=== PATIENT | male | born 1955 | race Caucasian/White ===

== ENCOUNTER 2017-07-11 14:33 | Emergency (ER) | payer MEDICAID, SELFPAY ==
[2017-07-11 14:34] VITALS: BP 145/79; PULSE 76; RESP 16; TEMP 36.5; O2SAT 97; BMI 24.5
--- NOTE | 2017-07-11 15:02 | CT_ITS ---
STUDY: CT BRAIN WITHOUT CONTRAST REASON FOR EXAM: Male, 62 years old. Right facial weakness with right facial droop. Slurred speech. RADIATION DOSAGE (If Supplied By Facility): CTDIvol = ( 44.99 ) mGy, DLP = ( 812.98 ) mGycm TECHNIQUE: Transaxial CT imaging of the brain was performed without administration of intravenous contrast material. Individualized dose optimization techniques were used for this CT. COMPARISON: Comparison is made with prior examination dated November 24, 2015. FINDINGS: Normal soft tissue structures. Normal calvarium. There is mild cerebral atrophy with widening of the extra-axial spaces and ventricular dilatation. Normal white matter tracts of the cerebral hemispheres. Normal basal ganglia and thalami. Normal brainstem. There is mild cerebellar atrophy. There is no intracranial hemorrhage. There are no findings of an acute ischemic infarction. Small mucosal polyp or cyst in the posterior aspect of the left maxillary sinus. CT/Brain/Head without Contrast IMPRESSION: Chronic involutional changes of the brain. Electronically Signed: Roscoe Coats MD at 15:42 EST Tel [phone], Service support ,
--- NOTE | 2017-07-11 15:09 | ED.DCSUM_ITS ---
- ER Visit Summary Date of Service: 07/11/17 Chief Complaint: Right facial drooping History of Present Illness: The patient is a 62 M presents with right facial droop pain occurring 2 days ago. Patient did not notice symptoms until today when he drink fluids and he was drooling. There is no paresthesias. No hemiparesis. On the phone they noted slurring. 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 Symptoms have all resolved. He is on Eliquis for history of atrial fibrillation. States he did miss 1 dose earlier this week, has been taken his medicines twice a day. No headache or visual changes. States his pain in his right eye. Denies any recent upper respiratory illness. No falls or head injuries. Physical Examination: General: Alert and oriented ?3, no acute distress HEENT: Normocephalic, atraumatic. Moist mucosa membranes. There is right-sided facial drooping. There is no forehead sparing. Patient unable to close his eyelid fully. Sensation is intact and symmetric bilaterally. Neck: supple, nontender. Cardiovascular: Irregular rate and rhythm, no murmurs Respiratory: Normal breath sounds, symmetric, no distress Abdomen: Soft, nontender, nondistended Extremities: Nontender, no edema, pulses intact ?4 Neuro: NIH equals 2 for right facial drooping Test Results: CT head: Chronic changes Emergency Department Course and Treatment: Patient exam concerns for Dow's palsy. However due to his multiple stroke history, I did obtain a CT scan which was negative for any acute changes. Symptoms were 2 days ago. He will be started on prednisone and valacyclovir. Patient was provided bacitracin eye ointment to the right eye to help with moisturization. Covering PCP will be contacted for update on treatment plan. Treatment Plan: [] Disposition: Discharge Impression: Right facial Dow's palsy This note was generated with [employer] dictation software. It may contain incorrect words, spelling, and punctuation that were not noted in review of the chart prior to signing ED Disposition - Plan for ED Patient: Disposition: Home or Assisted Living Chief Complaint: Neuro S/Sx Diagnosis: Dow's palsy Instructions: Dow's Palsy Prescriptions: Prednisone 60 mg PO DAILY #21 tablet Valacyclovir HCl [Valacyclovir] 1,000 mg PO TID #21 tablet Referrals: Aric Enriquez MD [Primary Care Provider] - 3-5 Days
--- NOTE | 2017-07-11 15:57 | NURSING ---
PAGED DR ZAPIEN, HE'S OUT. PAGED DR BRITO. SHE'S WITH A PATIENT. RN WILL HAVE HER CALL US BACK
[2017-07-11 17:04] VITALS: BP 114/86; PULSE 96; RESP 23; O2SAT 95
== END 2017-07-11 17:05 | disposition home or self-care (01) ==
PROVIDERS: Emergency Provider Emergency Medicine; Family Provider Family Medicine; PCP Family Medicine
DX: G51.0 Bell's palsy (principal); I25.10 Atherosclerotic heart disease of native coronary artery without angina pectoris; I25.2 Old myocardial infarction; Z86.73 Personal history of transient ischemic attack (TIA), and cerebral infarction without residual deficits; Z87.891 Personal history of nicotine dependence
CPT/HCPCS: 70450; 99283

== ENCOUNTER 2020-10-30 15:32 | Emergency (ER) | payer OTHER, MEDICARE, SELFPAY ==
[2020-10-30 15:33] VITALS: BP 135/88; PULSE 72; RESP 16; TEMP 36.4; O2SAT 98; BMI 29.5
[2020-10-30 15:44] VITALS: O2SAT 97
--- NOTE | 2020-10-30 16:21 | EKG12_ITS ---
Test Reason : SOB Blood Pressure : / mmHG Vent. Rate : 111 BPM Atrial Rate : 500 BPM P-R Int : 000 ms QRS Dur : 086 ms QT Int : 344 ms P-R-T Axes : 000 048 057 degrees QTc Int : 467 ms Atrial fibrillation Nonspecific ST and T wave abnormality Abnormal ECG Confirmed by GHADA NORIEGA, JOSSELYN ([id number]), editor continuity and script MARLENE CAMP ([id number]) on 11/03/2020 9:50:38 AM Referred By: REESE Confirmed By:JOSSELYN URRUTIA MD
--- NOTE | 2020-10-30 16:22 | EDS_ITS ---
HPI History of Present Illness Chief Complaint: Shortness of Breath Informant: patient Onset/Context/Timing Onset: Yesterday (evening) Context: gradual, onset and light activity (making dinner) Timing: Continuous Quality: Positive for Dyspnea on exertion and Orthopnea Current Severity: Mild Maximum Severity: Mild Worsened by: Exertion and Lying flat Relieved by: Rest (and sitting up) Associated Symptoms Negative for cough, fever, chills or sweats Chest Pain: Positive for None Narrative Narrative: Patient with a history of atrial fibrillation on Eliquis states he noticed feeling a little short of breath even at rest yesterday evening with light exertion. Even at rest he is feeling a little dyspnea, gets worse if he walks and if he lies back in his recliner, symptoms are not terrible but this is not normal for him. He states he has a history of congestive heart failure but he does not know how bad it is, he had an NV but did not have any PCI. He has a history of atrial fibrillation, he does not usually feel it, and denies feeling any palpitations since this started last night. No recent upper respiratory inf ection symptoms. History of COPD but denies feeling any wheezing, denies having any coughing at all recently. No leg pain or swelling. No history of DVTs or PEs even before he was on Eliquis for prophylaxis. He has not had COVID-19, has not had the vaccine, nor has he been around anyone with COVID-19 that he knows of recently. He denies any other symptoms. He states he has been compliant wit h all of his medications which include metoprolol, Cardizem both of which were taken this morning, and Eliquis. He has not run out of them recently. He has not seen his desktop manager for a while, Dr. James. [facility] Medical History Asthma Atrial fibrillation Chest pain COPD (chronic obstructive pulmonary disease) Former smoker Hypertension Myocardial infarct Seizures Stroke/cerebrovascular accident Home Medications cholecalciferol (vitamin D3) [Vitamin D3] 2,000 unit PO DAILY 04/26/15 [History Last Taken 11/24/15] acetaminophen 1,000 mg PO Q4H PRN PRN 12/12/15 [History Last Taken 12/12/15 11:30] diltiazem HCl 240 mg capsule,extended release 24 hr 240 mg PO DAILY #90 cap 02/28/20 [Rx Last Taken Unknown] metoprolol succinate 50 mg tablet,extended release 24 hr 50 mg PO DAILY #90 tab 02/28/20 [Rx Last Taken Unknown] furosemide 40 mg tablet 40 mg PO BID #180 tab 06/06/20 [Rx Last Taken Unknown] apixaban 5 mg tablet 5 mg PO BID #60 tab 06/30/20 [Rx Last Taken Unknown] divalproex [Depakote] 500 mg PO DAILY 10/30/20 [History Last Taken Unknown] Allergy/AdvReac Type Severity Reaction Status Date / Time Iodinated Contrast Media Allergy Severe NEEDS Verified 10/30/20 15:35 [CONTRASTS] FOLLOW-UP Social History (Updated 10/30/20 @ 16:[address] Tyrese Kaur MD) household members: none Smoking Status: Former smoker ROS ROS ED Constitutional Constitutional ED: Denies chills or fever(s) Eyes Eyes: Denies change in vision or diplopia ENT ENT ED: Denies rhinorrhea or sore throat Cardiovascular Cardiovascular: Reports orthopnea; Denies chest pain or palpitations Respiratory/Chest Respiratory/Chest: Reports as per HPI, dyspnea and orthopnea; Denies cough Gastrointestinal Gastrointestinal: Denies abdominal pain, diarrhea, nausea or vomiting Genitourinary Genitourinary ED: Denies dysuria or hematuria Musculoskeletal Musculoskeletal: Denies back pain or neck pain Integumentary Denies abscess or rash Neurologic Neurologic: Denies headache(s), paresthesias or weakness Psychiatric Psychiatric: Denies anxiety or suicidal thoughts EXAM Physical Exam Const Vital Signs: 10/30/20 15:33 10/30/20 15:44 10/30/20 17:33 Temperature 97.6 F L Temperature Source Temporal Pulse Rate 72 102 H Respiratory Rate 16 25 H Respiratory Effort Normal Respiratory Depth Normal Respiratory Pattern Normal Blood Pressure 135/88 H 118/89 H Blood Pressure Mean 103 98 Pulse Ox 98 97 Oxygen Delivery Method Room Air Room Air Room Air Positive well nourished and well developed Constitutional Narrative: well-appearing, conversive in full sentences General Appearance ED: well developed and NAD HEENT Reports moist mucous membranes normocephalic and atraumatic Eyes PERRL and EOMs intact bilaterally Neck full ROM and supple Resp normal respiratory effort and clear to auscultation bilaterally Cardio no murmurs Rate: tachycardic Rhythm: abnormal rhythm irregularly irregular GI non-tender and non-distended Auscultation: normoactive bowel sounds Palpation: soft Back/Spine no CVA tenderness General Back: other FROM Extremity normal to inspection and no calf tenderness General Extremety ED: Negative for edema, pulses abnormal or tenderness General Extremity: Negative for edema or pulses abnormal Neuro oriented x3, CN's II-XII intact bilaterally and no sensory deficits noted Sensorium / Orientation: awake and alert Motor Exam: strength 5/5 throughout Skin no rashes or lesions noted and no wounds MDM MDM MDM Narrative Medical decision making narrative: I reviewed the patient's old echocardiogram, the most recent one is from August 2014, it showed normal LV size and function with an EF of 60%, pulmonary hypertension at 36 mmHg, mild mitral valve insufficiency and mild to moderate tricuspid insufficiency without evidence of congestive heart failure at that time. Lab Data Labs: Laboratory Results - last 24 hr 10/30/20 10/30/20 10/30/20 16:30 16:30 16:30 WBC 8.1 RBC 4.68 Hgb 14.7 Hct 44.3 MCV 94.7 H MCH 31.4 MCHC 33.2 RDW Std Deviation 45.1 H RDW Coeff of Apolinar 12.9 Plt Count 295 MPV 10.5 Immature Gran % (Auto) 0.400 Neut % (Auto) 64.9 Lymph % (Auto) 21.4 Bath % (Auto) 11.9 H Eos % (Auto) 0.9 Baso % (Auto) 0.5 Absolute Neuts (auto) 5.3 Absolute Lymphs (auto) 1.74 Nucleated RBC % 0 Sodium 143 Potassium 3.7 Chloride 108 H Carbon Dioxide 26.0 Anion Gap 9 BUN 18 Creatinine 1.43 H Estim Creat Clear Calc 61.47 Est GFR (MDRD) Af Amer 64 Est GFR (MDRD) Non-Af 53 L BUN/Creatinine Ratio 12.6 Glucose 127 H Calcium 8.8 Troponin I < 0.015 B-Natriuretic Peptide 149.0 H Radiography Diagnostic Testing: Radiology Impression Chest X-Ray 10/30/20 16:45 IMPRESSION: No radiographic evidence of acute cardiopulmonary disease. at 1724 Reported and signed by: Indra Hall MD Electronically Signed: Indra Hall MD at 17:23 EDT Tel , Service support , EKG Initial EKG: Attestation: I personally reviewed and interpreted this EKG as follows: Interpretation: No Acute Injury Pattern and Atrial Fibrillation Prior EKG tracings: available for review Prior: Unchanged Discharge Plan Triage Chief Complaint: Shortness of Breath ED Provider: Tyrese Kaur Dx/Rx/DC Orders Clinical Impression: Atrial fibrillation with rapid ventricular response Instructions: ED AFIB Prescriptions: No Action cholecalciferol (vitamin D3) [Vitamin D3] 1,000 UNIT tablet 2,000 unit PO DAILY RF: 0 acetaminophen 500 MG tablet 1,000 mg PO Q4H PRN PRN (Reason: Pain) RF: 0 divalproex [Depakote] 500 mg tablet,delayed release (DR/EC) 500 mg PO DAILY RF: 0 metoprolol succinate 50 mg tablet extended release 24 hr 50 mg PO DAILY Qty: 90 RF: 3 diltiazem HCl 240 mg capsule,extended release 24hr 240 mg PO DAILY Qty: 90 RF: 3 furosemide 40 mg tablet 40 mg PO BID Qty: 180 RF: 3 apixaban 5 mg tablet 5 mg PO BID Qty: 60 RF: 11 Primary Care Provider: Aric Enriquez Referrals: Valentin James MD [STAFF PHYSICIAN] - 3-5 Days (Call for appointment to be seen within the next week) Aric Enriquez MD [Primary Care Provider] - Activity Restrictions/Additional Instructions: Since your testing was reassuring, you likely you are feeling short of breath because your A. fib was faster than usual. It was in the low 100s while resting in the emergency department prior to treatment with Cardizem. Your metoprolol and Cardizem are extended release medications, so do not take any extra ones for now, just take them as prescribed and follow-up to discuss how your symptoms go over the next couple days and whether a dosage change needs to occur, or other testing. Disposition Disposition: Home, self care
[2020-10-30] MEDS: dilTIAZem 25 MG/5 ML Vial 10 MG IV BOLUS (16:38)
[2020-10-30 16:44] LABS: Absolute Lymphocyte Count 1.74 X10^3/uL (0.83-4.51); Absolute Neutrophil Count 5.3 X10^3/uL (2.0-7.7); Basophil# 0.04 X10^3/uL; Basophil% 0.5 % (0-1); Eosinophil# 0.07 X10^3/uL; Eosinophils% 0.9 % (0-5); Hematocrit 44.3 % (40-54); Hemoglobin 14.7 g/dL (13.0-16.5); Lymphocyte # 1.74 X10^3/ul (0.83-4.51); Lymphocyte % 21.4 % (19-41); Mean Corp Hgb Conc 33.2 g/dL (32-36); Mean Corpuscular Hgb 31.4 pg (27.0-32.0); Mean Corpuscular Volume 94.7 fL (80-94); Mean Platelet Vol. 10.5 fl (6.2-12.0); Monocyte# 0.97 X10^3/uL; Monocyte% 11.9 % (0-10); NRBC Flagged by Analyzer 0 % (0-5); Neutrophil # 5.29 X10^3/uL (2.7-7.7); Neutrophil % 64.9 % (47-70); Platelet Count 295 K/mm3 (150-450); RBC Distribution Width CV 12.9 % (11.6-14.6); RBC Distribution Width SD 45.1 fl (35.1-43.9); Red Blood Count 4.68 M/mm3 (4.6-6.2); White Blood Count 8.1 K/mm3 (4.4-11.0)
--- NOTE | 2020-10-30 16:45 | RAD_ITS ---
HISTORY: sob EXAMINATION/TECHNIQUE: XR Chest 1 View: Portable AP upright chest x-ray COMPARISON: 01/27/16 FINDINGS: LINES/DEVICES: None. LUNGS: No consolidation, edema or effusion. No pneumothorax. MEDIASTINUM AND CARDIOVASCULAR STRUCTURES: Cardiac silhouette not enlarged. Central airways and mediastinal contour are unremarkable. BONES AND SOFT TISSUES: No acute bony abnormalities. RAD/Chest 1 View (Portable) IMPRESSION: No radiographic evidence of acute cardiopulmonary disease. at 1724 Reported and signed by: Indra Hall MD Electronically Signed: Indra Hall MD at 17:23 EDT Tel , Service support ,
[2020-10-30 16:58] LABS: Anion Gap 9 (5-15); BUN 18 mg/dL (7-18); BUN/Creat Ratio 12.6 RATIO (10-20); Calcium,Total 8.8 mg/dL (8.5-10.1); Chloride 108 mmol/L (98-107); Creatinine, Serum 1.43 mg/dL (0.70-1.30); EST Glomerular Filtration Rate 53 mL/min (>60); Est Glom Filt Rate - Afr Amer 64 mL/min (>60); Estimated Creatinine Clearance 61.47 ml/min; Glucose 127 mg/dL (74-106); Potassium 3.7 mmol/L (3.5-5.1); Sodium Level 143 mmol/L (136-145)
[2020-10-30 17:33] VITALS: BP 118/89; PULSE 102; RESP 25; O2SAT 97
[2020-10-30 19:18] VITALS: O2SAT 97
[2020-10-30 19:39] VITALS: BP 133/76; PULSE 106; RESP 19; O2SAT 95
== END 2020-10-30 19:42 | disposition home or self-care (01) ==
PROVIDERS: Emergency Provider Emergency Medicine; PCP Family Medicine
DX: I48.91 Unspecified atrial fibrillation (principal); J44.9 Chronic obstructive pulmonary disease, unspecified; I10 Essential (primary) hypertension; I25.2 Old myocardial infarction; Z86.73 Personal history of transient ischemic attack (TIA), and cerebral infarction without residual deficits; Z87.891 Personal history of nicotine dependence; Z79.01 Long term (current) use of anticoagulants
CPT/HCPCS: 71045; 80048; 83880; 84484; 85025; 93005; 96374; 99284; A4216

== ENCOUNTER 2022-03-06 10:01 | Emergency (ER) | payer MEDICARE, SELFPAY ==
[2022-03-06 10:03] VITALS: BP 113/71; PULSE 80; RESP 18; TEMP 36.2; O2SAT 99; BMI 28.9
--- NOTE | 2022-03-06 10:23 | CT_ITS ---
STUDY: CT BRAIN WITHOUT CONTRAST REASON FOR EXAM: Male, 67 years old. Headache RADIATION DOSAGE (If Supplied By Facility): CTDIvol = ( 44.99 ) mGy, DLP = ( 931.09 ) mGycm TECHNIQUE: Transaxial CT imaging of the brain was performed without administration of intravenous contrast material. Individualized dose optimization techniques were used for this CT. COMPARISON: 07/19/2017. FINDINGS: Normal soft tissue structures. Normal calvarium. Normal size ventricles and extra-axial spaces for the patient''s age. Old right posterior parietal and left centrum semiovale infarcts. The tran-white matter junction otherwise appears preserved. Normal basal ganglia and thalami. Normal brainstem. Normal cerebellum. There is no intracranial hemorrhage. There are no findings of an acute ischemic infarction. Atherosclerotic calcifications of the cavernous internal carotid arteries. Retention cyst in the left maxillary sinus. CT/Brain/Head without Contrast IMPRESSION: 1. Chronic involutional changes of the brain. 2. Old bilateral infarcts. 3. No acute intracranial process. Electronically Signed: Darrel Talley MD at 11:56 EDT ,
--- NOTE | 2022-03-06 10:29 | EX.ED.VIS.HA ---
HPI History of Present Illness Chief Complaint: Headache Narrative Narrative: Patient with past medical history of traumatic brain injury, atrial fibrillation, on Eliquis presents with migraine headache. He states he has history of migraine headache, and usually takes Tylenol. He is having one of his typical migraine headaches that is all over and throbbing. He states it started 2 to 3 days ago, he took his extra strength Tylenol, and it improved, but came back. He denies any paresthesias, no exacerbating or alleviating factors. No nausea or vomiting. He occasionally has blurred vision along with lightheadedness and dizziness. No other symptoms. However, this is typical for his headaches. [facility] Medical History Asthma Atrial fibrillation Chest pain COPD (chronic obstructive pulmonary disease) Former smoker Hypertension Myocardial infarct Seizures Stroke/cerebrovascular accident Home Medications cholecalciferol (vitamin D3) 25 mcg (1,000 unit) tablet (Vitamin D3) 2,000 unit PO DAILY 04/26/15 [History Last Taken 11/24/15] acetaminophen 500 mg tablet 1,000 mg PO Q4H PRN PRN Pain 12/12/15 [History Last Taken 12/12/15 11:30] divalproex 500 mg tablet,delayed release (Depakote) 500 mg PO DAILY 10/30/20 [History Last Taken Unknown] metoprolol succinate 50 mg tablet,extended release 24 hr 50 mg PO DAILY #90 tabs 02/23/21 [Rx Last Taken Unknown] diltiazem HCl 240 mg capsule,extended release 24 hr 240 mg PO DAILY #90 caps 05/26/21 [Rx Last Taken Unknown] apixaban 5 mg tablet 5 mg PO BID #60 tabs 06/23/21 [Rx Last Taken Unknown] furosemide 40 mg tablet 40 mg PO BID #180 tabs 08/24/21 [Rx Last Taken Unknown] Allergy/AdvReac Type Severity Reaction Status Date / Time Iodinated Contrast Media Allergy Severe Anaphylaxis Verified 03/06/22 10:03 [CONTRASTS] Social History household members: none Smoking Status: Former smoker ROS ROS ED ROS Narrative Constitutional: No fever, no chills. HEENT: No sore throat. No neck pain. No loss of vision. Occasional blurred vision. No rhinorrhea. Cardiovascular: No chest pain. No palpitations. No pedal edema. Respiratory: No cough, no shortness of breath. Abdominal: No abdominal pain. No nausea. No vomiting. Genitourinary: No dysuria. No hematuria. Musculoskeletal: No myalgias. No arthralgias. Neurologic: Positive headaches. No dizziness. Positive lightheadedness. Skin: No rash. No change in color. Psychiatric: No depression. No anxiety. EXAM Physical Exam Narrative Exam Narrative: Afebrile. Vital signs noted. HEENT: Normocephalic. Atraumatic. PERRL, EOMI. Neck soft and supple. No point tenderness or step off. Cardiovascular: Regular rate and rhythm. No murmurs, rubs, or gallops appreciated. Respiratory: No tachypnea. Lungs clear to auscultation bilaterally. Gastrointestinal: Abdomen soft, nontender, with normoactive bowel sounds. No rebound or guarding. Neurological: Awake. Alert. Oriented. At baseline for TBI. Nonfocal, nonlateralizing. Skin: No rash. Normal color. No pallor. Musculoskeletal: No pedal edema. Full range of motion extremities. Const Vital Signs: 03/06/22 10:03 03/06/22 11:41 Temperature 97.1 F L Temperature Source Temporal Pulse Rate 80 64 Respiratory Rate 18 16 Blood Pressure 113/71 130/85 H Blood Pressure Mean 85 100 Pulse Ox 99 97 Oxygen Delivery Method Room Air Room Air [facility] MDM Narrative Medical decision making narrative: Patient states he has never been to the emergency department for analgesia from his migraines. He rated his headache at 9 out of 10. He will be administered normal saline 1 L intravenously along with Compazine and Benadryl. As he is on Eliquis for atrial fibrillation, I will obtain CT imaging of his brain to ensure that there is no evidence of acute hemorrhage. He denies any trauma. Basic laboratory work is grossly unremarkable with a normal white count of 7.7, hemoglobin normal at 14.7 with normal platelet count of 230. Electrolyte panel shows potassium slightly low at 3.4, BUN of 23 with a creatinine of 1.21. He was bolused normal saline intravenously. Glucose of 112 with a normal anion gap of 10. CT of the brain shows chronic involutional changes with old bilateral infarcts but no acute intracranial hemorrhage. Upon repeat examination after Compazine and Benadryl, he states his headache has been relieved. At this point in time, I feel he can be discharged safely home with follow-up. Return instructions to the emergency department were reviewed. Disposition is discharged home in improved and stable condition. Lab Data Attestation: I reviewed the patient's lab results. Labs: Laboratory Results - last 24 hr 03/06/22 03/06/22 11:05 11:05 WBC 7.7 RBC 4.57 L Hgb 14.7 Hct 42.8 MCV 93.7 MCH 32.2 H MCHC 34.3 RDW Std Deviation 43.5 RDW Coeff of Apolinar 12.7 Plt Count 230 MPV 10.3 Immature Gran % (Auto) 0.500 Neut % (Auto) 52.2 Lymph % (Auto) 33.2 Tripp % (Auto) 11.8 H Eos % (Auto) 1.8 Baso % (Auto) 0.5 Absolute Neuts (auto) 4.0 Absolute Lymphs (auto) 2.57 Nucleated RBC % 0 Sodium 142 Potassium 3.4 L Chloride 104 Carbon Dioxide 28.0 Anion Gap 10 BUN 23 H Creatinine 1.21 Estim Creat Clear Calc 70.76 Est GFR (MDRD) Af Amer 77 Est GFR (MDRD) Non-Af 64 BUN/Creatinine Ratio 19.0 Glucose 112 H Calcium 9.7 Radiography Diagnostic Testing: Clinical Impression(s) from Imaging Studies Brain CT 03/06/22 10:23 IMPRESSION: 1. Chronic involutional changes of the brain. 2. Old bilateral infarcts. 3. No acute intracranial process. Electronically Signed: Darrel Talley MD at 11:56 EDT , Discharge Plan Triage Chief Complaint: Headache ED Provider: Pablito Penaloza Dx/Rx/DC Orders Clinical Impression: Migraine headache, Current use of [facility] anticoagulation Instructions: ED, Migraine (Classical) Prescriptions: No Action cholecalciferol (vitamin D3) [Vitamin D3] 1,000 UNIT tablet 2,000 unit PO DAILY Label Comments: supplement acetaminophen 500 MG tablet 1,000 mg PO Q4H PRN PRN (Reason: Pain) divalproex [Depakote] 500 mg tablet,delayed release (DR/EC) 500 mg PO DAILY metoprolol succinate 50 mg tablet extended release 24 hr 50 mg PO DAILY Qty: 90 3RF diltiazem HCl 240 mg capsule,extended release 24hr 240 mg PO DAILY Qty: 90 3RF Label Comments: heart apixaban 5 mg tablet 5 mg PO BID Qty: 60 11RF Label Comments: blood thinner furosemide 40 mg tablet 40 mg PO BID Qty: 180 3RF Primary Care Provider: Aric Enriquez Referrals: Aric Enriquez MD [Primary Care Provider] - 3-5 Days if not improving Disposition Disposition: Home, Self Care
[2022-03-06] MEDS: proCHLORPERazine 10 MG/2 ML Vial IV (11:01)
[2022-03-06] MEDS: DiphenhydrAMINE 50 MG/ML Syringe 25 MG IV (11:02)
[2022-03-06] MEDS: 0.9% Normal Saline 1,000 ML 999 ML IV (11:03)
[2022-03-06 11:18] LABS: Absolute Lymphocyte Count 2.57 X10^3/uL (0.83-4.51); Basophil# 0.04 X10^3/uL; Basophil% 0.5 % (0-1); Eosinophil# 0.14 X10^3/uL; Eosinophils% 1.8 % (0-5); Hematocrit 42.8 % (40-54); Hemoglobin 14.7 g/dL (13.0-16.5); Lymphocyte # 2.57 X10^3/ul (0.83-4.51); Lymphocyte % 33.2 % (19-41); Mean Corp Hgb Conc 34.3 g/dL (32-36); Mean Corpuscular Hgb 32.2 pg (27.0-32.0); Mean Corpuscular Volume 93.7 fL (80-94); Mean Platelet Vol. 10.3 fl (6.2-12.0); Monocyte# 0.91 X10^3/uL; Monocyte% 11.8 % (0-10); NRBC Flagged by Analyzer 0 % (0-5); Neutrophil # 4.04 X10^3/uL (2.7-7.7); Neutrophil % 52.2 % (47-70); Platelet Count 230 K/mm3 (150-450); RBC Distribution Width CV 12.7 % (11.6-14.6); RBC Distribution Width SD 43.5 fl (35.1-43.9); Red Blood Count 4.57 M/mm3 (4.6-6.2); White Blood Count 7.7 K/mm3 (4.4-11.0)
[2022-03-06 11:36] LABS: Anion Gap 10 (5-15); BUN 23 mg/dL (7-18); Calcium,Total 9.7 mg/dL (8.5-10.1); Chloride 104 mmol/L (98-107); Creatinine, Serum 1.21 mg/dL (0.70-1.30); EST Glomerular Filtration Rate 64 mL/min (>60); Est Glom Filt Rate - Afr Amer 77 mL/min (>60); Estimated Creatinine Clearance 70.76 ml/min; Glucose 112 mg/dL (74-106); Potassium 3.4 mmol/L (3.5-5.1); Sodium Level 142 mmol/L (136-145)
[2022-03-06 11:41] VITALS: BP 130/85; PULSE 64; RESP 16; O2SAT 97
[2022-03-06 12:58] VITALS: BP 116/90; PULSE 80; RESP 16; O2SAT 98
== END 2022-03-06 12:59 | disposition home or self-care (01) ==
PROVIDERS: Emergency Provider Emergency Medicine; PCP Family Medicine; Visit Provider Emergency Medicine
DX: G43.909 Migraine, unspecified, not intractable, without status migrainosus (principal); J44.9 Chronic obstructive pulmonary disease, unspecified; I48.91 Unspecified atrial fibrillation; G40.909 Epilepsy, unspecified, not intractable, without status epilepticus; I10 Essential (primary) hypertension; I25.2 Old myocardial infarction; Z79.01 Long term (current) use of anticoagulants; Z87.820 Personal history of traumatic brain injury; Z86.73 Personal history of transient ischemic attack (TIA), and cerebral infarction without residual deficits; Z79.899 Other long term (current) drug therapy; Z87.891 Personal history of nicotine dependence
CPT/HCPCS: 70450; 80048; 85025; 99283; J7030; A4216

== ENCOUNTER → 2023-06-23 | Outpatient (CLI) | payer MEDICARE, SELFPAY ==
[2023-06-23 16:20] LABS: Absolute Lymphocyte Count 2.02 X10^3/uL (0.83-4.51); Basophil# 0.05 X10^3/uL; Basophil% 0.7 % (0-1); Eosinophil# 0.07 X10^3/uL; Hematocrit 48.6 % (40-54); Hemoglobin 15.8 g/dL (13.0-16.5); Lymphocyte # 2.02 X10^3/ul (0.83-4.51); Lymphocyte % 28.9 % (19-41); Mean Corp Hgb Conc 32.5 g/dL (32-36); Mean Corpuscular Hgb 30.4 pg (27.0-32.0); Mean Corpuscular Volume 93.6 fL (80-94); Mean Platelet Vol. 11.4 fl (6.2-12.0); Monocyte# 0.82 X10^3/uL; Monocyte% 11.7 % (0-10); NRBC Flagged by Analyzer 0 % (0-5); Neutrophil # 3.98 X10^3/uL (2.7-7.7); Neutrophil % 57.1 % (47-70); Platelet Count 219 K/mm3 (150-450); RBC Distribution Width SD 44.3 fl (35.1-43.9); Red Blood Count 5.19 M/mm3 (4.6-6.2)
[2023-06-23 17:03] LABS: Anion Gap 4 (5-15); BUN 21 mg/dL (7-18); BUN/Creat Ratio 13.2 RATIO (10-20); Calcium,Total 9.1 mg/dL (8.5-10.1); Chloride 104 mmol/L (98-107); Creatinine, Serum 1.59 mg/dL (0.70-1.30); EST Glomerular Filtration Rate 47 mL/min (>60); Est Glom Filt Rate - Afr Amer 56 mL/min (>60); Glucose 99 mg/dL (74-106); Potassium 4.2 mmol/L (3.5-5.1); Sodium Level 139 mmol/L (136-145)
== END | disposition home or self-care (01) ==
PROVIDERS: PCP Family Medicine; Referring Provider Nurse Practitioner Gerontology; Visit Provider Nurse Practitioner Gerontology
DX: I10 Essential (primary) hypertension (principal)
CPT/HCPCS: 36415; 80048; 85025

== ENCOUNTER 2024-07-09 08:20 | Inpatient (IN) | payer MEDICARE, MEDICAID, SELFPAY ==
[2024-07-09] VITALS (18 sets, daily range): BP systolic 109–153; BP diastolic 69–105; PULSE 60–155; RESP 13–19; TEMP 36.4–36.9; O2SAT 88–99; BMI 29.5; BMI 29.2
--- NOTE | 2024-07-09 08:42 | EKG12_ITS ---
Test Reason : TACHY Blood Pressure : */* mmHG Vent. Rate : 163 BPM Atrial Rate : * BPM P-R Int : * ms QRS Dur : 82 ms QT Int : 264 ms P-R-T Axes : * 61 -32 degrees QTcB Int : 434 ms Critical Test Result: High HR Atrial fibrillation with rapid ventricular response ST depression, consider subendocardial injury Abnormal QRS-T angle, consider primary T wave abnormality Abnormal ECG Confirmed by Олег Andrade ([id number]), editor managing newspaper MARLENE CAMP ([id number]) on 07/10/2024 10:05:21 AM Referred By: MELY Confirmed By: Олег Andrade
--- NOTE | 2024-07-09 08:42 | RAD_ITS ---
PROCEDURE: CHEST 1 VIEW (PORTABLE) REASON FOR EXAM: Shortness of breath. TECHNIQUE: Frontal view of the chest. COMPARISON: Chest x-ray 10/30/2020 RAD/Chest 1 View (Portable) IMPRESSION: The cardiomediastinal silhouette is stable, without evidence of cardiomegaly. At the medial right lung base, an area of airspace disease is concerning for th e presence of pneumonitis, less likely atelectasis. No pleural effusion or pneumothorax is noted. Prior right rib fractures noted. No acute osseous process is seen. Reading Location: [id number]
--- NOTE | 2024-07-09 08:42 | RAD_ITS ---
EXAM: ANKLE MIN 3 VIEWS CLINICAL HISTORY: Pain following injury. COMPARISON: None. TECHNIQUE: Three views were obtained. FINDINGS: Diffuse soft tissue swelling. No fracture is seen. Small plantar spur. RAD/Ankle min 3 Views IMPRESSION: Diffuse soft tissue swelling. Reading Location: [place] [id number]
--- NOTE | 2024-07-09 08:42 | RAD_ITS ---
EXAM: FOOT MIN 3 VIEWS CLINICAL HISTORY: Pain following injury. COMPARISON: None TECHNIQUE: Three views were obtained. FINDINGS: Diffuse dorsal soft tissue swelling. RAD/Foot min 3 Views IMPRESSION: Diffuse dorsal soft tissue swelling. Reading Location: [place] [address]
--- NOTE | 2024-07-09 08:46 | EDS_ITS ---
HPI History of Present Illness Chief Complaint: Other, Pain/Inj Informant: patient Onset/Context/Timing Onset: Days (3) Narrative Narrative: 69-year-old male presenting with bilateral foot and ankle pain. States this started 3 days ago. Denies trauma. States he is unable to walk secondary to pain. Denies fever or recent illness. He is on Eliquis for history of atrial fibrillation and states he has been taking his medications except for today. Denies chest pain or shortness of breath. Denies palpitations. Denies lightheadedness or syncope. Prior similar symptoms: Yes PFSH [facility] Medical History Essential hypertension Hx of thyroiditis Type 2 diabetes mellitus TIA (transient ischemic attack) [place] (myocardial infarction) Hyperlipidemia Atrial fibrillation with rapid ventricular response Former smoker COPD (chronic obstructive pulmonary disease) Asthma Seizures Stroke/cerebrovascular accident Myocardial infarct Chest pain Atrial fibrillation Non compliance with medical treatment History of embolic stroke LAE (left atrial enlargement) Chronic atrial fibrillation Elevated serum creatinine Mitral regurgitation Pulmonary HTN Tricuspid regurgitation Cerebrovascular disease Valvular heart disease Skull fracture Partial epilepsy with impairment of consciousness Migraine headache Syncope and collapse Home Medications ?Medication ?Instructions ?Recorded ?Last Taken ?Type divalproex 500 mg tablet,delayed 500 mg PO BID 3 Unknown History release (Depakote) metformin 500 mg tablet,extended 500 mg PO DAILY 11/15 Unknown History release 24 hr acetaminophen 500 mg tablet 1,000 mg PO Q6H PRN Pain 0 11/17/22 Unknown History furosemide 40 mg tablet 40 mg PO DAILY 11/17/22 Unkn own History blood pressure test kit-[facility] #1 ea 06/23/23 Unknown Rx diltiazem HCl 240 mg 240 mg PO DAILY #90 caps 01/20 Unknown Rx capsule,extended release 24 hr metoprolol succinate 50 mg 50 mg PO DAILY #90 tabs 12/20 Unknown Rx tablet,extended release 24 hr (Toprol XL) apixaban 5 mg tablet 5 mg PO BID #180 tabs Unknown Rx lisinopril 2.5 mg tablet 2.5 mg PO DAILY 07/09/24 Unk nown History methocarbamol 500 mg tablet 500 mg PO Q8H 07/09/24 Unk nown History Allergy/AdvReac Type Severity Reaction Status Date / Time Iodinated Contrast Media Allergy Severe Anaphylaxis Verified 07/09/24 08:27 (CONTRASTS) Family History Mother Alzheimer disease Breast cancer Atrial fibrillation Father Hypertension Hyperlipidemia Atrial fibrillation Polio Brother Heart disease Sister Breast cancer Son Seizures Autism Surgical History History of left heart catheterization (LHC) (~09/08/15) Social History household members: none Smoking Status: Former smoker how long ago did patient quit smokin alcohol intake: never substance use type: does not use caffeine: No ROS ROS ED Constitutional Constitutional ED: Denies chills or fever(s) Eyes Eyes: Denies change in vision ENT ENT ED: Denies rhinorrhea or sore throat Cardiovascular Cardiovascular: Denies chest pain or palpitations Respiratory/Chest Respiratory/Chest: Denies cough or dyspnea Gastrointestinal Gastrointestinal: Denies abdominal pain, diarrhea, nausea or vomiting Genitourinary Genitourinary ED: Denies dysuria Musculoskeletal Musculoskeletal: Reports other Details: bilateral foot and ankle pain Integumentary Denies rash Neurologic Neurologic: Denies headache(s) Psychiatric Psychiatric: Denies suicidal thoughts EXAM Physical Exam Const Vital Signs: 07/09/24 08:21 07/09/24 08:49 07/09/24 10:23 Temperature 97.5 F L Temperature Source Oral Pulse Rate 155 H 122 H Respiratory Rate 19 H 18 Respiratory Effort Normal Respiratory Pattern Normal Blood Pressure 123/83 H 118/78 Blood Pressure Mean 96 91 Pulse Ox 97 96 Oxygen Delivery Method Room Air Room Air Positive unkempt General Appearance ED: unkempt HEENT Reports dry mucous membranes Mouth ED: Yes dry mucous membranes Mouth: dry mucous membranes Eyes PERRL and EOMs intact bilaterally Resp normal respiratory effort Auscultation: diminished lung sounds Cardio Rate: tachycardic Rhythm: abnormal rhythm irregularly irregular GI normal to inspection, nondistended, normoactive bowel sounds Back/Spine no CVA tenderness Extremity Extremity Narrative: diffuse bilateral foot pain and swelling. Mild erythema bilaterally, no wounds. Dopplerable DP pulses bilaterally. General Extremety ED: Yes edema General Extremity: edema bilateral Neuro oriented x3 and CN's II-XII intact bilaterally Sensorium / Orientation: alert Psych mental status grossly normal Appearance: unkempt Skin no rashes or lesions noted MDM MDM MDM Narrative Medical decision making narrative: Patient is IV fluids, morphine, Zofran. EKG shows A-fib with RVR rate of 163. He was given Cardizem IV. CBC shows white count 12.0. Chemistries showed potassium 3.1, BUN 20, creatinine 1.38. Glucose 117. Lactic acid normal. Troponin is negative. Bilateral foot and ankle x-rays read by myself and radiology show diffuse soft tissue swelling. Chest x-ray read by myself and radiology shows shows pneumonitis, less likely atelectasis. D-dimer was elevated. Patient has anaphylactic reaction to contrast. He has no chest pain or shortness of breath. No hypoxia. Low suspicion for PE. He is on Eliquis but states that he missed 1 dose of Eliquis. Venous Doppler negative susy aterally for DVT. Chest x-ray concerning for pneumonia will give Rocephin, Zithromax which will cover lower extremity cellulitis as well. With patient's inability to ambulate, A-fib with RVR, concern for pneumonia, discussed with hospitalist for admission. Dr. Ascencio accepted admission. History & Record Review Discussion w/independent historian: Patient Additional record(s) reviewed:: Prior labs Lab Data Attestation: I reviewed the patient's lab results. Labs: Laboratory Results - last 24 hr 07/09/24 07/09/24 08:29 08:50 WBC 12.0 H RBC 4.16 L Hgb 12.7 L Hct 39.0 L MCV 93.8 MCH 30.5 MCHC 32.6 RDW Std Deviation 45.6 H RDW Coeff of Apolinar 13.2 Plt Count 325 MPV 11.5 Immature Gran % (Auto) 0.700 Neut % (Auto) 76.5 H Lymph % (Auto) 8.4 L [place] % (Auto) 14.0 H Eos % (Auto) 0.1 Baso % (Auto) 0.3 Absolute Neuts (auto) 9.2 H Absolute Lymphs (auto) 1.01 Nucleated RBC % 0 Diff Path Review May foll D-Dimer Quant (PE/DVT) 1.11 H* Sodium 141 Potassium 3.1 L Chloride 104 Carbon Dioxide 27.0 Anion Gap 10 BUN 20 H Creatinine 1.38 H Estim Creat Clear Calc 66.83 Est GFR (MDRD) Af Amer 66 Est GFR (MDRD) Non-Af 55 L BUN/Creatinine Ratio 14.5 Glucose 117 H Lactic Acid 1.4 Calcium 9.3 Total Bilirubin 0.80 AST 11 L ALT 16 Alkaline Phosphatase 68 Troponin I High Sens 15 Total Protein 7.3 Albumin 2.9 L Globulin 4.4 H Albumin/Globulin Ratio 0.7 L Radiography Chest X-Ray - ED: 1 View, Read by ED Physician, Read by Radiologist and Right Infiltrate Diagnostic Testing: Clinical Impression(s) from Imaging Studies Ankle X-Ray 07/09/24 08:42 IMPRESSION: Diffuse soft tissue swelling. Reading Location: [facility]- Chest X-Ray 07/09/24 08:42 IMPRESSION: The cardiomediastinal silhouette is stable, without evidence of cardiomegaly. At the medial right lung base, an area of airspace disease is concerning for the presence of pneumonitis, less likely atelectasis. No pleural effusion or pneumothorax is noted. Prior right rib fractures noted. No acute osseous process is seen. Reading Location: [address] Foot X-Ray 07/09/24 08:42 IMPRESSION: Diffuse dorsal soft tissue swelling. Reading Location: [place] [address] EKG Initial EKG: Attestation: I personally reviewed and interpreted this EKG as follows: Interpretation: Atrial Fibrillation Comments: Atrial fibrillation with RVR, rate 163 Management Discussion w/another healthcare provider: Hospitalist Discharge Plan Triage Chief Complaint: Other, Pain/Inj ED Provider: Priscilla Reynaga Dx/Rx/DC Orders Clinical Impression: Atrial fibrillation with rapid ventricular response, Bilateral leg and foot pain Prescriptions: No Action metformin 500 mg tablet extended release 24 hr 500 mg PO DAILY Patient Comments: take 1 tablet by mouth once daily with breakfast furosemide 40 mg tablet 40 mg PO DAILY (DME) blood pressure test kit-medium Kit See Rx Instructions .Route Qty: 1 0RF Rx Instructions: As directed acetaminophen 500 mg tablet 1,000 mg PO Q6H PRN (Reason: Pain) divalproex [Depakote] 500 mg tablet,delayed release (DR/EC) 500 mg PO BID methocarbamol 500 mg tablet 500 mg PO Q8H lisinopril 2.5 mg tablet 2.5 mg PO DAILY diltiazem HCl 240 mg capsule,extended release 24hr 240 mg PO DAILY Qty: 90 3RF Patient Comments: heart metoprolol succinate [Toprol XL] 50 mg tablet extended release 24 hr 50 mg PO DAILY Qty: 90 3RF apixaban 5 mg tablet 5 mg PO BID Qty: 180 3RF Patient Comments: blood thinner Primary Care Provider: Aric Enriquez Referrals: Aric Enriquez MD [Primary Care Provider] - Print Language: Pakistani Disposition Disposition: Acute Care Hospital [facility]
[2024-07-09] MEDS: 0.9% Normal Saline (500mL Bag) 500 ML 1000 ML IV (08:54)
[2024-07-09] MEDS: Morphine 4 MG/ML Syringe IV (08:54)
[2024-07-09] MEDS: Ondansetron 4 MG/2 ML Vial IV (08:54)
[2024-07-09] MEDS: dilTIAZem 25 MG/5 ML Vial 20 MG IV BOLUS ×2 (08:55→16:31)
[2024-07-09 09:03] LABS: Absolute Lymphocyte Count 1.01 X10^3/uL (0.83-4.51); Absolute Neutrophil Count 9.2 X10^3/uL (2.0-7.7); Basophil# 0.03 X10^3/uL; Basophil% 0.3 % (0-1); Eosinophil# 0.01 X10^3/uL; Eosinophils% 0.1 % (0-5); Hemoglobin 12.7 g/dL (13.0-16.5); Lymphocyte # 1.01 X10^3/ul (0.83-4.51); Lymphocyte % 8.4 % (19-41); Mean Corp Hgb Conc 32.6 g/dL (32-36); Mean Corpuscular Hgb 30.5 pg (27.0-32.0); Mean Corpuscular Volume 93.8 fL (80-94); Mean Platelet Vol. 11.5 fl (6.2-12.0); Monocyte# 1.68 X10^3/uL; NRBC Flagged by Analyzer 0 % (0-5); Neutrophil # 9.15 X10^3/uL (2.7-7.7); Neutrophil % 76.5 % (47-70); POSITIVE DIFFERENTIAL YES; Platelet Count 325 K/mm3 (150-450); RBC Distribution Width CV 13.2 % (11.6-14.6); RBC Distribution Width SD 45.6 fl (35.1-43.9); Red Blood Count 4.16 M/mm3 (4.6-6.2)
[2024-07-09 09:07] LABS: Differential Indicated SCAN CRITERIA MET
[2024-07-09 09:26] LABS: D-Dimer Quantitative (DVT/PE) 1.11 FEU/ug/m (0.27-0.49)
[2024-07-09 09:27] LABS: Lactic Acid 1.4 mmol/L (0.4-1.9)
[2024-07-09 09:27] LABS: ALB/GLOB Ratio 0.7 RATIO (0.9-2.4); AST(SGOT) 11 U/L (15-37); Alanine Aminotransfer ALT/SGPT 16 U/L (16-61); Albumin, Serum 2.9 g/dL (3.2-5.0); Alkaline Phosphatase 68 U/L (45-117); Anion Gap 10 (5-15); BUN 20 mg/dL (7-18); BUN/Creat Ratio 14.5 RATIO (10-20); Calcium,Total 9.3 mg/dL (8.5-10.1); Chloride 104 mmol/L (98-107); Creatinine, Serum 1.38 mg/dL (0.70-1.30); EST Glomerular Filtration Rate 55 mL/min (>60); Est Glom Filt Rate - Afr Amer 66 mL/min (>60); Estimated Creatinine Clearance 66.83 ml/min; Globulin 4.4 g/dL (2.2-4.2); Glucose 117 mg/dL (74-106); Potassium 3.1 mmol/L (3.5-5.1); Protein, Total 7.3 g/dL (6.4-8.2); Sodium Level 141 mmol/L (136-145); Troponin-I HS (w/2H Reflex) 15 pg/mL (3.0-78.0)
--- NOTE | 2024-07-09 09:30 | VDLE_ITS ---
Reason For Study Reason For Study: Elevated d-dimer RIGHT LEFT GSV is normal. GSV is normal. CFV is compressible, spontaneous, phasic, competent CFV is compressible, spontaneous, phasic, competent, and demonstrates normal augmentation. and demonstrates normal augmentation. FV is compressible, spontaneous, phasic, competent FV is compressible, spontaneous, phasic, competent and demonstrates normal augmentation. and demonstrates normal augmentation. POP V is compressible, spontaneous, phasic, competent POP V is compressible, spontaneous, phasic, competent and demonstrates normal augmentation. and demonstrates normal augmentation. T/P Trunk is compressible. T/P Trunk is compressible. PTV is compressible. PTV is compressible. RT PerV is compressible. LT PerV is compressible. Procedure This is a venous duplex using B-mode, color flow and spectral Doppler. Exam performed portable in ED. A preliminary report was called and/or faxed to Dr. Reynaga. VL/Venous Duplex US - Noam Extrem Interpretation Summary Deep veins of the bilateral lower extremities are patent and compressible segme ntally. There is no evidence of bilateral lower extremity deep vein thrombosis. The bilateral great saphenous veins appea r patent and compressible segmentally. Ordering Physician: Priscilla Reynaga Referring Physician: Aric Enriquez Performed By: Damaris Dudley RVT
[2024-07-09] MEDS: dilTIAZem 25 MG/5 ML Vial 10 MG IV BOLUS (10:14)
[2024-07-09] MEDS: Ceftriaxone 1 GM/50 ML BAG IV (10:16)
--- NOTE | 2024-07-09 10:39 | PCM.HP.STD ---
HPI - General General Date of Service: 07/09/24 HPI Narrative REINA AKHTAR, is a 69 M who presents with ankle pain. Noted there is in both ankles. Denies any trauma or falls. States he was unable to put any weight on either of his ankles. Stated that he had a similar event when he was a child but never had a diagnosis. No fever or chills. Presented emergency room is found to be in atrial fibrillation with RVR with heart rate of 155. He received a total of 30 mg of IV diltiazem and his heart rate has improved. Patient states that he has been compliant with his medications. He did have a D-dimer of 1.11 but states that he is compliant with his medications with the exception did not take his medications this morning due to the severe ankle pain. [facility] Medical History Essential hypertension Hx of thyroiditis Type 2 diabetes mellitus TIA (transient ischemic attack) [place] (myocardial infarction) Hyperlipidemia Atrial fibrillation with rapid ventricular response Former smoker COPD (chronic obstructive pulmonary disease) Asthma Seizures Stroke/cerebrovascular accident Myocardial infarct Chest pain Atrial fibrillation Non compliance with medical treatment History of embolic stroke LAE (left atrial enlargement) Chronic atrial fibrillation Elevated serum creatinine Mitral regurgitation Pulmonary HTN Tricuspid regurgitation Cerebrovascular disease Valvular heart disease Skull fracture Partial epilepsy with impairment of consciousness Migraine headache Syncope and collapse Home Medications ?Medication ?Instructions ?Recorded ?Last Taken ?Type divalproex 500 mg tablet,delayed 500 mg PO BID 11/15/22 Unknown History release (Depakote) metformin 500 mg tablet,extended 500 mg PO DAILY 11/15/22 Unknown History release 24 hr acetaminophen 500 mg tablet 1,000 mg PO Q6H PRN Pain 11/17/22 Unknown History furosemide 40 mg tablet 40 mg PO DAILY 11/17/22 Unknown History blood pressure test kit-medium #1 ea 06/23/23 Unknown Rx diltiazem HCl 240 mg 240 mg PO DAILY #90 caps 12/05/23 Unknown Rx capsule,extended release 24 hr metoprolol succinate 50 mg 50 mg PO DAILY #90 tabs 01/04/24 Unknown Rx tablet,extended release 24 hr (Toprol XL) apixaban 5 mg tablet 5 mg PO BID #180 tabs 05/18/24 Unknown Rx lisinopril 2.5 mg tablet 2.5 mg PO DAILY 07/09/24 Unknown History methocarbamol 500 mg tablet 500 mg PO Q8H 07/09/24 Unknown History Allergy/AdvReac Type Severity Reaction Status Date / Time Iodinated Contrast Media Allergy Severe Anaphylaxis Verified 07/09/24 08:27 (CONTRASTS) Family History Mother Alzheimer disease Breast cancer Atrial fibrillation Father Hypertension Hyperlipidemia Atrial fibrillation Polio Brother Heart disease Sister Breast cancer Son Seizures Autism Surgical History History of left heart catheterization (LHC) (~09/08/15) Social History household members: none Smoking Status: Former smoker how long ago did patient quit smokin alcohol intake: never substance use type: does not use caffeine: No ROS ROS Narrative No palpitations. No chest pain. No shortness of breath. All review of systems were negative except as mentioned above in the history of present illness and the other review of systems. Vital Signs Vital Signs Vital Signs: 07/09/24 08:21 07/09/24 08:49 07/09/24 10:23 Temperature 36.4 C L Temperature Source Oral Pulse Rate 155 H 122 H Respiratory Rate 19 H 18 Respiratory Effort Normal Respiratory Pattern Normal Blood Pressure 123/83 H 118/78 Blood Pressure Mean 96 91 Pulse Ox 97 96 Oxygen Delivery Method Room Air Room Air Weight Weight: 104.1 kg Body Mass Index (BMI) 29.5 Physical Exam Narrative - Physical Exam General: Alert, Oriented x3, Cooperative HEENT: Atraumatic, PERRLA, EOMI, Normocephalic Oral: Moist Mucosa, No Gingival or Mucosal Lesions/ Ulcerations Neck: Supple, No JVD, Negative Carotid Bruits Lungs: Clear to auscultation, Normal air movement Cardiovascular: Regular rate, Normal S1, Normal S2, No murmurs Abdomen: Bowel Sounds Present, Soft, Non Tender, Non-Distended, No Hepato-splenomegaly Extremities: No clubbing, No cyanosis, No edema, Capillary Refill Less than 3 Seconds Skin: No rashes, No breakdown Musculoskeletal: Bilateral ankle tenderness medially bilaterally as well as laterally on his left. Slight lower extremity edema but nonpitting. Neurological: Neuro grossly intact Psych/Mental Status: Normal Affect, Appropriate Results Lab / Micro Data Attestation: I reviewed the patient's lab results. 07/09/24 08:29 07/09/24 08:29 Labs: Laboratory Results - last 24 hr 07/09/24 08:29: WBC 12.0 H, RBC 4.16 L, Hgb 12.7 L, Hct 39.0 L, MCV 93.8, MCH 30.5, MCHC 32.6, RDW Std Deviation 45.6 H, RDW Coeff of Apolinar 13.2, Plt Count 325, MPV 11.5, Immature Gran % (Auto) 0.700, Neut % (Auto) 76.5 H, Lymph % (Auto) 8.4 L, [place] % (Auto) 14.0 H, Eos % (Auto) 0.1, Baso % (Auto) 0.3, Absolute Neuts (auto) 9.2 H, Absolute Lymphs (auto) 1.01, Nucleated RBC % 0, Diff Path Review September, D-Dimer Quant (PE/DVT) 1.11 H*, Sodium 141, Potassium 3.1 L, Chloride 104, Carbon Dioxide 27.0, Anion Gap 10, BUN 20 H, Creatinine 1.38 H, Estim Creat Clear Calc 66.83, Est GFR (MDRD) Af Amer 66, Est GFR (MDRD) Non-Af 55 L, BUN/Creatinine Ratio 14.5, Glucose 117 H, Calcium 9.3, Total Bilirubin 0.80, AST 11 L, ALT 16, Alkaline Phosphatase 68, Troponin I High Sens 15, Total Protein 7.3, Albumin 2.9 L, Globulin 4.4 H, Albumin/Globulin Ratio 0.7 L 07/09/24 08:50: Lactic Acid 1.4 EKG Initial EKG: Attestation: I personally reviewed and interpreted this EKG as follows: Prior EKG tracings: available for review EKG Rhythm Intrepretation: Atrial Fibrillation Imaging Radiology Impression Ankle X-Ray 07/09/24 08:42 IMPRESSION: Diffuse soft tissue swelling. Reading Location: [facility] Chest X-Ray 07/09/24 08:42 IMPRESSION: The cardiomediastinal silhouette is stable, without evidence of cardiomegaly. At the medial right lung base, an area of airspace disease is concerning for the presence of pneumonitis, less likely atelectasis. No pleural effusion or pneumothorax is noted. Prior right rib fractures noted. No acute osseous process is seen. Reading Location: [id number] Foot X-Ray 07/09/24 08:42 IMPRESSION: Diffuse dorsal soft tissue swelling. Reading Location: [facility] Assessment & Plan Assessment/Plan (1) Atrial fibrillation with rapid ventricular response: PLAN: Improved with the 3 mg of IV diltiazem. Will resume the patient's oral diltiazem as well as his metoprolol succinate. Continue with anticoagulation with apixaban. May be exacerbated due to the severe pain that he is currently experiencing from his ankles. If heart rate does not improve with the resumption of his oral medications may need to initiate another bolus of IV diltiazem and start him on a diltiazem drip. (2) Bilateral ankle pain: PLAN: I suspect that this is likely due to gout. Pain is very exquisite in his ankles bilaterally. Though this is unusual presentation with gout. X-rays are unremarkable. Will check uric acid though did acknowledge the patient that the level could actually normal during acute flare. Will start him on prednisone as well as colchicine to see how he responds to that. PLAN: Plan Debility: Due to his ankle pain he is unable to bear weight. PT OT evaluate and treat. Diabetes mellitus type 2: Continue with metformin. Sliding scale insulin. Check an A1c. VTE prophylaxis: Not indicated as patient is already anticoagulated apixaban. No additional workup for his elevated D-dimer likely could be related with inflammation from his ankles. CODE STATUS: Addressed with the patient. Patient wishes to be full code. Charges/Coding Visit Charges Inpatient E&M: 04398 Init Hosp L3
[2024-07-09 10:57] LABS: Reflex Troponin-HS? (from REC) Y
[2024-07-09] MEDS: Azithromycin 500 MG in 0.9% Normal Saline (250mL Bag) 250 ML 255 MG IV (11:00)
[2024-07-09 11:07] LABS: Uric Acid 7.5 mg/dL (3.5-7.2)
[2024-07-09 11:25] LABS: Bacteria 0 SEEN /hpf (None Seen); Squamous Epithelial Cells - UA 0 SEEN /hpf (0-5)
[2024-07-09 11:27] LABS: Glucose, Dipstick Normal (Normal); Ketone-Dipstick 50 mg/dl (Negative); Leukocyte Esterase-Dipstick 25 /ul (Negative); Nitrite-Dipstick Negative (Negative); Occult Blood-Urine 10 /ul (Negative); Protein-Dipstick 100 mg/dl (Negative); Urine Urobilinogen 1 mg/dl (Normal)
[2024-07-09 11:28] LABS: Troponin-I HS 18 pg/mL (3.0-78.0)
[2024-07-09 11:36] LABS: Urine Bilirubin Dipstick 1 mg/dL (Negative)
[2024-07-09 11:37] LABS: Color, Urine Yellow (Yellow); Urine Clarity Clear (Clear)
[2024-07-09 11:40] LABS: Mucous, Urine 1+ /hpf (<or=2+); Red Blood Cells-Urine 0-5 SEEN /hpf (0-5); Renal Epithelial Cells 0-5 SEEN /hpf (0-5); White Blood Cells 0-5 SEEN /hpf (0-5)
[2024-07-09 11:41] LABS: Fine Granular Cast- Urine 0-5 SEEN /lpf (0-5); Hyaline Cast 5-10 SEEN /lpf (0-5)
[2024-07-09 11:42] LABS: White Cell Cast 0-5 SEEN /lpf (None Seen)
[2024-07-09 13:07] LABS: Bedside Glucose 109 mg/dL (74-106)
[2024-07-09] MEDS: Metoprolol(XL)Succ 50 MG Tablet PO (13:43)
[2024-07-09] MEDS: predniSONE 20 MG Tablet 40 MG PO (13:43)
[2024-07-09] MEDS: Colchicine 0.6 MG TABLET PO ×2 (13:43→21:14)
[2024-07-09] MEDS: dilTIAZem CD 240 MG Capsule PO (13:43)
[2024-07-09] MEDS: Methocarbamol 500 MG Tablet PO ×2 (13:43→21:14)
--- NOTE | 2024-07-09 14:38 | CASEMGMT ---
Care Management Face to Face with patient for initial transition planning/care coordination assessment in the ED.? This data analyst report writer introduced self and role at [facility]. Patient alert and oriented. Patient willing to participate in assessment and is able to answer all questions appropriately.? Care providers, pharmacy, and demographics verified. Admitting Diagnosis: A fib Other diagnosis history: hypertension, diabetes type 2, COPD PCP: ?Zoe Specialists: ? Preferred Pharmacy: [facility] Insurance: ?Medicaid Prescription Benefit: yes Living Will/HPOA: ?Would like to complete while in hospital LNOK: son Living Arrangements: ?lives alone in basement apartment.? 6 stairs to get in.? Patient able to complete ADLs and IALDs with difficulty due to feet pain.?? Transportation: Ex- takes patient to store and to pay rent DME: cane, shower bench, grab bars in bathroom HHC: none SNF/Rehab: none Community Resources: none Behavioral Health History: none Patient goals: Patient wishes to discharge home.? ? Disposition Plan: admission to acute; RN CM/SW to follow for discharge planning needs that may arise. Meenakshi Quiroga, TEAMCENTER CONSULTANT, ROUTE DELIVERY SERVICE DRIVER
--- NOTE | 2024-07-09 16:36 | ECHOD_ITS ---
Reason For Study Reason For Study: Afib, Aflutter Procedure This was a 2D Doppler, Color Flow transthoracic echocardiogram. Exam performed portable in patient room. Left Ventricle Normal LV size. The estimated ejection fraction is 55 %. No evidence for diastolic dysfunction. No regional wall motion abnormalities noted. Right Ventricle Normal RV size. Normal systolic function. Atria The left atrium is severely enlarged. Normal right atrium. No doppler evidence for ASD. Mitral Valve There is no mitral valve stenosis. Mild (1+) mitral valve insufficiency. Tricuspid Valve There is no tricuspid stenosis. Mild (1+) tricuspid valve insufficiency. Pulmonary artery systolic pressure is 30 mmHg. Aortic Valve Trisinus/trileaflet aortic valve. There is no aortic stenosis. No aortic valve insufficiency. Pulmonic Valve There is no pulmonic valvular stenosis. No pulmonic valve insufficiency. Great Vessels Normal aortic root. Pericardium/Pleural No pericardial effusion. MMode/2D Measurements & Calculations LVIDd: 5.3 cm IVSd: 1.3 cm Ao root diam: 3.7 cm LVIDs: 3.3 cm LVPWd: 1.3 cm RVDd: 3.5 cm FS: 38.0 % LAV(MOD-bp): 208.4 ml LVAd ap4: 22.1 cm2 SV(MOD-sp4): 39.4 ml LAV(MOD-bp) Indexed: 94.9 ml/m2 LVLd ap4: 6.0 cm SI(MOD-sp4): 17.9 ml/m2 LAV(MOD-sp2): 243.4 ml EDV(MOD-sp4): 67.8 ml LAV(MOD-sp4): 160.9 ml EDV(sp4-el): 68.9 ml LVAs ap4: 13.7 cm2 LVLs ap4: 5.6 cm ESV(MOD-sp4): 28.4 ml ESV(sp4-el): 28.5 ml EF(MOD-sp4): 58.1 % EF(sp4-el): 58.7 % SV(sp4-el): 40.4 ml LA A4 area: 44.8 cm2 LA dimension(2D): 4.7 cm RA A4 area: 20.8 cm2 TAPSE: 1.6 cm Doppler Measurements & Calculations MV E max zaheer: 151.0 cm/sec Lat Peak E' Zaheer: 11.6 cm/sec Med Peak E' Zaheer: 10.3 cm/sec E/E' lat: 13.0 E/E' med: 14.7 Ao V2 max: 127.9 cm/sec LV V1 max: 98.4 cm/sec PA V2 max: 72.0 cm/sec Ao max P.6 mmHg LV V1 max P.9 mmHg Ao V2 mean: 94.7 cm/sec Ao mean P.9 mmHg Ao V2 VTI: 20.7 cm TR max zaheer: 259.4 cm/sec TR max P.9 mmHg ECHO/Echo Complete Interpretation Summary The estimated ejection fraction is 55 %. No evidence for diastolic dysfunction. The left atrium is severely enlarged. Mild (1+) mitral valve insufficiency. Ordering Physician: Yann Ascencio Referring Physician: Aric Enriquez Performed By: Ann-Marie Cao, RDCS, RVT
[2024-07-09] MEDS: Diltiazem 125 MG in Dextrose 5%-Water (100mL Bag) 100 ML IV (16:53)
[2024-07-09] MEDS: 0.9% Saline Lock 10 ML Syringe IV (17:07)
[2024-07-09] MEDS: Insulin Lispro 100 UNIT/ML INSULN.PEN SC (17:08)
[2024-07-09 17:34] LABS: Troponin-I HS 18 pg/mL (3.0-78.0)
[2024-07-09 17:40] LABS: Bedside Glucose 152 mg/dL (74-106)
--- NOTE | 2024-07-09 20:26 | CASEMGMT ---
Social Work SDOH completed. Patient denies concerns with housing, transportation, and safe living space. Patient did state that he would be open to additional assistance in the home. Referral placed with [facility]. Meenakshi Quiroga, CRAP GAME BOX PERSON, MECHANICAL OXIDIZER
[2024-07-09] MEDS: APIXABAN 5 MG TABLET PO (21:14)
[2024-07-09] MEDS: Divalproex Sodium 250 MG Tablet 500 MG PO (21:14)
[2024-07-09 21:47] LABS: Bedside Glucose 132 mg/dL (74-106)
[2024-07-10] VITALS (16 sets, daily range): BP systolic 94–148; BP diastolic 73–106; PULSE 79–105; RESP 12–19; TEMP 36.4–36.6; O2SAT 94–99
[2024-07-10] MEDS: Acetaminophen 500 MG Tablet 1000 MG PO ×2 (03:34→21:04)
[2024-07-10 04:10] LABS: Absolute Neutrophil Count 7.5 X10^3/uL (2.0-7.7); Basophil# 0.01 X10^3/uL; Basophil% 0.1 % (0-1); Hematocrit 38.3 % (40-54); Hemoglobin 12.2 g/dL (13.0-16.5); Lymphocyte % 6.9 % (19-41); Mean Corp Hgb Conc 31.9 g/dL (32-36); Mean Corpuscular Volume 94.3 fL (80-94); Mean Platelet Vol. 10.9 fl (6.2-12.0); Monocyte# 0.57 X10^3/uL; Monocyte% 6.6 % (0-10); NRBC Flagged by Analyzer 0 % (0-5); Neutrophil # 7.47 X10^3/uL (2.7-7.7); Neutrophil % 85.9 % (47-70); POSITIVE DIFFERENTIAL YES; Platelet Count 300 K/mm3 (150-450); RBC Distribution Width CV 12.9 % (11.6-14.6); RBC Distribution Width SD 44.8 fl (35.1-43.9); Red Blood Count 4.06 M/mm3 (4.6-6.2); White Blood Count 8.7 K/mm3 (4.4-11.0)
[2024-07-10 05:06] LABS: Anion Gap 8 (5-15); BUN 18 mg/dL (7-18); BUN/Creat Ratio 17.5 RATIO (10-20); Calcium,Total 9.9 mg/dL (8.5-10.1); Chloride 105 mmol/L (98-107); Creatinine, Serum 1.03 mg/dL (0.70-1.30); EST Glomerular Filtration Rate 76 mL/min (>60); Est Glom Filt Rate - Afr Amer 93 mL/min (>60); Estimated Creatinine Clearance 84.26 ml/min; Glucose 142 mg/dL (74-106); Potassium 3.5 mmol/L (3.5-5.1); Sodium Level 138 mmol/L (136-145)
[2024-07-10] MEDS: Methocarbamol 500 MG Tablet PO ×3 (06:07→21:00)
[2024-07-10 06:28] LABS: Bedside Glucose 136 mg/dL (74-106)
[2024-07-10] MEDS: Metoprolol(XL)Succ 50 MG Tablet PO (08:04)
[2024-07-10] MEDS: predniSONE 20 MG Tablet 40 MG PO (08:04)
[2024-07-10] MEDS: Furosemide 40 MG Tablet PO (08:04)
[2024-07-10] MEDS: Colchicine 0.6 MG TABLET PO ×2 (08:05→21:01)
[2024-07-10] MEDS: Lisinopril 2.5 MG Tablet PO (08:05)
[2024-07-10] MEDS: APIXABAN 5 MG TABLET PO ×2 (08:05→21:00)
[2024-07-10] MEDS: Divalproex Sodium 250 MG Tablet 500 MG PO ×2 (08:06→21:00)
[2024-07-10] MEDS: oxyCODONE 5 MG Tablet PO (08:10)
--- NOTE | 2024-07-10 10:03 | PCM.PN.HOSP ---
Reason for Visit Reason for Visit: Diagnoses Unspecified atrial fibrillation (07/09/24) Pain in right ankle and joints of right foot (07/09/24) Pain in left ankle and joints of left foot (07/09/24) Subjective Subjective HR converted to NSR. Objective Data Objective Data Vital Signs: Vital Signs Temp Pulse Resp BP Pulse Ox O2 Del Method O2 Flow Rate 36.5 C L 86 13 135/94 H 97 Room Air 2 07/10/24 03:00 07/10/24 08:04 07/10/24 06:00 07/10/24 06:00 07/10/24 06:00 07/10/24 08:12 07/10/24 06:00 Oxygen Flow Rate (L/min) 2 Oxygen Delivery Method Room Air Weight: 97.6 kg Body Mass Index (BMI) 29.2 Intake & Output: Intake and Output for Last 24 Hours 07/08/24 07/09/24 07/10/24 23:59 23:59 23:59 Intake Total 835.59 / 960.59 635 / 635 Output Total 375 / 375 Balance 835.59 / 835.59 260 / 260 Lab / Micro Data 07/10/24 03:42 07/10/24 03:42 Labs: Laboratory Results - last 24 hr 07/09/24 08:29: Uric Acid 7.5 H 07/09/24 11:07: Troponin I High Sens 18 07/09/24 11:15: Urine Color Yellow, Urine Clarity Clear, Urine pH 6.0, Ur Specific [place] 1.020, Urine Protein 100 H, Urine Glucose (UA) Normal, Urine Ketones 50 H, Urine Occult Blood 10 H, Urine Nitrite Negative, Urine Bilirubin 1 H, Urine Urobilinogen 1 H, Ur Leukocyte Esterase 25 H, Urine RBC 0-5 SEEN, Urine WBC 0-5 SEEN, Ur Squamous Epith Cells 0 SEEN, Ur Renal Epithelial Cell 0-5 SEEN, Urine Bacteria 0 SEEN, Hyaline Casts 5-10 SEEN, Fine Granular Casts 0-5 SEEN, WBC Casts 0-5 SEEN, Urine Mucus 1+ 07/09/24 12:06: POC Glucose 109 H 07/09/24 17:00: Troponin I High Sens 18, POC Glucose 152 H 07/09/24 21:14: POC Glucose 132 H 07/10/24 03:42: WBC 8.7, RBC 4.06 L, Hgb 12.2 L, Hct 38.3 L, MCV 94.3 H, MCH 30.0, MCHC 31.9 L, RDW Std Deviation 44.8 H, RDW Coeff of Apolinar 12.9, Plt Count 300, MPV 10.9, Immature Gran % (Auto) 0.500, Neut % (Auto) 85.9 H, Lymph % (Auto) 6.9 L, [place] % (Auto) 6.6, Eos % (Auto) 0.0, Baso % (Auto) 0.1, Absolute Neuts (auto) 7.5, Absolute Lymphs (auto) 0.60 L, Nucleated RBC % 0, Sodium 138, Potassium 3.5, Chloride 105, Carbon Dioxide 25.0, Anion Gap 8, BUN 18, Creatinine 1.03, Estim Creat Clear Calc 84.26, Est GFR (MDRD) Af Amer 93, Est GFR (MDRD) Non-Af 76, BUN/Creatinine Ratio 17.5, Glucose 142 H, Hemoglobin A1c 6.0 H, Calcium 9.9 07/10/24 06:04: POC Glucose 136 H Physical Exam Const alert and average body habitus HEENT head/scalp atraumatic and moist oral mucous membranes Resp normal respiratory effort, no retractions, no use of accessory muscles and clear to auscultation bilaterally Cardio regular rate, regular rhythm, S1 normal heart sound and S2 normal heart sound GI normal to inspection, nondistended, normoactive bowel sounds, soft to palpation, non-tender and non-distended Extremity normal to inspection, full ROM and no clubbing, cyanosis or edema Neuro oriented x3, CN's II-XII intact bilaterally, moves all extremities and no focal motor deficits Sensorium / Orientation: awake and alert Assessment & Plan Assessment/Plan (1) Atrial fibrillation with rapid ventricular response: PLAN: Improved with the 3 mg of IV diltiazem. Will resume the patient's oral diltiazem as well as his metoprolol succinate. Continue with anticoagulation with apixaban. May be exacerbated due to the severe pain that he is currently experiencing from his ankles. Refractory yesterday with resumption of his home meds and diltiazem bolus and gtt started. HR now improved. Check echo. (2) Bilateral ankle pain: PLAN: I suspect that this is likely due to gout. Pain is very exquisite in his ankles bilaterally. Though this is unusual presentation with gout. X-rays are unremarkable. W Uric acid 7.5 Will start him on prednisone as well as colchicine to see how he responds to that. PLAN: Plan Debility: Due to his ankle pain he is unable to bear weight. PT OT evaluate and treat. Diabetes mellitus type 2: Continue with metformin. Sliding scale insulin. Check an A1c. VTE prophylaxis: Not indicated as patient is already anticoagulated apixaban. No additional workup for his elevated D-dimer likely could be related with inflammation from his ankles. CODE STATUS: Addressed with the patient. Patient wishes to be full code. Charges/Coding Visit Charges Inpatient E&M: 28913 Subs Hosp L2
[2024-07-10] MEDS: dilTIAZem CD 240 MG Capsule PO (10:59)
[2024-07-10] MEDS: FLU VACCINE **HIGH DOSE** TV 24-25 180 MCG/0.5 ML SYRINGE IM (11:06)
[2024-07-10 11:40] LABS: Bedside Glucose 147 mg/dL (74-106)
--- NOTE | 2024-07-10 13:03 | CHAPLAIN ---
Type of Pastoral Visit _x__ Initial Visit ___ Follow-up Visit ___ On-call Visit ___ General Patient Visit ___ Spiritual Assessment ___ Family Conference ___ Bereavement ___ Rapid Response ___ Code Blue ___ Other (describe below) Pastoral Care Referral From _x__ Patient ___ Family ___ Nurse ___ Physician ___ Hair Spinner ___ Battery Container Inspector ___ Other (describe below) Sacrament/Intervention _x__ Active listening ___ Anointing ___ Oriental Orthodox ___ Bereavement ___ Communion ___ Tran exploration ___ _x__ Life review _x__ Prayer ___ Reconciliation ___ Sacrament of Sick _x__ Supportive presence ___ Wedding ___ Other (describe below) Pastoral Comments patient states immediately that he was already served communion and that he hasn't slept; offered to return later and allow patient to sleep; however patient was very talkative and expressed what had happened to him at home and the difficulty of getting help as he lives alone; pt speaks of terrible pain he had; pt has some family that can help him and 'they will be looking for a new place for me to live'; pt is focused on his health, pain, and swelling in legs; pt is frustrated that no one came to help me in my apartment when I called out in great pain; pt welcomes a prayer and presence for support
[2024-07-10 14:44] LABS: Pathologist Review Reviewed
[2024-07-10 17:20] LABS: Bedside Glucose 111 mg/dL (74-106)
[2024-07-10] MEDS: 0.9% Saline Lock 10 ML Syringe IV (21:04)
[2024-07-10 21:32] LABS: Bedside Glucose 148 mg/dL (74-106)
[2024-07-11 03:45] VITALS: BP 140/85; PULSE 104; RESP 20; TEMP 36.4; O2SAT 98
[2024-07-11] MEDS: oxyCODONE 5 MG Tablet PO (03:58)
[2024-07-11] MEDS: predniSONE 20 MG Tablet 40 MG PO (06:53)
[2024-07-11] MEDS: Methocarbamol 500 MG Tablet PO ×2 (06:53→13:54)
[2024-07-11 07:15] LABS: Bedside Glucose 105 mg/dL (74-106)
[2024-07-11 07:30] VITALS: O2SAT 94
--- NOTE | 2024-07-11 07:47 | PCM.PN.HOSP ---
Reason for Visit Reason for Visit: Diagnoses Unspecified atrial fibrillation (07/09/24) Pain in right ankle and joints of right foot (07/09/24) Pain in left ankle and joints of left foot (07/09/24) Subjective Subjective Ankles feeling better. Objective Data Objective Data Vital Signs: Vital Signs Temp Pulse Resp BP Pulse Ox O2 Del Method O2 Flow Rate 36.4 C L 104 H 20 H 140/85 H 98 Room Air 2 07/11/24 03:45 07/11/24 03:45 07/11/24 03:45 07/11/24 03:45 07/11/24 03:45 07/11/24 05:47 07/10/24 10:00 Oxygen Flow Rate (L/min) 2 Oxygen Delivery Method Room Air Weight: 97.6 kg Body Mass Index (BMI) 29.2 Intake & Output: Intake and Output for Last 24 Hours 07/09/24 07/10/24 07/11/24 23:59 23:59 23:59 Intake Total 835.59 / 960.59 1380 / 1860 480 / 480 Output Total 875 / 875 200 / 200 Balance 835.59 / 835.59 505 / 985 280 / 280 Lab / Micro Data 07/10/24 03:42 07/10/24 03:42 Labs: Laboratory Results - last 24 hr 07/09/24 08:29: Diff Path Review Reviewed 07/10/24 03:42: Hemoglobin A1c 6.0 H 07/10/24 11:19: POC Glucose 147 H 07/10/24 16:50: POC Glucose 111 H 07/10/24 21:12: POC Glucose 148 H 07/11/24 06:51: POC Glucose 105 Radiography Diagnostic Testing: Radiology Impression Venous Doppler Study 07/09/24 09:30 Interpretation Summary Deep veins of the bilateral lower extremities are patent and compressible segmentally. There is no evidence of bilateral lower extremity deep vein thrombosis. The bilateral great saphenous veins appear patent and compressible segmentally. Ordering Physician: Priscilla Reynaga Referring Physician: Aric Enriquez Performed By: Damaris Dudley, RVT Echocardiogram 07/09/24 16:36 Interpretation Summary The estimated ejection fraction is 55 %. No evidence for diastolic dysfunction. The left atrium is severely enlarged. Mild (1+) mitral valve insufficiency. Ordering Physician: Yann Ascencio Referring Physician: Aric Enriquez Performed By: Ann-Marie Cao RDCS, RVT Physical Exam Const alert and no apparent distress HEENT head/scalp atraumatic and moist oral mucous membranes Cardio regular rate and regular rhythm Extremity Extremity Narrative: no reproducible ankle pain. Assessment & Plan Assessment/Plan (1) Atrial fibrillation with rapid ventricular response: PLAN: Converted to NSR Continue home dilt and Toprol (2) Bilateral ankle pain: PLAN: Improved I suspect that this is likely due to gout. Pain had very exquisite in his ankles bilaterally. Though this is unusual presentation with gout. X-rays are unremarkable. Uric acid 7.5 Will start him on prednisone as well as colchicine to see how he responds to that. PLAN: Plan Debility: Due to his ankle pain he is unable to bear weight. PT OT evaluate and treat. Diabetes mellitus type 2: Continue with metformin. Sliding scale insulin. Check an A1c. VTE prophylaxis: Not indicated as patient is already anticoagulated apixaban. No additional workup for his elevated D-dimer likely could be related with inflammation from his ankles. CODE STATUS: Addressed with the patient. Patient wishes to be full code.
[2024-07-11 08:40] VITALS: BP 133/77; PULSE 115; RESP 20; TEMP 36.3; O2SAT 97
[2024-07-11] MEDS: Divalproex Sodium 250 MG Tablet 500 MG PO (08:44)
[2024-07-11] MEDS: Colchicine 0.6 MG TABLET PO (08:45)
[2024-07-11] MEDS: dilTIAZem CD 240 MG Capsule PO (08:45)
[2024-07-11 08:46] VITALS: PULSE 115
[2024-07-11] MEDS: APIXABAN 5 MG TABLET PO (08:46)
[2024-07-11] MEDS: Metoprolol(XL)Succ 50 MG Tablet PO (08:46)
[2024-07-11] MEDS: Furosemide 40 MG Tablet PO (08:47)
[2024-07-11] MEDS: Lisinopril 2.5 MG Tablet PO (08:47)
--- NOTE | 2024-07-11 09:14 | PCM.DC.SUM ---
Providers Date of Admission: 07/09/24 Primary Care Physician: Dr. Aric Enriquez MD Reason For Visit: AFIB RVR Diagnosis Discharge Diagnosis (1) Atrial fibrillation with rapid ventricular response: Status: Acute Code(s): I48.91 - Unspecified atrial fibrillation Plan: Converted to NSR Continue home dilt and Toprol (2) Bilateral ankle pain: Status: Acute Code(s): M25.571 - Pain in right ankle and joints of right foot; M25.572 - Pain in left ankle and joints of left foot Plan: Improved I suspect that this is likely due to gout. Pain had very exquisite in his ankles bilaterally. Though this is unusual presentation with gout. X-rays are unremarkable. Uric acid 7.5 Will start him on prednisone as well as colchicine to see how he responds to that. Plan Debility: Due to his ankle pain he is unable to bear weight. PT OT evaluate and treat. Diabetes mellitus type 2: Continue with metformin. Sliding scale insulin. Check an A1c. VTE prophylaxis: Not indicated as patient is already anticoagulated apixaban. No additional workup for his elevated D-dimer likely could be related with inflammation from his ankles. CODE STATUS: Addressed with the patient. Patient wishes to be full code. Medications at Discharge Home Medications divalproex 500 mg tablet,delayed release (Depakote) 500 mg PO BID 11/15/22 metformin 500 mg tablet,extended release 24 hr 500 mg PO DAILY 11/15/22 acetaminophen 500 mg tablet 1,000 mg PO Q6H PRN Pain 11/17/22 furosemide 40 mg tablet 40 mg PO DAILY 11/17/22 blood pressure test kit-[facility] #1 ea 06/23/23 diltiazem HCl 240 mg capsule,extended release 24 hr 240 mg PO DAILY #90 caps 12/05/23 metoprolol succinate 50 mg tablet,extended release 24 hr (Toprol XL) 50 mg PO DAILY #90 tabs 01/04/24 apixaban 5 mg tablet 5 mg PO BID #180 tabs 05/18/24 lisinopril 2.5 mg tablet 2.5 mg PO DAILY 07/09/24 methocarbamol 500 mg tablet 500 mg PO Q8H 07/09/24 colchicine 0.6 mg capsule 0.6 mg PO BID PRN joint pain #20 caps 07/11/24 prednisone 20 mg tablet 40 mg (2 x 20 mg) PO BREAKFAST #6 tabs 07/11/24 Hospital Course Operations None Procedures 2-D Echocardiogram Weight / BMI Weight Weight: 97.6 kg Body Mass Index (BMI) 29.2 ABG / Lab / Microbiology Data 07/10/24 03:42 07/10/24 03:42 Laboratory: Laboratory Results - last 24 hr 07/09/24 08:29: Diff Path Review Reviewed 07/10/24 03:42: Hemoglobin A1c 6.0 H 07/10/24 11:19: POC Glucose 147 H 07/10/24 16:50: POC Glucose 111 H 07/10/24 21:12: POC Glucose 148 H 07/11/24 06:51: POC Glucose 105 Radiography Diagnostic Testing: Radiology Impression Venous Doppler Study 07/09/24 09:30 Interpretation Summary Deep veins of the bilateral lower extremities are patent and compressible segmentally. There is no evidence of bilateral lower extremity deep vein thrombosis. The bilateral great saphenous veins appear patent and compressible segmentally. Ordering Physician: Priscilla Reynaga Referring Physician: Aric Enriquez Performed By: Damaris Dudley, RVT Echocardiogram 07/09/24 16:36 Interpretation Summary The estimated ejection fraction is 55 %. No evidence for diastolic dysfunction. The left atrium is severely enlarged. Mild (1+) mitral valve insufficiency. Ordering Physician: Yann Ascencio Referring Physician: Aric Enriquez Performed By: Ann-Marie Cao RDCS, RVT D/C Instructions Discharge Diet: Low fat / Low cholesterol DC O2, CPAP, BIPAP Needs Home O2 Discharge instructions: No Meaningful Use Info Meaningful Use Meaningful Use Diagnoses (Choose all that apply): None applicable Ischemic Stroke Statin Dosing Therapy Reference: STATIN DOSE THERAPY REFERENCE: * Patients > 75 years receive moderate or high dose statin therapy. * Patients 75 years or YOUNGER should receive HIGH intensity statin dose unless contraindicated. You will be required to document reason for non-treatment if statin daily dose does not meet guidelines. HIGH DOSE STATIN THERAPY DAILY Atorvastatin > than or = to 40 mg Rosuvastatin > than or = to 20 mg Amlodipine + Atorvastatin > than or = to 2.5/40 mg Ezetimibe + Simvastatin 10/80 mg Simvastatin 80mg Discharge Plan Admission Admit Date/Time: 07/09/24 10:34 Primary Reason for Your Visit: atrial fibrillation. Attending Provider: Yann Ascencio Primary Care Provider: Aric Enriquez Instructions Additional Instructions / Restrictions: You had bilateral ankle pain and swelling. I think this was due to gout and you improved with prednisone and colchicine. Complete the prednisone and take colchicine as needed for joint pain. Discharge Orders/Prescriptions Prescriptions: New prednisone 20 mg Tablet 40 mg PO BREAKFAST Qty: 6 0RF colchicine 0.6 mg Capsule 0.6 mg PO BID PRN (Reason: joint pain) Qty: 20 0RF Continued metformin 500 mg tablet extended release 24 hr 500 mg PO DAILY Patient Comments: take 1 tablet by mouth once daily with breakfast furosemide 40 mg tablet 40 mg PO DAILY (DME) blood pressure test kit-medium Kit See Rx Instructions .Route Qty: 1 0RF Rx Instructions: As directed acetaminophen 500 mg tablet 1,000 mg PO Q6H PRN (Reason: Pain) divalproex [Depakote] 500 mg tablet,delayed release (DR/EC) 500 mg PO BID methocarbamol 500 mg tablet 500 mg PO Q8H lisinopril 2.5 mg tablet 2.5 mg PO DAILY diltiazem HCl 240 mg capsule,extended release 24hr 240 mg PO DAILY Qty: 90 3RF Patient Comments: heart metoprolol succinate [Toprol XL] 50 mg tablet extended release 24 hr 50 mg PO DAILY Qty: 90 3RF apixaban 5 mg tablet 5 mg PO BID Qty: 180 3RF Patient Comments: blood thinner Referrals / Follow Up: Aric Enriquez MD [Primary Care Provider] - Within 2 Weeks Disposition Disposition (needs filled in before D/C Order can be placed): Home, Self Care Charges/Coding Visit Charges Inpatient E&M: 03256 Disch Hosp
--- NOTE | 2024-07-11 11:07 | CASEMGMT ---
Discharge Planning A list of SNF providers including quality and resource use data and consistent with the patient's preferred geographic region, medical needs, and insurance network was created in [facility] Guide.? This list was provided to the SW. Amparo Jacob Discharge Planning Asst.
--- NOTE | 2024-07-11 11:12 | CASEMGMT ---
Therapy informed SW that patient needs to go to a SNF short term for rehab. SONYA met with patient and his brother Anastacio in the room. Introduced self and role at [facility]. SW provided patient and his brother with a list of facilities. SW asked them to pick 3-4 preferences and SW will take care of contacting facilities to see if they have availability. SONYA explained that patient would stay in the hospital until we have an accepting facility and his insurance approves him. Anastacio asked about assisted living and SONYA explained SW can make a referral to the waiver program. An aluminum can collector would come out and talk with patient then they would work on getting patient into an assisted living. SONYA told them SW will check back in a little bit. Liza Hua STORE FACILITY TECHNICIAN MORRIS
--- NOTE | 2024-07-11 12:00 | CASEMGMT ---
Addendum entered by Liza Hua 07/11/24 12:12: SONYA did let Anastacio know that SW did make a referral to [facility] and asked that they call him so he can be part of the meeting with patient. Anastacio thanked SONYA. Liza CACERES Original Note: SONYA made a referral to [facility] for patient. SW checked back with patient and his brother Anastacio. Patient said his first choice would be [facility]. Patient did not have any other choices. SW told patient that we usually ask for 3-4 choices. Anastacio spoke up and said the choices would be [facility], [facility], and then [facility]. SW let them know SW will work on referrals and let them know. Patient said, He doesn't understand what is going on. SONYA re-explained that once a facility accepts patient they will submit all information to patient's insurance. Then once insurance gives approval [facility] will work on getting patient to the facility. SONYA told patient he will stay at [facility] until we have all of this lined up. SONYA explained this could take a day or two. Patient verbalized understanding. SW sent a referral to [facility] and let them know patient is ready for discharge. Plan: SNF pending accepting facility and insurance approval. Liza CACERES
--- NOTE | 2024-07-11 12:12 | CASEMGMT ---
[place] [facility] is full as is [facility]. SW sent a referral to [facility], patient's 3rd choice. Liza Hua PL SQL PROGRAMMER MORRIS
[2024-07-11 12:18] LABS: Bedside Glucose 185 mg/dL (74-106)
[2024-07-11] MEDS: Insulin Lispro 100 UNIT/ML INSULN.PEN SC (12:20)
--- NOTE | 2024-07-11 12:51 | CASEMGMT ---
[facility] accepted patient and they will submit information to insurance for pre-cert. Plan: [facility] pending pre-cert. Liza CACERES
--- NOTE | 2024-07-11 13:34 | CASEMGMT ---
SONYA notified patient that [place] and [facility] are full. SONYA told patient [facility] is able to take him. SONYA attempted to call patient's brother Anastacio, but his voice mailbox was full. Liza CACERES
--- NOTE | 2024-07-11 14:33 | CASEMGMT ---
[facility] has obtained auth to admit. Amparo Jacob DC Planning Asst.
--- NOTE | 2024-07-11 14:40 | CASEMGMT ---
SONYA notified physician, patient, patient's brother Anastacio, and RN. SW will complete 7000 in [facility] system. Physicians will transport patient via wheelchair van. SONYA did explain to Anastacio that [facility] will set up transport. SONYA also let Anastacio know that patient will be able to wear regular clothes while at [facility]. Anastacio said he will get patient more clothes tomorrow. Plan: d/c to [facility] under skilled level of care on a convalescent stay. Physicians will transport via wheelchair van. Liza CACERES
--- NOTE | 2024-07-11 14:52 | PCM.TXEXTCAR ---
Diet Diet Order/Speech Therapy: 07/09/24 11:38 Diet: Cardiac - Heart Healthy Food consistency:: Regular Liquid Consistency:: Regular/Thin Routine Orders/Code Status Code Status: Full Code DC O2, CPAP, BIPAP needs Home O2 Discharge instructions: No Therapies Weight Bearing: Full weight bearing Physical Therapy: Eval and Treat Occupational Therapy: Eval and Treat Problem/Diagnosis (1) Atrial fibrillation with rapid ventricular response: Status: Acute Code(s): I48.91 - Unspecified atrial fibrillation Plan: Converted to NSR Continue home dilt and Toprol (2) Bilateral ankle pain: Status: Acute Code(s): M25.571 - Pain in right ankle and joints of right foot; M25.572 - Pain in left ankle and joints of left foot Plan: Improved I suspect that this is likely due to gout. Pain had very exquisite in his ankles bilaterally. Though this is unusual presentation with gout. X-rays are unremarkable. Uric acid 7.5 Will start him on prednisone as well as colchicine to see how he responds to that. Plan Debility: Due to his ankle pain he is unable to bear weight. PT OT evaluate and treat. Diabetes mellitus type 2: Continue with metformin. Sliding scale insulin. Check an A1c. VTE prophylaxis: Not indicated as patient is already anticoagulated apixaban. No additional workup for his elevated D-dimer likely could be related with inflammation from his ankles. CODE STATUS: Addressed with the patient. Patient wishes to be full code. Allergies/Procedures Done in Hospital Allergies Iodinated Contrast Media (CONTRASTS) Allergy (Severe, Verified 07/09/24 08:27) Anaphylaxis used for heart cath Procedures: 2-D Echocardiogram Type of Care/Length of Stay Estimated LOS: Convalescent Care Less Than 30 days Type of Care Needed: Skilled Rehab Potential: Good Prognosis: Good Additional Orders/Day of Discharge Day of Discharge: 07/11/24 Dietary and Speech Recommendations Dietitian Recommendations/Changes: Continue Cardiac diet to manage medical conditions. Discharge Plan Admission Admit Date/Time: 07/09/24 10:34 Primary Reason for Your Visit: atrial fibrillation. Attending Provider: Yann Ascencio Primary Care Provider: Aric Enriquez Instructions Additional Instructions / Restrictions: You had bilateral ankle pain and swelling. I think this was due to gout and you improved with prednisone and colchicine. Complete the prednisone and take colchicine as needed for joint pain. Discharge Orders/Prescriptions Prescriptions: New prednisone 20 mg Tablet 40 mg PO BREAKFAST Qty: 6 0RF colchicine 0.6 mg Capsule 0.6 mg PO BID PRN (Reason: joint pain) Qty: 20 0RF Continued metformin 500 mg tablet extended release 24 hr 500 mg PO DAILY Patient Comments: take 1 tablet by mouth once daily with breakfast furosemide 40 mg tablet 40 mg PO DAILY (DME) blood pressure test kit-medium Kit See Rx Instructions .Route Qty: 1 0RF Rx Instructions: As directed acetaminophen 500 mg tablet 1,000 mg PO Q6H PRN (Reason: Pain) divalproex [Depakote] 500 mg tablet,delayed release (DR/EC) 500 mg PO BID methocarbamol 500 mg tablet 500 mg PO Q8H lisinopril 2.5 mg tablet 2.5 mg PO DAILY diltiazem HCl 240 mg capsule,extended release 24hr 240 mg PO DAILY Qty: 90 3RF Patient Comments: heart metoprolol succinate [Toprol XL] 50 mg tablet extended release 24 hr 50 mg PO DAILY Qty: 90 3RF apixaban 5 mg tablet 5 mg PO BID Qty: 180 3RF Patient Comments: blood thinner Referrals / Follow Up: Aric Enriquez MD [Primary Care Provider] - Within 2 Weeks Disposition Disposition (needs filled in before D/C Order can be placed): Nursing Home Facility
--- NOTE | 2024-07-11 15:58 | NURSING ---
called report to Demetria at [facility]
--- NOTE | 2024-07-11 15:58 | CASEMGMT ---
Discharge orders, signed med list, and transport time sent to [facility]. Physicians will transport pt by wheelchair at 5:30. Nursing, SW, and pt updated. Unable to leave for pts brother (Anastacio) d/t mailbox being full. Amparo Jacob DC Planning Asst.
[2024-07-11 17:02] LABS: Bedside Glucose 138 mg/dL (74-106)
[2024-07-11 17:10] VITALS: BP 127/88; PULSE 100; RESP 16; TEMP 36.5; O2SAT 97
== END 2024-07-11 18:43 | disposition skilled nursing facility (03) | DRG 310 ==
LOC: ED 10:31 → PCU 11:08
PROVIDERS: Emergency Provider Emergency Medicine; PCP Family Medicine
DX: I48.91 Unspecified atrial fibrillation (principal); E11.9 Type 2 diabetes mellitus without complications; I10 Essential (primary) hypertension; E78.5 Hyperlipidemia, unspecified; I25.2 Old myocardial infarction; M25.571 Pain in right ankle and joints of right foot; M25.572 Pain in left ankle and joints of left foot; Z79.01 Long term (current) use of anticoagulants; R53.81 Other malaise; Z79.84 Long term (current) use of oral hypoglycemic drugs; Z87.891 Personal history of nicotine dependence; Z81.8 Family history of other mental and behavioral disorders; Z86.73 Personal history of transient ischemic attack (TIA), and cerebral infarction without residual deficits
CPT/HCPCS: 36415; 71045; 73610; 73630; 80048; 80053; 81001; 82962; 83036; 83605; 84484; 84550; 85025; 85379; 90662; 93005; 93306; 93970; 97116; 97162; 97166; 97530; 99285; Q9957; A4216; J2405

== ENCOUNTER → 2024-08-27 | Outpatient (REF) | payer MEDICARE, MEDICAID, SELFPAY ==
[2024-08-27 08:47] LABS: Uric Acid 7.6 mg/dL (3.5-7.2)
== END ==
LOC: OLS.SW 04:00
PROVIDERS: PCP Family Medicine; Referring Provider Internal Medicine; Visit Provider Internal Medicine
DX: M10.9 Gout, unspecified (principal)
CPT/HCPCS: 36415; 84550; 86140

== ENCOUNTER → 2024-09-26 | Outpatient (REF) | payer MEDICARE, MEDICAID, SELFPAY ==
[2024-09-26 08:14] LABS: Anion Gap 12 (5-15); BUN 35 mg/dL (4-19); BUN/Creat Ratio 24.2 RATIO (10-20); Calcium,Total 9.8 mg/dL (7.6-11.0); Carbon Dioxide 26.1 mmol/L (21.0-32.0); Chloride 103 mmol/L (98-108); Creatinine, Serum 1.46 mg/dL (0.70-1.20); EST Glomerular Filtration Rate 52 (>60); Glucose 98 mg/dL (70-99); Magnesium 2.4 mg/dL (1.5-2.2); Potassium 4.5 mmol/L (3.3-5.1); Sodium Level 141 mmol/L (133-145)
== END ==
LOC: OLS.SW 05:16
PROVIDERS: PCP Family Medicine; Visit Provider Internal Medicine
DX: I48.91 Unspecified atrial fibrillation (principal)
CPT/HCPCS: 36415; 80048; 83735

== ENCOUNTER → 2024-10-23 05:00 | Outpatient (REF) | payer MEDICARE, MEDICAID, SELFPAY ==
[2024-10-23 08:16] LABS: Absolute Neutrophil Count 3.2 X10^3/uL (2.0-7.7); Basophil# 0.04 X10^3/uL; Basophil% 0.6 % (0-1); Eosinophil# 0.33 X10^3/uL; Eosinophils% 5.3 % (0-5); Hematocrit 42.2 % (40-54); Hemoglobin 13.7 g/dL (13.0-16.5); Lymphocyte % 33.4 % (19-41); Mean Corp Hgb Conc 32.5 g/dL (32-36); Mean Corpuscular Hgb 30.7 pg (27.0-32.0); Mean Corpuscular Volume 94.6 fL (80-94); Mean Platelet Vol. 10.9 fl (6.2-12.0); Monocyte# 0.59 X10^3/uL; Monocyte% 9.4 % (0-10); NRBC Flagged by Analyzer 0 % (0-5); Neutrophil # 3.19 X10^3/uL (2.7-7.7); Neutrophil % 50.8 % (47-70); Platelet Count 236 K/mm3 (150-450); RBC Distribution Width SD 52.3 fl (35.1-43.9); Red Blood Count 4.46 M/mm3 (4.6-6.2); White Blood Count 6.3 K/mm3 (4.4-11.0)
[2024-10-23 08:38] LABS: ALB/GLOB Ratio 1.7 RATIO (0.9-2.4); AST(SGOT) 16 U/L (<=37); Alanine Aminotransfer ALT/SGPT 13 U/L (<=46); Albumin, Serum 4.2 g/dL (3.4-4.8); Alkaline Phosphatase 63 U/L (40-129); Anion Gap 12 (5-15); BUN 24 mg/dL (4-19); BUN/Creat Ratio 18.7 RATIO (10-20); Calcium,Total 9.4 mg/dL (7.6-11.0); Carbon Dioxide 24.9 mmol/L (21.0-32.0); Chloride 106 mmol/L (98-108); Creatinine, Serum 1.27 mg/dL (0.70-1.20); EST Glomerular Filtration Rate 62 (>60); Globulin 2.4 g/dL (2.2-4.2); Glucose 97 mg/dL (70-99); Magnesium 2.4 mg/dL (1.5-2.2); Potassium 4.4 mmol/L (3.3-5.1); Protein, Total 6.7 g/dL (5.9-8.4); Sodium Level 143 mmol/L (133-145)
[2024-10-23 10:15] LABS: Valproic Acid (Depakene) Level 75 ug/mL (50-100)
[2024-10-23 11:02] LABS: Hemoglobin A1c 6.2 % (<=5.6)
== END ==
LOC: OLS.SWAL 05:00
PROVIDERS: PCP Family Medicine; Visit Provider Internal Medicine
DX: I48.91 Unspecified atrial fibrillation (principal); E11.9 Type 2 diabetes mellitus without complications; I10 Essential (primary) hypertension; Z79.899 Other long term (current) drug therapy
CPT/HCPCS: 36415; 80053; 80164; 83036; 83735; 85025

== ENCOUNTER → 2024-10-31 05:00 | Outpatient (REF) | payer MEDICARE, MEDICAID, SELFPAY | LOC: OLS.SWAL 05:00 | PROVIDERS: PCP Family Medicine; Visit Provider Internal Medicine | DX: I48.91 Unspecified atrial fibrillation (principal); I10 Essential (primary) hypertension; E11.9 Type 2 diabetes mellitus without complications; Z79.899 Other long term (current) drug therapy ==

== ENCOUNTER → 2024-11-27 | Outpatient (REF) | payer MEDICARE, MEDICAID, SELFPAY ==
--- OUTSIDE RECORDS SUMMARY | 2024-11-27 05:16 | XMS RPT_ITS | CCD ---
Author Organization [facility] ion [facility] Care Team Providers Care Coroner Technician Name Role Phone Aric Zapien MD Primary Care Provider [phone] Aric Zapien Primary Care Provider Dr. Aric Zapien Referring Provider Gokul MEDICAL AIDES TEACHER, AYLIN [place] Attending Provider Aric Zapien MD Primary Care Provider Haagen WINDER HAND.OUTSIDE PROPERTY AGENT, Meenakshi Unavailable Suppan WINDER HAND.OUTSIDE PROPERTY AGENT, Florinda A Unavailable [phone] Suppan WINDER HAND.OUTSIDE PROPERTY AGENT, Florinda A Unavailable Dr. Aric Zapien MD Primary Care Provider Dr. Yann Miller MD Attending Provider Dr. Priscilla Reynaga MD Referring Provider [phone] Dr. Priscilla Reynaga MD Emergency Provider Dr. Yann Ascencio DO Admit Provider Dr. Yann Ascencio DO Attending Provider Dr. Estuardo Irby MD Attending Provider Dr. Yann Ascencio DO Other Provider Karon ONRIEGA, Dr. Benito Attending Provider UnavailDr. Jigna Osman MD Referring Provider UnavailARIC Curtis Primary Care Unavailable FLORINDA STEVENSON Referring Unavailable ARIC ZAPIEN Primary Care Unavailable FLORINDA STEVENSON Referring Unavailable ARIC ZAPIEN Primary Care Unavailable FLORINDA STEVENSON Attending Unavailable RENUKA MAX Attending Unavailable [facility] Primary Care Unavailable Jigna Mccoy Attending Unavailable [facility] Primary Care Unavailable Gudla TANESHA, Jigna Attending Unavailable [facility] Primary Care Unavailable Gudla TANESHA, Jigna Attending Unavailable [facility] Primary Care Unavailable Gudla TANESHA, Jigna Attending Unavailable [facility] Primary Care Unavailable Gudla TANESHA, Jigna Referring Unavailable [facility] Primary Care Unavailable Yann Ascencio Admitting Unavailable Yann Ascencio Attending Unavailable Tovaa TANESHA, Jigna Attending Unavailable [facility] Primary Care Unavailable Gudla TANESHA, Jigna Referring Unavailable [facility] Primary Care Unavailable Gudla TANESHA, Jigna Attending Unavailable [facility] Primary Care Unavailable Yann Ascencio Consulting Unavailable Yann Ascencio Attending Unavailable Yann Ascencio Admitting Unavailable [facility] Primary Care Unavailable Estuardo Irby [facility] Yann Miller Attending Unavailable Priscilla Reynaga Referring Unavailable [facility] Care Unavailable Yann Ascencio Attending Unavailable [facility] Primary Care Unavailable Jigna Mccoy Attending Unavailable Allergies Allergy Classification Reported Allergen(s) Allergy Type Date of Onset Reaction(s) Facility (20 sources) Contrast media; Translations: [DYE] Drug Intolerance 03-02-20 16 Other: See Comments [facility] Work Phone: (4 sources) Triiodobenzoic Acids Allergy to substance 03-06-20 22 Anaphylaxis [facility] Comment on above: used for heart cath (1 source) Iodinated Contrast Media Drug allergy (disorder) 07-09-19 25 [facility] Repository Medications Current Medications Medication Drug Class(es) Dates Sig (Normalized) Sig (Original) acetaminophen 500 mg oral tablet (10 sources) Start: 11-17-2022 take 2 tablets by mouth every six hours as needed for pain Acetaminophen 500 mg tablet Active 1000 mg PO EVERY 6 HOURS as needed for Pain November 17, 2022 3:01pm Start: 11-17-2022 take 1000 mg by mout h every six hours Acetaminophen Active 1000 MG PO EVERY 6 HOURS November 17, 2022 2:01pm Start: 12-12-2015 End: 11-17-2022 take 2 tablets by mouth every four hours as needed for pain Acetaminophen 500 mg tablet Discontinued 1000 mg PO EVERY 4 HOURS NEEDED as needed for Pain November 15, 2022 2:04pm November 17, 2022 3:04pm Start: 12-12-2015 End: 11-17-2022 take 1000 mg by mouth every four hours as needed Acetaminophen Discontinued 1000 MG PO EVERY 4 HOURS NEEDED November 15, 2022 1:04pm November 17, 2022 2:04pm apixaban 5 mg oral tablet (20 sources) Factor Xa Inhibitor Start: 04-29-2015 End: 05-18-2024 take 1 tablet by mouth twice daily apixaban (ELIQUIS) 5 mg tab tab(s) Take 1 tablet by mouth twice daily. 0 07/23/2015 Active Comment on above: Take 1 tablet by onelia th twice daily. Blood Pressure Test Kit-Medium (1 source) Start: 06-23-2023 Blood Pressure Test Kit-Medium Active 0 .Route June 23, 2023 12:00am As directed Blood Pressure Test Kit-Medium kit (2 sources) Start: 06-23-2023 Blood Pressure Test Kit-Medium kit Active 0 .Route June 23, 2023 1:00am As directed Blood-Glucose Meter monitoring kit (2 sources) Start: 04-01-2022 End: 04-02-2022 Blood-Glucose Meter monitoring kit Indications: Type 2 diabetes mellitus without complication, without long-term current use of insulin ([facility]) Glucose Meter of Choice - Kit - Dx: Type 2 DM - Uncontrolled E11.65 1 Each 0 04/01/2022 04/02/2022 Active Comment on above: Glucose Meter of Cho ice - Kit - Dx: Type 2 DM - Uncontrolled E11.65 colchicine 0.6 mg oral capsule (2 sources) Start: 07-11-2024 take 1 capsule by mouth twice daily as needed for pain Colchicine 0.6 mg Capsule Active 0.6 mg PO TWICE A DAY as needed for joint pain July 11, 2024 1:00am furosemide 40 mg oral tablet (20 sources) Loop Diuretic Start: 04-03-2022 End: 10-30-2024 take 1 tablet by mouth once daily furosemide (LASIX) 40 mg tablet Indications: Pulmonary hypertension (HCC) , Edema, unspecified type Take 1 tablet by mouth once daily. 90 tablet 3 10/31/2023 10/30/2024 Active Start: 07-23-2015 End: 06-20-2017 take 1 tablet by mouth once daily Furosemide 40 MG tablet Discontinued 40 mg PO DAILY September 05, 2015 12:00am June 20, 2017 1:48pm Start: 07-23-2015 End: 11-17-2022 take 1 tablet by mouth twice daily Furosemide 40 mg tablet Discontinued 40 mg PO TWICE A DAY 180 August 24, 2021 12:59pm November 17, 2022 3:04pm Comment on above: Take 1 tablet by onelia th once daily. Take 40 mg by mouth twice daily. lisinopril 2.5 mg oral tablet (6 sources) Angiotensin Converting Enzyme Inhibitor Start: 06-25-19 End: 06-25-19 take 1 tablet by mouth once daily lisinopril 2.5 mg tablet Indications: Type 2 diabetes mellitus without complication, without long-term current use of insulin (HCC) Take 1 tablet by mouth once daily. For kidneys 90 tablet 3 06/25/2024 06/25/2025 Active 24 hr metFORMIN hydrochloride 500 mg extended release oral tablet (20 sources) Biguanide Start: 11-16-19 End: 11-22-19 take 1 tablet by mouth once daily at breakfast metFORMIN ER (GLUCOPHAGE XR) 500 mg 24 hr tablet Indications: Type 2 diabetes mellitus without complication, without long-term current use of insulin (HCC) Take 1 tablet by mouth daily with breakfast. 90 tablet 3 11/22/2023 Active Start: 03-26-2021 End: 09-15-2022 take 1 tablet by mouth once daily at breakfast metFORMIN ER (GLUCOPHAGE XR) 500 mg 24 hr tablet Indications: Type 2 diabetes mellitus without complication, without long-term current use of insulin (HCC) Take 1 tablet by mouth daily with breakfast. 30 tablet 11 09/15/2022 Active Comment on above: Take 1 tablet by onelia th daily with breakfast. methocarbamol 500 mg oral tablet (7 sources) Muscle Relaxant Start: take 1 tablet by mouth every eight hours Methocarbamol 500 mg tablet Active 500 mg PO Q8H July 09, 2024 1:00am Start: 06-22-2024 End: 09-20-2024 take 1 tablet by mouth three times daily methocarbamol (ROBAXIN) 500 mg tablet Indications: Acute low back pain without sciatica, unspecified back pain laterality Take 1 tablet by mouth three times a day. 90 tablet 2 06/22/2024 09/20/2024 Active 24 hr metoprolol succinate 50 mg extended release oral tablet (20 sources) beta-Adrenergic Brett Start: 09-05-2015 End: 11-21-2024 take 1 tablet by mouth once daily metoprolol succinate ER (TOPROL XL) 50 mg 24 hr tablet Indications: Mitral valve insufficiency, unspecified etiology , Non-rheumatic tricuspid valve insufficiency , Pulmonary hypertension (HCC) Take 1 tablet by mouth once daily. 90 tablet 3 11/22/2023 11/21/2024 Active Start: 07-23-2015 End: 03-09-2022 take 1 tablet by mouth twice daily metoprolol tartrate, short acting, (LOPRESSOR) 50 mg tablet Take 1 tablet by mouth twice daily. 60 tablet 0 07/23/2015 03/09/2022 Discontinued Start: 02-10-2015 End: 04-29-2015 take 1 tablet by mouth twice daily Metoprolol Tartrate 50 MG tablet Discontinued 50 mg PO TWICE A DAY 60 February 10, 2015 12:02pm April 29, 2015 5:28pm Start: 02-09-2015 End: 02-10-2015 take 1 tablet by mouth twice daily Metoprolol Tartrate 25 MG tablet Discontinued 25 mg PO TWICE A DAY February 09, 2015 12:00am February 10, 2015 12:01pm Start: 09-16-2014 End: 09-17-2014 take 1 tablet by mouth twice daily Metoprolol Tartrate 25 MG tablet Discontinued 25 mg PO TWICE A DAY September 16, 2014 12:00am September 17, 2014 9:30am Comment on above: Take 1 tablet by onelia th twice daily. Take 50 mg by mouth once daily. Take 1 tablet by onelia th once daily. perflutren lipid microspheres 1.3 mL in NaCl (PF) 0.9% 10 mL injection (DEFINITY) (13 sources) Start: 2 End: 4 perflutren lipid microspheres 1.3 mL in NaCl (PF) 0.9% 10 mL injection (DEFINITY) predniSONE 20 mg oral tablet (2 sources) Start: 5 take 2 tablets by mouth at breakfast Prednisone 20 mg Tablet Active 40 mg PO WITH BREAKFAST July 11, 2024 1:00am 125 ml sodium chloride 9 mg/ml prefilled syringe (13 sources) Start: 2 End: 4 sodium chloride 0.9 % (flush) 10 mL (BD POSIFLUSH) divalproex sodium 500 mg delayed release oral tablet (20 sources) Mood Stabilizer, Anti-epileptic Agent Start: 3 End: 5 take 1 tablet by mouth twice daily divalproex DR (DEPAKOTE) 500 mg EC tablet Indications: Seizures (HCC) Take 1 tablet by mouth two times a day. 180 tablet 1 06/14/2024 12/11/2024 Active Start: 03-04-2021 End: 07-02-2022 take 1 tablet by mouth twice daily divalproex DR (DEPAKOTE) 500 mg EC tablet Indications: Seizures (HCC) Take 1 tablet by mouth twice daily for 14 days. Needs seen and labs to continue to prescribe. 28 tablet 0 03/08/2022 06/18/2022 Discontinued Start: 10-30-2020 End: 11-15-2022 take 1 tablet by mouth once daily Divalproex (Depakote) 500 mg tablet,delayed release (DR/EC) Discontinued 500 mg PO DAILY October 30, 2020 12:00am November 15, 2022 2:04pm Comment on above: Take 1 tablet by onelia th twice daily. Needs seen and labs to continue to prescribe. Take 1 tablet by onelia th twice daily for 14 days. Needs seen and labs to continue to prescribe. Take 1 tablet by onelia th twice daily. Completed/Discontinued Medications Medication Drug Class(es) Dates Sig (Normalized) Sig (Original) acetaminophen 325 mg / oxyCODONE hydrochloride 5 mg oral tablet (4 sources) Opioid Agonist Start: 04-15-2013 End: 06-30-2013 Oxycodone-Acetamino phen 1 TABLET tablet Discontinued 1 - 2 {tbl} PO EVERY 4 HOURS NEEDED as needed for Pain April 15, 2013 1:00am June 30, 2013 1:08pm Start: 04-15-2013 End: 06-30-2013 take 1 tablet by mouth every four hours as needed Oxycodone-Acetaminophen Discontinued 1 - 2 TABLET PO EVERY 4 HOURS NEEDED April 15, 2013 12:00am June 30, 2013 12:08pm ascorbic acid 500 mg oral tablet (18 sources) Vitamin C End: 09-30-2022 take 1 tablet by mouth once daily ascorbic acid, vitamin C, (VITAMIN C) 500 mg tablet Take 500 mg by mouth once daily. 09/30/2022 Discontinued (Other) Comment on above: Take 500 mg by mouth once daily. aspirin 325 mg delayed release oral tablet (8 sources) Platelet Aggregation Inhibitor, Nonsteroidal Anti-inflammatory Drug Start: 04-26-2015 End: 04-29-2015 take 1 tablet by mouth once daily Aspirin 325 MG tablet Discontinued 325 mg PO DAILY@0800 April 26, 2015 1:00am April 29, 2015 5:29pm Start: 09-16-2014 End: 09-17-2014 take 1 tablet by mouth once daily Aspirin 325 MG tablet Discontinued 325 mg PO DAILY@0800 September 16, 2014 12:00am September 17, 2014 9:30am atorvastatin 80 mg oral tablet (20 sources) HMG-CoA Reductase Inhibitor Start: 03-30-2019 End: 09-24-2021 atorvastatin (LIPITOR) 80 mg tablet Indications: Mixed hyperlipidemia 0 03/30/2019 09/24/2021 Discontinued Start: 04-26-2015 End: 07-03-2018 take 1 tablet by mouth at bedtime Atorvastatin 80 mg tablet Discontinued 80 mg PO AT BEDTIME June 26, 2018 3:42pm July 03, 2018 9:46am carBAMazepine 200 mg oral tablet (4 sources) Mood Stabilizer Start: 04-26-2015 End: 04-29-2015 take 1 tablet by mouth twice daily at mealtime Carbamazepine 200 MG tablet Discontinued 400 mg PO TWICE DAILY WITH MEALS April 26, 2015 1:00am April 29, 2015 5:29pm Start: 04-26-2015 End: 04-29-2015 take 400 mg by mouth twice daily at mealtime Carbamazepine Discontinued 400 MG PO TWICE DAILY WITH MEALS April 26, 2015 12:00am April 29, 2015 4:29pm cholecalciferol 0.025 mg oral tablet (4 sources) Vitamin D Start: 04-26-2015 End: 11-17-2022 take 2 tablets by mouth once daily Cholecalciferol (Vitamin D3) (Vitamin D3) 1,000 UNIT tablet Discontinued 2000 U PO DAILY April 26, 2015 1:00am November 17, 2022 3:04pm 24 hr dilTIAZem hydrochloride 240 mg extended release oral capsule (20 sources) Calcium Channel Brett Start: 04-29-2015 End: 12-05-2023 take 1 capsule by mouth once daily Diltiazem Hcl 240 mg capsule,extended release 24hr Discontinued 240 mg PO DAILY 90 September 06, 2023 8:48pm December 05, 2023 9:41am Start: 02-10-2015 End: 02-10-2015 take 1 capsule by mouth twice daily Diltiazem Hcl 120 MG capsule Discontinued 120 mg PO TWICE A DAY 60 February 10, 2015 12:00am February 10, 2015 12:35pm Comment on above: Take 1 capsule by [facility] once daily. folic acid/multivit-min/ lutein (CENTRUM SILVER ORAL) (20 sources) End: 11-23-2023 take 1 tablet by mouth once daily folic acid/multivit-min/lute in (CENTRUM SILVER ORAL) Take 1 tablet by mouth once daily. 0 11/23/2023 Discontinued take 1 tablet by mouth once dale y folic acid/multivit-min/lutein (CENTRUM SILVER ORAL) Take 1 tablet by mouth once daily. 0 Active Comment on above: Take 1 tablet by [facility] once daily. guaifenesin/dextrometh orphan (DEXTROMETHORPHAN-GUAI FENESIN ORAL) (3 sources) End: 09-24-2021 guaifenesin/dextromethorph an (DEXTROMETHORPHAN-GUAIFENE SIN ORAL) Indications: Cough Take by mouth as needed. 09/24/2021 Discontinued End: 09-24-2021 guaifenesin/dextromethorphan (DEXTROMETHORPHAN-GUAIFENESIN ORAL) Indications: Cough Take by mouth as needed. 0 09/24/2021 Discontinued guaifenesin/dext romethorphan (DEXTROMETHORPHAN-GUAIFENESIN ORAL) Indications: Cough Take by mouth as needed. 0 Active Comment on above: Take by mouth as nee ded. hydroCHLOROthiazide 25 mg oral tablet (4 sources) Thiazide Diuretic Start: 3 End: 4 Hydrochlorothiazide 25 MG tablet Discontinued April 15, 2013 1:00am June 30, 2013 1:09pm Start: 04-15-2013 End: 06-30-2013 Hydrochlorothiazide Dischangi nued April 15, 2013 12:00am June 30, 2013 12:09pm hydroCHLOROthiazide 12.5 mg / lisinopril 10 mg oral tablet (4 sources) Thiazide Diuretic, Angiotensin Converting Enzyme Inhibitor Start: 04-15-2013 End: 09-17-2014 take 1 tablet by mouth once daily Lisinopril-Hydrochlorothiazide (Zestoretic 10/12.5 Tablet) 1 TABLET tablet Discontinued 2 {tbl} PO DAILY April 15, 2013 1:00am September 17, 2014 9:30am Uw-Lmg-Xxqde-K1-Lycop en-Lutein (Centrum Silver Men) 300-600-300 mcg tablet (3 sources) Start: 11-15-2022 End: 11-17-2022 Hd-Bsu-Tycxa-B2-Mdpszfa-Vhgp in (Centrum Silver Men) 300-600-300 mcg tablet Discontinued 1 {tbl} PO DAILY November 15, 2022 12:00am November 17, 2022 3:04pm Start: 11-15-2022 End: 11-17-2022 take 300-600 tablets by mouth once daily Ef-Uyi-Rdmki-L1-Vjmswzy-Joyxth (Centrum Silver Men) 300-600-300 mcg tablet Discontinued 1 TABLET PO DAILY November 14, 2022 11:00pm November 17, 2022 2:04pm ondansetron 4 mg disintegrating oral tablet (4 sources) Serotonin-3 Receptor Antagonist Start: 04-15-2013 End: 06-30-2013 take 1 tablet by mouth every eight hours as needed for nausea Ondansetron 4 MG tablet Discontinued 4 mg PO EVERY 8 HOURS NEEDED as needed for Nausea April 15, 2013 1:00am June 30, 2013 1:08pm phenylephrine hydrochloride 25 mg/ml ophthalmic solution (2 sources) alpha-1 Adrenergic Agonist Start: 04-12-2022 End: 04-13-2022 PHENYLephrine 2.5 % 1 Drop (AK-DILATE, KHOI-SYNEPHRINE) pravastatin sodium 80 mg oral tablet (3 sources) HMG-CoA Reductase Inhibitor Start: 07-23-2015 End: 09-24-2021 take 1 tablet by mouth once daily pravastatin (PRAVACHOL) 80 mg tablet Take 1 tablet by mouth once daily. 0 07/23/2015 09/24/2021 Discontinued Comment on above: Take 1 tablet by onelia th once daily. proparacaine hydrochloride 5 mg/ml ophthalmic solution (2 sources) Local Anesthetic Start: 04-12-2022 End: 04-13-2022 proparacaine 0.5 % 1 Drop (ALCAINE) tropicamide 10 mg/ml ophthalmic solution (2 sources) Anticholinergic Start: 04-12-2022 End: 04-13-2022 tropicamide 1 % 1 Drop (MYDRIACYL) warfarin sodium 5 mg oral tablet (4 sources) Vitamin K Antagonist Start: 04-26-2015 End: 04-29-2015 take 1 tablet by mouth once daily Warfarin (Coumadin (Pbkc)) 5 MG tablet Discontinued 5 mg PO DAILY April 26, 2015 1:00am April 29, 2015 5:29pm Problems Active Problems Problem Classification Problem Date Documented Date Episodic/Chronic Adjustment disorders (20 sources) Adjustment disorder with mixed emotional features; Translations: [Adjustment disorder with other symptoms] Onset: 09-30-2022 09-30-2022 Chronic Anxiety disorders (20 sources) Anxiety state; Translations: [Generalized anxiety disorder] Onset: 09-30-2022 Chronic Blindness and vision defects (20 sources) Loss of part of visual field ; Translations: [Unspecified visual loss] Onset: 03-09-2022 Chronic Blindness and vision defects (5 sources) Presbyopia; Translations: [Presbyopia] Episodic Cardiac dysrhythmias (20 sources) Atrial fibrillation; Translations: [Unspecified atrial fibrillation] Onset: 10-12-2024 07-26-2017 Chronic Cataract (1 source) Bilateral senile combined form cataracts of eyes; Translations: [Combined forms of age-related cataract, bilateral] Chronic Chronic kidney disease (2 sources) Chronic kidney disease stage 3; Translations: [Stage 3 chronic kidney disease, unspecified whether stage 3a or 3b CKD (HCC)] Chronic Diabetes mellitus without complication (20 sources) Type 2 diabetes mellitus without complication; Translations: [Type 2 diabetes mellitus without complications] Onset: 03-26-2021 Chronic Disorders of lipid metabolism (20 sources) Hyperlipidemia; Translations: [Hyperlipidemia, unspecified] Onset: 07-23-2015 07-23-2015 Chronic Essential hypertension (20 sources) Hypertensive disorder; Translations: [Essential (primary) hypertension] Onset: 07-23-2015 07-23-2015 Chronic Gout and other crystal arthropathies (1 source) Gout, unspecified; Translations: [Gout, unspecified] Onset: 09-11-2024 Chronic Headache; including migraine (20 sources) Migraine; Translations: [Migraine, unspecified, not intractable, without status migrainosus] Onset: 09-30-2022 Chronic Heart valve disorders (20 sources) Mitral valve regurgitation; Translations: [Nonrheumatic mitral (valve) insufficiency] Onset: 07-26-2017 07-26-2017 Chronic Inflammation; infection of eye (except that caused by tuberculosis or sexually transmitteddisease) (1 source) Bilateral punctate keratitis of eyes; Translations: [Punctate keratitis, bilateral] Chronic Late effects of cerebrovascular disease (2 sources) Residual cognitive deficit as late effect of cerebrovascular accident; Translations: [Unspecified symptoms and signs involving cognitive functions following cerebral infarction] Onset: 11-22-2023 11-22-2023 Chronic Mycoses (1 source) Onychomycosis; Translations: [Tinea unguium] Episodic Other and ill-defined cerebrovascular disease (4 sources) Cerebrovascular disease; Translations: [Cerebrovascular disease, unspecified] 11-15-2022 Chronic Comment on above: Mild carotid artery diseaseLeft MCA thrombus embolic ischemic stroke related to atrial fibrillation; aphasia Other and ill-defined heart disease (20 sources) Left atrial enlargement; Translations: [Cardiomegaly] Onset: 09-30-2022 09-30-2022 Chronic Other and ill-defined heart disease (1 source) Cardiomegaly; Translations: [Left atrial enlargement] Onset: 09-30-2022 Chronic Other and unspecified benign neoplasm (1 source) Multiple atypical melanocytic nevi; Translations: [Melanocytic nevi, unspecified] Episodic Other circulatory disease (20 sources) Disorder of thoracic aorta; Translations: [Other specified disorders of arteries and arterioles] Onset: 07-26-2017 07-26-2017 Chronic Other circulatory disease (1 source) Other specified disorders of arteries and arterioles; Translations: [Enlarged thoracic aorta (HCC)] Onset: 07-26-2017 Chronic Other circulatory disease (4 sources) History of embolic cerebrovascular accident; Translations: [Personal history of transient ischemic attack (TIA), and cerebral infarction without residual deficits] 11-15-2022 Episodic Comment on above: LMCA territory in Ap ril 2015 Other connective tissue disease (2 sources) Neurological symptom; Translations: [Other symptoms and signs involving the nervous system] Episodic Other connective tissue disease (1 source) Pain in right foot; Translations: [Pain in right foot] 03-12-2021 Episodic Other connective tissue disease (4 sources) Pain in lower limb; Translations: [Pain in right leg] 07-19-2024 Episodic Other fractures (1 source) Compression fracture of lumbar spine; Translations: [Wedge compression fracture of first lumbar vertebra, initial encounter for closed fracture] 06-22-2024 Episodic Other non-traumatic joint disorders (1 source) Acute ankle pain; Translations: [Pain in right ankle and joints of right foot] 03-12-2021 Episodic Other non-traumatic joint disorders (4 sources) Ankle pain; Translations: [Pain in right ankle and joints of right foot] 07-19-2024 Episodic Other nutritional; endocrine; and metabolic disorders (1 source) H/O: thyroid disorder; Translations: [Personal history of other endocrine, nutritional and metabolic disease] Episodic Other skin disorders (1 source) Disorder of nail; Translations: [Other nail disorders] 11-22-2023 Episodic Other upper respiratory infections (2 sources) Sore throat symptom; Translations: [Acute pharyngitis, unspecified] 12-07-2022 Episodic Belkys-; endo-; and myocarditis; cardiomyopathy (except that caused by tuberculosis or sexually transmitted disease) (5 sources) Heart valve disorder; Translations: [Endocarditis, valve unspecified] 11-15-2022 Chronic Comment on above: mitral valve thicken ing with mild MR and mild - moderate TR Peripheral and visceral atherosclerosis (1 source) Peripheral vascular disease; Translations: [Peripheral vascular disease, unspecified] Chronic Pulmonary heart disease (20 sources) Idiopathic pulmonary arterial hypertension ; Translations: [Primary pulmonary hypertension] Onset: 07-26-2017 07-26-2017 Chronic Residual codes; unclassified (2 sources) Edema; Translations: [Edema, unspecified] Episodic Spondylosis; intervertebral disc disorders; other back problems (1 source) Acute low back pain; Translations: [Acute low back pain without sciatica, unspecified back pain laterality] 06-22-2024 Episodic Unclassified (1 source) Acute low back pain without sciatica, unspecified back pain laterality; Translations: [Acute low back pain without sciatica, unspecified back pain laterality] Onset: 06-22-2024 Unclassified (1 source) 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; Translations: [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 (HCC)] Onset: 01-21-2022 Past or Other Problems Problem Classification Problem Date Documented Date Episodic/Chronic Administrative/social admission (17 sources) Repeated prescription; Translations: [Encounter for issue of repeat prescription] Onset: 09-30-2022 Resolved: 09-30-2022 09-30-2022 Episodic Allergic reactions (19 sources) Allergic condition; Translations: [Allergy, unspecified, initial encounter] Onset: 09-30-2022 09-30-2022 Episodic Diabetes mellitus without complication (19 sources) Hyperglycemia; Translations: [Hyperglycemia, unspecified] Onset: 03-23-2017 Resolved: 03-26-2021 Episodic E Codes: Fall (2 sources) Fall; Translations: [Unspecified fall, initial encounter] Onset: 06-22-2024 06-22-2024 Episodic Epilepsy; convulsions (20 sources) Partial epilepsy with impairment of consciousness; Translations: [Localization-relate d (focal) (partial) symptomatic epilepsy and epileptic syndromes with complex partial seizures, not intractable, without status epilepticus] Onset: 06-27-2020 Resolved: 03-25-2021 Chronic Epilepsy; convulsions (20 sources) Seizure; Translations: [Unspecified convulsions] Onset: 07-23-2015 07-23-2015 Episodic Headache; including migraine (17 sources) Headache; Translations: [Headache] Onset: 09-30-2022 Resolved: 09-30-2022 09-30-2022 Episodic Heart valve disorders (17 sources) Heart murmur; Translations: [Cardiac murmur, unspecified] Onset: 09-30-2022 Resolved: 09-30-2022 09-30-2022 Episodic Immunizations and screening for infectious disease (20 sources) Viral screening status; Translations: [Encounter for screening for other viral diseases] Onset: 03-09-2022 Resolved: 09-30-2022 Episodic Intracranial injury (19 sources) Intracranial injury; Translations: [Intracranial injury of other and unspecified nature] Onset: 09-30-2022 09-30-2022 Episodic Neoplasms of unspecified nature or uncertain behavior (19 sources) Neoplasm of uncertain behavior of skin; Translations: [Neoplasm of uncertain behavior of skin] Onset: 09-30-2022 09-30-2022 Episodic Other aftercare (20 sources) Long-term current use of anticoagulant; Translations: [longterm (current) use of anticoagulants] Onset: 09-30-2022 09-30-2022 Episodic Other aftercare (1 source) longterm (current) use of anticoagulants; 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] Onset: 09-30-2022 Episodic Other injuries and conditions due to external causes (20 sources) H/O: head injury; Translations: [Personal history of (healed) traumatic fracture] Onset: 09-30-2022 Episodic Other nervous system disorders (20 sources) Dow's palsy; 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] Onset: 09-30-2022 09-30-2022 Episodic Other non-traumatic joint disorders (1 source) Pain in right ankle and joints of right foot; Translations: [Pain in right ankle and joints of right foot] Onset: 07-16-2024 Episodic Other non-traumatic joint disorders (1 source) Pain in left ankle and joints of left foot; Translations: [Pain in left ankle and joints of left foot] Onset: 07-16-2024 Episodic Other screening for suspected conditions (not mental disorders or infectious disease) (20 sources) Patient encounter status; Translations: [Encounter for screening for malignant neoplasm of colon] Onset: 09-30-2022 Resolved: 09-30-2022 Episodic Other upper respiratory disease (19 sources) Polyp of nasal sinus; Translations: [Other polyp of sinus] Onset: 09-30-2022 09-30-2022 Episodic Residual codes; unclassified (20 sources) Noncompliance with treatment; Translations: [Noncompliance with treatment] Onset: 09-30-2022 09-30-2022 Episodic Skull and face fractures (20 sources) Fracture of skull; Translations: [Unspecified fracture of skull, initial encounter for closed fracture] Onset: 09-30-2022 Resolved: 09-30-2022 11-15-2022 Episodic Syncope (20 sources) Syncope and collapse; Translations: [Syncope and collapse] Onset: 09-30-2022 Resolved: 09-30-2022 11-15-2022 Episodic Results Test Name Value Interpretation Reference Range Facility [id number] 11-08-2024 [facility]. COMMENT Normal . [facility] Comment on above: Order Comment: [id number] Result Comment: Test Ordered: [id number] Diltiazem(Cardizem,Dilacor) S Diltiazem <20 [L ] ng/ml MX Reference Range: 50 - 200 Note: Analysis performed on a micro-specimen. This test was developed and its performance characteristics determined by [facility]. It has not been cleared or approved by the Food and Drug Administration. Performed at: [facility] [address] [place] [id number] Central Sterilization Technician: Calry Azar [employer], Phone: [phone] Performed at: [address] [id number] Central Sterilization Technician: Enrico Berg PhD, Phone: [phone] Performed By: #### L 500.4050, L503.6005, L300.8000, L100.0100, L501.5425 #### [facility] [address] [place], [place], [id number] [id number] 10-30-2024 [facility]. COMMENT Normal . [facility] Comment on above: Order Comment: Y Result Comment: Test Ordered: [id number] Diltiazem(Cardizem,Dilacor) S Diltiazem ng/ml MX Reference Range: . Test not performed Initial assay failure. Insufficient specimen volume to repeat analysis. Performed at: [facility] [address] [place] [id number] Central Sterilization Technician: Carly Azar [employer], Phone: [phone] Performed at: [address] [id number] Central Sterilization Technician: Enrico Berg PhD, Phone: [phone] Performed By: #### L 500.4050, L503.6005, L300.8000, L100.0100, L501.5425 #### [facility] [address] [place], [address] [facility] C[facility] Telephone (JOIEWS) REINA SULLIVAN ([id number]) 1955 M Date Time Provider Department 10/25/24 ARIC ZAPIEN During your visit today, we recorded the following information about you: Nida Root LPN 10/25/2024 12:30 PM Signed No show letter #2 sent to patient. Allergies As of Date: 10/25/2024 Noted Allergy Reaction DYE 03/02/2016 14 - Other: See Comments Comments: used for heart cath Date Reviewed: 06/22/2024 Reviewed by: Felicita Bolden MA - Fully Assessed Reason for Visit: Letter [264] Cmt: No show #2 Prescriptions as of 10/25/2024 - lisinopril 2.5 mg tablet Take 1 tablet by mouth once daily. For kidneys - divalproex DR (DEPAKOTE) 500 mg EC tablet Take 1 tablet by mouth two times a day. - metFORMIN ER (GLUCOPHAGE XR) 500 mg 24 hr tablet Take 1 tablet by mouth daily with breakfast. - metoprolol succinate ER (TOPROL XL) 50 mg 24 hr tablet Take 1 tablet by mouth once daily. - furosemide (LASIX) 40 mg tablet Take 1 tablet by mouth once daily. - Lancets lancets Test blood sugar(s) 1 times daily. Dx: Type 2 DM - Uncontrolled E11.65 Insulin: No - blood sugar diagnostic (BLOOD GLUCOSE TEST) test strip Test blood sugar(s) 1 times daily. Dx: Type 2 DM - Uncontrolled E11.65 Insulin: No - apixaban (ELIQUIS) 5 mg tab tab(s) Take 1 tablet by mouth twice daily. Problem List As Of Date 10/25/2024 Noted Resolved 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 (HCC) [I48.21] HTN (hypertension) [I10] Hyperlipidemia [E78.5] Seizures (HCC) [R56.9] Hyperglycemia [R73.9] 03/23/2017 03/26/2021 Primary pulmonary HTN (HCC) [I27.0] 07/26/2017 Mitral regurgitation [I34.0] 07/26/2017 Non-rheumatic tricuspid valve insufficiency [I3*07/26/2017 Enlarged thoracic aorta (HCC) [I77.89] 07/26/2017 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 status epilepticus*06/27/2020 03/25/2021 Type 2 diabetes mellitus without complication, *03/26/2021 Encounter for hepatitis C screening test for lo*03/09/2022 09/30/2022 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/09/2022 Adjustment disorder with mixed emotional featur*09/30/2022 Allergy [T78.40XA] 09/30/2022 Anxiety state [F41.1] 09/30/2022 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 Encounter for issue of repeat prescription [Z76*09/30/2022 09/30/2022 Fracture of skull (HCC) [S02.91XA] 09/30/2022 09/30/2022 Headache [R51.9] 09/30/2022 09/30/2022 High serum creatinine [R79.89] 09/30/2022 09/30/2022 Intracranial injury of other and unspecified na*09/30/2022 Left atrial enlargement [I51.7] 09/30/2022 longterm current use of 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 *09/30/2022 Migraine headache [G43.909] 09/30/2022 Need for Streptococcus pneumoniae vaccination [*09/30/2022 Neoplasm of uncertain behavior of skin [D48.5] 09/30/2022 Noncompliance with treatment [Z91.199] 09/30/2022 Other polyp of sinus [J33.8] 09/30/2022 Pulmonary hypertension (HCC) [I27.20] 09/30/2022 Syncope and collapse [R55] 09/30/2022 09/30/2022 Undiagnosed cardiac murmurs [R01.1] 09/30/2022 09/30/2022 History of skull fracture [Z87.81] 09/30/2022 Letter Text Encounter Status:Closed by NIDA ROOT on 5/29/25 Normal [facility] CBC W/Diff, Automatedon 05-2 Absolute Lymph 2.10 X10 3/uL Normal 0.83-4.51 [facility] Comment on above: Order Comment: 133 Performed By: #### L 500.4050, L503.6005, L300.8000, L100.0100, L501.5425 #### [facility] [address] [place], [address] Absolute Neut 3.2 X10 3/uL Normal 2.0-7.7 [facility] Comment on above: Order Comment: 133 Performed By: #### L 500.4050, L503.6005, L300.8000, L100.0100, L501.5425 #### [facility] [address] [place], [address] Basophils/100 WBC (Bld) 0.6 % Normal 0-1 [facility] Comment on above: Order Comment: 133 Performed By: #### L 500.4050, L503.6005, L300.8000, L100.0100, L501.5425 #### [facility] [address] [place], [address] Eosinophils/100 WBC (Bld) 5.3 % High 0-5 [facility] Comment on above: Order Comment: 133 Performed By: #### L 500.4050, L503.6005, L300.8000, L100.0100, L501.5425 #### [facility] [address] [place], [address] Erythrocyte distribution width (RBC) [Ratio] 15.0 % High 11.6-14.6 [facility] Comment on above: Order Comment: 133 Performed By: #### L 500.4050, L503.6005, L300.8000, L100.0100, L501.5425 #### [facility] [address] [place], [address] Hematocrit (Bld) [Volume fraction] 42.2 % Normal 40-54 [facility] Comment on above: Order Comment: 133 Performed By: #### L 500.4050, L503.6005, L300.8000, L100.0100, L501.5425 #### [facility] [address] [place], [address] Hemoglobin (Bld) [Mass/Vol] 13.7 g/dL Normal 13.0-16.5 [facility] Comment on above: Order Comment: 133 Performed By: #### L 500.4050, L503.6005, L300.8000, L100.0100, L501.5425 #### [facility] [address] [place], [address] IG% 0.500 Normal 0.0-0.9 [facility] Comment on above: Order Comment: 133 Result Comment: IG% - Immature Granulocytes (promyelocytes, myelocytes and metamyelocytes) > 1% indicates that a LEFT SHIFT is Present. Performed By: #### L 500.4050, L503.6005, L300.8000, L100.0100, L501.5425 #### [facility] [address] [place], [address] Lymphocytes/100 WBC (Bld) 33.4 % Normal 19-41 [facility] Comment on above: Order Comment: 133 Performed By: #### L 500.4050, L503.6005, L300.8000, L100.0100, L501.5425 #### [facility] [address] [place], [address] MCH (RBC) [Entitic mass] 30.7 pg Normal 27.0-32.0 [facility] Comment on above: Order Comment: 133 Performed By: #### L 500.4050, L503.6005, L300.8000, L100.0100, L501.5425 #### [facility] [address] [place], [address] MCHC (RBC) [Mass/Vol] 32.5 g/dL Normal 32-36 [facility] Comment on above: Order Comment: 133 Performed By: #### L 500.4050, L503.6005, L300.8000, L100.0100, L501.5425 #### [facility] [address] [place], [address] MCV (RBC) [Entitic vol] 94.6 fL High 80-94 [facility] Comment on above: Order Comment: 133 Performed By: #### L 500.4050, L503.6005, L300.8000, L100.0100, L501.5425 #### [facility] [address] [place], [address] Monocytes/100 WBC (Bld) 9.4 % Normal 0-10 [facility] Comment on above: Order Comment: 133 Performed By: #### L 500.4050, L503.6005, L300.8000, L100.0100, L501.5425 #### [facility] [address] [place], [address] Neutrophils/100 WBC (Bld) 50.8 % Normal 47-70 [facility] Comment on above: Order Comment: 133 Performed By: #### L 500.4050, L503.6005, L300.8000, L100.0100, L501.5425 #### [facility] [address] [place], [address] Nucleated RBC (Bld) [#/Vol] 0 10*3/uL Normal 0-5 [facility] Comment on above: Order Comment: 133 Performed By: #### L 500.4050, L503.6005, L300.8000, L100.0100, L501.5425 #### [facility] [address] [place], [address] Platelet mean volume (Bld) [Entitic vol] 10.9 fL Normal 6.2-12.0 [facility] Comment on above: Order Comment: 133 Performed By: #### L 500.4050, L503.6005, L300.8000, L100.0100, L501.5425 #### [facility] [address] [place], [address] Platelets (Bld) [#/Vol] 236 10*3/uL Normal 150-450 [facility] Comment on above: Order Comment: 133 Performed By: #### L 500.4050, L503.6005, L300.8000, L100.0100, L501.5425 #### [facility] [address] [place], [address] RBC (Bld) [#/Vol] 4.46 10*6/uL Low 4.6-6.2 [facility] Comment on above: Order Comment: 133 Performed By: #### L 500.4050, L503.6005, L300.8000, L100.0100, L501.5425 #### [facility] [address] [place], [address] RDW SD 52.3 fl High 35.1-43.9 [facility] Comment on above: Order Comment: 133 Performed By: #### L 500.4050, L503.6005, L300.8000, L100.0100, L501.5425 #### [facility] [address] [place], [address] WBC (Bld) [#/Vol] 6.3 10*3/uL Normal 4.4-11.0 [facility] Comment on above: Order Comment: 133 Performed By: #### L 500.4050, L503.6005, L300.8000, L100.0100, L501.5425 #### [facility] [address] [place], [address] Comprehensive Metabolic Prof [facility] 10-23-2024 Albumin [Mass/Vol] 4.2 g/dL Normal 3.4-4.8 [facility] Comment on above: Order Comment: 133 Performed By: #### L 500.4050, L503.6005, L300.8000, L100.0100, L501.5425 #### [facility] [address] [place], [address] Albumin/Globulin [Mass ratio] 1.7 {ratio} Normal 0.9-2.4 [facility] Comment on above: Order Comment: 133 Performed By: #### L 500.4050, L503.6005, L300.8000, L100.0100, L501.5425 #### [facility] [address] [place], [address] ALK PHOS 63 U/L Normal 40-129 [facility] Comment on above: Order Comment: 133 Performed By: #### L 500.4050, L503.6005, L300.8000, L100.0100, L501.5425 #### [facility] [address] [place], [address] ALT [Catalytic activity/Vol] 13 U/L Normal <=46 [facility] Comment on above: Order Comment: 133 Performed By: #### L 500.4050, L503.6005, L300.8000, L100.0100, L501.5425 #### [facility] [address] [place], [address] AST [Catalytic activity/Vol] 16 U/L Normal <=37 [facility] Comment on above: Order Comment: 133 Performed By: #### L 500.4050, L503.6005, L300.8000, L100.0100, L501.5425 #### [facility] [address] [place], [address] Bilirubin [Mass/Vol] 0.30 mg/dL Normal 0.00-1.30 [facility] Comment on above: Order Comment: 133 Performed By: #### L 500.4050, L503.6005, L300.8000, L100.0100, L501.5425 #### [facility] [address] [place], [address] BUN/CRE 18.7 RATIO Normal 10-20 [facility] Comment on above: Order Comment: 133 Performed By: #### L 500.4050, L503.6005, L300.8000, L100.0100, L501.5425 #### [facility] [address] [place], [address] Calcium [Mass/Vol] 9.4 mg/dL Normal 7.6-11.0 [facility] Comment on above: Order Comment: 133 Performed By: #### L 500.4050, L503.6005, L300.8000, L100.0100, L501.5425 #### [facility] [address] [place], [address] Chloride [Moles/Vol] 106 mmol/L Normal 98-108 [facility] Comment on above: Order Comment: 133 Performed By: #### L 500.4050, L503.6005, L300.8000, L100.0100, L501.5425 #### [facility] [address] [place], [address] CO2 [Moles/Vol] 24.9 mmol/L Normal 21.0-32.0 [facility] Comment on above: Order Comment: 133 Performed By: #### L 500.4050, L503.6005, L300.8000, L100.0100, L501.5425 #### [facility] [address] [place], [address] Creatinine [Mass/Vol] 1.27 mg/dL High 0.70-1.20 [facility] Comment on above: Order Comment: 133 Performed By: #### L 500.4050, L503.6005, L300.8000, L100.0100, L501.5425 #### [facility] [address] [place], [address] GAP 12 Normal 5-15 [facility] Comment on above: Order Comment: 133 Performed By: #### L 500.4050, L503.6005, L300.8000, L100.0100, L501.5425 #### [facility] [address] [place], [address] GFR/1.73 sq M.predicted among non-blacks MDRD (S/P/Bld) [Vol rate/Area] 62 mL/min/{1.73_m2} Normal >60 [facility] Comment on above: Order Comment: 133 Result Comment: mL/m in/1.73m2 CKD-EPI Creatinine Equation (2020) Performed By: #### L 500.4050, L503.6005, L300.8000, L100.0100, L501.5425 #### [facility] [address] [place], [address] Globulin (S) [Mass/Vol] 2.4 g/dL Normal 2.2-4.2 [facility] Comment on above: Order Comment: 133 Performed By: #### L 500.4050, L503.6005, L300.8000, L100.0100, L501.5425 #### [facility] [address] [place], [address] Glucose [Mass/Vol] 97 mg/dL Normal 70-99 [facility] Comment on above: Order Comment: 133 Performed By: #### L 500.4050, L503.6005, L300.8000, L100.0100, L501.5425 #### [facility] [address] [place], [address] Potassium [Moles/Vol] 4.4 mmol/L Normal 3.3-5.1 [facility] Comment on above: Order Comment: 133 Performed By: #### L 500.4050, L503.6005, L300.8000, L100.0100, L501.5425 #### [facility] [address] [place], [address] Sodium [Moles/Vol] 143 mmol/L Normal 133-145 [facility] Comment on above: Order Comment: 133 Performed By: #### L 500.4050, L503.6005, L300.8000, L100.0100, L501.5425 #### [facility] [address] [place], [address] T PROT 6.7 g/dL Normal 5.9-8.4 [facility] Comment on above: Order Comment: 133 Performed By: #### L 500.4050, L503.6005, L300.8000, L100.0100, L501.5425 #### [facility] [address] [place], [address] Urea nitrogen [Mass/Vol] 24 mg/dL High 4-19 [facility] Comment on above: Order Comment: 133 Performed By: #### L 500.4050, L503.6005, L300.8000, L100.0100, L501.5425 #### [facility] [address] [place], [address] Hemoglobin A1con 10-23-2024 HbA1c (Bld) [Mass fraction] 6.2 % High <=5.6 [facility] Comment on above: Order Comment: Y Result Comment: Norm al < 5.7 % Prediabetic 5.7 - 6.4 % Diabetic >or= 6.5 % Please note range changes. Performed By: #### L 500.4050, L503.6005, L300.8000, L100.0100, L501.5425 #### [facility] [address] [place], [address] Magnesiumon 10-23-2024 Magnesium [Mass/Vol] 2.4 mg/dL High 1.5-2.2 [facility] Comment on above: Order Comment: 133 Performed By: #### L 500.4050, L503.6005, L300.8000, L100.0100, L501.5425 #### [facility] [address] [place], [address] Valproic Acid (Depakene) Lev cecil 10-23-2024 VALPROIC ACID 75 ug/mL Normal 50-100 [facility] Comment on above: Order Comment: Y Result Comment: Valp roic Acid concentrations >100 ug/mL are potentially toxic. Performed By: #### L 500.4050, L503.6005, L300.8000, L100.0100, L501.5425 #### [facility] [address] [place], [address] Anion gap in Serum or Plasma Ordered By: Jigna Brantley on 09-26-2024 Anion gap [Moles/Vol] 12 mmol/L 5-15 [facility] BUN/creatinine ratioOrdered By: Jigna Brantley on 09-26-2024 Urea nitrogen/Creatinine [Mass ratio] 24.2 mg/mg High 10-20 [facility] Basic Metabolic Profile (BMP )on 09-26-2024 BUN/CRE 24.2 RATIO High - [facility] Comment on above: Order Comment: 209 Performed By: #### L 501.5200, L500.2500 #### [facility] [address] [place], [address] Calcium [Mass/Vol] 9.8 mg/dL Normal 7.6-11.0 [facility] Comment on above: Order Comment: 209 Performed By: #### L 501.5200, L500.2500 #### [facility] [address] [place], [address] Chloride [Moles/Vol] 103 mmol/L Normal 98-108 [facility] Comment on above: Order Comment: 209 Performed By: #### L 501.5200, L500.2500 #### [facility] [address] [place], [address] CO2 [Moles/Vol] 26.1 mmol/L Normal 21.0-32.0 [facility] Comment on above: Order Comment: 209 Performed By: #### L 501.5200, L500.2500 #### [facility] [address] [place], [address] Creatinine [Mass/Vol] 1.46 mg/dL High 0.70-1.20 [facility] Comment on above: Order Comment: 209 Performed By: #### L 501.5200, L500.2500 #### [facility] [address] [place], [address] GAP 12 Normal 5-15 [facility] Comment on above: Order Comment: 209 Performed By: #### L 501.5200, L500.2500 #### [facility] [address] [place], [address] GFR/1.73 sq M.predicted among non-blacks MDRD (S/P/Bld) [Vol rate/Area] 52 mL/min/{1.73_m2} Low >60 [facility] Comment on above: Order Comment: 209 Result Comment: mL/m in/1.73m2 CKD-EPI Creatinine Equation (2020) Performed By: #### L 501.5200, L500.2500 #### [facility] [address] [place], [address] Glucose [Mass/Vol] 98 mg/dL Normal 70-99 [facility] Comment on above: Order Comment: 209 Performed By: #### L 501.5200, L500.2500 #### [facility] [address] [place], [address] Potassium [Moles/Vol] 4.5 mmol/L Normal 3.3-5.1 [facility] Comment on above: Order Comment: 209 Performed By: #### L 501.5200, L500.2500 #### [facility] [address] [place], [address] Sodium [Moles/Vol] 141 mmol/L Normal 133-145 [facility] Comment on above: Order Comment: 209 Performed By: #### L 501.5200, L500.2500 #### [facility] [address] [place], [address] Urea nitrogen [Mass/Vol] 35 mg/dL High 4-19 [facility] Comment on above: Order Comment: 209 Performed By: #### L 501.5200, L500.2500 #### [facility] [address] [place], [address] Carbon dioxide, total [Moles /volume] in Central venous bloodOrdered By: Jigna Brantley on 09-26-2024 CO2 [Moles/Vol] 26.1 mmol/L 21.0-32.0 [facility] Chloride assayOrdered By: Fabricio Brantley on 09-26-2024 Chloride [Moles/Vol] 103 mmol/L 98-108 [facility] Glomerular filtration rate ( GFR) estimation/1.73 sq m using serum, plasma, or whole bOrdered By: Jigna Brantley on 09-26-2024 GFR/1.73 sq M.predicted among non-blacks MDRD (S/P/Bld) [Vol rate/Area] 52 mL/min/{1.73_m2} Low >60 [facility] Comment on above: mL/min/1.73m2 CKD-EP I Creatinine Equation (2020) Magnesiumon 09-26-2024 Magnesium [Mass/Vol] 2.4 mg/dL High 1.5-2.2 [facility] Comment on above: Order Comment: 209 Performed By: #### L 501.5200, L500.2500 #### [facility] [address] [place], [place], [id number] Magnesium measurement (mass/ volume)Ordered By: Jigna Brantley on 09-26-2024 Magnesium (Unsp spec) [Mass/Vol] 2.4 mg/dL High 1.5-2.2 [facility] Potassium measurement (mass/ volume)Ordered By: Jigna Brantley on 09-26-2024 Potassium (Unsp spec) [Mass/Vol] 4.5 mmol/L 3.3-5.1 [facility] Serum creatinine measurement (mass/volume)Ordered By: Jigna Brantley on 09-26-2024 Creatinine [Mass/Vol] 1.46 mg/dL High 0.70-1.20 [facility] Serum glucose measurement (m ass/volume)Ordered By: Jigna Brantley on 09-26-2024 Glucose [Mass/Vol] 98 mg/dL 70-99 [facility] Serum or plasma calcium rosalina urement (mass/volume)Ordered By: Jigna Brantley on 09-26-2024 Calcium [Mass/Vol] 9.8 mg/dL 7.6-11.0 [facility] Serum or plasma urea nitroge n measurement (mass/volume)Ordered By: Jigna Brantley on 09-26-2024 Urea nitrogen [Mass/Vol] 35 mg/dL High 4-19 [facility] Sodium levelOrdered By: Enoch Brantley on 09-26-2024 Sodium [Moles/Vol] 141 mmol/L 133-145 [facility] CRPon 08-27-2024 C-REACTIVE PROT 37.80 mg/L High 0.0-3.0 [facility] Comment on above: Order Comment: 1 Y Performed By: #### L 500.4050, L503.6005, L300.8000, L100.0100, L501.5425 #### [facility] [address] [place], [place], [id number] CRP [Mass/Vol]Ordered By: Fabricio Brantley on 08-27-2024 C-Reactive Protein Extended Range 37.80 mg/L High 0.0-3.0 [facility] Serum or plasma C reactive p rotein measurement (mass/volume)Ordered By: Jigna Brantley on 08-27-2024 CRP [Mass/Vol] 37.80 mg/L High 0.0-3.0 [facility] Serum or plasma uric acid me asurement (mass/volume)Ordered By: Jignabailey Brantley on 08-27-2024 Urate [Mass/Vol] 7.6 mg/dL High 3.5-7.2 [facility] Comment on above: The drugs N-Acetylcy steine and Metamizole may falsely depress this assay. Uric Acidon 08-27-2024 URIC 7.6 mg/dL High 3.5-7.2 [facility] Comment on above: Order Comment: 1 Y Result Comment: The drugs N-Acetylcysteine and Metamizole may falsely depress this assay. Performed By: #### L 500.4050, L503.6005, L300.8000, L100.0100, L501.5425 #### [facility] [address] [place], [place], [id number] Absolute lymphocyte countOrd ered By: Jignabailey Brantley on 07-23-2024 Lymphocytes Auto (Unsp spec) [#/Vol] 3.24 10*3/uL 0.83-4.51 [facility] Absolute neutrophil countOrd ered By: Jignabailey Brantley on 07-23-2024 Neutrophils (Bld) [#/Vol] 5.5 10*3/uL 2.0-7.7 [facility] Automated lymphocyte count a s percentage of total leukocytesOrdered By: Jigna Brantley on 07-23-2024 Lymphocytes/100 WBC Auto (Unsp spec) 33.6 % 19-41 [facility] Basic Metabolic Profile (BMP )on 07-23-2024 BUN/CRE 16.1 RATIO Normal 10-20 [facility] Comment on above: Order Comment: Y Performed By: #### L 500.4050, L503.6005, L300.8000, L100.0100, L501.5425 #### [facility] [address] [place], [address] CA,Total 8.6 mg/dL Normal 8.5-10.1 [facility] Comment on above: Order Comment: Y Performed By: #### L 500.4050, L503.6005, L300.8000, L100.0100, L501.5425 #### [facility] [address] [place], [address] Chloride [Moles/Vol] 102 mmol/L Normal 98-107 [facility] Comment on above: Order Comment: Y Performed By: #### L 500.4050, L503.6005, L300.8000, L100.0100, L501.5425 #### [facility] [address] [place], [address] CO2 [Moles/Vol] 31.0 mmol/L Normal 21.0-32.0 [facility] Comment on above: Order Comment: Y Performed By: #### L 500.4050, L503.6005, L300.8000, L100.0100, L501.5425 #### [facility] [address] [place], [address] Creatinine [Mass/Vol] 1.37 mg/dL High 0.70-1.30 [facility] Comment on above: Order Comment: Y Result Comment: The validity of the calculated GFR GFRAA in patients over 70 years has not been determined. Clinical correlation is essential. Performed By: #### L 500.4050, L503.6005, L300.8000, L100.0100, L501.5425 #### [facility] [address] [place], [address] EST GFR - AA 67 mL/min Normal >60 [facility] Comment on above: Order Comment: Y Result Comment: Afri can [place] GFR Calc Performed By: #### L 500.4050, L503.6005, L300.8000, L100.0100, L501.5425 #### [facility] [address] [place], [address] GAP 5 Normal 5-15 [facility] Comment on above: Order Comment: Y Performed By: #### L 500.4050, L503.6005, L300.8000, L100.0100, L501.5425 #### [facility] [address] [place], [address] GFR/1.73 sq M.predicted among non-blacks MDRD (S/P/Bld) [Vol rate/Area] 55 mL/min/{1.73_m2} Low >60 [facility] Comment on above: Order Comment: Y Result Comment: Non- GFR Calc Performed By: #### L 500.4050, L503.6005, L300.8000, L100.0100, L501.5425 #### [facility] [address] [place], [address] Glucose [Mass/Vol] 92 mg/dL Normal 74-106 [facility] Comment on above: Order Comment: Y Performed By: #### L 500.4050, L503.6005, L300.8000, L100.0100, L501.5425 #### [facility] [address] [place], [address] Potassium [Moles/Vol] 4.1 mmol/L Normal 3.5-5.1 [facility] Comment on above: Order Comment: Y Performed By: #### L 500.4050, L503.6005, L300.8000, L100.0100, L501.5425 #### [facility] [address] [place], [address] Sodium [Moles/Vol] 138 mmol/L Normal 136-145 [facility] Comment on above: Order Comment: Y Performed By: #### L 500.4050, L503.6005, L300.8000, L100.0100, L501.5425 #### [facility] [address] [place], [address] Urea nitrogen [Mass/Vol] 22 mg/dL High 7-18 [facility] Comment on above: Order Comment: Y Performed By: #### L 500.4050, L503.6005, L300.8000, L100.0100, L501.5425 #### [facility] [address] [place], [address] Basophil percentageOrdered B y: Jigna Brantley on 07-23-2024 Basophils/100 WBC (Bld) 0.5 % 0-1 [facility] Blood urea nitrogen (BUN)/cr eatinine ratioOrdered By: Jigna Brantley on 07-23-2024 Urea nitrogen/Creatinine [Mass ratio] 16.1 mg/mg 10-20 [facility] CBC W/Diff, Automatedon 07-01 Absolute Lymph 3.24 X10 3/uL Normal 0.83-4.51 [facility] Comment on above: Order Comment: Y Performed By: #### L 500.4050, L503.6005, L300.8000, L100.0100, L501.5425 #### [facility] [address] [place], [address] Absolute Neut 5.5 X10 3/uL Normal 2.0-7.7 [facility] Comment on above: Order Comment: Y Performed By: #### L 500.4050, L503.6005, L300.8000, L100.0100, L501.5425 #### [facility] [address] [place], [address] Basophils/100 WBC (Bld) 0.5 % Normal 0-1 [facility] Comment on above: Order Comment: Y Performed By: #### L 500.4050, L503.6005, L300.8000, L100.0100, L501.5425 #### [facility] [address] [place], [address] Eosinophils/100 WBC (Bld) 0.6 % Normal 0-5 [facility] Comment on above: Order Comment: Y Performed By: #### L 500.4050, L503.6005, L300.8000, L100.0100, L501.5425 #### [facility] [address] [place], [address] Erythrocyte distribution width (RBC) [Ratio] 14.1 % Normal 11.6-14.6 [facility] Comment on above: Order Comment: Y Performed By: #### L 500.4050, L503.6005, L300.8000, L100.0100, L501.5425 #### [facility] [address] [place], [address] Hematocrit (Bld) [Volume fraction] 43.3 % Normal 40-54 [facility] Comment on above: Order Comment: Y Performed By: #### L 500.4050, L503.6005, L300.8000, L100.0100, L501.5425 #### [facility] [address] [place], [address] Hemoglobin (Bld) [Mass/Vol] 13.9 g/dL Normal 13.0-16.5 [facility] Comment on above: Order Comment: Y Performed By: #### L 500.4050, L503.6005, L300.8000, L100.0100, L501.5425 #### [facility] [address] [place], [address] IG% 0.600 Normal 0.0-0.9 [facility] Comment on above: Order Comment: Y Result Comment: IG% - Immature Granulocytes (promyelocytes, myelocytes and metamyelocytes) > 1% indicates that a LEFT SHIFT is Present. Performed By: #### L 500.4050, L503.6005, L300.8000, L100.0100, L501.5425 #### [facility] [address] [place], [address] Lymphocytes/100 WBC (Bld) 33.6 % Normal 19-41 [facility] Comment on above: Order Comment: Y Performed By: #### L 500.4050, L503.6005, L300.8000, L100.0100, L501.5425 #### [facility] [address] [place], [address] MCH (RBC) [Entitic mass] 30.3 pg Normal 27.0-32.0 [facility] Comment on above: Order Comment: Y Performed By: #### L 500.4050, L503.6005, L300.8000, L100.0100, L501.5425 #### [facility] [address] [place], [address] MCHC (RBC) [Mass/Vol] 32.1 g/dL Normal 32-36 [facility] Comment on above: Order Comment: Y Performed By: #### L 500.4050, L503.6005, L300.8000, L100.0100, L501.5425 #### [facility] [address] [place], [address] MCV (RBC) [Entitic vol] 94.3 fL High 80-94 [facility] Comment on above: Order Comment: Y Performed By: #### L 500.4050, L503.6005, L300.8000, L100.0100, L501.5425 #### [facility] [address] [place], [address] Monocytes/100 WBC (Bld) 7.2 % Normal 0-10 [facility] Comment on above: Order Comment: Y Performed By: #### L 500.4050, L503.6005, L300.8000, L100.0100, L501.5425 #### [facility] [address] [place], [address] Neutrophils/100 WBC (Bld) 57.5 % Normal 47-70 [facility] Comment on above: Order Comment: Y Performed By: #### L 500.4050, L503.6005, L300.8000, L100.0100, L501.5425 #### [facility] [address] [place], [address] Nucleated RBC (Bld) [#/Vol] 0 10*3/uL Normal 0-5 [facility] Comment on above: Order Comment: Y Performed By: #### L 500.4050, L503.6005, L300.8000, L100.0100, L501.5425 #### [facility] [address] [place], [address] Platelet mean volume (Bld) [Entitic vol] 11.2 fL Normal 6.2-12.0 [facility] Comment on above: Order Comment: Y Performed By: #### L 500.4050, L503.6005, L300.8000, L100.0100, L501.5425 #### [facility] [address] [place], [address] Platelets (Bld) [#/Vol] 320 10*3/uL Normal 150-450 [facility] Comment on above: Order Comment: Y Performed By: #### L 500.4050, L503.6005, L300.8000, L100.0100, L501.5425 #### [facility] [address] [place], [address] RBC (Bld) [#/Vol] 4.59 10*6/uL Low 4.6-6.2 [facility] Comment on above: Order Comment: Y Performed By: #### L 500.4050, L503.6005, L300.8000, L100.0100, L501.5425 #### [facility] [address] [place], [address] RDW SD 48.2 fl High 35.1-43.9 [facility] Comment on above: Order Comment: Y Performed By: #### L 500.4050, L503.6005, L300.8000, L100.0100, L501.5425 #### [facility] [address] [place], [place], [address] (487) WBC (Bld) [#/Vol] 9.6 10*3/uL Normal 4.4-11.0 [facility] Comment on above: Order Comment: Y Performed By: #### L 500.4050, L503.6005, L300.8000, L100.0100, L501.5425 #### [facility] [address] [place], [place], [id number] Carbon dioxide measurementOr dered By: Jigna Brantley on 07-23-2024 CO2 [Moles/Vol] 31.0 mmol/L 21.0-32.0 [facility] Chloride measurementOrdered By: Jigna Brantley on 07-23-2024 Chloride [Moles/Vol] 102 mmol/L 98-107 [facility] Eosinophil percentageOrdered By: Jigna Brantley on 07-23-2024 Eosinophils/100 WBC (Bld) 0.6 % 0-5 [facility] Erythrocyte distribution wid th (RBC) [Ratio]Ordered By: Jigna Brantley on 07-23-2024 Erythrocyte distribution width (RBC) [Entitic vol] 48.2 fL High 35.1-43.9 [facility] Erythrocyte distribution wid th ratioOrdered By: Jigna Brantley on 07-23-2024 Erythrocyte distribution width (RBC) [Ratio] 14.1 % 11.6-14.6 [facility] Erythrocyte distribution wid th standard deviationOrdered By: Jigna Brantley on 07-23-2024 Erythrocyte distribution width (RBC) [Ratio] 48.2 fl High 35.1-43.9 [facility] Estimated glomerular filtrat ion rate (GFR) AmericanOrdered By: Jigna Brantley on 07-23-2024 Estimated GFR (MDRD) Amer 67 mL/min >60 [facility] Comment on above: GFR Calc Glomerular filtration rate ( GFR) estimationOrdered By: Jigna Brantley on 07-23-2024 Estimated GFR (MDRD) Non-Af Amer 55 mL/min Low >60 [facility] Comment on above: Non- GFR Calc GFR/1.73 sq M.predicted among non-blacks MDRD (S/P/Bld) [Vol rate/Area] 55 mL/min/{1.73_m2} Low >60 [facility] Comment on above: Non- GFR Calc Glucose measurementOrdered B y: Jigna Brantley on 07-23-2024 Glucose [Mass/Vol] 92 mg/dL 74-106 [facility] Hematocrit Auto (Bld) [Volum e fraction]Ordered By: Jigna Brantley on 07-23-2024 Hematocrit (Bld) [Volume fraction] 43.3 % 40-54 [facility] Hemoglobin measurementOrdere d By: Jigna Brantley on 07-23-2024 Hemoglobin (Bld) [Mass/Vol] 13.9 g/dL 13.0-16.5 [facility] Immature granulocytes/100 WB C Auto (Bld)Ordered By: Jigna Brantley on 07-23-2024 Immature granulocytes/100 WBC (Bld) 0.600 % 0.0-0.9 [facility] Comment on above: IG% - Immature Granu locytes (promyelocytes, myelocytes and metamyelocytes) > 1% indicates that a LEFT SHIFT is Present. Lymphocytes Auto (Unsp spec) [#/Vol]Ordered By: Jigna Brantley on 07-23-2024 Lymphocytes (Bld) [#/Vol] 3.24 10*3/uL 0.83-4.51 [facility] Lymphocytes/100 WBC Auto (Un sp spec)Ordered By: Jigna Brantley on 07-23-2024 Lymphocytes/100 WBC (Bld) 33.6 % 19-41 [facility] MCV (mean corpuscular volume ) determinationOrdered By: Jigna Brantley on 07-23-2024 MCV (RBC) [Entitic vol] 94.3 fL High 80-94 [facility] Magnesiumon 07-23-2024 Magnesium [Mass/Vol] 2.5 mg/dL Normal 1.6-2.6 [facility] Comment on above: Order Comment: Y Performed By: #### L 500.4050, L503.6005, L300.8000, L100.0100, L501.5424 #### [facility] [address] [place], [address] Magnesium measurementOrdered By: Jigna Brantley on 07-23-2024 Magnesium [Mass/Vol] 2.5 mg/dL 1.6-2.6 [facility] Mean corpuscular hemoglobin (MCH) determinationOrdered By: Jigna Brantley on 07-23-2024 MCH (RBC) [Entitic mass] 30.3 pg 27.0-32.0 [facility] Mean corpuscular hemoglobin concentration (MCHC) determinationOrdered By: Jigna Brantley on 07-23-2024 MCHC (RBC) [Mass/Vol] 32.1 g/dL 32-36 [facility] Mean platelet volume determi nationOrdered By: Jigna Brantley on 07-23-2024 Platelet mean volume (Bld) [Entitic vol] 11.2 fL 6.2-12.0 [facility] Monocyte percentageOrdered B y: Jigna Brantley on 07-23-2024 Monocytes/100 WBC (Bld) 7.2 % 0-10 [facility] Neutrophil percentageOrdered By: Jigna Brantley on 07-23-2024 Neutrophils/100 WBC (Bld) 57.5 % 47-70 [facility] Nucleated red blood cell per centageOrdered By: Jigna Brantley on 07-23-2024 Nucleated RBC/100 WBC (Bld) [Ratio] 0 % 0-5 [facility] Platelet countOrdered By: Fabricio Brantley on 07-23-2024 Platelets (Bld) [#/Vol] 320 10*3/uL 150-450 [facility] Potassium measurementOrdered By: Jigna Brantley on 07-23-2024 Potassium [Moles/Vol] 4.1 mmol/L 3.5-5.1 [facility] RBC Auto (Bld) [#/Vol]Ordere d By: Jigna Brantley on 07-23-2024 RBC (Bld) [#/Vol] 4.59 10*6/uL Low 4.6-6.2 [facility] Serum anion gap measurementO rdered By: Jigna Brantley on 07-23-2024 Anion gap [Moles/Vol] 5 mmol/L 5-15 [facility] Serum or plasma calcium rosalina urement (mass/volume)Ordered By: Jigna Brantley on 07-23-2024 Calcium [Mass/Vol] 8.6 mg/dL 8.5-10.1 [facility] Serum or plasma creatinine m easurement (mass/volume)Ordered By: Jigna Brantley on 07-23-2024 Creatinine [Mass/Vol] 1.37 mg/dL High 0.70-1.30 [facility] Comment on above: The validity of the calculated GFR & GFRAA in patients over 70 years has not been determined. Clinical correlation is essential. Serum or plasma urea nitroge n measurement (mass/volume)Ordered By: Jigna Brantley on 07-23-2024 Urea nitrogen [Mass/Vol] 22 mg/dL High 7-18 [facility] Sodium levelOrdered By: Enoch Brantley on 07-23-2024 Sodium [Moles/Vol] 138 mmol/L 136-145 [facility] White blood cell (WBC) count Ordered By: Jigna Brantley on 07-23-2024 WBC (Bld) [#/Vol] 9.6 10*3/uL 4.4-11.0 [facility] Absolute lymphocyte countOrd ered By: Jigna Brantley on 07-16-2024 Lymphocytes Auto (Unsp spec) [#/Vol] 1.83 10*3/uL 0.83-4.51 [facility] Absolute neutrophil countOrd ered By: Jigna Brantley on 07-16-2024 Neutrophils (Bld) [#/Vol] 7.9 10*3/uL High 2.0-7.7 [facility] Automated lymphocyte count a s percentage of total leukocytesOrdered By: Jigna Brantley on 07-16-2024 Lymphocytes/100 WBC Auto (Unsp spec) 17.2 % Low 19-41 [facility] Basic Metabolic Profile (BMP )on 07-16-2024 BUN/CRE 18.8 RATIO Normal 10-20 [facility] Comment on above: Order Comment: 206 Performed By: #### L 500.4050, L503.6005, L300.8000, L100.0100, L501.5425 #### [facility] [address] [place], [address] CA,Total 9.3 mg/dL Normal 8.5-10.1 [facility] Comment on above: Order Comment: 206 Performed By: #### L 500.4050, L503.6005, L300.8000, L100.0100, L501.5425 #### [facility] [address] [place], [address] Chloride [Moles/Vol] 103 mmol/L Normal 98-107 [facility] Comment on above: Order Comment: 206 Performed By: #### L 500.4050, L503.6005, L300.8000, L100.0100, L501.5425 #### [facility] [address] [place], [address] CO2 [Moles/Vol] 27.0 mmol/L Normal 21.0-32.0 [facility] Comment on above: Order Comment: 206 Performed By: #### L 500.4050, L503.6005, L300.8000, L100.0100, L501.5425 #### [facility] [address] [place], [address] Creatinine [Mass/Vol] 1.17 mg/dL Normal 0.70-1.30 [facility] Comment on above: Order Comment: 206 Result Comment: The validity of the calculated GFR GFRAA in patients over 70 years has not been determined. Clinical correlation is essential. Performed By: #### L 500.4050, L503.6005, L300.8000, L100.0100, L501.5425 #### [facility] [address] [place], [address] EST GFR - AA 80 mL/min Normal >60 [facility] Comment on above: Order Comment: 206 Result Comment: Afri can [place] GFR Calc Performed By: #### L 500.4050, L503.6005, L300.8000, L100.0100, L501.5425 #### [facility] [address] [place], [address] GAP 9 Normal 5-15 [facility] Comment on above: Order Comment: 206 Performed By: #### L 500.4050, L503.6005, L300.8000, L100.0100, L501.5425 #### [facility] [address] [place], [address] GFR/1.73 sq M.predicted among non-blacks MDRD (S/P/Bld) [Vol rate/Area] 66 mL/min/{1.73_m2} Normal >60 [facility] Comment on above: Order Comment: 206 Result Comment: Non- GFR Calc Performed By: #### L 500.4050, L503.6005, L300.8000, L100.0100, L501.5425 #### [facility] [address] [place], [address] Glucose [Mass/Vol] 94 mg/dL Normal 74-106 [facility] Comment on above: Order Comment: 206 Performed By: #### L 500.4050, L503.6005, L300.8000, L100.0100, L501.5425 #### [facility] [address] [place], [address] Potassium [Moles/Vol] 3.6 mmol/L Normal 3.5-5.1 [facility] Comment on above: Order Comment: 206 Performed By: #### L 500.4050, L503.6005, L300.8000, L100.0100, L501.5425 #### [facility] [address] [place], [address] Sodium [Moles/Vol] 139 mmol/L Normal 136-145 [facility] Comment on above: Order Comment: 206 Performed By: #### L 500.4050, L503.6005, L300.8000, L100.0100, L501.5425 #### [facility] [address] [place], [address] Urea nitrogen [Mass/Vol] 22 mg/dL High -18 [facility] Comment on above: Order Comment: 206 Performed By: #### L 500.4050, L503.6005, L300.8000, L100.0100, L501.5425 #### [facility] [address] [place], [address] Basophil percentageOrdered B y: Jigna Brantley on 07-16-2024 Basophils/100 WBC (Bld) 0.1 % 0-1 [facility] Blood urea nitrogen (BUN)/cr eatinine ratioOrdered By: Jigna Brantley on 07-16-2024 Urea nitrogen/Creatinine [Mass ratio] 18.8 mg/mg 10-20 [facility] CBC W/Diff, Automatedon 06-30 Absolute Lymph 1.83 X10 3/uL Normal 0.83-4.51 [facility] Comment on above: Order Comment: 206 Performed By: #### L 500.4050, L503.6005, L300.8000, L100.0100, L501.5425 #### [facility] [address] [place], [address] Absolute Neut 7.9 X10 3/uL High 2.0-7.7 [facility] Comment on above: Order Comment: 206 Performed By: #### L 500.4050, L503.6005, L300.8000, L100.0100, L501.5425 #### [facility] [address] [place], [address] Basophils/100 WBC (Bld) 0.1 % Normal 0-1 [facility] Comment on above: Order Comment: 206 Performed By: #### L 500.4050, L503.6005, L300.8000, L100.0100, L501.5425 #### [facility] [address] [place], [address] Eosinophils/100 WBC (Bld) 0.1 % Normal 0-5 [facility] Comment on above: Order Comment: 206 Performed By: #### L 500.4050, L503.6005, L300.8000, L100.0100, L501.5425 #### [facility] [address] [place], [address] Erythrocyte distribution width (RBC) [Ratio] 13.2 % Normal 11.6-14.6 [facility] Comment on above: Order Comment: 206 Performed By: #### L 500.4050, L503.6005, L300.8000, L100.0100, L501.5425 #### [facility] [address] [place], [address] Hematocrit (Bld) [Volume fraction] 41.3 % Normal 40-54 [facility] Comment on above: Order Comment: 206 Performed By: #### L 500.4050, L503.6005, L300.8000, L100.0100, L501.5425 #### [facility] [address] [place], [address] Hemoglobin (Bld) [Mass/Vol] 13.3 g/dL Normal 13.0-16.5 [facility] Comment on above: Order Comment: 206 Performed By: #### L 500.4050, L503.6005, L300.8000, L100.0100, L501.5425 #### [facility] [address] [place], [address] IG% 0.700 Normal 0.0-0.9 [facility] Comment on above: Order Comment: 206 Result Comment: IG% - Immature Granulocytes (promyelocytes, myelocytes and metamyelocytes) > 1% indicates that a LEFT SHIFT is Present. Performed By: #### L 500.4050, L503.6005, L300.8000, L100.0100, L501.5425 #### [facility] [address] [place], [address] Lymphocytes/100 WBC (Bld) 17.2 % Low 19-41 [facility] Comment on above: Order Comment: 206 Performed By: #### L 500.4050, L503.6005, L300.8000, L100.0100, L501.5425 #### [facility] [address] [place], [address] MCH (RBC) [Entitic mass] 29.7 pg Normal 27.0-32.0 [facility] Comment on above: Order Comment: 206 Performed By: #### L 500.4050, L503.6005, L300.8000, L100.0100, L501.5425 #### [facility] [address] [place], [address] MCHC (RBC) [Mass/Vol] 32.2 g/dL Normal 32-36 [facility] Comment on above: Order Comment: 206 Performed By: #### L 500.4050, L503.6005, L300.8000, L100.0100, L501.5425 #### [facility] [address] [place], [address] MCV (RBC) [Entitic vol] 92.2 fL Normal 80-94 [facility] Comment on above: Order Comment: 206 Performed By: #### L 500.4050, L503.6005, L300.8000, L100.0100, L501.5425 #### [facility] [address] [place], [address] Monocytes/100 WBC (Bld) 7.6 % Normal 0-10 [facility] Comment on above: Order Comment: 206 Performed By: #### L 500.4050, L503.6005, L300.8000, L100.0100, L501.5425 #### [facility] [address] [place], [address] Neutrophils/100 WBC (Bld) 74.3 % High 47-70 [facility] Comment on above: Order Comment: 206 Performed By: #### L 500.4050, L503.6005, L300.8000, L100.0100, L501.5425 #### [facility] [address] [place], [address] Nucleated RBC (Bld) [#/Vol] 0 10*3/uL Normal 0-5 [facility] Comment on above: Order Comment: 206 Performed By: #### L 500.4050, L503.6005, L300.8000, L100.0100, L501.5425 #### [facility] [address] [place], [address] Platelet mean volume (Bld) [Entitic vol] 10.4 fL Normal 6.2-12.0 [facility] Comment on above: Order Comment: 206 Performed By: #### L 500.4050, L503.6005, L300.8000, L100.0100, L501.5425 #### [facility] [address] [place], [address] Platelets (Bld) [#/Vol] 462 10*3/uL High 150-450 [facility] Comment on above: Order Comment: 206 Performed By: #### L 500.4050, L503.6005, L300.8000, L100.0100, L501.5425 #### [facility] [address] [place], [address] RBC (Bld) [#/Vol] 4.48 10*6/uL Low 4.6-6.2 [facility] Comment on above: Order Comment: 206 Performed By: #### L 500.4050, L503.6005, L300.8000, L100.0100, L501.5425 #### [facility] [address] [place], [address] RDW SD 44.1 fl High 35.1-43.9 [facility] Comment on above: Order Comment: 206 Performed By: #### L 500.4050, L503.6005, L300.8000, L100.0100, L501.5425 #### [facility] [address] [place], [address] WBC (Bld) [#/Vol] 10.6 10*3/uL Normal 4.4-11.0 [facility] Comment on above: Order Comment: 206 Performed By: #### L 500.4050, L503.6005, L300.8000, L100.0100, L501.5425 #### [facility] [address] [place], [address] [facility] Telephone ([facility]) REINA SULLIVAN ([id number]) 1955 M Date Time Provider Department 07/16/24 ARIC ZAPIEN [facility] During your visit today, we recorded the following information about you: Felicita Bolden MA 07/16/2024 3:30 PM Signed Patient canceled his appointment on 07/12/24 with Isa Stevenson. He was discharged from [facility] on 07/11/24 DX: AFIB RVR, debility. Called and spoke with ex- Flor, his emergency contact, and she said he is in [facility] for rehab with the hopes for permanent placement afterwards. Felicita Bolden MA July 16, 2024 3:30 PM Allergies As of Date: 07/16/2024 Noted Allergy Reaction DYE 03/02/2016 14 - Other: See Comments Comments: used for heart cath Date Reviewed: 06/22/2024 Reviewed by: Felicita Bolden MA - Fully Assessed Reason for Visit: Patient Update [1234] Prescriptions as of 08/07/2024 - lisinopril 2.5 mg tablet Take 1 tablet by mouth once daily. For kidneys - methocarbamol (ROBAXIN) 500 mg tablet Take 1 tablet by mouth three times a day. - divalproex DR (DEPAKOTE) 500 mg EC tablet Take 1 tablet by mouth two times a day. - metFORMIN ER (GLUCOPHAGE XR) 500 mg 24 hr tablet Take 1 tablet by mouth daily with breakfast. - metoprolol succinate ER (TOPROL XL) 50 mg 24 hr tablet Take 1 tablet by mouth once daily. - furosemide (LASIX) 40 mg tablet Take 1 tablet by mouth once daily. - Lancets lancets Test blood sugar(s) 1 times daily. Dx: Type 2 DM - Uncontrolled E11.65 Insulin: No - blood sugar diagnostic (BLOOD GLUCOSE TEST) test strip Test blood sugar(s) 1 times daily. Dx: Type 2 DM - Uncontrolled E11.65 Insulin: No - apixaban (ELIQUIS) 5 mg tab tab(s) Take 1 tablet by mouth twice daily. Problem List As Of Date 07/16/2024 Noted Resolved 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 (HCC) [I48.21] HTN (hypertension) [I10] Hyperlipidemia [E78.5] Seizures (HCC) [R56.9] Hyperglycemia [R73.9] 03/23/2017 03/26/2021 Primary pulmonary HTN (HCC) [I27.0] 07/26/2017 Mitral regurgitation [I34.0] 07/26/2017 Non-rheumatic tricuspid valve insufficiency [I3*07/26/2017 Enlarged thoracic aorta (HCC) [I77.89] 07/26/2017 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 status epilepticus*06/27/2020 03/25/2021 Type 2 diabetes mellitus without complication, *03/26/2021 Encounter for hepatitis C screening test for lo*03/09/2022 09/30/2022 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/09/2022 Adjustment disorder with mixed emotional featur*09/30/2022 Allergy [T78.40XA] 09/30/2022 Anxiety state [F41.1] 09/30/2022 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 Encounter for issue of repeat prescription [Z76*09/30/2022 09/30/2022 Fracture of skull (HCC) [S02.91XA] 09/30/2022 09/30/2022 Headache [R51.9] 09/30/2022 09/30/2022 High serum creatinine [R79.89] 09/30/2022 09/30/2022 Intracranial injury of other and unspecified na*09/30/2022 Left atrial enlargement [I51.7] 09/30/2022 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 *09/30/2022 Migraine headache [G43.909] 09/30/2022 Need for Streptococcus pneumoniae vaccination [*09/30/2022 Neoplasm of uncertain behavior of skin [D48.5] 09/30/2022 Noncompliance with treatment [Z91.199] 09/30/2022 Other polyp of sinus [J33.8] 09/30/2022 Pulmonary hypertension (HCC) [I27.20] 09/30/2022 Syncope and collapse [R55] 09/30/2022 09/30/2022 Undiagnosed cardiac murmurs [R01.1] 09/30/2022 09/30/2022 History of skull fracture [Z87.81] 09/30/2022 Encounter Status:Closed by FELICITA BOLDEN on 08/07/24 Normal [facility] Carbon dioxide measurementOr dered By: Jigna Brantley on 07-16-2024 CO2 [Moles/Vol] 27.0 mmol/L 21.0-32.0 [facility] Chloride measurementOrdered By: Jigna Brantley on 07-16-2024 Chloride [Moles/Vol] 103 mmol/L 98-107 [facility] Eosinophil percentageOrdered By: Jigna Brantley on 07-16-2024 Eosinophils/100 WBC (Bld) 0.1 % 0-5 [facility] Erythrocyte distribution wid th (RBC) [Ratio]Ordered By: Jigna Brantley on 07-16-2024 Erythrocyte distribution width (RBC) [Entitic vol] 44.1 fL High 35.1-43.9 [facility] Erythrocyte distribution wid th ratioOrdered By: Jigna Brantley on 07-16-2024 Erythrocyte distribution width (RBC) [Ratio] 13.2 % 11.6-14.6 [facility] Erythrocyte distribution wid th standard deviationOrdered By: Jigna Brantley on 07-16-2024 Erythrocyte distribution width (RBC) [Ratio] 44.1 fl High 35.1-43.9 [facility] Estimated glomerular filtrat ion rate (GFR) AmericanOrdered By: Jigna Brantley on 07-16-2024 Estimated GFR (MDRD) Amer 80 mL/min >60 [facility] Comment on above: GFR Calc Glomerular filtration rate ( GFR) estimationOrdered By: Jigna Brantley on 07-16-2024 Estimated GFR (MDRD) Non-Af Amer 66 mL/min >60 [facility] Comment on above: Non- GFR Calc GFR/1.73 sq M.predicted among non-blacks MDRD (S/P/Bld) [Vol rate/Area] 66 mL/min/{1.73_m2} >60 [facility] Comment on above: Non- GFR Calc Glucose measurementOrdered B y: Jigna Brantley on 07-16-2024 Glucose [Mass/Vol] 94 mg/dL 74-106 [facility] Hematocrit Auto (Bld) [Volum e fraction]Ordered By: Jigna Brantley on 07-16-2024 Hematocrit (Bld) [Volume fraction] 41.3 % 40-54 [facility] Hemoglobin measurementOrdere d By: Jigna Brantley on 07-16-2024 Hemoglobin (Bld) [Mass/Vol] 13.3 g/dL 13.0-16.5 [facility] Immature granulocytes/100 WB C Auto (Bld)Ordered By: Jigna Brantley on 07-16-2024 Immature granulocytes/100 WBC (Bld) 0.700 % 0.0-0.9 [facility] Comment on above: IG% - Immature Granu locytes (promyelocytes, myelocytes and metamyelocytes) > 1% indicates that a LEFT SHIFT is Present. Lymphocytes Auto (Unsp spec) [#/Vol]Ordered By: Jigna Brantley on 07-16-2024 Lymphocytes (Bld) [#/Vol] 1.83 10*3/uL 0.83-4.51 [facility] Lymphocytes/100 WBC Auto (Un sp spec)Ordered By: Jigna Brantley on 07-16-2024 Lymphocytes/100 WBC (Bld) 17.2 % Low 19-41 [facility] MCV (mean corpuscular volume ) determinationOrdered By: Jigna Brantley on 07-16-2024 MCV (RBC) [Entitic vol] 92.2 fL 80-94 [facility] Magnesiumon 07-16-2024 Magnesium [Mass/Vol] 2.7 mg/dL High 1.6-2.6 [facility] Comment on above: Order Comment: 206 Performed By: #### L 500.4050, L503.6005, L300.8000, L100.0100, L501.5425 #### [facility] [address] [place] [address], [address] Magnesium measurementOrdered By: Jigna Brantley on 07-16-2024 Magnesium [Mass/Vol] 2.7 mg/dL High 1.6-2.6 [facility] Mean corpuscular hemoglobin (MCH) determinationOrdered By: Jigna Brantley on 07-16-2024 MCH (RBC) [Entitic mass] 29.7 pg 27.0-32.0 [facility] Mean corpuscular hemoglobin concentration (MCHC) determinationOrdered By: Jigna Brantley on 07-16-2024 MCHC (RBC) [Mass/Vol] 32.2 g/dL 32-36 [facility] Mean platelet volume determi nationOrdered By: Jigna Brantley on 07-16-2024 Platelet mean volume (Bld) [Entitic vol] 10.4 fL 6.2-12.0 [facility] Monocyte percentageOrdered B y: Jigna Brantley on 07-16-2024 Monocytes/100 WBC (Bld) 7.6 % 0-10 [facility] Neutrophil percentageOrdered By: Jigna Brantley on 07-16-2024 Neutrophils/100 WBC (Bld) 74.3 % High 47-70 [facility] Nucleated red blood cell per centageOrdered By: Jigna Brantley on 07-16-2024 Nucleated RBC/100 WBC (Bld) [Ratio] 0 % 0-5 [facility] Platelet countOrdered By: Fabricio Brantely on 07-16-2024 Platelets (Bld) [#/Vol] 462 10*3/uL High 150-450 [facility] Potassium measurementOrdered By: Jigna Brantley on 07-16-2024 Potassium [Moles/Vol] 3.6 mmol/L 3.5-5.1 [facility] RBC Auto (Bld) [#/Vol]Ordere d By: Jigna Brantley on 07-16-2024 RBC (Bld) [#/Vol] 4.48 10*6/uL Low 4.6-6.2 [facility] Serum anion gap measurementO rdered By: Jigna Brantley on 07-16-2024 Anion gap [Moles/Vol] 9 mmol/L 5-15 [facility] Serum or plasma calcium rosalina urement (mass/volume)Ordered By: Jigna Brantley on 07-16-2024 Calcium [Mass/Vol] 9.3 mg/dL 8.5-10.1 [facility] Serum or plasma creatinine m easurement (mass/volume)Ordered By: Jigna Brantley on 07-16-2024 Creatinine [Mass/Vol] 1.17 mg/dL 0.70-1.30 [facility] Comment on above: The validity of the calculated GFR & GFRAA in patients over 70 years has not been determined. Clinical correlation is essential. Serum or plasma urea nitroge n measurement (mass/volume)Ordered By: Jigna Brantley on 07-16-2024 Urea nitrogen [Mass/Vol] 22 mg/dL High 7-18 [facility] Sodium levelOrdered By: Enoch Brantley on 07-16-2024 Sodium [Moles/Vol] 139 mmol/L 136-145 [facility] Valproate levelOrdered By: Keo Brantley on 07-16-2024 Valproic Acid (Depakene) Level 71 ug/mL 50-100 [facility] Valproic Acid (Depakene) Lev cecil 07-16-2024 VALPROIC ACID 71 ug/mL Normal 50-100 [facility] Comment on above: Order Comment: 206 Performed By: #### L 500.4050, L503.6005, L300.8000, L100.0100, L501.5425 #### [facility] [address] [place], [place], [id number] White blood cell (WBC) count Ordered By: Jigna Brantley on 07-16-2024 WBC (Bld) [#/Vol] 10.6 10*3/uL 4.4-11.0 [facility] 07-ID-Pjbwoii DOrdered By: Keo Brantley on 07-12-2024 Vitamin D 25-Hydroxy 6.3 ng/mL [facility] Comment on above: Vitamin D 25(OH) Sta tus Range Deficiency <20 ng/mL (50nmol/L) Insufficiency 20 - 30 ng/mL (50 - 75 nmol/L) Sufficiency 30 - 100 ng/mL (75 - 250 nmol/L) Toxicity >100 ng/mL (>250 nmol/L) Absolute lymphocyte countOrd ered By: Jigna Brantley on 07-12-2024 Lymphocytes Auto (Unsp spec) [#/Vol] 1.79 10*3/uL 0.83-4.51 [facility] Absolute neutrophil countOrd ered By: Jigna Brantley on 07-12-2024 Neutrophils (Bld) [#/Vol] 7.6 10*3/uL 2.0-7.7 [facility] Automated lymphocyte count a s percentage of total leukocytesOrdered By: Jigna Brantley on 07-12-2024 Lymphocytes/100 WBC Auto (Unsp spec) 17.4 % Low 19-41 [facility] Basic Metabolic Profile (BMP )on 07-12-2024 BUN/CRE 21.0 RATIO High 10-20 [facility] Comment on above: Order Comment: 209 Performed By: #### L 501.5200, L500.2500 #### [facility] [address] [place], [address] CA,Total 9.6 mg/dL Normal 8.5-10.1 [facility] Comment on above: Order Comment: 209 Performed By: #### L 501.5200, L500.2500 #### [facility] [address] [place], [address] Chloride [Moles/Vol] 104 mmol/L Normal 98-107 [facility] Comment on above: Order Comment: 209 Performed By: #### L 501.5200, L500.2500 #### [facility] [address] [place], [address] CO2 [Moles/Vol] 32.0 mmol/L Normal 21.0-32.0 [facility] Comment on above: Order Comment: 209 Performed By: #### L 501.5200, L500.2500 #### [facility] [address] [place], [address] Creatinine [Mass/Vol] 1.19 mg/dL Normal 0.70-1.30 [facility] Comment on above: Order Comment: 209 Result Comment: The validity of the calculated GFR GFRAA in patients over 70 years has not been determined. Clinical correlation is essential. Performed By: #### L 501.5200, L500.2500 #### [facility] [address] [place], [address] EST GFR - AA 78 mL/min Normal >60 [facility] Comment on above: Order Comment: 209 Result Comment: Afri can [place] GFR Calc Performed By: #### L 501.5200, L500.2500 #### [facility] [address] [place], [address] GAP 5 Normal 5-15 [facility] Comment on above: Order Comment: 209 Performed By: #### L 501.5200, L500.2500 #### [facility] [address] [place], [address] GFR/1.73 sq M.predicted among non-blacks MDRD (S/P/Bld) [Vol rate/Area] 65 mL/min/{1.73_m2} Normal >60 [facility] Comment on above: Order Comment: 209 Result Comment: Non- GFR Calc Performed By: #### L 501.5200, L500.2500 #### [facility] [address] [place], [address] Glucose [Mass/Vol] 104 mg/dL Normal 74-106 [facility] Comment on above: Order Comment: 209 Result Comment: Fast ing Glucose result from 100 to 125 mg/dL suggests IMPAIRED HOMEOSTASIS per A.D.A. criteria. Performed By: #### L 501.5200, L500.2500 #### [facility] [address] [place], [address] Potassium [Moles/Vol] 3.8 mmol/L Normal 3.5-5.1 [facility] Comment on above: Order Comment: 209 Performed By: #### L 501.5200, L500.2500 #### [facility] [address] [place], [address] Sodium [Moles/Vol] 141 mmol/L Normal 136-145 [facility] Comment on above: Order Comment: 209 Performed By: #### L 501.5200, L500.2500 #### [facility] [address] [place], [address] Urea nitrogen [Mass/Vol] 25 mg/dL High 7-18 [facility] Comment on above: Order Comment: 209 Performed By: #### L 501.5200, L500.2500 #### [facility] [address] [place], [address] Basophil percentageOrdered B y: Jigna Magedjadon on 07-12-2024 Basophils/100 WBC (Bld) 0.2 % 0-1 [facility] Blood urea nitrogen (BUN)/cr eatinine ratioOrdered By: Jigna Brantley on 07-12-2024 Urea nitrogen/Creatinine [Mass ratio] 21.0 mg/mg High 10-20 [facility] CBC W/Diff, Automatedon 06-30 Absolute Lymph 1.79 X10 3/uL Normal 0.83-4.51 [facility] Comment on above: Order Comment: 1 Y Performed By: #### L 500.4050, L503.6005, L300.8000, L100.0100, L501.5425 #### [facility] [address] [place], [address] Absolute Neut 7.6 X10 3/uL Normal 2.0-7.7 [facility] Comment on above: Order Comment: 1 Y Performed By: #### L 500.4050, L503.6005, L300.8000, L100.0100, L501.5425 #### [facility] [address] [place], [address] Basophils/100 WBC (Bld) 0.2 % Normal 0-1 [facility] Comment on above: Order Comment: 1 Y Performed By: #### L 500.4050, L503.6005, L300.8000, L100.0100, L501.5425 #### [facility] [address] [place], [address] Eosinophils/100 WBC (Bld) 0.0 % Normal 0-5 [facility] Comment on above: Order Comment: 1 Y Performed By: #### L 500.4050, L503.6005, L300.8000, L100.0100, L501.5425 #### [facility] [address] [place], [address] Erythrocyte distribution width (RBC) [Ratio] 12.8 % Normal 11.6-14.6 [facility] Comment on above: Order Comment: 1 Y Performed By: #### L 500.4050, L503.6005, L300.8000, L100.0100, L501.5425 #### [facility] [address] [place], [address] Hematocrit (Bld) [Volume fraction] 41.3 % Normal 40-54 [facility] Comment on above: Order Comment: 1 Y Performed By: #### L 500.4050, L503.6005, L300.8000, L100.0100, L501.5425 #### [facility] [address] [place], [address] Hemoglobin (Bld) [Mass/Vol] 13.2 g/dL Normal 13.0-16.5 [facility] Comment on above: Order Comment: 1 Y Performed By: #### L 500.4050, L503.6005, L300.8000, L100.0100, L501.5425 #### [facility] [address] [place], [address] IG% 0.600 Normal 0.0-0.9 [facility] Comment on above: Order Comment: 1 Y Result Comment: IG% - Immature Granulocytes (promyelocytes, myelocytes and metamyelocytes) > 1% indicates that a LEFT SHIFT is Present. Performed By: #### L 500.4050, L503.6005, L300.8000, L100.0100, L501.5425 #### [facility] [address] [place], [address] Lymphocytes/100 WBC (Bld) 17.4 % Low 19-41 [facility] Comment on above: Order Comment: 1 Y Performed By: #### L 500.4050, L503.6005, L300.8000, L100.0100, L501.5425 #### [facility] [address] [place], [address] MCH (RBC) [Entitic mass] 29.9 pg Normal 27.0-32.0 [facility] Comment on above: Order Comment: 1 Y Performed By: #### L 500.4050, L503.6005, L300.8000, L100.0100, L501.5425 #### [facility] [address] [place], [address] MCHC (RBC) [Mass/Vol] 32.0 g/dL Normal 32-36 [facility] Comment on above: Order Comment: 1 Y Performed By: #### L 500.4050, L503.6005, L300.8000, L100.0100, L501.5425 #### [facility] [address] [place], [address] MCV (RBC) [Entitic vol] 93.4 fL Normal 80-94 [facility] Comment on above: Order Comment: 1 Y Performed By: #### L 500.4050, L503.6005, L300.8000, L100.0100, L501.5425 #### [facility] [address] [place], [address] Monocytes/100 WBC (Bld) 8.1 % Normal 0-10 [facility] Comment on above: Order Comment: 1 Y Performed By: #### L 500.4050, L503.6005, L300.8000, L100.0100, L501.5425 #### [facility] [address] [place], [address] Neutrophils/100 WBC (Bld) 73.7 % High 47-70 [facility] Comment on above: Order Comment: 1 Y Performed By: #### L 500.4050, L503.6005, L300.8000, L100.0100, L501.5425 #### [facility] [address] [place], [address] Nucleated RBC (Bld) [#/Vol] 0 10*3/uL Normal 0-5 [facility] Comment on above: Order Comment: 1 Y Performed By: #### L 500.4050, L503.6005, L300.8000, L100.0100, L501.5425 #### [facility] [address] [place], [address] Platelet mean volume (Bld) [Entitic vol] 10.7 fL Normal 6.2-12.0 [facility] Comment on above: Order Comment: 1 Y Performed By: #### L 500.4050, L503.6005, L300.8000, L100.0100, L501.5425 #### [facility] [address] [place], [address] Platelets (Bld) [#/Vol] 502 10*3/uL High 150-450 [facility] Comment on above: Order Comment: 1 Y Performed By: #### L 500.4050, L503.6005, L300.8000, L100.0100, L501.5425 #### [facility] [address] [place], [address] RBC (Bld) [#/Vol] 4.42 10*6/uL Low 4.6-6.2 [facility] Comment on above: Order Comment: 1 Y Performed By: #### L 500.4050, L503.6005, L300.8000, L100.0100, L501.5425 #### [facility] [address] [place], [address] RDW SD 44.1 fl High 35.1-43.9 [facility] Comment on above: Order Comment: 1 Y Performed By: #### L 500.4050, L503.6005, L300.8000, L100.0100, L501.5425 #### [facility] [address] [place], [address] WBC (Bld) [#/Vol] 10.3 10*3/uL Normal 4.4-11.0 [facility] Comment on above: Order Comment: 1 Y Performed By: #### L 500.4050, L503.6005, L300.8000, L100.0100, L501.5425 #### [facility] [address] [place], [address] Carbon dioxide measurementOr dered By: Jigna Brantley on 07-12-2024 CO2 [Moles/Vol] 32.0 mmol/L 21.0-32.0 [facility] Chloride measurementOrdered By: Jigna Brantley on 07-12-2024 Chloride [Moles/Vol] 104 mmol/L 98-107 [facility] Eosinophil percentageOrdered By: Jigna Brantley on 07-12-2024 Eosinophils/100 WBC (Bld) 0.0 % 0-5 [facility] Erythrocyte distribution wid th (RBC) [Ratio]Ordered By: Jigna Brantley on 07-12-2024 Erythrocyte distribution width (RBC) [Entitic vol] 44.1 fL High 35.1-43.9 [facility] Erythrocyte distribution wid th ratioOrdered By: Jigna Brantley on 07-12-2024 Erythrocyte distribution width (RBC) [Ratio] 12.8 % 11.6-14.6 [facility] Erythrocyte distribution wid th standard deviationOrdered By: Jigna Brantley on 07-12-2024 Erythrocyte distribution width (RBC) [Ratio] 44.1 fl High 35.1-43.9 [facility] Estimated glomerular filtrat ion rate (GFR) AmericanOrdered By: Jigna Brantley on 07-12-2024 Estimated GFR (MDRD) Amer 78 mL/min >60 [facility] Comment on above: GFR Calc Glomerular filtration rate ( GFR) estimationOrdered By: Jigna Brantley on 07-12-2024 Estimated GFR (MDRD) Non-Af Amer 65 mL/min >60 [facility] Comment on above: Non- GFR Calc GFR/1.73 sq M.predicted among non-blacks MDRD (S/P/Bld) [Vol rate/Area] 65 mL/min/{1.73_m2} >60 [facility] Comment on above: Non- GFR Calc Glucose measurementOrdered B y: Jigna Brantley on 07-12-2024 Glucose [Mass/Vol] 104 mg/dL 74-106 [facility] Comment on above: Fasting Glucose resu lt from 100 to 125 mg/dL suggests IMPAIRED HOMEOSTASIS per A.D.A. criteria. Hematocrit Auto (Bld) [Volum e fraction]Ordered By: Jigna Brantley on 07-12-2024 Hematocrit (Bld) [Volume fraction] 41.3 % 40-54 [facility] Hemoglobin A1con 07-12-2024 HbA1c (Bld) [Mass fraction] 6.2 % High 3.8-5.6 [facility] Comment on above: Order Comment: 209 Result Comment: Norm al < 5.7 % Prediabetic 5.7 - 6.4 % Diabetic >or= 6.5 % Please note range changes. Performed By: #### L 501.5200, L500.2500 #### [facility] [place], [address] Hemoglobin A1c percentageOrd ered By: Jigna Brantley on 07-12-2024 HbA1c (Bld) [Mass fraction] 6.2 % High 3.8-5.6 [facility] Comment on above: Normal < 5.7 % Predi abetic 5.7 - 6.4 % Diabetic >or= 6.5 % Please note range changes. Hemoglobin measurementOrdere d By: Jigna Brantley on 07-12-2024 Hemoglobin (Bld) [Mass/Vol] 13.2 g/dL 13.0-16.5 [facility] Immature granulocytes/100 WB C Auto (Bld)Ordered By: Jigna Brantley on 07-12-2024 Immature granulocytes/100 WBC (Bld) 0.600 % 0.0-0.9 [facility] Comment on above: IG% - Immature Granu locytes (promyelocytes, myelocytes and metamyelocytes) > 1% indicates that a LEFT SHIFT is Present. Lymphocytes Auto (Unsp spec) [#/Vol]Ordered By: Jigna Brantley on 07-12-2024 Lymphocytes (Bld) [#/Vol] 1.79 10*3/uL 0.83-4.51 [facility] Lymphocytes/100 WBC Auto (Un sp spec)Ordered By: Jigna Brantley on 07-12-2024 Lymphocytes/100 WBC (Bld) 17.4 % Low 19-41 [facility] MCV (mean corpuscular volume ) determinationOrdered By: Jigna Brantley on 07-12-2024 MCV (RBC) [Entitic vol] 93.4 fL 80-94 [facility] Magnesiumon 07-12-2024 Magnesium [Mass/Vol] 2.7 mg/dL High 1.6-2.6 [facility] Comment on above: Order Comment: 209 Performed By: #### L 501.5200, L500.2500 #### [facility] [address] [place] [address], [address] Magnesium measurementOrdered By: Jigna Brantley on 07-12-2024 Magnesium [Mass/Vol] 2.7 mg/dL High 1.6-2.6 [facility] Mean corpuscular hemoglobin (MCH) determinationOrdered By: Jigna Brantley on 07-12-2024 MCH (RBC) [Entitic mass] 29.9 pg 27.0-32.0 [facility] Mean corpuscular hemoglobin concentration (MCHC) determinationOrdered By: Jigna Brantley on 07-12-2024 MCHC (RBC) [Mass/Vol] 32.0 g/dL 32-36 [facility] Mean platelet volume determi nationOrdered By: Jigna Brantley on 07-12-2024 Platelet mean volume (Bld) [Entitic vol] 10.7 fL 6.2-12.0 [facility] Monocyte percentageOrdered B y: Jigna Brantley on 07-12-2024 Monocytes/100 WBC (Bld) 8.1 % 0-10 [facility] Neutrophil percentageOrdered By: Jigna Brantley on 07-12-2024 Neutrophils/100 WBC (Bld) 73.7 % High 47-70 [facility] Nucleated red blood cell per centageOrdered By: Jigna Brantley on 07-12-2024 Nucleated RBC/100 WBC (Bld) [Ratio] 0 % 0-5 [facility] Platelet countOrdered By: Fabricio Brantley on 07-12-2024 Platelets (Bld) [#/Vol] 502 10*3/uL High 150-450 [facility] Potassium measurementOrdered By: Jigna Brantley on 07-12-2024 Potassium [Moles/Vol] 3.8 mmol/L 3.5-5.1 [facility] RBC Auto (Bld) [#/Vol]Ordere d By: Jigna Brantley on 07-12-2024 RBC (Bld) [#/Vol] 4.42 10*6/uL Low 4.6-6.2 [facility] Serum anion gap measurementO rdered By: Jigna Brantley on 07-12-2024 Anion gap [Moles/Vol] 5 mmol/L 5-15 [facility] Serum or plasma calcium rosalina urement (mass/volume)Ordered By: Jigna Brantley on 07-12-2024 Calcium [Mass/Vol] 9.6 mg/dL 8.5-10.1 [facility] Serum or plasma creatinine m easurement (mass/volume)Ordered By: Jigna Brantley on 07-12-2024 Creatinine [Mass/Vol] 1.19 mg/dL 0.70-1.30 [facility] Comment on above: The validity of the calculated GFR & GFRAA in patients over 70 years has not been determined. Clinical correlation is essential. Serum or plasma thyroid stim ulating hormone (TSH) measurement (units/volume)Ordered By: Jigna Brantley on 07-12-2024 TSH Qn 2.960 uIU/mL 0.358-3.740 [facility] Serum or plasma urea nitroge n measurement (mass/volume)Ordered By: Jigna Brantley on 07-12-2024 Urea nitrogen [Mass/Vol] 25 mg/dL High 7-18 [facility] Sodium levelOrdered By: Enoch Brantley on 07-12-2024 Sodium [Moles/Vol] 141 mmol/L 136-145 [facility] TSH QnOrdered By: Jigna jefferson on 07-12-2024 Thyroid Stimulating Hormone (TSH) 2.960 uIU/mL 0.358-3.740 [facility] Thyroid Stim Hormone (TSH)on 07-12-2024 TSH 2.960 uIU/mL Normal 0.358-3.740 [facility] Comment on above: Order Comment: 209 Performed By: #### L 501.5200, L500.2500 #### [facility] [address] [place], [address] Vitamin B12on 07-12-2024 Cobalamin (Vitamin B12) [Mass/Vol] 273 pg/mL Normal -911 [facility] Comment on above: Order Comment: 1 Y Performed By: #### L 500.4050, L503.6005, L300.8000, L100.0100, L501.5425 #### [facility] [address] [place], [address] Vitamin B12 measurementOrder ed By: Jigna Brantley on 07-12-2024 Cobalamin (Vitamin B12) [Mass/Vol] 273 pg/mL -91 [facility] Vitamin D,25 Hydroxyon 07-12 Vitamin D 25-OH 6.3 ng/mL Normal [facility] Comment on above: Order Comment: 209 Result Comment: Divine min D 25(OH) Status Range Deficiency <20 ng/mL (50nmol/L) Insufficiency 20 - 30 ng/mL (50 - 75 nmol/L) Sufficiency 30 - 100 ng/mL (75 - 250 nmol/L) Toxicity >100 ng/mL (>250 nmol/L) Performed By: #### L 501.5200, L500.2500 #### [facility] [address] [place], [address] White blood cell (WBC) count Ordered By: Jigna Brantley on 07-12-2024 WBC (Bld) [#/Vol] 10.3 10*3/uL 4.4-11.0 [facility] Bedside Glucoseon 07-11-2024 FINGERSTICK GLU 138 mg/dL High [facility]106 [facility] Comment on above: Result Comment: KARUNA GEMENT OF PATIENT CARE PER NURSING PROTOCOL Performed By: #### L 500.4050, L503.6005, L300.8000, L100.0100, L501.5425 #### [facility] [address] [place], [address] FINGERSTICK GLU 185 mg/dL High -106 [facility] Comment on above: Result Comment: KARUNA GEMENT OF PATIENT CARE PER NURSING PROTOCOL Performed By: #### L 500.4050, L503.6005, L300.8000, L100.0100, L501.5425 #### [facility] [address] [place], [address] FINGERSTICK GLU 105 mg/dL Normal -[address] [place] [address] Comment on above: Result Comment: KARUNA GEMENT OF PATIENT CARE PER NURSING PROTOCOL Performed By: #### L 500.4050, L503.6005, L300.8000, L100.0100, L501.5425 #### [facility] [address] [place], [address] [facility] deOrdered By: Yann Ascencio on 07-11-2024 Bedside Glucose (Misc Panel) 138 mg/dL High [address] [place] [address] Comment on above: MANAGEMENT OF PATIEN T CARE PER NURSING PROTOCOL Glucose [Mass/Vol] 138 mg/dL High -106 [facility] Comment on above: MANAGEMENT OF PATIEN T CARE PER NURSING PROTOCOL Absolute lymphocyte countOrd ered By: Yann Ascencio on 07-10-2024 Lymphocytes Auto (Unsp spec) [#/Vol] 0.60 10*3/uL Low 0.83-4.51 [facility] Absolute neutrophil countOrd ered By: Yannstephanie Ascencio on 07-10-2024 Neutrophils (Bld) [#/Vol] 7.5 10*3/uL 2.0-7.7 [facility] Automated lymphocyte count a s percentage of total leukocytesOrdered By: Yann Ascencio on 07-10-2024 Lymphocytes/100 WBC Auto (Unsp spec) 6.9 % Low 19-41 [facility] Basic Metabolic Profile (BMP )on 07-10-2024 BUN/CRE 17.5 RATIO Normal 10-20 [facility] Comment on above: Performed By: #### L 500.4050, L503.6005, L300.8000, L100.0100, L501.5425 #### [facility] [address] [place], [address] CA,Total 9.9 mg/dL Normal 8.5-10.1 [facility] Comment on above: Performed By: #### L 500.4050, L503.6005, L300.8000, L100.0100, L501.5425 #### [facility] [address] [place], [address] Chloride [Moles/Vol] 105 mmol/L Normal 98-107 [facility] Comment on above: Performed By: #### L 500.4050, L503.6005, L300.8000, L100.0100, L501.5425 #### [facility] [address] [place], [address] CO2 [Moles/Vol] 25.0 mmol/L Normal 21.0-32.0 [facility] Comment on above: Performed By: #### L 500.4050, L503.6005, L300.8000, L100.0100, L501.5425 #### [facility] [address] [place], [address] Creatinine [Mass/Vol] 1.03 mg/dL Normal 0.70-1.30 [facility] Comment on above: Result Comment: The validity of the calculated GFR GFRAA in patients over 70 years has not been determined. Clinical correlation is essential. Performed By: #### L 500.4050, L503.6005, L300.8000, L100.0100, L501.5425 #### [facility] [address] [place], [address] ECRCL 84.26 ml/min Normal [facility] Comment on above: Performed By: #### L 500.4050, L503.6005, L300.8000, L100.0100, L501.5425 #### [facility] [address] [place], [address] EST GFR - AA 93 mL/min Normal >60 [facility] Comment on above: Result Comment: Afri can [place] GFR Calc Performed By: #### L 500.4050, L503.6005, L300.8000, L100.0100, L501.5425 #### [facility] [address] [place], [address] GAP 8 Normal 5-15 [facility] Comment on above: Performed By: #### L 500.4050, L503.6005, L300.8000, L100.0100, L501.5425 #### [facility] [address] [place], [address] GFR/1.73 sq M.predicted among non-blacks MDRD (S/P/Bld) [Vol rate/Area] 76 mL/min/{1.73_m2} Normal >60 [facility] Comment on above: Result Comment: Non- GFR Calc Performed By: #### L 500.4050, L503.6005, L300.8000, L100.0100, L501.5425 #### [facility] [address] [place], [address] Glucose [Mass/Vol] 142 mg/dL High 74-106 [facility] Comment on above: Result Comment: Fast ing Glucose result greater than or equal to 126 mg/dL suggests DIABETES MELLITUS per A.D.A. criteria. Performed By: #### L 500.4050, L503.6005, L300.8000, L100.0100, L501.5425 #### [facility] [address] [place], [address] Potassium [Moles/Vol] 3.5 mmol/L Normal 3.5-5.1 [facility] Comment on above: Performed By: #### L 500.4050, L503.6005, L300.8000, L100.0100, L501.5425 #### [facility] [address] [place], [address] Sodium [Moles/Vol] 138 mmol/L Normal 136-145 [facility] Comment on above: Performed By: #### L 500.4050, L503.6005, L300.8000, L100.0100, L501.5425 #### [facility] [address] [place], [address] Urea nitrogen [Mass/Vol] 18 mg/dL Normal 7-18 [facility] Comment on above: Performed By: #### L 500.4050, L503.6005, L300.8000, L100.0100, L501.5425 #### [facility] [address] [place], [address] Basophil percentageOrdered B y: Yann Ascencio on 07-10-2024 Basophils/100 WBC (Bld) 0.1 % 0-1 [facility] Bedside Glucoseon 07-10-2024 FINGERSTICK GLU 148 mg/dL High 74-106 [facility] Comment on above: Result Comment: KARUNA FELIX OF PATIENT CARE PER NURSING PROTOCOL Performed By: #### L 500.4050, L503.6005, L300.8000, L100.0100, L501.5425 #### [facility] [address] [place], [address] FINGERSTICK GLU 111 mg/dL High 74-106 [facility] Comment on above: Result Comment: KARUNA GEMENT OF PATIENT CARE PER NURSING PROTOCOL Performed By: #### L 501.5200, L500.2500 #### [facility] [address] [place], [address] FINGERSTICK GLU 147 mg/dL High 74-106 [facility] Comment on above: Result Comment: KARUNA GEMENT OF PATIENT CARE PER NURSING PROTOCOL Performed By: #### L 500.4050, L503.6005, L300.8000, L100.0100, L501.5425 #### [facility] [address] [place], [address] FINGERSTICK GLU 136 mg/dL High 74-106 [facility] Comment on above: Result Comment: KARUNA GEMENT OF PATIENT CARE PER NURSING PROTOCOL Performed By: #### L 501.080 #### [facility] [address] [place], [address] Blood urea nitrogen (BUN)/cr eatinine ratioOrdered By: Yann Ascencio on 07-10-2024 Urea nitrogen/Creatinine [Mass ratio] 17.5 mg/mg 10-20 [facility] CBC W/Diff, Automatedon 06-30 PATH REV Reviewed Normal [facility] Comment on above: Result Comment: Neut rophilic leukocytosis. Clinical correlation necessary. Sreekanth Zhou M.D. 07/10/24 AMENDED REPORT 07/10/24 1444 PATH REV previously reported as: September cherelle Performed By: #### L 500.4050, L503.6005, L300.8000, L100.0100, L501.5425 #### [facility] [address] [place], [address] Absolute Lymph 0.60 X10 3/uL Low 0.83-4.51 [facility] Comment on above: Performed By: #### L 500.4050, L503.6005, L300.8000, L100.0100, L501.5425 #### [facility] [address] [place], [address] Absolute Neut 7.5 X10 3/uL Normal 2.0-7.7 [facility] Comment on above: Performed By: #### L 500.4050, L503.6005, L300.8000, L100.0100, L501.5425 #### [facility] [address] [place], [address] Basophils/100 WBC (Bld) 0.1 % Normal 0-1 [facility] Comment on above: Performed By: #### L 500.4050, L503.6005, L300.8000, L100.0100, L501.5425 #### [facility] [address] [place], [address] Eosinophils/100 WBC (Bld) 0.0 % Normal 0-5 [facility] Comment on above: Performed By: #### L 500.4050, L503.6005, L300.8000, L100.0100, L501.5425 #### [facility] [address] [place], [address] Erythrocyte distribution width (RBC) [Ratio] 12.9 % Normal 11.6-14.6 [facility] Comment on above: Performed By: #### L 500.4050, L503.6005, L300.8000, L100.0100, L501.5425 #### [facility] [address] [place], [address] Hematocrit (Bld) [Volume fraction] 38.3 % Low 40-54 [facility] Comment on above: Performed By: #### L 500.4050, L503.6005, L300.8000, L100.0100, L501.5425 #### [facility] [address] [place], [address] Hemoglobin (Bld) [Mass/Vol] 12.2 g/dL Low 13.0-16.5 [facility] Comment on above: Performed By: #### L 500.4050, L503.6005, L300.8000, L100.0100, L501.5425 #### [facility] [address] [place], [address] IG% 0.500 Normal 0.0-0.9 [facility] Comment on above: Result Comment: IG% - Immature Granulocytes (promyelocytes, myelocytes and metamyelocytes) > 1% indicates that a LEFT SHIFT is Present. Performed By: #### L 500.4050, L503.6005, L300.8000, L100.0100, L501.5425 #### [facility] [address] [place], [address] Lymphocytes/100 WBC (Bld) 6.9 % Low 19-41 [facility] Comment on above: Performed By: #### L 500.4050, L503.6005, L300.8000, L100.0100, L501.5425 #### [facility] [address] [place], [address] MCH (RBC) [Entitic mass] 30.0 pg Normal 27.0-32.0 [facility] Comment on above: Performed By: #### L 500.4050, L503.6005, L300.8000, L100.0100, L501.5425 #### [facility] [address] [place], [address] MCHC (RBC) [Mass/Vol] 31.9 g/dL Low 32-36 [facility] Comment on above: Performed By: #### L 500.4050, L503.6005, L300.8000, L100.0100, L501.5425 #### [facility] [address] [place], [address] MCV (RBC) [Entitic vol] 94.3 fL High 80-94 [facility] Comment on above: Performed By: #### L 500.4050, L503.6005, L300.8000, L100.0100, L501.5425 #### [facility] [address] [place], [address] Monocytes/100 WBC (Bld) 6.6 % Normal 0-10 [facility] Comment on above: Performed By: #### L 500.4050, L503.6005, L300.8000, L100.0100, L501.5425 #### [facility] [address] [place], [address] Neutrophils/100 WBC (Bld) 85.9 % High 47-70 [facility] Comment on above: Performed By: #### L 500.4050, L503.6005, L300.8000, L100.0100, L501.5425 #### [facility] [address] [place], [address] Nucleated RBC (Bld) [#/Vol] 0 10*3/uL Normal 0-5 [facility] Comment on above: Performed By: #### L 500.4050, L503.6005, L300.8000, L100.0100, L501.5425 #### [facility] [address] [place], [address] Platelet mean volume (Bld) [Entitic vol] 10.9 fL Normal 6.2-12.0 [facility] Comment on above: Performed By: #### L 500.4050, L503.6005, L300.8000, L100.0100, L501.5425 #### [facility] [address] [place], [address] Platelets (Bld) [#/Vol] 300 10*3/uL Normal 150-450 [facility] Comment on above: Performed By: #### L 500.4050, L503.6005, L300.8000, L100.0100, L501.5425 #### [facility] [address] [place], [address] RBC (Bld) [#/Vol] 4.06 10*6/uL Low 4.6-6.2 [facility] Comment on above: Performed By: #### L 500.4050, L503.6005, L300.8000, L100.0100, L501.5425 #### [facility] [address] [place], [address] RDW SD 44.8 fl High 35.1-43.9 [facility] Comment on above: Performed By: #### L 500.4050, L503.6005, L300.8000, L100.0100, L501.5425 #### [facility] [address] [place], [address] WBC (Bld) [#/Vol] 8.7 10*3/uL Normal 4.4-11.0 [facility] Comment on above: Performed By: #### L 500.4050, L503.6005, L300.8000, L100.0100, L501.5425 #### [facility] [address] [place], [address] Carbon dioxide measurementOr dered By: Yann Ascencio on 07-10-2024 CO2 [Moles/Vol] 25.0 mmol/L 21.0-32.0 [facility] Chloride measurementOrdered By: Yann Ascencio on 07-10-2024 Chloride [Moles/Vol] 105 mmol/L 98-107 [facility] Eosinophil percentageOrdered By: Yann Ascencio on 07-10-2024 Eosinophils/100 WBC (Bld) 0.0 % 0-5 [facility] Erythrocyte distribution wid th (RBC) [Ratio]Ordered By: Yann Ascnecio on 07-10-2024 Erythrocyte distribution width (RBC) [Entitic vol] 44.8 fL High 35.1-43.9 [facility] Erythrocyte distribution wid th ratioOrdered By: Yann Ascencio on 07-10-2024 Erythrocyte distribution width (RBC) [Ratio] 12.9 % 11.6-14.6 [facility] Erythrocyte distribution wid th standard deviationOrdered By: Yann Ascencio on 07-10-2024 Erythrocyte distribution width (RBC) [Ratio] 44.8 fl High 35.1-43.9 [facility] Estimated glomerular filtrat ion rate (GFR) AmericanOrdered By: Yann Ascencio on 07-10-2024 Estimated GFR (MDRD) Amer 93 mL/min >60 [facility] Comment on above: GFR Calc Estimation of creatinine karlee aranceOrdered By: Yann Ascencio on 07-10-2024 Estimated Creatinine Clearance Calc 84.26 ml/min [facility] Glomerular filtration rate ( GFR) estimationOrdered By: Yann Ascencio on 07-10-2024 Estimated GFR (MDRD) Non-Af Amer 76 mL/min >60 [facility] Comment on above: Non- GFR Calc GFR/1.73 sq M.predicted among non-blacks MDRD (S/P/Bld) [Vol rate/Area] 76 mL/min/{1.73_m2} >60 [facility] Comment on above: Non- GFR Calc Glucose measurementOrdered B y: Yann Ascencio on 07-10-2024 Glucose [Mass/Vol] 142 mg/dL High 74-106 [facility] Comment on above: Fasting Glucose resu lt greater than or equal to 126 mg/dL suggests DIABETES MELLITUS per A.D.A. criteria. Hematocrit Auto (Bld) [Volum e fraction]Ordered By: Yann Ascencio on 07-10-2024 Hematocrit (Bld) [Volume fraction] 38.3 % Low 40-54 [facility] Hemoglobin A1con 07-10-2024 HbA1c (Bld) [Mass fraction] 6.0 % High 3.8-5.6 [facility] Comment on above: Result Comment: Norm al < 5.7 % Prediabetic 5.7 - 6.4 % Diabetic >or= 6.5 % Please note range changes. Performed By: #### L 500.4050, L503.6005, L300.8000, L100.0100, L501.5425 #### [facility] [address] [place], [address] Hemoglobin A1c percentageOrd ered By: Yann Ascencio on 07-10-2024 HbA1c (Bld) [Mass fraction] 6.0 % High 3.8-5.6 [facility] Comment on above: Normal < 5.7 % Predi abetic 5.7 - 6.4 % Diabetic >or= 6.5 % Please note range changes. Hemoglobin measurementOrdere d By: Yann Ascencio on 07-10-2024 Hemoglobin (Bld) [Mass/Vol] 12.2 g/dL Low 13.0-16.5 [facility] Immature granulocytes/100 WB C Auto (Bld)Ordered By: Yann Ascencio on 07-10-2024 Immature granulocytes/100 WBC (Bld) 0.500 % 0.0-0.9 [facility] Comment on above: IG% - Immature Granu locytes (promyelocytes, myelocytes and metamyelocytes) > 1% indicates that a LEFT SHIFT is Present. Lymphocytes Auto (Unsp spec) [#/Vol]Ordered By: Yann Ascencio on 07-10-2024 Lymphocytes (Bld) [#/Vol] 0.60 10*3/uL Low 0.83-4.51 [facility] Lymphocytes/100 WBC Auto (Un sp spec)Ordered By: Yann Ascencio on 07-10-2024 Lymphocytes/100 WBC (Bld) 6.9 % Low 19-41 [facility] MCV (mean corpuscular volume ) determinationOrdered By: Yann Ascencio on 07-10-2024 MCV (RBC) [Entitic vol] 94.3 fL High 80-94 [facility] Mean corpuscular hemoglobin (MCH) determinationOrdered By: Yann Ascencio on 07-10-2024 MCH (RBC) [Entitic mass] 30.0 pg 27.0-32.0 [facility] Mean corpuscular hemoglobin concentration (MCHC) determinationOrdered By: Yann Ascencio on 07-10-2024 MCHC (RBC) [Mass/Vol] 31.9 g/dL Low 32-36 [facility] Mean platelet volume determi nationOrdered By: Yann Ascencio on 07-10-2024 Platelet mean volume (Bld) [Entitic vol] 10.9 fL 6.2-12.0 [facility] Monocyte percentageOrdered B y: Yann Ascencio on 07-10-2024 Monocytes/100 WBC (Bld) 6.6 % 0-10 [facility] Neutrophil percentageOrdered By: Yann Ascencio on 07-10-2024 Neutrophils/100 WBC (Bld) 85.9 % High 47-70 [facility] Nucleated red blood cell per centageOrdered By: Yann Ascencio on 07-10-2024 Nucleated RBC/100 WBC (Bld) [Ratio] 0 % 0-5 [facility] Platelet countOrdered By: Damien Ascencio on 07-10-2024 Platelets (Bld) [#/Vol] 300 10*3/uL 150-450 [facility] Potassium measurementOrdered By: Yann Ascencio on 07-10-2024 Potassium [Moles/Vol] 3.5 mmol/L 3.5-5.1 [facility] RBC Auto (Bld) [#/Vol]Ordere d By: Yann Ascencio on 07-10-2024 RBC (Bld) [#/Vol] 4.06 10*6/uL Low 4.6-6.2 [facility] Serum anion gap measurementO rdered By: Yann Ascencio on 07-10-2024 Anion gap [Moles/Vol] 8 mmol/L 5-15 [facility] Serum or plasma calcium rosalina urement (mass/volume)Ordered By: Yann Ascencio on 07-10-2024 Calcium [Mass/Vol] 9.9 mg/dL 8.5-10.1 [facility] Serum or plasma creatinine m easurement (mass/volume)Ordered By: Yann Ascencio on 07-10-2024 Creatinine [Mass/Vol] 1.03 mg/dL 0.70-1.30 [facility] Comment on above: The validity of the calculated GFR & GFRAA in patients over 70 years has not been determined. Clinical correlation is essential. Serum or plasma urea nitroge n measurement (mass/volume)Ordered By: Yann Ascencio on 07-10-2024 Urea nitrogen [Mass/Vol] 18 mg/dL 7-18 [facility] Sodium levelOrdered By: Yann Ascencio on 07-10-2024 Sodium [Moles/Vol] 138 mmol/L 136-145 [facility] White blood cell (WBC) count Ordered By: Yann Ascencio on 07-10-2024 WBC (Bld) [#/Vol] 8.7 10*3/uL 4.4-11.0 [facility] 12 Lead EKGon 07-09-2024 12 Lead EKG [place] [facility] Cardiovascular Services [address] [place] [address] 12 Lead EKG 07/09/24 0825 MR#: [id number] Acct: [id number] Name: REINA SULLIVAN Rep #: [id number] : 1955 69 From: Олег Andrade MD Attending Dr: Dr. Yann Ascencio, DO Status: ADM IN Ordering Dr: Priscilla Reynaga MD Date: 07/09/24 Location: [facility] Sex: M C Admitted: 07/09/24 Test Reason : TACHY Blood Pressure : */* mmHG Vent. Rate : 163 BPM Atrial Rate : * BPM P-R Int : * ms QRS Dur : 82 ms QT Int : 264 ms P-R-T Axes : * 61 -32 degrees QTcB Int : 434 ms Critical Test Result: High HR Atrial fibrillation with rapid ventricular response ST depression, consider subendocardial injury Abnormal QRS-T angle, consider primary T wave abnormality Abnormal ECG Confirmed by Олег Andrade ([id number]), medical editor MARLENE CAMP ([id number]) on 07/10/2024 10:05:21 AM Referred By: MELY Confirmed By: Олег Andrade 07/10/24 1005 Date Олег Andrade MD CC: Dr. Priscilla Reynaga MD; Dr. Yann Ascencio DO; Dr. Aric Zapien MD Signed Normal [facility] Albumin to globulin ratioOrd ered By: Priscilla Reynaga on 07-09-2024 Albumin/Globulin [Mass ratio] 0.7 {ratio} Low 0.9-2.4 [facility] Ankle min 3 Viewson 07-09-19 25 Ankle min 3 Views [facility] Imaging Services [address] [place] [address] Ankle min 3 Views MR#: [id number] Acct: [id number] Name: REINA SULLIVAN Rep #: [id number] : 1955 M 69 From: Roscoe emmanuel MD PCP: Dr. Aric Zapien MD Status: REG ER Study: Ankle min 3 Views Date of Exam: 07/09/24 Exam# [id number] Ordering Dr: Priscilla Reynaga MD EXAM: ANKLE MIN 3 VIEWS CLINICAL HISTORY: Pain following injury. COMPARISON: None. TECHNIQUE: Three views were obtained. FINDINGS: Diffuse soft tissue swelling. No fracture is seen. Small plantar spur. RAD/Ankle min 3 Views IMPRESSION: Diffuse soft tissue swelling. Reading Location: [place] [address] CC: Dr. Priscilla Reynaga MD; Dr. Aric Zapien MD Contour Grinder: Signed Normal [facility] Bedside Glucoseon 07-09-2024 FINGERSTICK GLU 132 mg/dL High 74-106 [facility] Comment on above: Result Comment: KARUNA GEMENT OF PATIENT CARE PER NURSING PROTOCOL Performed By: #### L 501.080 #### [facility] Laboratory [address] [place], [address] FINGERSTICK GLU 152 mg/dL High 74-106 [facility] Comment on above: Result Comment: KARUNA GEMENT OF PATIENT CARE PER NURSING PROTOCOL Performed By: #### L 500.4050, L503.6005, L300.8000, L100.0100, L501.5425 #### [facility] Laboratory [address] [place], [address] FINGERSTICK GLU 109 mg/dL High 74-106 [facility] Comment on above: Result Comment: KARUNA FELIX OF PATIENT CARE PER NURSING PROTOCOL Performed By: #### L 500.4050, L503.6005, L300.8000, L100.0100, L501.5425 #### [facility] Laboratory [address] [place], [address] Bilirubin Test strip Ql (U)O rdered By: Priscilla Reynaga on 07-09-2024 Bilirubin Ql (U) 1 mg/dL High Negative [facility] Comment on above: COLOR OF URINE MAY A FFECT DIPSTICK RESULTS. Bilirubin, totalOrdered By: Priscilla Reynaga on 07-09-2024 Bilirubin [Mass/Vol] 0.80 mg/dL 0.20-1.00 [facility] Comment on above: For patients on eltr ombopag therapy, use of Dimension [place] TBIL is not recommended. Chest 1 View (Portable)on Chest 1 View (Portable) [facility] Imaging Services [address] [place], [place] [address] Chest 1 View (Portable) MR#: [id number] Acct: [id number] Name: REINA SULLIVAN Rep #: [id number] : 1955 M 69 From: Jeffy Belle PCP: Dr. Aric Zapien MD Status: [facility] ER Study: Chest 1 View (Portable) Date of Exam: 07/09/24 Exam# [id number] Ordering Dr: Priscilla Reynaga MD PROCEDURE: CHEST 1 VIEW (PORTABLE) REASON FOR EXAM: Shortness of breath. TECHNIQUE: Frontal view of the chest. COMPARISON: Chest x-ray 10/30/2020 RAD/Chest 1 View (Portable) IMPRESSION: The cardiomediastinal silhouette is stable, without evidence of cardiomegaly. At the medial right lung base, an area of airspace disease is concerning for the presence of pneumonitis, less likely atelectasis. No pleural effusion or pneumothorax is noted. Prior right rib fractures noted. No acute osseous process is seen. Reading Location: [id number] CC: Dr. Priscilla Reynaga MD; Dr. Aric Zapien MD Contour Grinder: Signed Normal [facility] Comprehensive Metabolic Prof ilon 07-09-2024 Albumin [Mass/Vol] 2.9 g/dL Low 3.2-5.0 [facility] Comment on above: Performed By: #### L 500.4050, L503.6005, L300.8000, L100.0100, L501.5425 #### [facility] Laboratory [address] [place], [address] Albumin/Globulin [Mass ratio] 0.7 {ratio} Low 0.9-2.4 [facility] Comment on above: Performed By: #### L 500.4050, L503.6005, L300.8000, L100.0100, L501.5425 #### [facility] Laboratory [address] [place], [address] ALK P 68 U/L Normal 45-117 [facility] Comment on above: Performed By: #### L 500.4050, L503.6005, L300.8000, L100.0100, L501.5425 #### [facility] Laboratory [address] [place], [address] ALT [Catalytic activity/Vol] 16 U/L Normal 16-61 [facility] Comment on above: Performed By: #### L 500.4050, L503.6005, L300.8000, L100.0100, L501.5425 #### [facility] Laboratory [address] [place], [address] AST [Catalytic activity/Vol] 11 U/L Low 15-37 [facility] Comment on above: Performed By: #### L 500.4050, L503.6005, L300.8000, L100.0100, L501.5425 #### [facility] Laboratory [address] [place], [address] Bilirubin [Mass/Vol] 0.80 mg/dL Normal 0.20-1.00 [facility] Comment on above: Result Comment: For patients on eltrombopag therapy, use of Dimension [place] TBIL is not recommended. Performed By: #### L 500.4050, L503.6005, L300.8000, L100.0100, L501.5425 #### [facility] Laboratory [address] [place], [address] BUN/CRE 14.5 RATIO Normal 10-20 [facility] Comment on above: Performed By: #### L 500.4050, L503.6005, L300.8000, L100.0100, L501.5425 #### [facility] Laboratory [address] [place], [address] CA,Total 9.3 mg/dL Normal 8.5-10.1 [facility] Comment on above: Performed By: #### L 500.4050, L503.6005, L300.8000, L100.0100, L501.5425 #### [facility] Laboratory [address] [place], [address] Chloride [Moles/Vol] 104 mmol/L Normal 98-107 [facility] Comment on above: Performed By: #### L 500.4050, L503.6005, L300.8000, L100.0100, L501.5425 #### [facility] Laboratory [address] [place], [address] CO2 [Moles/Vol] 27.0 mmol/L Normal 21.0-32.0 [facility] Comment on above: Performed By: #### L 500.4050, L503.6005, L300.8000, L100.0100, L501.5425 #### [facility] Laboratory [address] [place], [address] Creatinine [Mass/Vol] 1.38 mg/dL High 0.70-1.30 [facility] Comment on above: Result Comment: The validity of the calculated GFR GFRAA in patients over 70 years has not been determined. Clinical correlation is essential. Performed By: #### L 500.4050, L503.6005, L300.8000, L100.0100, L501.5425 #### [facility] Laboratory [address] [place], [address] ECRCL 66.83 ml/min Normal [facility] Comment on above: Performed By: #### L 500.4050, L503.6005, L300.8000, L100.0100, L501.5425 #### [facility] Laboratory [address] [place], [address] EST GFR - AA 66 mL/min Normal >60 [facility] Comment on above: Result Comment: Afri can [place] GFR Calc Performed By: #### L 500.4050, L503.6005, L300.8000, L100.0100, L501.5425 #### [facility] Laboratory [address] [place], [address] GAP 10 Normal 5-15 [facility] Comment on above: Performed By: #### L 500.4050, L503.6005, L300.8000, L100.0100, L501.5425 #### [facility] Laboratory [address] [place], [address] GFR/1.73 sq M.predicted among non-blacks MDRD (S/P/Bld) [Vol rate/Area] 55 mL/min/{1.73_m2} Low >60 [facility] Comment on above: Result Comment: Non- GFR Calc Performed By: #### L 500.4050, L503.6005, L300.8000, L100.0100, L501.5425 #### [facility] Laboratory [address] [place], [address] Globulin (S) [Mass/Vol] 4.4 g/dL High 2.2-4.2 [facility] Comment on above: Performed By: #### L 500.4050, L503.6005, L300.8000, L100.0100, L501.5425 #### [facility] Laboratory [address] [place], [address] Glucose [Mass/Vol] 117 mg/dL High 74-106 [facility] Comment on above: Result Comment: Fast ing Glucose result from 100 to 125 mg/dL suggests IMPAIRED HOMEOSTASIS per A.D.A. criteria. Performed By: #### L 500.4050, L503.6005, L300.8000, L100.0100, L501.5425 #### [facility] Laboratory [address] [place], [address] Potassium [Moles/Vol] 3.1 mmol/L Low 3.5-5.1 [facility] Comment on above: Performed By: #### L 500.4050, L503.6005, L300.8000, L100.0100, L501.5425 #### [facility] Laboratory [address] [place], [address] Sodium [Moles/Vol] 141 mmol/L Normal 136-145 [facility] Comment on above: Performed By: #### L 500.4050, L503.6005, L300.8000, L100.0100, L501.5425 #### [facility] Laboratory [address] [place], [address] T PROT 7.3 g/dL Normal 6.4-8.2 [facility] Comment on above: Performed By: #### L 500.4050, L503.6005, L300.8000, L100.0100, L501.5425 #### [facility] Laboratory [address] [place], [address] Urea nitrogen [Mass/Vol] 20 mg/dL High 7-18 [facility] Comment on above: Performed By: #### L 500.4050, L503.6005, L300.8000, L100.0100, L501.5425 #### [facility] Laboratory [address] [place], [address] D-Dimer Quantitative (DVT/PE )on 07-09-2024 D-DIMER QUANT 1.11 FEU/ug/m Invalid Interpretation Code 0.27-0.49 [facility] Comment on above: Result Comment: D-Di phillip ELEVATED (>0.49): Additional studies and clinical assessments are indicated to conclude diagnosis of: Deep Vein Thrombosis (DVT) or Pulmonary Embolism (PE) CRITICAL VALUE CALLED TO Reddy HCRISTIE 07/09/24 0925 Vesta Gutierrez. RESULTS READ BACK BY . Performed By: #### L 500.4050, L503.6005, L300.8000, L100.0100, L501.5425 #### [facility] Laboratory [address] [place], [address] D-dimer measurement for deep venous thrombosisOrdered By: Priscilla Reynaga on 07-09-2024 D-Dimer Quantitative (PE/DVT) 1.11 FEU/ug/m High 0.27-0.49 [facility] Comment on above: D-Dimer ELEVATED (>0 .49): Additional studies and clinicalassessments are indicated to conclude diagnosis of:Deep Vein Thrombosis (DVT) or Pulmonary Embolism (PE)CRITICAL VALUE CALLED TO Reddy CHRISTIE07/09/24 0925 Vesta Gutierrez.RESULTS READ BACK BY . Echo Completeon 07-09-2024 Echo [facility] Cardiovascular Services [address] [place] [address] Echo Complete 07/10/24826 MR#: [id number] Acct: [id number] Name: REINA SULLIVAN Rep #: [id number] : 1955 69 From: Estuardo Irby MD Attending Dr: Dr. Yann Ascencio DO Status: ADM IN Ordering Dr: Yann Ascencio DO Date: 07/09/24 Location: [facility] Sex: M C Admitted: 07/09/24 Reason For Study Reason For Study: Afib, Aflutter Procedure This was a 2D Doppler, Color Flow transthoracic echocardiogram. Exam performed portable in patient room. Left Ventricle Normal LV size. The estimated ejection fraction is 55 %. No evidence for diastolic dysfunction. No regional wall motion abnormalities noted. Right Ventricle Normal RV size. Normal systolic function. Atria The left atrium is severely enlarged. Normal right atrium. No doppler evidence for ASD. Mitral Valve There is no mitral valve stenosis. Mild (1+) mitral valve insufficiency. Tricuspid Valve There is no tricuspid stenosis. Mild (1+) tricuspid valve insufficiency. Pulmonary artery systolic pressure is 30 mmHg. Aortic Valve Trisinus/trileaflet aortic valve. There is no aortic stenosis. No aortic valve insufficiency. Pulmonic Valve There is no pulmonic valvular stenosis. No pulmonic valve insufficiency. Great Vessels Normal aortic root. Pericardium/Pleural No pericardial effusion. MMode/2D Measurements Calculations LVIDd: 5.3 cm IVSd: 1.3 cm Ao root diam: 3.7 cm LVIDs: 3.3 cm LVPWd: 1.3 cm RVDd: 3.5 cm FS: 38.0 % LAV(MOD-bp): 208.4 ml LVAd ap4: 22.1 cm2 SV(MOD-sp4): 39.4 ml LAV(MOD-bp) Indexed: 94.9 ml/m2 LVLd ap4: 6.0 cm SI(MOD-sp4): 17.9 ml/m2 LAV(MOD-sp2): 243.4 ml EDV(MOD-sp4): 67.8 ml LAV(MOD-sp4): 160.9 ml EDV(sp4-el): 68.9 ml LVAs ap4: 13.7 cm2 LVLs ap4: 5.6 cm ESV(MOD-sp4): 28.4 ml ESV(sp4-el): 28.5 ml EF(MOD-sp4): 58.1 % EF(sp4-el): 58.7 % SV(sp4-el): 40.4 ml LA A4 area: 44.8 cm2 LA dimension(2D): 4.7 cm RA A4 area: 20.8 cm2 TAPSE: 1.6 cm Doppler Measurements Calculations MV E max miguel: 151.0 cm/sec Lat Peak E' Miguel: 11.6 cm/sec Med Peak E' Miguel: 10.3 cm/sec E/E' lat: 13.0 E/E' med: 14.7 Ao V2 max: 127.9 cm/sec LV V1 max: 98.4 cm/sec PA V2 max: 72.0 cm/sec Ao max P.6 mmHg LV V1 max P.9 mmHg Ao V2 mean: 94.7 cm/sec Ao mean P.9 mmHg Ao V2 VTI: 20.7 cm TR max miguel: 259.4 cm/sec TR max P.9 mmHg ECHO/Echo Complete Interpretation Summary The estimated ejection fraction is 55 %. No evidence for diastolic dysfunction. The left atrium is severely enlarged. Mild (1+) mitral valve insufficiency. Ordering Physician: Yann Ascencio Referring Physician: Aric Zapien Performed By: Ann-Marie Cao RDCS, RVT 07/10/24 145 Date Estuardo Irby MD CC: Dr. Yann Ascencio DO; Dr. Aric Zapien MD Date Dictated: 07/10/24 0827 Date Transcribed: 07/10/241452 Contour Grinder: Signed Normal [facility] Emergency Department Summary on 07-09-2024 Emergency Department Summary [facility] Medical Records Department [address] [place] [address] Emergency Department Summary 07/09/24 MR#: [id number] Acct: [id number] Name: REINA SULLIVAN Rep #: [id number] : 1955 69 From: Priscilla Reynaga MD PCP: Dr. Aric Zapien MD Status:REG ER Location: ED [facility] History of Present Illness Chief Complaint: Other, Pain/Inj Informant: patient Onset/Context/Timing Onset: Days (3) Narrative Narrative: 69-year-old male presenting with bilateral foot and ankle pain. States this started 3 days ago. Denies trauma. States he is unable to walk secondary to pain. Denies fever or recent illness. He is on Eliquis for history of atrial fibrillation and states he has been taking his medications except for today. Denies chest pain or shortness of breath. Denies palpitations. Denies lightheadedness or syncope. Prior similar symptoms: [facility] Medical History Essential hypertension Hx of thyroiditis Type 2 diabetes mellitus TIA (transient ischemic attack) [place] (myocardial infarction) Hyperlipidemia Atrial fibrillation with rapid ventricular response Former smoker COPD (chronic obstructive pulmonary disease) Asthma Seizures Stroke/cerebrovascular accident Myocardial infarct Chest pain Atrial fibrillation Non compliance with medical treatment History of embolic stroke LAE (left atrial enlargement) Chronic atrial fibrillation Elevated serum creatinine Mitral regurgitation Pulmonary HTN Tricuspid regurgitation Cerebrovascular disease Valvular heart disease Skull fracture Partial epilepsy with impairment of consciousness Migraine headache Syncope and collapse Home Medications ???Medication ???Instructions ???Recorded ???Last Taken ???Type divalproex 500 mg tablet,delayed 500 mg PO BID 11/15/22 Unknown His tory release (Depakote) metformin 500 mg tablet,extended 500 mg PO DAILY 11/15/22 Unknown H istory release 24 hr acetaminophen 500 mg tablet 1,000 mg PO Q6H PRN Pain 11/17/22 Unknown History furosemide 40 mg tablet 40 mg PO DAILY 11/17/22 Unknown Hi story blood pressure test kit-medium #1 ea 06/23/23 Unknown Rx diltiazem HCl 240 mg 240 mg PO DAILY #90 caps 12/05/23 Unknown Rx capsule,extended release 24 hr metoprolol succinate 50 mg 50 mg PO DAILY #90 tabs 01/04/24 U nknown Rx tablet,extended release 24 hr (Toprol XL) apixaban 5 mg tablet 5 mg PO BID #180 tabs 12/20/24 Unk nown Rx lisinopril 2.5 mg tablet 2.5 mg PO DAILY 07/09/24 Unknown H istory methocarbamol 500 mg tablet 500 mg PO Q8H 07/09/24 Unknown His tory Allergy/AdvReac Type Severity Reaction Status Date / Time Iodinated Contrast Media Allergy Severe Anaphylaxis Verified 07/09/24 08:27 (CONTRASTS) Family History Mother Alzheimer disease Breast cancer Atrial fibrillation Father Hypertension Hyperlipidemia Atrial fibrillation Polio Brother Heart disease Sister Breast cancer Son Seizures Autism Surgical History History of left heart catheterization (LHC) ( 09/08/15) Social History household members: none Smoking Status: Former smoker how long ago did patient quit smokin alcohol intake: never substance use type: does not use caffeine: No ROS ROS ED Constitutional Constitutional ED: Denies chills or fever(s) Eyes Eyes: Denies change in vision ENT ENT ED: Denies rhinorrhea or sore throat Cardiovascular Cardiovascular: Denies chest pain or palpitations Respiratory/Chest Respiratory/Chest: Denies cough or dyspnea Gastrointestinal Gastrointestinal: Denies abdominal pain, diarrhea, nausea or vomiting Genitourinary Genitourinary ED: Denies dysuria Musculoskeletal Musculoskeletal: Reports other Details: bilateral foot and ankle pain Integumentary Denies rash Neurologic Neurologic: Denies headache(s) Psychiatric Psychiatric: Denies suicidal thoughts EXAM Physical Exam Const Vital Signs: 07/09/24 08:21 07/09/24 08:49 07/09/24 10:23 Temperature 97.5 F L Temperature Source Oral Pulse Rate 155 H 122 H Respiratory Rate 19 H 18 Respiratory Effort Normal Respiratory Pattern Normal Blood Pressure 123/83 H 118/78 Blood Pressure Mean 96 91 Pulse Ox 97 96 Oxygen Delivery Method Room Air Room Air Positive unkempt General Appearance ED: unkempt HEENT Reports dry mucous membranes Mouth ED: Yes dry mucous membranes Mouth: dry mucous membranes Eyes PERRL and EOMs intact bilaterally Resp normal respiratory effort Auscultation: diminished lung sounds Cardio Rate: tachycard (more content not included)... Normal [facility] Epithelial cells.renal LM.HP F (Urine sed) [#/Area]Ordered By: Priscilla Reynaga on 07-09-2024 Urine Renal Epithelial Cells 0-5 SEEN /hpf 0-5 [facility] Epithelial cells.squamous LM Ql (Urine sed)Ordered By: Priscilla Reynaga on 07-09-2024 Epithelial cells.squamous LM.HPF (Urine sed) [#/Area] 0 /[HPF] 0-5 [facility] Fine Granular Casts LM.LPF ( Urine sed) [#/Area]Ordered By: Priscilla Reynaga on 07-09-2024 Urine Fine Granular Casts 0-5 SEEN /lpf 0-5 [facility] Foot min 3 Viewson 5 Foot min 3 Views [facility] Imaging Services [address] [place] [address] (544) Foot min 3 Views MR#: [id number] Acct: [id number] Name: REINA SULLIVAN Rep #: [id number] : 1955 M 69 From: Roscoe emmanuel MD PCP: Dr. Aric Zapien MD Status: REG ER Study: Foot min 3 Views Date of Exam: 07/09/24 Exam# [id number] Ordering Dr: Priscilla Reynaga MD EXAM: FOOT MIN 3 VIEWS CLINICAL HISTORY: Pain following injury. COMPARISON: None TECHNIQUE: Three views were obtained. FINDINGS: Diffuse dorsal soft tissue swelling. RAD/Foot min 3 Views IMPRESSION: Diffuse dorsal soft tissue swelling. Reading Location: [facility] CC: Dr. Priscilla Reynaga MD; Dr. Aric Zapien MD Contour Grinder: Signed Normal [facility] Glucose Ql (U)Ordered By: Dmitry Reynaga on 07-09-2024 Urine Glucose (UA) Normal mg/dl Normal [facility] H AND P Exam - Hospitaliston 07-09-2024 H&P Exam - Hospitalist [facility] Medical Records Department [address] [place] [address] H P Exam - Hospitalist 07/09/24 1039 MR#: [id number] Acct: [id number] Name: REINA SULLIVAN Rep #: [id number] : 1955 69 From: Yann Ascencio DO PCP: Dr. Aric Zapien MD Status:ADM IN Location: [facility] [id number] HPI - General General Date of Service: 07/09/24 HPI Narrative REINA SULLIVAN, is a 69 M who presents with ankle pain. Noted there is in both ankles. Denies any trauma or falls. States he was unable to put any weight on either of his ankles. Stated that he had a similar event when he was a child but never had a diagnosis. No fever or chills. Presented emergency room is found to be in atrial fibrillation with RVR with heart rate of 155. He received a total of 30 mg of IV diltiazem and his heart rate has improved. Patient states that he has been compliant with his medications. He did have a D-dimer of 1.11 but states that he is compliant with his medications with the exception did not take his medications this morning due to the severe ankle pain. [facility] Medical History Essential hypertension Hx of thyroiditis Type 2 diabetes mellitus TIA (transient ischemic attack) [place] (myocardial infarction) Hyperlipidemia Atrial fibrillation with rapid ventricular response Former smoker COPD (chronic obstructive pulmonary disease) Asthma Seizures Stroke/cerebrovascular accident Myocardial infarct Chest pain Atrial fibrillation Non compliance with medical treatment History of embolic stroke LAE (left atrial enlargement) Chronic atrial fibrillation Elevated serum creatinine Mitral regurgitation Pulmonary HTN Tricuspid regurgitation Cerebrovascular disease Valvular heart disease Skull fracture Partial epilepsy with impairment of consciousness Migraine headache Syncope and collapse Home Medications ???Medication ???Instructions ???Recorded ???Last Taken ???Type divalproex 500 mg tablet,delayed 500 mg PO BID 11/15/22 Unknown His tory release (Depakote) metformin 500 mg tablet,extended 500 mg PO DAILY 11/15/22 Unknown H istory release 24 hr acetaminophen 500 mg tablet 1,000 mg PO Q6H PRN Pain 11/17/22 Unknown History furosemide 40 mg tablet 40 mg PO DAILY 11/17/22 Unknown Hi story blood pressure test kit-medium #1 ea 06/23/23 Unknown Rx diltiazem HCl 240 mg 240 mg PO DAILY #90 caps 12/05/23 Unknown Rx capsule,extended release 24 hr metoprolol succinate 50 mg 50 mg PO DAILY #90 tabs 01/04/24 U nknown Rx tablet,extended release 24 hr (Toprol XL) apixaban 5 mg tablet 5 mg PO BID #180 tabs 05/18/24 Unk nown Rx lisinopril 2.5 mg tablet 2.5 mg PO DAILY 07/09/24 Unknown H istory methocarbamol 500 mg tablet 500 mg PO Q8H 07/09/24 Unknown His tory Allergy/AdvReac Type Severity Reaction Status Date / Time Iodinated Contrast Media Allergy Severe Anaphylaxis Verified 07/09/24 08:27 (CONTRASTS) Family History Mother Alzheimer disease Breast cancer Atrial fibrillation Father Hypertension Hyperlipidemia Atrial fibrillation Polio Brother Heart disease Sister Breast cancer Son Seizures Autism Surgical History History of left heart catheterization (LHC) ( 09/08/15) Social History household members: none Smoking Status: Former smoker how long ago did patient quit smokin alcohol intake: never substance use type: does not use caffeine: No ROS ROS Narrative No palpitations. No chest pain. No shortness of breath. All review of systems were negative except as mentioned above in the history of present illness and the other review of systems. Vital Signs Vital Signs Vital Signs: 07/09/24 08:21 07/09/24 08:49 07/09/24 10:23 Temperature 36.4 C L Temperature Source Oral Pulse Rate 155 H 122 H Respiratory Rate 19 H 18 Respiratory Effort Normal Respiratory Pattern Normal Blood Pressure 123/83 H 118/78 Blood Pressure Mean 96 91 Pulse Ox 97 96 Oxygen Delivery Method Room Air Room Air Weight Weight: 104.1 kg Body Mass Index (BMI) 29.5 Physical Exam Narrative - Physical Exam General: Alert, Oriented x3, Cooperative HEENT: Atraumatic, PERRLA, EOMI, Normocephalic Oral: Moist Mucosa, No Gingival or Mucosal Lesions/ Ulcerations Neck: Supple, No JVD, Negative Carotid Bruits Lungs: Clear to auscultation, Normal air movement Cardiovascular: Regular rate, Normal S1, Normal S2, No murmurs Abdomen: Bowel Sounds Present, Soft, Non Tender, Non-Distended, No Hepato-splenomegaly Extremities: No clubbing, No cyanosis, No edema, Capillary Re (more content not included)... Normal [facility] Hyaline casts LM.LPF (Urine sed) [#/Area]Ordered By: Priscilla Reynaga on 07-09-2024 Hyaline casts (Urine sed) [#/Area] 5 /[LPF] 0-5 [facility] Hyaline casts LM Ql (Urine sed) 5-10 SEEN /lpf 0-5 [facility] Ketones Test strip Ql (U)Ord ered By: Prisclilarobert Reynaga on 07-09-2024 Ketones Ql (U) 50 mg/dl High Negative [facility] L501.4020on 07-09-2024 TROPONIN-I HS 18 pg/mL Normal 3.0-78.0 [facility] Comment on above: Order Comment: 1 Y Result Comment: Plea se Note: New Test Units and Gender Specific Reference Ranges. For more information see Policy Stat Procedure [facility] High Sensitivity Troponin (TNIH) and attachments. Performed By: #### L 500.4050, L503.6005, L300.8000, L100.0100, L501.5425 #### [facility] [address] [place], [address] TROPONIN-I HS 18 pg/mL Normal 3.0-78.0 [facility] Comment on above: Result Comment: Plea se Note: New Test Units and Gender Specific Reference Ranges. For more information see Policy Stat Procedure [facility] High Sensitivity Troponin (TNIH) and attachments. Performed By: #### L 501.4020 #### [facility] [address] [place], [address] L501.5425on 07-09-2024 TROPONIN-I HS 15 pg/mL Normal 3.0-78.0 [facility] Comment on above: Order Comment: 1 Y Result Comment: Plea se Note: New Test Units and Gender Specific Reference Ranges. For more information see Policy Stat Procedure [facility] High Sensitivity Troponin (TNIH) and attachments. Performed By: #### L 500.4050, L503.6005, L300.8000, L100.0100, L501.5425 #### [facility] [address] [place], [address] Laboratory - Chemistry and C hemistry - challengeOrdered By: Priscilla Reynaga on 07-09-2024 AST [Catalytic activity/Vol] 11 U/L Low 15-37 [facility] Lactic Acidon 07-09-2024 Lactate [Moles/Vol] 1.4 mmol/L Normal 0.4-1.9 [facility] Comment on above: Order Comment: Y Performed By: #### L 500.4050, L503.6005, L300.8000, L100.0100, L501.5425 #### [facility] [address] [place], [place], [id number] Lactic acid measurementOrder ed By: Priscilla Reynaga on 07-09-2024 Lactate [Moles/Vol] 1.4 mmol/L 0.4-2.0 [facility] Microscopic analysis of urin e for red blood cells (RBC)Ordered By: Priscilla Reynaga on 07-09-2024 Microscopic analysis of urine for red blood cells (RBC) 0-5 SEEN /hpf 0-5 [facility] Urine RBC 0-5 SEEN /hpf 0-5 [facility] Mucus LM Ql (Urine sed)Order ed By: Priscilla Reynaga on 07-09-2024 Mucus Ql (Urine sed) 1+ /hpf [facility] Nitrite Test strip Ql (U)Ord ered By: Priscilla Reynaga on 07-09-2024 Nitrite Ql (U) Negative Negative [facility] Pathologist review Ramses (Unsp spec) [Interp]Ordered By: Priscilla Reynaga on 07-09-2024 Differential Pathologist's Review Reviewed [facility] Comment on above: Previous reported re sult: Arlene villarreal Edited by: SONDRA on 07/10/24:1444Neutrophilic leukocytosis.Clinical correlation necessary.Sreekanth Zhou M.D. 07/10/24 AMENDED REPORT 07/10/24 1444 PATH REV previously reported as: Arlene villarreal Protein Test strip Ql (U)Ord ered By: Priscilla Reynaga on 07-09-2024 Protein Ql (U) 100 mg/dl High Negative [facility] Review by pathologistOrdered By: Priscilla Reynaga on 07-09-2024 Pathologist review Ramses (Unsp spec) [Interp] Reviewed [facility] Comment on above: Previous reported re sult: Arlene villarreal Edited by: SONDRA on 07/10/24:1444Neutrophilic leukocytosis.Clinical correlation necessary.Sreekanth Zhou M.D. 07/10/24 AMENDED REPORT 07/10/24 1444 PATH REV previously reported as: Arlene villarreal Serum globulin measurementOr dered By: Priscilla Reynaga on 07-09-2024 Globulin (S) [Mass/Vol] 4.4 g/dL High 2.2-4.2 [facility] Serum or plasma alanine chatterjee otransferase (ALT) measurementOrdered By: Priscilla Reynaga on 07-09-2024 ALT [Catalytic activity/Vol] 16 U/L 16-61 [facility] Serum or plasma albumin rosalina urement (mass/volume)Ordered By: Priscilla Reynaga on 07-09-2024 Albumin [Mass/Vol] 2.9 g/dL Low 3.2-5.0 [facility] Serum or plasma alkaline elvis sphatase measurementOrdered By: Priscilla Reynaga on 07-09-2024 ALP [Catalytic activity/Vol] 68 U/L 45-117 [facility] Serum or plasma uric acid me asurement (mass/volume)Ordered By: Yann Ascencio on 07-09-2024 Urate [Mass/Vol] 7.5 mg/dL High 3.5-7.2 [facility] Comment on above: The drugs N-Acetylcy steine and Metamizole may falsely depress this assay. Squamous epithelial cells de tection in urine sediment by light microscopyOrdered By: Priscilla Reynaga on 07-09-2024 Epithelial cells.squamous LM Ql (Urine sed) 0 SEEN /hpf 0-5 [facility] Total proteinOrdered By: Taj Reynaga on 07-09-2024 Protein [Mass/Vol] 7.3 g/dL 6.4-8.2 [facility] Troponin IOrdered By: Yann gandara on 07-09-2024 Troponin I 18 pg/mL 3.0-78.0 [facility] Comment on above: Please Note: New Yudith t Units and Gender Specific Reference Ranges. For more information see Policy Stat Procedure [facility] High Sensitivity Troponin (TNIH) and attachments. Troponin I High Sensitivity 18 pg/mL 3.0-78.0 [facility] Comment on above: Please Note: New Yudith t Units and Gender Specific Reference Ranges. For more information see Policy Stat Procedure [facility] High Sensitivity Troponin (TNIH) and attachments. Uric Acidon 07-09-2024 URIC 7.5 mg/dL High 3.5-7.2 [facility] Comment on above: Result Comment: The drugs N-Acetylcysteine and Metamizole may falsely depress this assay. Performed By: #### L 500.4050, L503.6005, L300.8000, L100.0100, L501.5425 #### [facility] [address] [place], [address] Urinalysis, Completeon 07-09 CAST,WBC 0-5 SEEN Normal None Seen [facility] Comment on above: Order Comment: COLLE CTOR TO SPECIFY Performed By: #### L 500.4050, L503.6005, L300.8000, L100.0100, L501.5425 #### [facility] [address] [place], [address] CAST,FINE GRAN 0-5 SEEN Normal 0-5 [facility] Comment on above: Order Comment: COLLE CTOR TO SPECIFY Performed By: #### L 500.4050, L503.6005, L300.8000, L100.0100, L501.5425 #### [facility] [address] [place], [address] CAST,HYALINE 5-10 SEEN Normal 0-5 [facility] Comment on above: Order Comment: COLLE CTOR TO SPECIFY Performed By: #### L 500.4050, L503.6005, L300.8000, L100.0100, L501.5425 #### [facility] [address] [place], [address] EPI,RENAL 0-5 SEEN Normal 0-5 [facility] Comment on above: Order Comment: COLLE CTOR TO SPECIFY Performed By: #### L 500.4050, L503.6005, L300.8000, L100.0100, L501.5425 #### [facility] [address] [place], [address] Mucus Ql (Urine sed) 1+ /hpf Normal [facility] Comment on above: Order Comment: TORI CTOR TO SPECIFY Performed By: #### L 500.4050, L503.6005, L300.8000, L100.0100, L501.5425 #### [facility] [address] [place], [address] RBC 0-5 SEEN Normal 0-5 [facility] Comment on above: Order Comment: TORI CTOR TO SPECIFY Performed By: #### L 500.4050, L503.6005, L300.8000, L100.0100, L501.5425 #### [facility] [address] [place], [address] WBC 0-5 SEEN Normal 0-5 [facility] Comment on above: Order Comment: TORI CTOR TO SPECIFY Performed By: #### L 500.4050, L503.6005, L300.8000, L100.0100, L501.5425 #### [facility] [address] [place], [address] BACTERIA 0 SEEN Normal None Seen [facility] Comment on above: Order Comment: TORI CTOR TO SPECIFY Performed By: #### L 500.4050, L503.6005, L300.8000, L100.0100, L501.5425 #### [facility] [address] [place], [address] EPI,SQUAMOUS 0 SEEN Normal 0-5 [facility] Comment on above: Order Comment: COLLE CTOR TO SPECIFY Performed By: #### L 500.4050, L503.6005, L300.8000, L100.0100, L501.5425 #### [facility] [address] [place], [address] Urine blood detectionOrdered By: Priscilla Reynaga on 07-09-2024 Urine Occult Blood 10 /ul High Negative [facility] Urine clarityOrdered By: Taj Reynaga on 07-09-2024 Clarity (U) Clear Clear [facility] Urine color determinationOrd ered By: Priscilla Reynaga on 07-09-2024 Color (U) Yellow Yellow [facility] Urine glucose detectionOrder ed By: Priscilla Reynaga on 07-09-2024 Glucose Ql (U) Normal mg/dl Normal [facility] Urine leukocyte esterase det ection by dipstickOrdered By: Priscilla Reynaga on 07-09-2024 Leukocyte esterase Test strip Ql (U) 25 /ul High Negative [facility] Urine pHOrdered By: Priscilla Wynn outmaynor on 07-09-2024 pH (U) 6.0 [pH] 5.0 - 8.0 [facility] Urine sediment bacteria coun t by microscopy (number/high power field)Ordered By: Priscilla Reynaga on 07-09-2024 Bacteria LM.HPF (Urine sed) [#/Area] 0 /[HPF] None Seen [facility] Urine sediment fine granular cast count by microscopy (number/low power field)Ordered By: Priscilla Reynaga on 07-09-2024 Fine Granular Casts LM.LPF (Urine sed) [#/Area] 0-5 SEEN /lpf 0-5 [facility] Urine sediment leukocyte yanira t count by microscopy (number/low power field)Ordered By: Priscilla Reynaga on 07-09-2024 WBC casts LM.LPF (Urine sed) [#/Area] 0-5 SEEN /lpf None Seen [facility] Urine sediment renal epithel ial cell count by microscopy (number/high power field)Ordered By: Priscilla Reynaga on 07-09-2024 Epithelial cells.renal LM.HPF (Urine sed) [#/Area] 0 /[HPF] 0-5 [facility] Urine specific gravity measu rementOrdered By: Priscilla Reynaga on 07-09-2024 Specific gravity (U) [Rel density] 1.020 1.002-1.030 [facility] Urine urobilinogen measureme ntOrdered By: Priscilla Reynaga on 07-09-2024 Urobilinogen Ql (U) 1 mg/dl High Normal [facility] Urobilinogen Ql (U)Ordered B y: Priscilla Reynaga on 07-09-2024 Urobilinogen (U) [Mass/Vol] 1 mg/dL High Normal [facility] Venous Duplex US - Noam Extre mon 07-09-2024 Venous Duplex US - Noam Extrem [facility] [address] [place] [address] Venous Duplex US - Noam Extrem 07/09/24 1014 MR#: [id number] Acct: [id number] Name: REINA SULLIVAN Rep #: [id number] : 1955 69 From: Yann Miller MD Attending Dr: Dr. Yann Ascencio, Status: ADM IN Ordering Dr: Priscilla Reynaga MD Date: 07/09/24 Location: PCU Sex: M C Admitted: 07/09/24 Reason For Study Reason For Study: Elevated d-dimer RIGHT LEFT GSV is normal. GSV is normal. CFV is compressible, spontaneous, phasic, competent CFV is compressible, spontaneous, phasic, competent, and demonstrates normal augmentation. and demonstrates normal augmentation. FV is compressible, spontaneous, phasic, competent FV is compressible, spontaneous, phasic, competent and demonstrates normal augmentation. and demonstrates normal augmentation. POP V is compressible, spontaneous, phasic, competent POP V is compressible, spontaneous, phasic, competent and demonstrates normal augmentation. and demonstrates normal augmentation. T/P Trunk is compressible. T/P Trunk is compressible. PTV is compressible. PTV is compressible. RT PerV is compressible. LT PerV is compressible. Procedure This is a venous duplex using B-mode, color flow and spectral Doppler. Exam performed portable in ED. A preliminary report was called and/or faxed to Dr. Reynaga. VL/Venous Duplex US - Noam Extrem Interpretation Summary Deep veins of the bilateral lower extremities are patent and compressible segmentally. There is no evidence of bilateral lower extremity deep vein thrombosis. The bilateral great saphenous veins appear patent and compressible segmentally. Ordering Physician: Priscilla Reynaga Referring Physician: Aric Zapien Performed By: Damaris Dudley RVT 07/10/24 1556 Date Yann Miller MD CC: Dr. Priscilla Reynaga MD; Dr. Yann Ascencio DO; Dr. Aric Zapien MD Date Dictated: 07/09/24 1014 Date Transcribed: 07/10/241555 Contour Grinder: Signed Normal [facility] WBC casts LM.LPF (Urine sed) [#/Area]Ordered By: Priscilla Reynaga on 07-09-2024 Urine White Blood Cell Casts 0-5 SEEN /lpf None Seen [facility] White blood cell countOrdere d By: Priscilla Reynaga on 07-09-2024 Urine WBC 0-5 SEEN /hpf 0-5 [facility] White blood cell count 0-5 SEEN /hpf 0-5 [facility]ULL[facility]AN ([id number]) 1955 M Date Time Provider Department 06/26/24 DAMARIS SOTELO I NEAGCLM During your visit today, we recorded the following information about you: Rodolfo Werner 06/26/2024 8:26 AM Signed I left a for patient to call when available to schedule an appt fro his fracture referral in his chart Allergies As of Date: 06/26/2024 Noted Allergy Reaction DYE 03/02/2016 14 - Other: See Comments Comments: used for heart cath Date Reviewed: 06/22/2024 Reviewed by: Felicita Bolden MA - Fully Assessed Prescriptions as of 06/26/2024 - lisinopril 2.5 mg tablet Take 1 tablet by mouth once daily. For kidneys - methocarbamol (ROBAXIN) 500 mg tablet Take 1 tablet by mouth three times a day. - divalproex DR (DEPAKOTE) 500 mg EC tablet Take 1 tablet by mouth two times a day. - metFORMIN ER (GLUCOPHAGE XR) 500 mg 24 hr tablet Take 1 tablet by mouth daily with breakfast. - metoprolol succinate ER (TOPROL XL) 50 mg 24 hr tablet Take 1 tablet by mouth once daily. - furosemide (LASIX) 40 mg tablet Take 1 tablet by mouth once daily. - Lancets lancets Test blood sugar(s) 1 times daily. Dx: Type 2 DM - Uncontrolled E11.65 Insulin: No - blood sugar diagnostic (BLOOD GLUCOSE TEST) test strip Test blood sugar(s) 1 times daily. Dx: Type 2 DM - Uncontrolled E11.65 Insulin: No - apixaban (ELIQUIS) 5 mg tab tab(s) Take 1 tablet by mouth twice daily. Problem List As Of Date 06/26/2024 Noted Resolved 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 (HCC) [I48.21] HTN (hypertension) [I10] Hyperlipidemia [E78.5] Seizures (HCC) [R56.9] Hyperglycemia [R73.9] 03/23/2017 03/26/2021 Primary pulmonary HTN (HCC) [I27.0] 07/26/2017 Mitral regurgitation [I34.0] 07/26/2017 Non-rheumatic tricuspid valve insufficiency [I3*07/26/2017 Enlarged thoracic aorta (HCC) [I77.89] 07/26/2017 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 status epilepticus*06/27/2020 03/25/2021 Type 2 diabetes mellitus without complication, *03/26/2021 Encounter for hepatitis C screening test for lo*03/09/2022 09/30/2022 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/09/2022 Adjustment disorder with mixed emotional featur*09/30/2022 Allergy [T78.40XA] 09/30/2022 Anxiety state [F41.1] 09/30/2022 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 Encounter for issue of repeat prescription [Z76*09/30/2022 09/30/2022 Fracture of skull (HCC) [S02.91XA] 09/30/2022 09/30/2022 Headache [R51.9] 09/30/2022 09/30/2022 High serum creatinine [R79.89] 09/30/2022 09/30/2022 Intracranial injury of other and unspecified na*09/30/2022 Left atrial enlargement [I51.7] 09/30/2022 longterm current use of 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 *09/30/2022 Migraine headache [G43.909] 09/30/2022 Need for Streptococcus pneumoniae vaccination [*09/30/2022 Neoplasm of uncertain behavior of skin [D48.5] 09/30/2022 Noncompliance with treatment [Z91.199] 09/30/2022 Other polyp of sinus [J33.8] 09/30/2022 Pulmonary hypertension (HCC) [I27.20] 09/30/2022 Syncope and collapse [R55] 09/30/2022 09/30/2022 Undiagnosed cardiac murmurs [R01.1] 09/30/2022 09/30/2022 History of skull fracture [Z87.81] 09/30/2022 Encounter Status:Closed by RODOLFO WERNER on 06/26/24 [facility] Drew 06-25-2024 CNPN Telephone (FAMPWS) REINA SULLIVAN ([id number]) 1955 M Date Time Provider Department 06/25/24 FLORINDA STEVENSON During your visit today, we recorded the following information about you: Florinda Stevenson APRN.KVNG 06/25/2024 7:58 AM Signed Please let patient know that he has some mild effects of diabetes on his kidneys.we do need to start him on lisinopril 2.5 mg daily to protect his kidneys from diabetes. If you say that this medicine is for blood pressure but that is not why I want him to take it. Also, please facilitate consult to spine surgery. He does have a compression fracture. Karla Ferguson MA 06/25/2024 10:47 AM Signed Message left for pt to call back for results. Mecca Tompkins MA 06/25/2024 11:02 AM Signed Patient returned missed call and received the provider's message. He voiced understanding. Patient requests all medical updates be discussed with his ex-spouse, Halima Sullivan. 06/16/24 telephone encounter routed to [facility] for back, neck, and spine pool again for scheduling consultation with orthopaedic hse specialist. Felicita Bolden MA 06/25/2024 11:52 AM Signed Spoke with ex , Halima, and she was made aware of results and provider message. She was also given the number to call and schedule his appointment for spine. She verbalizes understanding. Felicita Bolden MA June 25, 2024 11:52 AM Allergies As of Date: 06/25/2024 Noted Allergy Reaction DYE 03/02/2016 14 - Other: See Comments Comments: used for heart cath Date Reviewed: 06/22/2024 Reviewed by: Felicita Bolden MA - Fully Assessed Reason for Visit: Results [95] Primary Visit Diagnosis:Type 2 diabetes mellitus without complication, without long-term current use of insulin (HCC) [E11.9] Order(s):lisinopril 2.5 mg tabletTake 1 tablet by mouth once daily. For kidneysDisp: 90 tabletRfl: 3 Prescriptions as of 06/25/2024 - lisinopril 2.5 mg tablet Take 1 tablet by mouth once daily. For kidneys - methocarbamol (ROBAXIN) 500 mg tablet Take 1 tablet by mouth three times a day. - divalproex DR (DEPAKOTE) 500 mg EC tablet Take 1 tablet by mouth two times a day. - metFORMIN ER (GLUCOPHAGE XR) 500 mg 24 hr tablet Take 1 tablet by mouth daily with breakfast. - metoprolol succinate ER (TOPROL XL) 50 mg 24 hr tablet Take 1 tablet by mouth once daily. - furosemide (LASIX) 40 mg tablet Take 1 tablet by mouth once daily. - Lancets lancets Test blood sugar(s) 1 times daily. Dx: Type 2 DM - Uncontrolled E11.65 Insulin: No - blood sugar diagnostic (BLOOD GLUCOSE TEST) test strip Test blood sugar(s) 1 times daily. Dx: Type 2 DM - Uncontrolled E11.65 Insulin: No - apixaban (ELIQUIS) 5 mg tab tab(s) Take 1 tablet by mouth twice daily. Problem List As Of Date 06/25/2024 Noted Resolved 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 (HCC) [I48.21] HTN (hypertension) [I10] Hyperlipidemia [E78.5] Seizures (HCC) [R56.9] Hyperglycemia [R73.9] 03/23/2017 03/26/2021 Primary pulmonary HTN (HCC) [I27.0] 07/26/2017 Mitral regurgitation [I34.0] 07/26/2017 Non-rheumatic tricuspid valve insufficiency [I3*07/26/2017 Enlarged thoracic aorta (HCC) [I77.89] 07/26/2017 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 status epilepticus*06/27/2020 03/25/2021 Type 2 diabetes mellitus without complication, *03/26/2021 Encounter for hepatitis C screening test for lo*03/09/2022 09/30/2022 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/09/2022 Adjustment disorder with mixed emotional featur*09/30/2022 Allergy [T78.40XA] 09/30/2022 Anxiety state [F41.1] 09/30/2022 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 Encounter for issue of repeat prescription [Z76*09/30/2022 09/30/2022 Fracture of skull (HCC) [S02.91XA] 09/30/2022 09/30/2022 Headache [R51.9] 09/30/2022 09/30/2022 High serum creatinine [R79.89] 09/30/2022 09/30/2022 Intracranial injury of other and unspecified na*09/30/2022 Left atrial enlargement [I51.7] 09/30/2022 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 *09/30/2022 Migraine headache [G43.909] 09/30/2022 Need for Streptococcus pneumoniae vaccination [*09/30/2022 Neoplasm of uncertain behavior of skin [D48.5] 09/30/2022 Noncompliance with treatment [Z91.199] 09/30/2022 Other polyp of sinus [J33.8] 09/30/2022 Pulmonary hypertension (HCC) [I27.20] 09/30/2022 Syncope and collapse [R55] 09/30/2022 09/30/2022 Undiagnosed cardiac murmurs [R01.1] 09/30/2022 09/30/2022 History of skull fracture [Z87.81] 09/30/2022 Prescriptions ordered this encounter Disp Refills Start End LISINOPRIL 2.5 MG TABLET 90 t* 3 06/25/2024 06/25/2025 Route: ORAL Sig: Take 1 tablet by mouth once daily. For kidneys Encounter Status:Closed by FELICITA BOLDEN on 06/25/24 Normal [facility] ALBUMIN/CREATININE RATIO, UR INEon 06-22-2024 Albumin DL <= 20 mg/L (U) [Mass/Vol] 223.9 mg/L Normal [facility] Comment on above: Order Comment: Speci gege Type: URINE SPECIMENOrdering Facility: [facility] Address: [address] [place] [address] Performed By: #### U ACR ####[facility] LABCLIA [id number] [facility] [id number] [address] [place] Albumin/Creatinine (U) [Mass ratio] 262 mg/g High <30 [facility] Comment on above: Order Comment: Speci men Type: URINE SPECIMENOrdering Facility: [facility] Address: [address] [place] [address] Result Comment: Adul t Male and Female Nephrotic Criteria: <30 mg/g is considered normal to mildly increased 30-300 mg/g is considered moderately increased >300 mg/g is considered severely increased KDIGO. (2013). KDIGO 2012 Clinical Practice Guideline for the Evaluation and Management of Chronic Kidney Disease. Official Journal of the International Society of Nephrology, 3(1), 1-150. Performed By: #### U ACR ####[facility] LABCLIA [id number] [place] [address] [place] Creatinine (U) [Mass/Vol] 85.6 mg/dL Normal 20.0-300.0 [facility] Comment on above: Order Comment: Speci men Type: URINE SPECIMENOrdering Facility: [facility] Address: [address] [place] [address] Performed By: #### U ACR ####[facility] LABCLIA [id number] [place] [address] [place] CBC W Auto Differential pane l (Bld)on 06-22-2024 Basophils (Bld) [#/Vol] 0.09 10*3/uL Normal <0.11 [facility] Comment on above: Order Comment: Speci men Type: BLOOD SPECIMENOrdering Facility: [facility] Address: [address] [place] [address] Performed By: #### 5 7021-8 ####[facility] LABCLIA [id number] [place] [address] [place] Basophils/100 WBC (Bld) 0.8 % Normal [facility] Comment on above: Order Comment: Speci men Type: BLOOD SPECIMENOrdering Facility: [facility] Address: [address] [place] [address] Performed By: #### 5 7021-8 ####[facility] LABCLIA [id number] [address] [place] Differential cell count method Nom (Bld) Auto Normal [facility] Comment on above: Order Comment: Speci men Type: BLOOD SPECIMENOrdering Facility: [facility] Address: [address] [place] [id number] Performed By: #### 5 7021-8 ####[facility] LABCLIA [id number] [place] [address] [place] Eosinophils (Bld) [#/Vol] 0.07 10*3/uL Normal <0.46 [facility] Comment on above: Order Comment: Speci men Type: BLOOD SPECIMENOrdering Facility: [facility] Address: [address] [place] [address] Performed By: #### 5 7021-8 ####[facility] LABCLIA [id number] [place] [address] [place] Eosinophils/100 WBC (Bld) 0.7 % Normal [facility] Comment on above: Order Comment: Speci men Type: BLOOD SPECIMENOrdering Facility: [facility] Address: [address] [place] [address] Performed By: #### 5 7021-8 ####[facility] LABCLIA [id number] [place] [address] [place] Erythrocyte distribution width (RBC) [Ratio] 13.5 % Normal 11.5-15.0 [facility] Comment on above: Order Comment: Speci men Type: BLOOD SPECIMENOrdering Facility: [facility] Address: [address] [place] [address] Performed By: #### 5 7021-8 ####[facility] LABCLIA [id number] [place] [address] [place] Hematocrit (Bld) [Volume fraction] 45.6 % Normal 39.0-51.0 [facility] Comment on above: Order Comment: Speci men Type: BLOOD SPECIMENOrdering Facility: [facility] Address: [address] [place] [address] Performed By: #### 5 7021-8 ####[facility] LABCLIA [id number] [address] [place] [address] [place] Hemoglobin (Bld) [Mass/Vol] 14.9 g/dL Normal 13.0-17.0 [facility] Comment on above: Order Comment: Speci men Type: BLOOD SPECIMENOrdering Facility: [facility] Address: [address] [place] [address] Performed By: #### 5 7021-8 ####[facility] LABCLIA [id number] [place] [address] [place] Immature granulocytes (Bld) [#/Vol] 0.13 10*3/uL High <0.10 [facility] Comment on above: Order Comment: Speci men Type: BLOOD SPECIMENOrdering Facility: [facility] Address: [address] [place] [address] Performed By: #### 5 7021-8 ####[facility] LABCLIA [id number] [place] [address] [place] Immature granulocytes/100 WBC (Bld) 1.2 % Normal [facility] Comment on above: Order Comment: Speci men Type: BLOOD SPECIMENOrdering Facility: [facility] Address: [address] [place] [address] Performed By: #### 5 7021-8 ####[facility] LABCLIA [id number] [place] [address] [place] Lymphocytes (Bld) [#/Vol] 1.87 10*3/uL Normal 1.00-4.00 [facility] Comment on above: Order Comment: Speci men Type: BLOOD SPECIMENOrdering Facility: [facility] Address: [address] [place] [address] Performed By: #### 5 7021-8 ####[facility] LABCLIA [id number] [place] [address] [place] Lymphocytes/100 WBC (Bld) 17.4 % Normal [facility] Comment on above: Order Comment: Speci men Type: BLOOD SPECIMENOrdering Facility: [facility] Address: [address] [place] [address] Performed By: #### 5 7021-8 ####[facility] LABIA [id number] [place] [address] [place] MCH (RBC) [Entitic mass] 30.8 pg Normal 26.0-34.0 [facility] Comment on above: Order Comment: Speci men Type: BLOOD SPECIMENOrdering Facility: [facility] Address: [address] [place] [address] Performed By: #### 5 7021-8 ####[facility] LABIA [id number] [place] [address] [place] MCHC (RBC) [Mass/Vol] 32.7 g/dL Normal 30.5-36.0 [facility] Comment on above: Order Comment: Speci men Type: BLOOD SPECIMENOrdering Facility: [facility] Address: [address] [place] [address] Performed By: #### 5 7021-8 ####[facility] LABIA [id number] [place] [address] [place] MCV (RBC) [Entitic vol] 94.2 fL Normal 80.0-100.0 [facility] Comment on above: Order Comment: Speci men Type: BLOOD SPECIMENOrdering Facility: [facility] Address: [address] [place] [address] Performed By: #### 5 7021-8 ####[facility] LABIA [id number] [place] [address] [place] Monocytes (Bld) [#/Vol] 0.96 10*3/uL High <0.87 [facility] Comment on above: Order Comment: Speci men Type: BLOOD SPECIMENOrdering Facility: [facility] Address: [address] [place] [address] Performed By: #### 5 7021-8 ####[facility] LABIA [id number] [place] [address] [place] Monocytes/100 WBC (Bld) 8.9 % Normal [facility] Comment on above: Order Comment: Speci men Type: BLOOD SPECIMENOrdering Facility: [facility] Address: [address] [place] [address] Performed By: #### 5 7021-8 ####[facility] LABCLIA [id number] [place] [address] [place] Neutrophils (Bld) [#/Vol] 7.61 10*3/uL High 1.45-7.50 [facility] Comment on above: Order Comment: Speci men Type: BLOOD SPECIMENOrdering Facility: [facility] Address: [address] [place] [address] Performed By: #### 5 7021-8 ####[facility] LABCLIA [id number] [place] [address] [place] Neutrophils/100 WBC (Bld) 71.0 % Normal [facility] Comment on above: Order Comment: Speci men Type: BLOOD SPECIMENOrdering Facility: [facility] Address: [address] [place] [address] Performed By: #### 5 7021-8 ####[facility] LABCLIA [id number] [place] [address] [place] Nucleated RBC (Bld) [#/Vol] 10*3/uL Normal <0.01 [facility] Comment on above: Order Comment: Speci men Type: BLOOD SPECIMENOrdering Facility: [facility] Address: [address] [place] [address] Performed By: #### 5 7021-8 ####[facility] LABCLIA [id number] [place] [address] [place] Nucleated RBC/100 WBC (Bld) [Ratio] 0.0 /100 WBC Normal [facility] Comment on above: Order Comment: Speci men Type: BLOOD SPECIMENOrdering Facility: [facility] Address: [address] [place] [address] Performed By: #### 5 7021-8 ####[facility] LABIA [id number] [place] [address] [place] Platelet mean volume (Bld) [Entitic vol] 10.8 fL Normal 9.0-12.7 [facility] Comment on above: Order Comment: Speci men Type: BLOOD SPECIMENOrdering Facility: [facility] Address: [address] [place] [address] Performed By: #### 5 7021-8 ####[facility] LABIA [id number] [place] [address] [place] Platelets (Bld) [#/Vol] 422 10*3/uL High 150-400 [facility] Comment on above: Order Comment: Speci men Type: BLOOD SPECIMENOrdering Facility: [facility] Address: [address] [place] [address] Performed By: #### 5 7021-8 ####[facility] LABIA [id number] [place] [address] [place] RBC (Bld) [#/Vol] 4.84 10*6/uL Normal 4.20-6.00 [facility] Comment on above: Order Comment: Speci men Type: BLOOD SPECIMENOrdering Facility: [facility] Address: [address] [place] [address] Performed By: #### 5 7021-8 ####[facility] LABIA [id number] [place] [address] [place] WBC (Bld) [#/Vol] 10.73 10*3/uL Normal 3.70-11.00 [facility] Comment on above: Order Comment: Speci men Type: BLOOD SPECIMENOrdering Facility: [facility] Address: [address] [place] [address] Performed By: #### 5 7021-8 ####[facility] TEO [id number] [address] [place] CNOVon 06-22-2024 CNOV Office Visit (FAMPWS ) REINA SULLIVAN ([id number]) 1955 M Date Time Provider Department 06/22/24 1:20 PM FLORINDA STEVENSON FAMPWS During your visit today, we recorded the following information about you: Temperature Pulse Blood pressure 97.8 degrees 88/minute 118/76 Florinda Stevenson, [employer]ENT 06/22/2024 2:00 PM Signed This is a 69 year old male who presents today with: Patient presents with: Fall: Slipped on ice Back Pain HISTORY OF PRESENT ILLNESS: Reina Sullivan is a 69 year old male. Patient presents with: Fall: Slipped on ice Back Pain Slipped on the ice. Fell striking his back. Unable to lie down in bed. Sleeping in recliner chair. Pain is middle of lumbar region down into sacrum. No sciatica. Doesn't remember what day. No records available No loss of bowel or bladder function. Didn't go to ER because hurt too bad to move. Hurts to sit a little bit. Reclined it doesn't hurt. Hurts to walk a little. 9.5/10- sharp pain PAST MEDICAL HISTORY: PAST MEDICAL HISTORY Diagnosis Date Atrial fibrillation ([facility]) Dr. 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 Huston TBI (traumatic brain injury) ([facility]) 2 times PAST SURGICAL HISTORY Procedure Laterality Date LEFT HEART CATH,PERCUTANEOUS 09/08/2015 Mel Dewitt: cardiac cath: no disease EF 60%, 2+ MR PAST SURGICAL HISTORY OF collarbone ALLERGIES Dye MEDICATIONS Current Outpatient Medications Medication Sig divalproex DR (DEPAKOTE) 500 mg EC tablet Take 1 tablet by mouth two times a day. metFORMIN ER (GLUCOPHAGE XR) 500 mg 24 hr tablet Take 1 tablet by mouth daily with breakfast. metoprolol succinate ER (TOPROL XL) 50 mg 24 hr tablet Take 1 tablet by mouth once daily. furosemide (LASIX) 40 mg tablet Take 1 tablet by mouth once daily. apixaban (ELIQUIS) 5 mg tab tab(s) Take 1 tablet by mouth twice daily. Lancets lancets Test blood sugar(s) 1 times daily. Dx: Type 2 DM - Uncontrolled E11.65 Insulin: No blood sugar diagnostic (BLOOD GLUCOSE TEST) test strip Test blood sugar(s) 1 times daily. Dx: Type 2 DM - Uncontrolled E11.65 Insulin: No No current facility-administered medications for this visit. FAMILY HISTORY Problem Relation Age of Onset Alzheimer's Disease Mother Breast Cancer Mother other (a fib) Mother Hypertension Father Hyperlipidemia Father other (A fib) Father other (polio) Father Heart Brother Breast Cancer Sister Seizures Son other (austism) Son other (Brain) Son Social History Tobacco Use Smoking status: Former Smokeless tobacco: Never Tobacco comments: Quit in 2005 REVIEW OF SYSTEMS GENERAL: Uncertain weight loss, + malaise, no fevers/chills HEENT: Negative for frequent or significant headaches, No changes in hearing or vision. RESPIRATORY: Negative for cough, hemoptysis, wheezing, dyspnea or shortness of breath CARDIOVASCULAR: Negative for chest pain, leg swelling, orthopnea, or palpitations GI: No nausea, vomiting, or diarrhea/constipation. No hematochezia/melena. : No history of dysuria, frequency or incontinence MUSCULOSKELETAL: Lower lumbar pain SKIN: No bruising that he knows of EXAM: BP 118/76 Pulse 88 Temp 36.6 ?C (97.8 ?F) SpO2 99% PHYSICAL EXAM: Physical Exam Vitals reviewed. Constitutional: Appearance: Normal appearance. Cardiovascular: Rate and Rhythm: Normal rate and regular rhythm. Pulses: Normal pulses. Heart sounds: Normal heart sounds. Pulmonary: Effort: Pulmonary effort is normal. Breath sounds: Normal breath sounds. Musculoskeletal: Right lower leg: No edema. Left lower leg: No edema. Comments: Unable to palpate lumbar pain at or along either side of lumbar spine No ecchymosis or swelling Distal sensation intact Strength in lower leg 4/4 Unable to stand straight. + Leg lift noam. Modified d/t fear of movement Not able to extend or move side to side- walking with a cane Skin: General: Skin is warm and dry. Neurological: Mental Status: He is alert and oriented to person, place, and time. LABS: consolidate labs for follow up since we need to check for blood loss- pt. On DOAC ASSESSMENT/PLAN: 1. Type 2 diabetes mellitus without complication, without long-term current use of insulin (HCC) - ICD9: 250.00, ICD10: E11.9 (primary diagnosis) - Control undetermined, due for labs - Continue current medications - HEMOGLOBIN A1C - ALBUMIN/CREATININE RATIO, URINE - COMPREHENSIVE METABOLIC PANEL - MAGNESIUM 2. Fall, initial encounter - ICD9: E888.9, ICD10: W19.XXXA Concern for compression FX - COMPLETE BLOOD COUNT AND DIFFERENTIAL - IRON AND TIBC - FERRITIN - XR LUMBAR GENERAL 3V AP/LAT/L5-S1 - URINALYSIS, REFLEX MICROSCOPIC - Methocarbamol 500 mg 3 x da (more content not included)... Normal [facility] 06-22[facility]2024 [facility] RE[facility] SULLIVAN ([id number]) 1955 M Date Time Provider Department 06/22/24 ARIC ZAPIEN [facility] During your visit today, we recorded the following information about you: Rebecca Dumas RN 06/22/2024 4:39 PM Signed Asking for provider to clarify pt's order for [facility]. Does patient need to see a surgeon? Please advise so that [facility] staff can schedule patient appropriately. BROOKLYN Malone Jacqueline A, APRN.[facility] 06/22/2024 5:04 PM Signed Yes. An orthopedic hse specialist. Does not need surgery but they can evaluate for kyphoplasty- setting the compression if needed Allergies As of Date: 06/22/2024 Noted Allergy Reaction DYE 03/02/2016 14 - Other: See Comments Comments: used for heart cath Date Reviewed: 06/22/2024 Reviewed by: Felicita Bolden MA - Fully Assessed Reason for Visit: Patient Question [0467] Prescriptions as of 06/22/2024 - methocarbamol (ROBAXIN) 500 mg tablet Take 1 tablet by mouth three times a day. - divalproex DR (DEPAKOTE) 500 mg EC tablet Take 1 tablet by mouth two times a day. - metFORMIN ER (GLUCOPHAGE XR) 500 mg 24 hr tablet Take 1 tablet by mouth daily with breakfast. - metoprolol succinate ER (TOPROL XL) 50 mg 24 hr tablet Take 1 tablet by mouth once daily. - furosemide (LASIX) 40 mg tablet Take 1 tablet by mouth once daily. - Lancets lancets Test blood sugar(s) 1 times daily. Dx: Type 2 DM - Uncontrolled E11.65 Insulin: No - blood sugar diagnostic (BLOOD GLUCOSE TEST) test strip Test blood sugar(s) 1 times daily. Dx: Type 2 DM - Uncontrolled E11.65 Insulin: No - apixaban (ELIQUIS) 5 mg tab tab(s) Take 1 tablet by mouth twice daily. Problem List As Of Date 06/22/2024 Noted Resolved 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 (HCC) [I48.21] HTN (hypertension) [I10] Hyperlipidemia [E78.5] Seizures (HCC) [R56.9] Hyperglycemia [R73.9] 03/23/2017 03/26/2021 Primary pulmonary HTN (HCC) [I27.0] 07/26/2017 Mitral regurgitation [I34.0] 07/26/2017 Non-rheumatic tricuspid valve insufficiency [I3*07/26/2017 Enlarged thoracic aorta (HCC) [I77.89] 07/26/2017 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 status epilepticus*06/27/2020 03/25/2021 Type 2 diabetes mellitus without complication, *03/26/2021 Encounter for hepatitis C screening test for lo*03/09/2022 09/30/2022 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/09/2022 Adjustment disorder with mixed emotional featur*09/30/2022 Allergy [T78.40XA] 09/30/2022 Anxiety state [F41.1] 09/30/2022 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 Encounter for issue of repeat prescription [Z76*09/30/2022 09/30/2022 Fracture of skull (HCC) [S02.91XA] 09/30/2022 09/30/2022 Headache [R51.9] 09/30/2022 09/30/2022 High serum creatinine [R79.89] 09/30/2022 09/30/2022 Intracranial injury of other and unspecified na*09/30/2022 Left atrial enlargement [I51.7] 09/30/2022 longterm current use of 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 *09/30/2022 Migraine headache [G43.909] 09/30/2022 Need for Streptococcus pneumoniae vaccination [*09/30/2022 Neoplasm of uncertain behavior of skin [D48.5] 09/30/2022 Noncompliance with treatment [Z91.199] 09/30/2022 Other polyp of sinus [J33.8] 09/30/2022 Pulmonary hypertension (HCC) [I27.20] 09/30/2022 Syncope and collapse [R55] 09/30/2022 09/30/2022 Undiagnosed cardiac murmurs [R01.1] 09/30/2022 09/30/2022 History of skull fracture [Z87.81] 09/30/2022 Encounter Status:Closed by FELICITA BOLDEN on 06/22/24 Normal [facility] Comprehensive metabolic 2000 panelon 06-22-2024 Albumin [Mass/Vol] 4.2 g/dL Normal 3.9-4.9 [facility] Comment on above: Order Comment: Speci men Type: BLOOD SPECIMENOrdering Facility: [facility] Address: [address] [place] [address] Performed By: #### 2 4323-8, 82539-6, ANA, 2276-4 ####[facility] LABCLIA [id number] [place] [address] [address] [place] ALP [Catalytic activity/Vol] 124 U/L High 38-113 [facility] Comment on above: Order Comment: Speci men Type: BLOOD SPECIMENOrdering Facility: [facility] Address: [address] [place] [address] Performed By: #### 2 4323-8, 92677-3, LIPNF, 6-4 ####[facility] LABCLIA [id number] [place] [address] [place] ALT [Catalytic activity/Vol] 19 U/L Normal 10-54 [facility] Comment on above: Order Comment: Speci men Type: BLOOD SPECIMENOrdering Facility: [facility] Address: [address] [place] [address] Performed By: #### 2 4323-8, 03202-3, LIPNF, 6-4 ####[facility] LABCLIA [id number] [place] [address] [place] Anion gap [Moles/Vol] 15 mmol/L Normal 8-15 [facility] Comment on above: Order Comment: Speci men Type: BLOOD SPECIMENOrdering Facility: [facility] Address: [address] [place] [address] Performed By: #### 2 4323-8, 63271-0, LIPNF, 6-4 ####[facility] LABCLIA [id number] [place] [address] [place] AST [Catalytic activity/Vol] 19 U/L Normal 14-40 [facility] Comment on above: Order Comment: Speci men Type: BLOOD SPECIMENOrdering Facility: [facility] Address: [address] [place] [address] Performed By: #### 2 4323-8, 60822-1, LIPNF, 6-4 ####[facility] LABCLIA [id number] [place] [address] [place] Bilirubin [Mass/Vol] 0.7 mg/dL Normal 0.2-1.3 [facility] Comment on above: Order Comment: Speci men Type: BLOOD SPECIMENOrdering Facility: [facility] Address: [address] [place] [address] Performed By: #### 2 4323-8, 52030-0, LIPNF, 6-4 ####[facility] LABCLIA [id number] [place] [id number] [place] Calcium [Mass/Vol] 9.2 mg/dL Normal 8.5-10.2 [facility] Comment on above: Order Comment: Speci men Type: BLOOD SPECIMENOrdering Facility: [facility] Address: [address] [place] [address] Performed By: #### 2 4323-8, 43259-2, LIPNF, 6-4 ####[facility] LABCLIA [id number] [place] [address] [place] Chloride [Moles/Vol] 102 mmol/L Normal 98-107 [facility] Comment on above: Order Comment: Speci men Type: BLOOD SPECIMENOrdering Facility: [facility] Address: [address] [place] [address] Performed By: #### 2 4323-8, 38684-9, LIPNF, 2275-4 ####[facility] LABCLIA [id number] [place] [address] [place] CO2 [Moles/Vol] 23 mmol/L Normal 22-30 [facility] Comment on above: Order Comment: Speci men Type: BLOOD SPECIMENOrdering Facility: [facility] Address: [address] [place] [address] Performed By: #### 2 4323-8, 89857-9, LIPNF, 6-4 ####[facility] LABCLIA [id number] [place] [address] [place] Creatinine [Mass/Vol] 1.42 mg/dL High 0.73-1.22 [facility] Comment on above: Order Comment: Speci men Type: BLOOD SPECIMENOrdering Facility: [facility] Address: [address] [place] [address] Performed By: #### 2 4323-8, 70375-3, LIPNF, 2276-4 ####[facility] LABIA [id number] [place] [address] [place] Creatinine and Glomerular filtration rate.predicted panel (S/P/Bld) 54 mL/min/1.73m??? Low >=60 [facility] Comment on above: Order Comment: Lynn de guzman Type: BLOOD SPECIMENOrdering Facility: [facility] Address: [address] [place] [address] Result Comment: Tatiana mated Glomerular Filtration Rate (eGFR) is calculated using the 2020 CKD-EPI creatinine equation. This equation utilizes serum creatinine, sex, and age as parameters. The creatinine assay has traceable calibration to isotope dilution-mass spectrometry. Refer to KDIGO guidelines for clinical interpretation. In patients with unstable renal function, e.g. those with acute kidney injury, the eGFR may not accurately reflect actual GFR. Performed By: #### 2 4323-8, 31258-8, LIPNF, 2276-4 ####[facility] LABCLIA [id number] [place] [id number] [place] Glucose [Mass/Vol] 86 mg/dL Normal 74-99 [facility] Comment on above: Order Comment: Lynn de guzman Type: BLOOD SPECIMENOrdering Facility: [facility] Address: [address] [place] [address] Result Comment: The [place] [employer] (ADA) provides guidance for cutoff values for fasting glucose and random glucose. The ADA defines fasting as no caloric intake for at least 8 hours. Fasting plasma glucose results between 100 to 125 mg/dL indicate increased risk for diabetes (prediabetes). Fasting plasma glucose results greater than or equal to 126 mg/dL meet the criteria for diagnosis of diabetes. In the absence of unequivocal hyperglycemia, results should be confirmed by repeat testing. In a patient with classic symptoms of hyperglycemia or hyperglycemic crisis, random plasma glucose results greater than or equal to 200 mg/dL meet the criteria for diagnosis of diabetes. Reference: Standards of Medical Care in Diabetes 2016, [place] [employer]. Diabetes Care. 2016.39(Suppl 1). Performed By: #### 2 4323-8, 28458-2, LIPNF, 6-4 ####[facility] LABCLIA [id number] [place] [address] [place] Potassium [Moles/Vol] 4.2 mmol/L Normal 3.7-5.1 [facility] Comment on above: Order Comment: Speci men Type: BLOOD SPECIMENOrdering Facility: [facility] Address: [address] [place] [address] Performed By: #### 2 4323-8, 97951-8, LIPNF, 2275-4 ####[facility] LABCLIA [id number] [place] [address] [place] Protein [Mass/Vol] 7.1 g/dL Normal 6.3-8.0 [facility] Comment on above: Order Comment: Speci men Type: BLOOD SPECIMENOrdering Facility: [facility] Address: [address] [place] [address] Performed By: #### 2 4323-8, 05234-2, LIPNF, 2275-4 ####[facility] [facility]CL[facility] [id number] [place] [address] [place] Sodium [Moles/Vol] 140 mmol/L Normal 136-144 [facility] Comment on above: Order Comment: Speci men Type: BLOOD SPECIMENOrdering Facility: [facility] Address: [address] [place] [address] Performed By: #### 2 4323-8, 75510-4, LIPNF, 2275-4 ####[facility] LABCLIA [id number] [place] [address] [place] Urea nitrogen [Mass/Vol] 22 mg/dL Normal 9-24 [facility] Comment on above: Order Comment: Speci men Type: BLOOD SPECIMENOrdering Facility: [facility] Address: [address] [place] [address] Performed By: #### 2 4323-8, 52585-9, LIPNF, 2276-4 ####[facility] LABCLIA [id number] [place] [address] [place] Ferritin SerPl-mCncon 2024 Ferritin [Mass/Vol] 142.0 ng/mL Normal 30.3-565.7 [facility] Comment on above: Order Comment: Speci men Type: BLOOD SPECIMENOrdering Facility: [facility] Address: [address] [place] [address] Performed By: #### 2 4323-8, 35298-5, LIPNF, 2276-4 ####[facility] LABCLIA [id number] [place] [address] [place] HbA1c (Bld)on 06-22-2024 Average glucose Estimated from glycated hemoglobin (Bld) [Mass/Vol] 126 mg/dL Normal [facility] Comment on above: Order Comment: Speci men Type: BLOOD SPECIMENOrdering Facility: [facility] Address: [address] [place] [address] Result Comment: eAG: (Estimated average glucose) is a calculated value from HgbA1c and is electronics parts sales representative of the average blood glucose level in the last 2-3 month period. Performed By: #### 5 5454-3 ####[facility] LABIA [id number] [place] [address] [place] HbA1c (Bld) [Mass fraction] 6.0 % High 4.3-5.6 [facility] Comment on above: Order Comment: Speci men Type: BLOOD SPECIMENOrdering Facility: [facility] Address: [address] [place] [address] Result Comment: Amer ican Diabetes Association guidelines indicate that patients with HgbA1c in the range 5.7-6.4% are at increased risk for development of diabetes, and intervention by lifestyle modification may be beneficial. HgbA1c greater or equal to 6.5% is considered diagnostic of diabetes. Performed By: #### 5 5454-3 ####[facility] LABIA [id number] [place] [id number] [place] Iron and Iron binding capaci ty panelon 06-22-2024 Iron [Mass/Vol] 76 ug/dL Normal 41-186 [facility] Comment on above: Order Comment: Speci men Type: BLOOD SPECIMENOrdering Facility: [facility] Address: [address] [place] [address] Performed By: #### 2 4323-8, 83187-6, LIPNF, 2276-4 ####[facility] LABIA [id number] [address] [place] Iron binding capacity [Mass/Vol] 345 ug/dL Normal 232-386 [facility] Comment on above: Order Comment: Speci men Type: BLOOD SPECIMENOrdering Facility: [facility] Address: [address] [place] [address] Performed By: #### 2 4323-8, 89804-1, LIPNF, 2276-4 ####[facility] LABIA [id number] [place] [address] [place] Iron/TIBC [Molar ratio] 22.0 % Normal 15.0-57.0 [facility] Comment on above: Order Comment: Speci men Type: BLOOD SPECIMENOrdering Facility: [facility] Address: [address] [place] [address] Performed By: #### 2 4323-8, 32978-5, LIPNF, 2276-4 ####[facility] LABIA [id number] [place] [address] [place] LIPID PANEL, NONFASTINGon Cholesterol [Mass/Vol] 149 mg/dL Normal <200 [facility] Comment on above: Order Comment: Speci men Type: BLOOD SPECIMENOrdering Facility: [facility] Address: [address], [place] [address] Result Comment: <200 mg/dL, Desirable 200-239 mg/dL, Borderline high >239 mg/dL, High Performed By: #### 2 4323-8, 69049-2, LIPNF, 2276-4 ####[facility] LABCLIA [id number] [place] [address] [place] HDL CHOLESTEROL, NF 41 mg/dL Normal >39 [facility] Comment on above: Order Comment: Speci men Type: BLOOD SPECIMENOrdering Facility: [facility] Address: [address] [place] [address] Result Comment: 40-5 9 mg/dL, Acceptable >59 mg/dL, High: Negative risk factor for coronary heart disease <40 mg/dL, Low: Positive risk factor for coronary heart disease Performed By: #### 2 4323-8, 89797-2, LIPNF, 6-4 ####[facility] LABCLIA [id number] [place] [address] [place] LDL CHOLESTEROL, NF 88 mg/dL Normal <100 [facility] Comment on above: Order Comment: Speci men Type: BLOOD SPECIMENOrdering Facility: [facility] Address: [address] [place] [address] Result Comment: <100 mg/dL, Optimal 100-129 mg/dL, Near optimal/above optimal 130-159 mg/dL, Borderline high 160-189 mg/dL, High >189 mg/dL, Very high Secondary prevention optimal LDL Cholesterol levels are recommended to be < 70 mg/dL Performed By: #### 2 4323-8, 27811-1, LIPNF, 2276-4 ####[facility] LABCLIA [id number] [place] [address] [place] LDL/HDL RATIO, NF 2.15 mg/dL Normal <2.54 [facility] Comment on above: Order Comment: Speci men Type: BLOOD SPECIMENOrdering Facility: [facility] Address: [address] [place] [address] Result Comment: Refkirill mancini: 1. National Cholesterol Education Program ATP III Guideline At-A-Glance Quick Desk Reference: National Heart, Lung, and Blood [place]. National Institutes of Health. 2001: NIH Publication No. 01-3305. 2. An International Atherosclerosis Society position paper: global recommendations for the management of dyslipidemia: executive summary, Atherosclerosis. 2014: 232(2):410-413. Performed By: #### 2 4323-8, 81681-5, LIPNF, 2276-4 ####[facility] LABCLIA [id number] [place] [address] [place] NON HDL CHOL, NF 108 mg/dL Normal <130 [facility] Comment on above: Order Comment: Speci men Type: BLOOD SPECIMENOrdering Facility: [facility] Address: [address] [place] [address] Result Comment: <130 mg/dL, Optimal 130-159 mg/dL, Near optimal/above optimal 160-189 mg/dL, Borderline high 190-219 mg/dL, High >219 mg/dL, Very high Secondary prevention optimal non HDL Cholesterol levels are recommended to be <100 mg/dL Performed By: #### 2 4323-8, 50279-6, LIPNF, 6-4 ####[facility] LABCLIA [id number] [place] [address] [place] T CHOL/HDL RATIO NF 3.63 mg/dL Normal <5.10 [facility] Comment on above: Order Comment: Speci men Type: BLOOD SPECIMENOrdering Facility: [facility] Address: [address] [place] [address] Performed By: #### 2 4323-8, 83698-4, LIPNF, 2276-4 ####[facility] LABCLIA [id number] [place] [address] [place] TRIGLYCERIDES, NF 99 mg/dL Normal <150 [facility] Comment on above: Order Comment: Speci men Type: BLOOD SPECIMENOrdering Facility: [facility] Address: [address] [place] [address] Result Comment: <150 mg/dL, Normal 150-199 mg/dL, Borderline high 200-499 mg/dL, High >499 mg/dL, Very high Performed By: #### 2 4323-8, 26787-6, LIPNF, 2276-4 ####[facility] LABCLIA [id number] [place] [address] [place] VLDL CHOLESTEROL, NF 20 mg/dL Normal <30 [facility] Comment on above: Order Comment: Speci men Type: BLOOD SPECIMENOrdering Facility: [facility] Address: [address] [place] [address] Performed By: #### 2 4323-8, 93350-8, LIPNF, 2276-4 ####[facility] LABCLIA [id number] [place] [address] [place] Magnesium SerPl-mCncon 06-22 Magnesium [Mass/Vol] 2.2 mg/dL Normal 1.7-2.3 [facility] Comment on above: Order Comment: Speci men Type: BLOOD SPECIMENOrdering Facility: [facility] Address: [address] [place] [address] Performed By: #### 1 9123-9 ####[facility] LABIA [id number] [place] [address] [place] URINALYSIS, REFLEX MICROSCOP ICon 06-22-2024 Bacteria LM.HPF (Urine sed) [#/Area] Negative Negative /HPF [facility] Bilirubin Ql (U) Negative Negative [facility] Clarity (Unsp spec) Clear Clear [facility] Color (U) Yellow Yellow [facility] Epithelial cells LM.HPF (Urine sed) [#/Area] None Seen /HPF [facility] Glucose Test strip (U) [Mass/Vol] Negative Negative [facility] Hemoglobin Ql (U) Negative Negative [facility] Hyaline casts (Urine sed) [#/Area] 4-10 /LPF Abnormal 0 /LPF [facility] Interpretation and review of laboratory results Abnormal [facility] Ketones Ql (U) Negative Negative [facility] Leukocyte esterase Test strip Ql (U) Negative Negative [facility] Nitrite Ql (U) Negative Negative [facility] pH (U) 6.0 [pH] NINF - 8.5 [facility] Protein (U) [Mass/Vol] 2+ Abnormal Negative [facility] RBC LM.HPF (Urine sed) [#/Area] 0-2 /HPF 0-2 /HPF [facility] Specific gravity (U) [Rel density] 1.012 1.005 - 1.030 [facility] Urobilinogen Ql (U) 0.2 EU/dL 0.2-1.0 EU/dL [facility] WBC LM.HPF (Urine sed) [#/Area] 0-5 /HPF 0-5 /HPF [facility] This test was developed and its performance characteristics determined by [facility] Pathology and Laboratory Medicine [place] ([facility]). It has not been cleared or approved by the FDA. [facility] is regulated under CLIA as qualified to perform high-complexity testing. This test is used for clinical purposes. It should not be regarded as investigational or for research. [facility] Bacteria LM.HPF (Urine sed) [#/Area] Negative Normal Negative [facility] Comment on above: Order Comment: Speci men Type: URINE SPECIMENOrdering Facility: [facility] Address: [address] [place] [address] Performed By: #### L [id number] ####[facility] [id number] [place] [address] [place] Bilirubin Ql (U) Negative Normal Negative [facility] Comment on above: Order Comment: Speci men Type: URINE SPECIMENOrdering Facility: [facility] Address: [address] [place] [address] Performed By: #### L [id number] ####[facility] LABIA [id number] [place] [address] [place] Clarity (Unsp spec) Clear Normal Clear [facility] Comment on above: Order Comment: Speci men Type: URINE SPECIMENOrdering Facility: [facility] Address: [address] [place], [place] [address] Performed By: #### L [id number] ####[facility] LABCLIA [id number] [place] [address] [place] Color (U) Yellow Normal Yellow [facility] Comment on above: Order Comment: Speci men Type: URINE SPECIMENOrdering Facility: [facility] Address: [address] [place] [address] Performed By: #### L [id number] ####[facility] LABCLIA [id number] [place] [address] [place] Epithelial cells LM.HPF (Urine sed) [#/Area] None Seen Normal [facility] Comment on above: Order Comment: Speci men Type: URINE SPECIMENOrdering Facility: [facility] Address: [address] [place] [address] Performed By: #### L [id number] ####[facility] LABCLIA [id number] [place] [address] [place] Glucose Test strip (U) [Mass/Vol] Negative Normal Negative [facility] Comment on above: Order Comment: Speci men Type: URINE SPECIMENOrdering Facility: [facility] Address: [address] [place] [address] Performed By: #### L [id number] ####[facility] LABCLIA [id number] [place] [address] [place] Hemoglobin Ql (U) Negative Normal Negative [facility] Comment on above: Order Comment: Speci men Type: URINE SPECIMENOrdering Facility: [facility] Address: [address] [place] [address] Performed By: #### L [id number] ####[facility] LABCLIA [id number] [place] [address] [place] Hyaline casts (Urine sed) [#/Area] 4-10 /LPF Abnormal 0 /LPF [facility] Comment on above: Order Comment: Speci men Type: URINE SPECIMENOrdering Facility: [facility] Address: [address] [place] [address] Performed By: #### L [id number] ####[facility] LABCLIA [id number] [place] [address] [place] Ketones Ql (U) Negative Normal Negative [facility] Comment on above: Order Comment: Speci men Type: URINE SPECIMENOrdering Facility: [facility] Address: [address] [place] [address] Performed By: #### L [id number] ####[facility] LABCLIA [id number] [place] [address] [place] Leukocyte esterase Test strip Ql (U) Negative Normal Negative [facility] Comment on above: Order Comment: Speci men Type: URINE SPECIMENOrdering Facility: [facility] Address: [address] [place] [address] Performed By: #### L [id number] ####[facility] LABCLIA [id number] [place] [address] [place] Nitrite Ql (U) Negative Normal Negative [facility] Comment on above: Order Comment: Speci men Type: URINE SPECIMENOrdering Facility: [facility] Address: [address] [place] [address] Performed By: #### L [id number] ####[facility] LABCLIA [id number] [place] [address] [place] pH (U) 6.0 [pH] Normal <8.5 [facility] Comment on above: Order Comment: Speci men Type: URINE SPECIMENOrdering Facility: [facility] Address: [address] [place] [address] Performed By: #### L [id number] ####[facility] LABIA [id number] [place] [address] [place] Protein (U) [Mass/Vol] 2+ Abnormal Negative [facility] Comment on above: Order Comment: Speci men Type: URINE SPECIMENOrdering Facility: [facility] Address: [address] [place] [address] Performed By: #### L [id number] ####[facility] LABIA [id number] [place] [address] [place] RBC LM.HPF (Urine sed) [#/Area] 0-2 /HPF Normal 0-2 /HPF [facility] Comment on above: Order Comment: Speci men Type: URINE SPECIMENOrdering Facility: [facility] Address: [address] [place] [address] Performed By: #### L [id number] ####[facility] [id number] [place] [address] [place] Specific gravity (U) [Rel density] 1.012 Normal 1.005-1.030 [facility] Comment on above: Order Comment: Speci men Type: URINE SPECIMENOrdering Facility: [facility] Address: [address] [place] [address] Performed By: #### L [id number] ####[facility] [id number] [place] [address] [place] Urobilinogen Ql (U) 0.2 EU/dL Normal 0.2-1.0 EU/dL [facility] Comment on above: Order Comment: Speci men Type: URINE SPECIMENOrdering Facility: [facility] Address: [address] [place] [address] Performed By: #### L [id number] ####[facility] LABIA [id number] [place] [address] [place] WBC LM.HPF (Urine sed) [#/Area] 0-5 /HPF Normal 0-5 /HPF [facility] Comment on above: Order Comment: Speci men Type: URINE SPECIMENOrdering Facility: [facility] Address: [address] [place] [address] Performed By: #### L [id number] ####[facility] LABCLIA [id number] [facility] [place] [address] [place] XR LUMBAR 3V AP/LAT/L5-S1on 06-22-2024 XR LUMBAR 3V AP/LAT/L5-S1 * * *Final Report* * * DATE OF EXAM: Jun 22 2024 2:52PM WOX 5228 - XR LUMBAR 3V AP/LAT/L5-S1 / PROCEDURE REASON: Fall, initial encounter * * * * Physician Interpretation * * * * EXAM TITLE: XR LUMBAR 3V AP/LAT/L5-S1 EXAM DATE/TIME: 06/22/2024 2:52 PM COMPARISON: None. CLINICAL INDICATION/HISTORY: Fall. TECHNIQUE: AP, lateral and cone down lateral views of the lumbar spine are presented. FINDINGS: There are five phq-pkw-mrgnztz lumbar vertebrae. L1 vertebral body compression deformity/age indeterminate fracture is demonstrated, involving the superior endplate.. Questionable L2-3 mild disc space narrowing. There is moderate osteophyte formation, with facet arthrosis in the lower lumbar spine. Kissing spine seen on lateral view. Others: There are vascular calcifications. IMPRESSION L1 vertebral body compression deformity/age indeterminate fracture. Lumbar spine degenerative changes as described above. Contour Grinder: [facility] Transcribe Date/Time: Jun 22 2024 2:54P Dictated by : BRIAN WILKINSON MD This examination was interpreted and the report reviewed and electronically signed by: BRIAN WILKINSON MD on Jun 22 2024 2:55PM EST [id number] Normal [facility] XR Lumbar spine 3 Viewson * * *Final Report* * * DATE OF EXAM: Jun 22 2024 2:52PM WOX [id number] - XR LUMBAR 3V AP/LAT/L5-S1 / PROCEDURE REASON: Fall, initial encounter * * * * Physician Interpretation * * * * EXAM TITLE: XR LUMBAR 3V AP/LAT/L5-S1 EXAM DATE/TIME: 06/22/2024 2:52 PM COMPARISON: None. CLINICAL INDICATION/HISTORY: Fall. TECHNIQUE: AP, lateral and cone down lateral views of the lumbar spine are presented. FINDINGS: There are five jzk-tnn-lolhekr lumbar vertebrae. L1 vertebral body compression deformity/age indeterminate fracture is demonstrated, involving the superior endplate.. Questionable L2-3 mild disc space narrowing. There is moderate osteophyte formation, with facet arthrosis in the lower lumbar spine. Kissing spine seen on lateral view. Others: There are vascular calcifications. IMPRESSION L1 vertebral body compression deformity/age indeterminate fracture. Lumbar spine degenerative changes as described above. Contour Grinder: [facility] Transcribe Date/Time: Jun 22 2024 2:54P Dictated by : BRIAN WILKINSON MD This examination was interpreted and the report reviewed and electronically signed by: BRIAN WILKINSON MD on Jun 22 2024 2:55PM EST DIVISION OF RADIOLOGY Provider, [facility] - 06/22/2024 * * *Final Report* * * DATE OF EXAM: Jun 22 2024 2:52PM WOX 5228 - XR LUMBAR 3V AP/LAT/L5-S1 / PROCEDURE REASON: Fall, initial encounter * * * * Physician Interpretation * * * * EXAM TITLE: XR LUMBAR 3V AP/LAT/L5-S1 EXAM DATE/TIME: 06/22/2024 2:52 PM COMPARISON: None. CLINICAL INDICATION/HISTORY: Fall. TECHNIQUE: AP, lateral and cone down lateral views of the lumbar spine are presented. FINDINGS: There are five fzk-hix-ldnhmhp lumbar vertebrae. L1 vertebral body compression deformity/age indeterminate fracture is demonstrated, involving the superior endplate.. Questionable L2-3 mild disc space narrowing. There is moderate osteophyte formation, with facet arthrosis in the lower lumbar spine. Kissing spine seen on lateral view. Others: There are vascular calcifications. IMPRESSION L1 vertebral body compression deformity/age indeterminate fracture. Lumbar spine degenerative changes as described above. Contour Grinder: [facility] Transcribe Date/Time: Jun 22 2024 2:54P Dictated by : BRIAN WILKINSON MD This examination was interpreted and the report reviewed and electronically signed by: BRIAN WILKINSON MD on Jun 22 2024 2:55PM EST [facility] Radiology Study observation (narrative) Kaitlin belle [facility] XR Lumbar spine 3 ViewsOrder ed By: [facility] Provider on 06-22-2024 [facility] 06-16-2024 CNPN Telephone (FAMPWS) GIOVANAREINA ([id number]) 1955 M Date Time Provider Department 06/16/24 ARIC ZAPIEN During your visit today, we recorded the following information about you: Aric Zapien MD 06/16/2024 8:48 AM Signed Schedule to see me at [facility] in person on 06/21/24. Please make sure they are aware appt they scheduled is at that office and not Aric Reddy MD 06/19/2024 10:50 AM Signed Please call before (I suspect was put in wrong place) Felicita Bolden MA 06/19/2024 11:21 AM Signed Please call pt and ask if pt knows he is scheduled at [facility] Florinda Stevenson, W[employer].OUTSIDE PROPERTY AGENT 06/22/2024 3:37 PM Signed Please let patient know that he has a lumbar 1 compression fracture of the endplate. I am going to send him to a spine surgeon to review. Please facilitate primaryscheduling Felicita Bolden MA 06/22/2024 4:29 PM Signed Patient notified of results and transferred to care team coordinator scheduler Mecca Summers 06/22/2024 4:43 PM Signed Mel BRYANT unauthorized to schedule for this department. Patient notified that JARRETT routed referral to the appropriate department and their facility will contact patient for scheduling. Patient requests all future medical information and appointment scheduling be disclosed to ex-spouse, Flor Sullivan, only. Mecca Summers 06/25/2024 10:57 AM Signed Please contact patient to assist with scheduling consultation with [facility] orthopaedic hse specialist per 06/22/24 telephone encounter. Allergies As of Date: 06/16/2024 Noted Allergy Reaction DYE 03/02/2016 14 - Other: See Comments Comments: used for heart cath Date Reviewed: 11/22/2023 Reviewed by: Florinda Flores LPN - Fully Assessed Reason for Visit: Patient Update [1234] Primary Visit Diagnosis:Compression fracture of L1 vertebra, initial encounter ([facility]) [S32.010A] Order(s):[facility] [[id number]] Order #: [id number]: 1 Prescriptions as of 06/25/2024 - lisinopril 2.5 mg tablet Take 1 tablet by mouth once daily. For kidneys - methocarbamol (ROBAXIN) 500 mg tablet Take 1 tablet by mouth three times a day. - divalproex DR (DEPAKOTE) 500 mg EC tablet Take 1 tablet by mouth two times a day. - metFORMIN ER (GLUCOPHAGE XR) 500 mg 24 hr tablet Take 1 tablet by mouth daily with breakfast. - metoprolol succinate ER (TOPROL XL) 50 mg 24 hr tablet Take 1 tablet by mouth once daily. - furosemide (LASIX) 40 mg tablet Take 1 tablet by mouth once daily. - Lancets lancets Test blood sugar(s) 1 times daily. Dx: Type 2 DM - Uncontrolled E11.65 Insulin: No - blood sugar diagnostic (BLOOD GLUCOSE TEST) test strip Test blood sugar(s) 1 times daily. Dx: Type 2 DM - Uncontrolled E11.65 Insulin: No - apixaban (ELIQUIS) 5 mg tab tab(s) Take 1 tablet by mouth twice daily. Problem List As Of Date 06/16/2024 Noted Resolved 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 (HCC) [I48.21] HTN (hypertension) [I10] Hyperlipidemia [E78.5] Seizures (HCC) [R56.9] Hyperglycemia [R73.9] 03/23/2017 03/26/2021 Primary pulmonary HTN (HCC) [I27.0] 07/26/2017 Mitral regurgitation [I34.0] 07/26/2017 Non-rheumatic tricuspid valve insufficiency [I3*07/26/2017 Enlarged thoracic aorta (HCC) [I77.89] 07/26/2017 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 status epilepticus*06/27/2020 03/25/2021 Type 2 diabetes mellitus without complication, *03/26/2021 Encounter for hepatitis C screening test for lo*03/09/2022 09/30/2022 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/09/2022 Adjustment disorder with mixed emotional featur*09/30/2022 Allergy [T78.40XA] 09/30/2022 Anxiety state [F41.1] 09/30/2022 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 Encounter for issue of repeat prescription [Z76*09/30/2022 09/30/2022 Fracture of skull (HCC) [S02.91XA] 09/30/2022 09/30/2022 Headache [R51.9] 09/30/2022 09/30/2022 High serum creatinine [R79.89] 09/30/2022 09/30/2022 Intracranial injury of other and unspecified na*09/30/2022 Left atrial enlargement [I51.7] 09/30/2022 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 *09/30/2022 Migraine headache [G43.909] 09/30/2022 Need for Streptococcus pneumoniae vaccination [*09/30/2022 Neoplasm of uncertain behavior of skin [D48.5] 09/30/2022 Noncompliance with treatment [Z91.199] 09/30/2022 Other polyp of sinus [J33.8] 09/30/2022 Pulmonary hypertension (HCC) [I27.20] 09/30/2022 Syncope and collapse [R55] 09/30/2022 09/30/2022 Undiagnosed cardiac murmurs [R01.1] 09/30/2022 09/30/2022 History of skull fracture [Z87.81] 09/30/2022 Encounter Status:Closed by FELICITA BOLDEN on 06/22/24 [facility] 03-21-2024 KVNGN Telephone (ENDOSO) REINA SULLIVAN ([id number]) 1955 M Date Time Provider Department 03/21/24 LU FISH During your visit today, we recorded the following information about you: Vanna Flores 03/21/2024 3:31 PM Signed [place] states that their records show patient has diabetes but does not take statins. AMA recommend that patient take a statin to reduce cardiovascular risk. Merline Jimenez RN 03/22/2024 2:44 PM Signed Patient does not see endocrinology. Will route to PCP office to make them aware. Merline Jimenez RN March 22, 2024 2:44 PM Allergies As of Date: 03/21/2024 Noted Allergy Reaction DYE 03/02/2016 14 - Other: See Comments Comments: used for heart cath Date Reviewed: 11/22/2023 Reviewed by: Florinda Flores LPN - Fully Assessed Prescriptions as of 03/23/2024 - divalproex DR (DEPAKOTE) 500 mg EC tablet Take 1 tablet by mouth two times a day. - metFORMIN ER (GLUCOPHAGE XR) 500 mg 24 hr tablet Take 1 tablet by mouth daily with breakfast. - metoprolol succinate ER (TOPROL XL) 50 mg 24 hr tablet Take 1 tablet by mouth once daily. - furosemide (LASIX) 40 mg tablet Take 1 tablet by mouth once daily. - Lancets lancets Test blood sugar(s) 1 times daily. Dx: Type 2 DM - Uncontrolled E11.65 Insulin: No - blood sugar diagnostic (BLOOD GLUCOSE TEST) test strip Test blood sugar(s) 1 times daily. Dx: Type 2 DM - Uncontrolled E11.65 Insulin: No - apixaban (ELIQUIS) 5 mg tab tab(s) Take 1 tablet by mouth twice daily. Problem List As Of Date 03/21/2024 Noted Resolved 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 (HCC) [I48.21] HTN (hypertension) [I10] Hyperlipidemia [E78.5] Seizures (HCC) [R56.9] Hyperglycemia [R73.9] 03/23/2017 03/26/2021 Primary pulmonary HTN (HCC) [I27.0] 07/26/2017 Mitral regurgitation [I34.0] 07/26/2017 Non-rheumatic tricuspid valve insufficiency [I3*07/26/2017 Enlarged thoracic aorta (HCC) [I77.89] 07/26/2017 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 status epilepticus*06/27/2020 03/25/2021 Type 2 diabetes mellitus without complication, *03/26/2021 Encounter for hepatitis C screening test for lo*03/09/2022 09/30/2022 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/09/2022 Adjustment disorder with mixed emotional featur*09/30/2022 Allergy [T78.40XA] 09/30/2022 Anxiety state [F41.1] 09/30/2022 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 Encounter for issue of repeat prescription [Z76*09/30/2022 09/30/2022 Fracture of skull (HCC) [S02.91XA] 09/30/2022 09/30/2022 Headache [R51.9] 09/30/2022 09/30/2022 High serum creatinine [R79.89] 09/30/2022 09/30/2022 Intracranial injury of other and unspecified na*09/30/2022 Left atrial enlargement [I51.7] 09/30/2022 longterm current use of 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 *09/30/2022 Migraine headache [G43.909] 09/30/2022 Need for Streptococcus pneumoniae vaccination [*09/30/2022 Neoplasm of uncertain behavior of skin [D48.5] 09/30/2022 Noncompliance with treatment [Z91.199] 09/30/2022 Other polyp of sinus [J33.8] 09/30/2022 Pulmonary hypertension (HCC) [I27.20] 09/30/2022 Syncope and collapse [R55] 09/30/2022 09/30/2022 Undiagnosed cardiac murmurs [R01.1] 09/30/2022 09/30/2022 History of skull fracture [Z87.81] 09/30/2022 Encounter Status:Closed by VANNA FLORES on 03/23/24 Normal [facility] CNCOon 11-24-2023 CNCO Letter Text Normal [facility] CNPNon 11-24-2023 CNPN Telephone (SOPHIERosa) REINA SULLIVAN ([id number]) 1955 M Date Time Provider Department 11/24/23 HARVEY HAZEL During your visit today, we recorded the following information about you: Harvey Hazel, GRANULATING MACHINE OPERATOR 11/24/2023 1:04 PM Signed Nikkie called and spoke with Halima, patient ex in regards to service assistance options in the community. Halima notes that she helps patient " to a certain extent." Halima and Nikkie spoke about [facility] Older Adult Resource Directory. Halima asks that Sw mail patient this guide for him to review and see what services are available in the community. Sw will also attach Community [employer] Older Adult support program and [facility] information. Allergies As of Date: 11/24/2023 Noted Allergy Reaction DYE 03/02/2016 14 - Other: See Comments Comments: used for heart cath Date Reviewed: 11/22/2023 Reviewed by: Florinda Flores LPN - Fully Assessed Prescriptions as of 11/24/2023 - divalproex DR (DEPAKOTE) 500 mg EC tablet Take 1 tablet by mouth two times a day. - metFORMIN ER (GLUCOPHAGE XR) 500 mg 24 hr tablet Take 1 tablet by mouth daily with breakfast. - metoprolol succinate ER (TOPROL XL) 50 mg 24 hr tablet Take 1 tablet by mouth once daily. - furosemide (LASIX) 40 mg tablet Take 1 tablet by mouth once daily. - Lancets lancets Test blood sugar(s) 1 times daily. Dx: Type 2 DM - Uncontrolled E11.65 Insulin: No - blood sugar diagnostic (BLOOD GLUCOSE TEST) test strip Test blood sugar(s) 1 times daily. Dx: Type 2 DM - Uncontrolled E11.65 Insulin: No - apixaban (ELIQUIS) 5 mg tab tab(s) Take 1 tablet by mouth twice daily. Problem List As Of Date 11/24/2023 Noted Resolved 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 (HCC) [I48.21] HTN (hypertension) [I10] Hyperlipidemia [E78.5] Seizures (HCC) [R56.9] Hyperglycemia [R73.9] 03/23/2017 03/26/2021 Primary pulmonary HTN (HCC) [I27.0] 07/26/2017 Mitral regurgitation [I34.0] 07/26/2017 Non-rheumatic tricuspid valve insufficiency [I3*07/26/2017 Enlarged thoracic aorta (HCC) [I77.89] 07/26/2017 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 status epilepticus*06/27/2020 03/25/2021 Type 2 diabetes mellitus without complication, *03/26/2021 Encounter for hepatitis C screening test for lo*03/09/2022 09/30/2022 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/09/2022 Adjustment disorder with mixed emotional featur*09/30/2022 Allergy [T78.40XA] 09/30/2022 Anxiety state [F41.1] 09/30/2022 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 Encounter for issue of repeat prescription [Z76*09/30/2022 09/30/2022 Fracture of skull (HCC) [S02.91XA] 09/30/2022 09/30/2022 Headache [R51.9] 09/30/2022 09/30/2022 High serum creatinine [R79.89] 09/30/2022 09/30/2022 Intracranial injury of other and unspecified na*09/30/2022 Left atrial enlargement [I51.7] 09/30/2022 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 *09/30/2022 Migraine headache [G43.909] 09/30/2022 Need for Streptococcus pneumoniae vaccination [*09/30/2022 Neoplasm of uncertain behavior of skin [D48.5] 09/30/2022 Noncompliance with treatment [Z91.199] 09/30/2022 Other polyp of sinus [J33.8] 09/30/2022 Pulmonary hypertension (HCC) [I27.20] 09/30/2022 Syncope and collapse [R55] 09/30/2022 09/30/2022 Undiagnosed cardiac murmurs [R01.1] 09/30/2022 09/30/2022 History of skull fracture [Z87.81] 09/30/2022 Encounter Status:Closed by HARVEY HAZEL on 11/24/23 Normal [facility] CNOVon 11-22-2023 CNOV Office Visit (FAMPWS ) GIOVANAREINA ([id number]) 1955 M Date Time Provider Department 11/22/23 3:40 PM [facility] During your visit today, we recorded the following information about you: Pulse Respiration Blood pressure Weight 85/minute 15/minute 128/80 102.5 kg Jaison Max PA-C 11/28/2023 9:49 AM Signed 68 year old male with c/o 6-month follow-up Last visit Dr. 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 Aric Huston Current medications: Apixaban 5 mg twice daily Divalproex DR 500 mg 1 tablet twice daily No seizures. 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 Non-rheumatic tricuspid valve insufficiency Mitral valve insufficiency, unspecified etiology Left atrial enlargement Enlarged thoracic aorta (hcc) Primary pulmonary htn (hcc) Primary hypertension Mixed hyperlipidemia Cardiovascular interval hx: Last cardiology visit 08/04/2023 with BONI HarryC: Stable from a cardiac standpoint 10/14/2022 ECG: Atrial fibrillation with rapid ventricular response, nonspecific ST abnormality 11/19/2020 ED visit SOB with negative work up with normal EKG, CXR, troponins, routine lab 10/20/2022 EKG atrial fibrillation with rapid ventricular response, nonspecific ST abnormality 07/14/[address] James: stable AF, no concerns 09/08/2015 Mel Dewitt: cardiac cath: no disease 09/08/2015 cardiac catheterization [facility] Dr. James: - primary rhythm atrial fibrillation ventricular rate 42 bpm -Left main angiographically normal, bifurcation into left anterior descending and left circumflex artery, no high-grade stenosis. -LAD: Medium to large sized vessel giving off proximal diagonal branch angiographically free of disease. Second branch noted which not had any significant stenosis. Third branch also noted without stenosis. -Left circumflex artery: First obtuse marginal, second obtuse marginal with trifurcation, no significant stenosis in these vessels. -RCA dominant vessel: 2 marginal branches, posterior descending artery and posterolateral vessel: No significant stenosis noted. Ejection fraction 50% with 2+ mitral regurg noted. Dilated left atrium present. Current meds: Metoprolol succinate ER 50mg daily Lasix 40mg daily Eliquis 5 mg twice a day Use of NTG: No Chest pain, arm, jaw pain, neck, or upper back pain suggestive of angina: No. SOB: No Dyspnea with exertion: No orthopnea: No Cough : No racing or irregular heartbeats: No palpitations: No syncopal sx: No Headache: No Unexplainable fatigue No Leg swelling: No Nausea: No diaphoresis: No Heartburn: No Claudication: No Smoking: No Following Low cholesterol, high fiber diet? So-so If on statin: muscle aches? No If on statin: GI sx or diarrhea? No Additional history none. Lab review: 06/23/2023 external lab work [facility], Chemistry abnormals: BUN 21 Serum creatinine 1.59H, EGFR 47L AG 4L 06/23/2023 CBC abnormals: RDW 44.3, monocyte percent 11.7 otherwise within normal limits Latest Ref Rng 09/30/2022 05/24/2023 WBC 3.70 - 11.00 k/uL 6.73 8.69 RBC 4.20 - 6.00 m/uL 4.56 4.81 Hemoglobin 13.0 - 17.0 g/dL 14.2 14.7 Hematocrit 39.0 - 51.0 % 43.7 44.5 MCV 80.0 - 100.0 fL 95.8 92.5 MCH 26.0 - 34.0 pg 31.1 30.6 MCHC 30.5 - 36.0 g/dL 32.5 33.0 RDW-CV 11.5 - 15.0 % 13.6 12.7 Platelet Count 150 - 400 k/uL 246 244 MPV 9.0 - 12.7 fL 11.4 11.1 Neut% % 65.0 58.1 Abs Neut (ANC) 1.45 - 7.50 k/uL 4.37 5.05 Lymph% % 23.3 27.0 Abs Lymph 1.00 - 4.00 k/uL 1.57 2.35 [place]% % 9.8 11.3 Abs [place] <0.87 k/uL 0.66 0.98 (H) Eosin% % 1.0 2.4 Abs Eosin <0.46 k/uL 0.07 0.21 Baso% % 0.6 0.6 Abs Baso <0.11 k/uL 0.04 0.05 Immature Gran % % 0.3 0.6 IMMATURE GRANS (ABS) <0.10 k/uL <0.03 0.05 NRBC /100 WBC 0.0 0.0 Absolute nRBC <0.01 k/uL <0.01 <0.01 DTYPE Auto Auto Protein, Total 6.3 - 8.0 g/dL 6.7 7.0 Albumin 3.9 - 4.9 g/dL 4.3 4.3 Calcium 8.5 - 10.2 mg/dL 10.0 9.3 Bilirubin, Total 0.2 - 1.3 mg/dL 0.2 0.2 Alkaline Phosphatase 38 - 113 U/L 83 66 AST 14 - 40 U/L 16 21 ALT 10 - 54 U/L 14 16 Glucose 74 - 99 mg/dL 99 106 (H) BUN 9 - 24 mg/dL 20 26 (H) Creatinine 0.73 - 1.22 mg/dL 1.22 1.35 (H) Sodium 136 - 144 mmol/L 141 141 Potassium 3.7 - 5.1 mmol/L 4.2 4.1 Chloride 97 - 105 mmol/L 105 103 CO2 22 - 30 mmol/L 25 24 Anion Gap 9 - 18 mmol/L 11 14 eGFR >=60 mL/min/1.73m? 66 58 (L) Cholesterol, Total <200 mg/dL 156 Triglyceride <150 mg/dL 104 HDL Cholesterol >39 mg/dL 46 Non HDL Cholesterol <130 mg/dL 110 Fasting Time hrs 12 VLDL Cholesterol <30 mg/dL 21 TC:HDL Ratio <5.10 3.39 LDL Cholesterol <100 mg/dL 89 LDL:HDL Ratio <2.54 1.93 Type 2 diabetes mellitus without complication, without long-term cur (more content not included)... Normal [facility] Absolute lymphocyte countOrd ered By: Rakel Hodgson on 06-23-2023 Lymphocytes Auto (Unsp spec) [#/Vol] 2.02 10*3/uL 0.83-4.51 [facility] Automated lymphocyte count a s percentage of total leukocytesOrdered By: Rakel Hodgson on 06-23-2023 Lymphocytes/100 WBC Auto (Unsp spec) 28.9 % 19-41 [facility] Basophil percentageOrdered B y: Rakel Hodgson on 06-23-2023 Basophils/100 WBC (Bld) 0.7 % 0-1 [facility] Chloride [Moles/Vol] 104 mmol/L 98-107 [facility] Eosinophils/100 WBC (Bld) 1.0 % 0-5 [facility] Glucose [Mass/Vol] 99 mg/dL 74-106 [facility] Hemoglobin (Bld) [Mass/Vol] 15.8 g/dL 13.0-16.5 [facility] Monocytes/100 WBC (Bld) 11.7 % 0-10 [facility] Neutrophils (Bld) [#/Vol] 4.0 10*3/uL 2.0-7.7 [facility] Neutrophils/100 WBC (Bld) 57.1 % 47-70 [facility] Potassium [Moles/Vol] 4.2 mmol/L 3.5-5.1 [facility] Sodium [Moles/Vol] 139 mmol/L 136-145 [facility] WBC (Bld) [#/Vol] 7.0 10*3/uL 4.4-11.0 [facility] Determination of erythrocyte mean corpuscular volume (MCV)Ordered By: Rakel Hodgson on 06-23-2023 MCV (RBC) [Entitic vol] 93.6 fL 80-94 [facility] Erythrocyte distribution wid th ratioOrdered By: Rakel Hodgson on 06-23-2023 Erythrocyte distribution width (RBC) [Ratio] 13.0 % 11.6-14.6 [facility] Erythrocyte distribution wid th standard deviationOrdered By: Rakel Hodgson on 06-23-2023 Erythrocyte distribution width (RBC) [Entitic vol] 44.3 fL 35.1-43.9 [facility] Hematocrit Auto (Bld) [Volum e fraction]Ordered By: Rakel Hodgson on 06-23-2023 Hematocrit (Bld) [Volume fraction] 48.6 % 40-54 [facility] Immature granulocytes/100 WB C Auto (Bld)Ordered By: Rakel Hodgson on 06-23-2023 Immature granulocytes/100 WBC (Bld) 0.600 % 0.0-0.9 [facility] Comment on above: IG% - Immature Granu locytes (promyelocytes, myelocytes and metamyelocytes) > 1% indicates that a LEFT SHIFT is Present. Laboratory - Chemistry and C hemistry - challengeOrdered By: Rakel Hodgson on 06-23-2023 CO2 [Moles/Vol] 31.0 mmol/L 21.0-32.0 [facility] Urea nitrogen/Creatinine [Mass ratio] 13.2 mg/mg 10-20 [facility] Laboratory - Hematology and Cell countsOrdered By: Rakel Hodgson on 06-23-2023 MCH (RBC) [Entitic mass] 30.4 pg 27.0-32.0 [facility] MCHC (RBC) [Mass/Vol] 32.5 g/dL 32-36 [facility] Nucleated RBC/100 WBC (Bld) [Ratio] 0 % 0-5 [facility] Platelets (Bld) [#/Vol] 219 10*3/uL 150-450 [facility] No Panel InformationOrdered By: Rakel Hodgson on 06-23-2023 Estimated GFR (MDRD) Amer 56 mL/min >60 [facility] Comment on above: GFR Calc Estimated GFR (MDRD) Non-Af Amer 47 mL/min >60 [facility] Comment on above: Non- GFR Calc Platelet mean volume Hank-Ec ker (Bld) [Entitic vol]Ordered By: Rakel Hodgson on 06-23-2023 Platelet mean volume (Bld) [Entitic vol] 11.4 fL 6.2-12.0 [facility] RBC Auto (Bld) [#/Vol]Ordere d By: Rakel Hodgson on 06-23-2023 RBC (Bld) [#/Vol] 5.19 10*6/uL 4.6-6.2 [facility] Serum or plasma calcium rosalina urement (mass/volume)Ordered By: Rakel Hodgson on 06-23-2023 Calcium [Mass/Vol] 9.1 mg/dL 8.5-10.1 [facility] Serum or plasma creatinine m easurement (mass/volume)Ordered By: Rakel Hodgson on 06-23-2023 Creatinine [Mass/Vol] 1.59 mg/dL 0.70-1.30 [facility] Comment on above: The validity of the calculated GFR & GFRAA in patients over 70 years has not been determined. Clinical correlation is essential. Serum or plasma urea nitroge n measurement (mass/volume)Ordered By: Rakel Hodgson on 06-23-2023 Urea nitrogen [Mass/Vol] 21 mg/dL 7-18 [facility] Thin prep Papanicolaou smear with manual screeningOrdered By: Rakel Hodgson on 06-23-2023 Thin prep Papanicolaou smear with manual screening 4 5-15 [facility] STREP A MOLECULAR (POC)on Procedural Control Valid [facility] Strep A (POCT) Negative Negative [facility] CBC W Auto Differential pane l (Bld)on 09-30-2022 Basophils (Bld) [#/Vol] 0.04 10*3/uL <0.11 k/uL [facility] Basophils/100 WBC (Bld) 0.6 % [facility] Differential cell count method Nom (Bld) Auto [facility] Eosinophils (Bld) [#/Vol] 0.07 10*3/uL <0.46 k/uL [facility] Eosinophils/100 WBC (Bld) 1.0 % [facility] Erythrocyte distribution width (RBC) [Ratio] 13.6 % 11.5 - 15.0 % [facility] Hematocrit (Bld) [Volume fraction] 43.7 % 39.0 - 51.0 % [facility] Hemoglobin (Bld) [Mass/Vol] 14.2 g/dL 13.0 - 17.0 g/dL [facility] Immature granulocytes (Bld) [#/Vol] <0.10 k/uL [facility] Immature granulocytes/100 WBC (Bld) 0.3 % [facility] Lymphocytes (Bld) [#/Vol] 1.57 10*3/uL 1.00 - 4.00 k/uL [facility] Lymphocytes/100 WBC (Bld) 23.3 % [facility] MCH (RBC) [Entitic mass] 31.1 pg 26.0 - 34.0 pg [facility] MCHC (RBC) [Mass/Vol] 32.5 g/dL 30.5 - 36.0 g/dL [facility] MCV (RBC) [Entitic vol] 95.8 fL 80.0 - 100.0 fL [facility] Monocytes (Bld) [#/Vol] 0.66 10*3/uL <0.87 k/uL [facility] Monocytes/100 WBC (Bld) 9.8 % [facility] Neutrophils (Bld) [#/Vol] 4.37 10*3/uL 1.45 - 7.50 k/uL [facility] Neutrophils/100 WBC (Bld) 65.0 % [facility] Nucleated RBC (Bld) [#/Vol] <0.01 k/uL [facility] Nucleated RBC/100 WBC (Bld) [Ratio] 0.0 /100 WBC [facility] Platelet mean volume (Bld) [Entitic vol] 11.4 fL 9.0 - 12.7 fL [facility] Platelets (Bld) [#/Vol] 246 10*3/uL 150 - 400 k/uL [facility] RBC (Bld) [#/Vol] 4.56 10*6/uL 4.20 - 6.0 0 m/uL [facility] WBC (Bld) [#/Vol] 6.73 10*3/uL 3.70 - 11. 00 k/uL [facility] HbA1c (Bld)on 09-30-2022 Average glucose Estimated from glycated hemoglobin (Bld) [Mass/Vol] 131 mg/dL [facility] HbA1c (Bld) [Mass fraction] 6.2 % High 4.3 - 5.6 % [facility] VALPROIC A/DEPAKENEon 2022 Valproate [Mass/Vol] 70.5 ug/mL 50.0 - 100.0 ug/mL [facility] No Panel Informationon 04-26 [facility] Absolute lymphocyte counton 03-06-2022 Lymphocytes Auto (Unsp spec) [#/Vol] 2.57 10*3/uL 0.83-4.51 [facility] Work Phone: Basophil percentageon 2021 Basophils/100 WBC (Bld) 0.5 % 0-1 [facility] Work Phone: Chloride [Moles/Vol] 104 mmol/L 98-107 [facility] Work Phone: Eosinophils/100 WBC (Bld) 1.8 % 0-5 [facility] Work Phone: [phone] Glucose [Mass/Vol] 112 mg/dL 74-106 [facility] Work Phone: Comment on above: Fasting Glucose resu lt from 100 to 125 mg/dL suggests IMPAIRED HOMEOSTASIS per A.D.A. criteria. Neutrophils (Bld) [#/Vol] 4.0 10*3/uL 2.0-7.7 [facility] Work Phone: [phone] Neutrophils/100 WBC (Bld) 52.2 % 47-70 [facility] Work Phone: [phone] Potassium [Moles/Vol] 3.4 mmol/L 3.5-5.1 [facility] Work Phone: [phone] Sodium [Moles/Vol] 142 mmol/L 136-145 [facility] Work Phone: [phone] WBC (Bld) [#/Vol] 7.7 10*3/uL 4.4-11.0 [facility] Work Phone: Blood erythrocytes count (nu mber/volume)on 03-06-2022 RBC (Bld) [#/Vol] 4.57 10*6/uL 4.6-6.2 [facility] Work Phone: [phone] Blood hemoglobin measurement (mass/volume)on 03-06-2022 Hemoglobin (Bld) [Mass/Vol] 14.7 g/dL 13.0-16.5 [facility] Work Phone: Blood lymphocytes/100 leukoc yteson 03-06-2022 Lymphocytes/100 WBC (Bld) 33.2 % 19-41 [facility] Work Phone: Blood monocytes/100 leukocyt eson 03-06-2022 Monocytes/100 WBC (Bld) 11.8 % 0-10 [facility] Work Phone: Blood platelet mean volumeon 03-06-2022 Platelet mean volume (Bld) [Entitic vol] 10.3 fL 6.2-12.0 [facility] Work Phone: Determination of erythrocyte mean corpuscular volume (MCV)on 03-06-2022 MCV (RBC) [Entitic vol] 93.7 fL 80-94 [facility] Work Phone: Hematocrit Auto (Bld) [Volum e fraction]on 03-06-2022 Hematocrit (Bld) [Volume fraction] 42.8 % 40-54 [facility] Work Phone: Laboratory - Chemistry and C hemistry - challengeon 03-06-2022 CO2 [Moles/Vol] 28.0 mmol/L 21.0-32.0 [facility] Work Phone: Urea nitrogen/Creatinine [Mass ratio] 19.0 mg/mg 10-20 [facility] Work Phone: Laboratory - Hematology and Cell countson 03-06-2022 Erythrocyte distribution width (RBC) [Entitic vol] 43.5 fL 35.1-43.9 [facility] Work Phone: Erythrocyte distribution width (RBC) [Ratio] 12.7 % 11.6-14.6 [facility] Work Phone: Immature granulocytes/100 WBC (Bld) 0.500 % 0.0-0.9 [facility] Work Phone: Comment on above: IG% - Immature Granu locytes (promyelocytes, myelocytes and metamyelocytes) > 1% indicates that a LEFT SHIFT is Present. MCH (RBC) [Entitic mass] 32.2 pg 27.0-32.0 [facility] Work Phone: Nucleated RBC/100 WBC (Bld) [Ratio] 0 % 0-5 [facility] Work Phone: MCHC Auto (RBC) [Mass/Vol]on 03-06-2022 MCHC (RBC) [Mass/Vol] 34.3 g/dL 32-36 [facility]: No Panel Informationon 03-06 Estimated Creatinine Clearance Calc 70.76 ml/min [facility] Work Phone: Estimated GFR (MDRD) Amer 77 mL/min >60 [facility] Work Phone: Comment on above: GFR Calc Estimated GFR (MDRD) Non-Af Amer 64 mL/min >60 [facility] Work Phone: Comment on above: Non- GFR Calc Platelets bldon 03-06-2022 Platelets (Bld) [#/Vol] 230 10*3/uL 150-450 [facility] Work Phone: Serum or plasma calcium rosalina urement (mass/volume)on 03-06-2022 Calcium [Mass/Vol] 9.7 mg/dL 8.5-10.1 [facility] Work Phone: Serum or plasma creatinine m easurement (mass/volume)on 03-06-2022 Creatinine [Mass/Vol] 1.21 mg/dL 0.70-1.30 [facility] Work Phone: Comment on above: The validity of the calculated GFR & GFRAA in patients over 70 years has not been determined. Clinical correlation is essential. Serum or plasma urea nitroge n measurement (mass/volume)on 03-06-2022 Urea nitrogen [Mass/Vol] 23 mg/dL 7-18 [facility] Work Phone: Thin prep Papanicolaou smear with manual screeningon 03-06-2022 Thin prep Papanicolaou smear with manual screening 10 5-15 [facility] Work Phone: No Panel InformationOrdered By: [facility] Provider on 03-12-2021 [facility] No Panel Informationon 03-12 Radiology Study observation (narrative) Kaitlin belle [facility] XR Ankle - right AP and Late ral and obliqueon 03-12-2021 * * *Final Report* * * DATE OF EXAM: Mar 12 2021 2:53PM WOX [id number] - XR ANKLE 3V AP/LAT/OBL RT / PROCEDURE REASON: Acute right ankle pain * * * * Physician Interpretation * * * * Indication: Right ankle and right foot redness and swelling Comparison: None AP, lateral and oblique views of the right ankle and right foot are obtained. There is no acute fracture or dislocation. No destructive osseous lesion. There is mild narrowing of the right first metatarsophalangeal joint with marginal osteophytes. There is soft tissue swelling of the right ankle and right foot. No soft tissue gas is visualized. Impression: 1. No acute fracture or dislocation. Contour Grinder: [email or web address] Transcribe Date/Time: Mar 12 2021 3:19P Dictated by : COURTNEY MART MD This examination was interpreted and the report reviewed and electronically signed by: COURTNEY MART MD on Mar 12 2021 3:22PM [facility] DIVISION OF RADIOLOGY Provider, [facility]/12/[facility]21 * * *Final Report* * * DATE OF EXAM: Mar 12 2021 2:53PM WOX 5297 - XR ANKLE 3V AP/LAT/OBL RT / PROCEDURE REASON: Acute right ankle pain * * * * Physician Interpretation * * * * Indication: Right ankle and right foot redness and swelling Comparison: None AP, lateral and oblique views of the right ankle and right foot are obtained. There is no acute fracture or dislocation. No destructive osseous lesion. There is mild narrowing of the right first metatarsophalangeal joint with marginal osteophytes. There is soft tissue swelling of the right ankle and right foot. No soft tissue gas is visualized. Impression: 1. No acute fracture or dislocation. Contour Grinder: [email or web address] Transcribe Date/Time: Mar 12 2021 3:19P Dictated by : COURTNEY MART MD This examination was interpreted and the report reviewed and electronically signed by: COURTNEY MART MD on Mar 12 2021 3:22PM EST [facility] XR Foot - right AP and Later al and obliqueon 03-12-2021 * * *Final Report* * * DATE OF EXAM: Mar 12 2021 2:53PM WOX [id number] - XR FOOT 3V AP/LAT/OBL RT / PROCEDURE REASON: Foot pain, right * * * * Physician Interpretation * * * * Indication: Right ankle and right foot redness and swelling Comparison: None AP, lateral and oblique views of the right ankle and right foot are obtained. There is no acute fracture or dislocation. No destructive osseous lesion. There is mild narrowing of the right first metatarsophalangeal joint with marginal osteophytes. There is soft tissue swelling of the right ankle and right foot. No soft tissue gas is visualized. Impression: 1. No acute fracture or dislocation. Contour Grinder: [email or web address] Transcribe Date/Time: Mar 12 2021 3:19P Dictated by : COURTNEY MART MD This examination was interpreted and the report reviewed and electronically signed by: COURTNEY MART MD on Mar 12 2021 3:22PM [facility] DIVISION OF RADIOLOGY Provider, [facility] - 03/12/2021 * * *Final Report* * * DATE OF EXAM: Mar 12 2021 2:53PM WOX 5337 - XR FOOT 3V AP/LAT/OBL RT / PROCEDURE REASON: Foot pain, right * * * * Physician Interpretation * * * * Indication: Right ankle and right foot redness and swelling Comparison: None AP, lateral and oblique views of the right ankle and right foot are obtained. There is no acute fracture or dislocation. No destructive osseous lesion. There is mild narrowing of the right first metatarsophalangeal joint with marginal osteophytes. There is soft tissue swelling of the right ankle and right foot. No soft tissue gas is visualized. Impression: 1. No acute fracture or dislocation. Contour Grinder: [email or web address] Transcribe Date/Time: Mar 12 2021 3:19P Dictated by : COURTNEY MART MD This examination was interpreted and the report reviewed and electronically signed by: COURTNEY MART MD on Mar 12 2021 3:22PM EST [facility] VISUAL FIELD 30-2 OU (BOTH E YES) [facility] Vital Signs Date Time Vital Sign Value Performing Clinician Facility 07-11-2024 17:10-0500 Body temperature 97.7 [degF] Dr. Aric Zapien MD Work Phone: [facility] 07-11-2024 17:10-0500 Diastolic blood pressure 88 mm[Hg] Dr. Aric Zapien MD Work Phone: [facility] 07-11-2024 17:10-0500 Heart rate 100 /min Dr. Aric Zapien MD Work Phone: 8(513)[phone] [place] [address] 07-11-2024 17:10-0500 Respiratory rate 16 /min Dr. Aric Zapien MD Work Phone: 0([phone])[phone] [place] [address] 07-11-2024 17:10-0500 SaO2% (BldA) [Mass fraction] 97 % Dr. Aric Zapien MD Work Phone: 5(298)[phone] [place] [address] 07-11-2024 17:10-0500 Systolic blood pressure 127 mm[Hg] Dr. Aric Zapien MD Work Phone: 5(044)026-796413 [place] [address] 07-10-2024 10:00-0500 Inhaled oxygen flow rate 2 L/min Dr. Aric Zapien MD Work Phone: 7(969)[phone] [place] [address] 07-09-2024 15:34-0500 Body height 182.[address] Aric Zapien MD Work Phone: 9(390)[phone] [place] [address] 07-09-2024 15:34-0500 Body weight 97.[address] Aric Zapien MD Work Phone: 3(655)043-525713 [place] [address] 07-09-2024 11:44-0500 Body mass index (BMI) [Ratio] 29.2 kg/m2 Dr. Aric Zapien MD Work Phone: 4(225)398-931013 [place] [address] 06-22-2024 13:29-0500 Body temperature 97.81 [degF] Florinda Stevenson WINDER HAND.OUTSIDE PROPERTY AGENT Work Phone: [facility] 06-22-2024 13:29-0500 Diastolic blood pressure 76 mm[Hg] Florinda Suppan WINDER HAND.OUTSIDE PROPERTY AGENT Work Phone: [facility] 06-22-2024 13:29-0500 Heart rate 88 /min Florinda Stevenson WINDER HAND.OUTSIDE PROPERTY AGENT Work Phone: [facility] 06-22-2024 13:29-0500 SaO2% (BldA) [Mass fraction] 99 % Florinda Suppprimitivo WINDER HAND.OUTSIDE PROPERTY AGENT Work Phone: [facility] 06-22-2024 13:29-0500 Systolic blood pressure 118 mm[Hg] Florinda Stevenson APRN.OUTSIDE PROPERTY AGENT Work Phone: [facility] 11-22-2023 15:27-0400 Body mass index (BMI) [Ratio] 30.65 kg/m2 NA Max PA-C Work Phone: [facility] 11-22-2023 15:27-0400 Body weight 102.51 kg NA Max PA-C Work Phone: [facility] 11-22-2023 15:27-0400 Diastolic blood pressure 80 mm[Hg] NA Max PA-C Work Phone: [facility] 11-22-2023 15:27-0400 Heart rate 85 /min NA Max PA-C Work Phone: [facility] 11-22-2023 15:27-0400 Respiratory rate 15 /min NA Max PA-C Work Phone: [facility] 11-22-2023 15:27-0400 SaO2% (BldA) [Mass fraction] 96 % NA Max PA-C Work Phone: [facility] 11-22-2023 15:27-0400 Systolic blood pressure 128 mm[Hg] NA Max PA-C Work Phone: [facility] 06-23-2023 15:04-0500 Body height 187.[address] Aric Zapien Work Phone: [facility] 06-23-2023 15:04-0500 Body mass index (BMI) [Ratio] 28.5 kg/m2 Dr. Aric Zapien Work Phone: [facility] 06-23-2023 15:04-0500 Body weight 100.[address] Aric Zapien Work Phone: [facility] 06-23-2023 15:04-0500 Diastolic blood pressure 60 mm[Hg] Dr. Aric Zapien Work Phone: [facility] 06-23-2023 15:04-0500 Heart rate 67 /min Dr. Aric Zapien Work Phone: [facility] 06-23-2023 15:04-0500 Respiratory rate 18 /min Dr. Aric Zapien Work Phone: [facility] 06-23-2023 15:04-0500 SaO2% (BldA) [Mass fraction] 97 % Dr. Aric Zapien Work Phone: [facility] 06-23-2023 15:04-0500 Systolic blood pressure 80 mm[Hg] Dr. Aric Zapien Work Phone: [facility] 12-07-2022 13:46-0400 Body temperature 98.4 [degF] Krislyn Aberegg PA Work Phone: [facility] 12-07-2022 13:46-0400 Body weight 101.7 kg Krislyn Aberegg PA Work Phone: [facility] 12-07-2022 13:46-0400 Diastolic blood pressure 76 mm[Hg] Krislyn Aberegg PA Work Phone: [facility] 12-07-2022 13:46-0400 Heart rate 60 /min Krislyn Aberegg PA Work Phone: [facility] 12-07-2022 13:46-0400 Respiratory rate 18 /min Krislyn Aberegg PA Work Phone: [facility] 12-07-2022 13:46-0400 SaO2% (BldA) [Mass fraction] 96 % Krislyn Aberegg PA Work Phone: [facility] 12-07-2022 13:46-0400 Systolic blood pressure 112 mm[Hg] Krislyn Aberegg PA Work Phone: [facility] 09-30-2022 13:13-0400 Body height 182.9 cm rAic Zapien MD Work Phone: [facility] 09-30-2022 13:13-0400 Body weight 103.87 kg Aric Zapien MD Work Phone: [facility] 09-30-2022 13:13-0400 Diastolic blood pressure 100 mm[Hg] Aric Zapien MD Work Phone: [facility] 09-30-2022 13:13-0400 Heart rate 88 /min Aric Zapien MD Work Phone: [facility] 09-30-2022 13:13-0400 SaO2% (BldA) [Mass fraction] 97 % Aric Zapien MD Work Phone: [facility] 09-30-2022 13:13-0400 Systolic blood pressure 152 mm[Hg] Aric Zapien MD Work Phone: [facility] 04-01-2022 10:36-0400 Body weight 99.79 kg Aric Zapien MD Work Phone: [facility] 04-01-2022 10:36-0400 Diastolic blood pressure 62 mm[Hg] Aric Zapien MD Work Phone: [facility] 04-01-2022 10:36-0400 Heart rate 97 /min Aric Zapien MD Work Phone: [facility] 04-01-2022 10:36-0400 SaO2% (BldA) [Mass fraction] 100 % Aric Zapien MD Work Phone: [facility] 04-01-2022 10:36-0400 Systolic blood pressure 102 mm[Hg] Aric Zapien MD Work Phone: [facility] 03-09-2022 15:09-0400 Body height 184 cm NA Max PA-C Work Phone: [facility] 03-09-2022 15:09-0400 Body weight 101.15 kg NA Max PA-C Work Phone: [facility] 03-09-2022 15:09-0400 Diastolic blood pressure 74 mm[Hg] NA Max PA-C Work Phone: [facility] 03-09-2022 15:09-0400 Heart rate 82 /min NA Max PA-C Work Phone: [facility] 03-09-2022 15:09-0400 Respiratory rate 12 /min NA Max PA-C Work Phone: [facility] 03-09-2022 15:09-0400 SaO2% (BldA) [Mass fraction] 98 % NA Max PA-C Work Phone: [facility] 03-09-2022 15:09-0400 Systolic blood pressure 104 mm[Hg] NA Max PA-C Work Phone: [facility] 03-08-2022 15:33-0400 Body weight 99.79 kg Aric Huston Jr., MD Work Phone: [facility] 03-08-2022 15:33-0400 Diastolic blood pressure 72 mm[Hg] Aric Huston Jr., MD Work Phone: [facility] 03-08-2022 15:33-0400 Heart rate 93 /min Aric Huston Jr., MD Work Phone: [facility] 03-08-2022 15:33-0400 Respiratory rate 12 /min Aric Huston Jr., MD Work Phone: [facility] 03-08-2022 15:33-0400 SaO2% (BldA) [Mass fraction] 98 % Aric Huston Jr., MD Work Phone: [facility] 03-08-2022 15:33-0400 Systolic blood pressure 100 mm[Hg] Aric Huston Jr., MD Work Phone: [facility] 03-06-2022 12:58-0400 Diastolic blood pressure 90 mm[Hg] [facility] Work Phone: 03-06-2022 12:58-0400 Heart rate 80 /min [facility] Work Phone: 03-06-2022 12:58-0400 Respiratory rate 16 /min [facility] Work Phone: 03-06-2022 12:58-0400 SaO2% (BldA) [Mass fraction] 98 % [facility] Work Phone: 03-06-2022 12:58-0400 Systolic blood pressure 116 mm[Hg] [facility] Work Phone: 03-06-2022 10:03-0400 Body height 187.96 cm [facility] Work Phone: 03-06-2022 10:03-0400 Body mass index (BMI) [Ratio] 28.9 kg/m2 [facility] Work Phone: 03-06-2022 10:03-0400 Body temperature 97.1 [degF] [facility] Work Phone: 03-06-2022 10:03-0400 Body weight 102.1 kg [facility] Work Phone: 09-24-2021 15:24-0400 Body weight 102.51 kg Aric Zapien MD Work Phone: [facility] 09-24-2021 15:24-0400 Diastolic blood pressure 82 mm[Hg] Aric Zapien MD Work Phone: [facility] 09-24-2021 15:24-0400 Heart rate 88 /min Aric Zapien MD Work Phone: [facility] 09-24-2021 15:24-0400 Systolic blood pressure 122 mm[Hg] Aric Zapien MD Work Phone: [facility] Encounters Encounter Date Encounter Type Care Provider Facility Start: 10-31-2024 ambulatory Jigna Garcia ty:[facility] Start: 10-25-2024 End: 10-25-2024 Telephone encounter Aric Zapien MD Work Phone: [facility] [place] Comment on above: Letter (No show #2) Start: 10-23-2024 ambulatory Aric Zapien Facility:[facility] Start: 09-26-2024 End: 09-26-[address] Aric Zapien MD Work Phone: [facility] Work Phone: Start: 09-26-2024 End: 09-26-[address] Jigna Brantley MD -[facility] Start: 09-26-2024 End: 09-26-2024 ambulatory [facility] Facility:[facility] Start: 08-27-2024 End: 08-27-[address] Aric Zapien MD Work Phone: [facility] Work Phone: Start: 08-27-2024 End: 08-27-[address] Jigna Brantley MD -[facility] Start: 08-27-2024 End: 08-27-2024 ambulatory Jigna ALMENDAREZ Facility:[facility] Start: 07-23-2024 ambulatory Jigna ALMENDAREZ Facili ty:[facility] Start: 07-23-[address] Jigna Brantley MD -[facility] Start: 07-16-2024 End: 08-07-2024 Telephone encounter Aric Zapien MD Work Phone: [facility] Comment on above: Patient Update Start: 07-16-2024 ambulatory Jigna ALMENDAREZ Facili ty:[facility] Start: 07-16-[address] Jigna Brantley MD -[facility] Start: 07-12-2024 ambulatory Jigna ALMENDAREZ Facili ty:[facility] Start: 07-12-[address] Jigna Brantley MD -[facility] Start: 07-11-2024 Non-patient / Non-visit Dr. Yann stevens [facility] Work Phone: Start: 07-10-2024 Non-patient / Non-visit Dr. Yann stevens [facility] Work Phone: Start: 07-10-2024 ambulatory [facility] Facility:[facility] Start: 07-10-2024 Non-patient / Non-visit Dr. Cynthia Irby MD -[facility] Start: 07-09-2024 End: 07-11-2024 Evaluation and management of inpatient Dr. Yann Ascencio DO -Progressive Care Unit Work Phone: Start: 07-09-2024 ambulatory [facility] Facility:[facility] Start: 07-09-2024 Non-patient / Non-visit Dr. Yann stevens DO -[facility] Work Phone: Start: 06-26-2024 End: 06-26-2024 Telephone encounter Damaris Sotelo MD Work Phone: [facility] Start: 06-25-2024 End: 06-25-2024 Telephone encounter Florinda Stevenson APRN.OUTSIDE PROPERTY AGENT Work Phone: [facility] Comment on above: Results Start: 06-22-2024 End: 06-22-2024 Telephone encounter Aric Zapien MD Work Phone: [facility] Comment on above: Patient Question Start: 06-22-2024 End: 06-22-2024 Office outpatient visit 15 minutes Florinda Stevenson WINDER HAND.OUTSIDE PROPERTY AGENT Work Phone: [facility] Comment on above: Type 2 diabetes jorge itus without complication, without long- term current use of insulin (HCC) (Primary Dx); Fall, initial encounter; Screening for lipid disorders; Acute low back pain without sciatica, unspecified back pain laterality Start: 06-22-2024 End: 06-22-2024 ambulatory ARIC Crowley [facility] Facility:[facility] Start: 06-16-2024 End: 06-22-2024 Telephone encounter Aric Zapien MD Work Phone: [facility] Comment on above: Patient Update Start: 06-13-2024 End: 06-14-2024 Refill Aric Zapien MD Work Phone: [address] [place] [address] Comment on above: Refill Request Start: 05-28-2024 End: 05-28-2024 ambulatory Mayuri Perez [facility] Start: 05-28-2024 End: 05-28-2024 Patient encounter [facility] Comment on above: Population Health Na vigation Outreach ([facility] OUTREACH ) Start: 04-18-2024 End: 04-18-2024 ambulatory Edward Pleitez [facility] Work Phone: [facility] Start: 04-18-2024 End: 04-18-2024 Patient encounter procedure Edward Pleitez [facility] Work Phone: [facility] Start: 03-21-2024 End: 03-23-2024 Telephone encounter Lu Fish APRN.OUTSIDE PROPERTY AGENT Work Phone: Endocrinology Start: 03-07-2024 End: 03-07-2024 ambulatory Jordy Hernandez MA [facility] Start: 03-07-2024 End: 03-07-2024 Patient encounter procedure Jordy Hernandez MA [facility] Comment on above: Population Health Na vigation Outreach ([facility] Start: 12-15-2023 ambulatory Moshe Friedman [facility] Start: 12-15-2023 Patient encounter procedure Moshe Friedman MA [facility] Comment on above: Population Health Na vigation Outreach ([facility]) Start: 11-24-2023 Telephone encounter Harvey HASSAN [facility] Start: 11-22-2023 End: 11-22-2023 ambulatory RENUKA MAX Facility:[facility] Start: 11-22-2023 End: 11-22-2023 Patient encounter procedure Jaison Max PA-C Work Phone: [facility] Comment on above: 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 (Primary Dx); Seizures (HCC); Mitral valve insufficiency, unspecified etiology; Non-rheumatic tricuspid valve insufficiency; Left atrial enlargement; 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 (HCC); longterm current use of 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; Pulmonary hypertension (HCC); Enlarged thoracic aorta (HCC); Primary hypertension; Mixed hyperlipidemia; Chronic renal failure (CRF), stage 3a (HCC); Type 2 diabetes mellitus without complication, without long-term current use of insulin (HCC); Adjustment disorder with mixed emotional features; Anxiety state; Encounter for immunization; Screening for colon cancer; Screening for abdominal aortic aneurysm; Incurvated nail Start: 11-08-2023 Refill Aric Zapien MD Work Phone: [facility] Comment on above: Refill Request Start: 10-31-2023 Refill Aric Zapien MD Work Phone: [facility] Comment on above: Refill Request Start: 06-23-2023 End: 06-23-[address] Aric Zapien Work Phone: [facility] Work Phone: Start: 06-23-2023 End: 06-23-[address] Aric Zapien Work Phone: [facility] Work Phone: Start: 12-07-2022 End: 12-07-2022 Patient encounter procedure Sarah MARIE Work Phone: [facility] Comment on above: Sore throat (Primary Dx); URI, acute Start: 09-30-2022 End: 09-30-2022 Patient encounter procedure Aric Zapien MD Work Phone: [facility] Comment on above: Seizures (HCC) (Prim michelle Dx); Other migraine without status migrainosus, not intractable; Primary pulmonary HTN (HCC); Primary hypertension; 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 (HCC); Pulmonary hypertension (HCC); Type 2 diabetes mellitus without complication, without long-term current use of insulin (HCC); Elevated TSH; History of skull fracture; Anxiety state; Edema, unspecified type; Screening for AAA (abdominal aortic aneurysm); Screening for colon cancer; Stage 3 chronic kidney disease, unspecified whether stage 3a or 3b CKD (HCC); Peripheral vascular disease (HCC); Pain due to onychomycosis of nail Start: 06-18-2022 Refill Aric Zapien MD Work Phone: [facility] Comment on above: Refill Request Start: 06-11-2022 ambulatory Leanna Benavidez RN [facility] Comment on above: DESI CEE RN ( Medication Adherence review per request of payer) Start: 04-27-2022 Telephone encounter Aric Huston MD Work Phone: Neurology Comment on above: Results Start: 04-26-2022 End: 04-26-2022 Subsequent hospital visit by physician [facility] (I-Stat/1.5t) Work Phone: Radiology Comment on above: 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 status epilepticus, unspecified epilepsy type (HCC) [G40.919] Start: 04-12-2022 Telephone encounter Aric Huston MD Work Phone: Neurology Comment on above: Orders Start: 04-12-2022 End: 04-12-2022 Patient encounter procedure Marniyeimi Hare OD Work Phone: Ophthalmology Comment on above: Left homonymous infe rior quadrantanopia (Primary Dx); Myopia, bilateral; Presbyopia; Regular astigmatism of left eye; Combined forms of age-related cataract of both eyes; Punctate keratitis, bilateral Start: 04-03-2022 Telephone encounter Jaison Max PA-C Work Phone: [facility] Comment on above: Results Start: 04-02-2022 Telephone encounter Aric Huston MD Work Phone: Neurology Comment on above: Orders Start: 04-01-2022 End: 04-01-2022 Patient encounter procedure Aric Zapien MD Work Phone: [facility] Comment on above: Permanent atrial fib rillation (HCC) (Primary Dx); Seizures (HCC); Primary pulmonary HTN (HCC); Primary hypertension; Mixed hyperlipidemia; Type 2 diabetes mellitus without complication, without long-term current use of insulin (HCC); History of thyroiditis; Enlarged thoracic aorta (HCC); Screening for AAA (abdominal aortic aneurysm) Start: 03-15-2022 Telephone encounter Jaison Max PA-C Work Phone: [facility] Comment on above: Orders Start: 03-09-2022 End: 03-09-2022 Patient encounter procedure Jaison Max PA-C Work Phone: [facility] Comment on above: Medicare annual well ness visit, initial (Primary Dx); 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 (HCC); Non-rheumatic tricuspid valve insufficiency; Mitral valve insufficiency, unspecified etiology; Enlarged thoracic aorta (HCC); Primary pulmonary HTN (HCC); Primary hypertension; Mixed hyperlipidemia; Hyperglycemia; Encounter for hepatitis C screening test for low risk patient; Need for COVID-19 vaccine; Need for vaccination; Presbyopia of both eyes; Multiple atypical skin moles; Loss of lateral visual alexandra Start: 03-08-2022 End: 03-08-2022 Patient encounter procedure Aric Huston MD Work Phone: Neurology Comment on above: 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 status epilepticus, unspecified epilepsy type (HCC) (Primary Dx); Seizures (HCC) Start: 03-06-2022 End: 03-06-2022 [facility] Start: 03-04-2022 Refill Aric Zapien MD Work Phone: [facility] Comment on above: Refill Request Start: 02-23-2022 ambulatory [facility] Comment on above: ACJaison CEE RN ( SPC/SUPD rev. per request [facility]) Start: 09-24-2021 End: 09-24-2021 Patient encounter procedure Aric Zapien MD Work Phone: [facility] Comment on above: Permanent atrial fib rillation (HCC) (Primary Dx); Type 2 diabetes mellitus without complication, without long-term current use of insulin (HCC); Primary pulmonary HTN (HCC); Enlarged thoracic aorta (HCC); Mitral valve insufficiency, unspecified etiology; Non-rheumatic tricuspid valve insufficiency; Primary hypertension; Seizures (HCC); Mixed hyperlipidemia; Screening for colon cancer; Need for hepatitis C screening test; Screening for HIV (human immunodeficiency virus) Start: 09-08-2021 ambulatory Aric Zapien MD Work Phone: [facility] [place] Start: 03-12-2021 End: 03-12-2021 Subsequent hospital visit by physician [facility] Work Phone: Radiology Comment on above: Acute right ankle pa in [M25.571] Procedures Date Procedure Procedure Detail Performing Clinician Start: 07-23-2024 Measurement of renal function Dr. Aric Zapien MD Work Phone: Comment on above: GFR Calc Start: 07-16-2024 Measurement of renal function Dr. Aric Zapien MD Work Phone: Comment on above: GFR Calc Start: 07-16-[address] Aric Zapien MD Work Phone: Start: 07-12-2024 Measurement of renal function Dr. Aric Zapien MD Work Phone: Comment on above: GFR Calc Start: 07-12-2024 Vitamin D, 25-hydrox y measurement Dr. Aric Zapien MD Work Phone: Comment on above: Vitamin D 25(OH) Sta tus Range Deficiency <20 ng/mL (50nmol/L) Insufficiency 20 - 30 ng/mL (50 - 75 nmol/L) Sufficiency 30 - 100 ng/mL (75 - 250 nmol/L) Toxicity >100 ng/mL (>250 nmol/L) Start: 07-10-[address] Aric Zapien MD Work Phone: Start: 07-10-2024 Measurement of renal function Dr. Aric Zapien MD Work Phone: Comment on above: GFR Calc Start: 07-09-2024 Urnls dip stick/tabl et reagent auto microscopy Dr. Aric Zapien MD Work Phone: Start: 07-09-2024 Plain chest X-ray Dr. Christiano Zapien MD Work Phone: Start: 07-09-2024 X-ray of ankle, thre e or more views Dr. Aric Zapien MD Work Phone: Start: 07-09-2024 X-ray of foot, three or more views Dr. Aric Zapien MD Work Phone: Start: 07-09-2024 D-dimer assay, quantitative Dr. Aric Zapien MD Work Phone: Comment on above: D-Dimer ELEVATED (>0 .49): Additional studies and clinicalassessments are indicated to conclude diagnosis of:Deep Vein Thrombosis (DVT) or Pulmonary Embolism (PE)CRITICAL VALUE CALLED TO Reddy CHRISTIE07/09/24 0925 Vesta Gutierrez.RESULTS READ BACK BY . Start: 11-22-2023 Postini COVI D-19 VACCINE ( SEASON) AGE 12+ YR M Leonidas Max PA-C Work Phone: Start: 11-22-2023 Adult depression scr eening assessment [facility] [place] Work Phone: Start: 12-07-2022 STREP A MOLECULAR (POC) Mikki Rodriguez APRN.OUTSIDE PROPERTY AGENT Work Phone: Start: 04-26-2022 Mra head w/o contrst material Aric Huston MD Work Phone: Start: 04-12-2022 Visual field xm uni/ bi w/interp extended exam Marni Hare OD Work Phone: Start: 03-06-2022 CT of head without contrast Start: 03-12-2021 Radex ankle complete minimum 3 views Quang Bowman MD Work Phone: Start: 03-02-2016 Adult depression scr eening assessment Aric Zapien MD Work Phone: Plan of Treatment Date Care Activity Detail Author Start: 01-04-2032 RSV Vaccine (1 - 1-dose 75+ series) RSV Vaccine (1 - 1-dose 75+ series) [facility] Start: 09-24-2026 PROSTATE CANCER SCREENING DISCUSSION PROSTATE CANCER SCREENING DISCUSSION [facility] Start: 09-24-2026 Prostate specific antigen measurement Prostate Cancer Screening Discussion [facility] Start: 06-22-2025 Annual PCP Team Chronic Disease Visit Annual PCP Team Chronic Disease Visit [facility] Start: 06-22-2025 BP Controlled (<130/80) BP Controlled (<130/80) [facility] Start: 06-22-2025 Complete blood count Hemoglobin/Hematocrit [facility] Start: 06-22-2025 Creatinine measurement Serum Creatinine [facility] Start: 06-22-2025 Hepatitis B screening Urine Albumin:Creatinine Ratio [facility] Start: 06-22-2025 Hepatitis B surface antibody level LDL Cholesterol [facility] Start: 01-28-2025 Influenza vaccination Influenza Vaccine (Season Ended) [facility] Start: 12-20-2024 Hemoglobin A1c measurement HbA1C [facility] Start: 11-21-2024 Annual PCP Team Chronic Disease Visit Annual PCP Team Chronic Disease Visit [facility] Start: 11-21-2024 Depression Screening Depression Screening [facility] Start: 11-21-2024 Diabetic foot examination Diabetic Foot Exam [facility] Start: 07-12-2024 End: 07-12-2024 Patient encounter procedure 07/12/2024 1:20 PM EST Office Visit [facility] [place] [address] [place] [address] Florinda Stevenson APRN.OUTSIDE PROPERTY AGENT [address] [place] [address] 2 week follow up Family [facility] Comment on above: 2 week follow up Start: 07-11-2024 Patient discharge [facility] Start: 07-10-2024 Care planning and problem solving actions [facility] Start: 07-10-2024 [facility] Start: 07-10-2024 End: 07-10-2024 Patient encounter procedure [facility] Comment on above: Lumbar x-ray needs order L1 Fx Start: 07-10-2024 Oxygen therapy [facility] Start: 07-09-2024 Care planning and problem solving actions [facility] Start: 07-09-2024 End: 07-09-2024 Following clinical pathway protocol [facility] Start: 07-09-2024 Assessment of risk of venous thromboembolism [facility] Start: 07-09-2024 Care regimes management [facility] Start: 07-09-2024 Insertion of catheter into peripheral vein [facility] Start: 07-09-2024 Measuring intake and output [facility] Start: 07-09-2024 Notification of physician [facility] Start: 07-09-2024 Providing care according to standard [facility] Start: 07-09-2024 Provision of activity privileges [facility] Start: 07-09-2024 Referral to occupational therapist [facility] Start: 07-09-2024 Referral to service [facility] Start: 07-09-2024 End: 07-09-2024 [facility] Start: 07-09-2024 Admission procedure [facility] Start: 07-09-2024 Patient referral to dietitian [facility] Start: 06-22-2024 End: 09-21-2024 CBC W Auto Differential panel - Blood [facility] Comment on above: Expected: 06/22/2024, Expires: Start: 06-22-2024 End: 09-21-2024 Comprehensive metabolic 2000 panel - Serum or Plasma [facility] Comment on above: Expected: 06/22/2024, Expires: Start: 06-22-2024 End: 09-21-2024 Ferritin [Mass/volume] in Serum or Plasma [facility] Comment on above: Expected: 06/22/2024, Expires: Start: 06-22-2024 End: 09-21-2024 Hemoglobin A1c in Blood [facility] Work Phone: Comment on above: Expected: 06/22/2024, Expires: Start: 06-22-2024 End: 09-21-2024 Iron and Iron binding capacity panel - Serum or Plasma [facility] Comment on above: Expected: 06/22/2024, Expires: Start: 06-22-2024 End: 09-21-2024 LIPID PANEL, NONFASTING [facility] Comment on above: Expected: 06/22/2024, Expires: Start: 06-22-2024 End: 09-21-2024 Magnesium [Mass/volume] in Serum or Plasma [facility] Comment on above: Expected: 06/22/2024, Expires: Start: 06-22-2024 End: 09-21-2024 Microalbumin/Creatinine [Mass Ratio] in Urine [facility] Comment on above: Expected: 06/22/2024, Expires: Start: 06-21-2024 End: 06-21-2024 Patient encounter procedure 06/21/2024 11:00 AM EST Office Visit [facility] [address] [place] [address] Aric Zapien MD [address] [place] [address] FALL ON ICE Family [facility] Comment on above: FALL ON ICE Start: 05-30-2024 Advance Directive Discussion Advance Directive Discussion [facility] Start: 05-25-2024 End: 05-25-2024 Patient encounter procedure [facility] Comment on above: 6 month follow up 6 month follow up - HTN focus [place] Start: 05-24-2024 Annual PCP Team Chronic Disease Visit Annual PCP Team Chronic Disease Visit [facility] Start: 05-24-2024 BP Controlled (<130/80) BP Controlled (<130/80) [facility] Start: 05-24-2024 Complete blood count Hemoglobin/Hematocrit [facility] Start: 05-24-2024 Creatinine measurement Serum Creatinine [facility] Start: 05-24-2024 Hepatitis B screening Urine Albumin:Creatinine Ratio [facility] Start: 05-24-2024 Hepatitis B surface antibody level LDL Cholesterol [facility] Start: 02-22-2024 End: 05-23-2024 Hemoglobin A1c in Blood HEMOGLOBIN A1C Lab Routine Type 2 diabetes mellitus without complication, without long-term current use of insulin (HCC) Expected: 02/22/2024, Expires: 05/23/2024 [facility] Comment on above: Expected: 02/22/2024, Expires: Start: 01-29-2024 Covid-19 Vaccine ( season) Covid-19 Vaccine ( season) [facility] Start: 01-29-2024 Influenza vaccination Influenza Vaccine (#1) [facility] Start: 12-08-2023 BP CONTROLLED (<130/80) BP CONTROLLED (<130/80) [facility] Start: 11-23-2023 Hemoglobin A1c measurement HbA1C [facility] Start: 11-22-2023 End: 11-22-2023 Patient encounter procedure 11/22/2023 3:40 PM EDT Office Visit Family [facility] [place] [address] [place] [id number] Jaison Max PA-C [address] [place] [address] 6 mth f/u [facility] Comment on above: 6 mth f/u Start: 11-22-2023 End: 02-21-2024 CBC W Auto Differential panel - Blood COMPLETE BLOOD COUNT AND DIFFERENTIAL Lab Routine Seizures (HCC) Mitral valve insufficiency, unspecified etiology Non-rheumatic tricuspid valve insufficiency Left atrial enlargement 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 (HCC) longterm current use of 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 Pulmonary hypertension (HCC) Enlarged thoracic aorta (HCC) Primary hypertension Chronic renal failure (CRF), stage 3a (HCC) Type 2 diabetes mellitus without complication, without long-term current use of insulin (HCC) Adjustment disorder with mixed emotional features Anxiety state Expected: 11/22/2023, Expires: 02/21/2024 [facility] Work Phone: Comment on above: Expected: 11/22/2023, Expires: Start: 11-22-2023 End: 02-21-2024 Comprehensive metabolic 2000 panel - Serum or Plasma COMPREHENSIVE METABOLIC PANEL Lab Routine Seizures (HCC) Mitral valve insufficiency, unspecified etiology Non-rheumatic tricuspid valve insufficiency Left atrial enlargement 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 (HCC) 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 Pulmonary hypertension (HCC) Enlarged thoracic aorta (HCC) Primary hypertension Mixed hyperlipidemia Chronic renal failure (CRF), stage 3a (HCC) Type 2 diabetes mellitus without complication, without long-term current use of insulin (HCC) Adjustment disorder with mixed emotional features Anxiety state Expected: 11/22/2023, Expires: 02/21/2024 [facility] Comment on above: Expected: 11/22/2023, Expires: Start: 11-22-2023 End: 02-21-2024 Lipid 1996 panel - Serum or Plasma LIPID PANEL BASIC Lab Routine Mitral valve insufficiency, unspecified etiology Non-rheumatic tricuspid valve insufficiency Left atrial enlargement 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 (HCC) longterm current use of 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 Pulmonary hypertension (HCC) Enlarged thoracic aorta (HCC) Primary hypertension Mixed hyperlipidemia Type 2 diabetes mellitus without complication, without long-term current use of insulin (HCC) Expected: 11/22/2023, Expires: 02/21/2024 [facility] Comment on above: Expected: 11/22/2023, Expires: Start: 10-15-2023 ANNUAL PCP TEAM CHRONIC DISEASE VISIT ANNUAL PCP TEAM CHRONIC DISEASE VISIT [facility] Start: 10-01-2023 3 comp foot exam completed DIABETIC FOOT EXAM [facility] Start: 10-01-2023 ANNUAL PCP TEAM CHRONIC DISEASE VISIT ANNUAL PCP TEAM CHRONIC DISEASE VISIT [facility] Start: 10-01-2023 Diabetic foot examination Diabetic Foot Exam [facility] Start: 10-01-2023 Urine microalbumin profile [facility] Comment on above: Postponed from 01/04/1976 (Declined at t his time) Start: 09-23-2023 Covid-19 Vaccine () Covid-19 Vaccine () [facility] Start: 05-30-2023 Advance Directive Discussion Advance Directive Discussion [facility] Start: 05-30-2023 Behavioral Health Screening Behavioral Health Screening [facility] Start: 04-12-2023 Glaucoma screening Dilated Retinal Exam [facility] Start: 04-12-2023 Hepatitis C antibody, confirmatory test DILATED RETINAL EXAM [facility] Start: 04-02-2023 Hemoglobin A1c/Hemoglobin.total in Blood HBA1C [facility] Start: 04-01-2023 ANNUAL PCP TEAM CHRONIC DISEASE VISIT ANNUAL PCP TEAM CHRONIC DISEASE VISIT [facility] Start: 04-01-2023 BP CONTROLLED (<130/80) BP CONTROLLED (<130/80) [facility] Start: 04-01-2023 Hepatitis B screening URINE ALBUMIN:CREATININE RATIO [facility] Start: 04-01-2023 Hepatitis B surface antibody level LDL CHOLESTEROL [facility] Start: 03-09-2023 ANNUAL PCP TEAM CHRONIC DISEASE VISIT ANNUAL PCP TEAM CHRONIC DISEASE VISIT [facility] Start: 03-09-2023 BP CONTROLLED (<130/80) BP CONTROLLED (<130/80) [facility] Start: 03-08-2023 BP CONTROLLED (<130/80) BP CONTROLLED (<130/80) [facility] Start: 01-28-2023 Covid-19 Vaccine () Covid-19 Vaccine () [facility] Start: 01-28-2023 Influenza vaccination [facility] Start: 12-07-2022 End: 12-21-2022 Influenza virus A and B RNA and SARS-CoV-2 (COVID-19) N gene panel - Respiratory specimen by CRYSTAL with probe detection [facility] Work Phone: Comment on above: Expected: 12/07/2022, Expires: Start: 09-30-2022 End: 11-30-2022 Comprehensive metabolic 2000 panel - Serum or Plasma [facility] Work Phone: Comment on above: Expected: 09/30/2022, Expires: Start: 09-30-2022 End: 11-30-2022 T4/FTI/T4U [facility] Work Phone: Comment on above: Expected: 09/30/2022, Expires: Start: 09-30-2022 End: 11-30-2022 Thyrotropin [Units/volume] in Serum or Plasma [facility] Work Phone: Comment on above: Expected: 09/30/2022, Expires: Start: 09-30-2022 End: 11-30-2022 Triiodothyronine (T3) [Mass/volume] in Serum or Plasma [facility] Work Phone: Comment on above: Expected: 09/30/2022, Expires: Start: 09-29-2022 Hemoglobin A1c/Hemoglobin.total in Blood HBA1C [facility] Start: 09-24-2022 ANNUAL PCP TEAM CHRONIC DISEASE VISIT ANNUAL PCP TEAM CHRONIC DISEASE VISIT [facility] Start: 06-09-2022 End: 08-09-2022 Hemoglobin A1c in Blood HGB A1C Lab Routine Hyperglycemia Expected: 06/09/2022, Expires: 08/09/2022 [facility] Work Phone: Comment on above: Expected: 06/09/2022, Expires: Start: 05-30-2022 ADVANCE DIRECTIVE DISCUSSION ADVANCE DIRECTIVE DISCUSSION [facility] Start: 05-30-2022 DEPRESSION ASSESSMENT DEPRESSION ASSESSMENT [facility] Start: 04-14-2022 3 comp foot exam completed DIABETIC FOOT EXAM [facility] Start: 04-09-2022 End: 06-09-2022 Valproate [Mass/volume] in Serum or Plasma VALPROIC A/DEPAKENE Lab Routine Nonintractable epilepsy without status epilepticus, unspecified epilepsy type (HCC) Expected: 04/09/2022, Expires: 06/09/2022 [facility] Work Phone: Comment on above: Expected: 04/09/2022, Expires: 3 Start: 04-03-2022 End: 06-03-2022 Basic metabolic 2000 panel - Serum or Plasma BASIC METABOLIC PNL Lab Routine Elevated serum creatinine Expected: 04/03/2022, Expires: 06/03/2022 [facility] Work Phone: Comment on above: Expected: 04/03/2022, Expires: 3 Start: 04-01-2022 End: 06-01-2022 LIPID PANEL, NONFASTING [facility] Work Phone: Comment on above: Expected: 04/01/2022, Expires: 3 Start: 04-01-2022 End: 06-01-2022 Thyrotropin [Units/volume] in Serum or Plasma [facility] Work Phone: Comment on above: Expected: 04/01/2022, Expires: 3 Start: 03-25-2022 ANNUAL PCP TEAM CHRONIC DISEASE VISIT ANNUAL PCP TEAM CHRONIC DISEASE VISIT [facility] Start: 03-25-2022 BP CONTROLLED (<130/80) BP CONTROLLED (<130/80) [facility] Start: 03-25-2022 Hepatitis B surface antibody level LDL CHOLESTEROL [facility] Start: 03-09-2022 End: 05-09-2022 ALBUMIN/CREAT RATIO RND UR ALBUMIN/CREAT RATIO RND UR Lab Routine Hyperglycemia Expected: 03/09/2022, Expires: 05/09/2022 [facility] Work Phone: Comment on above: Expected: 03/09/2022, Expires: 2 Start: 03-09-2022 End: 05-09-2022 Hepatitis C virus Ab [Presence] in Serum HEP C AB IA W/CONF SCRN Lab Routine Encounter for hepatitis C screening test for low risk patient Expected: 03/09/2022, Expires: 05/09/2022 [facility] Work Phone: Comment on above: Expected: 03/09/2022, Expires: 2 Start: 03-08-2022 End: 05-08-2022 CBC W Auto Differential panel - Blood CBC + DIFF Lab Routine 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 status epilepticus, unspecified epilepsy type (HCC) Expected: 03/08/2022, Expires: 05/08/2022 [facility] Work Phone: Comment on above: Expected: 03/08/2022, Expires: 2 Start: 03-08-2022 End: 05-08-2022 Comprehensive metabolic 2000 panel - Serum or Plasma COMP METABOLIC PANEL Lab Routine 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 status epilepticus, unspecified epilepsy type (HCC) Expected: 03/08/2022, Expires: 05/08/2022 [facility] Work Phone: Comment on above: Expected: 03/08/2022, Expires: 2 Start: 03-08-2022 End: 05-08-2022 Valproate [Mass/volume] in Serum or Plasma VALPROIC A/DEPAKENE Lab Routine 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 status epilepticus, unspecified epilepsy type (HCC) Expected: 03/08/2022, Expires: 05/08/2022 [facility] Work Phone: Comment on above: Expected: 03/08/2022, Expires: 2 Start: 01-28-2022 Influenza vaccination INFLUENZA (#1) [facility] Start: 2022 ADVANCE DIRECTIVE DISCUSSION ADVANCE DIRECTIVE DISCUSSION [facility] Start: 09-24-2021 End: 11-24-2021 ALBUMIN/CREAT RATIO RND UR ALBUMIN/CREAT RATIO RND UR Lab Routine Type 2 diabetes mellitus without complication, without long-term current use of insulin (HCC) Expected: 09/24/2021, Expires: 11/24/2021 [facility] Work Phone: Comment on above: Expected: 09/24/2021, Expires: 2 Start: 09-24-2021 End: 11-24-2021 CBC W Auto Differential panel - Blood CBC + DIFF Lab Routine Type 2 diabetes mellitus without complication, without long-term current use of insulin (HCC) Expected: 09/24/2021, Expires: 11/24/2021 [facility] Work Phone: Comment on above: Expected: 09/24/2021, Expires: 2 Start: 09-24-2021 End: 11-24-2021 Comprehensive metabolic 2000 panel - Serum or Plasma COMP METABOLIC PANEL Lab Routine Type 2 diabetes mellitus without complication, without long-term current use of insulin (HCC) Expected: 09/24/2021, Expires: 11/24/2021 [facility] Work Phone: Comment on above: Expected: 09/24/2021, Expires: 2 Start: 09-24-2021 End: 11-24-2021 Hemoglobin A1c/Hemoglobin.total in Blood HGB A1C Lab Routine Type 2 diabetes mellitus without complication, without long-term current use of insulin (HCC) Expected: 09/24/2021, Expires: 11/24/2021 [facility] Work Phone: Comment on above: Expected: 09/24/2021, Expires: 2 Start: 09-24-2021 End: 11-24-2021 Hepatitis C virus Ab [Presence] in Serum HEP C AB IA W/CONF SCRN Lab Routine Need for hepatitis C screening test Expected: 09/24/2021, Expires: 11/24/2021 [facility] Work Phone: Comment on above: Expected: 09/24/2021, Expires: 2 Start: 09-24-2021 End: 11-24-2021 HIV 1+2 Ab [Presence] in Serum or Plasma by Immunoassay HIV 1 2 COMBO(AG/AB),WITH REFLEX TO DIFFERENTIATION Lab Routine Screening for HIV (human immunodeficiency virus) Expected: 09/24/2021, Expires: 11/24/2021 [facility] Work Phone: Comment on above: Expected: 09/24/2021, Expires: 2 Start: 09-24-2021 End: 11-24-2021 LIPID PANEL BASIC LIPID PANEL BASIC Lab Routine Type 2 diabetes mellitus without complication, without long-term current use of insulin (HCC) Expected: 09/24/2021, Expires: 11/24/2021 [facility] Work Phone: Comment on above: Expected: 09/24/2021, Expires: 2 Start: 09-24-2021 End: 11-24-2021 VALPROIC A/DEPAKENE VALPROIC A/DEPAKENE Lab Routine Seizures (HCC) Expected: 09/24/2021, Expires: 11/24/2021 [facility] Work Phone: Comment on above: Expected: 09/24/2021, Expires: 2 Start: 09-23-2021 Hemoglobin A1c/Hemoglobin.total in Blood HBA1C [facility] Start: 09-08-2021 End: 11-08-2021 ALBUMIN/CREAT RATIO RND UR ALBUMIN/CREAT RATIO RND UR Lab Routine Type 2 diabetes mellitus without complication, without long-term current use of insulin (HCC) Expected: 09/08/2021, Expires: 11/08/2021 [facility] Work Phone: Comment on above: Expected: 09/08/2021, Expires: 2 Start: 09-08-2021 End: 11-08-2021 Hemoglobin A1c/Hemoglobin.total in Blood HGB A1C Lab Routine Type 2 diabetes mellitus without complication, without long-term current use of insulin (HCC) Expected: 09/08/2021, Expires: 11/08/2021 [facility] Work Phone: Comment on above: Expected: 09/08/2021, Expires: 2 Start: 09-08-2021 End: 11-08-2021 SCHEDULE LAB TESTING SCHEDULE LAB TESTING Lab Routine Expected: 09/08/2021, Expires: 11/08/2021 [facility] Work Phone: Comment on above: Expected: 09/08/2021, Expires: 2 Start: 07-14-2021 COVID-19 VACCINE (3 - Booster for Moderna series) COVID-19 VACCINE (3 - Booster for Moderna series) [facility] Start: 05-30-2021 DEPRESSION ASSESSMENT DEPRESSION ASSESSMENT [facility] Start: 04-08-2021 COVID-19 VACCINE (3 - Booster for Moderna series) COVID-19 VACCINE (3 - Booster for Moderna series) [facility] Start: 04-08-2021 COVID-19 VACCINE (3 - Moderna series) COVID-19 VACCINE (3 - Moderna series) [facility] Start: 07-23-2020 PROSTATE CANCER SCREENING DISCUSSION PROSTATE CANCER SCREENING DISCUSSION [facility] Start: 03-01-2019 PNEUMOCOCCAL: 65+ (2 - PCV) PNEUMOCOCCAL: 65+ (2 - PCV) [facility] Start: 03-02-2017 Adult depression screening assessment DEPRESSION SCREENING [facility] Start: 2017 Hepatitis B Vaccine (1 of 3 - Risk 3-dose series) Hepatitis B Vaccine (1 of 3 - Risk 3-dose series) [facility] Start: 2017 RSV Vaccine (1 - 1-dose 60+ series) RSV Vaccine (1 - 1-dose 60+ series) [facility] Start: 2002 COLOGUARD (FIT-DNA) COLOGUARD (FIT-DNA) [facility] Start: 2002 Colonoscopy COLONOSCOPY [facility] Start: 2002 COLORECTAL CANCER SCREENING COLORECTAL CANCER SCREENING [facility] Start: [address] COLONOGRAPHY [facility] Start: 2002 FECAL OCCULT BLOOD FECAL OCCULT BLOOD [facility] Start: 2002 Screening for malignant neoplasm of colon [facility] Start: 2002 SIGMOIDOSCOPY SIGMOIDOSCOPY [facility] Start: 01-04-1976 Urine microalbumin profile [facility] Start: 1975 BP CONTROLLED (<130/80) BP CONTROLLED (<130/80) [facility] Start: 1975 HEPATITIS C SCREENING HEPATITIS C SCREENING [facility] Start: 1975 HIV SCREENING HIV SCREENING [facility] Start: 1967 3 comp foot exam completed DIABETIC FOOT EXAM [facility] Start: 1967 Hepatitis B screening URINE ALBUMIN:CREATININE RATIO [facility] Start: 1967 Hepatitis C antibody, confirmatory test DILATED RETINAL EXAM [facility] Start: 1962 COVID-19 VACCINE (1) COVID-19 VACCINE (1) [facility] Start: 1957 ABDOMINAL AORTIC ANEURYSM SCREENING ABDOMINAL AORTIC ANEURYSM SCREENING [facility] Start: 1957 Abdominal aortic aneurysm screening Abdominal Aortic Aneurysm Screening [facility] COLOGUARD COLOGUARD Lab Ro utine Screening for colon cancer Ordered: 09/24/2021 [facility] Work Phone: Comment on above: Ordered: 09/24/2021 COLOGUARD COLOGUARD Lab Ro utine Screening for colon cancer Ordered: 09/30/2022 [facility] Work Phone: Comment on above: Ordered: 09/30/2022 COLOGUARD COLOGUARD Lab Ro utine Screening for colon cancer Ordered: 11/22/2023 [facility] Comment on above: Ordered: 11/22/2023 End: 03-10-2023 Echocardiography ECHO Cardiology Routine 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 (HCC) Non-rheumatic tricuspid valve insufficiency Mitral valve insufficiency, unspecified etiology Primary pulmonary HTN (HCC) Enlarged thoracic aorta (HCC) 1 Occurrences starting 03/10/2022 until 03/10/2023 [facility] Work Phone: Comment on above: 1 Occurrences starting 03/10/2022 until 03/10/2023 End: 03-08-2023 EPIL EEG ROUTINE EPIL EEG ROUTINE NEUROLOGY Routine 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 status epilepticus, unspecified epilepsy type (HCC) 1 Occurrences starting 03/08/2022 until 03/08/2023 [facility] Work Phone: Comment on above: 1 Occurrences starting 03/08/2022 until 03/08/2023 End: 05-12-2023 Mra head w/o contrst material MRA BRAIN WO IVCON Radiology Routine Other symptoms and signs involving the nervous system 1 Occurrences starting 04/12/2022 until 05/12/2023 [facility] Work Phone: Comment on above: 1 Occurrences starting 04/12/2022 until 05/12/2023 End: 05-12-2023 Mra neck w/o contrst material MRA CAROTID WO IVCON Radiology Routine Other symptoms and signs involving the nervous system 1 Occurrences starting 04/12/2022 until 05/12/2023 [facility] Work Phone: Comment on above: 1 Occurrences starting 04/12/2022 until 05/12/2023 End: 04-07-2023 Mri brain brain stem w/o contrast material MRI BRAIN WO IVCON Radiology Routine 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 status epilepticus, unspecified epilepsy type (HCC) 1 Occurrences starting 03/08/2022 until 04/07/2023 [facility] Work Phone: Comment on above: 1 Occurrences starting 03/08/2022 until 04/07/2023 Patient Education ED, Migraine (Classical ) [facility] Work Phone: [facility] referral [facility] [facility] Work Phone: PFIZER-BIONTECH COVI D-19 BIVALENT BOOSTER VACCINE, AGE 12+ YR PFIZER-BIONTECH COVID-19 BIVALENT BOOSTER VACCINE, AGE 12+ YR Immunization/Injection Routine Need for COVID-19 vaccine Ordered: 03/09/2022 [facility] Work Phone: Comment on above: Ordered: 03/09/2022 End: 10-01-2023 [facility] Vascular Lab Routine Peripheral vascular disease (HCC) 1 Occurrences starting 09/30/2022 until 10/01/2023 [facility] Work Phone: Comment on above: 1 Occurrences starting 09/30/2022 until 10/01/2023 End: 12-21-2024 US Abdominal Aorta for screening US SCREENING FOR AAA Radiology Routine Screening for abdominal aortic aneurysm 1 Occurrences starting 11/22/2023 until 12/21/2024 [facility] Comment on above: 1 Occurrences starting 11/22/2023 until 12/21/2024 End: 05-01-2023 Us abdominal aorta real time screen study aaa US SCREENING FOR AAA Radiology Routine Screening for AAA (abdominal aortic aneurysm) 1 Occurrences starting 04/01/2022 until 05/01/2023 [facility] Work Phone: Comment on above: 1 Occurrences starting 04/01/2022 until 05/01/2023 End: 10-30-2023 Us abdominal aorta real time screen study aaa US SCREENING FOR AAA Radiology Routine Screening for AAA (abdominal aortic aneurysm) 1 Occurrences starting 09/30/2022 until 10/30/2023 [facility] Work Phone: Comment on above: 1 Occurrences starting 09/30/2022 until 10/30/2023 [facility] Immunizations Immunization Date Immunization Notes Care Provider Cecil alvarez 07-10-2024 influenza, high dose seasonal, preservative-free Dr. Aric Zapien MD Work Phone: [facility] 11-28-2023 COVID-19 vaccine, ag e 12+ yr, season (PFIZER-BIONTECH) CYNTHIA Max PA-C Work Phone: [facility] 05-24-2023 COVID-19 vaccine, ag e 12+ yr, season (PFIZER-BIONTECH) Aric Zapien MD Work Phone: [facility] 05-24-2023 influenza (HD-IIV4) vaccine, age 65+ yr, high dose, quadrivalent, PF (FLUZONE HIGH-DOSE) Aric Zapien MD Work Phone: [facility] 05-24-2023 influenza virus vaccine, unspecified formulation CYNTHIA Max PA-C Work Phone: [facility] 03-12-2022 influenza, high dose seasonal, preservative-free Aric Zapien MD Work Phone: [facility] 03-12-2022 influenza virus vaccine, unspecified formulation Mri (I-Stat/1.5t) Work Phone: [facility] 03-09-2022 pneumococcal Conjuga te, unspecified formulation CYNTHIA Max PA-C Work Phone: [facility] Work Phone: 03-09-2022 pneumococcal (PCV20) vaccine, 20 valent (PREVNAR 20) CYNTHIA Max PA-C Work Phone: [facility] Work Phone: 03-25-2021 influenza, injectabl e, quadrivalent, contains preservative Aric Zapien MD Work Phone: [facility] 02-11-2021 COVID-19 original vaccine, full dose, monovalent (MODERNA) Aric Zapien MD Work Phone: [facility] 01-14-2021 COVID-19 original vaccine, full dose, monovalent (MODERNA) Aric Zapien MD Work Phone: [facility] 02-29-2020 influenza, high dose seasonal, preservative-free Aric Zapien MD Work Phone: [facility] 02-29-2020 influenza, injectabl e, quadrivalent, preservative free Aric Zapien MD Work Phone: [facility] 02-29-2020 zoster vaccine recombinant Aric Zapien MD Work Phone: [facility] 10-31-2019 zoster vaccine recombinant Aric Zapien MD Work Phone: [facility] 03-31-2019 Influenza, injectabl e, Madin Brigitte Canine Kidney, preservative free, quadrivalent Aric Zapien MD Work Phone: [facility] 03-31-2019 influenza, seasonal, injectable Aric Zapien MD Work Phone: [facility] 03-01-2018 influenza, injectabl e, quadrivalent, preservative free Aric Zapien MD Work Phone: [facility] 03-01-2018 pneumococcal polysaccharide vaccine, 23 valent Aric Zapien MD Work Phone: [facility] 03-22-2017 influenza, seasonal, injectable Aric Zapien MD Work Phone: [facility] 03-22-2017 influenza, seasonal, injectable, preservative free Aric Zapien MD Work Phone: [facility] 04-29-2015 influenza, injectabl e, quadrivalent, preservative free Dr. Aric Zapien Work Phone: [facility] 04-29-2015 influenza, seasonal, injectable [facility] Work Phone: 04-29-2015 influenza, seasonal, injectable, preservative free Aric Zapien MD Work Phone: [facility] NEGATED: Highlighted row has not occurred!03-09-2022 COVID-19 booster vaccine, age 12+ yr, bivalent (PFIZER-BIONTECH) NA Mansoor PERRY Work Phone: [facility] Work Phone: Comment on above: Deferred: Postponed Payers Date Payer Category Payer Self-pay [id number] 2023 Medicare (Managed Care) [facility] [id number] 2023 Unknown [facility] AND [employer]UE [employer] ANTHEM MEDICARE ADVANTAGE O [id number] 2023-Present [phone] [address] [place] [address] [facility] [id number] 2023 Medicare [id number] 2023 Unknown [id number] 2019 Medicaid MEDICAID [facility] MEDICAID [id number] 2019-Present [phone] [address] [place] [address] Medicaid [id number] 2018 Medicare [facility] MEDICARE UH DUAL COMPLETE HMO SNP [id number] 2018-Present [phone] [address] [place] [address] Medicare [id number] 2018 Medicare [id number] 2017 Medicaid [id number] 2017 Medicaid [id number] Medicare MEDICARE PART A B [id number] Unknown [employer] [id number] Unknown [facility] MCRDUAL COMP HMO [id number] Unknown VA AUTH REQUIR ED SEE NOTE [id number] Unknown [facility] MCRDUAL COMPLETE [id number] Unknown [id number] Unknown [id number] 462 Unknown [id number] 462 Unknown [id number]. 462 Unknown [id number] 462 Unknown [id number] 462 Unknown [id number]. 462 Unknown [id number]. 462 Unknown [id number] 462 Unknown [id number]. 462 Unknown [id number] 462 Unknown [id number] 462 Unknown [id number] 462 Social History Date Type Detail Facility Start: 07-23-2015 End: 03-08-2022 Tobacco smoking status NHIS Ex-smoker [facility] Start: 07-23-2015 End: 03-08-2022 Tobacco use and exposure Smokeless tobacco non-user [facility] Start: 04-14-2021 End: 06-22-2024 Alcohol intake Not Asked [facility] Start: 07-23-2015 End: 03-08-2022 Tobacco Comment Quit in 2005 [facility] Start: 1955 Sex Assigned At Not on file [facility] Start: 02-10-2021 End: 04-01-2022 Exposure to SARS-CoV-2 (event) Not sure [facility] History of tobacco use Current smoker [facility] Start: 02-15-2022 End: 02-25-2022 Exposure to SARS-CoV-2 (event) Unable to assess [facility] Work Phone: Start: 03-06-2022 End: 06-23-2023 Tobacco smoking status ORIS Unknown if ever smoked [facility] Start: 09-15-2014 None [facility] Start: 09-15-2014 Alone;- [facility] Start: 04-27-2015 Non-smoker [facility] Start: 1955 Sex Assigned At Male [facility] Start: 09-30-2022 End: 12-07-2022 History of Social function [facility] Work Phone: Start: 09-30-2022 End: 12-07-2022 Tobacco use panel [facility] Work Phone: Adult Depression Screening Assessment 0 [facility] Work Phone: Start: 09-11-2024 Sex Male (finding) [facility] Medical Equipment Procedure Code Equipment Code Equipment Origin al Text Equipment Identifier Dates Test blood sugar (s) 1 times daily. Dx: Type 2 DM - Uncontrolled E11.65 Insulin: No [id number], [id number] Start: 04-01-2022 Comment on above: Test blood sugar(s) 1 times daily. Dx: Type 2 DM - Uncontrolled E11.65 Insulin: No Goals Date Patient Goal Desired Activity /State Functional Status Date Assessment Result Facility 07-11-2024 Functional status Chair [facility] Work Phone: 07-10-2024 Functional status Tolerates Activity Well [facility] Work Phone: 03-09-2022 Are you deaf, or do you have serious difficulty hearing No [facility] 03-09-2022 Are you blind, or do you have serious difficulty seeing, even when wearing glasses No [facility] 03-09-2022 Do you have serious difficulty walking or climbing stairs No [facility] 03-09-2022 Do you have difficul ty dressing or bathing No [facility] 03-09-2022 Because of a physica l, mental, or emotional condition, do you have difficulty doing errands alone such as visiting a physician's office or shopping No [facility] Mental Status Date Assessment Result Facility 07-11-2024 Cognitive function Voice/Name [facility] Work Phone: 03-09-2022 Because of a physica l, mental, or emotional condition, do you have serious difficulty concentrating, remembering, or making decisions Yes [facility] 03-06-2022 Cognitive function Level Of Cons ciousness Awake;Alert;Appropriate;Fol lows Commands;Responds to vocal stimuli [facility] Work Phone: Clinical Notes 06-27-2020 to 10-25-2024 Telephone Encounter - Nida Root LPN - 10/25/2024 12:23 PM EDTTelephone Encounter - Nida Root LPN - 10/25/2024 12:23 PM EDTTelephone Encounter - Felicita Bolden MA - 07/16/2024 3:25 PM EST Note Date & Type Note Facility 10-25-2024 Telephone encount er Note No show letter #2 sent to patient. [facility] 10-25-2024 Miscellaneous Notes Formattin g of this note might be different from the original. No show letter #2 sent to patient. documented in this encounter [facility] 07-16-2024 Telephone encount er Note Patient canceled his appointment on 07/12/24 with Isa Stevenson. He was discharged from [facility] on 07/11/24 DX: AFIB RVR, debility. Called and spoke with ex- Flor, his emergency contact, and she said he is in [facility] for rehab with the hopes for permanent placement afterwards. Felicita Bolden MA July 16, 2024 3:30 PM [facility] 07-16-2024 Miscellaneous Notes Formattin g of this note might be different from the original. Patient canceled his appointment on 07/12/24 with Isa Stevenson. He was discharged from [facility] on 07/11/24 DX: AFIB RVR, debility. Called and spoke with ex- Flor, his emergency contact, and she said he is in [facility] for rehab with the hopes for permanent placement afterwards. Felicita Bolden MA July 16, 2024 3:30 PM documented in this encounter [facility] 07-11-2024 Note [facility] Medical Records Department [address] [place] [address] Discharge Summary 07/11/2414 MR#: [id number] Acct: [id number] Name: REINA SULLIVAN Rep #: [id number] : 1955 69 From: Yann Ascencio DO PCP: Dr. Aric Zapien MD Status:ADM IN Location: [place] [address] Providers Date of Admission: 07/09/24 Primary Care Physician: Dr. Aric Zapien MD Reason For Visit: AFIB RVR Diagnosis Discharge Diagnosis (1) Atrial fibrillation with rapid ventricular response: Status: Acute Code(s): I48.91 - Unspecified atrial fibrillation Plan: Converted to NSR Continue home dilt and Toprol (2) Bilateral ankle pain: Status: Acute Code(s): M25.571 - Pain in right ankle and joints of right foot; M25.572 - Pain in left ankle and joints of left foot Plan: Improved I suspect that this is likely due to gout. Pain had very exquisite in his ankles bilaterally. Though this is unusual presentation with gout. X-rays are unremarkable. Uric acid 7.5 Will start him on prednisone as well as colchicine to see how he responds to that. Plan Debility: Due to his ankle pain he is unable to bear weight. PT OT evaluate and treat. Diabetes mellitus type 2: Continue with metformin. Sliding scale insulin. Check an A1c. VTE prophylaxis: Not indicated as patient is already anticoagulated apixaban. No additional workup for his elevated D-dimer likely could be related with inflammation from his ankles. CODE STATUS: Addressed with the patient. Patient wishes to be full code. Medications at Discharge Home Medications divalproex 500 mg tablet,delayed release (Depakote) 500 mg PO BID 11/15/22 metformin 500 mg tablet,extended release 24 hr 500 mg PO DAILY 11/15/22 acetaminophen 500 mg tablet 1,000 mg PO Q6H PRN Pain 11/17/22 furosemide 40 mg tablet 40 mg PO DAILY 11/17/22 blood pressure test kit-medium #1 ea 06/23/23 diltiazem HCl 240 mg capsule,extended release 24 hr 240 mg PO DAILY #90 caps 12/05/23 metoprolol succinate 50 mg tablet,extended release 24 hr (Toprol XL) 50 mg PO DAILY #90 tabs 01/04/24 apixaban 5 mg tablet 5 mg PO BID #180 tabs 05/18/24 lisinopril 2.5 mg tablet 2.5 mg PO DAILY 07/09/24 methocarbamol 500 mg tablet 500 mg PO Q8H 07/09/24 colchicine 0.6 mg capsule 0.6 mg PO BID PRN joint pain #20 caps 07/11/24 prednisone 20 mg tablet 40 mg (2 x 20 mg) PO BREAKFAST #6 tabs 07/11/24 Hospital Course Operations None Procedures 2-D Echocardiogram Weight / BMI Weight Weight: 97.6 kg Body Mass Index (BMI) 29.2 ABG / Lab / Microbiology Data 07/10/24 03:42 07/10/24 03:42 Laboratory: Laboratory Results - last 24 hr 07/09/24 08:29: Diff Path Review Reviewed 07/10/24 03:42: Hemoglobin A1c 6.0 H 07/10/24 11:19: POC Glucose 147 H 07/10/24 16:50: POC Glucose 111 H 07/10/24 21:12: POC Glucose 148 H 07/11/24 06:51: POC Glucose 105 Radiography Diagnostic Testing: Radiology Impression Venous Doppler Study 07/09/24 09:30 Interpretation Summary Deep veins of the bilateral lower extremities are patent and compressible segmentally. There is no evidence of bilateral lower extremity deep vein thrombosis. The bilateral great saphenous veins appear patent and compressible segmentally. Ordering Physician: Priscilla Reynaga Referring Physician: Aric Zapien Performed By: Damaris Dudley RVT Echocardiogram 07/09/24 16:36 Interpretation Summary The estimated ejection fraction is 55 %. No evidence for diastolic dysfunction. The left atrium is severely enlarged. Mild (1+) mitral valve insufficiency. Ordering Physician: Yann Ascencio Referring Physician: Aric Zapien Performed By: Ann-Marie Cao, CASANDRACS, RVT D/C Instructions Discharge Diet: Low fat / Low cholesterol DC O2, CPAP, BIPAP Needs Home O2 Discharge instructions: No Meaningful Use Info Meaningful Use Meaningful Use Diagnoses (Choose all that apply): None applicable Ischemic Stroke Statin Dosing Therapy Reference: STATIN DOSE THERAPY REFERENCE: * Patients > 75 years receive moderate or high dose statin therapy. * Patients 75 years or YOUNGER should receive HIGH intensity statin dose unless contraindicated. You will be required to document reason for non-treatment if statin daily dose does not meet guidelines. HIGH DOSE STATIN THERAPY DAILY Atorvastatin > than or = to 40 mg Rosuvastatin > than or = to 20 mg Amlodipine + Atorvastatin > than or = to 2.5/40 mg Ezetimibe + Simvastatin 10/80 mg Simvastatin 80mg (more content not included)... [facility] 07-09-2024 Evaluation note Diagnosis Onset Date Resolution Atrial fibrillation with rapid ventricular response resolved July 09 10:34am Bilateral ankle pain resolved 2024 10:34am Bilateral leg and foot pain resolved July 09 10:34am [facility] Work Phone: [phone] 978-915201-28-2025 Telephone encounter Note* Telephone Encounter - Rodolfo Werner - 06/26/2024 8:25 AM EST I left a vm for patient to call when available to schedule an appt fro his fracture referral in hischart [facility]01-28-2025 Miscellaneous Notes* Telephone Encounter - Rodolfo Werner - 06/26/2024 8:25 AM EST I left a vm for patient to call when available to schedule an appt fro his fracture referral in hischart [facility] Telephone encounter Note * Telephone Encounter - Felicita Bolden MA - 06/25/2024 11:51 AM EST Spoke with ex , Halima, and she was made aware of results and provider message. She was also given the number to call and schedule his appointment for spine. She verbalizes understanding. Felicita Bolden MA June 25, 2024 11:52 AM [facility]01-27-2025 Miscellaneous Notes* Telephone Encounter - Felicita Bolden MA - 06/25/2024 11:51 AM EST Spoke with ex , Halima, and she was made aware of results and provider message. She was also given the number to call and schedule his appointment for spine. She verbalizes understanding. Felicita Bolden MA June 25, 2024 11:52 AM * Telephone Encounter - eMcca Summers - 06/25/2024 10:58 AM EST Patient returned missed call and received the provider's message. He voiced understanding. Patient requests all medical updates be discussed with his ex-spouse, Halima Sullivan. 06/16/24 telephone encounter routed to center for back, neck, and spine pool again for schedulingconsultation with orthopaedic hse specialist. * Telephone Encounter - Karla Ferguson MA - 06/25/2024 10:47 AM EST Message left for pt to call back for results. Karla Ferguson MA * Telephone Encounter - Florinda Stevenson APRN.CNP - 06/25/2024 7:55 AM EST Please let patient know that he has some mild effects of diabetes on his kidneys.we do need to start him on lisinopril 2.5 mg daily to protect his kidneys from diabetes. If you say that this medicineis for blood pressure but that is not why I want him to take it. Also, please facilitate consult to spine surgery. He does have a compression fracture. [facility] Telephone encounter Note * Telephone Encounter - Mecca Summers - 06/25/2024 10:58 AM EST Patient returned missed call and received the provider's message. He voiced understanding. Patient requests all medical updates be discussed with his ex-spouse, Halima Sullivan. 06/16/24 telephone encounter routed to center for back, neck, and spine pool again for schedulingconsultation with orthopaedic hse specialist. [facility]01-27-2025 Telephone encounter Note* Telephone Encounter - Karla Ferguson MA - 06/25/2024 10:47 AM EST Message left for pt to call back for results. Karla Ferguson MA [facility]01-27-2025 Telephone encounter Note* Telephone Encounter - Florinda Stevenson APRN.CNP - 06/25/2024 7:55 AM EST Please let patient know that he has some mild effects of diabetes on his kidneys.we do need to start him on lisinopril 2.5 mg daily to protect his kidneys from diabetes. If you say that this medicineis for blood pressure but that is not why I want him to take it. Also, please facilitate consult to spine surgery. He does have a compression fracture. [facility]01-24-2025 Telephone encounter Note* Telephone Encounter - Florinda Stevenson APRN.CNP - 06/22/2024 5:03 PM EST Yes. An orthopedic hse specialist. Does not need surgery but they can evaluate for kyphoplasty- setting the compression if needed [facility]01-24-2025 Miscellaneous Notes* Telephone Encounter - Florinda Stevenson APRN.CNP - 06/22/2024 5:03 PM EST Yes. An orthopedic hse specialist. Does not need surgery but they can evaluate for kyphoplasty- setting the compression if needed * Telephone Encounter - Rebecca Dumas RN - 06/22/2024 4:36 PM EST Asking for provider to clarify pt's order for Consult [facility]. Does patient need to see a surgeon? Please advise so that [facility] staff can schedule patient appropriately. Rebecca Dumas RN [facility] Miscellaneous Notes* Telephone Encounter - Mecca Summers - 06/22/2024 4:41 PM EST [facility] unauthorized to schedule for this department. Patient notified that JARRETT routed referralto the appropriate department and their facility will contact patient for scheduling. Patient requests all future medical information and appointment scheduling be disclosed to ex-spouse, Flor Sullivan, awa. * Telephone Encounter - Felicita Bolden MA - 06/22/2024 4:29 PM EST Patient notified of results and transferred to care team coordinator scheduler * Telephone Encounter - Florinda Stevenson APRN.KVNG - 06/22/2024 3:34 PM EST Please let patient know that he has a lumbar 1 compression fracture of the endplate. I am going to send him to a spine surgeon to review. Please facilitate primaryscheduling * Telephone Encounter - Felicita Bolden MA - 06/19/2024 11:20 AM EST Please call pt and ask if pt knows he is scheduled at [facility] * Telephone Encounter - Aric Zapien MD - 06/19/2024 10:50 AM EST Please call before (I suspect was put in wrong place) * Telephone Encounter - Aric Zapien MD - 06/16/2024 8:47 AM EST Schedule to see me at [facility] in person on 06/21/24. Please make sure they are aware apptthey scheduled is at that office and not [place] documented [facility] Telephone encounter Note * Telephone Encounter - Mecca Summers - 06/22/2024 4:41 PM EST [facility] unauthorized to schedule for this department. Patient notified that JARRETT routed referralto the appropriate department and their facility will contact patient for scheduling. Patient requests all future medical information and appointment scheduling be disclosed to ex-spouse, Flor Sullivan, only. [facility]01-24-2025 Telephone encounter Note* Telephone Encounter - Rebecca Dumas RN - 06/22/2024 4:36 PM EST Asking for provider to clarify pt's order for Consult [facility]. Does patient need to see a surgeon? Please advise so that [facility] staff can schedule patient appropriately. Rebecca Dumas RN [facility]01-24-2025 Telephone encounter Note* Telephone Encounter - Felicita Bolden MA - 06/22/2024 4:29 PM EST Patient notified of results and transferred to care team coordinator scheduler [facility]01-24-2025 Telephone encounter Note* Telephone Encounter - Florinda Stevenson APRN.CNP - 06/22/2024 3:34 PM EST Please let patient know that he has a lumbar 1 compression fracture of the endplate. I am going to send him to a spine surgeon to review. Please facilitate primaryscheduling [facility]01-24-2025 NoteHNO ID: [id number] Author: EKATERINA BELTRE Tech Service: ? Author Type: Technologist Type: Progress Notes Filed: 06/22/2024 14:53 Note Text: Radiology Service Progress Note PATIENT NAME: Reina Sullivan DATE OF SERVICE: June 22, 2024 TIME: 2:52 PM PATIENT IDENTITY VERIFICATION COMPLETED USING TWO (2) IDENTIFIERS: Name and Date of confirmed by patient verbally. FALL SCREENING: Has the patient had 2 falls in the last year or 1 fall with injury or currently using an Ambulatory Assistive Device (Walker, Cane, Wheelchair, Crutches, etc.)? Yes, Patient High Risk for Falls What interventions were put in place to prevent falls during this visit? Offered Assistance with Transfers/Clothing, Instructed Patient to Remain Seated (Not on Exam Table) Until Exam, and Increased Observations by Caregivers PATIENT GENDER DATA: Assigned male at PATIENT RELEVANT IMPLANT DATA REVIEWED: Not Applicable PATIENT PRESENTS WITH AN IMPLANTABLE OR ATTACHED ADMINISTRATION INTERNSHIP: No RADIOLOGY DEPARTMENT: General X-ray: Exam(s) Completed: Spine X-Ray(s): Lumbar AP / LAT / L5-S1 PERIPHERAL IV DATA: Not applicable SIGNED BY: Rosa Wakefield June 22, 2024 2:52 [facility]01-24-2025 Instructions* Patient Instructions* Florinda Stevenson APRN.CNP - 06/22/2024 1:59 PM EST 1) Check blood and urine in lab 2) Xray lumbar spine 3) Methocarbamol 500 mg 3 x day as needed for low back pain 4) Follow up in 2 weeks documented in [facility]Do[facility]01-[facility]-2025 NoteHNO ID: [id number] Author: FLORINDA STEVENSON APRN.KVNG Service: ? Author Type: Physician Type: Progress Notes Filed: 06/22/2024 14:00 Note Text: This is a 69 year old male who presents today with: Patient presents with: Fall: Slipped on ice Back Pain HISTORY OF PRESENT ILLNESS: Reina Sullivan is a 69 year old male. Patient presents with: Fall: Slipped on ice Back Pain Slipped on the ice. Fell striking his back. Unable to lie down in bed. Sleeping in recliner chair. Pain is middle of lumbar region down into sacrum. No sciatica. Doesn't remember what day. No records available No loss of bowel or bladder function. Didn't go to ER because hurt too bad to move. Hurts to sit a little bit. Reclined it doesn't hurt. Hurts to walk a little. 9.5/10- sharp pain PAST MEDICAL HISTORY: PAST MEDICAL HISTORY Diagnosis Date Atrial fibrillation (HCC) Dr. 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 Huston TBI (traumatic brain injury) ([facility]) 2 times PAST SURGICAL HISTORY Procedure Laterality Date LEFT HEART CATH,PERCUTANEOUS 09/08/2015 Dr. James, [place]: cardiac cath: no disease EF 60%, 2+ MR PAST SURGICAL HISTORY OF collarbone ALLERGIES Dye MEDICATIONS Current Outpatient Medications Medication Sig divalproex DR (DEPAKOTE) 500 mg EC tablet Take 1 tablet by mouth two times a day. metFORMIN ER (GLUCOPHAGE XR) 500 mg 24 hr tablet Take 1 tablet by mouth daily with breakfast. metoprolol succinate ER (TOPROL XL) 50 mg 24 hr tablet Take 1 tablet by mouth once daily. furosemide (LASIX) 40 mg tablet Take 1 tablet by mouth once daily. apixaban (ELIQUIS) 5 mg tab tab(s) Take 1 tablet by mouth twice daily. Lancets lancets Test blood sugar(s) 1 times daily. Dx: Type 2 DM - Uncontrolled E11.65 Insulin: No blood sugar diagnostic (BLOOD GLUCOSE TEST) test strip Test blood sugar(s) 1 times daily. Dx: Type 2 DM - Uncontrolled E11.65 Insulin: No No current facility-administered medications for this visit. FAMILY HISTORY Problem Relation Age of Onset Alzheimer's Disease Mother Breast Cancer Mother other (a fib) Mother Hypertension Father Hyperlipidemia Father other (A fib) Father other (polio) Father Heart Brother Breast Cancer Sister Seizures Son other (austism) Son other (Brain) Son Social History Tobacco Use Smoking status: Former Smokeless tobacco: Never Tobacco comments: Quit in 2005 REVIEW OF SYSTEMS GENERAL: Uncertain weight loss, + malaise, no fevers/chills HEENT: Negative for frequent or significant headaches, No changes in hearing or vision. RESPIRATORY: Negative for cough, hemoptysis, wheezing, dyspnea or shortness of breath CARDIOVASCULAR: Negative for chest pain, leg swelling, orthopnea, or palpitations GI: No nausea, vomiting, or diarrhea/constipation. No hematochezia/melena. : No history of dysuria, frequency or incontinence MUSCULOSKELETAL: Lower lumbar pain SKIN: No bruising that he knows of EXAM: BP 118/76 Pulse 88 Temp 36.6 ?C (97.8 ?F) SpO2 99% PHYSICAL EXAM: Physical Exam Vitals reviewed. Constitutional: Appearance: Normal appearance. Cardiovascular: Rate and Rhythm: Normal rate and regular rhythm. Pulses: Normal pulses. Heart sounds: Normal heart sounds. Pulmonary: Effort: Pulmonary effort is normal. Breath sounds: Normal breath sounds. Musculoskeletal: Right lower leg: No edema. Left lower leg: No edema. Comments: Unable to palpate lumbar pain at or along either side of lumbar spine No ecchymosis or swelling Distal sensation intact Strength in lower leg 4/4 Unable to stand straight. + Leg lift noam. Modified d/t fear of movement Not able to extend or move side to side- walking with a cane Skin: General: Skin is warm and dry. Neurological: Mental Status: He is alert and oriented to person, place, and time. LABS: consolidate labs for follow up since we need to check for blood loss- pt. On DOAC ASSESSMENT/PLAN: 1. Type 2 diabetes mellitus without complication, without long-term current use of insulin (HCC) - ICD9: 250.00, ICD10: E11.9 (primary diagnosis) - Control undetermined, due for labs - Continue current medications - HEMOGLOBIN A1C - ALBUMIN/CREATININE RATIO, URINE - COMPREHENSIVE METABOLIC PANEL - MAGNESIUM 2. Fall, initial encounter - ICD9: E888.9, ICD10: W19.XXXA Concern for compression FX - COMPLETE BLOOD COUNT AND DIFFERENTIAL - IRON AND TIBC - FERRITIN - XR LUMBAR GENERAL 3V AP/LAT/L5-S1 - URINALYSIS, REFLEX MICROSCOPIC - Methocarbamol 500 mg 3 x day as needed 3. Screening for lipid disorders - ICD9: V77.91, ICD10: Z13.220 Check labs for routine appt. - LIPID PANEL, NONFASTING 4. Acute low back pain without sciatica, unspecified back pain laterality - ICD9: 724.2, ICD10: M54.50 Concern for compressi (more content not included)...[facility] 06-22-2024 History of Present illness Narrative* Florinda Stevenson APRN.OUTSIDE PROPERTY AGENT - 06/22/2024 1:35 PM EST This is a 69 year old male who presents today with: Patient presents with: Fall: Slipped on ice Back Pain HISTORY OF PRESENT ILLNESS: Reina Sullivan is a 69 year old male. Patient presents with: Fall: Slipped on ice Back Pain Slipped on the ice. Fell striking his back. Unable to lie down in bed. Sleeping in recliner chair. Pain is middle of lumbar region down into sacrum. No sciatica. Doesn't remember what day. No records available No loss of bowel or bladder function. Didn't go to ER because hurt too bad to move. Hurts to sit a little bit. Reclined it doesn't hurt. Hurts to walk a little. 9.5/10- sharp pain PAST MEDICAL HISTORY: PAST MEDICAL HISTORY Diagnosis Date Atrial fibrillation ([facility]) Dr. 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 Huston TBI (traumatic brain injury) ([facility]) 2 times PAST SURGICAL HISTORY Procedure Laterality Date LEFT HEART CATH,PERCUTANEOUS 09/08/2015 Mel Dewitt: cardiac cath: no disease EF 60%, 2+ MR PAST SURGICAL HISTORY OF collarbone ALLERGIES Dye MEDICATIONS Current Outpatient Medications Medication Sig divalproex DR (DEPAKOTE) 500 mg EC tablet Take 1 tablet by mouth two times a day. metFORMIN ER (GLUCOPHAGE XR) 500 mg 24 hr tablet Take 1 tablet by mouth daily with breakfast. metoprolol succinate ER (TOPROL XL) 50 mg 24 hr tablet Take 1 tablet by mouth once daily. furosemide (LASIX) 40 mg tablet Take 1 tablet by mouth once daily. apixaban (ELIQUIS) 5 mg tab tab(s) Take 1 tablet by mouth twice daily. Lancets lancets Test blood sugar(s) 1 times daily. Dx: Type 2 DM - Uncontrolled E11.65 Insulin: No blood sugar diagnostic (BLOOD GLUCOSE TEST) test strip Test blood sugar(s) 1 times daily. Dx: Type 2 DM - Uncontrolled E11.65 Insulin: No No current facility-administered medications for this visit. FAMILY HISTORY Problem Relation Age of Onset Alzheimer's Disease Mother Breast Cancer Mother other (a fib) Mother Hypertension Father Hyperlipidemia Father other (A fib) Father other (polio) Father Heart Brother Breast Cancer Sister Seizures Son other (austism) Son other (Brain) Son Social History Tobacco Use Smoking status: Former Smokeless tobacco: Never Tobacco comments: Quit in 2005 REVIEW OF SYSTEMS GENERAL: Uncertain weight loss, + malaise, no fevers/chills HEENT: Negative for frequent or significant headaches, No changes in hearing or vision. RESPIRATORY: Negative for cough, hemoptysis, wheezing, dyspnea or shortness of breath CARDIOVASCULAR: Negative for chest pain, leg swelling, orthopnea, or palpitations GI: No nausea, vomiting, or diarrhea/constipation. No hematochezia/melena. : No history of dysuria, frequency or incontinence MUSCULOSKELETAL: Lower lumbar pain SKIN: No bruising that he knows of EXAM: BP 118/76 Pulse 88 Temp 36.6 C (97.8 F) SpO2 99% PHYSICAL EXAM: Physical Exam Vitals reviewed. Constitutional: Appearance: Normal appearance. Cardiovascular: Rate and Rhythm: Normal rate and regular rhythm. Pulses: Normal pulses. Heart sounds: Normal heart sounds. Pulmonary: Effort: Pulmonary effort is normal. Breath sounds: Normal breath sounds. Musculoskeletal: Right lower leg: No edema. Left lower leg: No edema. Comments: Unable to palpate lumbar pain at or along either side of lumbar spine No ecchymosis or swelling Distal sensation intact Strength in lower leg 4/4 Unable to stand straight. + Leg lift noam. Modified d/t fear of movement Not able to extend or move side to side- walking with a cane Skin: General: Skin is warm and dry. Neurological: Mental Status: He is alert and oriented to person, place, and time. LABS: consolidate labs for follow up since we need to check for blood loss- pt. On DOAC ASSESSMENT/PLAN: 1. Type 2 diabetes mellitus without complication, without long-term current use of insulin ([facility]) - ICD9: 250.00, ICD10: E11.9 (primary diagnosis) - Control undetermined, due for labs - Continue current medications - HEMOGLOBIN A1C - ALBUMIN/CREATININE RATIO, URINE - COMPREHENSIVE METABOLIC PANEL - MAGNESIUM 2. Fall, initial encounter - ICD9: E888.9, ICD10: W19.XXXA Concern for compression FX - COMPLETE BLOOD COUNT AND DIFFERENTIAL - IRON AND TIBC - FERRITIN - XR LUMBAR GENERAL 3V AP/LAT/L5-S1 - URINALYSIS, REFLEX MICROSCOPIC - Methocarbamol 500 mg 3 x day as needed 3. Screening for lipid disorders - ICD9: V77.91, ICD10: Z13.220 Check labs for routine appt. - LIPID PANEL, NONFASTING 4. Acute low back pain without sciatica, unspecified back pain laterality - ICD9: 724.2, ICD10: M54.50 Concern for compression FX or retroperitoneal bleed with DOAC - Treat with methocarbamol as above - Check Xray Discussed treatment plan and patient voices understanding. Patient's questions answered appropriately. Medications and potential side effects were discussed and patient voices understanding. Return to the office as scheduled or as needed for worsening/no improvement. Florinda Stevenson APRN.OUTSIDE PROPERTY AGENT [facility] Telephone encounter Note * Telephone Encounter - Felicita Bolden MA - 06/19/2024 11:20 AM EST Please call pt and ask if pt knows he is scheduled at [facility] Telephone encounter Note* Telephone Encounter - Aric Zapien MD - 06/19/2024 10:50 AM EST Please call before (I suspect was put in wrong place) [facility]01-18-[facility]25 Telephone encounter Note* Telephone Encounter - Aric Zapien MD - 06/16/2024 8:47 AM EST Schedule to see me at [facility] in person on 06/21/24. Please make sure they are aware apptthey scheduled is at that office and not [facility]01[facility] Telephone encounter Note* Telephone Encounter - Tatum Lulu Bryant - 06/14/2024 10:31 AM EST Patient called to request medication. He stated that he will need the medication by tomorrow, 06/15/24. Scheduled patient due to he fell on ice, but he declined any other days/times/providers. He will only see Dr. Zapien. He stated he can wait. He can only come on a . Scheduled at his request on 06/21/24. [facility] Miscellaneous Notes* Telephone Encounter - Tatum Lulu Bryant - 06/14/2024 10:31 AM EST Patient called to request medication. He stated that he will need the medication by tomorrow, 06/15/24. Scheduled patient due to he fell on ice, but he declined any other days/times/providers. He will only see Dr. Zapien. He stated he can wait. He can only come on a . Scheduled at his request on 06/21/24. * Telephone Encounter - Courtney Crane - 06/13/2024 9:08 AM EST Prescription Refill Information The patient has been identified by name and date of : Yes Caregiver verified no other encounters exist for this prescription request: Yes Caregiver confirmed with patient/requestor that no other refills are due, in the near future, with this provider at this time: Yes The last office visit in the department: 11/22/23 Does the patient have a future office visit with this provider/department: NO Requested Prescriptions Pending Prescriptions Disp Refills divalproex DR (DEPAKOTE) 500 mg EC tablet 180 tablet 1 Sig: Take 1 tablet by mouth two times a day. Courtney Crane June 13, 2024 9:08 AM documented in this encounterDo[facility]01-15-2025 Telephone encounter Note * Telephone Encounter - Courtney Crane - 06/13/2024 9:08 AM EST Prescription Refill Information The patient has been identified by name and date of : Yes Caregiver verified no other encounters exist for this prescription request: Yes Caregiver confirmed with patient/requestor that no other refills are due, in the near future, with this provider at this time: Yes The last office visit in the department: 11/22/23 Does the patient have a future office visit with this provider/department: NO Requested Prescriptions Pending Prescriptions Disp Refills divalproex DR (DEPAKOTE) 500 mg EC tablet 180 tablet 1 Sig: Take 1 tablet by mouth two times a day. Courtney Crane June 13, 2024 9:08 AM [facility]12[facility]24 NoteHNO ID: [id number] Author: MAYURI PEREZ MA Service: ? Author Type: Technology Engineer Type: Progress Notes Filed: 05/28/2024 19:08 Note Text: POPULATION HEALTH NAVIGATION OUTREACH Action/FYI [facility] OUTREACH Reason for Outreach Suspected Conditions Patient Contacted: Unable or unnecessary to reach patient: Left message Navigation Signature: Mayuri Perez MA May 28, 2024 7:07 [facility]12-30-2024 History of Present illness Narrative* Mayuri Perez MA - 05/28/2024 7:07 PM EST POPULATION HEALTH NAVIGATION OUTREACH Action/FYI MCAIP OUTREACH Reason for Outreach Suspected Conditions Patient Contacted: Unable or unnecessary to reach patient: Left message Navigation Signature: Mayuri Perez MA May 28, 2024 7:07 PM documented in this encounterDoctors Hospital12-30-2024 NotePatient Outreach (NETNAV) REINA SULLIVAN ([id number]) 1955 M Date Time Provider Department 05/28/24 MAYURI PEREZ During your visit today, we recorded the following information about you: Mayuri Perez MA 05/28/2024 7:08 PM Signed POPULATION HEALTH NAVIGATION OUTREACH Action/FYI [facility] OUTREACH Reason for Outreach Suspected Conditions Patient Contacted: Unable or unnecessary to reach patient: Left message Navigation Signature: Mayuri PerezROSS May 28, 2024 7:07 PM Allergies As of Date: 05/28/2024 Noted Allergy Reaction DYE 03/02/2016 14 - Other: See Comments Comments: used for heart cath Date Reviewed: 11/22/2023 Reviewed by: Florinda Flores LPN - Fully Assessed Reason for Visit: Population Health Navigation Outreach [3910] Cmt: [facility] OUTREACH Prescriptions as of 05/28/2024 - divalproex DR (DEPAKOTE) 500 mg EC tablet Take 1 tablet by mouth two times a day. - metFORMIN ER (GLUCOPHAGE XR) 500 mg 24 hr tablet Take 1 tablet by mouth daily with breakfast. - metoprolol succinate ER (TOPROL XL) 50 mg 24 hr tablet Take 1 tablet by mouth once daily. - furosemide (LASIX) 40 mg tablet Take 1 tablet by mouth once daily. - Lancets lancets Test blood sugar(s) 1 times daily. Dx: Type 2 DM - Uncontrolled E11.65 Insulin: No - blood sugar diagnostic (BLOOD GLUCOSE TEST) test strip Test blood sugar(s) 1 times daily. Dx: Type 2 DM - Uncontrolled E11.65 Insulin: No - apixaban (ELIQUIS) 5 mg tab tab(s) Take 1 tablet by mouth twice daily. Problem List As Of Date 05/28/2024 Noted Resolved 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 (HCC) [I48.21] HTN (hypertension) [I10] Hyperlipidemia [E78.5] Seizures (HCC) [R56.9] Hyperglycemia [R73.9] 03/23/2017 03/26/2021 Primary pulmonary HTN (HCC) [I27.0] 07/26/2017 Mitral regurgitation [I34.0] 07/26/2017 Non-rheumatic tricuspid valve insufficiency [I3*07/26/2017 Enlarged thoracic aorta (HCC) [I77.89] 07/26/2017 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 status epilepticus*06/27/2020 03/25/2021 Type 2 diabetes mellitus without complication, *03/26/2021 Encounter for hepatitis C screening test for lo*03/09/2022 09/30/2022 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/09/2022 Adjustment disorder with mixed emotional featur*09/30/2022 Allergy [T78.40XA] 09/30/2022 Anxiety state [F41.1] 09/30/2022 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 Encounter for issue of repeat prescription [Z76*09/30/2022 09/30/2022 Fracture of skull (HCC) [S02.91XA] 09/30/2022 09/30/2022 Headache [R51.9] 09/30/2022 09/30/2022 High serum creatinine [R79.89] 09/30/2022 09/30/2022 Intracranial injury of other and unspecified na*09/30/2022 Left atrial enlargement [I51.7] 09/30/2022 longterm current use of 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 *09/30/2022 Migraine headache [G43.909] 09/30/2022 Need for Streptococcus pneumoniae vaccination [*09/30/2022 Neoplasm of uncertain behavior of skin [D48.5] 09/30/2022 Noncompliance with treatment [Z91.199] 09/30/2022 Other polyp of sinus [J33.8] 09/30/2022 Pulmonary hypertension (HCC) [I27.20] 09/30/2022 Syncope and collapse [R55] 09/30/2022 09/30/2022 Undiagnosed cardiac murmurs [R01.1] 09/30/2022 09/30/2022 History of skull fracture [Z87.81] 09/30/2022 Encounter Status:Closed by MAYURI PEREZ on 05/28/24[facility] History of Present illness Narrative* Edward Pleitez, [facility] - 04/18/2024 11:07 AM EST Pt chart reviewed as part of population health initiative focused on statin use in patients with diabetes (DM) or cardiovascular disease (CVD). Reina Sullivan is identified through data from [employer] (insurer) as a potential candidate for statin therapy with no prescriptions claims processed for a statin medication in this calendar year. Chart Review The following case components were reviewed for current or historic statin use: Confirmed diabetes and or CVD: Yes Current/Active med list includes a statin: No IF YES, Last order date and quantity: NA Last pharmacy fill date: Per Epic: NA, Per pharmacy phone call: NA IF NO, reason identified (contraindication, intolerance, exclusion, etc.): patient previously prescribed atorvastatin but it was removed from med list in 2021, no clear documentation as to why. PMH indicates patient has hx of CVA and OH, should be on high-intensity statin for secondary prevention. Patient scheduled to see PCP on 05/25. ALLERGIES Allergen Reactions Dye Other: See Comments used for heart cath PAST MEDICAL HISTORY Diagnosis Date Atrial fibrillation ([facility]) Dr. 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 Huston TBI (traumatic brain injury) ([facility]) 2 times Cholesterol, Total (mg/dL) Date Value 05/24/2023 156 04/16/2019 108 Total Cholesterol, Nonfasting (mg/dL) Date Value 03/25/2021 181 HDL Cholesterol (mg/dL) Date Value 05/24/2023 46 04/16/2019 37 HDL Cholesterol, Nonfasting (mg/dL) Date Value 03/25/2021 37 LDL Cholesterol (mg/dL) Date Value 05/24/2023 89 04/16/2019 48 LDL Cholesterol, Nonfasting (mg/dL) Date Value 04/01/2022 87 03/25/2021 99 Triglyceride (mg/dL) Date Value 05/24/2023 104 04/16/2019 115 Triglycerides, Nonfasting (mg/dL) Date Value 03/25/2021 223 No reason identified. Will reach out to PCP to discuss initiating a statin at upcoming visit. Outcome of review: Pending outreach to provider Edward Pleitez RPh documented in this encounterDoctors Hospital11-20-2024 NoteHNO ID: [id number] Author: EDWARD PLEITEZ RPh Service: ? Author Type: Pharmacist Type: Progress Notes Filed: 04/18/2024 11:12 Note Text: Pt chart reviewed as part of population health initiative focused on statin use in patients with diabetes (DM) or cardiovascular disease (CVD). Reina Sullivan is identified through data from [employer] (insurer) as a potential candidate for statin therapy with no prescriptions claims processed for a statin medication in this calendar year. Chart Review The following case components were reviewed for current or historic statin use: Confirmed diabetes and or CVD: Yes Current/Active med list includes a statin: No IF YES, Last order date and quantity: NA Last pharmacy fill date: Per Epic: NA, Per pharmacy phone call: NA IF NO, reason identified (contraindication, intolerance, exclusion, etc.): patient previously prescribed atorvastatin but it was removed from med list in 2021, no clear documentation as to why. PMH indicates patient has hx of CVA and OH, should be on high-intensity statin for secondary prevention. Patient scheduled to see PCP on 05/25. ALLERGIES Allergen Reactions Dye Other: See Comments used for heart cath PAST MEDICAL HISTORY Diagnosis Date Atrial fibrillation (HCC) Dr. 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 Huston TBI (traumatic brain injury) ([facility]) 2 times Cholesterol, Total (mg/dL) Date Value 05/24/2023 156 04/16/2019 108 Total Cholesterol, Nonfasting (mg/dL) Date Value 03/25/2021 181 HDL Cholesterol (mg/dL) Date Value 05/24/2023 46 04/16/2019 37 HDL Cholesterol, Nonfasting (mg/dL) Date Value 03/25/2021 37 LDL Cholesterol (mg/dL) Date Value 05/24/2023 89 04/16/2019 48 LDL Cholesterol, Nonfasting (mg/dL) Date Value 04/01/2022 87 03/25/2021 99 Triglyceride (mg/dL) Date Value 05/24/2023 104 04/16/2019 115 Triglycerides, Nonfasting (mg/dL) Date Value 03/25/2021 223 No reason identified. Will reach out to PCP to discuss initiating a statin at upcoming visit. Outcome of review: Pending outreach to provider Edward Pleitez RPMcC[facility]24 NoteHNO ID: [id number] Author: EDWARD PLEITEZ RP Service: ? Author Type: Pharmacist Type: Progress Notes Filed: 05/28/2024 15:55 Note Text: Appears patient was a no-show to PCP visit on 05/25. Edward Pleitez PharmD, BCPS Primary Care Clinical PharmacistTrinity Health System11-20-2024 NotePatient Outreach (PHMEWO) REINA [id number]) 1955 M Date Time Provider Department 04/18/24 EDWARD PLEITEZ PHMEWAdán During your visit today, we recorded the following information about you: Lyman, Edward [facility] 04/18/2024 11:12 AM Signed Pt chart reviewed as part of population health initiative focused on statin use in patients with diabetes (DM) or cardiovascular disease (CVD). Renia Sullivan is identified through data from [employer] (insurer) as a potential candidate for statin therapy with no prescriptions claims processed for a statin medication in this calendar year. Chart Review The following case components were reviewed for current or historic statin use: Confirmed diabetes and or CVD: Yes Current/Active med list includes a statin: No IF YES, Last order date and quantity: NA Last pharmacy fill date: Per Epic: NA, Per pharmacy phone call: NA IF NO, reason identified (contraindication, intolerance, exclusion, etc.): patient previously prescribed atorvastatin but it was removed from med list in 2021, no clear documentation as to why. PMH indicates patient has hx of CVA and OH, should be on high-intensity statin for secondary prevention. Patient scheduled to see PCP on 05/25. ALLERGIES Allergen Reactions Dye Other: See Comments used for heart cath PAST MEDICAL HISTORY Diagnosis Date Atrial fibrillation ([facility]) Dr. 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 Huston TBI (traumatic brain injury) ([facility]) 2 times Cholesterol, Total (mg/dL) Date Value 05/24/2023 156 04/16/2019 108 Total Cholesterol, Nonfasting (mg/dL) Date Value 03/25/2021 181 HDL Cholesterol (mg/dL) Date Value 05/24/2023 46 04/16/2019 37 HDL Cholesterol, Nonfasting (mg/dL) Date Value 03/25/2021 37 LDL Cholesterol (mg/dL) Date Value 05/24/2023 89 04/16/2019 48 LDL Cholesterol, Nonfasting (mg/dL) Date Value 04/01/2022 87 03/25/2021 99 Triglyceride (mg/dL) Date Value 05/24/2023 104 04/16/2019 115 Triglycerides, Nonfasting (mg/dL) Date Value 03/25/2021 223 No reason identified. Will reach out to PCP to discuss initiating a statin at upcoming visit. Outcome of review: Pending outreach to provider Edward Pleitez [facility] Edward Pleitez RPh 05/28/2024 3:55 PM Signed Appears patient was a no-show to PCP visit on 05/25. Albert StephensD, BCPS Primary Care Clinical Pharmacist Allergies As of Date: 04/18/2024 Noted Allergy Reaction DYE 03/02/2016 14 - Other: See Comments Comments: used for heart cath Date Reviewed: 11/22/2023 Reviewed by: Florinda Flores LPN - Fully Assessed Prescriptions as of 05/28/2024 - divalproex DR (DEPAKOTE) 500 mg EC tablet Take 1 tablet by mouth two times a day. - metFORMIN ER (GLUCOPHAGE XR) 500 mg 24 hr tablet Take 1 tablet by mouth daily with breakfast. - metoprolol succinate ER (TOPROL XL) 50 mg 24 hr tablet Take 1 tablet by mouth once daily. - furosemide (LASIX) 40 mg tablet Take 1 tablet by mouth once daily. - Lancets lancets Test blood sugar(s) 1 times daily. Dx: Type 2 DM - Uncontrolled E11.65 Insulin: No - blood sugar diagnostic (BLOOD GLUCOSE TEST) test strip Test blood sugar(s) 1 times daily. Dx: Type 2 DM - Uncontrolled E11.65 Insulin: No - apixaban (ELIQUIS) 5 mg tab tab(s) Take 1 tablet by mouth twice daily. Problem List As Of Date 04/18/2024 Noted Resolved 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 (HCC) [I48.21] HTN (hypertension) [I10] Hyperlipidemia [E78.5] Seizures (HCC) [R56.9] Hyperglycemia [R73.9] 03/23/2017 03/26/2021 Primary pulmonary HTN (HCC) [I27.0] 07/26/2017 Mitral regurgitation [I34.0] 07/26/2017 Non-rheumatic tricuspid valve insufficiency [I3*07/26/2017 Enlarged thoracic aorta (HCC) [I77.89] 07/26/2017 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 status epilepticus*06/27/2020 03/25/2021 Type 2 diabetes mellitus without complication, *03/26/2021 Encounter for hepatitis C screening test for lo*03/09/2022 09/30/2022 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/09/2022 Adjustment disorder with mixed emotional featur*09/30/2022 Allergy [T78.40XA] 09/30/2022 Anxiety state [F41.1] 09/30/2022 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 Will route to PCP office to make them aware. Merline Jimenez RN March 22, 2024 2:44 PM [facility]10-24-2024 Miscellaneous Notes* Telephone Encounter - Merline Jimenez RN - 03/22/2024 2:44 PM EDT Patient does not see endocrinology. Will route to PCP office to make them aware. Merline Jimenez RN March 22, 2024 2:44 PM * Telephone Encounter - Vanna Flores - 03/21/2024 3:31 PM EDT [facility] states that their records show patient has diabetes but does not take statins. AMA recommendthat patient take a statin to reduce cardiovascular risk. [facility] Telephone encounter Note * Telephone Encounter - Vanna Flores - 03/21/2024 3:31 PM EDT [facility] states that their records show patient has diabetes but does not take statins. AMA recommendthat patient take a statin to reduce cardiovascular risk. [facility]10-17-2024 NoteHNO ID: [id number] Author: YOLANDA STRATTON MA Service: ? Author Type: Technology Engineer Type: Progress Notes Filed: 03/15/2024 08:28 Note Text: POPULATION HEALTH NAVIGATION OUTREACH Action/FYI Letter received and sent to be mailed. Navigation Signature: Yolanda Stratton MA March 15, 2024 8:27 [facility]10-09-2024 NoteHNO ID: [id number] Author: JORDY HERNANDEZ MA Service: ? Author Type: Technology Engineer Type: Progress Notes Filed: 03/07/2024 10:40 Note Text: POPULATION HEALTH NAVIGATION OUTREACH Action/FYI [facility] for below and needs appointment to address: Abdominal Aortic Aneurysm Screening BP Controlled (<130/80) DTaP,Tdap,Td Vaccine(1 - Tdap) Colorectal Cancer Screening Dilated Retinal Exam Advance Directive Discussion HbA1C Influenza Vaccine(1) Covid-19 Vaccine( season) Hemoglobin A1C (%) Date Value 05/24/2023 6.1 03/25/2021 6.5 Patient due for: Controlling Blood Pressure Colorectal Cancer Screening - cologuard previously ordered Diabetic Eye Exam HBA1C Flu Vaccine MyChart Active: No, offered activation N/A Attempted to reach patient, phone rings then goes to busy signal - no voicemail, unable to leave message. No mychart. Sent letter BP to be addressed at upcoming AWV. A1C already ordered - question about annual labs due Reason for Outreach Care Gap/HCC or Scheduling Wellness Visits Care Gaps due: Controlling Blood Pressure Colorectal Cancer Screening HBA1C Flu Vaccine Patient Contacted: Unable or unnecessary to reach patient: Unable to leave message Letter mailed HCC related Updated appointment notes Navigation Signature: Jordy Hernandez MA March 07, 2024 7:34 [facility]10-09-2024 History of Present illness Narrative* Jordy Hernandez MA - 03/07/2024 7:34 AM EDT POPULATION HEALTH NAVIGATION OUTREACH Action/FYI Patient is on [facility] CURRENT ROSTER Workbench list for below and needs appointment to address: Abdominal Aortic Aneurysm Screening BP Controlled (<130/80) DTaP,Tdap,Td Vaccine(1 - Tdap) Colorectal Cancer Screening Dilated Retinal Exam Advance Directive Discussion HbA1C Influenza Vaccine(1) Covid-19 Vaccine( season) Hemoglobin A1C (%) Date Value 05/24/2023 6.1 03/25/2021 6.5 Patient due for: Controlling Blood Pressure Colorectal Cancer Screening - cologuard previously ordered Diabetic Eye Exam HBA1C Flu Vaccine MyChart Active: No, offered activation N/A Attempted to reach patient, phone rings then goes to busy signal - no voicemail, unable to leave message. No mychart. Sent letter BP to be addressed at upcoming AWV. A1C already ordered - question about annual labs due Reason for Outreach Care Gap/HCC or Scheduling Wellness Visits Care Gaps due: Controlling Blood Pressure Colorectal Cancer Screening HBA1C Flu Vaccine Patient Contacted: Unable or unnecessary to reach patient: Unable to leave message Letter mailed HCC related Updated appointment notes Navigation Signature: Jordy Hernandez MA March 07, 2024 7:34 AM documented in this encounterDoctors Hospital10-09-2024 NotePatient Outreach (NETNAV) REINA SULLIVAN ([id number]) 1955 M Date Time Provider Department 03/07/24 JORDY HERNANDEZ NETNAObie During your visit today, we recorded the following information about you: Jordy Hernandez MA 03/07/2024 10:40 AM Signed POPULATION HEALTH NAVIGATION OUTREACH Action/FYI Patient is on [facility] CURRENT ROSTER Workbench list for below and needs appointment to address: Abdominal Aortic Aneurysm Screening BP Controlled (<130/80) DTaP,Tdap,Td Vaccine(1 - Tdap) Colorectal Cancer Screening Dilated Retinal Exam Advance Directive Discussion HbA1C Influenza Vaccine(1) Covid-19 Vaccine( season) Hemoglobin A1C (%) Date Value 05/24/2023 6.1 03/25/2021 6.5 Patient due for: Controlling Blood Pressure Colorectal Cancer Screening - cologuard previously ordered Diabetic Eye Exam HBA1C Flu Vaccine MyChart Active: No, offered activation N/A Attempted to reach patient, phone rings then goes to busy signal - no voicemail, unable to leave message. No mychart. Sent letter BP to be addressed at upcoming AWV. A1C already ordered - question about annual labs due Reason for Outreach Care Gap/HCC or Scheduling Wellness Visits Care Gaps due: Controlling Blood Pressure Colorectal Cancer Screening HBA1C Flu Vaccine Patient Contacted: Unable or unnecessary to reach patient: Unable to leave message Letter mailed HCC related Updated appointment notes Navigation Signature: Jordy Hernandez MA March 07, 2024 7:34 AM Yolanda Stratton MA 03/15/2024 8:28 AM Signed POPULATION HEALTH NAVIGATION OUTREACH Action/FYI Letter received and sent to be mailed. Navigation Signature: Yolanda ROSS Stratton March 15, 2024 8:27 AM Allergies As of Date: 03/07/2024 Noted Allergy Reaction DYE 03/02/2016 14 - Other: See Comments Comments: used for heart cath Date Reviewed: 11/22/2023 Reviewed by: Florinda Flores LPN - Fully Assessed Reason for Visit: Population Health Navigation Outreach [3910] Cmt: Jodie Leal PCSA Prescriptions as of 03/15/2024 - divalproex DR (DEPAKOTE) 500 mg EC tablet Take 1 tablet by mouth two times a day. - metFORMIN ER (GLUCOPHAGE XR) 500 mg 24 hr tablet Take 1 tablet by mouth daily with breakfast. - metoprolol succinate ER (TOPROL XL) 50 mg 24 hr tablet Take 1 tablet by mouth once daily. - furosemide (LASIX) 40 mg tablet Take 1 tablet by mouth once daily. - Lancets lancets Test blood sugar(s) 1 times daily. Dx: Type 2 DM - Uncontrolled E11.65 Insulin: No - blood sugar diagnostic (BLOOD GLUCOSE TEST) test strip Test blood sugar(s) 1 times daily. Dx: Type 2 DM - Uncontrolled E11.65 Insulin: No - apixaban (ELIQUIS) 5 mg tab tab(s) Take 1 tablet by mouth twice daily. Problem List As Of Date 03/07/2024 Noted Resolved 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 (HCC) [I48.21] HTN (hypertension) [I10] Hyperlipidemia [E78.5] Seizures (HCC) [R56.9] Hyperglycemia [R73.9] 03/23/2017 03/26/2021 Primary pulmonary HTN (HCC) [I27.0] 07/26/2017 Mitral regurgitation [I34.0] 07/26/2017 Non-rheumatic tricuspid valve insufficiency [I3*07/26/2017 Enlarged thoracic aorta (HCC) [I77.89] 07/26/2017 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 status epilepticus*06/27/2020 03/25/2021 Type 2 diabetes mellitus without complication, *03/26/2021 Encounter for hepatitis C screening test for lo*03/09/2022 09/30/2022 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/09/2022 Adjustment disorder with mixed emotional featur*09/30/2022 Allergy [T78.40XA] 09/30/2022 Anxiety state [F41.1] 09/30/2022 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 Encounter for issue of repeat prescription [Z76*09/30/2022 09/30/2022 Fracture of skull (HCC) [S02.91XA] 09/30/2022 09/30/2022 Headache [R51.9] 09/30/2022 09/30/2022 High serum creatinine [R79.89] 09/30/2022 09/30/2022 Intracranial injury of other and unspecified na*09/30/2022 Left atrial enlargement [I51.7] 09/30/2022 longterm current use of 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 *09/30/2022 Migraine headache [G43.909] 09/30/2022 Need for Streptococcus pneumoniae vaccination [*09/30/2022 Neoplasm of uncertain behavior of skin [D48.5] 09/30/2022 Noncompliance with treatment [Z91.199] 09/30/2022 Other polyp of sinus [J33.8] 09/30/2022 Pulmonary hypertension (HCC) [I27.20] 09/30/2022 Syncope and collapse [R55] 09/30/2022 09/30/2022 Undiagnosed cardiac murmurs [R01.1] 09/30/2022 09/30/2022 History of skull fracture [Z87.81] 09/30/2022 Letter Text Encounter Status:Closed by JORDY HERNANDEZ on 03/07/24[facility]07-18-2024 NoteHNO ID: [id number] Author: MOSHE FRIEDMAN MA Service: ? Author Type: Technology Engineer Type: Progress Notes Filed: 12/15/2023 13:03 Note Text: POPULATION HEALTH NAVIGATION OUTREACH Action/I December 15, 2023 05/25/2024 appt flipped to AWV per protocol Moshe Friedman MA Reason for Outreach Care Gap/HCC or Scheduling Wellness Visits Care Gaps due: Medicare Annual Wellness Visit Patient Contacted: Patient not contacted per protocol Patient identified by name and : Yes Care Gap/HCC/Scheduling Wellness actions taken: Patient scheduled/pended labs: Medicare Annual Wellness Visit Navigation Signature: Moshe Friedman MA December 15, 2023 1:01 [facility]07-18-2024 History of Present illness Narrative* Moshe Friedman MA - 12/15/2023 1:01 PM EDT POPULATION HEALTH NAVIGATION OUTREACH Action/December 15, 2023 05/25/2024 appt flipped to AWV per protocol Moshe Friedman MA Reason for Outreach Care Gap/HCC or Scheduling Wellness Visits Care Gaps due: Medicare Annual Wellness Visit Patient Contacted: Patient not contacted per protocol Patient identified by name and : Yes Care Gap/HCC/Scheduling Wellness actions taken: Patient scheduled/pended labs: Medicare Annual Wellness Visit Navigation Signature: Moshe Friedman MA December 15, 2023 1:01 PM documented in this encounterDoctors Hospital07-18-2024 NotePatient Outreach (NETNAV) REINA SULLIVAN ([id number]) 1955 M Date Time Provider Department 12/15/23 MOSHE FRIEDMAN NETSOPHIE During your visit today, we recorded the following information about you: Moshe Friedman MA 12/15/2023 1:03 PM Signed POPULATION HEALTH NAVIGATION OUTREACH Action/December 15, 2023 05/25/2024 appt flipped to AWV per protocol Moshe Friedman MA Reason for Outreach Care Gap/HCC or Scheduling Wellness Visits Care Gaps due: Medicare Annual Wellness Visit Patient Contacted: Patient not contacted per protocol Patient identified by name and : Yes Care Gap/HCC/Scheduling Wellness actions taken: Patient scheduled/pended labs: Medicare Annual Wellness Visit Navigation Signature: Moshe Friedman MA December 15, 2023 1:01 PM Allergies As of Date: 12/15/2023 Noted Allergy Reaction DYE 03/02/2016 14 - Other: See Comments Comments: used for heart cath Date Reviewed: 11/22/2023 Reviewed by: Florinda Flores LPN - Fully Assessed Reason for Visit: Population Health Navigation Outreach [3910] Cmt: JODIE-AWV Prescriptions as of 12/15/2023 - divalproex DR (DEPAKOTE) 500 mg EC tablet Take 1 tablet by mouth two times a day. - metFORMIN ER (GLUCOPHAGE XR) 500 mg 24 hr tablet Take 1 tablet by mouth daily with breakfast. - metoprolol succinate ER (TOPROL XL) 50 mg 24 hr tablet Take 1 tablet by mouth once daily. - furosemide (LASIX) 40 mg tablet Take 1 tablet by mouth once daily. - Lancets lancets Test blood sugar(s) 1 times daily. Dx: Type 2 DM - Uncontrolled E11.65 Insulin: No - blood sugar diagnostic (BLOOD GLUCOSE TEST) test strip Test blood sugar(s) 1 times daily. Dx: Type 2 DM - Uncontrolled E11.65 Insulin: No - apixaban (ELIQUIS) 5 mg tab tab(s) Take 1 tablet by mouth twice daily. Problem List As Of Date 12/15/2023 Noted Resolved 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 (HCC) [I48.21] HTN (hypertension) [I10] Hyperlipidemia [E78.5] Seizures (HCC) [R56.9] Hyperglycemia [R73.9] 03/23/2017 03/26/2021 Primary pulmonary HTN (HCC) [I27.0] 07/26/2017 Mitral regurgitation [I34.0] 07/26/2017 Non-rheumatic tricuspid valve insufficiency [I3*07/26/2017 Enlarged thoracic aorta (HCC) [I77.89] 07/26/2017 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 status epilepticus*06/27/2020 03/25/2021 Type 2 diabetes mellitus without complication, *03/26/2021 Encounter for hepatitis C screening test for lo*03/09/2022 09/30/2022 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/09/2022 Adjustment disorder with mixed emotional featur*09/30/2022 Allergy [T78.40XA] 09/30/2022 Anxiety state [F41.1] 09/30/2022 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 Encounter for issue of repeat prescription [Z76*09/30/2022 09/30/2022 Fracture of skull (HCC) [S02.91XA] 09/30/2022 09/30/2022 Headache [R51.9] 09/30/2022 09/30/2022 High serum creatinine [R79.89] 09/30/2022 09/30/2022 Intracranial injury of other and unspecified na*09/30/2022 Left atrial enlargement [I51.7] 09/30/2022 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 *09/30/2022 Migraine headache [G43.909] 09/30/2022 Need for Streptococcus pneumoniae vaccination [*09/30/2022 Neoplasm of uncertain behavior of skin [D48.5] 09/30/2022 Noncompliance with treatment [Z91.199] 09/30/2022 Other polyp of sinus [J33.8] 09/30/2022 Pulmonary hypertension (HCC) [I27.20] 09/30/2022 Syncope and collapse [R55] 09/30/2022 09/30/2022 Undiagnosed cardiac murmurs [R01.1] 09/30/2022 09/30/2022 History of skull fracture [Z87.81] 09/30/2022 Encounter Status:Closed by MOSHE FRIEDMAN on 12/15/23[facility] 11-24-2023 Telephone encounter Note* Telephone Encounter - Harvey Hazel MSW - 11/24/2023 12:54 PM EDT Nikkie called and spoke with Halima, patient ex in regards to service assistance options in the community. Halima notes that she helps patient " to a certain extent." Halima and Nikkie spoke about [facility] Older Adult Resource Directory. Hlaima asks that Sw mail patient this guide for him to review and see what services are available in the community. Nikkie will also attach Community [facility] Older Adult support program and [facility] information. [facility]06-[facility] Miscellaneous Notes* Telephone Encounter - Harvey Hazel MSW - 11/24/2023 12:54 PM EDT Nikkie called and spoke with Halima, patient ex in regards to service assistance options in the community. Halima notes that she helps patient " to a certain extent." Halima and Nikkie spoke about [facility] Older Adult Resource Directory. Halima asks that Sw mail patient this guide for him to review and see what services are available in the community. Sw will also attach Community [facility] Older Adult support program and [facility] information. documented in this encounterDoctors Hospital06-25-2024 Instructions* Patient Instructions* Jaison Max PA-C - 11/22/2023 3:54 PM EDT Nail dremmel for nail trimming might help, would need assistance documented in this encounterDoctors Hospital06-25-2024 History of Present illness Narrative* Jaison Max PA-C - 11/22/2023 3:40 PM EDT 68 year old male with c/o 6-month follow-up Last visit Dr. 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 Aric Huston Current medications: Apixaban 5 mg twice daily Divalproex DR 500 mg 1 tablet twice daily No seizures. 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) longterm current use of 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 Non-rheumatic tricuspid valve insufficiency Mitral valve insufficiency, unspecified etiology Left atrial enlargement Enlarged thoracic aorta (hcc) Primary pulmonary htn (hcc) Primary hypertension Mixed hyperlipidemia Cardiovascular interval hx: Last cardiology visit 08/04/2023 with BONI HarryC: Stable from a cardiac standpoint 10/14/2022 ECG: Atrial fibrillation with rapid ventricular response, nonspecific ST abnormality 11/19/2020 ED visit SOB with negative work up with normal EKG, CXR, troponins, routine lab 10/20/2022 EKG atrial fibrillation with rapid ventricular response, nonspecific ST abnormality 07/14/[address] James: stable AF, no concerns 09/08/2015 Dr. James [place]: cardiac cath: no disease 09/08/2015 cardiac catheterization [facility] Dr. James: - primary rhythm atrial fibrillation ventricular rate 42 bpm -Left main angiographically normal, bifurcation into left anterior descending and left circumflex artery, no high-grade stenosis. -LAD: Medium to large sized vessel giving off proximal diagonal branch angiographically free of disease. Second branch noted which not had any significant stenosis. Third branch also noted without stenosis. -Left circumflex artery: First obtuse marginal, second obtuse marginal with trifurcation, no significant stenosis in these vessels. -RCA dominant vessel: 2 marginal branches, posterior descending artery and posterolateral vessel: No significant stenosis noted. Ejection fraction 50% with 2+ mitral regurg noted. Dilated left atrium present. Current meds: Metoprolol succinate ER 50mg daily Lasix 40mg daily Eliquis 5 mg twice a day Use of NTG: No Chest pain, arm, jaw pain, neck, or upper back pain suggestive of angina: No. SOB: No Dyspnea with exertion: No orthopnea: No Cough : No racing or irregular heartbeats: No palpitations: No syncopal sx: No Headache: No Unexplainable fatigue No Leg swelling: No Nausea: No diaphoresis: No Heartburn: No Claudication: No Smoking: No Following Low cholesterol, high fiber diet? So-so If on statin: muscle aches? No If on statin: GI sx or diarrhea? No Additional history none. Lab review: 06/23/2023 external lab work [facility], Chemistry abnormals: BUN 21 Serum creatinine 1.59H, EGFR 47L AG 4L 06/23/2023 CBC abnormals: RDW 44.3, monocyte percent 11.7 otherwise within normal limits Latest Ref Rng 09/30/2022 05/24/2023 WBC 3.70 - 11.00 k/uL 6.73 8.69 RBC 4.20 - 6.00 m/uL 4.56 4.81 Hemoglobin 13.0 - 17.0 g/dL 14.2 14.7 Hematocrit 39.0 - 51.0 % 43.7 44.5 MCV 80.0 - 100.0 fL 95.8 92.5 MCH 26.0 - 34.0 pg 31.1 30.6 MCHC 30.5 - 36.0 g/dL 32.5 33.0 RDW-CV 11.5 - 15.0 % 13.6 12.7 Platelet Count 150 - 400 k/uL 246 244 MPV 9.0 - 12.7 fL 11.4 11.1 Neut% % 65.0 58.1 Abs Neut (ANC) 1.45 - 7.50 k/uL 4.37 5.05 Lymph% % 23.3 27.0 Abs Lymph 1.00 - 4.00 k/uL 1.57 2.35 [place]% % 9.8 11.3 Abs [place] <0.87 k/uL 0.66 0.98 (H) Eosin% % 1.0 2.4 Abs Eosin <0.46 k/uL 0.07 0.21 Baso% % 0.6 0.6 Abs Baso <0.11 k/uL 0.04 0.05 Immature Gran % % 0.3 0.6 IMMATURE GRANS (ABS) <0.10 k/uL <0.03 0.05 NRBC /100 WBC 0.0 0.0 Absolute nRBC <0.01 k/uL <0.01 <0.01 DTYPE Auto Auto Protein, Total 6.3 - 8.0 g/dL 6.7 7.0 Albumin 3.9 - 4.9 g/dL 4.3 4.3 Calcium 8.5 - 10.2 mg/dL 10.0 9.3 Bilirubin, Total 0.2 - 1.3 mg/dL 0.2 0.2 Alkaline Phosphatase 38 - 113 U/L 83 66 AST 14 - 40 U/L 16 21 ALT 10 - 54 U/L 14 16 Glucose 74 - 99 mg/dL 99 106 (H) BUN 9 - 24 mg/dL 20 26 (H) Creatinine 0.73 - 1.22 mg/dL 1.22 1.35 (H) Sodium 136 - 144 mmol/L 141 141 Potassium 3.7 - 5.1 mmol/L 4.2 4.1 Chloride 97 - 105 mmol/L 105 103 CO2 22 - 30 mmol/L 25 24 Anion Gap 9 - 18 mmol/L 11 14 eGFR >=60 mL/min/1.73m 66 58 (L) Cholesterol, Total <200 mg/dL 156 Triglyceride <150 mg/dL 104 HDL Cholesterol >39 mg/dL 46 Non HDL Cholesterol <130 mg/dL 110 Fasting Time hrs 12 VLDL Cholesterol <30 mg/dL 21 TC:HDL Ratio <5.10 3.39 LDL Cholesterol <100 mg/dL 89 LDL:HDL Ratio <2.54 1.93 Type 2 diabetes mellitus without complication, without long-term current use of insulin (hcc) Diabetes Mellitus Type 2: Current medications: Metformin ER 500 mg 1 tablet daily with breakfast Taking medication as directed consistently? Yes Medication side effects: none Medical Issues / Complications: hypertension, hyperlipidemia, nephropathy, cardiovascular disease, and cerebrovascular disease Checking blood sugars at home? No. Watching diet? Some: answered questions with diet, fruits, starches, carbs Physical Activity: Regular, when weather is noice Hypoglycemic spells? No Any visual disturbance? No Chest pain? No New numbness, tingling or loss of sensation? No Any recent foot problems, sores or rashes? No Any recent or sudden weight loss? No Change in urination? No. If yes: Any recent illness? No Last eye exam: due. Last foot exam: up to date. HBA1C: Hemoglobin A1C (%) Date Value 05/24/2023 6.1 09/30/2022 6.2 03/25/2021 6.5 11/12/2019 6.2 ) CMP: Glucose 106 05/24/2023 BUN 26 05/24/2023 Creatinine 1.35 05/24/2023 Sodium 141 05/24/2023 Potassium 4.1 05/24/2023 Chloride 103 05/24/2023 CO2 24 05/24/2023 Protein, Total 7.0 05/24/2023 Albumin 4.3 05/24/2023 Calcium 9.3 05/24/2023 Alkaline Phosphatase 66 05/24/2023 Bilirubin, Total 0.2 05/24/2023 AST 21 05/24/2023 ALT 16 05/24/2023 Last 2 Encounter Wt Readings: Date: Wt: 11/22/2023 102.5 kg (226 lb) 05/24/2023 104.3 kg (230 lb) . Last 3 Encounter BP Readings: Date: BP: 11/22/2023 128/80 05/24/2023 114/70 12/07/2022 112/76 HISTORIES FAMILY HISTORY Problem Relation Age of Onset Alzheimer's Disease Mother Breast Cancer Mother other (a fib) Mother Hypertension Father Hyperlipidemia Father other (A fib) Father other (polio) Father Heart Brother Breast Cancer Sister Seizures Son other (austism) Son other (Brain) Son PAST MEDICAL HISTORY Diagnosis Date Atrial fibrillation (HCC) Dr. 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 Huston TBI (traumatic brain injury) ([facility]) 2 times PAST SURGICAL HISTORY Procedure Laterality Date LEFT HEART CATH,PERCUTANEOUS 09/08/2015 Mel Dewitt: cardiac cath: no disease EF 60%, 2+ MR PAST SURGICAL HISTORY OF collarbone Social History Tobacco Use Smoking status: Former Smokeless tobacco: Never Tobacco comments: Quit in 2005 ACTIVE PROBLEM LIST Permanent Atrial Fibrillation (Hcc) Htn (Hypertension) Hyperlipidemia Seizures (Hcc) Primary Pulmonary Htn (Hcc) Mitral Regurgitation Non-Rheumatic Tricuspid Valve Insufficiency Enlarged Thoracic Aorta (Hcc) Type 2 Diabetes Mellitus Without Complication, Without Long-Term Current Use of Insulin (Hcc) Loss of Lateral Visual Alexandra Adjustment Disorder With Mixed Emotional Features Allergy Anxiety State Dow's Palsy Intracranial Injury of Other and Unspecified Nature Left Atrial Enlargement 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 90 tablet 3 metFORMIN ER (GLUCOPHAGE XR) 500 mg 24 hr tablet Take 1 tablet by mouth daily with breakfast. [address] (DEPAKOTE) 500 mg EC tablet Take 1 tablet by mouth two times a day. 180 tablet 1 metoprolol succinate ER (TOPROL XL) 50 mg 24 hr tablet Take 1 tablet by mouth once daily. 90 tablet3 Lancets lancets Test blood sugar(s) 1 times daily. Dx: Type 2 DM - Uncontrolled E11.65 Insulin: No 100 Each 11 blood sugar diagnostic (BLOOD GLUCOSE TEST) test strip Test blood sugar(s) 1 times daily. Dx: Type 2 DM - Uncontrolled E11.65 Insulin: No 50 Strip 11 folic acid/multivit-min/lutein (CENTRUM SILVER ORAL) Take 1 tablet by mouth once daily. (Patient not taking: Reported on 10/14/2022) apixaban (ELIQUIS) 5 mg tab tab(s) Take 1 tablet by mouth twice daily. 0 No current facility-administered medications for this visit. Abdominal Aortic Aneurysm Screening Never done DTaP,Tdap,Td Vaccine(1 - Tdap) Never done Colorectal Cancer Screening Never done RSV Vaccine(1 - 1-dose 60+ series) Never done Dilated Retinal Exam due on 04/12/2023 Advance Directive Discussion due on 05/30/2023 Behavioral Health Screening Never done Covid-19 Vaccine(2022- season) due on 09/23/2023 Diabetic Foot Exam due on 10/01/2023 EXAM: BP 128/80 Pulse 85 Resp 15 Wt 102.5 kg (226 lb) SpO2 96% BMI 30.65 kg/m Pleasant overweight adult man in no acute distress. Alert and oriented all spheres. Simple cognition, Speech normal. No deficits to learning or comprehension. Skin warm, dry, pink to lips and nailbeds. Normal turgor. No ert=ythema in abdominal or axillary folds. Respirations regular and unlabored. HEENT: NCAT. No scleral icterus or conjunctival injection. TM's clear. Nose and oropharynx free from injection or lesion. Oral membranes moist and pink. No cervical lymph nodes. Thyroid non-tender, no masses, or enlargement. Carotids pulses 2+/4+ without bruits. No JVD with HOB at 30 degrees. Chest is normal shape. Lungs are clear to all alexandra with good air exchange through out. Heart irregular intermittently with gr 2/4 systolic murmur without gallop. No lifts, heaves, or rubs. Feet:Shoes and socks removed, Are you having foot pain no, normal distal pulses, sensitive to 10 gmmonofilament with patchy areas dorsal and plantar toes bilaterally, positive vibratory perception, calluses noted bilaterally, and nails notable for Crumbly, Deformed, Hypertrophic, Yellowish, and severely encurvated. Used Gauze and warm water to removed wet soiled debri between toes. Extrem: no clubbing or cyanosis. Edema: 0-1/4+. Extremities are warm and pink with prompt capillaryrefill. Neuro: no focal deficits. ASSESSMENT/PLAN: 1. 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 Seizures (HCC) - ICD9: 780.39, ICD10: R56.9 None in memory. Last document in chart was 2020 - COMPLETE BLOOD COUNT AND DIFFERENTIAL - COMPREHENSIVE METABOLIC PANEL - DIVALPROEX 500 MG TABLET,DELAYED RELEASE 3. Mitral valve insufficiency, unspecified etiology - ICD9: 424.0, ICD10: I34.0 4. Non-rheumatic tricuspid valve insufficiency - ICD9: 424.2, ICD10: I36.1 - COMPLETE BLOOD COUNT AND DIFFERENTIAL - COMPREHENSIVE METABOLIC PANEL - LIPID PANEL BASIC - METOPROLOL SUCCINATE ER 50 MG TABLET,EXTENDED RELEASE 24 HR 5. Left atrial enlargement - ICD9: 429.3, ICD10: I51.7 - COMPLETE BLOOD COUNT AND DIFFERENTIAL - COMPREHENSIVE METABOLIC PANEL - LIPID PANEL BASIC 6. 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 (HCC) - ICD9: 427.31, ICD10: I48.21 - COMPLETE BLOOD COUNT AND DIFFERENTIAL - COMPREHENSIVE METABOLIC PANEL - LIPID PANEL BASIC 7. 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 Pulmonary hypertension (HCC) - ICD9: 416.8, ICD10: I27.20 - COMPLETE BLOOD COUNT AND DIFFERENTIAL - COMPREHENSIVE METABOLIC PANEL - LIPID PANEL BASIC - METOPROLOL SUCCINATE ER 50 MG TABLET,EXTENDED RELEASE 24 HR 9. Enlarged thoracic aorta (HCC) - ICD9: 447.8, ICD10: I77.89 - COMPLETE BLOOD COUNT AND DIFFERENTIAL - COMPREHENSIVE METABOLIC PANEL - LIPID PANEL BASIC 10. Primary hypertension - ICD9: 401.9, ICD10: I10 - Controlled - Recommend home blood pressure monitoring, to bring results to next visit - Encouraged sodium restriction, DASH or Mediterranean diet - Recommend regular aerobic exercise - COMPLETE BLOOD COUNT AND DIFFERENTIAL - COMPREHENSIVE METABOLIC PANEL - LIPID PANEL BASIC 11. Mixed hyperlipidemia - ICD9: 272.2, ICD10: E78.2 - Controlled - Continue current medications - Counseled on healthy diet and regular exercise - COMPREHENSIVE METABOLIC PANEL - LIPID PANEL BASIC 12. Chronic renal failure (CRF), stage 3a (HCC) - ICD9: 585.3, ICD10: N18.31 - eGFR: 58 Stable - Counseled on avoiding NSAIDs, adequate hydration - ACEi/ARB prescribed: This patient does not have an active medication from one of the medication groupers. - COMPLETE BLOOD COUNT AND DIFFERENTIAL - COMPREHENSIVE METABOLIC PANEL 13. Type 2 diabetes mellitus without complication, without long-term current use of insulin (HCC) -ICD9: 250.00, ICD10: E11.9 - Controlled - Continue current medications - COMPLETE BLOOD COUNT AND DIFFERENTIAL - COMPREHENSIVE METABOLIC PANEL - LIPID PANEL BASIC - HEMOGLOBIN A1C - METFORMIN ER 500 MG TABLET,EXTENDED RELEASE 24 HR 14. Adjustment disorder with mixed emotional features - ICD9: 309.9, ICD10: F43.29 stable - COMPLETE BLOOD COUNT AND DIFFERENTIAL - COMPREHENSIVE METABOLIC PANEL 15. Anxiety state - ICD9: 300.00, ICD10: F41.1 Controlled with meds, continue - COMPLETE BLOOD COUNT AND DIFFERENTIAL - COMPREHENSIVE METABOLIC PANEL 16. Encounter for immunization - ICD9: V03.89, ICD10: Z23 - PFIZER[employer] COVID-19 VACCINE (2022- SEASON) AGE 12+ YR 17. Screening for colon cancer - ICD9: V76.51, ICD10: Z12.11 - COLOGUARD 18. Screening for abdominal aortic aneurysm - ICD9: V81.2, ICD10: Z13.6 - US SCREENING FOR AAA 19. Incurvated nail - ICD9: 703.8, ICD10: L60.8 Unable to manage feet Not able to sufficiently manage hygiene. Will ask social service to contact patient and review possible options - CONSULT TO PODIATRY Behavioral Health Screening PHQ-2 Score: 1 (Lower risk for depression) NELSON-2 Score: 0 (Lower risk for anxiety) Recommendation: continuing current treatment plan Jaison Max PA-C documented [facility]Do[facility]24 NoteHNO ID: [id number] Author: Jaison MAX PA-C Service: ? Author Type: Physician Medical Care Administrator Type: Progress Notes Filed: 11/28/2023 09:49 Note Text: 68 year old male with c/o 6-month follow-up Last visit Dr. 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 Aric Huston Current medications: Apixaban 5 mg twice daily Divalproex DR 500 mg 1 tablet twice daily No seizures. 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 Non-rheumatic tricuspid valve insufficiency Mitral valve insufficiency, unspecified etiology Left atrial enlargement Enlarged thoracic aorta (hcc) Primary pulmonary htn (hcc) Primary hypertension Mixed hyperlipidemia Cardiovascular interval hx: Last cardiology visit 08/04/2023 with BONI HarryC: Stable from a cardiac standpoint 10/14/2022 ECG: Atrial fibrillation with rapid ventricular response, nonspecific ST abnormality 11/19/2020 ED visit SOB with negative work up with normal EKG, CXR, troponins, routine lab 10/20/2022 EKG atrial fibrillation with rapid ventricular response, nonspecific ST abnormality 07/14/[address] James: stable AF, no concerns 09/08/2015 Dr. James [place]: cardiac cath: no disease 09/08/2015 cardiac catheterization [facility] Dr. James: - primary rhythm atrial fibrillation ventricular rate 42 bpm -Left main angiographically normal, bifurcation into left anterior descending and left circumflex artery, no high-grade stenosis. -LAD: Medium to large sized vessel giving off proximal diagonal branch angiographically free of disease. Second branch noted which not had any significant stenosis. Third branch also noted without stenosis. -Left circumflex artery: First obtuse marginal, second obtuse marginal with trifurcation, no significant stenosis in these vessels. -RCA dominant vessel: 2 marginal branches, posterior descending artery and posterolateral vessel: No significant stenosis noted. Ejection fraction 50% with 2+ mitral regurg noted. Dilated left atrium present. Current meds: Metoprolol succinate ER 50mg daily Lasix 40mg daily Eliquis 5 mg twice a day Use of NTG: No Chest pain, arm, jaw pain, neck, or upper back pain suggestive of angina: No. SOB: No Dyspnea with exertion: No orthopnea: No Cough : No racing or irregular heartbeats: No palpitations: No syncopal sx: No Headache: No Unexplainable fatigue No Leg swelling: No Nausea: No diaphoresis: No Heartburn: No Claudication: No Smoking: No Following Low cholesterol, high fiber diet? So-so If on statin: muscle aches? No If on statin: GI sx or diarrhea? No Additional history none. Lab review: 06/23/2023 external lab work [facility], Chemistry abnormals: BUN 21 Serum creatinine 1.59H, EGFR 47L AG 4L 06/23/2023 CBC abnormals: RDW 44.3, monocyte percent 11.7 otherwise within normal limits Latest Ref Rng 09/30/2022 05/24/2023 WBC 3.70 - 11.00 k/uL 6.73 8.69 RBC 4.20 - 6.00 m/uL 4.56 4.81 Hemoglobin 13.0 - 17.0 g/dL 14.2 14.7 Hematocrit 39.0 - 51.0 % 43.7 44.5 MCV 80.0 - 100.0 fL 95.8 92.5 MCH 26.0 - 34.0 pg 31.1 30.6 MCHC 30.5 - 36.0 g/dL 32.5 33.0 RDW-CV 11.5 - 15.0 % 13.6 12.7 Platelet Count 150 - 400 k/uL 246 244 MPV 9.0 - 12.7 fL 11.4 11.1 Neut% % 65.0 58.1 Abs Neut (ANC) 1.45 - 7.50 k/uL 4.37 5.05 Lymph% % 23.3 27.0 Abs Lymph 1.00 - 4.00 k/uL 1.57 2.35 [place]% % 9.8 11.3 Abs [place] <0.87 k/uL 0.66 0.98 (H) Eosin% % 1.0 2.4 Abs Eosin <0.46 k/uL 0.07 0.21 Baso% % 0.6 0.6 Abs Baso <0.11 k/uL 0.04 0.05 Immature Gran % % 0.3 0.6 IMMATURE GRANS (ABS) <0.10 k/uL <0.03 0.05 NRBC /100 WBC 0.0 0.0 Absolute nRBC <0.01 k/uL <0.01 <0.01 DTYPE Auto Auto Protein, Total 6.3 - 8.0 g/dL 6.7 7.0 Albumin 3.9 - 4.9 g/dL 4.3 4.3 Calcium 8.5 - 10.2 mg/dL 10.0 9.3 Bilirubin, Total 0.2 - 1.3 mg/dL 0.2 0.2 Alkaline Phosphatase 38 - 113 U/L 83 66 AST 14 - 40 U/L 16 21 ALT 10 - 54 U/L 14 16 Glucose 74 - 99 mg/dL 99 106 (H) BUN 9 - 24 mg/dL 20 26 (H) Creatinine 0.73 - 1.22 mg/dL 1.22 1.35 (H) Sodium 136 - 144 mmol/L 141 141 Potassium 3.7 - 5.1 mmol/L 4.2 4.1 Chloride 97 - 105 mmol/L 105 103 CO2 22 - 30 mmol/L 25 24 Anion Gap 9 - 18 mmol/L 11 14 eGFR >=60 mL/min/1.73m? 66 58 (L) Cholesterol, Total <200 mg/dL 156 Triglyceride <150 mg/dL 104 HDL Cholesterol >39 mg/dL 46 Non HDL Cholesterol <130 mg/dL 110 Fasting Time hrs 12 VLDL Cholesterol <30 mg/dL 21 TC:HDL Ratio <5.10 3.39 LDL Cholesterol <100 mg/dL 89 LDL:HDL Ratio <2.54 1.93 Type 2 diabetes mellitus without complication, without long-term current use of insulin (hcc) Diabetes Mellitus Type 2: Current medications: Metformin ER 500 mg 1 tablet daily with breakfast Taking medication as directed consistently? Yes Medication side effects: none Medical Issues / Complications: hypertension, hyperlipide (more content not included)...[facility]06-11-[facility]24 Telephone encounter Note* Telephone Encounter - Yolanda Newman - 11/08/2023 10:10 AM EDT Prescription Refill Information The patient has been identified by name and date of : Yes Caregiver verified no other encounters exist for this prescription request: Yes Caregiver confirmed with patient/requestor that no other refills are due, in the near future, with this provider at this time: Yes The last office visit in the department: 05-24-23 Does the patient have a future office visit with this provider/department: Yes Requested Prescriptions Pending Prescriptions Disp Refills metFORMIN ER (GLUCOPHAGE XR) 500 mg 24 hr tablet 90 tablet 3 Sig: Take 1 tablet by mouth daily with breakfast. Yolanda Bryant November 08, 2023 10:11 AM [facility] Miscellaneous Notes* Telephone Encounter - Yolanda Newman - 11/08/2023 10:10 AM EDT Prescription Refill Information The patient has been identified by name and date of : Yes Caregiver verified no other encounters exist for this prescription request: Yes Caregiver confirmed with patient/requestor that no other refills are due, in the near future, with this provider at this time: Yes The last office visit in the department: 05-24-23 Does the patient have a future office visit with this provider/department: Yes Requested Prescriptions Pending Prescriptions Disp Refills metFORMIN ER (GLUCOPHAGE XR) 500 mg 24 hr tablet 90 tablet 3 Sig: Take 1 tablet by mouth daily with breakfast. Yolanda Bryant November 08, 2023 10:11 AM documented in this encounterDo[facility]06-03-2024 Telephone encounter Note * Telephone Encounter - Bree Sosa - 10/31/2023 1:09 PM EDT Patient has been identified by name and date of : Yes, Provider Aric Zapien MD Date 10/31/2023 Time 06/09/2023 Patient phones for refill(s): Requested Prescriptions Pending Prescriptions Disp Refills furosemide (LASIX) 40 mg tablet 90 tablet 3 Sig: Take 1 tablet by mouth once daily. Date of last office visit in primary care: 05/24/2024 Date of next office visit in primary care: 11/22/2023 Please advise. Thank you. Bree Johnson. [facility] Miscellaneous Notes* Telephone Encounter - Bree Sosa - 10/31/2023 1:09 PM EDT Patient has been identified by name and date of : Yes, Provider Aric Zapien MD Date 10/31/2023 Time 06/09/2023 Patient phones for refill(s): Requested Prescriptions Pending Prescriptions Disp Refills furosemide (LASIX) 40 mg tablet 90 tablet 3 Sig: Take 1 tablet by mouth once daily. Date of last office visit in primary care: 05/24/2024 Date of next office visit in primary care: 11/22/2023 Please advise. Thank you. Bree [facility] [place]. documented in this encounterDoctors Hospital07-11-2023 History of Present illness Narrative* Sarah Leone, CYNTHIA - 12/07/2022 2:05 PM EDT This note was created using [employer]. Subjective Reina Sullivan is a 67 year old male. HPI 67-year-old male presents for cough and sore throat. Patient states that he started getting a dry cough a few days ago. He has had a sore throat for about 2 days. No nasal congestion. States his cough is very dry. No fevers. No sick contacts. No vomiting or diarrhea. Still able to eat and drink. Has not tried anything OTC for his symptoms. PAST MEDICAL HISTORY Diagnosis Date Atrial fibrillation (HCC) Dr. 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 Huston TBI (traumatic brain injury) ([facility]) 2 times PAST SURGICAL HISTORY Procedure Laterality Date LEFT HEART CATH,PERCUTANEOUS 09/08/2015 Mel Dewitt: cardiac cath: no disease EF 60%, 2+ MR PAST SURGICAL HISTORY OF collarbone ALLERGIES Dye MEDICATIONS divalproex DR (DEPAKOTE) 500 mg EC tablet^Take 1 tablet by mouth twice daily.^Disp: 180 tablet^Rfl:1 furosemide (LASIX) 40 mg tablet^Take 1 tablet by mouth once daily.^Disp: 90 tablet^Rfl: 3 metoprolol succinate ER (TOPROL XL) 50 mg 24 hr tablet^Take 1 tablet by mouth once daily.^Disp: 90 tablet^Rfl: 3 metFORMIN ER (GLUCOPHAGE XR) 500 mg 24 hr tablet^Take 1 tablet by mouth daily with breakfast.^Disp:30 tablet^Rfl: 11 Lancets lancets^Test blood sugar(s) 1 times daily. Dx: Type 2 DM - Uncontrolled E11 Insulin: No^Disp: 100 Each^Rfl: 11 blood sugar diagnostic (BLOOD GLUCOSE TEST) test strip^Test blood sugar(s) 1 times daily. Dx: Type 2 DM - Uncontrolled E11.65 Insulin: No^Disp: 50 Strip^Rfl: 11 apixaban (ELIQUIS) 5 mg tab tab(s)^Take 1 tablet by mouth twice daily.^Disp: ^Rfl: 0 folic acid/multivit-min/lutein (CENTRUM SILVER ORAL)^Take 1 tablet by mouth once daily.^Disp: ^Rfl:(Patient not taking: Reported on 10/14/2022) FAMILY HISTORY Problem Relation Age of Onset Alzheimer's Disease Mother Breast Cancer Mother other (a fib) Mother Hypertension Father Hyperlipidemia Father other (A fib) Father other (polio) Father Heart Brother Breast Cancer Sister Seizures Son other (austism) Son other (Brain) Son Social History Tobacco Use Smoking status: Former Smokeless tobacco: Never Tobacco comments: Quit in 2005 Review of Systems Constitutional: Negative for chills and fever. HENT: Positive for sore throat. Negative for congestion. Respiratory: Positive for cough. Negative for shortness of breath. Gastrointestinal: Negative for diarrhea and vomiting. Objective BP 112/76 Pulse 60 Temp 36.9 C (98.4 F) (Tympanic) Resp 18 Wt 101.7 kg (224 lb 3.2 oz) SpO2 96% BMI 30.41 kg/m Physical Exam Vitals and nursing note reviewed. Constitutional: General: He is not in acute distress. Appearance: Normal appearance. He is not toxic-appearing. HENT: Right Ear: Tympanic membrane and ear canal normal. Left Ear: Tympanic membrane and ear canal normal. Nose: Nose normal. Mouth/Throat: Mouth: Mucous membranes are moist. Pharynx: Oropharynx is clear. Uvula midline. Posterior oropharyngeal erythema present. No pharyngeal swelling or oropharyngeal exudate. Tonsils: No tonsillar exudate. Eyes: Conjunctiva/sclera: Conjunctivae normal. Cardiovascular: Rate and Rhythm: Normal rate and regular rhythm. Pulmonary: Effort: Pulmonary effort is normal. Breath sounds: Normal breath sounds. Skin: General: Skin is warm and dry. Neurological: Mental Status: He is alert. Assessment and Plan ASSESSMENT/PLAN: 1. Sore throat - ICD9: 462, ICD10: J02.9 (primary diagnosis) - suspect viral - Alere Strep Test negative, no culture pending - Discussed supportive care treatment with fluids, rest and analgesia. - STREP A MOLECULAR (POC) 2. URI, acute - ICD9: 465.9, ICD10: J06.9 - Discussed viral etiology and rationale for treatment. - Symptomatic treatment with prn analgesia - Supportive care with fluids and rest -Declines Rx for cough suppressant, will take something OTC as needed. - COVID WITH FLUA+B, ROUTINE Diagnosis and treatment plan were discussed and questions were answered to the patient's satisfaction. Pt acknowledged understanding of concepts and follow up plan. Specific signs and symptoms that would indicate the need for higher level of care were discussed in detail warranting prompt ER evaluation. CYNTHIA White documented in this encounterDoctors Hospital05-04-2023 History of Past illness Narrative* Problem Noted Date Resolved Date Encounter for issue of repeat prescription 09/3009/30/2022 Fracture of skull 09/30/2022 09/30/2022 Headache 09/30/2022 09/30/2022 High serum creatinine 09/30/2022 09/30/2022 Syncope and collapse 09/30/2022 09/30/2022 Undiagnosed cardiac murmurs 09/30/2022 05/0 08/2022 Encounter for hepatitis C sc reening test for low risk patient 03/09/2022 09/30/2022 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 status epilepticus 06/27/2020 03/25/2021 Hyperglycemia 03/23/2017 03/26/2021 documented as of this encounter (statuses as of 09/30/2022) [facility] History of Past illness Narrative* Problem Noted Date Diagnosed Date Resolved Date Encounter for issue of repeat prescription 09/30/2022 09/30/2022 Fracture of skull 09/30/2022 09/30/2022 Headache 09/30/2022 09/30/2022 High serum creatinine 09/30/20222022 Syncope and collapse 09/30/2022 023 Undiagnosed cardiac murmurs 09/30/2022 09/30/2022 Encounter for hepatitis C sc reening test for low risk patient 03/09/2022 09/30/2022 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 status epilepticus 06/27/2020 03/25/2021 Hyperglycemia 03/23/2017 03/26/2021 documented as of this encounter (statuses as of 12/08/2022) [facility] History of Present illness Narrative* Aric Zpaien MD - 09/30/2022 1:13 PM EDT Patient presents with: 6 Month Exam HPI: Patient presents today for office visit for follow up. DM: Does not check sugars at home Takes Metformin 500 mg daily No vision changes No foot lesions, numbness of pain No polyuria or polydipsia Due for A1c Last one was 04/01/[address] James. Has edema to B/L feet/ankles. Worse on left side. Refers to them feeling like balloons. Elevation helps. Started after apparently stopping his lasix. Legs are not hot or red Denies chest pain Denies shortness of breath, no orthopnea. Is also on diltiazem. No new headaches (Hx of migraines) or dizziness Has been out of Metoprolol and Furosemide for about a month. Per Dr. James's office will not send in refill until he's seen. Scheduled in October. Follows with Neuro. No seizures. Was to have repeated thyroid studies and a bmp after his last labs and never did them. No bleeding or bruising. Has been compliant with those. MEDICATIONS: Current Outpatient Medications Medication Sig metFORMIN ER (GLUCOPHAGE XR) 500 mg 24 hr tablet Take 1 tablet by mouth daily with breakfast. divalproex DR (DEPAKOTE) 500 mg EC tablet Take 1 tablet by mouth twice daily for 14 days. Needs seen and labs to continue to prescribe. furosemide (LASIX) 40 mg tablet Take 1 tablet by mouth once daily. Lancets lancets Test blood sugar(s) 1 times daily. Dx: Type 2 DM - Uncontrolled E11.65 Insulin: No blood sugar diagnostic (BLOOD GLUCOSE TEST) test strip Test blood sugar(s) 1 times daily. Dx: Type 2 DM - Uncontrolled E11.65 Insulin: No folic acid/multivit-min/lutein (CENTRUM SILVER ORAL) Take 1 tablet by mouth once daily. metoprolol succinate ER (TOPROL XL) 50 mg 24 hr tablet Take 50 mg by mouth once daily. apixaban (ELIQUIS) 5 mg tab tab(s) Take 1 tablet by mouth twice daily. Current Facility-Administered Medications Medication Dose Route Frequency perflutren lipid microspheres 1.3 mL in NaCl (PF) 0.9% 10 mL injection (DEFINITY) INTRAVENOUS DIRECTED PRN sodium chloride 0.9 % (flush) 10 mL (BD POSIFLUSH) 10 mL INTRAVENOUS DIRECTED PRN ALLERGIES: ALLERGIES Allergen Reactions Dye Other: See Comments used for heart cath PAST MEDICAL HISTORY Diagnosis Date Atrial fibrillation (HCC) Dr. 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 Huston TBI (traumatic brain injury) ([facility]) 2 times PAST SURGICAL HISTORY Procedure Laterality Date LEFT HEART CATH,PERCUTANEOUS 09/08/2015 Mel Dewitt: cardiac cath: no disease EF 60%, 2+ MR PAST SURGICAL HISTORY OF collarbone FAMILY HISTORY Problem Relation Age of Onset Alzheimer's Disease Mother Breast Cancer Mother other (a fib) Mother Hypertension Father Hyperlipidemia Father other (A fib) Father other (polio) Father Heart Brother Breast Cancer Sister Seizures Son other (austism) Son other (Brain) Son Social History Tobacco Use Smoking status: Former Smokeless tobacco: Never Tobacco comments: Quit in 2005 Reviewed current medications, allergies, past medical history, surgical history, family history andsocial history today. REVIEW OF SYSTEMS No gi or gu complaints. All other reviewed and negative other than HPI. HEALTH MAINTENANCE: Reviewed health maintenance issues today and recommended the following in detail. ABDOMINAL AORTIC ANEURYSM SCREENING Never done DTAP,TDAP,TD(1 - Tdap) Never done COLORECTAL CANCER SCREENING Never done COVID-19 VACCINE(3 - Booster for Moderna series) due on 04/08/2021 DIABETIC FOOT EXAM due on 04/14/2022 ADVANCE DIRECTIVE DISCUSSION due on 05/30/2022 DEPRESSION ASSESSMENT due on 05/30/2022 HBA1C due on 09/29/2022 VITALS: BP 152/100 Pulse 88 Ht 182.9 cm (6') Wt 103.9 kg (229 lb) SpO2 97% BMI 31.06 kg/m Last 4 Encounter Wt Readings: Date: Wt: 04/01/2022 99.8 kg (220 lb) 03/09/2022 101.2 kg (223 lb) 03/08/2022 99.8 kg (220 lb) 09/24/2021 102.5 kg (226 lb) PHYSICAL EXAMINATION: General appearance: Well appearing, alert, in no acute distress, well-hydrated, well nourished. Skin: venous stasis changes. Head: Normocephalic, no masses, lesions, tenderness or abnormalities Neck: Supple, no adenopathy Lungs: Lungs clear to auscultation. No wheezing, rhonchi, rales Heart: irregularly irregular. Rate is still ok. Normal s1 and s2 Abdomen: Normal abdominal exam, Abdomen soft, non-tender. Bowel sounds normal. No masses, organomegaly Extremities: Edema: one plus pitting no redness or warmth. , No cords. No calf tenderness. Lara's sign negative. Musculoskeletal: No joint swelling, deformity, or tenderness Feet:Shoes and socks removed, sensitive to 10 gm monofilament, nails notable for Crumbly, Deformed,Hypertrophic, or Yellowish, decreased pp's. Declines claudication. ASSESSMENT/PLAN: 1. Seizures (HCC) - ICD9: 780.39, ICD10: R56.9 (primary diagnosis) - check labs. - VALPROIC A/DEPAKENE 2. Other migraine without status migrainosus, not intractable - ICD9: 346.80, ICD10: G43.809 - stable 3. Primary pulmonary HTN (HCC) - ICD9: 416.0, ICD10: I27.0 - per [facility] 4. Primary hypertension - ICD9: 401.9, ICD10: I10 - poor control - resume betablocker - Goal of BP <130/80 - CBC + DIFF - COMP METABOLIC PANEL 5. 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 (HCC) - ICD9: 427.31, ICD10: I48.21 - continue eliquis. Get back on betablocker. Recheck bp and pulse next visit. 6. Pulmonary hypertension (HCC) - ICD9: 416.8, ICD10: I27.20 - resume meds. - FUROSEMIDE 40 MG TABLET - METOPROLOL SUCCINATE ER 50 MG TABLET,EXTENDED RELEASE 24 HR 7. Type 2 diabetes mellitus without complication, without long-term current use of insulin (HCC) - ICD9: 250.00, ICD10: E11.9 - Controlled - Continue current medications - HGB A1C - CONSULT TO PODIATRY 8. Elevated TSH - ICD9: 794.5, ICD10: R79.89 - TSH BLD - T4/FTI/T4U - T3 BLD 9. History of skull fracture - ICD9: V15.51, ICD10: Z87.81 - stable. 10. Anxiety state - ICD9: 300.00, ICD10: F41.1 - stable. 11. Edema, unspecified type - ICD9: 782.3, ICD10: R60.9 - probably related to noncompliance. Red flags for re-assessment reviewed with patient in detail. Recheck in two weeks. - FUROSEMIDE 40 MG TABLET 12. Screening for AAA (abdominal aortic aneurysm) - ICD9: V81.2, ICD10: Z13.6 - US SCREENING FOR AAA 13. Screening for colon cancer - ICD9: V76.51, ICD10: Z12.11 - COLOGUARD 14. Stage 3 chronic kidney disease, unspecified whether stage 3a or 3b CKD (HCC) - ICD9: 585.3, ICD10: N18.30 - follow labs. 15. Peripheral vascular disease (HCC) - ICD9: 443.9, ICD10: I73.9 - check PVR 16. Pain due to onychomycosis of nail - ICD9: 110.1, 729.5, ICD10: B35.1, M79.609 - CONSULT TO PODIATRY Aric YATES in two weeks. documented in this encounterDoctors Hospital01-20-2023 Miscellaneous Notes* Telephone Encounter - Karla Ferguson Ma - 06/18/2022 9:21 AM EST Last office visit: 04/01/22 F/u scheduled: 09/30/22 Karla Ferguson Ma * Telephone Encounter - Jesi Bryant - 06/18/2022 9:06 AM EST Patient has been identified by name and date of : Yes Requested Prescriptions Pending Prescriptions Disp Refills divalproex DR (DEPAKOTE) 500 mg EC tablet 180 tablet 1 Sig: Take 1 tablet by mouth twice daily for 14 days. Needs seen and labs to continue to prescribe. RX INSTRUCTIONS: Patient aware RX will be sent to pharmacy. No need to notify patient. Jesi Bryant documented in this encounterDoctors Hospital01-13-2023 History of Present illness Narrative* Leanna Benavidez RN - 06/11/2022 11:32 AM EST ACM COLEMAN RN Afsaneh Mercedes, My name is Leanna Benavidez RN. I am calling from [facility]. Your Healthcare team and Medicare provider would like to assist in your success in taking prescribed medications for cardiovascular health and/or diabetes. Is this a good time to talk with you? NO Called patient, home line no answer just rings, home phone [phone] not working Thank you - Leanna Benavidez RN Patient identified by name and date of . Patient Attributed To: QAE Payer: [employer] Reason for review or outreach: Medication Adherence Medication Adherence Review Details: Diabetes Summary / Findings: As per above Action Taken: Data submitted to Payer Other Contact made with patient: No, Unable to leave message Leanna Benavidez RN Signature: Leanna Benavidez RN documented in this encounterDoctors Hospital11-29-2022 Miscellaneous Notes* Telephone Encounter - Vickie Badillo Pss - 04/27/2022 1:45 PM EST The patient declined an appointment with general JARRETT. Soonest appointment at [facility] is 08/16/22. Please advise. * Telephone Encounter - Berenice Weston Pss - 04/27/2022 11:49 AM EST Patient returned call and stated there is no way he can drive, or his friend is able to drive all the way to [place] for an appt. Requesting call back from nurse to discuss soonest appt herein Mel. Please advise. * Telephone Encounter - Vickie Geronimo Justino Pss - 04/27/2022 11:27 AM EST Both of the patient's phone numbers are non-working. Called the patient's and scheduled an appointment with General JARRETT to review test results. * Telephone Encounter - AUTUMN Santiago - 04/27/2022 10:21 AM EST TC to patient with number coming back as unavailable. Please try again later. AUTUMN Santiago * Telephone Encounter - AUTUMN Santiago - 04/27/2022 10:20 AM EST ----- Message from Aric Huston Jr., MD sent at 04/27/2022 9:24 AM EST ----- Pt MRI showing multiple chronic infarcts. Unknown if any of these associated with new findings at time of last evaluation in office. Please have patient follow up ELLE with JARRETT to go over results andconfirm stroke risk factors controlled. Note that no reports of large vessel disease on imaging studies. Aric Huston MD documented in this encounterDoctors Hospital11-28-2022 History of Present illness Narrative* Felicita Ruiz, RT(R) - 04/26/2022 1:40 PM EST Radiology Service Progress Note PATIENT NAME: Reina Sullivan DATE OF SERVICE: April 26, 2022 TIME: 1:58 PM PATIENT IDENTITY VERIFICATION COMPLETED USING TWO (2) IDENTIFIERS: Name and Date of confirmedby patient verbally. FALL SCREENING: Has the patient had 2 falls in the last year or 1 fall with injury or currently using an Ambulatory Assistive Device (Walker, Cane, Wheelchair, Crutches, etc.)? No PATIENT GENDER DATA: Male PATIENT RELEVANT IMPLANT DATA REVIEWED: Yes RADIOLOGY DEPARTMENT: MR; Exam(s) Completed: Head: Routine Brain [place] [facility] [place] MRA Neck: Carotids MRA, bilateral PERIPHERAL IV DATA: Not applicable SIGNED BY: RT Rajendra(R) April 26, 2022 1:58 PM documented in this encounterDoctors Hospital11-16-2022 Miscellaneous Notes* Telephone Encounter - Jovana Cleveland - 04/14/2022 10:33 AM EST 234 # just rings and rings and then eventually disconnects. 330 # is a busy signal. Letter mailed. Closing phone call. Jovana Cleveland * Telephone Encounter - Arturo Garza LPN - 04/07/2022 11:43 AM EST TC to pt, phone rings, no answer, unable to leave message. Arturo Garza LPN * Telephone Encounter - Nida Root LPN - 04/05/2022 9:47 AM EST Busy signal try again later. Also has message from neuro trying to reach him. * Telephone Encounter - Jaison Max PA-C - 04/03/2022 6:12 AM EDT Please advise blood sugars are in prediabetic range which is great, nice improvement. He is not showing any microscopic protein to indicate kidney damage. His renal function is slightly worse with a creatinine of 1.42 placing him at stage III A renal insufficiency. His BUN indicates that he is on the dry side so it might help to push fluids. This is likely in part from from his Lasix. I would recommend cutting lasix back to 40mg once a day and rechecking labs. Should try to push fluids. Please have him do daily weights and record them over the next 2 weeks. We would need to know if weight increases more than 3lbs in a week in addition to any leg swelling or SOB. I also see that MRI scheduled but no EEG scheduled. Has outstanding orders from 03/08/2022: please assist in scheduling. Recheck BMP in 2 weeks. Telephone on 04/03/22 BASIC METABOLIC PNL The following approved medication requests have been transmitted electronically. Requested Prescriptions Signed Prescriptions Disp Refills furosemide (LASIX) 40 mg tablet Sig: Take 1 tablet by mouth once daily. Authorizing Provider: Jaison MAX PA-C documented in this encounterDoctors Hospital11-14-2022 Miscellaneous Notes* Telephone Encounter - Aric Huston Jr., MD - 04/12/2022 4:22 PM EST Ordering MRA head and neck in addition to MRI given new visual deficit per others notes. ECHO ordered by Jaison Max PA-C. On Eliquis and statin. Glucose goal <140/90. BP goal <140. Again, if suspect this is acute event would recommend evaluation in ER. Aric Huston MD documented in this encounterDoctors Hospital11-14-2022 History of Present illness Narrative* Aric Huston Jr., MD - 04/12/2022 4:19 PM EST Visual field cut new. Was not on office exams. Unclear time of onset. If patient thinks quite recent, should be evaluated in ER for possible new stroke. Poor historian and has been non-compliant withmy prior recs for MRI and EEG. If pt not going to ER, then needs to get MRI scheduled ELLE. Again, this deficit was not picked up in office during prior 2 visits. Aric Huston MD * Marni Hare OD - 04/12/2022 3:18 PM EST 1. Left homonymous inferior quadrantanopia Patient has a history of CVA x 3 but did not notice change in peripheral vision until PCP did confrontation testing Educated pt on condition that is permanent Suspect one of previous CVA in parietal lobe right side Patient is scheduled for MRI but considering cancelling due to side effects of contrast dye Educated pt on importance of continued care with neurology as scheduled 2. Myopia, bilateral 3. Presbyopia 4. Regular astigmatism of left eye Finalized spec rx-minimal changes 5. Combined forms of age-related cataract of both eyes Mild-monitor 6. Punctate keratitis, bilateral Recommended gel nightly Follow-up in 6 months for repeat 30-2 dry eye follow-up Marni Hare, OD April 12, 2022 3:18 PM documented in this encounterDoctors Hospital11-14-2022 Instructions* Patient Instructions* Marni Hare, OD - 04/12/2022 3:12 PM EST Use Refresh or Systane gel nightly in both eyes documented in this encounterDoctors Hospital11-04-2022 Miscellaneous Notes* Telephone Encounter - Pam Venegas LPN - 04/02/2022 12:47 PM EDT Attempted to reach patient, no answer or machine to leave message. Pam Venegas LPN * Telephone Encounter - Pam Venegas LPN - 04/02/2022 12:44 PM EDT Images from the original note were not included. Aric Huston Jr., MD P Wstr Neur Betzaida Nurse Depakote level is elevated. Please contact pt and confirm how much he is taken as this has not beenthe case in the past and no impairment of hepatic function. Will also repeat VPA level in 1 week todetermine if changes necessary. Aric Huston MD Copied and pasted from Results documented in this encounterDoctors Hospital11-03-2022 History of Present illness Narrative* Aric Zapien MD - 04/01/2022 10:35 AM EDT Patient presents with: Diabetes HPI: Patient presents today for office visit for HTN: Patient is compliant with meds Yes Monitors bp at home: No. Denies side effects: Yes. Chest pain: No. Dyspnea: No. Edema: No. Palpitations: No. Syncope: No. Headache: No. Dizziness: No. DM: Reports overall feeling well. Medication side effects: No. Home sugar check frequency/results:no Hypoglycemic spells: No. Watching diet: Yes. Unexpected weight loss: No. Polyuria, polydipsia: No. Vision Changes: Seeing eye doctor soon. Needs new eye glasses. Not driving anymore due to vision. Foot lesions or numbness or pain: No. Had a previous episode of thyroid disease years ago. Was on meds for a while and then took him off.Recently has Is mildly off balance. Sometime can be confused. Did just see Dr. Huston. For his seizures. They wondered if it was related to his thyroid. He did not do his mri or eeg het. He also has labs ordered by neurology and Janusz(he just saw him as well) but has not done them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 review. At this time, can only go by available information and thus, will continue to treat as epilepsy with "subjective control" by means of VPA DR 500mg BID. That said, the patient is an inconsistent historian and unclear if or whether patient is still having spells of AMS. That said will again order MRI brain and EEG to evaluate for etiology of possible seizures and evidence of epileptiform abnormalities. For now will continue VPA DR 500mg BID with pt being made aware of SE and ADRs (family in room). Will check CMP, CBC, VPA levels. Reviewed with them sz risks and precautions. Given inconsistent history feel pt should continue to NOT drive. Pt will follow up in 6 months or sooner prn. Again, have requested outside neurology records. Aric Huston MD I spent a total of 32 minutes on the date of the service which included preparing to see the patient, [id number] patient care, completing clinical documentation, obtaining and/or reviewing separately obtained history, performing a medically appropriate examination, counseling and educating the pat ient/family/caregiver, ordering medications, tests, or procedures, and communicating results to thepatient/family/caregiver. documented in this encounterDoctors Hospital10-07-2022 Miscellaneous Notes* Telephone Encounter - Kayleen Quintero LPN - 03/05/2022 8:10 AM EDT Patient has been identified by name and date of : Yes Patient phones for refill(s): Requested Prescriptions Pending Prescriptions Disp Refills divalproex DR (DEPAKOTE) 500 mg EC tablet 60 tablet 5 Sig: Take 1 tablet by mouth twice daily. Needs seen and labs to continue to prescribe. Date of last office visit in primary care: 09/24/21 next apt 03/09/22 Last 2 Encounter Wt Readings: Date: Wt: 09/24/2021 102.5 kg (226 lb) 03/25/2021 106.6 kg (235 lb) Previous labs/tests for medication: Not applicable Thank you. Kayleen Quintero LPN * Telephone Encounter - Mecca Orozco - 03/04/2022 6:12 PM EDTSummary: Refill Patient has been identified by name and date of : Yes Last office visit in this department: 09/24/2021 RX INSTRUCTIONS: Patient aware RX will be sent to pharmacy. No need to notify patient. Patient phones requesting refills as follows: Requested Prescriptions Pending Prescriptions Disp Refills divalproex DR (DEPAKOTE) 500 mg EC tablet 60 tablet 5 Sig: Take 1 tablet by mouth twice daily. Needs seen and labs to continue to prescribe. Please review and advise. Mecca Orozco documented in this encounterDoctors Hospital09-27-2022 History of Present illness Narrative* Joceline Waldron RN - 02/23/2022 2:29 PM EDT ACM COLEMAN RN Action/FYI: Chart review completed for Medication Adherence - Statin Use in Patients with Cardiovascular Disease at the request of [employer] ([facility]). No statin order noted. No statin exclusionary criteria clearly identified/coded for 2020. Request: We are bringing this patient to your attention to request you assess/code exclusions or consider moderate-intensity statin at lowest dose and frequency Q48h, MWFS or other - to avoid intolerance and side effects. For patients allergic to, declining statins or who experience myalgia, the following may be helpful: ICD10: T46.6X5A - Allergy to statins ICD10: Z53.20 - Patient declines statin therapy ICD 10: M79.1 - Myalgia due to statin therapy Patient identified by name and date of . The HEDIS Measure, Statin Therapy for Patients with Cardiovascular Disease is based on 2013 [place] [employer]/[place] [employer] (ACC/AHA) guidelines which recommends moderate tohigh-intensity statin therapy for prevention of ASCVD events. Patient Attributed To: QAE Payer: [facility] Reason for review or outreach: Medication Adherence Medication Adherence Review Details: Cholesterol, Hypertension, and Diabetes Summary / Findings: See Above Action Taken: Encounter routed to provider Contact made with patient: No, Chart review only. Signature: Joceline Waldron RN documented in this encounterDoctors Hospital04-28-2022 History of Present illness Narrative* Aric Zapien MD - 09/24/2021 3:17 PM EDT No chief complaint on file. HPI: Patient presents today for office visit for follow up. CARDIO:is overdue to see cardiology. Has not been in to see Dr. James in some time. No chest pain No lightheadedness. No edema. No palpitations. NEURO:no seizures. He did not follow with Dr. Huston like he was to. He had ordered an MRI and he did not do it. He had ordered an EEG and he did not do that either. No new headache or neuro copmlaints. DM: no polydipsia. No new polyuria. No hypoglycemic spells. HYPERTENSION:bp is well controlled. ANTICOAG: no bleeding issues. MEDICATIONS: Current Outpatient Medications Medication Sig folic acid/multivit-min/lutein (CENTRUM SILVER ORAL) Take 1 tablet by mouth once daily. metoprolol succinate ER (TOPROL XL) 50 mg 24 hr tablet Take 50 mg by mouth once daily. divalproex DR (DEPAKOTE) 500 mg EC tablet Take 1 tablet by mouth twice daily. Needs seen and labs to continue to prescribe. metFORMIN ER (GLUCOPHAGE XR) 500 mg 24 hr tablet Take 1 tablet by mouth daily with breakfast. diltiazem CD (CARDIZEM CD) 240 mg 24 hr capsule Take 1 capsule by mouth once daily. apixaban (ELIQUIS) 5 mg tab tab(s) Take 1 tablet by mouth twice daily. furosemide (LASIX) 40 mg tablet Take 40 mg by mouth twice daily. ascorbic acid, vitamin C, (VITAMIN C) 500 mg tablet Take 500 mg by mouth once daily. atorvastatin (LIPITOR) 80 mg tablet metoprolol tartrate, short acting, (LOPRESSOR) 50 mg tablet Take 1 tablet by mouth twice daily. No current facility-administered medications for this visit. ALLERGIES: ALLERGIES Allergen Reactions Dye Other: See Comments used for heart cath PAST MEDICAL HISTORY Diagnosis Date Atrial fibrillation (HCC) Dr. 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 Huston TBI (traumatic brain injury) ([facility]) 2 times PAST SURGICAL HISTORY Procedure Laterality Date PAST SURGICAL HISTORY OF collarbone FAMILY HISTORY Problem Relation Age of Onset Alzheimer's Disease Mother Breast Cancer Mother other (a fib) Mother Hypertension Father Hyperlipidemia Father other (A fib) Father other (polio) Father Heart Brother Breast Cancer Sister Seizures Son other (austism) Son other (Brain) Son Social History Tobacco Use Smoking status: Former Smoker Smokeless tobacco: Never Used Tobacco comment: Quit in 2005 Substance Use Topics Alcohol use: Not on file Drug use: Not on file Reviewed current medications, allergies, past medical history, surgical history, family history andsocial history today. REVIEW OF SYSTEMS All other reviewed and negative other than HPI. HEALTH MAINTENANCE: Reviewed health maintenance issues today and recommended the following in detail. URINE ALBUMIN:CREATININE RATIO Never done DILATED RETINAL EXAM Never done HEPATITIS C SCREENING Never done HIV SCREENING Never done DTAP,TDAP,TD(1 - Tdap) Never done COLORECTAL CANCER SCREENING -discussed. PROSTATE CANCER SCREENING DISCUSSION -Had discussion with patient regarding risks and benefits of prostate screening. Allowed them to decide if they wished to proceed with screening including YANDY andPSA. COVID-19 VACCINE-has had three HBA1C due on 09/23/2021 VITALS: BP 122/82 Pulse 88 Wt 102.5 kg (226 lb) BMI 29.02 kg/m Last 4 Encounter Wt Readings: Date: Wt: 03/25/2021 106.6 kg (235 lb) 03/12/2021 106.6 kg (235 lb) 06/27/2020 106.6 kg (235 lb) 05/07/2020 104.3 kg (230 lb) PHYSICAL EXAMINATION: General appearance: Well appearing, alert, in no acute distress, well-hydrated, well nourished. Skin: Skin color, texture, turgor normal, no suspicious rashes or lesions Head: Normocephalic, no masses, lesions, tenderness or abnormalities Lungs: Lungs clear to auscultation. No wheezing, rhonchi, rales Heart: irregular. Normal s1 and s2 Abdomen: Normal abdominal exam, Abdomen soft, non-tender. Bowel sounds normal. No masses, organomegaly Extremities: No deformities, edema, skin discoloration, clubbing or cyanosis. Good capillary refill. Musculoskeletal: No joint swelling, deformity, or tenderness Peripheral pulses: Normal Neuro: Gait normal. Reflexes normal and symmetric. Sensation grossly intact. ASSESSMENT/PLAN: 1. 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 (HCC) - ICD9: 427.31, ICD10: I48.21 (primary diagnosis) - Red flags for re-assessment reviewed with patient in detail. - CONSULT TO CARDIOLOGY 2. Type 2 diabetes mellitus without complication, without long-term current use of insulin (HCC) - ICD9: 250.00, ICD10: E11.9 Controlled. - Continue current medications - METFORMIN ER 500 MG TABLET,EXTENDED RELEASE 24 HR - CBC + DIFF - COMP METABOLIC PANEL - HGB A1C - LIPID PANEL BASIC - CONSULT TO OPHTHALMOLOGY 3. Primary pulmonary HTN (HCC) - ICD9: 416.0, ICD10: I27.0 - CONSULT TO CARDIOLOGY 4. Enlarged thoracic aorta (HCC) - ICD9: 447.8, ICD10: I77.89 - CONSULT TO CARDIOLOGY 5. Mitral valve insufficiency, unspecified etiology - ICD9: 424.0, ICD10: I34.0 - CONSULT TO CARDIOLOGY 6. Non-rheumatic tricuspid valve insufficiency - ICD9: 424.2, ICD10: I36.1 - CONSULT TO CARDIOLOGY 7. Primary hypertension - ICD9: 401.9, ICD10: I10 - good control - Continue current medication(s) - Goal of BP <130/80 8. Seizures (HCC) - ICD9: 780.39, ICD10: R56.9 - overdue for follow up. - VALPROIC A/DEPAKENE - CONSULT TO NEUROLOGY 9. Mixed hyperlipidemia - ICD9: 272.2, ICD10: E78.2 - to be determined upon return of lab results - is not taking his statins. Will check. 10. Screening for colon cancer - ICD9: V76.51, ICD10: Z12.11 - will order - COLOGUARD 11. Need for hepatitis C screening test - ICD9: V73.89, ICD10: Z11.59 - HEP C AB IA W/CONF SCRN 12. Screening for HIV (human immunodeficiency virus) - ICD9: V73.89, ICD10: Z11.4 - HIV 1 2 COMBO(AG/AB),WITH REFLEX TO DIFFERENTIATION Aric CHENGO in six months and prn. Medical Decision Making documented in this encounterDoctors Hospital10-14-2021 History of Present illness Narrative* Machelle Funez, RT(R) - 03/12/2021 2:40 PM EDT Radiology Service Progress Note PATIENT NAME: Reina Sullivan DATE OF SERVICE: March 12, 2021 TIME: 2:38 PM PATIENT IDENTITY VERIFICATION COMPLETED USING TWO (2) IDENTIFIERS: Name and Date of confirmedby patient verbally. FALL SCREENING: Has the patient had 2 falls in the last year or 1 fall with injury or currently using an Ambulatory Assistive Device (Walker, Cane, Wheelchair, Crutches, etc.)? No PATIENT GENDER DATA: Male PATIENT RELEVANT IMPLANT DATA REVIEWED: Yes RADIOLOGY DEPARTMENT: General X-ray: Exam(s) Completed: Lower Extremity X- Ray(s): Ankle, Right and Foot, Right PERIPHERAL IV DATA: Not applicable SIGNED BY: RT Ale(R) March 12, 2021 2:38 PM documented in this encounterDoctors Hospital01-29-2021 History of Past illness Narrative* Problem Noted Date Resolved Date 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 status epilepticus 06/27/2020 03/25/2021 Hyperglycemia 03/23/2017 03/26/2021 documented as of this encounter (statuses as of 09/11/2021) [facility] of Past illness Narrative* Problem Noted Date Resolved Date 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 status epilepticus 06/27/2020 03/25/2021 Hyperglycemia 03/23/2017 03/26/2021 documented as of this encounter (statuses as of 09/24/2021) [facility] of Past illness Narrative* Problem Noted Date Resolved Date 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 status epilepticus 06/27/2020 03/25/2021 Hyperglycemia 03/23/2017 03/26/2021 documented as of this encounter (statuses as of 03/05/2022) [facility] of Past illness Narrative* Problem Noted Date Resolved Date 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 status epilepticus 06/27/2020 03/25/2021 Hyperglycemia 03/23/2017 03/26/2021 documented as of this encounter (statuses as of 03/08/2022) [facility] of Past illness Narrative* Problem Noted Date Resolved Date 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 status epilepticus 06/27/2020 03/25/2021 Hyperglycemia 03/23/2017 03/26/2021 documented as of this encounter (statuses as of 03/10/2022) [facility] History of Past illness Narrative* Problem Noted Date Resolved Date 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 status epilepticus 06/27/2020 03/25/2021 Hyperglycemia 03/23/2017 03/26/2021 documented as of this encounter (statuses as of 03/16/2022) [facility] History of Past illness Narrative* Problem Noted Date Resolved Date 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 status epilepticus 06/27/2020 03/25/2021 Hyperglycemia 03/23/2017 03/26/2021 documented as of this encounter (statuses as of 03/26/2022) [address]29-2021 History of Past illness Narrative* Problem Noted Date Resolved Date 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 status epilepticus 06/27/2020 03/25/2021 Hyperglycemia 03/23/2017 03/26/2021 documented as of this encounter (statuses as of 04/01/2022) [address]2021 History of Past illness Narrative* Problem Noted Date Resolved Date 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 status epilepticus 06/27/2020 03/25/2021 Hyperglycemia 03/23/2017 03/26/2021 documented as of this encounter (statuses as of 04/02/2022) [address]-2021 History of Past illness Narrative* Problem Noted Date Resolved Date 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 status epilepticus 06/27/2020 03/25/2021 Hyperglycemia 03/23/2017 03/26/2021 documented as of this encounter (statuses as of 04/13/2022) [address]2021 History of Past illness Narrative* Problem Noted Date Resolved Date 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 status epilepticus 06/27/2020 03/25/2021 Hyperglycemia 03/23/2017 03/26/2021 documented as of this encounter (statuses as of 04/13/2022) [address]-2021 History of Past illness Narrative* Problem Noted Date Resolved Date 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 status epilepticus 06/27/2020 03/25/2021 Hyperglycemia 03/23/2017 03/26/2021 documented as of this encounter (statuses as of 04/14/2022) [address]-2021 History of Past illness Narrative* Problem Noted Date Resolved Date 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 status epilepticus 06/27/2020 03/25/2021 Hyperglycemia 03/23/2017 03/26/2021 documented as of this encounter (statuses as of 04/27/2022) [address]21 History of Past illness Narrative* Problem Noted Date Resolved Date 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 status epilepticus 06/27/2020 03/25/2021 Hyperglycemia 03/23/2017 03/26/2021 documented as of this encounter (statuses as of 06/11/2022) [facility] History of Past illness Narrative* Problem Noted Date Resolved Date 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 status epilepticus 06/27/2020 03/25/2021 Hyperglycemia 03/23/2017 03/26/2021 documented as of this encounter (statuses as of 06/18/2022) [facility] [place] [facility] Diagnosis Type 2 diabetes mellitus without complication, without long-term current use of insulin (HCC) [facility] [place] [facility]* Diagnosis 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 (HCC)- Primary Atrial fibrillation Type 2 diabetes mellitus without complication, without long-term current use of insulin (HCC) Primary pulmonary HTN (HCC) Primary pulmonary hypertension Enlarged thoracic aorta (HCC) Thoracic aortic ectasia Mitral valve insufficiency, unspecified etiology Non-rheumatic tricuspid valve insufficiency Tricuspid valve disorders, specified as nonrheumatic Primary hypertension Unspecified essential hypertension Seizures (HCC) Other convulsions Mixed hyperlipidemia Screening for colon cancer Special screening for malignant neoplasms, colon Need for hepatitis C screening test Special screening examination for other specified viral diseases Screening for HIV (human immunodeficiency virus) Special screening examination for other specified viral diseases [facility] [place] [facility]* Diagnosis Seizures (HCC) Other convulsions [facility] encounter [facility] noteNo assessment information availableWTriHealth Work Phone: Evaluation note* Diagnosis 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 status epilepticus, unspecified epilepsy type (HCC)- Primary Seizures (HCC) Other convulsions [facility] [place] [facility]* Diagnosis Medicare annual wellness visit, initial- Primary Routine general medical examination at a health care facility 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 (HCC) Atrial fibrillation Non-rheumatic tricuspid valve insufficiency Tricuspid valve disorders, specified as nonrheumatic Mitral valve insufficiency, unspecified etiology Enlarged thoracic aorta (HCC) Thoracic aortic ectasia Primary pulmonary HTN (HCC) Primary pulmonary hypertension Primary hypertension Unspecified essential hypertension Mixed hyperlipidemia Hyperglycemia Other abnormal glucose Encounter for hepatitis C screening test for low risk patient Need for COVID-19 vaccine Need for vaccination Need for prophylactic vaccination and inoculation against unspecified single disease Presbyopia of both eyes Multiple atypical skin moles Loss of lateral visual alexandra [facility] [place] [facility]* Diagnosis 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 (HCC)- Primary Atrial fibrillation Seizures (HCC) Other convulsions Primary pulmonary HTN (HCC) Primary pulmonary hypertension Primary hypertension Unspecified essential hypertension Mixed hyperlipidemia Type 2 diabetes mellitus without complication, without long-term current use of insulin (HCC) History of thyroiditis Personal history of other endocrine, metabolic, and immunity disorders Enlarged thoracic aorta (HCC) Thoracic aortic ectasia Screening for AAA (abdominal aortic aneurysm) Screening for other and unspecified cardiovascular conditions [facility] [place] [facility]* Diagnosis Nonintractable epilepsy without status epilepticus, unspecified epilepsy type (HCC)- Primary [facility] Diagnosis Left homonymous inferior quadrantanopia- Primary Myopia, bilateral Myopia Presbyopia Regular astigmatism of left eye Regular astigmatism Combined forms of age-related cataract of both eyes Other and combined forms of senile cataract Punctate keratitis, bilateral [facility] [place] [facility]* Diagnosis Other symptoms and signs involving the nervous system- Primary [facility] [place] [facility]* Diagnosis Elevated serum creatinine- Primary Other nonspecific findings on examination of blood [facility] [place] [facility]* Diagnosis Seizures (HCC) Other convulsions [facility] Se[facility]ures ([facility])- Primary Other convulsions Other migraine without status migrainosus, not intractable Primary pulmonary HTN (HCC) Primary pulmonary hypertension Primary hypertension Unspecified essential hypertension 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 (HCC) Atrial fibrillation Pulmonary hypertension (HCC) Other chronic pulmonary heart diseases Type 2 diabetes mellitus without complication, without long-term current use of insulin (HCC) Elevated TSH Nonspecific abnormal results of thyroid function study History of skull fracture Personal history of traumatic fracture Anxiety state Anxiety state, unspecified Edema, unspecified type Screening for AAA (abdominal aortic aneurysm) Screening for other and unspecified cardiovascular conditions Screening for colon cancer Special screening for malignant neoplasms, colon Stage 3 chronic kidney disease, unspecified whether stage 3a or 3b CKD (HCC) Peripheral vascular disease (HCC) Peripheral vascular disease, unspecified Pain due to onychomycosis of nail Dermatophytosis of nail documented [facility] [place] [facility]* Diagnosis Sore throat- Primary Acute pharyngitis URI, acute Acute upper respiratory infections of unspecified site [facility] [place] [facility]* Diagnosis 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 status epilepticus, unspecified epilepsy type (HCC) Other symptoms and signs involving the nervous system [facility] Onset Date Resolution Status Atrial fibrillation with rapid ventricular response acute Essential hypertension chron ic Valvular heart disease chron ic [facility] Work Phone: Evaluation note* Diagnosis Pulmonary hypertension (HCC) Other chronic pulmonary heart diseases Edema, unspecified type [facility] [place] [facility]* Diagnosis Type 2 diabetes mellitus without complication, without long-term current use of insulin (HCC) [facility] [place] [facility]* Diagnosis 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, late effect of cerebrovascular disease Seizures (HCC) Other convulsions Mitral valve insufficiency, unspecified etiology Non-rheumatic tricuspid valve insufficiency Tricuspid valve disorders, specified as nonrheumatic Left atrial enlargement Cardiomegaly 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 (HCC) Atrial fibrillation longterm current use of 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 Long-term (current) use of anticoagulants Pulmonary hypertension (HCC) Other chronic pulmonary heart diseases Enlarged thoracic aorta (HCC) Thoracic aortic ectasia Primary hypertension Unspecified essential hypertension Mixed hyperlipidemia Chronic renal failure (CRF), stage 3a (HCC) Type 2 diabetes mellitus without complication, without long-term current use of insulin (HCC) Adjustment disorder with mixed emotional features Adjustment disorder with mixed anxiety and depressed mood Anxiety state Anxiety state, unspecified Encounter for immunization Need for other specified prophylactic vaccination against single bacterial disease Screening for colon cancer Special screening for malignant neoplasms, colon Screening for abdominal aortic aneurysm Screening for other and unspecified cardiovascular conditions Incurvated nail Other specified disease of nail [facility] [place] [facility]* Diagnosis Acute right ankle pain Foot pain, right Pain in limb [facility]* Diagnosis Seizures (HCC) Other convulsions [facility]* Diagnosis Type 2 diabetes mellitus without complication, without long-term current use of insulin (HCC)- Primary Fall, initial encounter Screening for lipid disorders Acute low back pain without sciatica, unspecified back pain laterality Fall, initial encounter [facility] [place] [facility]* Diagnosis Compression fracture of L1 vertebra, initial encounter (HCC)- Primary [facility] [place] [facility]* Diagnosis Type 2 diabetes mellitus without complication, without long-term current use of insulin (HCC)- Primary documented in this encounter [facility] for referral (narrative)* Outpatient Procedure (Routine) - Pending Review Specialty Diagnoses / Procedures Referred By Jacqueline cummings Referred To Contact [facility] Diagnoses 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 status epilepticus, unspecified epilepsy type (HCC) Procedures EPIL EEG ROUTINE ELECTROENCEPHALOGRAM REC COMA/SLEEP ONLY Aric Huston Jr., MD [address] [facility] [address] [place] [address] [facility] [place] [address] [place] [address] Referral ID Status Reason Start Date Expiration Date Visits Requested Visits Authorized [id number] Pending Review Auto-Generat ed Referral 2 03/08/2023 1 1 * MRI/CT (Routine) - Authorized Specialty Diagnoses / Procedures Referred By Jacqueline cummings Referred To Contact MR IMAGING Diagnoses 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 status epilepticus, unspecified epilepsy type (HCC) Procedures MRI BRAIN WO IVCON MRI BRAIN BRAIN STEM W/O CONTRAST MATERIAL Aric Huston Jr., MD [address] [facility] [address] [place] [address] Mr Imaging Referral ID Status Reason Start Date Expiration Date Visits Requested Visits Authorized [id number] Authorized Auto-Generat ed Referral 2 04/07/2023 1 1 [facility] for referral (narrative)* Outpatient Procedure (Routine) - Pending Review Specialty Diagnoses / Procedures [facility]erred To Contact [facility] Diagnoses 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 (HCC) Non-rheumatic tricuspid valve insufficiency Mitral valve insufficiency, unspecified etiology Primary pulmonary HTN (HCC) Enlarged thoracic aorta (HCC) Procedures ECHO ECHO TTHRC R-T 2D W/WOM-MODE COMPL SPEC&COLR D Jaison Max PA-C [address] [place] [address] [facility] [place] [address] [place] [address] Referral ID Status Reason Start Date Expiration Date Visits Requested Visits Authorized [id number] Pending Review Auto-Generat ed Referral 2 03/10/2023 1 1 * Consult, Test, Treat (Routine) - Pending Review Specialty Diagnoses / Procedures Referred By Jacqueline t Referred To Contact Dermatology Diagnoses Multiple atypical skin moles Procedures CONSULT TO DERMATOLOGY OFFICE/OUTPATIENT [facility] 60-74 MINUTES Jaison Max PA-C [address] [place] [address] Referral ID Status Reason Start Date Expiration Date Visits Requested Visits Authorized [id number] Pending Review PCP Requested Referral 2 03/09/2023 1 1 * Consult, Test, Treat (Routine) - Authorized Specialty Diagnoses / Procedures Referred By Jacqueline cummings Referred To Contact Ophthalmology Diagnoses Presbyopia of both eyes Loss of lateral visual alexandra Procedures CONSULT TO OPHTHALMOLOGY OFFICE/OUTPATIENT [facility] 60-74 MINUTES Jaison Max PA-C [address] [place] [address] Referral ID Status Reason Start Date Expiration Date Visits Requested Visits Authorized [id number] Authorized PCP Requested Referral 2 03/09/2023 1 1 [facility] for referral (narrative)* Diagnostic Procedure Only (Routine) - Authorized Specialty Diagnoses / Procedures Referred By Jacqueline t Referred To Contact US IMAGING Diagnoses Screening for AAA (abdominal aortic aneurysm) Procedures US SCREENING FOR AAA (2017) US ABDOMINAL AORTA REAL TIME SCREEN STUDY AAA Aric Zapien MD [address] [place] [address] Us Imaging Referral ID Status Reason Start Date Expiration Date Visits Requested Visits Authorized [id number] Authorized Auto-Generat ed Referral 04/01/2022 05/01/2023 1 1 * Consult, Test, Treat (Routine) - Pending Review Specialty Diagnoses / Procedures Referred By Contac t Referred To Contact Cardiology Diagnoses 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 (HCC) Enlarged thoracic aorta (HCC) Procedures CONSULT TO CARDIOLOGY OFFICE/OUTPATIENT [facility] 60-74 MINUTES Aric Zapien MD [address] [place] [address] Referral ID Status Reason Start Date Expiration Date Visits Requested Visits Authorized [id number] Pending Review PCP Requested Referral 04/01/2022 04/01/2023 1 1 [facility] for referral (narrative)* Outpatient Procedure (Routine) - Authorized Specialty Diagnoses / Procedures Referred By Contac t Referred To Contact [facility] Diagnoses Peripheral vascular disease (HCC) Procedures P[facility] NON-INVASIVE PHYSIOLOGIC STUDY EXTREMITY [address] [place] [address] [place] [address] [facility] [place] [address] [place] [address] Referral ID Status Reason Start Date Expiration Date Visits Requested Visits Authorized [id number] Authorized Auto-Generat ed Referral 09/30/2022 09/30/2023 1 1 * Consult, Test, Treat (Routine) - Authorized Specialty Diagnoses / Procedures Referred By Contac t Referred To Contact Podiatry Diagnoses Type 2 diabetes mellitus without complication, without long-term current use of insulin (HCC) Pain due to onychomycosis of nail Procedures CONSULT TO PODIATRY OFFICE/OUTPATIENT [facility] 60-74 MINUTES Aric Zapien MD [address] [place] [address] Referral ID Status Reason Start Date Expiration Date Visits Requested Visits Authorized [id number] Authorized PCP Requested Referral 09/30/2022 09/30/2023 1 1 * Diagnostic Procedure Only (Routine) - Authorized Specialty Diagnoses / Procedures Referred By Contac t Referred To Contact US IMAGING Diagnoses Screening for AAA (abdominal aortic aneurysm) Procedures US SCREENING FOR AAA (2016) US ABDOMINAL AORTA REAL TIME SCREEN STUDY AAA Aric Zapien MD [address] [place] [address] Us Imaging Referral ID Status Reason Start Date Expiration Date Visits Requested Visits Authorized [id number] Authorized Auto-Generat ed Referral 09/30/2022 10/30/2023 1 1 [facility] for referral (narrative)* Diagnostic Procedure Only (Urgent) - Closed Specialty Diagnoses / Procedures Referred By Contac t Referred To Contact XR IMAGING Diagnoses Foot pain, right Procedures XR FOOT GENERAL 3V AP/LAT/OBL RT X-RAY FOOT MINIMUM 3 VIEWS Quang Bowman MD [address] [place] [address] [place] [address] Referral ID Status Reason Start Date Expiration Date V isits Requested Visits Authorized [id number] Closed Auto-Generate d Referral 03/12/2021 04/11/2022 1 1 * Diagnostic Procedure Only (Urgent) - Closed Specialty Diagnoses / Procedures Referred By Contac t Referred To Contact XR IMAGING Diagnoses Acute right ankle pain Procedures XR ANKLE GENERAL 3V AP/LAT/OBL RT X-RAY ANKLE MINIMUM 3 VIEWS Quang Bowman MD [address] [place] [address] [place] [address] Referral ID Status Reason Start Date Expiration Date V isits Requested Visits Authorized [id number] Closed Auto-Generate d Referral 03/12/2021 05/29/2021 1 1 [facility] for referral (narrative)* Diagnostic Procedure Only (Urgent) - Closed Specialty Diagnoses / Procedures Referred By Contac t Referred To Contact XR IMAGING Diagnoses Chronic low back pain without sciatica, unspecified back pain laterality Fall, initial encounter Procedures XR LUMBAR GENERAL 3V AP/LAT/L5-S1 RADEX SPINE LUMBOSACRAL 2/3 VIEWS Florinda Stevenson APRN.CNP [address] [place] [address] [place] [address] Referral ID Status Reason Start Date Expiration Date V isits Requested Visits Authorized [id number] Closed Auto-Generate d Referral 06/22/2024 07/22/2025 1 1 [facility]No reason for referral information availableWTriHealth Work Phone: Rewrky for visit Narrative* Diagnostic Procedure Only (Urgent) - Closed Specialty Diagnoses / Procedures Referred By Contac t Referred To Contact XR IMAGING Diagnoses Acute right ankle pain Procedures XR ANKLE GENERAL 3V AP/LAT/OBL RT X-RAY ANKLE MINIMUM 3 VIEWS Quang Bowman MD [address] [place] [id number] [place] [address] Referral ID Status Reason Start Date Expiration Date V isits Requested Visits Authorized [id number] Closed Auto-Generate d Referral 03/12/2021 05/29/2021 1 1 [facility] Reason for Referral Specialty Diagnoses / Procedures Referred By Contac t Referred To Contact Ophthalmology Diagnoses Type 2 diabetes mellitus without complication, without long-term current use of insulin (HCC) Procedures CONSULT TO OPHTHALMOLOGY OFFICE/OUTPATIENT [facility] 60-74 MINUTES Aric Zapien MD [address] [place] [address] Referral ID Status Reason Start Date Expiration Date Visits Requested Visits Authorized [id number] Authorized PCP Requested Referral 09/24/2021 09/24/2022 1 1 Specialty Diagnoses / Procedures Referred By Contac t Referred To Contact Neurology Diagnoses Seizures (HCC) Procedures CONSULT TO NEUROLOGY OFFICE/OUTPATIENT [facility] 60-74 MINUTES Aric Zapien MD [address] [place] [address] Referral ID Status Reason Start Date Expiration Date Visits Requested Visits Authorized [id number] Pending Review PCP Requested Referral 09/24/2021 09/24/2022 1 1 Specialty Diagnoses / Procedures Referred By Contac t Referred To Contact Cardiology Diagnoses 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 (HCC) Primary pulmonary HTN (HCC) Enlarged thoracic aorta (HCC) Mitral valve insufficiency, unspecified etiology Non-rheumatic tricuspid valve insufficiency Procedures CONSULT TO CARDIOLOGY Aric Zapien MD [address] [place] [address] Referral ID Status Reason Start Date Expiration Date Visits Requested Visits Authorized [id number] Ref Not Required PCP Requested Referral 09/24/2021 09/24/2022 1 1 Specialty Diagnoses / Procedures Referred By Contac t Referred To Contact MR IMAGING Diagnoses Other symptoms and signs involving the nervous system Procedures MRA CAROTID WO IVCON MRA, NECK; W/O CONTRAST Aric Huston Jr., MD [address] [facility] [address] [place] [address] Mr Imaging Referral ID Status Reason Start Date Expiration Date Visits Requested Visits Authorized [id number] Pending Review Auto-Generat ed Referral 05/12/2023 1 1 Specialty Diagnoses / Procedures Referred By Contac t Referred To Contact MR IMAGING Diagnoses Other symptoms and signs involving the nervous system Procedures MRA BRAIN WO IVCON MRA, HEAD W/O CONTRAST Aric Huston Jr., MD [address] [facility] [place] [place] [address] Mr Imaging Referral ID Status Reason Start Date Expiration Date Visits Requested Visits Authorized [id number] Pending Review Auto-Generat ed Referral 05/12/2023 1 1 Specialty Diagnoses / Procedures Referred By Contac t Referred To Contact MR IMAGING Diagnoses Other symptoms and signs involving the nervous system Procedures MRA CAROTID WO IVCON MRA, NECK; W/O CONTRAST Aric Huston Jr., MD [address] [facility] [address] [place] [address] [place] [address] Referral ID Status Reason Start Date Expiration Date V isits Requested Visits Authorized [id number] Closed Auto-Generate d Referral 04/12/2022 05/12/2023 1 1 Specialty Diagnoses / Procedures Referred By Contac t Referred To Contact MR IMAGING Diagnoses Other symptoms and signs involving the nervous system Procedures MRA BRAIN WO IVCON MRA, HEAD W/O CONTRAST Aric Huston Jr., MD [address] [facility] [address] [place] [address] [place] [address] Referral ID Status Reason Start Date Expiration Date V isits Requested Visits Authorized [id number] Closed Auto-Generate d Referral 04/12/2022 05/12/2023 1 1 Specialty Diagnoses / Procedures Referred By Contac t Referred To Contact MR IMAGING Diagnoses 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 status epilepticus, unspecified epilepsy type ([facility]) Procedures MRI BRAIN WO IVCON MRI BRAIN BRAIN STEM W/O CONTRAST MATERIAL Aric Huston Jr., MD [address] [facility] [address] [place] [address] [place] [address] Referral ID Status Reason Start Date Expiration Date V isits Requested Visits Authorized [id number] Closed Auto-Generate d Referral 03/08/2022 04/07/2023 1 1 Specialty Diagnoses / Procedures Referred By Contac t Referred To Contact Podiatry Diagnoses Incurvated nail Procedures CONSULT TO PODIATRY OFFICE/OUTPATIENT [facility] 60 MINUTES Jaison Max PA-C [address] [place] [address] Referral ID Status Reason Start Date Expiration Date Visits Requested Visits Authorized [id number] Authorized PCP Requested Referral 11/22/2023 11/21/2024 1 1 Specialty Diagnoses / Procedures Referred By Contac t Referred To Contact US IMAGING Diagnoses Screening for abdominal aortic aneurysm Procedures US SCREENING FOR AAA (2017) US ABDOMINAL AORTA REAL TIME SCREEN STUDY [facility] Ja[facility] Max PA-C [address] [place] [address] [place] [address] Referral ID Status Reason Start Date Expiration Date Visits Requested Visits Authorized [id number] Pending Review Auto-Generat ed Referral 11/22/2023 12/21/2024 1 1 Specialty Diagnoses / Procedures Referred By Contac t Referred To Contact Diagnoses Compression fracture of L1 vertebra, initial encounter ([facility]) Procedures [facility] Florinda Stevenson, WINDER HAND.OUTSIDE PROPERTY AGENT [address] [place] [address] Referral ID Status Reason Start Date Expiration Date Visits Requested Visits Authorized [id number] New Request PCP Requested Referral 06/22/2024 09/20/2024 1 1 Chief Complaint and Reason for Visit Chief Complaint migraine Chief Complaint 6 M FU Reason for Visit Atrial fibrillation with rapid ventricular response Essential hypertension Valvular heart disease Chief Complaint Admit Date AFIB RVR July 09, 2024 10:34am pain July 09, 2024 10:39am AFIB RVR July 10, 2024 10:03am AFIB RVR July 11, 2024 7:47am LAB WORK July 12, 2024 5:00am LAB WORK July 16, 2024 4:00am LAB WORK July 23, 2024 5:00am [facility] LAB WORK August 27, 2024 4 :00am Reason for Visit Admit Date Atrial fibrillation with rapid ventricul ar response July 09, 2024 10:34am Bilateral ankle pain July 09, 2024 10:34am Bilateral leg and foot pain June 10:34am Chief Complaint Admit Date AFIB RVR July 09, 2024 10:34am pain July 09, 2024 10:39am AFIB RVR July 10, 2024 10:03am AFIB RVR July 11, 2024 7:47am LAB WORK July 12, 2024 5:00am LAB WORK July 16, 2024 4:00am LAB WORK July 23, 2024 5:00am [facility] LAB WORK August 27, 2024 4 :00am [id number] September 26, 2024 5:1 6am Family History No Family History Records Found Relationship Condition Age at Onset Recorded Date/T belén Unknown Family History?Heart Disease Unknown September 15, 2014 7:26pm Family History?Heart Disease Unknown April 27, 2015 8:44pm Relationship Condition Age at Onset Recorded Date/T belén mother Alzheimer's disease Unknown Malignant neoplasm of breast Unknown Atrial fibrillation Unknown father Hypertension Unknown Hyperlipidemia Unknown Acute poliomyelitis Unknown brother Cardiac disease Unknown sister Malignant neoplasm of breast Unknown son Seizure Unknown Autistic disorder Unknown Advance Directives No Advanced Directives Records Found Advance Directive Response Recorded Date/ Time Advance Directives No June 3:48pm Living Will No March 06 2 11:14am Power of Services Manager No March 06, 2 022 11:14am Advance Directive Response Recorded Date/ Time Advance Directives No June 2:48pm Living Will No March 06 2 10:14am Power of Services Manager No March 06, 2 022 10:14am Advance Directive Response Recorded Date/ Time Living Will No July 09 2 025 12:44pm Do you have a Healthcare Power of Services Manager? No July 09, 2024 12:44pm Advance Directives No June 3:48pm Medications Administered Section Inactive Administered Medications - up to 3 most recent administrations Medication Order MAR Action Action Date Dose Rate Site PHENYLephrine 2.5 % 1 Drop (AK-DILATE, KHOI-SYNEPHRINE) 1 Drop, BOTH EYES, DIRECTED, Starting on Tue04/12/22 at 1400, Until Tue04/13/22 at 0159, Administer for dilation PROTECT FROM LIGHT Given 04/12/2022 2:00 PM EST 1 Drop proparacaine 0.5 % 1 Drop (ALCAINE) 1 Drop, BOTH EYES, DIRECTED, Starting on Tue04/12/22 at 1400, Until Tue04/13/22 at 0159, Administer for pneumo tonometry, tonopen tonometry, or pachymetry. In the event of a proparacaine shortage, administer tetracaine 0.5% ophthalmic drops 1 drop in the left eye as directed for pneumo tonometry, tonopen tonometry, or pachymetry Given 04/12/2022 2:00 PM EST 1 Drop tropicamide 1 % 1 Drop (MYDRIACYL) 1 Drop, BOTH EYES, DIRECTED, Starting on Tue04/12/22 at 1400, Until Tue04/13/22 at 0159, Administer for dilation Given 04/12/2022 2:00 PM EST 1 Drop Health Concerns Infection Onset Date Last Indicated Resolved Time COVID-19 Rule-Out 12/07/2022 12/07/2022 Summary Purpose Additional Source Comments Source Comments (unrecognize d section and content) In the event this informatio n is protected by the [facility] Confidentiality of Alcohol and Drug Abuse Patient Records regulations: The Federal rules restrict any use of the information to criminally investigate or prosecute any alcohol or drug abuse patient.[facility] HospitalIn the event this information is protected by the Federal Confidentiality of Alcohol and Drug Abuse Patient Records regulations: The Federal rules restrict any use of the information to criminally investigate or prosecute any alcohol or drug abuse patient.[facility] HospitalIn the event this information is protected by the Federal Confidentiality of Alcohol and Drug Abuse Patient Records regulations: The Federal rules restrict any use of the information to criminally investigate or prosecute any alcohol or drug abuse patient.[facility] HospitalIn the event this information is protected by the Federal Confidentiality of Alcohol and Drug Abuse Patient Records regulations: The Federal rules restrict any use of the information to criminally investigate or prosecute any alcohol or drug abuse patient.[facility] HospitalIn the event this information is protected by the Federal Confidentiality of Alcohol and Drug Abuse Patient Records regulations: The Federal rules restrict any use of the information to criminally investigate or prosecute any alcohol or drug abuse patient.[facility] HospitalIn the event this information is protected by the Federal Confidentiality of Alcohol and Drug Abuse Patient Records regulations: The Federal rules restrict any use of the information to criminally investigate or prosecute any alcohol or drug abuse patient.[facility] HospitalIn the event this information is protected by the Federal Confidentiality of Alcohol and Drug Abuse Patient Records regulations: The Federal rules restrict any use of the information to criminally investigate or prosecute any alcohol or drug abuse patient.[facility] HospitalIn the event this information is protected by the Federal Confidentiality of Alcohol and Drug Abuse Patient Records regulations: The Federal rules restrict any use of the information to criminally investigate or prosecute any alcohol or drug abuse patient.[facility] HospitalIn the event this information is protected by the Federal Confidentiality of Alcohol and Drug Abuse Patient Records regulations: The Federal rules restrict any use of the information to criminally investigate or prosecute any alcohol or drug abuse patient.[facility] HospitalIn the event this information is protected by the Federal Confidentiality of Alcohol and Drug Abuse Patient Records regulations: The Federal rules restrict any use of the information to criminally investigate or prosecute any alcohol or drug abuse patient.[facility] HospitalIn the event this information is protected by the Federal Confidentiality of Alcohol and Drug Abuse Patient Records regulations: The Federal rules restrict any use of the information to criminally investigate or prosecute any alcohol or drug abuse patient.[facility] HospitalIn the event this information is protected by the Federal Confidentiality of Alcohol and Drug Abuse Patient Records regulations: The Federal rules restrict any use of the information to criminally investigate or prosecute any alcohol or drug abuse patient.[facility] HospitalIn the event this information is protected by the Federal Confidentiality of Alcohol and Drug Abuse Patient Records regulations: The Federal rules restrict any use of the information to criminally investigate or prosecute any alcohol or drug abuse patient.[facility] HospitalIn the event this information is protected by the Federal Confidentiality of Alcohol and Drug Abuse Patient Records regulations: The Federal rules restrict any use of the information to criminally investigate or prosecute any alcohol or drug abuse patient.[facility] HospitalIn the event this information is protected by the Federal Confidentiality of Alcohol and Drug Abuse Patient Records regulations: The Federal rules restrict any use of the information to criminally investigate or prosecute any alcohol or drug abuse patient.[facility] HospitalIn the event this information is protected by the Federal Confidentiality of Alcohol and Drug Abuse Patient Records regulations: The Federal rules restrict any use of the information to criminally investigate or prosecute any alcohol or drug abuse patient.[facility] HospitalIn the event this information is protected by the Federal Confidentiality of Alcohol and Drug Abuse Patient Records regulations: The Federal rules restrict any use of the information to criminally investigate or prosecute any alcohol or drug abuse patient.[facility] HospitalIn the event this information is protected by the Federal Confidentiality of Alcohol and Drug Abuse Patient Records regulations: The Federal rules restrict any use of the information to criminally investigate or prosecute any alcohol or drug abuse patient.[facility] HospitalIn the event this information is protected by the Federal Confidentiality of Alcohol and Drug Abuse Patient Records regulations: The Federal rules restrict any use of the information to criminally investigate or prosecute any alcohol or drug abuse patient.[facility] HospitalIn the event this information is protected by the Federal Confidentiality of Alcohol and Drug Abuse Patient Records regulations: The Federal rules restrict any use of the information to criminally investigate or prosecute any alcohol or drug abuse patient.[facility] HospitalIn the event this information is protected by the Federal Confidentiality of Alcohol and Drug Abuse Patient Records regulations: The Federal rules restrict any use of the information to criminally investigate or prosecute any alcohol or drug abuse patient.[facility] HospitalIn the event this information is protected by the Federal Confidentiality of Alcohol and Drug Abuse Patient Records regulations: The Federal rules restrict any use of the information to criminally investigate or prosecute any alcohol or drug abuse patient.[facility] HospitalIn the event this information is protected by the Federal Confidentiality of Alcohol and Drug Abuse Patient Records regulations: The Federal rules restrict any use of the information to criminally investigate or prosecute any alcohol or drug abuse patient.[facility] HospitalIn the event this information is protected by the Federal Confidentiality of Alcohol and Drug Abuse Patient Records regulations: The Federal rules restrict any use of the information to criminally investigate or prosecute any alcohol or drug abuse patient.[facility] HospitalIn the event this information is protected by the Federal Confidentiality of Alcohol and Drug Abuse Patient Records regulations: The Federal rules restrict any use of the information to criminally investigate or prosecute any alcohol or drug abuse patient.[facility] HospitalIn the event this information is protected by the Federal Confidentiality of Alcohol and Drug Abuse Patient Records regulations: The Federal rules restrict any use of the information to criminally investigate or prosecute any alcohol or drug abuse patient.[facility] HospitalIn the event this information is protected by the Federal Confidentiality of Alcohol and Drug Abuse Patient Records regulations: The Federal rules restrict any use of the information to criminally investigate or prosecute any alcohol or drug abuse patient.[facility] HospitalIn the event this information is protected by the Federal Confidentiality of Alcohol and Drug Abuse Patient Records regulations: The Federal rules restrict any use of the information to criminally investigate or prosecute any alcohol or drug abuse patient.[facility] HospitalIn the event this information is protected by the Federal Confidentiality of Alcohol and Drug Abuse Patient Records regulations: The Federal rules restrict any use of the information to criminally investigate or prosecute any alcohol or drug abuse patient.[facility] HospitalIn the event this information is protected by the Federal Confidentiality of Alcohol and Drug Abuse Patient Records regulations: The Federal rules restrict any use of the information to criminally investigate or prosecute any alcohol or drug abuse patient.[facility] HospitalIn the event this information is protected by the Federal Confidentiality of Alcohol and Drug Abuse Patient Records regulations: The Federal rules restrict any use of the information to criminally investigate or prosecute any alcohol or drug abuse patient.[facility] ClinicIn the event this information is protected by the Federal Confidentiality of Alcohol and Drug Abuse Patient Records regulations: The Federal rules restrict any use of the information to criminally investigate or prosecute any alcohol or drug abuse patient.[facility] HospitalIn the event this information is protected by the Federal Confidentiality of Alcohol and Drug Abuse Patient Records regulations: The Federal rules restrict any use of the information to criminally investigate or prosecute any alcohol or drug abuse patient.[facility] HospitalIn the event this information is protected by the Federal Confidentiality of Alcohol and Drug Abuse Patient Records regulations: The Federal rules restrict any use of the information to criminally investigate or prosecute any alcohol or drug abuse patient.[facility] HospitalIn the event this information is protected by the Federal Confidentiality of Alcohol and Drug Abuse Patient Records regulations: The Federal rules restrict any use of the information to criminally investigate or prosecute any alcohol or drug abuse patient.[facility] HospitalIn the event this information is protected by the Federal Confidentiality of Alcohol and Drug Abuse Patient Records regulations: The Federal rules restrict any use of the information to criminally investigate or prosecute any alcohol or drug abuse patient.[facility] Care Teams (unrecognized sec tion and content) Coroner Technician Relationship Specialty Start Date End Date Aric Zapien MD [address] [place] [address] PCP - General Family Practice 07/23/15 Coroner Technician Relationship Specialty Start Date End Date Aric Zapien MD [address] [place] [address] PCP - General Family Practice 07/23/15 Coroner Technician Relationship Specialty Start Date End Date Aric Zapien MD [address] [place] [address] PCP - General Family Medicine 07/23/15 Coroner Technician Relationship Specialty Start Date End Date Aric Zapien MD [facility] [place] [address] PCP - General Family Medicine 07/23/15 Coroner Technician Relationship Specialty Start Date End Date Aric Zapien MD [address] [place] [address] PCP - General Family Medicine 07/23/15 Coroner Technician Relationship Specialty Start Date End Date Aric Zapien MD [facility] [place] [address] PCP - General Family Medicine 07/23/15 Coroner Technician Relationship Specialty Start Date End Date Aric Zapien MD [address] [facility] [address] PCP - General Family Medicine 07/23/15 Coroner Technician Relationship Specialty Start Date End Date Aric Zapien MD [address] [facility] [address] PCP - General Family Medicine 07/23/15 Coroner Technician Relationship Specialty Start Date End Date Aric Zapien MD [address] [facility] [address] PCP - General Family Medicine 07/23/15 Coroner Technician Relationship Specialty Start Date End Date Aric Zapien MD [address] [facility] [address] PCP - General Family Medicine 07/23/15 Coroner Technician Relationship Specialty Start Date End Date Aric Zapien MD [address] [facility] [address] PCP - General Family Medicine 07/23/15 Coroner Technician Relationship Specialty Start Date End Date Aric Zapien MD [address] [facility] [address] PCP - General Family Medicine 07/23/15 Coroner Technician Relationship Specialty Start Date End Date Aric Zapien MD [address] [facility] [address] PCP - General Family Medicine 07/23/15 Coroner Technician Relationship Specialty Start Date End Date Aric Zapien MD [address] [facility] [address] PCP - General Family Medicine 07/23/15 Coroner Technician Relationship Specialty Start Date End Date Aric Zapien MD [address] [facility] [address] PCP - General Family Medicine 07/23/15 Coroner Technician Relationship Specialty Start Date End Date Aric Zapien MD [address] [place], [place] [address] PCP - General Family Medicine 07/23/15 Coroner Technician Relationship Specialty Start Date End Date Aric Zapien MD [address] [place], [place] [address] PCP - General Family Medicine 07/23/15 Coroner Technician Relationship Specialty Start Date End Date Aric Zapien MD [address] [place], [place] [address] PCP - General Family Medicine 07/23/15 Team Status: Active Member Role Status Dates Dr. Aric Zapien MD Family Provider Active Dr. Aric Zapien MD Primary Care Provider Active Team Status: Inactive Member Role Status Dates Dr. Aric Zapien MD Primary Care Provider, Referring Provider Active Rakel Hodgson MEDICAL AIDES TEACHER, MEDICAL AIDES TEACHER-C Attending Provider Active Team Status: Inactive Member Role Status Dates Dr. Aric Zapien MD Primary Care Provider Active Rakel Hodgson MEDICAL AIDES TEACHER, MEDICAL AIDES TEACHER-C Attending Provider, Referring P roberto Active Coroner Technician Relationship Specialty Start Date End Date Aric Zapien MD [address] [place] [address] PCP - General Family Medicine 07/23/15 Coroner Technician Relationship Specialty Start Date End Date rAic Zapien MD [address] [place] [address] PCP - General Family Medicine 07/23/15 Coroner Technician Relationship Specialty Start Date End Date Aric Zapien MD [address] [place] [address] PCP - General Family Medicine 07/23/15 Coroner Technician Relationship Specialty Start Date End Date Aric Zapien MD [address] [facility] [address] PCP - General Family Medicine 07/23/15 Coroner Technician Relationship Specialty Start Date End Date Aric Zapien MD [address] [facility] [address] PCP - General Family Medicine 07/23/15 Coroner Technician Relationship Specialty Start Date End Date Aric Zapien MD [address] [facility] [address] PCP - General Family Medicine 07/23/15 Coroner Technician Relationship Specialty Start Date End Date Aric Zapien MD [address] [facility] [address] PCP - General Family Medicine 07/23/15 Coroner Technician Relationship Specialty Start Date End Date Aric Zapien MD [address] [facility] [address] PCP - General Family Medicine 07/23/15 Meenakshi Galaviz APRN.OUTSIDE PROPERTY AGENT [address] [place] [address] Flight/Transport Nurse Family Medicine 05/07/24 Coroner Technician Relationship Specialty Start Date End Date Aric Zapien MD [address] [facility] [address] PCP - General Family Medicine 07/23/15 Meenakshi Galaviz APRN.OUTSIDE PROPERTY AGENT [address] [place] [address] Flight/Transport Nurse Family Medicine 05/07/24 Florinda Stevenson APRN.OUTSIDE PROPERTY AGENT [address] [place] [address] Flight/Transport Nurse Family Medicine 05/07/24 Coroner Technician Relationship Specialty Start Date End Date Aric Zapien MD [address] [facility] [place] [address] PCP - General Family Medicine 07/23/15 Meenakshi Galaviz WINDER HAND.OUTSIDE PROPERTY AGENT [address] [place] [address] Flight/Transport Nurse Family Medicine 05/07/24 Florinda Stevenson WINDER HAND.OUTSIDE PROPERTY AGENT [address] [place] [address] [facility] Coroner Technician Relationship Specialty Start Date End Date Aric Zapien MD [address] [place] [address] PCP - General Family Medicine 07/23/15 Meenakshi Galaviz, WINDER HAND.OUTSIDE PROPERTY AGENT [address] [place] [address] Flight/Transport Nurse Family Medicine 05/07/24 Florinda Stevenson WINDER HAND.OUTSIDE PROPERTY AGENT [address] [place] [address] Flight/Transport Nurse Family Medicine 05/07/24 Coroner Technician Relationship Specialty Start Date End Date Aric Zapien MD [address] [place] [address] PCP - General Family Medicine 07/23/15 Meenakshi Galaviz, WINDER HAND.OUTSIDE PROPERTY AGENT [address] [place] [address] Flight/Transport Nurse [facility] 05/07/24 Florinda Stevenson APRN.OUTSIDE PROPERTY AGENT [address] [place], [place] [address] [phone] 05/07/24 Coroner Technician Relationship Specialty Start Date End Date Aric Zapien MD [address] [place], [place] [address] PCP - General Family Medicine 07/23/15 Meenakshi Galaivz WINDER HAND.OUTSIDE PROPERTY AGENT [address] [place] [address] [facility] 05/07/24 Florinda Stevenson WINDER HAND.OUTSIDE PROPERTY AGENT [address] [place] [address] [facility] 05/07/24 Coroner Technician Relationship Specialty Start Date End Date Aric Zapien MD [address] [place], [place] [address] PCP - General Family Medicine 07/23/15 Meenakshi Galaviz, WINDER HAND.OUTSIDE PROPERTY AGENT [address] [place] [address] [facility] 05/07/24 Florinda Stevenson WINDER HAND.OUTSIDE PROPERTY AGENT [address] [place] [address] [facility] 05/07/24 Team Status: Active Member Role Status Dates Dr. Aric Zapien MD Primary Care Provider Active Team Status: Active Member Role Status Dates Dr. Aric Zapien MD Primary Care Provider Active Start: July 09, 2024 Dr. Yann Miller MD Attending Provider Active S tart: July 09, 2024 Dr. Priscilla Reynaga MD Referring Provider Active Start: July 09, 2024 Team Status: Inactive Member Role Status Dates Dr. Aric Zapien MD Primary Care Provider Active Start: July 09, 2024 End: July 11, 2024 Dr. Priscilla Reynaga MD Emergency Provider Active Start: July 09, 2024 End: July 11, 2024 Dr. Yann Ascencio DO Admit Provider Active Star t: July 09, 2024 End: July 11, 2024 Dr. Yann Ascencio DO Attending Provider Active Start: July 09, 2024 End: July 11, 2024 Team Status: Active Member Role Status Dates Dr. Aric Zapien MD Primary Care Provider Active Start: July 09, 2024 Dr. Priscilla Reynaga MD Emergency Provider Active Start: July 09, 2024 Dr. Yann Ascencio DO Attending Provider Active Start: July 09, 2024 Team Status: Active Member Role Status Dates Dr. Aric Zapien MD Primary Care Provider Active Start: July 10, 2024 Dr. Estuardo Irby MD Attending Provider Activ e Start: July 10, 2024 Team Status: Active Member Role Status Dates Dr. Aric Zapien MD Primary Care Provider Active Start: July 10, 2024 Dr. Priscilla Reynaga MD Emergency Provider Active Start: July 10, 2024 Dr. Yann Ascencio DO Admit Provider Active Star t: July 10, 2024 Dr. Yann Ascencio DO Attending Provider Active Start: July 10, 2024 Dr. Yann Ascencio DO Other Provider Active Star t: July 10, 2024 Team Status: Active Member Role Status Dates Dr. Aric Zapien MD Primary Care Provider Active Start: July 11, 2024 Dr. Priscilla Reynaga MD Emergency Provider Active Start: July 11, 2024 Dr. Yann Ascencio DO Admit Provider Active Star t: July 11, 2024 Dr. Yann Ascencio DO Attending Provider Active Start: July 11, 2024 Dr. Yann Ascencio DO Other Provider Active Star t: July 11, 2024 Team Status: Active Member Role Status Dates Dr. Aric Zapien MD Primary Care Provider Active Start: July 12, 2024 Dr. Jigna ALMENDAREZ MD Attending Provider Active Start: July 12, 2024 Team Status: Active Member Role Status Dates Dr. Aric Zapien MD Primary Care Provider Active Start: July 16, 2024 Dr. Jigna ALMENDAREZ MD Attending Provider Active Start: July 16, 2024 Dr. Jigna ALMENDAREZ MD Referring Provider Active Start: July 16, 2024 Team Status: Active Member Role Status Dates Dr. Aric Zapien MD Primary Care Provider Active Start: July 23, 2024 Dr. Jigna ALMENDAREZ MD Attending Provider Active Start: July 23, 2024 Team Status: Inactive Member Role Status Dates Dr. Aric Zapien MD Primary Care Provider Active Start: August 27, 2024 End: August 27, 2024 Dr. Jigna ALMENDAREZ MD Attending Provider Active Start: August 27, 2024 End: August 27, 2024 Dr. Jigna ALMENDAREZ MD Referring Provider Active Start: August 27, 2024 End: August 27, 2024 Team Status: Inactive Member Role Status Dates Dr. Aric Zapien MD Primary Care Provider Active Start: September 26, 2024 End: September 26, 2024 Dr. Jigna ALMENDAREZ MD Attending Provider Active Start: September 26, 2024 End: September 26, 2024 Coroner Technician Relationship Specialty Start Date End Date Aric Zapien MD [address] [place], [place] [id number] PCP - General Family Medicine 07/23/15 Meenakshi Galaviz APRN.OUTSIDE PROPERTY AGENT [address] [place], [place] [id number] Flight/Transport Nurse Family Medicine 05/07/24 Florinda Stevenson APRN.OUTSIDE PROPERTY AGENT [address] [place], [place] [id number] Flight/Transport Nurse Family Medicine 05/07/24 Reason for Visit (unrecogniz ed section and content) Reason Comments Diabetes Specialty Diagnoses / Procedures Referred By Contalphonse t Referred To Contact Family Practice / FAMILY MEDICINE Diagnoses 6 month follow up Procedures 4C EST Aric Zapien MD [address] [place] [address] Aric Zapien MD [address] [place] [address] Referral ID Status Reason Start Date Expiration Date V isits Requested Visits Authorized [id number] Closed Financial Clearance Required - OON Payor Patient Cleared INN/SMCP Payor Auth Obtained 09/24/2021 05/29/2022 1 1 Reason Onset Date Comments Refill Request 03/04/2022 Reason Comments Follow Up Specialty Diagnoses / Procedures Referred By Contalphonse t Referred To Contact Neurology / FAMILY MEDICINE Diagnoses Seizures (HCC) Procedures CONSULT TO NEUROLOGY OFFICE/OUTPATIENT [facility] 60-74 MINUTES Aric Zapien MD [address] [place] [address] [facility] [address] [place] [address] Referral ID Status Reason Start Date Expiration Date V isits Requested Visits Authorized [id number] Closed PCP Requested Referral 12/25/2021 05/29/2022 1 1 Reason Comments Medicare Wellness Exam Reason Comments Orders Reason Onset Date Comments ACM COLEMAN RN 02/23/2022 SPC/SUPD rev. 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 Procedures CONSULT TO OPHTHALMOLOGY OFFICE/OUTPATIENT [facility] 60-74 MINUTES Jaison Max PA-C [address] [place] [address] Referral ID Status Reason Start Date Expiration Date V isits Requested Visits Authorized [id number] Closed PCP Requested Referral 03/09/2022 03/09/2023 1 1 Reason Comments Orders Reason Comments Results Reason Onset Date Comments ACM COLEMAN RN 06/11/2022 Medication Ad herence review per request of payer Reason Comments Refill Request Reason Comments 6 Month Exam Reason Comments Sore Throat ST and cough x 2 day s Specialty Diagnoses / Procedures Referred By Contac t Referred To Contact MR IMAGING Diagnoses 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 status epilepticus, unspecified epilepsy type (HCC) Procedures MRI BRAIN WO IVCON MRI BRAIN BRAIN STEM W/O CONTRAST MATERIAL Aric Huston Jr., MD [address] [place] [id number] [place] [address] Referral ID Status Reason Start Date Expiration Date V isits Requested Visits Authorized [id number] Closed Auto-Generate d Referral 03/08/2022 04/07/2023 1 1 Reason Onset Date Comments Refill Request 11/08/2023 Reason Comments Follow Up 6 month Reason Onset Date Comments Population Health Navigation Outreach 12/15/2023 ANTHEM-AWV Reason Onset Date Comments Population Health Navigation Outreach 03/07/2024 [place] [employer] [facility] PCSA Reason Onset Date Comments [facility] Navigation Outreach 05/28/2024 MCAIP OUTREACH Reason Onset Date Comments Refill Request 06/13/2024 Reason Comments Fall Slipped on ice Back Pain Reason Comments Patient Update Reason Comments Patient Question Reason Comments Patient Update Reason Comments Letter No show #2 Goals (unrecognized section and content) Goals may be documented in a n alternate sectionGoals may be documented in an alternate section (unrecognized sect ion and content) No Status Records FoundNo Status Records FoundNo Status Records Found INFORMATION SOURCE (unrecogn ized section and content) DATE CREATED AUTHOR 06/27/2024 [facility] DATE CREATED AUTHOR AUTHOR'S ORGANIZ ATION 10/27/2024 [facility] DATE CREATED AUTHOR AUTHOR'S ORGANIZ ATION 11/15/2024 [facility] FOR RECORDS PERTAINING TO PATIENTS WHO ARE OR HAVE BEEN ENROLLED IN A CHEMICAL DEPENDENCY/SUBSTANCEABUSE PROGRAM, SOME INFORMATION MAY BE OMITTED. This clinical summary was aggregated from multiple sources. Caution should be exercised in using it in the provision of clinical care. This summary normalizes information from multiple sources, and as a consequence, information in this document may materially change the coding, format and clinical context of patient data. In addition, data may be omitted in some cases. CLINICAL DECISIONS SHOULD BE BASED ON THE PRIMARY CLINICAL RECORDS. [employer] provides no warranty or guarantee of the accuracy or completeness of information in this document.
== END ==
LOC: OLS.SWAL 05:00
PROVIDERS: PCP Family Medicine; Visit Provider Internal Medicine
DX: Z79.899 Other long term (current) drug therapy (principal)
CPT/HCPCS: 36415; 80185

== ENCOUNTER → 2025-01-02 05:00 | Outpatient (REF) | payer MEDICARE, MEDICAID, SELFPAY ==
--- OUTSIDE RECORDS SUMMARY | 2025-01-02 04:11 | XMS RPT_ITS | CCD ---
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 Aric Zapien Primary Care Provider Dr. Aric Zapien Referring Provider Gokul SENIOR DEVELOPER, AYLIN Ellington Attending Provider Aric Zapien MD Primary Care Provider Haagen GERMAN INSTRUCTOR.NURSE REVIEWER, Meenakshi Unavailable Suppan GERMAN INSTRUCTOR.NURSE REVIEWER, Florinda A Unavailable Suppan GERMAN INSTRUCTOR.NURSE REVIEWER, Florinda A Unavailable Dr. Aric Zapien MD Primary Care Provider Dr. Yann Miller MD Attending Provider Dr. Priscilla Reynaga MD Referring Provider Dr. Priscilla Reynaga MD Emergency Provider Dr. Yann Ascencio DO Admit Provider Dr. Yann Ascencio DO Attending Provider Dr. Estuardo Irby MD Attending Provider Dr. Yann Ascencio DO Other Provider Karon NORIEGA, Dr. Benito Attending Provider UnavailDr. Jigna Osman MD Referring Provider UnavailARIC Curtis Primary Care Unavailable FLORINDA STEVENSON Referring Unavailable ARIC ZAPIEN Primary Care Unavailable FLORINDA STEVENSON Referring Unavailable ARIC ZAPIEN Primary Care Unavailable FLORINDA STEVENSON Attending Unavailable RENUKA MAX Attending Unavailable [facility] Primary [facility] Unavailable [facility] Primary Care Unavailable Yann Miller Attending Unavailable Priscilla Reynaga Referring Unavailable Gudla TANESHA, Jigna Attending Unavailable [facility] Care Unavailable Gudla OLS, Jigna Attending Unavailable [facility] Primary Care Unavailable Gudla OLS, Jigna Referring Unavailable [facility] Primary Care Unavailable Yann Ascencio Admitting Unavailable Yann Ascencio Attending Unavailable Gudla OLS, Jigna Attending Unavailable [facility] Primary Care Unavailable [facility] Primary Care Unavailable Gudla OLS, Jigna Referring Unavailable Gudla OLS, Jigna Attending Unavailable [facility] Primary Care Unavailable Gudla OLS, Jigna Attending Unavailable [facility] Care Unavailable Yann Ascencio Consulting Unavailable Yann Ascencio Attending Unavailable Yann Ascencio Admitting Unavailable [facility] Primary Care Unavailable Estuardo Irby [facility] Yann Ascencio Attending Unavailable [facility] Primary Care Unavailable Gudla TANESHA, Jigna Attending Unavailable Gudla OLS, Jigna Attending Unavailable [facility] Primary Care Unavailable Gudla OLS, Jigna Attending Unavailable [facility] Care Unavailable Allergies Allergy Classification Reported Allergen(s) Allergy Type Date of Onset Reaction(s) Facility (20 sources) Contrast media; Translations: [DYE] Drug Intolerance 03-02-20 16 Other: See Comments [facility] Work Phone: (4 sources) Triiodobenzoic Acids Allergy to substance 03-06-20 22 Anaphylaxis [facility] Comment on above: used for heart cath (1 source) Iodinated Contrast Media Drug allergy (disorder) 07-09-19 25 [facility] Repository Medications Current Medications Medication Drug Class(es) [...] Comment on above: Take 1 tablet by onleia th twice daily. Blood Pressure Test Kit-Medium [...] complication, without long-term current use of insulin ([facility]) Glucose Meter of Choice - Kit - [...] complication, without long-term current use of insulin ([facility]) Take 1 tablet by mouth once daily. [...] complication, without long-term current use of insulin ([facility]) Take 1 tablet by mouth daily with [...] on above: Take 1 tablet by onelia twice daily. Needs seen and labs to continue to prescribe. Take [address] [facility] twice daily for 14 days. Needs seen and labs to continue to prescribe. Take 1 tablet by onelia twice daily. Completed/Discontinued Medications Medication Drug Class(es) [...] on above: Take 1 capsule by mo [facility] once daily. folic acid/multivit-min/ lutein (CENTRUM SILVER [...] Comment on above: [facility]. guaifenesin/dextrometh orphan (DEXTROMETHORPHAN-GUAI FENESIN ORAL) [...] 15, 2013 1:00am September 17, 2014 9:30am Nl-Ais-Qvbnw-K1-Lycop en-Lutein (Centrum Silver Men) 300-600-300 mcg tablet (3 sources) Start: 11-15-2022 End: 11-17-2022 Hc-Mbi-Atkua-C9-Kcvekxj-Cgsw in (Centrum Silver Men) 300-600-300 mcg tablet Discontinued 1 {tbl} PO DAILY November 15, 2022 12:00am November 17, 2022 3:04pm Start: 11-15-2022 End: 11-17-2022 take 300-600 tablets by mouth once daily Ep-Unn-Japzw-T3-Rpzenpe-Epojvr (Centrum Silver Men) 300-600-300 mcg tablet Discontinued [...] on above: LMCA territory in Ap ril 2014 Other connective tissue disease (2 sources) Neurological [...] sources) Long-term current use of anticoagulant; Translations: [shelter (current) use of anticoagulants] Onset: 09-30-2022 09-30-2022 Episodic Other aftercare (1 source) shelter (current) use of anticoagulants; 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 Ataxia is observed most often when serum levels reach 25 to 30 ug/mL and somnolence and dysarthria above 40 ug/mL. At high doses, phenytoin can even cause an increase in the frequency of seizures. Performed By: #### L 501.7700 #### [facility] [address] [place], [place], [address] [id number] 11-08-2024 [facility] Mis. COMMENT Normal . [facility] Comment on above: Order Comment: [id number] Result Comment: Test Ordered: [id number] Diltiazem(Cardizem,Dilacor) S Diltiazem <20 [L ] ng/ml Reference Range: 50 - 200 Note: Analysis performed on a micro-specimen. This test was developed and its performance characteristics determined by [facility]. It has not been cleared or approved by the Food and Drug Administration. Performed at: [facility] [address] [id number] Agricultural Equipment Operator: Carly Azar [facility], Phone: [phone] Performed at: [facility] [address] [id number] Agricultural Equipment Operator: Enrico Berg PhD, Phone: [phone] Performed By: #### L 500.4050, L503.6005, L300.8000, L100.0100, L501.8725 #### [facility] [address] [place], [place], [id number] [id number] 10-30-2024 [facility] Mis. COMMENT Normal . [facility] Comment on above: Order Comment: [id number], Serum or Plasma Result Comment: Test Ordered: [id number] Diltiazem(Cardizem,Dilacor) S Diltiazem ng/ml MX Reference Range: . Test not performed Initial assay failure. Insufficient specimen volume to repeat analysis. Performed at: [facility] [address] [place] [id number] Agricultural Equipment Operator: Carly Azar [facility], Phone: [phone] Performed at: - [address] [id number] Agricultural Equipment Operator: Enrico Berg PhD, Phone: [phone] Performed By: #### L 297.7249, H342.5587, L326.0116, L100.3356, Z359.7875 #### [facility] [address] [place] [address]. [place], [address] 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, [address] Absolute Neut 3.2 X10 3/uL Normal 2.0-7.7 [facility] Comment on above: Order Comment: 133 Performed By: #### L 500.4050, L503.6005, L300.8000, L100.0100, L501.5425 #### [facility] [address] [place], [address] Basophils/100 WBC (Bld) 0.6 % Normal 0-1 [facility] Comment on above: Order Comment: 133 Performed By: #### L 500.4050, L503.6005, L300.8000, L100.0100, L501.5425 #### [facility] [address] [place], [address] Eosinophils/100 WBC (Bld) 5.3 % High 0-5 [facility] Comment on above: Order Comment: 133 Performed By: #### L 500.4050, L503.6005, L300.8000, L100.0100, L501.5425 #### [facility] [address] [place], [address] Erythrocyte distribution width (RBC) [Ratio] 15.0 % High 11.6-14.6 [facility] Comment on above: Order Comment: 133 Performed By: #### L 500.4050, L503.6005, L300.8000, L100.0100, L501.5425 #### [facility] [address] [place], [address] Hematocrit (Bld) [Volume fraction] 42.2 % Normal 40-54 [facility] Comment on above: Order Comment: 133 Performed By: #### L 500.4050, L503.6005, L300.8000, L100.0100, L501.5425 #### [facility] [address] [place], [address] Hemoglobin (Bld) [Mass/Vol] 13.7 g/dL Normal 13.0-16.5 [facility] Comment on above: Order Comment: 133 Performed By: #### L 500.4050, L503.6005, L300.8000, L100.0100, L501.5425 #### [facility] [address] [place], [address] IG% 0.500 Normal 0.0-0.9 [facility] Comment on above: Order Comment: 133 Result Comment: IG% - Immature Granulocytes (promyelocytes, myelocytes and metamyelocytes) > 1% indicates that a LEFT SHIFT is Present. Performed By: #### L 500.4050, L503.6005, L300.8000, L100.0100, L501.5425 #### [facility] [address] [place], [address] Lymphocytes/100 WBC (Bld) 33.4 % Normal 19-41 [facility] Comment on above: Order Comment: 133 Performed By: #### L 500.4050, L503.6005, L300.8000, L100.0100, L501.5425 #### [facility] [address] [place], [address] MCH (RBC) [Entitic mass] 30.7 pg Normal 27.0-32.0 [facility] Comment on above: Order Comment: 133 Performed By: #### L 500.4050, L503.6005, L300.8000, L100.0100, L501.5425 #### [facility] [address] [place], [address] MCHC (RBC) [Mass/Vol] 32.5 g/dL Normal 32-[address] [facility] Comment on above: Order Comment: 133 Performed By: #### L 500.4050, L503.6005, L300.8000, L100.0100, L501.5425 #### [facility] [address] [place], [address] MCV (RBC) [Entitic vol] 94.6 fL High 80-94 [facility] Comment on above: Order Comment: 133 Performed By: #### L 500.4050, L503.6005, L300.8000, L100.0100, L501.5425 #### [facility] [address] [place], [address] Monocytes/100 WBC (Bld) 9.4 % Normal 0-10 [facility] Comment on above: Order Comment: 133 Performed By: #### L 500.4050, L503.6005, L300.8000, L100.0100, L501.5425 #### [facility] [address] [place], [address] Neutrophils/100 WBC (Bld) 50.8 % Normal 47-70 [facility] Comment on above: Order Comment: 133 Performed By: #### L 500.4050, L503.6005, L300.8000, L100.0100, L501.5425 #### [facility] [address] [place], [address] Nucleated RBC (Bld) [#/Vol] 0 10*3/uL Normal 0-5 [facility] Comment on above: Order Comment: 133 Performed By: #### L 500.4050, L503.6005, L300.8000, L100.0100, L501.5425 #### [facility] [address] [place], [address] Platelet mean volume (Bld) [Entitic vol] 10.9 fL Normal 6.2-12.0 [facility] Comment on above: Order Comment: 133 Performed By: #### L 500.4050, L503.6005, L300.8000, L100.0100, L501.5425 #### [facility] [address] [place], [address] Platelets (Bld) [#/Vol] 236 10*3/uL Normal 150-450 [facility] Comment on above: Order Comment: 133 Performed By: #### L 500.4050, L503.6005, L300.8000, L100.0100, L501.5425 #### [facility] [address] [place], [address] RBC (Bld) [#/Vol] 4.46 10*6/uL Low 4.6-6.2 [facility] Comment on above: Order Comment: 133 Performed By: #### L 500.4050, L503.6005, L300.8000, L100.0100, L501.5425 #### [facility] [address] [place], [address] RDW SD 52.3 fl High 35.1-43.9 [facility] Comment on above: Order Comment: 133 Performed By: #### L 500.4050, L503.6005, L300.8000, L100.0100, L501.5425 #### [facility] [address] [place], [address] WBC (Bld) [#/Vol] 6.3 10*3/uL Normal 4.4-11.0 [facility] Comment on above: Order Comment: 133 Performed By: #### L 500.4050, L503.6005, L300.8000, L100.0100, L501.5425 #### [facility] [address] [place], [address] Comprehensive Metabolic Prof ilon 10-23-2024 Albumin [Mass/Vol] 4.2 g/dL Normal 3.4-4.8 [facility] Comment on above: Order Comment: 133 Performed By: #### L 500.4050, L503.6005, L300.8000, L100.0100, L501.5425 #### [facility] [address] [place], [address] Albumin/Globulin [Mass ratio] 1.7 {ratio} Normal 0.9-2.4 [facility] Comment on above: Order Comment: 133 Performed By: #### L 500.4050, L503.6005, L300.8000, L100.0100, L501.5425 #### [facility] [address] [place], [address] ALK PHOS 63 U/L Normal 40-129 [facility] Comment on above: Order Comment: 133 Performed By: #### L 500.4050, L503.6005, L300.8000, L100.0100, L501.5425 #### [facility] [address] [place], [address] ALT [Catalytic activity/Vol] 13 U/L Normal <=46 [facility] Comment on above: Order Comment: 133 Performed By: #### L 500.4050, L503.6005, L300.8000, L100.0100, L501.5425 #### [facility] [address] [place], [address] AST [Catalytic activity/Vol] 16 U/L Normal <=37 [facility] Comment on above: Order Comment: 133 Performed By: #### L 500.4050, L503.6005, L300.8000, L100.0100, L501.5425 #### [facility] [address] [place], [address] Bilirubin [Mass/Vol] 0.30 mg/dL Normal 0.00-1.30 [facility] Comment on above: Order Comment: 133 Performed By: #### L 500.4050, L503.6005, L300.8000, L100.0100, L501.5425 #### [facility] [address] [place], [address] BUN/CRE 18.7 RATIO Normal 10-20 [facility] Comment on above: Order Comment: 133 Performed By: #### L 500.4050, L503.6005, L300.8000, L100.0100, L501.5425 #### [facility] [address] [place], [address] Calcium [Mass/Vol] 9.4 mg/dL Normal 7.6-11.0 [facility] Comment on above: Order Comment: 133 Performed By: #### L 500.4050, L503.6005, L300.8000, L100.0100, L501.5425 #### [facility] [address] [place], [address] Chloride [Moles/Vol] 106 mmol/L Normal 98-108 [facility] Comment on above: Order Comment: 133 Performed By: #### L 500.4050, L503.6005, L300.8000, L100.0100, L501.5425 #### [facility] [address] [place], [address] CO2 [Moles/Vol] 24.9 mmol/L Normal 21.0-32.0 [facility] Comment on above: Order Comment: 133 Performed By: #### L 500.4050, L503.6005, L300.8000, L100.0100, L501.5425 #### [facility] [address] [place], [address] Creatinine [Mass/Vol] 1.27 mg/dL High 0.70-1.[address] [facility] Comment on above: Order Comment: 133 Performed By: #### L 500.4050, L503.6005, L300.8000, L100.0100, L501.5425 #### [facility] [address] [place], [address] GAP 12 Normal 5-15 [facility] Comment on above: Order Comment: 133 Performed By: #### L 500.4050, L503.6005, L300.8000, L100.0100, L501.5425 #### [facility] [address] [place], [address] GFR/1.73 sq M.predicted among non-blacks MDRD (S/P/Bld) [Vol rate/Area] 62 mL/min/{1.73_m2} Normal >60 [facility] Comment on above: Order Comment: 133 Result Comment: mL/m in/1.73m2 CKD-EPI Creatinine Equation (2020) Performed By: #### L 500.4050, L503.6005, L300.8000, L100.0100, L501.5425 #### [facility] [address] [place], [address] Globulin (S) [Mass/Vol] 2.4 g/dL Normal 2.2-4.2 [facility] Comment on above: Order Comment: 133 Performed By: #### L 500.4050, L503.6005, L300.8000, L100.0100, L501.5425 #### [facility] [address] [place], [address] Glucose [Mass/Vol] 97 mg/dL Normal 70-99 [facility] Comment on above: Order Comment: 133 Performed By: #### L 500.4050, L503.6005, L300.8000, L100.0100, L501.5425 #### [facility] [address] [place], [address] Potassium [Moles/Vol] 4.4 mmol/L Normal 3.3-5.[address] [facility] Comment on above: Order Comment: 133 Performed By: #### L 500.4050, L503.6005, L300.8000, L100.0100, L501.5425 #### [facility] [address] [place], [address] Sodium [Moles/Vol] 143 mmol/L Normal 133-145 [facility] Comment on above: Order Comment: 133 Performed By: #### L 500.4050, L503.6005, L300.8000, L100.0100, L501.5425 #### [facility] [address] [place], [address] T PROT 6.7 g/dL Normal 5.9-8.4 [facility] Comment on above: Order Comment: 133 Performed By: #### L 500.4050, L503.6005, L300.8000, L100.0100, L501.5425 #### [facility] [address] [place], [address] Urea nitrogen [Mass/Vol] 24 mg/dL High 4-19 [facility] Comment on above: Order Comment: 133 Performed By: #### L 500.4050, L503.6005, L300.8000, L100.0100, L501.5425 #### [facility] [address] [place], [address] Hemoglobin A1con 10-23-2024 HbA1c (Bld) [Mass fraction] 6.2 % High <=5.6 [facility] Comment on above: Order Comment: 133 Result Comment: Norm al < 5.7 % Prediabetic 5.7 - 6.4 % Diabetic >or= 6.5 % Please note range changes. Performed By: #### L 500.4050, L503.6005, L300.8000, L100.0100, L501.5425 #### [facility] [address] [place], [address] Magnesiumon 10-23-2024 Magnesium [Mass/Vol] 2.4 mg/dL High 1.5-2.2 [facility] Comment on above: Order Comment: 133 Performed By: #### L 500.4050, L503.6005, L300.8000, L100.0100, L501.5425 #### [facility] [address] [place], [address] Valproic Acid (Depakene) Lev cecil 10-23-2024 VALPROIC ACID 75 ug/mL Normal 50-100 [facility] Comment on above: Order Comment: 133 Result Comment: Valp roic Acid concentrations >100 ug/mL are potentially toxic. Performed By: #### L 500.4050, L503.6005, L300.8000, L100.0100, L501.5425 #### [facility] [address] [place], [address] Anion gap in Serum or Plasma Ordered By: Jigna Brantley on 09-26-2024 Anion gap [Moles/Vol] 12 mmol/L 5-[address] [facility] BUN/creatinine ratioOrdered By: Jigna Brantley on 09-26-2024 Urea nitrogen/Creatinine [Mass ratio] 24.2 mg/mg High 10-20 [facility] Basic Metabolic Profile (BMP )on 09-26-2024 BUN/CRE 24.2 RATIO High 10-20 [facility] Comment on above: Order Comment: 209 Performed By: #### L 501.5200, L500.2500 #### [facility] [address] [place], [address] Calcium [Mass/Vol] 9.8 mg/dL Normal 7.6-11.0 [facility] Comment on above: Order Comment: 209 Performed By: #### L 501.5200, L500.2500 #### [facility] [address] [place], [address] Chloride [Moles/Vol] 103 mmol/L Normal 98-108 [facility] Comment on above: Order Comment: 209 Performed By: #### L 501.5200, L500.2500 #### [facility] [address] [place], [address] CO2 [Moles/Vol] 26.1 mmol/L Normal 21.0-32.0 [facility] Comment on above: Order Comment: 209 Performed By: #### L 501.5200, L500.2500 #### [facility] [address] [place], [address] Creatinine [Mass/Vol] 1.46 mg/dL High 0.70-1.[address] [facility] Comment on above: Order Comment: 209 Performed By: #### L 501.5200, L500.2500 #### [facility] [address] [place], [address] GAP 12 Normal 5-15 [facility] Comment on above: Order Comment: 209 Performed By: #### L 501.5200, L500.2500 #### [facility] [address] [place], [address] GFR/1.73 sq M.predicted among non-blacks MDRD (S/P/Bld) [Vol rate/Area] 52 mL/min/{1.73_m2} Low >60 [facility] Comment on above: Order Comment: 209 Result Comment: mL/m in/1.73m2 CKD-EPI Creatinine Equation (2020) Performed By: #### L 501.5200, L500.2500 #### [facility] [address] [place], [address] Glucose [Mass/Vol] 98 mg/dL Normal 70-99 [facility] Comment on above: Order Comment: 209 Performed By: #### L 501.5200, L500.2500 #### [facility] [address] [place], [address] Potassium [Moles/Vol] 4.5 mmol/L Normal 3.3-5.[address] [facility] Comment on above: Order Comment: 209 Performed By: #### L 501.5200, L500.2500 #### [facility] [address] [place], [address] Sodium [Moles/Vol] 141 mmol/L Normal 133-145 [facility] Comment on above: Order Comment: 209 Performed By: #### L 501.5200, L500.2500 #### [facility] [address] [place], [address] Urea nitrogen [Mass/Vol] 35 mg/dL High 4-19 [facility] Comment on above: Order Comment: 209 Performed By: #### L 501.5200, L500.2500 #### [facility] [address] [place], [address] Carbon dioxide, total [Moles /volume] in Central venous bloodOrdered By: Jigna Brantley on 09-26-2024 CO2 [Moles/Vol] 26.1 mmol/L 21.0-32.0 [facility] Chloride assayOrdered By: Fabricio Brantley on 09-26-2024 Chloride [Moles/Vol] 103 mmol/L 98-108 [facility] Glomerular filtration rate ( GFR) estimation/1.73 sq m using serum, plasma, or whole bOrdered By: Jigna Brantley on 09-26-2024 GFR/1.73 sq M.predicted among non-blacks MDRD (S/P/Bld) [Vol rate/Area] 52 mL/min/{1.73_m2} Low >60 [facility] Comment on above: mL/min/1.73m2 CKD-EP I Creatinine Equation (2020) Magnesiumon 09-26-2024 Magnesium [Mass/Vol] 2.4 mg/dL High 1.5-2.2 [facility] Comment on above: Order Comment: 209 Performed By: #### L 501.5200, L500.2500 #### [facility] [address] [place], [address] Magnesium measurement (mass/ volume)Ordered By: Jigna Brantley on 09-26-2024 Magnesium (Unsp spec) [Mass/Vol] 2.4 mg/dL High 1.5-2.2 [facility] Potassium measurement (mass/ volume)Ordered By: Jigna Brantley on 09-26-2024 Potassium (Unsp spec) [Mass/Vol] 4.5 mmol/L 3.3-5.1 [facility] Serum creatinine measurement (mass/volume)Ordered By: Jigna Brantley on 09-26-2024 Creatinine [Mass/Vol] 1.46 mg/dL High 0.70-1.[address] [facility] Serum glucose measurement (m ass/volume)Ordered By: Jigna Brantley on 09-26-2024 Glucose [Mass/Vol] 98 mg/dL 70-99 [facility] Serum or plasma calcium rosalina urement (mass/volume)Ordered By: Jigna Brantley on 09-26-2024 Calcium [Mass/Vol] 9.8 mg/dL 7.6-11.0 [facility] Serum or plasma urea nitroge n measurement (mass/volume)Ordered By: Jigna Brantley on 09-26-2024 Urea nitrogen [Mass/Vol] 35 mg/dL High 4-19 [facility] [facility] Sodium levelOrdered By: Enoch Brantley on 09-26-2024 Sodium [Moles/Vol] 141 mmol/L 133-145 [facility] CRPon 08-27-2024 C-REACTIVE PROT 37.80 mg/L High 0.0-3.0 [facility] Comment on above: Order Comment: 209 Performed By: #### L 500.4050, L503.6005, L300.8000, L100.0100, L501.5425 #### [facility] [address] [place], [place], [id number] CRP [Mass/Vol]Ordered By: Fabricio Brantley on 08-27-2024 C-Reactive Protein Extended Range 37.80 mg/L High 0.0-3.0 [facility] Serum or plasma C reactive p rotein measurement (mass/volume)Ordered By: Jigna Brantley on 08-27-2024 CRP [Mass/Vol] 37.80 mg/L High 0.0-3.0 [facility] Serum or plasma uric acid me asurement (mass/volume)Ordered By: Jigna Brantley on 08-27-2024 Urate [Mass/Vol] 7.6 mg/dL High 3.5-7.2 [facility] Comment on above: The drugs N-Acetylcy steine and Metamizole may falsely depress this assay. Uric Acidon 08-27-2024 URIC 7.6 mg/dL High 3.5-7.2 [facility] Comment on above: Order Comment: 209 Result Comment: The drugs N-Acetylcysteine and Metamizole may falsely depress this assay. Performed By: #### L 500.4050, L503.6005, L300.8000, L100.0100, L501.5425 #### [facility] [address] [place], [place], [id number] Absolute lymphocyte countOrd ered By: Jigna Brantley on 07-23-2024 Lymphocytes Auto (Unsp spec) [#/Vol] 3.24 10*3/uL 0.83-4.51 [facility] Absolute neutrophil countOrd ered By: Jigna Brantley on 07-23-2024 Neutrophils (Bld) [#/Vol] 5.5 10*3/uL 2.0-7.7 [facility] Automated lymphocyte count a s percentage of total leukocytesOrdered By: Jigna Brantley on 07-23-2024 Lymphocytes/100 WBC Auto (Unsp spec) 33.6 % 19-41 [facility] Basic Metabolic Profile (BMP )on 07-23-2024 BUN/CRE 16.1 RATIO Normal 10-20 [facility] Comment on above: Order Comment: Y Performed By: #### L 500.4050, L503.6005, L300.8000, L100.0100, L501.5425 #### [facility] [address] [place], [address] CA,Total 8.6 mg/dL Normal 8.5-10.1 [facility] Comment on above: Order Comment: Y Performed By: #### L 500.4050, L503.6005, L300.8000, L100.0100, L501.5425 #### [facility] [address] [place], [address] Chloride [Moles/Vol] 102 mmol/L Normal 98-107 [facility] Comment on above: Order Comment: Y Performed By: #### L 500.4050, L503.6005, L300.8000, L100.0100, L501.5425 #### [facility] [address] [place], [address] CO2 [Moles/Vol] 31.0 mmol/L Normal 21.0-32.0 [facility] Comment on above: Order Comment: Y Performed By: #### L 500.4050, L503.6005, L300.8000, L100.0100, L501.5425 #### [facility] [address] [place], [address] Creatinine [Mass/Vol] 1.37 mg/dL High 0.70-1.[address] [facility] Comment on above: Order Comment: Y Result Comment: The validity of the calculated GFR GFRAA in patients over 70 years has not been determined. Clinical correlation is essential. Performed By: #### L 500.4050, L503.6005, L300.8000, L100.0100, L501.5425 #### [facility] [address] [place], [address] EST GFR - AA 67 mL/min Normal >60 [facility] Comment on above: Order Comment: Y Result Comment: Afri can [place] GFR Calc Performed By: #### L 500.4050, L503.6005, L300.8000, L100.0100, L501.5425 #### [facility] [address] [place], [address] GAP 5 Normal 5-15 [facility] Comment on above: Order Comment: Y Performed By: #### L 500.4050, L503.6005, L300.8000, L100.0100, L501.5425 #### [facility] [address] [place], [address] GFR/1.73 sq M.predicted among non-blacks MDRD (S/P/Bld) [Vol rate/Area] 55 mL/min/{1.73_m2} Low >60 [facility] Comment on above: Order Comment: Y Result Comment: Non- GFR Calc Performed By: #### L 500.4050, L503.6005, L300.8000, L100.0100, L501.5425 #### [facility] [address] [place], [address] Glucose [Mass/Vol] 92 mg/dL Normal 74-106 [facility] Comment on above: Order Comment: Y Performed By: #### L 500.4050, L503.6005, L300.8000, L100.0100, L501.5425 #### [facility] [address] [place], [address] Potassium [Moles/Vol] 4.1 mmol/L Normal 3.5-5.[address] [facility] Comment on above: Order Comment: Y Performed By: #### L 500.4050, L503.6005, L300.8000, L100.0100, L501.5425 #### [facility] [address] [place], [address] Sodium [Moles/Vol] 138 mmol/L Normal 136-145 [facility] Comment on above: Order Comment: Y Performed By: #### L 500.4050, L503.6005, L300.8000, L100.0100, L501.5425 #### [facility] [address] [place], [address] Urea nitrogen [Mass/Vol] 22 mg/dL High 7-18 [facility] Comment on above: Order Comment: Y Performed By: #### L 500.4050, L503.6005, L300.8000, L100.0100, L501.5425 #### [facility] [address] [place], [address] Basophil percentageOrdered B y: Jigna rBantley on 07-23-2024 Basophils/100 WBC (Bld) 0.5 % 0-1 [facility] Blood urea nitrogen (BUN)/cr eatinine ratioOrdered By: Jigna Brantley on 07-23-2024 Urea nitrogen/Creatinine [Mass ratio] 16.1 mg/mg 10-20 [facility] CBC W/Diff, Automatedon 07-01 Absolute Lymph 3.24 X10 3/uL Normal 0.83-4.51 [facility] Comment on above: Order Comment: Y Performed By: #### L 500.4050, L503.6005, L300.8000, L100.0100, L501.5425 #### [facility] [address] [place], [address] Absolute Neut 5.5 X10 3/uL Normal 2.0-7.7 [facility] Comment on above: Order Comment: Y Performed By: #### L 500.4050, L503.6005, L300.8000, L100.0100, L501.5425 #### [facility] [address] [place], [address] Basophils/100 WBC (Bld) 0.5 % Normal 0-1 [facility] Comment on above: Order Comment: Y Performed By: #### L 500.4050, L503.6005, L300.8000, L100.0100, L501.5425 #### [facility] [address] [place], [address] Eosinophils/100 WBC (Bld) 0.6 % Normal 0-5 [facility] Comment on above: Order Comment: Y Performed By: #### L 500.4050, L503.6005, L300.8000, L100.0100, L501.5425 #### [facility] [address] [place], [address] Erythrocyte distribution width (RBC) [Ratio] 14.1 % Normal 11.6-14.6 [facility] Comment on above: Order Comment: Y Performed By: #### L 500.4050, L503.6005, L300.8000, L100.0100, L501.5425 #### [facility] [address] [place], [address] Hematocrit (Bld) [Volume fraction] 43.3 % Normal 40-54 [facility] Comment on above: Order Comment: Y Performed By: #### L 500.4050, L503.6005, L300.8000, L100.0100, L501.5425 #### [facility] [address] [place], [address] Hemoglobin (Bld) [Mass/Vol] 13.9 g/dL Normal 13.0-16.5 [facility] Comment on above: Order Comment: Y Performed By: #### L 500.4050, L503.6005, L300.8000, L100.0100, L501.5425 #### [facility] [address] [place], [address] IG% 0.600 Normal 0.0-0.9 [facility] Comment on above: Order Comment: Y Result Comment: IG% - Immature Granulocytes (promyelocytes, myelocytes and metamyelocytes) > 1% indicates that a LEFT SHIFT is Present. Performed By: #### L 500.4050, L503.6005, L300.8000, L100.0100, L501.5425 #### [facility] [address] [place], [address] Lymphocytes/100 WBC (Bld) 33.6 % Normal 19-41 [facility] Comment on above: Order Comment: Y Performed By: #### L 500.4050, L503.6005, L300.8000, L100.0100, L501.5425 #### [facility] [address] [place], [address] MCH (RBC) [Entitic mass] 30.3 pg Normal 27.0-32.0 [facility] Comment on above: Order Comment: Y Performed By: #### L 500.4050, L503.6005, L300.8000, L100.0100, L501.5425 #### [facility] [address] [place], [address] MCHC (RBC) [Mass/Vol] 32.1 g/dL Normal 32-[address] [facility] Comment on above: Order Comment: Y Performed By: #### L 500.4050, L503.6005, L300.8000, L100.0100, L501.5425 #### [facility] [address] [place], [address] MCV (RBC) [Entitic vol] 94.3 fL High 80-94 [facility] Comment on above: Order Comment: Y Performed By: #### L 500.4050, L503.6005, L300.8000, L100.0100, L501.5425 #### [facility] [address] [place], [address] Monocytes/100 WBC (Bld) 7.2 % Normal 0-10 [facility] Comment on above: Order Comment: Y Performed By: #### L 500.4050, L503.6005, L300.8000, L100.0100, L501.5425 #### [facility] [address] [place], [address] Neutrophils/100 WBC (Bld) 57.5 % Normal 47-70 [facility] Comment on above: Order Comment: Y Performed By: #### L 500.4050, L503.6005, L300.8000, L100.0100, L501.5425 #### [facility] [address] [place], [address] Nucleated RBC (Bld) [#/Vol] 0 10*3/uL Normal 0-5 [facility] Comment on above: Order Comment: Y Performed By: #### L 500.4050, L503.6005, L300.8000, L100.0100, L501.5425 #### [facility] [address] [place], [address] Platelet mean volume (Bld) [Entitic vol] 11.2 fL Normal 6.2-12.0 [facility] Comment on above: Order Comment: Y Performed By: #### L 500.4050, L503.6005, L300.8000, L100.0100, L501.5425 #### [facility] [address] [place], [address] Platelets (Bld) [#/Vol] 320 10*3/uL Normal 150-450 [facility] Comment on above: Order Comment: Y Performed By: #### L 500.4050, L503.6005, L300.8000, L100.0100, L501.5425 #### [facility] [address] [place], [address] RBC (Bld) [#/Vol] 4.59 10*6/uL Low 4.6-6.2 [facility] Comment on above: Order Comment: Y Performed By: #### L 500.4050, L503.6005, L300.8000, L100.0100, L501.5425 #### [facility] [address] [place], [address] RDW SD 48.2 fl High 35.1-43.9 [facility] Comment on above: Order Comment: Y Performed By: #### L 500.4050, L503.6005, L300.8000, L100.0100, L501.5425 #### [facility] [address] [place], [address] WBC (Bld) [#/Vol] 9.6 10*3/uL Normal 4.4-11.0 [facility] Comment on above: Order Comment: Y Performed By: #### L 500.4050, L503.6005, L300.8000, L100.0100, L501.5425 #### [facility] [address] [place], [address] Carbon dioxide measurementOr dered By: Jigna Brantley on 07-23-2024 CO2 [Moles/Vol] 31.0 mmol/L 21.0-32.0 [facility] Chloride measurementOrdered By: Jigna Brantley on 07-23-2024 Chloride [Moles/Vol] 102 mmol/L 98-107 [facility] Eosinophil percentageOrdered By: Jigan Brantley on 07-23-2024 Eosinophils/100 WBC (Bld) 0.6 % 0-5 [facility] Erythrocyte distribution wid th (RBC) [Ratio]Ordered By: Jigna Brantley on 07-23-2024 Erythrocyte distribution width (RBC) [Entitic vol] 48.2 fL High 35.1-43.9 [facility] Erythrocyte distribution wid th ratioOrdered By: Jigna Brantley on 07-23-2024 Erythrocyte distribution width (RBC) [Ratio] 14.1 % 11.6-14.6 [facility] Erythrocyte distribution wid th standard deviationOrdered By: Jigna Brantley on 07-23-2024 Erythrocyte distribution width (RBC) [Ratio] 48.2 fl High 35.1-43.9 [facility] Estimated glomerular filtrat ion rate (GFR) AmericanOrdered By: Jigna Brantley on 07-23-2024 Estimated GFR (MDRD) Amer 67 mL/min >60 [facility] Comment on above: GFR Calc Glomerular filtration rate ( GFR) estimationOrdered By: Jigna Brantley on 07-23-2024 Estimated GFR (MDRD) Non-Af Amer 55 mL/min Low >60 [facility] Comment on above: Non- GFR Calc GFR/1.73 sq M.predicted among non-blacks MDRD (S/P/Bld) [Vol rate/Area] 55 mL/min/{1.73_m2} Low >60 [facility] Comment on above: Non- GFR Calc Glucose measurementOrdered B y: Jigna Brantley on 07-23-2024 Glucose [Mass/Vol] 92 mg/dL 74-106 [facility] Hematocrit Auto (Bld) [Volum e fraction]Ordered By: Jigna Brantley on 07-23-2024 Hematocrit (Bld) [Volume fraction] 43.3 % 40-54 [facility] Hemoglobin measurementOrdere d By: Jigna Brantley on 07-23-2024 Hemoglobin (Bld) [Mass/Vol] 13.9 g/dL 13.0-16.5 [facility] Immature granulocytes/100 WB C Auto (Bld)Ordered By: Jigna Brantley on 07-23-2024 Immature granulocytes/100 WBC (Bld) 0.600 % 0.0-0.9 [facility] Comment on above: IG% - Immature Granu locytes (promyelocytes, myelocytes and metamyelocytes) > 1% indicates that a LEFT SHIFT is Present. Lymphocytes Auto (Unsp spec) [#/Vol]Ordered By: Jigna Brantley on 07-23-2024 Lymphocytes (Bld) [#/Vol] 3.24 10*3/uL 0.83-4.51 [facility] Lymphocytes/100 WBC Auto (Un sp spec)Ordered By: Jigna Brantley on 07-23-2024 Lymphocytes/100 WBC (Bld) 33.6 % 19-41 [facility] MCV (mean corpuscular volume ) determinationOrdered By: Jigna Brantley on 07-23-2024 MCV (RBC) [Entitic vol] 94.3 fL High 80-94 [facility] Magnesiumon 07-23-2024 Magnesium [Mass/Vol] 2.5 mg/dL Normal 1.6-2.6 [facility] Comment on above: Order Comment: Y Performed By: #### L 500.4050, L503.6005, L300.8000, L100.0100, L501.5425 #### [facility] [address] [place] [address]. [place], [place], [id number] Magnesium measurementOrdered By: Jigna Brantley on 07-23-2024 Magnesium [Mass/Vol] 2.5 mg/dL 1.6-2.6 [facility] Mean corpuscular hemoglobin (MCH) determinationOrdered By: Jigna Brantley on 07-23-2024 MCH (RBC) [Entitic mass] 30.3 pg 27.0-32.0 [facility] Mean corpuscular hemoglobin concentration (MCHC) determinationOrdered By: Jigna Brantley on 07-23-2024 MCHC (RBC) [Mass/Vol] 32.1 g/dL 32-[address] [facility] Mean platelet volume determi nationOrdered By: Jigna Brantley on 07-23-2024 Platelet mean volume (Bld) [Entitic vol] 11.2 fL 6.2-12.0 [facility] Monocyte percentageOrdered B y: Jigna Brantley on 07-23-2024 Monocytes/100 WBC (Bld) 7.2 % 0-10 [facility] Neutrophil percentageOrdered By: Jigna Brantley on 07-23-2024 Neutrophils/100 WBC (Bld) 57.5 % 47-70 [facility] Nucleated red blood cell per centageOrdered By: Jigna Brantley on 07-23-2024 Nucleated RBC/100 WBC (Bld) [Ratio] 0 % 0-5 [facility] Platelet countOrdered By: Fabricio Brantley on 07-23-2024 Platelets (Bld) [#/Vol] 320 10*3/uL 150-450 [facility] Potassium measurementOrdered By: Jigna Brantley on 07-23-2024 Potassium [Moles/Vol] 4.1 mmol/L 3.5-5.[address] [facility] RBC Auto (Bld) [#/Vol]Ordere d By: Jigna Brantley on 07-23-2024 RBC (Bld) [#/Vol] 4.59 10*6/uL Low 4.6-6.2 [facility] Serum anion gap measurementO rdered By: Jigna Brantley on 07-23-2024 Anion gap [Moles/Vol] 5 mmol/L 5-[address] [facility] Serum or plasma calcium rosalina urement (mass/volume)Ordered By: Jigna Brantley on 07-23-2024 Calcium [Mass/Vol] 8.6 mg/dL 8.5-10.1 [facility] Serum or plasma creatinine m easurement (mass/volume)Ordered By: Jigna Brantley on 07-23-2024 Creatinine [Mass/Vol] 1.37 mg/dL High 0.70-1.[address] [facility] Comment on above: The validity of the calculated GFR & GFRAA in patients over 70 years has not been determined. Clinical correlation is essential. Serum or plasma urea nitroge n measurement (mass/volume)Ordered By: Jigna Brantley on 07-23-2024 Urea nitrogen [Mass/Vol] 22 mg/dL High 7-18 [facility] Sodium levelOrdered By: Enoch Brantley on 07-23-2024 Sodium [Moles/Vol] 138 mmol/L 136-145 [facility] White blood cell (WBC) count Ordered By: Jigna Brantley on 07-23-2024 WBC (Bld) [#/Vol] 9.6 10*3/uL 4.4-11.0 [facility] Absolute lymphocyte countOrd ered By: Jigna Brantley on 07-16-2024 Lymphocytes Auto (Unsp spec) [#/Vol] 1.83 10*3/uL 0.83-4.51 [facility] Absolute neutrophil countOrd ered By: Jigna Brantley on 07-16-2024 Neutrophils (Bld) [#/Vol] 7.9 10*3/uL High 2.0-7.7 [facility] Automated lymphocyte count a s percentage of total leukocytesOrdered By: Jigna Brantley on 07-16-2024 Lymphocytes/100 WBC Auto (Unsp spec) 17.2 % Low 19-41 [facility] Basic Metabolic Profile (BMP )on 07-16-2024 BUN/CRE 18.8 RATIO Normal 10-20 [facility] Comment on above: Order Comment: 206 Performed By: #### L 500.4050, L503.6005, L300.8000, L100.0100, L501.5425 #### [facility] [address] [place], [address] CA,Total 9.3 mg/dL Normal 8.5-10.1 [facility] Comment on above: Order Comment: 206 Performed By: #### L 500.4050, L503.6005, L300.8000, L100.0100, L501.5425 #### [facility] [address] [place], [address] Chloride [Moles/Vol] 103 mmol/L Normal 98-107 [facility] Comment on above: Order Comment: 206 Performed By: #### L 500.4050, L503.6005, L300.8000, L100.0100, L501.5425 #### [facility] [address] [place], [address] CO2 [Moles/Vol] 27.0 mmol/L Normal 21.0-32.0 [facility] Comment on above: Order Comment: 206 Performed By: #### L 500.4050, L503.6005, L300.8000, L100.0100, L501.5425 #### [facility] [address] [place], [address] Creatinine [Mass/Vol] 1.17 mg/dL Normal 0.70-1.[address] [facility] Comment on above: Order Comment: 206 Result Comment: The validity of the calculated GFR GFRAA in patients over 70 years has not been determined. Clinical correlation is essential. Performed By: #### L 500.4050, L503.6005, L300.8000, L100.0100, L501.5425 #### [facility] [address] [place], [address] EST GFR - AA 80 mL/min Normal >60 [facility] Comment on above: Order Comment: 206 Result Comment: Afri can [place] GFR Calc Performed By: #### L 500.4050, L503.6005, L300.8000, L100.0100, L501.5425 #### [facility] [address] [place], [address] GAP 9 Normal 5-15 [facility] Comment on above: Order Comment: 206 Performed By: #### L 500.4050, L503.6005, L300.8000, L100.0100, L501.5425 #### [facility] [address] [place], [address] GFR/1.73 sq M.predicted among non-blacks MDRD (S/P/Bld) [Vol rate/Area] 66 mL/min/{1.73_m2} Normal >60 [facility] Comment on above: Order Comment: 206 Result Comment: Non- GFR Calc Performed By: #### L 500.4050, L503.6005, L300.8000, L100.0100, L501.5425 #### [facility] [address] [place], [address] Glucose [Mass/Vol] 94 mg/dL Normal 74-106 [facility] Comment on above: Order Comment: 206 Performed By: #### L 500.4050, L503.6005, L300.8000, L100.0100, L501.5425 #### [facility] [address] [place], [address] Potassium [Moles/Vol] 3.6 mmol/L Normal 3.5-5.[address] [facility] Comment on above: Order Comment: 206 Performed By: #### L 500.4050, L503.6005, L300.8000, L100.0100, L501.5425 #### [facility] [address] [place], [address] Sodium [Moles/Vol] 139 mmol/L Normal 136-145 [facility] Comment on above: Order Comment: 206 Performed By: #### L 500.4050, L503.6005, L300.8000, L100.0100, L501.5425 #### [facility] [address] [place], [address] Urea nitrogen [Mass/Vol] 22 mg/dL High 7-18 [facility] Comment on above: Order Comment: 206 Performed By: #### L 500.4050, L503.6005, L300.8000, L100.0100, L501.5425 #### [facility] [address] [place], [address] Basophil percentageOrdered B y: Jigna Brantley on 07-16-2024 Basophils/100 WBC (Bld) 0.1 % 0-1 [facility] Blood urea nitrogen (BUN)/cr eatinine ratioOrdered By: Jigna Brantley on 07-16-2024 Urea nitrogen/Creatinine [Mass ratio] 18.8 mg/mg 10-20 [facility] CBC W/Diff, Automatedon 06-30 Absolute Lymph 1.83 X10 3/uL Normal 0.83-4.51 [facility] Comment on above: Order Comment: 206 Performed By: #### L 500.4050, L503.6005, L300.8000, L100.0100, L501.5425 #### [facility] [address] [place], [address] Absolute Neut 7.9 X10 3/uL High 2.0-7.7 [facility] Comment on above: Order Comment: 206 Performed By: #### L 500.4050, L503.6005, L300.8000, L100.0100, L501.5425 #### [facility] [address] [place], [address] Basophils/100 WBC (Bld) 0.1 % Normal 0-1 [facility] Comment on above: Order Comment: 206 Performed By: #### L 500.4050, L503.6005, L300.8000, L100.0100, L501.5425 #### [facility] [address] [place], [address] Eosinophils/100 WBC (Bld) 0.1 % Normal 0-5 [facility] Comment on above: Order Comment: 206 Performed By: #### L 500.4050, L503.6005, L300.8000, L100.0100, L501.5425 #### [facility] [address] [place], [address] Erythrocyte distribution width (RBC) [Ratio] 13.2 % Normal 11.6-14.6 [facility] Comment on above: Order Comment: 206 Performed By: #### L 500.4050, L503.6005, L300.8000, L100.0100, L501.5425 #### [facility] [address] [place], [address] Hematocrit (Bld) [Volume fraction] 41.3 % Normal 40-54 [facility] Comment on above: Order Comment: 206 Performed By: #### L 500.4050, L503.6005, L300.8000, L100.0100, L501.5425 #### [facility] [address] [place], [address] Hemoglobin (Bld) [Mass/Vol] 13.3 g/dL Normal 13.0-16.5 [facility] Comment on above: Order Comment: 206 Performed By: #### L 500.4050, L503.6005, L300.8000, L100.0100, L501.5425 #### [facility] [address] [place], [address] IG% 0.700 Normal 0.0-0.9 [facility] Comment on above: Order Comment: 206 Result Comment: IG% - Immature Granulocytes (promyelocytes, myelocytes and metamyelocytes) > 1% indicates that a LEFT SHIFT is Present. Performed By: #### L 500.4050, L503.6005, L300.8000, L100.0100, L501.5425 #### [facility] [address] [place], [address] Lymphocytes/100 WBC (Bld) 17.2 % Low 19-41 [facility] Comment on above: Order Comment: 206 Performed By: #### L 500.4050, L503.6005, L300.8000, L100.0100, L501.5425 #### [facility] [address] [place], [address] MCH (RBC) [Entitic mass] 29.7 pg Normal 27.0-32.0 [facility] Comment on above: Order Comment: 206 Performed By: #### L 500.4050, L503.6005, L300.8000, L100.0100, L501.5425 #### [facility] [address] [place], [address] MCHC (RBC) [Mass/Vol] 32.2 g/dL Normal 32-[address] [facility] Comment on above: Order Comment: 206 Performed By: #### L 500.4050, L503.6005, L300.8000, L100.0100, L501.5425 #### [facility] [address] [place], [address] MCV (RBC) [Entitic vol] 92.2 fL Normal 80-94 [facility] Comment on above: Order Comment: 206 Performed By: #### L 500.4050, L503.6005, L300.8000, L100.0100, L501.5425 #### [facility] [address] [place], [address] Monocytes/100 WBC (Bld) 7.6 % Normal 0-10 [facility] Comment on above: Order Comment: 206 Performed By: #### L 500.4050, L503.6005, L300.8000, L100.0100, L501.5425 #### [facility] [address] [place], [address] Neutrophils/100 WBC (Bld) 74.3 % High 47-70 [facility] Comment on above: Order Comment: 206 Performed By: #### L 500.4050, L503.6005, L300.8000, L100.0100, L501.5425 #### [facility] [address] [place], [address] Nucleated RBC (Bld) [#/Vol] 0 10*3/uL Normal 0-5 [facility] Comment on above: Order Comment: 206 Performed By: #### L 500.4050, L503.6005, L300.8000, L100.0100, L501.5425 #### [facility] [address] [place], [address] Platelet mean volume (Bld) [Entitic vol] 10.4 fL Normal 6.2-12.0 [facility] Comment on above: Order Comment: 206 Performed By: #### L 500.4050, L503.6005, L300.8000, L100.0100, L501.5425 #### [facility] [address] [place], [address] Platelets (Bld) [#/Vol] 462 10*3/uL High 150-450 [facility] Comment on above: Order Comment: 206 Performed By: #### L 500.4050, L503.6005, L300.8000, L100.0100, L501.5425 #### [facility] [address] [place], [address] RBC (Bld) [#/Vol] 4.48 10*6/uL Low 4.6-6.2 [facility] Comment on above: Order Comment: 206 Performed By: #### L 500.4050, L503.6005, L300.8000, L100.0100, L501.5425 #### [facility] [address] [place], [address] RDW SD 44.1 fl High 35.1-43.9 [facility] Comment on above: Order Comment: 206 Performed By: #### L 500.4050, L503.6005, L300.8000, L100.0100, L501.5425 #### [facility] [address] [place], [address] WBC (Bld) [#/Vol] 10.6 10*3/uL Normal 4.4-11.0 [facility] Comment on above: Order Comment: 206 Performed By: #### L 500.4050, L503.6005, L300.8000, L100.0100, L501.5425 #### [facility] [address] [place], [address] KVNGShadia 07-16-2024 MAKAYLA Telephone ([facility]) REINA SULLIVAN ([id number]) 1955 M Date Time Provider Department 07/16/24 ARIC ZAPIEN [facility] During your visit today, we recorded the following information about you: Felicita Bolden MA 07/16/2024 3:30 PM Signed Patient canceled his appointment on 07/12/24 with Isa Stevenson. He was discharged from [facility] on 07/11/24 DX: AFIB RVR, debility. Called and spoke with ex- Flor, his emergency contact, and she said he is in [facility] for rehab with the hopes for [...] daily. Dx: Type 2 DM - Uncontrolled Insulin: No - apixaban (ELIQUIS) 5 mg [...] unspecified na*09/30/2022 Left atrial enlargement [I51.7] 09/30/2022 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 of 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 *09/30/2022 Migraine [...] Status:Closed by FELICITA BOLDEN on 08/07/24 [facility] Carbon dioxide measurementOr dered By: Jigna Brantley on 07-16-2024 CO2 [Moles/Vol] 27.0 mmol/L 21.0-32.0 [facility] Chloride measurementOrdered By: Jigna Brantley on 07-16-2024 Chloride [Moles/Vol] 103 mmol/L 98-107 [facility] Eosinophil percentageOrdered By: Jigna Brantley on 07-16-2024 Eosinophils/100 WBC (Bld) 0.1 % 0-5 [facility] Erythrocyte distribution wid th (RBC) [Ratio]Ordered By: Jigna Brantley on 07-16-2024 Erythrocyte distribution width (RBC) [Entitic vol] 44.1 fL High 35.1-43.9 [facility] Erythrocyte distribution wid th ratioOrdered By: Jigna Brantley on 07-16-2024 Erythrocyte distribution width (RBC) [Ratio] 13.2 % 11.6-14.6 [facility] Erythrocyte distribution wid th standard deviationOrdered By: Jigna Brantley on 07-16-2024 Erythrocyte distribution width (RBC) [Ratio] 44.1 fl High 35.1-43.9 [facility] Estimated glomerular filtrat ion rate (GFR) AmericanOrdered By: Jigna Brantley on 07-16-2024 Estimated GFR (MDRD) Amer 80 mL/min >60 [facility] Comment on above: GFR Calc Glomerular filtration rate ( GFR) estimationOrdered By: Jigna Brantley on 07-16-2024 Estimated GFR (MDRD) Non-Af Amer 66 mL/min >60 [facility] Comment on above: Non- GFR Calc GFR/1.73 sq M.predicted among non-blacks MDRD (S/P/Bld) [Vol rate/Area] 66 mL/min/{1.73_m2} >60 [facility] Comment on above: Non- GFR Calc Glucose measurementOrdered B y: Jigna Brantley on 07-16-2024 Glucose [Mass/Vol] 94 mg/dL 74-106 [facility] Hematocrit Auto (Bld) [Volum e fraction]Ordered By: Jigna Brantley on 07-16-2024 Hematocrit (Bld) [Volume fraction] 41.3 % 40-54 [facility] Hemoglobin measurementOrdere d By: Jigna Brantley on 07-16-2024 Hemoglobin (Bld) [Mass/Vol] 13.3 g/dL 13.0-16.5 [facility] Immature granulocytes/100 WB C Auto (Bld)Ordered By: Jignabailey Brantley on 07-16-2024 Immature granulocytes/100 WBC (Bld) 0.700 % 0.0-0.9 [facility] Comment on above: IG% - Immature Granu locytes (promyelocytes, myelocytes and metamyelocytes) > 1% indicates that a LEFT SHIFT is Present. Lymphocytes Auto (Unsp spec) [#/Vol]Ordered By: Jigna Brantley on 07-16-2024 Lymphocytes (Bld) [#/Vol] 1.83 10*3/uL 0.83-4.51 [facility] Lymphocytes/100 WBC Auto (Un sp spec)Ordered By: Jigna Brantley on 07-16-2024 Lymphocytes/100 WBC (Bld) 17.2 % Low 19-41 [facility] MCV (mean corpuscular volume ) determinationOrdered By: Jigna Brantley on 07-16-2024 MCV (RBC) [Entitic vol] 92.2 fL 80-94 [facility] Magnesiumon 07-16-2024 Magnesium [Mass/Vol] 2.7 mg/dL High 1.6-2.6 [facility] Comment on above: Order Comment: 206 Performed By: #### L 500.4050, L503.6005, L300.8000, L100.0100, L501.5425 #### [facility] [place], [address] Magnesium measurementOrdered By: Jigna Brantley on 07-16-2024 Magnesium [Mass/Vol] 2.7 mg/dL High 1.6-2.6 [facility] Mean corpuscular hemoglobin (MCH) determinationOrdered By: Jigna Brantley on 07-16-2024 MCH (RBC) [Entitic mass] 29.7 pg 27.0-32.0 [facility] Mean corpuscular hemoglobin concentration (MCHC) determinationOrdered By: Jigna Brantley on 07-16-2024 MCHC (RBC) [Mass/Vol] 32.2 g/dL 32-[address] [facility] Mean platelet volume determi nationOrdered By: Jigna Brantley on 07-16-2024 Platelet mean volume (Bld) [Entitic vol] 10.4 fL 6.2-12.0 [facility] Monocyte percentageOrdered B y: Jigna Brantley on 07-16-2024 Monocytes/100 WBC (Bld) 7.6 % 0-10 [facility] Neutrophil percentageOrdered By: Jigna Brantley on 07-16-2024 Neutrophils/100 WBC (Bld) 74.3 % High 47-70 [facility] Nucleated red blood cell per centageOrdered By: Jigna Brantley on 07-16-2024 Nucleated RBC/100 WBC (Bld) [Ratio] 0 % 0-5 [facility] Platelet countOrdered By: Fabricio Brantley on 07-16-2024 Platelets (Bld) [#/Vol] 462 10*3/uL High 150-450 [facility] Potassium measurementOrdered By: Jigna Brantley on 07-16-2024 Potassium [Moles/Vol] 3.6 mmol/L 3.5-5.[address] [facility] RBC Auto (Bld) [#/Vol]Ordere d By: Jigna Brantley on 07-16-2024 RBC (Bld) [#/Vol] 4.48 10*6/uL Low 4.6-6.2 [facility] Serum anion gap measurementO rdered By: Jigna Brantley on 07-16-2024 Anion gap [Moles/Vol] 9 mmol/L 5-[address] [facility] Serum or plasma calcium rosalina urement (mass/volume)Ordered By: Jigna Brantley on 07-16-2024 Calcium [Mass/Vol] 9.3 mg/dL 8.5-10.1 [facility] Serum or plasma creatinine m easurement (mass/volume)Ordered By: Jigna Brantley on 07-16-2024 Creatinine [Mass/Vol] 1.17 mg/dL 0.70-1.[address] [facility] Comment on above: The validity of the calculated GFR & GFRAA in patients over 70 years has not been determined. Clinical correlation is essential. Serum or plasma urea nitroge n measurement (mass/volume)Ordered By: Jigna Brantley on 07-16-2024 Urea nitrogen [Mass/Vol] 22 mg/dL High 7-18 [facility] Sodium levelOrdered By: Enoch Brantley on 07-16-2024 Sodium [Moles/Vol] 139 mmol/L 136-145 [facility] Valproate levelOrdered By: Keo Brantley on 07-16-2024 Valproic Acid (Depakene) Level 71 ug/mL 50-100 [facility] Valproic Acid (Depakene) Lev cecil 07-16-2024 VALPROIC ACID 71 ug/mL Normal 50-100 [facility] Comment on above: Order Comment: 206 Performed By: #### L 500.4050, L503.6005, L300.8000, L100.0100, L501.5425 #### [facility] [address] [place], [address] White blood cell (WBC) count Ordered By: Jigna Brantley on 07-16-2024 WBC (Bld) [#/Vol] 10.6 10*3/uL 4.4-11.0 [facility] 41-HX-Ancrnnz DOrdered By: Keo Brantley on 07-12-2024 Vitamin D 25-Hydroxy 6.3 ng/mL [facility] Comment on above: Vitamin D 25(OH) Sta tus Range Deficiency <20 ng/mL (50nmol/L) Insufficiency 20 - 30 ng/mL (50 - 75 nmol/L) Sufficiency 30 - 100 ng/mL (75 - 250 nmol/L) Toxicity >100 ng/mL (>250 nmol/L) Absolute lymphocyte countOrd ered By: Jigna Brantley on 07-12-2024 Lymphocytes Auto (Unsp spec) [#/Vol] 1.79 10*3/uL 0.83-4.51 [facility] Absolute neutrophil countOrd ered By: Jigna Brantley on 07-12-2024 Neutrophils (Bld) [#/Vol] 7.6 10*3/uL 2.0-7.7 [facility] Automated lymphocyte count a s percentage of total leukocytesOrdered By: Jigna Brantley on 07-12-2024 Lymphocytes/100 WBC Auto (Unsp spec) 17.4 % Low 19-41 [facility] Basic Metabolic Profile (BMP )on 07-12-2024 BUN/CRE 21.0 RATIO High 10-20 [facility] Comment on above: Order Comment: 1 Y Performed By: #### L 500.4050, L503.6005, L300.8000, L100.0100, L501.5425 #### [facility] [address] [place], [address] CA,Total 9.6 mg/dL Normal 8.5-10.1 [facility] Comment on above: Order Comment: 1 Y Performed By: #### L 500.4050, L503.6005, L300.8000, L100.0100, L501.5425 #### [facility] [address] [place], [address] Chloride [Moles/Vol] 104 mmol/L Normal 98-107 [facility] Comment on above: Order Comment: 1 Y Performed By: #### L 500.4050, L503.6005, L300.8000, L100.0100, L501.5425 #### [facility] [address] [place], [address] CO2 [Moles/Vol] 32.0 mmol/L Normal 21.0-32.0 [facility] Comment on above: Order Comment: 1 Y Performed By: #### L 500.4050, L503.6005, L300.8000, L100.0100, L501.5425 #### [facility] [address] [place], [address] Creatinine [Mass/Vol] 1.19 mg/dL Normal 0.70-1.[address] [facility] Comment on above: Order Comment: 1 Y Result Comment: The validity of the calculated GFR GFRAA in patients over 70 years has not been determined. Clinical correlation is essential. Performed By: #### L 500.4050, L503.6005, L300.8000, L100.0100, L501.5425 #### [facility] [address] [place], [address] EST GFR - AA 78 mL/min Normal >60 [facility] Comment on above: Order Comment: 1 Y Result Comment: Afri can [place] GFR Calc Performed By: #### L 500.4050, L503.6005, L300.8000, L100.0100, L501.5425 #### [facility] [address] [place], [address] GAP 5 Normal 5-15 [facility] Comment on above: Order Comment: 1 Y Performed By: #### L 500.4050, L503.6005, L300.8000, L100.0100, L501.5425 #### [facility] [address] [place], [address] GFR/1.73 sq M.predicted among non-blacks MDRD (S/P/Bld) [Vol rate/Area] 65 mL/min/{1.73_m2} Normal >60 [facility] Comment on above: Order Comment: 1 Y Result Comment: Non- GFR Calc Performed By: #### L 500.4050, L503.6005, L300.8000, L100.0100, L501.5425 #### [facility] [address] [place], [address] Glucose [Mass/Vol] 104 mg/dL Normal 74-106 [facility] Comment on above: Order Comment: 1 Y Result Comment: Fast ing Glucose result from 100 to 125 mg/dL suggests IMPAIRED HOMEOSTASIS per A.D.A. criteria. Performed By: #### L 500.4050, L503.6005, L300.8000, L100.0100, L501.5425 #### [facility] [address] [place], [address] Potassium [Moles/Vol] 3.8 mmol/L Normal 3.5-5.[address] [facility] Comment on above: Order Comment: 1 Y Performed By: #### L 500.4050, L503.6005, L300.8000, L100.0100, L501.5425 #### [facility] [address] [place], [address] Sodium [Moles/Vol] 141 mmol/L Normal 136-145 [facility] Comment on above: Order Comment: 1 Y Performed By: #### L 500.4050, L503.6005, L300.8000, L100.0100, L501.5425 #### [facility] [address] [place], [address] Urea nitrogen [Mass/Vol] 25 mg/dL High 7-18 [facility] Comment on above: Order Comment: 1 Y Performed By: #### L 500.4050, L503.6005, L300.8000, L100.0100, L501.5425 #### [facility] [address] [place], [address] Basophil percentageOrdered B y: Jigna Brantley on 07-12-2024 Basophils/100 WBC (Bld) 0.2 % 0-1 [facility] Blood urea nitrogen (BUN)/cr eatinine ratioOrdered By: Jigna Brantley on 07-12-2024 Urea nitrogen/Creatinine [Mass ratio] 21.0 mg/mg High 10-20 [facility] CBC W/Diff, Automatedon 06-30 Absolute Lymph 1.79 X10 3/uL Normal 0.83-4.51 [facility] Comment on above: Order Comment: 206.1 Performed By: #### L 500.4050, L503.6005, L300.8000, L100.0100, L501.5425 #### [facility] [address] [place], [address] Absolute Neut 7.6 X10 3/uL Normal 2.0-7.7 [facility] Comment on above: Order Comment: . Performed By: #### L 500.4050, L503.6005, L300.8000, L100.0100, L501.5425 #### [facility] [address] [place], [address] Basophils/100 WBC (Bld) 0.2 % Normal 0-1 [facility] Comment on above: Order Comment: . Performed By: #### L 500.4050, L503.6005, L300.8000, L100.0100, L501.5425 #### [facility] [address] [place], [address] Eosinophils/100 WBC (Bld) 0.0 % Normal 0-5 [facility] Comment on above: Order Comment: 206.1 Performed By: #### L 500.4050, L503.6005, L300.8000, L100.0100, L501.5425 #### [facility] [address] [place], [address] Erythrocyte distribution width (RBC) [Ratio] 12.8 % Normal 11.6-14.6 [facility] Comment on above: Order Comment: 206.1 Performed By: #### L 500.4050, L503.6005, L300.8000, L100.0100, L501.5425 #### [facility] [address] [place], [address] Hematocrit (Bld) [Volume fraction] 41.3 % Normal 40-54 [facility] Comment on above: Order Comment: 206.1 Performed By: #### L 500.4050, L503.6005, L300.8000, L100.0100, L501.5425 #### [facility] [address] [place], [address] Hemoglobin (Bld) [Mass/Vol] 13.2 g/dL Normal 13.0-16.5 [facility] Comment on above: Order Comment: .1 Performed By: #### L 500.4050, L503.6005, L300.8000, L100.0100, L501.5425 #### [facility] [address] [place], [address] IG% 0.600 Normal 0.0-0.9 [facility] Comment on above: Order Comment: 206.1 Result Comment: IG% - Immature Granulocytes (promyelocytes, myelocytes and metamyelocytes) > 1% indicates that a LEFT SHIFT is Present. Performed By: #### L 500.4050, L503.6005, L300.8000, L100.0100, L501.5425 #### [facility] [address] [place], [address] Lymphocytes/100 WBC (Bld) 17.4 % Low 19-41 [facility] Comment on above: Order Comment: 206.1 Performed By: #### L 500.4050, L503.6005, L300.8000, L100.0100, L501.5425 #### [facility] [address] [place], [address] MCH (RBC) [Entitic mass] 29.9 pg Normal 27.0-32.0 [facility] Comment on above: Order Comment: 206.1 Performed By: #### L 500.4050, L503.6005, L300.8000, L100.0100, L501.5425 #### [facility] [address] [place], [address] MCHC (RBC) [Mass/Vol] 32.0 g/dL Normal 32-[address] [facility] Comment on above: Order Comment: 206.1 Performed By: #### L 500.4050, L503.6005, L300.8000, L100.0100, L501.5425 #### [facility] [address] [place], [address] MCV (RBC) [Entitic vol] 93.4 fL Normal 80-94 [facility] Comment on above: Order Comment: .1 Performed By: #### L 500.4050, L503.6005, L300.8000, L100.0100, L501.5425 #### [facility] [address] [place], [address] Monocytes/100 WBC (Bld) 8.1 % Normal 0-10 [facility] Comment on above: Order Comment: 206.1 Performed By: #### L 500.4050, L503.6005, L300.8000, L100.0100, L501.5425 #### [facility] [address] [place], [address] Neutrophils/100 WBC (Bld) 73.7 % High 47-70 [facility] Comment on above: Order Comment: 206.1 Performed By: #### L 500.4050, L503.6005, L300.8000, L100.0100, L501.5425 #### [facility] [address] [place], [address] Nucleated RBC (Bld) [#/Vol] 0 10*3/uL Normal 0-5 [facility] Comment on above: Order Comment: 206.1 Performed By: #### L 500.4050, L503.6005, L300.8000, L100.0100, L501.5425 #### [facility] [address] [place], [address] Platelet mean volume (Bld) [Entitic vol] 10.7 fL Normal 6.2-12.0 [facility] Comment on above: Order Comment: .1 Performed By: #### L 500.4050, L503.6005, L300.8000, L100.0100, L501.5425 #### [facility] [address] [place], [address] Platelets (Bld) [#/Vol] 502 10*3/uL High 150-450 [facility] Comment on above: Order Comment: . Performed By: #### L 500.4050, L503.6005, L300.8000, L100.0100, L501.5425 #### [facility] [address] [place], [address] RBC (Bld) [#/Vol] 4.42 10*6/uL Low 4.6-6.2 [facility] Comment on above: Order Comment: . Performed By: #### L 500.4050, L503.6005, L300.8000, L100.0100, L501.5425 #### [facility] [address] [place], [address] RDW SD 44.1 fl High 35.1-43.9 [facility] Comment on above: Order Comment: .1 Performed By: #### L 500.4050, L503.6005, L300.8000, L100.0100, L501.5425 #### [facility] [address] [place], [address] WBC (Bld) [#/Vol] 10.3 10*3/uL Normal 4.4-11.0 [facility] Comment on above: Order Comment: 206.1 Performed By: #### L 500.4050, L503.6005, L300.8000, L100.0100, L501.5425 #### [facility] [address] [place], [address] Carbon dioxide measurementOr dered By: Jigna Brantley on 07-12-2024 CO2 [Moles/Vol] 32.0 mmol/L 21.0-32.0 [facility] Chloride measurementOrdered By: Jigna Brantley on 07-12-2024 Chloride [Moles/Vol] 104 mmol/L 98-107 [facility] Eosinophil percentageOrdered By: Jigna Brantley on 07-12-2024 Eosinophils/100 WBC (Bld) 0.0 % 0-5 [facility] Erythrocyte distribution wid th (RBC) [Ratio]Ordered By: Jigna Brantley on 07-12-2024 Erythrocyte distribution width (RBC) [Entitic vol] 44.1 fL High 35.1-43.9 [facility] Erythrocyte distribution wid th ratioOrdered By: Jignabailey Brantley on 07-12-2024 Erythrocyte distribution width (RBC) [Ratio] 12.8 % 11.6-14.6 [facility] Erythrocyte distribution wid th standard deviationOrdered By: Jignabailey Brantley on 07-12-2024 Erythrocyte distribution width (RBC) [Ratio] 44.1 fl High 35.1-43.9 [facility] Estimated glomerular filtrat ion rate (GFR) AmericanOrdered By: Jigna Brantley on 07-12-2024 Estimated GFR (MDRD) Amer 78 mL/min >60 [facility] Comment on above: GFR Calc Glomerular filtration rate ( GFR) estimationOrdered By: Jigna Brantley on 07-12-2024 Estimated GFR (MDRD) Non-Af Amer 65 mL/min >60 [facility] Comment on above: Non- GFR Calc GFR/1.73 sq M.predicted among non-blacks MDRD (S/P/Bld) [Vol rate/Area] 65 mL/min/{1.73_m2} >60 [facility] Comment on above: Non- GFR Calc Glucose measurementOrdered B y: Jigna Brantley on 07-12-2024 Glucose [Mass/Vol] 104 mg/dL 74-106 [facility] Comment on above: Fasting Glucose resu lt from 100 to 125 mg/dL suggests IMPAIRED HOMEOSTASIS per A.D.A. criteria. Hematocrit Auto (Bld) [Volum e fraction]Ordered By: Jigna Brantley on 07-12-2024 Hematocrit (Bld) [Volume fraction] 41.3 % 40-54 [facility] Hemoglobin A1con 07-12-2024 HbA1c (Bld) [Mass fraction] 6.2 % High 3.8-5.6 [facility] Comment on above: Order Comment: 1 Y Result Comment: Norm al < 5.7 % Prediabetic 5.7 - 6.4 % Diabetic >or= 6.5 % Please note range changes. Performed By: #### L 500.4050, L503.6005, L300.8000, L100.0100, L501.5425 #### [facility] [address] [place], [place], [id number] Hemoglobin A1c percentageOrd ered By: Jigna Brantley on 07-12-2024 HbA1c (Bld) [Mass fraction] 6.2 % High 3.8-5.6 [facility] Comment on above: Normal < 5.7 % Predi abetic 5.7 - 6.4 % Diabetic >or= 6.5 % Please note range changes. Hemoglobin measurementOrdere d By: Jigna Brantley on 07-12-2024 Hemoglobin (Bld) [Mass/Vol] 13.2 g/dL 13.0-16.5 [facility] Immature granulocytes/100 WB C Auto (Bld)Ordered By: Jigna Brantley on 07-12-2024 Immature granulocytes/100 WBC (Bld) 0.600 % 0.0-0.9 [facility] Comment on above: IG% - Immature Granu locytes (promyelocytes, myelocytes and metamyelocytes) > 1% indicates that a LEFT SHIFT is Present. Lymphocytes Auto (Unsp spec) [#/Vol]Ordered By: Jigna Brantley on 07-12-2024 Lymphocytes (Bld) [#/Vol] 1.79 10*3/uL 0.83-4.51 [facility] Lymphocytes/100 WBC Auto (Un sp spec)Ordered By: Jigna Brantley on 07-12-2024 Lymphocytes/100 WBC (Bld) 17.4 % Low 19-41 [facility] MCV (mean corpuscular volume ) determinationOrdered By: Jigna Brantley on 07-12-2024 MCV (RBC) [Entitic vol] 93.4 fL 80-94 [facility] Magnesiumon 07-12-2024 Magnesium [Mass/Vol] 2.7 mg/dL High 1.6-2.6 [facility] Comment on above: Order Comment: 1 Y Performed By: #### L 500.4050, L503.6005, L300.8000, L100.0100, L501.5425 #### [facility] [place], [address] Magnesium measurementOrdered By: Jigna Brantley on 07-12-2024 Magnesium [Mass/Vol] 2.7 mg/dL High 1.6-2.6 [facility] Mean corpuscular hemoglobin (MCH) determinationOrdered By: Jigna Brantley on 07-12-2024 MCH (RBC) [Entitic mass] 29.9 pg 27.0-32.0 [facility] Mean corpuscular hemoglobin concentration (MCHC) determinationOrdered By: Jigna Brantley on 07-12-2024 MCHC (RBC) [Mass/Vol] 32.0 g/dL 32-[address] [facility] Mean platelet volume determi nationOrdered By: Jigna Brantley on 07-12-2024 Platelet mean volume (Bld) [Entitic vol] 10.7 fL 6.2-12.0 [facility] Monocyte percentageOrdered B y: Jigna Brantley on 07-12-2024 Monocytes/100 WBC (Bld) 8.1 % 0-10 [facility] Neutrophil percentageOrdered By: Jigna Brantley on 07-12-2024 Neutrophils/100 WBC (Bld) 73.7 % High 47-70 [facility] Nucleated red blood cell per centageOrdered By: Jigna Brantley on 07-12-2024 Nucleated RBC/100 WBC (Bld) [Ratio] 0 % 0-5 [facility] Platelet countOrdered By: Fabricio Brantley on 07-12-2024 Platelets (Bld) [#/Vol] 502 10*3/uL High 150-450 [facility] Potassium measurementOrdered By: Jigna Brantley on 07-12-2024 Potassium [Moles/Vol] 3.8 mmol/L 3.5-5.[address] [facility] RBC Auto (Bld) [#/Vol]Ordere d By: Jigna Brantley on 07-12-2024 RBC (Bld) [#/Vol] 4.42 10*6/uL Low 4.6-6.2 [facility] Serum anion gap measurementO rdered By: Jigna Brantley on 07-12-2024 Anion gap [Moles/Vol] 5 mmol/L 5-[address] [facility] Serum or plasma calcium rosalina urement (mass/volume)Ordered By: Jigna Brantley on 07-12-2024 Calcium [Mass/Vol] 9.6 mg/dL 8.5-10.1 [facility] Serum or plasma creatinine m easurement (mass/volume)Ordered By: Jigna Brantley on 07-12-2024 Creatinine [Mass/Vol] 1.19 mg/dL 0.70-1.[address] [facility] Comment on above: The validity of the calculated GFR & GFRAA in patients over 70 years has not been determined. Clinical correlation is essential. Serum or plasma thyroid stim ulating hormone (TSH) measurement (units/volume)Ordered By: Jigna Brantley on 07-12-2024 TSH Qn 2.960 uIU/mL 0.358-3.740 [facility] Serum or plasma urea nitroge n measurement (mass/volume)Ordered By: Jigna Brantley on 07-12-2024 Urea nitrogen [Mass/Vol] 25 mg/dL High 7-18 [facility] Sodium levelOrdered By: Enoch Brantley on 07-12-2024 Sodium [Moles/Vol] 141 mmol/L 136-145 [facility] TSH QnOrdered By: Jigna jefferson on 07-12-2024 Thyroid Stimulating Hormone (TSH) 2.960 uIU/mL 0.358-3.740 [facility] Thyroid Stim Hormone (TSH)on 07-12-2024 TSH 2.960 uIU/mL Normal 0.358-3.740 [facility] Comment on above: Order Comment: 1 Y Performed By: #### L 500.4050, L503.6005, L300.8000, L100.0100, L501.5425 #### [facility] [address] [facility] [place], [place], [id number] Vitamin B12on 07-12-2024 Cobalamin (Vitamin B12) [Mass/Vol] 273 pg/mL Normal 211-911 [facility] Comment on above: Order Comment: 1 Y Performed By: #### L 500.4050, L503.6005, L300.8000, L100.0100, L501.5425 #### [facility] [address] [place], [place], [address] Vitamin B12 measurementOrder ed By: Jigna Brantley on 07-12-2024 Cobalamin (Vitamin B12) [Mass/Vol] 273 pg/mL -91 [facility] Vitamin D,25 Hydroxyon 07-12 Vitamin D 25-OH 6.3 ng/mL Normal [facility] Comment on above: Order Comment: 1 Y Result Comment: Divine min D 25(OH) Status Range Deficiency <20 ng/mL (50nmol/L) Insufficiency 20 - 30 ng/mL (50 - 75 nmol/L) Sufficiency 30 - 100 ng/mL (75 - 250 nmol/L) Toxicity >100 ng/mL (>250 nmol/L) Performed By: #### L 500.4050, L503.6005, L300.8000, L100.0100, L501.5425 #### [facility] [address] [place], [address] White blood cell (WBC) count Ordered By: Jigna Brantley on 07-12-2024 WBC (Bld) [#/Vol] 10.3 10*3/uL 4.4-11.0 [facility] Bedside Glucoseon 07-11-2024 FINGERSTICK GLU 138 mg/dL High [address] [place] [address] Comment on above: Result Comment: KARUNA GEMENT OF PATIENT CARE PER NURSING PROTOCOL Performed By: #### L 500.4050, L503.6005, L300.8000, L100.0100, L501.5425 #### [facility] [address] [place], [address] FINGERSTICK GLU 185 mg/dL High [address] [place] [address] Comment on above: Result Comment: KARUNA GEMENT OF PATIENT CARE PER NURSING PROTOCOL Performed By: #### L 500.4050, L503.6005, L300.8000, L100.0100, L501.5425 #### [facility] [address] [place], [address] FINGERSTICK GLU 105 mg/dL Normal [address] [place] [address] Comment on above: Result Comment: KARUNA GEMENT OF PATIENT CARE PER NURSING PROTOCOL Performed By: #### L 500.4050, L503.6005, L300.8000, L100.0100, L501.5425 #### [facility] [address] [place], [address] [facility]dered By: Yann Ascencio on 07-11-2024 Bedside Glucose ([facility] Panel) 138 mg/dL High [address] [place] [address] Comment on above: MANAGEMENT OF PATIEN T CARE PER NURSING PROTOCOL Glucose [Mass/Vol] 138 mg/dL High [facility]106 [facility] Comment on above: MANAGEMENT OF PATIEN T CARE PER NURSING PROTOCOL Absolute lymphocyte countOrd ered By: Yann Ascencio on 07-10-2024 Lymphocytes Auto (Unsp spec) [#/Vol] 0.60 10*3/uL Low 0.83-4.51 [facility] Absolute neutrophil countOrd ered By: Yann Nickkatrinawily on 07-10-2024 Neutrophils (Bld) [#/Vol] 7.5 10*3/uL 2.0-7.7 [facility] Automated lymphocyte count a s percentage of total leukocytesOrdered By: Yann Ascencio on 07-10-2024 Lymphocytes/100 WBC Auto (Unsp spec) 6.9 % Low 19-41 [facility] Basic Metabolic Profile (BMP )on 07-10-2024 BUN/CRE 17.5 RATIO Normal 10-20 [facility] Comment on above: Performed By: #### L 500.4050, L503.6005, L300.8000, L100.0100, L501.5425 #### [facility] [address] [place], [address] CA,Total 9.9 mg/dL Normal 8.5-10.1 [facility] Comment on above: Performed By: #### L 500.4050, L503.6005, L300.8000, L100.0100, L501.5425 #### [facility] [address] [place], [address] Chloride [Moles/Vol] 105 mmol/L Normal 98-107 [facility] Comment on above: Performed By: #### L 500.4050, L503.6005, L300.8000, L100.0100, L501.5425 #### [facility] [address] [place], [address] CO2 [Moles/Vol] 25.0 mmol/L Normal 21.0-32.0 [facility] Comment on above: Performed By: #### L 500.4050, L503.6005, L300.8000, L100.0100, L501.5425 #### [facility] [address] [place], [address] Creatinine [Mass/Vol] 1.03 mg/dL Normal 0.70-1.[address] [facility] Comment on above: Result Comment: The validity of the calculated GFR GFRAA in patients over 70 years has not been determined. Clinical correlation is essential. Performed By: #### L 500.4050, L503.6005, L300.8000, L100.0100, L501.5425 #### [facility] [address] [place], [address] ECRCL 84.26 ml/min Normal [facility] Comment on above: Performed By: #### L 500.4050, L503.6005, L300.8000, L100.0100, L501.5425 #### [facility] [address] [place], [address] EST GFR - AA 93 mL/min Normal >60 [facility] Comment on above: Result Comment: Afri can [place] GFR Calc Performed By: #### L 500.4050, L503.6005, L300.8000, L100.0100, L501.5425 #### [facility] [address] [place], [address] GAP 8 Normal 5-15 [facility] Comment on above: Performed By: #### L 500.4050, L503.6005, L300.8000, L100.0100, L501.5425 #### [facility] [address] [place], [address] GFR/1.73 sq M.predicted among non-blacks MDRD (S/P/Bld) [Vol rate/Area] 76 mL/min/{1.73_m2} Normal >60 [facility] Comment on above: Result Comment: Non- GFR Calc Performed By: #### L 500.4050, L503.6005, L300.8000, L100.0100, L501.5425 #### [facility] [address] [place], [address] Glucose [Mass/Vol] 142 mg/dL High 74-106 [facility] Comment on above: Result Comment: Fast ing Glucose result greater than or equal to 126 mg/dL suggests DIABETES MELLITUS per A.D.A. criteria. Performed By: #### L 500.4050, L503.6005, L300.8000, L100.0100, L501.5425 #### [facility] [address] [place], [address] Potassium [Moles/Vol] 3.5 mmol/L Normal 3.5-5.[address] [facility] Comment on above: Performed By: #### L 500.4050, L503.6005, L300.8000, L100.0100, L501.5425 #### [facility] [address] [place], [address] Sodium [Moles/Vol] 138 mmol/L Normal 136-145 [facility] Comment on above: Performed By: #### L 500.4050, L503.6005, L300.8000, L100.0100, L501.5425 #### [facility] [address] [place], [address] Urea nitrogen [Mass/Vol] 18 mg/dL Normal 7-18 [facility] Comment on above: Performed By: #### L 500.4050, L503.6005, L300.8000, L100.0100, L501.5425 #### [facility] [address] [place], [address] Basophil percentageOrdered B y: Yann Ascencio on 07-10-2024 Basophils/100 WBC (Bld) 0.1 % 0-1 [facility] Bedside Glucoseon 07-10-2024 FINGERSTICK GLU 148 mg/dL High 74-106 [facility] Comment on above: Result Comment: KARUNA FELIX OF PATIENT CARE PER NURSING PROTOCOL Performed By: #### L 500.4050, L503.6005, L300.8000, L100.0100, L501.5425 #### [facility] [address] [place], [address] FINGERSTICK GLU 111 mg/dL High 74-106 [facility] Comment on above: Result Comment: KARUNA GEMENT OF PATIENT CARE PER NURSING PROTOCOL Performed By: #### L 500.4050, L503.6005, L300.8000, L100.0100, L501.5425 #### [facility] [address] [place], [address] FINGERSTICK GLU 147 mg/dL High 74-106 [facility] Comment on above: Result Comment: KARUNA GEMENT OF PATIENT CARE PER NURSING PROTOCOL Performed By: #### L 500.4050, L503.6005, L300.8000, L100.0100, L501.5425 #### [facility] [address] [place], [address] FINGERSTICK GLU 136 mg/dL High 74-106 [facility] Comment on above: Result Comment: KARUNA GEMENT OF PATIENT CARE PER NURSING PROTOCOL Performed By: #### L 501.080 #### [facility] [address] [place], [address] Blood urea nitrogen (BUN)/cr eatinine ratioOrdered By: Yann Ascencio on 07-10-2024 Urea nitrogen/Creatinine [Mass ratio] 17.5 mg/mg 10- [facility] CBC W/Diff, Automatedon 06-30 PATH REV Reviewed Normal [facility] Comment on above: Result Comment: Neut rophilic leukocytosis. Clinical correlation necessary. Sreekanth Zhou M.D. 07/10/24 AMENDED REPORT 07/10/24 1444 PATH REV previously reported as: September cherelle Performed By: #### L 500.4050, L503.6005, L300.8000, L100.0100, L501.5425 #### [facility] [address] [place], [address] Absolute Lymph 0.60 X10 3/uL Low 0.83-4.51 [facility] Comment on above: Performed By: #### L 500.4050, L503.6005, L300.8000, L100.0100, L501.5425 #### [facility] [address] [place], [address] Absolute Neut 7.5 X10 3/uL Normal 2.0-7.7 [facility] Comment on above: Performed By: #### L 500.4050, L503.6005, L300.8000, L100.0100, L501.5425 #### [facility] [address] [place], [address] Basophils/100 WBC (Bld) 0.1 % Normal 0-1 [facility] Comment on above: Performed By: #### L 500.4050, L503.6005, L300.8000, L100.0100, L501.5425 #### [facility] [address] [place], [address] Eosinophils/100 WBC (Bld) 0.0 % Normal 0-5 [facility] Comment on above: Performed By: #### L 500.4050, L503.6005, L300.8000, L100.0100, L501.5425 #### [facility] [address] [place], [address] Erythrocyte distribution width (RBC) [Ratio] 12.9 % Normal 11.6-14.6 [facility] Comment on above: Performed By: #### L 500.4050, L503.6005, L300.8000, L100.0100, L501.5425 #### [facility] [address] [place], [address] Hematocrit (Bld) [Volume fraction] 38.3 % Low 40-54 [facility] Comment on above: Performed By: #### L 500.4050, L503.6005, L300.8000, L100.0100, L501.5425 #### [facility] [address] [place], [address] Hemoglobin (Bld) [Mass/Vol] 12.2 g/dL Low 13.0-16.5 [facility] Comment on above: Performed By: #### L 500.4050, L503.6005, L300.8000, L100.0100, L501.5425 #### [facility] [address] [place], [address] IG% 0.500 Normal 0.0-0.9 [facility] Comment on above: Result Comment: IG% - Immature Granulocytes (promyelocytes, myelocytes and metamyelocytes) > 1% indicates that a LEFT SHIFT is Present. Performed By: #### L 500.4050, L503.6005, L300.8000, L100.0100, L501.5425 #### [facility] [address] [place], [address] Lymphocytes/100 WBC (Bld) 6.9 % Low 19-41 [facility] Comment on above: Performed By: #### L 500.4050, L503.6005, L300.8000, L100.0100, L501.5425 #### [facility] [address] [place], [address] MCH (RBC) [Entitic mass] 30.0 pg Normal 27.0-32.0 [facility] Comment on above: Performed By: #### L 500.4050, L503.6005, L300.8000, L100.0100, L501.5425 #### [facility] [address] [place], [address] MCHC (RBC) [Mass/Vol] 31.9 g/dL Low 32-[address] [facility] Comment on above: Performed By: #### L 500.4050, L503.6005, L300.8000, L100.0100, L501.5425 #### [facility] [address] [place], [address] MCV (RBC) [Entitic vol] 94.3 fL High 80-94 [facility] Comment on above: Performed By: #### L 500.4050, L503.6005, L300.8000, L100.0100, L501.5425 #### [facility] [address] [place], [address] Monocytes/100 WBC (Bld) 6.6 % Normal 0-10 [facility] Comment on above: Performed By: #### L 500.4050, L503.6005, L300.8000, L100.0100, L501.5425 #### [facility] [address] [place], [address] Neutrophils/100 WBC (Bld) 85.9 % High 47-70 [facility] Comment on above: Performed By: #### L 500.4050, L503.6005, L300.8000, L100.0100, L501.5425 #### [facility] [address] [place], [address] Nucleated RBC (Bld) [#/Vol] 0 10*3/uL Normal 0-5 [facility] Comment on above: Performed By: #### L 500.4050, L503.6005, L300.8000, L100.0100, L501.5425 #### [facility] [address] [place], [address] Platelet mean volume (Bld) [Entitic vol] 10.9 fL Normal 6.2-12.0 [facility] Comment on above: Performed By: #### L 500.4050, L503.6005, L300.8000, L100.0100, L501.5425 #### [facility] [address] [place], [address] Platelets (Bld) [#/Vol] 300 10*3/uL Normal 150-450 [facility] Comment on above: Performed By: #### L 500.4050, L503.6005, L300.8000, L100.0100, L501.5425 #### [facility] [address] [place], [address] RBC (Bld) [#/Vol] 4.06 10*6/uL Low 4.6-6.2 [facility] Comment on above: Performed By: #### L 500.4050, L503.6005, L300.8000, L100.0100, L501.5425 #### [facility] [address] [place], [address] RDW SD 44.8 fl High 35.1-43.9 [facility] Comment on above: Performed By: #### L 500.4050, L503.6005, L300.8000, L100.0100, L501.5425 #### [facility] [address] [place], [address] WBC (Bld) [#/Vol] 8.7 10*3/uL Normal 4.4-11.0 [facility] Comment on above: Performed By: #### L 500.4050, L503.6005, L300.8000, L100.0100, L501.5425 #### [facility] [address] [place], [address] Carbon dioxide measurementOr dered By: Yann Ascencio on 07-10-2024 CO2 [Moles/Vol] 25.0 mmol/L 21.0-32.0 [facility] Chloride measurementOrdered By: Yann Ascencio on 07-10-2024 Chloride [Moles/Vol] 105 mmol/L 98-107 [facility] Eosinophil percentageOrdered By: Yann Ascencio on 07-10-2024 Eosinophils/100 WBC (Bld) 0.0 % 0-5 [facility] Erythrocyte distribution wid th (RBC) [Ratio]Ordered By: Yann Ascencio on 07-10-2024 Erythrocyte distribution width (RBC) [Entitic vol] 44.8 fL High 35.1-43.9 [facility] Erythrocyte distribution wid th ratioOrdered By: Yann Ascencio on 07-10-2024 Erythrocyte distribution width (RBC) [Ratio] 12.9 % 11.6-14.6 [facility] Erythrocyte distribution wid th standard deviationOrdered By: Yann Ascencio on 07-10-2024 Erythrocyte distribution width (RBC) [Ratio] 44.8 fl High 35.1-43.9 [facility] Estimated glomerular filtrat ion rate (GFR) AmericanOrdered By: Yann Ascencio on 07-10-2024 Estimated GFR (MDRD) Amer 93 mL/min >60 [facility] Comment on above: GFR Calc Estimation of creatinine karlee aranceOrdered By: Yann Ascencio on 07-10-2024 Estimated Creatinine Clearance Calc 84.26 ml/min [facility] Glomerular filtration rate ( GFR) estimationOrdered By: Yann Ascencio on 07-10-2024 Estimated GFR (MDRD) Non-Af Amer 76 mL/min >60 [facility] Comment on above: Non- GFR Calc GFR/1.73 sq M.predicted among non-blacks MDRD (S/P/Bld) [Vol rate/Area] 76 mL/min/{1.73_m2} >60 [facility] Comment on above: Non- GFR Calc Glucose measurementOrdered B y: Yann Ascencio on 07-10-2024 Glucose [Mass/Vol] 142 mg/dL High 74-106 [facility] Comment on above: Fasting Glucose resu lt greater than or equal to 126 mg/dL suggests DIABETES MELLITUS per A.D.A. criteria. Hematocrit Auto (Bld) [Volum e fraction]Ordered By: Yann Ascencio on 07-10-2024 Hematocrit (Bld) [Volume fraction] 38.3 % Low 40-54 [facility] Hemoglobin A1con 07-10-2024 HbA1c (Bld) [Mass fraction] 6.0 % High 3.8-5.6 [facility] Comment on above: Result Comment: Norm al < 5.7 % Prediabetic 5.7 - 6.4 % Diabetic >or= 6.5 % Please note range changes. Performed By: #### L 500.4050, L503.6005, L300.8000, L100.0100, L501.5425 #### [facility] [place], [address] Hemoglobin A1c percentageOrd ered By: Yann Ascencio on 07-10-2024 HbA1c (Bld) [Mass fraction] 6.0 % High 3.8-5.6 [facility] Comment on above: Normal < 5.7 % Predi abetic 5.7 - 6.4 % Diabetic >or= 6.5 % Please note range changes. Hemoglobin measurementOrdere d By: Yann Ascencio on 07-10-2024 Hemoglobin (Bld) [Mass/Vol] 12.2 g/dL Low 13.0-16.5 [facility] Immature granulocytes/100 WB C Auto (Bld)Ordered By: Yann Ascencio on 07-10-2024 Immature granulocytes/100 WBC (Bld) 0.500 % 0.0-0.9 [facility] Comment on above: IG% - Immature Granu locytes (promyelocytes, myelocytes and metamyelocytes) > 1% indicates that a LEFT SHIFT is Present. Lymphocytes Auto (Unsp spec) [#/Vol]Ordered By: Yann Ascencio on 07-10-2024 Lymphocytes (Bld) [#/Vol] 0.60 10*3/uL Low 0.83-4.51 [facility] Lymphocytes/100 WBC Auto (Un sp spec)Ordered By: Yann Ascencio on 07-10-2024 Lymphocytes/100 WBC (Bld) 6.9 % Low 19-41 [facility] MCV (mean corpuscular volume ) determinationOrdered By: Yann Ascencio on 07-10-2024 MCV (RBC) [Entitic vol] 94.3 fL High 80-94 [facility] Mean corpuscular hemoglobin (MCH) determinationOrdered By: Yann Ascencio on 07-10-2024 MCH (RBC) [Entitic mass] 30.0 pg 27.0-32.0 [facility] Mean corpuscular hemoglobin concentration (MCHC) determinationOrdered By: Yann Ascencio on 07-10-2024 MCHC (RBC) [Mass/Vol] 31.9 g/dL Low 32-[address] [facility] Mean platelet volume determi nationOrdered By: Yann Ascencio on 07-10-2024 Platelet mean volume (Bld) [Entitic vol] 10.9 fL 6.2-12.0 [facility] Monocyte percentageOrdered B y: Yann Ascencio on 07-10-2024 Monocytes/100 WBC (Bld) 6.6 % 0-10 [facility] Neutrophil percentageOrdered By: Yann Ascencio on 07-10-2024 Neutrophils/100 WBC (Bld) 85.9 % High 47-70 [facility] Nucleated red blood cell per centageOrdered By: Yann Ascencio on 07-10-2024 Nucleated RBC/100 WBC (Bld) [Ratio] 0 % 0-5 [facility] Platelet countOrdered By: Damien Ascencio on 07-10-2024 Platelets (Bld) [#/Vol] 300 10*3/uL 150-450 [facility] Potassium measurementOrdered By: Yann Ascencio on 07-10-2024 Potassium [Moles/Vol] 3.5 mmol/L 3.5-5.[address] [facility] RBC Auto (Bld) [#/Vol]Ordere d By: Yann Ascencio on 07-10-2024 RBC (Bld) [#/Vol] 4.06 10*6/uL Low 4.6-6.2 [facility] Serum anion gap measurementO rdered By: Yann Ascencio on 07-10-2024 Anion gap [Moles/Vol] 8 mmol/L 5-[address] [facility] Serum or plasma calcium rosalina urement (mass/volume)Ordered By: Yann Ascencio on 07-10-2024 Calcium [Mass/Vol] 9.9 mg/dL 8.5-10.1 [facility] Serum or plasma creatinine m easurement (mass/volume)Ordered By: Yann Ascencio on 07-10-2024 Creatinine [Mass/Vol] 1.03 mg/dL 0.70-1.[address] [facility] Comment on above: The validity of the calculated GFR & GFRAA in patients over 70 years has not been determined. Clinical correlation is essential. Serum or plasma urea nitroge n measurement (mass/volume)Ordered By: Yann Ascencio on 07-10-2024 Urea nitrogen [Mass/Vol] 18 mg/dL 7-18 [facility] Sodium levelOrdered By: Yann Ascencio on 07-10-2024 Sodium [Moles/Vol] 138 mmol/L 136-145 [facility] White blood cell (WBC) count Ordered By: Yann Ascencio on 07-10-2024 WBC (Bld) [#/Vol] 8.7 10*3/uL 4.4-11.0 [facility] 12 Lead EKGon 07-09-2024 12 Lead EKG [facility] Cardiovascular Services [address] [place] [address] 12 Lead EKG 07/09/24 0825 MR#: [id number] Acct: [id number] Name: REINA SULLIVAN Rep #: [id number] : 1955 69 From: Олег Andrade MD Attending Dr: Dr. Yann Ascencio, DO Status: ADM IN Ordering Dr: Priscilla Reynaag MD Date: 07/09/24 Location: U Sex: M C Admitted: 07/09/24 Test Reason [...] abnormality Abnormal ECG Confirmed by Олег Andrade ([id number]), sports editor MARLENE CAMP ([id number]) on 07/10/2024 10:05:21 AM Referred By: MELY Confirmed By: Олег Andrade 07/10/24 1005 Date Олег Andrade MD CC: Dr. Priscilla Reynaga MD; Dr. Yann Ascencio DO; Dr. Aric Zapien MD Signed Normal [facility] Albumin to globulin ratioOrd ered By: Priscilla Reynaga on 07-09-2024 Albumin/Globulin [Mass ratio] 0.7 {ratio} Low 0.9-2.4 [facility] Ankle min 3 Viewson 07-09-19 25 Ankle min 3 Views [facility] Imaging Services [address] [place], [place] [id number] Ankle min 3 Views MR#: [id number] Acct: [id number] Name: REINA SULLIVAN Rep #: [id number] : 1955 M 69 From: Roscoe emmanuel MD PCP: Dr. Aric Zapien MD Status: REG ER Study: Ankle min 3 Views Date of Exam: 07/09/24 Exam# [id number] Ordering Dr: Priscilla Reynaga MD EXAM: ANKLE MIN 3 VIEWS CLINICAL HISTORY: Pain following injury. COMPARISON: None. TECHNIQUE: Three views were obtained. FINDINGS: Diffuse soft tissue swelling. No fracture is seen. Small plantar spur. RAD/Ankle min 3 Views IMPRESSION: Diffuse soft tissue swelling. Reading Location: [place] [address] CC: Dr. Priscilla Reynaga MD; Dr. Aric Zapien MD Bellperson: Signed Normal [facility] Bedside Glucoseon 07-09-2024 FINGERSTICK GLU 132 mg/dL High 74-106 [facility] Comment on above: Result Comment: KARUNA GEMENT OF PATIENT CARE PER NURSING PROTOCOL Performed By: #### L 501.080 #### [facility] [address] [place], [place], [address] FINGERSTICK GLU 152 mg/dL High 74-106 [facility] Comment on above: Result Comment: KARUNA GEMENT OF PATIENT CARE PER NURSING PROTOCOL Performed By: #### L 500.4050, L503.6005, L300.8000, L100.0100, L501.5425 #### [facility] [address] [place], [address] FINGERSTICK GLU 109 mg/dL High 74-106 [facility] Comment on above: Result Comment: KARUNA FELIX OF PATIENT CARE PER NURSING PROTOCOL Performed By: #### L 500.4050, L503.6005, L300.8000, L100.0100, L501.5425 #### [facility] [address] [place], [address] Bilirubin Test strip Ql (U)O rdered By: Priscilla Reynaga on 07-09-2024 Bilirubin Ql (U) 1 mg/dL High Negative [facility] Comment on above: COLOR OF URINE MAY A FFECT DIPSTICK RESULTS. Bilirubin, totalOrdered By: Priscilla Reynaga on 07-09-2024 Bilirubin [Mass/Vol] 0.80 mg/dL 0.20-1.00 [facility] Comment on above: For patients on eltr ombopag therapy, use of Dimension [place] TBIL is not recommended. Chest 1 View (Portable)on Chest 1 View (Portable) [facility] Imaging Services [address] [place] [address] Chest 1 View (Portable) MR#: [id number] Acct: [id number] Name: REINA SULLIVAN Rep #: [id number] : 1955 M 69 From: Jeffy Belle PCP: Dr. Aric Zapien MD Status: REG ER Study: Chest 1 View (Portable) Date of Exam: 07/09/24 Exam# [id number] Ordering Dr: Priscilla Reynaga MD PROCEDURE: CHEST [...] acute osseous process is seen. Reading Location: [address] CC: Dr. Priscilla Reynaga MD; Dr. Aric Zapien MD Bellperson: Signed Normal [facility] Comprehensive Metabolic Prof ilon 07-09-2024 Albumin [Mass/Vol] 2.9 g/dL Low 3.2-5.0 [facility] Comment on above: Performed By: #### L 500.4050, L503.6005, L300.8000, L100.0100, L501.5425 #### [facility] [address] [place], [address] Albumin/Globulin [Mass ratio] 0.7 {ratio} Low 0.9-2.4 [facility] Comment on above: Performed By: #### L 500.4050, L503.6005, L300.8000, L100.0100, L501.5425 #### [facility] [address] [place], [address] ALK P 68 U/L Normal 45-117 [facility] Comment on above: Performed By: #### L 500.4050, L503.6005, L300.8000, L100.0100, L501.5425 #### [facility] [address] [place], [address] ALT [Catalytic activity/Vol] 16 U/L Normal 16-61 [facility] Comment on above: Performed By: #### L 500.4050, L503.6005, L300.8000, L100.0100, L501.5425 #### [facility] [address] [place], [address] AST [Catalytic activity/Vol] 11 U/L Low 15-37 [facility] Comment on above: Performed By: #### L 500.4050, L503.6005, L300.8000, L100.0100, L501.5425 #### [facility] [address] [place], [address] Bilirubin [Mass/Vol] 0.80 mg/dL Normal 0.20-1.00 [facility] Comment on above: Result Comment: For patients on eltrombopag therapy, use of Dimension [place] TBIL is not recommended. Performed By: #### L 500.4050, L503.6005, L300.8000, L100.0100, L501.5425 #### [facility] [address] [place], [address] BUN/CRE 14.5 RATIO Normal 10-20 [facility] Comment on above: Performed By: #### L 500.4050, L503.6005, L300.8000, L100.0100, L501.5425 #### [facility] [address] [place], [address] CA,Total 9.3 mg/dL Normal 8.5-10.1 [facility] Comment on above: Performed By: #### L 500.4050, L503.6005, L300.8000, L100.0100, L501.5425 #### [facility] [address] [place], [address] Chloride [Moles/Vol] 104 mmol/L Normal 98-107 [facility] Comment on above: Performed By: #### L 500.4050, L503.6005, L300.8000, L100.0100, L501.5425 #### [facility] [address] [place], [address] CO2 [Moles/Vol] 27.0 mmol/L Normal 21.0-32.0 [facility] Comment on above: Performed By: #### L 500.4050, L503.6005, L300.8000, L100.0100, L501.5425 #### [facility] [address] [place], [address] Creatinine [Mass/Vol] 1.38 mg/dL High 0.70-1.[address] [facility] Comment on above: Result Comment: The validity of the calculated GFR GFRAA in patients over 70 years has not been determined. Clinical correlation is essential. Performed By: #### L 500.4050, L503.6005, L300.8000, L100.0100, L501.5425 #### [facility] [address] [place], [address] ECRCL 66.83 ml/min Normal [facility] Comment on above: Performed By: #### L 500.4050, L503.6005, L300.8000, L100.0100, L501.5425 #### [facility] [address] [place], [address] EST GFR - AA 66 mL/min Normal >60 [facility] Comment on above: Result Comment: Afri can [place] GFR Calc Performed By: #### L 500.4050, L503.6005, L300.8000, L100.0100, L501.5425 #### [facility] [address] [place], [address] GAP 10 Normal 5-15 [facility] Comment on above: Performed By: #### L 500.4050, L503.6005, L300.8000, L100.0100, L501.5425 #### [facility] [address] [place], [address] GFR/1.73 sq M.predicted among non-blacks MDRD (S/P/Bld) [Vol rate/Area] 55 mL/min/{1.73_m2} Low >60 [facility] Comment on above: Result Comment: Non- GFR Calc Performed By: #### L 500.4050, L503.6005, L300.8000, L100.0100, L501.5425 #### [facility] [address] [place], [address] Globulin (S) [Mass/Vol] 4.4 g/dL High 2.2-4.2 [facility] Comment on above: Performed By: #### L 500.4050, L503.6005, L300.8000, L100.0100, L501.5425 #### [facility] [address] [place], [address] Glucose [Mass/Vol] 117 mg/dL High 74-106 [facility] Comment on above: Result Comment: Fast ing Glucose result from 100 to 125 mg/dL suggests IMPAIRED HOMEOSTASIS per A.D.A. criteria. Performed By: #### L 500.4050, L503.6005, L300.8000, L100.0100, L501.5425 #### [facility] [address] [place], [address] Potassium [Moles/Vol] 3.1 mmol/L Low 3.5-5.[address] [facility] Comment on above: Performed By: #### L 500.4050, L503.6005, L300.8000, L100.0100, L501.5425 #### [facility] [address] [place], [address] Sodium [Moles/Vol] 141 mmol/L Normal 136-145 [facility] Comment on above: Performed By: #### L 500.4050, L503.6005, L300.8000, L100.0100, L501.5425 #### [facility] [address] [place], [address] T PROT 7.3 g/dL Normal 6.4-8.2 [facility] Comment on above: Performed By: #### L 500.4050, L503.6005, L300.8000, L100.0100, L501.5425 #### [facility] [address] [place], [address] Urea nitrogen [Mass/Vol] 20 mg/dL High 7-18 [facility] Comment on above: Performed By: #### L 500.4050, L503.6005, L300.8000, L100.0100, L501.5425 #### [facility] [address] [place], [address] D-Dimer Quantitative (DVT/PE )on 07-09-2024 D-DIMER QUANT 1.11 FEU/ug/m Invalid Interpretation Code 0.27-0.49 [facility] Comment on above: Result Comment: D-Di phillip ELEVATED (>0.49): Additional studies and clinical assessments are indicated to conclude diagnosis of: Deep Vein Thrombosis (DVT) or Pulmonary Embolism (PE) CRITICAL VALUE CALLED TO Reddy CHRISTIE 07/09/24 09Aide Gutierrez. RESULTS READ BACK BY . Performed By: #### L 500.4050, L503.6005, L300.8000, L100.0100, L501.5425 #### [facility] [address] [place], [address] D-dimer measurement for deep venous thrombosisOrdered By: Priscilla Reynaga on 07-09-2024 D-Dimer Quantitative (PE/DVT) 1.11 FEU/ug/m High 0.27-0.49 [facility] Comment on above: D-Dimer ELEVATED (>0 .49): Additional studies and clinicalassessments are indicated to conclude diagnosis of:Deep Vein Thrombosis (DVT) or Pulmonary Embolism (PE)CRITICAL VALUE CALLED TO Reddy CHRISTIE07/09/24 09Aide Gutierrez.RESULTS READ BACK BY . Echo Completeon 07-09-2024 [facility] Cardi[facility] Services [address] [place] [address] Echo Complete 07/10/24 0827 MR#: [id number] Acct: [id number] Name: REINA SULLIVAN #: [id number] : 1955 69 From: Estuardo Irby MD Attending Dr: Dr. Yann Ascencio DO Status: ADM IN Ordering Dr: Yann Ascencio DO Date: 07/09/24 Location: [facility] Sex: M C Admitted: 07/09/24 Reason For [...] Physician: Aric Zapien Performed By: Ann-Marie Cao, MARY, RVT 07/10/24 145 Date Estuardo Irby MD CC: Dr. Yann Ascencio DO; Dr. Aric Zapien MD Date Dictated: 07/10/24 0827 Date Transcribed: 07/10/241452 Bellperson: Signed Normal [facility] Emergency Department Summary on 07-09-2024 Emergency Department Summary [facility] Medical Records Department [address] [place] [address] Emergency Department Summary 07/09/24 MR#: [id number] Acct: [id number] Name: REINA SULLIVAN Rep #: [id number] : 1955 69 From: Priscilla Reynaga MD PCP: Dr. Aric Zapien MD Status:REG ER Location: ED HPI History of Present Illness Chief Complaint: Other, [...] lightheadedness or syncope. Prior similar symptoms: Yes PFSH PFSH Medical History Essential hypertension Hx of thyroiditis Type 2 diabetes mellitus TIA (transient ischemic attack) [place] (myocardial infarction) Hyperlipidemia Atrial fibrillation with rapid [...] Rate: tachycard (more content not included)... Normal [facility] Epithelial cells.renal LM.HP F (Urine sed) [#/Area]Ordered By: Priscilla Reynaga on 07-09-2024 Urine Renal Epithelial Cells 0-5 SEEN /hpf 0-5 [facility] Epithelial cells.squamous LM Ql (Urine sed)Ordered By: Priscilla Reynaga on 07-09-2024 Epithelial cells.squamous LM.HPF (Urine sed) [#/Area] 0 /[HPF] 0-5 [facility] Fine Granular Casts LM.LPF ( Urine sed) [#/Area]Ordered By: Priscilla Reynaga on 07-09-2024 Urine Fine Granular Casts 0-5 SEEN /lpf 0-5 [facility] Foot min 3 Viewson 5 Foot min 3 Views [facility] Imaging Services [address] [place], [place] [id number] (570) Foot min 3 Views MR#: [id number] Acct: [id number] Name: REINA SULLIVAN Rep #: [id number] : 1955 M 69 From: Roscoe emmanuel MD PCP: Dr. Aric Zapien MD Status: REG ER Study: Foot min 3 Views Date of Exam: 07/09/24 Exam# [id number] Ordering Dr: Priscilla Reynaga MD EXAM: FOOT MIN 3 VIEWS CLINICAL HISTORY: Pain following injury. COMPARISON: None TECHNIQUE: Three views were obtained. FINDINGS: Diffuse dorsal soft tissue swelling. RAD/Foot min 3 Views IMPRESSION: Diffuse dorsal soft tissue swelling. Reading Location: [facility] CC: Dr. Priscilla Reynaga MD; Dr. Aric Zapien MD Bellperson: Signed Normal [facility] Glucose Ql (U)Ordered By: Dmitry Reynaga on 07-09-2024 Urine Glucose (UA) Normal mg/dl Normal [facility] H AND P Exam - Hospitaliston 07-09-2024 H&P Exam - Hospitalist [facility] Medical Records Department [address] [place] [address] H P Exam - Hospitalist 07/09/24 1039 MR#: [id number] Acct: [id number] Name: REINA SULLIVAN Rep #: [id number] : 1955 69 From: Yann Ascencio DO PCP: Dr. Aric Zapien MD Status:ADM IN Location: [facility] DDM936-5 HPI - General General Date of Service: [...] morning due to the severe ankle pain. [facility] Medical History Essential hypertension Hx of thyroiditis Type 2 diabetes mellitus TIA (transient ischemic attack) [place] (myocardial infarction) Hyperlipidemia Atrial fibrillation with rapid [...] Capillary Re (more content not included)... Normal [facility] Hyaline casts LM.LPF (Urine sed) [#/Area]Ordered By: Priscilla Reynaga on 07-09-2024 Hyaline casts (Urine sed) [#/Area] 5 /[LPF] 0-5 [facility] Hyaline casts LM Ql (Urine sed) 5-10 SEEN /lpf 0-5 [facility] Ketones Test strip Ql (U)Ord ered By: Priscilla Reynaga on 07-09-2024 Ketones Ql (U) 50 mg/dl High Negative [facility] L501.4020on 07-09-2024 TROPONIN-I HS 18 pg/mL Normal 3.0-78.0 [facility] Comment on above: Order Comment: 'TROP ' Serial specimen #1, #2 or #3: 3 Result Comment: Plea se Note: New Test Units and Gender Specific Reference Ranges. For more information see Policy Stat Procedure [place] High Sensitivity Troponin (TNIH) and attachments. Performed By: #### L 500.4050, L503.6005, L300.8000, L100.0100, L501.5425 #### [facility] [address] [place], [address] TROPONIN-I HS 18 pg/mL Normal 3.0-78.0 [facility] Comment on above: Result Comment: Plea se Note: New Test Units and Gender Specific Reference Ranges. For more information see Policy Stat Procedure [place] High Sensitivity Troponin (TNIH) and attachments. Performed By: #### L 500.4050, L503.6005, L300.8000, L100.0100, L501.5425 #### [facility] [address] [place], [address] L501.5425on 07-09-2024 TROPONIN-I HS 15 pg/mL Normal 3.0-78.0 [facility] Comment on above: Order Comment: 1 Y Result Comment: Cristina harris Note: New Test Units and Gender Specific Reference Ranges. For more information see Policy Stat Procedure [place] High Sensitivity Troponin (TNIH) and attachments. Performed By: #### L 500.4050, L503.6005, L300.8000, L100.0100, L501.5425 #### [facility] [address] [place], [address] Laboratory - Chemistry and C hemistry - challengeOrdered By: Priscilla Reynaga on 07-09-2024 AST [Catalytic activity/Vol] 11 U/L Low 15-37 [facility] Lactic Acidon 07-09-2024 Lactate [Moles/Vol] 1.4 mmol/L Normal 0.4-1.9 [facility] Comment on above: Order Comment: Y Performed By: #### L 500.4050, L503.6005, L300.8000, L100.0100, L501.5425 #### [facility] [address] [place], [place], [address] Lactic acid measurementOrder ed By: Priscilla Reynaga on 07-09-2024 Lactate [Moles/Vol] 1.4 mmol/L 0.4-2.0 [facility] Microscopic analysis of urin e for red blood cells (RBC)Ordered By: Priscilla Reynaga on 07-09-2024 Microscopic analysis of urine for red blood cells (RBC) 0-5 SEEN /hpf 0-5 [facility] Urine RBC 0-5 SEEN /hpf 0-5 [facility] Mucus LM Ql (Urine sed)Order ed By: Priscilla Reynaga on 07-09-2024 Mucus Ql (Urine sed) 1+ /hpf [facility] Nitrite Test strip Ql (U)Ord ered By: Priscilla Reynaga on 07-09-2024 Nitrite Ql (U) Negative Negative [facility] Pathologist review Ramses (Unsp spec) [Interp]Ordered By: Priscilla Reynaga on 07-09-2024 Differential Pathologist's Review Reviewed [facility] Comment on above: Previous reported re sult: May foll Edited by: MARCELLE on 07/10/24:1444Neutrophilic leukocytosis.Clinical correlation necessary.Sreekanth Zhou M.D. 07/10/24 AMENDED REPORT 07/10/24 144 PATH REV previously reported as: September cherelle Protein Test strip Ql (U)Ord ered By: Priscilla Reynaga on 07-09-2024 Protein Ql (U) 100 mg/dl High Negative [facility] Review by pathologistOrdered By: Priscilla Reynaga on 07-09-2024 Pathologist review Ramses (Unsp spec) [Interp] Reviewed [facility] Comment on above: Previous reported re sult: September cherelle Edited by: SONDRA on 07/10/24:1444Neutrophilic leukocytosis.Clinical correlation necessary.Sreekanth Zhou M.D. 07/10/24 AMENDED REPORT 07/10/24 144 PATH REV previously reported as: September cherelle Serum globulin measurementOr dered By: Priscilla Reynaga on 07-09-2024 Globulin (S) [Mass/Vol] 4.4 g/dL High 2.2-4.2 [facility] Serum or plasma alanine chatterjee otransferase (ALT) measurementOrdered By: Priscilla Reynaga on 07-09-2024 ALT [Catalytic activity/Vol] 16 U/L 16-61 [facility] Serum or plasma albumin rosalina urement (mass/volume)Ordered By: Priscilla Reynaga on 07-09-2024 Albumin [Mass/Vol] 2.9 g/dL Low 3.2-5.0 [facility] Serum or plasma alkaline elvis sphatase measurementOrdered By: Priscilla Reynaga on 07-09-2024 ALP [Catalytic activity/Vol] 68 U/L 45-117 [facility] Serum or plasma uric acid me asurement (mass/volume)Ordered By: Yann Ascencio on 07-09-2024 Urate [Mass/Vol] 7.5 mg/dL High 3.5-7.2 [facility] Comment on above: The drugs N-Acetylcy steine and Metamizole may falsely depress this assay. Squamous epithelial cells de tection in urine sediment by light microscopyOrdered By: Priscilla Reynaga on 07-09-2024 Epithelial cells.squamous LM Ql (Urine sed) 0 SEEN /hpf 0-5 [facility] Total proteinOrdered By: Taj Reynaga on 07-09-2024 Protein [Mass/Vol] 7.3 g/dL 6.4-8.2 [facility] Troponin IOrdered By: Yann gandara on 07-09-2024 Troponin I 18 pg/mL 3.0-78.0 [facility] Comment on above: Please Note: New Yudith t Units and Gender Specific Reference Ranges. For more information see Policy Stat Procedure [place] High Sensitivity Troponin (TNIH) and attachments. Troponin I High Sensitivity 18 pg/mL 3.0-78.0 [facility] Comment on above: Please Note: New Yudith t Units and Gender Specific Reference Ranges. For more information see Policy Stat Procedure [place] High Sensitivity Troponin (TNIH) and attachments. Uric Acidon 07-09-2024 URIC 7.5 mg/dL High 3.5-7.2 [facility] Comment on above: Result Comment: The drugs N-Acetylcysteine and Metamizole may falsely depress this assay. Performed By: #### L 500.4050, L503.6005, L300.8000, L100.0100, L501.5425 #### [facility] [address] [place], [address] Urinalysis, Completeon 07-09 CAST,WBC 0-5 SEEN Normal None Seen [facility] Comment on above: Order Comment: COLLE CTOR TO SPECIFY Performed By: #### L 500.4050, L503.6005, L300.8000, L100.0100, L501.5425 #### [facility] [address] [place], [address] CAST,FINE GRAN 0-5 SEEN Normal 0-5 [facility] Comment on above: Order Comment: COLLE CTOR TO SPECIFY Performed By: #### L 500.4050, L503.6005, L300.8000, L100.0100, L501.5425 #### [facility] [address] [place], [address] CAST,HYALINE 5-10 SEEN Normal 0-5 [facility] Comment on above: Order Comment: COLLE CTOR TO SPECIFY Performed By: #### L 500.4050, L503.6005, L300.8000, L100.0100, L501.5425 #### [facility] [address] [place], [address] EPI,RENAL 0-5 SEEN Normal 0-5 [facility] Comment on above: Order Comment: COLLE CTOR TO SPECIFY Performed By: #### L 500.4050, L503.6005, L300.8000, L100.0100, L501.5425 #### [facility] [address] [place], [address] Mucus Ql (Urine sed) 1+ /hpf Normal [facility] Comment on above: Order Comment: COLLE CTOR TO SPECIFY Performed By: #### L 500.4050, L503.6005, L300.8000, L100.0100, L501.5425 #### [facility] [address] [place], [address] RBC 0-5 SEEN Normal 0-5 [facility] Comment on above: Order Comment: COLLE CTOR TO SPECIFY Performed By: #### L 500.4050, L503.6005, L300.8000, L100.0100, L501.5425 #### [facility] [address] [place], [address] WBC 0-5 SEEN Normal 0-5 [facility] Comment on above: Order Comment: COLLE CTOR TO SPECIFY Performed By: #### L 500.4050, L503.6005, L300.8000, L100.0100, L501.5425 #### [facility] [address] [place], [address] BACTERIA 0 SEEN Normal None Seen [facility] Comment on above: Order Comment: COLLE CTOR TO SPECIFY Performed By: #### L 500.4050, L503.6005, L300.8000, L100.0100, L501.5425 #### [facility] [address] [place], [address] EPI,SQUAMOUS 0 SEEN Normal 0-5 [facility] Comment on above: Order Comment: COLLE CTOR TO SPECIFY Performed By: #### L 500.4050, L503.6005, L300.8000, L100.0100, L501.5425 #### [facility] [address] [place], [address] Urine blood detectionOrdered By: Priscilla Reynaga on 07-09-2024 Urine Occult Blood 10 /ul High Negative [facility] Urine clarityOrdered By: Taj Reynaga on 07-09-2024 Clarity (U) Clear Clear [facility] Urine color determinationOrd ered By: Priscilla Reynaga on 07-09-2024 Color (U) Yellow Yellow [facility] Urine glucose detectionOrder ed By: Priscilla Reynaga on 07-09-2024 Glucose Ql (U) Normal mg/dl Normal [facility] Urine leukocyte esterase det ection by dipstickOrdered By: Priscilla Reynaga on 07-09-2024 Leukocyte esterase Test strip Ql (U) 25 /ul High Negative [facility] Urine pHOrdered By: Priscilla snider on 07-09-2024 pH (U) 6.0 [pH] 5.0 - 8.0 [facility] Urine sediment bacteria coun t by microscopy (number/high power field)Ordered By: Priscilla Reynaga on 07-09-2024 Bacteria LM.HPF (Urine sed) [#/Area] 0 /[HPF] None Seen [facility] Urine sediment fine granular cast count by microscopy (number/low power field)Ordered By: Priscilla Reynaga on 07-09-2024 Fine Granular Casts LM.LPF (Urine sed) [#/Area] 0-5 SEEN /lpf 0-5 [facility] Urine sediment leukocyte yanira t count by microscopy (number/low power field)Ordered By: Priscilla Reynaga on 07-09-2024 WBC casts LM.LPF (Urine sed) [#/Area] 0-5 SEEN /lpf None Seen [facility] Urine sediment renal epithel ial cell count by microscopy (number/high power field)Ordered By: Priscilla Reynaga on 07-09-2024 Epithelial cells.renal LM.HPF (Urine sed) [#/Area] 0 /[HPF] 0-5 [facility] Urine specific gravity measu rementOrdered By: Priscilla Reynaga on 07-09-2024 Specific gravity (U) [Rel density] 1.020 1.002-1.030 [facility] Urine urobilinogen measureme ntOrdered By: Priscilla Reynaga on 07-09-2024 Urobilinogen Ql (U) 1 mg/dl High Normal [facility] Urobilinogen Ql (U)Ordered B y: Priscilla Reynaga on 07-09-2024 Urobilinogen (U) [Mass/Vol] 1 mg/dL High Normal [facility] Venous Duplex US - Noam Extre mon 07-09-2024 Venous Duplex US - Noam Extrem [facility] Cardiovascular Services [address] [place] [address] Venous Duplex US - Noam Extrem 07/09/24 1014 MR#: [id number] Acct: [id number] Name: REINA SULLIVAN Rep #: [id number] : 1955 69 From: Yann Miller MD Attending Dr: Dr. Yann Ascencio DO Status: ADM IN Ordering Dr: Priscilla Reynaga MD Date: 07/09/24 Location: U Sex: M C Admitted: 07/09/24 Reason For [...] Referring Physician: Aric Zapien Performed By: Damaris Dudley, ELISABET 07/10/24 1556 Date Yann Miller MD CC: Dr. Priscilla Reynaga MD; Dr. Yann Ascencio DO; Dr. Aric Zapien MD Date Dictated: 07/09/24 1014 Date Transcribed: 07/10/24 1556 Bellperson: Signed Normal [facility] WBC casts LM.LPF (Urine sed) [#/Area]Ordered By: Priscilla Reynaga on 07-09-2024 Urine White Blood Cell Casts 0-5 SEEN /lpf None Seen [facility] White blood cell countOrdere d By: Priscilla Reynaga on 07-09-2024 Urine WBC 0-5 SEEN /hpf 0-5 [facility] White blood cell count 0-5 SEEN /hpf 0-5 [facility] CNPNon 06-26-2024 CNPN Telephone (NEAGCLM) REINA SULLIVAN ([id number]) 1955 M Date Time Provider Department 06/26/24 VELVET DAMARIS I NEAGCLM During your visit today, we recorded the following information about you: Rodolfo Werner 06/26/2024 8:26 AM Signed I left a vm for patient to [...] unspecified na*09/30/2022 Left atrial enlargement [I51.7] 09/30/2022 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 of 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 *09/30/2022 Migraine [...] Encounter Status:Closed by RODOLFO WERNER on 06/26/24 [facility] Drew 06-25-2024 KVNGN Telephone (FAMPWS) REINA SULLIVAN ([id number]) 1955 M Date Time Provider Department 06/25/24 FLORINDA STEVENSON During your visit today, we recorded the following information about you: Florinda Stevenson APRN.NURSE REVIEWER 06/25/2024 7:58 AM Signed Please let patient [...] pool again for scheduling consultation with orthopaedic technical sales support specialist. 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 LABCLIA [id number] [place] [address] [place] Albumin/Creatinine (U) [Mass ratio] 262 mg/g High <30 [facility] Comment on above: Order Comment: Speci men Type: URINE SPECIMENOrdering Facility: [facility] Address: [address] [place] [address] Result Comment: Adul t Male and Female Nephrotic Criteria: <30 mg/g is considered normal to mildly increased 30-300 mg/g is considered moderately increased >300 mg/g is considered severely increased KDIGO. (2013). KDIGO 2012 Clinical Practice Guideline for the Evaluation and Management of Chronic Kidney Disease. Official Journal of the International Society of Nephrology, 3(1), 1-150. Performed By: #### U ACR ####[facility] LABCL[facility] [id number] [place] [address] [place] Creatinine (U) [Mass/Vol] 85.6 mg/dL Normal 20.0-300.0 [facility] Comment on above: Order Comment: Speci men Type: URINE SPECIMENOrdering Facility: [facility] Address: [address] [place] [address] Performed By: #### U ACR ####[facility] LABCL[facility] [id number] [place] [address] [place] CBC W Auto Differential pane l (Bld)on 06-22-2024 Basophils (Bld) [#/Vol] 0.09 10*3/uL Normal <0.11 [facility] Comment on above: Order Comment: Speci men Type: BLOOD SPECIMENOrdering Facility: [facility] Address: [address] [place] [address] Performed By: #### 5 7021-8 ####[facility] LABCLIA [id number] [place] [id number] [place] Basophils/100 WBC (Bld) 0.8 % Normal [facility] Comment on above: Order Comment: Speci men Type: BLOOD SPECIMENOrdering Facility: [facility] Address: [address] [place] [address] Performed By: #### 5 7021-8 ####[facility] LABCLIA [id number] [place] [address] [place] Differential cell count method Nom (Bld) Auto Normal [facility] Comment on above: Order Comment: Speci men Type: BLOOD SPECIMENOrdering Facility: [facility] Address: [address] [place] [address] Performed By: #### 5 7021-8 ####[facility] LABCLIA [id number] [place] [address] [place] Eosinophils (Bld) [#/Vol] 0.07 10*3/uL Normal <0.46 [facility] Comment on above: Order Comment: Speci men Type: BLOOD SPECIMENOrdering Facility: [facility] Address: [address] [place] [address] Performed By: #### 5 7021-8 ####[facility] LABCLIA [id number] [place] [address] [place] Eosinophils/100 WBC (Bld) 0.7 % Normal [facility] Comment on above: Order Comment: Speci men Type: BLOOD SPECIMENOrdering Facility: [facility] Address: [address] [place] [address] Performed By: #### 5 7021-8 ####[facility] LABCLIA [id number] [place] [address] [place] Erythrocyte distribution width (RBC) [Ratio] 13.5 % Normal 11.5-15.0 [facility] Comment on above: Order Comment: Speci men Type: BLOOD SPECIMENOrdering Facility: [facility] Address: [address] [place] [address] Performed By: #### 5 7021-8 ####[facility] LABCLIA [id number] [place] [address] [place] Hematocrit (Bld) [Volume fraction] 45.6 % Normal 39.0-51.0 [facility] Comment on above: Order Comment: Speci men Type: BLOOD SPECIMENOrdering Facility: [facility] Address: [address] [place] [address] Performed By: #### 5 7021-8 ####[facility] LABIA [id number] [place] [address] [place] Hemoglobin (Bld) [Mass/Vol] 14.9 g/dL Normal 13.0-17.0 [facility] Comment on above: Order Comment: Speci men Type: BLOOD SPECIMENOrdering Facility: [facility] Address: [address] [place] [address] Performed By: #### 5 7021-8 ####[facility]IA [id number] [place] [address] [place] Immature granulocytes (Bld) [#/Vol] 0.13 10*3/uL High <0.10 [facility] Comment on above: Order Comment: Speci men Type: BLOOD SPECIMENOrdering Facility: [facility] Address: [address] [place] [address] Performed By: #### 5 7021-8 ####[facility] [id number] [place] [address] [place] Immature granulocytes/100 WBC (Bld) 1.2 % Normal [facility] Comment on above: Order Comment: Speci men Type: BLOOD SPECIMENOrdering Facility: [facility] Address: [address] [place] [address] Performed By: #### 5 7021-8 ####[facility] [id number] [place] [address] [place] Lymphocytes (Bld) [#/Vol] 1.87 10*3/uL Normal 1.00-4.00 [facility] Comment on above: Order Comment: Speci men Type: BLOOD SPECIMENOrdering Facility: [facility] Address: [address] [place] [address] Performed By: #### 5 7021-8 ####[facility] LABCLIA [id number] [place] [address] [place] Lymphocytes/100 WBC (Bld) 17.4 % Normal [facility] Comment on above: Order Comment: Speci men Type: BLOOD SPECIMENOrdering Facility: [facility] Address: [address] [place] [address] Performed By: #### 5 7021-8 ####[facility] [id number] [place] [address] [place] MCH (RBC) [Entitic mass] 30.8 pg Normal 26.0-34.0 [facility] Comment on above: Order Comment: Speci men Type: BLOOD SPECIMENOrdering Facility: [facility] Address: [address] [place] [address] Performed By: #### 5 7021-8 ####[facility] [id number] [place] [address] [place] MCHC (RBC) [Mass/Vol] 32.7 g/dL Normal 30.5-36.0 [facility] Comment on above: Order Comment: Speci men Type: BLOOD SPECIMENOrdering Facility: [facility] Address: [address] [place] [address] Performed By: #### 5 7021-8 ####[facility] [id number] [place] [address] [place] MCV (RBC) [Entitic vol] 94.2 fL Normal 80.0-100.0 C [facility] Comment on above: Order Comment: Speci men Type: BLOOD SPECIMENOrdering Facility: [facility] Address: [address] [place] [address] Performed By: #### 5 7021-8 ####[facility] LABCL[facility] [id number] [place] [address] [place] Monocytes (Bld) [#/Vol] 0.96 10*3/uL High <0.87 [facility] Comment on above: Order Comment: Speci men Type: BLOOD SPECIMENOrdering Facility: [facility] Address: [address] [place] [address] Performed By: #### 5 7021-8 ####[facility] LABCLIA [id number] [place] [id number] [place] Monocytes/100 WBC (Bld) 8.9 % Normal [facility] Comment on above: Order Comment: Speci men Type: BLOOD SPECIMENOrdering Facility: [facility] Address: [address] [place] [address] Performed By: #### 5 7021-8 ####[facility] LABCLIA [id number] [place] [address] [place] Neutrophils (Bld) [#/Vol] 7.61 10*3/uL High 1.45-7.50 [facility] Comment on above: Order Comment: Speci men Type: BLOOD SPECIMENOrdering Facility: [facility] Address: [address] [place] [address] Performed By: #### 5 7021-8 ####[facility] LABCLIA [id number] [place] [address] [place] Neutrophils/100 WBC (Bld) 71.0 % Normal [facility] Comment on above: Order Comment: Speci men Type: BLOOD SPECIMENOrdering Facility: [facility] Address: [address] [place] [address] Performed By: #### 5 7021-8 ####[facility] LABCL[facility] [id number] [place] [address] [place] Nucleated RBC (Bld) [#/Vol] 10*3/uL Normal <0.01 [facility] Comment on above: Order Comment: Speci men Type: BLOOD SPECIMENOrdering Facility: [facility] Address: [address] [place] [address] Performed By: #### 5 7021-8 ####[facility] LABCL[facility] [id number] [place] [address] [place] Nucleated RBC/100 WBC (Bld) [Ratio] 0.0 /100 WBC Normal [facility] Comment on above: Order Comment: Speci men Type: BLOOD SPECIMENOrdering Facility: [facility] Address: [address] [place] [address] Performed By: #### 5 7021-8 ####[facility] [id number] [place] [address] [place] Platelet mean volume (Bld) [Entitic vol] 10.8 fL Normal 9.0-12.7 [facility] Comment on above: Order Comment: Speci men Type: BLOOD SPECIMENOrdering Facility: [facility] Address: [address] [place] [address] Performed By: #### 5 7021-8 ####[facility] [id number] [place] [address] [place] Platelets (Bld) [#/Vol] 422 10*3/uL High 150-400 [facility] Comment on above: Order Comment: Speci men Type: BLOOD SPECIMENOrdering Facility: [facility] Address: [address] [place] [address] Performed By: #### 5 7021-8 ####[facility] [id number] [place] [address] [place] RBC (Bld) [#/Vol] 4.84 10*6/uL Normal 4.20-6.00 [facility] Comment on above: Order Comment: Speci men Type: BLOOD SPECIMENOrdering Facility: [facility] Address: [address] [place] [address] Performed By: #### 5 7021-8 ####[facility] [id number] [place] [address] [place] WBC (Bld) [#/Vol] 10.73 10*3/uL Normal 3.70-11.00 [facility] Comment on above: Order Comment: Speci men Type: BLOOD SPECIMENOrdering Facility: [facility] Address: [address] [place] [address] Performed By: #### 5 7021-8 ####[facility] LABCLIA [id number] MIKEBarbra [id number] [address] [place] CNOVon 06-22-2024 CNOV Office Visit (FAMPWS ) REINA SULLIVAN ([id number]) 1955 M Date Time Provider Department 06/22/24 1:20 PM [facility] During your visit today, we recorded the following information about you: Temperature Pulse Blood pressure 97.8 degrees 88/minute 118/76 Florinda Stevenson, GERMAN INSTRUCTOR.NURSE REVIEWER 06/22/2024 2:00 PM Signed This is a [...] (HCC) Dr. 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 Huston TBI (traumatic brain injury) (HCC) 2 times PAST SURGICAL HISTORY Procedure Laterality [...] x da (more content not included)... Normal [facility] REINA SULLIVAN ([id number]) 1955 M Date Time Provider Department 06/22/24 [facility] During your visit today, we recorded the following information about you: Rebecca Dumas, [place] 06/22/2024 4:39 PM Signed Asking for provider to clarify pt's order for [facility]. Does patient need to see a surgeon? Please advise so that [facility] staff can schedule patient appropriately. 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 Does not need surgery but they can evaluate for kyphoplasty- setting the compression if needed Allergies As of Date: 06/22/2024 Noted Allergy Reaction DYE 03/02/2016 14 - Other: See Comments Comments: used for heart cath Date Reviewed: 06/22/2024 Reviewed by: Felicita Bolden MA - Fully Assessed Reason for Visit: Patient Question [1568] Prescriptions as of 06/22/2024 - methocarbamol (ROBAXIN) [...] unspecified na*09/30/2022 Left atrial enlargement [I51.7] 09/30/2022 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 of 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 *09/30/2022 Migraine [...] Status:Closed by FELICITA BOLDEN on 06/22/24 Normal [facility] Comprehensive metabolic 2000 panelon 06-22-2024 Albumin [Mass/Vol] 4.2 g/dL Normal 3.9-4.9 [facility] Comment on above: Order Comment: Speci men Type: BLOOD SPECIMENOrdering Facility: [facility] Address: [address] [place] [address] [place] [address] Performed By: #### 2 8233-8, 85721-0, LIPNF, 2276-4 ####[facility] LABCLIA [id number] [place] [address] [place] ALP [Catalytic activity/Vol] 124 U/L High 38-113 [facility] Comment on above: Order Comment: Speci men Type: BLOOD SPECIMENOrdering Facility: [facility] Address: [address] [place] [address] Performed By: #### 2 4323-8, 94417-0, LIPNF, 2276-4 ####[facility] [id number] [place] [address] [place] ALT [Catalytic activity/Vol] 19 U/L Normal 10-54 [facility] Comment on above: Order Comment: Speci men Type: BLOOD SPECIMENOrdering Facility: [facility] Address: [address] [place] [address] Performed By: #### 2 4323-8, 44846-6, LIPNF, 2276-4 ####[facility] [id number] [place] [address] [place] Anion gap [Moles/Vol] 15 mmol/L Normal 8-15 [facility] Comment on above: Order Comment: Speci men Type: BLOOD SPECIMENOrdering Facility: [facility] Address: [address] [place] [address] Performed By: #### 2 4323-8, 96171-7, LIPNF, 2276-4 ####[facility] [id number] [place] [id number] [place] AST [Catalytic activity/Vol] 19 U/L Normal 14-40 [facility] Comment on above: Order Comment: Speci men Type: BLOOD SPECIMENOrdering Facility: [facility] Address: [address] [place] [address] Performed By: #### 2 4323-8, 24005-9, LIPNF, 2276-4 ####[facility] LABCLIA [id number] [address] [address] [place] Bilirubin [Mass/Vol] 0.7 mg/dL Normal 0.2-1.3 [facility] Comment on above: Order Comment: Speci men Type: BLOOD SPECIMENOrdering Facility: [facility] Address: [address] [place] [address] Performed By: #### 2 4323-8, 15524-7, LIPNF, 2275-4 ####[facility] LABCLIA [id number] [place] [address] [place] Calcium [Mass/Vol] 9.2 mg/dL Normal 8.5-10.2 [facility] Comment on above: Order Comment: Speci men Type: BLOOD SPECIMENOrdering Facility: [facility] Address: [address] [place] [address] Performed By: #### 2 4323-8, 98471-3, LIPNF, 2275-4 ####[facility] LABCLIA [id number] [place] [address] [place] Chloride [Moles/Vol] 102 mmol/L Normal 98-107 [facility] Comment on above: Order Comment: Speci men Type: BLOOD SPECIMENOrdering Facility: [facility] Address: [address] [place] [address] Performed By: #### 2 4323-8, 45455-4, LIPNF, 2275-4 ####[facility] LABCLIA [id number] [place] [id number] [place] CO2 [Moles/Vol] 23 mmol/L Normal 22-30 [facility] Comment on above: Order Comment: Speci men Type: BLOOD SPECIMENOrdering Facility: [facility] Address: [address] [place] [address] Performed By: #### 2 4323-8, 18412-1, LIPNF, 2275-4 ####[facility] LABCLIA [id number] [place] [id number] [place] Creatinine [Mass/Vol] 1.42 mg/dL High 0.73-1.22 [facility] Comment on above: Order Comment: Lynn de guzman Type: BLOOD SPECIMENOrdering Facility: [facility] Address: [address] [place] [address] Performed By: #### 2 4323-8, 12230-6, ANA, 6-4 ####[facility] [id number] [place] [address] [place] Creatinine and Glomerular filtration rate.predicted panel (S/P/Bld) 54 mL/min/1.73m??? Low >=60 [facility] Comment on above: Order Comment: Lynn de guzman Type: BLOOD SPECIMENOrdering Facility: [facility] Address: [address] [place] [address] Result Comment: Tatiana mated Glomerular Filtration Rate [...] actual GFR. Performed By: #### 2 4323-8, 99540-2, ANA, 6-4 ####[facility] [id number] [place] [id number] [place] Glucose [Mass/Vol] 86 mg/dL Normal 74-99 [facility] Comment on above: Order Comment: Lynn de guzman Type: BLOOD SPECIMENOrdering Facility: [facility] Address: [address] [place] [address] Result Comment: The [place] Diabetes Association (ADA) provides guidance for cutoff [...] Standards of Medical Care in Diabetes 2016, [place] [employer]. Diabetes Care. 2016.39(Suppl 1). Performed By: #### 2 4323-8, 86125-7, LIPYAMILET, 6-4 ####[facility] LABCL[facility] [id number] [place] [address] [place] Potassium [Moles/Vol] 4.2 mmol/L Normal 3.7-5.1 [facility] Comment on above: Order Comment: Speci men Type: BLOOD SPECIMENOrdering Facility: [facility] Address: [address] [place] [address] Performed By: #### 2 4323-8, 79636-0, LIPYAMILET, 2275-4 ####[facility] [id number] [place] [address] [place] Protein [Mass/Vol] 7.1 g/dL Normal 6.3-8.0 [facility] Comment on above: Order Comment: Speci men Type: BLOOD SPECIMENOrdering Facility: [facility] Address: [address] [place] [address] Performed By: #### 2 4323-8, 93175-7, LIPYAMILET, 6-4 ####[facility] LABCLIA [id number] [place] [id number] [place] Sodium [Moles/Vol] 140 mmol/L Normal 136-144 [facility] Comment on above: Order Comment: Speci men Type: BLOOD SPECIMENOrdering Facility: [facility] Address: [address] [place] [address] Performed By: #### 2 4323-8, 12513-0, LIPNF, 6-4 ####[facility] LABCL[facility] [id number] [place] [address] [place] Urea nitrogen [Mass/Vol] 22 mg/dL Normal 9-24 [facility] Comment on above: Order Comment: Speci men Type: BLOOD SPECIMENOrdering Facility: [facility] Address: [address] [place] [address] Performed By: #### 2 4323-8, 41901-2, LIPNF, 6-4 ####[facility] [id number] [place] [address] [place] Ferritin SerPl-mCncon 2024 Ferritin [Mass/Vol] 142.0 ng/mL Normal 30.3-565.7 [facility] Comment on above: Order Comment: Speci men Type: BLOOD SPECIMENOrdering Facility: [facility] Address: [address] [place] [address] Performed By: #### 2 4323-8, 69809-2, LIPNF, 6-4 ####[facility] [id number] [place] [address] [place] HbA1c (Bld)on 06-22-2024 Average glucose Estimated from glycated hemoglobin (Bld) [Mass/Vol] 126 mg/dL Normal [facility] Comment on above: Order Comment: Speci men Type: BLOOD SPECIMENOrdering Facility: [facility] Address: [address] [place] [address] Result Comment: eAG: (Estimated average glucose) is a calculated value from HgbA1c and is publications sales representative of the average blood glucose level in the last 2-3 month period. Performed By: #### 5 5454-3 ####[facility] [id number] [place] [address] [place] HbA1c (Bld) [Mass fraction] 6.0 % High 4.3-5.6 [facility] Comment on above: Order Comment: Speci men Type: BLOOD SPECIMENOrdering Facility: [facility] Address: [address] [place] [address] Result Comment: [place] Diabetes Association guidelines indicate that patients with HgbA1c in the range 5.7-6.4% are at increased risk for development of diabetes, and intervention by lifestyle modification may be beneficial. HgbA1c greater or equal to 6.5% is considered diagnostic of diabetes. Performed By: #### 5 5454-3 ####[facility]CL[facility] [id number] [place] [address] [place] Iron and Iron binding capaci ty panelon 06-22-2024 Iron [Mass/Vol] 76 ug/dL Normal 41-186 [facility] Comment on above: Order Comment: Speci men Type: BLOOD SPECIMENOrdering Facility: [facility] Address: [address] [place] [address] Performed By: #### 2 4323-8, 18403-5, LIPNF, 6-4 ####[facility]CL[facility] [id number] [address] [place] Iron binding capacity [Mass/Vol] 345 ug/dL Normal 232-386 [facility] Comment on above: Order Comment: Speci men Type: BLOOD SPECIMENOrdering Facility: [facility] Address: [address] [place] [address] Performed By: #### 2 4323-8, 15956-3, LIPNF, 6-4 ####[facility] [id number] [place] [address] [place] Iron/TIBC [Molar ratio] 22.0 % Normal 15.0-57.0 C [facility] Comment on above: Order Comment: Speci men Type: BLOOD SPECIMENOrdering Facility: [facility] Address: [address] [place] [address] Performed By: #### 2 4323-8, 41782-3, LIPNF, 2276-4 ####[facility]CL[facility] [id number] [place] [address] [place] LIPID PANEL, NONFASTINGon Cholesterol [Mass/Vol] 149 mg/dL Normal <200 [facility] Comment on above: Order Comment: Speci men Type: BLOOD SPECIMENOrdering Facility: [facility] Address: [address] [place] [address] Result Comment: <200 mg/dL, Desirable 200-239 mg/dL, Borderline high >239 mg/dL, High Performed By: #### 2 4323-8, 88983-1, LIPNF, 2276-4 ####[facility]CL[facility] [id number] [place] [address] [place] HDL CHOLESTEROL, NF 41 mg/dL Normal >39 [facility] Comment on above: Order Comment: Speci men Type: BLOOD SPECIMENOrdering Facility: [facility] Address: [address] [place] [address] Result Comment: 40-5 9 mg/dL, Acceptable >59 mg/dL, High: Negative risk factor for coronary heart disease <40 mg/dL, Low: Positive risk factor for coronary heart disease Performed By: #### 2 4323-8, 10213-3, LIPNF, 2276-4 ####[facility] [id number] [place] [address] [place] LDL CHOLESTEROL, NF 88 mg/dL Normal <100 [facility] Comment on above: Order Comment: Speci men Type: BLOOD SPECIMENOrdering Facility: [facility] Address: [address] [place] [address] Result Comment: <100 mg/dL, Optimal 100-129 mg/dL, Near optimal/above optimal 130-159 mg/dL, Borderline high 160-189 mg/dL, High >189 mg/dL, Very high Secondary prevention optimal LDL Cholesterol levels are recommended to be < 70 mg/dL Performed By: #### 2 4323-8, 58020-3, LIPNF, 2276-4 ####[facility] [id number] [place] [address] [place] LDL/HDL RATIO, NF 2.15 mg/dL Normal <2.54 [facility] Comment on above: Order Comment: Speci men Type: BLOOD SPECIMENOrdering Facility: [facility] Address: [address] [place] [address] Result Comment: Komale live: 1. National Cholesterol Education Program ATP III Guideline At-A-Glance Quick Desk Reference: National Heart, Lung, and Blood [place]. National Institutes of Health. 2001: NIH Publication No. 01-3305. 2. An International Atherosclerosis Society position paper: global recommendations for the management of dyslipidemia: executive summary, Atherosclerosis. 2014: 232(2):410-413. Performed By: #### 2 4323-8, 82479-3, LIPNF, 6-4 ####[facility] [id number] [place] [address] [place] NON HDL CHOL, NF 108 mg/dL Normal <130 [facility] Comment on above: Order Comment: Lynn gege Type: BLOOD SPECIMENOrdering Facility: [facility] Address: [address] [place] [address] Result Comment: <130 mg/dL, Optimal 130-159 mg/dL, Near optimal/above optimal 160-189 mg/dL, Borderline high 190-219 mg/dL, High >219 mg/dL, Very high Secondary prevention optimal non HDL Cholesterol levels are recommended to be <100 mg/dL Performed By: #### 2 4323-8, 37226-5, LIPNF, 6-4 ####[facility] [id number] [address] [place] T CHOL/HDL RATIO NF 3.63 mg/dL Normal <5.10 [facility] Comment on above: Order Comment: Lynn de guzman Type: BLOOD SPECIMENOrdering Facility: [facility] Address: [address] [place] [address] Performed By: #### 2 4323-8, 25071-2, LIPNF, 6-4 ####[facility] [id number] [place] [address] [place] TRIGLYCERIDES, NF 99 mg/dL Normal <150 [facility] Comment on above: Order Comment: Speci men Type: BLOOD SPECIMENOrdering Facility: [facility] Address: [address] [place] [address] Result Comment: <150 mg/dL, Normal 150-199 mg/dL, Borderline high 200-499 mg/dL, High >499 mg/dL, Very high Performed By: #### 2 4323-8, 29144-2, LIPNF, 2276-4 ####[facility] [id number] [place] [address] [place] VLDL CHOLESTEROL, NF 20 mg/dL Normal <30 [facility] Comment on above: Order Comment: Speci men Type: BLOOD SPECIMENOrdering Facility: [facility] Address: [address] [place] [address] Performed By: #### 2 4323-8, 87827-1, LIPNF, 2276-4 ####[facility] [id number] [place] [address] [place] Magnesium SerPl-mCncon 06-22 Magnesium [Mass/Vol] 2.2 mg/dL Normal 1.7-2.3 [facility] Comment on above: Order Comment: Speci men Type: BLOOD SPECIMENOrdering Facility: [facility] Address: [address] [place] [address] Performed By: #### 1 9123-9 ####[facility] [id number] [place] [address] [place] URINALYSIS, REFLEX MICROSCOP ICon 06-22-2024 Bacteria LM.HPF (Urine sed) [#/Area] Negative Negative /HPF [facility] Bilirubin Ql (U) Negative Negative [facility] Clarity (Unsp spec) Clear Clear [facility] Color (U) Yellow Yellow [facility] Epithelial cells LM.HPF (Urine sed) [#/Area] None Seen /HPF [facility] Glucose Test strip (U) [Mass/Vol] Negative Negative [facility] Hemoglobin Ql (U) Negative Negative [facility] Hyaline casts (Urine sed) [#/Area] 4-10 /LPF Abnormal 0 /LPF [facility] Interpretation and review of laboratory results Abnormal [facility] Ketones Ql (U) Negative Negative [facility] Leukocyte esterase Test strip Ql (U) Negative Negative [facility] Nitrite Ql (U) Negative Negative [facility] pH (U) 6.0 [pH] NINF - 8.5 [facility] Protein (U) [Mass/Vol] 2+ Abnormal Negative [facility] RBC LM.HPF (Urine sed) [#/Area] 0-2 /HPF 0-2 /HPF [facility] Specific gravity (U) [Rel density] 1.012 1.005 - 1.030 [facility] Urobilinogen Ql (U) 0.2 EU/dL 0.2-1.0 EU/dL [facility] [facility] WBC LM.HPF (Urine sed) [#/Area] 0-5 /HPF 0-5 /HPF [facility] This test was developed and its performance characteristics determined by [facility]'s [facility] [place] ([facility]). It has not been cleared or approved by the FDA. -[facility] is regulated under CLIA as qualified to perform high-complexity testing. This test is used for clinical purposes. It should not be regarded as investigational or for research. [facility] Bacteria LM.HPF (Urine sed) [#/Area] Negative Normal Negative [facility] Comment on above: Order Comment: Speci men Type: URINE SPECIMENOrdering Facility: [facility] Address: [address] [place] [address] Performed By: #### L [id number] ####[facility] LABCLIA [id number] [place] [address] [place] Bilirubin Ql (U) Negative Normal Negative [facility] Comment on above: Order Comment: Speci men Type: URINE SPECIMENOrdering Facility: [facility] Address: [address] [place] [address] Performed By: #### L [id number] ####[facility] LABCLIA [id number] [place] [address] [place] Clarity (Unsp spec) Clear Normal Clear [facility] Comment on above: Order Comment: Speci men Type: URINE SPECIMENOrdering Facility: [facility] Address: [address] [place] [address] Performed By: #### L [id number] ####[facility] LABCLIA [id number] [place] [address] [place] Color (U) Yellow Normal Yellow [facility] Comment on above: Order Comment: Speci men Type: URINE SPECIMENOrdering Facility: [facility] Address: [address] [place] [address] Performed By: #### L [id number] ####[facility] LABIA [id number] [place] [address] [place] Epithelial cells LM.HPF (Urine sed) [#/Area] None Seen Normal [facility] Comment on above: Order Comment: Speci men Type: URINE SPECIMENOrdering Facility: [facility] Address: [address] [place] [address] Performed By: #### L [id number] ####[facility] LABIA [id number] [place] [address] [place] Glucose Test strip (U) [Mass/Vol] Negative Normal Negative [facility] Comment on above: Order Comment: Speci men Type: URINE SPECIMENOrdering Facility: [facility] Address: [address] [place] [address] Performed By: #### L [id number] ####[facility] LABIA [id number] [place] [address] [place] Hemoglobin Ql (U) Negative Normal Negative [facility] Comment on above: Order Comment: Speci men Type: URINE SPECIMENOrdering Facility: [facility] Address: [address] [place] [address] Performed By: #### L [id number] ####[facility] LABCLIA [id number] [place] [address] [place] Hyaline casts (Urine sed) [#/Area] 4-10 /LPF Abnormal 0 /LPF [facility] Comment on above: Order Comment: Speci men Type: URINE SPECIMENOrdering Facility: [facility] Address: [address] [place] [address] Performed By: #### L [id number] ####[facility] LABCLIA [id number] [place] [address] [place] Ketones Ql (U) Negative Normal Negative [facility] Comment on above: Order Comment: Speci men Type: URINE SPECIMENOrdering Facility: [facility] Address: [address] [place] [address] Performed By: #### L [id number] ####[facility] LABCLIA [id number] [place] [address] [place] Leukocyte esterase Test strip Ql (U) Negative Normal Negative [facility] Comment on above: Order Comment: Speci men Type: URINE SPECIMENOrdering Facility: [facility] Address: [address] [place] [address] Performed By: #### L [id number] ####[facility] LABCLIA [id number] [place] [address] [place] Nitrite Ql (U) Negative Normal Negative [facility] Comment on above: Order Comment: Speci men Type: URINE SPECIMENOrdering Facility: [facility] Address: [address] [place] [address] Performed By: #### L [id number] ####[facility] LABCLIA [id number] [place] [address] [place] pH (U) 6.0 [pH] Normal <8.5 [facility] Comment on above: Order Comment: Speci men Type: URINE SPECIMENOrdering Facility: [facility] Address: [address] [place] [address] Performed By: #### L [id number] ####[facility] [id number] [place] [address] [place] Protein (U) [Mass/Vol] 2+ Abnormal Negative [facility] Comment on above: Order Comment: Speci men Type: URINE SPECIMENOrdering Facility: [facility] Address: [address] [place] [address] Performed By: #### L [id number] ####[facility] [id number] [place] [address] [place] RBC LM.HPF (Urine sed) [#/Area] 0-2 /HPF Normal 0-2 /HPF [facility] Comment on above: Order Comment: Speci men Type: URINE SPECIMENOrdering Facility: [facility] Address: [address] [place] [address] Performed By: #### L [id number] ####[facility] [id number] [place] [address] [place] Specific gravity (U) [Rel density] 1.012 Normal 1.005-1.030 [facility] Comment on above: Order Comment: Speci men Type: URINE SPECIMENOrdering Facility: [facility] Address: [address] [place] [address] Performed By: #### L [id number] ####[facility] [id number] [place] [address] [place] Urobilinogen Ql (U) 0.2 EU/dL Normal 0.2-1.0 EU/dL [facility] Comment on above: Order Comment: Speci men Type: URINE SPECIMENOrdering Facility: [facility] Address: [address] [place] [address] Performed By: #### L [id number] ####[facility] [id number] [place] WBC LM.HPF (Urine sed) [#/Area] 0-5 /HPF Normal 0-5 /HPF [facility] Comment on above: Order Comment: Speci men Type: URINE SPECIMENOrdering Facility: [facility] Address: [address] [place] [address] Performed By: #### L [id number] ####[facility] LABCLIA [id number] [address] [place] XR LUMBAR 3V [...] spine are presented. FINDINGS: There are five djw-bgg-thypujw lumbar vertebrae. L1 vertebral body compression deformity/age indeterminate fracture is demonstrated, involving the superior endplate.. Questionable L2-3 mild disc space narrowing. There is moderate osteophyte formation, with facet arthrosis in the lower lumbar spine. Kissing spine seen on lateral view. Others: There are vascular calcifications. IMPRESSION L1 vertebral body compression deformity/age indeterminate fracture. Lumbar spine degenerative changes as described above. Bellperson: [facility] Transcribe Date/Time: Jun 22 2024 2:54P Dictated by : BRIAN WILKINSON MD This examination was interpreted and the report reviewed and electronically signed by: BRIAN WILKINSON MD on Jun 22 2024 2:55PM EST [id number] [facility] XR Lumbar spine 3 Viewson * * [...] spine are presented. FINDINGS: There are five nrv-dzq-sailcce lumbar vertebrae. L1 vertebral body compression deformity/age indeterminate fracture is demonstrated, involving the superior endplate.. Questionable L2-3 mild disc space narrowing. There is moderate osteophyte formation, with facet arthrosis in the lower lumbar spine. Kissing spine seen on lateral view. Others: There are vascular calcifications. IMPRESSION L1 vertebral body compression deformity/age indeterminate fracture. Lumbar spine degenerative changes as described above. Bellperson: [facility] Transcribe Date/Time: Jun 22 2024 2:54P Dictated by : BRIAN WILKINSON MD This examination was interpreted and the report reviewed and electronically signed by: BRIAN WILKINSON MD on Jun 22 2024 2:55PM [facility] DIVISION OF RADIOLOGY Provider, [facility] - 06/22/2024 * * *Final Report* * [...] spine are presented. FINDINGS: There are five ppo-rot-jnbajws lumbar vertebrae. L1 vertebral body compression deformity/age indeterminate fracture is demonstrated, involving the superior endplate.. Questionable L2-3 mild disc space narrowing. There is moderate osteophyte formation, with facet arthrosis in the lower lumbar spine. Kissing spine seen on lateral view. Others: There are vascular calcifications. IMPRESSION L1 vertebral body compression deformity/age indeterminate fracture. Lumbar spine degenerative changes as described above. Bellperson: [facility] Transcribe Date/Time: Jun 22 2024 2:54P Dictated by : BRIAN WILKINSON MD This examination was interpreted and the report reviewed and electronically signed by: BRIAN WILKINSON MD on Jun 22 2024 2:55PM EST [facility] Radiology Study observation (narrative) Kaitlin belle [facility] XR Lumbar spine 3 ViewsOrder ed By: Ccf Provider on 06-22-2024 [facility] CNPNon 06-16-2024 CNPN Telephone (FAMPWS) REINA SULLIVAN ([id number]) 1955 M Date Time Provider Department 06/16/24 [facility] During your visit today, we recorded the following information about you: Aric Zapien MD 06/16/2024 8:48 AM Signed Schedule to see me at [facility] in person on 06/21/24. Please make sure they are aware appt they scheduled is at that office and not Aric Reddy MD 06/19/2024 10:50 AM Signed Please call before (I suspect was put in wrong place) Felicita Bolden MA 06/19/2024 11:21 AM Signed Please call pt and ask if pt knows he is scheduled at [facility] Florinda Stevenson APRN.NURSE REVIEWER 06/22/2024 3:37 PM Signed Please let patient know that he has a lumbar 1 compression fracture of the endplate. I am going to send him to a spine surgeon to review. Please facilitate primaryscheduling Felicita Bolden MA 06/22/2024 4:29 PM Signed Patient notified of results and transferred to operations scheduler Mecca Summers 06/22/2024 4:43 PM Signed Mel BRYANT unauthorized to schedule for this department. Patient notified that JARRETT routed referral to the appropriate department and their facility will contact patient for scheduling. Patient requests all future medical information and appointment scheduling be disclosed to ex-spouse, awa Thayer. Mecca Summers 06/25/2024 10:57 AM Signed Please contact patient to assist with scheduling consultation with [facility] orthopaedic technical sales support specialist per 06/22/24 telephone encounter. Allergies As of Date: 06/16/2024 Noted Allergy Reaction DYE 03/02/2016 14 - Other: See Comments Comments: used for heart cath Date Reviewed: 11/22/2023 Reviewed by: Florinda Flores LPN - Fully Assessed Reason for Visit: Patient Update [1234] Primary Visit Diagnosis:Compression fracture of L1 vertebra, initial encounter ([facility]) [S32.010A] Order(s):[facility] [[id number]] Order #: [id number]: 1 Prescriptions as of 06/25/2024 - lisinopril [...] unspecified na*09/30/2022 Left atrial enlargement [I51.7] 09/30/2022 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 of 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 *09/30/2022 Migraine [...] Encounter Status:Closed by FELICITA BOLDEN on 06/22/24 [facility] 03-21-2024 MAKAYLA Telephone (ENDOSO) REINA SULLIVAN ([id number]) 1955 M Date Time Provider Department 03/21/24 LU LANGE During your visit today, we recorded the following information about you: Vanna Flores 03/21/2024 3:31 PM Signed Makanda states that their records show patient has diabetes but does not take statins. AMA recommend that patient take a statin to reduce cardiovascular risk. 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 Halima notes that she helps patient " to a certain extent." Halima and Nikkie spoke about [facility] Older Adult Resource Directory. Halima asks that Nikkie mail patient this guide for him to review and see what services are available in the community. Nikkie will also attach [employer] Older Adult support program and [facility] information. Allergies As of Date: 11/24/2023 Noted [...] unspecified na*09/30/2022 Left atrial enlargement [I51.7] 09/30/2022 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 of 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 *09/30/2022 Migraine [...] Encounter Status:Closed by HARVEY HAZEL on 11/24/23 [facility] CNOVon 11-22-2023 CNOV Office Visit (FAMPWS ) REINA SULLIVAN ([id number]) 1955 M Date Time Provider Department 11/22/23 3:40 PM [facility] During your visit today, we recorded [...] daily No seizures. 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) 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 of 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 Non-rheumatic tricuspid valve insufficiency Mitral valve insufficiency, unspecified etiology Left atrial enlargement Enlarged thoracic aorta (hcc) Primary pulmonary htn (hcc) Primary hypertension Mixed hyperlipidemia Cardiovascular interval hx: Last cardiology visit 08/04/2023 with AYLIN Harry: Stable from a cardiac standpoint 10/14/2022 ECG: Atrial fibrillation with rapid ventricular response, nonspecific ST abnormality 11/19/2020 ED visit SOB with negative work up with normal EKG, CXR, troponins, routine lab 10/20/2022 EKG atrial fibrillation with rapid ventricular response, nonspecific ST abnormality 07/14/[address] James: stable AF, no concerns 09/08/2015 Mel Dewitt: cardiac cath: no disease 09/08/2015 cardiac catheter[address] [facility] Dr. James: - primary rhythm atrial fibrillation [...] none. Lab review: 06/23/2023 external lab work [facility], Chemistry abnormals: BUN 21 Serum creatinine [...] Lymph 1.00 - 4.00 k/uL 1.57 2.35 [place]% % 9.8 11.3 Abs [place] <0.87 k/uL 0.66 0.98 (H) Eosin% % [...] long-term cur (more content not included)... [facility] Absolute lymphocyte countOrd ered By: Rakel Hodgson on 06-23-2023 Lymphocytes Auto (Unsp spec) [#/Vol] 2.02 10*3/uL 0.83-4.51 [facility] Automated lymphocyte count a s percentage of total leukocytesOrdered By: Rakel Hodgson on 06-23-2023 Lymphocytes/100 WBC Auto (Unsp spec) 28.9 % 19-41 [facility] Basophil percentageOrdered B y: Rakel Hodgson on 06-23-2023 Basophils/100 WBC (Bld) 0.7 % 0-1 [facility] Chloride [Moles/Vol] 104 mmol/L 98-107 [facility] Eosinophils/100 WBC (Bld) 1.0 % 0-5 [facility] Glucose [Mass/Vol] 99 mg/dL 74-106 [facility] Hemoglobin (Bld) [Mass/Vol] 15.8 g/dL 13.0-16.5 [facility] Monocytes/100 WBC (Bld) 11.7 % 0-10 [facility] Neutrophils (Bld) [#/Vol] 4.0 10*3/uL 2.0-7.7 [facility] Neutrophils/100 WBC (Bld) 57.1 % 47-70 [facility] Potassium [Moles/Vol] 4.2 mmol/L 3.5-5.[address] [facility] Sodium [Moles/Vol] 139 mmol/L 136-145 [facility] WBC (Bld) [#/Vol] 7.0 10*3/uL 4.4-11.0 [facility] Determination of erythrocyte mean corpuscular volume (MCV)Ordered By: Rakel Hodgson on 06-23-2023 MCV (RBC) [Entitic vol] 93.6 fL 80-94 [facility] Erythrocyte distribution wid th ratioOrdered By: Rakel Hodgson on 06-23-2023 Erythrocyte distribution width (RBC) [Ratio] 13.0 % 11.6-14.6 [facility] Erythrocyte distribution wid th standard deviationOrdered By: Rakel Hodgson on 06-23-2023 Erythrocyte distribution width (RBC) [Entitic vol] 44.3 fL 35.1-43.9 [facility] Hematocrit Auto (Bld) [Volum e fraction]Ordered By: Rakel Hodgson on 06-23-2023 Hematocrit (Bld) [Volume fraction] 48.6 % 40-54 [facility] Immature granulocytes/100 WB C Auto (Bld)Ordered By: Rakel Hodgson on 06-23-2023 Immature granulocytes/100 WBC (Bld) 0.600 % 0.0-0.9 [facility] Comment on above: IG% - Immature Granu locytes (promyelocytes, myelocytes and metamyelocytes) > 1% indicates that a LEFT SHIFT is Present. Laboratory - Chemistry and C hemistry - challengeOrdered By: Rakel Hodgson on 06-23-2023 CO2 [Moles/Vol] 31.0 mmol/L 21.0-32.0 [facility] Urea nitrogen/Creatinine [Mass ratio] 13.2 mg/mg 10-20 [facility] Laboratory - Hematology and Cell countsOrdered By: Rakel Hodgson on 06-23-2023 MCH (RBC) [Entitic mass] 30.4 pg 27.0-32.0 [facility] MCHC (RBC) [Mass/Vol] 32.5 g/dL 32-[address] [facility] Nucleated RBC/100 WBC (Bld) [Ratio] 0 % 0-5 [facility] Platelets (Bld) [#/Vol] 219 10*3/uL 150-450 [facility] No Panel InformationOrdered By: Rakel Hodgson on 06-23-2023 Estimated GFR (MDRD) Amer 56 mL/min >60 [facility] Comment on above: GFR Calc Estimated GFR (MDRD) Non-Af Amer 47 mL/min >60 [facility] Comment on above: Non- GFR Calc Platelet mean volume Hank-Ec ker (Bld) [Entitic vol]Ordered By: Rakel Hodgson on 06-23-2023 Platelet mean volume (Bld) [Entitic vol] 11.4 fL 6.2-12.0 [facility] RBC Auto (Bld) [#/Vol]Ordere d By: Rakel Hodgson on 06-23-2023 RBC (Bld) [#/Vol] 5.19 10*6/uL 4.6-6.2 [facility] Serum or plasma calcium rosalina urement (mass/volume)Ordered By: Rakel Hodgson on 06-23-2023 Calcium [Mass/Vol] 9.1 mg/dL 8.5-10.1 [facility] Serum or plasma creatinine m easurement (mass/volume)Ordered By: Rakel Hodgson on 06-23-2023 Creatinine [Mass/Vol] 1.59 mg/dL 0.70-1.[address] [facility] Comment on above: The validity of the calculated GFR & GFRAA in patients over 70 years has not been determined. Clinical correlation is essential. Serum or plasma urea nitroge n measurement (mass/volume)Ordered By: Rakel Hodgson on 06-23-2023 Urea nitrogen [Mass/Vol] 21 mg/dL 7-18 [facility] Thin prep Papanicolaou smear with manual screeningOrdered By: Rakel Hodgson on 06-23-2023 Thin prep Papanicolaou smear with manual screening 4 - [facility] STREP A MOLECULAR (POC)on Procedural Control Valid [facility] Strep A (POCT) Negative Negative [facility] CBC W Auto Differential pane l (Bld)on 09-30-2022 Basophils (Bld) [#/Vol] 0.04 10*3/uL <0.11 k/uL [facility] Basophils/100 WBC (Bld) 0.6 % [facility] Differential cell count method Nom (Bld) Auto [facility] Eosinophils (Bld) [#/Vol] 0.07 10*3/uL <0.46 k/uL [facility] Eosinophils/100 WBC (Bld) 1.0 % [facility] Erythrocyte distribution width (RBC) [Ratio] 13.6 % 11.5 - 15.0 % [facility] Hematocrit (Bld) [Volume fraction] 43.7 % 39.0 - 51.0 % [facility] Hemoglobin (Bld) [Mass/Vol] 14.2 g/dL 13.0 - 17.0 g/dL [facility] Immature granulocytes (Bld) [#/Vol] <0.10 k/uL [facility] Immature granulocytes/100 WBC (Bld) 0.3 % [facility] Lymphocytes (Bld) [#/Vol] 1.57 10*3/uL 1.00 - 4.00 k/uL [facility] Lymphocytes/100 WBC (Bld) 23.3 % [facility] MCH (RBC) [Entitic mass] 31.1 pg 26.0 - 34.0 pg [facility] MCHC (RBC) [Mass/Vol] 32.5 g/dL 30.5 - 36.0 g/dL [facility] MCV (RBC) [Entitic vol] 95.8 fL 80.0 - 100.0 fL [facility] Monocytes (Bld) [#/Vol] 0.66 10*3/uL <0.87 k/uL [facility] Monocytes/100 WBC (Bld) 9.8 % [facility] Neutrophils (Bld) [#/Vol] 4.37 10*3/uL 1.45 - 7.50 k/uL [facility] Neutrophils/100 WBC (Bld) 65.0 % [facility] Nucleated RBC (Bld) [#/Vol] <0.01 k/uL [facility] Nucleated RBC/100 WBC (Bld) [Ratio] 0.0 /100 WBC [facility] Platelet mean volume (Bld) [Entitic vol] 11.4 fL 9.0 - 12.7 fL [facility] Platelets (Bld) [#/Vol] 246 10*3/uL 150 - 400 k/uL [facility] RBC (Bld) [#/Vol] 4.56 10*6/uL 4.20 - 6.0 0 m/uL [facility] WBC (Bld) [#/Vol] 6.73 10*3/uL 3.70 - 11. 00 k/uL [facility] HbA1c (Bld)on 09-30-2022 Average glucose Estimated from glycated hemoglobin (Bld) [Mass/Vol] 131 mg/dL [facility] HbA1c (Bld) [Mass fraction] 6.2 % High 4.3 - 5.6 % [facility] VALPROIC A/DEPAKENEon 2022 Valproate [Mass/Vol] 70.5 ug/mL 50.0 - 100.0 ug/mL [facility] No Panel Informationon 04-26 [facility] Absolute lymphocyte counton 03-06-2022 Lymphocytes Auto (Unsp spec) [#/Vol] 2.57 10*3/uL 0.83-4.51 [facility] Work Phone: Basophil percentageon 2021 Basophils/100 WBC (Bld) 0.5 % 0-1 [facility] Work Phone: Chloride [Moles/Vol] 104 mmol/L 98-107 [facility] Work Phone: Eosinophils/100 WBC (Bld) 1.8 % 0-5 [facility] Work Phone: Glucose [Mass/Vol] 112 mg/dL 74-106 [facility] Work Phone: [phone] Comment on above: Fasting Glucose resu lt from 100 to 125 mg/dL suggests IMPAIRED HOMEOSTASIS per A.D.A. criteria. Neutrophils (Bld) [#/Vol] 4.0 10*3/uL 2.0-7.7 [facility] Work Phone: Neutrophils/100 WBC (Bld) 52.2 % 47-70 [facility] Work Phone: Potassium [Moles/Vol] 3.4 mmol/L 3.5-5.1 [facility]: Sodium [Moles/Vol] 142 mmol/L 136-145 [facility] Work Phone: WBC (Bld) [#/Vol] 7.7 10*3/uL 4.4-11.0 [facility] Work Phone: [phone] Blood erythrocytes count (nu mber/volume)on 03-06-2022 RBC (Bld) [#/Vol] 4.57 10*6/uL 4.6-6.2 [facility] Work Phone: Blood hemoglobin measurement (mass/volume)on 03-06-2022 Hemoglobin (Bld) [Mass/Vol] 14.7 g/dL 13.0-16.5 [facility] Work Phone: Blood lymphocytes/100 leukoc yteson 03-06-2022 Lymphocytes/100 WBC (Bld) 33.2 % 19-41 [facility] Work Phone: Blood monocytes/100 leukocyt eson 03-06-2022 Monocytes/100 WBC (Bld) 11.8 % 0-10 [facility] Work Phone: Blood platelet mean volumeon 03-06-2022 Platelet mean volume (Bld) [Entitic vol] 10.3 fL 6.2-12.0 [facility] Work Phone: Determination of erythrocyte mean corpuscular volume (MCV)on 03-06-2022 MCV (RBC) [Entitic vol] 93.7 fL 80-94 [facility] Work Phone: Hematocrit Auto (Bld) [Volum e fraction]on 03-06-2022 Hematocrit (Bld) [Volume fraction] 42.8 % 40-54 [facility] Work Phone: Laboratory - Chemistry and C hemistry - challengeon 03-06-2022 CO2 [Moles/Vol] 28.0 mmol/L 21.0-32.0 [facility] Work Phone: Urea nitrogen/Creatinine [Mass ratio] 19.0 mg/mg 10-20 [facility] Work Phone: Laboratory - Hematology and Cell countson 03-06-2022 Erythrocyte distribution width (RBC) [Entitic vol] 43.5 fL 35.1-43.9 [facility] Work Phone: Erythrocyte distribution width (RBC) [Ratio] 12.7 % 11.6-14.6 [facility] Work Phone: Immature granulocytes/100 WBC (Bld) 0.500 % 0.0-0.9 [facility] Work Phone: Comment on above: IG% - Immature Granu locytes (promyelocytes, myelocytes and metamyelocytes) > 1% indicates that a LEFT SHIFT is Present. MCH (RBC) [Entitic mass] 32.2 pg 27.0-32.0 [facility] Work Phone: Nucleated RBC/100 WBC (Bld) [Ratio] 0 % 0-5 [facility] Work Phone: MCHC Auto (RBC) [Mass/Vol]on 03-06-2022 MCHC (RBC) [Mass/Vol] 34.3 g/dL 32-[address] [facility] Work Phone: No Panel Informationon 03-06 Estimated Creatinine Clearance Calc 70.76 ml/min [facility] Work Phone: Estimated GFR (MDRD) Amer 77 mL/min >60 [facility] Work Phone: Comment on above: GFR Calc Estimated GFR (MDRD) Non-Af Amer 64 mL/min >60 [facility] Work Phone: Comment on above: Non- GFR Calc Platelets bldon 03-06-2022 Platelets (Bld) [#/Vol] 230 10*3/uL 150-450 [facility] Work Phone: Serum or plasma calcium rosalina urement (mass/volume)on 03-06-2022 Calcium [Mass/Vol] 9.7 mg/dL 8.5-10.1 [facility] Work Phone: Serum or plasma creatinine m easurement (mass/volume)on 03-06-2022 Creatinine [Mass/Vol] 1.21 mg/dL 0.70-1.[address] [facility] Work Phone: Comment on above: The validity of the calculated GFR & GFRAA in patients over 70 years has not been determined. Clinical correlation is essential. Serum or plasma urea nitroge n measurement (mass/volume)on 03-06-2022 Urea nitrogen [Mass/Vol] 23 mg/dL 7-18 [facility] Work Phone: Thin prep Papanicolaou smear with manual screeningon 03-06-2022 Thin prep Papanicolaou smear with manual screening 10 5-15 [facility] Work Phone: No Panel InformationOrdered By: [facility] Provider on 03-12-2021 [facility] No Panel Informationon 03-12 Radiology Study observation (narrative) [facility] XR Ankle - right AP and Late [...] Impression: 1. No acute fracture or dislocation. Bellperson: [facility] Transcribe Date/Time: Mar 12 2021 3:19P Dictated by : COURTNEY MART MD This examination was interpreted and the report reviewed and electronically signed by: COURTNEY MART MD on Mar 12 2021 3:22PM [facility] DIVISION OF RADIOLOGY Provider, [facility] - 03/12/2021 * * *Final Report* * [...] Impression: 1. No acute fracture or dislocation. Bellperson: [facility] Transcribe Date/Time: Mar 12 2021 3:19P Dictated by : COURTNEY MART MD This examination was interpreted and the report reviewed and electronically signed by: COURTNEY MART MD on Mar 12 2021 3:22PM EST [facility] XR Foot - right AP and Later [...] Impression: 1. No acute fracture or dislocation. Bellperson: [facility] Transcribe Date/Time: Mar 12 2021 3:19P Dictated by : COURTNEY MART MD This examination was interpreted and the report reviewed and electronically signed by: COURTNEY MART MD on Mar 12 2021 3:22PM [facility] DIVISION OF RADIOLOGY Provider, [facility] - 03/12/2021 * * *Final Report* * [...] Impression: 1. No acute fracture or dislocation. Bellperson: [facility] Transcribe Date/Time: Mar 12 2021 3:19P Dictated by : COURTNEY MART MD This examination was interpreted and the report reviewed and electronically signed by: COURTNEY MART MD on Mar 12 2021 3:22PM EST [facility] VISUAL FIELD 30-2 OU (BOTH E YES) [facility] Vital Signs Date Time Vital Sign Value Performing Clinician Facility 07-11-2024 17:10-0500 Body temperature 97.7 [degF] Dr. Aric Zapien MD Work Phone: 9(695)[phone] [place] [address] 07-11-2024 17:10-0500 Diastolic blood pressure 88 mm[Hg] Dr. Aric Zapien MD Work Phone: 7(265)789-879288 [place] [address] 07-11-2024 17:10-0500 Heart rate 100 /min Dr. Aric Zapien MD Work Phone: 4(842)837-482788 [place] [address] 07-11-2024 17:10-0500 Respiratory rate 16 /min Dr. Aric Zapien MD Work Phone: 3(503)307-251388 [place] [address] 07-11-2024 17:10-0500 SaO2% (BldA) [Mass fraction] 97 % Dr. Aric Zapien MD Work Phone: 8(812)619-434588 [place] [address] 07-11-2024 17:10-0500 Systolic blood pressure 127 mm[Hg] Dr. Aric Zapien MD Work Phone: 9(318)542-027188 [place] [address] 07-10-2024 10:00-0500 Inhaled oxygen flow rate 2 L/min Dr. Aric Zapien MD Work Phone: 6(590)340-554388 [place] [address] 07-09-2024 15:34-0500 Body height 182.[address] Aric Zapien MD Work Phone: 0(013)[phone] [place] [address] 07-09-2024 15:34-0500 Body weight 97.[address] Aric Zapien MD Work Phone: 2(905)685-947188 [place] [address] 07-09-2024 11:44-0500 Body mass index (BMI) [Ratio] 29.2 kg/m2 Dr. Aric Zapien MD Work Phone: 8(432)692-845288 [place] [address] 06-22-2024 13:29-0500 Body temperature 97.81 [degF] Florinda Stevenson GERMAN INSTRUCTOR.NURSE REVIEWER Work Phone: [facility] 06-22-2024 13:29-0500 Diastolic blood pressure 76 mm[Hg] Florinda Stevenson GERMAN INSTRUCTOR.NURSE REVIEWER Work Phone: [facility] 06-22-2024 13:29-0500 Heart rate 88 /min Florinda Stevenson GERMAN INSTRUCTOR.NURSE REVIEWER Work Phone: [facility] 06-22-2024 13:29-0500 SaO2% (BldA) [Mass fraction] 99 % Florinda Stevenson GERMAN INSTRUCTOR.NURSE REVIEWER Work Phone: [facility] 06-22-2024 13:29-0500 Systolic blood pressure 118 mm[Hg] Florinda Stevenson GERMAN INSTRUCTOR.NURSE REVIEWER Work Phone: [facility] 11-22-2023 15:27-0400 Body mass index (BMI) [Ratio] 30.65 kg/m2 NA Max PA-C Work Phone: [facility] 11-22-2023 15:27-0400 Body weight 102.51 kg NA Max PA-C Work Phone: [facility] 11-22-2023 15:27-0400 Diastolic blood pressure 80 mm[Hg] NA Max PA-C Work Phone: [facility] 11-22-2023 15:27-0400 Heart rate 85 /min NA Max PA-C Work Phone: [facility] 11-22-2023 15:27-0400 Respiratory rate 15 /min NA Max PA-C Work Phone: [facility] 11-22-2023 15:27-0400 SaO2% (BldA) [Mass fraction] 96 % NA Max PA-C Work Phone: [facility] 11-22-2023 15:27-0400 Systolic blood pressure 128 mm[Hg] NA Max PA-C Work Phone: [facility] 06-23-2023 15:04-0500 Body height 187.[address] Aric Zapien Work Phone: [facility] 06-23-2023 15:04-0500 Body mass index (BMI) [Ratio] 28.5 kg/m2 Dr. Aric Zapien Work Phone: [facility] 06-23-2023 15:04-0500 Body weight 100.[address] Aric Zapien Work Phone: [facility] 06-23-2023 15:04-0500 Diastolic blood pressure 60 mm[Hg] Dr. Aric Zapien Work Phone: [facility] 06-23-2023 15:04-0500 Heart rate 67 /min Dr. Aric Zapien Work Phone: [facility] 06-23-2023 15:04-0500 Respiratory rate 18 /min Dr. Aric Zapien Work Phone: [facility] 06-23-2023 15:04-0500 SaO2% (BldA) [Mass fraction] 97 % Dr. Aric Zapien Work Phone: [facility] 06-23-2023 15:04-0500 Systolic blood pressure 80 mm[Hg] Dr. Aric Zapien Work Phone: [facility] 12-07-2022 13:46-0400 Body temperature 98.4 [degF] Krislyn Aberegg PA Work Phone: [facility] 12-07-2022 13:46-0400 Body weight 101.7 kg Krislyn Aberegg PA Work Phone: [facility] 12-07-2022 13:46-0400 Diastolic blood pressure 76 mm[Hg] Krislyn Aberegg PA Work Phone: [facility] 12-07-2022 13:46-0400 Heart rate 60 /min Krislyn Aberegg PA Work Phone: [facility] 12-07-2022 13:46-0400 Respiratory rate 18 /min Krislyn Aberegg PA Work Phone: [facility] 12-07-2022 13:46-0400 SaO2% (BldA) [Mass fraction] 96 % Krislyn Aberegg PA Work Phone: [facility] 12-07-2022 13:46-0400 Systolic blood pressure 112 mm[Hg] Krislyn Aberegg PA Work Phone: [facility] 09-30-2022 13:13-0400 Body height 182.9 cm Aric Zapien MD Work Phone: [facility] 09-30-2022 13:13-0400 Body weight 103.87 kg Aric Zapien MD Work Phone: [facility] 09-30-2022 13:13-0400 Diastolic blood pressure 100 mm[Hg] Aric Zapien MD Work Phone: [facility] 09-30-2022 13:13-0400 Heart rate 88 /min Aric Zapien MD Work Phone: [facility] 09-30-2022 13:13-0400 SaO2% (BldA) [Mass fraction] 97 % Aric Zapien MD Work Phone: [facility] 09-30-2022 13:13-0400 Systolic blood pressure 152 mm[Hg] Aric Zapien MD Work Phone: [facility] 04-01-2022 10:36-0400 Body weight 99.79 kg Aric Zapien MD Work Phone: [facility] 04-01-2022 10:36-0400 Diastolic blood pressure 62 mm[Hg] Aric Zapien MD Work Phone: [facility] 04-01-2022 10:36-0400 Heart rate 97 /min Aric Zapien MD Work Phone: [facility] 04-01-2022 10:36-0400 SaO2% (BldA) [Mass fraction] 100 % Aric Zapien MD Work Phone: [facility] 04-01-2022 10:36-0400 Systolic blood pressure 102 mm[Hg] Aric Zpaien MD Work Phone: [facility] 03-09-2022 15:09-0400 Body height 184 cm NA Max PA-C Work Phone: [facility] 03-09-2022 15:09-0400 Body weight 101.15 kg NA Max PA-C Work Phone: [facility] 03-09-2022 15:09-0400 Diastolic blood pressure 74 mm[Hg] NA Max PA-C Work Phone: [facility] 03-09-2022 15:09-0400 Heart rate 82 /min NA Max PA-C Work Phone: [facility] 03-09-2022 15:09-0400 Respiratory rate 12 /min NA Max PA-C Work Phone: [facility] 03-09-2022 15:09-0400 SaO2% (BldA) [Mass fraction] 98 % NA Max PA-C Work Phone: [facility] 03-09-2022 15:09-0400 Systolic blood pressure 104 mm[Hg] NA Max PA-C Work Phone: [facility] 03-08-2022 15:33-0400 Body weight 99.79 kg Aric Huston Jr., MD Work Phone: [facility] 03-08-2022 15:33-0400 Diastolic blood pressure 72 mm[Hg] Aric Huston Jr., MD Work Phone: [facility] 03-08-2022 15:33-0400 Heart rate 93 /min Aric Huston Jr., MD Work Phone: [facility] 03-08-2022 15:33-0400 Respiratory rate 12 /min Aric Huston Jr., MD Work Phone: [facility] 03-08-2022 15:33-0400 SaO2% (BldA) [Mass fraction] 98 % Aric Huston Jr., MD Work Phone: [facility] 03-08-2022 15:33-0400 Systolic blood pressure 100 mm[Hg] Aric Huston Jr., MD Work Phone: [facility] 03-06-2022 12:58-0400 Diastolic blood pressure 90 mm[Hg] [facility] Work Phone: 03-06-2022 12:58-0400 Heart rate 80 /min [facility] Work Phone: 03-06-2022 12:58-0400 Respiratory rate 16 /min [facility] Work Phone: 03-06-2022 12:58-0400 SaO2% (BldA) [Mass fraction] 98 % [facility] Work Phone: 03-06-2022 12:58-0400 Systolic blood pressure 116 mm[Hg] [facility] Work Phone: 03-06-2022 10:03-0400 Body height 187.96 cm [facility] Work Phone: 03-06-2022 10:03-0400 Body mass index (BMI) [Ratio] 28.9 kg/m2 [facility] Work Phone: 03-06-2022 10:03-0400 Body temperature 97.1 [degF] [facility] Work Phone: 03-06-2022 10:03-0400 Body weight 102.1 kg [facility] Work Phone: 09-24-2021 15:24-0400 Body weight 102.51 kg Aric Zapien MD Work Phone: [facility] 09-24-2021 15:24-0400 Diastolic blood pressure 82 mm[Hg] Aric Zapien MD Work Phone: [facility] 09-24-2021 15:24-0400 Heart rate 88 /min Aric Zapien MD Work Phone: [facility] 09-24-2021 15:24-0400 Systolic blood pressure 122 mm[Hg] Aric Zapien MD Work Phone: [facility] Encounters Encounter Date Encounter Type Care Provider Facility Start: 11-27-2024 ambulatory Jigna Bernardoa OLS Facili ty:[facility] Start: 10-31-2024 ambulatory Jigna Bernardoa OLS Facili ty:[facility] Start: 10-25-2024 End: 10-25-2024 Telephone encounter Aric Zapien MD Work Phone: [facility] Comment on above: Letter (No show #2) Start: 10-23-2024 ambulatory [facility] Facility:[facility] Start: 09-26-2024 End: 09-26-[address] Aric Zapien MD Work Phone: [facility] Work Phone: Start: 09-26-2024 End: 09-26-[address] Jigna Brantley MD -[facility] Start: 09-26-2024 End: 09-26-2024 ambulatory [facility] Facility:[facility] Start: 08-27-2024 End: 08-27-[address] Aric Zapien MD Work Phone: [facility] Work Phone: Start: 08-27-2024 End: 08-27-[address] Jigna Brantley MD -[facility] Start: 08-27-2024 End: 08-27-2024 ambulatory [facility] Facility:[facility] Start: 07-23-2024 ambulatory Jigna Ruizi ty:[facility] Start: 07-23-[address] Jigna Brantley MD -[facility] Start: 07-16-2024 End: 08-07-2024 Telephone encounter Aric Zapien MD Work Phone: [facility] Comment on above: Patient Update Start: 07-16-2024 ambulatory Jigna Ruizi ty:[facility] Start: 07-16-[address] Jigna Brantley MD -[facility] Start: 07-12-2024 ambulatory Jigna ALMENDAREZ Facili ty:[facility] Start: 07-12-[address] Jigna Brantley MD -[facility] Start: 07-11-2024 Non-patient / Non-visit Dr. Yann stevens DO -[facility] Work Phone: Start: 07-10-2024 Non-patient / Non-visit Dr. Yann stevens DO [facility] Work Phone: Start: 07-10-2024 ambulatory [facility] Start: 07-10-2024 Non-patient / Non-visit Dr. Cynthia Irby MD -[facility] Start: 07-09-2024 End: 07-11-2024 Evaluation and management of inpatient Dr. Yann Ascencio DO -[facility] Work Phone: Start: 07-09-2024 ambulatory [facility] Start: 07-09-2024 Non-patient / Non-visit Dr. Yann Katz [facility] Work Phone: Start: 06-26-2024 End: 06-26-2024 Telephone encounter Damaris Sotelo MD Work Phone: [facility] Start: 06-25-2024 End: 06-25-2024 Telephone encounter Florinda Stevenson APRN.NURSE REVIEWER Work Phone: [facility] [place] Comment on above: Results Start: 06-22-2024 End: 06-22-2024 Telephone encounter Aric Zapien MD Work Phone: [facility] [place] Comment on above: Patient Question Start: 06-22-2024 End: 06-22-2024 Office outpatient visit 15 minutes Florinda Stevenson GERMAN INSTRUCTOR.NURSE REVIEWER Work Phone: [facility] [place] Comment on above: Type 2 diabetes jorge itus without complication, without long- term current use of insulin (HCC) (Primary Dx); Fall, initial encounter; Screening for lipid disorders; Acute low back pain without sciatica, unspecified back pain laterality Start: 06-22-2024 End: 06-22-2024 ambulatory [facility] Facility:[facility] Start: 06-16-2024 End: 06-22-2024 Telephone encounter Aric Zapien MD Work Phone: [facility] Comment on above: Patient Update Start: 06-13-2024 End: 06-14-2024 Refill Aric Zapien MD Work Phone: [address] [place] [address] Comment on above: Refill Request Start: 05-28-2024 End: 05-28-2024 ambulatory Mayuri Perez [facility] Start: 05-28-2024 End: 05-28-2024 Patient encounter procedure Mayuri Perez MA [facility] Comment on above: Population Health Na vigation Outreach (MCAIP OUTREACH ) Start: 04-18-2024 End: 04-18-2024 [facility] Start: 04-18-2024 End: 04-18-2024 Patient encounter procedure Edward Pleitez [facility] Work Phone: [facility] Start: 03-21-2024 End: 03-23-2024 Telephone encounter Lu Azuljoe ROGER Work Phone: Endocrinology Start: 03-07-2024 End: 03-07-2024 ambulatory Jordy Hernandez MA [facility] Start: 03-07-2024 End: 03-07-2024 Patient encounter procedure Jordy Hernandez MA [facility] Comment on above: Population Health Na vigation Outreach (Jodie Vyas [place] ZAPATA) Start: 12-15-2023 ambulatory [facility]he Friedman [facility] Start: 12-15-2023 Patient encounter procedure Moshe Friedman MA [facility] Comment on above: Population Health Na vigation Outreach (ANTHEM-AWV) Start: 11-24-2023 Telephone encounter Harvey HASSAN [facility] Start: 11-22-2023 End: 11-22-2023 ambulatory RENUKA MAX Facility:[facility] Start: 11-22-2023 End: 11-22-2023 Patient encounter procedure Jaison Max PA-C Work Phone: [facility] Comment on above: 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 Aric Zapien Work Phone: [facility] Work Phone: Start: 06-23-2023 End: 06-23-[address] Aric Zapien Work Phone: [facility] Work Phone: Start: 12-07-2022 End: 12-07-2022 Patient encounter procedure Sarah MARIE Work Phone: [facility] Comment on above: Sore throat (Primary Dx); URI, acute Start: 09-30-2022 End: 09-30-2022 Patient encounter procedure Aric Zapien MD Work Phone: [facility] Comment on above: Seizures (HCC) (Prim michelle [...] 06-18-2022 Refill Aric Zapien MD Work Phone: [facility] [place] Comment on above: Refill Request Start: 06-11-2022 ambulatory Leanna Benavidez RN [facility] Comment on above: DESI CEE RN ( Medication Adherence review per request of payer) Start: 04-27-2022 Telephone encounter Aric Huston MD Work Phone: Neurology Comment on above: Results Start: 04-26-2022 End: 04-26-2022 Subsequent hospital visit by physician [facility] (I-Stat/1.5t) Work Phone: Radiology Comment on above: 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 status epilepticus, unspecified epilepsy type (HCC) [G40.919] Start: 04-12-2022 Telephone encounter Aric Huston MD Work Phone: Neurology Comment on above: Orders Start: 04-12-2022 End: 04-12-2022 Patient encounter procedure Marni Hare OD Work Phone: Ophthalmology Comment on above: Left homonymous infe rior quadrantanopia (Primary Dx); Myopia, bilateral; Presbyopia; Regular astigmatism of left eye; Combined forms of age-related cataract of both eyes; Punctate keratitis, bilateral Start: 04-03-2022 Telephone encounter Jaison Max PA-C Work Phone: [facility] [place] Comment on above: Results Start: 04-02-2022 Telephone encounter Aric Huston MD Work Phone: Neurology Comment on above: Orders Start: 04-01-2022 End: 04-01-2022 Patient encounter procedure Aric Zapien MD Work Phone: [facility] [place] Comment on above: Permanent atrial fib rillation (HCC) (Primary Dx); Seizures (HCC); Primary pulmonary HTN (HCC); Primary hypertension; Mixed hyperlipidemia; Type 2 diabetes mellitus without complication, without long-term current use of insulin (HCC); History of thyroiditis; Enlarged thoracic aorta (HCC); Screening for AAA (abdominal aortic aneurysm) Start: 03-15-2022 Telephone encounter Jaison Max PA-C Work Phone: [facility] Comment on above: Orders Start: 03-09-2022 End: 03-09-2022 Patient encounter procedure Jaison Max PA-C Work Phone: [facility] Comment on above: Medicare annual well ness [...] 03-06-2022 End: 03-06-2022 [facility] Start: 03-04-2022 Refill Aric Zapien MD Work Phone: [facility] Comment on above: Refill Request Start: 02-23-2022 ambulatory [facility] Comment on above: ACJaison CEE RN ( SPC/SUPD rev. per request [facility]) Start: 09-24-2021 End: 09-24-2021 Patient encounter procedure Aric Zapien MD Work Phone: [facility] Comment on above: Permanent atrial fib rillation [...] Zapien MD Work Phone: Internal Medicine [facility] [place] Start: 03-12-2021 End: 03-12-2021 Subsequent hospital visit by physician Jose A [facility] [place] Work Phone: Radiology Comment on above: Acute [...] Gutierrez.RESULTS READ BACK BY . Start: 11-22-2023 Lailaihui-utoopia COVI D-19 VACCINE ( SEASON) AGE 12+ YR M Leonidas Max PA-C Work Phone: Start: 11-22-2023 Adult depression scr eening assessment Xr [place] Work Phone: Start: 12-07-2022 STREP A MOLECULAR (POC) Mikki Rodriguez APRN.NURSE REVIEWER Work Phone: Start: 04-26-2022 Mra head w/o [...] RSV Vaccine (1 - 1-dose 75+ series) [facility] Start: 09-24-2026 PROSTATE CANCER SCREENING DISCUSSION PROSTATE CANCER SCREENING DISCUSSION [facility] Start: 09-24-2026 Prostate specific antigen measurement Prostate Cancer Screening Discussion [facility] Start: 06-22-2025 Annual PCP Team Chronic Disease Visit Annual PCP Team Chronic Disease Visit [facility] Start: 06-22-2025 BP Controlled (<130/80) BP Controlled (<130/80) [facility] in Start: 06-22-2025 Complete blood count Hemoglobin/Hematocrit [facility] Start: 06-22-2025 Creatinine measurement Serum Creatinine [facility] Start: 06-22-2025 Hepatitis B screening Urine Albumin:Creatinine Ratio [facility] Start: 06-22-2025 Hepatitis B surface antibody level LDL Cholesterol [facility] Start: 01-28-2025 Influenza vaccination Influenza Vaccine (Season Ended) [facility] Start: 12-20-2024 Hemoglobin A1c measurement HbA1C [facility] Start: 11-21-2024 Annual PCP Team Chronic Disease Visit Annual PCP Team Chronic Disease Visit [facility] Start: 11-21-2024 Depression Screening Depression Screening [facility] Start: 11-21-2024 Diabetic foot examination Diabetic Foot Exam [facility] Start: 07-12-2024 End: 07-12-2024 Patient encounter procedure 07/12/2024 1:20 PM EST Office Visit [facility] [place] [address] [facility] [address] Florinda Stevenson APRN.NURSE REVIEWER [address] [facility] [place] [address] 2 week follow up [facility] Comment on above: 2 week follow up Start: 07-11-2024 Patient discharge [facility] Start: 07-10-2024 Care planning and problem solving actions [facility] Start: 07-10-2024 [facility] Start: 07-10-2024 End: 07-10-2024 Patient encounter procedure [facility] Comment on above: Lumbar x-ray needs order L1 Fx Start: 07-10-2024 Oxygen therapy [facility] Start: 07-09-2024 Care planning and problem solving actions [facility] Start: 07-09-2024 End: 07-09-2024 Following clinical pathway protocol [facility] Start: 07-09-2024 Assessment of risk of venous thromboembolism [facility] Start: 07-09-2024 Care regimes management [facility] Start: 07-09-2024 Insertion of catheter into peripheral vein [facility] Start: 07-09-2024 Measuring intake and output [facility] Start: 07-09-2024 Notification of physician [facility] Start: 07-09-2024 Providing care according to standard [facility] Start: 07-09-2024 Provision of activity privileges [facility] Start: 07-09-2024 Referral to occupational therapist [facility] Start: 07-09-2024 Referral to service [facility] Start: 07-09-2024 End: 07-09-2024 [facility] Start: 07-09-2024 Admission procedure [facility] Start: 07-09-2024 Patient referral to dietitian [facility] Start: 06-22-2024 End: 09-21-2024 CBC W Auto Differential panel - Blood [facility] Comment on above: Expected: 06/22/2024, Expires: Start: 06-22-2024 End: 09-21-2024 Comprehensive metabolic 2000 panel - Serum or Plasma [facility] Comment on above: Expected: 06/22/2024, Expires: Start: 06-22-2024 End: 09-21-2024 Ferritin [Mass/volume] in Serum or Plasma [facility] Comment on above: Expected: 06/22/2024, Expires: Start: 06-22-2024 End: 09-21-2024 Hemoglobin A1c in Blood [facility] [employer] Work Phone: Comment on above: Expected: 06/22/2024, Expires: Start: 06-22-2024 End: 09-21-2024 Iron and Iron binding capacity panel - Serum or Plasma [facility] Comment on above: Expected: 06/22/2024, Expires: Start: 06-22-2024 End: 09-21-2024 LIPID PANEL, NONFASTING [facility] Comment on above: Expected: 06/22/2024, Expires: Start: 06-22-2024 End: 09-21-2024 Magnesium [Mass/volume] in Serum or Plasma [facility] Comment on above: Expected: 06/22/2024, Expires: Start: 06-22-2024 End: 09-21-2024 Microalbumin/Creatinine [Mass Ratio] in Urine [facility] Comment on above: Expected: 06/22/2024, Expires: Start: 06-21-2024 End: 06-21-2024 Patient encounter procedure 06/21/2024 11:00 AM EST Office Visit [facility] [id number] [place] [address] Aric Zapien MD [address] [place] [address] FALL ON ICE [facility] Comment on above: FALL ON ICE Start: 05-30-2024 Advance Directive Discussion Advance Directive Discussion [facility] Start: 05-25-2024 End: 05-25-2024 Patient encounter procedure [facility] Comment on above: 6 month follow up 6 month follow up - HTN focus [place] Start: 05-24-2024 Annual PCP Team Chronic Disease Visit Annual PCP Team Chronic Disease Visit [facility] Start: 05-24-2024 BP Controlled (<130/80) BP Controlled (<130/80) [facility] Start: 05-24-2024 Complete blood count Hemoglobin/Hematocrit [facility] Start: 05-24-2024 Creatinine measurement Serum Creatinine [facility] Start: 05-24-2024 Hepatitis B screening Urine Albumin:Creatinine Ratio [facility] Start: 05-24-2024 Hepatitis B surface antibody level LDL Cholesterol [facility] Start: 02-22-2024 End: 05-23-2024 Hemoglobin A1c in Blood HEMOGLOBIN A1C Lab Routine Type 2 diabetes mellitus without complication, without long-term current use of insulin (HCC) Expected: 02/22/2024, Expires: 05/23/2024 [facility] Comment on above: Expected: 02/22/2024, Expires: Start: 01-29-2024 Covid-19 Vaccine ( season) Covid-19 Vaccine () [facility] Start: 01-29-2024 Influenza vaccination Influenza Vaccine (#1) [facility] Start: 12-08-2023 BP CONTROLLED (<130/80) BP CONTROLLED (<130/80) [facility] Start: 11-23-2023 Hemoglobin A1c measurement HbA1C [facility] Start: 11-22-2023 End: 11-22-2023 Patient encounter procedure 11/22/2023 3:40 PM EDT Office Visit [facility] [address] [place] [address] Jaison Max PA-C [address] [place] [address] 6 mth f/u [facility] Comment on above: 6 mth f/u Start: 11-22-2023 End: 02-21-2024 CBC W Auto Differential panel - Blood COMPLETE BLOOD COUNT AND DIFFERENTIAL Lab Routine Seizures (HCC) Mitral valve insufficiency, unspecified etiology Non-rheumatic tricuspid valve insufficiency Left atrial enlargement 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 Pulmonary hypertension (HCC) Enlarged thoracic aorta (HCC) Primary hypertension Chronic renal failure (CRF), stage 3a (HCC) Type 2 diabetes mellitus without complication, without long-term current use of insulin (HCC) Adjustment disorder with mixed emotional features Anxiety state Expected: 11/22/2023, Expires: 02/21/2024 [facility] Work Phone: Comment on above: Expected: 11/22/2023, Expires: 4 Start: 11-22-2023 End: 02-21-2024 Comprehensive metabolic 2000 panel - Serum or Plasma COMPREHENSIVE METABOLIC PANEL Lab Routine Seizures (HCC) Mitral valve insufficiency, unspecified etiology Non-rheumatic tricuspid valve insufficiency Left atrial enlargement 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 (HCC) 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 of 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 Pulmonary hypertension (HCC) Enlarged thoracic aorta (HCC) Primary hypertension Mixed hyperlipidemia Chronic renal failure (CRF), stage 3a (HCC) Type 2 diabetes mellitus without complication, without long-term current use of insulin (HCC) Adjustment disorder with mixed emotional features Anxiety state Expected: 11/22/2023, Expires: 02/21/2024 [facility] Comment on above: Expected: 11/22/2023, Expires: 4 Start: 11-22-2023 End: 02-21-2024 Lipid 1996 panel - Serum or Plasma LIPID PANEL BASIC Lab Routine Mitral valve insufficiency, unspecified etiology Non-rheumatic tricuspid valve insufficiency Left atrial enlargement 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 (HCC) 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 of 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 Pulmonary hypertension (HCC) Enlarged thoracic aorta (HCC) Primary hypertension Mixed hyperlipidemia Type 2 diabetes mellitus without complication, without long-term current use of insulin (HCC) Expected: 11/22/2023, Expires: 02/21/2024 [facility] Comment on above: Expected: 11/22/2023, Expires: Start: 10-15-2023 ANNUAL PCP TEAM CHRONIC DISEASE VISIT ANNUAL PCP TEAM CHRONIC DISEASE VISIT [facility] Start: 10-01-2023 3 comp foot exam completed DIABETIC FOOT EXAM [facility] Start: 10-01-2023 ANNUAL PCP TEAM CHRONIC DISEASE VISIT ANNUAL PCP TEAM CHRONIC DISEASE VISIT [facility] Start: 10-01-2023 Diabetic foot examination Diabetic Foot Exam [facility] Start: 10-01-2023 Urine microalbumin profile [facility] Comment on above: Postponed from 01/04/1976 (Declined at t his time) Start: 09-23-2023 Covid-19 Vaccine () Covid-19 Vaccine () [facility] Start: 05-30-2023 Advance Directive Discussion Advance Directive Discussion [facility] Start: 05-30-2023 Behavioral Health Screening Behavioral Health Screening [facility] Start: 04-12-2023 Glaucoma screening Dilated Retinal Exam [facility] Start: 04-12-2023 Hepatitis C antibody, confirmatory test DILATED RETINAL EXAM [facility] Start: 04-02-2023 Hemoglobin A1c/Hemoglobin.total in Blood HBA1C [facility] Start: 04-01-2023 ANNUAL PCP TEAM CHRONIC DISEASE VISIT ANNUAL PCP TEAM CHRONIC DISEASE VISIT [facility] Start: 04-01-2023 BP CONTROLLED (<130/80) BP CONTROLLED (<130/80) [facility] Start: 04-01-2023 Hepatitis B screening URINE ALBUMIN:CREATININE RATIO [facility] Start: 04-01-2023 Hepatitis B surface antibody level LDL CHOLESTEROL [facility] Start: 03-09-2023 ANNUAL PCP TEAM CHRONIC DISEASE VISIT ANNUAL PCP TEAM CHRONIC DISEASE VISIT [facility] Start: 03-09-2023 BP CONTROLLED (<130/80) BP CONTROLLED (<130/80) [facility] Start: 03-08-2023 BP CONTROLLED (<130/80) BP CONTROLLED (<130/80) [facility] Start: 01-28-2023 Covid-19 Vaccine () Covid-19 Vaccine () [facility] Start: 01-28-2023 Influenza vaccination [facility] Start: 12-07-2022 End: 12-21-2022 Influenza virus A and B RNA and SARS-CoV-2 (COVID-19) N gene panel - Respiratory specimen by CRYSTAL with probe detection [facility] Work Phone: Comment on above: Expected: 12/07/2022, Expires: Start: 09-30-2022 End: 11-30-2022 Comprehensive metabolic 2000 panel - Serum or Plasma [facility] Work Phone: Comment on above: Expected: 09/30/2022, Expires: Start: 09-30-2022 End: 11-30-2022 T4/FTI/T4U [facility] Work Phone: Comment on above: Expected: 09/30/2022, Expires: Start: 09-30-2022 End: 11-30-2022 Thyrotropin [Units/volume] in Serum or Plasma [facility] Work Phone: Comment on above: Expected: 09/30/2022, Expires: Start: 09-30-2022 End: 11-30-2022 Triiodothyronine (T3) [Mass/volume] in Serum or Plasma [facility] Work Phone: Comment on above: Expected: 09/30/2022, Expires: Start: 09-29-2022 Hemoglobin A1c/Hemoglobin.total in Blood HBA1C [facility] Start: 09-24-2022 ANNUAL PCP TEAM CHRONIC DISEASE VISIT ANNUAL PCP TEAM CHRONIC DISEASE VISIT [facility] Start: 06-09-2022 End: 08-09-2022 Hemoglobin A1c in Blood HGB A1C Lab Routine Hyperglycemia Expected: 06/09/2022, Expires: 08/09/2022 [facility] Work Phone: Comment on above: Expected: 06/09/2022, Expires: Start: 05-30-2022 ADVANCE DIRECTIVE DISCUSSION ADVANCE DIRECTIVE DISCUSSION [facility] Start: 05-30-2022 DEPRESSION ASSESSMENT DEPRESSION ASSESSMENT [facility] Start: 04-14-2022 3 comp foot exam completed DIABETIC FOOT EXAM [facility] Start: 04-09-2022 End: 06-09-2022 Valproate [Mass/volume] in Serum or Plasma VALPROIC A/DEPAKENE Lab Routine Nonintractable epilepsy without status epilepticus, unspecified epilepsy type (HCC) Expected: 04/09/2022, Expires: 06/09/2022 [facility] Work Phone: Comment on above: Expected: 04/09/2022, Expires: 3 Start: 04-03-2022 End: 06-03-2022 Basic metabolic 2000 panel - Serum or Plasma BASIC METABOLIC PNL Lab Routine Elevated serum creatinine Expected: 04/03/2022, Expires: 06/03/2022 [facility] Work Phone: Comment on above: Expected: 04/03/2022, Expires: 3 Start: 04-01-2022 End: 06-01-2022 LIPID PANEL, NONFASTING [facility] Work Phone: Comment on above: Expected: 04/01/2022, Expires: 3 Start: 04-01-2022 End: 06-01-2022 Thyrotropin [Units/volume] in Serum or Plasma [facility] Work Phone: Comment on above: Expected: 04/01/2022, Expires: 3 Start: 03-25-2022 ANNUAL PCP TEAM CHRONIC DISEASE VISIT ANNUAL PCP TEAM CHRONIC DISEASE VISIT [facility] Start: 03-25-2022 BP CONTROLLED (<130/80) BP CONTROLLED (<130/80) [facility] Start: 03-25-2022 Hepatitis B surface antibody level LDL CHOLESTEROL [facility] Start: 03-09-2022 End: 05-09-2022 ALBUMIN/CREAT RATIO RND UR ALBUMIN/CREAT RATIO RND UR Lab Routine Hyperglycemia Expected: 03/09/2022, Expires: 05/09/2022 [facility] Work Phone: Comment on above: Expected: 03/09/2022, Expires: 2 Start: 03-09-2022 End: 05-09-2022 Hepatitis C virus Ab [Presence] in Serum HEP C AB IA W/CONF SCRN Lab Routine Encounter for hepatitis C screening test for low risk patient Expected: 03/09/2022, Expires: 05/09/2022 [facility] Work Phone: Comment on above: Expected: 03/09/2022, Expires: 2 Start: 03-08-2022 End: 05-08-2022 CBC W Auto Differential panel - Blood CBC + DIFF Lab Routine 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 status epilepticus, unspecified epilepsy type (HCC) Expected: 03/08/2022, Expires: 05/08/2022 [facility] Work Phone: Comment on above: Expected: 03/08/2022, Expires: 2 Start: 03-08-2022 End: 05-08-2022 Comprehensive metabolic 2000 panel - Serum or Plasma COMP METABOLIC PANEL Lab Routine 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 status epilepticus, unspecified epilepsy type (HCC) Expected: 03/08/2022, Expires: 05/08/2022 [facility] Work Phone: Comment on above: Expected: 03/08/2022, Expires: 2 Start: 03-08-2022 End: 05-08-2022 Valproate [Mass/volume] in Serum or Plasma VALPROIC A/DEPAKENE Lab Routine 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 status epilepticus, unspecified epilepsy type (HCC) Expected: 03/08/2022, Expires: 05/08/2022 [facility] Work Phone: Comment on above: Expected: 03/08/2022, Expires: 2 Start: 01-28-2022 Influenza vaccination INFLUENZA (#1) [facility] Start: 2022 ADVANCE DIRECTIVE DISCUSSION ADVANCE DIRECTIVE DISCUSSION [facility] Start: 09-24-2021 End: 11-24-2021 ALBUMIN/CREAT RATIO RND UR ALBUMIN/CREAT RATIO RND UR Lab Routine Type 2 diabetes mellitus without complication, without long-term current use of insulin (HCC) Expected: 09/24/2021, Expires: 11/24/2021 [facility] Work Phone: Comment on above: Expected: 09/24/2021, Expires: 2 Start: 09-24-2021 End: 11-24-2021 CBC W Auto Differential panel - Blood CBC + DIFF Lab Routine Type 2 diabetes mellitus without complication, without long-term current use of insulin (HCC) Expected: 09/24/2021, Expires: 11/24/2021 [facility] Work Phone: Comment on above: Expected: 09/24/2021, Expires: 2 Start: 09-24-2021 End: 11-24-2021 Comprehensive metabolic 2000 panel - Serum or Plasma COMP METABOLIC PANEL Lab Routine Type 2 diabetes mellitus without complication, without long-term current use of insulin (HCC) Expected: 09/24/2021, Expires: 11/24/2021 [facility] Work Phone: Comment on above: Expected: 09/24/2021, Expires: 2 Start: 09-24-2021 End: 11-24-2021 Hemoglobin A1c/Hemoglobin.total in Blood HGB A1C Lab Routine Type 2 diabetes mellitus without complication, without long-term current use of insulin (HCC) Expected: 09/24/2021, Expires: 11/24/2021 [facility] Work Phone: Comment on above: Expected: 09/24/2021, Expires: 2 Start: 09-24-2021 End: 11-24-2021 Hepatitis C virus Ab [Presence] in Serum HEP C AB IA W/CONF SCRN Lab Routine Need for hepatitis C screening test Expected: 09/24/2021, Expires: 11/24/2021 [facility] Work Phone: Comment on above: Expected: 09/24/2021, Expires: 2 Start: 09-24-2021 End: 11-24-2021 HIV 1+2 Ab [Presence] in Serum or Plasma by Immunoassay HIV 1 2 COMBO(AG/AB),WITH REFLEX TO DIFFERENTIATION Lab Routine Screening for HIV (human immunodeficiency virus) Expected: 09/24/2021, Expires: 11/24/2021 [facility] Work Phone: Comment on above: Expected: 09/24/2021, Expires: 2 Start: 09-24-2021 End: 11-24-2021 LIPID PANEL BASIC LIPID PANEL BASIC Lab Routine Type 2 diabetes mellitus without complication, without long-term current use of insulin (HCC) Expected: 09/24/2021, Expires: 11/24/2021 [facility] Work Phone: Comment on above: Expected: 09/24/2021, Expires: 2 Start: 09-24-2021 End: 11-24-2021 VALPROIC A/DEPAKENE VALPROIC A/DEPAKENE Lab Routine Seizures (HCC) Expected: 09/24/2021, Expires: 11/24/2021 [facility] Work Phone: Comment on above: Expected: 09/24/2021, Expires: 2 Start: 09-23-2021 Hemoglobin A1c/Hemoglobin.total in Blood HBA1C [facility] Start: 09-08-2021 End: 11-08-2021 ALBUMIN/CREAT RATIO RND UR ALBUMIN/CREAT RATIO RND UR Lab Routine Type 2 diabetes mellitus without complication, without long-term current use of insulin (HCC) Expected: 09/08/2021, Expires: 11/08/2021 [facility] Work Phone: Comment on above: Expected: 09/08/2021, Expires: 2 Start: 09-08-2021 End: 11-08-2021 Hemoglobin A1c/Hemoglobin.total in Blood HGB A1C Lab Routine Type 2 diabetes mellitus without complication, without long-term current use of insulin (HCC) Expected: 09/08/2021, Expires: 11/08/2021 [facility] Work Phone: Comment on above: Expected: 09/08/2021, Expires: 2 Start: 09-08-2021 End: 11-08-2021 SCHEDULE LAB TESTING SCHEDULE LAB TESTING Lab Routine Expected: 09/08/2021, Expires: 11/08/2021 [facility] Work Phone: Comment on above: Expected: 09/08/2021, Expires: 2 Start: 07-14-2021 COVID-19 VACCINE (3 - Booster for Moderna series) COVID-19 VACCINE (3 - Booster for Moderna series) [facility] Start: 05-30-2021 DEPRESSION ASSESSMENT DEPRESSION ASSESSMENT [facility] Start: 04-08-2021 COVID-19 VACCINE (3 - Booster for Moderna series) COVID-19 VACCINE (3 - Booster for Moderna series) [facility] Start: 04-08-2021 COVID-19 VACCINE (3 - Moderna series) COVID-19 VACCINE (3 - Moderna series) [facility] Start: 07-23-2020 PROSTATE CANCER SCREENING DISCUSSION PROSTATE CANCER SCREENING DISCUSSION [facility] Start: 03-01-2019 PNEUMOCOCCAL: 65+ (2 - PCV) PNEUMOCOCCAL: 65+ (2 - PCV) [facility] Start: 03-02-2017 Adult depression screening assessment DEPRESSION SCREENING [facility] Start: 2017 Hepatitis B Vaccine (1 of 3 - Risk 3-dose series) Hepatitis B Vaccine (1 of 3 - Risk 3-dose series) [facility] Start: 2017 RSV Vaccine (1 - 1-dose 60+ series) RSV Vaccine (1 - 1-dose 60+ series) [facility] Start: 2002 COLOGUARD (FIT-DNA) COLOGUARD (FIT-DNA) [facility] Start: 2002 Colonoscopy COLONOSCOPY [facility] Start: 2002 COLORECTAL CANCER SCREENING COLORECTAL CANCER SCREENING [facility] Start: [address] COLONOGRAPHY [facility] Start: 2002 FECAL OCCULT BLOOD FECAL OCCULT BLOOD [facility] Start: 2002 Screening for malignant neoplasm of colon [facility] Start: 2002 SIGMOIDOSCOPY SIGMOIDOSCOPY [facility] Start: 01-04-1976 Urine microalbumin profile [facility] Start: 1975 BP CONTROLLED (<130/80) BP CONTROLLED (<130/80) [facility] Start: 1975 HEPATITIS C SCREENING HEPATITIS C SCREENING [facility] Start: 1975 HIV SCREENING HIV SCREENING [facility] Start: 1967 3 comp foot exam completed DIABETIC FOOT EXAM [facility] Start: 1967 Hepatitis B screening URINE ALBUMIN:CREATININE RATIO [facility] Start: 1967 Hepatitis C antibody, confirmatory test DILATED RETINAL EXAM [facility] Start: 1962 COVID-19 VACCINE (1) COVID-19 VACCINE (1) [facility] Start: 1957 ABDOMINAL AORTIC ANEURYSM SCREENING ABDOMINAL AORTIC ANEURYSM SCREENING [facility] Start: 1957 Abdominal aortic aneurysm screening Abdominal Aortic Aneurysm Screening [facility] COLOGUARD COLOGUARD Lab Ro utine Screening for colon cancer Ordered: 09/24/2021 [facility] Work Phone: Comment on above: Ordered: 09/24/2021 COLOGUARD COLOGUARD Lab Ro utine Screening for colon cancer Ordered: 09/30/2022 [facility] Work Phone: Comment on above: Ordered: 09/30/2022 COLOGUARD COLOGUARD Lab Ro utine Screening for colon cancer Ordered: 11/22/2023 [facility] Comment on above: Ordered: 11/22/2023 End: 03-10-2023 Echocardiography ECHO Cardiology Routine 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 (HCC) Non-rheumatic tricuspid valve insufficiency Mitral valve insufficiency, unspecified etiology Primary pulmonary HTN (HCC) Enlarged thoracic aorta (HCC) 1 Occurrences starting 03/10/2022 until 03/10/2023 [facility] Work Phone: Comment on above: 1 Occurrences starting 03/10/2022 until 03/10/2023 End: 03-08-2023 EPIL EEG ROUTINE EPIL EEG ROUTINE NEUROLOGY Routine 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 status epilepticus, unspecified epilepsy type (HCC) 1 Occurrences starting 03/08/2022 until 03/08/2023 [facility] Work Phone: Comment on above: 1 Occurrences starting 03/08/2022 until 03/08/2023 End: 05-12-2023 Mra head w/o contrst material MRA BRAIN WO IVCON Radiology Routine Other symptoms and signs involving the nervous system 1 Occurrences starting 04/12/2022 until 05/12/2023 [facility] Work Phone: Comment on above: 1 Occurrences starting 04/12/2022 until 05/12/2023 End: 05-12-2023 Mra neck w/o contrst material MRA CAROTID WO IVCON Radiology Routine Other symptoms and signs involving the nervous system 1 Occurrences starting 04/12/2022 until 05/12/2023 [facility] Work Phone: Comment on above: 1 Occurrences starting 04/12/2022 until 05/12/2023 End: 04-07-2023 Mri brain brain stem w/o contrast material MRI BRAIN WO IVCON Radiology Routine 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 status epilepticus, unspecified epilepsy type (HCC) 1 Occurrences starting 03/08/2022 until 04/07/2023 [facility] Work Phone: Comment on above: 1 Occurrences starting 03/08/2022 until 04/07/2023 Patient Education ED, Migraine (Classical ) [facility] Work Phone: Patient referral [facility] Work Phone: [employer] COVI D-19 BIVALENT BOOSTER VACCINE, AGE 12+ YR [employer] COVID-19 BIVALENT BOOSTER VACCINE, AGE 12+ YR Immunization/Injection Routine Need for COVID-19 vaccine Ordered: 03/09/2022 [facility] Work Phone: Comment on above: Ordered: 03/09/2022 End: 10-01-2023 PVR LEG [facility]AM VAS LAB [facility] Vascular Lab Routine Peripheral vascular disease (HCC) 1 Occurrences starting 09/30/2022 until 10/01/2023 [facility] Work Phone: Comment on above: 1 Occurrences starting 09/30/2022 until 10/01/2023 End: 12-21-2024 US Abdominal Aorta for screening US SCREENING FOR AAA Radiology Routine Screening for abdominal aortic aneurysm 1 Occurrences starting 11/22/2023 until 12/21/2024 [facility] Comment on above: 1 Occurrences starting 11/22/2023 until 12/21/2024 End: 05-01-2023 Us abdominal aorta real time screen study aaa US SCREENING FOR AAA Radiology Routine Screening for AAA (abdominal aortic aneurysm) 1 Occurrences starting 04/01/2022 until 05/01/2023 [facility] Work Phone: Comment on above: 1 Occurrences starting 04/01/2022 until 05/01/2023 End: 10-30-2023 Us abdominal aorta real time screen study aaa US SCREENING FOR AAA Radiology Routine Screening for AAA (abdominal aortic aneurysm) 1 Occurrences starting 09/30/2022 until 10/30/2023 [facility] Work Phone: Comment on above: 1 Occurrences starting 09/30/2022 until 10/30/2023 [facility] Immunizations Immunization Date Immunization Notes Care Provider Cecil alvarez 07-10-2024 influenza, high dose seasonal, preservative-free Dr. Aric Zapien MD Work Phone: [facility] 11-28-2023 COVID-19 vaccine, ag e 12+ yr, season ([employer]) CYNTHIA Max PA-C Work Phone: [facility] 05-24-2023 COVID-19 vaccine, ag e 12+ yr, season ([employer]) Aric Zapien MD Work Phone: [facility] 05-24-2023 influenza (HD-IIV4) vaccine, age 65+ yr, high dose, quadrivalent, PF (FLUZONE HIGH-DOSE) Aric Zapien MD Work Phone: [facility] 05-24-2023 influenza virus vaccine, unspecified formulation CYNTHIA Max PA-C Work Phone: [facility] 03-12-2022 influenza, high dose seasonal, preservative-free Aric Zapien MD Work Phone: [facility] 03-12-2022 influenza virus vaccine, unspecified formulation Mri (I-Stat/1.5t) Work Phone: [facility] 03-09-2022 pneumococcal Conjuga te, unspecified formulation NA Max VICKY Work Phone: [facility] Work Phone: 03-09-2022 pneumococcal (PCV20) vaccine, 20 valent (PREVNAR 20) NA Max ALESSANDRO Work Phone: [facility] Work Phone: 03-25-2021 influenza, injectabl e, quadrivalent, contains preservative Aric Zapien MD Work Phone: [facility] 02-11-2021 COVID-19 original vaccine, full dose, monovalent (MODERNA) Aric Zapien MD Work Phone: [facility] 01-14-2021 COVID-19 original vaccine, full dose, monovalent (MODERNA) Aric Zapien MD Work Phone: [facility] 02-29-2020 influenza, high dose seasonal, preservative-free Aric Zapien MD Work Phone: [facility] 02-29-2020 influenza, injectabl e, quadrivalent, preservative free Aric Zapien MD Work Phone: [facility] 02-29-2020 zoster vaccine recombinant Aric Zapien MD Work Phone: [facility] 10-31-2019 zoster vaccine recombinant Aric Zapien MD Work Phone: [facility] 03-31-2019 Influenza, injectabl e, Madin Brigitte Canine Kidney, preservative free, quadrivalent Aric Zapien MD Work Phone: [facility] 03-31-2019 influenza, seasonal, injectable Aric Zapien MD Work Phone: [facility] 03-01-2018 influenza, injectabl e, quadrivalent, preservative free Aric Zapien MD Work Phone: [facility] 03-01-2018 pneumococcal polysaccharide vaccine, 23 valent Aric Zapien MD Work Phone: [facility] 03-22-2017 influenza, seasonal, injectable Aric Zapien MD Work Phone: [facility] 03-22-2017 influenza, seasonal, injectable, preservative free Aric Zapien MD Work Phone: [facility] 04-29-2015 influenza, injectabl e, quadrivalent, preservative free Dr. Aric Zapien Work Phone: [facility] 04-29-2015 influenza, seasonal, injectable [facility] Work Phone: 04-29-2015 influenza, seasonal, injectable, preservative free Aric Zapien MD Work Phone: [facility] NEGATED: Highlighted row has not occurred!03-09-2022 COVID-19 booster vaccine, age 12+ yr, bivalent ([email or web address]) NA Mansoor PERRY Work Phone: [facility] Work Phone: Comment on above: Deferred: Postponed Payers Date Payer Category Payer Self-pay [id number] 2023 Medicare (Managed Care) [facility] O [id number] 2023 Unknown [employer] [facility] [employer]AGE O [id number] 2023-Present [phone] [address] [place], [place] [address] [facility] [id number] 2023 Medicare [id number] 2023 Unknown [id number] 2019 Medicaid MEDICAID [facility] MEDICAID [id number] 2019-Present [phone] [address] [place] [address] Medicaid [id number] 2018 Medicare [facility] MEDICARE [facility] DUAL COMPLETE HMO SNP [id number] 2018-Present [phone] [address] [place] [address] Medicare [id number] 2018 Medicare [id number] 2017 Medicaid [id number]. [id number] 2017 Medicaid [id number] Medicare MEDICARE PART A B [id number] Unknown [employer] [id number] Unknown [facility] MCRDUAL COMP HMO [id number] Unknown [place] AUTH REQUIR ED SEE NOTE [id number] Unknown C MCRDUAL COMPLETE [id number] Unknown [id number]. 462 Unknown [id number] 2.16.840.1.443863.3.579.2. 462 Unknown [id number] 2.16.840.1.143258.3.579.2. 462 Unknown [id number] 2.16.840.1.407585.3.579.2. 462 Unknown [id number] 2.16.840.1.588533.3.579.2. 462 Unknown [id number] 2.16.840.1.418233.3.579.2. 462 Unknown [id number] 2.16.840.1.723734.3.579.2. 462 Unknown [id number] 2.16.840.1.932394.3.579.2. 462 Unknown [id number] 2.16.840.1.249722.3.579.2. 462 Unknown [id number] 2.16.840.1.854334.3.579.2. 462 Unknown [id number] 2.16.840.1.980471.3.579.2. 462 Unknown [id number] 2.16.840.1.446716.3.579.2. 462 Unknown [id number] 2.16.840.1.225195.3.579.2. 462 Unknown [id number] 2.16.840.1.584900.3.579.2. 462 Social History Date Type Detail Facility Start: 07-23-2015 End: 03-08-2022 Tobacco smoking status NHIS Ex-smoker [facility] Start: 07-23-2015 End: 03-08-2022 Tobacco use and exposure Smokeless tobacco non-user [facility] Start: 04-14-2021 End: 06-22-2024 Alcohol intake Not Asked [facility] Start: 07-23-2015 End: 03-08-2022 Tobacco Comment Quit in 2005 [facility] Start: 1955 Sex Assigned At Not on file [facility] Start: 02-10-2021 End: 04-01-2022 Exposure to SARS-CoV-2 (event) Not sure [facility] History of tobacco use Current smoker [facility] Start: 02-15-2022 End: 02-25-2022 Exposure to SARS-CoV-2 (event) Unable to assess [facility] Work Phone: Start: 03-06-2022 End: 06-23-2023 Tobacco smoking status NHIS Unknown if ever smoked [facility] Start: 09-15-2014 None [facility] Start: 09-15-2014 Alone;- [facility] Start: 04-27-2015 Non-smoker [facility] Start: 1955 Sex Assigned At Male [facility] Start: 09-30-2022 End: 12-07-2022 History of Social function [facility] Work Phone: Start: 09-30-2022 End: 12-07-2022 Tobacco use panel [facility] Work Phone: Adult Depression Screening Assessment 0 [facility] Work Phone: Start: 09-11-2024 Sex Male (finding) [facility] Medical Equipment Procedure Code Equipment Code Equipment Origin al Text Equipment Identifier Dates Test blood sugar (s) 1 times daily. Dx: Type 2 DM - Uncontrolled E11.65 Insulin: No [id number] Start: 04-01-2022 Comment on above: Test blood sugar(s) 1 times daily. Dx: Type 2 DM - Uncontrolled E11.65 Insulin: No Goals Date Patient Goal Desired Activity /State Functional Status Date Assessment Result Facility 07-11-2024 Functional status Chair [facility] Work Phone: 07-10-2024 Functional status Tolerates Activity Well [facility] Work Phone: 03-09-2022 Are you deaf, or do you have serious difficulty hearing No [facility] 03-09-2022 Are you blind, or do you have serious difficulty seeing, even when wearing glasses No [facility] 03-09-2022 Do you have serious difficulty walking or climbing stairs No [facility] 03-09-2022 Do you have difficul ty dressing or bathing No [facility] 03-09-2022 Because of a physica l, mental, or emotional condition, do you have difficulty doing errands alone such as visiting a physician's office or shopping No [facility] Mental Status Date Assessment Result Facility 07-11-2024 Cognitive function Voice/Name [facility] Work Phone: 03-09-2022 Because of a physica l, mental, or emotional condition, do you have serious difficulty concentrating, remembering, or making decisions Yes [facility] 03-06-2022 Cognitive function Level Of Cons ciousness Awake;Alert;Appropriate;Fol lows Commands;Responds to vocal stimuli [facility] Work Phone: Clinical Notes 06-27-2020 to 10-25-2024 Telephone Encounter - Nida Root LPN - 10/25/2024 12:23 PM EDTTelephone Encounter - Nida Root LPN - 10/25/2024 12:23 PM EDTTelephone Encounter - Felicita Bolden MA - 07/16/2024 3:25 PM EST Note Date & Type Note Facility 10-25-2024 Telephone encount er Note No show letter #2 sent to patient. [facility] 10-25-2024 Miscellaneous Notes Formattin g of this note might be different from the original. No show letter #2 sent to patient. documented in this encounter [facility] 07-16-2024 Telephone encount er Note Patient canceled his appointment on 07/12/24 with Isa Stevenson. He was discharged from [facility] on 07/11/24 DX: AFIB RVR, debility. Called and spoke with ex- Flor, his emergency contact, and she said he is in [facility] for rehab with the hopes for permanent placement afterwards. Felicita Bolden MA July 16, 2024 3:30 PM [facility] 07-16-2024 Miscellaneous Notes Formattin g of this note might be different from the original. Patient canceled his appointment on 07/12/24 with Isa Stevenson. He was discharged from [facility] on 07/11/24 DX: AFIB RVR, debility. Called and spoke with ex- Flor, his emergency contact, and she said he is in [facility] for rehab with the hopes for permanent placement afterwards. Felicita Bolden MA July 16, 2024 3:30 PM documented in this encounter [facility] 07-11-2024 Note [facility] Medical Records Department [address] [place] [address] Discharge Summary 07/11/24 0914 MR#: [id number] Acct: [id number] Name: REINA SULLIVAN Rep #: [id number] : 1955 69 From: Yann Ascencio DO PCP: Dr. Aric Zapien MD Status:ADM IN Location: [place] [address] Providers Date of Admission: 07/09/24 Primary Care [...] Referring Physician: Aric Zapien Performed By: Damaris Dudley, RVT Echocardiogram 07/09/24 16:36 Interpretation Summary The estimated ejection fraction is 55 %. No evidence for diastolic dysfunction. The left atrium is severely enlarged. Mild (1+) mitral valve insufficiency. Ordering Physician: Yann Ascencio Referring Physician: Aric Zapien Performed By: Ann-Marie Cao RDCS, RVT D/C Instructions Discharge Diet: Low fat [...] mg Simvastatin 80mg (more content not included)... [facility] 07-09-2024 Evaluation note Diagnosis Onset Date Resolution Atrial fibrillation with rapid ventricular response resolved July 09 10:34am Bilateral ankle pain resolved 2024 10:34am Bilateral leg and foot pain resolved July 09 10:34am [facility] Work Phone: [phone]) 139-225101-28-2025 Telephone encounter Note* Telephone Encounter - Rodolfo Werner - 06/26/2024 8:25 AM EST I left a vm for patient to call when available to schedule an appt fro his fracture referral in hischart [facility]01-28-2025 Miscellaneous Notes* Telephone Encounter - Rodolfo Werner - 06/26/2024 8:25 AM EST I left a vm for patient to call when available to schedule an appt fro his fracture referral in hischart [facility] Telephone encounter Note * Telephone Encounter - Felicita Bolden MA - 06/25/2024 11:51 AM EST Spoke with ex , Halima, and she was made aware of results and provider message. She was also given the number to call and schedule his appointment for spine. She verbalizes understanding. Felicita Bolden MA June 25, 2024 11:52 AM [facility]01-27-2025 Miscellaneous Notes* Telephone Encounter - Felicita Bolden MA - 06/25/2024 11:51 AM EST Spoke with ex , Halima, and she was made aware of results and provider message. She was also given the number to call and schedule his appointment for spine. She verbalizes understanding. Felicita Bolden MA June 25, 2024 11:52 AM * Telephone Encounter - Mecca Summers - 06/25/2024 10:58 AM EST Patient returned missed call and received the provider's message. He voiced understanding. Patient requests all medical updates be discussed with his ex-spouse, Halima Sullivan. 06/16/24 telephone encounter routed to [facility] for back, neck, and spine pool again for schedulingconsultation with orthopaedic technical sales support specialist. * Telephone Encounter - Karla Ferguson MA - 06/25/2024 10:47 AM EST Message left for pt to call back for results. Karla Ferguson MA * Telephone Encounter - Florinda Stevenson APRN.KVNG - 06/25/2024 7:55 AM EST Please let [...] have a compression fracture. [facility]25 Telephone encounter Note * Telephone Encounter - Mecca Summers - 06/25/2024 10:58 AM EST Patient returned missed call and received the provider's message. He voiced understanding. Patient requests all medical updates be discussed with his ex-spouse, Halima Sullivan. 06/16/24 telephone encounter routed to [facility] for back, neck, and spine pool again for schedulingconsultation with orthopaedic technical sales support specialist. [facility]01-27-2025 Telephone encounter Note* Telephone Encounter - Karla Ferguson MA - 06/25/2024 10:47 AM EST Message left for pt to call back for results. Karla Ferguson MA [facility]01-27-2025 Telephone encounter Note* Telephone Encounter - [...] surgery. He does have a compression fracture. [facility]01-24-2025 Telephone encounter Note* Telephone Encounter - Florinda Stevenson APRN.CNP - 06/22/2024 5:03 PM EST Yes. 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 Does not need surgery but they can evaluate for kyphoplasty- setting the compression if needed [facility]01-24-2025 Miscellaneous Notes* Telephone Encounter - Florinda Stevenson APRN.CNP - 06/22/2024 5:03 PM EST Yes. 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 Does not need surgery but they [...] appropriately. Rebecca Dumas RN documented in this encounterSy[facility]01-[facility]-2025 Miscellaneous Notes* Telephone Encounter - Mecca Summers - 06/22/2024 4:41 PM EST [facility] unauthorized to schedule for this department. Patient notified that JARRETT routed referralto the appropriate department and their facility will contact patient for scheduling. Patient requests all future medical information and appointment scheduling be disclosed to ex-spouse, Flor Sullivan, only. * Telephone Encounter - Felicita Bolden MA - 06/22/2024 4:29 PM EST Patient notified of results and transferred to operations scheduler * Telephone Encounter - Florinda Stevenson [...] if pt knows he is scheduled at [facility] * Telephone Encounter - Aric Zapien MD - 06/19/2024 10:50 AM EST Please call before (I suspect was put in wrong place) * Telephone Encounter - Aric Zapien MD - 06/16/2024 8:47 AM EST Schedule to see me at [facility]24. Please make sure they are aware apptthey scheduled is at that office and not [facility] documented in [facility]01[facility]25 Telephone encounter Note * Telephone Encounter - Mecca Summers - 06/22/2024 4:41 PM EST [facility] unauthorized to schedule for this department. Patient notified that JARRETT routed referralto the appropriate department and their facility will contact patient for scheduling. Patient requests all future medical information and appointment scheduling be disclosed to ex-spouse, Flor Sullivan, only. [facility]01-24-2025 Telephone encounter Note* Telephone Encounter - Rebecca Dumas RN - 06/22/2024 4:36 PM EST Asking for provider to clarify pt's order for [facility]. Does patient need to see a surgeon? Please advise so that [facility] staff can schedule patient appropriately. Rebecca Dumas RN [facility]01-24-2025 Telephone encounter Note* Telephone Encounter - Felicita Bolden MA - 06/22/2024 4:29 PM EST Patient notified of results and transferred to operations scheduler [facility]01-24-2025 Telephone encounter Note* Telephone Encounter - Florinda Stevenson APRN.CNP - 06/22/2024 3:34 PM EST Please let patient know that he has a lumbar 1 compression fracture of the endplate. I am going to send him to a spine surgeon to review. Please facilitate primaryscheduling [facility]01-24-2025 NoteHNO ID: [id number] Author: EKATERINA BELTRE Tech Service: ? Author [...] PATIENT PRESENTS WITH AN IMPLANTABLE OR ATTACHED POLY AREA SUPERVISOR: No RADIOLOGY DEPARTMENT: General X-ray: Exam(s) Completed: Spine X-Ray(s): Lumbar AP / LAT / L5-S1 PERIPHERAL IV DATA: Not applicable SIGNED BY: Rosa Wakefield June 22, 2024 2:52 [facility]01-24-2025 Instructions* Patient Instructions* Florinda Stevenson APRN.CNP - 06/22/2024 1:59 PM EST 1) Check blood and urine in lab 2) Xray lumbar spine 3) Methocarbamol 500 mg 3 x day as needed for low back pain 4) Follow up in 2 weeks documented in this encounterSy[facility] Center01-24-2025 NoteHNO ID: [id number] Author: FLORINDA STEVENSON APRN.KVNG Service: ? Author [...] PAST MEDICAL HISTORY Diagnosis Date Atrial fibrillation ([facility]) Dr. 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 Huston TBI (traumatic brain injury) ([facility]) 2 times PAST SURGICAL HISTORY Procedure Laterality [...] complication, without long-term current use of insulin ([facility]) - ICD9: 250.00, ICD10: E11.9 (primary diagnosis) [...] M54.50 Concern for compressi (more content not included)...[facility] 06-22-2024 History of Present illness Narrative* Florinda Stevenson APRN.KVNG - 06/22/2024 1:35 PM EST This is [...] PAST MEDICAL HISTORY Diagnosis Date Atrial fibrillation ([facility]) Dr. 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 Huston TBI (traumatic brain injury) ([facility]) 2 times PAST SURGICAL HISTORY Procedure Laterality [...] as needed for worsening/no improvement. Florinda Stevenson APRN.NURSE REVIEWER documented in this encounterSycamore [facility] Center01-21-2025 Telephone encounter Note * Telephone Encounter - Felicita Bolden MA - 06/19/2024 11:20 AM EST Please call pt and ask if pt knows he is scheduled at [facility]01-21-2025 Telephone encounter Note* Telephone Encounter - Aric Zapien MD - 06/19/2024 10:50 AM EST Please call before (I suspect was put in wrong place) [facility]01-18-2025 Telephone encounter Note* Telephone Encounter - Aric Zapien MD - 06/16/2024 8:47 AM EST Schedule to see me at [facility] in person on 06/21/24. Please make sure they are aware apptthey scheduled is at that office and not [place] [facility]01-16-2025 Telephone encounter Note* Telephone Encounter - Campti Lulu Bryant - 06/14/2024 10:31 AM EST Patient called to request medication. He stated that he will need the medication by tomorrow, 06/15/24. Scheduled patient due to he fell on ice, but he declined any other days/times/providers. He will only see Dr. Zapien. He stated he can wait. He can only come on a . Scheduled at his request on 06/21/24. [facility]01-16-2025 Miscellaneous Notes* Telephone Encounter - Campti Lulu Bryant - 06/14/2024 10:31 AM EST [...] by mouth two times a day. Courtney Royce June 13, 2024 9:08 AM documented in this encounterSycamore Medical Center01-15-2025 Telephone encounter Note * Telephone Encounter - [...] by mouth two times a day. Courtney Royce June 13, 2024 9:08 AM [facility]12-30-2024 NoteHNO ID: [id number] Author: MAYURI PEREZ MA Service: ? Author Type: Brick Washer Type: Progress Notes Filed: 05/28/2024 19:08 Note Text: POPULATION HEALTH NAVIGATION OUTREACH Action/FYI [facility] OUTREACH Reason for Outreach Suspected Conditions Patient Contacted: Unable or unnecessary to reach patient: Left message Navigation Signature: Mayuri Perez MA May 28, 2024 7:07 [facility]12-30-2024 History of Present illness Narrative* Mayuri Perez MA - 05/28/2024 7:07 PM EST POPULATION HEALTH NAVIGATION OUTREACH Action/FYI MCAIP OUTREACH Reason for Outreach Suspected Conditions Patient Contacted: Unable or unnecessary to reach patient: Left message Navigation Signature: Mayuri Perez MA May 28, 2024 7:07 PM documented in this encounterSycamore Medical Center12-30-2024 NotePatient Outreach (NETNAV) REINA SULLIVAN ([id number]) 1955 M Date Time Provider Department 05/28/24 MAYURI PEREZ During your visit today, we recorded the following information about you: Mayuri Perez MA 05/28/2024 7:08 PM Signed POPULATION HEALTH NAVIGATION OUTREACH Action/FYI [facility] Reason for Outreach Suspected Conditions Patient Contacted: Unable or unnecessary to reach patient: Left message Navigation Signature: Mayuri Perez MA May 28, 2024 7:07 PM Allergies As of Date: 05/28/2024 Noted Allergy Reaction DYE 03/02/2016 14 - Other: See Comments Comments: used for heart cath Date Reviewed: 11/22/2023 Reviewed by: Florinda Flores LPN - Fully Assessed Reason for Visit: Population Health Navigation Outreach [3910] Cmt: [facility] Prescriptions as of 05/28/2024 - divalproex [...] unspecified na*09/30/2022 Left atrial enlargement [I51.7] 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 Reina Sullivan is identified through data from [employer] (insurer) as a potential candidate for statin [...] indicates patient has hx of CVA and TX, should be on high-intensity statin for secondary prevention. Patient scheduled to see PCP on 05/25. ALLERGIES Allergen Reactions Dye Other: See Comments used for heart cath PAST MEDICAL HISTORY Diagnosis Date Atrial fibrillation ([facility]) Dr. 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 Huston TBI (traumatic brain injury) ([facility]) 2 times Cholesterol, Total (mg/dL) Date Value [...] provider Edward Pleitez RPh documented in this encounterSycamore Medical Center11-20-2024 NoteHNO ID: [id number] Author: EDWARD PLIETEZ RPh Service: ? Author Type: Pharmacist Type: Progress Notes Filed: 04/18/2024 11:12 Note Text: Pt chart reviewed as part of population health initiative focused on statin use in patients with diabetes (DM) or cardiovascular disease (CVD). Reina Sullivan is identified through data from [employer] (insurer) as a potential candidate for statin [...] indicates patient has hx of CVA and TX, should be on high-intensity statin for secondary prevention. Patient scheduled to see PCP on 05/25. ALLERGIES Allergen Reactions Dye Other: See Comments used for heart cath PAST MEDICAL HISTORY Diagnosis Date Atrial fibrillation ([facility]) Dr. 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 Huston TBI (traumatic brain injury) ([facility]) 2 times Cholesterol, Total (mg/dL) Date Value [...] review: Pending outreach to provider Edward Pleitez [facility]11-20-2024 NoteHNO ID: [id number] Author: EDWARD PLEITEZ RPh Service: ? Author Type: Pharmacist Type: Progress Notes Filed: 05/28/2024 15:55 Note Text: Appears patient was a no-show to PCP visit on 05/25. Edward Pleitez, PharmD, [facility] Primary Care Clinical PharmacistRegional Medical Center11-20-2024 NotePatient Outreach (PHMEWO) REINA SULLIVAN ([id number]) 1955 M Date Time Provider Department 04/18/24 EDWARD PLEITEZ During your visit today, we recorded the following information about you: Edward Pleitez [facility] 04/18/2024 11:12 AM Signed Pt chart reviewed as part of population health initiative focused on statin use in patients with diabetes (DM) or cardiovascular disease (CVD). Reina Esperanza Nate is identified through data from [employer] (insurer) as a potential candidate for statin [...] indicates patient has hx of CVA and TX, should be on high-intensity statin for secondary prevention. Patient scheduled to see PCP on 05/25. ALLERGIES Allergen Reactions Dye Other: See Comments used for heart cath PAST MEDICAL HISTORY Diagnosis Date Atrial fibrillation ([facility]) Dr. 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 Huston TBI (traumatic brain injury) ([facility]) 2 times Cholesterol, Total (mg/dL) Date Value [...] review: Pending outreach to provider Edward Pleitez [facility] Edward Pleitez RPh 05/28/2024 3:55 PM Signed Appears patient was a no-show to PCP visit on 05/25. 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 Will route to PCP office to make them aware. Merline Jimenez RN March 22, 2024 2:44 PM [facility]10-24-2024 Miscellaneous Notes* Telephone Encounter - Merline Jimenez RN - 03/22/2024 2:44 PM EDT Patient does not see endocrinology. Will route to PCP office to make them aware. Merline Jimenez RN March 22, 2024 2:44 PM * Telephone Encounter - Vanna Flores - 03/21/2024 3:31 PM EDT [facility] states that their records show patient has diabetes but does not take statins. AMA recommendthat patient take a statin to reduce cardiovascular risk. documented in this encounterSycamore Medical Center10-23-2024 Telephone encounter Note * Telephone Encounter - Vanna Flores - 03/21/2024 3:31 PM EDT [facility] states that their records show patient has diabetes but does not take statins. AMA recommendthat patient take a statin to reduce cardiovascular risk. [facility]10-17-2024 NoteHNO ID: [id number] Author: YOLANDA STRATTON MA Service: ? Author Type: Brick Washer Type: Progress Notes Filed: 03/15/2024 08:28 Note Text: POPULATION HEALTH NAVIGATION OUTREACH Action/FYI Letter received and sent to be mailed. Navigation Signature: Yolanda Stratton MA March 15, 2024 8:27 [facility]10-09-2024 NoteHNO ID: [id number] Author: JORDY HERNANDEZ MA Service: ? Author Type: Brick Washer Type: Progress Notes Filed: 03/07/2024 10:40 Note Text: POPULATION HEALTH NAVIGATION OUTREACH Action/FYI Patient is on [facility] CURRENT ROSTER Workbench list for below and [...] Jordy Hernandez MA March 07, 2024 7:34 [facility]10-09-2024 History of Present illness Narrative* Jordy Hernandez MA - 03/07/2024 7:34 AM EDT POPULATION HEALTH NAVIGATION OUTREACH Action/FYI Patient is on [facility] ROSS CURRENT ROSTER Workbench list for below and needs appointment to address: Abdominal Aortic Aneurysm Screening BP Controlled (<130/80) DTaP,Tdap,Td Vaccine(1 - Tdap) Colorectal Cancer Screening Dilated Retinal Exam Advance Directive Discussion HbA1C Influenza Vaccine(1) Covid-19 Vaccine() Hemoglobin A1C (%) Date Value 05/24/2023 6.1 [...] 07, 2024 7:34 AM documented in this encounterSycamore Medical Center10-09-2024 NotePatient Outreach (NETNAV) REINA SULLIVAN ([id number]) 1955 M Date Time Provider Department 03/07/24 JORDY HERNANDEZ NETSOPHIE During your visit today, we recorded the following information about you: Jordy Hernandez MA 03/07/2024 10:40 AM Signed POPULATION HEALTH NAVIGATION OUTREACH Action/FY Patient is on [facility] ROSS CURRENT ROSTER Workbench list for below and [...] Yolanda Stratton MA March 15, 2024 8:27 AM Allergies As [...] unspecified na*09/30/2022 Left atrial enlargement [I51.7] 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 Author Type: Brick Washer Type: Progress Notes Filed: 12/15/2023 13:03 Note Text: POPULATION HEALTH NAVIGATION OUTREACH Action/December 15, 2023 [...] Moshe Friedman MA December 15, 2023 1:01 [facility]07-18-2024 History of Present illness Narrative* Moshe [...] 15, 2023 1:01 PM documented in this encounterSycamore Medical Center07-18-2024 NotePatient Outreach (NETNAV) REINA SULLIVAN ([id number]) 1955 Jaison Date Time Provider Department 12/15/23 MOSHE FRIEDMAN NETCYNTHIAV During your visit today, we recorded the following information about you: Moshe Friedman MA 12/15/2023 1:03 PM Signed POPULATION HEALTH NAVIGATION OUTREACH Action/FYI December 15, 2023 05/25/2024 appt flipped to [...] Visit: Population Health Navigation Outreach [3910] Cmt: ANTHEM-AWV Prescriptions as of 12/15/2023 - divalproex DR [...] unspecified na*09/30/2022 Left atrial enlargement [I51.7] 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 Halima notes that she helps patient " to a certain extent." Halima and Nikkie spoke about [facility] Older Adult Resource Directory. Halima asks that Sw mail patient this guide for him to review and see what services are available in the community. Nikkie will also attach [facility] Older Adult support program and [facility] information. [facility]06[facility] Miscellaneous Notes* Telephone Encounter - Harvey Hazel MSW - 11/24/2023 12:54 PM EDT Nikkie called and spoke with Halima, patient ex in regards to service assistance options in the community. Halima notes that she helps patient " to a certain extent." Halima and Nikkie spoke about [facility] Adult Resource Directory. Halima asks that Sw mail patient this guide for him to review and see what services are available in the community. Nikkie will also attach [facility] Older Adult support program and [facility] information. documented in this encounterSycamore Medical Center06-25-2024 Instructions* Patient Instructions* Jaison Max PA-C - 11/22/2023 3:54 PM EDT Nail dremmel for nail trimming might help, would need assistance documented in this encounterSycamore Medical Center06-25-2024 History of Present illness Narrative* Jaison Max PA-C - 11/22/2023 3:40 PM EDT 68 year old male with c/o 6-month follow-up Last visit Dr. 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 Aric Huston Current medications: Apixaban 5 mg twice daily Divalproex DR 500 mg 1 tablet twice daily No seizures. 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) 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 of 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 Non-rheumatic tricuspid [...] stable AF, no concerns 09/08/2015 Dr. James [place]: cardiac cath: no disease 09/08/2015 cardiac catheter[address] [facility] [address]. James: - primary rhythm atrial fibrillation [...] Lymph 1.00 - 4.00 k/uL 1.57 2.35 [place]% % 9.8 11.3 Abs [place] <0.87 k/uL 0.66 0.98 (H) Eosin% % [...] (HCC) Dr. 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 90 tablet 3 divalproex (DEPAKOTE) 500 mg EC tablet Take 1 [...] 05/30/2023 Behavioral Health Screening Never done Covid-19 Vaccine( season) due on 09/23/2023 Diabetic Foot Exam [...] METABOLIC PANEL - LIPID PANEL BASIC 7. 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 of 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 - ICD9: [...] immunization - ICD9: V03.89, ICD10: Z23 - PFIZER-BIONTECH COVID-19 VACCINE (2022- [place]) AGE 12+ YR [...] plan Jaison Max PA-C documented in this encounterSycamore Medical Center06-25-2024 NoteHNO ID: [id number] Author: Jaison MAX PA-C Service: ? Author Type: Physician Library Media Technician Type: Progress Notes Filed: 11/28/2023 09:49 Note Text: 68 year old male with c/o 6-month follow-up Last visit Dr. 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 Aric Huston Current medications: Apixaban 5 mg twice daily Divalproex DR 500 mg 1 tablet twice daily No seizures. 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) 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 of 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 Non-rheumatic tricuspid [...] stable AF, no concerns 09/08/2015 Dr. James [place]: cardiac cath: no disease 09/08/[address] [facility] [address] James: - primary rhythm atrial fibrillation [...] Lymph 1.00 - 4.00 k/uL 1.57 2.35 [place]% % 9.8 11.3 Abs [place] <0.87 k/uL 0.66 0.98 (H) Eosin% % [...] / Complications: hypertension, hyperlipide (more content not included)...[facility]06-11-20[facility] Telephone encounter Note* Telephone Encounter - Yolanda [...] Yolanda Bryant November 08, 2023 10:11 AM [facility]06-11-20[facility] Miscellaneous Notes* Telephone Encounter - Yolanda Newman [...] 08, 2023 10:11 AM documented in this encounterSycamore Medical Center06-03-2024 Telephone encounter Note * Telephone Encounter - [...] 11/22/2023 Please advise. Thank you. Bree Johnson. [facility]06-03-[facility] Miscellaneous Notes* Telephone Encounter - Bree Sosa [...] 11/22/2023 Please advise. Thank you. Bree Johnson. documented in this encounterSycamore Medical Center07-11-2023 History of Present illness Narrative* Sarah Leone PA - 12/07/2022 2:05 PM EDT This note was created using [employer]riter. Subjective Reina Sullivan is a 67 year [...] (HCC) Dr. 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 Huston TBI (traumatic brain injury) ([facility]) 2 times PAST SURGICAL HISTORY Procedure Laterality [...] daily. Dx: Type 2 DM - Uncontrolled Insulin: No^Disp: 100 Each^Rfl: 11 blood sugar diagnostic (BLOOD GLUCOSE TEST) test strip^Test blood sugar(s) 1 times daily. Dx: Type 2 DM - Uncontrolled Insulin: No^Disp: 50 Strip^Rfl: 11 apixaban (ELIQUIS) [...] ER evaluation. CYNTHIA White documented in this encounterSycamore Medical Center05-04-2023 History of Past illness Narrative* Problem Noted [...] of this encounter (statuses as of 09/30/2022) [facility] History of Past illness Narrative* Problem Noted [...] of this encounter (statuses as of 12/08/2022) [facility] History of Present illness Narrative* Aric Zapien MD - 09/30/2022 1:13 PM EDT Patient [...] (HCC) Dr. 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 Huston TBI (traumatic brain injury) ([facility]) 2 times PAST SURGICAL HISTORY Procedure Laterality [...] - ICD9: 416.0, ICD10: I27.0 - per [facility] 4. Primary hypertension - ICD9: 401.9, [...] B35.1, M79.609 - CONSULT TO PODIATRY Aric Zapien RTAdán in two weeks. documented in this encounterCleveland [id number] Miscellaneous Notes* Telephone Encounter - Karla Ferguson [...] notify patient. Jesi Bryant documented in this encounterSycamore Medical Center01-13-2023 History of Present illness Narrative* Leanna Benavidez RN - 06/11/2022 11:32 AM EST ACM COLEMAN RN Afsaneh Mercedes, My name is Leanna Benavidez RN. I am calling from [facility]. Your Healthcare team and Medicare provider would like to assist in your success in taking prescribed medications for cardiovascular health and/or diabetes. Is this a good time to talk with you? NO Called patient, home line no answer just rings, home phone [phone] not working Thank you - Leanna Benavidez RN Patient identified by name and date of . Patient Attributed To: QAE Payer: [facility] Reason for review or outreach: Medication Adherence Medication Adherence Review Details: Diabetes Summary / Findings: As per above Action Taken: Data submitted to Payer Other Contact made with patient: No, Unable to leave message Leanna Benavidez RN Signature: Leanna Benavidez RN documented in this encounterSycamore Medical Center11-29-2022 Miscellaneous Notes* Telephone Encounter - Vickie Badillo Pss - 04/27/2022 1:45 PM EST The patient declined an appointment with general JARRETT. Soonest appointment at [place] is 08/16/22. Please advise. * Telephone Encounter - Berenice Weston Pss - 04/27/2022 11:49 AM EST Patient returned call and stated there is no way he can drive, or his friend is able to drive all the way to [place] for an appt. Requesting call back from nurse to discuss soonest appt herein [place]. Please advise. * Telephone Encounter - Vickie Badillo Pss - 04/27/2022 11:27 AM EST Both [...] studies. Aric Huston MD documented in this encounterSycamore Medical Center11-28-2022 History of Present illness Narrative* Felicita Ruiz RT(R) - 04/26/2022 1:40 PM EST Radiology [...] DEPARTMENT: MR; Exam(s) Completed: Head: Routine Brain [place] MRA Neck: Carotids MRA, bilateral PERIPHERAL IV DATA: Not applicable SIGNED BY: RT Rajendra(R) April 26, 2022 1:58 PM documented in this encounterSycamore Medical Center11-16-2022 Miscellaneous Notes* Telephone Encounter - Jovana [place] [...] Provider: Jaison MAX PA-C documented in this encounterSycamore Medical Center11-14-2022 Miscellaneous Notes* Telephone Encounter - Aric Huston [...] ER. Aric Huston MD documented in this encounterSycamore Medical Center11-14-2022 History of Present illness Narrative* Aric Huston [...] 2 visits. Aric Huston MD * Marni Hare, OD - 04/12/2022 3:18 PM EST 1. [...] 12, 2022 3:18 PM documented in this encounterSycamore Medical Center11-14-2022 Instructions* Patient Instructions* Marni Hare, OD - 04/12/2022 3:12 PM EST Use Refresh or Systane gel nightly in both eyes documented in this encounterSycamore Medical Center11-04-2022 Miscellaneous Notes* Telephone Encounter - Pam Venegas LPN - 04/02/2022 12:47 PM EDT Attempted to reach patient, no answer or machine to leave message. Pam Venegas LPN * Telephone Encounter - Pam Mata Rubi SANTIAGO - 04/02/2022 12:44 PM EDT Images from [...] and pasted from Results documented in this encounterSycamore Medical Center11-03-2022 History of Present illness Narrative* Aric Zapien [...] ordered. 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 VICKY Argueta tr Yuriy Matam[place]os Please schedule echo added after visit and explain this is follow up for valvular disease and enlarged aortic listed. Last testing 2015. Thanks, Janusz Max PA-C documented in this encounterSycamore Medical Center10-11-2022 History of Present illness Narrative* Lolis Jimenez LPN - 03/09/2022 5:01 PM EDT VISUAL ACUITY Date of Last Exam: Many years ago Today's exam: Vision Correction? vision correction: OD: 20/30 OS: 20/ 40 OU: 20/40 and Glasses COLOR VISION: normal * M Leonidas Max PA-C - 03/09/2022 3:00 PM EDT Reina Sullivan is a 67 year old male here for a Medicare Initial Annual Wellness Visit Health Risk Assessment In general, health is: Excellent Concerns with tiredness, difficulties with sexual function, balance, teeth/dentures: Nearly every day Uses cane for balance. Dentures but don't fit properly- does fine without them. [place] anxious, stressed, angry, irritable, lonely, isolated, or [...] in the medical record. Dr. Huston neurology [facility] Medical/Family history review Reviewed and updated [...] Lymph 1.00 - 4.00 k/uL 1.87 1.93 [place]% % 9.0 7.2 Abs [place] <0.87 k/uL 0.78 0.54 Eosin% % 0.9 [...] OPHTHALMOLOGY Jaison Max PA-C documented in this encounterSycamore Medical Center10-11-2022 History of Past illness Narrative* Problem Noted Date Diagnosed Date Resolved Date Encounter for hepatitis C sc reening test for low risk patient 03/09/2022 09/30/2022 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 status epilepticus 06/27/2020 03/25/2021 Hyperglycemia 03/23/2017 03/26/2021 documented as of this encounter (statuses as of 04/03/2023) [facility] History of Present illness Narrative* Aric Huston [...] prior head trauma. Prior records requested from [facility]. Unclear if currentsymptoms described above of AMS might represent breakthrough seizures. To further evaluate will getI brain to determine if new intracranial source [...] have yet to receive requested records from [facility] and I have asked the patient to contact that practice to aid in retrieval of records. Pt states since last visit he had some strokes, 3 of them, for which he was treated in [place] and up in [place] or something like that. 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 documented in this encounterSycamore Medical Center10-07-2022 Miscellaneous Notes* Telephone Encounter - Kayleen Quintero [...] and advise. Mecca Orozco documented in this encounterSycamore Medical Center09-27-2022 History of Present illness Narrative* Joceline Waldron RN - 02/23/2022 2:29 PM EDT ACM COLEMAN RN Action/FYI: Chart review completed for Medication Adherence - Statin Use in Patients with Cardiovascular Disease at the request of [employer] ([facility]). No statin order noted. No statin exclusionary [...] with Cardiovascular Disease is based on 2013 [place] [employer]/[place] [employer] (ACC/AHA) guidelines which recommends moderate tohigh-intensity statin therapy for prevention of ASCVD events. Patient Attributed To: QAE Payer: [facility] Reason for review or outreach: Medication Adherence Medication Adherence Review Details: Cholesterol, Hypertension, and Diabetes Summary / Findings: See Above Action Taken: Encounter routed to provider Contact made with patient: No, Chart review only. Signature: Joceline Waldron RN documented in this encounterSycamore Medical Center04-28-2022 History of Present illness Narrative* Aric Zapien [...] (HCC) Dr. 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 Huston TBI (traumatic brain injury) ([facility]) 2 times PAST SURGICAL HISTORY Procedure Laterality [...] tobacco: Never Used Tobacco comment: Quit in 2006 Substance Use Topics Alcohol use: Not on [...] prn. Medical Decision Making documented in this encounterSycamore Medical Center10-14-2021 History of Present illness Narrative* Machelle Funez, [...] 12, 2021 2:38 PM documented in this encounterSycamore Medical Center01-29-2021 History of Past illness Narrative* Problem Noted Date Resolved Date 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 status epilepticus 06/27/2020 03/25/2021 Hyperglycemia 03/23/2017 03/26/2021 documented as of this encounter (statuses as of 09/11/2021) [facility] of Past illness Narrative* Problem Noted Date Resolved Date 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 status epilepticus 06/27/2020 03/25/2021 Hyperglycemia 03/23/2017 03/26/2021 documented as of this encounter (statuses as of 09/24/2021) [facility] of [facility] illness Narrative* Problem Noted Date Resolved Date 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 status epilepticus 06/27/2020 03/25/2021 Hyperglycemia 03/23/2017 03/26/2021 documented as of this encounter (statuses as of 03/05/2022) [facility] of [facility] illness Narrative* Problem Noted Date Resolved Date 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 status epilepticus 06/27/2020 03/25/2021 Hyperglycemia 03/23/2017 03/26/2021 documented as of this encounter (statuses as of 03/08/2022) [facility] illness Narrative* Problem Noted Date Resolved Date 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 status epilepticus 06/27/2020 03/25/2021 Hyperglycemia 03/23/2017 03/26/2021 documented as of this encounter (statuses as of 03/10/2022) [address] History of Past illness Narrative* Problem Noted Date Resolved Date 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 status epilepticus 06/27/2020 03/25/2021 Hyperglycemia 03/23/2017 03/26/2021 documented as of this encounter (statuses as of 03/16/2022) [address] History of Past illness Narrative* Problem Noted Date Resolved Date 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 status epilepticus 06/27/2020 03/25/2021 Hyperglycemia 03/23/2017 03/26/2021 documented as of this encounter (statuses as of 03/26/2022) [address]29-2021 History of Past illness Narrative* Problem Noted Date Resolved Date 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 status epilepticus 06/27/2020 03/25/2021 Hyperglycemia 03/23/2017 03/26/2021 documented as of this encounter (statuses as of 04/01/2022) [address]29-2021 History of Past illness Narrative* Problem Noted Date Resolved Date 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 status epilepticus 06/27/2020 03/25/2021 Hyperglycemia 03/23/2017 03/26/2021 documented as of this encounter (statuses as of 04/02/2022) [address]29[address]2021 History of Past illness Narrative* Problem Noted Date Resolved Date 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 status epilepticus 06/27/2020 03/25/2021 Hyperglycemia 03/23/2017 03/26/2021 documented as of this encounter (statuses as of 04/13/2022) [address] History of Past illness Narrative* Problem Noted Date Resolved Date 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 status epilepticus 06/27/2020 03/25/2021 Hyperglycemia 03/23/2017 03/26/2021 documented as of this encounter (statuses as of 04/13/2022) [address]2021 History of Past illness Narrative* Problem Noted Date Resolved Date 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 status epilepticus 06/27/2020 03/25/2021 Hyperglycemia 03/23/2017 03/26/2021 documented as of this encounter (statuses as of 04/14/2022) [facility] Narrative* Problem Noted Date Resolved Date 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 status epilepticus 06/27/2020 03/25/2021 Hyperglycemia 03/23/2017 03/26/2021 documented as of this encounter (statuses as of 04/27/2022) [facility] Narrative* Problem Noted Date Resolved Date 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 status epilepticus 06/27/2020 03/25/2021 Hyperglycemia 03/23/2017 03/26/2021 documented as of this encounter (statuses as of 06/11/2022) [facility] illness Narrative* Problem Noted Date Resolved Date 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 status epilepticus 06/27/2020 03/25/2021 Hyperglycemia 03/23/2017 03/26/2021 documented as of this encounter (statuses as of 06/18/2022) [facility] Diagnosis Type 2 diabetes mellitus without complication, without long-term current use of insulin (HCC) [facility]* Diagnosis 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 (HCC)- Primary [...] specified viral diseases documented in this encounter [facility]* Diagnosis Seizures (HCC) Other convulsions documented [facility] noteNo assessment information availableWDiley [facility] Medical [facility] Work Phone: Evaluation note* Diagnosis 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 status epilepticus, unspecified epilepsy type (HCC)- Primary Seizures (HCC) Other convulsions [facility]* Diagnosis Medicare annual wellness visit, initial- [...] lateral visual alexandra documented in this encounter [facility]* Diagnosis 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 (HCC)- Primary [...] unspecified cardiovascular conditions documented in this encounter [facility]* Diagnosis Nonintractable epilepsy without status epilepticus, unspecified epilepsy type (HCC)- Primary documented in this encounter [facility]* Diagnosis Left homonymous inferior quadrantanopia- Primary Myopia, bilateral Myopia Presbyopia Regular astigmatism of left eye Regular astigmatism Combined forms of age-related cataract of both eyes Other and combined forms of senile cataract Punctate keratitis, bilateral [facility] Other symptoms and signs involving the nervous system- Primary [facility] Elevated serum creatinine- Primary Other nonspecific findings on examination of blood [facility] Diagnosis Seizures (HCC) Other convulsions [facility] Diagnosis Seizures (HCC)- Primary Other convulsions [...] Dermatophytosis of nail [facility] Diagnosis Sore throat- Primary Acute pharyngitis URI, acute Acute upper respiratory infections of unspecified site [facility] Diagnosis 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 status epilepticus, unspecified epilepsy type (HCC) Other symptoms and signs involving the nervous system [facility] Diagnosis Onset Date Resolution Status Atrial fibrillation with rapid ventricular response acute Essential hypertension chron ic Valvular heart disease chron ic [facility] Work Phone: Evaluation note* Diagnosis Pulmonary hypertension (HCC) Other chronic pulmonary heart diseases Edema, unspecified type [facility]* Diagnosis Type 2 diabetes mellitus without complication, without long-term current use of insulin (HCC) [facility] Diagnosis 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, late effect of cerebrovascular disease Seizures (HCC) Other convulsions Mitral valve insufficiency, unspecified etiology Non-rheumatic tricuspid valve insufficiency Tricuspid valve disorders, specified as nonrheumatic Left atrial enlargement Cardiomegaly 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 (HCC) Atrial fibrillation 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 of 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 Long-term (current) [...] disease of nail [facility]* Diagnosis Acute right ankle pain Foot pain, right Pain in limb [facility]* Diagnosis Seizures (HCC) Other convulsions [facility]* Diagnosis Type 2 diabetes mellitus without complication, without long-term current use of insulin (HCC)- Primary Fall, initial encounter Screening for lipid disorders Acute low back pain without sciatica, unspecified back pain laterality Fall, initial encounter [facility]* Diagnosis Compression fracture of L1 vertebra, initial encounter (HCC)- Primary documented in this encounter [facility]* Diagnosis Type 2 diabetes mellitus without complication, without long-term current use of insulin (HCC)- Primary documented in this encounter [facility] for referral (narrative)* Outpatient Procedure (Routine) - Pending Review Specialty Diagnoses / Procedures Referred By Contac t Referred To [facility] [place] Diagnoses 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 status epilepticus, unspecified epilepsy type (HCC) Procedures EPIL EEG ROUTINE ELECTROENCEPHALOGRAM REC COMA/SLEEP ONLY Aric Huston Jr., MD [address] [facility] [address] [place] [address] [address] Referral ID Status Reason Start Date Expiration Date Visits Requested Visits Authorized [id number] Pending Review Auto-Generat ed Referral 2 03/08/2023 1 1 * MRI/CT (Routine) - Authorized Specialty Diagnoses / Procedures Referred By [facility] Referred To Contact MR IMAGING Diagnoses 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 status epilepticus, unspecified epilepsy type (HCC) Procedures MRI BRAIN WO IVCON MRI BRAIN BRAIN STEM W/O CONTRAST MATERIAL Aric Huston Jr., MD [address] [facility] [address] [place] [address] Mr Imaging Referral ID Status Reason Start Date Expiration Date Visits Requested Visits Authorized [id number] Authorized Auto-Generat ed Referral 2 04/07/2023 1 1 [facility] for referral (narrative)* Outpatient Procedure (Routine) - Pending Review Specialty Diagnoses / Procedures Referred By Contac t Referred To [facility] Diagnoses 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 (HCC) Non-rheumatic tricuspid valve insufficiency Mitral valve insufficiency, unspecified etiology Primary pulmonary HTN (HCC) Enlarged thoracic aorta (HCC) Procedures ECHO ECHO TTHRC R-T 2D W/WOM-MODE COMPL SPEC&COLR D Jaison Max PA-C [address] [place] [address] [facility] [place] [address] [place] [address] Referral ID Status Reason Start Date Expiration Date Visits Requested Visits Authorized [id number] Pending Review Auto-Generat ed Referral 2 03/10/2023 1 1 * Consult, Test, Treat (Routine) - Pending Review Specialty Diagnoses / Procedures Referred By Jacqueline t Referred To Contact Dermatology Diagnoses Multiple atypical skin moles Procedures CONSULT TO DERMATOLOGY OFFICE/OUTPATIENT [facility] 60-74 MINUTES Jaison Max PA-C [address] [place] [address] Referral ID Status Reason Start Date Expiration Date Visits Requested Visits Authorized [id number] Pending Review PCP Requested Referral 2 03/09/2023 1 1 * Consult, Test, Treat (Routine) - Authorized Specialty Diagnoses / Procedures Referred By Jacqueline t Referred To Contact Ophthalmology Diagnoses Presbyopia of both eyes Loss of lateral visual alexandra Procedures CONSULT TO OPHTHALMOLOGY OFFICE/OUTPATIENT [facility] 60-74 MINUTES Jaison Max PA-C [address] [place] [address] Referral ID Status Reason Start Date Expiration Date Visits Requested Visits Authorized [id number] Authorized PCP Requested Referral 2 03/09/2023 1 1 [facility] for referral (narrative)* Diagnostic Procedure Only (Routine) - Authorized Specialty Diagnoses / Procedures Referred By Contac t Referred To Contact US IMAGING Diagnoses Screening for AAA (abdominal aortic aneurysm) Procedures US SCREENING FOR AAA (2017) US ABDOMINAL AORTA REAL TIME SCREEN STUDY AAA Aric Zapien MD [address] [place] [address] Us Imaging Referral ID Status Reason Start Date Expiration Date Visits Requested Visits Authorized [id number] Authorized Auto-Generat ed Referral 04/01/2022 05/01/2023 1 1 * Consult, Test, Treat (Routine) - Pending Review Specialty Diagnoses / Procedures Referred By Contac t Referred To Contact Cardiology Diagnoses 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 (HCC) Enlarged thoracic aorta (HCC) Procedures CONSULT TO CARDIOLOGY OFFICE/OUTPATIENT [facility] 60-74 MINUTES Aric Zapien MD [address] [place] [address] Referral ID Status Reason Start Date Expiration Date Visits Requested Visits Authorized [id number] Pending Review PCP Requested Referral 04/01/2022 04/01/2023 1 1 [facility] for referral (narrative)* Outpatient Procedure (Routine) - Authorized Specialty Diagnoses / Procedures Referred By Peymanac t Referred To Contact [facility] Diagnoses Peripheral vascular disease (HCC) Procedures P[facility] NON-INVASIVE PHYSIOLOGIC STUDY EXTREMITY 3 LEVLS Aric Zapien MD [address] [place] [address] [facility] [place] [address] [place] [address] Referral ID Status Reason Start Date Expiration Date Visits Requested Visits Authorized [id number] Authorized Auto-Generat ed Referral 09/30/2022 09/30/2023 1 1 * Consult, Test, Treat (Routine) - Authorized Specialty Diagnoses / Procedures Referred By Contac t Referred To Contact Podiatry Diagnoses Type 2 diabetes mellitus without complication, without long-term current use of insulin (HCC) Pain due to onychomycosis of nail Procedures CONSULT TO PODIATRY OFFICE/OUTPATIENT [facility] 60-74 MINUTES Aric Zapien MD [address] [place] [address] Referral ID Status Reason Start Date Expiration Date Visits Requested Visits Authorized [id number] Authorized PCP Requested Referral 09/30/2022 09/30/2023 1 1 * Diagnostic Procedure Only (Routine) - Authorized Specialty Diagnoses / Procedures Referred By Contac t Referred To Contact US IMAGING Diagnoses Screening for AAA (abdominal aortic aneurysm) Procedures US SCREENING FOR AAA (2017) US ABDOMINAL AORTA REAL TIME SCREEN STUDY AAA Aric Zapien MD [address] [place] [address] Us Imaging Referral ID Status Reason Start Date Expiration Date Visits Requested Visits Authorized [id number] Authorized Auto-Generat ed Referral 09/30/2022 10/30/2023 1 1 [facility] for referral (narrative)* Diagnostic Procedure Only (Urgent) - Closed Specialty Diagnoses / Procedures Referred By Contac t Referred To Contact XR IMAGING Diagnoses Foot pain, right Procedures XR FOOT GENERAL 3V AP/LAT/OBL RT X-RAY FOOT MINIMUM 3 VIEWS Quang Bowman MD [address] [place] [address] [place] [address] Referral ID Status Reason Start Date Expiration Date V isits Requested Visits Authorized Closed Auto-Generate d Referral 03/12/2021 04/11/2022 1 1 * Diagnostic Procedure Only (Urgent) - Closed Specialty Diagnoses / Procedures Referred By Contac t Referred To Contact XR IMAGING Diagnoses Acute right ankle pain Procedures XR ANKLE GENERAL 3V AP/LAT/OBL RT X-RAY ANKLE MINIMUM 3 VIEWS Quang Bowman MD [address] [place] [address] [place] [address] Referral ID Status Reason Start Date Expiration Date V isits Requested Visits Authorized [id number] Closed Auto-Generate d Referral 03/12/2021 05/29/2021 1 1 [facility] for referral (narrative)* Diagnostic Procedure Only (Urgent) - Closed Specialty Diagnoses / Procedures Referred By Contac t Referred To Contact XR IMAGING Diagnoses Chronic low back pain without sciatica, unspecified back pain laterality Fall, initial encounter Procedures XR LUMBAR GENERAL 3V AP/LAT/L5-S1 RADEX SPINE LUMBOSACRAL 2/3 VIEWS Florinda Stevenson APRN.NURSE REVIEWER [address] [place] [address] [place] [address] Referral ID Status Reason Start Date Expiration Date V isits Requested Visits Authorized [id number] Closed Auto-Generate d Referral 06/22/2024 07/22/2025 1 1 [facility] for referral (narrative)No reason for referral [facility] Work [facility]: Reason for visit Narrative* Diagnostic Procedure Only (Urgent) - Closed Specialty Diagnoses / Procedures Referred By Contac t Referred To Contact XR IMAGING Diagnoses Acute right ankle pain Procedures XR ANKLE GENERAL 3V AP/LAT/OBL RT X-RAY ANKLE MINIMUM 3 VIEWS Quang Bowman MD [address] [place] [address] [place] [address] Referral ID Status Reason Start Date Expiration Date V isits Requested Visits Authorized [id number] Closed Auto-Generate d Referral 03/12/2021 05/29/2021 1 1 [facility] Reason for Referral Specialty Diagnoses / Procedures Referred By Contac t Referred To Contact Ophthalmology Diagnoses Type 2 diabetes mellitus without complication, without long-term current use of insulin (HCC) Procedures CONSULT TO OPHTHALMOLOGY OFFICE/OUTPATIENT NEW HIGH MDM 60-74 MINUTES Aric Zapien MD [address] [place] [address] Referral ID Status Reason Start Date Expiration Date Visits Requested Visits Authorized [id number] Authorized PCP Requested Referral 09/24/2021 09/24/2022 1 1 Specialty Diagnoses / Procedures Referred By Contac t Referred To Contact Neurology Diagnoses Seizures (HCC) Procedures CONSULT TO NEUROLOGY OFFICE/OUTPATIENT [facility] HIGH MDM 60-74 MINUTES Aric Zapien MD [address] [place] [address] Referral ID Status Reason Start Date Expiration Date Visits Requested Visits Authorized [id number] Pending Review PCP Requested Referral 09/24/2021 09/24/2022 1 1 Specialty Diagnoses / Procedures Referred By Contac t Referred To Contact Cardiology Diagnoses 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 (HCC) Primary pulmonary HTN (HCC) Enlarged thoracic aorta (HCC) Mitral valve insufficiency, unspecified etiology Non-rheumatic tricuspid valve insufficiency Procedures CONSULT TO CARDIOLOGY Aric Zapien MD [address] [place] [address] Referral ID Status Reason Start Date Expiration Date Visits Requested Visits Authorized [id number] Ref Not Required PCP Requested Referral 09/24/2021 09/24/2022 1 1 Specialty Diagnoses / Procedures Referred By Contac t Referred To Contact MR IMAGING Diagnoses Other symptoms and signs involving the nervous system Procedures MRA CAROTID WO IVCON MRA, NECK; W/O CONTRAST Aric Huston Jr., MD [address] [address] Mr Imaging Referral ID Status Reason Start Date Expiration Date Visits Requested Visits Authorized [id number] Pending Review Auto-Generat ed Referral 2 05/12/2023 1 1 Specialty Diagnoses / Procedures Referred By Contac t Referred To Contact MR IMAGING Diagnoses Other symptoms and signs involving the nervous system Procedures MRA BRAIN WO IVCON MRA, HEAD W/O CONTRAST Aric Huston Jr., MD [address] [facility] [address] [place] [address] Mr Imaging Referral ID Status Reason Start Date Expiration Date Visits Requested Visits Authorized [id number] Pending Review Auto-Generat ed Referral 2 05/12/2023 1 1 Specialty Diagnoses / Procedures Referred By Contac t Referred To Contact MR IMAGING Diagnoses Other symptoms and signs involving the nervous system Procedures MRA CAROTID WO IVCON MRA, NECK; W/O CONTRAST Aric Huston Jr., MD [facility] [address] [place] [address] [place] [address] Referral ID Status Reason Start Date Expiration Date V isits Requested Visits Authorized [id number] Closed Auto-Generate d Referral 04/12/2022 05/12/2023 1 1 Specialty Diagnoses / Procedures Referred By Contac t Referred To Contact MR IMAGING Diagnoses Other symptoms and signs involving the nervous system Procedures MRA BRAIN WO IVCON MRA, HEAD W/O CONTRAST Aric Huston Jr., MD [address] [place] [phone] [place] [address] Referral ID Status Reason Start Date Expiration Date V isits Requested Visits Authorized [id number] Closed Auto-Generate d Referral 04/12/2022 05/12/2023 1 1 Specialty Diagnoses / Procedures Referred By Contac t Referred To Contact MR IMAGING Diagnoses 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 status epilepticus, unspecified epilepsy type (HCC) Procedures MRI BRAIN WO IVCON MRI BRAIN BRAIN STEM W/O CONTRAST MATERIAL Aric Huston Jr., MD [address] [place] [address] [address] [place] [address] [place] [address] Referral ID Status Reason Start Date Expiration Date V isits Requested Visits Authorized [id number] Closed Auto-Generate d Referral 03/08/2022 04/07/2023 1 1 Specialty Diagnoses / Procedures Referred By Contac t Referred To Contact Podiatry Diagnoses Incurvated nail Procedures CONSULT TO PODIATRY OFFICE/OUTPATIENT [facility] 60 MINUTES Jaison Max PA-C [address] [place] [address] Referral ID Status Reason Start Date Expiration Date Visits Requested Visits Authorized [id number] Authorized PCP Requested Referral 11/22/2023 11/21/2024 1 1 Specialty Diagnoses / Procedures Referred By Contac t Referred To Contact US IMAGING Diagnoses Screening for abdominal aortic aneurysm Procedures US SCREENING FOR AAA (2017) US ABDOMINAL AORTA REAL TIME SCREEN STUDY AAA Jaison Max PA-C [address] [place] [address] [place] [address] Referral ID Status Reason Start Date Expiration Date Visits Requested Visits Authorized [id number] Pending Review Auto-Generat ed Referral 11/22/2023 12/21/2024 1 1 Specialty Diagnoses / Procedures Referred By Jacqueline cummings Referred To Contact Diagnoses Compression fracture of L1 vertebra, initial encounter ([facility]) Procedures [facility] Florinda Stevenson APRN.NURSE REVIEWER [address] [place] [address] Referral ID Status Reason Start Date Expiration Date Visits Requested Visits Authorized [id number] New Request PCP Requested Referral 06/22/2024 09/20/2024 [...] 4:00am LAB WORK July 23, 2024 5:00am [facility] LAB WORK August 27, 2024 4 :00am [...] 4:00am LAB WORK July 23, 2024 5:00am [facility] LAB WORK August 27, 2024 4 :00am [id number] September 26, 2024 5:1 6am Family History [...] No March 06 2 11:14am Power of Operations General Agent No March 06, 022 11:14am Advance Directive Response Recorded Date/ Time Advance Directives No June 2:48pm Living Will No March 06 2 10:14am Power of Operations General Agent No March 06 022 10:14am Advance Directive Response Recorded Date/ Time Living Will No July 09 025 12:44pm Do you have a Healthcare Power of Operations General Agent? No July 09, 2024 12:44pm Advance Directives [...] 1 Drop, BOTH EYES, DIRECTED, Starting on 04/12/22 at 1400, Until Tue04/13/22 at 0159, Administer for dilation Given 04/12/2022 2:00 PM EST 1 Drop Health Concerns Infection Onset Date Last Indicated Resolved Time COVID-19 Rule-Out 12/07/2022 12/07/2022 Summary Purpose Additional Source Comments Source Comments (unrecognize d section and content) In the event this informatio n is protected by the Federal Confidentiality of Alcohol and Drug Abuse Patient Records regulations: The Federal rules restrict any use of the information to criminally investigate or prosecute any alcohol or drug abuse patient.[facility] the event this information is protected by the Federal Confidentiality of Alcohol and Drug Abuse Patient Records regulations: The Federal rules restrict any use of the information to criminally investigate or prosecute any alcohol or drug abuse patient.[facility] the event this information is protected by the Federal Confidentiality of Alcohol and Drug Abuse Patient Records regulations: The Federal rules restrict any use of the information to criminally investigate or prosecute any alcohol or drug abuse patient.[facility] the event this information is protected by the Federal Confidentiality of Alcohol and Drug Abuse Patient Records regulations: The Federal rules restrict any use of the information to criminally investigate or prosecute any alcohol or drug abuse patient.[facility] the event this information is protected by the Federal Confidentiality of Alcohol and Drug Abuse Patient Records regulations: The Federal rules restrict any use of the information to criminally investigate or prosecute any alcohol or drug abuse patient.[facility] Center[facility] the event this information is protected by the Federal Confidentiality of Alcohol and Drug Abuse Patient Records regulations: The Federal rules restrict any use of the information to criminally investigate or prosecute any alcohol or drug abuse patient.[facility] Center[facility] the event this information is protected by the Federal Confidentiality of Alcohol and Drug Abuse Patient Records regulations: The Federal rules restrict any use of the information to criminally investigate or prosecute any alcohol or drug abuse patient.[facility] the event this information is protected by the Federal Confidentiality of Alcohol and Drug Abuse Patient Records regulations: The Federal rules restrict any use of the information to criminally investigate or prosecute any alcohol or drug abuse patient.[facility] Center[facility] the event this information is protected by the Federal Confidentiality of Alcohol and Drug Abuse Patient Records regulations: The Federal rules restrict any use of the information to criminally investigate or prosecute any alcohol or drug abuse patient.[facility] Center[facility] the event this information is protected by the Federal Confidentiality of Alcohol and Drug Abuse Patient Records regulations: The Federal rules restrict any use of the information to criminally investigate or prosecute any alcohol or drug abuse patient.[facility] Center[facility] the event this information is protected by the Federal Confidentiality of Alcohol and Drug Abuse Patient Records regulations: The Federal rules restrict any use of the information to criminally investigate or prosecute any alcohol or drug abuse patient.[facility] Center[facility] the event this information is protected by the Federal Confidentiality of Alcohol and Drug Abuse Patient Records regulations: The Federal rules restrict any use of the information to criminally investigate or prosecute any alcohol or drug abuse patient.[facility] Center[facility] the event this information is protected by the Federal Confidentiality of Alcohol and Drug Abuse Patient Records regulations: The Federal rules restrict any use of the information to criminally investigate or prosecute any alcohol or drug abuse patient.[facility] CenterIn the event this information is protected by the Federal Confidentiality of Alcohol and Drug Abuse Patient Records regulations: The Federal rules restrict any use of the information to criminally investigate or prosecute any alcohol or drug abuse patient.[facility] CenterIn the event this information is protected by the Federal Confidentiality of Alcohol and Drug Abuse Patient Records regulations: The Federal rules restrict any use of the information to criminally investigate or prosecute any alcohol or drug abuse patient.[facility] CenterIn the event this information is protected by the Federal Confidentiality of Alcohol and Drug Abuse Patient Records regulations: The Federal rules restrict any use of the information to criminally investigate or prosecute any alcohol or drug abuse patient.[facility] CenterIn the event this information is protected by the Federal Confidentiality of Alcohol and Drug Abuse Patient Records regulations: The Federal rules restrict any use of the information to criminally investigate or prosecute any alcohol or drug abuse patient.[facility] CenterIn the event this information is protected by the Federal Confidentiality of Alcohol and Drug Abuse Patient Records regulations: The Federal rules restrict any use of the information to criminally investigate or prosecute any alcohol or drug abuse patient.[facility] CenterIn the event this information is protected by the Federal Confidentiality of Alcohol and Drug Abuse Patient Records regulations: The Federal rules restrict any use of the information to criminally investigate or prosecute any alcohol or drug abuse patient.[facility] CenterIn the event this information is protected by the Federal Confidentiality of Alcohol and Drug Abuse Patient Records regulations: The Federal rules restrict any use of the information to criminally investigate or prosecute any alcohol or drug abuse patient.[facility] CenterIn the event this information is protected by the Federal Confidentiality of Alcohol and Drug Abuse Patient Records regulations: The Federal rules restrict any use of the information to criminally investigate or prosecute any alcohol or drug abuse patient.[facility] CenterIn the event this information is protected by the Federal Confidentiality of Alcohol and Drug Abuse Patient Records regulations: The Federal rules restrict any use of the information to criminally investigate or prosecute any alcohol or drug abuse patient.[facility] CenterIn the event this information is protected by the Federal Confidentiality of Alcohol and Drug Abuse Patient Records regulations: The Federal rules restrict any use of the information to criminally investigate or prosecute any alcohol or drug abuse patient.[facility] CenterIn the event this information is protected by the Federal Confidentiality of Alcohol and Drug Abuse Patient Records regulations: The Federal rules restrict any use of the information to criminally investigate or prosecute any alcohol or drug abuse patient.[facility] CenterIn the event this information is protected by the Federal Confidentiality of Alcohol and Drug Abuse Patient Records regulations: The Federal rules restrict any use of the information to criminally investigate or prosecute any alcohol or drug abuse patient.[facility] CenterIn the event this information is protected by the Federal Confidentiality of Alcohol and Drug Abuse Patient Records regulations: The Federal rules restrict any use of the information to criminally investigate or prosecute any alcohol or drug abuse patient.[facility] CenterIn the event this information is protected by the Federal Confidentiality of Alcohol and Drug Abuse Patient Records regulations: The Federal rules restrict any use of the information to criminally investigate or prosecute any alcohol or drug abuse patient.[facility] CenterIn the event this information is protected by the Federal Confidentiality of Alcohol and Drug Abuse Patient Records regulations: The Federal rules restrict any use of the information to criminally investigate or prosecute any alcohol or drug abuse patient.[facility] CenterIn the event this information is protected by the Federal Confidentiality of Alcohol and Drug Abuse Patient Records regulations: The Federal rules restrict any use of the information to criminally investigate or prosecute any alcohol or drug abuse patient.[facility] CenterIn the event this information is protected by the Federal Confidentiality of Alcohol and Drug Abuse Patient Records regulations: The Federal rules restrict any use of the information to criminally investigate or prosecute any alcohol or drug abuse patient.[facility] CenterIn the event this information is protected by the Federal Confidentiality of Alcohol and Drug Abuse Patient Records regulations: The Federal rules restrict any use of the information to criminally investigate or prosecute any alcohol or drug abuse patient.[facility] CenterIn the event this information is protected by the Federal Confidentiality of Alcohol and Drug Abuse Patient Records regulations: The Federal rules restrict any use of the information to criminally investigate or prosecute any alcohol or drug abuse patient.[facility] CenterIn the event this information is protected by the Federal Confidentiality of Alcohol and Drug Abuse Patient Records regulations: The Federal rules restrict any use of the information to criminally investigate or prosecute any alcohol or drug abuse patient.[facility] CenterIn the event this information is protected by the Federal Confidentiality of Alcohol and Drug Abuse Patient Records regulations: The Federal rules restrict any use of the information to criminally investigate or prosecute any alcohol or drug abuse patient.[facility] CenterIn the event this information is protected by the Federal Confidentiality of Alcohol and Drug Abuse Patient Records regulations: The Federal rules restrict any use of the information to criminally investigate or prosecute any alcohol or drug abuse patient.[facility] CenterIn the event this information is protected by the Federal Confidentiality of Alcohol and Drug Abuse Patient Records regulations: The Federal rules restrict any use of the information to criminally investigate or prosecute any alcohol or drug abuse patient.[facility] Care Teams (unrecognized sec tion and content) Professional Golf Tournament Player Relationship Specialty Start Date End Date Aric Zapien MD [address] [place] [address] PCP - General Family Practice 07/23/15 Professional Golf Tournament Player Relationship Specialty Start Date End Date Aric Zapien MD [address] [place] [address] PCP - General Family Practice 07/23/15 Professional Golf Tournament Player Relationship Specialty Start Date End Date Aric Zapien MD [address] [place] [address] PCP - General Family Medicine 07/23/15 Professional Golf Tournament Player Relationship Specialty Start Date End Date Aric Zapien MD [address] [place] [address] PCP - General Family Medicine 07/23/15 Professional Golf Tournament Player Relationship Specialty Start Date End Date Aric Zapien MD [address] [facility] [place] [address] PCP - General Family Medicine 07/23/15 Professional Golf Tournament Player Relationship Specialty Start Date End Date Aric Zapien MD [address] [facility] [place] [address] PCP - General Family Medicine 07/23/15 Professional Golf Tournament Player Relationship Specialty Start Date End Date Aric Zapien MD [address] [facility] [place] [address] PCP - General Family Medicine 07/23/15 Professional Golf Tournament Player Relationship Specialty Start Date End Date Aric Zapien MD [address] [facility] [place] [address] PCP - General Family Medicine 07/23/15 Professional Golf Tournament Player Relationship Specialty Start Date End Date Aric Zapien MD [address] [facility] [place] [address] PCP - General Family Medicine 07/23/15 Professional Golf Tournament Player Relationship Specialty Start Date End Date Aric Zapien MD [address] [facility] [place] [address] PCP - General Family Medicine 07/23/15 Professional Golf Tournament Player Relationship Specialty Start Date End Date Aric Zapien MD [address] [facility] [place] [address] PCP - General Family Medicine 07/23/15 Professional Golf Tournament Player Relationship Specialty Start Date End Date Aric Zapien MD [address] [facility] [place] [address] PCP - General Family Medicine 07/23/15 Professional Golf Tournament Player Relationship Specialty Start Date End Date Aric Zapien MD [address] [facility] [place] [address] PCP - General Family Medicine 07/23/15 Professional Golf Tournament Player Relationship Specialty Start Date End Date Aric Zapien MD [address] [place] [address] PCP - General Family Medicine 07/23/15 Professional Golf Tournament Player Relationship Specialty Start Date End Date Aric Zapien MD [address] [place], [place] [id number] PCP - General Family Medicine 07/23/15 Professional Golf Tournament Player Relationship Specialty Start Date End Date Aric Zapien MD [address] [place], [place] [address] PCP - General Family Medicine 07/23/15 Professional Golf Tournament Player Relationship Specialty Start Date End Date Aric Zapien MD [address] [place], [place] [id number] PCP - General Family Medicine 07/23/15 Professional Golf Tournament Player Relationship Specialty Start Date End Date Aric Zapien MD [address] [place], [place] [id number] PCP - General Family Medicine 07/23/15 Team Status: Active Member Role Status Dates Dr. Aric Zapien MD Family Provider Active Dr. Aric Zapien MD Primary Care Provider Active Team Status: Inactive Member Role Status Dates Dr. Aric Zapien MD Primary Care Provider, Referring Provider Active Rakel Hodgson SENIOR DEVELOPER, SENIOR DEVELOPER-C Attending Provider Active Team Status: Inactive Member Role Status Dates Dr. Aric Zapien MD Primary Care Provider Active Rakel Hodgson SENIOR DEVELOPER, SENIOR DEVELOPER-C Attending Provider, Referring P roberto Active Professional Golf Tournament Player Relationship Specialty Start Date End Date Aric Zapien MD [address] [facility] [place] [address] PCP - General Family Medicine 07/23/15 Professional Golf Tournament Player Relationship Specialty Start Date End Date Aric Zapien MD [address] [place] [address] PCP - General Family Medicine 07/23/15 Professional Golf Tournament Player Relationship Specialty Start Date End Date Aric Zapien MD [address] [place] [address] PCP - General Family Medicine 07/23/15 Professional Golf Tournament Player Relationship Specialty Start Date End Date Aric Zapien MD [address] [place] [address] PCP - General Family Medicine 07/23/15 Professional Golf Tournament Player Relationship Specialty Start Date End Date Aric Zapien MD [address] [place] [address] PCP - General Family Medicine 07/23/15 Professional Golf Tournament Player Relationship Specialty Start Date End Date Aric Zapien MD [address] [place] [address] PCP - General Family Medicine 07/23/15 Professional Golf Tournament Player Relationship Specialty Start Date End Date Aric Zapien MD [address] [place] [address] PCP - General Family Medicine 07/23/15 Professional Golf Tournament Player Relationship Specialty Start Date End Date Aric Zapien MD [address] [place] [address] PCP - General Family Medicine 07/23/15 Meenakshi Galaviz APRN.NURSE REVIEWER [address] [place] [address] Abrasive Sawyer Family [facility] 05/07/24 Professional Golf Tournament Player Relationship Specialty Start Date End Date Aric Zapien MD [address] [place] [address] PCP - General Family Medicine 07/23/15 Meenakshi Galaviz APRN.NURSE REVIEWER [address] [place] [address] Abrasive [facility] 05/07/24 Florinda Stevenson APRN.NURSE REVIEWER [address] [place] [address] Abrasive Sawyer [facility] 05/07/24 Professional Golf Tournament Player Relationship Specialty Start Date End Date Aric Zapien MD [address] [place] [address] PCP - General Family Medicine 07/23/15 Meenakshi Galaviz APRN.NURSE REVIEWER [address] [place] [address] Abrasive Sawyer [facility] 05/07/24 Florinda Stevenson APRN.NURSE REVIEWER [address] [place] [address] Abrasive Sawyer [facility] 05/07/24 Professional Golf Tournament Player Relationship Specialty Start Date End Date Aric Zapien MD [address] [place] [address] PCP - General Family Medicine 07/23/15 Meenakshi Galaviz APRN.NURSE REVIEWER [address] [place] [address] Abrasive Sawyer [facility] 05/07/24 Florinda Stevenson APRN.NURSE REVIEWER [address] [place] [address] [facility] Professional Golf Tournament Player Relationship Specialty Start Date End Date Aric Zapien MD [address] [facility] [place] [address] [phone] PCP - General Family Medicine 07/23/15 Meenakshi Galaviz GERMAN INSTRUCTOR.NURSE REVIEWER [address] [facility] [place] [address] Abrasive Sawyer Family [facility] 05/07/24 Florinda Stevenson GERMAN INSTRUCTOR.NURSE REVIEWER [address] [facility] [place] [place] [address] [facility] 05/07/24 Professional Golf Tournament Player Relationship Specialty Start Date End Date Aric Zapien MD [address] [facility] [place] [address] PCP - General Family Medicine 07/23/15 Meenakshi Galaviz GERMAN INSTRUCTOR.NURSE REVIEWER [address] [facility] [place] [address] [facility] 05/07/24 Florinda Stevenson GERMAN INSTRUCTOR.NURSE REVIEWER [address] [place] [address] [facility] Medicine 05/07/24 Professional Golf Tournament Player Relationship Specialty Start Date End Date Aric Zapien MD [address] [place] [address] PCP - General Family Medicine 07/23/15 Meenakshi Galaviz GERMAN INSTRUCTOR.NURSE REVIEWER [address] [place] [address] [facility] 05/07/24 Florinda Stevenson APRN.[facility] [address] [facility] [place] [address] [facility] 05/07/24 Team Status: Active Member Role Status Dates Dr. Aric Zapien MD Primary Care Provider Active Team Status: Active Member Role Status Dates Dr. Arci Zapien MD Primary Care Provider Active Start: [...] September 26, 2024 End: September 26, 2024 Professional Golf Tournament Player Relationship Specialty Start Date End Date Aric Zapien MD [address] [place] [address] PCP - General Family Medicine 07/23/15 Meenaskhi Galaviz APRN.NURSE REVIEWER [address] [place] [address] Abrasive Sawyer [facility] 05/07/24 Florinda Stevenson APRN.NURSE REVIEWER [address] [place] [address] Abrasive Sawyer [facility] 05/07/24 Reason for Visit (unrecogniz ed section and content) Reason Comments Diabetes Specialty Diagnoses / Procedures Referred By Contac t Referred To Contact Family Practice / FAMILY MEDICINE Diagnoses 6 month follow up Procedures 4C EST Aric Zapien MD [address] [place] [address] Aric Zapien MD [address] [place] [address] Referral ID Status Reason Start Date Expiration Date V isits Requested Visits Authorized [id number] Closed Financial Clearance Required - OON Payor [facility] Obtained 09/24/2021 05/29/2022 1 1 Reason Onset Date Comments Refill Request 03/04/2022 Reason Comments Follow Up Specialty Diagnoses / Procedures Referred By Contac t Referred To Contact Neurology / FAMILY MEDICINE Diagnoses Seizures (HCC) Procedures CONSULT TO NEUROLOGY OFFICE/OUTPATIENT [facility] 60-74 MINUTES Aric Zapien MD [address] [place] [address] [facility] [address] [place] [address] Referral ID Status Reason Start Date Expiration Date V isits Requested Visits Authorized [id number] Closed PCP Requested Referral 12/25/2021 05/29/2022 1 1 Reason Comments Medicare Wellness Exam Reason Comments Orders Reason Onset Date Comments ACM COLEMAN RN 02/23/2022 SPC/SUPD rev. 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 Procedures CONSULT TO OPHTHALMOLOGY OFFICE/OUTPATIENT [facility] 60-74 MINUTES Jaison Max PA-C [address] [place] [address] Referral ID Status Reason Start Date Expiration Date V isits Requested Visits Authorized [id number] Closed PCP Requested Referral 03/09/2022 03/09/2023 1 [...] W/O CONTRAST MATERIAL Aric Huston Jr., MD [address] [facility] [address] [place] [address] [place] [address] Referral ID Status Reason Start Date Expiration Date V isits Requested Visits Authorized [id number] Closed Auto-Generate d Referral 03/08/2022 04/07/2023 1 1 Reason Onset Date Comments Refill Request 11/08/2023 Reason Comments Follow Up 6 month Reason Onset Date Comments Population Health Navigation Outreach 12/15/2023 ANTHEM-AWV Reason Onset Date Comments Population Health Navigation Outreach 03/07/2024 Jodie Leal PCSA Reason Onset Date Comments Population Health Navigation Outreach 05/28/2024 MCAIP OUTREACH Reason [...] section and content) DATE CREATED AUTHOR 06/27/2024 [facility] DATE CREATED AUTHOR AUTHOR'S ORGANIZ ATION 10/27/2024 [facility] DATE CREATED AUTHOR AUTHOR'S ORGANIZ ATION 11/28/2024 [facility] FOR RECORDS PERTAINING TO PATIENTS WHO [...] BE BASED ON THE PRIMARY CLINICAL RECORDS. [facility]. provides no warranty or guarantee of the accuracy or completeness of information in this document.
[2025-01-02 09:30] LABS: Hematocrit 42.3 % (40-54); Hemoglobin 13.9 g/dL (13.0-16.5); Mean Corp Hgb Conc 32.9 g/dL (32-36); Mean Corpuscular Volume 94.6 fL (80-94); Mean Platelet Vol. 11.5 fl (6.2-12.0); Platelet Count 215 K/mm3 (150-450); RBC Distribution Width CV 13.2 % (11.6-14.6); RBC Distribution Width SD 45.1 fl (35.1-43.9); Red Blood Count 4.47 M/mm3 (4.6-6.2); White Blood Count 7.4 K/mm3 (4.4-11.0)
[2025-01-02 09:38] LABS: Valproic Acid (Depakene) Level 73 ug/mL (50-100)
[2025-01-02 09:46] LABS: AST(SGOT) 17 U/L (<=37); Alanine Aminotransfer ALT/SGPT 8 U/L (<=46); Albumin, Serum 4.0 g/dL (3.4-4.8); Alkaline Phosphatase 59 U/L (40-129); Anion Gap 11 (5-15); BUN 29 mg/dL (4-19); BUN/Creat Ratio 21.2 RATIO (10-20); Calcium,Total 9.1 mg/dL (7.6-11.0); Carbon Dioxide 25.3 mmol/L (21.0-32.0); Chloride 106 mmol/L (98-108); Globulin 2.2 g/dL (2.2-4.2); Glucose 95 mg/dL (70-99); Potassium 4.7 mmol/L (3.3-5.1)
== END ==
LOC: OLS.SWAL 05:00
PROVIDERS: PCP Family Medicine; Visit Provider Internal Medicine
DX: R25.1 Tremor, unspecified (principal); Z79.899 Other long term (current) drug therapy
CPT/HCPCS: 36415; 80053; 80164; 85027

== ENCOUNTER → 2025-01-10 21:50 | Outpatient (REF) | payer MEDICARE, MEDICAID, SELFPAY ==
[2025-01-11 07:13] LABS: Mucous, Urine 0 SEEN /hpf (<or=2+); Red Blood Cells-Urine 0 SEEN /hpf (0-5); Squamous Epithelial Cells - UA 0 SEEN /hpf (0-5)
--- OUTSIDE RECORDS SUMMARY | 2025-01-11 07:27 | XMS RPT_ITS | CCD ---
Author Organization [facility] ion [facility] Care Team Providers Care Cardroom Drawing Runner Name Role Phone Aric Zapien MD Primary Care Provider [phone] Aric Zapien Primary Care Provider Dr. Aric Zapien Referring Provider Gokul AIRLINE DISPATCHER, AYLIN Ellington Attending Provider Aric Zapien MD Primary Care Provider Haagen MOTORIZED SQUAD CAPTAIN.ONCOLOGY RN, Meenakshi Unavailable Suppan MOTORIZED SQUAD CAPTAIN.ONCOLOGY RN, Florinda A Unavailable Suppan MOTORIZED SQUAD CAPTAIN.ONCOLOGY RN, Florinda A Unavailable Dr. Aric Zapien MD [...] STEVENSON Attending Unavailable RENUKA MAX Attending Unavailable [facility] Primary Care Unavailable Gudla TANESHA, Jigna Attending Unavailable [facility] Primary Care Unavailable Gudla OLS, Jigna Attending Unavailable [facility] Primary Care Unavailable Gudla OLS, Jigna Attending Unavailable [place], Aric Primary Care Unavailable Gudla OLS, Jigna Referring Unavailable [place], Aric Primary Care Unavailable Gudla OLS, Jigna Attending Unavailable [place], Aric Primary Care Unavailable Gudla OLS, Jigna Attending Unavailable [place], Aric Primary Care Unavailable Yann Miller Attending Unavailable Priscilla Reynaga Referring Unavailable [place], Aric Primary Care Unavailable Yann Ascencio Attending Unavailable [place], Aric Primary Care Unavailable Yann Ascencio Consulting Unavailable Yann Ascencio Attending Unavailable Yann Ascencio Admitting Unavailable [place], Aric Primary Care Unavailable Estuardo Irby Attending Unavailabl e [place], Aric Primary Care Unavailable Gudla OLS, Jigna Attending Unavailable Gudla OLS, Jigna Attending Unavailable [facility] Primary Care Unavailable Gudla OLS, Jigna Referring Unavailable [facility] Primary Care Unavailable Gudla OLS, Jigna Attending Unavailable [facility] Primary Care Unavailable Gudla TANESHA, Jigna Attending Unavailable [facility] Primary Care Unavailable Yann Ascencio Admitting Unavailable Yann Ascencio Attending Unavailable Allergies Allergy Classification Reported Allergen(s) Allergy Type Date of Onset Reaction(s) Facility (20 sources) Contrast media; Translations: [DYE] Drug Intolerance 03-02-20 16 Other: See Comments [facility] Work Phone: (4 sources) Triiodobenzoic Acids Allergy to substance 03-06-20 Anaphylaxis [facility] Comment on above: used for heart cath (1 source) Iodinated Contrast Media Drug allergy (disorder) 07-09-19 [facility] Repository Medications Current Medications Medication Drug Class(es) [...] Blood Pressure Test Kit-Medium Active 0 .Route 1 June 23, 2023 12:00am As directed Blood Pressure Test Kit-Medium kit (2 sources) Start: 06-23-2023 Blood Pressure Test Kit-Medium kit Active 0 .Route June 23, 2023 1:00am As directed Blood-Glucose Meter monitoring kit (2 sources) Start: 04-01-2022 End: 04-02-2022 Blood-Glucose Meter monitoring kit Indications: Type 2 diabetes mellitus without complication, without long-term current use of insulin ([facility]) Glucose Meter of Choice - Kit - [...] complication, without long-term current use of insulin ([facility]) Take 1 tablet by mouth once daily. For kidneys 90 tablet 3 06/25/2024 06/25/2025 Active 24 hr metFORMIN hydrochloride 500 mg extended release oral tablet (20 sources) Biguanide Start: 11-16-19 End: 11-22-19 take 1 tablet by mouth once daily at breakfast metFORMIN ER (GLUCOPHAGE XR) 500 mg 24 hr tablet Indications: Type 2 diabetes mellitus without complication, without long-term current use of insulin ([facility]) Take 1 tablet by mouth daily with breakfast. 90 tablet 3 11/22/2023 Active Start: 03-26-2021 End: 09-15-2022 take 1 tablet by mouth once daily at breakfast metFORMIN ER (GLUCOPHAGE XR) 500 mg 24 hr tablet Indications: Type 2 diabetes mellitus without complication, without long-term current use of insulin ([facility]) Take 1 tablet by mouth daily with [...] Comment on above: Take 1 tablet by [facility] twice daily. Needs seen and labs to continue to prescribe. Take 1 tablet by onelia twice daily for 14 days. Needs seen [...] release 24hr Discontinued 240 mg PO DAILY September 06, 2023 8:48pm December 05, 2023 9:41am Start: 02-10-2015 End: 02-10-2015 take 1 capsule by mouth twice daily Diltiazem Hcl 120 MG capsule Discontinued 120 mg PO TWICE A DAY 60 February 10, 2015 12:00am February 10, 2015 12:35pm Comment on above: Take 1 capsule by mo [facility] once daily. folic acid/multivit-min/ lutein (CENTRUM SILVER [...] Comment on above: Take 1 tablet by [facility] once daily. guaifenesin/dextrometh orphan (DEXTROMETHORPHAN-GUAI FENESIN ORAL) [...] 2013 1:09pm Start: 04-15-2013 End: 06-30-2013 Hydrochlorothiazide Disconti nued April 15, 2013 12:00am June 30, 2013 12:09pm hydroCHLOROthiazide 12.5 mg / lisinopril 10 mg oral tablet (4 sources) Thiazide Diuretic, Angiotensin Converting Enzyme Inhibitor Start: 04-15-2013 End: 09-17-2014 take 1 tablet by mouth once daily Lisinopril-Hydrochlorothiazide (Zestoretic 10/12.5 Tablet) 1 TABLET tablet Discontinued 2 {tbl} PO DAILY April 15, 2013 1:00am September 17, 2014 9:30am Ka-Wim-Pplzo-K1-Lycop en-Lutein (Centrum Silver Men) 300-600-300 mcg tablet (3 sources) Start: 11-15-2022 End: 11-17-2022 Cf-Cqz-Skojx-O9-Xuagkxh-Bxlr in (Centrum Silver Men) 300-600-300 mcg tablet Discontinued 1 {tbl} PO DAILY November 15, 2022 12:00am November 17, 2022 3:04pm Start: 11-15-2022 End: 11-17-2022 take 300-600 tablets by mouth once daily Wh-Fav-Jxelz-Z8-Yvlqyyt-Rbbtlu (Centrum Silver Men) 300-600-300 mcg tablet Discontinued [...] source) Onychomycosis; Translations: [Tinea unguium] Episodic Other aftercare (1 source) Other jail (current) drug therapy; Translations: [Other jail (current) drug therapy] Onset: 01-02-2025 Episodic Other and ill-defined cerebrovascular disease (4 [...] encounter for closed fracture] 06-22-2024 Episodic Other nervous system disorders (1 source) Tremor, unspecified; Translations: [Tremor, unspecified] Onset: 01-02-2025 Episodic Other non-traumatic joint disorders (1 source) [...] sources) Long-term current use of anticoagulant; 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] Onset: 09-30-2022 09-30-2022 Episodic Other aftercare (1 source) 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; Translations: [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] Onset: 09-30-2022 [...] Test Name Value Interpretation Reference Range Facility CBC-Complete Blood Cnt No Di ffon 01-02-2025 Erythrocyte distribution width (RBC) [Ratio] 13.2 % Normal 11.6-14.6 [facility] Comment on above: Order Comment: 133 Performed By: #### L 500.4050, L503.6005, L300.8000, L100.0100, L501.5425 #### [facility] [address] [place], [address] Hematocrit (Bld) [Volume fraction] 42.3 % Normal 40-54 [facility] Comment on above: Order Comment: 133 Performed By: #### L 500.4050, L503.6005, L300.8000, L100.0100, L501.5425 #### [facility] [address] [place], [address] Hemoglobin (Bld) [Mass/Vol] 13.9 g/dL Normal 13.0-16.5 [facility] Comment on above: Order Comment: 133 Performed By: #### L 500.4050, L503.6005, L300.8000, L100.0100, L501.5425 #### [facility] [address] [place], [address] MCH (RBC) [Entitic mass] 31.1 pg Normal 27.0-32.0 [facility] Comment on above: Order Comment: 133 Performed By: #### L 500.4050, L503.6005, L300.8000, L100.0100, L501.5425 #### [facility] [address] [place], [address] MCHC (RBC) [Mass/Vol] 32.9 g/dL Normal 32-36 [facility] Comment on above: Order Comment: 133 Performed By: #### L 500.4050, L503.6005, L300.8000, L100.0100, L501.5425 #### [facility] [address] [place], [address] MCV (RBC) [Entitic vol] 94.6 fL High 80-94 [facility] Comment on above: Order Comment: 133 Performed By: #### L 500.4050, L503.6005, L300.8000, L100.0100, L501.5425 #### [facility] [address] [place], [address] Platelet mean volume (Bld) [Entitic vol] 11.5 fL Normal 6.2-12.0 [facility] Comment on above: Order Comment: 133 Performed By: #### L 500.4050, L503.6005, L300.8000, L100.0100, L501.5425 #### [facility] [address] [place], [address] Platelets (Bld) [#/Vol] 215 10*3/uL Normal 150-450 [facility] Comment on above: Order Comment: 133 Performed By: #### L 500.4050, L503.6005, L300.8000, L100.0100, L501.5425 #### [facility] [address] [place], [address] RBC (Bld) [#/Vol] 4.47 10*6/uL Low 4.6-6.2 [facility] Comment on above: Order Comment: 133 Performed By: #### L 500.4050, L503.6005, L300.8000, L100.0100, L501.5425 #### [facility] [address] [place], [address] RDW SD 45.1 fl High 35.1-43.9 [facility] Comment on above: Order Comment: 133 Performed By: #### L 500.4050, L503.6005, L300.8000, L100.0100, L501.5425 #### [facility] [address] [place], [address] WBC (Bld) [#/Vol] 7.4 10*3/uL Normal 4.4-11.0 [facility] Comment on above: Order Comment: 133 Performed By: #### L 500.4050, L503.6005, L300.8000, L100.0100, L501.5425 #### [facility] [address] [place], [address] Comprehensive Metabolic Prof ilon 01-02-2025 Albumin [Mass/Vol] 4.0 g/dL Normal 3.4-4.8 [facility] Comment on above: Order Comment: 133 Performed By: #### L 500.4050, L503.6005, L300.8000, L100.0100, L501.5425 #### [facility] [address] [place], [address] Albumin/Globulin [Mass ratio] 1.8 {ratio} Normal 0.9-2.4 [facility] Comment on above: Order Comment: 133 Performed By: #### L 500.4050, L503.6005, L300.8000, L100.0100, L501.5425 #### [facility] [address] [place], [address] ALK PHOS 59 U/L Normal 40-129 [facility] Comment on above: Order Comment: 133 Performed By: #### L 500.4050, L503.6005, L300.8000, L100.0100, L501.5425 #### [facility] [address] [place] [place], [address] ALT [Catalytic activity/Vol] 8 U/L Normal <=46 [facility] Comment on above: Order Comment: 133 Performed By: #### L 500.4050, L503.6005, L300.8000, L100.0100, L501.5425 #### [facility] [address] [place], [address] AST [Catalytic activity/Vol] 17 U/L Normal <=37 [facility] Comment on above: Order Comment: 133 Performed By: #### L 500.4050, L503.6005, L300.8000, L100.0100, L501.5425 #### [facility] [address] [place], [address] Bilirubin [Mass/Vol] 0.23 mg/dL Normal 0.00-1.30 [facility] Comment on above: Order Comment: 133 Performed By: #### L 500.4050, L503.6005, L300.8000, L100.0100, L501.5425 #### [facility] [address] [place], [address] BUN/CRE 21.2 RATIO High 10-20 [facility] Comment on above: Order Comment: 133 Performed By: #### L 500.4050, L503.6005, L300.8000, L100.0100, L501.5425 #### [facility] [address] [place], [address] Calcium [Mass/Vol] 9.1 mg/dL Normal 7.6-11.0 [facility] Comment on above: Order Comment: 133 Performed By: #### L 500.4050, L503.6005, L300.8000, L100.0100, L501.5425 #### [facility] [address] [place], [address] Chloride [Moles/Vol] 106 mmol/L Normal 98-108 [facility] Comment on above: Order Comment: 133 Performed By: #### L 500.4050, L503.6005, L300.8000, L100.0100, L501.5425 #### [facility] [address] [place], [address] CO2 [Moles/Vol] 25.3 mmol/L Normal 21.0-32.0 [facility] Comment on above: Order Comment: 133 Performed By: #### L 500.4050, L503.6005, L300.8000, L100.0100, L501.5425 #### [facility] [address] [place], [address] Creatinine [Mass/Vol] 1.35 mg/dL High 0.70-1.20 [facility] Comment on above: Order Comment: 133 Performed By: #### L 500.4050, L503.6005, L300.8000, L100.0100, L501.5425 #### [facility] [address] [place], [address] GAP 11 Normal 5-15 [facility] Comment on above: Order Comment: 133 Performed By: #### L 500.4050, L503.6005, L300.8000, L100.0100, L501.5425 #### [facility] [address] [place], [address] GFR/1.73 sq M.predicted among non-blacks MDRD (S/P/Bld) [Vol rate/Area] 58 mL/min/{1.73_m2} Low >60 [facility] Comment on above: Order Comment: 133 Result Comment: mL/m in/1.73m2 CKD-EPI Creatinine Equation (2020) Performed By: #### L 500.4050, L503.6005, L300.8000, L100.0100, L501.5425 #### [facility] [address] [place], [address] Globulin (S) [Mass/Vol] 2.2 g/dL Normal 2.2-4.2 [facility] Comment on above: Order Comment: 133 Performed By: #### L 500.4050, L503.6005, L300.8000, L100.0100, L501.5425 #### [facility] [address] [place], [address] Glucose [Mass/Vol] 95 mg/dL Normal 70-99 [facility] Comment on above: Order Comment: 133 Performed By: #### L 500.4050, L503.6005, L300.8000, L100.0100, L501.5425 #### [facility] [address] [place], [address] Potassium [Moles/Vol] 4.7 mmol/L Normal 3.3-5.1 [facility] Comment on above: Order Comment: 133 Performed By: #### L 500.4050, L503.6005, L300.8000, L100.0100, L501.5425 #### [facility] [address] [place], [address] Sodium [Moles/Vol] 143 mmol/L Normal 133-145 [facility] Comment on above: Order Comment: 133 Performed By: #### L 500.4050, L503.6005, L300.8000, L100.0100, L501.5425 #### [facility] [address] [place], [address] T PROT 6.2 g/dL Normal 5.9-8.4 [facility] Comment on above: Order Comment: 133 Performed By: #### L 500.4050, L503.6005, L300.8000, L100.0100, L501.5425 #### [facility] [address] [place], [address] Urea nitrogen [Mass/Vol] 29 mg/dL High 4-19 [facility] Comment on above: Order Comment: 133 Performed By: #### L 500.4050, L503.6005, L300.8000, L100.0100, L501.5425 #### [facility] [address] [place], [address] Valproic Acid (Depakene) Lev cecil 01-02-2025 VALPROIC ACID 73 ug/mL Normal 50-100 [facility] Comment on above: Order Comment: 133 Result Comment: Valp roic Acid concentrations >100 ug/mL are potentially toxic. Performed By: #### L 500.4050, L503.6005, L300.8000, L100.0100, L501.5425 #### [facility] [address] [place], [place], [address] Phenytoin (Dilantin) Levelon 11-27-2024 Phenytoin [Mass/Vol] 1.0 ug/mL Low 10.0-20.0 [facility] Comment on above: Order Comment: [...] seizures. Performed By: #### L 501.7700 #### [facility] [address] [place], [place], [address] [id number] 11-08-2024 [facility] Misc. COMMENT Normal . [facility] Comment on above: Order Comment: Y Result Comment: Test Ordered: [id number] Diltiazem(Cardizem,Dilacor) S Diltiazem <20 [L ] ng/ml MX Reference Range: 50 - 200 Note: Analysis performed on a micro-specimen. This test was developed and its performance characteristics determined by [facility]. It has not been cleared or approved by the Food and Drug Administration. Performed at: [facility] [address] [id number] Polisher Hand: Carly [facility], Phone: [phone] Performed at: [address] [id number] Polisher Hand: Enrico Berg PhD, Phone: [phone] Performed By: #### L 500.4050, L503.6005, L300.8000, L100.0100, L501.5425 #### [facility] [address] [place], [place], [address] [id number] 10-30-2024 [facility]. COMMENT Normal . [facility] Comment on above: Order Comment: Y Result Comment: Test Ordered: [id number] Diltiazem(Cardizem,Dilacor) S Diltiazem ng/ml MX Reference Range: . Test not performed Initial assay failure. Insufficient specimen volume to repeat analysis. Performed at: [facility] [address] [id number] Polisher Hand: Carly Azar [facility], Phone: [phone] Performed at: [address] [id number] Polisher Hand: Enrico Berg PhD, Phone: [phone] Performed By: #### L 500.4050, L503.6005, L300.8000, L100.0100, L501.5425 #### [facility] [place], [address] [facility] 10-25-2024 [facility] Telephone (ANN MARIE) REINA SULLIVAN ([id number]) 1955 M Date Time Provider Department 10/25/24 ARIC ZAPIEN [facility] During your visit today, we recorded the [...] unspecified na*09/30/2022 Left atrial enlargement [I51.7] 09/30/2022 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 *09/30/2022 Migraine [...] Status:Closed by NIDA ROOT on 10/25/24 Normal [facility] CBC W/Diff, Automatedon 05- Absolute Lymph 2.10 X10 3/uL Normal 0.83-4.51 [facility] Comment on above: Order Comment: Y Performed By: #### L 500.4050, L503.6005, L300.8000, L100.0100, L501.5425 #### [facility] [address] [place], [address] Absolute Neut 3.2 X10 3/uL Normal 2.0-7.7 [facility] Comment on above: Order Comment: Y Performed By: #### L 500.4050, L503.6005, L300.8000, L100.0100, L501.5425 #### [facility] [address] [place], [address] Basophils/100 WBC (Bld) 0.6 % Normal 0-1 [facility] Comment on above: Order Comment: Y Performed By: #### L 500.4050, L503.6005, L300.8000, L100.0100, L501.5425 #### [facility] [address] [place], [address] Eosinophils/100 WBC (Bld) 5.3 % High 0-5 [facility] Comment on above: Order Comment: Y Performed By: #### L 500.4050, L503.6005, L300.8000, L100.0100, L501.5425 #### [facility] [address] [place], [address] Erythrocyte distribution width (RBC) [Ratio] 15.0 % High 11.6-14.6 [facility] Comment on above: Order Comment: Y Performed By: #### L 500.4050, L503.6005, L300.8000, L100.0100, L501.5425 #### [facility] [address] [place], [address] Hematocrit (Bld) [Volume fraction] 42.2 % Normal 40-54 [facility] Comment on above: Order Comment: Y Performed By: #### L 500.4050, L503.6005, L300.8000, L100.0100, L501.5425 #### [facility] [address] [place], [address] Hemoglobin (Bld) [Mass/Vol] 13.7 g/dL Normal 13.0-16.5 [facility] Comment on above: Order Comment: Y Performed By: #### L 500.4050, L503.6005, L300.8000, L100.0100, L501.5425 #### [facility] [address] [place], [address] IG% 0.500 Normal 0.0-0.9 [facility] Comment on above: Order Comment: Y Result Comment: IG% - Immature Granulocytes (promyelocytes, myelocytes and metamyelocytes) > 1% indicates that a LEFT SHIFT is Present. Performed By: #### L 500.4050, L503.6005, L300.8000, L100.0100, L501.5425 #### [facility] [address] [place], [address] Lymphocytes/100 WBC (Bld) 33.4 % Normal 19-41 [facility] Comment on above: Order Comment: Y Performed By: #### L 500.4050, L503.6005, L300.8000, L100.0100, L501.5425 #### [facility] [address] [place], [address] MCH (RBC) [Entitic mass] 30.7 pg Normal 27.0-32.0 [facility] Comment on above: Order Comment: Y Performed By: #### L 500.4050, L503.6005, L300.8000, L100.0100, L501.5425 #### [facility] [address] [place], [address] MCHC (RBC) [Mass/Vol] 32.5 g/dL Normal 32-36 [facility] Comment on above: Order Comment: Y Performed By: #### L 500.4050, L503.6005, L300.8000, L100.0100, L501.5425 #### [facility] [address] [place], [address] MCV (RBC) [Entitic vol] 94.6 fL High 80-94 [facility] Comment on above: Order Comment: Y Performed By: #### L 500.4050, L503.6005, L300.8000, L100.0100, L501.5425 #### [facility] [address] [place], [address] Monocytes/100 WBC (Bld) 9.4 % Normal 0-10 [facility] Comment on above: Order Comment: Y Performed By: #### L 500.4050, L503.6005, L300.8000, L100.0100, L501.5425 #### [facility] [address] [place], [address] Neutrophils/100 WBC (Bld) 50.8 % Normal 47-70 [facility] Comment on above: Order Comment: Y Performed By: #### L 500.4050, L503.6005, L300.8000, L100.0100, L501.5425 #### [facility] [address] [place], [address] Nucleated RBC (Bld) [#/Vol] 0 10*3/uL Normal 0-5 [facility] Comment on above: Order Comment: Y Performed By: #### L 500.4050, L503.6005, L300.8000, L100.0100, L501.5425 #### [facility] [address] [place], [address] Platelet mean volume (Bld) [Entitic vol] 10.9 fL Normal 6.2-12.0 [facility] Comment on above: Order Comment: Y Performed By: #### L 500.4050, L503.6005, L300.8000, L100.0100, L501.5425 #### [facility] [address] [place], [address] Platelets (Bld) [#/Vol] 236 10*3/uL Normal 150-450 [facility] Comment on above: Order Comment: Y Performed By: #### L 500.4050, L503.6005, L300.8000, L100.0100, L501.5425 #### [facility] [address] [place], [address] RBC (Bld) [#/Vol] 4.46 10*6/uL Low 4.6-6.2 [facility] Comment on above: Order Comment: Y Performed By: #### L 500.4050, L503.6005, L300.8000, L100.0100, L501.5425 #### [facility] [address] [place], [address] RDW SD 52.3 fl High 35.1-43.9 [facility] Comment on above: Order Comment: Y Performed By: #### L 500.4050, L503.6005, L300.8000, L100.0100, L501.5425 #### [facility] [address] [place], [address] WBC (Bld) [#/Vol] 6.3 10*3/uL Normal 4.4-11.0 [facility] Comment on above: Order Comment: Y Performed By: #### L 500.4050, L503.6005, L300.8000, L100.0100, L501.5425 #### [facility] [address] [place], [address] Comprehensive Metabolic Prof [facility] 10-23-2024 Albumin [Mass/Vol] 4.2 g/dL Normal 3.4-4.8 [facility] Comment on above: Order Comment: Y Performed By: #### L 500.4050, L503.6005, L300.8000, L100.0100, L501.5425 #### [facility] [address] [place], [address] Albumin/Globulin [Mass ratio] 1.7 {ratio} Normal 0.9-2.4 [facility] Comment on above: Order Comment: Y Performed By: #### L 500.4050, L503.6005, L300.8000, L100.0100, L501.5425 #### [facility] [address] [place], [address] ALK PHOS 63 U/L Normal 40-129 [facility] Comment on above: Order Comment: Y Performed By: #### L 500.4050, L503.6005, L300.8000, L100.0100, L501.5425 #### [facility] [address] [place], [address] ALT [Catalytic activity/Vol] 13 U/L Normal <=46 [facility] Comment on above: Order Comment: Y Performed By: #### L 500.4050, L503.6005, L300.8000, L100.0100, L501.5425 #### [facility] [address] [place], [address] AST [Catalytic activity/Vol] 16 U/L Normal <=37 [facility] Comment on above: Order Comment: Y Performed By: #### L 500.4050, L503.6005, L300.8000, L100.0100, L501.5425 #### [facility] [address] [place], [address] Bilirubin [Mass/Vol] 0.30 mg/dL Normal 0.00-1.30 [facility] Comment on above: Order Comment: Y Performed By: #### L 500.4050, L503.6005, L300.8000, L100.0100, L501.5425 #### [facility] [address] [place], [address] BUN/CRE 18.7 RATIO Normal 10-20 [facility] Comment on above: Order Comment: Y Performed By: #### L 500.4050, L503.6005, L300.8000, L100.0100, L501.5425 #### [facility] [address] [place], [address] Calcium [Mass/Vol] 9.4 mg/dL Normal 7.6-11.0 [facility] Comment on above: Order Comment: Y Performed By: #### L 500.4050, L503.6005, L300.8000, L100.0100, L501.5425 #### [facility] [address] [place], [address] Chloride [Moles/Vol] 106 mmol/L Normal 98-108 [facility] Comment on above: Order Comment: Y Performed By: #### L 500.4050, L503.6005, L300.8000, L100.0100, L501.5425 #### [facility] [address] [place], [address] CO2 [Moles/Vol] 24.9 mmol/L Normal 21.0-32.0 [facility] Comment on above: Order Comment: Y Performed By: #### L 500.4050, L503.6005, L300.8000, L100.0100, L501.5425 #### [facility] [address] [place], [address] Creatinine [Mass/Vol] 1.27 mg/dL High 0.70-1.20 [facility] Comment on above: Order Comment: Y Performed By: #### L 500.4050, L503.6005, L300.8000, L100.0100, L501.5425 #### [facility] [address] [place], [address] GAP 12 Normal 5-15 [facility] Comment on above: Order Comment: Y Performed By: #### L 500.4050, L503.6005, L300.8000, L100.0100, L501.5425 #### [facility] [address] [place], [address] GFR/1.73 sq M.predicted among non-blacks MDRD (S/P/Bld) [Vol rate/Area] 62 mL/min/{1.73_m2} Normal >60 [facility] Comment on above: Order Comment: Y Result Comment: mL/m in/1.73m2 CKD-EPI Creatinine Equation (2020) Performed By: #### L 500.4050, L503.6005, L300.8000, L100.0100, L501.5425 #### [facility] [address] [place], [address] Globulin (S) [Mass/Vol] 2.4 g/dL Normal 2.2-4.2 [facility] Comment on above: Order Comment: Y Performed By: #### L 500.4050, L503.6005, L300.8000, L100.0100, L501.5425 #### [facility] [address] [place], [address] Glucose [Mass/Vol] 97 mg/dL Normal 70-99 [facility] Comment on above: Order Comment: Y Performed By: #### L 500.4050, L503.6005, L300.8000, L100.0100, L501.5425 #### [facility] [address] [place], [address] Potassium [Moles/Vol] 4.4 mmol/L Normal 3.3-5.1 [facility] Comment on above: Order Comment: Y Performed By: #### L 500.4050, L503.6005, L300.8000, L100.0100, L501.5425 #### [facility] [address] [place], [address] Sodium [Moles/Vol] 143 mmol/L Normal 133-145 [facility] Comment on above: Order Comment: Y Performed By: #### L 500.4050, L503.6005, L300.8000, L100.0100, L501.5425 #### [facility] [address] [place] [place], [address] T PROT 6.7 g/dL Normal 5.9-8.4 [facility] Comment on above: Order Comment: Y Performed By: #### L 500.4050, L503.6005, L300.8000, L100.0100, L501.5425 #### [facility] [address] [place], [address] Urea nitrogen [Mass/Vol] 24 mg/dL High 4-19 [facility] Comment on above: Order Comment: Y Performed By: #### L 500.4050, L503.6005, L300.8000, L100.0100, L501.5425 #### [facility] [address] [place], [address] Hemoglobin A1con 10-23-2024 HbA1c (Bld) [Mass fraction] 6.2 % High <=5.6 [facility] Comment on above: Order Comment: Y Result Comment: Norm al < 5.7 % Prediabetic 5.7 - 6.4 % Diabetic >or= 6.5 % Please note range changes. Performed By: #### L 500.4050, L503.6005, L300.8000, L100.0100, L501.5425 #### [facility] [address] [place], [address] Magnesiumon 10-23-2024 Magnesium [Mass/Vol] 2.4 mg/dL High 1.5-2.2 [facility] Comment on above: Order Comment: Y Performed By: #### L 500.4050, L503.6005, L300.8000, L100.0100, L501.5425 #### [facility] [address] [place], [address] Valproic Acid (Depakene) Lev cecil 10-23-2024 VALPROIC ACID 75 ug/mL Normal 50-100 [facility] Comment on above: Order Comment: Y Result Comment: Valp roic Acid concentrations >100 ug/mL are potentially toxic. Performed By: #### L 500.4050, L503.6005, L300.8000, L100.0100, L501.5425 #### [facility] [address] [place], [address] Anion gap in Serum or Plasma Ordered By: Jigna Brantley on 09-26-2024 Anion gap [Moles/Vol] 12 mmol/L 5-15 [facility] BUN/creatinine ratioOrdered By: Jigna Brantley on 09-26-2024 Urea nitrogen/Creatinine [Mass ratio] 24.2 mg/mg High 10-20 [facility] Basic Metabolic Profile (BMP )on 09-26-2024 BUN/CRE 24.2 RATIO High - [facility] Comment on above: Order Comment: 209 Performed By: #### L 501.5200, L500.2500 #### [facility] [address] [place], [address] Calcium [Mass/Vol] 9.8 mg/dL Normal 7.6-11.0 [facility] Comment on above: Order Comment: 209 Performed By: #### L 501.5200, L500.2500 #### [facility] [address] [place], [address] Chloride [Moles/Vol] 103 mmol/L Normal 98-108 [facility] Comment on above: Order Comment: 209 Performed By: #### L 501.5200, L500.2500 #### [facility] [address] [place], [address] CO2 [Moles/Vol] 26.1 mmol/L Normal 21.0-32.0 [facility] Comment on above: Order Comment: 209 Performed By: #### L 501.5200, L500.2500 #### [facility] [address] [place], [address] Creatinine [Mass/Vol] 1.46 mg/dL High 0.70-1.20 [facility] Comment on above: Order Comment: 209 Performed By: #### L 501.5200, L500.2500 #### [facility] [address] [place], [address] GAP 12 Normal 5-15 [facility] Comment on above: Order Comment: 209 Performed By: #### L 501.5200, L500.2500 #### [facility] [address] [place], [address] GFR/1.73 sq M.predicted among non-blacks MDRD (S/P/Bld) [Vol rate/Area] 52 mL/min/{1.73_m2} Low >60 [facility] Comment on above: Order Comment: 209 Result Comment: mL/m in/1.73m2 CKD-EPI Creatinine Equation (2020) Performed By: #### L 501.5200, L500.2500 #### [facility] [address] [place], [address] Glucose [Mass/Vol] 98 mg/dL Normal 70-99 [facility] Comment on above: Order Comment: 209 Performed By: #### L 501.5200, L500.2500 #### [facility] [address] [place], [address] Potassium [Moles/Vol] 4.5 mmol/L Normal 3.3-5.1 [facility] Comment on above: Order Comment: 209 Performed By: #### L 501.5200, L500.2500 #### [facility] [address] [place], [address] Sodium [Moles/Vol] 141 mmol/L Normal 133-145 [facility] Comment on above: Order Comment: 209 Performed By: #### L 501.5200, L500.2500 #### [facility] [address] [place], [address] Urea nitrogen [Mass/Vol] 35 mg/dL High 4-19 [facility] Comment on above: Order Comment: 209 Performed By: #### L 501.5200, L500.2500 #### [facility] [address] [place], [address] Carbon dioxide, total [Moles /volume] in Central venous bloodOrdered By: Jigna Brantley on 09-26-2024 CO2 [Moles/Vol] 26.1 mmol/L 21.0-32.0 [facility] Chloride assayOrdered By: Fabricio Brantley on 09-26-2024 Chloride [Moles/Vol] 103 mmol/L 98-108 [facility] Glomerular filtration rate ( GFR) estimation/1.73 sq m using serum, plasma, or whole bOrdered By: Jigna Brantley on 09-26-2024 GFR/1.73 sq M.predicted among non-blacks MDRD (S/P/Bld) [Vol rate/Area] 52 mL/min/{1.73_m2} Low >60 [facility] Comment on above: mL/min/1.73m2 CKD-EP I Creatinine Equation (2020) Magnesiumon 09-26-2024 Magnesium [Mass/Vol] 2.4 mg/dL High 1.5-2.2 [facility] Comment on above: Order Comment: 209 Performed By: #### L 501.5200, L500.2500 #### [facility] [address] [place], [address] Magnesium measurement (mass/ volume)Ordered By: Jigna Brantley on 09-26-2024 Magnesium (Unsp spec) [Mass/Vol] 2.4 mg/dL High 1.5-2.2 [facility] Potassium measurement (mass/ volume)Ordered By: Jigna Brantley on 09-26-2024 Potassium (Unsp spec) [Mass/Vol] 4.5 mmol/L 3.3-5.1 [facility] Serum creatinine measurement (mass/volume)Ordered By: Jigna Brantley on 09-26-2024 Creatinine [Mass/Vol] 1.46 mg/dL High 0.70-1.20 [facility] Serum glucose measurement (m ass/volume)Ordered By: Jigna Brantley on 09-26-2024 Glucose [Mass/Vol] 98 mg/dL 70-99 [facility] Serum or plasma calcium rosalina urement (mass/volume)Ordered By: Jigna Brantley on 09-26-2024 Calcium [Mass/Vol] 9.8 mg/dL 7.6-11.0 [facility] Serum or plasma urea nitroge n measurement (mass/volume)Ordered By: Jigna Brantley on 09-26-2024 Urea nitrogen [Mass/Vol] 35 mg/dL High 4-19 [facility] Sodium levelOrdered By: Enoch Brantley on 09-26-2024 Sodium [Moles/Vol] 141 mmol/L 133-145 [facility] CRPon 08-27-2024 C-REACTIVE PROT 37.80 mg/L High 0.0-3.0 [facility] Comment on above: Order Comment: 1 Y Performed By: #### L 500.4050, L503.6005, L300.8000, L100.0100, L501.5425 #### [facility] [address] [place], [place], [address] CRP [Mass/Vol]Ordered By: Fabricio Brantley on 08-27-2024 C-Reactive Protein Extended Range 37.80 mg/L High 0.0-3.0 [facility] Serum or plasma C reactive p rotein measurement (mass/volume)Ordered By: Jigna Brantley on 08-27-2024 CRP [Mass/Vol] 37.80 mg/L High 0.0-3.0 [facility] Serum or plasma uric acid me asurement (mass/volume)Ordered By: Jigna Brantley on 08-27-2024 Urate [Mass/Vol] 7.6 mg/dL High 3.5-7.2 [facility] Comment on above: The drugs N-Acetylcy steine and Metamizole may falsely depress this assay. Uric Acidon 08-27-2024 URIC 7.6 mg/dL High 3.5-7.2 [facility] Comment on above: Order Comment: 1 Y Result Comment: The drugs N-Acetylcysteine and Metamizole may falsely depress this assay. Performed By: #### L 500.4050, L503.6005, L300.8000, L100.0100, L501.5425 #### [facility] [address] [place], [address] Absolute lymphocyte countOrd ered By: Jigna Brantley on 07-23-2024 Lymphocytes Auto (Unsp spec) [#/Vol] 3.24 10*3/uL 0.83-4.51 [facility] Absolute neutrophil countOrd ered By: Jignabailey Brantley on 07-23-2024 Neutrophils (Bld) [#/Vol] 5.5 10*3/uL 2.0-7.7 [facility] Automated lymphocyte count a s percentage of total leukocytesOrdered By: Jigna Brantley on 07-23-2024 Lymphocytes/100 WBC Auto (Unsp spec) 33.6 % 19-41 [facility] Basic Metabolic Profile (BMP )on 07-23-2024 BUN/CRE 16.1 RATIO Normal 10-20 [facility] Comment on above: Order Comment: Y Performed By: #### L 500.4050, L503.6005, L300.8000, L100.0100, L501.5425 #### [facility] [address] [place], [address] CA,Total 8.6 mg/dL Normal 8.5-10.1 [facility] Comment on above: Order Comment: Y Performed By: #### L 500.4050, L503.6005, L300.8000, L100.0100, L501.5425 #### [facility] [address] [place], [address] Chloride [Moles/Vol] 102 mmol/L Normal 98-107 [facility] Comment on above: Order Comment: Y Performed By: #### L 500.4050, L503.6005, L300.8000, L100.0100, L501.5425 #### [facility] [address] [place], [address] CO2 [Moles/Vol] 31.0 mmol/L Normal 21.0-32.0 [facility] Comment on above: Order Comment: Y Performed By: #### L 500.4050, L503.6005, L300.8000, L100.0100, L501.5425 #### [facility] [address] [place], [address] Creatinine [Mass/Vol] 1.37 mg/dL High 0.70-1.30 [facility] Comment on above: Order Comment: Y Result Comment: The validity of the calculated GFR GFRAA in patients over 70 years has not been determined. Clinical correlation is essential. Performed By: #### L 500.4050, L503.6005, L300.8000, L100.0100, L501.5425 #### [facility] [address] [place], [address] EST GFR - AA 67 mL/min Normal >60 [facility] Comment on above: Order Comment: Y Result Comment: Afri can Prydeinig GFR Calc Performed By: #### L 500.4050, L503.6005, L300.8000, L100.0100, L501.5425 #### [facility] [address] [place], [address] GAP 5 Normal 5-15 [facility] Comment on above: Order Comment: Y Performed By: #### L 500.4050, L503.6005, L300.8000, L100.0100, L501.5425 #### [facility] [address] [place], [address] GFR/1.73 sq M.predicted among non-blacks MDRD (S/P/Bld) [Vol rate/Area] 55 mL/min/{1.73_m2} Low >60 [facility] Comment on above: Order Comment: Y Result Comment: Non- GFR Calc Performed By: #### L 500.4050, L503.6005, L300.8000, L100.0100, L501.5425 #### [facility] [address] [place], [address] Glucose [Mass/Vol] 92 mg/dL Normal 74-106 [facility] Comment on above: Order Comment: Y Performed By: #### L 500.4050, L503.6005, L300.8000, L100.0100, L501.5425 #### [facility] [address] [place], [address] Potassium [Moles/Vol] 4.1 mmol/L Normal 3.5-5.1 [facility] Comment on above: Order Comment: Y Performed By: #### L 500.4050, L503.6005, L300.8000, L100.0100, L501.5425 #### [facility] [address] [place], [address] Sodium [Moles/Vol] 138 mmol/L Normal 136-145 [facility] Comment on above: Order Comment: Y Performed By: #### L 500.4050, L503.6005, L300.8000, L100.0100, L501.5425 #### [facility] [address] [place], [address] Urea nitrogen [Mass/Vol] 22 mg/dL High 7-18 [facility] Comment on above: Order Comment: Y Performed By: #### L 500.4050, L503.6005, L300.8000, L100.0100, L501.5425 #### [facility] [address] [place], [address] Basophil percentageOrdered B y: Jigna Brantley on 07-23-2024 Basophils/100 WBC (Bld) 0.5 % 0-1 [facility] Blood urea nitrogen (BUN)/cr eatinine ratioOrdered By: Jigna Brantley on 07-23-2024 Urea nitrogen/Creatinine [Mass ratio] 16.1 mg/mg 10- [facility] CBC W/Diff, Automatedon 07-01 Absolute Lymph 3.24 X10 3/uL Normal 0.83-4.51 [facility] Comment on above: Order Comment: Y Performed By: #### L 500.4050, L503.6005, L300.8000, L100.0100, L501.5425 #### [facility] [address] [place], [address] Absolute Neut 5.5 X10 3/uL Normal 2.0-7.7 [facility] Comment on above: Order Comment: Y Performed By: #### L 500.4050, L503.6005, L300.8000, L100.0100, L501.5425 #### [facility] [address] [place], [address] Basophils/100 WBC (Bld) 0.5 % Normal 0-1 [facility] Comment on above: Order Comment: Y Performed By: #### L 500.4050, L503.6005, L300.8000, L100.0100, L501.5425 #### [facility] [address] [place], [address] Eosinophils/100 WBC (Bld) 0.6 % Normal 0-5 [facility] Comment on above: Order Comment: Y Performed By: #### L 500.4050, L503.6005, L300.8000, L100.0100, L501.5425 #### [facility] [address] [place], [address] Erythrocyte distribution width (RBC) [Ratio] 14.1 % Normal 11.6-14.6 [facility] Comment on above: Order Comment: Y Performed By: #### L 500.4050, L503.6005, L300.8000, L100.0100, L501.5425 #### [facility] [address] [place], [address] Hematocrit (Bld) [Volume fraction] 43.3 % Normal 40-54 [facility] Comment on above: Order Comment: Y Performed By: #### L 500.4050, L503.6005, L300.8000, L100.0100, L501.5425 #### [facility] [address] [place], [address] Hemoglobin (Bld) [Mass/Vol] 13.9 g/dL Normal 13.0-16.5 [facility] Comment on above: Order Comment: Y Performed By: #### L 500.4050, L503.6005, L300.8000, L100.0100, L501.5425 #### [facility] [address] [place], [address] IG% 0.600 Normal 0.0-0.9 [facility] Comment on above: Order Comment: Y Result Comment: IG% - Immature Granulocytes (promyelocytes, myelocytes and metamyelocytes) > 1% indicates that a LEFT SHIFT is Present. Performed By: #### L 500.4050, L503.6005, L300.8000, L100.0100, L501.5425 #### [facility] [address] [place], [address] Lymphocytes/100 WBC (Bld) 33.6 % Normal 19-41 [facility] Comment on above: Order Comment: Y Performed By: #### L 500.4050, L503.6005, L300.8000, L100.0100, L501.5425 #### [facility] [address] [place], [address] MCH (RBC) [Entitic mass] 30.3 pg Normal 27.0-32.0 [facility] Comment on above: Order Comment: Y Performed By: #### L 500.4050, L503.6005, L300.8000, L100.0100, L501.5425 #### [facility] [address] [place], [address] MCHC (RBC) [Mass/Vol] 32.1 g/dL Normal 32-36 [facility] Comment on above: Order Comment: Y Performed By: #### L 500.4050, L503.6005, L300.8000, L100.0100, L501.5425 #### [facility] [address] [place], [address] MCV (RBC) [Entitic vol] 94.3 fL High 80-94 [facility] Comment on above: Order Comment: Y Performed By: #### L 500.4050, L503.6005, L300.8000, L100.0100, L501.5425 #### [facility] [address] [place], [address] Monocytes/100 WBC (Bld) 7.2 % Normal 0-10 [facility] Comment on above: Order Comment: Y Performed By: #### L 500.4050, L503.6005, L300.8000, L100.0100, L501.5425 #### [facility] [address] [place], [address] Neutrophils/100 WBC (Bld) 57.5 % Normal 47-70 [facility] Comment on above: Order Comment: Y Performed By: #### L 500.4050, L503.6005, L300.8000, L100.0100, L501.5425 #### [facility] [address] [place], [address] Nucleated RBC (Bld) [#/Vol] 0 10*3/uL Normal 0-5 [facility] Comment on above: Order Comment: Y Performed By: #### L 500.4050, L503.6005, L300.8000, L100.0100, L501.5425 #### [facility] [address] [place], [address] Platelet mean volume (Bld) [Entitic vol] 11.2 fL Normal 6.2-12.0 [facility] Comment on above: Order Comment: Y Performed By: #### L 500.4050, L503.6005, L300.8000, L100.0100, L501.5425 #### [facility] [address] [place], [address] Platelets (Bld) [#/Vol] 320 10*3/uL Normal 150-450 [facility] Comment on above: Order Comment: Y Performed By: #### L 500.4050, L503.6005, L300.8000, L100.0100, L501.5425 #### [facility] [address] [place], [address] RBC (Bld) [#/Vol] 4.59 10*6/uL Low 4.6-6.2 [facility] Comment on above: Order Comment: Y Performed By: #### L 500.4050, L503.6005, L300.8000, L100.0100, L501.5425 #### [facility] [address] [place], [address] RDW SD 48.2 fl High 35.1-43.9 [facility] Comment on above: Order Comment: Y Performed By: #### L 500.4050, L503.6005, L300.8000, L100.0100, L501.5425 #### [facility] [address] [place], [address] WBC (Bld) [#/Vol] 9.6 10*3/uL Normal 4.4-11.0 [facility] Comment on above: Order Comment: Y Performed By: #### L 500.4050, L503.6005, L300.8000, L100.0100, L501.5425 #### [facility] [place], [address] Carbon dioxide measurementOr dered By: Jigna Brantley on 07-23-2024 CO2 [Moles/Vol] 31.0 mmol/L 21.0-32.0 [facility] Chloride measurementOrdered By: Jigna Brantley on 07-23-2024 Chloride [Moles/Vol] 102 mmol/L 98-107 [facility] Eosinophil percentageOrdered By: Jigna Brantley on 07-23-2024 Eosinophils/100 WBC (Bld) 0.6 % 0-5 [facility] Erythrocyte distribution wid th (RBC) [Ratio]Ordered By: Jigna Brantley on 07-23-2024 Erythrocyte distribution width (RBC) [Entitic vol] 48.2 fL High 35.1-43.9 [facility] Erythrocyte distribution wid th ratioOrdered By: Jigna Brantley on 07-23-2024 Erythrocyte distribution width (RBC) [Ratio] 14.1 % 11.6-14.6 [facility] Erythrocyte distribution wid th standard deviationOrdered By: Jigna Brantley on 07-23-2024 Erythrocyte distribution width (RBC) [Ratio] 48.2 fl High 35.1-43.9 [facility] Estimated glomerular filtrat ion rate (GFR) AmericanOrdered By: Jigna Brantley on 07-23-2024 Estimated GFR (MDRD) Amer 67 mL/min >60 [facility] Comment on above: GFR Calc Glomerular filtration rate ( GFR) estimationOrdered By: Jigna Brantley on 07-23-2024 Estimated GFR (MDRD) Non-Af Amer 55 mL/min Low >60 [facility] Comment on above: Non- GFR Calc GFR/1.73 sq M.predicted among non-blacks MDRD (S/P/Bld) [Vol rate/Area] 55 mL/min/{1.73_m2} Low >60 [facility] Comment on above: Non- GFR Calc Glucose measurementOrdered B y: Jigna Brantley on 07-23-2024 Glucose [Mass/Vol] 92 mg/dL 74-106 [facility] Hematocrit Auto (Bld) [Volum e fraction]Ordered By: Jigna Brantley on 07-23-2024 Hematocrit (Bld) [Volume fraction] 43.3 % 40-54 [facility] Hemoglobin measurementOrdere d By: Jigna Brantley on 07-23-2024 Hemoglobin (Bld) [Mass/Vol] 13.9 g/dL 13.0-16.5 [facility] [facility] Immature granulocytes/100 WB C Auto (Bld)Ordered By: Jignabailey Brantley on 07-23-2024 Immature granulocytes/100 WBC (Bld) 0.600 % 0.0-0.9 [facility] Comment on above: IG% - Immature Granu locytes (promyelocytes, myelocytes and metamyelocytes) > 1% indicates that a LEFT SHIFT is Present. Lymphocytes Auto (Unsp spec) [#/Vol]Ordered By: Jigna Brantley on 07-23-2024 Lymphocytes (Bld) [#/Vol] 3.24 10*3/uL 0.83-4.51 [facility] Lymphocytes/100 WBC Auto (Un sp spec)Ordered By: Jigna Brantley on 07-23-2024 Lymphocytes/100 WBC (Bld) 33.6 % 19-41 [facility] MCV (mean corpuscular volume ) determinationOrdered By: Jigna Brantley on 07-23-2024 MCV (RBC) [Entitic vol] 94.3 fL High 80-94 [facility] Magnesiumon 07-23-2024 Magnesium [Mass/Vol] 2.5 mg/dL Normal 1.6-2.6 [facility] Comment on above: Order Comment: 206.1 Performed By: #### L 500.4050, L503.6005, L300.8000, L100.0100, L501.5425 #### [facility] [address] [place], [address] Magnesium measurementOrdered By: Jigna Brantley on 07-23-2024 Magnesium [Mass/Vol] 2.5 mg/dL 1.6-2.6 [facility] Mean corpuscular hemoglobin (MCH) determinationOrdered By: Jigna Brantley on 07-23-2024 MCH (RBC) [Entitic mass] 30.3 pg 27.0-32.0 [facility] Mean corpuscular hemoglobin concentration (MCHC) determinationOrdered By: Jigna Brantley on 07-23-2024 MCHC (RBC) [Mass/Vol] 32.1 g/dL 32-36 [facility] Mean platelet volume determi nationOrdered By: Jigna Brantley on 07-23-2024 Platelet mean volume (Bld) [Entitic vol] 11.2 fL 6.2-12.0 [facility] Monocyte percentageOrdered B y: Jigna Brantley on 07-23-2024 Monocytes/100 WBC (Bld) 7.2 % 0-10 [facility] Neutrophil percentageOrdered By: Jigna Brantley on 07-23-2024 Neutrophils/100 WBC (Bld) 57.5 % 47-70 [facility] Nucleated red blood cell per centageOrdered By: Jigna Brantley on 07-23-2024 Nucleated RBC/100 WBC (Bld) [Ratio] 0 % 0-5 [facility] Platelet countOrdered By: Fabricio Brantley on 07-23-2024 Platelets (Bld) [#/Vol] 320 10*3/uL 150-450 [facility] Potassium measurementOrdered By: Jigna Brantley on 07-23-2024 Potassium [Moles/Vol] 4.1 mmol/L 3.5-5.1 [facility] RBC Auto (Bld) [#/Vol]Ordere d By: Jigna Brantley on 07-23-2024 RBC (Bld) [#/Vol] 4.59 10*6/uL Low 4.6-6.2 [facility] Serum anion gap measurementO rdered By: Jigna Brantley on 07-23-2024 Anion gap [Moles/Vol] 5 mmol/L 5-15 [facility] Serum or plasma calcium rosalina urement (mass/volume)Ordered By: Jigna Brantley on 07-23-2024 Calcium [Mass/Vol] 8.6 mg/dL 8.5-10.1 [facility] Serum or plasma creatinine m easurement (mass/volume)Ordered By: Jigna Brantley on 07-23-2024 Creatinine [Mass/Vol] 1.37 mg/dL High 0.70-1.30 [facility] Comment on above: The validity of the calculated GFR & GFRAA in patients over 70 years has not been determined. Clinical correlation is essential. Serum or plasma urea nitroge n measurement (mass/volume)Ordered By: Jigna Brantley on 07-23-2024 Urea nitrogen [Mass/Vol] 22 mg/dL High 7-18 [facility] Sodium levelOrdered By: Enoch Brantley on 07-23-2024 Sodium [Moles/Vol] 138 mmol/L 136-145 [facility] White blood cell (WBC) count Ordered By: Jignabaliey Brantley on 07-23-2024 WBC (Bld) [#/Vol] 9.6 10*3/uL 4.4-11.0 [facility] Absolute lymphocyte countOrd ered By: Jigna Brantley on 07-16-2024 Lymphocytes Auto (Unsp spec) [#/Vol] 1.83 10*3/uL 0.83-4.51 [facility] Absolute neutrophil countOrd ered By: Jignabailey Brantley on 07-16-2024 Neutrophils (Bld) [#/Vol] 7.9 10*3/uL High 2.0-7.7 [facility] Automated lymphocyte count a s percentage of total leukocytesOrdered By: Jigna Brantley on 07-16-2024 Lymphocytes/100 WBC Auto (Unsp spec) 17.2 % Low 19-41 [facility] Basic Metabolic Profile (BMP )on 07-16-2024 BUN/CRE 18.8 RATIO Normal 10-20 [facility] Comment on above: Order Comment: 206 Performed By: #### L 500.4050, L503.6005, L300.8000, L100.0100, L501.5425 #### [facility] [place], [address] CA,Total 9.3 mg/dL Normal 8.5-10.1 [facility] Comment on above: Order Comment: 206 Performed By: #### L 500.4050, L503.6005, L300.8000, L100.0100, L501.5425 #### [facility] [address] [place], [address] Chloride [Moles/Vol] 103 mmol/L Normal 98-107 [facility] Comment on above: Order Comment: 206 Performed By: #### L 500.4050, L503.6005, L300.8000, L100.0100, L501.5425 #### [facility] [address] [place], [address] CO2 [Moles/Vol] 27.0 mmol/L Normal 21.0-32.0 [facility] Comment on above: Order Comment: 206 Performed By: #### L 500.4050, L503.6005, L300.8000, L100.0100, L501.5425 #### [facility] [address] [place], [address] Creatinine [Mass/Vol] 1.17 mg/dL Normal 0.70-1.30 [facility] Comment on above: Order Comment: 206 Result Comment: The validity of the calculated GFR GFRAA in patients over 70 years has not been determined. Clinical correlation is essential. Performed By: #### L 500.4050, L503.6005, L300.8000, L100.0100, L501.5425 #### [facility] [address] [place], [address] EST GFR - AA 80 mL/min Normal >60 [facility] Comment on above: Order Comment: 206 Result Comment: Afri can Prydeinig GFR Calc Performed By: #### L 500.4050, L503.6005, L300.8000, L100.0100, L501.5425 #### [facility] [address] [place], [address] GAP 9 Normal 5-15 [facility] Comment on above: Order Comment: 206 Performed By: #### L 500.4050, L503.6005, L300.8000, L100.0100, L501.5425 #### [facility] [address] [place], [address] GFR/1.73 sq M.predicted among non-blacks MDRD (S/P/Bld) [Vol rate/Area] 66 mL/min/{1.73_m2} Normal >60 [facility] Comment on above: Order Comment: 206 Result Comment: Non- GFR Calc Performed By: #### L 500.4050, L503.6005, L300.8000, L100.0100, L501.5425 #### [facility] [address] [place], [address] Glucose [Mass/Vol] 94 mg/dL Normal 74-106 [facility] Comment on above: Order Comment: 206 Performed By: #### L 500.4050, L503.6005, L300.8000, L100.0100, L501.5425 #### [facility] [address] [place], [address] Potassium [Moles/Vol] 3.6 mmol/L Normal 3.5-5.1 [facility] Comment on above: Order Comment: 206 Performed By: #### L 500.4050, L503.6005, L300.8000, L100.0100, L501.5425 #### [facility] [address] [place], [address] Sodium [Moles/Vol] 139 mmol/L Normal 136-145 [facility] Comment on above: Order Comment: 206 Performed By: #### L 500.4050, L503.6005, L300.8000, L100.0100, L501.5425 #### [facility] [address] [place], [address] Urea nitrogen [Mass/Vol] 22 mg/dL High - [facility] Comment on above: Order Comment: 206 Performed By: #### L 500.4050, L503.6005, L300.8000, L100.0100, L501.5425 #### [facility] [address] [place], [address] Basophil percentageOrdered B y: Jigna Brantley on 07-16-2024 Basophils/100 WBC (Bld) 0.1 % 0-1 [facility] Blood urea nitrogen (BUN)/cr eatinine ratioOrdered By: Jigna Brantley on 07-16-2024 Urea nitrogen/Creatinine [Mass ratio] 18.8 mg/mg 10- [facility] CBC W/Diff, Automatedon 06-30 Absolute Lymph 1.83 X10 3/uL Normal 0.83-4.51 [facility] Comment on above: Order Comment: 206 Performed By: #### L 500.4050, L503.6005, L300.8000, L100.0100, L501.5425 #### [facility] [address] [place], [address] Absolute Neut 7.9 X10 3/uL High 2.0-7.7 [facility] Comment on above: Order Comment: 206 Performed By: #### L 500.4050, L503.6005, L300.8000, L100.0100, L501.5425 #### [facility] [address] [place], [address] Basophils/100 WBC (Bld) 0.1 % Normal 0-1 [facility] Comment on above: Order Comment: 206 Performed By: #### L 500.4050, L503.6005, L300.8000, L100.0100, L501.5425 #### [facility] [address] [place], [address] Eosinophils/100 WBC (Bld) 0.1 % Normal 0-5 [facility] Comment on above: Order Comment: 206 Performed By: #### L 500.4050, L503.6005, L300.8000, L100.0100, L501.5425 #### [facility] [address] [place], [address] Erythrocyte distribution width (RBC) [Ratio] 13.2 % Normal 11.6-14.6 [facility] Comment on above: Order Comment: 206 Performed By: #### L 500.4050, L503.6005, L300.8000, L100.0100, L501.5425 #### [facility] [address] [place], [address] Hematocrit (Bld) [Volume fraction] 41.3 % Normal 40-54 [facility] Comment on above: Order Comment: 206 Performed By: #### L 500.4050, L503.6005, L300.8000, L100.0100, L501.5425 #### [facility] [address] [place], [address] Hemoglobin (Bld) [Mass/Vol] 13.3 g/dL Normal 13.0-16.5 [facility] Comment on above: Order Comment: 206 Performed By: #### L 500.4050, L503.6005, L300.8000, L100.0100, L501.5425 #### [facility] [address] [place], [address] IG% 0.700 Normal 0.0-0.9 [facility] Comment on above: Order Comment: 206 Result Comment: IG% - Immature Granulocytes (promyelocytes, myelocytes and metamyelocytes) > 1% indicates that a LEFT SHIFT is Present. Performed By: #### L 500.4050, L503.6005, L300.8000, L100.0100, L501.5425 #### [facility] [address] [place], [address] Lymphocytes/100 WBC (Bld) 17.2 % Low 19-41 [facility] Comment on above: Order Comment: 206 Performed By: #### L 500.4050, L503.6005, L300.8000, L100.0100, L501.5425 #### [facility] [address] [place], [address] MCH (RBC) [Entitic mass] 29.7 pg Normal 27.0-32.0 [facility] Comment on above: Order Comment: 206 Performed By: #### L 500.4050, L503.6005, L300.8000, L100.0100, L501.5425 #### [facility] [address] [place], [address] MCHC (RBC) [Mass/Vol] 32.2 g/dL Normal 32-36 [facility] Comment on above: Order Comment: 206 Performed By: #### L 500.4050, L503.6005, L300.8000, L100.0100, L501.5425 #### [facility] [address] [place], [address] MCV (RBC) [Entitic vol] 92.2 fL Normal 80-94 [facility] Comment on above: Order Comment: 206 Performed By: #### L 500.4050, L503.6005, L300.8000, L100.0100, L501.5425 #### [facility] [address] [place], [address] Monocytes/100 WBC (Bld) 7.6 % Normal 0-10 [facility] Comment on above: Order Comment: 206 Performed By: #### L 500.4050, L503.6005, L300.8000, L100.0100, L501.5425 #### [facility] [address] [place], [address] Neutrophils/100 WBC (Bld) 74.3 % High 47-70 [facility] Comment on above: Order Comment: 206 Performed By: #### L 500.4050, L503.6005, L300.8000, L100.0100, L501.5425 #### [facility] [address] [place], [address] Nucleated RBC (Bld) [#/Vol] 0 10*3/uL Normal 0-5 [facility] Comment on above: Order Comment: 206 Performed By: #### L 500.4050, L503.6005, L300.8000, L100.0100, L501.5425 #### [facility] [address] [place], [address] Platelet mean volume (Bld) [Entitic vol] 10.4 fL Normal 6.2-12.0 [facility] Comment on above: Order Comment: 206 Performed By: #### L 500.4050, L503.6005, L300.8000, L100.0100, L501.5425 #### [facility] [address] [place], [address] Platelets (Bld) [#/Vol] 462 10*3/uL High 150-450 [facility] Comment on above: Order Comment: 206 Performed By: #### L 500.4050, L503.6005, L300.8000, L100.0100, L501.5425 #### [facility] [address] [place], [address] RBC (Bld) [#/Vol] 4.48 10*6/uL Low 4.6-6.2 [facility] Comment on above: Order Comment: 206 Performed By: #### L 500.4050, L503.6005, L300.8000, L100.0100, L501.5425 #### [facility] [address] [place], [address] RDW SD 44.1 fl High 35.1-43.9 [facility] Comment on above: Order Comment: 206 Performed By: #### L 500.4050, L503.6005, L300.8000, L100.0100, L501.5425 #### [facility] [address] [place], [place], [address] WBC (Bld) [#/Vol] 10.6 10*3/uL Normal 4.4-11.0 [facility] Comment on above: Order Comment: 206 Performed By: #### L 500.4050, L503.6005, L300.8000, L100.0100, L501.5425 #### [facility] [address] [place], [address] [facility] RE[facility] SULLIVAN ([id number]) 1955 M Date Time Provider Department 07/16/24 ARIC ZAPIEN [facility] During your visit today, we recorded the following information about you: Felicita Bolden MA 07/16/2024 3:30 PM Signed Patient canceled his appointment on 07/12/24 with Isa Stevenson. He was discharged from [facility] on 07/11/24 DX: AFIB RVR, debility. Called and spoke with ex- Flor, his emergency contact, and she said he is in [facility] for rehab with the hopes for permanent placement afterwards. Felicita Bolden MA July 16, 2024 3:30 PM Allergies As of Date: 07/16/2024 Noted Allergy Reaction DYE 03/02/2016 14 - Other: See Comments Comments: used for heart cath Date Reviewed: 06/22/2024 Reviewed by: Harn, Felicita, MA - Fully Assessed Reason for Visit: [...] unspecified na*09/30/2022 Left atrial enlargement [I51.7] 09/30/2022 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 *09/30/2022 Migraine [...] Status:Closed by FELICITA BOLDEN on 08/07/24 Normal [facility] Carbon dioxide measurementOr dered By: Jigna Brantley on 07-16-2024 CO2 [Moles/Vol] 27.0 mmol/L 21.0-32.0 [facility] Chloride measurementOrdered By: Jigna Brantley on 07-16-2024 Chloride [Moles/Vol] 103 mmol/L 98-107 [facility] Eosinophil percentageOrdered By: Jigna Brantley on 07-16-2024 Eosinophils/100 WBC (Bld) 0.1 % 0-5 [facility] Erythrocyte distribution wid th (RBC) [Ratio]Ordered By: Jigna Brantley on 07-16-2024 Erythrocyte distribution width (RBC) [Entitic vol] 44.1 fL High 35.1-43.9 [facility] Erythrocyte distribution wid th ratioOrdered By: Jigna Brantley on 07-16-2024 Erythrocyte distribution width (RBC) [Ratio] 13.2 % 11.6-14.6 [facility] Erythrocyte distribution wid th standard deviationOrdered By: Jigna Brantley on 07-16-2024 Erythrocyte distribution width (RBC) [Ratio] 44.1 fl High 35.1-43.9 [facility] Estimated glomerular filtrat ion rate (GFR) AmericanOrdered By: Jigna Brantley on 07-16-2024 Estimated GFR (MDRD) Amer 80 mL/min >60 [facility] Comment on above: GFR Calc Glomerular filtration rate ( GFR) estimationOrdered By: Jigna Brantley on 07-16-2024 Estimated GFR (MDRD) Non-Af Amer 66 mL/min >60 [facility] Comment on above: Non- GFR Calc GFR/1.73 sq M.predicted among non-blacks MDRD (S/P/Bld) [Vol rate/Area] 66 mL/min/{1.73_m2} >60 [facility] Comment on above: Non- GFR Calc Glucose measurementOrdered B y: Jigna Brantley on 07-16-2024 Glucose [Mass/Vol] 94 mg/dL 74-106 [facility] Hematocrit Auto (Bld) [Volum e fraction]Ordered By: Jigna Brantley on 07-16-2024 Hematocrit (Bld) [Volume fraction] 41.3 % 40-54 [facility] Hemoglobin measurementOrdere d By: Jigna Brantley on 07-16-2024 Hemoglobin (Bld) [Mass/Vol] 13.3 g/dL 13.0-16.5 [facility] Immature granulocytes/100 WB C Auto (Bld)Ordered By: Jigna Brantley on 07-16-2024 Immature granulocytes/100 WBC (Bld) 0.700 % 0.0-0.9 [facility] Comment on above: IG% - Immature Granu locytes (promyelocytes, myelocytes and metamyelocytes) > 1% indicates that a LEFT SHIFT is Present. Lymphocytes Auto (Unsp spec) [#/Vol]Ordered By: Jigna Brantley on 07-16-2024 Lymphocytes (Bld) [#/Vol] 1.83 10*3/uL 0.83-4.51 [facility] Lymphocytes/100 WBC Auto (Un sp spec)Ordered By: Jigna Brantley on 07-16-2024 Lymphocytes/100 WBC (Bld) 17.2 % Low 19-41 [facility] MCV (mean corpuscular volume ) determinationOrdered By: Jigna Brantley on 07-16-2024 MCV (RBC) [Entitic vol] 92.2 fL 80-94 [facility] Magnesiumon 07-16-2024 Magnesium [Mass/Vol] 2.7 mg/dL High 1.6-2.6 [facility] Comment on above: Order Comment: 206 Performed By: #### L 500.4050, L503.6005, L300.8000, L100.0100, L501.5425 #### [facility] [address] [facility] [place], [address] Magnesium measurementOrdered By: Jigna Brantley on 07-16-2024 Magnesium [Mass/Vol] 2.7 mg/dL High 1.6-2.6 [facility] Mean corpuscular hemoglobin (MCH) determinationOrdered By: Jigna Brantley on 07-16-2024 MCH (RBC) [Entitic mass] 29.7 pg 27.0-32.0 [facility] Mean corpuscular hemoglobin concentration (MCHC) determinationOrdered By: Jigna Brantley on 07-16-2024 MCHC (RBC) [Mass/Vol] 32.2 g/dL 32-36 [facility] Mean platelet volume determi nationOrdered By: Jigna Brantley on 07-16-2024 Platelet mean volume (Bld) [Entitic vol] 10.4 fL 6.2-12.0 [facility] Monocyte percentageOrdered B y: Jigna Brantley on 07-16-2024 Monocytes/100 WBC (Bld) 7.6 % 0-10 [facility] Neutrophil percentageOrdered By: Jigna Brantley on 07-16-2024 Neutrophils/100 WBC (Bld) 74.3 % High 47-70 [facility] Nucleated red blood cell per centageOrdered By: Jigna Brantley on 07-16-2024 Nucleated RBC/100 WBC (Bld) [Ratio] 0 % 0-5 [facility] Platelet countOrdered By: Fabricio Brantley on 07-16-2024 Platelets (Bld) [#/Vol] 462 10*3/uL High 150-450 [facility] Potassium measurementOrdered By: Jigna Brantley on 07-16-2024 Potassium [Moles/Vol] 3.6 mmol/L 3.5-5.1 [facility] RBC Auto (Bld) [#/Vol]Ordere d By: Jigna Brantley on 07-16-2024 RBC (Bld) [#/Vol] 4.48 10*6/uL Low 4.6-6.2 [facility] Serum anion gap measurementO rdered By: Jigna Brantley on 07-16-2024 Anion gap [Moles/Vol] 9 mmol/L 5-15 [facility] Serum or plasma calcium rosalina urement (mass/volume)Ordered By: Jigna Brantley on 07-16-2024 Calcium [Mass/Vol] 9.3 mg/dL 8.5-10.1 [facility] Serum or plasma creatinine m easurement (mass/volume)Ordered By: Jigna Brantley on 07-16-2024 Creatinine [Mass/Vol] 1.17 mg/dL 0.70-1.30 [facility] Comment on above: The validity of the calculated GFR & GFRAA in patients over 70 years has not been determined. Clinical correlation is essential. Serum or plasma urea nitroge n measurement (mass/volume)Ordered By: Jigna Brantley on 07-16-2024 Urea nitrogen [Mass/Vol] 22 mg/dL High 7-18 [facility] Sodium levelOrdered By: Enoch Brantley on 07-16-2024 Sodium [Moles/Vol] 139 mmol/L 136-145 [facility] Valproate levelOrdered By: Keo Brantley on 07-16-2024 Valproic Acid (Depakene) Level 71 ug/mL 50-100 [facility] Valproic Acid (Depakene) Lev cecil 07-16-2024 VALPROIC ACID 71 ug/mL Normal 50-100 [facility] Comment on above: Order Comment: 206 Performed By: #### L 500.4050, L503.6005, L300.8000, L100.0100, L501.5425 #### [facility] [address] [place], [address] White blood cell (WBC) count Ordered By: Jigna Brantley on 07-16-2024 WBC (Bld) [#/Vol] 10.6 10*3/uL 4.4-11.0 [facility] 97-ML-Gqhdzqh DOrdered By: Keo Brantley on 07-12-2024 Vitamin D 25-Hydroxy 6.3 ng/mL [facility] Comment on above: Vitamin D 25(OH) Sta tus Range Deficiency <20 ng/mL (50nmol/L) Insufficiency 20 - 30 ng/mL (50 - 75 nmol/L) Sufficiency 30 - 100 ng/mL (75 - 250 nmol/L) Toxicity >100 ng/mL (>250 nmol/L) Absolute lymphocyte countOrd ered By: Jigna Brantley on 07-12-2024 Lymphocytes Auto (Unsp spec) [#/Vol] 1.79 10*3/uL 0.83-4.51 [facility] Absolute neutrophil countOrd ered By: Jigna Brantley on 07-12-2024 Neutrophils (Bld) [#/Vol] 7.6 10*3/uL 2.0-7.7 [facility] Automated lymphocyte count a s percentage of total leukocytesOrdered By: Jigna Brantley on 07-12-2024 Lymphocytes/100 WBC Auto (Unsp spec) 17.4 % Low 19-41 [facility] Basic Metabolic Profile (BMP )on 07-12-2024 BUN/CRE 21.0 RATIO High 10-20 [facility] Comment on above: Order Comment: 1 Y Performed By: #### L 500.4050, L503.6005, L300.8000, L100.0100, L501.5425 #### [facility] [address] [place], [address] CA,Total 9.6 mg/dL Normal 8.5-10.1 [facility] Comment on above: Order Comment: 1 Y Performed By: #### L 500.4050, L503.6005, L300.8000, L100.0100, L501.5425 #### [facility] [address] [place], [address] Chloride [Moles/Vol] 104 mmol/L Normal 98-107 [facility] Comment on above: Order Comment: 1 Y Performed By: #### L 500.4050, L503.6005, L300.8000, L100.0100, L501.5425 #### [facility] [address] [place], [address] CO2 [Moles/Vol] 32.0 mmol/L Normal 21.0-32.0 [facility] Comment on above: Order Comment: 1 Y Performed By: #### L 500.4050, L503.6005, L300.8000, L100.0100, L501.5425 #### [facility] [address] [place], [address] Creatinine [Mass/Vol] 1.19 mg/dL Normal 0.70-1.30 [facility] Comment on above: Order Comment: 1 Y Result Comment: The validity of the calculated GFR GFRAA in patients over 70 years has not been determined. Clinical correlation is essential. Performed By: #### L 500.4050, L503.6005, L300.8000, L100.0100, L501.5425 #### [facility] [address] [place], [address] EST GFR - AA 78 mL/min Normal >60 [facility] Comment on above: Order Comment: 1 Y Result Comment: Afri can Prydeinig GFR Calc Performed By: #### L 500.4050, L503.6005, L300.8000, L100.0100, L501.5425 #### [facility] [address] [place], [address] GAP 5 Normal 5-15 [facility] Comment on above: Order Comment: 1 Y Performed By: #### L 500.4050, L503.6005, L300.8000, L100.0100, L501.5425 #### [facility] [address] [place], [address] GFR/1.73 sq M.predicted among non-blacks MDRD (S/P/Bld) [Vol rate/Area] 65 mL/min/{1.73_m2} Normal >60 [facility] Comment on above: Order Comment: 1 Y Result Comment: Non- GFR Calc Performed By: #### L 500.4050, L503.6005, L300.8000, L100.0100, L501.5425 #### [facility] [address] [place], [address] Glucose [Mass/Vol] 104 mg/dL Normal 74-106 [facility] Comment on above: Order Comment: 1 Y Result Comment: Fast ing Glucose result from 100 to 125 mg/dL suggests IMPAIRED HOMEOSTASIS per A.D.A. criteria. Performed By: #### L 500.4050, L503.6005, L300.8000, L100.0100, L501.5425 #### [facility] [address] [place], [address] Potassium [Moles/Vol] 3.8 mmol/L Normal 3.5-5.1 [facility] Comment on above: Order Comment: 1 Y Performed By: #### L 500.4050, L503.6005, L300.8000, L100.0100, L501.5425 #### [facility] [address] [place], [address] Sodium [Moles/Vol] 141 mmol/L Normal 136-145 [facility] Comment on above: Order Comment: 1 Y Performed By: #### L 500.4050, L503.6005, L300.8000, L100.0100, L501.5425 #### [facility] [address] [place], [address] Urea nitrogen [Mass/Vol] 25 mg/dL High 7-18 [facility] Comment on above: Order Comment: 1 Y Performed By: #### L 500.4050, L503.6005, L300.8000, L100.0100, L501.5425 #### [facility] [address] [place], [address] Basophil percentageOrdered B y: Jigna Brantley on 07-12-2024 Basophils/100 WBC (Bld) 0.2 % 0-1 [facility] Blood urea nitrogen (BUN)/cr eatinine ratioOrdered By: Jigna Brantley on 07-12-2024 Urea nitrogen/Creatinine [Mass ratio] 21.0 mg/mg High 10-20 [facility] CBC W/Diff, Automatedon 06-30 Absolute Lymph 1.79 X10 3/uL Normal 0.83-4.51 [facility] Comment on above: Order Comment: 1 Y Performed By: #### L 500.4050, L503.6005, L300.8000, L100.0100, L501.5425 #### [facility] [address] [place], [address] Absolute Neut 7.6 X10 3/uL Normal 2.0-7.7 [facility] Comment on above: Order Comment: 1 Y Performed By: #### L 500.4050, L503.6005, L300.8000, L100.0100, L501.5425 #### [facility] [address] [place], [address] Basophils/100 WBC (Bld) 0.2 % Normal 0-1 [facility] Comment on above: Order Comment: 1 Y Performed By: #### L 500.4050, L503.6005, L300.8000, L100.0100, L501.5425 #### [facility] [address] [place], [address] Eosinophils/100 WBC (Bld) 0.0 % Normal 0-5 [facility] Comment on above: Order Comment: 1 Y Performed By: #### L 500.4050, L503.6005, L300.8000, L100.0100, L501.5425 #### [facility] [address] [place], [address] Erythrocyte distribution width (RBC) [Ratio] 12.8 % Normal 11.6-14.6 [facility] Comment on above: Order Comment: 1 Y Performed By: #### L 500.4050, L503.6005, L300.8000, L100.0100, L501.5425 #### [facility] [address] [place], [address] Hematocrit (Bld) [Volume fraction] 41.3 % Normal 40-54 [facility] Comment on above: Order Comment: 1 Y Performed By: #### L 500.4050, L503.6005, L300.8000, L100.0100, L501.5425 #### [facility] [address] [place], [address] Hemoglobin (Bld) [Mass/Vol] 13.2 g/dL Normal 13.0-16.5 [facility] Comment on above: Order Comment: 1 Y Performed By: #### L 500.4050, L503.6005, L300.8000, L100.0100, L501.5425 #### [facility] [address] [place], [address] IG% 0.600 Normal 0.0-0.9 [facility] Comment on above: Order Comment: 1 Y Result Comment: IG% - Immature Granulocytes (promyelocytes, myelocytes and metamyelocytes) > 1% indicates that a LEFT SHIFT is Present. Performed By: #### L 500.4050, L503.6005, L300.8000, L100.0100, L501.5425 #### [facility] [address] [place], [address] Lymphocytes/100 WBC (Bld) 17.4 % Low 19-41 [facility] Comment on above: Order Comment: 1 Y Performed By: #### L 500.4050, L503.6005, L300.8000, L100.0100, L501.5425 #### [facility] [address] [place], [address] MCH (RBC) [Entitic mass] 29.9 pg Normal 27.0-32.0 [facility] Comment on above: Order Comment: 1 Y Performed By: #### L 500.4050, L503.6005, L300.8000, L100.0100, L501.5425 #### [facility] [address] [place], [address] MCHC (RBC) [Mass/Vol] 32.0 g/dL Normal 32-36 [facility] Comment on above: Order Comment: 1 Y Performed By: #### L 500.4050, L503.6005, L300.8000, L100.0100, L501.5425 #### [facility] [address] [place], [address] MCV (RBC) [Entitic vol] 93.4 fL Normal 80-94 [facility] Comment on above: Order Comment: 1 Y Performed By: #### L 500.4050, L503.6005, L300.8000, L100.0100, L501.5425 #### [facility] [address] [place], [address] Monocytes/100 WBC (Bld) 8.1 % Normal 0-10 [facility] Comment on above: Order Comment: 1 Y Performed By: #### L 500.4050, L503.6005, L300.8000, L100.0100, L501.5425 #### [facility] [address] [place], [address] Neutrophils/100 WBC (Bld) 73.7 % High 47-70 [facility] Comment on above: Order Comment: 1 Y Performed By: #### L 500.4050, L503.6005, L300.8000, L100.0100, L501.5425 #### [facility] [address] [place], [address] Nucleated RBC (Bld) [#/Vol] 0 10*3/uL Normal 0-5 [facility] Comment on above: Order Comment: 1 Y Performed By: #### L 500.4050, L503.6005, L300.8000, L100.0100, L501.5425 #### [facility] [address] [place], [address] Platelet mean volume (Bld) [Entitic vol] 10.7 fL Normal 6.2-12.0 [facility] Comment on above: Order Comment: 1 Y Performed By: #### L 500.4050, L503.6005, L300.8000, L100.0100, L501.5425 #### [facility] [address] [place], [address] Platelets (Bld) [#/Vol] 502 10*3/uL High 150-450 [facility] Comment on above: Order Comment: 1 Y Performed By: #### L 500.4050, L503.6005, L300.8000, L100.0100, L501.5425 #### [facility] [address] [place], [address] RBC (Bld) [#/Vol] 4.42 10*6/uL Low 4.6-6.2 [facility] Comment on above: Order Comment: 1 Y Performed By: #### L 500.4050, L503.6005, L300.8000, L100.0100, L501.5425 #### [facility] [address] [place], [place], [id number] (544) RDW SD 44.1 fl High 35.1-43.9 [facility] Comment on above: Order Comment: 1 Y Performed By: #### L 500.4050, L503.6005, L300.8000, L100.0100, L501.5425 #### [facility] [address] [place], [address] WBC (Bld) [#/Vol] 10.3 10*3/uL Normal 4.4-11.0 [facility] Comment on above: Order Comment: 1 Y Performed By: #### L 500.4050, L503.6005, L300.8000, L100.0100, L501.5425 #### [facility] [address] [place], [place], [id number] Carbon dioxide measurementOr dered By: Jigna Brantley on 07-12-2024 CO2 [Moles/Vol] 32.0 mmol/L 21.0-32.0 [facility] Chloride measurementOrdered By: Jigna Brantley on 07-12-2024 Chloride [Moles/Vol] 104 mmol/L 98-107 [facility] Eosinophil percentageOrdered By: Jigna Brantley on 07-12-2024 Eosinophils/100 WBC (Bld) 0.0 % 0-5 [facility] Erythrocyte distribution wid th (RBC) [Ratio]Ordered By: Jigna Brantley on 07-12-2024 Erythrocyte distribution width (RBC) [Entitic vol] 44.1 fL High 35.1-43.9 [facility] Erythrocyte distribution wid th ratioOrdered By: Jigna Brantley on 07-12-2024 Erythrocyte distribution width (RBC) [Ratio] 12.8 % 11.6-14.6 [facility] Erythrocyte distribution wid th standard deviationOrdered By: Jigna Brantley on 07-12-2024 Erythrocyte distribution width (RBC) [Ratio] 44.1 fl High 35.1-43.9 [facility] Estimated glomerular filtrat ion rate (GFR) AmericanOrdered By: Jigna Brantley on 07-12-2024 Estimated GFR (MDRD) Amer 78 mL/min >60 [facility] Comment on above: GFR Calc Glomerular filtration rate ( GFR) estimationOrdered By: Jigna Brantley on 07-12-2024 Estimated GFR (MDRD) Non-Af Amer 65 mL/min >60 [facility] Comment on above: Non- GFR Calc GFR/1.73 sq M.predicted among non-blacks MDRD (S/P/Bld) [Vol rate/Area] 65 mL/min/{1.73_m2} >60 [facility] Comment on above: Non- GFR Calc Glucose measurementOrdered B y: Jigna Brantley on 07-12-2024 Glucose [Mass/Vol] 104 mg/dL 74-106 [facility] Comment on above: Fasting Glucose resu lt from 100 to 125 mg/dL suggests IMPAIRED HOMEOSTASIS per A.D.A. criteria. Hematocrit Auto (Bld) [Volum e fraction]Ordered By: Jigna Brantley on 07-12-2024 Hematocrit (Bld) [Volume fraction] 41.3 % 40-54 [facility] Hemoglobin A1con 07-12-2024 HbA1c (Bld) [Mass fraction] 6.2 % High 3.8-5.6 [facility] Comment on above: Order Comment: 1 Y Result Comment: Norm al < 5.7 % Prediabetic 5.7 - 6.4 % Diabetic >or= 6.5 % Please note range changes. Performed By: #### L 500.4050, L503.6005, L300.8000, L100.0100, L501.2433 #### [facility] [address] [place], [place], [id number] Hemoglobin A1c percentageOrd ered By: Jigna Brantley on 07-12-2024 HbA1c (Bld) [Mass fraction] 6.2 % High 3.8-5.6 [facility] Comment on above: Normal < 5.7 % Predi abetic 5.7 - 6.4 % Diabetic >or= 6.5 % Please note range changes. Hemoglobin measurementOrdere d By: Jigna Brantley on 07-12-2024 Hemoglobin (Bld) [Mass/Vol] 13.2 g/dL 13.0-16.5 [facility] Immature granulocytes/100 WB C Auto (Bld)Ordered By: Jigna Brantley on 07-12-2024 Immature granulocytes/100 WBC (Bld) 0.600 % 0.0-0.9 [facility] Comment on above: IG% - Immature Granu locytes (promyelocytes, myelocytes and metamyelocytes) > 1% indicates that a LEFT SHIFT is Present. Lymphocytes Auto (Unsp spec) [#/Vol]Ordered By: Jigna Brantley on 07-12-2024 Lymphocytes (Bld) [#/Vol] 1.79 10*3/uL 0.83-4.51 [facility] Lymphocytes/100 WBC Auto (Un sp spec)Ordered By: Jigna Brantley on 07-12-2024 Lymphocytes/100 WBC (Bld) 17.4 % Low 19-41 [facility] MCV (mean corpuscular volume ) determinationOrdered By: Jigna Brantley on 07-12-2024 MCV (RBC) [Entitic vol] 93.4 fL 80-94 [facility] Magnesiumon 07-12-2024 Magnesium [Mass/Vol] 2.7 mg/dL High 1.6-2.6 [facility] Comment on above: Order Comment: 1 Y Performed By: #### L 500.4050, L503.6005, L300.8000, L100.0100, L501.5425 #### [facility] [address] [place] [address]. [place], [address] Magnesium measurementOrdered By: Jigna Brantley on 07-12-2024 Magnesium [Mass/Vol] 2.7 mg/dL High 1.6-2.6 [facility] Mean corpuscular hemoglobin (MCH) determinationOrdered By: Jigna Brantley on 07-12-2024 MCH (RBC) [Entitic mass] 29.9 pg 27.0-32.0 [facility] Mean corpuscular hemoglobin concentration (MCHC) determinationOrdered By: Jgina Brantley on 07-12-2024 MCHC (RBC) [Mass/Vol] 32.0 g/dL 32-36 [facility] Mean platelet volume determi nationOrdered By: Jigna Brantley on 07-12-2024 Platelet mean volume (Bld) [Entitic vol] 10.7 fL 6.2-12.0 [facility] Monocyte percentageOrdered B y: Jigna Brantley on 07-12-2024 Monocytes/100 WBC (Bld) 8.1 % 0-10 [facility] Neutrophil percentageOrdered By: Jigna Brantley on 07-12-2024 Neutrophils/100 WBC (Bld) 73.7 % High 47-70 [facility] Nucleated red blood cell per centageOrdered By: Jigna Brantley on 07-12-2024 Nucleated RBC/100 WBC (Bld) [Ratio] 0 % 0-5 [facility] Platelet countOrdered By: Fabricio Brantley on 07-12-2024 Platelets (Bld) [#/Vol] 502 10*3/uL High 150-450 [facility] Potassium measurementOrdered By: Jigna Brantley on 07-12-2024 Potassium [Moles/Vol] 3.8 mmol/L 3.5-5.1 [facility] RBC Auto (Bld) [#/Vol]Ordere d By: Jigna Brantley on 07-12-2024 RBC (Bld) [#/Vol] 4.42 10*6/uL Low 4.6-6.2 [facility] Serum anion gap measurementO rdered By: Jigna Brantley on 07-12-2024 Anion gap [Moles/Vol] 5 mmol/L 5-15 [facility] Serum or plasma calcium rosalina urement (mass/volume)Ordered By: Jigna Brantley on 07-12-2024 Calcium [Mass/Vol] 9.6 mg/dL 8.5-10.1 [facility] Serum or plasma creatinine m easurement (mass/volume)Ordered By: Jigna Brantley on 07-12-2024 Creatinine [Mass/Vol] 1.19 mg/dL 0.70-1.30 [facility] Comment on above: The validity of the calculated GFR & GFRAA in patients over 70 years has not been determined. Clinical correlation is essential. Serum or plasma thyroid stim ulating hormone (TSH) measurement (units/volume)Ordered By: Jigna Brantley on 07-12-2024 TSH Qn 2.960 uIU/mL 0.358-3.740 [facility] Serum or plasma urea nitroge n measurement (mass/volume)Ordered By: Jigna Brantley on 07-12-2024 Urea nitrogen [Mass/Vol] 25 mg/dL High 7-18 [facility] Sodium levelOrdered By: Enoch Brantley on 07-12-2024 Sodium [Moles/Vol] 141 mmol/L 136-145 [facility] TSH QnOrdered By: Jigna jefferson on 07-12-2024 Thyroid Stimulating Hormone (TSH) 2.960 uIU/mL 0.358-3.740 [facility] Thyroid Stim Hormone (TSH)on 07-12-2024 TSH 2.960 uIU/mL Normal 0.358-3.740 [facility] Comment on above: Order Comment: 1 Y Performed By: #### L 500.4050, L503.6005, L300.8000, L100.0100, L501.5425 #### [facility] [address] [place], [address] Vitamin B12on 07-12-2024 Cobalamin (Vitamin B12) [Mass/Vol] 273 pg/mL Normal 211-911 [facility] Comment on above: Order Comment: 1 Y Performed By: #### L 500.4050, L503.6005, L300.8000, L100.0100, L501.5425 #### [facility] [address] [place], [address] Vitamin B12 measurementOrder ed By: Jigna Brantley on 07-12-2024 Cobalamin (Vitamin B12) [Mass/Vol] 273 pg/mL 211-911 [facility] Vitamin D,25 Hydroxyon 07-12 Vitamin D 25-OH 6.3 ng/mL Normal [facility] Comment on above: Order Comment: 1 Y Result Comment: Divine min D 25(OH) Status Range Deficiency <20 ng/mL (50nmol/L) Insufficiency 20 - 30 ng/mL (50 - 75 nmol/L) Sufficiency 30 - 100 ng/mL (75 - 250 nmol/L) Toxicity >100 ng/mL (>250 nmol/L) Performed By: #### L 500.4050, L503.6005, L300.8000, L100.0100, L501.5425 #### [facility] [address] [place], [address] White blood cell (WBC) count Ordered By: Jigna Brantley on 07-12-2024 WBC (Bld) [#/Vol] 10.3 10*3/uL 4.4-11.0 [facility] Bedside Glucoseon 07-11-2024 FINGERSTICK GLU 138 mg/dL High 74-106 [facility] Comment on above: Result Comment: KARUNA GEMENT OF PATIENT CARE PER NURSING PROTOCOL Performed By: #### L 500.4050, L503.6005, L300.8000, L100.0100, L501.5425 #### [facility] [address] [place], [address] FINGERSTICK GLU 185 mg/dL High 74-106 [facility] Comment on above: Result Comment: KARUNA GEMENT OF PATIENT CARE PER NURSING PROTOCOL Performed By: #### L 500.4050, L503.6005, L300.8000, L100.0100, L501.5425 #### [facility] [address] [place], [address] FINGERSTICK GLU 105 mg/dL Normal 74-106 [facility] Comment on above: Result Comment: KARUNA GEMENT OF PATIENT CARE PER NURSING PROTOCOL Performed By: #### L 500.4050, L503.6005, L300.8000, L100.0100, L501.5425 #### [facility] [address] [place], [address] Glucose measurement at [facility] deOrdered By: Yann Ascencio on 07-11-2024 Bedside Glucose (Misc Panel) 138 mg/dL High 74-106 [facility] Comment on above: MANAGEMENT OF PATIEN T CARE PER NURSING PROTOCOL Glucose [Mass/Vol] 138 mg/dL High 74-106 [facility] Comment on above: MANAGEMENT OF PATIEN T CARE PER NURSING PROTOCOL Absolute lymphocyte countOrd ered By: Yann Ascencio on 07-10-2024 Lymphocytes Auto (Unsp spec) [#/Vol] 0.60 10*3/uL Low 0.83-4.51 [facility] Absolute neutrophil countOrd ered By: Yann Ascencio on 07-10-2024 Neutrophils (Bld) [#/Vol] 7.5 10*3/uL 2.0-7.7 [facility] Automated lymphocyte count a s percentage of total leukocytesOrdered By: Yann Ascencio on 07-10-2024 Lymphocytes/100 WBC Auto (Unsp spec) 6.9 % Low 19-41 [facility] Basic Metabolic Profile (BMP )on 07-10-2024 BUN/CRE 17.5 RATIO Normal 10-20 [facility] Comment on above: Performed By: #### L 500.4050, L503.6005, L300.8000, L100.0100, L501.5425 #### [facility] [address] [place], [address] CA,Total 9.9 mg/dL Normal 8.5-10.1 [facility] Comment on above: Performed By: #### L 500.4050, L503.6005, L300.8000, L100.0100, L501.5425 #### [facility] [address] [place], [address] Chloride [Moles/Vol] 105 mmol/L Normal 98-107 [facility] Comment on above: Performed By: #### L 500.4050, L503.6005, L300.8000, L100.0100, L501.5425 #### [facility] [address] [place], [address] CO2 [Moles/Vol] 25.0 mmol/L Normal 21.0-32.0 [facility] Comment on above: Performed By: #### L 500.4050, L503.6005, L300.8000, L100.0100, L501.5425 #### [facility] [address] [place], [address] Creatinine [Mass/Vol] 1.03 mg/dL Normal 0.70-1.30 [facility] Comment on above: Result Comment: The validity of the calculated GFR GFRAA in patients over 70 years has not been determined. Clinical correlation is essential. Performed By: #### L 500.4050, L503.6005, L300.8000, L100.0100, L501.5425 #### [facility] [address] [place], [address] ECRCL 84.26 ml/min Normal [facility] Comment on above: Performed By: #### L 500.4050, L503.6005, L300.8000, L100.0100, L501.5425 #### [facility] [address] [place], [address] EST GFR - AA 93 mL/min Normal >60 [facility] Comment on above: Result Comment: Afri can Prydeinig GFR Calc Performed By: #### L 500.4050, L503.6005, L300.8000, L100.0100, L501.5425 #### [facility] [address] [place], [address] GAP 8 Normal 5-15 [facility] Comment on above: Performed By: #### L 500.4050, L503.6005, L300.8000, L100.0100, L501.5425 #### [facility] [address] [place], [address] GFR/1.73 sq M.predicted among non-blacks MDRD (S/P/Bld) [Vol rate/Area] 76 mL/min/{1.73_m2} Normal >60 [facility] Comment on above: Result Comment: Non- GFR Calc Performed By: #### L 500.4050, L503.6005, L300.8000, L100.0100, L501.5425 #### [facility] [address] [place], [address] Glucose [Mass/Vol] 142 mg/dL High 74-106 [facility] Comment on above: Result Comment: Fast ing Glucose result greater than or equal to 126 mg/dL suggests DIABETES MELLITUS per A.D.A. criteria. Performed By: #### L 500.4050, L503.6005, L300.8000, L100.0100, L501.5425 #### [facility] [address] [place], [address] Potassium [Moles/Vol] 3.5 mmol/L Normal 3.5-5.1 [facility] Comment on above: Performed By: #### L 500.4050, L503.6005, L300.8000, L100.0100, L501.5425 #### [facility] [address] [place], [address] Sodium [Moles/Vol] 138 mmol/L Normal 136-145 [facility] Comment on above: Performed By: #### L 500.4050, L503.6005, L300.8000, L100.0100, L501.5425 #### [facility] [address] [place], [address] Urea nitrogen [Mass/Vol] 18 mg/dL Normal 7-18 [facility] Comment on above: Performed By: #### L 500.4050, L503.6005, L300.8000, L100.0100, L501.5425 #### [facility] [address] [place], [address] Basophil percentageOrdered B y: Yann Ascencio on 07-10-2024 Basophils/100 WBC (Bld) 0.1 % 0-1 [facility] Bedside Glucoseon 07-10-2024 FINGERSTICK GLU 148 mg/dL High 74-106 [facility] Comment on above: Result Comment: KARUNA GEMENT OF PATIENT CARE PER NURSING PROTOCOL Performed By: #### L 500.4050, L503.6005, L300.8000, L100.0100, L501.5425 #### [facility] [address] [place], [address] FINGERSTICK GLU 111 mg/dL High 74-106 [facility] Comment on above: Result Comment: KARUNA GEMENT OF PATIENT CARE PER NURSING PROTOCOL Performed By: #### L 500.4050, L503.6005, L300.8000, L100.0100, L501.5425 #### [facility] [address] [place], [address] FINGERSTICK GLU 147 mg/dL High -106 [facility] Comment on above: Result Comment: KARUNA GEMENT OF PATIENT CARE PER NURSING PROTOCOL Performed By: #### L 500.4050, L503.6005, L300.8000, L100.0100, L501.5425 #### [facility] [address] [place], [address] FINGERSTICK GLU 136 mg/dL High 74-106 [facility] Comment on above: Result Comment: KARUNA GEMENT OF PATIENT CARE PER NURSING PROTOCOL Performed By: #### L 501.080 #### [facility] [address] [place], [address] Blood urea nitrogen (BUN)/cr eatinine ratioOrdered By: Yann Ascencio on 07-10-2024 Urea nitrogen/Creatinine [Mass ratio] 17.5 mg/mg 10-20 [facility] CBC W/Diff, Automatedon 06-30 PATH REV Reviewed Normal [facility] Comment on above: Result Comment: Neut rophilic leukocytosis. Clinical correlation necessary. Sreekanth Zhou M.D. 07/10/24 AMENDED REPORT 07/10/24 1444 PATH REV previously reported as: September Performed By: #### L 500.4050, L503.6005, L300.8000, L100.0100, L501.5425 #### [facility] [address] [place], [address] Absolute Lymph 0.60 X10 3/uL Low 0.83-4.51 [facility] Comment on above: Performed By: #### L 500.4050, L503.6005, L300.8000, L100.0100, L501.5425 #### [facility] [address] [place], [address] Absolute Neut 7.5 X10 3/uL Normal 2.0-7.7 [facility] Comment on above: Performed By: #### L 500.4050, L503.6005, L300.8000, L100.0100, L501.5425 #### [facility] [address] [place], [address] Basophils/100 WBC (Bld) 0.1 % Normal 0-1 [facility] Comment on above: Performed By: #### L 500.4050, L503.6005, L300.8000, L100.0100, L501.5425 #### [facility] [address] [place], [address] Eosinophils/100 WBC (Bld) 0.0 % Normal 0-5 [facility] Comment on above: Performed By: #### L 500.4050, L503.6005, L300.8000, L100.0100, L501.5425 #### [facility] [address] [place], [address] Erythrocyte distribution width (RBC) [Ratio] 12.9 % Normal 11.6-14.6 [facility] Comment on above: Performed By: #### L 500.4050, L503.6005, L300.8000, L100.0100, L501.5425 #### [facility] [address] [place], [address] Hematocrit (Bld) [Volume fraction] 38.3 % Low 40-54 [facility] Comment on above: Performed By: #### L 500.4050, L503.6005, L300.8000, L100.0100, L501.5425 #### [facility] [address] [place], [address] Hemoglobin (Bld) [Mass/Vol] 12.2 g/dL Low 13.0-16.5 [facility] Comment on above: Performed By: #### L 500.4050, L503.6005, L300.8000, L100.0100, L501.5425 #### [facility] [address] [place], [address] IG% 0.500 Normal 0.0-0.9 [facility] Comment on above: Result Comment: IG% - Immature Granulocytes (promyelocytes, myelocytes and metamyelocytes) > 1% indicates that a LEFT SHIFT is Present. Performed By: #### L 500.4050, L503.6005, L300.8000, L100.0100, L501.5425 #### [facility] [address] [place], [address] Lymphocytes/100 WBC (Bld) 6.9 % Low 19-41 [facility] Comment on above: Performed By: #### L 500.4050, L503.6005, L300.8000, L100.0100, L501.5425 #### [facility] [address] [place], [address] MCH (RBC) [Entitic mass] 30.0 pg Normal 27.0-32.0 [facility] Comment on above: Performed By: #### L 500.4050, L503.6005, L300.8000, L100.0100, L501.5425 #### [facility] [address] [place], [address] MCHC (RBC) [Mass/Vol] 31.9 g/dL Low 32-36 [facility] Comment on above: Performed By: #### L 500.4050, L503.6005, L300.8000, L100.0100, L501.5425 #### [facility] [address] [place], [address] MCV (RBC) [Entitic vol] 94.3 fL High 80-94 [facility] Comment on above: Performed By: #### L 500.4050, L503.6005, L300.8000, L100.0100, L501.5425 #### [facility] [address] [place], [address] Monocytes/100 WBC (Bld) 6.6 % Normal 0-10 [facility] Comment on above: Performed By: #### L 500.4050, L503.6005, L300.8000, L100.0100, L501.5425 #### [facility] [address] [place], [address] Neutrophils/100 WBC (Bld) 85.9 % High 47-70 [facility] Comment on above: Performed By: #### L 500.4050, L503.6005, L300.8000, L100.0100, L501.5425 #### [facility] [address] [place], [address] Nucleated RBC (Bld) [#/Vol] 0 10*3/uL Normal 0-5 [facility] Comment on above: Performed By: #### L 500.4050, L503.6005, L300.8000, L100.0100, L501.5425 #### [facility] [address] [place], [address] Platelet mean volume (Bld) [Entitic vol] 10.9 fL Normal 6.2-12.0 [facility] Comment on above: Performed By: #### L 500.4050, L503.6005, L300.8000, L100.0100, L501.5425 #### [facility] [address] [place], [address] Platelets (Bld) [#/Vol] 300 10*3/uL Normal 150-450 [facility] Comment on above: Performed By: #### L 500.4050, L503.6005, L300.8000, L100.0100, L501.5425 #### [facility] [address] [place], [address] RBC (Bld) [#/Vol] 4.06 10*6/uL Low 4.6-6.2 [facility] Comment on above: Performed By: #### L 500.4050, L503.6005, L300.8000, L100.0100, L501.5425 #### [facility] [address] [place], [address] RDW SD 44.8 fl High 35.1-43.9 [facility] Comment on above: Performed By: #### L 500.4050, L503.6005, L300.8000, L100.0100, L501.5425 #### [facility] [address] [place], [address] WBC (Bld) [#/Vol] 8.7 10*3/uL Normal 4.4-11.0 [facility] Comment on above: Performed By: #### L 500.4050, L503.6005, L300.8000, L100.0100, L501.5425 #### [facility] [address] [place], [address] Carbon dioxide measurementOr dered By: Yann Ascencio on 07-10-2024 CO2 [Moles/Vol] 25.0 mmol/L 21.0-32.0 [facility] Chloride measurementOrdered By: Yann Ascencio on 07-10-2024 Chloride [Moles/Vol] 105 mmol/L 98-107 [facility] Eosinophil percentageOrdered By: Yann Ascencio on 07-10-2024 Eosinophils/100 WBC (Bld) 0.0 % 0-5 [facility] Erythrocyte distribution wid th (RBC) [Ratio]Ordered By: Yann Ascencio on 07-10-2024 Erythrocyte distribution width (RBC) [Entitic vol] 44.8 fL High 35.1-43.9 [facility] Erythrocyte distribution wid th ratioOrdered By: Yann Ascencio on 07-10-2024 Erythrocyte distribution width (RBC) [Ratio] 12.9 % 11.6-14.6 [facility] Erythrocyte distribution wid th standard deviationOrdered By: Yann Ascencio on 07-10-2024 Erythrocyte distribution width (RBC) [Ratio] 44.8 fl High 35.1-43.9 [facility] Estimated glomerular filtrat ion rate (GFR) AmericanOrdered By: Yann Ascencio on 07-10-2024 Estimated GFR (MDRD) Amer 93 mL/min >60 [facility] Comment on above: GFR Calc Estimation of creatinine karlee aranceOrdered By: Yann Ascencio on 07-10-2024 Estimated Creatinine Clearance Calc 84.26 ml/min [facility] Glomerular filtration rate ( GFR) estimationOrdered By: Yann Ascencio on 07-10-2024 Estimated GFR (MDRD) Non-Af Amer 76 mL/min >60 [facility] Comment on above: Non- GFR Calc GFR/1.73 sq M.predicted among non-blacks MDRD (S/P/Bld) [Vol rate/Area] 76 mL/min/{1.73_m2} >60 [facility] Comment on above: Non- GFR Calc Glucose measurementOrdered B y: Yann Ascencio on 07-10-2024 Glucose [Mass/Vol] 142 mg/dL High 74-106 [facility] Comment on above: Fasting Glucose resu lt greater than or equal to 126 mg/dL suggests DIABETES MELLITUS per A.D.A. criteria. Hematocrit Auto (Bld) [Volum e fraction]Ordered By: Yann Ascencio on 07-10-2024 Hematocrit (Bld) [Volume fraction] 38.3 % Low 40-54 [facility] Hemoglobin A1con 07-10-2024 HbA1c (Bld) [Mass fraction] 6.0 % High 3.8-5.6 [facility] Comment on above: Result Comment: Norm al < 5.7 % Prediabetic 5.7 - 6.4 % Diabetic >or= 6.5 % Please note range changes. Performed By: #### L 500.4050, L503.6005, L300.8000, L100.0100, L501.5425 #### [facility] [place], [address] Hemoglobin A1c percentageOrd ered By: Yann Ascencio on 07-10-2024 HbA1c (Bld) [Mass fraction] 6.0 % High 3.8-5.6 [facility] Comment on above: Normal < 5.7 % Predi abetic 5.7 - 6.4 % Diabetic >or= 6.5 % Please note range changes. Hemoglobin measurementOrdere d By: Yann Ascencio on 07-10-2024 Hemoglobin (Bld) [Mass/Vol] 12.2 g/dL Low 13.0-16.5 [facility] Immature granulocytes/100 WB C Auto (Bld)Ordered By: Yann Ascencio on 07-10-2024 Immature granulocytes/100 WBC (Bld) 0.500 % 0.0-0.9 [facility] Comment on above: IG% - Immature Granu locytes (promyelocytes, myelocytes and metamyelocytes) > 1% indicates that a LEFT SHIFT is Present. Lymphocytes Auto (Unsp spec) [#/Vol]Ordered By: Yann Ascencio on 07-10-2024 Lymphocytes (Bld) [#/Vol] 0.60 10*3/uL Low 0.83-4.51 [facility] Lymphocytes/100 WBC Auto (Un sp spec)Ordered By: Yann Ascencio on 07-10-2024 Lymphocytes/100 WBC (Bld) 6.9 % Low 19-41 [facility] MCV (mean corpuscular volume ) determinationOrdered By: Yann Ascencio on 07-10-2024 MCV (RBC) [Entitic vol] 94.3 fL High 80-94 [facility] Mean corpuscular hemoglobin (MCH) determinationOrdered By: Yann Ascencio on 07-10-2024 MCH (RBC) [Entitic mass] 30.0 pg 27.0-32.0 [facility] Mean corpuscular hemoglobin concentration (MCHC) determinationOrdered By: Yann Ascecnio on 07-10-2024 MCHC (RBC) [Mass/Vol] 31.9 g/dL Low 32-36 [facility] Mean platelet volume determi nationOrdered By: Yann Ascencio on 07-10-2024 Platelet mean volume (Bld) [Entitic vol] 10.9 fL 6.2-12.0 [facility] Monocyte percentageOrdered B y: Yann Ascencio on 07-10-2024 Monocytes/100 WBC (Bld) 6.6 % 0-10 [facility] Neutrophil percentageOrdered By: Yann Ascencio on 07-10-2024 Neutrophils/100 WBC (Bld) 85.9 % High 47-70 [facility] Nucleated red blood cell per centageOrdered By: Yann Ascencio on 07-10-2024 Nucleated RBC/100 WBC (Bld) [Ratio] 0 % 0-5 [facility] Platelet countOrdered By: Damien Ascencio on 07-10-2024 Platelets (Bld) [#/Vol] 300 10*3/uL 150-450 [facility] Potassium measurementOrdered By: Yann Ascencio on 07-10-2024 Potassium [Moles/Vol] 3.5 mmol/L 3.5-5.1 [facility] RBC Auto (Bld) [#/Vol]Ordere d By: Yann Ascencio on 07-10-2024 RBC (Bld) [#/Vol] 4.06 10*6/uL Low 4.6-6.2 [facility] Serum anion gap measurementO rdered By: Yann Ascencio on 07-10-2024 Anion gap [Moles/Vol] 8 mmol/L 5-15 [facility] Serum or plasma calcium rosalina urement (mass/volume)Ordered By: Yann Ascencio on 07-10-2024 Calcium [Mass/Vol] 9.9 mg/dL 8.5-10.1 [facility] Serum or plasma creatinine m easurement (mass/volume)Ordered By: Yann Ascencio on 07-10-2024 Creatinine [Mass/Vol] 1.03 mg/dL 0.70-1.30 [facility] Comment on above: The validity of the calculated GFR & GFRAA in patients over 70 years has not been determined. Clinical correlation is essential. Serum or plasma urea nitroge n measurement (mass/volume)Ordered By: Yann Ascencio on 07-10-2024 Urea nitrogen [Mass/Vol] 18 mg/dL 7-18 [facility] Sodium levelOrdered By: Yann Ascencio on 07-10-2024 Sodium [Moles/Vol] 138 mmol/L 136-145 [facility] White blood cell (WBC) count Ordered By: Yann Ascencio on 07-10-2024 WBC (Bld) [#/Vol] 8.7 10*3/uL 4.4-11.0 [facility] 12 Lead EKGon 07-09-2024 12 Lead EKG [facility] Cardiovascular Services [address] [place] [address] 12 Lead EKG 07/09/24 0825 MR#: [id number] Acct: [id number] Name: REINA SULLIVAN Rep #: [id number] : 1955 69 From: Олег Andrade MD [...] abnormality Abnormal ECG Confirmed by Олег Andrade ([id number]), content editor MARLENE CAMP ([id number]) on 07/10/2024 10:05:21 AM Referred By: RONNELL Confirmed By: Олег Andrade 07/10/24 1005 Date Олег Andrade MD CC: Dr. Priscilla Reynaga MD; Dr. Yann Ascencio DO; Dr. Aric Zapien MD Signed Normal [facility] Albumin to globulin ratioOrd ered By: Priscilla Reynaga on 07-09-2024 Albumin/Globulin [Mass ratio] 0.7 {ratio} Low 0.9-2.4 [facility] Ankle min 3 Viewson 07-09-19 Ankle min 3 Views [facility] Imaging Services [address] [place] [address] Ankle min 3 Views MR#: [id number] Acct: [id number] Name: REINA SULLIVAN Rep #: [id number] : 1955 M 69 From: Roscoe emmanuel MD PCP: Dr. Aric Zapien MD Status: REG ER Study: Ankle min 3 Views Date of Exam: 07/09/24 Exam# [id number] Ordering Dr: Priscilla Reynaga MD EXAM: ANKLE MIN 3 VIEWS CLINICAL HISTORY: Pain following injury. COMPARISON: None. TECHNIQUE: Three views were obtained. FINDINGS: Diffuse soft tissue swelling. No fracture is seen. Small plantar spur. RAD/Ankle min 3 Views IMPRESSION: Diffuse soft tissue swelling. Reading Location: [facility] CC: Dr. Priscilla Reynaga MD; Dr. Aric Zapien MD [place] Upholsterer: Signed Normal [facility] Bedside Glucoseon 07-09-2024 FINGERSTICK GLU 132 mg/dL High 74-106 [facility] Comment on above: Result Comment: KARUNA GEMENT OF PATIENT CARE PER NURSING PROTOCOL Performed By: #### L 501.080 #### [facility] [address] [place], [address] FINGERSTICK GLU 152 mg/dL High 74-106 [facility] Comment on above: Result Comment: KARUNA GEMENT OF PATIENT CARE PER NURSING PROTOCOL Performed By: #### L 500.4050, L503.6005, L300.8000, L100.0100, L501.5425 #### [facility] [address] [place], [address] FINGERSTICK GLU 109 mg/dL High 74-106 [facility] Comment on above: Result Comment: KARUNA GEMENT OF PATIENT CARE PER NURSING PROTOCOL Performed By: #### L 500.4050, L503.6005, L300.8000, L100.0100, L501.5425 #### [facility] [address] [place], [address] Bilirubin Test strip Ql (U)O rdered By: Priscilla Reynaga on 07-09-2024 Bilirubin Ql (U) 1 mg/dL High Negative [facility] Comment on above: COLOR OF URINE MAY A FFECT DIPSTICK RESULTS. Bilirubin, totalOrdered By: Priscilla Reynaga on 07-09-2024 Bilirubin [Mass/Vol] 0.80 mg/dL 0.20-1.00 [facility] Comment on above: For patients on eltr ombopag therapy, use of Dimension [place] TBIL is not recommended. Chest 1 View (Portable)on Chest 1 View (Portable) [facility] Imaging Services [address] [place] [address] Chest 1 View (Portable) MR#: [id number] Acct: [id number] Name: REINA SULLIVAN Rep #: [id number] : 1955 M 69 From: Jeffy Belle PCP: Dr. Aric Zapien MD Status: REG ER Study: Chest 1 View (Portable) Date of Exam: 07/09/24 Exam# [id number] Ordering Dr: Priscilla Reynaga MD PROCEDURE: CHEST [...] acute osseous process is seen. Reading Location: [address] CC: Dr. Priscilla Reynaga MD; Dr. Aric Zapien MD [place] Upholsterer: Signed Normal [facility] Comprehensive Metabolic Prof ilon 07-09-2024 Albumin [Mass/Vol] 2.9 g/dL Low 3.2-5.0 [facility] Comment on above: Performed By: #### L 500.4050, L503.6005, L300.8000, L100.0100, L501.5425 #### [facility] [address] [place], [address] Albumin/Globulin [Mass ratio] 0.7 {ratio} Low 0.9-2.4 [facility] Comment on above: Performed By: #### L 500.4050, L503.6005, L300.8000, L100.0100, L501.5425 #### [facility] [address] [place], [address] ALK P 68 U/L Normal 45-117 [facility] Comment on above: Performed By: #### L 500.4050, L503.6005, L300.8000, L100.0100, L501.5425 #### [facility] [address] [place], [address] ALT [Catalytic activity/Vol] 16 U/L Normal 16-61 [facility] Comment on above: Performed By: #### L 500.4050, L503.6005, L300.8000, L100.0100, L501.5425 #### [facility] [address] [place], [address] AST [Catalytic activity/Vol] 11 U/L Low 15-37 [facility] Comment on above: Performed By: #### L 500.4050, L503.6005, L300.8000, L100.0100, L501.5425 #### [facility] [address] [place], [address] Bilirubin [Mass/Vol] 0.80 mg/dL Normal 0.20-1.00 [facility] Comment on above: Result Comment: For patients on eltrombopag therapy, use of Dimension [place] TBIL is not recommended. Performed By: #### L 500.4050, L503.6005, L300.8000, L100.0100, L501.5425 #### [facility] [address] [place], [address] BUN/CRE 14.5 RATIO Normal 10-20 [facility] Comment on above: Performed By: #### L 500.4050, L503.6005, L300.8000, L100.0100, L501.5425 #### [facility] [address] [place], [address] CA,Total 9.3 mg/dL Normal 8.5-10.1 [facility] Comment on above: Performed By: #### L 500.4050, L503.6005, L300.8000, L100.0100, L501.5425 #### [facility] [address] [place], [address] Chloride [Moles/Vol] 104 mmol/L Normal 98-107 [facility] Comment on above: Performed By: #### L 500.4050, L503.6005, L300.8000, L100.0100, L501.5425 #### [facility] [address] [place], [address] CO2 [Moles/Vol] 27.0 mmol/L Normal 21.0-32.0 [facility] Comment on above: Performed By: #### L 500.4050, L503.6005, L300.8000, L100.0100, L501.5425 #### [facility] [address] [place], [address] Creatinine [Mass/Vol] 1.38 mg/dL High 0.70-1.30 [facility] Comment on above: Result Comment: The validity of the calculated GFR GFRAA in patients over 70 years has not been determined. Clinical correlation is essential. Performed By: #### L 500.4050, L503.6005, L300.8000, L100.0100, L501.5425 #### [facility] [address] [place], [address] ECRCL 66.83 ml/min Normal [facility] Comment on above: Performed By: #### L 500.4050, L503.6005, L300.8000, L100.0100, L501.5425 #### [facility] [address] [place], [address] EST GFR - AA 66 mL/min Normal >60 [facility] Comment on above: Result Comment: Afri can Prydeinig GFR Calc Performed By: #### L 500.4050, L503.6005, L300.8000, L100.0100, L501.5425 #### [facility] [address] [place], [address] GAP 10 Normal 5-15 [facility] Comment on above: Performed By: #### L 500.4050, L503.6005, L300.8000, L100.0100, L501.5425 #### [facility] [address] [place], [address] GFR/1.73 sq M.predicted among non-blacks MDRD (S/P/Bld) [Vol rate/Area] 55 mL/min/{1.73_m2} Low >60 [facility] Comment on above: Result Comment: Non- GFR Calc Performed By: #### L 500.4050, L503.6005, L300.8000, L100.0100, L501.5425 #### [facility] [address] [place], [address] Globulin (S) [Mass/Vol] 4.4 g/dL High 2.2-4.2 [facility] Comment on above: Performed By: #### L 500.4050, L503.6005, L300.8000, L100.0100, L501.5425 #### [facility] [address] [place], [address] Glucose [Mass/Vol] 117 mg/dL High 74-106 [facility] Comment on above: Result Comment: Fast ing Glucose result from 100 to 125 mg/dL suggests IMPAIRED HOMEOSTASIS per A.D.A. criteria. Performed By: #### L 500.4050, L503.6005, L300.8000, L100.0100, L501.5425 #### [facility] [address] [place], [address] Potassium [Moles/Vol] 3.1 mmol/L Low 3.5-5.1 [facility] Comment on above: Performed By: #### L 500.4050, L503.6005, L300.8000, L100.0100, L501.5425 #### [facility] [address] [place], [address] Sodium [Moles/Vol] 141 mmol/L Normal 136-145 [facility] Comment on above: Performed By: #### L 500.4050, L503.6005, L300.8000, L100.0100, L501.5425 #### [facility] [address] [place], [address] T PROT 7.3 g/dL Normal 6.4-8.2 [facility] Comment on above: Performed By: #### L 500.4050, L503.6005, L300.8000, L100.0100, L501.5425 #### [facility] [address] [place], [address] Urea nitrogen [Mass/Vol] 20 mg/dL High 7-18 [facility] Comment on above: Performed By: #### L 500.4050, L503.6005, L300.8000, L100.0100, L501.5425 #### [facility] [address] [place], [address] D-Dimer Quantitative (DVT/PE )on 07-09-2024 D-DIMER QUANT 1.11 FEU/ug/m Invalid Interpretation Code 0.27-0.49 [facility] Comment on above: Result Comment: D-Di phillip ELEVATED (>0.49): Additional studies and clinical assessments are indicated to conclude diagnosis of: Deep Vein Thrombosis (DVT) or Pulmonary Embolism (PE) CRITICAL VALUE CALLED TO Reddy CHRISTIE 07/09/24 0925 Vesta Gutierrez. RESULTS READ BACK BY . Performed By: #### L 500.4050, L503.6005, L300.8000, L100.0100, L501.5425 #### [facility] [address] [place], [address] D-dimer measurement for deep venous thrombosisOrdered By: Priscilla Reynaga on 07-09-2024 D-Dimer Quantitative (PE/DVT) 1.11 FEU/ug/m High 0.27-0.49 [facility] Comment on above: D-Dimer ELEVATED (>0 .49): Additional studies and clinicalassessments are indicated to conclude diagnosis of:Deep Vein Thrombosis (DVT) or Pulmonary Embolism (PE)CRITICAL VALUE CALLED TO Reddy CHRISTIE07/09/24 0925 Vesta Gutierrez.RESULTS READ BACK BY . Echo Completeon 07-09-2024 Echo Complete [facility] Cardiovascular Services [address] [place] [address] Echo Complete 07/10/24 0827 MR#: [id number] Acct: [id number] Name: REINA SULLIVAN Rep #: [id number] : 1955 69 From: Estuardo Irby MD Attending Dr: Dr. Yann Ascencio, Status: ADM IN Ordering Dr: Yann Ascencio DO Date: 07/09/24 Location: U Sex: M C [...] DO; Dr. Aric Zapien MD Date Dictated: 07/10/24826 Date Transcribed: 07/10/241452 [place] Upholsterer: Signed Normal [facility] Emergency Department Summary on 07-09-2024 Emergency Department Summary [facility] Medical Records Department [address] [place] [address] Emergency Department Summary 07/09/24 MR#: [id number] Acct: [id number] Name: REINA SULLIVAN Rep #: [id number] : 1955 69 From: Priscilla Reynaga MD [...] lightheadedness or syncope. [facility] similar [facility] Medical History Essential hypertension Hx of thyroiditis Type 2 diabetes mellitus TIA (transient ischemic attack) [place] (myocardial infarction) Hyperlipidemia Atrial fibrillation with rapid [...] Rate: tachycard (more content not included)... Normal [facility] Epithelial cells.renal LM.HP F (Urine sed) [#/Area]Ordered By: Priscilla Reynaga on 07-09-2024 Urine Renal Epithelial Cells 0-5 SEEN /hpf 0-5 [facility] Epithelial cells.squamous LM Ql (Urine sed)Ordered By: Priscilla Reynaga on 07-09-2024 Epithelial cells.squamous LM.HPF (Urine sed) [#/Area] 0 /[HPF] 0-5 [facility] Fine Granular Casts LM.LPF ( Urine sed) [#/Area]Ordered By: Priscilla Reynaga on 07-09-2024 Urine Fine Granular Casts 0-5 SEEN /lpf 0-5 [facility] Foot min 3 Viewson 5 Foot min 3 Views [facility] Imaging Services [address] [place], [place] [address] Foot min 3 Views MR#: [id number] Acct: [id number] Name: REINA SULLIVAN Rep #: [id number] : 1955 M 69 From: Roscoe emmanuel MD PCP: Dr. Aric Zapien MD Status: REG ER Study: Foot min 3 Views Date of Exam: 07/09/24 Exam# [id number] Ordering Dr: Priscilla Reynaga MD EXAM: FOOT MIN 3 VIEWS CLINICAL HISTORY: Pain following injury. COMPARISON: None TECHNIQUE: Three views were obtained. FINDINGS: Diffuse dorsal soft tissue swelling. RAD/Foot min 3 Views IMPRESSION: Diffuse dorsal soft tissue swelling. Reading Location: [facility] CC: Dr. Priscilla Reynaga MD; Dr. Aric Zapien MD [place] Upholsterer: Signed Normal [facility] Glucose Ql (U)Ordered By: Dmitry Reynaga on 07-09-2024 Urine Glucose (UA) Normal mg/dl Normal [facility] H AND P Exam - Hospitaliston 07-09-2024 H&P Exam - Hospitalist [facility] Medical Records Department [address] [place] [address] H P Exam - Hospitalist 07/09/24 1039 MR#: [id number] Acct: [id number] Name: REINA SULLIVAN Rep #: [id number] : 1955 69 From: Yann Ascencio DO PCP: Dr. Aric Zapien MD Status:ADM IN Location: [facility] [id number] HPI - General General Date of Service: [...] morning due to the severe ankle pain. [facility] Medical History Essential hypertension Hx of thyroiditis Type 2 diabetes mellitus TIA (transient ischemic attack) [place] (myocardial infarction) Hyperlipidemia Atrial fibrillation with rapid [...] tablet 40 mg PO DAILY 11/17/22 Unknown [place] story blood pressure test kit-medium #1 ea [...] Capillary Re (more content not included)... Normal [facility] Hyaline casts LM.LPF (Urine sed) [#/Area]Ordered By: Priscilla Reynaga on 07-09-2024 Hyaline casts (Urine sed) [#/Area] 5 /[LPF] 0-5 [facility] Hyaline casts LM Ql (Urine sed) 5-10 SEEN /lpf 0-5 [facility] Ketones Test strip Ql (U)Ord ered By: Priscilla Reynaga on 07-09-2024 Ketones Ql (U) 50 mg/dl High Negative [facility] L501.4020on 07-09-2024 TROPONIN-I HS 18 pg/mL Normal 3.0-78.0 [facility] Comment on above: Order Comment: 'TROP ' Serial specimen #1, #2 or #3: 3 Result Comment: Plea Note: New Test Units and Gender Specific Reference Ranges. For more information see Policy Stat Procedure [place] High Sensitivity Troponin (TNIH) and attachments. Performed By: #### L 500.4050, L503.6005, L300.8000, L100.0100, L501.5425 #### [facility] [address] [place], [address] TROPONIN-I HS 18 pg/mL Normal 3.0-78.0 [facility] Comment on above: Result Comment: Cristina harris Note: New Test Units and Gender Specific Reference Ranges. For more information see Policy Stat Procedure [place] High Sensitivity Troponin (TNIH) and attachments. Performed By: #### L 500.4050, L503.6005, L300.8000, L100.0100, L501.5425 #### [facility] [address] [place], [address] L501.5425on 07-09-2024 TROPONIN-I HS 15 pg/mL Normal 3.0-78.0 [facility] Comment on above: Order Comment: 1 Y Result Comment: Cristina harris Note: New Test Units and Gender Specific Reference Ranges. For more information see Policy Stat Procedure [place] High Sensitivity Troponin (TNIH) and attachments. Performed By: #### L 500.4050, L503.6005, L300.8000, L100.0100, L501.5425 #### [facility] [address] [place], [place], [address] Laboratory - Chemistry and C hemistry - challengeOrdered By: Priscilla Reynaga on 07-09-2024 AST [Catalytic activity/Vol] 11 U/L Low 15-37 [facility] Lactic Acidon 07-09-2024 Lactate [Moles/Vol] 1.4 mmol/L Normal 0.4-1.9 [facility] Comment on above: Order Comment: Y Performed By: #### L 500.4050, L503.6005, L300.8000, L100.0100, L501.5425 #### [facility] [address] [place], [place], [address] Lactic acid measurementOrder ed By: Priscilla Reynaga on 07-09-2024 Lactate [Moles/Vol] 1.4 mmol/L 0.4-2.0 [facility] Microscopic analysis of urin e for red blood cells (RBC)Ordered By: Priscilla Reynaga on 07-09-2024 Microscopic analysis of urine for red blood cells (RBC) 0-5 SEEN /hpf 0-5 [facility] Urine RBC 0-5 SEEN /hpf 0-5 [facility] Mucus LM Ql (Urine sed)Order ed By: Priscilla Reynaga on 07-09-2024 Mucus Ql (Urine sed) 1+ /hpf [facility] Nitrite Test strip Ql (U)Ord ered By: Priscilla Reynaga on 07-09-2024 Nitrite Ql (U) Negative Negative [facility] Pathologist review Ramses (Unsp spec) [Interp]Ordered By: Priscilla Reynaga on 07-09-2024 Differential Pathologist's Review Reviewed [facility] Comment on above: Previous reported re sult: Arlene villarreal Edited by: SONDRA on 07/10/24:1444Neutrophilic leukocytosis.Clinical correlation necessary.Sreekanth Zhou M.D. 07/10/24 AMENDED REPORT 07/10/24 1444 PATH REV previously reported as: Arlene villarreal Protein Test strip Ql (U)Ord ered By: Priscilla Reynaga on 07-09-2024 Protein Ql (U) 100 mg/dl High Negative [facility] Review by pathologistOrdered By: Priscilla Reynaga on 07-09-2024 Pathologist review Ramses (Unsp spec) [Interp] Reviewed [facility] Comment on above: Previous reported re sult: Arlene villarreal Edited by: SONDRA on 07/10/24:1444Neutrophilic leukocytosis.Clinical correlation necessary.Sreekanth Zhou M.D. 07/10/24 AMENDED REPORT 07/10/24 1444 PATH REV previously reported as: Arlene villarreal Serum globulin measurementOr dered By: Priscilla Reynaga on 07-09-2024 Globulin (S) [Mass/Vol] 4.4 g/dL High 2.2-4.2 [facility] Serum or plasma alanine chatterjee otransferase (ALT) measurementOrdered By: Priscilla Reynaga on 07-09-2024 ALT [Catalytic activity/Vol] 16 U/L 16-61 [facility] Serum or plasma albumin rosalina urement (mass/volume)Ordered By: Priscilla Reynaga on 07-09-2024 Albumin [Mass/Vol] 2.9 g/dL Low 3.2-5.0 [facility] Serum or plasma alkaline elvis sphatase measurementOrdered By: Priscilla Reynaga on 07-09-2024 ALP [Catalytic activity/Vol] 68 U/L 45-117 [facility] Serum or plasma uric acid me asurement (mass/volume)Ordered By: Yann Ascencio on 07-09-2024 Urate [Mass/Vol] 7.5 mg/dL High 3.5-7.2 [facility] Comment on above: The drugs N-Acetylcy steine and Metamizole may falsely depress this assay. Squamous epithelial cells de tection in urine sediment by light microscopyOrdered By: Priscilla Reynaga on 07-09-2024 Epithelial cells.squamous LM Ql (Urine sed) 0 SEEN /hpf 0-5 [facility] Total proteinOrdered By: Taj Reynaga on 07-09-2024 Protein [Mass/Vol] 7.3 g/dL 6.4-8.2 [facility] Troponin IOrdered By: Yann gandara on 07-09-2024 Troponin I 18 pg/mL 3.0-78.0 [facility] Comment on above: Please Note: New Yudith t Units and Gender Specific Reference Ranges. For more information see Policy Stat Procedure [place] High Sensitivity Troponin (TNIH) and attachments. Troponin I High Sensitivity 18 pg/mL 3.0-78.0 [facility] Comment on above: Please Note: New Yudith t Units and Gender Specific Reference Ranges. For more information see Policy Stat Procedure [place] High Sensitivity Troponin (TNIH) and attachments. Uric Acidon 07-09-2024 URIC 7.5 mg/dL High 3.5-7.2 [facility] Comment on above: Result Comment: The drugs N-Acetylcysteine and Metamizole may falsely depress this assay. Performed By: #### L 500.4050, L503.6005, L300.8000, L100.0100, L501.5425 #### [facility] [address] [place], [place], [address] Urinalysis, Completeon 07-09 CAST,WBC 0-5 SEEN Normal None Seen [facility] Comment on above: Order Comment: COLLE CTOR TO SPECIFY Performed By: #### L 500.4050, L503.6005, L300.8000, L100.0100, L501.5425 #### [facility] [address] [place], [address] CAST,FINE GRAN 0-5 SEEN Normal 0-5 [facility] Comment on above: Order Comment: COLLE CTOR TO SPECIFY Performed By: #### L 500.4050, L503.6005, L300.8000, L100.0100, L501.5425 #### [facility] [address] [place], [address] CAST,HYALINE 5-10 SEEN Normal 0-5 [facility] Comment on above: Order Comment: COLLE CTOR TO SPECIFY Performed By: #### L 500.4050, L503.6005, L300.8000, L100.0100, L501.5425 #### [facility] [address] [place], [place], [facility] EPI,RENAL 0-5 SEEN Normal 0-5 [facility] Comment on above: Order Comment: COLLE CTOR TO SPECIFY Performed By: #### L 500.4050, L503.6005, L300.8000, L100.0100, L501.5425 #### [facility] [address] [place], [address] Mucus Ql (Urine sed) 1+ /hpf Normal [facility] Comment on above: Order Comment: COLLE CTOR TO SPECIFY Performed By: #### L 500.4050, L503.6005, L300.8000, L100.0100, L501.5425 #### [facility] [address] [place], [address] RBC 0-5 SEEN Normal 0-5 [facility] Comment on above: Order Comment: COLLE CTOR TO SPECIFY Performed By: #### L 500.4050, L503.6005, L300.8000, L100.0100, L501.5425 #### [facility] [address] [place], [address] WBC 0-5 SEEN Normal 0-5 [facility] Comment on above: Order Comment: TORI CTOR TO SPECIFY Performed By: #### L 500.4050, L503.6005, L300.8000, L100.0100, L501.5425 #### [facility] [address] [place], [address] BACTERIA 0 SEEN Normal None Seen [facility] Comment on above: Order Comment: TORI CTOR TO SPECIFY Performed By: #### L 500.4050, L503.6005, L300.8000, L100.0100, L501.5425 #### [facility] [address] [place], [address] EPI,SQUAMOUS 0 SEEN Normal 0-5 [facility] Comment on above: Order Comment: TORI CTOR TO SPECIFY Performed By: #### L 500.4050, L503.6005, L300.8000, L100.0100, L501.5425 #### [facility] [address] [place], [address] Urine blood detectionOrdered By: Priscilla Reynaga on 07-09-2024 Urine Occult Blood 10 /ul High Negative [facility] Urine clarityOrdered By: Taj Reynaga on 07-09-2024 Clarity (U) Clear Clear [facility] Urine color determinationOrd ered By: Priscilla Reynaga on 07-09-2024 Color (U) Yellow Yellow [facility] Urine glucose detectionOrder ed By: Priscilla Reynaga on 07-09-2024 Glucose Ql (U) Normal mg/dl Normal [facility] Urine leukocyte esterase det ection by dipstickOrdered By: Priscilla Reynaga on 07-09-2024 Leukocyte esterase Test strip Ql (U) 25 /ul High Negative [facility] Urine pHOrdered By: Priscilla Wynn outmaynor on 07-09-2024 pH (U) 6.0 [pH] 5.0 - 8.0 [facility] Urine sediment bacteria coun t by microscopy (number/high power field)Ordered By: Priscilla Reynaga on 07-09-2024 Bacteria LM.HPF (Urine sed) [#/Area] 0 /[HPF] None Seen [facility] Urine sediment fine granular cast count by microscopy (number/low power field)Ordered By: Priscilla Reynaga on 07-09-2024 Fine Granular Casts LM.LPF (Urine sed) [#/Area] 0-5 SEEN /lpf 0-5 [facility] Urine sediment leukocyte yanira t count by microscopy (number/low power field)Ordered By: Priscilla Reynaga on 07-09-2024 WBC casts LM.LPF (Urine sed) [#/Area] 0-5 SEEN /lpf None Seen [facility] Urine sediment renal epithel ial cell count by microscopy (number/high power field)Ordered By: Priscilla Reynaga on 07-09-2024 Epithelial cells.renal LM.HPF (Urine sed) [#/Area] 0 /[HPF] 0-5 [facility] Urine specific gravity measu rementOrdered By: Priscilla Reynaga on 07-09-2024 Specific gravity (U) [Rel density] 1.020 1.002-1.030 [facility] Urine urobilinogen measureme ntOrdered By: Priscilla Reynaga on 07-09-2024 Urobilinogen Ql (U) 1 mg/dl High Normal [facility] Urobilinogen Ql (U)Ordered B y: Priscilla Reynaga on 07-09-2024 Urobilinogen (U) [Mass/Vol] 1 mg/dL High Normal [facility] Venous Duplex US - Noam Extre mon 07-09-2024 Venous Duplex US - Noam Extrem [facility] [address] [place] [address] Venous Duplex US - Noam Extrem 07/09/24 1014 MR#: [id number] Acct: [id number] Name: REINA SULLIVAN Rep #: [id number] : 1955 69 From: Yann Miller MD [...] Date Dictated: 07/09/24 1014 Date Transcribed: 07/10/24 9496 [address] Upholsterer: Signed Normal [facility] WBC casts LM.LPF (Urine sed) [#/Area]Ordered By: Priscillarobert Reynaga on 07-09-2024 Urine White Blood Cell Casts 0-5 SEEN /lpf None Seen [facility] White blood cell countOrdere d By: Priscilla Ronnell on 07-09-2024 Urine WBC 0-5 SEEN /hpf 0-5 [facility] White blood cell count 0-5 SEEN /hpf 0-5 [facility] CNPNon 06-26-2024 CNPN Telephone ([facility]) REINA SULLIVAN ([id number]) 1955 M Date Time Provider Department 06/26/24 [...] unspecified na*09/30/2022 Left atrial enlargement [I51.7] 09/30/2022 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 *09/30/2022 Migraine [...] Encounter Status:Closed by RODOLFO WERNER on 06/26/24 [facility]ULL[facility] ([id number]) 1955 M Date Time Provider Department 06/25/24 [facility] today, we recorded the following information about you: Florinda Stevenson, JUDSON.ONCOLOGY RN 06/25/2024 7:58 AM Signed Please let patient [...] Halima Sullivan. 06/16/24 telephone encounter routed to [facility] for back, neck, and spine pool again for scheduling consultation with orthopaedic electronic publishing specialist. Felicita Bolden MA 06/25/2024 11:52 AM [...] unspecified na*09/30/2022 Left atrial enlargement [I51.7] 09/30/2022 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 *09/30/2022 Migraine [...] Status:Closed by FELICITA BOLDEN on 06/25/24 Normal [facility] ALBUMIN/CREATININE RATIO, UR INEon 06-22-2024 Albumin DL <= 20 mg/L (U) [Mass/Vol] 223.9 mg/L Normal [facility] Comment on above: Order Comment: Speci men Type: URINE SPECIMENOrdering Facility: [facility] Address: [address] [place] [address] Performed By: #### U ACR ####[facility] LABCLIA [id number] [place] [address] [place] Albumin/Creatinine (U) [Mass ratio] 262 mg/g High <30 [facility] Comment on above: Order Comment: Speci men Type: URINE SPECIMENOrdering Facility: [facility] Address: [address] [place] [address] Result Comment: Adul t Male and Female Nephrotic Criteria: <30 mg/g is considered normal to mildly increased 30-300 mg/g is considered moderately increased >300 mg/g is considered severely increased KDIGO. (2013). KDIGO 2012 Clinical Practice Guideline for the Evaluation and Management of Chronic Kidney Disease. Official Journal of the International Society of Nephrology, 3(1), 1-150. Performed By: #### U ACR ####[facility] LABCLIA [id number] [place] [address] [place] Creatinine (U) [Mass/Vol] 85.6 mg/dL Normal 20.0-300.0 [facility] Comment on above: Order Comment: Speci men Type: URINE SPECIMENOrdering Facility: [facility] Address: [address] [place] [address] Performed By: #### U ACR ####[facility] LABCLIA [id number] [place] [id number] [place] CBC W Auto Differential pane l (Bld)on 06-22-2024 Basophils (Bld) [#/Vol] 0.09 10*3/uL Normal <0.11 [facility] Comment on above: Order Comment: Speci men Type: BLOOD SPECIMENOrdering Facility: [facility] Address: [address] [place] [address] Performed By: #### 5 7021-8 ####[facility] LABCLIA [id number] [place] [address] [place] Basophils/100 WBC (Bld) 0.8 % Normal [facility] Comment on above: Order Comment: Speci men Type: BLOOD SPECIMENOrdering Facility: [facility] Address: [address] [place] [address] Performed By: #### 5 7021-8 ####[facility] LABCLIA [id number] [place] [address] [place] Differential cell count method Nom (Bld) Auto Normal [facility] Comment on above: Order Comment: Speci men Type: BLOOD SPECIMENOrdering Facility: [facility] Address: [address] [place] [address] Performed By: #### 5 7021-8 ####[facility] LABCLIA [id number] [place] [address] [place] Eosinophils (Bld) [#/Vol] 0.07 10*3/uL Normal <0.46 [facility] Comment on above: Order Comment: Speci men Type: BLOOD SPECIMENOrdering Facility: [facility] Address: [address] [place] [address] Performed By: #### 5 7021-8 ####[facility] LABCLIA [id number] [address] [place] Eosinophils/100 WBC (Bld) 0.7 % Normal [facility] Comment on above: Order Comment: Speci men Type: BLOOD SPECIMENOrdering Facility: [facility] Address: [address] [place] [address] Performed By: #### 5 7021-8 ####[facility] LABCLIA [id number] [place] [address] [place] Erythrocyte distribution width (RBC) [Ratio] 13.5 % Normal 11.5-15.0 [facility] Comment on above: Order Comment: Speci men Type: BLOOD SPECIMENOrdering Facility: [facility] Address: [address] [place] [address] Performed By: #### 5 7021-8 ####[facility] LABCLIA [id number] [place] [address] [place] Hematocrit (Bld) [Volume fraction] 45.6 % Normal 39.0-51.0 [facility] Comment on above: Order Comment: Speci men Type: BLOOD SPECIMENOrdering Facility: [facility] Address: [address] [place] [address] Performed By: #### 5 7021-8 ####[facility] LABIA [id number] [place] [address] [place] Hemoglobin (Bld) [Mass/Vol] 14.9 g/dL Normal 13.0-17.0 [facility] Comment on above: Order Comment: Speci men Type: BLOOD SPECIMENOrdering Facility: [facility] Address: [address] [place] [address] Performed By: #### 5 7021-8 ####[facility] LABIA [id number] [place] [address] [place] Immature granulocytes (Bld) [#/Vol] 0.13 10*3/uL High <0.10 [facility] Comment on above: Order Comment: Speci men Type: BLOOD SPECIMENOrdering Facility: [facility] Address: [address] [place] [address] Performed By: #### 5 7021-8 ####[facility] LABCLIA [id number] [place] [address] [place] Immature granulocytes/100 WBC (Bld) 1.2 % Normal [facility] Comment on above: Order Comment: Speci men Type: BLOOD SPECIMENOrdering Facility: [facility] Address: [address] [place] [address] Performed By: #### 5 7021-8 ####[facility] LABCLIA [id number] [place] [address] [place] Lymphocytes (Bld) [#/Vol] 1.87 10*3/uL Normal 1.00-4.00 [facility] Comment on above: Order Comment: Speci men Type: BLOOD SPECIMENOrdering Facility: [facility] Address: [address] [place] [address] Performed By: #### 5 7021-8 ####[facility] LABIA [id number] [place] [address] [place] Lymphocytes/100 WBC (Bld) 17.4 % Normal [facility] Comment on above: Order Comment: Speci men Type: BLOOD SPECIMENOrdering Facility: [facility] Address: [address] [place] [address] Performed By: #### 5 7021-8 ####[facility] LABIA [id number] [place] [address] [place] MCH (RBC) [Entitic mass] 30.8 pg Normal 26.0-34.0 [facility] Comment on above: Order Comment: Speci men Type: BLOOD SPECIMENOrdering Facility: [facility] Address: [address] [place] [address] Performed By: #### 5 7021-8 ####[facility] LABCLIA [id number] [place] [address] [place] MCHC (RBC) [Mass/Vol] 32.7 g/dL Normal 30.5-36.0 [facility] Comment on above: Order Comment: Speci men Type: BLOOD SPECIMENOrdering Facility: [facility] Address: [address] [place] [address] Performed By: #### 5 7021-8 ####[facility] LABCLIA [id number] [place] [address] [place] MCV (RBC) [Entitic vol] 94.2 fL Normal 80.0-100.0 C [facility] Comment on above: Order Comment: Speci men Type: BLOOD SPECIMENOrdering Facility: [facility] Address: [address] [place] [address] Performed By: #### 5 7021-8 ####[facility] LABCLIA [id number] [place] [address] [place] Monocytes (Bld) [#/Vol] 0.96 10*3/uL High <0.87 [facility] Comment on above: Order Comment: Speci men Type: BLOOD SPECIMENOrdering Facility: [facility] Address: [address] [place] [address] Performed By: #### 5 7021-8 ####[facility] LABCLIA [id number] [place] [address] [place] Monocytes/100 WBC (Bld) 8.9 % Normal [facility] Comment on above: Order Comment: Speci men Type: BLOOD SPECIMENOrdering Facility: [facility] Address: [address] [place] [address] Performed By: #### 5 7021-8 ####[facility] LABCLIA [id number] [place] [address] [place] Neutrophils (Bld) [#/Vol] 7.61 10*3/uL High 1.45-7.50 [facility] Comment on above: Order Comment: Speci men Type: BLOOD SPECIMENOrdering Facility: [facility] Address: [address] [place] [address] Performed By: #### 5 7021-8 ####[facility] LABCLIA [id number] [place] [address] [place] Neutrophils/100 WBC (Bld) 71.0 % Normal [facility] Comment on above: Order Comment: Speci men Type: BLOOD SPECIMENOrdering Facility: [facility] Address: [address] [place] [address] Performed By: #### 5 7021-8 ####[facility] LABCLIA [id number] [place] [address] [place] Nucleated RBC (Bld) [#/Vol] 10*3/uL Normal <0.01 [facility] Comment on above: Order Comment: Speci men Type: BLOOD SPECIMENOrdering Facility: [facility] Address: [address] [place] [address] Performed By: #### 5 7021-8 ####[facility] LABCLIA [id number] [place] [address] [place] Nucleated RBC/100 WBC (Bld) [Ratio] 0.0 /100 WBC Normal [facility] Comment on above: Order Comment: Speci men Type: BLOOD SPECIMENOrdering Facility: [facility] Address: [address] [place] [address] Performed By: #### 5 7021-8 ####[facility] LABCLIA [id number] [place] [address] [place] Platelet mean volume (Bld) [Entitic vol] 10.8 fL Normal 9.0-12.7 [facility] Comment on above: Order Comment: Speci men Type: BLOOD SPECIMENOrdering Facility: [facility] Address: [address] [place] [address] Performed By: #### 5 7021-8 ####[facility] LABCLIA [id number] [place] [address] [place] Platelets (Bld) [#/Vol] 422 10*3/uL High 150-400 [facility] Comment on above: Order Comment: Speci men Type: BLOOD SPECIMENOrdering Facility: [facility] Address: [address] [place] [address] Performed By: #### 5 7021-8 ####[facility] LABCLIA [id number] [place] [address] [place] RBC (Bld) [#/Vol] 4.84 10*6/uL Normal 4.20-6.00 [facility] Comment on above: Order Comment: Speci men Type: BLOOD SPECIMENOrdering Facility: [facility] Address: [address] [place] [address] Performed By: #### 5 7021-8 ####[facility] LABCLIA [id number] [place] [address] [place] WBC (Bld) [#/Vol] 10.73 10*3/uL Normal 3.70-11.00 [facility] Comment on above: Order Comment: Speci men Type: BLOOD SPECIMENOrdering Facility: [facility] Address: [address] [place] [address] Performed By: #### 5 7021-8 ####[facility] LABIA [id number] [place] [address] [place] CNOVon 06-22-2024 CNOV Office Visit (FAMPWS ) REINA SULLIVAN ([id number]) 1955 M Date Time Provider Department 06/22/24 1:20 PM FLORINDA STEVENSON [facility] During your visit today, we recorded the following information about you: Temperature Pulse Blood pressure 97.8 degrees 88/minute 118/76 Florinda Stevenson, MOTORIZED SQUAD CAPTAIN.ONCOLOGY RN 06/22/2024 2:00 PM Signed This is a [...] PAST MEDICAL HISTORY Diagnosis Date Atrial fibrillation ([facility]) Dr. 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 Huston TBI (traumatic brain injury) ([facility]) 2 times PAST SURGICAL HISTORY Procedure Laterality [...] complication, without long-term current use of insulin ([facility]) - ICD9: 250.00, ICD10: E11.9 (primary diagnosis) [...] x da (more content not included)... Normal [facility] 06-22-2024 [facility] REINA SULLIVAN ([id number]) 1955 M Date Time Provider Department 06/22/24 ARIC ZAPIEN During your visit today, we recorded the following information about you: Rebecca Dumas RN 06/22/2024 4:39 PM Signed Asking for provider to clarify pt's order for [facility]. Does patient need to see a surgeon? Please advise so that [facility] staff can schedule patient appropriately. BROOKLYN Malone Jacqueline A, MOTORIZED SQUAD CAPTAIN.ONCOLOGY RN 06/22/2024 5:04 PM Signed Yes. An orthopedic electronic publishing specialist. 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 *09/30/2022 Migraine [...] Status:Closed by FELICITA BOLDEN on 06/22/24 Normal [facility] Comprehensive metabolic 2000 panelon 06-22-2024 Albumin [Mass/Vol] 4.2 g/dL Normal 3.9-4.9 [facility] Comment on above: Order Comment: Speci men Type: BLOOD SPECIMENOrdering Facility: [facility] Address: [address] [place] [address] Performed By: #### 2 4323-8, 70750-8, LIPNF, 2276-4 ####[facility] LABCLIA [id number] [place] [address] [place] ALP [Catalytic activity/Vol] 124 U/L High 38-113 [facility] Comment on above: Order Comment: Speci men Type: BLOOD SPECIMENOrdering Facility: [facility] Address: [address] [place] [address] Performed By: #### 2 4323-8, 36926-4, LIPNF, 6-4 ####[facility] LABCLIA [id number] [place] [address] [place] ALT [Catalytic activity/Vol] 19 U/L Normal 10-54 [facility] Comment on above: Order Comment: Speci men Type: BLOOD SPECIMENOrdering Facility: [facility] Address: [address] [place] [address] Performed By: #### 2 4323-8, 53076-1, LIPNF, 2276-4 ####[facility] LABCLIA [id number] [place] [address] [place] Anion gap [Moles/Vol] 15 mmol/L Normal 8-15 [facility] Comment on above: Order Comment: Speci men Type: BLOOD SPECIMENOrdering Facility: [facility] Address: [address] [place] [address] Performed By: #### 2 4323-8, 05017-7, LIPNF, 2276-4 ####[facility] LABIA [id number] [address] [address] [place] AST [Catalytic activity/Vol] 19 U/L Normal 14-40 [facility] Comment on above: Order Comment: Speci men Type: BLOOD SPECIMENOrdering Facility: [facility] Address: [address] [place] [address] Performed By: #### 2 4323-8, 24094-5, LIPNF, 2276-4 ####[facility] LABIA [id number] [place] [address] [place] Bilirubin [Mass/Vol] 0.7 mg/dL Normal 0.2-1.3 [facility] Comment on above: Order Comment: Speci men Type: BLOOD SPECIMENOrdering Facility: [facility] Address: [address] [place] [address] Performed By: #### 2 4323-8, 87077-6, LIPNF, 6-4 ####[facility] LABIA [id number] [place] [address] [place] Calcium [Mass/Vol] 9.2 mg/dL Normal 8.5-10.2 [facility] Comment on above: Order Comment: Speci men Type: BLOOD SPECIMENOrdering Facility: [facility] Address: [address] [place] [address] Performed By: #### 2 4323-8, 96039-2, LIPNF, 2276-4 ####[facility] LABIA [id number] [place] [address] [place] Chloride [Moles/Vol] 102 mmol/L Normal 98-107 [facility] Comment on above: Order Comment: Speci men Type: BLOOD SPECIMENOrdering Facility: [facility] Address: [address] [place] [address] Performed By: #### 2 4323-8, 89326-6, LIPNF, 2276-4 ####[facility] LABCLIA [id number] [place] [address] [place] CO2 [Moles/Vol] 23 mmol/L Normal 22-30 [facility] Comment on above: Order Comment: Speci men Type: BLOOD SPECIMENOrdering Facility: [facility] Address: [address] [place] [address] Performed By: #### 2 4323-8, 57248-1, LIPNF, 6-4 ####[facility] LABCLIA [id number] [place] [address] [place] Creatinine [Mass/Vol] 1.42 mg/dL High 0.73-1.22 [facility] Comment on above: Order Comment: Speci men Type: BLOOD SPECIMENOrdering Facility: [facility] Address: [address] [place] [address] Performed By: #### 2 4323-8, 79886-6, LIPNF, 6-4 ####[facility] LABCLIA [id number] [place] [address] [place] Creatinine and Glomerular filtration rate.predicted panel (S/P/Bld) 54 mL/min/1.73m??? Low >=60 [facility] Comment on above: Order Comment: Speci men Type: BLOOD SPECIMENOrdering Facility: [facility] Address: [address] [place] [address] Result Comment: Tatiana mated Glomerular Filtration Rate [...] actual GFR. Performed By: #### 2 4323-8, 97010-4, LIPNF, 2276-4 ####[facility] LABCLIA [id number] [place] [id number] [place] Glucose [Mass/Vol] 86 mg/dL Normal 74-99 [facility] Comment on above: Order Comment: Speci men Type: BLOOD SPECIMENOrdering Facility: [facility] Address: [address] [place] [address] Result Comment: The [place] Diabetes Association (ADA) provides guidance for cutoff [...] Standards of Medical Care in Diabetes 2016, [place] Diabetes Association. Diabetes Care. 2016.39(Suppl 1). Performed By: #### 2 4323-8, 71102-7, LIPNF, 2276-4 ####[facility] LABIA [id number] [place] [address] [place] Potassium [Moles/Vol] 4.2 mmol/L Normal 3.7-5.1 [facility] Comment on above: Order Comment: Speci men Type: BLOOD SPECIMENOrdering Facility: [facility] Address: [address] [place] [address] Performed By: #### 2 4323-8, 27309-7, LIPNF, 2276-4 ####[facility] LABCLIA [id number] [place] [address] [place] Protein [Mass/Vol] 7.1 g/dL Normal 6.3-8.0 [facility] Comment on above: Order Comment: Speci men Type: BLOOD SPECIMENOrdering Facility: [facility] Address: [address] [place] [address] Performed By: #### 2 4323-8, 05167-1, LIPNF, 2276-4 ####[facility] LABCLIA [id number] [place] [address] [place] Sodium [Moles/Vol] 140 mmol/L Normal 136-144 [facility] Comment on above: Order Comment: Speci men Type: BLOOD SPECIMENOrdering Facility: [facility] Address: [address] [place] [address] Performed By: #### 2 4323-8, 81788-6, LIPNF, 2276-4 ####[facility] LABIA [id number] [place] [address] [place] Urea nitrogen [Mass/Vol] 22 mg/dL Normal - [facility] Comment on above: Order Comment: Speci men Type: BLOOD SPECIMENOrdering Facility: [facility] Address: [address] [place] [address] Performed By: #### 2 4323-8, 70484-7, LIPNF, 2276-4 ####[facility] LABIA [id number] [place] [address] [place] Ferritin SerPl-mCncon 2024 Ferritin [Mass/Vol] 142.0 ng/mL Normal 30.3-565.7 [facility] Comment on above: Order Comment: Speci men Type: BLOOD SPECIMENOrdering Facility: [facility] Address: [address] [place] [address] Performed By: #### 2 4323-8, 95414-7, LIPNF, 2276-4 ####[facility] LABIA [id number] [place] [address] [place] HbA1c (Bld)on 06-22-2024 Average glucose Estimated from glycated hemoglobin (Bld) [Mass/Vol] 126 mg/dL Normal [facility] Comment on above: Order Comment: Speci men Type: BLOOD SPECIMENOrdering Facility: [facility] Address: [address] [place] [address] Result Comment: eAG: (Estimated average glucose) is a calculated value from HgbA1c and is customer contact representative of the average blood glucose level in the last 2-3 month period. Performed By: #### 5 5454-3 ####[facility] LABCLIA [id number] [place] [address] [place] HbA1c (Bld) [Mass fraction] 6.0 % High 4.3-5.6 [facility] Comment on above: Order Comment: Speci men Type: BLOOD SPECIMENOrdering Facility: [facility] Address: [address] [place] [address] Result Comment: Amer [place] Diabetes Association guidelines indicate that patients with HgbA1c in the range 5.7-6.4% are at increased risk for development of diabetes, and intervention by lifestyle modification may be beneficial. HgbA1c greater or equal to 6.5% is considered diagnostic of diabetes. Performed By: #### 5 5454-3 ####[facility] LABCLIA [id number] [place] [address] [place] Iron and Iron binding capaci ty panelon 06-22-2024 Iron [Mass/Vol] 76 ug/dL Normal 41-186 [facility] Comment on above: Order Comment: Speci men Type: BLOOD SPECIMENOrdering Facility: [facility] Address: [address] [place] [address] Performed By: #### 2 4323-8, 17731-3, LIPNF, 2275-4 ####[facility] LABCLIA [id number] [place] [address] [place] Iron binding capacity [Mass/Vol] 345 ug/dL Normal 232-386 [facility] Comment on above: Order Comment: Speci men Type: BLOOD SPECIMENOrdering Facility: [facility] Address: [address] [place] [address] Performed By: #### 2 4323-8, 61428-6, LIPNF, 6-4 ####[facility] LABCLIA [id number] [place] [address] [place] Iron/TIBC [Molar ratio] 22.0 % Normal 15.0-57.0 C [facility] Comment on above: Order Comment: Speci men Type: BLOOD SPECIMENOrdering Facility: [facility] Address: [address] [place] [address] Performed By: #### 2 4323-8, 78177-9, LIPNF, 2276-4 ####[facility] LABCLIA [id number] [place] [address] [place] LIPID PANEL, NONFASTINGon Cholesterol [Mass/Vol] 149 mg/dL Normal <200 [facility] Comment on above: Order Comment: Speci men Type: BLOOD SPECIMENOrdering Facility: [facility] Address: [address] [place] [address] Result Comment: <200 mg/dL, Desirable 200-239 mg/dL, Borderline high >239 mg/dL, High Performed By: #### 2 4323-8, 89372-4, LIPNF, 2276-4 ####[facility] LABCLIA [id number] [place] [address] [place] HDL CHOLESTEROL, NF 41 mg/dL Normal >39 [facility] Comment on above: Order Comment: Speci men Type: BLOOD SPECIMENOrdering Facility: [facility] Address: [address] [place] [address] Result Comment: 40-5 9 mg/dL, Acceptable >59 mg/dL, High: Negative risk factor for coronary heart disease <40 mg/dL, Low: Positive risk factor for coronary heart disease Performed By: #### 2 4323-8, 48766-4, LIPNF, 2276-4 ####[facility] LABCLIA [id number] [place] [address] [place] LDL CHOLESTEROL, NF 88 mg/dL Normal <100 [facility] Comment on above: Order Comment: Speci men Type: BLOOD SPECIMENOrdering Facility: [facility] Address: [address] [place] [address] Result Comment: <100 mg/dL, Optimal 100-129 mg/dL, Near optimal/above optimal 130-159 mg/dL, Borderline high 160-189 mg/dL, High >189 mg/dL, Very high Secondary prevention optimal LDL Cholesterol levels are recommended to be < 70 mg/dL Performed By: #### 2 4323-8, 80874-5, LIPNF, 6-4 ####[facility] LABCLIA [id number] [address] [place] LDL/HDL RATIO, NF 2.15 mg/dL Normal <2.54 [facility] Comment on above: Order Comment: Speci men Type: BLOOD SPECIMENOrdering Facility: [facility] Address: [address] [place] [address] Result Comment: Refe rence: 1. National Cholesterol Education Program ATP III Guideline At-A-Glance Quick Desk Reference: National Heart, Lung, and Blood [place]. National Institutes of Health. 2001: NIH Publication No. 01-3305. 2. An International Atherosclerosis Society position paper: global recommendations for the management of dyslipidemia: executive summary, Atherosclerosis. 2014: 232(2):410-413. Performed By: #### 2 4323-8, 88378-2, LIPNF, 6-4 ####[facility] LABIA [id number] [address] [place] NON HDL CHOL, NF 108 mg/dL Normal <130 [facility] Comment on above: Order Comment: Speci men Type: BLOOD SPECIMENOrdering Facility: [facility] Address: [address] [place] [address] Result Comment: <130 mg/dL, Optimal 130-159 mg/dL, Near optimal/above optimal 160-189 mg/dL, Borderline high 190-219 mg/dL, High >219 mg/dL, Very high Secondary prevention optimal non HDL Cholesterol levels are recommended to be <100 mg/dL Performed By: #### 2 4323-8, 74193-0, LIPNF, 6-4 ####[facility] LABCLIA [id number] [place] [address] [place] T CHOL/HDL RATIO NF 3.63 mg/dL Normal <5.10 [facility] Comment on above: Order Comment: Speci men Type: BLOOD SPECIMENOrdering Facility: [facility] Address: [address] [place] [address] Performed By: #### 2 4323-8, 60847-9, LIPNF, 6-4 ####[facility] LABCLIA [id number] [place] [address] [place] TRIGLYCERIDES, NF 99 mg/dL Normal <150 [facility] Comment on above: Order Comment: Speci men Type: BLOOD SPECIMENOrdering Facility: [facility] Address: [address] [place] [address] Result Comment: <150 mg/dL, Normal 150-199 mg/dL, Borderline high 200-499 mg/dL, High >499 mg/dL, Very high Performed By: #### 2 4323-8, 39965-6, LIPNF, 6-4 ####[facility] LABCLIA [id number] [place] [address] [place] VLDL CHOLESTEROL, NF 20 mg/dL Normal <30 [facility] Comment on above: Order Comment: Speci men Type: BLOOD SPECIMENOrdering Facility: [facility] Address: [address] [place] [address] Performed By: #### 2 4323-8, 92973-6, LIPNF, 2276-4 ####[facility] LABCLIA [id number] [place] [address] [place] Magnesium SerPl-mCncon 06-22 Magnesium [Mass/Vol] 2.2 mg/dL Normal 1.7-2.3 [facility] Comment on above: Order Comment: Speci men Type: BLOOD SPECIMENOrdering Facility: [facility] Address: [address] [place], [place] [address], [place] [address] Performed By: #### 1 9123-9 ####[facility] LABCLIA [id number] [facility] [place] [address] [place] URINALYSIS, REFLEX MICROSCOP ICon 06-22-2024 Bacteria LM.HPF (Urine sed) [#/Area] Negative Negative /HPF [facility] Bilirubin Ql (U) Negative Negative [facility] Clarity (Unsp spec) Clear Clear [facility] Color (U) Yellow Yellow [facility] Epithelial cells LM.HPF (Urine sed) [#/Area] None Seen /HPF [facility] Glucose Test strip (U) [Mass/Vol] Negative Negative [facility] Hemoglobin Ql (U) Negative Negative [facility] Hyaline casts (Urine sed) [#/Area] 4-10 /LPF Abnormal 0 /LPF [facility] Interpretation and review of laboratory results Abnormal [facility] Ketones Ql (U) Negative Negative [facility] Leukocyte esterase Test strip Ql (U) Negative Negative [facility] Nitrite Ql (U) Negative Negative [facility] pH (U) 6.0 [pH] NINF - 8.5 [facility] Protein (U) [Mass/Vol] 2+ Abnormal Negative [facility] RBC LM.HPF (Urine sed) [#/Area] 0-2 /HPF 0-2 /HPF [facility] Specific gravity (U) [Rel density] 1.012 1.005 - 1.030 [facility] Urobilinogen Ql (U) 0.2 EU/dL 0.2-1.0 EU/dL [facility] WBC LM.HPF (Urine sed) [#/Area] 0-5 /HPF 0-5 /HPF [facility] This test was developed and its performance characteristics determined by [facility]'s [facility] Pathology and Laboratory Medicine [place] ([facility]). It has not been cleared or approved by the FDA. -[facility] is regulated under CLIA as qualified to perform high-complexity testing. This test is used for clinical purposes. It should not be regarded as investigational or for research. [facility] Bacteria LM.HPF (Urine sed) [#/Area] Negative Normal Negative [facility] Comment on above: Order Comment: Speci men Type: URINE SPECIMENOrdering Facility: [facility] Address: [address] [place] [address] Performed By: #### L [id number] ####[facility] LABCLIA [id number] [place] [address] [place] Bilirubin Ql (U) Negative Normal Negative [facility] Comment on above: Order Comment: Speci men Type: URINE SPECIMENOrdering Facility: [facility] Address: [address] [place] [address] Performed By: #### L [id number] ####[facility] LABCLIA [id number] [place] [address] [place] Clarity (Unsp spec) Clear Normal Clear [facility] Comment on above: Order Comment: Speci men Type: URINE SPECIMENOrdering Facility: [facility] Address: [address] [place] [address] Performed By: #### L [id number] ####[facility] LABCLIA [id number] [place] [address] [place] Color (U) Yellow Normal Yellow [facility] Comment on above: Order Comment: Speci men Type: URINE SPECIMENOrdering Facility: [facility] Address: [address] [place] [address] Performed By: #### L [id number] ####[facility] LABCLIA [id number] [place] [address] [place] Epithelial cells LM.HPF (Urine sed) [#/Area] None Seen Normal [facility] Comment on above: Order Comment: Speci men Type: URINE SPECIMENOrdering Facility: [facility] Address: [address] [place] [address] Performed By: #### L [id number] ####[facility] LABCLIA [id number] [place] [address] [place] Glucose Test strip (U) [Mass/Vol] Negative Normal Negative [facility] Comment on above: Order Comment: Speci men Type: URINE SPECIMENOrdering Facility: [facility] Address: [address] [place] [address] Performed By: #### L [id number] ####[facility] LABCLIA [id number] [place] [address] [place] Hemoglobin Ql (U) Negative Normal Negative [facility] Comment on above: Order Comment: Speci men Type: URINE SPECIMENOrdering Facility: [facility] Address: [address] [place] [address] Performed By: #### L [id number] ####[facility] LABCLIA [id number] [place] [address] [place] Hyaline casts (Urine sed) [#/Area] 4-10 /LPF Abnormal 0 /LPF [facility] Comment on above: Order Comment: Speci men Type: URINE SPECIMENOrdering Facility: [facility] Address: [address] [place] [address] Performed By: #### L [id number] ####[facility] LABCLIA [id number] [place] [address] [place] Ketones Ql (U) Negative Normal Negative [facility] Comment on above: Order Comment: Speci men Type: URINE SPECIMENOrdering Facility: [facility] Address: [address] [place] [address] Performed By: #### L [id number] ####[facility] LABCLIA [id number] [place] [address] [place] Leukocyte esterase Test strip Ql (U) Negative Normal Negative [facility] Comment on above: Order Comment: Speci men Type: URINE SPECIMENOrdering Facility: [facility] Address: [address] [place] [address] Performed By: #### L [id number] ####[facility] LABCLIA [id number] [place] [address] [place] Nitrite Ql (U) Negative Normal Negative [facility] Comment on above: Order Comment: Speci men Type: URINE SPECIMENOrdering Facility: [facility] Address: [address] [place] [address] Performed By: #### L [id number] ####[facility] LABIA [id number] [place] [address] [place] pH (U) 6.0 [pH] Normal <8.5 [facility] Comment on above: Order Comment: Speci men Type: URINE SPECIMENOrdering Facility: [facility] Address: [address] [place] [address] Performed By: #### L [id number] ####[facility] LABIA [id number] [place] [address] [place] Protein (U) [Mass/Vol] 2+ Abnormal Negative Cl [facility] Comment on above: Order Comment: Speci men Type: URINE SPECIMENOrdering Facility: [facility] Address: [address] [place] [address] Performed By: #### L [id number] ####[facility] LABIA [id number] [place] [address] [place] RBC LM.HPF (Urine sed) [#/Area] 0-2 /HPF Normal 0-2 /HPF [facility] Comment on above: Order Comment: Speci men Type: URINE SPECIMENOrdering Facility: [facility] Address: [address] [place] [address] Performed By: #### L [id number] ####[facility] LABIA [id number] [place] [address] [place] Specific gravity (U) [Rel density] 1.012 Normal 1.005-1.030 [facility] Comment on above: Order Comment: Speci men Type: URINE SPECIMENOrdering Facility: [facility] Address: [address] [place] [address] Performed By: #### L [id number] ####[facility] LABIA [id number] [place] [address] [place] Urobilinogen Ql (U) 0.2 EU/dL Normal 0.2-1.0 EU/dL [facility] Comment on above: Order Comment: Speci men Type: URINE SPECIMENOrdering Facility: [facility] Address: [address] [place] [address] Performed By: #### L [id number] ####[facility] LABIA [id number] [place] [address] [place] WBC LM.HPF (Urine sed) [#/Area] 0-5 /HPF Normal 0-5 /HPF [facility] Comment on above: Order Comment: Speci men Type: URINE SPECIMENOrdering Facility: [facility] Address: [address] [place] [address] Performed By: #### L [id number] ####[facility] LABIA [id number] [place] [address] [place] XR LUMBAR 3V [...] spine are presented. FINDINGS: There are five puo-bjb-eieleky lumbar vertebrae. L1 vertebral body compression deformity/age indeterminate fracture is demonstrated, involving the superior endplate.. Questionable L2-3 mild disc space narrowing. There is moderate osteophyte formation, with facet arthrosis in the lower lumbar spine. Kissing spine seen on lateral view. Others: There are vascular calcifications. IMPRESSION L1 vertebral body compression deformity/age indeterminate fracture. Lumbar spine degenerative changes as described above. Spring Upholsterer: JOSIAH Transcribe Date/Time: Jun 22 2024 2:54P Dictated by : BRIAN WILKINSON MD This examination was interpreted and the report reviewed and electronically signed by: BRIAN WILKINSON MD on Jun 22 2024 2:55PM EST [id number] Normal [facility] XR Lumbar spine 3 Viewson * * [...] spine are presented. FINDINGS: There are five qqm-uca-beankzr lumbar vertebrae. L1 vertebral body compression deformity/age indeterminate fracture is demonstrated, involving the superior endplate.. Questionable L2-3 mild disc space narrowing. There is moderate osteophyte formation, with facet arthrosis in the lower lumbar spine. Kissing spine seen on lateral view. Others: There are vascular calcifications. IMPRESSION L1 vertebral body compression deformity/age indeterminate fracture. Lumbar spine degenerative changes as described above. Spring Upholsterer: JOSIAH Transcribe Date/Time: Jun 22 2024 2:54P Dictated by : BRIAN WILKINSON MD This examination was interpreted and the report reviewed and electronically signed by: BRIAN WILKINSON MD on Jun 22 2024 2:55PM EST DIVISION OF RADIOLOGY Provider, [facility] - 06/22/2024 * * *Final Report* [...] spine are presented. FINDINGS: There are five rnt-vrc-fycmphz lumbar vertebrae. L1 vertebral body compression deformity/age indeterminate fracture is demonstrated, involving the superior endplate.. Questionable L2-3 mild disc space narrowing. There is moderate osteophyte formation, with facet arthrosis in the lower lumbar spine. Kissing spine seen on lateral view. Others: There are vascular calcifications. IMPRESSION L1 vertebral body compression deformity/age indeterminate fracture. Lumbar spine degenerative changes as described above. Spring Upholsterer: PSCB Transcribe Date/Time: Jun 22 2024 2:54P Dictated by : BRIAN WILKINSON MD This examination was interpreted and the report reviewed and electronically signed by: BRIAN WILKINSON MD on Jun 22 2024 2:55PM EST [facility] Radiology Study observation (narrative) Kaitlin belle [facility] XR Lumbar spine 3 ViewsOrder ed By: Ccf Provider on 06-22-2024 [facility] CNPNon 06-16-2024 KVNGN Telephone (FAMJuanWS) REINA SULLIVAN ([id number]) 1955 M Date Time Provider Department 06/16/24 [facility] During your visit today, we recorded the following information about you: Aric Zapien MD 06/16/2024 8:48 AM Signed Schedule to see me at [facility] in person on 06/21/24. Please make sure they are aware appt they scheduled is at that office and not [place] Aric Zapien MD 06/19/2024 10:50 AM Signed Please call before (I suspect was put in wrong place) Felicita Bolden MA 06/19/2024 11:21 AM Signed Please call pt and ask if pt knows he is scheduled at [facility] Florinda Stevenson, MOTORIZED SQUAD CAPTAIN.ONCOLOGY RN 06/22/2024 3:37 PM Signed Please let patient know that he has a lumbar 1 compression fracture of the endplate. I am going to send him to a spine surgeon to review. Please facilitate primaryscheduling Felicita Bolden MA 06/22/2024 4:29 PM Signed Patient notified of results and transferred to senior statistical programmer Mecca Summers 06/22/2024 4:43 PM Signed Mel BRYANT unauthorized to schedule for this department. Patient notified that JARRETT routed referral to the appropriate department and their facility will contact patient for scheduling. Patient requests all future medical information and appointment scheduling be disclosed to ex-spouse, Flor Sullivan, only. Mecca Summers 06/25/2024 10:57 AM Signed Please contact patient to assist with scheduling consultation with orthopaedic electronic publishing specialist per 06/22/24 telephone encounter. 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 *09/30/2022 Migraine headache [G43.909] 09/30/2022 Need for Streptococcus pneumoniae vaccination [*09/30/2022 Neoplasm of uncertain behavior of skin [D48.5] 09/30/2022 Noncompliance with treatment [Z91.199] 09/30/2022 Other polyp of sinus [J33.8] 09/30/2022 Pulmonary hypertension (HCC) [I27.20] 09/30/2022 Syncope and collapse [R55] 09/30/2022 09/30/2022 Undiagnosed cardiac murmurs [R01.1] 09/30/2022 09/30/2022 History of skull fracture [Z87.81] 09/30/2022 Encounter Status:Closed by RENETTAMalik FELICITA on 06/22/24 [facility] 03-21-2024 CNPN Telephone (ENDOSO) REINA SULLIVAN ([id number]) 1955 M Date Time Provider Department 03/21/24 [facility] ENDOSO During your visit today, we recorded the following information about you: Vanna Flores 03/21/2024 3:31 PM Signed [facility] states that their records show patient has [...] unspecified na*09/30/2022 Left atrial enlargement [I51.7] 09/30/2022 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 *09/30/2022 Migraine [...] Encounter Status:Closed by VANNA FLORES on 03/23/24 [facility] CNCOon 11-24-2023 CNCO Letter Text [facility] CNPNon 11-24-2023 CNPN Telephone (SOPHIEWST) REINA SULLIVAN ([id number]) 1955 M Date Time Provider Department 11/24/23 HARVEY HAZEL During your visit today, we recorded the following information about you: Harvey Hazel MSW 11/24/2023 1:04 PM Signed Nikkie called and spoke with Halima, patient ex in regards to service assistance options in the community. Halima notes that she helps patient " to a certain extent." Halima and Nikkie spoke about [facility] Older Adult Resource Directory. Halima asks that Nikkie mail patient this guide for him to review and see what services are available in the community. Nikkie will also attach [employer] Older Adult support program and [facility] information. Allergies As of Date: 11/24/2023 [...] unspecified na*09/30/2022 Left atrial enlargement [I51.7] 09/30/2022 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 *09/30/2022 Migraine [...] Encounter Status:Closed by HARVEY HAZEL on 11/24/23 [facility] CNOVon 11-22-2023 CNOV Office Visit (FAMPWS ) REINA SULLIVAN ([id number]) 1955 Date Time Provider Department 11/22/23 3:40 PM [facility] During your visit today, we recorded the [...] daily No seizures. 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) 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 Non-rheumatic tricuspid [...] stable AF, no concerns 09/08/2015 Dr. James [place]: cardiac cath: no disease 09/08/2015 cardiac catheterization [facility] Dr. James: - primary rhythm atrial fibrillation [...] Lymph 1.00 - 4.00 k/uL 1.57 2.35 Mason% % 9.8 11.3 Abs Mason <0.87 k/uL 0.66 0.98 (H) Eosin% % [...] long-term cur (more content not included)... [facility] Absolute lymphocyte countOrd ered By: Rakel Hodgson on 06-23-2023 Lymphocytes Auto (Unsp spec) [#/Vol] 2.02 10*3/uL 0.83-4.51 [facility] Automated lymphocyte count a s percentage of total leukocytesOrdered By: Rakel Hodgson on 06-23-2023 Lymphocytes/100 WBC Auto (Unsp spec) 28.9 % 19-41 [facility] Basophil percentageOrdered B y: Rakel Hodgson on 06-23-2023 Basophils/100 WBC (Bld) 0.7 % 0-1 [facility] Chloride [Moles/Vol] 104 mmol/L 98-107 [facility] Eosinophils/100 WBC (Bld) 1.0 % 0-5 [facility] Glucose [Mass/Vol] 99 mg/dL 74-[facility] Hem[facility] (Bld) [Mass/Vol] 15.8 g/dL 13.0-16.5 [facility] Monocytes/100 WBC (Bld) 11.7 % 0-10 [facility] Neutrophils (Bld) [#/Vol] 4.0 10*3/uL 2.0-7.7 [facility] Neutrophils/100 WBC (Bld) 57.1 % 47-70 [facility] Potassium [Moles/Vol] 4.2 mmol/L 3.5-5.1 [facility] Sodium [Moles/Vol] 139 mmol/L 136-145 [facility] WBC (Bld) [#/Vol] 7.0 10*3/uL 4.4-11.0 [facility] Determination of erythrocyte mean corpuscular volume (MCV)Ordered By: Rakel Hodgson on 06-23-2023 MCV (RBC) [Entitic vol] 93.6 fL 80-94 [facility] Erythrocyte distribution wid th ratioOrdered By: Rakel Hodgson on 06-23-2023 Erythrocyte distribution width (RBC) [Ratio] 13.0 % 11.6-14.6 [facility] Erythrocyte distribution wid th standard deviationOrdered By: Rakel Hodgson on 06-23-2023 Erythrocyte distribution width (RBC) [Entitic vol] 44.3 fL 35.1-43.9 [facility] Hematocrit Auto (Bld) [Volum e fraction]Ordered By: Rakel Hodgson on 06-23-2023 Hematocrit (Bld) [Volume fraction] 48.6 % 40-54 [facility] Immature granulocytes/100 WB C Auto (Bld)Ordered By: Rakel Hodgson on 06-23-2023 Immature granulocytes/100 WBC (Bld) 0.600 % 0.0-0.9 [facility] Comment on above: IG% - Immature Granu locytes (promyelocytes, myelocytes and metamyelocytes) > 1% indicates that a LEFT SHIFT is Present. Laboratory - Chemistry and C hemistry - challengeOrdered By: Rakel Hodgson on 06-23-2023 CO2 [Moles/Vol] 31.0 mmol/L 21.0-32.0 [facility] Urea nitrogen/Creatinine [Mass ratio] 13.2 mg/mg 10-20 [facility] Laboratory - Hematology and Cell countsOrdered By: Rakel Hodgson on 06-23-2023 MCH (RBC) [Entitic mass] 30.4 pg 27.0-32.0 [facility] MCHC (RBC) [Mass/Vol] 32.5 g/dL 32-36 [facility] Nucleated RBC/100 WBC (Bld) [Ratio] 0 % 0-5 [facility] Platelets (Bld) [#/Vol] 219 10*3/uL 150-450 [facility] No Panel InformationOrdered By: Rakel Hodgson on 06-23-2023 Estimated GFR (MDRD) Amer 56 mL/min >60 [facility] Comment on above: GFR Calc Estimated GFR (MDRD) Non-Af Amer 47 mL/min >60 [facility] Comment on above: Non- GFR Calc Platelet mean volume Hank-Ec ker (Bld) [Entitic vol]Ordered By: Rakel Hodgson on 06-23-2023 Platelet mean volume (Bld) [Entitic vol] 11.4 fL 6.2-12.0 [facility] RBC Auto (Bld) [#/Vol]Ordere d By: Rakel Hdogson on 06-23-2023 RBC (Bld) [#/Vol] 5.19 10*6/uL 4.6-6.2 [facility] Serum or plasma calcium rosalina urement (mass/volume)Ordered By: Rakel Hodgson on 06-23-2023 Calcium [Mass/Vol] 9.1 mg/dL 8.5-10.1 [facility] Serum or plasma creatinine m easurement (mass/volume)Ordered By: Rakel Hodgson on 06-23-2023 Creatinine [Mass/Vol] 1.59 mg/dL 0.70-1.30 [facility] Comment on above: The validity of the calculated GFR & GFRAA in patients over 70 years has not been determined. Clinical correlation is essential. Serum or plasma urea nitroge n measurement (mass/volume)Ordered By: Rakel Hodgson on 06-23-2023 Urea nitrogen [Mass/Vol] 21 mg/dL 7-18 [facility] Thin prep Papanicolaou smear with manual screeningOrdered By: Rakel Hodgson on 06-23-2023 Thin prep Papanicolaou smear with manual screening 4 5-15 [facility] STREP A MOLECULAR (POC)on Procedural Control Valid Clecounts include [facility] beds at the [facility] Strep A (POCT) Negative Negative [facility] CBC W Auto Differential pane l (Bld)on 09-30-2022 Basophils (Bld) [#/Vol] 0.04 10*3/uL <0.11 k/uL [facility] Basophils/100 WBC (Bld) 0.6 % [facility] Differential cell count method Nom (Bld) Auto [facility] Eosinophils (Bld) [#/Vol] 0.07 10*3/uL <0.46 k/uL [facility] Eosinophils/100 WBC (Bld) 1.0 % [facility] Erythrocyte distribution width (RBC) [Ratio] 13.6 % 11.5 - 15.0 % [facility] Hematocrit (Bld) [Volume fraction] 43.7 % 39.0 - 51.0 % [facility] Hemoglobin (Bld) [Mass/Vol] 14.2 g/dL 13.0 - 17.0 g/dL [facility] Immature granulocytes (Bld) [#/Vol] <0.10 k/uL [facility] Immature granulocytes/100 WBC (Bld) 0.3 % [facility] Lymphocytes (Bld) [#/Vol] 1.57 10*3/uL 1.00 - 4.00 k/uL [facility] Lymphocytes/100 WBC (Bld) 23.3 % [facility] MCH (RBC) [Entitic mass] 31.1 pg 26.0 - 34.0 pg [facility] MCHC (RBC) [Mass/Vol] 32.5 g/dL 30.5 - 36.0 g/dL [facility] MCV (RBC) [Entitic vol] 95.8 fL 80.0 - 100.0 fL [facility] Monocytes (Bld) [#/Vol] 0.66 10*3/uL <0.87 k/uL [facility] Monocytes/100 WBC (Bld) 9.8 % [facility] Neutrophils (Bld) [#/Vol] 4.37 10*3/uL 1.45 - 7.50 k/uL [facility] Neutrophils/100 WBC (Bld) 65.0 % [facility] Nucleated RBC (Bld) [#/Vol] <0.01 k/uL [facility] Nucleated RBC/100 WBC (Bld) [Ratio] 0.0 /100 WBC [facility] Platelet mean volume (Bld) [Entitic vol] 11.4 fL 9.0 - 12.7 fL [facility] Platelets (Bld) [#/Vol] 246 10*3/uL 150 - 400 k/uL [facility] RBC (Bld) [#/Vol] 4.56 10*6/uL 4.20 - 6.0 0 m/uL [facility] WBC (Bld) [#/Vol] 6.73 10*3/uL 3.70 - 11. 00 k/uL [facility] HbA1c (Bld)on 09-30-2022 Average glucose Estimated from glycated hemoglobin (Bld) [Mass/Vol] 131 mg/dL [facility] HbA1c (Bld) [Mass fraction] 6.2 % High 4.3 - 5.6 % [facility] VALPROIC A/DEPAKENEon 2022 Valproate [Mass/Vol] 70.5 ug/mL 50.0 - 100.0 ug/mL [facility] No Panel Informationon 04-26 [facility] Absolute lymphocyte counton 03-06-2022 Lymphocytes Auto (Unsp spec) [#/Vol] 2.57 10*3/uL 0.83-4.51 [facility] Work Phone: Basophil percentageon 2021 Basophils/100 WBC (Bld) 0.5 % 0-1 [facility] Work Phone: Chloride [Moles/Vol] 104 mmol/L 98-107 [facility] Work Phone: Eosinophils/100 WBC (Bld) 1.8 % 0-5 [facility] Work Phone: Glucose [Mass/Vol] 112 mg/dL 74-106 [facility] Work Phone: Comment on above: Fasting Glucose resu lt from 100 to 125 mg/dL suggests IMPAIRED HOMEOSTASIS per A.D.A. criteria. Neutrophils (Bld) [#/Vol] 4.0 10*3/uL 2.0-7.7 [facility] Work Phone: Neutrophils/100 WBC (Bld) 52.2 % 47-70 [facility] Work Phone: Potassium [Moles/Vol] 3.4 mmol/L 3.5-5.1 [facility] Work Phone: Sodium [Moles/Vol] 142 mmol/L 136-145 [facility] Work Phone: WBC (Bld) [#/Vol] 7.7 10*3/uL 4.4-11.0 [facility] Work Phone: Blood erythrocytes count (nu mber/volume)on 03-06-2022 RBC (Bld) [#/Vol] 4.57 10*6/uL 4.6-6.2 [facility] Work Phone: Blood hemoglobin measurement (mass/volume)on 03-06-2022 Hemoglobin (Bld) [Mass/Vol] 14.7 g/dL 13.0-16.5 [facility] Work Phone: Blood lymphocytes/100 leukoc yteson 03-06-2022 Lymphocytes/100 WBC (Bld) 33.2 % 19-41 [facility] Work Phone: Blood monocytes/100 leukocyt eson 03-06-2022 Monocytes/100 WBC (Bld) 11.8 % 0-10 [facility] Work Phone: Blood platelet mean volumeon 03-06-2022 Platelet mean volume (Bld) [Entitic vol] 10.3 fL 6.2-12.0 [facility] Work Phone: Determination of erythrocyte mean corpuscular volume (MCV)on 03-06-2022 MCV (RBC) [Entitic vol] 93.7 fL 80-94 [facility] Work Phone: Hematocrit Auto (Bld) [Volum e fraction]on 03-06-2022 Hematocrit (Bld) [Volume fraction] 42.8 % 40-54 [facility] Work Phone: Laboratory - Chemistry and C hemistry - challengeon 03-06-2022 CO2 [Moles/Vol] 28.0 mmol/L 21.0-32.0 [facility] Work Phone: Urea nitrogen/Creatinine [Mass ratio] 19.0 mg/mg 10-20 [facility] Work Phone: Laboratory - Hematology and Cell countson 03-06-2022 Erythrocyte distribution width (RBC) [Entitic vol] 43.5 fL 35.1-43.9 [facility] Work Phone: Erythrocyte distribution width (RBC) [Ratio] 12.7 % 11.6-14.6 [facility] Work Phone: Immature granulocytes/100 WBC (Bld) 0.500 % 0.0-0.9 [facility] Work Phone: Comment on above: IG% - Immature Granu locytes (promyelocytes, myelocytes and metamyelocytes) > 1% indicates that a LEFT SHIFT is Present. MCH (RBC) [Entitic mass] 32.2 pg 27.0-32.0 [facility] Work Phone: Nucleated RBC/100 WBC (Bld) [Ratio] 0 % 0-5 [facility] Work Phone: MCHC Auto (RBC) [Mass/Vol]on 03-06-2022 MCHC (RBC) [Mass/Vol] 34.3 g/dL 32-36 [facility] Work Phone: No Panel Informationon 03-06 Estimated Creatinine Clearance Calc 70.76 ml/min [facility] Work Phone: Estimated GFR (MDRD) Amer 77 mL/min >60 [facility] Work Phone: Comment on above: GFR Calc Estimated GFR (MDRD) Non-Af Amer 64 mL/min >60 [facility] Work Phone: Comment on above: Non- GFR Calc Platelets bldon 03-06-2022 Platelets (Bld) [#/Vol] 230 10*3/uL 150-450 [facility] Work Phone: Serum or plasma calcium rosalina urement (mass/volume)on 03-06-2022 Calcium [Mass/Vol] 9.7 mg/dL 8.5-10.1 [facility] Work Phone: Serum or plasma creatinine m easurement (mass/volume)on 03-06-2022 Creatinine [Mass/Vol] 1.21 mg/dL 0.70-1.30 [facility] Work Phone: Comment on above: The validity of the calculated GFR & GFRAA in patients over 70 years has not been determined. Clinical correlation is essential. Serum or plasma urea nitroge n measurement (mass/volume)on 03-06-2022 Urea nitrogen [Mass/Vol] 23 mg/dL 718 [facility] Work Phone: Thin prep Papanicolaou smear with manual screeningon 03-06-2022 Thin prep Papanicolaou smear with manual screening 10-11 [facility] Work Phone: No Panel InformationOrdered By: Ccf Provider on 03-12-2021 [facility] No Panel Informationon 03-12 Radiology Study observation (narrative) [facility] XR Ankle - right AP and Late [...] Impression: 1. No acute fracture or dislocation. Spring Upholsterer: JOSIAH Transcribe Date/Time: Mar 12 2021 3:19P Dictated by : COURTNEY MART MD This examination was interpreted and the report reviewed and electronically signed by: COURTNEY MART MD on Mar 12 2021 3:22PM [facility] DIVISION OF RADIOLOGY Provider, [facility] - 03/12/2021 * * *Final [...] Impression: 1. No acute fracture or dislocation. Spring Upholsterer: JOSIAH Transcribe Date/Time: Mar 12 2021 3:19P Dictated by : COURTNEY MART MD This examination was interpreted and the report reviewed and electronically signed by: COURTNEY MART MD on Mar 12 2021 3:22PM EST [facility] XR Foot - right AP and [...] Impression: 1. No acute fracture or dislocation. Spring Upholsterer: [facility] Transcribe Date/Time: Mar 12 2021 3:19P Dictated by : COURTNEY MART MD This examination was interpreted and the report reviewed and electronically signed by: COURTNEY MART MD on Mar 12 2021 3:22PM [facility] DIVISION OF RADIOLOGY Provider, [facility] - 03/12/2021 * * *Final [...] Impression: 1. No acute fracture or dislocation. Spring Upholsterer: PSCB Transcribe Date/Time: Mar 12 2021 3:19P Dictated by : COURTNEY MART MD This examination was interpreted and the report reviewed and electronically signed by: COURTNEY MART MD on Mar 12 2021 3:22PM EST [facility] VISUAL FIELD 30-2 OU (BOTH E YES) [facility] Vital Signs Date Time Vital Sign Value Performing Clinician Facility 07-11-2024 17:10-0500 Body temperature 97.7 [degF] Dr. Aric Zapien MD Work Phone: [phone] [place] [address] 07-11-2024 17:10-0500 Diastolic blood pressure 88 mm[Hg] Dr. Aric Zapien MD Work Phone: 1([phone])803-779673 [place] [address] 07-11-2024 17:10-0500 Heart rate 100 /min Dr. Aric Zapien MD Work Phone: 5([phone] [place] [address] 07-11-2024 17:10-0500 Respiratory rate 16 /min Dr. Aric Zapien MD Work Phone: 1([phone] [place] [address] 07-11-2024 17:10-0500 SaO2% (BldA) [Mass fraction] 97 % Dr. Aric Zapien MD Work Phone: 8([phone] [place] [address] 07-11-2024 17:10-0500 Systolic blood pressure 127 mm[Hg] Dr. Aric Zapien MD Work Phone: 1([phone] [place] [address] 07-10-2024 10:00-0500 Inhaled oxygen flow rate 2 L/min Dr. Aric Zapien MD Work Phone: 3([phone] [place] [address] 07-09-2024 15:34-0500 Body height 182.[address] Aric Zapien MD Work Phone: 6([phone] [place] [address] 07-09-2024 15:34-0500 Body weight 97.[address] Aric Zapien MD Work Phone: 7([phone] [place] [address] 07-09-2024 11:44-0500 Body mass index (BMI) [Ratio] 29.2 kg/m2 Dr. Aric Zapien MD Work Phone: [facility] 06-22-2024 13:29-0500 Body temperature 97.81 [degF] Florinda Suppan MOTORIZED SQUAD CAPTAIN.ONCOLOGY RN Work Phone: [facility] 06-22-2024 13:29-0500 Diastolic blood pressure 76 mm[Hg] Florinda Suppan [employer]OR[employer]ED SQUAD CAPTAIN.ONCOLOGY RN Work Phone: [facility] 06-22-2024 13:29-0500 Heart rate 88 /min Florinda Suppan [employer]ORIZED SQUAD CAPTAIN.ONCOLOGY RN Work Phone: [facility] 06-22-2024 13:29-0500 SaO2% (BldA) [Mass fraction] 99 % Florinda Suppan MOTORIZED SQUAD CAPTAIN.ONCOLOGY RN Work Phone: [facility] 06-22-2024 13:29-0500 Systolic blood pressure 118 mm[Hg] Florinda Suppan MOTORIZED SQUAD CAPTAIN.ONCOLOGY RN Work Phone: [facility] 11-22-2023 15:27-0400 Body mass index (BMI) [Ratio] 30.65 kg/m2 NA Max PA-C Work Phone: [facility] 11-22-2023 15:27-0400 Body weight 102.51 kg NA Max PA-C Work Phone: [facility] 11-22-2023 15:27-0400 Diastolic blood pressure 80 mm[Hg] NA Max PA-C Work Phone: [facility] 11-22-2023 15:27-0400 Heart rate 85 /min NA Max PA-C Work Phone: [facility] 11-22-2023 15:27-0400 Respiratory rate 15 /min NA Max PA-C Work Phone: [facility] 11-22-2023 15:27-0400 SaO2% (BldA) [Mass fraction] 96 % NA Max PA-C Work Phone: [facility] 11-22-2023 15:27-0400 Systolic blood pressure 128 mm[Hg] CYNTHIA Max PA-C Work Phone: [facility] 06-23-2023 15:04-0500 Body height 187.[address] Aric Zapien Work Phone: [facility] 06-23-2023 15:04-0500 Body mass index (BMI) [Ratio] 28.5 kg/m2 Dr. Aric Zapien Work Phone: [facility] 06-23-2023 15:04-0500 Body weight 100.[address] Aric Zapien Work Phone: [facility] 06-23-2023 15:04-0500 Diastolic blood pressure 60 mm[Hg] Dr. Aric Zapien Work Phone: [facility] 06-23-2023 15:04-0500 Heart rate 67 /min Dr. Aric Zapien Work Phone: [facility] 06-23-2023 15:04-0500 Respiratory rate 18 /min Dr. Aric Zapien Work Phone: [facility] 06-23-2023 15:04-0500 SaO2% (BldA) [Mass fraction] 97 % Dr. Aric Zapien Work Phone: [facility] 06-23-2023 15:04-0500 Systolic blood pressure 80 mm[Hg] Dr. Aric Zapien Work Phone: [facility] 12-07-2022 13:46-0400 Body temperature 98.4 [degF] Krislyn Aberegg PA Work Phone: [facility] 12-07-2022 13:46-0400 Body weight 101.7 kg Krislyn Aberegg PA Work Phone: [facility] 12-07-2022 13:46-0400 Diastolic blood pressure 76 mm[Hg] Krislyn Aberegg PA Work Phone: [facility] 12-07-2022 13:46-0400 Heart rate 60 /min Krislyn Aberegg PA Work Phone: [facility] 12-07-2022 13:46-0400 Respiratory rate 18 /min Krislyn Aberegg PA Work Phone: [facility] 12-07-2022 13:46-0400 SaO2% (BldA) [Mass fraction] 96 % Krislyn Aberegg PA Work Phone: [facility] 12-07-2022 13:46-0400 Systolic blood pressure 112 mm[Hg] Krislyn Aberegg PA Work Phone: [facility] 09-30-2022 13:13-0400 Body height 182.9 cm Aric Zapien MD Work Phone: [facility] 09-30-2022 13:13-0400 Body weight 103.87 kg Aric Zapien MD Work Phone: [facility] 09-30-2022 13:13-0400 Diastolic blood pressure 100 mm[Hg] Aric Zapien MD Work Phone: [facility] 09-30-2022 13:13-0400 Heart rate 88 /min Aric Zapien MD Work Phone: [facility] 09-30-2022 13:13-0400 SaO2% (BldA) [Mass fraction] 97 % Aric Zapien MD Work Phone: [facility] 09-30-2022 13:13-0400 Systolic blood pressure 152 mm[Hg] Aric Zapien MD Work Phone: [facility] 04-01-2022 10:36-0400 Body weight 99.79 kg Aric Zapien MD Work Phone: [facility] 04-01-2022 10:36-0400 Diastolic blood pressure 62 mm[Hg] Aric Zapien MD Work Phone: [facility] 04-01-2022 10:36-0400 Heart rate 97 /min Aric Zapien MD Work Phone: [facility] 04-01-2022 10:36-0400 SaO2% (BldA) [Mass fraction] 100 % Aric Zapien MD Work Phone: [facility] 04-01-2022 10:36-0400 Systolic blood pressure 102 mm[Hg] Aric Zapien MD Work Phone: [facility] 03-09-2022 15:09-0400 Body height 184 cm NA Mxa PA-C Work Phone: [facility] 03-09-2022 15:09-0400 Body weight 101.15 kg NA Max PA-C Work Phone: [facility] 03-09-2022 15:09-0400 Diastolic blood pressure 74 mm[Hg] NA Max PA-C Work Phone: [facility] 03-09-2022 15:09-0400 Heart rate 82 /min NA Max PA-C Work Phone: [facility] 03-09-2022 15:09-0400 Respiratory rate 12 /min NA Max PA-C Work Phone: [facility] 03-09-2022 15:09-0400 SaO2% (BldA) [Mass fraction] 98 % NA Max PA-C Work Phone: [facility] 03-09-2022 15:09-0400 Systolic blood pressure 104 mm[Hg] NA Max PA-C Work Phone: [facility] 03-08-2022 15:33-0400 Body weight 99.79 kg Aric Huston Jr., MD Work Phone: [facility] 03-08-2022 15:33-0400 Diastolic blood pressure 72 mm[Hg] Aric Huston Jr., MD Work Phone: [facility] 03-08-2022 15:33-0400 Heart rate 93 /min Aric Huston Jr., MD Work Phone: [facility] 03-08-2022 15:33-0400 Respiratory rate 12 /min Aric Huston Jr., MD Work Phone: [facility] 03-08-2022 15:33-0400 SaO2% (BldA) [Mass fraction] 98 % Aric Hsuton Jr., MD Work Phone: [facility] 03-08-2022 15:33-0400 Systolic blood pressure 100 mm[Hg] Aric Huston Jr., MD Work Phone: [facility] 03-06-2022 12:58-0400 Diastolic blood pressure 90 mm[Hg] [facility] Work Phone: 03-06-2022 12:58-0400 Heart rate 80 /min [facility] Work Phone: 03-06-2022 12:58-0400 Respiratory rate 16 /min [facility] Work Phone: 03-06-2022 12:58-0400 SaO2% (BldA) [Mass fraction] 98 % [facility] Work Phone: 03-06-2022 12:58-0400 Systolic blood pressure 116 mm[Hg] [facility] Work Phone: 03-06-2022 10:03-0400 Body height 187.96 cm [facility] Work Phone: 03-06-2022 10:03-0400 Body mass index (BMI) [Ratio] 28.9 kg/m2 [facility] Work Phone: 03-06-2022 10:03-0400 Body temperature 97.1 [degF] [facility] Work Phone: 03-06-2022 10:03-0400 Body weight 102.1 kg [facility] Work Phone: 09-24-2021 15:24-0400 Body weight 102.51 kg Aric Zapien MD Work Phone: [facility] 09-24-2021 15:24-0400 Diastolic blood pressure 82 mm[Hg] Aric Zapien MD Work Phone: [facility] 09-24-2021 15:24-0400 Heart rate 88 /min Aric Zapien MD Work Phone: [facility] 09-24-2021 15:24-0400 Systolic blood pressure 122 mm[Hg] Aric Zapien MD Work Phone: [facility] Encounters Encounter Date Encounter Type Care Provider Facility Start: 01-02-2025 ambulatory Jigna ALMENDAREZ Facili ty:[facility] Start: 11-27-2024 ambulatory Jigna ALMENDAREZ Facili ty:[facility] Start: 10-31-2024 ambulatory Jigna Brantley OLS Facili ty:[facility] Start: 10-25-2024 End: 10-25-2024 Telephone encounter Aric Zapien MD Work Phone: [facility] Comment on above: Letter (No show #2) Start: 10-23-2024 ambulatory [facility] Facility:[facility] Start: 09-26-2024 End: 09-26-[address] Aric Zapien MD Work Phone: [facility] Work Phone: Start: 09-26-2024 End: 09-26-[address] Jigna Brantley MD -[facility] Start: 09-26-2024 End: 09-26-2024 [facility] Start: 08-27-2024 End: 08-27-[address] Aric Zapien MD Work Phone: [facility] Work Phone: Start: 08-27-2024 End: 08-27-[address] Jigna Brantley MD -[facility] Start: 08-27-2024 End: 08-27-2024 ambulatory Jigna ALMENDAREZ Facility:[facility] Start: 07-23-2024 ambulatory [facility] Facility:[facility] Start: 07-23-[address] Jigna Brantley MD -[facility] Start: 07-16-2024 End: 08-07-2024 Telephone encounter Aric Zapien MD Work Phone: [facility] Comment on above: Patient Update Start: 07-16-2024 [facility] Start: 07-16-[address] Jigna Brantley MD -[facility] Start: 07-12-2024 ambulatory Jigna Garcia ty:[facility] Start: 07-12-[address] Jigna Brantley MD -[facility] Start: 07-11-2024 Non-patient / Non-visit Dr. Yann stevens [facility] Work Phone: Start: 07-10-2024 Non-patient / Non-visit Dr. Yann Katz [facility] Work Phone: Start: 07-10-2024 ambulatory [facility] Start: 07-10-2024 Non-patient / Non-visit Dr. Cynthia Irby MD -[facility] Start: 07-09-2024 End: 07-11-2024 Evaluation and management of inpatient Dr. Yann Ascencio DO [facility] Work Phone: Start: 07-09-2024 ambulatory [facility] Start: 07-09-2024 Non-patient / Non-visit Dr. Yann Katz [facility] Work Phone: Start: 06-26-2024 End: 06-26-2024 Telephone encounter Damaris Sotelo MD Work Phone: [facility] Start: 06-25-2024 End: 06-25-2024 Telephone encounter Florinda Stevenson APRN.ONCOLOGY RN Work Phone: [facility] Comment on above: Results Start: 06-22-2024 End: 06-22-2024 Telephone encounter [facility] MD [facility] Comment on above: Patient Question Start: 06-22-2024 End: 06-22-2024 Office outpatient visit 15 minutes Florinda Stevenson APRN.ONCOLOGY RN Work Phone: [facility] Comment on above: Type 2 diabetes jorge itus without complication, without long- term current use of insulin (HCC) (Primary Dx); Fall, initial encounter; Screening for lipid disorders; Acute low back pain without sciatica, unspecified back pain laterality Start: 06-22-2024 End: 06-22-2024 ambulatory ARIC ZAPIEN Facility:[facility] Start: 06-16-2024 End: 06-22-2024 Telephone encounter Aric Zapien MD Work Phone: [facility] Comment on above: Patient Update Start: 06-13-2024 End: 06-14-2024 Refill Aric Zapien MD Work Phone: [address] [place] [address] Comment on above: Refill Request Start: 05-28-2024 End: 05-28-2024 ambulatory Mayuri Perez MA [facility] Start: 05-28-2024 End: 05-28-2024 Patient encounter procedure Mayuri Perez MA [facility] Comment on above: Population Health Na vigation Outreach ([facility] OUTREACH ) Start: 04-18-2024 End: 04-18-2024 ambulatory Edward Pleitez [facility] Work Phone: [facility] Start: 04-18-2024 End: 04-18-2024 Patient encounter procedure Edward Pleitez [facility] Work Phone: [facility] Start: 03-21-2024 End: 03-23-2024 Telephone encounter Lu Fish APRN.ONCOLOGY RN Work Phone: Endocrinology Start: 03-07-2024 End: 03-07-2024 ambulatory Jordy Hernandez MA [facility] Start: 03-07-2024 End: 03-07-2024 Patient encounter procedure Jordy Hernandez MA [facility] Comment on above: Population Health Na vigation Outreach ([facility] Start: 12-15-2023 ambulatory Moshe Friedman [facility] Start: 12-15-2023 Patient encounter procedure Moshe Friedman MA [facility] Comment on above: Population Health Na vigation Outreach (ANTHEM-AWV) Start: 11-24-2023 Telephone encounter Harvey HASSAN [facility] Start: 11-22-2023 End: 11-22-2023 ambulatory RENUKA MAX Facility:[facility] Start: 11-22-2023 End: 11-22-2023 Patient encounter procedure Jaison Max PA-C Work Phone: [facility] Comment on above: 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 Aric Zapien Work Phone: [facility] Work Phone: Start: 06-23-2023 End: 06-23-[address] Aric Zapien Work Phone: [facility] Work Phone: Start: 12-07-2022 End: 12-07-2022 Patient encounter procedure Sarah MARIE Work Phone: [facility] Comment on above: Sore throat (Primary Dx); URI, acute Start: 09-30-2022 End: 05-04-2023 Patient encounter procedure Aric Zapien MD Work Phone: [facility] Comment on above: Seizures (HCC) (Prim [...] 06-18-2022 Refill Aric Zapien MD Work Phone: [facility] Comment on above: Refill Request Start: 06-11-2022 ambulatory Leanna Benavidez RN [facility] Comment on above: DESI CEE RN ( Medication Adherence review per request of payer) Start: 04-27-2022 Telephone encounter Aric Huston MD Work Phone: Neurology Comment on above: Results Start: 04-26-2022 End: 04-26-2022 Subsequent hospital visit by physician Mri [facility] (I-Stat/1.5t) Work Phone: Radiology Comment on [...] Telephone encounter Jaison Max PA-C Work Phone: [facility] Comment on above: Results Start: 04-02-2022 Telephone encounter Aric Huston MD Work Phone: Neurology Comment on above: Orders Start: 04-01-2022 End: 04-01-2022 Patient encounter procedure Aric Zapien MD Work Phone: [facility] Comment on above: Permanent atrial fib rillation (HCC) (Primary Dx); Seizures (HCC); Primary pulmonary HTN (HCC); Primary hypertension; Mixed hyperlipidemia; Type 2 diabetes mellitus without complication, without long-term current use of insulin (HCC); History of thyroiditis; Enlarged thoracic aorta (HCC); Screening for AAA (abdominal aortic aneurysm) Start: 03-15-2022 Telephone encounter Jaison Leonidas Max PA-C Work Phone: [facility] Comment on above: Orders Start: 03-09-2022 End: 03-09-2022 Patient encounter procedure Jaison Max PA-C Work Phone: [facility] [place] Comment on above: Medicare annual [facility] visit, initial (Primary Dx); 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 [...] 03-06-2022 End: 03-06-2022 [facility] Start: 03-04-2022 Refill Aric Zapien MD Work Phone: [facility] Comment on above: Refill Request Start: 02-23-2022 ambulatory Joceline Waldron RN [facility] Comment on above: ACM COLEMAN RN ( SPC/SUPD rev. per request [facility]) Start: 09-24-2021 End: 09-24-2021 Patient encounter procedure Aric Zapien MD Work Phone: [facility] Comment on above: Permanent atrial [...] Zapien MD Work Phone: [facility] [place] Start: 03-12-2021 End: 03-12-2021 Subsequent hospital visit by physician X[facility] Work Phone: Radiology Comment on above: [...] Gutierrez.RESULTS READ BACK BY . Start: 11-22-2023 [employer] COVI D-19 VACCINE (2022- SEASON) AGE 12+ YR M Leonidas Max PA-C Work Phone: Start: 11-22-2023 Adult depression scr eening assessment [facility] [place] Work Phone: Start: 12-07-2022 STREP A MOLECULAR (POC) Mikki Rodriguez APRN.ONCOLOGY RN Work Phone: Start: 04-26-2022 Mra head w/o [...] RSV Vaccine (1 - 1-dose 75+ series) [facility] Start: 09-24-2026 PROSTATE CANCER SCREENING DISCUSSION PROSTATE CANCER SCREENING DISCUSSION [facility] Start: 09-24-2026 Prostate specific antigen measurement Prostate Cancer Screening Discussion [facility] Start: 06-22-2025 Annual PCP Team Chronic Disease Visit Annual PCP Team Chronic Disease Visit [facility] Start: 06-22-2025 BP Controlled (<130/80) BP Controlled (<130/80) [facility] in Start: 06-22-2025 Complete blood count Hemoglobin/Hematocrit [facility] Start: 06-22-2025 Creatinine measurement Serum Creatinine [facility] Start: 06-22-2025 Hepatitis B screening Urine Albumin:Creatinine Ratio [facility] Start: 06-22-2025 Hepatitis B surface antibody level LDL Cholesterol [facility] Start: 01-28-2025 Influenza vaccination Influenza Vaccine (Season Ended) [facility] Start: 12-20-2024 Hemoglobin A1c measurement HbA1C [facility] Start: 11-21-2024 Annual PCP Team Chronic Disease Visit Annual PCP Team Chronic Disease Visit [facility] Start: 11-21-2024 Depression Screening Depression Screening [facility] Start: 11-21-2024 Diabetic foot examination Diabetic Foot Exam [facility] Start: 07-12-2024 End: 07-12-2024 Patient encounter procedure 07/12/2024 1:20 PM EST Office Visit [facility] [address] [place] [address] Florinda Stevenson, [employer].ONCOLOGY RN [address] [place] [address] 2 week follow up [facility] Comment on above: 2 week follow up Start: 07-11-2024 Patient discharge [facility] Start: 07-10-2024 Care planning and problem solving actions [facility] Start: 07-10-2024 [facility] Start: 07-10-2024 End: 07-10-2024 Patient encounter procedure [facility] [employer] Comment on above: Lumbar x-ray needs order L1 Fx Start: 07-10-2024 Oxygen therapy [facility] Start: 07-09-2024 Care planning and problem solving actions [facility] Start: 07-09-2024 End: 07-09-2024 Following clinical pathway protocol [facility] Start: 07-09-2024 Assessment of risk of venous thromboembolism [facility] Start: 07-09-2024 Care regimes management [facility] Start: 07-09-2024 Insertion of catheter into peripheral vein [facility] Start: 07-09-2024 Measuring intake and output [facility] Start: 07-09-2024 Notification of physician [facility] Start: 07-09-2024 Providing care according to standard [facility] Start: 07-09-2024 Provision of activity privileges [facility] Start: 07-09-2024 Referral to occupational therapist [facility] Start: 07-09-2024 Referral to service [facility] Start: 07-09-2024 End: 07-09-2024 [facility] Start: 07-09-2024 Admission procedure [facility] Start: 07-09-2024 Patient referral to dietitian [facility] Start: 06-22-2024 End: 09-21-2024 CBC W Auto Differential panel - Blood [facility] Comment on above: Expected: 06/22/2024, Expires: Start: 06-22-2024 End: 09-21-2024 Comprehensive metabolic 2000 panel - Serum or Plasma [facility] Comment on above: Expected: 06/22/2024, Expires: Start: 06-22-2024 End: 09-21-2024 Ferritin [Mass/volume] in Serum or Plasma [facility] Comment on above: Expected: 06/22/2024, Expires: Start: 06-22-2024 End: 09-21-2024 Hemoglobin A1c in Blood [facility] [employer] Work Phone: Comment on above: Expected: 06/22/2024, Expires: Start: 06-22-2024 End: 09-21-2024 Iron and Iron binding capacity panel - Serum or Plasma [facility] Comment on above: Expected: 06/22/2024, Expires: Start: 06-22-2024 End: 09-21-2024 LIPID PANEL, NONFASTING [facility] Comment on above: Expected: 06/22/2024, Expires: Start: 06-22-2024 End: 09-21-2024 Magnesium [Mass/volume] in Serum or Plasma [facility] Comment on above: Expected: 06/22/2024, Expires: Start: 06-22-2024 End: 09-21-2024 Microalbumin/Creatinine [Mass Ratio] in Urine [facility] Comment on above: Expected: 06/22/2024, Expires: Start: 06-21-2024 End: 06-21-2024 Patient encounter procedure 06/21/2024 11:00 AM EST Office Visit [facility] [address] [place] [address] Aric Zapien MD [address] [place] [address] FALL ON [facility] Comment on above: FALL ON Start: 05-30-2024 Advance Directive Discussion Advance Directive Discussion [facility] Start: 05-25-2024 End: 05-25-2024 Patient encounter procedure [facility] Comment on above: 6 month follow up 6 month follow up - HTN focus Jodie Start: 05-24-2024 Annual PCP Team Chronic Disease Visit Annual PCP Team Chronic Disease Visit [facility] Start: 05-24-2024 BP Controlled (<130/80) BP Controlled (<130/80) [facility] Start: 05-24-2024 Complete blood count Hemoglobin/Hematocrit [facility] Start: 05-24-2024 Creatinine measurement Serum Creatinine [facility] Start: 05-24-2024 Hepatitis B screening Urine Albumin:Creatinine Ratio [facility] Start: 05-24-2024 Hepatitis B surface antibody level LDL Cholesterol [facility] Start: 02-22-2024 End: 05-23-2024 Hemoglobin A1c in Blood HEMOGLOBIN A1C Lab Routine Type 2 diabetes mellitus without complication, without long-term current use of insulin (HCC) Expected: 02/22/2024, Expires: 05/23/2024 [facility] Comment on above: Expected: 02/22/2024, Expires: Start: 01-29-2024 Covid-19 Vaccine ( season) Covid-19 Vaccine ( season) [facility] Start: 01-29-2024 Influenza vaccination Influenza Vaccine (#1) [facility] Start: 12-08-2023 BP CONTROLLED (<130/80) BP CONTROLLED (<130/80) [facility] Start: 11-23-2023 Hemoglobin A1c measurement HbA1C [facility] Start: 11-22-2023 End: 11-22-2023 Patient encounter procedure 11/22/2023 3:40 PM EDT Office Visit [facility] [address] [place], [place] [id number] Jaison Max PA-C [address] [place], [place] [id number] 6 mth f/u [facility] Comment on above: 6 mth f/u Start: 11-22-2023 End: 02-21-2024 CBC W Auto Differential panel - Blood COMPLETE BLOOD COUNT AND DIFFERENTIAL Lab Routine Seizures (HCC) Mitral valve insufficiency, unspecified etiology Non-rheumatic tricuspid valve insufficiency Left atrial enlargement 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 Pulmonary hypertension (HCC) Enlarged thoracic aorta (HCC) Primary hypertension Chronic renal failure (CRF), stage 3a (HCC) Type 2 diabetes mellitus without complication, without long-term current use of insulin (HCC) Adjustment disorder with mixed emotional features Anxiety state Expected: 11/22/2023, Expires: 02/21/2024 [facility] Work Phone: Comment on above: Expected: 11/22/2023, Expires: Start: 11-22-2023 End: 02-21-2024 Comprehensive metabolic 2000 panel - Serum or Plasma COMPREHENSIVE METABOLIC PANEL Lab Routine Seizures (HCC) Mitral valve insufficiency, unspecified etiology Non-rheumatic tricuspid valve insufficiency Left atrial enlargement 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 (HCC) 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 Pulmonary hypertension (HCC) Enlarged thoracic aorta (HCC) Primary hypertension Mixed hyperlipidemia Chronic renal failure (CRF), stage 3a (HCC) Type 2 diabetes mellitus without complication, without long-term current use of insulin (HCC) Adjustment disorder with mixed emotional features Anxiety state Expected: 11/22/2023, Expires: 02/21/2024 [facility] Comment on above: Expected: 11/22/2023, Expires: Start: 11-22-2023 End: 02-21-2024 Lipid 1996 panel - Serum or Plasma LIPID PANEL BASIC Lab Routine Mitral valve insufficiency, unspecified etiology Non-rheumatic tricuspid valve insufficiency Left atrial enlargement 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 Pulmonary hypertension (HCC) Enlarged thoracic aorta (HCC) Primary hypertension Mixed hyperlipidemia Type 2 diabetes mellitus without complication, without long-term current use of insulin (HCC) Expected: 11/22/2023, Expires: 02/21/2024 [facility] Comment on above: Expected: 11/22/2023, Expires: Start: 10-15-2023 ANNUAL PCP TEAM CHRONIC DISEASE VISIT ANNUAL PCP TEAM CHRONIC DISEASE VISIT [facility] Start: 10-01-2023 3 comp foot exam completed DIABETIC FOOT EXAM [facility] Start: 10-01-2023 ANNUAL PCP TEAM CHRONIC DISEASE VISIT ANNUAL PCP TEAM CHRONIC DISEASE VISIT [facility] Start: 10-01-2023 Diabetic foot examination Diabetic Foot Exam [facility] Start: 10-01-2023 Urine microalbumin profile [facility] Comment on above: Postponed from 01/04/1974 (Declined at t his time) Start: 09-23-2023 Covid-19 Vaccine () Covid-19 Vaccine () [facility] Start: 05-30-2023 Advance Directive Discussion Advance Directive Discussion [facility] Start: 05-30-2023 Behavioral Health Screening Behavioral Health Screening [facility] Start: 04-12-2023 Glaucoma screening Dilated Retinal Exam [facility] Start: 04-12-2023 Hepatitis C antibody, confirmatory test DILATED RETINAL EXAM [facility] Start: 04-02-2023 Hemoglobin A1c/Hemoglobin.total in Blood HBA1C [facility] Start: 04-01-2023 ANNUAL PCP TEAM CHRONIC DISEASE VISIT ANNUAL PCP TEAM CHRONIC DISEASE VISIT [facility] Start: 04-01-2023 BP CONTROLLED (<130/80) BP CONTROLLED (<130/80) [facility] Start: 04-01-2023 Hepatitis B screening URINE ALBUMIN:CREATININE RATIO [facility] Start: 04-01-2023 Hepatitis B surface antibody level LDL CHOLESTEROL [facility] Start: 03-09-2023 ANNUAL PCP TEAM CHRONIC DISEASE VISIT ANNUAL PCP TEAM CHRONIC DISEASE VISIT [facility] Start: 03-09-2023 BP CONTROLLED (<130/80) BP CONTROLLED (<130/80) [facility] Start: 03-08-2023 BP CONTROLLED (<130/80) BP CONTROLLED (<130/80) [facility] Start: 01-28-2023 Covid-19 Vaccine () Covid-19 Vaccine () [facility] Start: 01-28-2023 Influenza vaccination [facility] Start: 12-07-2022 End: 12-21-2022 Influenza virus A and B RNA and SARS-CoV-2 (COVID-19) N gene panel - Respiratory specimen by CRYSTAL with probe detection [facility] Work Phone: Comment on above: Expected: 12/07/2022, Expires: 3 Start: 09-30-2022 End: 11-30-2022 Comprehensive metabolic 2000 panel - Serum or Plasma [facility] Work Phone: Comment on above: Expected: 09/30/2022, Expires: 3 Start: 09-30-2022 End: 11-30-2022 T4/FTI/T4U [facility] Work Phone: Comment on above: Expected: 09/30/2022, Expires: 3 Start: 09-30-2022 End: 11-30-2022 Thyrotropin [Units/volume] in Serum or Plasma [facility] Work Phone: Comment on above: Expected: 09/30/2022, Expires: 3 Start: 09-30-2022 End: 11-30-2022 Triiodothyronine (T3) [Mass/volume] in Serum or Plasma [facility] Work Phone: Comment on above: Expected: 09/30/2022, Expires: 3 Start: 09-29-2022 Hemoglobin A1c/Hemoglobin.total in Blood HBA1C [facility] Start: 09-24-2022 ANNUAL PCP TEAM CHRONIC DISEASE VISIT ANNUAL PCP TEAM CHRONIC DISEASE VISIT [facility] Start: 06-09-2022 End: 08-09-2022 Hemoglobin A1c in Blood HGB A1C Lab Routine Hyperglycemia Expected: 06/09/2022, Expires: 08/09/2022 [facility] Work Phone: Comment on above: Expected: 06/09/2022, Expires: 3 Start: 05-30-2022 ADVANCE DIRECTIVE DISCUSSION ADVANCE DIRECTIVE DISCUSSION [facility] Start: 05-30-2022 DEPRESSION ASSESSMENT DEPRESSION ASSESSMENT [facility] Start: 04-14-2022 3 comp foot exam completed DIABETIC FOOT EXAM [facility] Start: 04-09-2022 End: 06-09-2022 Valproate [Mass/volume] in Serum or Plasma VALPROIC A/DEPAKENE Lab Routine Nonintractable epilepsy without status epilepticus, unspecified epilepsy type (HCC) Expected: 04/09/2022, Expires: 06/09/2022 [facility] Work Phone: Comment on above: Expected: 04/09/2022, Expires: 3 Start: 04-03-2022 End: 06-03-2022 Basic metabolic 2000 panel - Serum or Plasma BASIC METABOLIC PNL Lab Routine Elevated serum creatinine Expected: 04/03/2022, Expires: 06/03/2022 [facility] Work Phone: Comment on above: Expected: 04/03/2022, Expires: 3 Start: 04-01-2022 End: 06-01-2022 LIPID PANEL, NONFASTING [facility] Work Phone: Comment on above: Expected: 04/01/2022, Expires: 3 Start: 04-01-2022 End: 06-01-2022 Thyrotropin [Units/volume] in Serum or Plasma [facility] Work Phone: Comment on above: Expected: 04/01/2022, Expires: 3 Start: 03-25-2022 ANNUAL PCP TEAM CHRONIC DISEASE VISIT ANNUAL PCP TEAM CHRONIC DISEASE VISIT [facility] Start: 03-25-2022 BP CONTROLLED (<130/80) BP CONTROLLED (<130/80) [facility] Start: 03-25-2022 Hepatitis B surface antibody level LDL CHOLESTEROL [facility] Start: 03-09-2022 End: 05-09-2022 ALBUMIN/CREAT RATIO RND UR ALBUMIN/CREAT RATIO RND UR Lab Routine Hyperglycemia Expected: 03/09/2022, Expires: 05/09/2022 [facility] Work Phone: Comment on above: Expected: 03/09/2022, Expires: 2 Start: 03-09-2022 End: 05-09-2022 Hepatitis C virus Ab [Presence] in Serum HEP C AB IA W/CONF SCRN Lab Routine Encounter for hepatitis C screening test for low risk patient Expected: 03/09/2022, Expires: 05/09/2022 [facility] Work Phone: Comment on above: Expected: 03/09/2022, Expires: 2 Start: 03-08-2022 End: 05-08-2022 CBC W Auto Differential panel - Blood CBC + DIFF Lab Routine 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 status epilepticus, unspecified epilepsy type (HCC) Expected: 03/08/2022, Expires: 05/08/2022 [facility] Work Phone: Comment on above: Expected: 03/08/2022, Expires: 2 Start: 03-08-2022 End: 05-08-2022 Comprehensive metabolic 2000 panel - Serum or Plasma COMP METABOLIC PANEL Lab Routine 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 status epilepticus, unspecified epilepsy type (HCC) Expected: 03/08/2022, Expires: 05/08/2022 [facility] Work Phone: Comment on above: Expected: 03/08/2022, Expires: 2 Start: 03-08-2022 End: 05-08-2022 Valproate [Mass/volume] in Serum or Plasma VALPROIC A/DEPAKENE Lab Routine 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 status epilepticus, unspecified epilepsy type (HCC) Expected: 03/08/2022, Expires: 05/08/2022 [facility] Work Phone: Comment on above: Expected: 03/08/2022, Expires: 2 Start: 01-28-2022 Influenza vaccination INFLUENZA (#1) [facility] Start: 2022 ADVANCE DIRECTIVE DISCUSSION ADVANCE DIRECTIVE DISCUSSION [facility] Start: 09-24-2021 End: 11-24-2021 ALBUMIN/CREAT RATIO RND UR ALBUMIN/CREAT RATIO RND UR Lab Routine Type 2 diabetes mellitus without complication, without long-term current use of insulin (HCC) Expected: 09/24/2021, Expires: 11/24/2021 [facility] Work Phone: Comment on above: Expected: 09/24/2021, Expires: 2 Start: 09-24-2021 End: 11-24-2021 CBC W Auto Differential panel - Blood CBC + DIFF Lab Routine Type 2 diabetes mellitus without complication, without long-term current use of insulin (HCC) Expected: 09/24/2021, Expires: 11/24/2021 [facility] Work Phone: Comment on above: Expected: 09/24/2021, Expires: 2 Start: 09-24-2021 End: 11-24-2021 Comprehensive metabolic 2000 panel - Serum or Plasma COMP METABOLIC PANEL Lab Routine Type 2 diabetes mellitus without complication, without long-term current use of insulin (HCC) Expected: 09/24/2021, Expires: 11/24/2021 [facility] Work Phone: Comment on above: Expected: 09/24/2021, Expires: 2 Start: 09-24-2021 End: 11-24-2021 Hemoglobin A1c/Hemoglobin.total in Blood HGB A1C Lab Routine Type 2 diabetes mellitus without complication, without long-term current use of insulin (HCC) Expected: 09/24/2021, Expires: 11/24/2021 [facility] Work Phone: Comment on above: Expected: 09/24/2021, Expires: 2 Start: 09-24-2021 End: 11-24-2021 Hepatitis C virus Ab [Presence] in Serum HEP C AB IA W/CONF SCRN Lab Routine Need for hepatitis C screening test Expected: 09/24/2021, Expires: 11/24/2021 [facility] Work Phone: Comment on above: Expected: 09/24/2021, Expires: 2 Start: 09-24-2021 End: 11-24-2021 HIV 1+2 Ab [Presence] in Serum or Plasma by Immunoassay HIV 1 2 COMBO(AG/AB),WITH REFLEX TO DIFFERENTIATION Lab Routine Screening for HIV (human immunodeficiency virus) Expected: 09/24/2021, Expires: 11/24/2021 [facility] Work Phone: Comment on above: Expected: 09/24/2021, Expires: 2 Start: 09-24-2021 End: 11-24-2021 LIPID PANEL BASIC LIPID PANEL BASIC Lab Routine Type 2 diabetes mellitus without complication, without long-term current use of insulin (HCC) Expected: 09/24/2021, Expires: 11/24/2021 [facility] Work Phone: Comment on above: Expected: 09/24/2021, Expires: 2 Start: 09-24-2021 End: 11-24-2021 VALPROIC A/DEPAKENE VALPROIC A/DEPAKENE Lab Routine Seizures (HCC) Expected: 09/24/2021, Expires: 11/24/2021 [facility] Work Phone: Comment on above: Expected: 09/24/2021, Expires: 2 Start: 09-23-2021 Hemoglobin A1c/Hemoglobin.total in Blood HBA1C [facility] Start: 09-08-2021 End: 11-08-2021 ALBUMIN/CREAT RATIO RND UR ALBUMIN/CREAT RATIO RND UR Lab Routine Type 2 diabetes mellitus without complication, without long-term current use of insulin (HCC) Expected: 09/08/2021, Expires: 11/08/2021 [facility] Work Phone: Comment on above: Expected: 09/08/2021, Expires: 2 Start: 09-08-2021 End: 11-08-2021 Hemoglobin A1c/Hemoglobin.total in Blood HGB A1C Lab Routine Type 2 diabetes mellitus without complication, without long-term current use of insulin (HCC) Expected: 09/08/2021, Expires: 11/08/2021 [facility] Work Phone: Comment on above: Expected: 09/08/2021, Expires: 2 Start: 09-08-2021 End: 11-08-2021 SCHEDULE LAB TESTING SCHEDULE LAB TESTING Lab Routine Expected: 09/08/2021, Expires: 11/08/2021 [facility] Work Phone: Comment on above: Expected: 09/08/2021, Expires: 2 Start: 07-14-2021 COVID-19 VACCINE (3 - Booster for Moderna series) COVID-19 VACCINE (3 - Booster for Moderna series) [facility] Start: 05-30-2021 DEPRESSION ASSESSMENT DEPRESSION ASSESSMENT [facility] Start: 04-08-2021 COVID-19 VACCINE (3 - Booster for Moderna series) COVID-19 VACCINE (3 - Booster for Moderna series) [facility] Start: 04-08-2021 COVID-19 VACCINE (3 - Moderna series) COVID-19 VACCINE (3 - Moderna series) [facility] Start: 07-23-2020 PROSTATE CANCER SCREENING DISCUSSION PROSTATE CANCER SCREENING DISCUSSION [facility] Start: 03-01-2019 PNEUMOCOCCAL: 65+ (2 - PCV) PNEUMOCOCCAL: 65+ (2 - PCV) [facility] Start: 03-02-2017 Adult depression screening assessment DEPRESSION SCREENING [facility] Start: 2017 Hepatitis B Vaccine (1 of 3 - Risk 3-dose series) Hepatitis B Vaccine (1 of 3 - Risk 3-dose series) [facility] Start: 2017 RSV Vaccine (1 - 1-dose 60+ series) RSV Vaccine (1 - 1-dose 60+ series) [facility] Start: 2002 COLOGUARD (FIT-DNA) COLOGUARD (FIT-DNA) [facility] Start: 2002 Colonoscopy COLONOSCOPY [facility] Start: 2002 COLORECTAL CANCER SCREENING COLORECTAL CANCER SCREENING [facility] Start: [address] COLONOGRAPHY [facility] Start: 2002 FECAL OCCULT BLOOD FECAL OCCULT BLOOD [facility] Start: 2002 Screening for malignant neoplasm of colon [facility] Start: 2002 SIGMOIDOSCOPY SIGMOIDOSCOPY [facility] Start: 01-04-1976 Urine microalbumin profile [facility] Start: 1975 BP CONTROLLED (<130/80) BP CONTROLLED (<130/80) [facility] Start: 1975 HEPATITIS C SCREENING HEPATITIS C SCREENING [facility] Start: 1975 HIV SCREENING HIV SCREENING [facility] Start: 1967 3 comp foot exam completed DIABETIC FOOT EXAM [facility] Start: 1967 Hepatitis B screening URINE ALBUMIN:CREATININE RATIO [facility] Start: 1967 Hepatitis C antibody, confirmatory test DILATED RETINAL EXAM [facility] Start: 1962 COVID-19 VACCINE (1) COVID-19 VACCINE (1) [facility] Start: 1957 ABDOMINAL AORTIC ANEURYSM SCREENING ABDOMINAL AORTIC ANEURYSM SCREENING [facility] Start: 1957 Abdominal aortic aneurysm screening Abdominal Aortic Aneurysm Screening [facility] COLOGUARD COLOGUARD Lab Ro utine Screening for colon cancer Ordered: 09/24/2021 [facility] Work Phone: Comment on above: Ordered: 09/24/2021 COLOGUARD COLOGUARD Lab Ro utine Screening for colon cancer Ordered: 09/30/2022 [facility] Work Phone: Comment on above: Ordered: 09/30/2022 COLOGUARD COLOGUARD Lab Ro utine Screening for colon cancer Ordered: 11/22/2023 [facility] Comment on above: Ordered: 11/22/2023 End: 03-10-2023 Echocardiography ECHO Cardiology Routine 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 (HCC) Non-rheumatic tricuspid valve insufficiency Mitral valve insufficiency, unspecified etiology Primary pulmonary HTN (HCC) Enlarged thoracic aorta (HCC) 1 Occurrences starting 03/10/2022 until 03/10/2023 [facility] Work Phone: Comment on above: 1 Occurrences starting 03/10/2022 until 03/10/2023 End: 03-08-2023 EPIL EEG ROUTINE EPIL EEG ROUTINE NEUROLOGY Routine 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 status epilepticus, unspecified epilepsy type (HCC) 1 Occurrences starting 03/08/2022 until 03/08/2023 [facility] Work Phone: Comment on above: 1 Occurrences starting 03/08/2022 until 03/08/2023 End: 05-12-2023 Mra head w/o contrst material MRA BRAIN WO IVCON Radiology Routine Other symptoms and signs involving the nervous system 1 Occurrences starting 04/12/2022 until 05/12/2023 [facility] Work Phone: Comment on above: 1 Occurrences starting 04/12/2022 until 05/12/2023 End: 05-12-2023 Mra neck w/o contrst material MRA CAROTID WO IVCON Radiology Routine Other symptoms and signs involving the nervous system 1 Occurrences starting 04/12/2022 until 05/12/2023 [facility] Work Phone: Comment on above: 1 Occurrences starting 04/12/2022 until 05/12/2023 End: 04-07-2023 Mri brain brain stem w/o contrast material MRI BRAIN WO IVCON Radiology Routine 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 status epilepticus, unspecified epilepsy type (HCC) 1 Occurrences starting 03/08/2022 until 04/07/2023 [facility] Work Phone: Comment on above: 1 Occurrences starting 03/08/2022 until 04/07/2023 Patient Education ED, Migraine (Classical ) [facility] Work Phone: Patient referral [facility] Work Phone: P[employer] COVI D-19 BIVALENT BOOSTER VACCINE, AGE 12+ YR [employer] COVID-19 BIVALENT BOOSTER VACCINE, AGE 12+ YR Immunization/Injection Routine Need for COVID-19 vaccine Ordered: 03/09/2022 [facility] Work Phone: Comment on above: Ordered: 03/09/2022 End: 10-01-2023 PVR LEG NOAM VAS LAB PVR LEG [facility] Vascular Lab Routine Peripheral vascular disease (HCC) 1 Occurrences starting 09/30/2022 until 10/01/2023 [facility] Work Phone: Comment on above: 1 Occurrences starting 09/30/2022 until 10/01/2023 End: 12-21-2024 US Abdominal Aorta for screening US SCREENING FOR AAA Radiology Routine Screening for abdominal aortic aneurysm 1 Occurrences starting 11/22/2023 until 12/21/2024 [facility] Comment on above: 1 Occurrences starting 11/22/2023 until 12/21/2024 End: 05-01-2023 Us abdominal aorta real time screen study aaa US SCREENING FOR AAA Radiology Routine Screening for AAA (abdominal aortic aneurysm) 1 Occurrences starting 04/01/2022 until 05/01/2023 [facility] Work Phone: Comment on above: 1 Occurrences starting 04/01/2022 until 05/01/2023 End: 10-30-2023 Us abdominal aorta real time screen study aaa US SCREENING FOR AAA Radiology Routine Screening for AAA (abdominal aortic aneurysm) 1 Occurrences starting 09/30/2022 until 10/30/2023 [facility] Work Phone: Comment on above: 1 Occurrences starting 09/30/2022 until 10/30/2023 [facility] Immunizations Immunization Date Immunization Notes Care Provider [facility] 07-10-2024 influenza, high dose seasonal, preservative-free Dr. Aric Zapien MD Work Phone: [facility] 11-28-2023 COVID-19 vaccine, ag e 12+ yr, season ([employer]) CYNTHIA Max PA-C Work Phone: [facility] 05-24-2023 COVID-19 vaccine, ag e 12+ yr, season (PFIZER-BIONTECH) Arci Zapien MD Work Phone: [facility] 05-24-2023 influenza (HD-IIV4) vaccine, age 65+ yr, high dose, quadrivalent, PF (FLUZONE HIGH-DOSE) Aric Zapien MD Work Phone: [facility] 05-24-2023 influenza virus vaccine, unspecified formulation NA [employer] Work Phone: [facility] 03-12-2022 influenza, high dose seasonal, preservative-free Aric Zapien MD Work Phone: [facility] 03-12-2022 influenza virus vaccine, unspecified formulation Mri (I-Stat/1.5t) Work Phone: [facility] 03-09-2022 pneumococcal Conjuga te, unspecified formulation NA [email or web address] Work Phone: [facility] Work Phone: 03-09-2022 pneumococcal (PCV20) vaccine, 20 valent (PREVNAR 20) NA [email or web address] Work Phone: [facility] Work Phone: 03-25-2021 influenza, injectabl e, quadrivalent, contains preservative Aric Zapien MD Work Phone: [facility] 02-11-2021 COVID-19 original vaccine, full dose, monovalent (MODERNA) Aric Zapien MD Work Phone: [facility] 01-14-2021 COVID-19 original vaccine, full dose, monovalent (MODERNA) Aric Zapien MD Work Phone: [facility] 02-29-2020 influenza, high dose seasonal, preservative-free Aric Zapien MD Work Phone: [facility] 02-29-2020 influenza, injectabl e, quadrivalent, preservative free Aric Zapien MD Work Phone: [facility] 02-29-2020 zoster vaccine recombinant Aric Zapien MD Work Phone: [facility] 10-31-2019 zoster vaccine recombinant Aric Zapien MD Work Phone: [facility] 03-31-2019 Influenza, injectabl e, Madin Brigitet Canine Kidney, preservative free, quadrivalent Aric Zapien MD Work Phone: [facility] 03-31-2019 influenza, seasonal, injectable Aric Zapien MD Work Phone: [facility] 03-01-2018 influenza, injectabl e, quadrivalent, preservative free Aric Zapien MD Work Phone: [facility] 03-01-2018 pneumococcal polysaccharide vaccine, 23 valent Aric Zapien MD Work Phone: [facility] 03-22-2017 influenza, seasonal, injectable Aric Zapien MD Work Phone: [facility] 03-22-2017 influenza, seasonal, injectable, preservative free Aric Zapien MD Work Phone: [facility] 04-29-2015 influenza, injectabl e, quadrivalent, preservative free Dr. Airc Zapien Work Phone: [facility] 04-29-2015 influenza, seasonal, injectable [facility] Work Phone: 04-29-2015 influenza, seasonal, injectable, preservative free Aric Zapien MD Work Phone: [facility] NEGATED: Highlighted row has not occurred!03-09-2022 COVID-19 booster vaccine, age 12+ yr, bivalent (PFIZER-BIONTECH) NA Mansoor PERRY Work Phone: [facility] Work Phone: Comment on above: Deferred: Postponed Payers Date Payer Category Payer Medicare [id number] 2024 Self-pay [id number] 2023 Medicare (Managed Care) JODIE FAJARDO HMO [id number] 2023 Unknown ANTHEM BLUE CROS S AND BLUE SHIELD ANTHEM MEDICARE ADVANTAGE HMO [id number] 2023-Present [phone] [address] [place] [address] HMO [id number] 2023 Medicare [id number] 2023 Unknown [id number] 2019 Medicaid MEDICAID [facility] MEDICAID [id number] 2019-Present [phone] [address] [address] Medicaid [id number] [facility] [address] [facility] DUAL COMPLETE HMO SNP [id number] 2018-Present [phone] [address] [place] [address] Medicare [id number] 2018 Medicare [id number] 2017 Medicaid [id number] 2017 Medicaid [id number] Unknown [employer] [id number] Unknown [facility] MCRDUAL COMP HMO [id number] Unknown [place] AUTH REQUIR ED SEE NOTE [id number] [facility] MCRDUAL COMPLETE [id number] Unknown [id number] Unknown [id number] 462 Unknown [id number] 462 Unknown [id number] 462 Unknown [id number]. 462 Unknown [id number]. 462 Unknown [id number] 462 Unknown [id number]. 462 Unknown [id number] 462 Unknown [id number] 462 Unknown [id number] 462 Unknown [id number] 462 Unknown [id number] 462 Unknown [id number] 462 Unknown [id number] 462 Social History Date Type Detail Facility Start: 07-23-2015 End: 03-08-2022 Tobacco smoking status NHIS Ex-smoker [facility] Start: 07-23-2015 End: 03-08-2022 Tobacco use and exposure Smokeless tobacco non-user [facility] Start: 04-14-2021 End: 06-22-2024 Alcohol intake Not Asked [facility] Start: 07-23-2015 End: 03-08-2022 Tobacco Comment Quit in 2005 [facility] Start: 1955 Sex Assigned At Not on file [facility] Start: 02-10-2021 End: 04-01-2022 Exposure to SARS-CoV-2 (event) Not sure [facility] History of tobacco use Current smoker [facility] Start: 02-15-2022 End: 02-25-2022 Exposure to SARS-CoV-2 (event) Unable to assess [facility] Work Phone: Start: 03-06-2022 End: 06-23-2023 Tobacco smoking status [facility] Unknown if ever smoked [facility] Start: 09-15-[address] [facility] Start: 09-15-2014 Alone;- [facility] Start: 04-27-2015 Non-smoker [facility] Start: 1955 Sex Assigned At Male W [facility] Start: 09-30-2022 End: 12-07-2022 History of Social function [facility] Work Phone: Start: 09-30-2022 End: 12-07-2022 Tobacco use panel [facility] Work Phone: Adult Depression Screening Assessment 0 [facility] Work Phone: Start: 09-11-2024 Sex Male (finding) [facility] Medical Equipment Procedure Code Equipment Code Equipment Origin al Text Equipment Identifier Dates Test blood sugar (s) 1 times daily. Dx: Type 2 DM - Uncontrolled E11.65 Insulin: No [id number], [id number] Start: 04-01-2022 Comment on above: Test blood sugar(s) 1 times daily. Dx: Type 2 DM - Uncontrolled E11.65 Insulin: No Goals Date Patient Goal Desired Activity /State Functional Status Date Assessment Result Facility 07-11-2024 Functional status Chair [facility] Work Phone: 07-10-2024 Functional status Tolerates Activity Well [facility] Work Phone: 03-09-2022 Are you deaf, or do you have serious difficulty hearing No [facility] 03-09-2022 Are you blind, or do you have serious difficulty seeing, even when wearing glasses No [facility] 03-09-2022 Do you have serious difficulty walking or climbing stairs No [facility] 03-09-2022 Do you have difficul ty dressing or bathing No [facility] 03-09-2022 Because of a physica l, mental, or emotional condition, do you have difficulty doing errands alone such as visiting a physician's office or shopping No [facility] Mental Status Date Assessment Result Facility 07-11-2024 Cognitive function Voice/Name [facility] Work Phone: 03-09-2022 Because of a physica l, mental, or emotional condition, do you have serious difficulty concentrating, remembering, or making decisions Yes [facility] 03-06-2022 Cognitive function Level Of Cons ciousness Awake;Alert;Appropriate;Fol lows Commands;Responds to vocal stimuli [facility] Work Phone: Clinical Notes 06-27-2020 to 10-25-2024 Telephone Encounter - Nida Root LPN - 10/25/2024 12:23 PM EDTTelephone Encounter - Nida Root LPN - 10/25/2024 12:23 PM EDTTelephone Encounter - Felciita Bolden MA - 07/16/2024 3:25 PM EST Note Date & Type Note Facility 10-25-2024 Telephone encount er Note No show letter #2 sent to patient. [facility] 10-25-2024 Miscellaneous Notes Formattin g of this note might be different from the original. No show letter #2 sent to patient. documented in this encounter [facility] 07-16-2024 Telephone encount er Note Patient canceled his appointment on 07/12/24 with Isa Stevenson. He was discharged from [facility] on 07/11/24 DX: AFIB RVR, debility. Called and spoke with ex- Flor, his emergency contact, and she said he is in [facility] for rehab with the hopes for permanent placement afterwards. Felicita Bolden MA July 16, 2024 3:30 PM [facility] 07-16-2024 Miscellaneous Notes Formattin g of this note might be different from the original. Patient canceled his appointment on 07/12/24 with Isa Stevenson. He was discharged from [facility] on 07/11/24 DX: AFIB RVR, debility. Called and spoke with ex- Flor, his emergency contact, and she said he is in [facility] for rehab with the hopes for permanent placement afterwards. Felicita Bolden MA July 16, 2024 3:30 PM documented in this encounter [facility] 07-11-2024 Note [facility] Medical Records Department [address] [place] [address] Discharge Summary 07/11/2414 MR#: [id number] Acct: [id number] Name: REINA SULLIVAN Rep #: [id number] : 1955 69 From: Yann Ascencio DO PCP: Dr. Aric Zapien MD Status:ADM IN Location: [place] [address] Providers Date of Admission: 07/09/24 Primary Care [...] mg Simvastatin 80mg (more content not included)... [facility] 07-09-2024 Evaluation note Diagnosis Onset Date Resolution Atrial fibrillation with rapid ventricular response resolved July 09 10:34am Bilateral ankle pain resolved 2024 10:34am Bilateral leg and foot pain resolved July 09 10:34am [facility] Work Phone: [phone] Telephone encounter Note* Telephone Encounter - Rodolfo Werner - 06/26/2024 8:25 AM EST I left a vm for patient to call when available to schedule an appt fro his fracture referral in hischart [facility]01-28-2025 Miscellaneous Notes* Telephone Encounter - Rodoflo Werner - 06/26/2024 8:25 AM EST I left a vm for patient to call when available to schedule an appt fro his fracture referral in hischart documented [facility]01[facility] Telephone encounter Note * Telephone Encounter - Felicita Bolden MA - 06/25/2024 11:51 AM EST Spoke with ex , Halima, and she was made aware of results and provider message. She was also given the number to call and schedule his appointment for spine. She verbalizes understanding. Felicita Bolden MA June 25, 2024 11:52 AM [facility]01-27-2025 Miscellaneous Notes* Telephone Encounter - Felicita [...] Halima Sullivan. 06/16/24 telephone encounter routed to [facility] for back, neck, and spine pool again for schedulingconsultation with orthopaedic electronic publishing specialist. * Telephone Encounter - Karla Ferguson [...] have a compression fracture. documented in this encounterL[facility]01-27-2025 Telephone encounter Note * Telephone Encounter - Mecca Summers - 06/25/2024 10:58 AM EST Patient returned missed call and received the provider's message. He voiced understanding. Patient requests all medical updates be discussed with his ex-spouse, Halima Sullivan. 06/16/24 telephone encounter routed to [facility] for back, neck, and spine pool again for schedulingconsultation with orthopaedic electronic publishing specialist. [facility]01-27-2025 Telephone encounter Note* Telephone Encounter - Karla Ferguson MA - 06/25/2024 10:47 AM EST Message left for pt to call back for results. Karla Ferguson MA [facility]01-27-2025 Telephone encounter Note* Telephone Encounter - [...] surgery. He does have a compression fracture. [facility]01-24-2025 Telephone encounter Note* Telephone Encounter - Florinda Stevenson APRN.CNP - 06/22/2024 5:03 PM EST Yes. An orthopedic electronic publishing specialist. Does not need surgery but they can evaluate for kyphoplasty- setting the compression if needed [facility]01-24-2025 Miscellaneous Notes* Telephone Encounter - Florinda Stevenson APRN.CNP - 06/22/2024 5:03 PM EST Yes. An orthopedic electronic publishing specialist. Does not need surgery but they [...] appropriately. Rebecca Dumas RN documented in this encounterLima [facility] Hospital01-24-2025 Miscellaneous Notes* Telephone Encounter - Mecca Summers - 06/22/2024 4:41 PM EST [place] [facility] unauthorized to schedule for this department. Patient notified that JARRETT routed referralto the appropriate department and their facility will contact patient for scheduling. Patient requests all future medical information and appointment scheduling be disclosed to ex-spouse, Flor Sullivan, only. * Telephone Encounter - Felicita Bolden MA - 06/22/2024 4:29 PM EST Patient notified of results and transferred to senior statistical programmer * Telephone Encounter - Florinda Stevenson APRN.CNP [...] if pt knows he is scheduled at [facility] * Telephone Encounter - Aric Zapien MD - 06/19/2024 10:50 AM EST Please call before (I suspect was put in wrong place) * Telephone Encounter - Aric Zapien MD - 06/16/2024 8:47 AM EST Schedule to see me at [facility] in person on 06/21/24. Please make sure they are aware apptthey scheduled is at that office and not [place] documented in this encounterL[facility]01-24-2025 Telephone encounter Note * Telephone Encounter - Mecca Summers - 06/22/2024 4:41 PM EST [place] [facility] unauthorized to schedule for this department. Patient notified that JARRETT routed referralto the appropriate department and their facility will contact patient for scheduling. Patient requests all future medical information and appointment scheduling be disclosed to ex-spouse, Flor Sullivan, only. [facility]01-24-2025 Telephone encounter Note* Telephone Encounter - Rebecca Dumas RN - 06/22/2024 4:36 PM EST Asking for provider to clarify pt's order for [facility]. Does patient need to see a surgeon? Please advise so that [facility] staff can schedule patient appropriately. Rebecca Dumas RN [facility]01-24-2025 Telephone encounter Note* Telephone Encounter - Felicita Bolden MA - 06/22/2024 4:29 PM EST Patient notified of results and transferred to senior statistical programmer [facility]01-24-2025 Telephone encounter Note* Telephone Encounter - Florinda Stevenson APRN.CNP - 06/22/2024 3:34 PM EST Please let patient know that he has a lumbar 1 compression fracture of the endplate. I am going to send him to a spine surgeon to review. Please facilitate primaryscheduling [facility]01-24-2025 NoteHNO ID: [id number] Author: EKATERINA BELTRE Tech Service: ? Author [...] PATIENT PRESENTS WITH AN IMPLANTABLE OR ATTACHED RETAIL SALES CONSULTANT: No RADIOLOGY DEPARTMENT: General X-ray: Exam(s) Completed: Spine X-Ray(s): Lumbar AP / LAT / L5-S1 PERIPHERAL IV DATA: Not applicable SIGNED BY: Rosa Wakefield June 22, 2024 2:52 [facility]01-24-2025 Instructions* Patient Instructions* Florinda Stevenson APRN.CNP - 06/22/2024 1:59 PM EST 1) Check blood and urine in lab 2) Xray lumbar spine 3) Methocarbamol 500 mg 3 x day as needed for low back pain 4) Follow up in 2 weeks documented in this encounterLima [facility]01-24-2025 NoteHNO ID: [id number] Author: FLORINDA STEVENSON APRN.CNP Service: ? Author Type: Physician Type: Progress [...] PAST MEDICAL HISTORY Diagnosis Date Atrial fibrillation ([facility]) Dr. 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 Huston TBI (traumatic brain injury) ([facility]) 2 times PAST SURGICAL HISTORY Procedure Laterality [...] complication, without long-term current use of insulin ([facility]) - ICD9: 250.00, ICD10: E11.9 (primary diagnosis) [...] M54.50 Concern for compressi (more content not included)...[facility] 06-22-2024 History of Present illness Narrative* Florinda Stevenson APRN.[facility] - 06/22/2024 1:35 PM EST This is [...] PAST MEDICAL HISTORY Diagnosis Date Atrial fibrillation ([facility]) Dr. 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 Huston TBI (traumatic brain injury) (HCC) [...] as needed for worsening/no improvement. Florinda Stevenson APRN.KVNG documented in this encounterL[facility] Hospital01-21-2025 Telephone encounter Note * Telephone Encounter - Felicita Bolden MA - 06/19/2024 11:20 AM EST Please call pt and ask if pt knows he is scheduled at [facility]01-21-2025 Telephone encounter Note* Telephone Encounter - Aric Zapien MD - 06/19/2024 10:50 AM EST Please call before (I suspect was put in wrong place) [facility]01-18-2025 Telephone encounter Note* Telephone Encounter - Aric Zapien MD - 06/16/2024 8:47 AM EST Schedule to see me at [facility] in person on 06/21/24. Please make sure they are aware apptthey scheduled is at that office and not [place] [facility]01-16-2025 Telephone encounter Note* Telephone Encounter - [place] B[place] Lulu Bryant - 06/14/2024 10:31 AM EST Patient called to request medication. He stated that he will need the medication by tomorrow, 06/15/24. Scheduled patient due to he fell on ice, but he declined any other days/times/providers. He will only see Dr. Zapien. He stated he can wait. He can only come on a . Scheduled at his request on 06/21/24. [facility]01-16-2025 Miscellaneous Notes* Telephone Encounter - [place] B[place] Lulu Bryant - 06/14/2024 10:31 AM EST [...] 13, 2024 9:08 AM documented in this encounterLima [facility] Hospital01-15-2025 Telephone encounter Note * Telephone Encounter [...] Courtney Crane June 13, 2024 9:08 AM [facility]12-30-2024 NoteHNO ID: [id number] Author: MAYURI PEREZ MA Service: ? Author Type: Textile Machine Operator Type: Progress Notes Filed: 05/28/2024 19:08 Note Text: POPULATION HEALTH NAVIGATION OUTREACH Action/CLAUDETTE GREGORY OUTREACH Reason for Outreach Suspected Conditions Patient Contacted: Unable or unnecessary to reach patient: Left message Navigation Signature: Mayuri Perez MA May 28, 2024 7:07 [facility]12-30-2024 History of Present illness Narrative* Mayuri Perez MA - 05/28/2024 7:07 PM EST POPULATION HEALTH NAVIGATION OUTREACH Action/FYI [facility] OUTREACH Reason for Outreach Suspected Conditions Patient Contacted: Unable or unnecessary to reach patient: Left message Navigation Signature: Mayuri Perez MA May 28, 2024 7:07 PM documented in this encounterLima [facility] Hospital12-30-2024 NotePatient Outreach (NETNAV) REINA SULLIVAN ([id number]) 1955 M Date Time Provider Department 05/28/24 MAYURI PEREZ During your visit today, we recorded the following information about you: Mayuri Perez MA 05/28/2024 7:08 PM Signed POPULATION HEALTH NAVIGATION OUTREACH Action/FYI [facility] OUTREACH Reason for Outreach Suspected Conditions Patient [...] Visit: Population Health Navigation Outreach [3910] Cmt: [facility] OUTREACH Prescriptions as of 05/28/2024 - divalproex [...] unspecified na*09/30/2022 Left atrial enlargement [I51.7] 09/30/2022 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 *09/30/2022 Migraine [...] 09/30/2022 Encounter Status:Closed by MAYURI PEREZ on 05/28/24[facility] History of Present illness Narrative* Edward Pleitez [facility] - 04/18/2024 11:07 AM EST Pt chart reviewed as part of population health initiative focused on statin use in patients with diabetes (DM) or cardiovascular disease (CVD). Reina Sullivan is identified through data from [employer] (insurer) as a potential candidate for statin [...] indicates patient has hx of CVA and TN, should be on high-intensity statin for secondary prevention. Patient scheduled to see PCP on 05/25. ALLERGIES Allergen Reactions Dye Other: See Comments used for heart cath PAST MEDICAL HISTORY Diagnosis Date Atrial fibrillation (HCC) Dr. 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 Huston TBI (traumatic brain injury) ([facility]) 2 times Cholesterol, Total (mg/dL) Date Value [...] provider Edward Pleitez RPh documented in this encounterLima [facility] Hospital11-20-2024 NoteHNO ID: [id number] Author: EDWARD PLEITEZ RPh Service: ? Author Type: Pharmacist Type: Progress Notes Filed: 04/18/2024 11:12 Note Text: Pt chart reviewed as part of population health initiative focused on statin use in patients with diabetes (DM) or cardiovascular disease (CVD). Reina Sullivan is identified through data from [employer] (insurer) as a potential candidate for statin [...] indicates patient has hx of CVA and TN, should be on high-intensity statin for secondary prevention. Patient scheduled to see PCP on 05/25. ALLERGIES Allergen Reactions Dye Other: See Comments used for heart cath PAST MEDICAL HISTORY Diagnosis Date Atrial fibrillation ([facility]) Dr. 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 Huston TBI (traumatic brain injury) ([facility]) 2 times Cholesterol, Total (mg/dL) Date Value [...] review: Pending outreach to provider [facility] NoteHNO ID: [id number] Author: EDWARD PLEITEZ RPh Service: ? Author Type: Pharmacist Type: Progress Notes Filed: 05/28/2024 15:55 Note Text: Appears patient was a no-show to PCP visit on 05/25. Edward Pleitez PharmBarrba, [facility] Primary [facility]ist[facility] NotePatient Outreach (PHMEWO) REINA SULLIVAN ([id number]) 1955 M Date Time Provider Department 04/18/24 EDWARD PLEITEZ MEWO During your visit today, we recorded the following information about you: Edward Pleitez RPh 04/18/2024 11:12 AM Signed Pt chart reviewed as part of population health initiative focused on statin use in patients with diabetes (DM) or cardiovascular disease (CVD). Reina Sullivan is identified through data from [employer] (insurer) as a potential candidate for statin [...] indicates patient has hx of CVA and TN, should be on high-intensity statin for secondary prevention. Patient scheduled to see PCP on 05/25. ALLERGIES Allergen Reactions Dye Other: See Comments used for heart cath PAST MEDICAL HISTORY Diagnosis Date Atrial fibrillation ([facility]) Dr. 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 Huston TBI (traumatic brain injury) ([facility]) 2 times Cholesterol, Total (mg/dL) Date Value [...] review: Pending outreach to provider Edward Pleitez Edward Najera RPh 05/28/2024 3:55 PM Signed Appears patient [...] unspecified na*09/30/2022 Left atrial enlargement [I51.7] 09/30/2022 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 *09/30/2022 Migraine headac (more content not included)...[facility] 03-22-2024 Telephone encounter Note* Telephone Encounter - Merline Jimenez RN - 03/22/2024 2:44 PM EDT Patient does not see endocrinology. Will route to PCP office to make them aware. Merline Jimenez RN March 22, 2024 2:44 PM [facility]10-24-2024 Miscellaneous Notes* Telephone Encounter - Merline [...] to reduce cardiovascular risk. documented in this encounterL[facility] Hospital10-23-2024 Telephone encounter Note * Telephone Encounter - Vanna Flores - 03/21/2024 3:31 PM EDT [place] states that their records show patient has diabetes but does not take statins. AMA recommendthat patient take a statin to reduce cardiovascular risk. [facility]10-17-2024 NoteHNO ID: [id number] Author: YOLANDA STRATTON MA Service: ? Author Type: Textile Machine Operator Type: Progress Notes Filed: 03/15/2024 08:28 Note Text: POPULATION HEALTH NAVIGATION OUTREACH Action/FYI Letter received and sent to be mailed. Navigation Signature: Yolanda Stratton MA March 15, 2024 8:27 [facility]10-09-2024 NoteHNO ID: [id number] Author: JORDY HERNANDEZ MA Service: ? 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 list for below and needs appointment to address: Abdominal Aortic Aneurysm Screening BP Controlled (<130/80) DTaP,Tdap,Td Vaccine(1 - Tdap) Colorectal Cancer Screening Dilated Retinal Exam Advance Directive Discussion HbA1C Influenza Vaccine(1) Covid-19 Vaccine( - season) Hemoglobin A1C (%) Date Value 05/24/2023 [...] 07, 2024 7:34 AM documented in this encounterLima [facility] Hospital10-09-2024 NotePatient Outreach (NETNAV) REINA SULLIVAN ([id number]) 1955 M Date Time Provider Department 03/07/24 JORDY HERNANDEZ During your visit today, we recorded the following information about you: Jordy Hernandez MA 03/07/2024 10:40 AM Signed POPULATION HEALTH NAVIGATION OUTREACH Action/FYI Patient is on [facility] CURRENT ROSTER Workbenc list for below and needs appointment to address: Abdominal Aortic Aneurysm Screening BP Controlled (<130/80) DTaP,Tdap,Td Vaccine(1 - Tdap) Colorectal Cancer Screening Dilated Retinal Exam Advance Directive Discussion HbA1C Influenza Vaccine(1) Covid-19 Vaccine(5 - season) Hemoglobin A1C (%) Date Value 05/24/2023 [...] Population Health Navigation Outreach [3910] Cmt: [facility] Prescriptions as of 03/15/2024 - divalproex [...] unspecified na*09/30/2022 Left atrial enlargement [I51.7] 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 Author Type: Textile Machine Operator Type: Progress Notes Filed: 12/15/2023 13:03 Note [...] Moshe Friedman MA December 15, 2023 1:01 [facility]07-18-2024 History of Present illness Narrative* Moshe Friedman [...] 15, 2023 1:01 PM documented in this encounterLima [facility] Hospital07-18-2024 NotePatient Outreach (NETNAV) REINA USLLIVAN ([id number]) 1955 M Date Time Provider Department 12/15/23 [...] unspecified na*09/30/2022 Left atrial enlargement [I51.7] 09/30/2022 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 *09/30/2022 Migraine [...] 09/30/2022 Encounter Status:Closed by MOSHE FRIEDMAN on 12/15/23[facility] 11-24-2023 Telephone encounter Note* Telephone Encounter - Harvey Hazel MSW - 11/24/2023 12:54 PM EDT [place] called and spoke with Halima, patient ex in regards to service assistance options in the community. Halima notes that she helps patient " to a certain extent." Halima and Nikkie spoke about [facility] Adult Resource Directory. Halima asks that Sw mail patient this guide for him to review and see what services are available in the community. Nikkie will also attach [facility] Older Adult support program and [facility] information. [facility]06-27-2024 Miscellaneous Notes* Telephone Encounter - Harvey Hazel MSW - 11/24/2023 12:54 PM EDT [facility] called and spoke with Halima, patient ex in regards to service assistance options in the community. Halima notes that she helps patient " to a certain extent." Halima and Nikkie spoke about [facility] Adult Resource Directory. Halima asks that Sw mail patient this guide for him to review and see what services are available in the community. Nikkie will also attach [facility] Older Adult support program and [facility] information. documented in this encounterCleveland [phone] Instructions* Patient Instructions* Jaison Max PA-C - 11/22/2023 3:54 PM EDT Nail dremmel for nail trimming might help, would need assistance documented in this encounterLima [facility] Hospital06-25-2024 History of Present illness Narrative* Jaison Max PA-C - 11/22/2023 3:40 PM EDT 68 year old male with c/o 6-month follow-up Last visit Dr. 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) Neurologist: Dr. Aric Huston Current medications: Apixaban 5 mg twice daily Divalproex DR 500 mg 1 tablet twice daily No seizures. 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 ([facility]) 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 Non-rheumatic tricuspid [...] stable AF, no concerns 09/08/2015 Dr. James [place]: cardiac cath: no disease 09/08/2015 cardiac catheterization [facility] Dr. James: - primary rhythm atrial fibrillation [...] Lymph 1.00 - 4.00 k/uL 1.57 2.35 Mason% % 9.8 11.3 Abs Mason <0.87 k/uL 0.66 0.98 (H) Eosin% % [...] (HCC) Dr. 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 Chronic renal failure (CRF), stage 3a ([facility]) - ICD9: 585.3, ICD10: N18.31 - eGFR: [...] plan Jaison Max PA-C documented in this encounterLima Memorial Hospital06-25-2024 NoteHNO ID: [id number] Author: Jaison MAX PA-C Service: ? Author Type: Physician Teacher Counselor Type: Progress Notes Filed: 11/28/2023 09:49 Note Text: 68 year old male with c/o 6-month follow-up Last visit Dr. 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 Aric Huston Current medications: Apixaban 5 mg twice daily D[address]ex [address] 500 mg 1 tablet twice daily No seizures. 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 James [place]: cardiac cath: no disease 09/08/2015 cardiac catheterization [facility] Dr. James: - primary rhythm atrial fibrillation [...] Lymph 1.00 - 4.00 k/uL 1.57 2.35 Mason% % 9.8 11.3 Abs Mason <0.87 k/uL 0.66 0.98 (H) Eosin% % [...] / Complications: hypertension, hyperlipide (more content not included)...[facility]06-11-2024 Telephone encounter Note* Telephone Encounter - Yolanda [...] Yolanda Bryant November 08, 2023 10:11 AM [facility]06-11-2024 Miscellaneous Notes* Telephone Encounter - Yolanda [...] 08, 2023 10:11 AM documented [facility] Telephone encounter Note * Telephone Encounter [...] 11/22/2023 Please advise. Thank you. Bree Johnson. [facility]06-03-2024 Miscellaneous Notes* Telephone Encounter - Bree [...] Thank you. Bree Johnson. documented in this encounterL[facility]07[facility] History of Present illness Narrative* Sarah Leone PA - 12/07/2022 2:05 PM EDT This note was created using [employer]. Subjective Reina Sullivan is a 67 year [...] PAST MEDICAL HISTORY Diagnosis Date Atrial fibrillation ([facility]) Dr. 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 Huston TBI (traumatic brain injury) ([facility]) 2 times PAST SURGICAL HISTORY Procedure Laterality [...] 2 DM - Uncontrolled E11.65 Insulin: No^Disp: 100 Each^Rfl: 11 blood sugar [...] tobacco: Never Tobacco comments: Quit in 2006 Review of Systems Constitutional: Negative for chills [...] ER evaluation. CYNTHIA White documented in this encounterL[facility]05-[facility] History of Past illness Narrative* Problem [...] of this encounter (statuses as of 09/30/2022) [facility]05-04[facility] History of Past illness Narrative* Problem Noted Date Diagnosed Date Resolved Date Encounter for issue of repeat prescription 09/30/2022 09/30/2022 Fracture of skull 09/30/2022 09/30/2022 Headache 09/30/2022 09/30/2022 High serum creatinine 09/30/20222022 Syncope and collapse 09/30/2022 05 023 Undiagnosed cardiac murmurs 09/30/2022 09/30/2022 Encounter for hepatitis C sc reening test for low risk patient 03/09/2022 09/30/2022 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 status epilepticus 06/27/2020 03/25/2021 Hyperglycemia 03/23/2017 03/26/2021 documented as of this encounter (statuses as of 12/08/2022) [facility] History of Present illness Narrative* Aric Zapien MD - 09/30/2022 1:13 PM EDT Patient presents with: 6 Month Exam HPI: Patient presents today for office visit for follow up. DM: Does not check sugars at home Takes Metformin 500 mg daily No vision changes No foot lesions, numbness of pain No polyuria or polydipsia Due for A1c Last one was 11/3/[address] James. Has edema [...] PAST MEDICAL HISTORY Diagnosis Date Atrial fibrillation ([facility]) Dr. 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 Huston TBI (traumatic brain injury) (HCC) [...] YATES in two weeks. documented in this encounterL[facility]01-20-2023 Miscellaneous Notes* Telephone Encounter - Karla [...] notify patient. Jesi Bryant documented in this encounterLima [facility] Hospital01-13-2023 History of Present illness Narrative* Leanna Benavidez RN - 06/11/2022 11:32 AM EST ACM COLEMAN RN Afsaneh Mercedes, My name is Leanna Benavidez RN. I am calling from [facility]. Your Healthcare team and Medicare provider would like to assist in your success in taking prescribed medications for cardiovascular health and/or diabetes. Is this a good time to talk with you? NO Called patient, home line no answer just niles, home phone [phone] not working Thank you - Leanna Benavidez RN Patient identified by name and date of . Patient Attributed To: QAE Payer: [facility] Reason for review or outreach: Medication Adherence Medication Adherence Review Details: Diabetes Summary / Findings: As per above Action Taken: Data submitted to Payer Other Contact made with patient: No, Unable to leave message Leanna Benavidez RN Signature: Leanna Benavidez RN documented in this encounterLima [facility] Hospital11-29-2022 Miscellaneous Notes* Telephone Encounter - Vickie Badillo Pss - 04/27/2022 1:45 PM EST The patient declined an appointment with general JARRETT. Soonest appointment at [place] is 08/16/22. Please advise. * Telephone Encounter - Berenice Weston Pss - 04/27/2022 11:49 AM EST Patient returned call and stated there is no way he can drive, or his friend is able to drive all the way to [place] for an appt. Requesting call back from nurse to discuss soonest appt herein [place]. Please advise. * Telephone Encounter - Vickie [...] studies. Aric Huston MD documented in this encounterLima [facility] Hospital11-28-2022 History of Present illness Narrative* Felicita Ruiz [...] DEPARTMENT: MR; Exam(s) Completed: Head: Routine Brain [place] MRA Neck: Carotids MRA, bilateral PERIPHERAL IV DATA: Not applicable SIGNED BY: RT Rajendra(Andre) April 26, 2022 1:58 PM documented in this encounterLima Memorial Hospital11-16-2022 Miscellaneous Notes* Telephone Encounter - Jovana [...] Provider: Jaison MAX PA-C documented in this encounterLima [facility] Hospital11-14-2022 Miscellaneous Notes* Telephone Encounter - Aric [...] ER. Aric Huston MD documented in this encounterLima Memorial Hospital11-14-2022 History of Present illness Narrative* Aric [...] 12, 2022 3:18 PM documented in this [facility]11-14-2022 Instructions* Patient Instructions* Marni Hare, SHANA - 04/12/2022 3:12 PM EST Use Refresh or Systane gel nightly in both eyes documented in this [facility]11-04-2022 Miscellaneous Notes* Telephone Encounter - Pam [...] and pasted from Results documented in this [facility]11-03-2022 History of Present illness Narrative* Aric [...] ordered. 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 Vania PSS * Telephone Encounter - Felicita Bolden Ma - 03/15/2022 4:39 PM EDT Patient notified. Please help schedule. Felicita Bolden Ma * Telephone Encounter - Felicita Bolden Ma - 03/15/2022 4:37 PM EDT Images from the original note were not included. Jaison Max PA-C P tr Yuriy Matamoros Please schedule echo added after visit and explain this is follow up for valvular disease and enlarged aortic listed. Last testing 2015. Thanks, Janusz Max PA-C documented in this encounterLima Memorial Hospital10-11-2022 History of Present illness Narrative* Lolis [...] don't fit properly- does fine without them. [place] anxious, stressed, angry, irritable, lonely, isolated, or [...] in the medical record. Dr. Huston neurology [place] [facility] Medical/Family history review Reviewed and updated [...] Lymph 1.00 - 4.00 k/uL 1.87 1.93 Mason% % 9.0 7.2 Abs Mason <0.87 k/uL 0.78 0.54 Eosin% % 0.9 [...] OPHTHALMOLOGY Jaison Max PA-C documented in this encounterLima Memorial Hospital10-11-2022 History of Past illness Narrative* Problem Noted Date Diagnosed Date Resolved Date Encounter for hepatitis C sc reening test for low risk patient 03/09/2022 09/30/2022 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 status epilepticus 06/27/2020 03/25/2021 Hyperglycemia 03/23/2017 03/26/2021 documented as of this encounter (statuses as of 04/03/2023) [facility] History of Present illness Narrative* Aric [...] prior head trauma. Prior records requested from [facility]. Unclear if currentsymptoms described above of AMS [...] have yet to receive requested records from [facility] and I have asked the patient to contact that practice to aid in retrieval of records. Pt states since last visit he had some strokes, 3 of them, for which he was treated in [place] and up in [place] or something like that. States passed out [...] (HCC) Dr. 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 Huston TBI (traumatic brain injury) 2 [...] which included preparing to see the patient, [id number] patient care, completing clinical documentation, obtaining and/or reviewing separately obtained history, performing a medically appropriate examination, counseling and educating the pat ient/family/caregiver, ordering medications, tests, or procedures, and communicating results to thepatient/family/caregiver. documented in this encounterLima Memorial Hospital10-07-2022 Miscellaneous Notes* Telephone Encounter - Kayleen Juani Quintero LPN - 03/05/2022 8:10 AM EDT Patient has been identified by name and date of : Yes Patient phones for refill(s): Requested Prescriptions Pending Prescriptions Disp Refills divfavian ANNE (DEPAKOTE) 500 mg EC tablet 60 tablet [...] and advise. Mecca Orozco documented in this encounterLima Memorial Hospital09-27-2022 History of Present illness Narrative* Joceline Waldron RN - 02/23/2022 2:29 PM EDT ACM COLEMAN RN Action/FYI: Chart review completed for Medication Adherence - Statin Use in Patients with Cardiovascular Disease at the request of [employer] ([facility]). No statin order noted. No statin exclusionary [...] with Cardiovascular Disease is based on 2013 [place] [employer] [employer] (ACC/AHA) guidelines which recommends moderate tohigh-intensity statin therapy for prevention of ASCVD events. Patient Attributed To: QAE Payer: [facility] Reason for review or outreach: Medication Adherence Medication Adherence Review Details: Cholesterol, Hypertension, and Diabetes Summary / Findings: See Above Action Taken: Encounter routed to provider Contact made with patient: No, Chart review only. Signature: Joceline Waldron RN documented in this encounterLima Memorial Hospital04-28-2022 History of Present illness Narrative* Aric [...] (HCC) Dr. 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 Huston TBI (traumatic brain injury) ([facility]) 2 times PAST SURGICAL HISTORY Procedure Laterality [...] prn. Medical Decision Making documented in this encounterLima [facility] Hospital10-14-2021 History of Present illness Narrative* Machelle Funez RT(R) - 03/12/2021 2:40 PM EDT Radiology [...] 12, 2021 2:38 PM documented in this encounterLima [facility] Hospital01-29-2021 History of Past illness Narrative* Problem Noted Date Resolved Date 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 status epilepticus 06/27/2020 03/25/2021 Hyperglycemia 03/23/2017 03/26/2021 documented as of this encounter (statuses as of 09/11/2021) [facility] of Past illness Narrative* Problem Noted Date Resolved Date 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 status epilepticus 06/27/2020 03/25/2021 Hyperglycemia 03/23/2017 03/26/2021 documented as of this encounter (statuses as of 09/24/2021) [address]29-2021 History of Past illness Narrative* Problem Noted Date Resolved Date 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 status epilepticus 06/27/2020 03/25/2021 Hyperglycemia 03/23/2017 03/26/2021 documented as of this encounter (statuses as of 03/05/2022) [address]29-2021 History of Past illness Narrative* Problem Noted Date Resolved Date 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 status epilepticus 06/27/2020 03/25/2021 Hyperglycemia 03/23/2017 03/26/2021 documented as of this encounter (statuses as of 03/08/2022) [address]29-2021 History of Past illness Narrative* Problem Noted Date Resolved Date 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 status epilepticus 06/27/2020 03/25/2021 Hyperglycemia 03/23/2017 03/26/2021 documented as of this encounter (statuses as of 03/10/2022) [address]21 History of Past illness Narrative* Problem Noted Date Resolved Date 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 status epilepticus 06/27/2020 03/25/2021 Hyperglycemia 03/23/2017 03/26/2021 documented as of this encounter (statuses as of 03/16/2022) [address]29-2021 History of Past illness Narrative* Problem Noted Date Resolved Date 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 status epilepticus 06/27/2020 03/25/2021 Hyperglycemia 03/23/2017 03/26/2021 documented as of this encounter (statuses as of 03/26/2022) [address] History of Past illness Narrative* Problem Noted Date Resolved Date 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 status epilepticus 06/27/2020 03/25/2021 Hyperglycemia 03/23/2017 03/26/2021 documented as of this encounter (statuses as of 04/01/2022) [address]29-2021 History of Past illness Narrative* Problem Noted Date Resolved Date 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 status epilepticus 06/27/2020 03/25/2021 Hyperglycemia 03/23/2017 03/26/2021 documented as of this encounter (statuses as of 04/02/2022) [address]29-2021 History of Past illness Narrative* Problem Noted Date Resolved Date 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 status epilepticus 06/27/2020 03/25/2021 Hyperglycemia 03/23/2017 03/26/2021 documented as of this encounter (statuses as of 04/13/2022) [address]29-2021 History of Past illness Narrative* Problem Noted Date Resolved Date 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 status epilepticus 06/27/2020 03/25/2021 Hyperglycemia 03/23/2017 03/26/2021 documented as of this encounter (statuses as of 04/13/2022) [address]29-2021 History of Past illness Narrative* Problem Noted Date Resolved Date 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 status epilepticus 06/27/2020 03/25/2021 Hyperglycemia 03/23/2017 03/26/2021 documented as of this encounter (statuses as of 04/14/2022) [address]29-2021 History of Past illness Narrative* Problem Noted Date Resolved Date 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 status epilepticus 06/27/2020 03/25/2021 Hyperglycemia 03/23/2017 03/26/2021 documented as of this encounter (statuses as of 04/27/2022) [address]29-2021 History of Past illness Narrative* Problem Noted Date Resolved Date 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 status epilepticus 06/27/2020 03/25/2021 Hyperglycemia 03/23/2017 03/26/2021 documented as of this encounter (statuses as of 06/11/2022) [address]29-2021 History of Past illness Narrative* Problem Noted Date Resolved Date 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 status epilepticus 06/27/2020 03/25/2021 Hyperglycemia 03/23/2017 03/26/2021 documented as of this encounter (statuses as of 06/18/2022) [facility]* Diagnosis Type 2 diabetes mellitus without complication, without long-term current use of insulin (HCC) [facility] 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 (HCC)- Primary [...] specified viral diseases documented [facility] encounter [facility]* Diagnosis Seizures (HCC) Other convulsions documented in this encounter [facility]Evaluation noteNo assessment information availableWSelect Medical Special[facility] Work Phone: Evaluation note* Diagnosis 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 status epilepticus, unspecified epilepsy type (HCC)- Primary Seizures (HCC) Other convulsions documented in this encounter [facility]* Diagnosis Medicare annual wellness visit, initial- [...] lateral visual alexandra [facility]* Diagnosis 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 (HCC)- Primary [...] unspecified cardiovascular conditions documented [facility] encounter [facility]* Diagnosis Nonintractable epilepsy without status epilepticus, unspecified epilepsy type (HCC)- Primary documented in this encounter [facility]* Diagnosis Left homonymous inferior quadrantanopia- Primary Myopia, bilateral Myopia Presbyopia Regular astigmatism of left eye Regular astigmatism Combined forms of age-related cataract of both eyes Other and combined forms of senile cataract Punctate keratitis, bilateral documented in this encounter [facility]* Diagnosis Other symptoms and signs involving the nervous system- Primary documented in this encounter [facility]* Diagnosis Elevated serum creatinine- Primary Other nonspecific findings on examination of blood [facility]* Diagnosis Seizures (HCC) Other convulsions [facility]* Diagnosis Seizures (HCC)- Primary Other convulsions [...] Dermatophytosis of nail documented in this encounter [facility]* Diagnosis Sore throat- Primary Acute pharyngitis URI, acute Acute upper respiratory infections of unspecified site [facility]* Diagnosis 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 status epilepticus, unspecified epilepsy type (HCC) Other symptoms and signs involving the nervous system documented in this encounter [facility]* Diagnosis Onset Date Resolution Status Atrial fibrillation with rapid ventricular response acute Essential hypertension chron ic Valvular heart disease chron ic [facility] Work Phone: Evaluation note* Diagnosis Pulmonary hypertension (HCC) Other chronic pulmonary heart diseases Edema, unspecified type documented in this encounter [facility]* Diagnosis Type 2 diabetes mellitus without complication, without long-term current use of insulin (HCC) [facility]* Diagnosis 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, late effect of cerebrovascular disease Seizures (HCC) Other convulsions Mitral valve insufficiency, unspecified etiology Non-rheumatic tricuspid valve insufficiency Tricuspid valve disorders, specified as nonrheumatic Left atrial enlargement Cardiomegaly 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 (HCC) 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 Long-term (current) [...] disease of nail documented in this encounter [facility]* Diagnosis Acute right ankle pain Foot pain, right Pain in limb documented in this encounter [facility] note* Diagnosis Seizures (HCC) Other convulsions documented in this encounter [facility] note* Diagnosis Type 2 diabetes mellitus without complication, without long-term current use of insulin (HCC)- Primary Fall, initial encounter Screening for lipid disorders Acute low back pain without sciatica, unspecified back pain laterality Fall, initial encounter documented in this encounter [facility] note* Diagnosis Compression fracture of L1 vertebra, initial encounter (HCC)- Primary documented in this encounter [facility] note* Diagnosis Type 2 diabetes mellitus without complication, without long-term current use of insulin (HCC)- Primary documented in this encounter [facility] for referral (narrative)* Outpatient Procedure (Routine) - Pending Review Specialty Diagnoses / Procedures Referred By Jacqueline t Referred To [facility] Diagnoses 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 status epilepticus, unspecified epilepsy type ([facility]) Procedures EPIL EEG ROUTINE ELECTROENCEPHALOGRAM REC COMA/SLEEP ONLY Aric Huston Jr., MD [address] [address] [address] Referral ID Status Reason Start Date Expiration Date Visits Requested Visits Authorized [id number] Pending Review Auto-Generat ed Referral 2 03/08/2023 1 1 * MRI/CT (Routine) - Authorized Specialty Diagnoses / Procedures Referred By Contac t Referred To Contact MR IMAGING Diagnoses 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 status epilepticus, unspecified epilepsy type (HCC) Procedures MRI BRAIN WO IVCON MRI BRAIN BRAIN STEM W/O CONTRAST MATERIAL Aric Huston Jr., MD [address] [address] Mr Imaging Referral ID Status Reason Start Date Expiration Date Visits Requested Visits Authorized [id number] Authorized Auto-Generat ed Referral 2 04/07/2023 1 1 [facility] for referral (narrative)* Outpatient Procedure (Routine) - Pending Review Specialty Diagnoses / Procedures Referred By Contac t Referred To Contact [facility] Diagnoses 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 (HCC) Non-rheumatic tricuspid valve insufficiency Mitral valve insufficiency, unspecified etiology Primary pulmonary HTN (HCC) Enlarged thoracic aorta (HCC) Procedures ECHO ECHO TTHRC R-T 2D W/WOM-MODE COMPL SPEC&COLR D Jaison Max PA-C [address] [place] [address] [facility] [address] [place] [address] Referral ID Status Reason Start Date Expiration Date Visits Requested Visits Authorized [id number] Pending Review Auto-Generat ed Referral 2 03/10/2023 1 1 * Consult, Test, Treat (Routine) - Pending Review Specialty Diagnoses / Procedures Referred By Contac t Referred To Contact Dermatology Diagnoses Multiple atypical skin moles Procedures CONSULT TO DERMATOLOGY OFFICE/OUTPATIENT NEW HIGH MDM 60-74 MINUTES Jaison Max PA-C [address] [place] [address] Referral ID Status Reason Start Date Expiration Date Visits Requested Visits Authorized [id number] Pending Review PCP Requested Referral 2 03/09/2023 1 1 * Consult, Test, Treat (Routine) - Authorized Specialty Diagnoses / Procedures Referred By Contac t Referred To Contact Ophthalmology Diagnoses Presbyopia of both eyes Loss of lateral visual alexandra Procedures CONSULT TO OPHTHALMOLOGY OFFICE/OUTPATIENT [facility] 60-74 MINUTES Jaison Max PA-C [address] [place] [address] Referral ID Status Reason Start Date Expiration Date Visits Requested Visits Authorized [id number] Authorized PCP Requested Referral 2 03/09/2023 1 1 [facility] for referral (narrative)* Diagnostic Procedure Only (Routine) - Authorized Specialty Diagnoses / Procedures Referred By Contac t Referred To Contact US IMAGING Diagnoses Screening for AAA (abdominal aortic aneurysm) Procedures US SCREENING FOR AAA (2017) US ABDOMINAL AORTA REAL TIME SCREEN STUDY AAA Aric Zapien MD [address] [place] [address] Us Imaging Referral ID Status Reason Start Date Expiration Date Visits Requested Visits Authorized [id number] Authorized Auto-Generat ed Referral 04/01/2022 05/01/2023 1 1 * Consult, Test, Treat (Routine) - Pending Review Specialty Diagnoses / Procedures Referred By Contac t Referred To Contact Cardiology Diagnoses 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 (HCC) Enlarged thoracic aorta (HCC) Procedures CONSULT TO CARDIOLOGY OFFICE/OUTPATIENT [facility] 60-74 MINUTES Aric Zapien MD [address] [place] [address] Referral ID Status Reason Start Date Expiration Date Visits Requested Visits Authorized [id number] Pending Review PCP Requested Referral 04/01/2022 04/01/2023 1 1 [facility] for referral (narrative)* Outpatient Procedure (Routine) - Authorized Specialty Diagnoses / Procedures Referred By Contac t Referred To Contact [facility] Diagnoses Peripheral vascular disease (HCC) Procedures [facility] NON-INVASIVE PHYSIOLOGIC STUDY EXTREMITY 3 LEVLS Aric Zapien MD [address] [place] [address] [facility] [place] [address] [place] [address] Referral ID Status Reason Start Date Expiration Date Visits Requested Visits Authorized [id number] Authorized Auto-Generat ed Referral 09/30/2022 09/30/2023 1 1 * Consult, Test, Treat (Routine) - Authorized Specialty Diagnoses / Procedures Referred By Contac t Referred To Contact Podiatry Diagnoses Type 2 diabetes mellitus without complication, without long-term current use of insulin (HCC) Pain due to onychomycosis of nail Procedures CONSULT TO PODIATRY OFFICE/OUTPATIENT NEW HIGH MDM 60-74 MINUTES Aric Zapien MD [address] [place] [address] Referral ID Status Reason Start Date Expiration Date Visits Requested Visits Authorized [id number] Authorized PCP Requested Referral 09/30/2022 09/30/2023 1 1 * Diagnostic Procedure Only (Routine) - Authorized Specialty Diagnoses / Procedures [facility] Diagnoses Screening for AAA (abdominal aortic aneurysm) Procedures US SCREENING FOR AAA (2017) US ABDOMINAL AORTA REAL TIME SCREEN STUDY AAA Aric Zapien MD [address] [place] [address] Us Imaging Referral ID Status Reason Start Date Expiration Date Visits Requested Visits Authorized [id number] Authorized Auto-Generat ed Referral 09/30/2022 10/30/2023 1 1 [facility] for referral (narrative)* Diagnostic Procedure Only (Urgent) - Closed Specialty Diagnoses / Procedures Referred By Contac t Referred To Contact XR IMAGING Diagnoses Foot pain, right Procedures XR FOOT GENERAL 3V AP/LAT/OBL RT X-RAY FOOT MINIMUM 3 VIEWS Quang Bowman MD [address] [place] [address] [place] [address] Referral ID Status Reason Start Date Expiration Date V isits Requested Visits Authorized [id number] Closed Auto-Generate d Referral 03/12/2021 04/11/2022 1 1 * Diagnostic Procedure Only (Urgent) - Closed Specialty Diagnoses / Procedures Referred By Contac t Referred To Contact XR IMAGING Diagnoses Acute right ankle pain Procedures XR ANKLE GENERAL 3V AP/LAT/OBL RT X-RAY ANKLE MINIMUM 3 VIEWS Quang Bowman MD [address] [place] [address] [place] [address] Referral ID Status Reason Start Date Expiration Date V isits Requested Visits Authorized [id number] Closed Auto-Generate d Referral 03/12/2021 05/29/2021 1 1 [facility] for referral (narrative)* Diagnostic Procedure Only (Urgent) - Closed Specialty Diagnoses / Procedures Referred By Contac t Referred To Contact XR IMAGING Diagnoses Chronic low back pain without sciatica, unspecified back pain laterality Fall, initial encounter Procedures XR LUMBAR GENERAL 3V AP/LAT/L5-S1 RADEX SPINE LUMBOSACRAL 2/3 VIEWS Florinda Stevenson APRN.CNP [address] [place] [address] [place] [address] Referral ID Status Reason Start Date Expiration Date V isits Requested Visits Authorized [id number] Closed Auto-Generate d Referral 06/22/2024 07/22/2025 1 1 [facility] for referral (narrative)No reason for referral information availableW[facility]: Reason for visit Narrative* Diagnostic Procedure Only (Urgent) - Closed Specialty Diagnoses / Procedures Referred By Contac t Referred To Contact XR IMAGING Diagnoses Acute right ankle pain Procedures XR ANKLE GENERAL 3V AP/LAT/OBL RT X-RAY ANKLE MINIMUM 3 VIEWS Quang Bowman MD [address] [place] [address] [place] [address] Referral ID Status Reason Start Date Expiration Date V isits Requested Visits Authorized [id number] Closed Auto-Generate d Referral 03/12/2021 05/29/2021 1 1 [facility] Reason for Referral Specialty Diagnoses / Procedures Referred By Contac t Referred To Contact Ophthalmology Diagnoses Type 2 diabetes mellitus without complication, without long-term current use of insulin (HCC) Procedures CONSULT TO OPHTHALMOLOGY OFFICE/OUTPATIENT [facility] 60-74 MINUTES Aric Zapien MD [address] [place] [address] Referral ID Status Reason Start Date Expiration Date Visits Requested Visits Authorized [id number] Authorized PCP Requested Referral 09/24/2021 09/24/2022 1 1 Specialty Diagnoses / Procedures Referred By Contac t Referred To Contact Neurology Diagnoses Seizures (HCC) Procedures CONSULT TO NEUROLOGY OFFICE/OUTPATIENT [facility] 60-74 MINUTES Aric Zapien MD [address] [place] [address] Referral ID Status Reason Start Date Expiration Date Visits Requested Visits Authorized [id number] Pending Review PCP Requested Referral 09/24/2021 09/24/2022 1 1 Specialty Diagnoses / Procedures Referred By Contac t Referred To Contact Cardiology Diagnoses 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 (HCC) Primary pulmonary HTN (HCC) Enlarged thoracic aorta (HCC) Mitral valve insufficiency, unspecified etiology Non-rheumatic tricuspid valve insufficiency Procedures CONSULT TO CARDIOLOGY Aric Zapien MD [address] [place], [place] [id number] Referral ID Status Reason Start Date Expiration Date Visits Requested Visits Authorized [id number] Ref Not Required PCP Requested Referral 09/24/2021 09/24/2022 1 1 Specialty Diagnoses / Procedures Referred By Contac t Referred To Contact MR IMAGING Diagnoses Other symptoms and signs involving the nervous system Procedures MRA CAROTID WO IVCON MRA, NECK; W/O CONTRAST Aric Huston Jr., MD [address] [place] [address] Mr Imaging Referral ID Status Reason Start Date Expiration Date Visits Requested Visits Authorized [id number] Pending Review Auto-Generat ed Referral 2 05/12/2023 1 1 Specialty Diagnoses / Procedures Referred By Contac t Referred To Contact MR IMAGING Diagnoses Other symptoms and signs involving the nervous system Procedures MRA BRAIN WO IVCON MRA, HEAD W/O CONTRAST Aric Huston Jr., MD [facility] [address] Mr Imaging Referral ID Status Reason Start Date Expiration Date Visits Requested Visits Authorized [id number] Pending Review Auto-Generat ed Referral 2 05/12/2023 1 1 Specialty Diagnoses / Procedures Referred By Contac t Referred To Contact MR IMAGING Diagnoses Other symptoms and signs involving the nervous system Procedures MRA CAROTID WO IVCON MRA, NECK; W/O CONTRAST Aric Huston Jr., MD [facility] [address] Mr Imaging [id number] Referral ID Status Reason Start Date Expiration Date V isits Requested Visits Authorized [id number] Closed Auto-Generate d Referral 04/12/2022 05/12/2023 1 1 Specialty Diagnoses / Procedures Referred By Contac t Referred To Contact MR IMAGING Diagnoses Other symptoms and signs involving the nervous system Procedures MRA BRAIN WO IVCON MRA, HEAD W/O CONTRAST Aric Huston Jr., MD [facility] [address] [place] [id number] Referral ID Status Reason Start Date Expiration Date V isits Requested Visits Authorized [id number] Closed Auto-Generate d Referral 04/12/2022 05/12/2023 1 1 Specialty Diagnoses / Procedures Referred By Contac t Referred To Contact MR IMAGING Diagnoses 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 status epilepticus, unspecified epilepsy type (HCC) Procedures MRI BRAIN WO IVCON MRI BRAIN BRAIN STEM W/O CONTRAST MATERIAL Aric Huston Jr., MD [address] [place] [address] [address] [place] [address] [place] [address] Referral ID Status Reason Start Date Expiration Date V isits Requested Visits Authorized [id number] Closed Auto-Generate d Referral 03/08/2022 04/07/2023 1 1 Specialty Diagnoses / Procedures Referred By Contac t Referred To Contact Podiatry Diagnoses Incurvated nail Procedures CONSULT TO PODIATRY OFFICE/OUTPATIENT NEW HIGH MDM 60 MINUTES Jaison Max PA-C [address] [place] [address] Referral ID Status Reason Start Date Expiration Date Visits Requested Visits Authorized [id number] Authorized PCP Requested Referral 11/22/2023 11/21/2024 1 1 Specialty Diagnoses / Procedures Referred By Contac t Referred To Contact US IMAGING Diagnoses Screening for abdominal aortic aneurysm Procedures US SCREENING FOR AAA (2017) US ABDOMINAL AORTA REAL TIME SCREEN STUDY AAA Jaison Max PA-C [address] [place] [address] [place] [id number] Referral ID Status Reason Start Date Expiration Date Visits Requested Visits Authorized [id number] Pending Review Auto-Generat ed Referral 11/22/2023 12/21/2024 1 1 Specialty Diagnoses / Procedures Referred By Contac t Referred To Contact Diagnoses Compression fracture of L1 vertebra, initial encounter (HCC) Procedures [facility] Florinda Stevenson, MOTORIZED SQUAD CAPTAIN.ONCOLOGY RN [address] [place] [address] Referral ID Status Reason Start Date Expiration Date Visits Requested Visits Authorized [id number] New Request PCP Requested Referral 06/22/2024 09/20/2024 [...] 4:00am LAB WORK July 23, 2024 5:00am PENITENTIARY LAB WORK August 27, 2024 4 :00am [...] 4:00am LAB WORK July 23, 2024 5:00am PENITENTIARY LAB WORK August 27, 2024 4 :00am [id number] September 26, 2024 5:1 6am Family History [...] June 3:48pm Living Will No March 06 11:14am Power of Wood Polisher No March 06 11:14am Advance Directive Response Recorded Date/ Time Advance Directives No June 2:48pm Living Will No March 06 10:14am Power of Wood Polisher No March 06 10:14am Advance Directive Response Recorded Date/ Time Living Will No July 09 12:44pm Do you have a Healthcare Power of Wood Polisher? No July 09, 2024 12:44pm Advance Directives [...] or prosecute any alcohol or drug abuse patient.[facility] Hospital[facility] the event this information is protected by the Federal Confidentiality of Alcohol and Drug Abuse Patient Records regulations: The Federal rules restrict any use of the information to criminally investigate or prosecute any alcohol or drug abuse patient.[facility] HospitalIn the event this information is protected by the Federal Confidentiality of Alcohol and Drug Abuse Patient Records regulations: The Federal rules restrict any use of the information to criminally investigate or prosecute any alcohol or drug abuse patient.[facility] HospitalIn the event this information is protected by the Federal Confidentiality of Alcohol and Drug Abuse Patient Records regulations: The Federal rules restrict any use of the information to criminally investigate or prosecute any alcohol or drug abuse patient.[facility] HospitalIn the event this information is protected by the Federal Confidentiality of Alcohol and Drug Abuse Patient Records regulations: The Federal rules restrict any use of the information to criminally investigate or prosecute any alcohol or drug abuse patient.[facility] HospitalIn the event this information is protected by the Federal Confidentiality of Alcohol and Drug Abuse Patient Records regulations: The Federal rules restrict any use of the information to criminally investigate or prosecute any alcohol or drug abuse patient.[facility] HospitalIn the event this information is protected by the Federal Confidentiality of Alcohol and Drug Abuse Patient Records regulations: The Federal rules restrict any use of the information to criminally investigate or prosecute any alcohol or drug abuse patient.[facility] HospitalIn the event this information is protected by the Federal Confidentiality of Alcohol and Drug Abuse Patient Records regulations: The Federal rules restrict any use of the information to criminally investigate or prosecute any alcohol or drug abuse patient.[facility] HospitalIn the event this information is protected by the Federal Confidentiality of Alcohol and Drug Abuse Patient Records regulations: The Federal rules restrict any use of the information to criminally investigate or prosecute any alcohol or drug abuse patient.[facility] HospitalIn the event this information is protected by the Federal Confidentiality of Alcohol and Drug Abuse Patient Records regulations: The Federal rules restrict any use of the information to criminally investigate or prosecute any alcohol or drug abuse patient.[facility] HospitalIn the event this information is protected by the Federal Confidentiality of Alcohol and Drug Abuse Patient Records regulations: The Federal rules restrict any use of the information to criminally investigate or prosecute any alcohol or drug abuse patient.[facility] HospitalIn the event this information is protected by the Federal Confidentiality of Alcohol and Drug Abuse Patient Records regulations: The Federal rules restrict any use of the information to criminally investigate or prosecute any alcohol or drug abuse patient.[facility] HospitalIn the event this information is protected by the Federal Confidentiality of Alcohol and Drug Abuse Patient Records regulations: The Federal rules restrict any use of the information to criminally investigate or prosecute any alcohol or drug abuse patient.[facility] HospitalIn the event this information is protected by the Federal Confidentiality of Alcohol and Drug Abuse Patient Records regulations: The Federal rules restrict any use of the information to criminally investigate or prosecute any alcohol or drug abuse patient.[facility] HospitalIn the event this information is protected by the Federal Confidentiality of Alcohol and Drug Abuse Patient Records regulations: The Federal rules restrict any use of the information to criminally investigate or prosecute any alcohol or drug abuse patient.[facility] HospitalIn the event this information is protected by the Federal Confidentiality of Alcohol and Drug Abuse Patient Records regulations: The Federal rules restrict any use of the information to criminally investigate or prosecute any alcohol or drug abuse patient.[facility] HospitalIn the event this information is protected by the Federal Confidentiality of Alcohol and Drug Abuse Patient Records regulations: The Federal rules restrict any use of the information to criminally investigate or prosecute any alcohol or drug abuse patient.[facility] HospitalIn the event this information is protected by the Federal Confidentiality of Alcohol and Drug Abuse Patient Records regulations: The Federal rules restrict any use of the information to criminally investigate or prosecute any alcohol or drug abuse patient.[facility] HospitalIn the event this information is protected by the Federal Confidentiality of Alcohol and Drug Abuse Patient Records regulations: The Federal rules restrict any use of the information to criminally investigate or prosecute any alcohol or drug abuse patient.[facility] HospitalIn the event this information is protected by the Federal Confidentiality of Alcohol and Drug Abuse Patient Records regulations: The Federal rules restrict any use of the information to criminally investigate or prosecute any alcohol or drug abuse patient.[facility] HospitalIn the event this information is protected by the Federal Confidentiality of Alcohol and Drug Abuse Patient Records regulations: The Federal rules restrict any use of the information to criminally investigate or prosecute any alcohol or drug abuse patient.[facility] HospitalIn the event this information is protected by the Federal Confidentiality of Alcohol and Drug Abuse Patient Records regulations: The Federal rules restrict any use of the information to criminally investigate or prosecute any alcohol or drug abuse patient.[facility] HospitalIn the event this information is protected by the Federal Confidentiality of Alcohol and Drug Abuse Patient Records regulations: The Federal rules restrict any use of the information to criminally investigate or prosecute any alcohol or drug abuse patient.[facility] HospitalIn the event this information is protected by the Federal Confidentiality of Alcohol and Drug Abuse Patient Records regulations: The Federal rules restrict any use of the information to criminally investigate or prosecute any alcohol or drug abuse patient.[facility] HospitalIn the event this information is protected by the Federal Confidentiality of Alcohol and Drug Abuse Patient Records regulations: The Federal rules restrict any use of the information to criminally investigate or prosecute any alcohol or drug abuse patient.[facility] HospitalIn the event this information is protected by the Federal Confidentiality of Alcohol and Drug Abuse Patient Records regulations: The Federal rules restrict any use of the information to criminally investigate or prosecute any alcohol or drug abuse patient.[facility] HospitalIn the event this information is protected by the Federal Confidentiality of Alcohol and Drug Abuse Patient Records regulations: The Federal rules restrict any use of the information to criminally investigate or prosecute any alcohol or drug abuse patient.[facility] HospitalIn the event this information is protected by the Federal Confidentiality of Alcohol and Drug Abuse Patient Records regulations: The Federal rules restrict any use of the information to criminally investigate or prosecute any alcohol or drug abuse patient.[facility] HospitalIn the event this information is protected by the Federal Confidentiality of Alcohol and Drug Abuse Patient Records regulations: The Federal rules restrict any use of the information to criminally investigate or prosecute any alcohol or drug abuse patient.[facility] HospitalIn the event this information is protected by the Federal Confidentiality of Alcohol and Drug Abuse Patient Records regulations: The Federal rules restrict any use of the information to criminally investigate or prosecute any alcohol or drug abuse patient.[facility] HospitalIn the event this information is protected by the Federal Confidentiality of Alcohol and Drug Abuse Patient Records regulations: The Federal rules restrict any use of the information to criminally investigate or prosecute any alcohol or drug abuse patient.[facility] HospitalIn the event this information is protected by the Federal Confidentiality of Alcohol and Drug Abuse Patient Records regulations: The Federal rules restrict any use of the information to criminally investigate or prosecute any alcohol or drug abuse patient.[facility] HospitalIn the event this information is protected by the Federal Confidentiality of Alcohol and Drug Abuse Patient Records regulations: The Federal rules restrict any use of the information to criminally investigate or prosecute any alcohol or drug abuse patient.[facility] HospitalIn the event this information is protected by the Federal Confidentiality of Alcohol and Drug Abuse Patient Records regulations: The Federal rules restrict any use of the information to criminally investigate or prosecute any alcohol or drug abuse patient.[facility] HospitalIn the event this information is protected by the Federal Confidentiality of Alcohol and Drug Abuse Patient Records regulations: The Federal rules restrict any use of the information to criminally investigate or prosecute any alcohol or drug abuse patient.[facility] HospitalIn the event this information is protected by the Federal Confidentiality of Alcohol and Drug Abuse Patient Records regulations: The Federal rules restrict any use of the information to criminally investigate or prosecute any alcohol or drug abuse patient.[facility] Care Teams (unrecognized sec tion and content) Cardroom Drawing Runner Relationship Specialty Start Date End Date Aric Zapien MD [address] [facility] [place] [address] PCP - General Family Practice 07/23/15 Cardroom Drawing Runner Relationship Specialty Start Date End Date Aric Zapien MD [address] [facility] [place] [place] [address] PCP - General Family Practice 07/23/15 Cardroom Drawing Runner Relationship Specialty Start Date End Date Aric Zapien MD [address] [facility] [place] [place] [address] PCP - General Family Medicine 07/23/15 Cardroom Drawing Runner Relationship Specialty Start Date End Date Aric Zapien MD [address] [facility] [place] [place] [address] PCP - General Family Medicine 07/23/15 Cardroom Drawing Runner Relationship Specialty Start Date End Date Aric Zapien MD [address] [facility] [place] [place] [address] PCP - General Family Medicine 07/23/15 Cardroom Drawing Runner Relationship Specialty Start Date End Date Aric Zapien MD [address] [facility] [place] [address] PCP - General Family Medicine 07/23/15 Cardroom Drawing Runner Relationship Specialty Start Date End Date Aric Zapien MD [address] [facility] [place] [address] PCP - General Family Medicine 07/23/15 Cardroom Drawing Runner Relationship Specialty Start Date End Date Aric Zapien MD [address] [facility] [place] [address] PCP - General Family Medicine 07/23/15 Cardroom Drawing Runner Relationship Specialty Start Date End Date Aric Zapien MD [address] [facility] [place] [address] PCP - General Family Medicine 07/23/15 Cardroom Drawing Runner Relationship Specialty Start Date End Date Aric Zapien MD [address] [facility] [place] [address] PCP - General Family Medicine 07/23/15 Cardroom Drawing Runner Relationship Specialty Start Date End Date Aric Zapien MD [address] [facility] [place] [place] [address] PCP - General Family Medicine 07/23/15 Cardroom Drawing Runner Relationship Specialty Start Date End Date Aric Zapien MD [address] [facility] [place] [address] PCP - General Family Medicine 07/23/15 Cardroom Drawing Runner Relationship Specialty Start Date End Date Aric Zapien MD [address] [facility] [place] [address] PCP - General Family Medicine 07/23/15 Cardroom Drawing Runner Relationship Specialty Start Date End Date Aric Zapien MD [address] [facility] [place] [address] PCP - General Family Medicine 07/23/15 Cardroom Drawing Runner Relationship Specialty Start Date End Date Aric Zapien MD [address] [facility] [place] [address] PCP - General Family Medicine 07/23/15 Cardroom Drawing Runner Relationship Specialty Start Date End Date Aric Zapien MD [address] [facility] [place] [address] PCP - General Family Medicine 07/23/15 Cardroom Drawing Runner Relationship Specialty Start Date End Date Aric Zapien MD [address] [facility] [place] [address] PCP - General Family Medicine 07/23/15 Cardroom Drawing Runner Relationship Specialty Start Date End Date Aric Zapien MD [address] [facility] [place] [address] PCP - General Family Medicine 07/23/15 Team Status: Active Member Role Status Dates Dr. Aric Zapien MD Family Provider Active Dr. Aric Zapien MD Primary Care Provider Active Team Status: Inactive Member Role Status Dates Dr. Aric Zapien MD Primary Care Provider, Referring Provider Active Rakel Hodgson AIRLINE DISPATCHER, AIRLINE DISPATCHER-C Attending Provider Active Team Status: Inactive Member Role Status Dates Dr. Aric Zapien MD Primary Care Provider Active Rakel Hodgson AIRLINE DISPATCHER, AIRLINE DISPATCHER-C Attending Provider, Referring Juan mejia Active Cardroom Drawing Runner Relationship Specialty Start Date End Date Aric Zapien MD [address] [facility] [place] [address] PCP - General Family Medicine 07/23/15 Cardroom Drawing Runner Relationship Specialty Start Date End Date Aric Zapien MD [address] [place] [address] PCP - General Family Medicine 07/23/15 Cardroom Drawing Runner Relationship Specialty Start Date End Date Aric Zapien MD [address] [facility] [facility] [address] PCP - General Family Medicine 07/23/15 Cardroom Drawing Runner Relationship Specialty Start Date End Date Aric Zapien MD [address] [facility] [place] [address] PCP - General Family Medicine 07/23/15 Cardroom Drawing Runner Relationship Specialty Start Date End Date Aric Zapien MD [address] [facility] [place] [address] PCP - General Family Medicine 07/23/15 Cardroom Drawing Runner Relationship Specialty Start Date End Date Aric Zapien MD [address] [facility] [place] [address] PCP - General Family Medicine 07/23/15 Cardroom Drawing Runner Relationship Specialty Start Date End Date Aric Zapien MD [address] [facility] [place] [address] PCP - General Family Medicine 07/23/15 Cardroom Drawing Runner Relationship Specialty Start Date End Date Aric Zapien MD [address] [facility] [place] [address] PCP - General Family Medicine 07/23/15 Meenakshi Galaviz, MOTORIZED SQUAD CAPTAIN.ONCOLOGY RN [address] [facility] [place] [address] Piano Tuner Family Medicine 05/07/24 Cardroom Drawing Runner Relationship Specialty Start Date End Date Aric Zapien MD [address] [facility] [place] [address] PCP - General Family Medicine 07/23/15 Meenakshi Galaviz, MOTORIZED SQUAD CAPTAIN.ONCOLOGY RN [address] [facility] [place] [address] Piano Tuner Family Medicine 05/07/24 Florinda Stevenson MOTORIZED SQUAD CAPTAIN.ONCOLOGY RN [address] [facility] [place] [address] Piano Tuner Family Medicine 05/07/24 Cardroom Drawing Runner Relationship Specialty Start Date End Date Aric Zapien MD [address] [facility] [place] [address] PCP - General Family Medicine 07/23/15 Meenakshi Galaviz, MOTORIZED SQUAD CAPTAIN.ONCOLOGY RN [address] [facility] [place] [address] Piano Tuner Family Medicine 05/07/24 Florinda Stevenson MOTORIZED SQUAD CAPTAIN.ONCOLOGY RN [address] [place] [address] Piano Tuner Family Medicine 05/07/24 Cardroom Drawing Runner Relationship Specialty Start Date End Date Aric Zapien MD [address] [place] [address] PCP - General Family Medicine 07/23/15 Meenakshi Galaviz APRN.ONCOLOGY RN [address] [place] [address] Piano Tuner Family Medicine 05/07/24 Florinda Stevenson APRN.ONCOLOGY RN [address] [place] [address] Piano Tuner [facility] 05/07/24 Cardroom Drawing Runner Relationship Specialty Start Date End Date Aric Zapien MD [address] [place] [address] PCP - General Family Medicine 07/23/15 Meenakshi Galaviz MOTORIZED SQUAD CAPTAIN.ONCOLOGY RN [address] [place] [address] Piano Tuner Family Medicine 05/07/24 Florinda Stevenson MOTORIZED SQUAD CAPTAIN.ONCOLOGY RN [address] [place] [address] Piano Tuner Family Medicine 05/07/24 Cardroom Drawing Runner Relationship Specialty Start Date End Date Aric Zapien MD [address] [place] [address] PCP - General Family Medicine 07/23/15 Meenakshi Galaviz MOTORIZED SQUAD CAPTAIN.ONCOLOGY RN [address] [place], [place] [address] [facility] 05/07/24 Florinda Stevenson APRN.ONCOLOGY RN [address] [place], [place] [address] [facility] 05/07/24 Cardroom Drawing Runner Relationship Specialty Start Date End Date Aric Zapien MD [address] [place], [place] [id number] PCP - General Family Medicine 07/23/15 Meenakshi Galaviz APRN.ONCOLOGY RN [address] [place], [place] [id number] [facility] 05/07/24 Florinda Stevenson APRN.ONCOLOGY RN [address] [place], [place] [id number] [facility] 05/07/24 Team Status: Active Member Role Status [...] September 26, 2024 End: September 26, 2024 Cardroom Drawing Runner Relationship Specialty Start Date End Date Aric Zapien MD [address] [place], [place] [id number] PCP - General Family Medicine 07/23/15 Meenakshi Galaviz APRN.ONCOLOGY RN [address] [place], [place] [id number] Piano Tuner Family Medicine 05/07/24 Florinda Stevenson MOTORIZED SQUAD CAPTAIN.ONCOLOGY RN [address] [place], [place] [id number] Piano Tuner Family Medicine 05/07/24 Reason for Visit (unrecogniz ed section and content) Reason Comments Diabetes Specialty Diagnoses / Procedures Referred By Contac t Referred To Contact Family Practice / FAMILY MEDICINE Diagnoses 6 month follow up Procedures 4C EST Aric Zapien MD [address] [place] [address] Aric Zapien MD [address] [place] [address] Referral ID Status Reason Start Date Expiration Date V isits Requested Visits Authorized [id number] Closed Financial Clearance Required - OON Payor Patient Cleared INN/SMCP Payor Auth Obtained 09/24/2021 05/29/2022 1 1 Reason Onset Date Comments Refill Request 03/04/2022 Reason Comments Follow Up Specialty Diagnoses / Procedures Referred By Contac t Referred To Contact Neurology / FAMILY MEDICINE Diagnoses Seizures (HCC) Procedures CONSULT TO NEUROLOGY OFFICE/OUTPATIENT [facility] 60-74 MINUTES Aric Zapien MD [address] [place] [address] [facility] [address] [place] [address] Referral ID Status Reason Start Date Expiration Date V isits Requested Visits Authorized [id number] Closed PCP Requested Referral 12/25/2021 05/29/2022 1 1 Reason Comments Medicare Wellness Exam Reason Comments Orders Reason Onset Date Comments ACM COLEMAN RN 02/23/2022 SPC/SUPD rev. per request 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 Procedures CONSULT TO OPHTHALMOLOGY OFFICE/OUTPATIENT [facility] 60-74 MINUTES Jaison Max PA-C [address] [place] [address] Referral ID Status Reason Start Date Expiration Date V isits Requested Visits Authorized [id number] Closed PCP Requested Referral 03/09/2022 03/09/2023 1 1 Reason Comments Orders Reason Comments Results Reason Onset Date Comments ACM COLEMAN RN 06/11/2022 Medication Ad herence review per request of payer Reason Comments Refill Request Reason Comments 6 Month Exam Reason Comments Sore Throat ST and cough x 2 day s Specialty Diagnoses / Procedures Referred By Contalphonse t Referred To Contact MR IMAGING Diagnoses 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 status epilepticus, unspecified epilepsy type (HCC) Procedures MRI BRAIN WO IVCON MRI BRAIN BRAIN STEM W/O CONTRAST MATERIAL Aric Huston Jr., MD [address] [facility] [address] [place] [address] [place] [id number] Referral ID Status Reason Start Date Expiration Date V isits Requested Visits Authorized [id number] Closed Auto-Generate d Referral 03/08/2022 04/07/2023 1 [...] content) DATE CREATED AUTHOR 06/27/2024 [facility] DATE CREATED AUTHOR AUTHOR'S ORGANIZ ATION 10/27/2024 [facility] DATE CREATED AUTHOR AUTHOR'S ORGANIZ ATION 01/04/2025 [facility] FOR RECORDS PERTAINING TO PATIENTS WHO [...] BE BASED ON THE PRIMARY CLINICAL RECORDS. [employer] [facility]. provides no warranty or guarantee of the accuracy or completeness of information in this document.
[2025-01-11 07:33] LABS: Color, Urine Yellow (Yellow); Glucose, Dipstick Normal (Normal); Ketone-Dipstick 5 mg/dl (Negative); Leukocyte Esterase-Dipstick 25 /ul (Negative); Nitrite-Dipstick Negative (Negative); Occult Blood-Urine Negative /ul (Negative); Protein-Dipstick 30 mg/dl (Negative); Specific Gravity, Urine 1.025 (1.002-1.030); Urine Bilirubin Dipstick Negative (Negative)
[2025-01-11 07:52] LABS: Calcium Oxalate Crystals Ur 2+ /hpf (<or=2+)
== END ==
LOC: OLS.SWAL 21:50
PROVIDERS: PCP Family Medicine; Visit Provider Internal Medicine
DX: N39.0 Urinary tract infection, site not specified (principal)
CPT/HCPCS: 81001; 87086; 87088

== ENCOUNTER → 2025-01-21 | Outpatient (REF) | payer MEDICARE, MEDICAID, SELFPAY ==
--- OUTSIDE RECORDS SUMMARY | 2025-01-21 03:35 | XMS RPT_ITS | CCD ---
Author Organization [facility] Care Team Providers Care Heel Scourer Name Role Phone Aric Zapien MD Primary Care Provider Dr. Aric Zapien Primary Care Provider Dr. Aric Zapien Referring Provider Gokul [employer], AYLIN [place] Attending Provider Aric Zapien MD Primary Care Provider Haagen LOGGING SPECIALIST.STABLE CLEANER, Meenakshi Unavailable Suppan LOGGING SPECIALIST.STABLE CLEANER, Florinda A Unavailable Suppan LOGGING SPECIALIST.STABLE CLEANER, Florinda A Unavailable Dr. Aric Zapien MD [...] STEVENSON Attending Unavailable RENUKA MAX Attending Unavailable [facility] Primary Care Unavailable Gudla OLS, Jigna Attending Unavailable [facility] Primary Care Unavailable Gudla OLS, Jigna Attending Unavailable [facility] Primary Care Unavailable Gudla OLS, Jigna Attending Unavailable [facility] Primary Care Unavailable Gudla OLS, Jigna Attending Unavailable [facility] Primary Care Unavailable Gudla OLS, Jigna Referring Unavailable Gudla OLS, Jigna Attending Unavailable [facility] Primary Care Unavailable Jobrett, Yann Attending Unavailable [facility] Primary Care Unavailable Jopperi, Yann Admitting Unavailable Jobrett, Yann Attending Unavailable [facility] Primary Care Unavailable Silva, Yann Consulting Unavailable Estuardo Irby Attending Unavailabl [facility] Primary Care Unavailable Yann Miller Attending Unavailable [place] Primary Care Unavailable Priscilla Reynaga Referring Unavailable Gudla OLS, Jigna Attending Unavailable [facility] Primary Care Unavailable Gudla OLS, Jigna Attending Unavailable [facility] Primary Care Unavailable Gudla OLS, Jigna Attending Unavailable [facility] Primary Care Unavailable Gudla OLS, Jigna Referring Unavailable Gudla OLS, Jigna Attending Unavailable [facility] Primary Care Unavailable Gudla OLS, Jigna Attending Unavailable [facility] Primary Care Unavailable [facility] Primary Care Unavailable Jobrett, Yann Admitting Unavailable Jobrett, Yann Attending Unavailable Allergies Allergy Classification Reported Allergen(s) Allergy Type Date of Onset Reaction(s) Facility (20 sources) Contrast media; Translations: [DYE] Drug Intolerance 03-02-20 16 Other: See Comments [facility] Work Phone: (4 sources) Triiodobenzoic Acids Allergy to substance 03-06-20 Anaphylaxis [facility] Comment on above: used for heart cath (1 source) Iodinated Contrast Media Drug allergy (disorder) 07-09-19 25 [facility] Repository Medications Current Medications Medication Drug Class(es) [...] complication, without long-term current use of insulin ([facility]) Glucose Meter of Choice - Kit - [...] complication, without long-term current use of insulin ([facility]) Take 1 tablet by mouth once daily. For kidneys 90 tablet 3 06/25/2024 06/25/2025 Active 24 hr metFORMIN hydrochloride 500 mg extended release oral tablet (20 sources) Biguanide Start: 11-16-19 End: 11-22-19 take 1 tablet by mouth once daily at breakfast metFORMIN ER (GLUCOPHAGE XR) 500 mg 24 hr tablet Indications: Type 2 diabetes mellitus without complication, without long-term current use of insulin ([facility]) Take 1 tablet by mouth daily with breakfast. 90 tablet 3 11/22/2023 Active Start: 03-26-2021 End: 09-15-2022 take 1 tablet by mouth once daily at breakfast metFORMIN ER (GLUCOPHAGE XR) 500 mg 24 hr tablet Indications: Type 2 diabetes mellitus without complication, without long-term current use of insulin ([facility]) Take 1 tablet by mouth daily with [...] 10 mL injection (DEFINITY) (13 sources) Start: End: 4 perflutren lipid microspheres 1.3 mL [...] on above: Take 1 capsule by [facility] once daily. folic acid/multivit-min/ lutein [...] Comment on above: [facility] guaifenesin/dextrometh orphan (DEXTROMETHORPHAN-GUAI FENESIN [...] 15, 2013 1:00am September 17, 2014 9:30am Az-Qqj-Vdreg-K1-Lycop en-Lutein (Centrum Silver Men) 300-600-300 mcg tablet (3 sources) Start: 11-15-2022 End: 11-17-2022 Wr-Vja-Hocci-R1-Kftczkv-Ccbh in (Centrum Silver Men) 300-600-300 mcg tablet Discontinued 1 {tbl} PO DAILY November 15, 2022 12:00am November 17, 2022 3:04pm Start: 11-15-2022 End: 11-17-2022 take 300-600 tablets by mouth once daily Wb-Aeo-Uwxhv-S1-Iqtifbb-Csicwk (Centrum Silver Men) 300-600-300 mcg tablet Discontinued [...] Atrial fibrillation; Translations: [Unspecified atrial fibrillation] Onset: 11-14-2024 07-26-2017 Chronic Cataract (1 source) Bilateral senile [...] unguium] Episodic Other aftercare (1 source) Other residential (current) drug therapy; Translations: [Other residential (current) drug therapy] Onset: 01-10-2025 Episodic Other and ill-defined cerebrovascular disease (4 [...] source) Tremor, unspecified; Translations: [Tremor, unspecified] Onset: 01-10-2025 Episodic Other non-traumatic joint disorders (1 source) [...] sources) Long-term current use of anticoagulant; Translations: [long term acute care registered nurse (current) use of anticoagulants] Onset: 09-30-2022 09-30-2022 Episodic Other aftercare (1 source) long term acute care registered nurse (current) use of anticoagulants; Translations: [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] Onset: 09-30-2022 [...] Test Name Value Interpretation Reference Range Facility Urine Cultureon 01-13-2025 URC 133 Below infection level. Clinical correlation necessary, Possible skin contamination. Coag Negative Staph [place] Count <1000 Normal [facility] Comment on above: Performed By: #### L 500.4050, L503.6005, L300.8000, L100.0100, L501.5425 #### [facility] [address] [place], [address] Urinalysis, Completeon 01-11 CA OX CRYSTAL 2+ /hpf Normal [facility] Comment on above: Order Comment: Y Performed By: #### L 500.4050, L503.6005, L300.8000, L100.0100, L501.5425 #### [facility] [address] [place], [address] BACTERIA 0 SEEN Normal None Seen [facility] Comment on above: Order Comment: Y Performed By: #### L 500.4050, L503.6005, L300.8000, L100.0100, L501.5425 #### [facility] [address] [place], [address] EPI,SQUAMOUS 0 SEEN Normal 0-5 [facility] Comment on above: Order Comment: Y Performed By: #### L 500.4050, L503.6005, L300.8000, L100.0100, L501.5425 #### [facility] [address] [place], [address] Mucus Ql (Urine sed) 0 SEEN Normal [facility] Comment on above: Order Comment: Y Performed By: #### L 500.4050, L503.6005, L300.8000, L100.0100, L501.5425 #### [facility] [address] [place], [address] RBC 0 SEEN Normal 0-5 [facility] Comment on above: Order Comment: Y Performed By: #### L 500.4050, L503.6005, L300.8000, L100.0100, L501.5425 #### [facility] [address] [place], [address] WBC 0 SEEN Normal 0-5 [facility] Comment on above: Order Comment: Y Performed By: #### L 500.4050, L503.6005, L300.8000, L100.0100, L501.5425 #### [facility] [address] [place], [address] CBC-Complete Blood Cnt No Di ffon 01-02-2025 Erythrocyte distribution width (RBC) [Ratio] 13.2 % Normal 11.6-14.6 [facility] Comment on above: Order Comment: Y Performed By: #### L 500.4050, L503.6005, L300.8000, L100.0100, L501.5425 #### [facility] [address] [place], [address] Hematocrit (Bld) [Volume fraction] 42.3 % Normal 40-54 [facility] Comment on above: Order Comment: Y Performed By: #### L 500.4050, L503.6005, L300.8000, L100.0100, L501.5425 #### [facility] [address] [place], [address] Hemoglobin (Bld) [Mass/Vol] 13.9 g/dL Normal 13.0-16.5 [facility] Comment on above: Order Comment: Y Performed By: #### L 500.4050, L503.6005, L300.8000, L100.0100, L501.5425 #### [facility] [address] [place], [address] MCH (RBC) [Entitic mass] 31.1 pg Normal 27.0-32.0 [facility] Comment on above: Order Comment: Y Performed By: #### L 500.4050, L503.6005, L300.8000, L100.0100, L501.5425 #### [facility] [address] [place], [address] MCHC (RBC) [Mass/Vol] 32.9 g/dL Normal 32-36 [facility] Comment on above: Order Comment: Y Performed By: #### L 500.4050, L503.6005, L300.8000, L100.0100, L501.5425 #### [facility] [address] [place], [address] MCV (RBC) [Entitic vol] 94.6 fL High 80-[address] [facility] Comment on above: Order Comment: Y Performed By: #### L 500.4050, L503.6005, L300.8000, L100.0100, L501.5425 #### [facility] [address] [place], [address] Platelet mean volume (Bld) [Entitic vol] 11.5 fL Normal 6.2-12.0 [facility] Comment on above: Order Comment: Y Performed By: #### L 500.4050, L503.6005, L300.8000, L100.0100, L501.5425 #### [facility] [address] [place], [address] Platelets (Bld) [#/Vol] 215 10*3/uL Normal 150-450 [facility] Comment on above: Order Comment: Y Performed By: #### L 500.4050, L503.6005, L300.8000, L100.0100, L501.5425 #### [facility] [address] [place], [address] RBC (Bld) [#/Vol] 4.47 10*6/uL Low 4.6-6.2 [facility] Comment on above: Order Comment: Y Performed By: #### L 500.4050, L503.6005, L300.8000, L100.0100, L501.5425 #### [facility] [address] [place], [address] RDW SD 45.1 fl High 35.1-43.9 [facility] Comment on above: Order Comment: Y Performed By: #### L 500.4050, L503.6005, L300.8000, L100.0100, L501.5425 #### [facility] [address] [place], [address] WBC (Bld) [#/Vol] 7.4 10*3/uL Normal 4.4-11.0 [facility] Comment on above: Order Comment: Y Performed By: #### L 500.4050, L503.6005, L300.8000, L100.0100, L501.5425 #### [facility] [address] [place], [address] Comprehensive Metabolic Prof [facility] 01-02-2025 Albumin [Mass/Vol] 4.0 g/dL Normal 3.4-4.8 [facility] Comment on above: Order Comment: Y Performed By: #### L 500.4050, L503.6005, L300.8000, L100.0100, L501.5425 #### [facility] [address] [place], [address] Albumin/Globulin [Mass ratio] 1.8 {ratio} Normal 0.9-2.4 [facility] Comment on above: Order Comment: Y Performed By: #### L 500.4050, L503.6005, L300.8000, L100.0100, L501.5425 #### [facility] [address] [place], [address] ALK PHOS 59 U/L Normal 40-129 [facility] Comment on above: Order Comment: Y Performed By: #### L 500.4050, L503.6005, L300.8000, L100.0100, L501.5425 #### [facility] [address] [place], [address] ALT [Catalytic activity/Vol] 8 U/L Normal <=46 [facility] Comment on above: Order Comment: Y Performed By: #### L 500.4050, L503.6005, L300.8000, L100.0100, L501.5425 #### [facility] [address] [place], [address] AST [Catalytic activity/Vol] 17 U/L Normal <=37 [facility] Comment on above: Order Comment: Y Performed By: #### L 500.4050, L503.6005, L300.8000, L100.0100, L501.5425 #### [facility] [address] [place], [address] Bilirubin [Mass/Vol] 0.23 mg/dL Normal 0.00-1.30 [facility] Comment on above: Order Comment: Y Performed By: #### L 500.4050, L503.6005, L300.8000, L100.0100, L501.5425 #### [facility] [address] [place], [address] BUN/CRE 21.2 RATIO High 10-20 [facility] Comment on above: Order Comment: Y Performed By: #### L 500.4050, L503.6005, L300.8000, L100.0100, L501.5425 #### [facility] [address] [place], [address] Calcium [Mass/Vol] 9.1 mg/dL Normal 7.6-11.0 [facility] Comment on above: Order Comment: Y Performed By: #### L 500.4050, L503.6005, L300.8000, L100.0100, L501.5425 #### [facility] [address] [place], [address] Chloride [Moles/Vol] 106 mmol/L Normal 98-108 [facility] Comment on above: Order Comment: Y Performed By: #### L 500.4050, L503.6005, L300.8000, L100.0100, L501.5425 #### [facility] [address] [place], [address] CO2 [Moles/Vol] 25.3 mmol/L Normal 21.0-32.0 [facility] Comment on above: Order Comment: Y Performed By: #### L 500.4050, L503.6005, L300.8000, L100.0100, L501.5425 #### [facility] [address] [place], [address] Creatinine [Mass/Vol] 1.35 mg/dL High 0.70-1.20 [facility] Comment on above: Order Comment: Y Performed By: #### L 500.4050, L503.6005, L300.8000, L100.0100, L501.5425 #### [facility] [address] [place], [address] GAP 11 Normal 5-15 [facility] Comment on above: Order Comment: Y Performed By: #### L 500.4050, L503.6005, L300.8000, L100.0100, L501.5425 #### [facility] [address] [place], [address] GFR/1.73 sq M.predicted among non-blacks MDRD (S/P/Bld) [Vol rate/Area] 58 mL/min/{1.73_m2} Low >60 [facility] Comment on above: Order Comment: Y Result Comment: mL/m in/1.73m2 CKD-EPI Creatinine Equation (2020) Performed By: #### L 500.4050, L503.6005, L300.8000, L100.0100, L501.5425 #### [facility] [address] [place], [address] Globulin (S) [Mass/Vol] 2.2 g/dL Normal 2.2-4.2 [facility] Comment on above: Order Comment: Y Performed By: #### L 500.4050, L503.6005, L300.8000, L100.0100, L501.5425 #### [facility] [address] [place], [address] Glucose [Mass/Vol] 95 mg/dL Normal 70-99 [facility] Comment on above: Order Comment: Y Performed By: #### L 500.4050, L503.6005, L300.8000, L100.0100, L501.5425 #### [facility] [address] [place], [address] Potassium [Moles/Vol] 4.7 mmol/L Normal 3.3-5.1 [facility] Comment on above: Order Comment: Y Performed By: #### L 500.4050, L503.6005, L300.8000, L100.0100, L501.5425 #### [facility] [address] [place], [address] Sodium [Moles/Vol] 143 mmol/L Normal 133-145 [facility] Comment on above: Order Comment: Y Performed By: #### L 500.4050, L503.6005, L300.8000, L100.0100, L501.5425 #### [facility] [address] [place], [address] T PROT 6.2 g/dL Normal 5.9-8.4 [facility] Comment on above: Order Comment: Y Performed By: #### L 500.4050, L503.6005, L300.8000, L100.0100, L501.5425 #### [facility] [address] [place], [address] Urea nitrogen [Mass/Vol] 29 mg/dL High 4-19 [facility] Comment on above: Order Comment: Y Performed By: #### L 500.4050, L503.6005, L300.8000, L100.0100, L501.5425 #### [facility] [address] [place], [address] Valproic Acid (Depakene) Lev cecil 01-02-2025 VALPROIC ACID 73 ug/mL Normal 50-100 [facility] Comment on above: Order Comment: Y Result Comment: Valp roic Acid concentrations >100 ug/mL are potentially toxic. Performed By: #### L 500.4050, L503.6005, L300.8000, L100.0100, L501.5425 #### [facility] [address] [place], [address] Phenytoin (Dilantin) Levelon 11-27-2024 Phenytoin [Mass/Vol] 1.0 ug/mL Low 10.0-20.0 [facility] Comment on above: Order Comment: [...] By: #### L 501.7700 #### [facility] [address] [place], [place], [address] [id number] 11-08-2024 [facility]. COMMENT Normal . [facility] Comment on above: Order Comment: Y Result Comment: Test Ordered: [id number] Diltiazem(Cardizem,Dilacor) S Diltiazem <20 [L ] ng/ml MX Reference Range: 50 - 200 Note: Analysis performed on a micro-specimen. This test was developed and its performance characteristics determined by [employer]. It has not been cleared or approved by the Food and Drug Administration. Performed at: [facility] [address] [place] [id number] Lube Attendant: Carly Azar PhrIL, Phone: [phone] Performed at: [address] [id number] Lube Attendant: Enrico Berg PhD, Phone: [phone] Performed By: #### L 500.4050, L503.6005, L300.8000, L100.0100, L501.5425 #### [facility] [address] [place], [address] [id number] 10-30-2024 [facility]. COMMENT Normal . [facility] Comment on above: Order Comment: [id number], Serum or Plasma Result Comment: Test Ordered: [id number] Diltiazem(Cardizem,Dilacor) S Diltiazem ng/ml MX Reference Range: . Test not performed Initial assay failure. Insufficient specimen volume to repeat analysis. Performed at: [facility] [address] [place] [address] [id number] Lube Attendant: Carly Byrd, Phone: [phone] Performed at: [address] [id number] Lube Attendant: Enrico Berg PhD, Phone: [phone] Performed By: #### L 500.4050, L503.6005, L300.8000, L100.0100, L501.5425 #### [facility] [address] 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 *09/30/2022 Migraine headache [G43.909] 09/30/2022 Need for Streptococcus pneumoniae vaccination [*09/30/2022 Neoplasm of uncertain behavior of skin [D48.5] 09/30/2022 Noncompliance with treatment [Z91.199] 09/30/2022 Other polyp of sinus [J33.8] 09/30/2022 Pulmonary hypertension (HCC) [I27.20] 09/30/2022 Syncope and collapse [R55] 09/30/2022 09/30/2022 Undiagnosed cardiac murmurs [R01.1] 09/30/2022 09/30/2022 History of skull fracture [Z87.81] 09/30/2022 Letter Text Encounter Status:Closed by JULIO CESARJOSEEsperanzaDONTAEA on 10/25/24 Normal [facility] CBC W/Diff, Automatedon 05- Absolute Lymph 2.10 X10 3/uL Normal 0.83-4.51 [facility] Comment on above: Order Comment: Y Performed By: #### L 500.4050, L503.6005, L300.8000, L100.0100, L501.5425 #### [facility] [address] [place], [address] Absolute Neut 3.2 X10 3/uL Normal 2.0-7.7 [facility] Comment on above: Order Comment: Y Performed By: #### L 500.4050, L503.6005, L300.8000, L100.0100, L501.5425 #### [facility] [address] [place], [address] Basophils/100 WBC (Bld) 0.6 % Normal 0-[address] [facility] Comment on above: Order Comment: Y Performed By: #### L 500.4050, L503.6005, L300.8000, L100.0100, L501.5425 #### [facility] [address] [place], [address] Eosinophils/100 WBC (Bld) 5.3 % High 0-5 [facility] Comment on above: Order Comment: Y Performed By: #### L 500.4050, L503.6005, L300.8000, L100.0100, L501.5425 #### [facility] [address] [place], [address] Erythrocyte distribution width (RBC) [Ratio] 15.0 % High 11.6-14.6 [facility] Comment on above: Order Comment: Y Performed By: #### L 500.4050, L503.6005, L300.8000, L100.0100, L501.5425 #### [facility] [address] [place], [address] Hematocrit (Bld) [Volume fraction] 42.2 % Normal 40-54 [facility] Comment on above: Order Comment: Y Performed By: #### L 500.4050, L503.6005, L300.8000, L100.0100, L501.5425 #### [facility] [address] [place], [address] Hemoglobin (Bld) [Mass/Vol] 13.7 g/dL Normal 13.0-16.5 [facility] Comment on above: Order Comment: Y Performed By: #### L 500.4050, L503.6005, L300.8000, L100.0100, L501.5425 #### [facility] [address] [place], [address] IG% 0.500 Normal 0.0-0.9 [facility] Comment on above: Order Comment: Y Result Comment: IG% - Immature Granulocytes (promyelocytes, myelocytes and metamyelocytes) > 1% indicates that a LEFT SHIFT is Present. Performed By: #### L 500.4050, L503.6005, L300.8000, L100.0100, L501.5425 #### [facility] [address] [place], [address] Lymphocytes/100 WBC (Bld) 33.4 % Normal 19-41 [facility] Comment on above: Order Comment: Y Performed By: #### L 500.4050, L503.6005, L300.8000, L100.0100, L501.5425 #### [facility] [address] [place], [address] MCH (RBC) [Entitic mass] 30.7 pg Normal 27.0-32.0 [facility] Comment on above: Order Comment: Y Performed By: #### L 500.4050, L503.6005, L300.8000, L100.0100, L501.5425 #### [facility] [address] [place], [address] MCHC (RBC) [Mass/Vol] 32.5 g/dL Normal 32-36 [facility] Comment on above: Order Comment: Y Performed By: #### L 500.4050, L503.6005, L300.8000, L100.0100, L501.5425 #### [facility] [address] [place], [address] MCV (RBC) [Entitic vol] 94.6 fL High 80-[address] [facility] Comment on above: Order Comment: Y Performed By: #### L 500.4050, L503.6005, L300.8000, L100.0100, L501.5425 #### [facility] [address] [place], [address] Monocytes/100 WBC (Bld) 9.4 % Normal 0-10 [facility] Comment on above: Order Comment: Y Performed By: #### L 500.4050, L503.6005, L300.8000, L100.0100, L501.5425 #### [facility] [address] [place], [address] Neutrophils/100 WBC (Bld) 50.8 % Normal 47-70 [facility] Comment on above: Order Comment: Y Performed By: #### L 500.4050, L503.6005, L300.8000, L100.0100, L501.5425 #### [facility] [address] [place], [address] Nucleated RBC (Bld) [#/Vol] 0 10*3/uL Normal 0-5 [facility] Comment on above: Order Comment: Y Performed By: #### L 500.4050, L503.6005, L300.8000, L100.0100, L501.5425 #### [facility] [address] [place], [address] Platelet mean volume (Bld) [Entitic vol] 10.9 fL Normal 6.2-12.0 [facility] Comment on above: Order Comment: Y Performed By: #### L 500.4050, L503.6005, L300.8000, L100.0100, L501.5425 #### [facility] [address] [place], [address] Platelets (Bld) [#/Vol] 236 10*3/uL Normal 150-450 [facility] Comment on above: Order Comment: Y Performed By: #### L 500.4050, L503.6005, L300.8000, L100.0100, L501.5425 #### [facility] [facility] [address] [place], [address] RBC (Bld) [#/Vol] 4.46 10*6/uL Low 4.6-6.2 [facility] Comment on above: Order Comment: Y Performed By: #### L 500.4050, L503.6005, L300.8000, L100.0100, L501.5425 #### [facility] [address] [place], [address] RDW SD 52.3 fl High 35.1-43.9 [facility] Comment on above: Order Comment: Y Performed By: #### L 500.4050, L503.6005, L300.8000, L100.0100, L501.5425 #### [facility] [address] [place], [address] WBC (Bld) [#/Vol] 6.3 10*3/uL Normal 4.4-11.0 [facility] Comment on above: Order Comment: Y Performed By: #### L 500.4050, L503.6005, L300.8000, L100.0100, L501.5425 #### [facility] [address] [place], [address] Comprehensive Metabolic Prof ilon 10-23-2024 Albumin [Mass/Vol] 4.2 g/dL Normal 3.4-4.8 [facility] Comment on above: Order Comment: Y Performed By: #### L 500.4050, L503.6005, L300.8000, L100.0100, L501.5425 #### [facility] [address] [place], [address] Albumin/Globulin [Mass ratio] 1.7 {ratio} Normal 0.9-2.4 [facility] Comment on above: Order Comment: Y Performed By: #### L 500.4050, L503.6005, L300.8000, L100.0100, L501.5425 #### [facility] [address] [place], [address] ALK PHOS 63 U/L Normal 40-129 [facility] Comment on above: Order Comment: Y Performed By: #### L 500.4050, L503.6005, L300.8000, L100.0100, L501.5425 #### [facility] [address] [place], [address] ALT [Catalytic activity/Vol] 13 U/L Normal <=46 [facility] Comment on above: Order Comment: Y Performed By: #### L 500.4050, L503.6005, L300.8000, L100.0100, L501.5425 #### [facility] [address] [place], [address] AST [Catalytic activity/Vol] 16 U/L Normal <=37 [facility] Comment on above: Order Comment: Y Performed By: #### L 500.4050, L503.6005, L300.8000, L100.0100, L501.5425 #### [facility] [address] [place], [address] Bilirubin [Mass/Vol] 0.30 mg/dL Normal 0.00-1.30 [facility] Comment on above: Order Comment: Y Performed By: #### L 500.4050, L503.6005, L300.8000, L100.0100, L501.5425 #### [facility] [address] [place], [address] BUN/CRE 18.7 RATIO Normal 10-20 [facility] Comment on above: Order Comment: Y Performed By: #### L 500.4050, L503.6005, L300.8000, L100.0100, L501.5425 #### [facility] [address] [place], [address] Calcium [Mass/Vol] 9.4 mg/dL Normal 7.6-11.0 [facility] Comment on above: Order Comment: Y Performed By: #### L 500.4050, L503.6005, L300.8000, L100.0100, L501.5425 #### [facility] [address] [place], [address] Chloride [Moles/Vol] 106 mmol/L Normal 98-108 [facility] Comment on above: Order Comment: Y Performed By: #### L 500.4050, L503.6005, L300.8000, L100.0100, L501.5425 #### [facility] [address] [place], [address] CO2 [Moles/Vol] 24.9 mmol/L Normal 21.0-32.0 [facility] Comment on above: Order Comment: Y Performed By: #### L 500.4050, L503.6005, L300.8000, L100.0100, L501.5425 #### [facility] [address] [place], [address] Creatinine [Mass/Vol] 1.27 mg/dL High 0.70-1.20 [facility] Comment on above: Order Comment: Y Performed By: #### L 500.4050, L503.6005, L300.8000, L100.0100, L501.5425 #### [facility] [address] [place], [address] GAP 12 Normal 5-15 [facility] Comment on above: Order Comment: Y Performed By: #### L 500.4050, L503.6005, L300.8000, L100.0100, L501.5425 #### [facility] [address] [place], [address] GFR/1.73 sq M.predicted among non-blacks MDRD (S/P/Bld) [Vol rate/Area] 62 mL/min/{1.73_m2} Normal >60 [facility] Comment on above: Order Comment: Y Result Comment: mL/m in/1.73m2 CKD-EPI Creatinine Equation (2020) Performed By: #### L 500.4050, L503.6005, L300.8000, L100.0100, L501.5425 #### [facility] [address] [place], [address] Globulin (S) [Mass/Vol] 2.4 g/dL Normal 2.2-4.2 [facility] Comment on above: Order Comment: Y Performed By: #### L 500.4050, L503.6005, L300.8000, L100.0100, L501.5425 #### [facility] [address] [place], [address] Glucose [Mass/Vol] 97 mg/dL Normal 70-99 [facility] Comment on above: Order Comment: Y Performed By: #### L 500.4050, L503.6005, L300.8000, L100.0100, L501.5425 #### [facility] [address] [place], [address] Potassium [Moles/Vol] 4.4 mmol/L Normal 3.3-5.1 [facility] Comment on above: Order Comment: Y Performed By: #### L 500.4050, L503.6005, L300.8000, L100.0100, L501.5425 #### [facility] [address] [place], [address] Sodium [Moles/Vol] 143 mmol/L Normal 133-145 [facility] Comment on above: Order Comment: Y Performed By: #### L 500.4050, L503.6005, L300.8000, L100.0100, L501.5425 #### [facility] [address] [place], [address] T PROT 6.7 g/dL Normal 5.9-8.4 [facility] Comment on above: Order Comment: Y Performed By: #### L 500.4050, L503.6005, L300.8000, L100.0100, L501.5425 #### [facility] [address] [place], [address] Urea nitrogen [Mass/Vol] 24 mg/dL High 4-19 [facility] Comment on above: Order Comment: Y Performed By: #### L 500.4050, L503.6005, L300.8000, L100.0100, L501.5425 #### [facility] [address] [place], [address] Hemoglobin A1con 10-23-2024 HbA1c (Bld) [Mass fraction] 6.2 % High <=5.6 [facility] Comment on above: Order Comment: 133 Result Comment: Norm al < 5.7 % Prediabetic 5.7 - 6.4 % Diabetic >or= 6.5 % Please note range changes. Performed By: #### L 500.4050, L503.6005, L300.8000, L100.0100, L501.5425 #### [facility] [address] [place], [address] Magnesiumon 10-23-2024 Magnesium [Mass/Vol] 2.4 mg/dL High 1.5-2.2 [facility] Comment on above: Order Comment: Y Performed By: #### L 500.4050, L503.6005, L300.8000, L100.0100, L501.5425 #### [facility] [address] [place], [address] Valproic Acid (Depakene) Lev cecil 10-23-2024 VALPROIC ACID 75 ug/mL Normal 50-100 [facility] Comment on above: Order Comment: 133 Result Comment: Valp roic Acid concentrations >100 ug/mL are potentially toxic. Performed By: #### L 500.4050, L503.6005, L300.8000, L100.0100, L501.5425 #### [facility] [address] [place], [address] Anion gap in Serum or Plasma Ordered By: Jigna Brantley on 09-26-2024 Anion gap [Moles/Vol] 12 mmol/L 10-11 [facility] BUN/creatinine ratioOrdered By: Jigna Brantley on 09-26-2024 Urea nitrogen/Creatinine [Mass ratio] 24.2 mg/mg High 03-18 [facility] Basic Metabolic Profile (BMP )on 09-26-2024 BUN/CRE 24.2 RATIO High 03-18 [facility] Comment on above: Order Comment: 209 Performed By: #### L 501.5200, L500.2500 #### [facility] [address] [place], [address] Calcium [Mass/Vol] 9.8 mg/dL Normal 7.6-11.0 [facility] Comment on above: Order Comment: 209 Performed By: #### L 501.5200, L500.2500 #### [facility] [address] [place], [address] Chloride [Moles/Vol] 103 mmol/L Normal 98-108 [facility] Comment on above: Order Comment: 209 Performed By: #### L 501.5200, L500.2500 #### [facility] [address] [place], [address] CO2 [Moles/Vol] 26.1 mmol/L Normal 21.0-32.0 [facility] Comment on above: Order Comment: 209 Performed By: #### L 501.5200, L500.2500 #### [facility] [address] [place], [address] Creatinine [Mass/Vol] 1.46 mg/dL High 0.70-1.20 [facility] Comment on above: Order Comment: 209 Performed By: #### L 501.5200, L500.2500 #### [facility] [address] [place], [address] GAP 12 Normal 5-15 [facility] Comment on above: Order Comment: 209 Performed By: #### L 501.5200, L500.2500 #### [facility] [address] [place], [address] GFR/1.73 sq M.predicted among non-blacks MDRD (S/P/Bld) [Vol rate/Area] 52 mL/min/{1.73_m2} Low >60 [facility] Comment on above: Order Comment: 209 Result Comment: mL/m in/1.73m2 CKD-EPI Creatinine Equation (2020) Performed By: #### L 501.5200, L500.2500 #### [facility] [address] [place], [address] Glucose [Mass/Vol] 98 mg/dL Normal 70-99 [facility] Comment on above: Order Comment: 209 Performed By: #### L 501.5200, L500.2500 #### [facility] [address] [place], [address] Potassium [Moles/Vol] 4.5 mmol/L Normal 3.3-5.1 [facility] Comment on above: Order Comment: 209 Performed By: #### L 501.5200, L500.2500 #### [facility] [address] [place], [address] Sodium [Moles/Vol] 141 mmol/L Normal 133-145 [facility] Comment on above: Order Comment: 209 Performed By: #### L 501.5200, L500.2500 #### [facility] [address] [place], [address] Urea nitrogen [Mass/Vol] 35 mg/dL High 4-19 [facility] Comment on above: Order Comment: 209 Performed By: #### L 501.5200, L500.2500 #### [facility] [address] [place], [address] Carbon dioxide, total [Moles /volume] in Central venous bloodOrdered By: Jigna Brantley on 09-26-2024 CO2 [Moles/Vol] 26.1 mmol/L 21.0-32.0 [facility] Chloride assayOrdered By: Fabricio Brantley on 09-26-2024 Chloride [Moles/Vol] 103 mmol/L 98-108 [facility] Glomerular filtration rate ( GFR) estimation/1.73 sq m using serum, plasma, or whole bOrdered By: Jigna Brantley on 09-26-2024 GFR/1.73 sq M.predicted among non-blacks MDRD (S/P/Bld) [Vol rate/Area] 52 mL/min/{1.73_m2} Low >60 [facility] Comment on above: mL/min/1.73m2 CKD-EP I Creatinine Equation (2020) Magnesiumon 09-26-2024 Magnesium [Mass/Vol] 2.4 mg/dL High 1.5-2.2 [facility] Comment on above: Order Comment: 209 Performed By: #### L 501.5200, L500.2500 #### [facility] [address] [place], [place], [id number] Magnesium measurement (mass/ volume)Ordered By: Jigna Brantley on 09-26-2024 Magnesium (Unsp spec) [Mass/Vol] 2.4 mg/dL High 1.5-2.2 [facility] Potassium measurement (mass/ volume)Ordered By: Jigna Brantley on 09-26-2024 Potassium (Unsp spec) [Mass/Vol] 4.5 mmol/L 3.3-5.1 [facility] Serum creatinine measurement (mass/volume)Ordered By: Jigna Brantley on 09-26-2024 Creatinine [Mass/Vol] 1.46 mg/dL High 0.70-1.20 [facility] Serum glucose measurement (m ass/volume)Ordered By: Jigna Brantley on 09-26-2024 Glucose [Mass/Vol] 98 mg/dL 70-99 [facility] Serum or plasma calcium rosalina urement (mass/volume)Ordered By: Jigna Brantley on 09-26-2024 Calcium [Mass/Vol] 9.8 mg/dL 7.6-11.0 [facility] Serum or plasma urea nitroge n measurement (mass/volume)Ordered By: Jigna Brantley on 09-26-2024 Urea nitrogen [Mass/Vol] 35 mg/dL High 4-19 [facility] Sodium levelOrdered By: nEoch Brantley on 09-26-2024 Sodium [Moles/Vol] 141 mmol/L 133-145 [facility] CRPon 08-27-2024 C-REACTIVE PROT 37.80 mg/L High 0.0-3.0 [facility] Comment on above: Order Comment: 1 Y Performed By: #### L 500.4050, L503.6005, L300.8000, L100.0100, L501.5425 #### [facility] [address] [place], [place], [id number] CRP [Mass/Vol]Ordered By: Fabricio Brantley on 08-27-2024 C-Reactive Protein Extended Range 37.80 mg/L High 0.0-3.0 [facility] Serum or plasma C reactive p rotein measurement (mass/volume)Ordered By: Jigna Brantley on 08-27-2024 CRP [Mass/Vol] 37.80 mg/L High 0.0-3.0 [facility] Serum or plasma uric acid me asurement (mass/volume)Ordered By: Jigna Brantley on 08-27-2024 Urate [Mass/Vol] 7.6 mg/dL High 3.5-7.2 [facility] Comment on above: The drugs N-Acetylcy steine and Metamizole may falsely depress this assay. Uric Acidon 08-27-2024 URIC 7.6 mg/dL High 3.5-7.2 [facility] Comment on above: Order Comment: 1 Y Result Comment: The drugs N-Acetylcysteine and Metamizole may falsely depress this assay. Performed By: #### L 500.4050, L503.6005, L300.8000, L100.0100, L501.5425 #### [facility] [place], [place], [id number] Absolute lymphocyte countOrd ered By: Jigna Brantley on 07-23-2024 Lymphocytes Auto (Unsp spec) [#/Vol] 3.24 10*3/uL 0.83-4.51 [facility] Absolute neutrophil countOrd ered By: Jigna Brantley on 07-23-2024 Neutrophils (Bld) [#/Vol] 5.5 10*3/uL 2.0-7.7 [facility] Automated lymphocyte count a s percentage of total leukocytesOrdered By: Jigna Brantley on 07-23-2024 Lymphocytes/100 WBC Auto (Unsp spec) 33.6 % 19-41 [facility] Basic Metabolic Profile (BMP )on 07-23-2024 BUN/CRE 16.1 RATIO Normal 10-20 [facility] Comment on above: Order Comment: 206.1 Performed By: #### L 500.4050, L503.6005, L300.8000, L100.0100, L501.5425 #### [facility] [address] [place], [address] CA,Total 8.6 mg/dL Normal 8.5-10.1 [facility] Comment on above: Order Comment: . Performed By: #### L 500.4050, L503.6005, L300.8000, L100.0100, L501.5425 #### [facility] [address] [place], [address] Chloride [Moles/Vol] 102 mmol/L Normal 98-107 [facility] Comment on above: Order Comment: . Performed By: #### L 500.4050, L503.6005, L300.8000, L100.0100, L501.5425 #### [facility] [address] [place], [address] CO2 [Moles/Vol] 31.0 mmol/L Normal 21.0-32.0 [facility] Comment on above: Order Comment: . Performed By: #### L 500.4050, L503.6005, L300.8000, L100.0100, L501.5425 #### [facility] [address] [place], [address] Creatinine [Mass/Vol] 1.37 mg/dL High 0.70-1.30 [facility] Comment on above: Order Comment: 206.1 Result Comment: The validity of the calculated GFR GFRAA in patients over 70 years has not been determined. Clinical correlation is essential. Performed By: #### L 500.4050, L503.6005, L300.8000, L100.0100, L501.5425 #### [facility] [address] [place], [address] EST GFR - AA 67 mL/min Normal >60 [facility] Comment on above: Order Comment: 206.1 Result Comment: Afri can Italian GFR Calc Performed By: #### L 500.4050, L503.6005, L300.8000, L100.0100, L501.5425 #### [facility] [address] [place], [address] GAP 5 Normal 5-15 [facility] Comment on above: Order Comment: . Performed By: #### L 500.4050, L503.6005, L300.8000, L100.0100, L501.5425 #### [facility] [address] [place], [address] GFR/1.73 sq M.predicted among non-blacks MDRD (S/P/Bld) [Vol rate/Area] 55 mL/min/{1.73_m2} Low >60 [facility] Comment on above: Order Comment: . Result Comment: Non- GFR Calc Performed By: #### L 500.4050, L503.6005, L300.8000, L100.0100, L501.5425 #### [facility] [address] [place], [address] Glucose [Mass/Vol] 92 mg/dL Normal 74-106 [facility] Comment on above: Order Comment: . Performed By: #### L 500.4050, L503.6005, L300.8000, L100.0100, L501.5425 #### [facility] [address] [place], [address] Potassium [Moles/Vol] 4.1 mmol/L Normal 3.5-5.1 [facility] Comment on above: Order Comment: . Performed By: #### L 500.4050, L503.6005, L300.8000, L100.0100, L501.5425 #### [facility] [address] [place], [address] Sodium [Moles/Vol] 138 mmol/L Normal 136-145 [facility] Comment on above: Order Comment: 206.1 Performed By: #### L 500.4050, L503.6005, L300.8000, L100.0100, L501.5425 #### [facility] [address] [place], [address] Urea nitrogen [Mass/Vol] 22 mg/dL High 7-18 [facility] Comment on above: Order Comment: 206.1 Performed By: #### L 500.4050, L503.6005, L300.8000, L100.0100, L501.5425 #### [facility] [address] [place], [address] Basophil percentageOrdered B y: Jigna Brantley on 07-23-2024 Basophils/100 WBC (Bld) 0.5 % 0-[address] [facility] Blood urea nitrogen (BUN)/cr eatinine ratioOrdered By: Jigna Brantley on 07-23-2024 Urea nitrogen/Creatinine [Mass ratio] 16.1 mg/mg 10-20 [facility] CBC W/Diff, Automatedon 07-01 Absolute Lymph 3.24 X10 3/uL Normal 0.83-4.51 [facility] Comment on above: Order Comment: 206.1 Performed By: #### L 500.4050, L503.6005, L300.8000, L100.0100, L501.5425 #### [facility] [address] [place], [address] Absolute Neut 5.5 X10 3/uL Normal 2.0-7.7 [facility] Comment on above: Order Comment: 206.1 Performed By: #### L 500.4050, L503.6005, L300.8000, L100.0100, L501.5425 #### [facility] [address] [place], [address] Basophils/100 WBC (Bld) 0.5 % Normal 0-[address] [facility] Comment on above: Order Comment: 206.1 Performed By: #### L 500.4050, L503.6005, L300.8000, L100.0100, L501.5425 #### [facility] [address] [place], [address] Eosinophils/100 WBC (Bld) 0.6 % Normal 0-5 [facility] Comment on above: Order Comment: 206.1 Performed By: #### L 500.4050, L503.6005, L300.8000, L100.0100, L501.5425 #### [facility] [address] [place], [address] Erythrocyte distribution width (RBC) [Ratio] 14.1 % Normal 11.6-14.6 [facility] Comment on above: Order Comment: . Performed By: #### L 500.4050, L503.6005, L300.8000, L100.0100, L501.5425 #### [facility] [address] [place], [address] Hematocrit (Bld) [Volume fraction] 43.3 % Normal 40-54 [facility] Comment on above: Order Comment: .1 Performed By: #### L 500.4050, L503.6005, L300.8000, L100.0100, L501.5425 #### [facility] [address] [place], [address] Hemoglobin (Bld) [Mass/Vol] 13.9 g/dL Normal 13.0-16.5 [facility] Comment on above: Order Comment: .1 Performed By: #### L 500.4050, L503.6005, L300.8000, L100.0100, L501.5425 #### [facility] [address] [place], [address] IG% 0.600 Normal 0.0-0.9 [facility] Comment on above: Order Comment: 206.1 Result Comment: IG% - Immature Granulocytes (promyelocytes, myelocytes and metamyelocytes) > 1% indicates that a LEFT SHIFT is Present. Performed By: #### L 500.4050, L503.6005, L300.8000, L100.0100, L501.5425 #### [facility] [address] [place], [address] Lymphocytes/100 WBC (Bld) 33.6 % Normal 19-41 [facility] Comment on above: Order Comment: 206.1 Performed By: #### L 500.4050, L503.6005, L300.8000, L100.0100, L501.5425 #### [facility] [address] [place], [address] MCH (RBC) [Entitic mass] 30.3 pg Normal 27.0-32.0 [facility] Comment on above: Order Comment: 206.1 Performed By: #### L 500.4050, L503.6005, L300.8000, L100.0100, L501.5425 #### [facility] [address] [place], [address] MCHC (RBC) [Mass/Vol] 32.1 g/dL Normal 32-36 [facility] Comment on above: Order Comment: 206.1 Performed By: #### L 500.4050, L503.6005, L300.8000, L100.0100, L501.5425 #### [facility] [address] [place], [address] MCV (RBC) [Entitic vol] 94.3 fL High 80-[address] [facility] Comment on above: Order Comment: 206.1 Performed By: #### L 500.4050, L503.6005, L300.8000, L100.0100, L501.5425 #### [facility] [address] [place], [address] Monocytes/100 WBC (Bld) 7.2 % Normal 0-10 [facility] Comment on above: Order Comment: 206.1 Performed By: #### L 500.4050, L503.6005, L300.8000, L100.0100, L501.5425 #### [facility] [address] [place], [address] Neutrophils/100 WBC (Bld) 57.5 % Normal 47-70 [facility] Comment on above: Order Comment: 206.1 Performed By: #### L 500.4050, L503.6005, L300.8000, L100.0100, L501.5425 #### [facility] [address] [place], [address] Nucleated RBC (Bld) [#/Vol] 0 10*3/uL Normal 0-5 [facility] Comment on above: Order Comment: .1 Performed By: #### L 500.4050, L503.6005, L300.8000, L100.0100, L501.5425 #### [facility] [address] [place], [address] Platelet mean volume (Bld) [Entitic vol] 11.2 fL Normal 6.2-12.0 [facility] Comment on above: Order Comment: 206.1 Performed By: #### L 500.4050, L503.6005, L300.8000, L100.0100, L501.5425 #### [facility] [address] [place], [address] Platelets (Bld) [#/Vol] 320 10*3/uL Normal 150-450 [facility] Comment on above: Order Comment: 206.1 Performed By: #### L 500.4050, L503.6005, L300.8000, L100.0100, L501.5425 #### [facility] [address] [place], [address] RBC (Bld) [#/Vol] 4.59 10*6/uL Low 4.6-6.2 [facility] Comment on above: Order Comment: 206.1 Performed By: #### L 500.4050, L503.6005, L300.8000, L100.0100, L501.5425 #### [facility] [address] [place], [address] RDW SD 48.2 fl High 35.1-43.9 [facility] Comment on above: Order Comment: .1 Performed By: #### L 500.4050, L503.6005, L300.8000, L100.0100, L501.5425 #### [facility] [address] [place], [address] WBC (Bld) [#/Vol] 9.6 10*3/uL Normal 4.4-11.0 [facility] Comment on above: Order Comment: . Performed By: #### L 500.4050, L503.6005, L300.8000, L100.0100, L501.5425 #### [facility] [address] [place], [address] Carbon dioxide measurementOr dered By: Jigna Brantley on 07-23-2024 CO2 [Moles/Vol] 31.0 mmol/L 21.0-32.0 [facility] Chloride measurementOrdered By: Jigna Brantley on 07-23-2024 Chloride [Moles/Vol] 102 mmol/L 98-107 [facility] Eosinophil percentageOrdered By: Jigna Brantley on 07-23-2024 Eosinophils/100 WBC (Bld) 0.6 % 0-5 [facility] Erythrocyte distribution wid th (RBC) [Ratio]Ordered By: Jigna Brantley on 07-23-2024 Erythrocyte distribution width (RBC) [Entitic vol] 48.2 fL High 35.1-43.9 [facility] Erythrocyte distribution wid th ratioOrdered By: Jigna Brantley on 07-23-2024 Erythrocyte distribution width (RBC) [Ratio] 14.1 % 11.6-14.6 [facility] Erythrocyte distribution wid th standard deviationOrdered By: Jigna Brantley on 07-23-2024 Erythrocyte distribution width (RBC) [Ratio] 48.2 fl High 35.1-43.9 [facility] Estimated glomerular filtrat ion rate (GFR) AmericanOrdered By: Jigna Brantley on 07-23-2024 Estimated GFR (MDRD) Amer 67 mL/min >60 [facility] Comment on above: GFR Calc Glomerular filtration rate ( GFR) estimationOrdered By: Jigna Brantley on 07-23-2024 Estimated GFR (MDRD) Non-Af Amer 55 mL/min Low >60 [facility] Comment on above: Non- GFR Calc GFR/1.73 sq M.predicted among non-blacks MDRD (S/P/Bld) [Vol rate/Area] 55 mL/min/{1.73_m2} Low >60 [facility] Comment on above: Non- GFR Calc Glucose measurementOrdered B y: Jigna Brantley on 07-23-2024 Glucose [Mass/Vol] 92 mg/dL 74-106 [facility] Hematocrit Auto (Bld) [Volum e fraction]Ordered By: Jigna Brantley on 07-23-2024 Hematocrit (Bld) [Volume fraction] 43.3 % 40-54 [facility] Hemoglobin measurementOrdere d By: Jigna Brantley on 07-23-2024 Hemoglobin (Bld) [Mass/Vol] 13.9 g/dL 13.0-16.5 [facility] Immature granulocytes/100 WB C Auto (Bld)Ordered By: Jigna Brantley on 07-23-2024 Immature granulocytes/100 WBC (Bld) 0.600 % 0.0-0.9 [facility] Comment on above: IG% - Immature Granu locytes (promyelocytes, myelocytes and metamyelocytes) > 1% indicates that a LEFT SHIFT is Present. Lymphocytes Auto (Unsp spec) [#/Vol]Ordered By: Jigna Brantley on 07-23-2024 Lymphocytes (Bld) [#/Vol] 3.24 10*3/uL 0.83-4.51 [facility] Lymphocytes/100 WBC Auto (Un sp spec)Ordered By: Jigna Brantley on 07-23-2024 Lymphocytes/100 WBC (Bld) 33.6 % 19-41 [facility] MCV (mean corpuscular volume ) determinationOrdered By: Jigna Brantley on 07-23-2024 MCV (RBC) [Entitic vol] 94.3 fL High 80-[address] [facility] Magnesiumon 07-23-2024 Magnesium [Mass/Vol] 2.5 mg/dL Normal 1.6-2.6 [facility] Comment on above: Order Comment: 206.1 Performed By: #### L 500.4050, L503.6005, L300.8000, L100.0100, L501.5425 #### [facility] [address] [place], [address] Magnesium measurementOrdered By: Jigna Brantley on 07-23-2024 Magnesium [Mass/Vol] 2.5 mg/dL 1.6-2.6 [facility] Mean corpuscular hemoglobin (MCH) determinationOrdered By: Jigna Brantley on 07-23-2024 MCH (RBC) [Entitic mass] 30.3 pg 27.0-32.0 [facility] Mean corpuscular hemoglobin concentration (MCHC) determinationOrdered By: Jigna Brantley on 07-23-2024 MCHC (RBC) [Mass/Vol] 32.1 g/dL 32-36 [facility] Mean platelet volume determi nationOrdered By: Jigna Brantley on 07-23-2024 Platelet mean volume (Bld) [Entitic vol] 11.2 fL 6.2-12.0 [facility] Monocyte percentageOrdered B y: Jigna Brantley on 07-23-2024 Monocytes/100 WBC (Bld) 7.2 % 0-[address] [facility] Neutrophil percentageOrdered By: Jigna Brantley on 07-23-2024 Neutrophils/100 WBC (Bld) 57.5 % 47-70 [facility] Nucleated red blood cell per centageOrdered By: Jigna Brantley on 07-23-2024 Nucleated RBC/100 WBC (Bld) [Ratio] 0 % 0-5 [facility] Platelet countOrdered By: Fabricio Brantley on 07-23-2024 Platelets (Bld) [#/Vol] 320 10*3/uL 150-450 [facility] Potassium measurementOrdered By: Jigna Brantley on 07-23-2024 Potassium [Moles/Vol] 4.1 mmol/L 3.5-5.1 [facility] RBC Auto (Bld) [#/Vol]Ordere d By: Jigna Brantley on 07-23-2024 RBC (Bld) [#/Vol] 4.59 10*6/uL Low 4.6-6.2 [facility] Serum anion gap measurementO rdered By: Jigna Brantley on 07-23-2024 Anion gap [Moles/Vol] 5 mmol/L 5-15 [facility] Serum or plasma calcium rosalina urement (mass/volume)Ordered By: Jigna Brantley on 07-23-2024 Calcium [Mass/Vol] 8.6 mg/dL 8.5-10.1 [facility] Serum or plasma creatinine m easurement (mass/volume)Ordered By: Jigna Brantley on 07-23-2024 Creatinine [Mass/Vol] 1.37 mg/dL High 0.70-1.30 [facility] Comment on above: The validity of the calculated GFR & GFRAA in patients over 70 years has not been determined. Clinical correlation is essential. Serum or plasma urea nitroge n measurement (mass/volume)Ordered By: Jigna Brantley on 07-23-2024 Urea nitrogen [Mass/Vol] 22 mg/dL High 7-18 [facility] Sodium levelOrdered By: Enoch Brantley on 07-23-2024 Sodium [Moles/Vol] 138 mmol/L 136-145 [facility] White blood cell (WBC) count Ordered By: Jigna Brantley on 07-23-2024 WBC (Bld) [#/Vol] 9.6 10*3/uL 4.4-11.0 [facility] Absolute lymphocyte countOrd ered By: Jigna Brantley on 07-16-2024 Lymphocytes Auto (Unsp spec) [#/Vol] 1.83 10*3/uL 0.83-4.51 [facility] Absolute neutrophil countOrd ered By: Jigna Brantley on 07-16-2024 Neutrophils (Bld) [#/Vol] 7.9 10*3/uL High 2.0-7.7 [facility] Automated lymphocyte count a s percentage of total leukocytesOrdered By: Jigna Lynnejadon on 07-16-2024 Lymphocytes/100 WBC Auto (Unsp spec) 17.2 % Low 19-41 [facility] Basic Metabolic Profile (BMP )on 07-16-2024 BUN/CRE 18.8 RATIO Normal 10-20 [facility] Comment on above: Order Comment: 206 Performed By: #### L 500.4050, L503.6005, L300.8000, L100.0100, L501.5425 #### [facility] [address] [place], [address] CA,Total 9.3 mg/dL Normal 8.5-10.1 [facility] Comment on above: Order Comment: 206 Performed By: #### L 500.4050, L503.6005, L300.8000, L100.0100, L501.5425 #### [facility] [address] [place], [address] Chloride [Moles/Vol] 103 mmol/L Normal 98-107 [facility] Comment on above: Order Comment: 206 Performed By: #### L 500.4050, L503.6005, L300.8000, L100.0100, L501.5425 #### [facility] [address] [place], [address] CO2 [Moles/Vol] 27.0 mmol/L Normal 21.0-32.0 [facility] Comment on above: Order Comment: 206 Performed By: #### L 500.4050, L503.6005, L300.8000, L100.0100, L501.5425 #### [facility] [address] [place], [address] Creatinine [Mass/Vol] 1.17 mg/dL Normal 0.70-1.30 [facility] Comment on above: Order Comment: 206 Result Comment: The validity of the calculated GFR GFRAA in patients over 70 years has not been determined. Clinical correlation is essential. Performed By: #### L 500.4050, L503.6005, L300.8000, L100.0100, L501.5425 #### [facility] [address] [place], [address] EST GFR - AA 80 mL/min Normal >60 [facility] Comment on above: Order Comment: 206 Result Comment: Afri can Italian GFR Calc Performed By: #### L 500.4050, L503.6005, L300.8000, L100.0100, L501.5425 #### [facility] [address] [place], [address] GAP 9 Normal 5-15 [facility] Comment on above: Order Comment: 206 Performed By: #### L 500.4050, L503.6005, L300.8000, L100.0100, L501.5425 #### [facility] [address] [place], [address] GFR/1.73 sq M.predicted among non-blacks MDRD (S/P/Bld) [Vol rate/Area] 66 mL/min/{1.73_m2} Normal >60 [facility] Comment on above: Order Comment: 206 Result Comment: Non- GFR Calc Performed By: #### L 500.4050, L503.6005, L300.8000, L100.0100, L501.5425 #### [facility] [address] [place], [address] Glucose [Mass/Vol] 94 mg/dL Normal 74-106 [facility] Comment on above: Order Comment: 206 Performed By: #### L 500.4050, L503.6005, L300.8000, L100.0100, L501.5425 #### [facility] [address] [place], [address] Potassium [Moles/Vol] 3.6 mmol/L Normal 3.5-5.1 [facility] Comment on above: Order Comment: 206 Performed By: #### L 500.4050, L503.6005, L300.8000, L100.0100, L501.5425 #### [facility] [address] [place], [address] Sodium [Moles/Vol] 139 mmol/L Normal 136-145 [facility] Comment on above: Order Comment: 206 Performed By: #### L 500.4050, L503.6005, L300.8000, L100.0100, L501.5425 #### [facility] [address] [place], [address] Urea nitrogen [Mass/Vol] 22 mg/dL High 12-14 [facility] Comment on above: Order Comment: 206 Performed By: #### L 500.4050, L503.6005, L300.8000, L100.0100, L501.5425 #### [facility] [address] [place], [address] Basophil percentageOrdered B y: Jigna Brantley on 07-16-2024 Basophils/100 WBC (Bld) 0.1 % 0-[address] [facility] Blood urea nitrogen (BUN)/cr eatinine ratioOrdered By: Jigna Brantley on 07-16-2024 Urea nitrogen/Creatinine [Mass ratio] 18.8 mg/mg 10-20 [facility] CBC W/Diff, Automatedon 06-30 Absolute Lymph 1.83 X10 3/uL Normal 0.83-4.51 [facility] Comment on above: Order Comment: 206 Performed By: #### L 500.4050, L503.6005, L300.8000, L100.0100, L501.5425 #### [facility] [address] [place], [address] Absolute Neut 7.9 X10 3/uL High 2.0-7.7 [facility] Comment on above: Order Comment: 206 Performed By: #### L 500.4050, L503.6005, L300.8000, L100.0100, L501.5425 #### [facility] [address] [place], [address] Basophils/100 WBC (Bld) 0.1 % Normal 0-[address] [facility] Comment on above: Order Comment: 206 Performed By: #### L 500.4050, L503.6005, L300.8000, L100.0100, L501.5425 #### [facility] [address] [place], [address] Eosinophils/100 WBC (Bld) 0.1 % Normal 0-5 [facility] Comment on above: Order Comment: 206 Performed By: #### L 500.4050, L503.6005, L300.8000, L100.0100, L501.5425 #### [facility] [address] [place], [address] Erythrocyte distribution width (RBC) [Ratio] 13.2 % Normal 11.6-14.6 [facility] Comment on above: Order Comment: 206 Performed By: #### L 500.4050, L503.6005, L300.8000, L100.0100, L501.5425 #### [facility] [address] [place], [address] Hematocrit (Bld) [Volume fraction] 41.3 % Normal 40-54 [facility] Comment on above: Order Comment: 206 Performed By: #### L 500.4050, L503.6005, L300.8000, L100.0100, L501.5425 #### [facility] [address] [place], [address] Hemoglobin (Bld) [Mass/Vol] 13.3 g/dL Normal 13.0-16.5 [facility] Comment on above: Order Comment: 206 Performed By: #### L 500.4050, L503.6005, L300.8000, L100.0100, L501.5425 #### [facility] [address] [place], [address] IG% 0.700 Normal 0.0-0.9 [facility] Comment on above: Order Comment: 206 Result Comment: IG% - Immature Granulocytes (promyelocytes, myelocytes and metamyelocytes) > 1% indicates that a LEFT SHIFT is Present. Performed By: #### L 500.4050, L503.6005, L300.8000, L100.0100, L501.5425 #### [facility] [address] [place], [address] Lymphocytes/100 WBC (Bld) 17.2 % Low 19-41 [facility] Comment on above: Order Comment: 206 Performed By: #### L 500.4050, L503.6005, L300.8000, L100.0100, L501.5425 #### [facility] [address] [place], [address] MCH (RBC) [Entitic mass] 29.7 pg Normal 27.0-32.0 [facility] Comment on above: Order Comment: 206 Performed By: #### L 500.4050, L503.6005, L300.8000, L100.0100, L501.5425 #### [facility] [address] [place], [address] MCHC (RBC) [Mass/Vol] 32.2 g/dL Normal 32-36 [facility] Comment on above: Order Comment: 206 Performed By: #### L 500.4050, L503.6005, L300.8000, L100.0100, L501.5425 #### [facility] [address] [place], [address] MCV (RBC) [Entitic vol] 92.2 fL Normal 80-[address] [facility] Comment on above: Order Comment: 206 Performed By: #### L 500.4050, L503.6005, L300.8000, L100.0100, L501.5425 #### [facility] [address] [place], [address] Monocytes/100 WBC (Bld) 7.6 % Normal 0-[address] [facility] Comment on above: Order Comment: 206 Performed By: #### L 500.4050, L503.6005, L300.8000, L100.0100, L501.5425 #### [facility] [address] [place], [address] Neutrophils/100 WBC (Bld) 74.3 % High 47-70 [facility] Comment on above: Order Comment: 206 Performed By: #### L 500.4050, L503.6005, L300.8000, L100.0100, L501.5425 #### [facility] [address] [place], [address] Nucleated RBC (Bld) [#/Vol] 0 10*3/uL Normal 0-5 [facility] Comment on above: Order Comment: 206 Performed By: #### L 500.4050, L503.6005, L300.8000, L100.0100, L501.5425 #### [facility] [address] [place], [address] Platelet mean volume (Bld) [Entitic vol] 10.4 fL Normal 6.2-12.0 [facility] Comment on above: Order Comment: 206 Performed By: #### L 500.4050, L503.6005, L300.8000, L100.0100, L501.5425 #### [facility] [address] [place], [address] Platelets (Bld) [#/Vol] 462 10*3/uL High 150-450 [facility] Comment on above: Order Comment: 206 Performed By: #### L 500.4050, L503.6005, L300.8000, L100.0100, L501.5425 #### [facility] [address] [place], [address] RBC (Bld) [#/Vol] 4.48 10*6/uL Low 4.6-6.2 [facility] Comment on above: Order Comment: 206 Performed By: #### L 500.4050, L503.6005, L300.8000, L100.0100, L501.5425 #### [facility] [address] [place], [address] RDW SD 44.1 fl High 35.1-43.9 [facility] Comment on above: Order Comment: 206 Performed By: #### L 500.4050, L503.6005, L300.8000, L100.0100, L501.5425 #### [facility] [address] [place], [address] WBC (Bld) [#/Vol] 10.6 10*3/uL Normal 4.4-11.0 [facility] Comment on above: Order Comment: 206 Performed By: #### L 500.4050, L503.6005, L300.8000, L100.0100, L501.5425 #### [facility] [address] [place], [address] CNPShadia 07-16-2024 KVNGN Telephone (FAMPWS) REINA SULLIVAN ([id number]) 1955 M Date Time Provider Department 07/16/24 ARIC ZAPIEN During your visit today, we recorded the following information about you: Felicita Bolden MA 07/16/2024 3:30 PM Signed Patient canceled his appointment on 07/12/24 with Isa Stevenson. He was discharged from [facility] on 07/11/24 DX: AFIB RVR, debility. Called and spoke with ex- Flor, his emergency contact, and she said he is in [facility] for rehab with the hopes for [...] unspecified na*09/30/2022 Left atrial enlargement [I51.7] 09/30/2022 residential current use of 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 *09/30/2022 Migraine [...] Status:Closed by FELICITA BOLDEN on 08/07/24 Normal [facility] Carbon dioxide measurementOr dered By: Jigna Brantley on 07-16-2024 CO2 [Moles/Vol] 27.0 mmol/L 21.0-32.0 [facility] Chloride measurementOrdered By: Jigna Brantley on 07-16-2024 Chloride [Moles/Vol] 103 mmol/L 98-107 [facility] Eosinophil percentageOrdered By: Jigna Brantley on 07-16-2024 Eosinophils/100 WBC (Bld) 0.1 % 0-5 [facility] Erythrocyte distribution wid th (RBC) [Ratio]Ordered By: Jigna Brantley on 07-16-2024 Erythrocyte distribution width (RBC) [Entitic vol] 44.1 fL High 35.1-43.9 [facility] Erythrocyte distribution wid th ratioOrdered By: Jigna Brantley on 07-16-2024 Erythrocyte distribution width (RBC) [Ratio] 13.2 % 11.6-14.6 [facility] Erythrocyte distribution wid th standard deviationOrdered By: Jigna Brantley on 07-16-2024 Erythrocyte distribution width (RBC) [Ratio] 44.1 fl High 35.1-43.9 [facility] Estimated glomerular filtrat ion rate (GFR) AmericanOrdered By: Jigna Brantley on 07-16-2024 Estimated GFR (MDRD) Amer 80 mL/min >60 [facility] Comment on above: GFR Calc Glomerular filtration rate ( GFR) estimationOrdered By: Jigna Brantley on 07-16-2024 Estimated GFR (MDRD) Non-Af Amer 66 mL/min >60 [facility] Comment on above: Non- GFR Calc GFR/1.73 sq M.predicted among non-blacks MDRD (S/P/Bld) [Vol rate/Area] 66 mL/min/{1.73_m2} >60 [facility] Comment on above: Non- GFR Calc Glucose measurementOrdered B y: Jigna Brantley on 02-17-2025 Glucose [Mass/Vol] 94 mg/dL 74-106 [facility] Hematocrit Auto (Bld) [Volum e fraction]Ordered By: Jigna Brantley on 07-16-2024 Hematocrit (Bld) [Volume fraction] 41.3 % 40-54 [facility] Hemoglobin measurementOrdere d By: Jigna Brantley on 07-16-2024 Hemoglobin (Bld) [Mass/Vol] 13.3 g/dL 13.0-16.5 [facility] Immature granulocytes/100 WB C Auto (Bld)Ordered By: Jigna Brantley on 07-16-2024 Immature granulocytes/100 WBC (Bld) 0.700 % 0.0-0.9 [facility] Comment on above: IG% - Immature Granu locytes (promyelocytes, myelocytes and metamyelocytes) > 1% indicates that a LEFT SHIFT is Present. Lymphocytes Auto (Unsp spec) [#/Vol]Ordered By: Jigna Brantley on 07-16-2024 Lymphocytes (Bld) [#/Vol] 1.83 10*3/uL 0.83-4.51 [facility] Lymphocytes/100 WBC Auto (Un sp spec)Ordered By: Jigna Brantley on 07-16-2024 Lymphocytes/100 WBC (Bld) 17.2 % Low 19-41 [facility] MCV (mean corpuscular volume ) determinationOrdered By: Jigna Brantley on 07-16-2024 MCV (RBC) [Entitic vol] 92.2 fL 80-[address] [facility] Magnesiumon 07-16-2024 Magnesium [Mass/Vol] 2.7 mg/dL High 1.6-2.6 [facility] Comment on above: Order Comment: 206 Performed By: #### L 500.4050, L503.6005, L300.8000, L100.0100, L501.5421 #### [facility] [address] [place], [address] Magnesium measurementOrdered By: Jigna Brantley on 07-16-2024 Magnesium [Mass/Vol] 2.7 mg/dL High 1.6-2.6 [facility] Mean corpuscular hemoglobin (MCH) determinationOrdered By: Jigna Brantley on 07-16-2024 MCH (RBC) [Entitic mass] 29.7 pg 27.0-32.0 [facility] Mean corpuscular hemoglobin concentration (MCHC) determinationOrdered By: Jigna Brantley on 07-16-2024 MCHC (RBC) [Mass/Vol] 32.2 g/dL 32-36 [facility] Mean platelet volume determi nationOrdered By: Jigna Brantley on 07-16-2024 Platelet mean volume (Bld) [Entitic vol] 10.4 fL 6.2-12.0 [facility] Monocyte percentageOrdered B y: Jigna Brantley on 07-16-2024 Monocytes/100 WBC (Bld) 7.6 % 0-10 [facility] Neutrophil percentageOrdered By: Jigna Brantley on 07-16-2024 Neutrophils/100 WBC (Bld) 74.3 % High 47-70 [facility] Nucleated red blood cell per centageOrdered By: Jigna Brantley on 07-16-2024 Nucleated RBC/100 WBC (Bld) [Ratio] 0 % 0-5 [facility] Platelet countOrdered By: Fabricio Brantley on 07-16-2024 Platelets (Bld) [#/Vol] 462 10*3/uL High 150-450 [facility] Potassium measurementOrdered By: Jigna Brantley on 07-16-2024 Potassium [Moles/Vol] 3.6 mmol/L 3.5-5.1 [facility] RBC Auto (Bld) [#/Vol]Ordere d By: Jigna Brantley on 07-16-2024 RBC (Bld) [#/Vol] 4.48 10*6/uL Low 4.6-6.2 [facility] Serum anion gap measurementO rdered By: Jigna Brantley on 07-16-2024 Anion gap [Moles/Vol] 9 mmol/L 5-15 [facility] Serum or plasma calcium rosalina urement (mass/volume)Ordered By: Jigna Brantley on 07-16-2024 Calcium [Mass/Vol] 9.3 mg/dL 8.5-10.1 [facility] Serum or plasma creatinine m easurement (mass/volume)Ordered By: Jigna Brantley on 07-16-2024 Creatinine [Mass/Vol] 1.17 mg/dL 0.70-1.30 [facility] Comment on above: The validity of the calculated GFR & GFRAA in patients over 70 years has not been determined. Clinical correlation is essential. Serum or plasma urea nitroge n measurement (mass/volume)Ordered By: Jigna Brantley on 07-16-2024 Urea nitrogen [Mass/Vol] 22 mg/dL High 7-18 [facility] Sodium levelOrdered By: Enoch Brantley on 07-16-2024 Sodium [Moles/Vol] 139 mmol/L 136-145 [facility] Valproate levelOrdered By: Keo Brantley on 07-16-2024 Valproic Acid (Depakene) Level 71 ug/mL 50-100 [facility] Valproic Acid (Depakene) Lev cecil 07-16-2024 VALPROIC ACID 71 ug/mL Normal 50-100 [facility] Comment on above: Order Comment: 206 Performed By: #### L 500.4050, L503.6005, L300.8000, L100.0100, L501.5425 #### [facility] [address] [place], [address] White blood cell (WBC) count Ordered By: Jigna Brantley on 07-16-2024 WBC (Bld) [#/Vol] 10.6 10*3/uL 4.4-11.0 [facility] 70-KH-Nryjfwg DOrdered By: Keo Brantley on 07-12-2024 Vitamin D 25-Hydroxy 6.3 ng/mL [facility] Comment on above: Vitamin D 25(OH) Sta tus Range Deficiency <20 ng/mL (50nmol/L) Insufficiency 20 - 30 ng/mL (50 - 75 nmol/L) Sufficiency 30 - 100 ng/mL (75 - 250 nmol/L) Toxicity >100 ng/mL (>250 nmol/L) Absolute lymphocyte countOrd ered By: Jigna Lynnejadon on 07-12-2024 Lymphocytes Auto (Unsp spec) [#/Vol] 1.79 10*3/uL 0.83-4.51 [facility] Absolute neutrophil countOrd ered By: Jigna Lynnejadon on 07-12-2024 Neutrophils (Bld) [#/Vol] 7.6 10*3/uL 2.0-7.7 [facility] Automated lymphocyte count a s percentage of total leukocytesOrdered By: Jigna Brantley on 07-12-2024 Lymphocytes/100 WBC Auto (Unsp spec) 17.4 % Low 19-41 [facility] Basic Metabolic Profile (BMP )on 07-12-2024 BUN/CRE 21.0 RATIO High 10-20 [facility] Comment on above: Order Comment: 1 Y Performed By: #### L 500.4050, L503.6005, L300.8000, L100.0100, L501.5425 #### [facility] [address] [place], [address] CA,Total 9.6 mg/dL Normal 8.5-10.1 [facility] Comment on above: Order Comment: 1 Y Performed By: #### L 500.4050, L503.6005, L300.8000, L100.0100, L501.5425 #### [facility] [address] [place], [address] Chloride [Moles/Vol] 104 mmol/L Normal 98-107 [facility] Comment on above: Order Comment: 1 Y Performed By: #### L 500.4050, L503.6005, L300.8000, L100.0100, L501.5425 #### [facility] [address] [place], [address] CO2 [Moles/Vol] 32.0 mmol/L Normal 21.0-32.0 [facility] Comment on above: Order Comment: 1 Y Performed By: #### L 500.4050, L503.6005, L300.8000, L100.0100, L501.5425 #### [facility] [address] [place], [address] Creatinine [Mass/Vol] 1.19 mg/dL Normal 0.70-1.30 [facility] Comment on above: Order Comment: 1 Y Result Comment: The validity of the calculated GFR GFRAA in patients over 70 years has not been determined. Clinical correlation is essential. Performed By: #### L 500.4050, L503.6005, L300.8000, L100.0100, L501.5425 #### [facility] [address] [place], [address] EST GFR - AA 78 mL/min Normal >60 [facility] Comment on above: Order Comment: 1 Y Result Comment: Afri can Italian GFR Calc Performed By: #### L 500.4050, L503.6005, L300.8000, L100.0100, L501.5425 #### [facility] [address] [place], [address] GAP 5 Normal 5-15 [facility] Comment on above: Order Comment: 1 Y Performed By: #### L 500.4050, L503.6005, L300.8000, L100.0100, L501.5425 #### [facility] [address] [place], [address] GFR/1.73 sq M.predicted among non-blacks MDRD (S/P/Bld) [Vol rate/Area] 65 mL/min/{1.73_m2} Normal >60 [facility] Comment on above: Order Comment: 1 Y Result Comment: Non- GFR Calc Performed By: #### L 500.4050, L503.6005, L300.8000, L100.0100, L501.5425 #### [facility] [address] [place], [address] Glucose [Mass/Vol] 104 mg/dL Normal 74-106 [facility] Comment on above: Order Comment: 1 Y Result Comment: Fast ing Glucose result from 100 to 125 mg/dL suggests IMPAIRED HOMEOSTASIS per A.D.A. criteria. Performed By: #### L 500.4050, L503.6005, L300.8000, L100.0100, L501.5425 #### [facility] [address] [place], [address] Potassium [Moles/Vol] 3.8 mmol/L Normal 3.5-5.1 [facility] Comment on above: Order Comment: 1 Y Performed By: #### L 500.4050, L503.6005, L300.8000, L100.0100, L501.5425 #### [facility] [address] [place], [address] Sodium [Moles/Vol] 141 mmol/L Normal 136-145 [facility] Comment on above: Order Comment: 1 Y Performed By: #### L 500.4050, L503.6005, L300.8000, L100.0100, L501.5425 #### [facility] [address] [place], [address] Urea nitrogen [Mass/Vol] 25 mg/dL High 7-18 [facility] Comment on above: Order Comment: 1 Y Performed By: #### L 500.4050, L503.6005, L300.8000, L100.0100, L501.5425 #### [facility] [address] [place], [address] Basophil percentageOrdered B y: Jigna Brantley on 07-12-2024 Basophils/100 WBC (Bld) 0.2 % 0-[address] [facility] Blood urea nitrogen (BUN)/cr eatinine ratioOrdered By: Jigna Brantley on 07-12-2024 Urea nitrogen/Creatinine [Mass ratio] 21.0 mg/mg High 10-20 [facility] CBC W/Diff, Automatedon 06-30 Absolute Lymph 1.79 X10 3/uL Normal 0.83-4.51 [facility] Comment on above: Order Comment: 1 Y Performed By: #### L 500.4050, L503.6005, L300.8000, L100.0100, L501.5425 #### [facility] [address] [place], [address] Absolute Neut 7.6 X10 3/uL Normal 2.0-7.7 [facility] Comment on above: Order Comment: 1 Y Performed By: #### L 500.4050, L503.6005, L300.8000, L100.0100, L501.5425 #### [facility] [address] [place], [address] Basophils/100 WBC (Bld) 0.2 % Normal 0-[address] [facility] Comment on above: Order Comment: 1 Y Performed By: #### L 500.4050, L503.6005, L300.8000, L100.0100, L501.5425 #### [facility] [address] [place], [address] Eosinophils/100 WBC (Bld) 0.0 % Normal 0-5 [facility] Comment on above: Order Comment: 1 Y Performed By: #### L 500.4050, L503.6005, L300.8000, L100.0100, L501.5425 #### [facility] [address] [place], [address] Erythrocyte distribution width (RBC) [Ratio] 12.8 % Normal 11.6-14.6 [facility] Comment on above: Order Comment: 1 Y Performed By: #### L 500.4050, L503.6005, L300.8000, L100.0100, L501.5425 #### [facility] [address] [place], [address] Hematocrit (Bld) [Volume fraction] 41.3 % Normal 40-54 [facility] Comment on above: Order Comment: 1 Y Performed By: #### L 500.4050, L503.6005, L300.8000, L100.0100, L501.5425 #### [facility] [address] [place], [address] Hemoglobin (Bld) [Mass/Vol] 13.2 g/dL Normal 13.0-16.5 [facility] Comment on above: Order Comment: 1 Y Performed By: #### L 500.4050, L503.6005, L300.8000, L100.0100, L501.5425 #### [facility] [address] [place], [address] IG% 0.600 Normal 0.0-0.9 [facility] Comment on above: Order Comment: 1 Y Result Comment: IG% - Immature Granulocytes (promyelocytes, myelocytes and metamyelocytes) > 1% indicates that a LEFT SHIFT is Present. Performed By: #### L 500.4050, L503.6005, L300.8000, L100.0100, L501.5425 #### [facility] [address] [place], [address] Lymphocytes/100 WBC (Bld) 17.4 % Low 19-41 [facility] Comment on above: Order Comment: 1 Y Performed By: #### L 500.4050, L503.6005, L300.8000, L100.0100, L501.5425 #### [facility] [address] [place], [address] MCH (RBC) [Entitic mass] 29.9 pg Normal 27.0-32.0 [facility] Comment on above: Order Comment: 1 Y Performed By: #### L 500.4050, L503.6005, L300.8000, L100.0100, L501.5425 #### [facility] [address] [place], [address] MCHC (RBC) [Mass/Vol] 32.0 g/dL Normal 32-36 [facility] Comment on above: Order Comment: 1 Y Performed By: #### L 500.4050, L503.6005, L300.8000, L100.0100, L501.5425 #### [facility] [address] [place], [address] MCV (RBC) [Entitic vol] 93.4 fL Normal 80-94 [facility] Comment on above: Order Comment: 1 Y Performed By: #### L 500.4050, L503.6005, L300.8000, L100.0100, L501.5425 #### [facility] [address] [place], [address] Monocytes/100 WBC (Bld) 8.1 % Normal 0-10 [facility] Comment on above: Order Comment: 1 Y Performed By: #### L 500.4050, L503.6005, L300.8000, L100.0100, L501.5425 #### [facility] [address] [place], [address] Neutrophils/100 WBC (Bld) 73.7 % High 47-70 [facility] Comment on above: Order Comment: 1 Y Performed By: #### L 500.4050, L503.6005, L300.8000, L100.0100, L501.5425 #### [facility] [address] [place], [address] Nucleated RBC (Bld) [#/Vol] 0 10*3/uL Normal 0-5 [facility] Comment on above: Order Comment: 1 Y Performed By: #### L 500.4050, L503.6005, L300.8000, L100.0100, L501.5425 #### [facility] [address] [place], [address] Platelet mean volume (Bld) [Entitic vol] 10.7 fL Normal 6.2-12.0 [facility] Comment on above: Order Comment: 1 Y Performed By: #### L 500.4050, L503.6005, L300.8000, L100.0100, L501.5425 #### [facility] [address] [place], [address] Platelets (Bld) [#/Vol] 502 10*3/uL High 150-450 [facility] Comment on above: Order Comment: 1 Y Performed By: #### L 500.4050, L503.6005, L300.8000, L100.0100, L501.5425 #### [facility] [address] [place], [address] RBC (Bld) [#/Vol] 4.42 10*6/uL Low 4.6-6.2 [facility] Comment on above: Order Comment: 1 Y Performed By: #### L 500.4050, L503.6005, L300.8000, L100.0100, L501.5425 #### [facility] [address] [place], [address] RDW SD 44.1 fl High 35.1-43.9 [facility] Comment on above: Order Comment: 1 Y Performed By: #### L 500.4050, L503.6005, L300.8000, L100.0100, L501.5425 #### [facility] [address] [place], [address] WBC (Bld) [#/Vol] 10.3 10*3/uL Normal 4.4-11.0 [facility] Comment on above: Order Comment: 1 Y Performed By: #### L 500.4050, L503.6005, L300.8000, L100.0100, L501.5425 #### [facility] [address] [place], [address] Carbon dioxide measurementOr dered By: Jigna Brantley on 07-12-2024 CO2 [Moles/Vol] 32.0 mmol/L 21.0-32.0 [facility] Chloride measurementOrdered By: Jigna Brantley on 07-12-2024 Chloride [Moles/Vol] 104 mmol/L 98-107 [facility] Eosinophil percentageOrdered By: Jigna Brantley on 07-12-2024 Eosinophils/100 WBC (Bld) 0.0 % 0-5 [facility] Erythrocyte distribution wid th (RBC) [Ratio]Ordered By: Jigna Brantley on 07-12-2024 Erythrocyte distribution width (RBC) [Entitic vol] 44.1 fL High 35.1-43.9 [facility] Erythrocyte distribution wid th ratioOrdered By: Jigna Brantley on 07-12-2024 Erythrocyte distribution width (RBC) [Ratio] 12.8 % 11.6-14.6 [facility] Erythrocyte distribution wid th standard deviationOrdered By: Jigna Brantley on 07-12-2024 Erythrocyte distribution width (RBC) [Ratio] 44.1 fl High 35.1-43.9 [facility] Estimated glomerular filtrat ion rate (GFR) AmericanOrdered By: Jigna Brantley on 07-12-2024 Estimated GFR (MDRD) Amer 78 mL/min >60 [facility] Comment on above: GFR Calc Glomerular filtration rate ( GFR) estimationOrdered By: Jigna Brantley on 07-12-2024 Estimated GFR (MDRD) Non-Af Amer 65 mL/min >60 [facility] Comment on above: Non- GFR Calc GFR/1.73 sq M.predicted among non-blacks MDRD (S/P/Bld) [Vol rate/Area] 65 mL/min/{1.73_m2} >60 [facility] Comment on above: Non- GFR Calc Glucose measurementOrdered B y: Jigna Brantley on 07-12-2024 Glucose [Mass/Vol] 104 mg/dL 74-106 [facility] Comment on above: Fasting Glucose resu lt from 100 to 125 mg/dL suggests IMPAIRED HOMEOSTASIS per A.D.A. criteria. Hematocrit Auto (Bld) [Volum e fraction]Ordered By: Jigna Brantley on 07-12-2024 Hematocrit (Bld) [Volume fraction] 41.3 % 40-54 [facility] Hemoglobin A1con 07-12-2024 HbA1c (Bld) [Mass fraction] 6.2 % High 3.8-5.6 [facility] Comment on above: Order Comment: 133 0000 Result Comment: Norm al < 5.7 % Prediabetic 5.7 - 6.4 % Diabetic >or= 6.5 % Please note range changes. Performed By: #### L 501.7700 #### [facility] [address] [place], [place], [address] Hemoglobin A1c percentageOrd ered By: Jigna Brantley on 07-12-2024 HbA1c (Bld) [Mass fraction] 6.2 % High 3.8-5.6 [facility] Comment on above: Normal < 5.7 % Predi abetic 5.7 - 6.4 % Diabetic >or= 6.5 % Please note range changes. Hemoglobin measurementOrdere d By: Jigna Brantley on 07-12-2024 Hemoglobin (Bld) [Mass/Vol] 13.2 g/dL 13.0-16.5 [facility] Immature granulocytes/100 WB C Auto (Bld)Ordered By: Jigna Brantley on 07-12-2024 Immature granulocytes/100 WBC (Bld) 0.600 % 0.0-0.9 [facility] Comment on above: IG% - Immature Granu locytes (promyelocytes, myelocytes and metamyelocytes) > 1% indicates that a LEFT SHIFT is Present. Lymphocytes Auto (Unsp spec) [#/Vol]Ordered By: Jigna Brantley on 07-12-2024 Lymphocytes (Bld) [#/Vol] 1.79 10*3/uL 0.83-4.51 [facility] Lymphocytes/100 WBC Auto (Un sp spec)Ordered By: Jigna Brantley on 07-12-2024 Lymphocytes/100 WBC (Bld) 17.4 % Low 19-41 [facility] MCV (mean corpuscular volume ) determinationOrdered By: Jigna Brantley on 07-12-2024 MCV (RBC) [Entitic vol] 93.4 fL 80-[address] [facility] Magnesiumon 07-12-2024 Magnesium [Mass/Vol] 2.7 mg/dL High 1.6-2.6 [facility] Comment on above: Order Comment: 1 Y Performed By: #### L 500.4050, L503.6005, L300.8000, L100.0100, L501.5425 #### [facility] [address] [place], [address] Magnesium measurementOrdered By: Jigna Brantley on 07-12-2024 Magnesium [Mass/Vol] 2.7 mg/dL High 1.6-2.6 [facility] Mean corpuscular hemoglobin (MCH) determinationOrdered By: Jigna Brantley on 07-12-2024 MCH (RBC) [Entitic mass] 29.9 pg 27.0-32.0 [facility] Mean corpuscular hemoglobin concentration (MCHC) determinationOrdered By: Jigna Brantley on 07-12-2024 MCHC (RBC) [Mass/Vol] 32.0 g/dL 32-36 [facility] Mean platelet volume determi nationOrdered By: Jigna Brantley on 07-12-2024 Platelet mean volume (Bld) [Entitic vol] 10.7 fL 6.2-12.0 [facility] Monocyte percentageOrdered B y: Jigna Brantley on 07-12-2024 Monocytes/100 WBC (Bld) 8.1 % 0-[address] [facility] Neutrophil percentageOrdered By: Jigna Brantley on 07-12-2024 Neutrophils/100 WBC (Bld) 73.7 % High 47-70 [facility] Nucleated red blood cell per centageOrdered By: Jigna Brantley on 07-12-2024 Nucleated RBC/100 WBC (Bld) [Ratio] 0 % 0-5 [facility] Platelet countOrdered By: Fabricio Brantley on 07-12-2024 Platelets (Bld) [#/Vol] 502 10*3/uL High 150-450 [facility] Potassium measurementOrdered By: Jigna Brantley on 07-12-2024 Potassium [Moles/Vol] 3.8 mmol/L 3.5-5.1 [facility] RBC Auto (Bld) [#/Vol]Ordere d By: Jigna Brantley on 07-12-2024 RBC (Bld) [#/Vol] 4.42 10*6/uL Low 4.6-6.2 [facility] Serum anion gap measurementO rdered By: Jigna Brantley on 07-12-2024 Anion gap [Moles/Vol] 5 mmol/L 5-15 [facility] Serum or plasma calcium rosalina urement (mass/volume)Ordered By: Jigna Brantley on 07-12-2024 Calcium [Mass/Vol] 9.6 mg/dL 8.5-10.1 [facility] Serum or plasma creatinine m easurement (mass/volume)Ordered By: Jigna Brantley on 07-12-2024 Creatinine [Mass/Vol] 1.19 mg/dL 0.70-1.30 [facility] Comment on above: The validity of the calculated GFR & GFRAA in patients over 70 years has not been determined. Clinical correlation is essential. Serum or plasma thyroid stim ulating hormone (TSH) measurement (units/volume)Ordered By: Jigna Brantley on 07-12-2024 TSH Qn 2.960 uIU/mL 0.358-3.740 [facility] Serum or plasma urea nitroge n measurement (mass/volume)Ordered By: Jigna Brantley on 07-12-2024 Urea nitrogen [Mass/Vol] 25 mg/dL High 7-18 [facility] Sodium levelOrdered By: Enoch Brantley on 07-12-2024 Sodium [Moles/Vol] 141 mmol/L 136-145 [facility] TSH QnOrdered By: Jigna jefferson on 07-12-2024 Thyroid Stimulating Hormone (TSH) 2.960 uIU/mL 0.358-3.740 [facility] Thyroid Stim Hormone (TSH)on 07-12-2024 TSH 2.960 uIU/mL Normal 0.358-3.740 [facility] Comment on above: Order Comment: 1 Y Performed By: #### L 500.4050, L503.6005, L300.8000, L100.0100, L501.5425 #### [facility] [address] [place], [address] Vitamin B12on 07-12-2024 Cobalamin (Vitamin B12) [Mass/Vol] 273 pg/mL Normal 211-911 [facility] Comment on above: Order Comment: 1 Y Performed By: #### L 500.4050, L503.6005, L300.8000, L100.0100, L501.5425 #### [facility] [address] [place], [address] Vitamin B12 measurementOrder ed By: Jigna Brantley on 07-12-2024 Cobalamin (Vitamin B12) [Mass/Vol] 273 pg/mL 211-911 [facility] Vitamin D,25 Hydroxyon 07-12 Vitamin D 25-OH 6.3 ng/mL Normal [facility] Comment on above: Order Comment: 1 Y Result Comment: Divine min D 25(OH) Status Range Deficiency <20 ng/mL (50nmol/L) Insufficiency 20 - 30 ng/mL (50 - 75 nmol/L) Sufficiency 30 - 100 ng/mL (75 - 250 nmol/L) Toxicity >100 ng/mL (>250 nmol/L) Performed By: #### L 500.4050, L503.6005, L300.8000, L100.0100, L501.5425 #### [facility] [address] [place], [address] White blood cell (WBC) count Ordered By: Jigna Brantley on 07-12-2024 WBC (Bld) [#/Vol] 10.3 10*3/uL 4.4-11.0 [facility] Bedside Glucoseon 07-11-2024 FINGERSTICK GLU 138 mg/dL High 74-106 [facility] Comment on above: Result Comment: KARUNA FELIX OF PATIENT CARE PER NURSING PROTOCOL Performed By: #### L 500.4050, L503.6005, L300.8000, L100.0100, L501.5425 #### [facility] [address] [place], [address] FINGERSTICK GLU 185 mg/dL High 74-106 [facility] Comment on above: Result Comment: KARUNA GEMENT OF PATIENT CARE PER NURSING PROTOCOL Performed By: #### L 500.4050, L503.6005, L300.8000, L100.0100, L501.5425 #### [facility] [address] [place], [address] FINGERSTICK GLU 105 mg/dL Normal -[address] [place] [address] Comment on above: Result Comment: KARUNA GEMENT OF PATIENT CARE PER NURSING PROTOCOL Performed By: #### L 500.4050, L503.6005, L300.8000, L100.0100, L501.5425 #### [facility] [address] [place], [address] [facility] deOrdered By: Yann Ascencio on 07-11-2024 Bedside Glucose (Misc Panel) 138 mg/dL High [address] [place] [address] Comment on above: MANAGEMENT OF PATIEN T CARE PER NURSING PROTOCOL Glucose [Mass/Vol] 138 mg/dL High 74-106 [facility] Comment on above: MANAGEMENT OF PATIEN T CARE PER NURSING PROTOCOL Absolute lymphocyte countOrd ered By: Yann Ascencio on 07-10-2024 Lymphocytes Auto (Unsp spec) [#/Vol] 0.60 10*3/uL Low 0.83-4.51 [facility] Absolute neutrophil countOrd ered By: Yann Ascencio on 07-10-2024 Neutrophils (Bld) [#/Vol] 7.5 10*3/uL 2.0-7.7 [facility] Automated lymphocyte count a s percentage of total leukocytesOrdered By: Yann Ascencio on 07-10-2024 Lymphocytes/100 WBC Auto (Unsp spec) 6.9 % Low 19-41 [facility] Basic Metabolic Profile (BMP )on 07-10-2024 BUN/CRE 17.5 RATIO Normal 10-20 [facility] Comment on above: Performed By: #### L 500.4050, L503.6005, L300.8000, L100.0100, L501.5425 #### [facility] [address] [place], [address] CA,Total 9.9 mg/dL Normal 8.5-10.1 [facility] Comment on above: Performed By: #### L 500.4050, L503.6005, L300.8000, L100.0100, L501.5425 #### [facility] [address] [place], [address] Chloride [Moles/Vol] 105 mmol/L Normal 98-107 [facility] Comment on above: Performed By: #### L 500.4050, L503.6005, L300.8000, L100.0100, L501.5425 #### [facility] [address] [place], [address] CO2 [Moles/Vol] 25.0 mmol/L Normal 21.0-32.0 [facility] Comment on above: Performed By: #### L 500.4050, L503.6005, L300.8000, L100.0100, L501.5425 #### [facility] [address] [place], [address] Creatinine [Mass/Vol] 1.03 mg/dL Normal 0.70-1.30 [facility] Comment on above: Result Comment: The validity of the calculated GFR GFRAA in patients over 70 years has not been determined. Clinical correlation is essential. Performed By: #### L 500.4050, L503.6005, L300.8000, L100.0100, L501.5425 #### [facility] [address] [place], [address] ECRCL 84.26 ml/min Normal [facility] Comment on above: Performed By: #### L 500.4050, L503.6005, L300.8000, L100.0100, L501.5425 #### [facility] [address] [place], [address] EST GFR - AA 93 mL/min Normal >60 [facility] Comment on above: Result Comment: Afri can Italian GFR Calc Performed By: #### L 500.4050, L503.6005, L300.8000, L100.0100, L501.5425 #### [facility] [address] [place], [address] GAP 8 Normal 5-15 [facility] Comment on above: Performed By: #### L 500.4050, L503.6005, L300.8000, L100.0100, L501.5425 #### [facility] [address] [place], [address] GFR/1.73 sq M.predicted among non-blacks MDRD (S/P/Bld) [Vol rate/Area] 76 mL/min/{1.73_m2} Normal >60 [facility] Comment on above: Result Comment: Non- GFR Calc Performed By: #### L 500.4050, L503.6005, L300.8000, L100.0100, L501.5425 #### [facility] [address] [place], [address] Glucose [Mass/Vol] 142 mg/dL High 74-106 [facility] Comment on above: Result Comment: Fast ing Glucose result greater than or equal to 126 mg/dL suggests DIABETES MELLITUS per A.D.A. criteria. Performed By: #### L 500.4050, L503.6005, L300.8000, L100.0100, L501.5425 #### [facility] [address] [place], [address] Potassium [Moles/Vol] 3.5 mmol/L Normal 3.5-5.1 [facility] Comment on above: Performed By: #### L 500.4050, L503.6005, L300.8000, L100.0100, L501.5425 #### [facility] [address] [place], [address] Sodium [Moles/Vol] 138 mmol/L Normal 136-145 [facility] Comment on above: Performed By: #### L 500.4050, L503.6005, L300.8000, L100.0100, L501.5425 #### [facility] [address] [place], [address] Urea nitrogen [Mass/Vol] 18 mg/dL Normal 7-18 [facility] Comment on above: Performed By: #### L 500.4050, L503.6005, L300.8000, L100.0100, L501.5425 #### [facility] [address] [place], [address] Basophil percentageOrdered B y: Yann Ascencio on 07-10-2024 Basophils/100 WBC (Bld) 0.1 % 0-1 [facility] Bedside Glucoseon 07-10-2024 FINGERSTICK GLU 148 mg/dL High 74-106 [facility] Comment on above: Result Comment: KARUNA GEMENT OF PATIENT CARE PER NURSING PROTOCOL Performed By: #### L 500.4050, L503.6005, L300.8000, L100.0100, L501.5425 #### [facility] [address] [place], [address] FINGERSTICK GLU 111 mg/dL High 74-106 [facility] Comment on above: Result Comment: KARUNA GEMENT OF PATIENT CARE PER NURSING PROTOCOL Performed By: #### L 501.7700 #### [facility] [address] [place], [address] FINGERSTICK GLU 147 mg/dL High 74-106 [facility] Comment on above: Result Comment: KARUNA GEMENT OF PATIENT CARE PER NURSING PROTOCOL Performed By: #### L 500.4050, L503.6005, L300.8000, L100.0100, L501.5425 #### [facility] [address] [place], [address] FINGERSTICK GLU 136 mg/dL High 74-106 [facility] Comment on above: Result Comment: KARUNA GEMENT OF PATIENT CARE PER NURSING PROTOCOL Performed By: #### L 501.080 #### [facility] [address] [place], [address] Blood urea nitrogen (BUN)/cr eatinine ratioOrdered By: Yann Ascencio on 07-10-2024 Urea nitrogen/Creatinine [Mass ratio] 17.5 mg/mg 10-20 [facility] CBC W/Diff, Automatedon 06-30 PATH REV Reviewed Normal [facility] Comment on above: Result Comment: Neut rophilic leukocytosis. Clinical correlation necessary. Sreekanth Zhou M.D. 07/10/24 AMENDED REPORT 07/10/24 1444 PATH REV previously reported as: September Performed By: #### L 500.4050, L503.6005, L300.8000, L100.0100, L501.5425 #### [facility] [address] [place], [address] Absolute Lymph 0.60 X10 3/uL Low 0.83-4.51 [facility] Comment on above: Performed By: #### L 500.4050, L503.6005, L300.8000, L100.0100, L501.5425 #### [facility] [address] [place], [address] Absolute Neut 7.5 X10 3/uL Normal 2.0-7.7 [facility] Comment on above: Performed By: #### L 500.4050, L503.6005, L300.8000, L100.0100, L501.5425 #### [facility] [address] [place], [address] Basophils/100 WBC (Bld) 0.1 % Normal 0-[address] [facility] Comment on above: Performed By: #### L 500.4050, L503.6005, L300.8000, L100.0100, L501.5425 #### [facility] [address] [place], [address] Eosinophils/100 WBC (Bld) 0.0 % Normal 0-5 [facility] Comment on above: Performed By: #### L 500.4050, L503.6005, L300.8000, L100.0100, L501.5425 #### [facility] [address] [place], [address] Erythrocyte distribution width (RBC) [Ratio] 12.9 % Normal 11.6-14.6 [facility] Comment on above: Performed By: #### L 500.4050, L503.6005, L300.8000, L100.0100, L501.5425 #### [facility] [address] [place], [address] Hematocrit (Bld) [Volume fraction] 38.3 % Low 40-54 [facility] Comment on above: Performed By: #### L 500.4050, L503.6005, L300.8000, L100.0100, L501.5425 #### [facility] [address] [place], [address] Hemoglobin (Bld) [Mass/Vol] 12.2 g/dL Low 13.0-16.5 [facility] Comment on above: Performed By: #### L 500.4050, L503.6005, L300.8000, L100.0100, L501.5425 #### [facility] [address] [place], [address] IG% 0.500 Normal 0.0-0.9 [facility] Comment on above: Result Comment: IG% - Immature Granulocytes (promyelocytes, myelocytes and metamyelocytes) > 1% indicates that a LEFT SHIFT is Present. Performed By: #### L 500.4050, L503.6005, L300.8000, L100.0100, L501.5425 #### [facility] [address] [place], [address] Lymphocytes/100 WBC (Bld) 6.9 % Low 19-41 [facility] Comment on above: Performed By: #### L 500.4050, L503.6005, L300.8000, L100.0100, L501.5425 #### [facility] [address] [place], [address] MCH (RBC) [Entitic mass] 30.0 pg Normal 27.0-32.0 [facility] Comment on above: Performed By: #### L 500.4050, L503.6005, L300.8000, L100.0100, L501.5425 #### [facility] [address] [place], [address] MCHC (RBC) [Mass/Vol] 31.9 g/dL Low 32-36 [facility] Comment on above: Performed By: #### L 500.4050, L503.6005, L300.8000, L100.0100, L501.5425 #### [facility] [address] [place], [address] MCV (RBC) [Entitic vol] 94.3 fL High 80-[address] [facility] Comment on above: Performed By: #### L 500.4050, L503.6005, L300.8000, L100.0100, L501.5425 #### [facility] [address] [place], [address] Monocytes/100 WBC (Bld) 6.6 % Normal 0-[address] [facility] Comment on above: Performed By: #### L 500.4050, L503.6005, L300.8000, L100.0100, L501.5425 #### [facility] [address] [place], [address] Neutrophils/100 WBC (Bld) 85.9 % High 47-70 [facility] Comment on above: Performed By: #### L 500.4050, L503.6005, L300.8000, L100.0100, L501.5425 #### [facility] [address] [place], [address] Nucleated RBC (Bld) [#/Vol] 0 10*3/uL Normal 0-5 [facility] Comment on above: Performed By: #### L 500.4050, L503.6005, L300.8000, L100.0100, L501.5425 #### [facility] [address] [place], [address] Platelet mean volume (Bld) [Entitic vol] 10.9 fL Normal 6.2-12.0 [facility] Comment on above: Performed By: #### L 500.4050, L503.6005, L300.8000, L100.0100, L501.5425 #### [facility] [address] [place], [address] Platelets (Bld) [#/Vol] 300 10*3/uL Normal 150-450 [facility] Comment on above: Performed By: #### L 500.4050, L503.6005, L300.8000, L100.0100, L501.5425 #### [facility] [address] [place], [address] RBC (Bld) [#/Vol] 4.06 10*6/uL Low 4.6-6.2 [facility] Comment on above: Performed By: #### L 500.4050, L503.6005, L300.8000, L100.0100, L501.5425 #### [facility] [address] [place], [address] RDW SD 44.8 fl High 35.1-43.9 [facility] Comment on above: Performed By: #### L 500.4050, L503.6005, L300.8000, L100.0100, L501.5425 #### [facility] [address] [place], [address] WBC (Bld) [#/Vol] 8.7 10*3/uL Normal 4.4-11.0 [facility] Comment on above: Performed By: #### L 500.4050, L503.6005, L300.8000, L100.0100, L501.5425 #### [facility] [address] [place], [address] Carbon dioxide measurementOr dered By: Yann Ascencio on 07-10-2024 CO2 [Moles/Vol] 25.0 mmol/L 21.0-32.0 [facility] Chloride measurementOrdered By: Yann Ascencio on 07-10-2024 Chloride [Moles/Vol] 105 mmol/L 98-107 [facility] Eosinophil percentageOrdered By: Yann Ascencio on 07-10-2024 Eosinophils/100 WBC (Bld) 0.0 % 0-5 [facility] Erythrocyte distribution wid th (RBC) [Ratio]Ordered By: Yann Ascencio on 07-10-2024 Erythrocyte distribution width (RBC) [Entitic vol] 44.8 fL High 35.1-43.9 [facility] Erythrocyte distribution wid th ratioOrdered By: Yann Ascencio on 07-10-2024 Erythrocyte distribution width (RBC) [Ratio] 12.9 % 11.6-14.6 [facility] Erythrocyte distribution wid th standard deviationOrdered By: Yann Ascencio on 07-10-2024 Erythrocyte distribution width (RBC) [Ratio] 44.8 fl High 35.1-43.9 [facility] Estimated glomerular filtrat ion rate (GFR) AmericanOrdered By: Yann Ascencio on 07-10-2024 Estimated GFR (MDRD) Amer 93 mL/min >60 [facility] Comment on above: GFR Calc Estimation of creatinine karlee aranceOrdered By: Yann Ascencio on 07-10-2024 Estimated Creatinine Clearance Calc 84.26 ml/min [facility] Glomerular filtration rate ( GFR) estimationOrdered By: Yann Ascencio on 07-10-2024 Estimated GFR (MDRD) Non-Af Amer 76 mL/min >60 [facility] Comment on above: Non- GFR Calc GFR/1.73 sq M.predicted among non-blacks MDRD (S/P/Bld) [Vol rate/Area] 76 mL/min/{1.73_m2} >60 [facility] Comment on above: Non- GFR Calc Glucose measurementOrdered B y: Yann Ascencio on 07-10-2024 Glucose [Mass/Vol] 142 mg/dL High 74-106 [facility] Comment on above: Fasting Glucose resu lt greater than or equal to 126 mg/dL suggests DIABETES MELLITUS per A.D.A. criteria. Hematocrit Auto (Bld) [Volum e fraction]Ordered By: Yann Ascencio on 07-10-2024 Hematocrit (Bld) [Volume fraction] 38.3 % Low 40-54 [facility] Hemoglobin A1con 07-10-2024 HbA1c (Bld) [Mass fraction] 6.0 % High 3.8-5.6 [facility] Comment on above: Result Comment: Norm al < 5.7 % Prediabetic 5.7 - 6.4 % Diabetic >or= 6.5 % Please note range changes. Performed By: #### L 500.4050, L503.6005, L300.8000, L100.0100, L501.7374 #### [facility] [address] [place], [address] Hemoglobin A1c percentageOrd ered By: Yann Ascencio on 07-10-2024 HbA1c (Bld) [Mass fraction] 6.0 % High 3.8-5.6 [facility] Comment on above: Normal < 5.7 % Predi abetic 5.7 - 6.4 % Diabetic >or= 6.5 % Please note range changes. Hemoglobin measurementOrdere d By: Yann Ascencio on 07-10-2024 Hemoglobin (Bld) [Mass/Vol] 12.2 g/dL Low 13.0-16.5 [facility] Immature granulocytes/100 WB C Auto (Bld)Ordered By: Yann Ascencio on 07-10-2024 Immature granulocytes/100 WBC (Bld) 0.500 % 0.0-0.9 [facility] Comment on above: IG% - Immature Granu locytes (promyelocytes, myelocytes and metamyelocytes) > 1% indicates that a LEFT SHIFT is Present. Lymphocytes Auto (Unsp spec) [#/Vol]Ordered By: Yann Ascencio on 07-10-2024 Lymphocytes (Bld) [#/Vol] 0.60 10*3/uL Low 0.83-4.51 [facility] Lymphocytes/100 WBC Auto (Un sp spec)Ordered By: Yann Ascencio on 07-10-2024 Lymphocytes/100 WBC (Bld) 6.9 % Low 19-41 [facility] MCV (mean corpuscular volume ) determinationOrdered By: Yann Ascencio on 07-10-2024 MCV (RBC) [Entitic vol] 94.3 fL High 80-[address] [facility] Mean corpuscular hemoglobin (MCH) determinationOrdered By: Yann Ascencio on 07-10-2024 MCH (RBC) [Entitic mass] 30.0 pg 27.0-32.0 [facility] Mean corpuscular hemoglobin concentration (MCHC) determinationOrdered By: Yann Ascencio on 07-10-2024 MCHC (RBC) [Mass/Vol] 31.9 g/dL Low 32-36 [facility] Mean platelet volume determi nationOrdered By: Yann Ascencio on 07-10-2024 Platelet mean volume (Bld) [Entitic vol] 10.9 fL 6.2-12.0 [facility] Monocyte percentageOrdered B y: Yann Ascencio on 07-10-2024 Monocytes/100 WBC (Bld) 6.6 % 0-[address] [facility] Neutrophil percentageOrdered By: Yann Ascencio on 07-10-2024 Neutrophils/100 WBC (Bld) 85.9 % High 47-70 [facility] Nucleated red blood cell per centageOrdered By: Yann Ascencio on 07-10-2024 Nucleated RBC/100 WBC (Bld) [Ratio] 0 % 0-5 [facility] Platelet countOrdered By: Damien Ascencio on 07-10-2024 Platelets (Bld) [#/Vol] 300 10*3/uL 150-450 [facility] Potassium measurementOrdered By: Yann Ascencio on 07-10-2024 Potassium [Moles/Vol] 3.5 mmol/L 3.5-5.1 [facility] RBC Auto (Bld) [#/Vol]Ordere d By: Yann Ascencio on 07-10-2024 RBC (Bld) [#/Vol] 4.06 10*6/uL Low 4.6-6.2 [facility] Serum anion gap measurementO rdered By: Yann Ascencio on 07-10-2024 Anion gap [Moles/Vol] 8 mmol/L 5-15 [facility] Serum or plasma calcium rosalina urement (mass/volume)Ordered By: Yann Ascencio on 07-10-2024 Calcium [Mass/Vol] 9.9 mg/dL 8.5-10.1 [facility] Serum or plasma creatinine m easurement (mass/volume)Ordered By: Yann Ascencio on 07-10-2024 Creatinine [Mass/Vol] 1.03 mg/dL 0.70-1.30 [facility] Comment on above: The validity of the calculated GFR & GFRAA in patients over 70 years has not been determined. Clinical correlation is essential. Serum or plasma urea nitroge n measurement (mass/volume)Ordered By: Yann Ascencio on 07-10-2024 Urea nitrogen [Mass/Vol] 18 mg/dL 7-18 [facility] Sodium levelOrdered By: Yann Ascencio on 07-10-2024 Sodium [Moles/Vol] 138 mmol/L 136-145 [facility] White blood cell (WBC) count Ordered By: Yann Ascencio on 07-10-2024 WBC (Bld) [#/Vol] 8.7 10*3/uL 4.4-11.0 [facility] 12 Lead EKGon 07-09-2024 12 Lead EKG [facility] Cardiovascular Services [address] [place] [address] 12 Lead EKG 07/09/24 0825 MR#: [id number] Acct: [id number] Name: REINA SULLIVAN Rep #: [id number] : 1955 69 From: Олег Andrade MD Attending Dr: Dr. Yann Ascencio DO Status: ADM IN Ordering Dr: Priscilla Reynaga MD Date: 07/09/24 Location: [facility] Sex: M C Admitted: 07/09/24 Test Reason [...] abnormality Abnormal ECG Confirmed by Олег Andrade ([id number]), web content editor MARLENE CAMP ([id number]) on 07/10/2024 10:05:21 AM Referred By: MELY Confirmed By: Олег Andrade 07/10/24 1005 Date Олег Andrade MD CC: Dr. Priscilla Reynaga MD; Dr. Yann Ascencio DO; Dr. Aric Zapien MD Signed Normal [facility] Albumin to globulin ratioOrd ered By: Priscilla Reynaga on 07-09-2024 Albumin/Globulin [Mass ratio] 0.7 {ratio} Low 0.9-2.4 [facility] Ankle min 3 Viewson 07-09-19 25 Ankle min 3 Views [facility] Imaging Services [address] [place] [address] Ankle min 3 Views MR#: [id number] Acct: [id number] Name: REINA SULLIVAN Rep #: [id number] : 1955 M 69 From: Roscoe emmanuel MD PCP: Dr. Aric Zapien MD Status: REG ER Study: Ankle min 3 Views Date of Exam: 07/09/24 Exam# [id number] Ordering Dr: Priscilla Reynaga MD EXAM: ANKLE MIN 3 VIEWS CLINICAL HISTORY: Pain following injury. COMPARISON: None. TECHNIQUE: Three views were obtained. FINDINGS: Diffuse soft tissue swelling. No fracture is seen. Small plantar spur. RAD/Ankle min 3 Views IMPRESSION: Diffuse soft tissue swelling. Reading Location: [place] [address] CC: Dr. Priscilla Reynaga MD; Dr. Aric Zapien MD Manager Of Network: Signed Normal [facility] Bedside Glucoseon 07-09-2024 FINGERSTICK GLU 132 mg/dL High 74-106 [facility] Comment on above: Result Comment: KARUNA GEMENT OF PATIENT CARE PER NURSING PROTOCOL Performed By: #### L 501.080 #### [facility] [address] [place], [address] FINGERSTICK GLU 152 mg/dL High [address] [facility] Comment on above: Result Comment: KARUNA GEMENT OF PATIENT CARE PER NURSING PROTOCOL Performed By: #### L 500.4050, L503.6005, L300.8000, L100.0100, L501.5425 #### [facility] [address] [place], [address] FINGERSTICK GLU 109 mg/dL High 74-106 [facility] Comment on above: Result Comment: KARUNA GEMENT OF PATIENT CARE PER NURSING PROTOCOL Performed By: #### L 500.4050, L503.6005, L300.8000, L100.0100, L501.5425 #### [facility] [address] [place], [address] Bilirubin Test strip Ql (U)O rdered By: Priscilla Reynaga on 07-09-2024 Bilirubin Ql (U) 1 mg/dL High Negative [facility] Comment on above: COLOR OF URINE MAY A FFECT DIPSTICK RESULTS. Bilirubin, totalOrdered By: Priscilla Reynaga on 07-09-2024 Bilirubin [Mass/Vol] 0.80 mg/dL 0.20-1.00 [facility] Comment on above: For patients on eltr ombopag therapy, use of Dimension [place] TBIL is not recommended. Chest 1 View (Portable)on Chest 1 View (Portable) [facility] Imaging Services [address] [place], [place] [address] Chest 1 View (Portable) MR#: [id number] Acct: [id number] Name: REINA SULLIVAN Rep #: [id number] : 1955 M 69 From: Jeffy Belle PCP: Dr. Aric Zapien MD Status: REG ER Study: Chest 1 View (Portable) Date of Exam: 07/09/24 Exam# [id number] Ordering Dr: Priscilla Reynaga MD PROCEDURE: CHEST [...] acute osseous process is seen. Reading Location: [address] CC: Dr. Priscilla Reynaga MD; Dr. Aric Zapien MD Manager Of Network: Signed Normal [facility] Comprehensive Metabolic Prof ilon 07-09-2024 Albumin [Mass/Vol] 2.9 g/dL Low 3.2-5.0 [facility] Comment on above: Performed By: #### L 500.4050, L503.6005, L300.8000, L100.0100, L501.5425 #### [facility] [address] [place], [address] Albumin/Globulin [Mass ratio] 0.7 {ratio} Low 0.9-2.4 [facility] Comment on above: Performed By: #### L 500.4050, L503.6005, L300.8000, L100.0100, L501.5425 #### [facility] [address] [place], [address] ALK P 68 U/L Normal 45-117 [facility] Comment on above: Performed By: #### L 500.4050, L503.6005, L300.8000, L100.0100, L501.5425 #### [facility] [address] [place], [address] ALT [Catalytic activity/Vol] 16 U/L Normal 16-61 [facility] Comment on above: Performed By: #### L 500.4050, L503.6005, L300.8000, L100.0100, L501.5425 #### [facility] [address] [place], [address] AST [Catalytic activity/Vol] 11 U/L Low 15-37 [facility] Comment on above: Performed By: #### L 500.4050, L503.6005, L300.8000, L100.0100, L501.5425 #### [facility] [address] [place], [address] Bilirubin [Mass/Vol] 0.80 mg/dL Normal 0.20-1.00 [facility] Comment on above: Result Comment: For patients on eltrombopag therapy, use of Dimension [place] TBIL is not recommended. Performed By: #### L 500.4050, L503.6005, L300.8000, L100.0100, L501.5425 #### [facility] [address] [place], [address] BUN/CRE 14.5 RATIO Normal 10-20 [facility] Comment on above: Performed By: #### L 500.4050, L503.6005, L300.8000, L100.0100, L501.5425 #### [facility] [address] [place], [address] CA,Total 9.3 mg/dL Normal 8.5-10.1 [facility] Comment on above: Performed By: #### L 500.4050, L503.6005, L300.8000, L100.0100, L501.5425 #### [facility] [address] [place], [address] Chloride [Moles/Vol] 104 mmol/L Normal 98-107 [facility] Comment on above: Performed By: #### L 500.4050, L503.6005, L300.8000, L100.0100, L501.5425 #### [facility] [address] [place], [address] CO2 [Moles/Vol] 27.0 mmol/L Normal 21.0-32.0 [facility] Comment on above: Performed By: #### L 500.4050, L503.6005, L300.8000, L100.0100, L501.5425 #### [facility] [address] [place], [address] Creatinine [Mass/Vol] 1.38 mg/dL High 0.70-1.30 [facility] Comment on above: Result Comment: The validity of the calculated GFR GFRAA in patients over 70 years has not been determined. Clinical correlation is essential. Performed By: #### L 500.4050, L503.6005, L300.8000, L100.0100, L501.5425 #### [facility] [address] [place], [address] ECRCL 66.83 ml/min Normal [facility] Comment on above: Performed By: #### L 500.4050, L503.6005, L300.8000, L100.0100, L501.5425 #### [facility] [address] [place], [address] EST GFR - AA 66 mL/min Normal >60 [facility] Comment on above: Result Comment: Afri can Italian GFR Calc Performed By: #### L 500.4050, L503.6005, L300.8000, L100.0100, L501.5425 #### [facility] [address] [place], [address] GAP 10 Normal 5-15 [facility] Comment on above: Performed By: #### L 500.4050, L503.6005, L300.8000, L100.0100, L501.5425 #### [facility] [address] [place], [address] GFR/1.73 sq M.predicted among non-blacks MDRD (S/P/Bld) [Vol rate/Area] 55 mL/min/{1.73_m2} Low >60 [facility] Comment on above: Result Comment: Non- GFR Calc Performed By: #### L 500.4050, L503.6005, L300.8000, L100.0100, L501.5425 #### [facility] [address] [place], [address] Globulin (S) [Mass/Vol] 4.4 g/dL High 2.2-4.[address] [facility] Comment on above: Performed By: #### L 500.4050, L503.6005, L300.8000, L100.0100, L501.5425 #### [facility] [address] [place], [address] Glucose [Mass/Vol] 117 mg/dL High 74-106 [facility] Comment on above: Result Comment: Fast ing Glucose result from 100 to 125 mg/dL suggests IMPAIRED HOMEOSTASIS per A.D.A. criteria. Performed By: #### L 500.4050, L503.6005, L300.8000, L100.0100, L501.5425 #### [facility] [address] [place], [address] Potassium [Moles/Vol] 3.1 mmol/L Low 3.5-5.1 [facility] Comment on above: Performed By: #### L 500.4050, L503.6005, L300.8000, L100.0100, L501.5425 #### [facility] [address] [place], [address] Sodium [Moles/Vol] 141 mmol/L Normal 136-145 [facility] Comment on above: Performed By: #### L 500.4050, L503.6005, L300.8000, L100.0100, L501.5425 #### [facility] [address] [place], [address] T PROT 7.3 g/dL Normal 6.4-8.2 [facility] Comment on above: Performed By: #### L 500.4050, L503.6005, L300.8000, L100.0100, L501.5425 #### [facility] [address] [place], [address] Urea nitrogen [Mass/Vol] 20 mg/dL High 7-18 [facility] Comment on above: Performed By: #### L 500.4050, L503.6005, L300.8000, L100.0100, L501.5425 #### [facility] [address] [place], [address] D-Dimer Quantitative (DVT/PE )on 07-09-2024 D-DIMER QUANT 1.11 FEU/ug/m Invalid Interpretation Code 0.27-0.49 [facility] Comment on above: Result Comment: D-Di phillip ELEVATED (>0.49): Additional studies and clinical assessments are indicated to conclude diagnosis of: Deep Vein Thrombosis (DVT) or Pulmonary Embolism (PE) CRITICAL VALUE CALLED TO Reddy CHRISTIE 07/09/24 0925 Vesta Gutierrez. RESULTS READ BACK BY . Performed By: #### L 500.4050, L503.6005, L300.8000, L100.0100, L501.5425 #### [facility] [address] [place], [place], [address] D-dimer measurement for deep venous thrombosisOrdered By: Priscilla Reynaga on 07-09-2024 D-Dimer Quantitative (PE/DVT) 1.11 FEU/ug/m High 0.27-0.49 [facility] Comment on above: D-Dimer ELEVATED (>0 .49): Additional studies and clinicalassessments are indicated to conclude diagnosis of:Deep Vein Thrombosis (DVT) or Pulmonary Embolism (PE)CRITICAL VALUE CALLED TO Reddy CHRISTIE07/09/24 0925 Vesta Gutierrez.RESULTS READ BACK BY . Echo Completeon 07-09-2024 Echo Complete [facility] Cardiovascular Services [address] [place] [address] Echo Complete 07/10/24 0827 MR#: [id number] Acct: [id number] Name: REINA SULLIVAN Rep #: [id number] : 1955 69 From: Estuardo Irby MD [...] Performed By: Ann-Marie Cao, MARY, RVT 07/10/24 1453 Date Estuardo Irby MD CC: Dr. Yann Ascencio DO; Dr. Aric Zapien MD Date Dictated: 07/10/24826 Date Transcribed: 07/10/241452 Manager Of Network: Mima Parr [facility] Emergency Department Summary on 07-09-2024 Emergency Department Summary [facility] Medical Records Department [address] [place] [address] Emergency Department Summary 07/09/24 MR#: [id number] Acct: [id number] Name: REINA SULLIVAN Rep #: [id number] : 1955 69 From: Priscilla Reynaga MD PCP: Dr. Aric Zapien MD Status:[facility] ER Location: ED HPI History of Present [...] or syncope. Prior similar symptoms: Yes PFSH PFS Medical History Essential hypertension Hx of thyroiditis Type 2 diabetes mellitus TIA (transient ischemic attack) [facility] (my[facility] infarction) Hyperlipidemia Atrial fibrillation with rapid [...] tablet 40 mg PO DAILY 11/17/22 Unknown Ms story blood pressure test kit-medium #1 ea [...] (more content not included)... Normal [facility] Epithelial cells.renal LM.HP F (Urine sed) [#/Area]Ordered By: Priscilla Reynaga on 07-09-2024 Urine Renal Epithelial Cells 0-5 SEEN /hpf 0-5 [facility] Epithelial cells.squamous LM Ql (Urine sed)Ordered By: Priscilla Reynaga on 07-09-2024 Epithelial cells.squamous LM.HPF (Urine sed) [#/Area] 0 /[HPF] 0-5 [facility] Fine Granular Casts LM.LPF ( Urine sed) [#/Area]Ordered By: Priscilla Reynaga on 07-09-2024 Urine Fine Granular Casts 0-5 SEEN /lpf 0-5 [facility] Foot min 3 Viewson 5 Foot min 3 Views [facility] Imaging Services [address] [place] [address] Foot min 3 Views MR#: [id number] Acct: [id number] Name: REINA SULLIVAN Rep #: [id number] : 1955 M 69 From: Roscoe emmanuel MD PCP: Dr. Aric Zapien MD Status: REG ER Study: Foot min 3 Views Date of Exam: 07/09/24 Exam# [id number] Ordering Dr: Priscilla Reynaga MD EXAM: FOOT MIN 3 VIEWS CLINICAL HISTORY: Pain following injury. COMPARISON: None TECHNIQUE: Three views were obtained. FINDINGS: Diffuse dorsal soft tissue swelling. RAD/Foot min 3 Views IMPRESSION: Diffuse dorsal soft tissue swelling. Reading Location: [place] [address] CC: Dr. Priscilla Reynaga MD; Dr. Aric Zapien MD Manager Of Network: Signed Normal [facility] Glucose Ql (U)Ordered By: Dmitry Reynaga on 07-09-2024 Urine Glucose (UA) Normal mg/dl Normal [facility] H AND P Exam - [facility] 07-09-2024 H&P Exam - Hospitalist [facility] Medical Records Department [address] [place] [address] H P Exam - Hospitalist 07/09/24 1039 MR#: [id number] Acct: [id number] Name: REINA SULLIVAN Rep #: [id number] : 1955 69 From: Yann Ascencio DO PCP: Dr. Aric Zapien MD Status:ADM IN Location: [facility] [id number] HPI - General General Date of Service: [...] morning due to the severe ankle pain. [facility] Medical History Essential hypertension Hx of thyroiditis Type 2 diabetes mellitus TIA (transient ischemic attack) [facility] (myocardial infarction) Hyperlipidemia Atrial fibrillation with rapid [...] 11/17/22 Unknown Hi story blood pressure test kit-[facility] #1 ea 06/23/23 Unknown Rx diltiazem HCl [...] (more content not included)... Normal [facility] Hyaline casts LM.LPF (Urine sed) [#/Area]Ordered By: Priscilla Reynaga on 07-09-2024 Hyaline casts (Urine sed) [#/Area] 5 /[LPF] 0-5 [facility] Hyaline casts LM Ql (Urine sed) 5-10 SEEN /lpf 0-5 [facility] Ketones Test strip Ql (U)Ord ered By: Priscilla Reynaga on 07-09-2024 Ketones Ql (U) 50 mg/dl High Negative [facility] L501.4020on 07-09-2024 TROPONIN-I HS 18 pg/mL Normal 3.0-78.0 [facility] Comment on above: Order Comment: 1 Y Result Comment: Plea se Note: New Test Units and Gender Specific Reference Ranges. For more information see Policy Stat Procedure [place] High Sensitivity Troponin (TNIH) and attachments. Performed By: #### L 500.4050, L503.6005, L300.8000, L100.0100, L501.5425 #### [facility] [address] [place], [address] TROPONIN-I HS 18 pg/mL Normal 3.0-78.0 [facility] Comment on above: Result Comment: Plea se Note: New Test Units and Gender Specific Reference Ranges. For more information see Policy Stat Procedure [place] High Sensitivity Troponin (TNIH) and attachments. Performed By: #### L 500.4050, L503.6005, L300.8000, L100.0100, L501.5425 #### [facility] [address] [place], [address] L501.5425on 07-09-2024 TROPONIN-I HS 15 pg/mL Normal 3.0-78.0 [facility] Comment on above: Order Comment: 1 Y Result Comment: Plea se Note: New Test Units and Gender Specific Reference Ranges. For more information see Policy Stat Procedure [place] High Sensitivity Troponin (TNIH) and attachments. Performed By: #### L 500.4050, L503.6005, L300.8000, L100.0100, L501.5425 #### [facility] [address] [place], [address] Laboratory - Chemistry and C hemistry - challengeOrdered By: Priscilla Reynaga on 07-09-2024 AST [Catalytic activity/Vol] 11 U/L Low 15-37 [facility] Lactic Acidon 07-09-2024 Lactate [Moles/Vol] 1.4 mmol/L Normal 0.4-1.9 [facility] Comment on above: Order Comment: Y Performed By: #### L 500.4050, L503.6005, L300.8000, L100.0100, L501.5459 #### [facility] [address] [place], [address] Lactic acid measurementOrder ed By: Priscilla Reynaga on 07-09-2024 Lactate [Moles/Vol] 1.4 mmol/L 0.4-2.0 [facility] Microscopic analysis of urin e for red blood cells (RBC)Ordered By: Priscilla Reynaga on 07-09-2024 Microscopic analysis of urine for red blood cells (RBC) 0-5 SEEN /hpf 0-5 [facility] Urine RBC 0-5 SEEN /hpf 0-5 [facility] Mucus LM Ql (Urine sed)Order ed By: Priscilla Reynaga on 07-09-2024 Mucus Ql (Urine sed) 1+ /hpf [facility] Nitrite Test strip Ql (U)Ord ered By: Priscilla Reynaga on 07-09-2024 Nitrite Ql (U) Negative Negative [facility] Pathologist review Ramses (Unsp spec) [Interp]Ordered By: Priscilla Reynaga on 07-09-2024 Differential Pathologist's Review Reviewed [facility] Comment on above: Previous reported re sult: May foll Edited by: SONDRA on 07/10/24:1444Neutrophilic leukocytosis.Clinical correlation necessary.Sreekanth Zhou M.D. 07/10/24 AMENDED REPORT 07/10/24 1444 PATH REV previously reported as: September cherelle Protein Test strip Ql (U)Ord ered By: Priscilla Reynaga on 07-09-2024 Protein Ql (U) 100 mg/dl High Negative [facility] Review by pathologistOrdered By: Priscilla Reynaga on 07-09-2024 Pathologist review Ramses (Unsp spec) [Interp] Reviewed [facility] Comment on above: Previous reported re sult: May foll Edited by: SONDRA on 07/10/24:1444Neutrophilic leukocytosis.Clinical correlation necessary.Sreekanth Zhou M.D. 07/10/24 AMENDED REPORT 07/10/24 1444 PATH REV previously reported as: Arlene villarreal Serum globulin measurementOr dered By: Priscilla Reynaga on 07-09-2024 Globulin (S) [Mass/Vol] 4.4 g/dL High 2.2-4.[address] [facility] Serum or plasma alanine chatterjee otransferase (ALT) measurementOrdered By: Priscilla Reynaga on 07-09-2024 ALT [Catalytic activity/Vol] 16 U/L 16-61 [facility] Serum or plasma albumin rosalina urement (mass/volume)Ordered By: Priscilla Reynaga on 07-09-2024 Albumin [Mass/Vol] 2.9 g/dL Low 3.2-5.0 [facility] Serum or plasma alkaline elvis sphatase measurementOrdered By: Priscilla Reynaga on 07-09-2024 ALP [Catalytic activity/Vol] 68 U/L 45-117 [facility] Serum or plasma uric acid me asurement (mass/volume)Ordered By: Yann Ascencio on 07-09-2024 Urate [Mass/Vol] 7.5 mg/dL High 3.5-7.2 [facility] Comment on above: The drugs N-Acetylcy steine and Metamizole may falsely depress this assay. Squamous epithelial cells de tection in urine sediment by light microscopyOrdered By: Priscilla Reynaga on 07-09-2024 Epithelial cells.squamous LM Ql (Urine sed) 0 SEEN /hpf 0-5 [facility] Total proteinOrdered By: Taj Reynaga on 07-09-2024 Protein [Mass/Vol] 7.3 g/dL 6.4-8.2 [facility] Troponin IOrdered By: Yann gandara on 07-09-2024 Troponin I 18 pg/mL 3.0-78.0 [facility] Comment on above: Please Note: New Yudith t Units and Gender Specific Reference Ranges. For more information see Policy Stat Procedure [place] High Sensitivity Troponin (TNIH) and attachments. Troponin I High Sensitivity 18 pg/mL 3.0-78.0 [facility] Comment on above: Please Note: New Yudith t Units and Gender Specific Reference Ranges. For more information see Policy Stat Procedure [place] High Sensitivity Troponin (TNIH) and attachments. Uric Acidon 07-09-2024 URIC 7.5 mg/dL High 3.5-7.2 [facility] Comment on above: Result Comment: The drugs N-Acetylcysteine and Metamizole may falsely depress this assay. Performed By: #### L 500.4050, L503.6005, L300.8000, L100.0100, L501.5425 #### [facility] [address] [place], [address] Urinalysis, Completeon 07-09 CAST,WBC 0-5 SEEN Normal None Seen [facility] Comment on above: Order Comment: TORI CTOR TO SPECIFY Performed By: #### L 500.4050, L503.6005, L300.8000, L100.0100, L501.5425 #### [facility] [address] [place], [place], [facility] CAST,FINE GRAN 0-5 SEEN Normal 0-5 [facility] Comment on above: Order Comment: TORI CTOR TO SPECIFY Performed By: #### L 500.4050, L503.6005, L300.8000, L100.0100, L501.5425 #### [facility] [address] [place], [address] CAST,HYALINE 5-10 SEEN Normal 0-5 [facility] Comment on above: Order Comment: TORI CTOR TO SPECIFY Performed By: #### L 500.4050, L503.6005, L300.8000, L100.0100, L501.5425 #### [facility] [address] [place], [address] EPI,RENAL 0-5 SEEN Normal 0-5 [facility] Comment on above: Order Comment: TORI CTOR TO SPECIFY Performed By: #### L 500.4050, L503.6005, L300.8000, L100.0100, L501.5425 #### [facility] [address] [place], [address] Mucus Ql (Urine sed) 1+ /hpf Normal [facility] Comment on above: Order Comment: COLLE CTOR TO SPECIFY Performed By: #### L 500.4050, L503.6005, L300.8000, L100.0100, L501.5425 #### [facility] [address] [place], [address] RBC 0-5 SEEN Normal 0-5 [facility] Comment on above: Order Comment: [facility] CTOR TO SPECIFY Performed By: #### L 500.4050, L503.6005, L300.8000, L100.0100, L501.5425 #### [facility] [address] [place], [address] WBC 0-5 SEEN Normal 0-5 [facility] Comment on above: Order Comment: [facility] CTOR TO SPECIFY Performed By: #### L 500.4050, L503.6005, L300.8000, L100.0100, L501.5425 #### [facility] [address] [place], [address] BACTERIA 0 SEEN Normal None Seen [facility] Comment on above: Order Comment: [facility] CTOR TO SPECIFY Performed By: #### L 500.4050, L503.6005, L300.8000, L100.0100, L501.5425 #### [facility] [address] [place], [address] EPI,SQUAMOUS 0 SEEN Normal 0-5 [facility] Comment on above: Order Comment: COLLE CTOR TO SPECIFY Performed By: #### L 500.4050, L503.6005, L300.8000, L100.0100, L501.5425 #### [facility] [address] [place], [address] Urine blood detectionOrdered By: Priscilla Reynaga on 07-09-2024 Urine Occult Blood 10 /ul High Negative [facility] Urine clarityOrdered By: Taj Reynaga on 07-09-2024 Clarity (U) Clear Clear [facility] Urine color determinationOrd ered By: Priscilla Reynaga on 07-09-2024 Color (U) Yellow Yellow [facility] Urine glucose detectionOrder ed By: Priscilla Reynaga on 07-09-2024 Glucose Ql (U) Normal mg/dl Normal [facility] Urine leukocyte esterase det ection by dipstickOrdered By: Priscilla Reynaga on 07-09-2024 Leukocyte esterase Test strip Ql (U) 25 /ul High Negative [facility] Urine pHOrdered By: Priscilla Wynn outhern on 07-09-2024 pH (U) 6.0 [pH] 5.0 - 8.0 [facility] Urine sediment bacteria coun t by microscopy (number/high power field)Ordered By: Priscilla Reynaga on 07-09-2024 Bacteria LM.HPF (Urine sed) [#/Area] 0 /[HPF] None Seen [facility] Urine sediment fine granular cast count by microscopy (number/low power field)Ordered By: Priscilla Reynaga on 07-09-2024 Fine Granular Casts LM.LPF (Urine sed) [#/Area] 0-5 SEEN /lpf 0-5 [facility] Urine sediment leukocyte yanira t count by microscopy (number/low power field)Ordered By: Priscilla Reynaga on 07-09-2024 WBC casts LM.LPF (Urine sed) [#/Area] 0-5 SEEN /lpf None Seen [facility] Urine sediment renal epithel ial cell count by microscopy (number/high power field)Ordered By: Priscilla Reynaga on 07-09-2024 Epithelial cells.renal LM.HPF (Urine sed) [#/Area] 0 /[HPF] 0-5 [facility] Urine specific gravity measu rementOrdered By: Priscilla Reynaga on 07-09-2024 Specific gravity (U) [Rel density] 1.020 1.002-1.030 [facility] Urine urobilinogen measureme ntOrdered By: Priscilla Reynaga on 07-09-2024 Urobilinogen Ql (U) 1 mg/dl High Normal [facility] Urobilinogen Ql (U)Ordered B y: Priscilla Reynaga on 02-10-2025 Urobilinogen (U) [Mass/Vol] 1 mg/dL High Normal [facility] Venous Duplex US - Noam Extre [facility] 07-09-2024 Venous Duplex US - Noam Extrem [facility] [place] [address] Venous Duplex US - Noam Extrem 07/09/24 1014 MR#: [id number] Acct: [id number] Name: REINA SULLIVAN Rep #: [id number] : 1955 69 From: Yann Miller MD Attending Dr: Dr. Yann Ascencio, DO Status: ADM IN Ordering Dr: Priscilla Reynaga MD Date: 07/09/24 Location: [facility] Sex: M C Admitted: 07/09/24 Reason For [...] Aric Zapien Performed By: Damaris Dudley, RVT 07/10/24 1556 Date Yann Miller MD CC: Dr. Priscilla Reynaga MD; Dr. Yann Ascencio DO; Dr. Aric Zapien MD Date Dictated: 07/09/24 1014 Date Transcribed: 07/10/241555 Manager Of Network: Signed Normal [facility] WBC casts LM.LPF (Urine sed) [#/Area]Ordered By: Priscilla Reynaga on 07-09-2024 Urine White Blood Cell Casts 0-5 SEEN /lpf None Seen [facility] White blood cell countOrdere d By: Priscilla Reynaga on 07-09-2024 Urine WBC 0-5 SEEN /hpf 0-5 [facility] White blood cell count 0-5 SEEN /hpf 0-5 [facility] CNPNon 06-26-2024 CNPN Telephone ([facility]) REINA SULLIVAN ([id number]) 1955 M Date Time Provider Department 06/26/24 [...] unspecified na*09/30/2022 Left atrial enlargement [I51.7] 09/30/2022 residential current use of 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 *09/30/2022 Migraine [...] Encounter Status:Closed by RODOLFO WERNER on 06/26/24 [facility] ([id number]) 1955 M Date Time Provider Department 06/25/24 [facility] During your visit today, we recorded the following information about you: Florinda Stevenson APRN.[facility] 06/25/2024 7:58 AM Signed Please let patient [...] call back for results. Karla Ferguson MA Melina Mecca 06/25/2024 11:02 AM Signed Patient returned missed call and received the provider's message. He voiced understanding. Patient requests all medical updates be discussed with his ex-spouse, Halima Sullivan. 06/16/24 telephone encounter routed to [facility] for back, neck, and spine pool again for scheduling consultation with orthopaedic resource protection specialist. Felicita Bolden MA 06/25/2024 11:52 AM [...] unspecified na*09/30/2022 Left atrial enlargement [I51.7] 09/30/2022 residential current use of 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 *09/30/2022 Migraine [...] Status:Closed by FELICITA BOLDEN on 06/25/24 Normal [facility] ALBUMIN/CREATININE RATIO, UR INEon 06-22-2024 Albumin DL <= 20 mg/L (U) [Mass/Vol] 223.9 mg/L Normal [facility] Comment on above: Order Comment: Speci men Type: URINE SPECIMENOrdering Facility: [facility] Address: [address] [place] [address] Performed By: #### U ACR ####[facility]CL[facility] [id number] [place] [address] [place] Albumin/Creatinine (U) [Mass ratio] 262 mg/g High <30 [facility] Comment on above: Order Comment: Speci men Type: URINE SPECIMENOrdering Facility: [facility] Address: [address] [place] [address] Result Comment: Adul t Male and Female Nephrotic Criteria: <30 mg/g is considered normal to mildly increased 30-300 mg/g is considered moderately increased >300 mg/g is considered severely increased KDIGO. (2013). KDIGO 2012 Clinical Practice Guideline for the Evaluation and Management of Chronic Kidney Disease. Official Journal of the International Society of Nephrology, 3(1), 1-150. Performed By: #### U ACR ####[facility]CL[facility] [id number] [place] [address] [place] Creatinine (U) [Mass/Vol] 85.6 mg/dL Normal 20.0-300.0 [facility] Comment on above: Order Comment: Speci men Type: URINE SPECIMENOrdering Facility: [facility] Address: [address] [place] [address] Performed By: #### U ACR ####[facility]CL[facility] [id number] [place] [address] [place] CBC W Auto Differential pane l (Bld)on 06-22-2024 Basophils (Bld) [#/Vol] 0.09 10*3/uL Normal <0.11 [facility] Comment on above: Order Comment: Speci men Type: BLOOD SPECIMENOrdering Facility: [facility] Address: [address] [place] [address] Performed By: #### 5 7021-8 ####[facility]CL[facility] [id number] [place] [address] [place] Basophils/100 WBC (Bld) 0.8 % Normal [facility] Comment on above: Order Comment: Speci men Type: BLOOD SPECIMENOrdering Facility: [facility] Address: [address] [place] [address] Performed By: #### 5 7021-8 ####[facility] [id number] [place] [address] [place] Differential cell count method Nom (Bld) Auto Normal [facility] Comment on above: Order Comment: Speci men Type: BLOOD SPECIMENOrdering Facility: [facility] Address: [address] [place] [address] Performed By: #### 5 7021-8 ####[facility]CL[facility] [id number] [place] [address] [place] Eosinophils (Bld) [#/Vol] 0.07 10*3/uL Normal <0.46 [facility] Comment on above: Order Comment: Speci men Type: BLOOD SPECIMENOrdering Facility: [facility] Address: [address] [place] [address] Performed By: #### 5 7021-8 ####[facility] [id number] [place] [address] [place] Eosinophils/100 WBC (Bld) 0.7 % Normal [facility] Comment on above: Order Comment: Speci men Type: BLOOD SPECIMENOrdering Facility: [facility] Address: [address] [place] [address] Performed By: #### 5 7021-8 ####[facility] [id number] [place] [address] [place] Erythrocyte distribution width (RBC) [Ratio] 13.5 % Normal 11.5-15.0 [facility] Comment on above: Order Comment: Speci men Type: BLOOD SPECIMENOrdering Facility: [facility] Address: [address] [place] [address] Performed By: #### 5 7021-8 ####[facility]CLIA [id number] [place] [address] [place] Hematocrit (Bld) [Volume fraction] 45.6 % Normal 39.0-51.0 [facility] Comment on above: Order Comment: Speci men Type: BLOOD SPECIMENOrdering Facility: [facility] Address: [address] [place] [address] Performed By: #### 5 7021-8 ####[facility] [id number] [place] [address] [place] Hemoglobin (Bld) [Mass/Vol] 14.9 g/dL Normal 13.0-17.0 [facility] Comment on above: Order Comment: Speci men Type: BLOOD SPECIMENOrdering Facility: [facility] Address: [address] [place] [address] Performed By: #### 5 7021-8 ####[facility]CL[facility] [id number] [place] [address] [place] Immature granulocytes (Bld) [#/Vol] 0.13 10*3/uL High <0.10 [facility] Comment on above: Order Comment: Speci men Type: BLOOD SPECIMENOrdering Facility: [facility] Address: [address] [place] [address] Performed By: #### 5 7021-8 ####[facility] [id number] [place] [address] [place] Immature granulocytes/100 WBC (Bld) 1.2 % Normal [facility] Comment on above: Order Comment: Speci men Type: BLOOD SPECIMENOrdering Facility: [facility] Address: [address] [place] [address] Performed By: #### 5 7021-8 ####[facility]CL[facility] [id number] [place] [address] [place] Lymphocytes (Bld) [#/Vol] 1.87 10*3/uL Normal 1.00-4.00 [facility] Comment on above: Order Comment: Speci men Type: BLOOD SPECIMENOrdering Facility: [facility] Address: [address] [place] [address] Performed By: #### 5 7021-8 ####[facility]CLIA [id number] [place] [address] [place] Lymphocytes/100 WBC (Bld) 17.4 % Normal [facility] Comment on above: Order Comment: Speci men Type: BLOOD SPECIMENOrdering Facility: [facility] Address: [address] [place] [address] Performed By: #### 5 7021-8 ####[facility]CL[facility] [id number] [place] [address] [place] MCH (RBC) [Entitic mass] 30.8 pg Normal 26.0-34.0 [facility] Comment on above: Order Comment: Speci men Type: BLOOD SPECIMENOrdering Facility: [facility] Address: [address] [place] [address] Performed By: #### 5 7021-8 ####[facility] [id number] [place] [address] [place] MCHC (RBC) [Mass/Vol] 32.7 g/dL Normal 30.5-36.0 [facility] Comment on above: Order Comment: Speci men Type: BLOOD SPECIMENOrdering Facility: [facility] Address: [address] [place] [address] Performed By: #### 5 7021-8 ####[facility] [id number] [place] [address] [place] MCV (RBC) [Entitic vol] 94.2 fL Normal 80.0-100.0 [facility] Comment on above: Order Comment: Speci men Type: BLOOD SPECIMENOrdering Facility: [facility] Address: [address] [place] [address] Performed By: #### 5 7021-8 ####[facility] [id number] [place] [address] [place] Monocytes (Bld) [#/Vol] 0.96 10*3/uL High <0.87 [facility] Comment on above: Order Comment: Speci men Type: BLOOD SPECIMENOrdering Facility: [facility] Address: [address] [place] [address] Performed By: #### 5 7021-8 ####[facility] [id number] [place] [address] [place] Monocytes/100 WBC (Bld) 8.9 % Normal [facility] Comment on above: Order Comment: Speci men Type: BLOOD SPECIMENOrdering Facility: [facility] Address: [address] [place] [address] Performed By: #### 5 7021-8 ####[facility]CLIA [id number] [place] [address] [place] Neutrophils (Bld) [#/Vol] 7.61 10*3/uL High 1.45-7.50 [facility] Comment on above: Order Comment: Speci men Type: BLOOD SPECIMENOrdering Facility: [facility] Address: [address] [place] [address] Performed By: #### 5 7021-8 ####[facility] [id number] [place] [address] [place] Neutrophils/100 WBC (Bld) 71.0 % Normal [facility] Comment on above: Order Comment: Speci men Type: BLOOD SPECIMENOrdering Facility: [facility] Address: [address] [place] [address] Performed By: #### 5 7021-8 ####[facility]CL[facility] [id number] [place] [address] [place] Nucleated RBC (Bld) [#/Vol] 10*3/uL Normal <0.01 [facility] Comment on above: Order Comment: Speci men Type: BLOOD SPECIMENOrdering Facility: [facility] Address: [address] [place] [address] Performed By: #### 5 7021-8 ####[facility]CL[facility] [id number] [place] [address] [place] Nucleated RBC/100 WBC (Bld) [Ratio] 0.0 /100 WBC Normal [facility] Comment on above: Order Comment: Speci men Type: BLOOD SPECIMENOrdering Facility: [facility] Address: [address] [place] [address] Performed By: #### 5 7021-8 ####[facility]CL[facility] [id number] [place] [address] [place] Platelet mean volume (Bld) [Entitic vol] 10.8 fL Normal 9.0-12.7 [facility] Comment on above: Order Comment: Speci men Type: BLOOD SPECIMENOrdering Facility: [facility] Address: [address] [place] [address] Performed By: #### 5 7021-8 ####[facility]CL[facility] [id number] [place] [address] [place] Platelets (Bld) [#/Vol] 422 10*3/uL High 150-400 [facility] Comment on above: Order Comment: Speci men Type: BLOOD SPECIMENOrdering Facility: [facility] Address: [address] [place] [address] Performed By: #### 5 7021-8 ####[facility]IA [id number] [place] [address] [place] RBC (Bld) [#/Vol] 4.84 10*6/uL Normal 4.20-6.00 [facility] Comment on above: Order Comment: Speci men Type: BLOOD SPECIMENOrdering Facility: [facility] Address: [address] [place] [address] Performed By: #### 5 7021-8 ####[facility]IA [id number] [place] [address] [place] WBC (Bld) [#/Vol] 10.73 10*3/uL Normal 3.70-11.00 [facility] Comment on above: Order Comment: Speci men Type: BLOOD SPECIMENOrdering Facility: [facility] Address: [address] [place] [address] Performed By: #### 5 7021-8 ####[facility]IA [id number] [place] [address] [place] CNOVon 06-22-2024 CNOV Office Visit (FAMPWS ) REINA SULLIVAN ([id number]) 1955 M Date Time Provider Department 06/22/24 1:20 PM FLORINDA STEVENSON During your visit today, we recorded the following information about you: Temperature Pulse Blood pressure 97.8 degrees 88/minute 118/76 Florinda Stevenson, LOGGING SPECIALIST.STABLE CLEANER 06/22/2024 2:00 PM Signed This is a [...] PAST MEDICAL HISTORY Diagnosis Date Atrial fibrillation ([facility]) Dr. 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 Huston TBI (traumatic brain injury) ([facility]) 2 times PAST SURGICAL HISTORY Procedure Laterality [...] x da (more content not included)... Normal [facility] REINA SULLIVAN ([id number]) 1955 M Date Time Provider Department 06/22/24 ARIC ZAPIEN [facility] During your visit today, we recorded the following information about you: Rebecca Dumas RN 06/22/2024 4:39 PM Signed Asking for provider to clarify pt's order for [facility]. Does patient need to see a surgeon? Please advise so that PSS staff can schedule patient appropriately. BROOKLYN Malone Jacqueline A, APRN.[facility] 06/22/2024 5:04 PM Signed Yes. 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 Does not need surgery but they can evaluate for kyphoplasty- setting the compression if needed Allergies As of Date: 06/22/2024 Noted Allergy Reaction DYE 03/02/2016 14 - Other: See Comments Comments: used for heart cath Date Reviewed: 06/22/2024 Reviewed by: Felicita Bolden MA - Fully Assessed Reason for Visit: Patient Question [5337] Prescriptions as of 06/22/2024 - methocarbamol (ROBAXIN) [...] unspecified na*09/30/2022 Left atrial enlargement [I51.7] 09/30/2022 residential current use of 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 *09/30/2022 Migraine [...] Status:Closed by FELICITA BOLDEN on 06/22/24 Normal [facility] Comprehensive metabolic 2000 panelon 06-22-2024 Albumin [Mass/Vol] 4.2 g/dL Normal 3.9-4.9 [facility] Comment on above: Order Comment: Speci men Type: BLOOD SPECIMENOrdering Facility: [facility] Address: [address] [place] [address] Performed By: #### 2 4323-8, 57674-5, LIPNF, 2276-4 ####[facility] LABCLIA [id number] [place] [address] [place] ALP [Catalytic activity/Vol] 124 U/L High 38-113 [facility] Comment on above: Order Comment: Speci men Type: BLOOD SPECIMENOrdering Facility: [facility] Address: [address] [place] [address] Performed By: #### 2 4323-8, 76992-8, LIPNF, 2276-4 ####[facility] LABCLIA [id number] [place] [address] [place] ALT [Catalytic activity/Vol] 19 U/L Normal 10-54 [facility] Comment on above: Order Comment: Speci men Type: BLOOD SPECIMENOrdering Facility: [facility] Address: [address] [place] [address] Performed By: #### 2 4323-8, 29897-5, LIPNF, 6-4 ####[facility]CLIA [id number] [place] [address] [place] Anion gap [Moles/Vol] 15 mmol/L Normal 8-15 [facility] Comment on above: Order Comment: Speci men Type: BLOOD SPECIMENOrdering Facility: [facility] Address: [address] [place] [address] Performed By: #### 2 4323-8, 88082-6, LIPNF, 6-4 ####[facility]CLIA [id number] [place] [address] [place] AST [Catalytic activity/Vol] 19 U/L Normal 14-40 [facility] Comment on above: Order Comment: Speci men Type: BLOOD SPECIMENOrdering Facility: [facility] Address: [address] [place] [address] Performed By: #### 2 4323-8, 62873-9, LIPNF, 6-4 ####[facility]CLIA [id number] [place] [address] [place] Bilirubin [Mass/Vol] 0.7 mg/dL Normal 0.2-1.3 [facility] Comment on above: Order Comment: Speci men Type: BLOOD SPECIMENOrdering Facility: [facility] Address: [address] [place] [address] Performed By: #### 2 4323-8, 09086-7, LIPNF, 2276-4 ####[facility]CLIA [id number] [place] [address] [place] Calcium [Mass/Vol] 9.2 mg/dL Normal 8.5-10.2 [facility] Comment on above: Order Comment: Speci men Type: BLOOD SPECIMENOrdering Facility: [facility] Address: [address] [place] [address] Performed By: #### 2 4323-8, 59504-3, LIPNF, 6-4 ####[facility]CLIA [id number] [place] [address] [place] Chloride [Moles/Vol] 102 mmol/L Normal 98-107 [facility] Comment on above: Order Comment: Speci men Type: BLOOD SPECIMENOrdering Facility: [facility] Address: [address] [place] [address] Performed By: #### 2 4323-8, 88467-8, LIPNF, 2275-4 ####[facility]CLIA [id number] [place] [address] [place] CO2 [Moles/Vol] 23 mmol/L Normal 22-30 [facility] Comment on above: Order Comment: Speci men Type: BLOOD SPECIMENOrdering Facility: [facility] Address: [address] [place] [address] Performed By: #### 2 4323-8, 54203-8, LIPNF, 2275-4 ####[facility]CLIA [id number] [place] [address] [place] Creatinine [Mass/Vol] 1.42 mg/dL High 0.73-1.22 [facility] Comment on above: Order Comment: Speci men Type: BLOOD SPECIMENOrdering Facility: [facility] Address: [address] [place] [address] Performed By: #### 2 4323-8, 77637-2, LIPNF, 2276-4 ####[facility]CLIA [id number] [place] [address] [place] Creatinine and Glomerular filtration rate.predicted panel (S/P/Bld) 54 mL/min/1.73m??? Low >=60 [facility] Comment on above: Order Comment: Lynn de guzman Type: BLOOD SPECIMENOrdering Facility: [facility] Address: [address] [place] [address] Result Comment: Tatiana mated Glomerular Filtration Rate [...] actual GFR. Performed By: #### 2 4323-8, 19488-2, ANA, 6-4 ####[facility]CLIA [id number] [place] [address] [place] Glucose [Mass/Vol] 86 mg/dL Normal 74-99 [facility] Comment on above: Order Comment: Lynn de guzman Type: BLOOD SPECIMENOrdering Facility: [facility] Address: [address] [place] [address] Result Comment: The [place] Diabetes Association (ADA) provides guidance for cutoff [...] Standards of Medical Care in Diabetes 2016, [place] Diabetes Association. Diabetes Care. 2016.39(Suppl 1). Performed By: #### 2 4323-8, 38326-3, LIPYAMILET, 2275-4 ####[facility]CLIA [id number] [address] [address] [place] Potassium [Moles/Vol] 4.2 mmol/L Normal 3.7-5.1 [facility] Comment on above: Order Comment: Speci men Type: BLOOD SPECIMENOrdering Facility: [facility] Address: [address] [place] [address] Performed By: #### 2 4323-8, 18905-3, LIPNF, 2275-4 ####[facility]CLIA [id number] [place] [address] [place] Protein [Mass/Vol] 7.1 g/dL Normal 6.3-8.0 [facility] Comment on above: Order Comment: Speci men Type: BLOOD SPECIMENOrdering Facility: [facility] Address: [address] [place] [address] Performed By: #### 2 4323-8, 79692-1, LIPNF, 2275-4 ####[facility] LABIA [id number] [place] [address] [place] Sodium [Moles/Vol] 140 mmol/L Normal 136-144 [facility] Comment on above: Order Comment: Speci men Type: BLOOD SPECIMENOrdering Facility: [facility] Address: [address] [place] [address] Performed By: #### 2 4323-8, 38974-8, LIPNF, 2275-4 ####[facility] LABIA [id number] [place] [address] [place] Urea nitrogen [Mass/Vol] 22 mg/dL Normal 9-24 [facility] Comment on above: Order Comment: Speci men Type: BLOOD SPECIMENOrdering Facility: [facility] Address: [address] [place] [address] Performed By: #### 2 4323-8, 08632-8, LIPNF, 2275-4 ####[facility] LABCLIA [id number] [place] [id number] [place] Ferritin SerPl-mCncon 2024 Ferritin [Mass/Vol] 142.0 ng/mL Normal 30.3-565.7 [facility] Comment on above: Order Comment: Speci men Type: BLOOD SPECIMENOrdering Facility: [facility] Address: [address] [place] [address] Performed By: #### 2 4323-8, 40990-4, LIPNF, 2276-4 ####[facility]CLIA [id number] [place] [address] [place] HbA1c (Bld)on 06-22-2024 Average glucose Estimated from glycated hemoglobin (Bld) [Mass/Vol] 126 mg/dL Normal [facility] Comment on above: Order Comment: Lynn de guzman Type: BLOOD SPECIMENOrdering Facility: [facility] Address: [address] [place] [address] Result Comment: eAG: (Estimated average glucose) is a calculated value from HgbA1c and is area representative of the average blood glucose level in the last 2-3 month period. Performed By: #### 5 5454-3 ####[facility]CLIA [id number] [place] [address] [place] HbA1c (Bld) [Mass fraction] 6.0 % High 4.3-5.6 [facility] Comment on above: Order Comment: Lynn de guzman Type: BLOOD SPECIMENOrdering Facility: [facility] Address: [address] [place] [address] Result Comment: Amer [place] Diabetes Association guidelines indicate that patients with HgbA1c in the range 5.7-6.4% are at increased risk for development of diabetes, and intervention by lifestyle modification may be beneficial. HgbA1c greater or equal to 6.5% is considered diagnostic of diabetes. Performed By: #### 5 5454-3 ####[facility]CLIA [id number] [place] [address] [place] Iron and Iron binding capaci ty panelon 06-22-2024 Iron [Mass/Vol] 76 ug/dL Normal 41-186 [facility] Comment on above: Order Comment: Jacquesi men Type: BLOOD SPECIMENOrdering Facility: [facility] Address: [address] [place], [place] [address] Performed By: #### 2 4323-8, 27134-2, LIPNF, 2275-4 ####[facility]CLIA [id number] [address] [address] [place] Iron binding capacity [Mass/Vol] 345 ug/dL Normal 232-386 [facility] Comment on above: Order Comment: Speci men Type: BLOOD SPECIMENOrdering Facility: [facility] Address: [address] [place], [place] [address] Performed By: #### 2 4323-8, 61834-6, LIPNF, 2275-4 ####[facility] LABCLIA [id number] [address] [address] [place] Iron/TIBC [Molar ratio] 22.0 % Normal 15.0-57.0 [facility] Comment on above: Order Comment: Speci men Type: BLOOD SPECIMENOrdering Facility: [facility] Address: [address] [place], [place] [address] Performed By: #### 2 4323-8, 36457-9, LIPNF, 2275- ####[facility] LABCLIA [id number] [address] [address] [place] LIPID PANEL, NONFASTINGon Cholesterol [Mass/Vol] 149 mg/dL Normal <200 [facility] Comment on above: Order Comment: Speci men Type: BLOOD SPECIMENOrdering Facility: [facility] Address: [address] [place] [address] Result Comment: <200 mg/dL, Desirable 200-239 mg/dL, Borderline high >239 mg/dL, High Performed By: #### 2 4323-8, 64470-9, LIPNF, 2275-4 ####[facility]CLIA [id number] [address] [address] [place] HDL CHOLESTEROL, NF 41 mg/dL Normal >39 [facility] Comment on above: Order Comment: Speci men Type: BLOOD SPECIMENOrdering Facility: [facility] Address: [address] [place] [address] Result Comment: 40-5 9 mg/dL, Acceptable >59 mg/dL, High: Negative risk factor for coronary heart disease <40 mg/dL, Low: Positive risk factor for coronary heart disease Performed By: #### 2 4323-8, 87667-9, LIPNF, 6-4 ####[facility] LABCLIA [id number] [address] LDL CHOLESTEROL, NF 88 mg/dL Normal <100 [facility] Comment on above: Order Comment: Speci men Type: BLOOD SPECIMENOrdering Facility: [facility] Address: [address] [place] [address] Result Comment: <100 mg/dL, Optimal 100-129 mg/dL, Near optimal/above optimal 130-159 mg/dL, Borderline high 160-189 mg/dL, High >189 mg/dL, Very high Secondary prevention optimal LDL Cholesterol levels are recommended to be < 70 mg/dL Performed By: #### 2 4323-8, 17569-8, LIPNF, 6-4 ####[facility]CLIA [id number] [address] [place] LDL/HDL RATIO, NF 2.15 mg/dL Normal <2.54 [facility] Comment on above: Order Comment: Speci men Type: BLOOD SPECIMENOrdering Facility: [facility] Address: [address] [place] [address] Result Comment: Refe rence: 1. National Cholesterol Education Program ATP III Guideline At-A-Glance Quick Desk Reference: National Heart, Lung, and Blood [place]. National Institutes of Health. 2001: NIH Publication No. 01-3305. 2. An International Atherosclerosis Society position paper: global recommendations for the management of dyslipidemia: executive summary, Atherosclerosis. 2014: 232(2):410-413. Performed By: #### 2 4323-8, 69382-8, LIPNF, 2276-4 ####[facility] LABCLIA [id number] [place] [address] [place] NON HDL CHOL, NF 108 mg/dL Normal <130 [facility] Comment on above: Order Comment: Speci men Type: BLOOD SPECIMENOrdering Facility: [facility] Address: [address] [place] [address] Result Comment: <130 mg/dL, Optimal 130-159 mg/dL, Near optimal/above optimal 160-189 mg/dL, Borderline high 190-219 mg/dL, High >219 mg/dL, Very high Secondary prevention optimal non HDL Cholesterol levels are recommended to be <100 mg/dL Performed By: #### 2 4323-8, 46446-3, LIPNF, 2275-4 ####[facility] LABCLIA [id number] [place] [address] [place] T CHOL/HDL RATIO NF 3.63 mg/dL Normal <5.10 [facility] Comment on above: Order Comment: Speci men Type: BLOOD SPECIMENOrdering Facility: [facility] Address: [address] [place] [address] Performed By: #### 2 4323-8, 02492-8, LIPNF, 2275-4 ####[facility] LABCLIA [id number] [place] [address] [place] TRIGLYCERIDES, NF 99 mg/dL Normal <150 [facility] Comment on above: Order Comment: Speci men Type: BLOOD SPECIMENOrdering Facility: [facility] Address: [address] [place] [address] Result Comment: <150 mg/dL, Normal 150-199 mg/dL, Borderline high 200-499 mg/dL, High >499 mg/dL, Very high Performed By: #### 2 4323-8, 17382-5, LIPNF, 2275-4 ####[facility] LABCLIA [id number] [place] [address] [place] VLDL CHOLESTEROL, NF 20 mg/dL Normal <30 [facility] Comment on above: Order Comment: Speci men Type: BLOOD SPECIMENOrdering Facility: [facility] Address: [address] [place] [address] Performed By: #### 2 4323-8, 20367-8, LIPNF, 2276-4 ####[facility]CLIA [id number] [place] [address] [place] Magnesium SerPl-mCncon 06-22 Magnesium [Mass/Vol] 2.2 mg/dL Normal 1.7-2.3 [facility] Comment on above: Order Comment: Speci men Type: BLOOD SPECIMENOrdering Facility: [facility] Address: [address] [place] [address] Performed By: #### 1 9123-9 ####[facility] LABCLIA [id number] [place] [address] [place] URINALYSIS, REFLEX MICROSCOP ICon 06-22-2024 Bacteria LM.HPF (Urine sed) [#/Area] Negative Negative /HPF [facility] Bilirubin Ql (U) Negative Negative [facility] Clarity (Unsp spec) Clear Clear [facility] Color (U) Yellow Yellow [facility] Epithelial cells LM.HPF (Urine sed) [#/Area] None Seen /HPF [facility] Glucose Test strip (U) [Mass/Vol] Negative Negative [facility] Hemoglobin Ql (U) Negative Negative [facility] Hyaline casts (Urine sed) [#/Area] 4-10 /LPF Abnormal 0 /LPF [facility] Interpretation and review of laboratory results Abnormal [facility] Ketones Ql (U) Negative Negative [facility] Leukocyte esterase Test strip Ql (U) Negative Negative [facility] Nitrite Ql (U) Negative Negative [facility] pH (U) 6.0 [pH] NINF - 8.5 [facility] Protein (U) [Mass/Vol] 2+ Abnormal Negative [facility] RBC LM.HPF (Urine sed) [#/Area] 0-2 /HPF 0-2 /HPF [facility] Specific gravity (U) [Rel density] 1.012 1.005 - 1.030 [facility] Urobilinogen Ql (U) 0.2 EU/dL 0.2-1.0 EU/dL [facility] WBC LM.HPF (Urine sed) [#/Area] 0-5 /HPF 0-5 /HPF [facility] This test was developed and its performance characteristics determined by [facility]'s [facility] Pathology and Laboratory Medicine [place] ([facility]). It has not been cleared or approved by the FDA. [facility] is regulated under CLIA as qualified to perform high-complexity testing. This test is used for clinical purposes. It should not be regarded as investigational or for research. [facility] Bacteria LM.HPF (Urine sed) [#/Area] Negative Normal Negative [facility] Comment on above: Order Comment: Speci men Type: URINE SPECIMENOrdering Facility: [facility] Address: [address] [place] [address] Performed By: #### L [id number] ####[facility] LABIA [id number] [place] [address] [place] Bilirubin Ql (U) Negative Normal Negative [facility] Comment on above: Order Comment: Speci men Type: URINE SPECIMENOrdering Facility: [facility] Address: [address] [place] [address] Performed By: #### L [id number] ####[facility] LABIA [id number] [place] [address] [place] Clarity (Unsp spec) Clear Normal Clear [facility] Comment on above: Order Comment: Speci men Type: URINE SPECIMENOrdering Facility: [facility] Address: [address] [place] [address] Performed By: #### L [id number] ####[facility] LABIA [id number] [place] [address] [place] Color (U) Yellow Normal Yellow [facility] Comment on above: Order Comment: Speci men Type: URINE SPECIMENOrdering Facility: [facility] Address: [address] [place] [address] Performed By: #### L [id number] ####[facility] LABCLIA [id number] [place] [address] [place] Epithelial cells LM.HPF (Urine sed) [#/Area] None Seen Normal [facility] Comment on above: Order Comment: Speci men Type: URINE SPECIMENOrdering Facility: [facility] Address: [address] [place] [address] Performed By: #### L [id number] ####[facility] LABCLIA [id number] [place] [address] [place] Glucose Test strip (U) [Mass/Vol] Negative Normal Negative [facility] Comment on above: Order Comment: Speci men Type: URINE SPECIMENOrdering Facility: [facility] Address: [address] [place] [address] Performed By: #### L [id number] ####[facility]CLIA [id number] [place] [address] [place] Hemoglobin Ql (U) Negative Normal Negative [facility] Comment on above: Order Comment: Speci men Type: URINE SPECIMENOrdering Facility: [facility] Address: [address] [place] [address] Performed By: #### L [id number] ####[facility]CLIA [id number] [place] [address] [place] Hyaline casts (Urine sed) [#/Area] 4-10 /LPF Abnormal 0 /LPF [facility] Comment on above: Order Comment: Speci men Type: URINE SPECIMENOrdering Facility: [facility] Address: [address] [place] [address] Performed By: #### L [id number] ####[facility] LABCLIA [id number] [place] [address] [place] Ketones Ql (U) Negative Normal Negative [facility] Comment on above: Order Comment: Speci men Type: URINE SPECIMENOrdering Facility: [facility] Address: [address] [place] [address] Performed By: #### L [id number] ####[facility]CLIA [id number] [place] [address] [place] Leukocyte esterase Test strip Ql (U) Negative Normal Negative [facility] Comment on above: Order Comment: Speci men Type: URINE SPECIMENOrdering Facility: [facility] Address: [address] [place] [address] Performed By: #### L [id number] ####[facility] LABCLIA [id number] [place] [address] [place] Nitrite Ql (U) Negative Normal Negative [facility] Comment on above: Order Comment: Speci men Type: URINE SPECIMENOrdering Facility: [facility] Address: [address] [place] [address] Performed By: #### L [id number] ####[facility] LABCLIA [id number] [place] [address] [place] pH (U) 6.0 [pH] Normal <8.5 [facility] Comment on above: Order Comment: Speci men Type: URINE SPECIMENOrdering Facility: [facility] Address: [address] [place] [address] Performed By: #### L [id number] ####[facility] LABCLIA [id number] [place] [address] [place] Protein (U) [Mass/Vol] 2+ Abnormal Negative [facility] Comment on above: Order Comment: Speci men Type: URINE SPECIMENOrdering Facility: [facility] Address: [address] [place] [address] Performed By: #### L [id number] ####[facility] LABCLIA [id number] [place] [address] [place] RBC LM.HPF (Urine sed) [#/Area] 0-2 /HPF Normal 0-2 /HPF [facility] Comment on above: Order Comment: Speci men Type: URINE SPECIMENOrdering Facility: [facility] Address: [address] [place] [address] Performed By: #### L [id number] ####[facility] [id number] [place] [address] [place] Specific gravity (U) [Rel density] 1.012 Normal 1.005-1.030 [facility] Comment on above: Order Comment: Speci men Type: URINE SPECIMENOrdering Facility: [facility] Address: [address] [place] [address] Performed By: #### L [id number] ####[facility] [id number] [place] [address] [place] Urobilinogen Ql (U) 0.2 EU/dL Normal 0.2-1.0 EU/dL [facility] Comment on above: Order Comment: Speci men Type: URINE SPECIMENOrdering Facility: [facility] Address: [address] [place] [address] Performed By: #### L [id number] ####[facility] [id number] [place] [address] [place] WBC LM.HPF (Urine sed) [#/Area] 0-5 /HPF Normal 0-5 /HPF [facility] Comment on above: Order Comment: Speci men Type: URINE SPECIMENOrdering Facility: [facility] Address: [address] [place] [address] Performed By: #### L [id number] ####[facility] [id number] [place] [address] [place] XR LUMBAR [...] spine are presented. FINDINGS: There are five grr-phr-heeaxcp lumbar vertebrae. L1 vertebral body compression deformity/age indeterminate fracture is demonstrated, involving the superior endplate.. Questionable L2-3 mild disc space narrowing. There is moderate osteophyte formation, with facet arthrosis in the lower lumbar spine. Kissing spine seen on lateral view. Others: There are vascular calcifications. IMPRESSION L1 vertebral body compression deformity/age indeterminate fracture. Lumbar spine degenerative changes as described above. Manager Of Network: JOSIAH Transcribe Date/Time: Jun 22 2024 2:54P Dictated by : BRIAN WILKINSON MD This examination was interpreted and the report reviewed and electronically signed by: BRIAN WILKINSON MD on Jun 22 2024 2:55PM EST [id number] Normal [facility] XR Lumbar spine 3 Viewson * * [...] spine are presented. FINDINGS: There are five oqc-osc-hetgpcs lumbar vertebrae. L1 vertebral body compression deformity/age indeterminate fracture is demonstrated, involving the superior endplate.. Questionable L2-3 mild disc space narrowing. There is moderate osteophyte formation, with facet arthrosis in the lower lumbar spine. Kissing spine seen on lateral view. Others: There are vascular calcifications. IMPRESSION L1 vertebral body compression deformity/age indeterminate fracture. Lumbar spine degenerative changes as described above. Manager Of Network: PSCTim Transcribe Date/Time: Jun 22 2024 2:54P Dictated by : BRIAN WILKINSON MD This examination was interpreted and the report reviewed and electronically signed by: BRIAN WILKINSON MD on Jun 22 2024 2:55PM [facility] DIVISION OF RADIOLOGY Provider, Chani Seth - 06/22/2024 * * *Final Report* * [...] spine are presented. FINDINGS: There are five bqa-jdr-bsmdlhu lumbar vertebrae. L1 vertebral body compression deformity/age indeterminate fracture is demonstrated, involving the superior endplate.. Questionable L2-3 mild disc space narrowing. There is moderate osteophyte formation, with facet arthrosis in the lower lumbar spine. Kissing spine seen on lateral view. Others: There are vascular calcifications. IMPRESSION L1 vertebral body compression deformity/age indeterminate fracture. Lumbar spine degenerative changes as described above. Manager Of Network: PSCB Transcribe Date/Time: Jun 22 2024 2:54P Dictated by : BRIAN WILKINSON MD This examination was interpreted and the report reviewed and electronically signed by: BRIAN WILKINSON MD on Jun 22 2024 2:55PM EST [facility] Radiology Study observation (narrative) Kaitlin belle [facility] XR Lumbar spine 3 ViewsOrder ed By: Chani Provider on 06-22-2024 [facility] Drew 06-16-2024 KVNGN Telephone (FAMPWS) REINA SULLIVAN ([id number]) 1955 Date Time Provider Department 06/16/24 ARIC ZAPIENWS During your visit today, we recorded the following information about you: Aric Zapien MD 06/16/2024 8:48 AM Signed Schedule to see me at [facility] in person on 06/21/24. Please make sure they are aware appt they scheduled is at that office and not Mel Aric Zapien MD 06/19/2024 10:50 AM Signed Please call before (I suspect was put in wrong place) Felicita Bolden MA 06/19/2024 11:21 AM Signed Please call pt and ask if pt knows he is scheduled at [facility] Florinda Stevenson APRN.STABLE CLEANER 06/22/2024 3:37 PM Signed Please let patient know that he has a lumbar 1 compression fracture of the endplate. I am going to send him to a spine surgeon to review. Please facilitate primaryscheduling Felicita Bolden MA 06/22/2024 4:29 PM Signed Patient notified of results and transferred to senior scheduler Mecca Summers 06/22/2024 4:43 PM Signed [...] to assist with scheduling consultation with orthopaedic resource protection specialist per 06/22/24 telephone encounter. Allergies As of Date: 06/16/2024 Noted Allergy Reaction DYE 03/02/2016 14 - Other: See Comments Comments: used for heart cath Date Reviewed: 11/22/2023 Reviewed by: Florinda Flores LPN - Fully Assessed Reason for Visit: Patient Update [1234] Primary Visit Diagnosis:Compression fracture of L1 vertebra, initial encounter ([facility]) [S32.010A] Order(s):[facility] [[id number]] Order #: [id number]: 1 Prescriptions as of 06/25/2024 - lisinopril [...] unspecified na*09/30/2022 Left atrial enlargement [I51.7] 09/30/2022 residential current use of 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 *09/30/2022 Migraine [...] Encounter Status:Closed by FELICITA BOLDEN on 06/22/24 [facility] ([id number]) 1955 M Date Time Provider Department 03/21/24 LU FISH During your visit today, we recorded the following information about you: Vanna Flores 03/21/2024 3:31 PM Signed Jodie states that their records show patient [...] unspecified na*09/30/2022 Left atrial enlargement [I51.7] 09/30/2022 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 *09/30/2022 Migraine headache [G43.909] 09/30/2022 Need for Streptococcus pneumoniae vaccination [*09/30/2022 Neoplasm of uncertain behavior of skin [D48.5] 09/30/2022 Noncompliance with treatment [Z91.199] 09/30/2022 Other polyp of sinus [J33.8] 09/30/2022 Pulmonary hypertension (HCC) [I27.20] 09/30/2022 Syncope and collapse [R55] 09/30/2022 09/30/2022 Undiagnosed cardiac murmurs [R01.1] 09/30/2022 09/30/2022 History of skull fracture [Z87.81] 09/30/2022 Encounter Status:Closed by AVNNA FLORES on 03/23/24 Normal [facility] CNCOon 11-24-2023 CNCO Letter Text Normal [facility] CNPNon 11-24-2023 CNPN Telephone (BRUCE) REINA SULLIVAN ([id number]) 1955 M Date Time Provider Department 11/24/23 HARVEY HAZEL During your visit today, we recorded the following information about you: Harvey Hazel MSW 11/24/2023 1:04 PM Signed Sw called and spoke with Halima, patient ex in regards to service assistance options in the community. Halima notes that she helps patient to a certain extent. Halima and Nikkie spoke about [facility] Older Adult Resource Directory. Halima asks that Sw mail patient this guide for him to review and see what services are available in the community. Nikkie will also attach [employer] Older Adult support program and [facility] information. 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 James [place]: cardiac cath: no disease 09/08/2015 cardiac catheterization [facility] Dr. James: - primary rhythm atrial fibrillation [...] Lymph 1.00 - 4.00 k/uL 1.57 2.35 [place]% % 9.8 11.3 Abs [place] <0.87 k/uL 0.66 0.98 (H) Eosin% % [...] long-term cur (more content not included)... Normal [facility] Absolute lymphocyte countOrd ered By: Rakel Hodgson on 06-23-2023 Lymphocytes Auto (Unsp spec) [#/Vol] 2.02 10*3/uL 0.83-4.51 [facility] Automated lymphocyte count a s percentage of total leukocytesOrdered By: Rakel Hodgson on 06-23-2023 Lymphocytes/100 WBC Auto (Unsp spec) 28.9 % 19-41 [facility] Basophil percentageOrdered B y: Rakel Hodgson on 06-23-2023 Basophils/100 WBC (Bld) 0.7 % 0-[address] [facility] Chloride [Moles/Vol] 104 mmol/L 98-107 [facility] Eosinophils/100 WBC (Bld) 1.0 % 0-5 [facility] Glucose [Mass/Vol] 99 mg/dL 74-106 [facility] Hemoglobin (Bld) [Mass/Vol] 15.8 g/dL 13.0-16.5 [facility] Monocytes/100 WBC (Bld) 11.7 % 0-10 [facility] Neutrophils (Bld) [#/Vol] 4.0 10*3/uL 2.0-7.7 [facility] Neutrophils/100 WBC (Bld) 57.1 % 47-70 [facility] Potassium [Moles/Vol] 4.2 mmol/L 3.5-5.1 [facility] Sodium [Moles/Vol] 139 mmol/L 136-145 [facility] WBC (Bld) [#/Vol] 7.0 10*3/uL 4.4-11.0 [facility] Determination of erythrocyte mean corpuscular volume (MCV)Ordered By: Rakel Hodgson on 06-23-2023 MCV (RBC) [Entitic vol] 93.6 fL 80-94 [facility] Erythrocyte distribution wid th ratioOrdered By: Rakel Hodgson on 06-23-2023 Erythrocyte distribution width (RBC) [Ratio] 13.0 % 11.6-14.6 [facility] Erythrocyte distribution wid th standard deviationOrdered By: Rakel Hodgson on 06-23-2023 Erythrocyte distribution width (RBC) [Entitic vol] 44.3 fL 35.1-43.9 [facility] Hematocrit Auto (Bld) [Volum e fraction]Ordered By: Rakel Hodgson on 06-23-2023 Hematocrit (Bld) [Volume fraction] 48.6 % 40-54 [facility] Immature granulocytes/100 WB C Auto (Bld)Ordered By: Rakel Hodgson on 06-23-2023 Immature granulocytes/100 WBC (Bld) 0.600 % 0.0-0.9 [facility] Comment on above: IG% - Immature Granu locytes (promyelocytes, myelocytes and metamyelocytes) > 1% indicates that a LEFT SHIFT is Present. Laboratory - Chemistry and C hemistry - challengeOrdered By: Rakel Hodgson on 06-23-2023 CO2 [Moles/Vol] 31.0 mmol/L 21.0-32.0 [facility] Urea nitrogen/Creatinine [Mass ratio] 13.2 mg/mg 10-20 [facility] Laboratory - Hematology and Cell countsOrdered By: Rakel Hodgson on 06-23-2023 MCH (RBC) [Entitic mass] 30.4 pg 27.0-32.0 [facility] MCHC (RBC) [Mass/Vol] 32.5 g/dL 32-36 [facility] Nucleated RBC/100 WBC (Bld) [Ratio] 0 % 0-5 [facility] Platelets (Bld) [#/Vol] 219 10*3/uL 150-450 [facility] No Panel InformationOrdered By: Rakel Hodgson on 06-23-2023 Estimated GFR (MDRD) Amer 56 mL/min >60 [facility] Comment on above: GFR Calc Estimated GFR (MDRD) Non-Af Amer 47 mL/min >60 [facility] Comment on above: Non- GFR Calc Platelet mean volume Hank-Ec ker (Bld) [Entitic vol]Ordered By: Rakel Hodgson on 06-23-2023 Platelet mean volume (Bld) [Entitic vol] 11.4 fL 6.2-12.0 [facility] RBC Auto (Bld) [#/Vol]Ordere d By: Rakel Hodgson on 06-23-2023 RBC (Bld) [#/Vol] 5.19 10*6/uL 4.6-6.2 [facility] Serum or plasma calcium rosalina urement (mass/volume)Ordered By: Rakel Hodgson on 06-23-2023 Calcium [Mass/Vol] 9.1 mg/dL 8.5-10.1 [facility] Serum or plasma creatinine m easurement (mass/volume)Ordered By: Rakel Hodgson on 06-23-2023 Creatinine [Mass/Vol] 1.59 mg/dL 0.70-1.30 [facility] Comment on above: The validity of the calculated GFR & GFRAA in patients over 70 years has not been determined. Clinical correlation is essential. Serum or plasma urea nitroge n measurement (mass/volume)Ordered By: Rakel Hodgson on 01-25-2024 Urea nitrogen [Mass/Vol] 21 mg/dL 7-18 [facility] Thin prep Papanicolaou smear with manual screeningOrdered By: Rakel Hodgson on 06-23-2023 Thin prep Papanicolaou smear with manual screening 4 -15 [facility] STREP A MOLECULAR (POC)on Procedural Control Valid [facility] Strep A (POCT) Negative Negative [facility] CBC W Auto Differential pane l (Bld)on 09-30-2022 Basophils (Bld) [#/Vol] 0.04 10*3/uL <0.11 k/uL [facility] Basophils/100 WBC (Bld) 0.6 % C [facility] Differential cell count method Nom (Bld) Auto [facility] Eosinophils (Bld) [#/Vol] 0.07 10*3/uL <0.46 k/uL [facility] Eosinophils/100 WBC (Bld) 1.0 % [facility] Erythrocyte distribution width (RBC) [Ratio] 13.6 % 11.5 - 15.0 % [facility] Hematocrit (Bld) [Volume fraction] 43.7 % 39.0 - 51.0 % [facility] Hemoglobin (Bld) [Mass/Vol] 14.2 g/dL 13.0 - 17.0 g/dL [facility] Immature granulocytes (Bld) [#/Vol] <0.10 k/uL [facility] Immature granulocytes/100 WBC (Bld) 0.3 % [facility] Lymphocytes (Bld) [#/Vol] 1.57 10*3/uL 1.00 - 4.00 k/uL [facility] Lymphocytes/100 WBC (Bld) 23.3 % [facility] MCH (RBC) [Entitic mass] 31.1 pg 26.0 - 34.0 pg [facility] MCHC (RBC) [Mass/Vol] 32.5 g/dL 30.5 - 36.0 g/dL [facility] MCV (RBC) [Entitic vol] 95.8 fL 80.0 - 100.0 fL [facility] Monocytes (Bld) [#/Vol] 0.66 10*3/uL <0.87 k/uL [facility] Monocytes/100 WBC (Bld) 9.8 % C [facility] Neutrophils (Bld) [#/Vol] 4.37 10*3/uL 1.45 - 7.50 k/uL [facility] Neutrophils/100 WBC (Bld) 65.0 % [facility] Nucleated RBC (Bld) [#/Vol] <0.01 k/uL [facility] Nucleated RBC/100 WBC (Bld) [Ratio] 0.0 /100 WBC [facility] Platelet mean volume (Bld) [Entitic vol] 11.4 fL 9.0 - 12.7 fL [facility] Platelets (Bld) [#/Vol] 246 10*3/uL 150 - 400 k/uL [facility] RBC (Bld) [#/Vol] 4.56 10*6/uL 4.20 - 6.0 0 m/uL [facility] WBC (Bld) [#/Vol] 6.73 10*3/uL 3.70 - 11. 00 k/uL [facility] HbA1c (Bld)on 09-30-2022 Average glucose Estimated from glycated hemoglobin (Bld) [Mass/Vol] 131 mg/dL [facility] HbA1c (Bld) [Mass fraction] 6.2 % High 4.3 - 5.6 % [facility] VALPROIC A/DEPAKENEon 2022 Valproate [Mass/Vol] 70.5 ug/mL 50.0 - 100.0 ug/mL [facility] No Panel Informationon 04-26 [facility] Absolute lymphocyte counton 03-06-2022 Lymphocytes Auto (Unsp spec) [#/Vol] 2.57 10*3/uL 0.83-4.51 [facility] Work Phone: Basophil percentageon 2021 Basophils/100 WBC (Bld) 0.5 % 0-[address] [facility] Work Phone: Chloride [Moles/Vol] 104 mmol/L 98-107 [facility] Work [facility]: Eosinophils/100 WBC (Bld) 1.8 % 0-5 [facility] Work Phone: Glucose [Mass/Vol] 112 mg/dL 74-106 [facility] Work Phone: Comment on above: Fasting Glucose resu lt from 100 to 125 mg/dL suggests IMPAIRED HOMEOSTASIS per A.D.A. criteria. Neutrophils (Bld) [#/Vol] 4.0 10*3/uL 2.0-7.7 [facility] Work Phone: Neutrophils/100 WBC (Bld) 52.2 % 47-70 [facility] Work Phone: [phone] Potassium [Moles/Vol] 3.4 mmol/L 3.5-5.1 [facility] Work Phone: Sodium [Moles/Vol] 142 mmol/L 136-145 [facility] Work Phone: WBC (Bld) [#/Vol] 7.7 10*3/uL 4.4-11.0 [facility] Work Phone: Blood erythrocytes count (nu mber/volume)on 03-06-2022 RBC (Bld) [#/Vol] 4.57 10*6/uL 4.6-6.2 [facility]: Blood hemoglobin measurement (mass/volume)on 03-06-2022 Hemoglobin (Bld) [Mass/Vol] 14.7 g/dL 13.0-16.5 [facility] Work Phone: Blood lymphocytes/100 leukoc yteson 03-06-2022 Lymphocytes/100 WBC (Bld) 33.2 % 19-41 [facility] Work Phone: Blood monocytes/100 leukocyt eson 03-06-2022 Monocytes/100 WBC (Bld) 11.8 % 0-[address] [facility] Work Phone: Blood platelet mean volumeon 03-06-2022 Platelet mean volume (Bld) [Entitic vol] 10.3 fL 6.2-12.0 [facility] Work Phone: Determination of erythrocyte mean corpuscular volume (MCV)on 03-06-2022 MCV (RBC) [Entitic vol] 93.7 fL 80-[address] [facility] Work Phone: Hematocrit Auto (Bld) [Volum e fraction]on 03-06-2022 Hematocrit (Bld) [Volume fraction] 42.8 % 40-54 [facility] Work Phone: Laboratory - Chemistry and C hemistry - challengeon 03-06-2022 CO2 [Moles/Vol] 28.0 mmol/L 21.0-32.0 [facility] Work Phone: Urea nitrogen/Creatinine [Mass ratio] 19.0 mg/mg 10-20 [facility] Work Phone: Laboratory - Hematology and Cell countson 03-06-2022 Erythrocyte distribution width (RBC) [Entitic vol] 43.5 fL 35.1-43.9 [facility] Work Phone: Erythrocyte distribution width (RBC) [Ratio] 12.7 % 11.6-14.6 [facility] Work Phone: Immature granulocytes/100 WBC (Bld) 0.500 % 0.0-0.9 [facility] Work Phone: Comment on above: IG% - Immature Granu locytes (promyelocytes, myelocytes and metamyelocytes) > 1% indicates that a LEFT SHIFT is Present. MCH (RBC) [Entitic mass] 32.2 pg 27.0-32.0 [facility] Work Phone: Nucleated RBC/100 WBC (Bld) [Ratio] 0 % 0-5 [facility] Work Phone: MCHC Auto (RBC) [Mass/Vol]on 03-06-2022 MCHC (RBC) [Mass/Vol] 34.3 g/dL 32-36 [facility] Work Phone: No Panel Informationon 03-06 Estimated Creatinine Clearance Calc 70.76 ml/min [facility] Work Phone: Estimated GFR (MDRD) Amer 77 mL/min >60 [facility] Work Phone: Comment on above: GFR Calc Estimated GFR (MDRD) Non-Af Amer 64 mL/min >60 [facility] Work Phone: Comment on above: Non- GFR Calc Platelets bldon 03-06-2022 Platelets (Bld) [#/Vol] 230 10*3/uL 150-450 [facility] Work Phone: Serum or plasma calcium rosalina urement (mass/volume)on 03-06-2022 Calcium [Mass/Vol] 9.7 mg/dL 8.5-10.1 [facility] Work Phone: Serum or plasma creatinine m easurement (mass/volume)on 03-06-2022 Creatinine [Mass/Vol] 1.21 mg/dL 0.70-1.30 [facility] Work Phone: Comment on above: The validity of the calculated GFR & GFRAA in patients over 70 years has not been determined. Clinical correlation is essential. Serum or plasma urea nitroge n measurement (mass/volume)on 03-06-2022 Urea nitrogen [Mass/Vol] 23 mg/dL 7-18 [facility] Work Phone: Thin prep Papanicolaou smear with manual screeningon 03-06-2022 Thin prep Papanicolaou smear with manual screening 10 5-15 [facility] Work Phone: No Panel InformationOrdered By: Ccf Provider on 03-12-2021 [facility] No Panel Informationon 03-12 Radiology Study observation (narrative) [facility] XR Ankle - right AP and [...] Impression: 1. No acute fracture or dislocation. Manager Of Network: JOSIAH Transcribe Date/Time: Mar 12 2021 3:19P Dictated by : COURTNEY MART MD This examination was interpreted and the report reviewed and electronically signed by: COURTNEY MART MD on Mar 12 2021 3:22PM [facility] DIVISION OF RADIOLOGY Provider, Chani [facility] - 03/12/2021 * * *Final Report* [...] Impression: 1. No acute fracture or dislocation. Manager Of Network: PSYCHIATRIC Transcribe Date/Time: Mar 12 2021 3:19P Dictated by : COURTNEY MART MD This examination was interpreted and the report reviewed and electronically signed by: COURTNEY MART MD on Mar 12 2021 3:22PM [facility] XR Foot - right AP and [...] Impression: 1. No acute fracture or dislocation. Manager Of Network: PSYCHIATRIC Transcribe Date/Time: Mar 12 2021 3:19P Dictated by : COURTNEY MART MD This examination was interpreted and the report reviewed and electronically signed by: COURTNEY MART MD on Mar 12 2021 3:22PM EST DIVISION OF RADIOLOGY Provider, Chani [facility] - 03/12/2021 * * *Final Report* [...] Impression: 1. No acute fracture or dislocation. Manager Of Network: PSCB Transcribe Date/Time: Mar 12 2021 3:19P Dictated by : COURTNEY MART MD This examination was interpreted and the report reviewed and electronically signed by: COURTNEY MART MD on Mar 12 2021 3:22PM EST [facility] VISUAL FIELD 30-2 OU (BOTH E YES) [facility] Vital Signs Date Time Vital Sign Value Performing Clinician Facility 07-11-2024 17:10-0500 Body temperature 97.7 [degF] Dr. Aric Zapien MD Work Phone: [facility] 07-11-2024 17:10-0500 Diastolic blood pressure 88 mm[Hg] Dr. Aric Zapien MD Work Phone: [facility] 07-11-2024 17:10-0500 Heart rate 100 /min Dr. Aric Zapien MD Work Phone: [facility] 07-11-2024 17:10-0500 Respiratory rate 16 /min Dr. Aric Zapien MD Work Phone: [facility] 07-11-2024 17:10-0500 SaO2% (BldA) [Mass fraction] 97 % Dr. Aric Zapien MD Work Phone: [facility] 07-11-2024 17:10-0500 Systolic blood pressure 127 mm[Hg] Dr. Aric Zapien MD Work Phone: [facility] 07-10-2024 10:00-0500 Inhaled oxygen flow rate 2 L/min Dr. Aric Zapien MD Work Phone: [facility] 07-09-2024 15:34-0500 Body height 182.[address] Aric Zapien MD Work Phone: [facility] 07-09-2024 15:34-0500 Body weight 97.[address] Aric Zapien MD Work Phone: [phone] [place] [address] 07-09-2024 11:44-0500 Body mass index (BMI) [Ratio] 29.2 kg/m2 Dr. Aric Zapien MD Work Phone: [facility] 06-22-2024 13:29-0500 Body temperature 97.81 [degF] Florinda Suppprimitivo LOGGING SPECIALIST.STABLE CLEANER Work Phone: [facility] 06-22-2024 13:29-0500 Diastolic blood pressure 76 mm[Hg] Florinda Suppan LOGGING SPECIALIST.STABLE CLEANER Work Phone: [facility] 06-22-2024 13:29-0500 Heart rate 88 /min Florinda Suppan LOGGING SPECIALIST.STABLE CLEANER Work Phone: [facility] 06-22-2024 13:29-0500 SaO2% (BldA) [Mass fraction] 99 % Florinda Suppan LOGGING SPECIALIST.STABLE CLEANER Work Phone: [facility] 06-22-2024 13:29-0500 Systolic blood pressure 118 mm[Hg] Florinda Suppan LOGGING SPECIALIST.STABLE CLEANER Work Phone: [facility] 11-22-2023 15:27-0400 Body mass index (BMI) [Ratio] 30.65 kg/m2 NA Max PA-C Work Phone: [facility] 11-22-2023 15:27-0400 Body weight 102.51 kg NA Max PA-C Work Phone: [facility] 11-22-2023 15:27-0400 Diastolic blood pressure 80 mm[Hg] NA Max PA-C Work Phone: [facility] 11-22-2023 15:27-0400 Heart rate 85 /min NA Max PA-C Work Phone: [facility] 11-22-2023 15:27-0400 Respiratory rate 15 /min NA Max PA-C Work Phone: [facility] 11-22-2023 15:27-0400 SaO2% (BldA) [Mass fraction] 96 % NA Max PA-C Work Phone: [facility] 11-22-2023 15:27-0400 Systolic blood pressure 128 mm[Hg] NA Max PA-C Work Phone: [facility] 06-23-2023 15:04-0500 Body height 187.[address] Aric Zapien Work Phone: [facility] 06-23-2023 15:04-0500 Body mass index (BMI) [Ratio] 28.5 kg/m2 Dr. rAic Zapien Work Phone: [facility] 06-23-2023 15:04-0500 Body weight 100.[address] Aric Zapien Work Phone: [facility] 06-23-2023 15:04-0500 Diastolic blood pressure 60 mm[Hg] Dr. Aric Zapien Work Phone: [facility] 06-23-2023 15:04-0500 Heart rate 67 /min Dr. Aric Zapien Work Phone: [facility] 06-23-2023 15:04-0500 Respiratory rate 18 /min Dr. Aric Zapien Work Phone: [facility] [facility] 06-23-2023 15:04-0500 SaO2% (BldA) [Mass fraction] 97 % Dr. Aric Zapien Work Phone: [facility] 01-25-2024 15:04-0500 Systolic blood pressure 80 mm[Hg] Dr. Aric Zapien Work Phone: [facility] 12-07-2022 13:46-0400 Body temperature 98.4 [degF] Krislyn Aberegg PA Work Phone: [facility] 12-07-2022 13:46-0400 Body weight 101.7 kg Krislyn Aberegg PA Work Phone: [facility] 12-07-2022 13:46-0400 Diastolic blood pressure 76 mm[Hg] Krislyn Aberegg PA Work Phone: [facility] 12-07-2022 13:46-0400 Heart rate 60 /min Krislyn Aberegg PA Work Phone: [facility] 12-07-2022 13:46-0400 Respiratory rate 18 /min Krislyn Aberegg PA Work Phone: [facility] 12-07-2022 13:46-0400 SaO2% (BldA) [Mass fraction] 96 % Krislyn Aberegg PA Work Phone: [facility] 12-07-2022 13:46-0400 Systolic blood pressure 112 mm[Hg] Krislyn Aberegg PA Work Phone: [facility] 09-30-2022 13:13-0400 Body height 182.9 cm Aric Zapien MD Work Phone: [facility] 09-30-2022 13:13-0400 Body weight 103.87 kg Aric Zapien MD Work Phone: [facility] 09-30-2022 13:13-0400 Diastolic blood pressure 100 mm[Hg] Aric Zapien MD Work Phone: [facility] 09-30-2022 13:13-0400 Heart rate 88 /min Aric Zapien MD Work Phone: [facility] 09-30-2022 13:13-0400 SaO2% (BldA) [Mass fraction] 97 % Aric Zapien MD Work Phone: [facility] 09-30-2022 13:13-0400 Systolic blood pressure 152 mm[Hg] Aric Zapien MD Work Phone: [facility] 04-01-2022 10:36-0400 Body weight 99.79 kg Aric Zapien MD Work Phone: [facility] 04-01-2022 10:36-0400 Diastolic blood pressure 62 mm[Hg] Aric Zapien MD Work Phone: [facility] 04-01-2022 10:36-0400 Heart rate 97 /min Aric Zapien MD Work Phone: [facility] 04-01-2022 10:36-0400 SaO2% (BldA) [Mass fraction] 100 % Aric Zapien MD Work Phone: [facility] 04-01-2022 10:36-0400 Systolic blood pressure 102 mm[Hg] Aric Zapien MD Work Phone: [facility] 03-09-2022 15:09-0400 Body height 184 cm NA Max PA-C Work Phone: [facility] 03-09-2022 15:09-0400 Body weight 101.15 kg NA Max PA-C Work Phone: [facility] 03-09-2022 15:09-0400 Diastolic blood pressure 74 mm[Hg] NA Max PA-C Work Phone: [facility] 03-09-2022 15:09-0400 Heart rate 82 /min NA Max PA-C Work Phone: [facility] 03-09-2022 15:09-0400 Respiratory rate 12 /min NA Max PA-C Work Phone: [facility] 03-09-2022 15:09-0400 SaO2% (BldA) [Mass fraction] 98 % NA Max PA-C Work Phone: [facility] 03-09-2022 15:09-0400 Systolic blood pressure 104 mm[Hg] NA Max PA-C Work Phone: [facility] 03-08-2022 15:33-0400 Body weight 99.79 kg Aric Huston Jr., MD Work Phone: [facility] 03-08-2022 15:33-0400 Diastolic blood pressure 72 mm[Hg] Aric Huston Jr., MD Work Phone: [facility] 03-08-2022 15:33-0400 Heart rate 93 /min Aric Huston Jr., MD Work Phone: [facility] 03-08-2022 15:33-0400 Respiratory rate 12 /min Aric Huston Jr., MD Work Phone: [facility] 03-08-2022 15:33-0400 SaO2% (BldA) [Mass fraction] 98 % Aric Huston Jr., MD Work Phone: [facility] 03-08-2022 15:33-0400 Systolic blood pressure 100 mm[Hg] Aric Huston Jr., MD Work Phone: [facility] 03-06-2022 12:58-0400 Diastolic blood pressure 90 mm[Hg] [facility] Work Phone: 03-06-2022 12:58-0400 Heart rate 80 /min [facility] Work Phone: 03-06-2022 12:58-0400 Respiratory rate 16 /min [facility] Work Phone: 03-06-2022 12:58-0400 SaO2% (BldA) [Mass fraction] 98 % [facility] Work Phone: 03-06-2022 12:58-0400 Systolic blood pressure 116 mm[Hg] [facility] Work Phone: 03-06-2022 10:03-0400 Body height 187.96 cm [facility] Work Phone: 03-06-2022 10:03-0400 Body mass index (BMI) [Ratio] 28.9 kg/m2 [facility] Work Phone: 03-06-2022 10:03-0400 Body temperature 97.1 [degF] [facility] Work Phone: 03-06-2022 10:03-0400 Body weight 102.1 kg [facility] Work Phone: 09-24-2021 15:24-0400 Body weight 102.51 kg Aric Zapien MD Work Phone: [facility] 09-24-2021 15:24-0400 Diastolic blood pressure 82 mm[Hg] Aric Zapien MD Work Phone: [facility] 09-24-2021 15:24-0400 Heart rate 88 /min Aric Zapien MD Work Phone: [facility] 09-24-2021 15:24-0400 Systolic blood pressure 122 mm[Hg] Aric Zapien MD Work Phone: [facility] Encounters Encounter Date Encounter Type Care Provider Facility Start: 01-10-2025 ambulatory Jigna Gudla OLS Facili ty:[facility] Start: 01-02-2025 ambulatory Jigna Gudla OLS Facili ty:[facility] Start: 11-27-2024 ambulatory Jigna Gudla OLS Facili ty:[facility] Start: 10-31-2024 ambulatory Jigna Gudla OLS Facili ty:[facility] Start: 10-25-2024 End: 10-25-2024 Telephone encounter Aric Zapien MD Work Phone: [facility] [place] Comment on above: Letter (No show #2) Start: 10-23-2024 ambulatory Jigna Gudla OLS Facili ty:[facility] Start: 09-26-2024 End: 09-26-[address] Aric Zapien MD Work Phone: [facility] Work Phone: Start: 09-26-2024 End: 09-26-[address] Jigna Brantley MD -[facility] Start: 09-26-2024 End: 09-26-2024 ambulatory Jigna Magedkaryna OLS Facility:[facility] Start: 08-27-2024 End: 08-27-[address] Aric Zapien MD Work Phone: [facility] Work Phone: Start: 08-27-2024 End: 08-27-[address] Jigna Brantley MD -[facility] Start: 08-27-2024 End: 08-27-2024 ambulatory Jigna Tovaa OLS Facility:[facility] Start: 07-23-2024 ambulatory Jigna Tovaa OLS Facili ty:[facility] Start: 07-23-[address] Jigna Brantley MD -[facility] Start: 07-16-2024 End: 08-07-2024 Telephone encounter Aric Zapien MD Work Phone: [facility] Comment on above: Patient Update Start: 07-16-2024 ambulatory Jigna Bernardoa OLS Facili ty:[facility] Start: 07-16-[address] Jigna Brantley MD -[facility] Start: 07-12-2024 ambulatory Jigna Tovaa OLS Facili ty:[facility] Start: 07-12-[address] Jigna Brantley MD -[facility] Start: 07-11-2024 Non-patient / Non-visit Dr. Yann stevens [facility] Work Phone: Start: 07-10-2024 Non-patient / Non-visit Dr. Yann stevens [facility] Work Phone: Start: 07-10-2024 ambulatory Estuardo Irby Facility:[facility] Start: 07-10-2024 Non-patient / Non-visit Dr. Cynthia Irby MD -[facility] Start: 07-09-2024 End: 07-11-2024 Evaluation and management of inpatient Dr. Yann Ascencio DO -[facility] Work Phone: Start: 07-09-2024 ambulatory Yann Ascencio Facility:[facility] Start: 07-09-2024 Non-patient / Non-visit Dr. Yann stevens [facility] Work Phone: Start: 06-26-2024 End: 06-26-2024 Telephone encounter Damaris Sotelo MD Work Phone: [facility] Start: 06-25-2024 End: 06-25-2024 Telephone encounter Florinda Stevenson LOGGING SPECIALIST.STABLE CLEANER Work Phone: [facility] Comment on above: Results Start: 06-22-2024 End: 06-22-2024 Telephone encounter Aric Zapien MD Work Phone: [facility] Comment on above: Patient Question Start: 06-22-2024 End: 06-22-2024 Office outpatient visit 15 minutes Florinda Stevenson LOGGING SPECIALIST.STABLE CLEANER Work Phone: [facility] Comment on above: Type 2 diabetes jorge itus without complication, without long- term current use of insulin (HCC) (Primary Dx); Fall, initial encounter; Screening for lipid disorders; Acute low back pain without sciatica, unspecified back pain laterality Start: 06-22-2024 End: 06-22-2024 ambulatory ARIC ZAPIEN Facility:[facility] Start: 06-16-2024 End: 06-22-2024 Telephone encounter Aric Zapien MD Work Phone: [facility] Comment on above: Patient Update Start: 06-13-2024 End: 06-14-2024 Refill Aric Zapien MD Work Phone: [address] [place] [address] Comment on above: Refill Request Start: 05-28-2024 End: 05-28-2024 ambulatory Mayuri Perez MA [facility] Start: 05-28-2024 End: 05-28-2024 Patient encounter procedure Mayuri Perez MA [facility] Comment on above: Population Health Na vigation Outreach ([facility] OUTREACH ) Start: 04-18-2024 End: 04-18-2024 ambulatory Edward Pleitez [facility] Work Phone: [facility] Start: 04-18-2024 End: 04-18-2024 Patient encounter procedure Edward Pleitez [facility] Work Phone: [facility] Start: 03-21-2024 End: 03-23-2024 Telephone encounter Lu Fish APRN.STABLE CLEANER Work Phone: Endocrinology Start: 03-07-2024 End: 03-07-2024 ambulatory Jordy Hernandez MA [facility] Start: 03-07-2024 End: 03-07-2024 Patient encounter procedure Jordy Hernandez MA [facility] Comment on above: Population Health Na vigation Outreach [facility] Start: 12-15-2023 ambulatory Moshe Friedman [facility] Start: 12-15-2023 Patient encounter procedure Moshe Friedman MA [facility] Comment on above: Population Health Na vigation Outreach (JODIE-AWV) Start: 11-24-2023 Telephone encounter Harvey HASSAN [facility] Start: 11-22-2023 End: 11-22-2023 ambulatory RENUKA MAX Facility:[facility] Start: 11-22-2023 End: 11-22-2023 Patient encounter procedure Jaison Max PA-C Work Phone: [facility] Comment on above: 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 Aric Zapien Work Phone: [facility] Work Phone: Start: 06-23-2023 End: 06-23-[address] Aric Zapien Work Phone: [facility] Work Phone: Start: 12-07-2022 End: 12-07-2022 Patient encounter procedure Sarah MARIE Work Phone: [facility] Comment on above: Sore throat (Primary Dx); URI, acute Start: 09-30-2022 End: 09-30-2022 Patient encounter procedure Aric Zapien MD Work Phone: [facility] Comment on above: Seizures (HCC) (Prim michelle [...] 06-18-2022 Refill Aric Zapien MD Work Phone: [facility] Comment on above: Refill Request Start: 06-11-2022 ambulatory Leanna Benavidez RN [facility] Comment on above: DESI CEE RN ( Medication Adherence review per request of payer) Start: 04-27-2022 Telephone encounter Aric Huston MD Work Phone: Neurology Comment on above: Results Start: 04-26-2022 End: 04-26-2022 Subsequent hospital visit by physician Mri Radio [facility] (I-Stat/1.5t) Work Phone: Radiology Comment on above: 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 status epilepticus, unspecified epilepsy type (HCC) [G40.919] Start: 04-12-2022 Telephone encounter Aric Huston MD Work Phone: Neurology Comment on above: Orders Start: 04-12-2022 End: 04-12-2022 Patient encounter procedure Marnidarwin Hare OD Work Phone: Ophthalmology Comment on above: Left homonymous infe rior quadrantanopia (Primary Dx); Myopia, bilateral; Presbyopia; Regular astigmatism of left eye; Combined forms of age-related cataract of both eyes; Punctate keratitis, bilateral Start: 04-03-2022 Telephone encounter Jaison Max PA-C Work Phone: [facility] Comment on above: Results Start: 04-02-2022 Telephone encounter Aric Huston MD Work Phone: Neurology Comment on above: Orders Start: 04-01-2022 End: 04-01-2022 Patient encounter procedure Aric Zapien MD Work Phone: [facility] Comment on above: Permanent atrial fib rillation (HCC) (Primary Dx); Seizures (HCC); Primary pulmonary HTN (HCC); Primary hypertension; Mixed hyperlipidemia; Type 2 diabetes mellitus without complication, without long-term current use of insulin (HCC); History of thyroiditis; Enlarged thoracic aorta (HCC); Screening for AAA (abdominal aortic aneurysm) Start: 03-15-2022 Telephone encounter Jaison Max PA-C Work Phone: [facility] Comment on above: Orders Start: 03-09-2022 End: 03-09-2022 Patient encounter procedure Jaison Max PA-C Work Phone: [facility] [place] Comment on above: Medicare annual well [...] 03-06-2022 End: 03-06-2022 [facility] Start: 03-04-2022 Refill Aric Zapien MD Work Phone: [facility] Comment on above: Refill Request Start: 02-23-2022 ambulatory [facility] Comment on above: ACJaison CEE RN ( SPC/SUPD rev. per request [facility]) Start: 09-24-2021 End: 09-24-2021 Patient encounter procedure Aric Zapien MD Work Phone: [facility] Comment on above: Permanent atrial fib rillation [...] Aric Zapien MD Work Phone: Internal Medicine [facility] Start: 03-12-2021 End: 03-12-2021 Subsequent hospital visit by physician Jose A [facility] Work Phone: Radiology Comment on above: Acute right ankle pa in [M25.571] Procedures Date Procedure Procedure Detail Performing Clinician Start: 07-23-2024 Measurement of renal function Dr. Aric Zapien MD Work Phone: Comment on above: GFR Calc Start: 07-16-2024 Measurement of renal function Dr. Aric Zapein MD Work Phone: Comment on above: GFR [...] Gutierrez.RESULTS READ BACK BY . Start: 11-22-2023 [employer] COVI D-19 VACCINE ( SEASON) AGE 12+ YR M Leonidas Max PA-C Work Phone: Start: 11-22-2023 Adult depression scr eening assessment Xr [place] Work Phone: Start: 12-07-2022 STREP A MOLECULAR (POC) Mikki Rodriguez APRN.STABLE CLEANER Work Phone: Start: 04-26-2022 Mra head w/o contrst material Aric Huston MD Work Phone: Start: 04-12-2022 Visual field xm uni/ bi w/interp extended exam Marni aHre OD Work Phone: Start: 03-06-2022 CT of head without contrast Start: 03-12-2021 Radex ankle complete minimum 3 views Quang Bowman MD Work Phone: Start: 03-02-2016 Adult depression scr eening assessment Aric Zapien MD Work Phone: Plan of Treatment Date Care Activity Detail Author Start: 01-04-2032 RSV Vaccine (1 - 1-dose 75+ series) RSV Vaccine (1 - 1-dose 75+ series) [facility] Start: 09-24-2026 PROSTATE CANCER SCREENING DISCUSSION PROSTATE CANCER SCREENING DISCUSSION [facility] Start: 09-24-2026 Prostate specific antigen measurement Prostate Cancer Screening Discussion [facility] Start: 06-22-2025 Annual PCP Team Chronic Disease Visit Annual PCP Team Chronic Disease Visit [facility] Start: 06-22-2025 BP Controlled (<130/80) BP Controlled (<130/80) [facility] Start: 06-22-2025 Complete blood count Hemoglobin/Hematocrit [facility] Start: 06-22-2025 Creatinine measurement Serum Creatinine [facility] Start: 06-22-2025 Hepatitis B screening Urine Albumin:Creatinine Ratio [facility] Start: 06-22-2025 Hepatitis B surface antibody level LDL Cholesterol [facility] Start: 01-28-2025 Influenza vaccination Influenza Vaccine (Season Ended) [facility] Start: 12-20-2024 Hemoglobin A1c measurement HbA1C [facility] Start: 11-21-2024 Annual PCP Team Chronic Disease Visit Annual PCP Team Chronic Disease Visit [facility] Start: 11-21-2024 Depression Screening Depression Screening [facility] Start: 11-21-2024 Diabetic foot examination Diabetic Foot Exam [facility] Start: 07-12-2024 End: 07-12-2024 Patient encounter procedure 07/12/2024 1:20 PM EST Office Visit [facility] [address] [place] [address] Florinda Stevenson APRN.STABLE CLEANER [address] [place] [address] 2 week follow up [facility] [place] Comment on above: 2 week follow up Start: 07-11-2024 Patient discharge [facility] Start: 07-10-2024 Care planning and problem solving actions [facility] Start: 07-10-2024 [facility] Start: 07-10-2024 End: 07-10-2024 Patient encounter procedure [facility]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 Comment on above: Lumbar x-ray needs order L1 Fx Start: 07-10-2024 Oxygen therapy [facility] Start: 07-09-2024 Care planning and problem solving actions [facility] Start: 07-09-2024 End: 07-09-2024 Following clinical pathway protocol [facility] Start: 07-09-2024 Assessment of risk of venous thromboembolism [facility] Start: 07-09-2024 Care regimes management [facility] Start: 07-09-2024 Insertion of catheter into peripheral vein [facility] Start: 07-09-2024 Measuring intake and output [facility] Start: 07-09-2024 Notification of physician [facility] Start: 07-09-2024 Providing care according to standard [facility] Start: 07-09-2024 Provision of activity privileges [facility] Start: 07-09-2024 Referral to occupational therapist [facility] Start: 07-09-2024 Referral to service [facility] Start: 07-09-2024 End: 07-09-2024 [facility] Start: 07-09-2024 Admission procedure [facility] Start: 07-09-2024 Patient referral to dietitian [facility] Start: 06-22-2024 End: 09-21-2024 CBC W Auto Differential panel - Blood [facility] Comment on above: Expected: 06/22/2024, Expires: Start: 06-22-2024 End: 09-21-2024 Comprehensive metabolic 2000 panel - Serum or Plasma [facility] Comment on above: Expected: 06/22/2024, Expires: Start: 06-22-2024 End: 09-21-2024 Ferritin [Mass/volume] in Serum or Plasma [facility] Comment on above: Expected: 06/22/2024, Expires: Start: 06-22-2024 End: 09-21-2024 Hemoglobin A1c in Blood [facility] Work Phone: Comment on above: Expected: 06/22/2024, Expires: Start: 06-22-2024 End: 09-21-2024 Iron and Iron binding capacity panel - Serum or Plasma [facility] Comment on above: Expected: 06/22/2024, Expires: Start: 06-22-2024 End: 09-21-2024 LIPID PANEL, NONFASTING [facility] Comment on above: Expected: 06/22/2024, Expires: Start: 06-22-2024 End: 09-21-2024 Magnesium [Mass/volume] in Serum or Plasma [facility] Comment on above: Expected: 06/22/2024, Expires: Start: 06-22-2024 End: 09-21-2024 Microalbumin/Creatinine [Mass Ratio] in Urine [facility] Comment on above: Expected: 06/22/2024, Expires: Start: 06-21-2024 End: 06-21-2024 Patient encounter procedure 06/21/2024 11:00 AM EST Office Visit [facility] [id number] [place], [place] [id number] Aric Zapien MD [address] [place] [address] FALL ON [facility] Comment on above: FALL ON ICE Start: 05-30-2024 Advance Directive Discussion Advance Directive Discussion [facility] Start: 05-25-2024 End: 05-25-2024 Patient encounter procedure [facility] Comment on above: 6 month follow up 6 month follow up - HTN focus [place] Start: 05-24-2024 Annual PCP Team Chronic Disease Visit Annual PCP Team Chronic Disease Visit [facility] Start: 05-24-2024 BP Controlled (<130/80) BP Controlled (<130/80) [facility] Start: 05-24-2024 Complete blood count Hemoglobin/Hematocrit [facility] Start: 05-24-2024 Creatinine measurement Serum Creatinine [facility] Start: 05-24-2024 Hepatitis B screening Urine Albumin:Creatinine Ratio [facility] Start: 05-24-2024 Hepatitis B surface antibody level LDL Cholesterol [facility] Start: 02-22-2024 End: 05-23-2024 Hemoglobin A1c in Blood HEMOGLOBIN A1C Lab Routine Type 2 diabetes mellitus without complication, without long-term current use of insulin (HCC) Expected: 02/22/2024, Expires: 05/23/2024 [facility] Comment on above: Expected: 02/22/2024, Expires: Start: 01-29-2024 Covid-19 Vaccine ( season) Covid-19 Vaccine () [facility] Start: 01-29-2024 [facility] Start: 12-08-2023 BP CONTROLLED (<130/80) BP CONTROLLED (<130/80) [facility] Start: 11-23-2023 Hemoglobin A1c measurement HbA1C [facility] Start: 11-22-2023 End: 11-22-2023 Patient encounter procedure 11/22/2023 3:40 PM EDT Office Visit [facility] [address] [place] [address] Jaison Max PA-C [address] [place] [address] 6 mth f/u [facility] Comment on above: 6 mth f/u Start: 11-22-2023 End: 02-21-2024 CBC W Auto Differential panel - Blood COMPLETE BLOOD COUNT AND DIFFERENTIAL Lab Routine Seizures (HCC) Mitral valve insufficiency, unspecified etiology Non-rheumatic tricuspid valve insufficiency Left atrial enlargement 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 (HCC) residential current use of 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 Pulmonary hypertension (HCC) Enlarged thoracic aorta (HCC) Primary hypertension Chronic renal failure (CRF), stage 3a (HCC) Type 2 diabetes mellitus without complication, without long-term current use of insulin (HCC) Adjustment disorder with mixed emotional features Anxiety state Expected: 11/22/2023, Expires: 02/21/2024 [facility] Work Phone: Comment on above: Expected: 11/22/2023, Expires: Start: 11-22-2023 End: 02-21-2024 Comprehensive metabolic 2000 panel - Serum or Plasma COMPREHENSIVE METABOLIC PANEL Lab Routine Seizures (HCC) Mitral valve insufficiency, unspecified etiology Non-rheumatic tricuspid valve insufficiency Left atrial enlargement 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 (HCC) 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 Pulmonary hypertension (HCC) Enlarged thoracic aorta (HCC) Primary hypertension Mixed hyperlipidemia Chronic renal failure (CRF), stage 3a (HCC) Type 2 diabetes mellitus without complication, without long-term current use of insulin (HCC) Adjustment disorder with mixed emotional features Anxiety state Expected: 11/22/2023, Expires: 02/21/2024 [facility] Comment on above: Expected: 11/22/2023, Expires: Start: 11-22-2023 End: 02-21-2024 Lipid 1996 panel - Serum or Plasma LIPID PANEL BASIC Lab Routine Mitral valve insufficiency, unspecified etiology Non-rheumatic tricuspid valve insufficiency Left atrial enlargement 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 (HCC) 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 Pulmonary hypertension (HCC) Enlarged thoracic aorta (HCC) Primary hypertension Mixed hyperlipidemia Type 2 diabetes mellitus without complication, without long-term current use of insulin (HCC) Expected: 11/22/2023, Expires: 02/21/2024 [facility] Comment on above: Expected: 11/22/2023, Expires: Start: 10-15-2023 ANNUAL PCP TEAM CHRONIC DISEASE VISIT ANNUAL PCP TEAM CHRONIC DISEASE VISIT [facility] Start: 10-01-2023 3 comp foot exam completed DIABETIC FOOT EXAM [facility] Start: 10-01-2023 ANNUAL PCP TEAM CHRONIC DISEASE VISIT ANNUAL PCP TEAM CHRONIC DISEASE VISIT [facility] Start: 10-01-2023 Diabetic foot examination Diabetic Foot Exam [facility] Start: 10-01-2023 Urine microalbumin profile [facility] Comment on above: Postponed from 01/04/1976 (Declined at t his time) Start: 09-23-2023 Covid-19 Vaccine ( season) Covid-19 Vaccine () [facility] Start: 05-30-2023 Advance Directive Discussion Advance Directive Discussion [facility] Start: 05-30-2023 Behavioral Health Screening Behavioral Health Screening [facility] Start: 04-12-2023 Glaucoma screening Dilated Retinal Exam [facility] Start: 04-12-2023 Hepatitis C antibody, confirmatory test DILATED RETINAL EXAM [facility] Start: 04-02-2023 Hemoglobin A1c/Hemoglobin.total in Blood HBA1C [facility] Start: 04-01-2023 ANNUAL PCP TEAM CHRONIC DISEASE VISIT ANNUAL PCP TEAM CHRONIC DISEASE VISIT [facility] Start: 04-01-2023 BP CONTROLLED (<130/80) BP CONTROLLED (<130/80) [facility] Start: 04-01-2023 Hepatitis B screening URINE ALBUMIN:CREATININE RATIO [facility] Start: 04-01-2023 Hepatitis B surface antibody level LDL CHOLESTEROL [facility] Start: 03-09-2023 ANNUAL PCP TEAM CHRONIC DISEASE VISIT ANNUAL PCP TEAM CHRONIC DISEASE VISIT [facility] Start: 03-09-2023 BP CONTROLLED (<130/80) BP CONTROLLED (<130/80) [facility] Start: 03-08-2023 BP CONTROLLED (<130/80) BP CONTROLLED (<130/80) [facility] Start: 01-28-2023 Covid-19 Vaccine ( season) Covid-19 Vaccine () [facility] Start: 01-28-2023 Influenza vaccination [facility] Start: 12-07-2022 End: 12-21-2022 Influenza virus A and B RNA and SARS-CoV-2 (COVID-19) N gene panel - Respiratory specimen by CRYSTAL with probe detection [facility] Work Phone: Comment on above: Expected: 12/07/2022, Expires: Start: 09-30-2022 End: 11-30-2022 Comprehensive metabolic 2000 panel - Serum or Plasma [facility] Work Phone: Comment on above: Expected: 09/30/2022, Expires: 3 Start: 09-30-2022 End: 11-30-2022 T4/FTI/T4U [facility] Work Phone: Comment on above: Expected: 09/30/2022, Expires: 3 Start: 09-30-2022 End: 11-30-2022 Thyrotropin [Units/volume] in Serum or Plasma [facility] Work Phone: Comment on above: Expected: 09/30/2022, Expires: Start: 09-30-2022 End: 11-30-2022 Triiodothyronine (T3) [Mass/volume] in Serum or Plasma [facility] Work Phone: Comment on above: Expected: 09/30/2022, Expires: 3 Start: 09-29-2022 Hemoglobin A1c/Hemoglobin.total in Blood HBA1C [facility] Start: 09-24-2022 ANNUAL PCP TEAM CHRONIC DISEASE VISIT ANNUAL PCP TEAM CHRONIC DISEASE VISIT [facility] Start: 06-09-2022 End: 08-09-2022 Hemoglobin A1c in Blood HGB A1C Lab Routine Hyperglycemia Expected: 06/09/2022, Expires: 08/09/2022 [facility] Work Phone: Comment on above: Expected: 06/09/2022, Expires: 3 Start: 05-30-2022 ADVANCE DIRECTIVE DISCUSSION ADVANCE DIRECTIVE DISCUSSION [facility] Start: 05-30-2022 DEPRESSION ASSESSMENT DEPRESSION ASSESSMENT [facility] Start: 04-14-2022 3 comp foot exam completed DIABETIC FOOT EXAM [facility] Start: 04-09-2022 End: 06-09-2022 Valproate [Mass/volume] in Serum or Plasma VALPROIC A/DEPAKENE Lab Routine Nonintractable epilepsy without status epilepticus, unspecified epilepsy type (HCC) Expected: 04/09/2022, Expires: 06/09/2022 [facility] Work Phone: Comment on above: Expected: 04/09/2022, Expires: 3 Start: 04-03-2022 End: 06-03-2022 Basic metabolic 2000 panel - Serum or Plasma BASIC METABOLIC PNL Lab Routine Elevated serum creatinine Expected: 04/03/2022, Expires: 06/03/2022 [facility] Work Phone: Comment on above: Expected: 04/03/2022, Expires: 3 Start: 04-01-2022 End: 06-01-2022 LIPID PANEL, NONFASTING [facility] Work Phone: Comment on above: Expected: 04/01/2022, Expires: 3 Start: 04-01-2022 End: 06-01-2022 Thyrotropin [Units/volume] in Serum or Plasma [facility] Work Phone: Comment on above: Expected: 04/01/2022, Expires: 3 Start: 03-25-2022 ANNUAL PCP TEAM CHRONIC DISEASE VISIT ANNUAL PCP TEAM CHRONIC DISEASE VISIT [facility] Start: 03-25-2022 BP CONTROLLED (<130/80) BP CONTROLLED (<130/80) [facility] Start: 03-25-2022 Hepatitis B surface antibody level LDL CHOLESTEROL [facility] Start: 03-09-2022 End: 05-09-2022 ALBUMIN/CREAT RATIO RND UR ALBUMIN/CREAT RATIO RND UR Lab Routine Hyperglycemia Expected: 03/09/2022, Expires: 05/09/2022 [facility] Work Phone: Comment on above: Expected: 03/09/2022, Expires: 2 Start: 03-09-2022 End: 05-09-2022 Hepatitis C virus Ab [Presence] in Serum HEP C AB IA W/CONF SCRN Lab Routine Encounter for hepatitis C screening test for low risk patient Expected: 03/09/2022, Expires: 05/09/2022 [facility] Work Phone: Comment on above: Expected: 03/09/2022, Expires: 2 Start: 03-08-2022 End: 05-08-2022 CBC W Auto Differential panel - Blood CBC + DIFF Lab Routine 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 status epilepticus, unspecified epilepsy type (HCC) Expected: 03/08/2022, Expires: 05/08/2022 [facility] Work Phone: Comment on above: Expected: 03/08/2022, Expires: 2 Start: 03-08-2022 End: 05-08-2022 Comprehensive metabolic 2000 panel - Serum or Plasma COMP METABOLIC PANEL Lab Routine 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 status epilepticus, unspecified epilepsy type (HCC) Expected: 03/08/2022, Expires: 05/08/2022 [facility] Work Phone: Comment on above: Expected: 03/08/2022, Expires: 2 Start: 03-08-2022 End: 05-08-2022 Valproate [Mass/volume] in Serum or Plasma VALPROIC A/DEPAKENE Lab Routine 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 status epilepticus, unspecified epilepsy type (HCC) Expected: 03/08/2022, Expires: 05/08/2022 [facility] Work Phone: Comment on above: Expected: 03/08/2022, Expires: 2 Start: 01-28-2022 Influenza vaccination INFLUENZA (#1) [facility] Start: 2022 ADVANCE DIRECTIVE DISCUSSION ADVANCE DIRECTIVE DISCUSSION [facility] Start: 09-24-2021 End: 11-24-2021 ALBUMIN/CREAT RATIO RND UR ALBUMIN/CREAT RATIO RND UR Lab Routine Type 2 diabetes mellitus without complication, without long-term current use of insulin (HCC) Expected: 09/24/2021, Expires: 11/24/2021 [facility] Work Phone: Comment on above: Expected: 09/24/2021, Expires: 2 Start: 09-24-2021 End: 11-24-2021 CBC W Auto Differential panel - Blood CBC + DIFF Lab Routine Type 2 diabetes mellitus without complication, without long-term current use of insulin (HCC) Expected: 09/24/2021, Expires: 11/24/2021 [facility] Work Phone: Comment on above: Expected: 09/24/2021, Expires: 2 Start: 09-24-2021 End: 11-24-2021 Comprehensive metabolic 2000 panel - Serum or Plasma COMP METABOLIC PANEL Lab Routine Type 2 diabetes mellitus without complication, without long-term current use of insulin (HCC) Expected: 09/24/2021, Expires: 11/24/2021 [facility] Work Phone: Comment on above: Expected: 09/24/2021, Expires: 2 Start: 09-24-2021 End: 11-24-2021 Hemoglobin A1c/Hemoglobin.total in Blood HGB A1C Lab Routine Type 2 diabetes mellitus without complication, without long-term current use of insulin (HCC) Expected: 09/24/2021, Expires: 11/24/2021 [facility] Work Phone: Comment on above: Expected: 09/24/2021, Expires: 2 Start: 09-24-2021 End: 11-24-2021 Hepatitis C virus Ab [Presence] in Serum HEP C AB IA W/CONF SCRN Lab Routine Need for hepatitis C screening test Expected: 09/24/2021, Expires: 11/24/2021 [facility] Work Phone: Comment on above: Expected: 09/24/2021, Expires: 2 Start: 09-24-2021 End: 11-24-2021 HIV 1+2 Ab [Presence] in Serum or Plasma by Immunoassay HIV 1 2 COMBO(AG/AB),WITH REFLEX TO DIFFERENTIATION Lab Routine Screening for HIV (human immunodeficiency virus) Expected: 09/24/2021, Expires: 11/24/2021 [facility] Work Phone: Comment on above: Expected: 09/24/2021, Expires: 2 Start: 09-24-2021 End: 11-24-2021 LIPID PANEL BASIC LIPID PANEL BASIC Lab Routine Type 2 diabetes mellitus without complication, without long-term current use of insulin (HCC) Expected: 09/24/2021, Expires: 11/24/2021 [facility] Work Phone: Comment on above: Expected: 09/24/2021, Expires: 2 Start: 09-24-2021 End: 11-24-2021 VALPROIC A/DEPAKENE VALPROIC A/DEPAKENE Lab Routine Seizures (HCC) Expected: 09/24/2021, Expires: 11/24/2021 [facility] Work Phone: Comment on above: Expected: 09/24/2021, Expires: 2 Start: 09-23-2021 Hemoglobin A1c/Hemoglobin.total in Blood HBA1C [facility] Start: 09-08-2021 End: 11-08-2021 ALBUMIN/CREAT RATIO RND UR ALBUMIN/CREAT RATIO RND UR Lab Routine Type 2 diabetes mellitus without complication, without long-term current use of insulin (HCC) Expected: 09/08/2021, Expires: 11/08/2021 [facility] Work Phone: Comment on above: Expected: 09/08/2021, Expires: 2 Start: 09-08-2021 End: 11-08-2021 Hemoglobin A1c/Hemoglobin.total in Blood HGB A1C Lab Routine Type 2 diabetes mellitus without complication, without long-term current use of insulin (HCC) Expected: 09/08/2021, Expires: 11/08/2021 [facility] Work Phone: Comment on above: Expected: 09/08/2021, Expires: 2 Start: 09-08-2021 End: 11-08-2021 SCHEDULE LAB TESTING SCHEDULE LAB TESTING Lab Routine Expected: 09/08/2021, Expires: 11/08/2021 [facility] Work Phone: Comment on above: Expected: 09/08/2021, Expires: 2 Start: 07-14-2021 COVID-19 VACCINE (3 - Booster for Moderna series) COVID-19 VACCINE (3 - Booster for Moderna series) [facility] Start: 05-30-2021 DEPRESSION ASSESSMENT DEPRESSION ASSESSMENT [facility] Start: 04-08-2021 COVID-19 VACCINE (3 - Booster for Moderna series) COVID-19 VACCINE (3 - Booster for Moderna series) [facility] Start: 04-08-2021 COVID-19 VACCINE (3 - Moderna series) COVID-19 VACCINE (3 - Moderna series) [facility] Start: 07-23-2020 PROSTATE CANCER SCREENING DISCUSSION PROSTATE CANCER SCREENING DISCUSSION [facility] Start: 03-01-2019 PNEUMOCOCCAL: 65+ (2 - PCV) PNEUMOCOCCAL: 65+ (2 - PCV) [facility] Start: 03-02-2017 Adult depression screening assessment DEPRESSION SCREENING [facility] Start: 2017 Hepatitis B Vaccine (1 of 3 - Risk 3-dose series) Hepatitis B Vaccine (1 of 3 - Risk 3-dose series) [facility] Start: 2017 RSV Vaccine (1 - 1-dose 60+ series) RSV Vaccine (1 - 1-dose 60+ series) [facility] Start: 2002 COLOGUARD (FIT-DNA) COLOGUARD (FIT-DNA) [facility] Start: 2002 Colonoscopy COLONOSCOPY [facility] Start: 2002 COLORECTAL CANCER SCREENING COLORECTAL CANCER SCREENING [facility] Start: [address] COLONOGRAPHY [facility] Start: 2002 FECAL OCCULT BLOOD FECAL OCCULT BLOOD [facility] Start: 2002 Screening for malignant neoplasm of colon [facility] Start: 2002 SIGMOIDOSCOPY SIGMOIDOSCOPY [facility] Start: 01-04-1976 Urine microalbumin profile [facility] Start: 1975 BP CONTROLLED (<130/80) BP CONTROLLED (<130/80) [facility] Start: 1975 HEPATITIS C SCREENING HEPATITIS C SCREENING [facility] Start: 1975 HIV SCREENING HIV SCREENING [facility] Start: 1967 3 comp foot exam completed DIABETIC FOOT EXAM [facility] Start: 1967 Hepatitis B screening URINE ALBUMIN:CREATININE RATIO [facility] Start: 1967 Hepatitis C antibody, confirmatory test DILATED RETINAL EXAM [facility] Start: 1962 COVID-19 VACCINE (1) COVID-19 VACCINE (1) [facility] Start: 1957 ABDOMINAL AORTIC ANEURYSM SCREENING ABDOMINAL AORTIC ANEURYSM SCREENING [facility] Start: 1957 Abdominal aortic aneurysm screening Abdominal Aortic Aneurysm Screening [facility] COLOGUARD COLOGUARD Lab Ro utine Screening for colon cancer Ordered: 09/24/2021 [facility] Work Phone: Comment on above: Ordered: 09/24/2021 COLOGUARD COLOGUARD Lab Ro utine Screening for colon cancer Ordered: 09/30/2022 [facility] Work Phone: Comment on above: Ordered: 09/30/2022 COLOGUARD COLOGUARD Lab Ro utine Screening for colon cancer Ordered: 11/22/2023 [facility] Comment on above: Ordered: 11/22/2023 End: 03-10-2023 Echocardiography ECHO Cardiology Routine 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 (HCC) Non-rheumatic tricuspid valve insufficiency Mitral valve insufficiency, unspecified etiology Primary pulmonary HTN (HCC) Enlarged thoracic aorta (HCC) 1 Occurrences starting 03/10/2022 until 03/10/2023 [facility] Work Phone: Comment on above: 1 Occurrences starting 03/10/2022 until 03/10/2023 End: 03-08-2023 EPIL EEG ROUTINE EPIL EEG ROUTINE NEUROLOGY Routine 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 status epilepticus, unspecified epilepsy type (HCC) 1 Occurrences starting 03/08/2022 until 03/08/2023 [facility] Work Phone: Comment on above: 1 Occurrences starting 03/08/2022 until 03/08/2023 End: 05-12-2023 Mra head w/o contrst material MRA BRAIN WO IVCON Radiology Routine Other symptoms and signs involving the nervous system 1 Occurrences starting 04/12/2022 until 05/12/2023 [facility] Work Phone: Comment on above: 1 Occurrences starting 04/12/2022 until 05/12/2023 End: 05-12-2023 Mra neck w/o contrst material MRA CAROTID WO IVCON Radiology Routine Other symptoms and signs involving the nervous system 1 Occurrences starting 04/12/2022 until 05/12/2023 [facility] Work Phone: Comment on above: 1 Occurrences starting 04/12/2022 until 05/12/2023 End: 04-07-2023 Mri brain brain stem w/o contrast material MRI BRAIN WO IVCON Radiology Routine 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 status epilepticus, unspecified epilepsy type (HCC) 1 Occurrences starting 03/08/2022 until 04/07/2023 [facility] Work Phone: Comment on above: 1 Occurrences starting 03/08/2022 until 04/07/2023 Patient Education ED, Migraine (Classical ) [facility] Work Phone: Patient referral [facility] Work Phone: [employer] COVI D-19 BIVALENT BOOSTER VACCINE, AGE 12+ YR [employer] COVID-19 BIVALENT BOOSTER VACCINE, AGE 12+ YR Immunization/Injection Routine Need for COVID-19 vaccine Ordered: 03/09/2022 [facility] Work Phone: Comment on above: Ordered: 03/09/2022 End: 10-01-2023 [facility] Vascular Lab Routine Peripheral vascular disease (HCC) 1 Occurrences starting 09/30/2022 until 10/01/2023 [facility] Work Phone: Comment on above: 1 Occurrences starting 09/30/2022 until 10/01/2023 End: 12-21-2024 US Abdominal Aorta for screening US SCREENING FOR AAA Radiology Routine Screening for abdominal aortic aneurysm 1 Occurrences starting 11/22/2023 until 12/21/2024 [facility] Comment on above: 1 Occurrences starting 11/22/2023 until 12/21/2024 End: 05-01-2023 Us abdominal aorta real time screen study aaa US SCREENING FOR AAA Radiology Routine Screening for AAA (abdominal aortic aneurysm) 1 Occurrences starting 04/01/2022 until 05/01/2023 [facility] Work Phone: Comment on above: 1 Occurrences starting 04/01/2022 until 05/01/2023 End: 10-30-2023 Us abdominal aorta real time screen study aaa US SCREENING FOR AAA Radiology Routine Screening for AAA (abdominal aortic aneurysm) 1 Occurrences starting 09/30/2022 until 10/30/2023 [facility] Work Phone: Comment on above: 1 Occurrences starting 09/30/2022 until 10/30/2023 [facility] Immunizations Immunization Date Immunization Notes Care Provider Cecil alvarez 07-10-2024 influenza, high dose seasonal, preservative-free Dr. Aric Zapien MD Work Phone: [facility] 11-28-2023 COVID-19 vaccine, ag e 12+ yr, season ([employer]) CYNTHIA Max PA-C Work Phone: [facility] 05-24-2023 COVID-19 vaccine, ag e 12+ yr, season ([employer]) Aric Zapien MD Work Phone: [facility] 05-24-2023 influenza (HD-IIV4) vaccine, age 65+ yr, high dose, quadrivalent, PF (FLUZONE HIGH-DOSE) Aric Zapien MD Work Phone: [facility] 05-24-2023 influenza virus vaccine, unspecified formulation CYNTHIA Max PA-C Work Phone: [facility] 03-12-2022 influenza, high dose seasonal, preservative-free Aric Zapien MD Work Phone: [facility] 03-12-2022 influenza virus vaccine, unspecified formulation Mri (I-Stat/1.5t) Work Phone: [facility] 03-09-2022 pneumococcal Conjuga te, unspecified formulation CYNTHIA Max PA-C Work Phone: [facility] Work Phone: 03-09-2022 pneumococcal (PCV20) vaccine, 20 valent (PREVNAR 20) CYNTHIA Max PA-C Work Phone: [facility] Work Phone: 03-25-2021 influenza, injectabl e, quadrivalent, contains preservative Aric Zapien MD Work Phone: [facility] 02-11-2021 COVID-19 original vaccine, full dose, monovalent (MODERNA) Aric Zapien MD Work Phone: [facility] 01-14-2021 COVID-19 original vaccine, full dose, monovalent (MODERNA) Aric Zapien MD Work Phone: [facility] 02-29-2020 influenza, high dose seasonal, preservative-free Aric Zapien MD Work Phone: [facility] 02-29-2020 influenza, injectabl e, quadrivalent, preservative free Aric Zapien MD Work Phone: [facility] 02-29-2020 zoster vaccine recombinant Aric Zapien MD Work Phone: [facility] 10-31-2019 zoster vaccine recombinant Aric Zapien MD Work Phone: [facility] 03-31-2019 Influenza, injectabl e, Madin Seaton Canine Kidney, preservative free, quadrivalent Aric Zapien MD Work Phone: [facility] 03-31-2019 influenza, seasonal, injectable Aric Zapien MD Work Phone: [facility] 03-01-2018 influenza, injectabl e, quadrivalent, preservative free Aric Zapien MD Work Phone: [facility] 03-01-2018 pneumococcal polysaccharide vaccine, 23 valent Aric Zapien MD Work Phone: [facility] 03-22-2017 influenza, seasonal, injectable Aric Zapien MD Work Phone: [facility] 03-22-2017 influenza, seasonal, injectable, preservative free Aric Zapien MD Work Phone: [facility] 04-29-2015 influenza, injectabl e, quadrivalent, preservative free Dr. Aric Zapien Work Phone: [facility] 04-29-2015 influenza, seasonal, injectable [facility] Work Phone: 04-29-2015 influenza, seasonal, injectable, preservative free Aric Zapien MD Work Phone: [facility] NEGATED: Highlighted row has not occurred!03-09-2022 COVID-19 booster vaccine, age 12+ yr, bivalent ([employer]) NA Mansoor PERRY Work Phone: [facility] Work Phone: Comment on above: Deferred: Postponed Payers Date Payer Category Payer Medicare [id number] 2024 Self-pay [id number] 2023 Medicare (Managed Care) [facility] [id number] 2023 Unknown [facility] MEDICARE ADVANTAGE O [id number] 2023-Present [phone] [address] [place] [address] [facility] [id number] 2023 Medicare [id number] 2023 Unknown [id number] 2019 Medicaid MEDICAID [facility] MEDICAID [id number] 2019-Present [phone] [address] [place] [address] Medicaid [id number] 2018 Medicare [facility] MEDICARE [facility] DUAL COMPLETE HMO SNP [id number] 2018-Present [phone] [address] [place] [address] Medicare [id number] 2018 Medicare [id number] 2017 Medicaid [id number] 2017 Medicaid [id number] Unknown [employer] [id number] Unknown [facility] MCRDUAL COMP HMO [id number] Unknown [facility] AUTH REQUIR ED SEE NOTE [id number] Unknown [facility] MCRDUAL COMPLETE [id number] Unknown [id number]. 462 Unknown [id number] 07.15.830.1.860813.3.579.2. 462 Unknown [id number] .[id number]. 462 Unknown [id number] 07.15.830.1.571051.3.579.2. 462 Unknown [id number] 07.15.830.1.222998.3.579.2. 462 Unknown [id number] 2.16.840.1.635622.3.579.2. 462 Unknown [id number] 2.16.840.1.804574.3.579.2. 462 Unknown [id number] 2.16.840.1.395798.3.579.2. 462 Unknown [id number] 2.16.840.1.444024.3.579.2. 462 Unknown [id number] 2.16.840.1.744327.3.579.2. 462 Unknown [id number] 2.16.840.1.417222.3.579.2. 462 Unknown [id number] 2.16.840.1.111620.3.579.2. 462 Unknown [id number] 2.16.840.1.856223.3.579.2. 462 Unknown [id number] 2.16.840.1.494118.3.579.2. 462 Unknown [id number] 2.16.840.1.686178.3.579.2. 462 Unknown [id number] 2.16.840.1.942726.3.579.2. 462 Social History Date Type Detail Facility Start: 07-23-2015 End: 03-08-2022 Tobacco smoking status NHIS Ex-smoker [facility] Start: 07-23-2015 End: 03-08-2022 Tobacco use and exposure Smokeless tobacco non-user [facility] Start: 04-14-2021 End: 06-22-2024 Alcohol intake Not Asked [facility] Start: 07-23-2015 End: 03-08-2022 Tobacco Comment Quit in 2005 [facility] Start: 1955 Sex Assigned At Not on file C [facility] Start: 02-10-2021 End: 04-01-2022 Exposure to SARS-CoV-2 (event) Not sure [facility] History of tobacco use Current smoker [facility] Start: 02-15-2022 End: 02-25-2022 Exposure to SARS-CoV-2 (event) Unable to assess [facility] Work Phone: Start: 03-06-2022 End: 06-23-2023 Tobacco smoking status NHIS Unknown if ever smoked [facility] Start: 09-15-2014 None [facility] Start: 09-15-2014 Alone;- [facility] Start: 04-27-2015 Non-smoker [facility] Start: 1955 Sex Assigned At Male [facility] Start: 09-30-2022 End: 12-07-2022 History of Social function [facility] Work Phone: Start: 09-30-2022 End: 12-07-2022 Tobacco use panel [facility] Work Phone: Adult Depression Screening Assessment 0 [facility] Work Phone: Start: 09-11-2024 Sex Male (finding) [facility] Medical Equipment Procedure Code Equipment Code Equipment Origin al Text Equipment Identifier Dates Test blood sugar (s) 1 times daily. Dx: Type 2 DM - Uncontrolled E11.65 Insulin: No [id number], [id number] Start: 04-01-2022 Comment on above: Test blood sugar(s) 1 times daily. Dx: Type 2 DM - Uncontrolled E11.65 Insulin: No Goals Date Patient Goal Desired Activity /State Functional Status Date Assessment Result Facility 07-11-2024 Functional status Chair [facility] Work Phone: 07-10-2024 Functional status Tolerates Activity Well [facility] Work Phone: 03-09-2022 Are you deaf, or do you have serious difficulty hearing No [facility] 03-09-2022 Are you blind, or do you have serious difficulty seeing, even when wearing glasses No [facility] 03-09-2022 Do you have serious difficulty walking or climbing stairs No [facility] 03-09-2022 Do you have difficul ty dressing or bathing No [facility] 03-09-2022 Because of a physica l, mental, or emotional condition, do you have difficulty doing errands alone such as visiting a physician's office or shopping No [facility] Mental Status Date Assessment Result Facility 07-11-2024 Cognitive function Voice/Name [facility] Work Phone: 03-09-2022 Because of a physica l, mental, or emotional condition, do you have serious difficulty concentrating, remembering, or making decisions Yes [facility] 03-06-2022 Cognitive function Level Of Cons ciousness Awake;Alert;Appropriate;Fol lows Commands;Responds to vocal stimuli [facility] Work Phone: Clinical Notes 06-27-2020 to 10-25-2024 Telephone Encounter - Nida Root LPN - 10/25/2024 12:23 PM EDTTelephone Encounter - Nida Root LPN - 10/25/2024 12:23 PM EDTTelephone Encounter - Felicita Bolden MA - 07/16/2024 3:25 PM EST Note Date & Type Note Facility 10-25-2024 Telephone encount er Note No show letter #2 sent to patient. [facility] 10-25-2024 Miscellaneous Notes Formattin g of this note might be different from the original. No show letter #2 sent to patient. documented in this encounter [facility] 07-16-2024 Telephone encount er Note Patient canceled his appointment on 07/12/24 with Isa Stevenson. He was discharged from [facility] on 07/11/24 DX: AFIB RVR, debility. Called and spoke with ex- Flor, his emergency contact, and she said he is in [facility] for rehab with the hopes for permanent placement afterwards. Felicita Bolden MA July 16, 2024 3:30 PM [facility] 07-16-2024 Miscellaneous Notes Formattin g of this note might be different from the original. Patient canceled his appointment on 07/12/24 with Isa Stevenson. He was discharged from [facility] on 07/11/24 DX: AFIB RVR, debility. Called and spoke with ex- Flor, his emergency contact, and she said he is in [facility] for rehab with the hopes for permanent placement afterwards. Felicita Bolden MA July 16, 2024 3:30 PM documented in this encounter [facility] 07-11-2024 Note [facility] Medical Records Department [address] [place] [address] Discharge Summary 07/11/24 0914 MR#: [id number] Acct: [id number] Name: REINA SULLIVAN Rep #: [id number] : 1955 69 From: Yann Ascencio DO PCP: Dr. Aric Zapien MD Status:ADM IN Location: [place] [address] Providers Date of Admission: 07/09/24 Primary Care [...] Ascencio Referring Physician: Aric Zapien Performed By: nAn-Marie Cao RDCS, RVT D/C Instructions Discharge Diet: [...] 80mg (more content not included)... [facility] 07-09-2024 Evaluation note Diagnosis Onset Date Resolution Atrial fibrillation with rapid ventricular response resolved July 09 10:34am Bilateral ankle pain resolved 2024 10:34am Bilateral leg and foot pain resolved July 09 10:34am [facility] Work Phone: [phone] 352-421501-28-2025 Telephone encounter Note* Telephone Encounter - Rodolfo Werner - 06/26/2024 8:25 AM EST I left a vm for patient to call when available to schedule an appt fro his fracture referral in hischart [facility]01-28-2025 Miscellaneous Notes* Telephone Encounter - Rodolfo Werner - 06/26/2024 8:25 AM EST I left a vm for patient to call when available to schedule an appt fro his fracture referral in hischart documented in this encounterUniversity [facility]als [facility]01-27-2025 Telephone encounter Note * Telephone Encounter - Felicita Bolden MA - 06/25/2024 11:51 AM EST Spoke with ex , Halima, and she was made aware of results and provider message. She was also given the number to call and schedule his appointment for spine. She verbalizes understanding. Felicita Bolden MA June 25, 2024 11:52 AM [facility]01-27-2025 Miscellaneous Notes* Telephone Encounter - [...] Halima Sullivan. 06/16/24 telephone encounter routed to [facility] for back, neck, and spine pool again for schedulingconsultation with orthopaedic resource protection specialist. * Telephone Encounter - Karla Ferguson [...] have a compression fracture. documented in this encounterUniversity [facility]als [facility]01-27-2025 Telephone encounter Note * Telephone Encounter - Mecca Summers - 06/25/2024 10:58 AM EST Patient returned missed call and received the provider's message. He voiced understanding. Patient requests all medical updates be discussed with his ex-spouse, Halima Sullivan. 06/16/24 telephone encounter routed to [facility] for back, neck, and spine pool again for schedulingconsultation with orthopaedic resource protection specialist. [facility]01-27-2025 Telephone encounter Note* Telephone Encounter - Karla Ferguson MA - 06/25/2024 10:47 AM EST Message left for pt to call back for results. Karla Ferguson MA [facility]01-27-2025 Telephone encounter Note* Telephone Encounter - Florinda [...] surgery. He does have a compression fracture. [facility]01-24-2025 Telephone encounter Note* Telephone Encounter - Florinda Stevenson APRN.CNP - 06/22/2024 5:03 PM EST Yes. 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 Does not need surgery but they can evaluate for kyphoplasty- setting the compression if needed [facility]01-24-2025 Miscellaneous Notes* Telephone Encounter - Florinda Stevenson APRN.CNP - 06/22/2024 5:03 PM EST Yes. 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 Does not need surgery but they [...] appropriately. Rebecca Dumas RN documented in this encounterUniversity Hospitals [facility] Center01-24-2025 Miscellaneous Notes* Telephone Encounter - Mecca Summers - 06/22/2024 4:41 PM EST [place] [facility] unauthorized to schedule for this department. Patient notified that JARRETT routed referralto the appropriate department and their facility will contact patient for scheduling. Patient requests all future medical information and appointment scheduling be disclosed to ex-spouse, Flor Sullivan, only. * Telephone Encounter - Felicita Bolden MA - 06/22/2024 4:29 PM EST Patient notified of results and transferred to senior scheduler * Telephone Encounter - Florinda Stevenson [...] if pt knows he is scheduled at [facility] * Telephone Encounter - Aric Zapien MD - 06/19/2024 10:50 AM EST Please call before (I suspect was put in wrong place) * Telephone Encounter - Aric Zapien MD - 06/16/2024 8:47 AM EST Schedule to see me at [facility] in person on 06/21/24. Please make sure they are aware apptthey scheduled is at that office and not [place] documented in this encounterUniversity Hospitals Geneva [facility] Center01-24-2025 Telephone encounter Note * Telephone Encounter - Mecca Summers - 06/22/2024 4:41 PM EST Mel [facility] unauthorized to schedule for this department. Patient notified that JARRETT routed referralto the appropriate department and their facility will contact patient for scheduling. Patient requests all future medical information and appointment scheduling be disclosed to ex-spouse, Flor Sullivan, only. [facility]01-24-2025 Telephone encounter Note* Telephone Encounter - Rebecca Dumas RN - 06/22/2024 4:36 PM EST Asking for provider to clarify pt's order for [facility]. Does patient need to see a surgeon? Please advise so that [facility] staff can schedule patient appropriately. Rebecca Dumas RN [facility]01-24-2025 Telephone encounter Note* Telephone Encounter - Felicita Bolden MA - 06/22/2024 4:29 PM EST Patient notified of results and transferred to senior scheduler [facility]01-24-2025 Telephone encounter Note* Telephone Encounter - Florinda Stevenson APRN.CNP - 06/22/2024 3:34 PM EST Please let patient know that he has a lumbar 1 compression fracture of the endplate. I am going to send him to a spine surgeon to review. Please facilitate primaryscheduling [facility]01-24-2025 NoteHNO ID: [id number] Author: EKATERINA BELTRE Tech Service: ? Author [...] PATIENT PRESENTS WITH AN IMPLANTABLE OR ATTACHED TENON MACHINE OPERATOR: No RADIOLOGY DEPARTMENT: General X-ray: Exam(s) Completed: Spine X-Ray(s): Lumbar AP / LAT / L5-S1 PERIPHERAL IV DATA: Not applicable SIGNED BY: Rosa Wakefield June 22, 2024 2:52 [facility]01-24-2025 Instructions* Patient Instructions* Florinda Stevenson APRN.CNP - 06/22/2024 1:59 PM EST 1) Check blood and urine in lab 2) Xray lumbar spine 3) Methocarbamol 500 mg 3 x day as needed for low back pain 4) Follow up in 2 weeks documented in this encounterUniversity Hospitals [facility] Center01-24-2025 NoteHNO ID: [id number] Author: FLORINDA STEVENSON APRN.CNP Service: ? Author [...] PAST MEDICAL HISTORY Diagnosis Date Atrial fibrillation ([facility]) Dr. 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 Huston TBI (traumatic brain injury) ([facility]) 2 times PAST SURGICAL HISTORY Procedure Laterality [...] complication, without long-term current use of insulin ([facility]) - ICD9: 250.00, ICD10: E11.9 (primary diagnosis) [...] M54.50 Concern for compressi (more content not included)...[facility] 06-22-2024 History of Present illness Narrative* Florinda Stevenson APRN.STABLE CLEANER - 06/22/2024 1:35 PM EST This is [...] PAST MEDICAL HISTORY Diagnosis Date Atrial fibrillation ([facility]) Dr. 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 Huston TBI (traumatic brain injury) ([facility]) 2 times PAST SURGICAL HISTORY Procedure Laterality Date LEFT HEART CATH,PERCUTANEOUS 09/08/2015 Ale Dewittoster: cardiac cath: no disease EF 60%, 2+ [...] as needed for worsening/no improvement. Florinda Stevenson APRN.STABLE CLEANER documented in this encounterUniversity Hospitals [facility] Center01-21-2025 Telephone encounter Note * Telephone Encounter - Felicita Bolden MA - 06/19/2024 11:20 AM EST Please call pt and ask if pt knows he is scheduled at [facility]01-21-2025 Telephone encounter Note* Telephone Encounter - Aric Zapien MD - 06/19/2024 10:50 AM EST Please call before (I suspect was put in wrong place) [facility]01-18-2025 Telephone encounter Note* Telephone Encounter - Aric Zapien MD - 06/16/2024 8:47 AM EST Schedule to see me at [facility] in person on 06/21/24. Please make sure they are aware apptthey scheduled is at that office and not [place] [facility]01-16-2025 Telephone encounter Note* Telephone Encounter - Canones Lulu Bryant - 06/14/2024 10:31 AM EST Patient called to request medication. He stated that he will need the medication by tomorrow, 06/15/24. Scheduled patient due to he fell on ice, but he declined any other days/times/providers. He will only see Dr. Zapien. He stated he can wait. He can only come on a . Scheduled at his request on 06/21/24. [facility]01-16-2025 Miscellaneous Notes* Telephone Encounter - Canones Lulu Bryant - 06/14/2024 10:31 AM EST [...] 13, 2024 9:08 AM documented in this encounterUniversity Hospitals [facility] Center01-15-2025 Telephone encounter Note * Telephone [...] Courtney Crane June 13, 2024 9:08 AM [facility]12-30-2024 NoteHNO ID: [id number] Author: MAYURI PEREZ MA Service: ? Author Type: Final Inspector Balance Wheel Type: Progress Notes Filed: 05/28/2024 19:08 Note Text: POPULATION HEALTH NAVIGATION OUTREACH Action/FYI MCAIP OUTREACH Reason for Outreach Suspected Conditions Patient Contacted: Unable or unnecessary to reach patient: Left message Navigation Signature: Mayuri Perez MA May 28, 2024 7:07 [facility]12-30-2024 History of Present illness Narrative* Mayuri Perez MA - 05/28/2024 7:07 PM EST POPULATION HEALTH NAVIGATION OUTREACH Action/FYI MCAIP OUTREACH Reason for Outreach Suspected Conditions Patient Contacted: Unable or unnecessary to reach patient: Left message Navigation Signature: Mayuri Perez MA May 28, 2024 7:07 PM documented in this encounterUniversity Hospitals Geneva [facility] Center12-30-2024 NotePatient Outreach (NETNAV) GIOVANAREINA Mata ([id number]) 1955 M Date Time Provider Department 05/28/24 MAYURI PEREZ During your visit today, we recorded the following information about you: Mayuri Perez MA 05/28/2024 7:08 PM Signed POPULATION HEALTH NAVIGATION OUTREACH Action/FYI MCA OUTREACH [...] Visit: Population Health Navigation Outreach [3910] Cmt: [facility] OUTREACH Prescriptions as of 05/28/2024 - [...] unspecified na*09/30/2022 Left atrial enlargement [I51.7] 09/30/2022 residential current use of 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 *09/30/2022 Migraine [...] 09/30/2022 Encounter Status:Closed by MAYURI PEREZ [facility]24[facility] History of Present illness Narrative* Edward Pleitez [facility] - 04/18/2024 11:07 AM EST Pt chart reviewed as part of population health initiative focused on statin use in patients with diabetes (DM) or cardiovascular disease (CVD). Reina Sullivan is identified through data from [employer] (insurer) as a potential candidate for statin [...] indicates patient has hx of CVA and VA, should be on high-intensity statin for secondary prevention. Patient scheduled to see PCP on 05/25. ALLERGIES Allergen Reactions Dye Other: See Comments used for heart cath PAST MEDICAL HISTORY Diagnosis Date Atrial fibrillation ([facility]) Dr. 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 Huston TBI (traumatic brain injury) ([facility]) 2 times Cholesterol, Total (mg/dL) Date Value [...] provider Edward Pleitez RPh documented in this encounterUniversity Hospitals Geneva Medical Center11-20-2024 NoteHNO ID: [id number] Author: EDWARD PLEITEZ RPh Service: ? Author Type: Pharmacist Type: Progress Notes Filed: 04/18/2024 11:12 Note Text: Pt chart reviewed as part of population health initiative focused on statin use in patients with diabetes (DM) or cardiovascular disease (CVD). Reina Sullivan is identified through data from [employer] (insurer) as a potential candidate for statin [...] indicates patient has hx of CVA and VA, should be on high-intensity statin for secondary prevention. Patient scheduled to see PCP on 05/25. ALLERGIES Allergen Reactions Dye Other: See Comments used for heart cath PAST MEDICAL HISTORY Diagnosis Date Atrial fibrillation ([facility]) Dr. 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 Huston TBI (traumatic brain injury) ([facility]) 2 times Cholesterol, Total (mg/dL) Date Value [...] Outcome of review: Pending outreach to provider [facility] NoteHNO ID: [id number] Author: EDWARD PLEITEZ RPh Service: ? Author Type: Pharmacist Type: Progress Notes Filed: 05/28/2024 15:55 Note Text: Appears patient was a no-show to PCP visit on 05/25. Edward Pleitez, PharmBarbra, BCPS Primary Care Clinical PharmacistMercy Health [facility]11-20-2024 NotePatient Outreach (PHMEWO) REINA SULLIVAN ([id number]) 1955 M Date Time Provider Department 04/18/24 [facility] During your visit today, we recorded the following information about you: Edward Pleitez [facility] 04/18/2024 11:12 AM Signed Pt chart reviewed as part of population health initiative focused on statin use in patients with diabetes (DM) or cardiovascular disease (CVD). Reina Sullivan is identified through data from [employer] (insurer) as a potential candidate for statin [...] indicates patient has hx of CVA and VA, should be on high-intensity statin for secondary prevention. Patient scheduled to see PCP on 05/25. ALLERGIES Allergen Reactions Dye Other: See Comments used for heart cath PAST MEDICAL HISTORY Diagnosis Date Atrial fibrillation ([facility]) Dr. 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 Huston TBI (traumatic brain injury) ([facility]) 2 times Cholesterol, Total (mg/dL) Date Value [...] unspecified na*09/30/2022 Left atrial enlargement [I51.7] 09/30/2022 residential current use of 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 *09/30/2022 Migraine headac (more content not included)...[facility] 03-22-2024 Telephone encounter Note* Telephone Encounter - Merline Jimenez RN - 03/22/2024 2:44 PM EDT Patient does not see endocrinology. Will route to PCP office to make them aware. Merline Jimenez RN March 22, 2024 2:44 PM [facility]10-24-2024 Miscellaneous Notes* Telephone Encounter - Merline Jimenez RN - 03/22/2024 2:44 PM EDT Patient does not see endocrinology. Will route to PCP office to make them aware. Merline Jimenez RN March 22, 2024 2:44 PM * Telephone Encounter - Vanna Flores - 03/21/2024 3:31 PM EDT [place] states that their records show patient has diabetes but does not take statins. AMA recommendthat patient take a statin to reduce cardiovascular risk. documented in this encounterUniversity Hospitals Geneva [facility] Center10-23-2024 Telephone encounter Note * Telephone Encounter - Vanna Flores - 03/21/2024 3:31 PM EDT [facility] states that their records show patient has diabetes but does not take statins. AMA recommendthat patient take a statin to reduce cardiovascular risk. [facility]10-17-2024 NoteHNO ID: [id number] Author: YOLANDA STRATTON MA Service: ? Author Type: Final Inspector Balance Wheel Type: Progress Notes Filed: 03/15/2024 08:28 Note Text: POPULATION HEALTH NAVIGATION OUTREACH Action/FYI Letter received and sent to be mailed. Navigation Signature: Yolanda Stratton MA March 15, 2024 8:27 [facility]10-09-2024 NoteHNO ID: [id number] Author: JORDY HERNANDEZ MA Service: ? Author Type: Final Inspector Balance Wheel Type: Progress Notes Filed: 03/07/2024 10:40 Note Text: POPULATION HEALTH NAVIGATION OUTREACH Action/FYI Patient is on [facility] CURRENT ROSTER Workbench list for below [...] reach patient, phone rings then goes to [employer] signal - no voicemail, unable to leave [...] Jordy Hernandez MA March 07, 2024 7:34 [facility]10-09-2024 History of Present illness Narrative* Jordy Hernandez MA - 03/07/2024 7:34 AM EDT POPULATION HEALTH NAVIGATION OUTREACH Action/FYI Patient is on [facility] CURRENT ROSTER Workbench list for below [...] 07, 2024 7:34 AM documented in this encounterUniversity Hospitals Geneva Medical Center10-09-2024 NotePatient Outreach (NETNAV) REINA SULLIVAN ([id number]) 1955 M Date Time Provider Department 03/07/24 JORDY HERNANDEZ [employer] During your visit today, we recorded the following information about you: Jordy Hernandez MA 03/07/2024 10:40 AM Signed POPULATION HEALTH NAVIGATION OUTREACH Action/FYI Patient is on [facility] CURRENT ROSTER Workbench list for below [...] unspecified na*09/30/2022 Left atrial enlargement [I51.7] 09/30/2022 residential current use of 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 *09/30/2022 Migraine [...] Text Encounter Status:Closed by JORDY HERNANDEZ on 03/07/24[facility] NoteHNO ID: [id number] Author: MOSHE FRIEDMAN MA Service: ? Author Type: Final Inspector Balance Wheel Type: Progress Notes Filed: 12/15/2023 13:03 Note [...] Moshe Friedman MA December 15, 2023 1:01 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 Halima notes that she helps patient to a certain extent. Halima and Nikkie spoke about [facility] Older Adult Resource Directory. Halima asks that Sw mail patient this guide for him to review and see what services are available in the community. Sw will also attach [facility] Older Adult support program and [facility] information. [facility]06-27-2024 Miscellaneous Notes* Telephone Encounter - Harvey Hazel MSW - 11/24/2023 12:54 PM EDT Nikkie called and spoke with Halima, patient ex in regards to service assistance options in the community. Halima notes that she helps patient to a certain extent. Halima and Nikkie spoke about [facility] Older Adult Resource Directory. Halima asks that Sw mail patient this guide for him to review and see what services are available in the community. Sw will also attach [facility] Older Adult support program and [facility] information. documented in this encounterUniversity Hospitals Geneva Medical Center06-25-2024 Instructions* Patient Instructions* Jaison Max PA-C - 11/22/2023 3:54 PM EDT Nail dremmel for nail trimming might help, would need assistance documented in this encounterUniversity Hospitals Geneva Medical Center06-25-2024 History of Present illness Narrative* [...] daily No seizures. 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 James [place]: cardiac cath: no disease 09/08/2015 cardiac catheterization [facility] Dr. 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 Huston TBI (traumatic brain injury) ([facility]) 2 times PAST SURGICAL HISTORY Procedure Laterality [...] Other and Unspecified Nature Left Atrial Enlargement Care Home Current Use of Anticoagulant Therapy Migraine Headache [...] METABOLIC PANEL - LIPID PANEL BASIC 7. residential current use of 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 - ICD9: [...] immunization - ICD9: V03.89, ICD10: Z23 - [employer] COVID-19 VACCINE (2022- SEAS[place]) AGE 12+ YR [...] plan Jaison Max PA-C documented in this encounterUniversity Hospitals Geneva Medical Center06-25-2024 NoteHNO ID: [id number] Author: Jaison MAX PA-C Service: ? Author Type: Physician Mortgage Loan Reviewer Type: Progress Notes Filed: 11/28/2023 09:49 Note Text: 68 year old male with c/o 6-month follow-up Last visit Dr. 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 Aric Huston Current medications: Apixaban 5 mg twice daily Divalproex DR 500 mg 1 tablet twice daily No seizures. 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) residential current use of 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 Non-rheumatic tricuspid [...] stable AF, no concerns 09/08/2015 Dr. James [place]: cardiac cath: no disease 09/08/2015 cardiac catheterization [facility] Dr. James: - primary rhythm atrial fibrillation [...] Lymph 1.00 - 4.00 k/uL 1.57 2.35 [place]% % 9.8 11.3 Abs [place] <0.87 k/uL 0.66 0.98 (H) Eosin% % [...] / Complications: hypertension, hyperlipide (more content not included)...[facility]06-11-2024 Telephone encounter Note* Telephone Encounter - Amador Bryant Yolanda M - 11/08/2023 10:10 AM EDT Prescription Refill [...] Yolanda Bryant November 08, 2023 10:11 AM [facility]06-11-2024 Miscellaneous Notes* Telephone Encounter - [...] 08, 2023 10:11 AM documented in this encounterUniversity Hospitals Geneva Medical Center06-03-2024 Telephone encounter Note * Telephone [...] 11/22/2023 Please advise. Thank you. Bree Johnson. [facility]06-03-2024 Miscellaneous Notes* Telephone Encounter - [...] 11/22/2023 Please advise. Thank you. Bree Hernandez [facility]. documented in this encounterUniversity Hospitals Geneva Medical Center07-11-2023 History of Present illness Narrative* Sarah Leone PA - 12/07/2022 2:05 PM EDT This note was created using Strevusriter. Subjective Reina Sullivan is a 67 year [...] PAST MEDICAL HISTORY Diagnosis Date Atrial fibrillation ([facility]) Dr. 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 Huston TBI (traumatic brain injury) ([facility]) 2 times PAST SURGICAL HISTORY Procedure Laterality Date LEFT HEART CATH,PERCUTANEOUS 09/08/2015 Mel Dewitt: cardiac cath: no disease EF 60%, 2+ MR PAST SURGICAL HISTORY OF collarbone ALLERGIES Dye MEDICATIONS divalproex (DEPAKOTE) 500 mg EC tablet^Take 1 tablet [...] ER evaluation. CYNTHIA White documented in this encounterUniversity Hospitals Geneva Medical Center05-04-2023 History of Past illness Narrative* [...] of this encounter (statuses as of 09/30/2022) [facility]05-04-[facility]23 History of Past illness Narrative* [...] of this encounter (statuses as of 12/08/2022) [facility]05-04-2023 History of Present illness Narrative* [...] PAST MEDICAL HISTORY Diagnosis Date Atrial fibrillation ([facility]) Dr. 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 Huston TBI (traumatic brain injury) ([facility]) 2 times PAST SURGICAL HISTORY Procedure Laterality [...] - ICD9: 416.0, ICD10: I27.0 - per [place] cardiology 4. Primary hypertension - ICD9: 401.9, [...] YATES in two weeks. documented in this encounterUniversity Hospitals Geneva Medical Center01-20-2023 Miscellaneous Notes* Telephone Encounter - Karla Ferguson Ma - 06/18/2022 9:21 AM EST Last office visit: 04/01/22 F/u scheduled: 09/30/22 Karla Ferguson Ma * Telephone Encounter - Jesi Quintero Pss - 06/18/2022 9:06 AM EST Patient has [...] notify patient. Jesi Bryant documented in this encounterUniversity Hospitals Geneva Medical Center01-13-2023 History of Present illness Narrative* Leanna Benavidez RN - 06/11/2022 11:32 AM EST ACM COLEMAN RN Afsaneh Mercedes, My name is Leanna Benavidez RN. I am calling from [facility]. Your Healthcare team and Medicare provider would like to assist in your success in taking prescribed medications for cardiovascular health and/or diabetes. Is this a good time to talk with you? NO Called patient, home line no answer just niles, home phone [phone] not working Thank you - Leanna Benavidez RN Patient identified by name and date of . Patient Attributed To: QAE Payer: [facility] Reason for review or outreach: Medication Adherence Medication Adherence Review Details: Diabetes Summary / Findings: As per above Action Taken: Data submitted to Payer Other Contact made with patient: No, Unable to leave message Leanna Benavidez RN Signature: Leanna Benavidez RN documented in this encounterUniversity Hospitals Geneva Medical Center11-29-2022 Miscellaneous Notes* Telephone Encounter - Vickie Badillo Pss - 04/27/2022 1:45 PM EST The patient declined an appointment with general JARRETT. Soonest appointment at [place] is 08/16/22. Please advise. * Telephone Encounter - Berenice Weston Pss - 04/27/2022 11:49 AM EST Patient returned call and stated there is no way he can drive, or his friend is able to drive all the way to [place] for an appt. Requesting call back from nurse to discuss soonest appt herein [place]. Please advise. * Telephone Encounter - Vickie [...] of large vessel disease on imaging studies. Arci Huston MD documented in this encounterUniversity Hospitals Geneva Medical Center11-28-2022 History of Present illness Narrative* Felicita Ruiz, [...] DEPARTMENT: MR; Exam(s) Completed: Head: Routine Brain W[place] of [place] MRA Neck: Carotids MRA, bilateral PERIPHERAL IV DATA: Not applicable SIGNED BY: RT Rajendra(R) April 26, 2022 1:58 PM documented in this encounterUniversity Hospitals Geneva Medical Center11-16-2022 Miscellaneous Notes* Telephone Encounter - [...] Provider: Jaison MAX PA-C documented in this encounterUniversity Hospitals Geneva Medical Center11-14-2022 Miscellaneous Notes* Telephone Encounter - [...] ER. Aric Huston MD documented in this encounterUniversity Hospitals Geneva Medical Center11-14-2022 History of Present illness Narrative* [...] 12, 2022 3:18 PM documented in this encounterUniversity Hospitals Geneva Medical Center11-14-2022 Instructions* Patient Instructions* Marni Hare, OD - 04/12/2022 3:12 PM EST Use Refresh or Systane gel nightly in both eyes documented in this [facility]11-04-2022 Miscellaneous Notes* Telephone Encounter - Pam Venegas [...] and pasted from Results documented in this encounterUniversity Hospitals Geneva Medical Center11-03-2022 History of Present illness Narrative* [...] ordered. 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 Huston TBI (traumatic brain injury) 2 [...] AAA Aric Zapien MD documented in this encounterUniversity Hospitals Geneva Medical Center10-18-2022 Miscellaneous Notes* Telephone Encounter - [...] Thanks, Janusz Max PA-C documented in this encounterUniversity Hospitals Geneva Medical Center10-11-2022 History of Present illness Narrative* [...] don't fit properly- does fine without them. [place] anxious, stressed, angry, irritable, lonely, isolated, or [...] in the medical record. Dr. Huston neurology [place] cardiology Medical/Family history review Reviewed and updated [...] 82 Resp 12 Ht 184 cm (6' 0.44) Wt 101.2 kg (223 lb) SpO2 98% [...] Lymph 1.00 - 4.00 k/uL 1.87 1.93 [place]% % 9.0 7.2 Abs [place] <0.87 k/uL 0.78 0.54 Eosin% % 0.9 [...] nocturia 1-2, urination is not bothersome. Bowels perfect twice a day, formed, brown. Eats a lof of fiber- oatmeal. Joints: all good. Uses cane for balance. EXAM: BP 104/74 Pulse 82 Resp 12 Ht 184 cm (6' 0.44) Wt 101.2 kg (223 lb) SpO2 98% [...] OPHTHALMOLOGY Jaison Max PA-C documented in this encounterUniversity Hospitals Geneva Medical Center10-11-2022 History of Past illness Narrative* Problem Noted Date Diagnosed Date Resolved Date Encounter for hepatitis C sc reening test for low risk patient 03/09/2022 09/30/2022 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 status epilepticus 06/27/2020 03/25/2021 Hyperglycemia 03/23/2017 03/26/2021 documented as of this encounter (statuses as of 04/03/2023) [facility]10-10-2022 History of Present illness Narrative* [...] prior head trauma. Prior records requested from [facility] [employer]. Unclear if currentsymptoms described above of AMS might represent breakthrough seizures. [facility] source [...] have yet to receive requested records from [facility] [employer] and I have asked the patient to contact that practice to aid in retrieval of records. Pt states since last visit he had some strokes, 3 of them, for which he was treated in [place] and up in [place] or something like that. States passed out [...] nose bleeds or other nasal problems. 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 [...] which included preparing to see the patient, [id number] patient care, completing clinical documentation, obtaining and/or reviewing separately obtained history, performing a medically appropriate examination, counseling and educating the pat ient/family/caregiver, ordering medications, tests, or procedures, and communicating results to thepatient/family/caregiver. documented in this encounterUniversity Hospitals Geneva Medical Center10-07-2022 Miscellaneous Notes* Telephone Encounter - [...] and advise. Mecca Orozco documented in this encounterUniversity Hospitals Geneva Medical Center09-27-2022 History of Present illness Narrative* Joceline Waldron RN - 02/23/2022 2:29 PM EDT ACM COLEMAN RN Action/FYI: Chart review completed for Medication Adherence - Statin Use in Patients with Cardiovascular Disease at the request of [employer] ([facility]). No statin order noted. No statin exclusionary [...] with Cardiovascular Disease is based on 2013 [place] college of Cardiology/[employer] Heart Association (ACC/AHA) guidelines which recommends moderate tohigh-intensity statin therapy for prevention of ASCVD events. Patient Attributed To: QAE Payer: [facility] Reason for review or outreach: Medication Adherence Medication Adherence Review Details: Cholesterol, Hypertension, and Diabetes Summary / Findings: See Above Action Taken: Encounter routed to provider Contact made with patient: No, Chart review only. Signature: Joceline Waldron RN documented in this encounterUniversity Hospitals Geneva Medical Center04-28-2022 History of Present illness Narrative* [...] PAST MEDICAL HISTORY Diagnosis Date Atrial fibrillation ([facility]) Dr. 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 Huston TBI (traumatic brain injury) ([facility]) 2 times PAST SURGICAL HISTORY Procedure Laterality [...] prn. Medical Decision Making documented in this encounterUniversity Hospitals Geneva Medical Center10-14-2021 History of Present illness Narrative* [...] 12, 2021 2:38 PM documented in this encounterUniversity Hospitals Geneva Medical Center01-29-2021 History of Past illness Narrative* Problem Noted Date Resolved Date 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 status epilepticus 06/27/2020 03/25/2021 Hyperglycemia 03/23/2017 03/26/2021 documented as of this encounter (statuses as of 09/11/2021) [facility]01-29-[facility] History of Past illness Narrative* Problem Noted Date Resolved Date 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 status epilepticus 06/27/2020 03/25/2021 Hyperglycemia 03/23/2017 03/26/2021 documented as of this encounter (statuses as of 09/24/2021) [facility]01[facility] History of Past illness Narrative* Problem Noted Date Resolved Date 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 status epilepticus 06/27/2020 03/25/2021 Hyperglycemia 03/23/2017 03/26/2021 documented as of this encounter (statuses as of 03/05/2022) [facility] History of Past illness Narrative* Problem Noted Date Resolved Date 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 status epilepticus 06/27/2020 03/25/2021 Hyperglycemia 03/23/2017 03/26/2021 documented as of this encounter (statuses as of 03/08/2022) [address]29-2021 History of Past illness Narrative* Problem Noted Date Resolved Date 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 status epilepticus 06/27/2020 03/25/2021 Hyperglycemia 03/23/2017 03/26/2021 documented as of this encounter (statuses as of 03/10/2022) [address]29-2021 History of Past illness Narrative* Problem Noted Date Resolved Date 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 status epilepticus 06/27/2020 03/25/2021 Hyperglycemia 03/23/2017 03/26/2021 documented as of this encounter (statuses as of 03/16/2022) [address]29-2021 History of Past illness Narrative* Problem Noted Date Resolved Date 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 status epilepticus 06/27/2020 03/25/2021 Hyperglycemia 03/23/2017 03/26/2021 documented as of this encounter (statuses as of 03/26/2022) [address] History of Past illness Narrative* Problem Noted Date Resolved Date 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 status epilepticus 06/27/2020 03/25/2021 Hyperglycemia 03/23/2017 03/26/2021 documented as of this encounter (statuses as of 04/01/2022) [address]29-2021 History of Past illness Narrative* Problem Noted Date Resolved Date 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 status epilepticus 06/27/2020 03/25/2021 Hyperglycemia 03/23/2017 03/26/2021 documented as of this encounter (statuses as of 04/02/2022) [address]29-2021 History of Past illness Narrative* Problem Noted Date Resolved Date 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 status epilepticus 06/27/2020 03/25/2021 Hyperglycemia 03/23/2017 03/26/2021 documented as of this encounter (statuses as of 04/13/2022) [address]29-2021 History of Past illness Narrative* Problem Noted Date Resolved Date 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 status epilepticus 06/27/2020 03/25/2021 Hyperglycemia 03/23/2017 03/26/2021 documented as of this encounter (statuses as of 04/13/2022) [address] History of Past illness Narrative* Problem Noted Date Resolved Date 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 status epilepticus 06/27/2020 03/25/2021 Hyperglycemia 03/23/2017 03/26/2021 documented as of this encounter (statuses as of 04/14/2022) [address]29-2021 History of Past illness Narrative* Problem Noted Date Resolved Date 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 status epilepticus 06/27/2020 03/25/2021 Hyperglycemia 03/23/2017 03/26/2021 documented as of this encounter (statuses as of 04/27/2022) [facility] of Past illness Narrative* Problem Noted Date Resolved Date 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 status epilepticus 06/27/2020 03/25/2021 Hyperglycemia 03/23/2017 03/26/2021 documented as of this encounter (statuses as of 06/11/2022) [facility] History of Past illness Narrative* Problem Noted Date Resolved Date 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 status epilepticus 06/27/2020 03/25/2021 Hyperglycemia 03/23/2017 03/26/2021 documented as of this encounter (statuses as of 06/18/2022) [facility] note* Diagnosis Type 2 diabetes mellitus without complication, without long-term current use of insulin (HCC) documented [facility] this encounter [facility]* Diagnosis 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 (HCC)- Primary [...] specified viral diseases documented in this encounter [facility] note* Diagnosis Seizures (HCC) Other convulsions documented in this encounter [facility] noteNo assessment information availableWWilson Street Hospital Work Phone: Evaluation note* Diagnosis 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 status epilepticus, unspecified epilepsy type (HCC)- Primary Seizures (HCC) Other convulsions documented in this encounter [facility] note* Diagnosis Medicare annual wellness visit, initial- [...] lateral visual alexandra documented in this encounter [facility] CenterEvaluation [facility]* Diagnosis 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 (HCC)- Primary [...] unspecified cardiovascular conditions documented in this encounter [facility] CenterEvaluation [facility]* Diagnosis Nonintractable epilepsy without status epilepticus, unspecified epilepsy type (HCC)- Primary documented in this encounter [facility] CenterEvaluation [facility]* Diagnosis Left homonymous inferior quadrantanopia- Primary Myopia, bilateral Myopia Presbyopia Regular astigmatism of left eye Regular astigmatism Combined forms of age-related cataract of both eyes Other and combined forms of senile cataract Punctate keratitis, bilateral documented in this encounter [facility]Eval[facility]* Diagnosis Other symptoms and signs involving the nervous system- Primary [facility] Elevated serum creatinine- Primary Other nonspecific findings on examination of blood documented in this encounter [facility] CenterEvaluation [facility]* Diagnosis Seizures (HCC) Other convulsions documented in this encounter [facility]* Diagnosis Seizures (HCC)- Primary Other convulsions [...] Dermatophytosis of nail documented in this encounter [facility]* Diagnosis Sore throat- Primary Acute pharyngitis URI, acute Acute upper respiratory infections of unspecified site documented in this encounter [facility]* Diagnosis 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 status epilepticus, unspecified epilepsy type (HCC) Other symptoms and signs involving the nervous system documented in this encounter [facility]* Diagnosis Onset Date Resolution Status Atrial fibrillation with rapid ventricular response acute Essential hypertension chron ic Valvular heart disease chron ic [facility] Work Phone: Evaluation note* Diagnosis Pulmonary hypertension (HCC) Other chronic pulmonary heart diseases Edema, unspecified type documented in this encounter [facility]* Diagnosis Type 2 diabetes mellitus without complication, without long-term current use of insulin (HCC) documented in this encounter [facility]* Diagnosis 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, late effect of cerebrovascular disease Seizures (HCC) Other convulsions Mitral valve insufficiency, unspecified etiology Non-rheumatic tricuspid valve insufficiency Tricuspid valve disorders, specified as nonrheumatic Left atrial enlargement Cardiomegaly 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 (HCC) Atrial fibrillation residential current use of 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 Long-term (current) [...] disease of nail documented in this encounter [facility]* Diagnosis Acute right ankle pain Foot pain, right Pain in limb documented in this encounter [facility] [facility] Diagnosis Seizures (HCC) Other convulsions [facility] in this encounter [facility] Diagnosis Type 2 diabetes mellitus without complication, without long-term current use of insulin (HCC)- Primary Fall, initial encounter Screening for lipid disorders Acute low back pain without sciatica, unspecified back pain laterality Fall, initial encounter documented in this encounter [facility] Diagnosis Compression fracture of L1 vertebra, initial encounter (HCC)- Primary [facility] Diagnosis Type 2 diabetes mellitus without complication, without long-term current use of insulin (HCC)- Primary documented in this encounter [facility] for referral (narrative)* Outpatient Procedure (Routine) - Pending Review Specialty Diagnoses / Procedures Referred By Jacqueline cummings Referred To Contact [facility] Diagnoses 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 status epilepticus, unspecified epilepsy type (HCC) Procedures EPIL EEG ROUTINE ELECTROENCEPHALOGRAM REC COMA/SLEEP ONLY Aric Huston Jr., MD [address] [facility] [address] [place] [address] Neurological [place] [address] [place] [address] Referral ID Status Reason Start Date Expiration Date Visits Requested Visits Authorized [id number] Pending Review Auto-Generat ed Referral 2 03/08/2023 1 1 * MRI/CT (Routine) - Authorized Specialty Diagnoses / Procedures Referred By Jacqueline cummings Referred To Contact MR IMAGING Diagnoses 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 status epilepticus, unspecified epilepsy type (HCC) Procedures MRI BRAIN WO IVCON MRI BRAIN BRAIN STEM W/O CONTRAST MATERIAL Aric Huston Jr., MD [address] [facility] [address] [place] [address] Mr Imaging Referral ID Status Reason Start Date Expiration Date Visits Requested Visits Authorized [id number] Authorized Auto-Generat ed Referral 2 04/07/2023 1 1 [facility] for referral (narrative)* Outpatient Procedure (Routine) - Pending Review Specialty Diagnoses / Procedures Referred [facility] Referred To Contact [facility] Diagnoses 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 (HCC) Non-rheumatic tricuspid valve insufficiency Mitral valve insufficiency, unspecified etiology Primary pulmonary HTN (HCC) Enlarged thoracic aorta (HCC) Procedures ECHO ECHO TTHRC R-T 2D W/WOM-MODE COMPL SPEC&COLR D Jaison Max PA-C [address] [place] [address] [facility] [place] [address] [place] [address] Referral ID Status Reason Start Date Expiration Date Visits Requested Visits Authorized [id number] Pending Review Auto-Generat ed Referral 2 03/10/2023 1 1 * Consult, Test, Treat (Routine) - Pending Review Specialty Diagnoses / Procedures Referred By Contac t Referred To Contact Dermatology Diagnoses Multiple atypical skin moles Procedures CONSULT TO DERMATOLOGY OFFICE/OUTPATIENT [facility] 60-74 MINUTES Jaison Max PA-C [address] [place] [address] Referral ID Status Reason Start Date Expiration Date Visits Requested Visits Authorized [id number] Pending Review PCP Requested Referral 2 03/09/2023 1 1 * Consult, Test, Treat (Routine) - Authorized Specialty Diagnoses / Procedures Referred By Contalphonse t Referred To Contact Ophthalmology Diagnoses Presbyopia of both eyes Loss of lateral visual alexandra Procedures CONSULT TO OPHTHALMOLOGY OFFICE/OUTPATIENT [facility] 60-74 MINUTES Jaison Max PA-C [address] [place] [address] Referral ID Status Reason Start Date Expiration Date Visits Requested Visits Authorized [id number] Authorized PCP Requested Referral 2 03/09/2023 1 1 [facility] for referral (narrative)* Diagnostic Procedure Only (Routine) - Authorized Specialty Diagnoses / Procedures Referred By Contac t Referred To Contact US IMAGING Diagnoses Screening for AAA (abdominal aortic aneurysm) Procedures US SCREENING FOR AAA (2017) US ABDOMINAL AORTA REAL TIME SCREEN STUDY AAA Aric Zapien MD [address] [place] [address] Us Imaging Referral ID Status Reason Start Date Expiration Date Visits Requested Visits Authorized [id number] Authorized Auto-Generat ed Referral 04/01/2022 05/01/2023 1 1 * Consult, Test, Treat (Routine) - Pending Review Specialty Diagnoses / Procedures Referred By Contac t Referred To Contact Cardiology Diagnoses 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 (HCC) Enlarged thoracic aorta (HCC) Procedures CONSULT TO CARDIOLOGY OFFICE/OUTPATIENT [facility] 60-74 MINUTES Aric Zapien MD [address] [place] [address] Referral ID Status Reason Start Date Expiration Date Visits Requested Visits Authorized [id number] Pending Review PCP Requested Referral 04/01/2022 04/01/2023 1 1 [facility] for referral (narrative)* Outpatient Procedure (Routine) - Authorized Specialty Diagnoses / Procedures Referred By Contac t Referred To Contact [facility] Diagnoses Peripheral vascular disease (HCC) Procedures PVR LEG [facility] NON-INVASIVE PHYSIOLOGIC STUDY EXTREMITY 3 [place] [address] [place] [address] [id number] [facility] [address] [place] [address] Referral ID Status Reason Start Date Expiration Date Visits Requested Visits Authorized [id number] Authorized Auto-Generat ed Referral 09/30/2022 09/30/2023 1 1 * Consult, Test, Treat (Routine) - Authorized Specialty Diagnoses / Procedures Referred By Contac t Referred To Contact Podiatry Diagnoses Type 2 diabetes mellitus without complication, without long-term current use of insulin (HCC) Pain due to onychomycosis of nail Procedures CONSULT TO PODIATRY OFFICE/OUTPATIENT [facility] 60-[place] [address] [place] [id number] Referral ID Status Reason Start Date Expiration Date Visits Requested Visits Authorized [id number] Authorized PCP Requested Referral 09/30/2022 09/30/2023 1 1 * Diagnostic Procedure Only (Routine) - Authorized Specialty Diagnoses / Procedures [facility] Referred To Contact US IMAGING Diagnoses Screening for AAA (abdominal aortic aneurysm) Procedures US SCREENING FOR AAA (2017) US ABDOMINAL AORTA REAL TIME SCREEN STUDY AAA Aric Zapien MD [address] [place] [address] Us Imaging Referral ID Status Reason Start Date Expiration Date Visits Requested Visits Authorized [id number] Authorized Auto-Generat ed Referral 09/30/2022 10/30/2023 1 1 [facility] for referral (narrative)* Diagnostic Procedure Only (Urgent) - Closed Specialty Diagnoses / Procedures Referred [facility] Referred To Contact XR IMAGING Diagnoses Foot pain, right Procedures XR FOOT GENERAL 3V AP/LAT/OBL RT X-RAY FOOT MINIMUM 3 VIEWS Quang Bowman MD [address] [place] [address] [place] [address] Referral ID Status Reason Start Date Expiration Date V isits Requested Visits Authorized [id number] Closed Auto-Generate d Referral 03/12/2021 04/11/2022 1 1 * Diagnostic Procedure Only (Urgent) - Closed Specialty Diagnoses / Procedures Referred [facility] Referred To Contact XR IMAGING Diagnoses Acute right ankle pain Procedures XR ANKLE GENERAL 3V AP/LAT/OBL RT X-RAY ANKLE MINIMUM 3 VIEWS Quang Bowman MD [address] [place] [address] [place] [address] Referral ID Status Reason Start Date Expiration Date V isits Requested Visits Authorized [id number] Closed Auto-Generate d Referral 03/12/2021 05/29/2021 1 1 [facility] for referral (narrative)* Diagnostic Procedure Only (Urgent) - Closed Specialty Diagnoses / Procedures Referred By Contac t Referred To Contact XR IMAGING Diagnoses Chronic low back pain without sciatica, unspecified back pain laterality Fall, initial encounter Procedures XR LUMBAR GENERAL 3V AP/LAT/L5-S1 RADEX SPINE LUMBOSACRAL 2/3 VIEWS Florinda Stevenson APRN.CNP [address] [place] [address] [place] [address] Referral ID Status Reason Start Date Expiration Date V isits Requested Visits Authorized [id number] Closed Auto-Generate d Referral 06/22/2024 07/22/2025 1 1 [facility])No reason for referral information availableWWilson [facility] Work Phone: Reason for visit Narrative* Diagnostic Procedure Only (Urgent) - Closed Specialty Diagnoses / Procedures Referred By Contac t Referred To Contact XR IMAGING Diagnoses Acute right ankle pain Procedures XR ANKLE GENERAL 3V AP/LAT/OBL RT X-RAY ANKLE MINIMUM 3 VIEWS Quang Bowman MD [address] [place] [address] [place] [address] Referral ID Status Reason Start Date Expiration Date V isits Requested Visits Authorized [id number] Closed Auto-Generate d Referral 03/12/2021 05/29/2021 1 1 [facility] Reason for Referral Specialty Diagnoses / Procedures Referred By Contac t Referred To Contact Ophthalmology Diagnoses Type 2 diabetes mellitus without complication, without long-term current use of insulin (HCC) Procedures CONSULT TO OPHTHALMOLOGY OFFICE/OUTPATIENT [facility] 60-74 MINUTES Aric Zapien MD [address] [place] [address] Referral ID Status Reason Start Date Expiration Date Visits Requested Visits Authorized [id number] Authorized PCP Requested Referral 09/24/2021 09/24/2022 1 1 Specialty Diagnoses / Procedures Referred By Contac t Referred To Contact Neurology Diagnoses Seizures (HCC) Procedures CONSULT TO NEUROLOGY OFFICE/OUTPATIENT [facility] 60-74 MINUTES Aric Zapien MD [address] [place] [address] Referral ID Status Reason Start Date Expiration Date Visits Requested Visits Authorized [id number] Pending Review PCP Requested Referral 09/24/2021 09/24/2022 1 1 Specialty Diagnoses / Procedures Referred By Contac t Referred To Contact Cardiology Diagnoses 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 (HCC) Primary pulmonary HTN (HCC) Enlarged thoracic aorta (HCC) Mitral valve insufficiency, unspecified etiology Non-rheumatic tricuspid valve insufficiency Procedures CONSULT TO CARDIOLOGY Aric Zapien MD [address] [place] [id number] Referral ID Status Reason Start Date Expiration Date Visits Requested Visits Authorized [id number] Ref Not Required PCP Requested Referral 09/24/2021 09/24/2022 1 1 Specialty Diagnoses / Procedures Referred By Contac t Referred To Contact MR IMAGING Diagnoses Other symptoms and signs involving the nervous system Procedures MRA CAROTID WO IVCON MRA, NECK; W/O CONTRAST Aric Huston Jr., MD [address] [facility] [address] [place] [phone] Mr Imaging Referral ID Status Reason Start Date Expiration Date Visits Requested Visits Authorized [id number] Pending Review Auto-Generat ed Referral 2 05/12/2023 1 1 Specialty Diagnoses / Procedures Referred By Contac t Referred To Contact MR IMAGING Diagnoses Other symptoms and signs involving the nervous system Procedures MRA BRAIN WO IVCON MRA, HEAD W/O CONTRAST Aric Huston Jr., MD [address] [facility] [address] [place] [phone] Mr Imaging Referral ID Status Reason Start Date Expiration Date Visits Requested Visits Authorized [id number] Pending Review Auto-Generat ed Referral 2 05/12/2023 1 1 Specialty Diagnoses / Procedures Referred By Contac t Referred To Contact MR IMAGING Diagnoses Other symptoms and signs involving the nervous system Procedures MRA CAROTID WO IVCON MRA, NECK; W/O CONTRAST Aric Huston Jr., MD [address] [place] [address] [place] [address] Referral ID Status Reason Start Date Expiration Date V isits Requested Visits Authorized [id number] Closed Auto-Generate d Referral 04/12/2022 05/12/2023 1 1 Specialty Diagnoses / Procedures Referred By Contac t Referred To Contact MR IMAGING Diagnoses Other symptoms and signs involving the nervous system Procedures MRA BRAIN WO IVCON MRA, HEAD W/O CONTRAST Aric Huston Jr., MD [address] [facility] [address] [place] [address] [place] [address] Referral ID Status Reason Start Date Expiration Date V isits Requested Visits Authorized [id number] Closed Auto-Generate d Referral 04/12/2022 05/12/2023 1 1 Specialty Diagnoses / Procedures Referred By Contac t Referred To Contact MR IMAGING Diagnoses 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 status epilepticus, unspecified epilepsy type (HCC) Procedures MRI BRAIN WO IVCON MRI BRAIN BRAIN STEM W/O CONTRAST MATERIAL Aric Huston Jr., MD [address] [facility] [address] [place] [address] [place] [address] Referral ID Status Reason Start Date Expiration Date V isits Requested Visits Authorized [id number] Closed Auto-Generate d Referral 03/08/2022 04/07/2023 1 1 Specialty Diagnoses / Procedures Referred By Contac t Referred To Contact Podiatry Diagnoses Incurvated nail Procedures CONSULT TO PODIATRY OFFICE/OUTPATIENT [facility] 60 MINUTES Jaison Max PA-C [address] [place] [address] Referral ID Status Reason Start Date Expiration Date Visits Requested Visits Authorized [id number] Authorized PCP Requested Referral 11/22/2023 11/21/2024 1 1 Specialty Diagnoses / Procedures Referred By Contac t Referred To Contact US IMAGING Diagnoses Screening for abdominal aortic aneurysm Procedures US SCREENING FOR AAA (2017) US ABDOMINAL AORTA REAL TIME SCREEN STUDY AAA Jaison Max PA-C [address] [place] [address] [place] [address] Referral ID Status Reason Start Date Expiration Date Visits Requested Visits Authorized [id number] Pending Review Auto-Generat ed Referral 11/22/2023 12/21/2024 1 1 Specialty Diagnoses / Procedures Referred By Jacqueline t Referred To Contact Diagnoses Compression fracture of L1 vertebra, initial encounter (HCC) Procedures [facility] Florinda Stevenson APRN.STABLE CLEANER [address] [facility] [address] Referral ID Status Reason Start Date Expiration Date Visits Requested Visits Authorized [id number] New Request PCP Requested Referral 06/22/2024 09/20/2024 [...] LAB WORK August 27, 2024 4 :00am [id number] September 26, 2024 5:1 6am Family History [...] No March 06 2 11:14am Power of Cultural Anthropology Professor No March 06 022 11:14am Advance Directive Response Recorded Date/ Time Advance Directives No June 2:48pm Living Will No March 06 2 10:14am Power of Cultural Anthropology Professor No March 06 022 10:14am Advance Directive Response Recorded Date/ Time Living Will No July 09 12:44pm Do you have a Healthcare Power of Cultural Anthropology Professor? No July 09, 2024 12:44pm Advance Directives [...] or prosecute any alcohol or drug abuse patient.[facility] the event this information is protected by the Federal Confidentiality of Alcohol and Drug Abuse Patient Records regulations: The Federal rules restrict any use of the information to criminally investigate or prosecute any alcohol or drug abuse patient.[facility] Center[facility] the event this information is protected by the Federal Confidentiality of Alcohol and Drug Abuse Patient Records regulations: The Federal rules restrict any use of the information to criminally investigate or prosecute any alcohol or drug abuse patient.[facility] CenterIn the event this information is protected by the Federal Confidentiality of Alcohol and Drug Abuse Patient Records regulations: The Federal rules restrict any use of the information to criminally investigate or prosecute any alcohol or drug abuse patient.[facility] CenterIn the event this information is protected by the Federal Confidentiality of Alcohol and Drug Abuse Patient Records regulations: The Federal rules restrict any use of the information to criminally investigate or prosecute any alcohol or drug abuse patient.[facility] CenterIn the event this information is protected by the Federal Confidentiality of Alcohol and Drug Abuse Patient Records regulations: The Federal rules restrict any use of the information to criminally investigate or prosecute any alcohol or drug abuse patient.[facility] CenterIn the event this information is protected by the Federal Confidentiality of Alcohol and Drug Abuse Patient Records regulations: The Federal rules restrict any use of the information to criminally investigate or prosecute any alcohol or drug abuse patient.[facility] CenterIn the event this information is protected by the Federal Confidentiality of Alcohol and Drug Abuse Patient Records regulations: The Federal rules restrict any use of the information to criminally investigate or prosecute any alcohol or drug abuse patient.[facility] CenterIn the event this information is protected by the Federal Confidentiality of Alcohol and Drug Abuse Patient Records regulations: The Federal rules restrict any use of the information to criminally investigate or prosecute any alcohol or drug abuse patient.[facility] CenterIn the event this information is protected by the Federal Confidentiality of Alcohol and Drug Abuse Patient Records regulations: The Federal rules restrict any use of the information to criminally investigate or prosecute any alcohol or drug abuse patient.[facility] CenterIn the event this information is protected by the Federal Confidentiality of Alcohol and Drug Abuse Patient Records regulations: The Federal rules restrict any use of the information to criminally investigate or prosecute any alcohol or drug abuse patient.[facility] CenterIn the event this information is protected by the Federal Confidentiality of Alcohol and Drug Abuse Patient Records regulations: The Federal rules restrict any use of the information to criminally investigate or prosecute any alcohol or drug abuse patient.[facility] the event this information is protected by the Federal Confidentiality of Alcohol and Drug Abuse Patient Records regulations: The Federal rules restrict any use of the information to criminally investigate or prosecute any alcohol or drug abuse patient.[facility] CenterIn the event this information is protected by the Federal Confidentiality of Alcohol and Drug Abuse Patient Records regulations: The Federal rules restrict any use of the information to criminally investigate or prosecute any alcohol or drug abuse patient.[facility] CenterIn the event this information is protected by the Federal Confidentiality of Alcohol and Drug Abuse Patient Records regulations: The Federal rules restrict any use of the information to criminally investigate or prosecute any alcohol or drug abuse patient.[facility] CenterIn the event this information is protected by the Federal Confidentiality of Alcohol and Drug Abuse Patient Records regulations: The Federal rules restrict any use of the information to criminally investigate or prosecute any alcohol or drug abuse patient.[facility] CenterIn the event this information is protected by the Federal Confidentiality of Alcohol and Drug Abuse Patient Records regulations: The Federal rules restrict any use of the information to criminally investigate or prosecute any alcohol or drug abuse patient.[facility] CenterIn the event this information is protected by the Federal Confidentiality of Alcohol and Drug Abuse Patient Records regulations: The Federal rules restrict any use of the information to criminally investigate or prosecute any alcohol or drug abuse patient.[facility] CenterIn the event this information is protected by the Federal Confidentiality of Alcohol and Drug Abuse Patient Records regulations: The Federal rules restrict any use of the information to criminally investigate or prosecute any alcohol or drug abuse patient.[facility] CenterIn the event this information is protected by the Federal Confidentiality of Alcohol and Drug Abuse Patient Records regulations: The Federal rules restrict any use of the information to criminally investigate or prosecute any alcohol or drug abuse patient.[facility] CenterIn the event this information is protected by the Federal Confidentiality of Alcohol and Drug Abuse Patient Records regulations: The Federal rules restrict any use of the information to criminally investigate or prosecute any alcohol or drug abuse patient.[facility] CenterIn the event this information is protected by the Federal Confidentiality of Alcohol and Drug Abuse Patient Records regulations: The Federal rules restrict any use of the information to criminally investigate or prosecute any alcohol or drug abuse patient.[facility] CenterIn the event this information is protected by the Federal Confidentiality of Alcohol and Drug Abuse Patient Records regulations: The Federal rules restrict any use of the information to criminally investigate or prosecute any alcohol or drug abuse patient.[facility] CenterIn the event this information is protected by the Federal Confidentiality of Alcohol and Drug Abuse Patient Records regulations: The Federal rules restrict any use of the information to criminally investigate or prosecute any alcohol or drug abuse patient.[facility] CenterIn the event this information is protected by the Federal Confidentiality of Alcohol and Drug Abuse Patient Records regulations: The Federal rules restrict any use of the information to criminally investigate or prosecute any alcohol or drug abuse patient.[facility] CenterIn the event this information is protected by the Federal Confidentiality of Alcohol and Drug Abuse Patient Records regulations: The Federal rules restrict any use of the information to criminally investigate or prosecute any alcohol or drug abuse patient.[facility] CenterIn the event this information is protected by the Federal Confidentiality of Alcohol and Drug Abuse Patient Records regulations: The Federal rules restrict any use of the information to criminally investigate or prosecute any alcohol or drug abuse patient.[facility] CenterIn the event this information is protected by the Federal Confidentiality of Alcohol and Drug Abuse Patient Records regulations: The Federal rules restrict any use of the information to criminally investigate or prosecute any alcohol or drug abuse patient.[facility] CenterIn the event this information is protected by the Federal Confidentiality of Alcohol and Drug Abuse Patient Records regulations: The Federal rules restrict any use of the information to criminally investigate or prosecute any alcohol or drug abuse patient.[facility] CenterIn the event this information is protected by the Federal Confidentiality of Alcohol and Drug Abuse Patient Records regulations: The Federal rules restrict any use of the information to criminally investigate or prosecute any alcohol or drug abuse patient.[facility] CenterIn the event this information is protected by the Federal Confidentiality of Alcohol and Drug Abuse Patient Records regulations: The Federal rules restrict any use of the information to criminally investigate or prosecute any alcohol or drug abuse patient.[facility] CenterIn the event this information is protected by the Federal Confidentiality of Alcohol and Drug Abuse Patient Records regulations: The Federal rules restrict any use of the information to criminally investigate or prosecute any alcohol or drug abuse patient.[facility] CenterIn the event this information is protected by the Federal Confidentiality of Alcohol and Drug Abuse Patient Records regulations: The Federal rules restrict any use of the information to criminally investigate or prosecute any alcohol or drug abuse patient.[facility] [facility] the event this information is protected by the Federal Confidentiality of Alcohol and Drug Abuse Patient Records regulations: The Federal rules restrict any use of the information to criminally investigate or prosecute any alcohol or drug abuse patient.[facility] the event this information is protected by the Federal Confidentiality of Alcohol and Drug Abuse Patient Records regulations: The Federal rules restrict any use of the information to criminally investigate or prosecute any alcohol or drug abuse patient.[facility] Center[facility] the event this information is protected by the Federal Confidentiality of Alcohol and Drug Abuse Patient Records regulations: The Federal rules restrict any use of the information to criminally investigate or prosecute any alcohol or drug abuse patient.[facility] Care Teams (unrecognized sec tion and content) Heel Scourer Relationship Specialty Start Date End Date Aric Zapien MD [address] [place] [address] PCP - General Family Practice 07/23/15 Heel Scourer Relationship Specialty Start Date End Date Aric Zapien MD [facility] [place] [address] PCP - General Family Practice 07/23/15 Heel Scourer Relationship Specialty Start Date End Date Aric Zapien MD [facility] [place] [address] PCP - General Family Medicine 07/23/15 Heel Scourer Relationship Specialty Start Date End Date Aric Zapien MD [address] [place] [address] PCP - General Family Medicine 07/23/15 Heel Scourer Relationship Specialty Start Date End Date Aric Zapien MD [facility] [place] [address] PCP - General Family Medicine 07/23/15 Heel Scourer Relationship Specialty Start Date End Date Aric Zapien MD [address] [place] [address] PCP - General Family Medicine 07/23/15 Heel Scourer Relationship Specialty Start Date End Date Aric Zapien MD [address] [place] [address] PCP - General Family Medicine 07/23/15 Heel Scourer Relationship Specialty Start Date End Date Aric Zapien MD [address] [place] [address] PCP - General Family Medicine 07/23/15 Heel Scourer Relationship Specialty Start Date End Date Aric Zapien MD [address] [place] [address] PCP - General Family Medicine 07/23/15 Heel Scourer Relationship Specialty Start Date End Date Aric Zapien MD [address] [place] [address] PCP - General Family Medicine 07/23/15 Heel Scourer Relationship Specialty Start Date End Date Aric Zapien MD [address] [place] [address] PCP - General Family Medicine 07/23/15 Heel Scourer Relationship Specialty Start Date End Date Aric Zapien MD [address] [place] [address] PCP - General Family Medicine 07/23/15 Heel Scourer Relationship Specialty Start Date End Date Aric Zapien MD [address] [place] [address] PCP - General Family Medicine 07/23/15 Heel Scourer Relationship Specialty Start Date End Date Aric Zapien MD [address] [place] [address] PCP - General Family Medicine 07/23/15 Heel Scourer Relationship Specialty Start Date End Date Aric Zapien MD [address] [place] [address] PCP - General Family Medicine 07/23/15 Heel Scourer Relationship Specialty Start Date End Date Aric Zapien MD [address] [facility] [place] [address] PCP - General Family Medicine 07/23/15 Heel Scourer Relationship Specialty Start Date End Date Aric Zapien MD [address] [place] [address] PCP - General Family Medicine 07/23/15 Heel Scourer Relationship Specialty Start Date End Date Aric Zapien MD [address] [place], [place] [address] PCP - General Family Medicine 07/23/15 Team Status: Active Member Role Status Dates Dr. Aric Zapien MD Family Provider Active Dr. Aric Zapien MD Primary Care Provider Active Team Status: Inactive Member Role Status Dates Dr. Aric Zapien MD Primary Care Provider, Referring Provider Active Rakel Hodgson ADVERTISING INTERNS[employer]IP, ADVERTISING INTERNS[employer]-C Attending Provider Active Team Status: Inactive Member Role Status Dates Dr. Aric Zapien MD Primary Care Provider Active Rakel Hodgson [employer], ADVERTISING [employer]-C Attending Provider, Referring P roberto Active Heel Scourer Relationship Specialty Start Date End Date Aric Zapien MD [address] [place] [address] PCP - General Family Medicine 07/23/15 Heel Scourer Relationship Specialty Start Date End Date Aric Zapien MD [address] [place] [address] PCP - General Family Medicine 07/23/15 Heel Scourer Relationship Specialty Start Date End Date Aric Zapien MD [address] [place] [address] PCP - General Family Medicine 07/23/15 Heel Scourer Relationship Specialty Start Date End Date Aric Zapien MD [address] [place] [address] PCP - General Family Medicine 07/23/15 Heel Scourer Relationship Specialty Start Date End Date Aric Zapien MD [address] [place] [address] PCP - General Family Medicine 07/23/15 Heel Scourer Relationship Specialty Start Date End Date Aric Zapien MD [address] [place] [address] PCP - General Family Medicine 07/23/15 Heel Scourer Relationship Specialty Start Date End Date Aric Zapien MD [address] [place] [address] PCP - General Family Medicine 07/23/15 Heel Scourer Relationship Specialty Start Date End Date Aric Zapien MD [address] [place] [address] PCP - General Family Medicine 07/23/15 Meenakshi Galaviz APRN.STABLE CLEANER [address] [place] [address] Transmission Worker Family Medicine 05/07/24 Heel Scourer Relationship Specialty Start Date End Date Aric Zapien MD [address] [place] [address] PCP - General Family Medicine 07/23/15 Meenakshi Galaviz APRN.STABLE CLEANER [address] [place] [address] Transmission Worker Family Medicine 05/07/24 Florinda Stevenson APRN.STABLE CLEANER [address] [facility] [place] [address] Transmission Worker Family Medicine 05/07/24 Heel Scourer Relationship Specialty Start Date End Date Aric Zapien MD [address] [place] [address] PCP - General Family Medicine 07/23/15 Meenakshi Galaviz APRN.STABLE CLEANER [address] [place] [address] Transmission Worker Family Medicine 05/07/24 Florinda Stevenson APRN.STABLE CLEANER [address] [place] [address] Transmission Worker Family Medicine 05/07/24 Heel Scourer Relationship Specialty Start Date End Date Aric Zapien MD [address] [facility] [place] [address] PCP - General Family Medicine 07/23/15 Meenakshi Galaviz APRN.STABLE CLEANER [address] [facility] [place] [address] Transmission Worker Family Medicine 05/07/24 Florinda Stevenson APRN.STABLE CLEANER [address] [facility] [address] Transmission Worker Family Medicine 05/07/24 Heel Scourer Relationship Specialty Start Date End Date Aric Zapien MD [address] [place] [address] PCP - General Family Medicine 07/23/15 Meenakshi Galaviz LOGGING SPECIALIST.STABLE CLEANER [address] [place] [address] Transmission Worker [facility] 05/07/24 Florinda Stevenson LOGGING SPECIALIST.STABLE CLEANER [address] [place] [address] [facility] Heel Scourer Relationship Specialty Start Date End Date Aric Zapien MD [address] [place] [address] PCP - General Family Medicine 07/23/15 Meenakshi Galaviz LOGGING SPECIALIST.STABLE CLEANER [address] [place] [address] [facility]24 Florinda Stevenson LOGGING SPECIALIST.STABLE CLEANER [address] [place] [address] [facility] 05/07/24 Heel Scourer Relationship Specialty Start Date End Date Aric Zapien MD [address] [place] [address] PCP - General Family Medicine 07/23/15 Meenakshi Galaviz LOGGING SPECIALIST.STABLE CLEANER [address] [place] [address] [facility] 05/07/24 Florinda Stevenson LOGGING SPECIALIST.STABLE CLEANER [address] [place] [address] [facility] 05/07/24 Team Status: Active Member Role Status [...] September 26, 2024 End: September 26, 2024 Heel Scourer Relationship Specialty Start Date End Date Aric Zapien MD [address] [place], [place] [address] PCP - General Family Medicine 07/23/15 Meenakshi Galaviz, JUDSON.STABLE CLEANER [address] [place], [place] [id number] Transmission Worker Family Medicine 05/07/24 Florinda Stevenson LOGGING SPECIALIST.STABLE CLEANER [address] [place], [place] [address] Transmission Worker Family Medicine 05/07/24 Reason for Visit (unrecogniz ed section and content) Reason Comments Diabetes Specialty Diagnoses / Procedures Referred By Contac t Referred To Contact Family Practice / FAMILY MEDICINE Diagnoses 6 month follow up Procedures 4C EST Aric Zapien MD [address] [place] [address] Aric Zapien MD [address] [place] [address] Referral ID Status Reason Start Date Expiration Date V isits Requested Visits Authorized [id number] Closed Financial Clearance Required - OON Payor Patient Cleared INN/SMCP Payor Auth Obtained 09/24/2021 05/29/2022 1 1 Reason Onset Date Comments Refill Request 03/04/2022 Reason Comments Follow Up Specialty Diagnoses / Procedures Referred By Contac t Referred To Contact Neurology / FAMILY MEDICINE Diagnoses Seizures (HCC) Procedures CONSULT TO NEUROLOGY OFFICE/OUTPATIENT [facility] 60-74 MINUTES Aric Zapien MD [address] [place] [address] [facility] [address] [place] [address] Referral ID Status Reason Start Date Expiration Date V isits Requested Visits Authorized [id number] Closed PCP Requested Referral 12/25/2021 05/29/2022 1 1 Reason Comments Medicare Wellness Exam Reason Comments Orders Reason Onset Date Comments ACM COLEMAN RN 02/23/2022 SPC/SUPD rev. 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 Procedures CONSULT TO OPHTHALMOLOGY OFFICE/OUTPATIENT [facility] 60-74 MINUTES Jaison Max PA-C [address] [place] [address] Referral ID Status Reason Start Date Expiration Date V isits Requested Visits Authorized [id number] Closed PCP Requested Referral 03/09/2022 03/09/2023 1 [...] W/O CONTRAST MATERIAL Aric Huston Jr., MD [address] [facility] [address] [place] [address] [place] [address] Referral ID Status Reason Start Date Expiration Date V isits Requested Visits Authorized [id number] Closed Auto-Generate d Referral 03/08/2022 04/07/2023 1 1 Reason Onset Date Comments Refill Request 11/08/2023 Reason Comments Follow Up 6 month Reason Onset Date Comments Population Health Navigation Outreach 12/15/2023 [facility] Reason Onset Date Comments Population Health Navigation Outreach 03/07/2024 [place] [facility] [place] [facility] Reason Onset Date Comments Population Health [...] content) DATE CREATED AUTHOR 06/27/2024 [facility] DATE CREATED AUTHOR AUTHOR'S ORGANIZ ATION 10/27/2024 [facility] DATE CREATED AUTHOR AUTHOR'S ORGANIZ ATION 01/14/2025 [facility] FOR RECORDS PERTAINING TO PATIENTS WHO [...] BE BASED ON THE PRIMARY CLINICAL RECORDS. [facility] [employer] [facility]. provides no warranty or guarantee of the accuracy or completeness of information in this document.
[2025-01-21 08:45] LABS: Anion Gap 12 (5-15); BUN 26 mg/dL (4-19); BUN/Creat Ratio 21.3 RATIO (10-20); Calcium,Total 9.1 mg/dL (7.6-11.0); Carbon Dioxide 24.5 mmol/L (21.0-32.0); Chloride 106 mmol/L (98-108); Glucose 94 mg/dL (70-99); Potassium 4.0 mmol/L (3.3-5.1)
== END ==
LOC: OLS.SWAL 04:00
PROVIDERS: PCP Family Medicine; Referring Provider Internal Medicine; Visit Provider Internal Medicine
DX: J44.9 Chronic obstructive pulmonary disease, unspecified (principal); E11.9 Type 2 diabetes mellitus without complications
CPT/HCPCS: 36415; 80048

== ENCOUNTER → 2025-01-31 05:00 | Outpatient (REF) | payer MEDICARE, MEDICAID, SELFPAY ==
--- OUTSIDE RECORDS SUMMARY | 2025-01-31 03:44 | XMS RPT_ITS | CCD ---
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 Aric Zapien Primary Care Provider Dr. Aric Zapien Referring Provider Gokul CULTURIST, AYLIN [place] Attending Provider Aric Zapien MD Primary Care Provider Haagen CIRCUS ARTIST.HOME HEALTH CNA, Meenakshi Unavailable Suppan CIRCUS ARTIST.HOME HEALTH CNA, Florinda A Unavailable Suppan CIRCUS ARTIST.HOME HEALTH CNA, Florinda A Unavailable [phone] Dr. Aric Zapien MD Primary Care Provider [...] STEVENSON Attending Unavailable RENUKA MAX Attending Unavailable [facility] ARIC Primary Care Unavailable Gudla OLS, Jigna Attending Unavailable [facility] Primary Care Unavailable Gudla OLS, Jigna Referring Unavailable Gudla OLS, Jigna Attending Unavailable [facility] Primary Care Unavailable Pendergrass, [facility] Primary Care Unavailable Gudla OLS, Jigna Attending Unavailable [facility] Primary Care Unavailable Gudla OLS, Jigna Attending Unavailable Jopperi, Yann Attending Unavailable Pendergrass, [facility] Primary Care Unavailable Jopperi, Yann Admitting Unavailable Jopperi, Yann Attending Unavailable Jobrett, Yann Consulting Unavailable Pendergrass, Aric Primary Care Unavailable [facility] Irby [facility] Priscilla Reynaga Referring Unavailable Yann Miller Attending Unavailable [facility] Primary Care Unavailable Gudla OLS, Jigna Attending Unavailable [facility] Primary Care Unavailable Gudla OLS, Jigna Attending Unavailable [facility] Primary Care Unavailable Gudla OLS, Jigna Attending Unavailable [facility] Primary Care Unavailable Gudla OLS, Jigna Referring Unavailable Gudla OLS, Jigna Attending Unavailable [facility] Primary Care Unavailable Gudla OLS, Jigna Referring Unavailable Gudla OLS, Jigna Attending Unavailable [facility] Primary Care Unavailable Jopperi, Yann Attending Unavailable Jopperi, Yann Admitting Unavailable [facility] Primary Care Unavailable Pendergrass, [facility] Primary Care Unavailable Gudla OLS, Jigna Attending Unavailable Gudla OLS, Jigna Attending Unavailable [facility] Primary Care Unavailable Allergies Allergy Classification Reported Allergen(s) Allergy Type Date of Onset Reaction(s) Facility (20 sources) Contrast media; Translations: [DYE] Drug Intolerance 03-02-20 16 Other: See Comments [facility] Work Phone: (4 sources) Triiodobenzoic Acids Allergy to substance 03-06-20 Anaphylaxis [facility] Comment on above: used for heart cath (1 source) Iodinated Contrast Media Drug allergy (disorder) 07-09-19 [facility] Repository Medications Current Medications Medication Drug [...] without long-term current use of insulin ([facility]) Glucose Meter of Choice - Kit - [...] Discontinued 40 mg PO TWICE A DAY August 24, 2021 12:59pm November 17, 2022 [...] without long-term current use of insulin ([facility]) Take 1 tablet by mouth once daily. [...] tablet Discontinued 80 mg PO AT BEDTIME 90 June 26, 2018 3:42pm July 03, 2018 [...] on above: Take 1 capsule by mo [facility] once daily. folic acid/multivit-min/ lutein (CENTRUM [...] Comment on above: Take 1 tablet by [facility] once daily. guaifenesin/dextrometh orphan (DEXTROMETHORPHAN-GUAI FENESIN [...] 15, 2013 1:00am September 17, 2014 9:30am Ua-Ieg-Yyeth-K1-Lycop en-Lutein (Centrum Silver Men) 300-600-300 mcg tablet (3 sources) Start: 11-15-2022 End: 11-17-2022 Op-Rfz-Luxhi-G6-Ufowwnn-Hkxr in (Centrum Silver Men) 300-600-300 mcg tablet Discontinued 1 {tbl} PO DAILY November 15, 2022 12:00am November 17, 2022 3:04pm Start: 11-15-2022 End: 11-17-2022 take 300-600 tablets by mouth once daily Df-Jmr-Ibirn-T3-Dfdveyd-Jzbcwu (Centrum Silver Men) 300-600-300 mcg tablet Discontinued [...] stage 3a or 3b CKD (HCC)] Chronic Chronic obstructive pulmonary disease and bronchiectasis (1 source) Chronic obstructive pulmonary disease, unspecified; Translations: [Chronic obstructive pulmonary disease, unspecified] Onset: 01-21-2025 Chronic Diabetes mellitus without complication (20 sources) [...] unguium] Episodic Other aftercare (1 source) Other prison (current) drug therapy; Translations: [Other prison (current) drug therapy] Onset: 01-10-2025 Episodic Other [...] Translations: [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 (HCC)] Onset: 01-21-2022 Urinary tract infections (1 source) Urinary tract infection, site not specified; Translations: [Urinary tract infection, site not specified] Onset: 01-23-2025 Episodic Past or Other Problems Problem Classification Problem [...] seizures, not intractable, without status epilepticus] Onset: 01-29-2021 Resolved: 03-25-2021 Chronic Epilepsy; convulsions (20 sources) [...] sources) Long-term current use of anticoagulant; 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080 #### [facility] [address] [place], [address] Chloride [Moles/Vol] 106 mmol/L Normal 98-108 [facility] Comment on above: Order Comment: 133 Performed By: #### L 501.080 #### [facility] [address] [place], [address] CO2 [Moles/Vol] 24.5 mmol/L Normal 21.0-32.0 [facility] Comment on above: Order Comment: 133 Performed By: #### L 501.080 #### [facility] [address] [place], [address] Creatinine [Mass/Vol] 1.20 mg/dL Normal 0.70-1.20 [facility] Comment on above: Order Comment: 133 Performed By: #### L 501.080 #### [facility] [address] [place], [address] GAP 12 Normal 5-15 [facility] Comment on above: Order Comment: 133 Performed By: #### L 501.080 #### [facility] [address] [place], [address] GFR/1.73 sq M.predicted among non-blacks MDRD (S/P/Bld) [Vol rate/Area] 66 mL/min/{1.73_m2} Normal >60 [facility] Comment on above: Order Comment: 133 Result Comment: mL/m in/1.73m2 CKD-EPI Creatinine Equation (2020) Performed By: #### L 501.080 #### [facility] [address] [place], [address] Glucose [Mass/Vol] 94 mg/dL Normal 70-99 [facility] Comment on above: Order Comment: 133 Performed By: #### L 501.080 #### [facility] [address] [place], [address] Potassium [Moles/Vol] 4.0 mmol/L Normal 3.3-5.1 [facility] Comment on above: Order Comment: 133 Performed By: #### L 501.080 #### [facility] [address] [place], [address] Sodium [Moles/Vol] 143 mmol/L Normal 133-145 [facility] Comment on above: Order Comment: 133 Performed By: #### L 501.080 #### [facility] [address] [place], [address] Urea nitrogen [Mass/Vol] 26 mg/dL High 4-19 [facility] Comment on above: Order Comment: 133 Performed By: #### L 501.080 #### [facility] [address] [place], [address] Urine Cultureon 01-13-2025 U[facility] 133 Below infection level. Clinical correlation necessary, Possible skin contamination. Coag Negative Staph [place] Count <1000 Normal [facility] Comment on above: Performed By: #### L 500.4050, L503.6005, L300.8000, L100.0100, L501.5425 #### [facility] [address] [place], [address] Urinalysis, Completeon 01-11 CA OX CRYSTAL 2+ /hpf Normal [facility] Comment on above: Order Comment: 133CL ARISTIDES CATCH Performed By: #### L 500.4050, L503.6005, L300.8000, L100.0100, L501.5425 #### [facility] [address] [place], [address] BACTERIA 0 SEEN Normal None Seen [facility] Comment on above: Order Comment: 133CL ARISTIDES CATCH Performed By: #### L 500.4050, L503.6005, L300.8000, L100.0100, L501.5425 #### [facility] [address] [place], [address] EPI,SQUAMOUS 0 SEEN Normal 0-5 [facility] Comment on above: Order Comment: 133CL ARISTIDES CATCH Performed By: #### L 500.4050, L503.6005, L300.8000, L100.0100, L501.5425 #### [facility] [address] [place], [address] Mucus Ql (Urine sed) 0 SEEN Normal [facility] Comment on above: Order Comment: 133CL ARISTIDES CATCH Performed By: #### L 500.4050, L503.6005, L300.8000, L100.0100, L501.5425 #### [facility] [address] [place], [address] RBC 0 SEEN Normal 0-5 [facility] Comment on above: Order Comment: 133CL ARISTIDES CATCH Performed By: #### L 500.4050, L503.6005, L300.8000, L100.0100, L501.5425 #### [facility] [address] [place], [address] WBC 0 SEEN Normal 0-5 [facility] Comment on above: Order Comment: 133CL ARISTIDES CATCH Performed By: #### L 500.4050, L503.6005, L300.8000, L100.0100, L501.5425 #### [facility] [address] [place], [address] CBC-Complete [facility] Erythrocyte distribution width (RBC) [Ratio] 13.2 % Normal 11.6-14.6 [facility] Comment on above: Order Comment: 133 Performed By: #### L 500.4050, L503.6005, L300.8000, L100.0100, L501.5425 #### [facility] [address] [place], [address] Hematocrit (Bld) [Volume fraction] 42.3 % Normal 40-54 [facility] Comment on above: Order Comment: 133 Performed By: #### L 500.4050, L503.6005, L300.8000, L100.0100, L501.5425 #### [facility] [address] [place], [address] Hemoglobin (Bld) [Mass/Vol] 13.9 g/dL Normal 13.0-16.5 [facility] Comment on above: Order Comment: 133 Performed By: #### L 500.4050, L503.6005, L300.8000, L100.0100, L501.5425 #### [facility] [address] [place], [address] MCH (RBC) [Entitic mass] 31.1 pg Normal 27.0-32.0 [facility] Comment on above: Order Comment: 133 Performed By: #### L 500.4050, L503.6005, L300.8000, L100.0100, L501.5425 #### [facility] [address] [place], [address] MCHC (RBC) [Mass/Vol] 32.9 g/dL Normal 32-36 [facility] Comment on above: Order Comment: 133 Performed By: #### L 500.4050, L503.6005, L300.8000, L100.0100, L501.5425 #### [facility] [address] [place], [address] MCV (RBC) [Entitic vol] 94.6 fL High 80-94 [facility] Comment on above: Order Comment: 133 Performed By: #### L 500.4050, L503.6005, L300.8000, L100.0100, L501.5425 #### [facility] [address] [place], [address] Platelet mean volume (Bld) [Entitic vol] 11.5 fL Normal 6.2-12.0 [facility] Comment on above: Order Comment: 133 Performed By: #### L 500.4050, L503.6005, L300.8000, L100.0100, L501.5425 #### [facility] [address] [place], [address] Platelets (Bld) [#/Vol] 215 10*3/uL Normal 150-450 [facility] Comment on above: Order Comment: 133 Performed By: #### L 500.4050, L503.6005, L300.8000, L100.0100, L501.5425 #### [facility] [address] [place], [address] RBC (Bld) [#/Vol] 4.47 10*6/uL Low 4.6-6.2 [facility] Comment on above: Order Comment: 133 Performed By: #### L 500.4050, L503.6005, L300.8000, L100.0100, L501.5425 #### [facility] [address] [place], [address] RDW SD 45.1 fl High 35.1-43.9 [facility] Comment on above: Order Comment: 133 Performed By: #### L 500.4050, L503.6005, L300.8000, L100.0100, L501.5425 #### [facility] [address] [place], [address] WBC (Bld) [#/Vol] 7.4 10*3/uL Normal 4.4-11.0 [facility] Comment on above: Order Comment: 133 Performed By: #### L 500.4050, L503.6005, L300.8000, L100.0100, L501.5425 #### [facility] [address] [place], [address] Comprehensive Metabolic Prof [facility] 01-02-2025 Albumin [Mass/Vol] 4.0 g/dL Normal 3.4-4.8 [facility] Comment on above: Order Comment: 133 Performed By: #### L 500.4050, L503.6005, L300.8000, L100.0100, L501.5425 #### [facility] [address] [place], [address] Albumin/Globulin [Mass ratio] 1.8 {ratio} Normal 0.9-2.4 [facility] Comment on above: Order Comment: 133 Performed By: #### L 500.4050, L503.6005, L300.8000, L100.0100, L501.5425 #### [facility] [address] [place], [address] ALK PHOS 59 U/L Normal 40-129 [facility] Comment on above: Order Comment: 133 Performed By: #### L 500.4050, L503.6005, L300.8000, L100.0100, L501.5425 #### [facility] [address] [place], [address] ALT [Catalytic activity/Vol] 8 U/L Normal <=46 [facility] Comment on above: Order Comment: 133 Performed By: #### L 500.4050, L503.6005, L300.8000, L100.0100, L501.5425 #### [facility] [address] [place], [address] AST [Catalytic activity/Vol] 17 U/L Normal <=37 [facility] Comment on above: Order Comment: 133 Performed By: #### L 500.4050, L503.6005, L300.8000, L100.0100, L501.5425 #### [facility] [address] [place], [address] Bilirubin [Mass/Vol] 0.23 mg/dL Normal 0.00-1.30 [facility] Comment on above: Order Comment: 133 Performed By: #### L 500.4050, L503.6005, L300.8000, L100.0100, L501.5425 #### [facility] [address] [place], [address] BUN/CRE 21.2 RATIO High 10-20 [facility] Comment on above: Order Comment: 133 Performed By: #### L 500.4050, L503.6005, L300.8000, L100.0100, L501.5425 #### [facility] [address] [place], [address] Calcium [Mass/Vol] 9.1 mg/dL Normal 7.6-11.0 [facility] Comment on above: Order Comment: 133 Performed By: #### L 500.4050, L503.6005, L300.8000, L100.0100, L501.5425 #### [facility] [address] [place], [address] Chloride [Moles/Vol] 106 mmol/L Normal 98-108 [facility] Comment on above: Order Comment: 133 Performed By: #### L 500.4050, L503.6005, L300.8000, L100.0100, L501.5425 #### [facility] [address] [place], [address] CO2 [Moles/Vol] 25.3 mmol/L Normal 21.0-32.0 [facility] Comment on above: Order Comment: 133 Performed By: #### L 500.4050, L503.6005, L300.8000, L100.0100, L501.5425 #### [facility] [address] [place], [address] Creatinine [Mass/Vol] 1.35 mg/dL High 0.70-1.20 [facility] Comment on above: Order Comment: 133 Performed By: #### L 500.4050, L503.6005, L300.8000, L100.0100, L501.5425 #### [facility] [address] [place], [address] GAP 11 Normal 5-15 [facility] Comment on above: Order Comment: 133 Performed By: #### L 500.4050, L503.6005, L300.8000, L100.0100, L501.5425 #### [facility] [address] [place], [address] GFR/1.73 sq M.predicted among non-blacks MDRD (S/P/Bld) [Vol rate/Area] 58 mL/min/{1.73_m2} Low >60 [facility] Comment on above: Order Comment: 133 Result Comment: mL/m in/1.73m2 CKD-EPI Creatinine Equation (2020) Performed By: #### L 500.4050, L503.6005, L300.8000, L100.0100, L501.5425 #### [facility] [address] [place], [address] Globulin (S) [Mass/Vol] 2.2 g/dL Normal 2.2-4.2 [facility] Comment on above: Order Comment: 133 Performed By: #### L 500.4050, L503.6005, L300.8000, L100.0100, L501.5425 #### [facility] [address] [place], [address] Glucose [Mass/Vol] 95 mg/dL Normal 70-99 [facility] Comment on above: Order Comment: 133 Performed By: #### L 500.4050, L503.6005, L300.8000, L100.0100, L501.5425 #### [facility] [address] [place], [address] Potassium [Moles/Vol] 4.7 mmol/L Normal 3.3-5.1 [facility] Comment on above: Order Comment: 133 Performed By: #### L 500.4050, L503.6005, L300.8000, L100.0100, L501.5425 #### [facility] [address] [place], [address] Sodium [Moles/Vol] 143 mmol/L Normal 133-145 [facility] Comment on above: Order Comment: 133 Performed By: #### L 500.4050, L503.6005, L300.8000, L100.0100, L501.5425 #### [facility] [address] [place], [address] T PROT 6.2 g/dL Normal 5.9-8.4 [facility] Comment on above: Order Comment: 133 Performed By: #### L 500.4050, L503.6005, L300.8000, L100.0100, L501.5425 #### [facility] [address] [place], [address] Urea nitrogen [Mass/Vol] 29 mg/dL High 4-19 [facility] Comment on above: Order Comment: 133 Performed By: #### L 500.4050, L503.6005, L300.8000, L100.0100, L501.5425 #### [facility] [address] [place], [address] Valproic Acid (Depakene) Lev cecil 01-02-2025 VALPROIC ACID 73 ug/mL Normal 50-100 [facility] Comment on above: Order Comment: 133 Result Comment: Valp roic Acid concentrations >100 ug/mL are potentially toxic. Performed By: #### L 500.4050, L503.6005, L300.8000, L100.0100, L501.5425 #### [facility] [address] [place], [address] Phenytoin (Dilantin) Levelon 11-27-2024 Phenytoin [Mass/Vol] 1.0 ug/mL Low 10.0-20.0 [facility] Comment on above: Order Comment: [id number] Result Comment: Toxi c signs are seldom seen below 15 ug/mL, while nystagmus often appears when serum levels rise above 20 ug/mL. Ataxia is observed most often when serum levels reach 25 to 30 ug/mL and somnolence and dysarthria above 40 ug/mL. At high doses, phenytoin can even cause an increase in the frequency of seizures. Performed By: #### L 500.4050, L503.6005, L300.8000, L100.0100, L501.5425 #### [facility] [address] [place], [place], [address] [id number] 11-08-2024 [facility]. COMMENT Normal . [facility] Comment on above: Order Comment: Y Result Comment: Test Ordered: [id number] Diltiazem(Cardizem,Dilacor) S Diltiazem <20 [L ] ng/ml MX Reference Range: 50 - 200 Note: Analysis performed on a micro-specimen. This test was developed and its performance characteristics determined by [facility]. It has not been cleared or approved by the Food and Drug Administration. Performed at: [email or web address] [address] [place] [address] [id number] [employer] Tool Setter: [employer], Phone: [phone] Performed at: [address] [id number] [employer] Setter: Enrico Berg PhD, Phone: [phone] Performed By: #### L 500.4050, L503.6005, L300.8000, L100.0100, L501.5425 #### [facility] [address] [place], [place], [address] [id number] 10-30-2024 [facility]. COMMENT Normal . [facility] Comment on above: Order Comment: Y Result Comment: Test Ordered: [id number] Diltiazem(Cardizem,Dilacor) S Diltiazem ng/ml MX Reference Range: . Test not performed Initial assay failure. Insufficient specimen volume to repeat analysis. Performed at: [email or web address] [address] [place] [address] [id number] [employer] Tool Setter: Carly [employer], Phone: [phone] Performed at: [address] [id number] [employer] Setter: Enrico Berg PhD, Phone: [phone] Performed By: #### L 500.4050, L503.6005, L300.8000, L100.0100, L501.5425 #### [facility] [address] 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, [address] Absolute Neut 3.2 X10 3/uL Normal 2.0-7.7 [facility] Comment on above: Order Comment: Y Performed By: #### L 500.4050, L503.6005, L300.8000, L100.0100, L501.5425 #### [facility] [address] [place], [address] Basophils/100 WBC (Bld) 0.6 % Normal 0-1 [facility] Comment on above: Order Comment: Y Performed By: #### L 500.4050, L503.6005, L300.8000, L100.0100, L501.5425 #### [facility] [address] [place], [address] Eosinophils/100 WBC (Bld) 5.3 % High 0-5 [facility] Comment on above: Order Comment: Y Performed By: #### L 500.4050, L503.6005, L300.8000, L100.0100, L501.5425 #### [facility] [address] [place], [address] Erythrocyte distribution width (RBC) [Ratio] 15.0 % High 11.6-14.6 [facility] Comment on above: Order Comment: Y Performed By: #### L 500.4050, L503.6005, L300.8000, L100.0100, L501.5425 #### [facility] [address] [place], [address] Hematocrit (Bld) [Volume fraction] 42.2 % Normal 40-54 [facility] Comment on above: Order Comment: Y Performed By: #### L 500.4050, L503.6005, L300.8000, L100.0100, L501.5425 #### [facility] [address] [place], [address] Hemoglobin (Bld) [Mass/Vol] 13.7 g/dL Normal 13.0-16.5 [facility] Comment on above: Order Comment: Y Performed By: #### L 500.4050, L503.6005, L300.8000, L100.0100, L501.5425 #### [facility] [address] [place], [address] IG% 0.500 Normal 0.0-0.9 [facility] Comment on above: Order Comment: Y Result Comment: IG% - Immature Granulocytes (promyelocytes, myelocytes and metamyelocytes) > 1% indicates that a LEFT SHIFT is Present. Performed By: #### L 500.4050, L503.6005, L300.8000, L100.0100, L501.5425 #### [facility] [address] [place], [address] Lymphocytes/100 WBC (Bld) 33.4 % Normal 19-41 [facility] Comment on above: Order Comment: Y Performed By: #### L 500.4050, L503.6005, L300.8000, L100.0100, L501.5425 #### [facility] [address] [place], [address] MCH (RBC) [Entitic mass] 30.7 pg Normal 27.0-32.0 [facility] Comment on above: Order Comment: Y Performed By: #### L 500.4050, L503.6005, L300.8000, L100.0100, L501.5425 #### [facility] [address] [place], [address] MCHC (RBC) [Mass/Vol] 32.5 g/dL Normal 32-36 [facility] Comment on above: Order Comment: Y Performed By: #### L 500.4050, L503.6005, L300.8000, L100.0100, L501.5425 #### [facility] [address] [place], [address] MCV (RBC) [Entitic vol] 94.6 fL High 80-94 [facility] Comment on above: Order Comment: Y Performed By: #### L 500.4050, L503.6005, L300.8000, L100.0100, L501.5425 #### [facility] [address] [place], [address] Monocytes/100 WBC (Bld) 9.4 % Normal 0-10 [facility] Comment on above: Order Comment: Y Performed By: #### L 500.4050, L503.6005, L300.8000, L100.0100, L501.5425 #### [facility] [address] [place], [address] Neutrophils/100 WBC (Bld) 50.8 % Normal 47-70 [facility] Comment on above: Order Comment: Y Performed By: #### L 500.4050, L503.6005, L300.8000, L100.0100, L501.5425 #### [facility] [address] [place], [address] Nucleated RBC (Bld) [#/Vol] 0 10*3/uL Normal 0-5 [facility] Comment on above: Order Comment: Y Performed By: #### L 500.4050, L503.6005, L300.8000, L100.0100, L501.5425 #### [facility] [address] [place], [address] Platelet mean volume (Bld) [Entitic vol] 10.9 fL Normal 6.2-12.0 [facility] Comment on above: Order Comment: Y Performed By: #### L 500.4050, L503.6005, L300.8000, L100.0100, L501.5425 #### [facility] [address] [place], [address] Platelets (Bld) [#/Vol] 236 10*3/uL Normal 150-450 [facility] Comment on above: Order Comment: Y Performed By: #### L 500.4050, L503.6005, L300.8000, L100.0100, L501.5425 #### [facility] [address] [place], [address] RBC (Bld) [#/Vol] 4.46 10*6/uL Low 4.6-6.2 [facility] Comment on above: Order Comment: Y Performed By: #### L 500.4050, L503.6005, L300.8000, L100.0100, L501.5425 #### [facility] [address] [place], [address] RDW SD 52.3 fl High 35.1-43.9 [facility] Comment on above: Order Comment: Y Performed By: #### L 500.4050, L503.6005, L300.8000, L100.0100, L501.5425 #### [facility] [address] [place], [address] WBC (Bld) [#/Vol] 6.3 10*3/uL Normal 4.4-11.0 [facility] Comment on above: Order Comment: Y Performed By: #### L 500.4050, L503.6005, L300.8000, L100.0100, L501.5425 #### [facility] [address] [place], [address] Comprehensive Metabolic Prof ilon 10-23-2024 Albumin [Mass/Vol] 4.2 g/dL Normal 3.4-4.8 [facility] Comment on above: Order Comment: Y Performed By: #### L 500.4050, L503.6005, L300.8000, L100.0100, L501.5425 #### [facility] [address] [place], [address] Albumin/Globulin [Mass ratio] 1.7 {ratio} Normal 0.9-2.4 [facility] Comment on above: Order Comment: Y Performed By: #### L 500.4050, L503.6005, L300.8000, L100.0100, L501.5425 #### [facility] [address] [place], [address] ALK PHOS 63 U/L Normal 40-129 [facility] Comment on above: Order Comment: Y Performed By: #### L 500.4050, L503.6005, L300.8000, L100.0100, L501.5425 #### [facility] [address] [place], [address] ALT [Catalytic activity/Vol] 13 U/L Normal <=46 [facility] Comment on above: Order Comment: Y Performed By: #### L 500.4050, L503.6005, L300.8000, L100.0100, L501.5425 #### [facility] [address] [place], [address] AST [Catalytic activity/Vol] 16 U/L Normal <=37 [facility] Comment on above: Order Comment: Y Performed By: #### L 500.4050, L503.6005, L300.8000, L100.0100, L501.5425 #### [facility] [address] [place], [address] Bilirubin [Mass/Vol] 0.30 mg/dL Normal 0.00-1.30 [facility] Comment on above: Order Comment: Y Performed By: #### L 500.4050, L503.6005, L300.8000, L100.0100, L501.5425 #### [facility] [address] [place], [address] BUN/CRE 18.7 RATIO Normal 10-20 [facility] Comment on above: Order Comment: Y Performed By: #### L 500.4050, L503.6005, L300.8000, L100.0100, L501.5425 #### [facility] [address] [place], [address] Calcium [Mass/Vol] 9.4 mg/dL Normal 7.6-11.0 [facility] Comment on above: Order Comment: Y Performed By: #### L 500.4050, L503.6005, L300.8000, L100.0100, L501.5425 #### [facility] [address] [place], [address] Chloride [Moles/Vol] 106 mmol/L Normal 98-108 [facility] Comment on above: Order Comment: Y Performed By: #### L 500.4050, L503.6005, L300.8000, L100.0100, L501.5425 #### [facility] [address] [place], [address] CO2 [Moles/Vol] 24.9 mmol/L Normal 21.0-32.0 [facility] Comment on above: Order Comment: Y Performed By: #### L 500.4050, L503.6005, L300.8000, L100.0100, L501.5425 #### [facility] [address] [place], [address] Creatinine [Mass/Vol] 1.27 mg/dL High 0.70-1.20 [facility] Comment on above: Order Comment: Y Performed By: #### L 500.4050, L503.6005, L300.8000, L100.0100, L501.5425 #### [facility] [address] [place], [address] GAP 12 Normal 5-15 [facility] Comment on above: Order Comment: Y Performed By: #### L 500.4050, L503.6005, L300.8000, L100.0100, L501.5425 #### [facility] [address] [place], [address] GFR/1.73 sq M.predicted among non-blacks MDRD (S/P/Bld) [Vol rate/Area] 62 mL/min/{1.73_m2} Normal >60 [facility] Comment on above: Order Comment: Y Result Comment: mL/m in/1.73m2 CKD-EPI Creatinine Equation (2020) Performed By: #### L 500.4050, L503.6005, L300.8000, L100.0100, L501.5425 #### [facility] [address] [place], [address] Globulin (S) [Mass/Vol] 2.4 g/dL Normal 2.2-4.2 [facility] Comment on above: Order Comment: Y Performed By: #### L 500.4050, L503.6005, L300.8000, L100.0100, L501.5425 #### [facility] [address] [place], [address] Glucose [Mass/Vol] 97 mg/dL Normal 70-99 [facility] Comment on above: Order Comment: Y Performed By: #### L 500.4050, L503.6005, L300.8000, L100.0100, L501.5425 #### [facility] [address] [place], [address] Potassium [Moles/Vol] 4.4 mmol/L Normal 3.3-5.1 [facility] Comment on above: Order Comment: Y Performed By: #### L 500.4050, L503.6005, L300.8000, L100.0100, L501.5425 #### [facility] [address] [place], [address] Sodium [Moles/Vol] 143 mmol/L Normal 133-145 [facility] Comment on above: Order Comment: Y Performed By: #### L 500.4050, L503.6005, L300.8000, L100.0100, L501.5425 #### [facility] [address] [place], [address] T PROT 6.7 g/dL Normal 5.9-8.4 [facility] Comment on above: Order Comment: Y Performed By: #### L 500.4050, L503.6005, L300.8000, L100.0100, L501.5425 #### [facility] [address] [place], [address] Urea nitrogen [Mass/Vol] 24 mg/dL High 4-19 [facility] Comment on above: Order Comment: Y Performed By: #### L 500.4050, L503.6005, L300.8000, L100.0100, L501.5425 #### [facility] [address] [place], [address] Hemoglobin A1con 10-23-2024 HbA1c (Bld) [Mass fraction] 6.2 % High <=5.6 [facility] Comment on above: Order Comment: Y Result Comment: Norm al < 5.7 % Prediabetic 5.7 - 6.4 % Diabetic >or= 6.5 % Please note range changes. Performed By: #### L 500.4050, L503.6005, L300.8000, L100.0100, L501.5425 #### [facility] [address] [place], [address] Magnesiumon 10-23-2024 Magnesium [Mass/Vol] 2.4 mg/dL High 1.5-2.2 [facility] Comment on above: Order Comment: Y Performed By: #### L 500.4050, L503.6005, L300.8000, L100.0100, L501.5425 #### [facility] [address] [place], [address] Valproic Acid (Depakene) Lev cecil 10-23-2024 VALPROIC ACID 75 ug/mL Normal 50-100 [facility] Comment on above: Order Comment: Y Result Comment: Valp roic Acid concentrations >100 ug/mL are potentially toxic. Performed By: #### L 500.4050, L503.6005, L300.8000, L100.0100, L501.5425 #### [facility] [address] [place], [address] Anion gap in Serum or Plasma Ordered By: Jigna Brantley on 09-26-2024 Anion gap [Moles/Vol] 12 mmol/L 5-15 [facility] BUN/creatinine ratioOrdered By: Jigna Brantley on 09-26-2024 Urea nitrogen/Creatinine [Mass ratio] 24.2 mg/mg High 10- [facility] Basic Metabolic Profile (BMP )on 09-26-2024 BUN/CRE 24.2 RATIO High - [facility] Comment on above: Order Comment: 209 Performed By: #### L 501.5200, L500.2500 #### [facility] [address] [place], [address] Calcium [Mass/Vol] 9.8 mg/dL Normal 7.6-11.0 [facility] Comment on above: Order Comment: 209 Performed By: #### L 501.5200, L500.2500 #### [facility] [address] [place], [address] Chloride [Moles/Vol] 103 mmol/L Normal 98-108 [facility] Comment on above: Order Comment: 209 Performed By: #### L 501.5200, L500.2500 #### [facility] [address] [place], [address] CO2 [Moles/Vol] 26.1 mmol/L Normal 21.0-32.0 [facility] Comment on above: Order Comment: 209 Performed By: #### L 501.5200, L500.2500 #### [facility] [address] [place], [address] Creatinine [Mass/Vol] 1.46 mg/dL High 0.70-1.20 [facility] Comment on above: Order Comment: 209 Performed By: #### L 501.5200, L500.2500 #### [facility] [address] [place], [address] GAP 12 Normal 5-15 [facility] Comment on above: Order Comment: 209 Performed By: #### L 501.5200, L500.2500 #### [facility] [address] [place], [address] GFR/1.73 sq M.predicted among non-blacks MDRD (S/P/Bld) [Vol rate/Area] 52 mL/min/{1.73_m2} Low >60 [facility] Comment on above: Order Comment: 209 Result Comment: mL/m in/1.73m2 CKD-EPI Creatinine Equation (2020) Performed By: #### L 501.5200, L500.2500 #### [facility] [address] [place], [address] Glucose [Mass/Vol] 98 mg/dL Normal 70-99 [facility] Comment on above: Order Comment: 209 Performed By: #### L 501.5200, L500.2500 #### [facility] [address] [place], [address] Potassium [Moles/Vol] 4.5 mmol/L Normal 3.3-5.1 [facility] Comment on above: Order Comment: 209 Performed By: #### L 501.5200, L500.2500 #### [facility] [address] [place], [address] Sodium [Moles/Vol] 141 mmol/L Normal 133-145 [facility] Comment on above: Order Comment: 209 Performed By: #### L 501.5200, L500.2500 #### [facility] [address] [place], [address] Urea nitrogen [Mass/Vol] 35 mg/dL High 4-19 [facility] Comment on above: Order Comment: 209 Performed By: #### L 501.5200, L500.2500 #### [facility] [address] [place], [address] Carbon dioxide, total [Moles /volume] in Central venous bloodOrdered By: Jigna Brantley on 09-26-2024 CO2 [Moles/Vol] 26.1 mmol/L 21.0-32.0 [facility] Chloride assayOrdered By: Fabricio Brantley on 09-26-2024 Chloride [Moles/Vol] 103 mmol/L 98-108 [facility] Glomerular filtration rate ( GFR) estimation/1.73 sq m using serum, plasma, or whole bOrdered By: Jigna Brantley on 09-26-2024 GFR/1.73 sq M.predicted among non-blacks MDRD (S/P/Bld) [Vol rate/Area] 52 mL/min/{1.73_m2} Low >60 [facility] Comment on above: mL/min/1.73m2 CKD-EP I Creatinine Equation (2020) Magnesiumon 09-26-2024 Magnesium [Mass/Vol] 2.4 mg/dL High 1.5-2.2 [facility] Comment on above: Order Comment: 209 Performed By: #### L 501.5200, L500.2500 #### [facility] [address] [place], [address] Magnesium measurement (mass/ volume)Ordered By: Jigna Brantley on 09-26-2024 Magnesium (Unsp spec) [Mass/Vol] 2.4 mg/dL High 1.5-2.2 [facility] Potassium measurement (mass/ volume)Ordered By: Jigna Brantley on 09-26-2024 Potassium (Unsp spec) [Mass/Vol] 4.5 mmol/L 3.3-5.1 [facility] Serum creatinine measurement (mass/volume)Ordered By: Jigna Brantley on 09-26-2024 Creatinine [Mass/Vol] 1.46 mg/dL High 0.70-1.20 [facility] Serum glucose measurement (m ass/volume)Ordered By: Jigna Brantley on 09-26-2024 Glucose [Mass/Vol] 98 mg/dL 70-99 [facility] Serum or plasma calcium rosalina urement (mass/volume)Ordered By: Jigna Brantley on 09-26-2024 Calcium [Mass/Vol] 9.8 mg/dL 7.6-11.0 [facility] Serum or plasma urea nitroge n measurement (mass/volume)Ordered By: Jigna Brantley on 09-26-2024 Urea nitrogen [Mass/Vol] 35 mg/dL High 4-19 [facility] Sodium levelOrdered By: Enoch Brantley on 09-26-2024 Sodium [Moles/Vol] 141 mmol/L 133-145 [facility] CRPon 08-27-2024 C-REACTIVE PROT 37.80 mg/L High 0.0-3.0 [facility] Comment on above: Order Comment: 209 Performed By: #### L 500.4050, L503.6005, L300.8000, L100.0100, L501.5425 #### [facility] [address] [place], [address] CRP [Mass/Vol]Ordered By: Fabricio Brantley on 08-27-2024 C-Reactive Protein Extended Range 37.80 mg/L High 0.0-3.0 [facility] Serum or plasma C reactive p rotein measurement (mass/volume)Ordered By: Jigna Brantley on 08-27-2024 CRP [Mass/Vol] 37.80 mg/L High 0.0-3.0 [facility] Serum or plasma uric acid me asurement (mass/volume)Ordered By: Jigna Brantley on 08-27-2024 Urate [Mass/Vol] 7.6 mg/dL High 3.5-7.2 [facility] Comment on above: The drugs N-Acetylcy steine and Metamizole may falsely depress this assay. Uric Acidon 08-27-2024 URIC 7.6 mg/dL High 3.5-7.2 [facility] Comment on above: Order Comment: 209 Result Comment: The drugs N-Acetylcysteine and Metamizole may falsely depress this assay. Performed By: #### L 500.4050, L503.6005, L300.8000, L100.0100, L501.5425 #### [facility] [address] [place], [place], [address] Absolute lymphocyte countOrd ered By: Jigna Brantley on 07-23-2024 Lymphocytes Auto (Unsp spec) [#/Vol] 3.24 10*3/uL 0.83-4.51 [facility] Absolute neutrophil countOrd ered By: Jignabailey Brantley on 07-23-2024 Neutrophils (Bld) [#/Vol] 5.5 10*3/uL 2.0-7.7 [facility] Automated lymphocyte count a s percentage of total leukocytesOrdered By: Jigna Brantley on 07-23-2024 Lymphocytes/100 WBC Auto (Unsp spec) 33.6 % 19-41 [facility] Basic Metabolic Profile (BMP )on 07-23-2024 BUN/CRE 16.1 RATIO Normal 10-20 [facility] Comment on above: Order Comment: 206.1 Performed By: #### L 501.080 #### [facility] [address] [place], [address] CA,Total 8.6 mg/dL Normal 8.5-10.1 [facility] Comment on above: Order Comment: . Performed By: #### L 501.080 #### [facility] [address] [place], [address] Chloride [Moles/Vol] 102 mmol/L Normal 98-107 [facility] Comment on above: Order Comment: . Performed By: #### L 501.080 #### [facility] [address] [place], [address] CO2 [Moles/Vol] 31.0 mmol/L Normal 21.0-32.0 [facility] Comment on above: Order Comment: . Performed By: #### L 501.080 #### [facility] [address] [place], [address] Creatinine [Mass/Vol] 1.37 mg/dL High 0.70-1.30 [facility] Comment on above: Order Comment: 206.1 Result Comment: The validity of the calculated GFR GFRAA in patients over 70 years has not been determined. Clinical correlation is essential. Performed By: #### L 501.080 #### [facility] [address] [place], [address] EST GFR - AA 67 mL/min Normal >60 [facility] Comment on above: Order Comment: .1 Result Comment: Afri can Mauritian GFR Calc Performed By: #### L 501.080 #### [facility] [address] [place], [address] GAP 5 Normal 5-15 [facility] Comment on above: Order Comment: . Performed By: #### L 501.080 #### [facility] [address] [place], [address] GFR/1.73 sq M.predicted among non-blacks MDRD (S/P/Bld) [Vol rate/Area] 55 mL/min/{1.73_m2} Low >60 [facility] Comment on above: Order Comment: 206.1 Result Comment: Non- GFR Calc Performed By: #### L 501.080 #### [facility] [address] [place], [address] Glucose [Mass/Vol] 92 mg/dL Normal 74-106 [facility] Comment on above: Order Comment: 206.1 Performed By: #### L 501.080 #### [facility] [address] [place], [address] Potassium [Moles/Vol] 4.1 mmol/L Normal 3.5-5.1 [facility] Comment on above: Order Comment: 206.1 Performed By: #### L 501.080 #### [facility] [address] [place], [address] Sodium [Moles/Vol] 138 mmol/L Normal 136-145 [facility] Comment on above: Order Comment: 206.1 Performed By: #### L 501.080 #### [facility] [address] [place], [address] Urea nitrogen [Mass/Vol] 22 mg/dL High 7-18 [facility] Comment on above: Order Comment: 206.1 Performed By: #### L 501.080 #### [facility] [address] [place], [address] Basophil percentageOrdered B y: Jigna Brantley on 07-23-2024 Basophils/100 WBC (Bld) 0.5 % 0-1 [facility] Blood urea nitrogen (BUN)/cr eatinine ratioOrdered By: Jigna Brantley on 07-23-2024 Urea nitrogen/Creatinine [Mass ratio] 16.1 mg/mg 10-20 [facility] CBC W/Diff, Automatedon -2 Absolute Lymph 3.24 X10 3/uL Normal 0.83-4.51 [facility] Comment on above: Order Comment: 206.1 Performed By: #### L 501.080 #### [facility] [address] [place], [address] Absolute Neut 5.5 X10 3/uL Normal 2.0-7.7 [facility] Comment on above: Order Comment: 206.1 Performed By: #### L 501.080 #### [facility] [address] [place], [address] Basophils/100 WBC (Bld) 0.5 % Normal 0-1 [facility] Comment on above: Order Comment: 206.1 Performed By: #### L 501.080 #### [facility] [address] [place], [address] Eosinophils/100 WBC (Bld) 0.6 % Normal 0-5 [facility] Comment on above: Order Comment: 206.1 Performed By: #### L 501.080 #### [facility] [address] [place], [address] Erythrocyte distribution width (RBC) [Ratio] 14.1 % Normal 11.6-14.6 [facility] Comment on above: Order Comment: 206.1 Performed By: #### L 501.080 #### [facility] [address] [place], [address] Hematocrit (Bld) [Volume fraction] 43.3 % Normal 40-54 [facility] Comment on above: Order Comment: 206.1 Performed By: #### L 501.080 #### [facility] [address] [place], [address] Hemoglobin (Bld) [Mass/Vol] 13.9 g/dL Normal 13.0-16.5 [facility] Comment on above: Order Comment: 206.1 Performed By: #### L 501.080 #### [facility] [address] [place], [address] IG% 0.600 Normal 0.0-0.9 [facility] Comment on above: Order Comment: 206.1 Result Comment: IG% - Immature Granulocytes (promyelocytes, myelocytes and metamyelocytes) > 1% indicates that a LEFT SHIFT is Present. Performed By: #### L 501.080 #### [facility] [address] [place], [address] Lymphocytes/100 WBC (Bld) 33.6 % Normal 19-41 [facility] Comment on above: Order Comment: 206.1 Performed By: #### L 501.080 #### [facility] [address] [place], [address] MCH (RBC) [Entitic mass] 30.3 pg Normal 27.0-32.0 [facility] Comment on above: Order Comment: 206.1 Performed By: #### L 501.080 #### [facility] [address] [place], [address] MCHC (RBC) [Mass/Vol] 32.1 g/dL Normal 32-36 [facility] Comment on above: Order Comment: 206.1 Performed By: #### L 501.080 #### [facility] [address] [place], [address] MCV (RBC) [Entitic vol] 94.3 fL High 80-94 [facility] Comment on above: Order Comment: 206.1 Performed By: #### L 501.080 #### [facility] [address] [place], [address] Monocytes/100 WBC (Bld) 7.2 % Normal 0-10 [facility] Comment on above: Order Comment: 206.1 Performed By: #### L 501.080 #### [facility] [address] [place], [address] Neutrophils/100 WBC (Bld) 57.5 % Normal 47-70 [facility] Comment on above: Order Comment: 206.1 Performed By: #### L 501.080 #### [facility] [address] [place], [address] Nucleated RBC (Bld) [#/Vol] 0 10*3/uL Normal 0-5 [facility] Comment on above: Order Comment: 206.1 Performed By: #### L 501.080 #### [facility] [address] [place], [address] Platelet mean volume (Bld) [Entitic vol] 11.2 fL Normal 6.2-12.0 [facility] Comment on above: Order Comment: 206.1 Performed By: #### L 501.080 #### [facility] [address] [place], [address] Platelets (Bld) [#/Vol] 320 10*3/uL Normal 150-450 [facility] Comment on above: Order Comment: 206.1 Performed By: #### L 501.080 #### [facility] [address] [place], [address] RBC (Bld) [#/Vol] 4.59 10*6/uL Low 4.6-6.2 [facility] Comment on above: Order Comment: 206.1 Performed By: #### L 501.080 #### [facility] [address] [place], [address] RDW SD 48.2 fl High 35.1-43.9 [facility] Comment on above: Order Comment: 206.1 Performed By: #### L 501.080 #### [facility] [address] [place], [address] WBC (Bld) [#/Vol] 9.6 10*3/uL Normal 4.4-11.0 [facility] Comment on above: Order Comment: 206.1 Performed By: #### L 501.080 #### [facility] [place], [address] Carbon dioxide measurementOr dered By: Jigna Brantley on 07-23-2024 CO2 [Moles/Vol] 31.0 mmol/L 21.0-32.0 [facility] Chloride measurementOrdered By: Jigna Brantley on 07-23-2024 Chloride [Moles/Vol] 102 mmol/L 98-107 [facility] Eosinophil percentageOrdered By: Jigna Brantley on 07-23-2024 Eosinophils/100 WBC (Bld) 0.6 % 0-5 [facility] Erythrocyte distribution wid th (RBC) [Ratio]Ordered By: Jigna Brantley on 07-23-2024 Erythrocyte distribution width (RBC) [Entitic vol] 48.2 fL High 35.1-43.9 [facility] Erythrocyte distribution wid th ratioOrdered By: Jigna Brantley on 07-23-2024 Erythrocyte distribution width (RBC) [Ratio] 14.1 % 11.6-14.6 [facility] Erythrocyte distribution wid th standard deviationOrdered By: Jignabaiely Brantley on 07-23-2024 Erythrocyte distribution width (RBC) [Ratio] 48.2 fl High 35.1-43.9 [facility] Estimated glomerular filtrat ion rate (GFR) AmericanOrdered By: Jigna Brantley on 07-23-2024 Estimated GFR (MDRD) Amer 67 mL/min >60 [facility] Comment on above: GFR Calc Glomerular filtration rate ( GFR) estimationOrdered By: Jigna Brantley on 07-23-2024 Estimated GFR (MDRD) Non-Af Amer 55 mL/min Low >60 [facility] Comment on above: Non- GFR Calc GFR/1.73 sq M.predicted among non-blacks MDRD (S/P/Bld) [Vol rate/Area] 55 mL/min/{1.73_m2} Low >60 [facility] Comment on above: Non- GFR Calc Glucose measurementOrdered B y: Jigna Brantley on 07-23-2024 Glucose [Mass/Vol] 92 mg/dL 74-106 [facility] Hematocrit Auto (Bld) [Volum e fraction]Ordered By: Jigna Brantley on 07-23-2024 Hematocrit (Bld) [Volume fraction] 43.3 % 40-54 [facility] Hemoglobin measurementOrdere d By: Jigna Brantley on 07-23-2024 Hemoglobin (Bld) [Mass/Vol] 13.9 g/dL 13.0-16.5 [facility] Immature granulocytes/100 WB C Auto (Bld)Ordered By: Jigna Brantley on 07-23-2024 Immature granulocytes/100 WBC (Bld) 0.600 % 0.0-0.9 [facility] Comment on above: IG% - Immature Granu locytes (promyelocytes, myelocytes and metamyelocytes) > 1% indicates that a LEFT SHIFT is Present. Lymphocytes Auto (Unsp spec) [#/Vol]Ordered By: Jigna Brantley on 07-23-2024 Lymphocytes (Bld) [#/Vol] 3.24 10*3/uL 0.83-4.51 [facility] Lymphocytes/100 WBC Auto (Un sp spec)Ordered By: Jigna Brantley on 07-23-2024 Lymphocytes/100 WBC (Bld) 33.6 % 19-41 [facility] MCV (mean corpuscular volume ) determinationOrdered By: Jigna Brantley on 07-23-2024 MCV (RBC) [Entitic vol] 94.3 fL High 80-94 [facility] Magnesiumon 07-23-2024 Magnesium [Mass/Vol] 2.5 mg/dL Normal 1.6-2.6 [facility] Comment on above: Order Comment: 206.1 Performed By: #### L 501.080 #### [facility] [place] [address], [address] Magnesium measurementOrdered By: Jigna Brantley on 07-23-2024 Magnesium [Mass/Vol] 2.5 mg/dL 1.6-2.6 [facility] Mean corpuscular hemoglobin (MCH) determinationOrdered By: Jigna Brantley on 07-23-2024 MCH (RBC) [Entitic mass] 30.3 pg 27.0-32.0 [facility] Mean corpuscular hemoglobin concentration (MCHC) determinationOrdered By: Jigna Brantley on 07-23-2024 MCHC (RBC) [Mass/Vol] 32.1 g/dL 32-36 [facility] Mean platelet volume determi nationOrdered By: Jigna Brantley on 07-23-2024 Platelet mean volume (Bld) [Entitic vol] 11.2 fL 6.2-12.0 [facility] Monocyte percentageOrdered B y: Jigna Brantley on 07-23-2024 Monocytes/100 WBC (Bld) 7.2 % 0-10 [facility] Neutrophil percentageOrdered By: Jigna Brantley on 07-23-2024 Neutrophils/100 WBC (Bld) 57.5 % 47-70 [facility] Nucleated red blood cell per centageOrdered By: Jigna Brantley on 07-23-2024 Nucleated RBC/100 WBC (Bld) [Ratio] 0 % 0-5 [facility] Platelet countOrdered By: Fabricio Brantley on 07-23-2024 Platelets (Bld) [#/Vol] 320 10*3/uL 150-450 [facility] Potassium measurementOrdered By: Jigna Brantley on 07-23-2024 Potassium [Moles/Vol] 4.1 mmol/L 3.5-5.1 [facility] RBC Auto (Bld) [#/Vol]Ordere d By: Jigna Brantley on 07-23-2024 RBC (Bld) [#/Vol] 4.59 10*6/uL Low 4.6-6.2 [facility] Serum anion gap measurementO rdered By: Jigna Brantley on 07-23-2024 Anion gap [Moles/Vol] 5 mmol/L 5-15 [facility] Serum or plasma calcium rosalina urement (mass/volume)Ordered By: Jigna Brantley on 07-23-2024 Calcium [Mass/Vol] 8.6 mg/dL 8.5-10.1 [facility] Serum or plasma creatinine m easurement (mass/volume)Ordered By: Jigna Brantley on 07-23-2024 Creatinine [Mass/Vol] 1.37 mg/dL High 0.70-1.30 [facility] Comment on above: The validity of the calculated GFR & GFRAA in patients over 70 years has not been determined. Clinical correlation is essential. Serum or plasma urea nitroge n measurement (mass/volume)Ordered By: Jigna Brantley on 07-23-2024 Urea nitrogen [Mass/Vol] 22 mg/dL High 7-18 [facility] Sodium levelOrdered By: Enoch Brantley on 07-23-2024 Sodium [Moles/Vol] 138 mmol/L 136-145 [facility] White blood cell (WBC) count Ordered By: Jigna Brantley on 07-23-2024 WBC (Bld) [#/Vol] 9.6 10*3/uL 4.4-11.0 [facility] Absolute lymphocyte countOrd ered By: Jigna Brantley on 07-16-2024 Lymphocytes Auto (Unsp spec) [#/Vol] 1.83 10*3/uL 0.83-4.51 [facility] Absolute neutrophil countOrd ered By: Jignabailey Brantley on 07-16-2024 Neutrophils (Bld) [#/Vol] 7.9 10*3/uL High 2.0-7.7 [facility] Automated lymphocyte count a s percentage of total leukocytesOrdered By: Jigna Brantley on 07-16-2024 Lymphocytes/100 WBC Auto (Unsp spec) 17.2 % Low 19-41 [facility] Basic Metabolic Profile (BMP )on 07-16-2024 BUN/CRE 18.8 RATIO Normal 10-20 [facility] Comment on above: Order Comment: 206 Performed By: #### L 501.080 #### [facility] [address] [place], [place], [id number] CA,Total 9.3 mg/dL Normal 8.5-10.1 [facility] Comment on above: Order Comment: 206 Performed By: #### L 501.080 #### [facility] [address] [place], [address] Chloride [Moles/Vol] 103 mmol/L Normal 98-107 [facility] Comment on above: Order Comment: 206 Performed By: #### L 501.080 #### [facility] [address] [place], [address] CO2 [Moles/Vol] 27.0 mmol/L Normal 21.0-32.0 [facility] Comment on above: Order Comment: 206 Performed By: #### L 501.080 #### [facility] [address] [place], [address] Creatinine [Mass/Vol] 1.17 mg/dL Normal 0.70-1.30 [facility] Comment on above: Order Comment: 206 Result Comment: The validity of the calculated GFR GFRAA in patients over 70 years has not been determined. Clinical correlation is essential. Performed By: #### L 501.080 #### [facility] [address] [place], [address] EST GFR - AA 80 mL/min Normal >60 [facility] Comment on above: Order Comment: 206 Result Comment: Afri can Mauritian GFR Calc Performed By: #### L 501.080 #### [facility] [address] [place], [address] GAP 9 Normal 5-15 [facility] Comment on above: Order Comment: 206 Performed By: #### L 501.080 #### [facility] [address] [place], [address] GFR/1.73 sq M.predicted among non-blacks MDRD (S/P/Bld) [Vol rate/Area] 66 mL/min/{1.73_m2} Normal >60 [facility] Comment on above: Order Comment: 206 Result Comment: Non- GFR Calc Performed By: #### L 501.080 #### [facility] [address] [place], [address] Glucose [Mass/Vol] 94 mg/dL Normal 74-106 [facility] Comment on above: Order Comment: 206 Performed By: #### L 501.080 #### [facility] [address] [place], [address] Potassium [Moles/Vol] 3.6 mmol/L Normal 3.5-5.1 [facility] Comment on above: Order Comment: 206 Performed By: #### L 501.080 #### [facility] [address] [place], [address] Sodium [Moles/Vol] 139 mmol/L Normal 136-145 [facility] Comment on above: Order Comment: 206 Performed By: #### L 501.080 #### [facility] [address] [place], [address] Urea nitrogen [Mass/Vol] 22 mg/dL High - [facility] Comment on above: Order Comment: 206 Performed By: #### L 501.080 #### [facility] [address] [place], [address] Basophil percentageOrdered B y: Jigna Brantley on 07-16-2024 Basophils/100 WBC (Bld) 0.1 % 0-1 [facility] Blood urea nitrogen (BUN)/cr eatinine ratioOrdered By: Jigna Brantley on 07-16-2024 Urea nitrogen/Creatinine [Mass ratio] 18.8 mg/mg 10-20 [facility] CBC W/Diff, Automatedon 06-30 Absolute Lymph 1.83 X10 3/uL Normal 0.83-4.51 [facility] Comment on above: Order Comment: 206 Performed By: #### L 501.080 #### [facility] [address] [place], [address] Absolute Neut 7.9 X10 3/uL High 2.0-7.7 [facility] Comment on above: Order Comment: 206 Performed By: #### L 501.080 #### [facility] [address] [place], [address] Basophils/100 WBC (Bld) 0.1 % Normal 0-1 [facility] Comment on above: Order Comment: 206 Performed By: #### L 501.080 #### [facility] [address] [place], [address] Eosinophils/100 WBC (Bld) 0.1 % Normal 0-5 [facility] Comment on above: Order Comment: 206 Performed By: #### L 501.080 #### [facility] [address] [place], [address] Erythrocyte distribution width (RBC) [Ratio] 13.2 % Normal 11.6-14.6 [facility] Comment on above: Order Comment: 206 Performed By: #### L 501.080 #### [facility] [address] [place], [address] Hematocrit (Bld) [Volume fraction] 41.3 % Normal 40-54 [facility] Comment on above: Order Comment: 206 Performed By: #### L 501.080 #### [facility] [address] [place], [address] Hemoglobin (Bld) [Mass/Vol] 13.3 g/dL Normal 13.0-16.5 [facility] Comment on above: Order Comment: 206 Performed By: #### L 501.080 #### [facility] [address] [place], [address] IG% 0.700 Normal 0.0-0.9 [facility] Comment on above: Order Comment: 206 Result Comment: IG% - Immature Granulocytes (promyelocytes, myelocytes and metamyelocytes) > 1% indicates that a LEFT SHIFT is Present. Performed By: #### L 501.080 #### [facility] [address] [place], [address] Lymphocytes/100 WBC (Bld) 17.2 % Low 19-41 [facility] Comment on above: Order Comment: 206 Performed By: #### L 501.080 #### [facility] [address] [place], [address] MCH (RBC) [Entitic mass] 29.7 pg Normal 27.0-32.0 [facility] Comment on above: Order Comment: 206 Performed By: #### L 501.080 #### [facility] [address] [place], [address] MCHC (RBC) [Mass/Vol] 32.2 g/dL Normal 32-36 [facility] Comment on above: Order Comment: 206 Performed By: #### L 501.080 #### [facility] [address] [place], [address] MCV (RBC) [Entitic vol] 92.2 fL Normal 80-94 [place] Comment on above: Order Comment: 206 Performed By: #### L 501.080 #### [facility] [address] [place], [address] Monocytes/100 WBC (Bld) 7.6 % Normal 0-10 [facility] Comment on above: Order Comment: 206 Performed By: #### L 501.080 #### [facility] [address] [place], [address] Neutrophils/100 WBC (Bld) 74.3 % High 47-70 [facility] Comment on above: Order Comment: 206 Performed By: #### L 501.080 #### [facility] [address] [place], [address] Nucleated RBC (Bld) [#/Vol] 0 10*3/uL Normal 0-5 [facility] Comment on above: Order Comment: 206 Performed By: #### L 501.080 #### [facility] [address] [place], [address] Platelet mean volume (Bld) [Entitic vol] 10.4 fL Normal 6.2-12.0 [facility] Comment on above: Order Comment: 206 Performed By: #### L 501.080 #### [facility] [address] [place], [address] Platelets (Bld) [#/Vol] 462 10*3/uL High 150-450 [facility] Comment on above: Order Comment: 206 Performed By: #### L 501.080 #### [facility] [address] [place], [address] RBC (Bld) [#/Vol] 4.48 10*6/uL Low 4.6-6.2 [facility] Comment on above: Order Comment: 206 Performed By: #### L 501.080 #### [facility] [address] [place], [address] RDW SD 44.1 fl High 35.1-43.9 [facility] Comment on above: Order Comment: 206 Performed By: #### L 501.080 #### [facility] [address] [place], [address] WBC (Bld) [#/Vol] 10.6 10*3/uL Normal 4.4-11.0 [facility] Comment on above: Order Comment: 206 Performed By: #### L 501.080 #### [facility] [address] [place], [address] Drew 07-16-2024 KVNGN Telephone (FAMWS) REINA SULLIVAN ([id number]) 1955 M Date Time Provider Department 07/16/24 ARIC ZAPIEN During your visit today, we recorded the following information about you: Felicita Bolden MA 07/16/2024 3:30 PM Signed Patient canceled his appointment on 07/12/24 with Isa Stevenson. He was discharged from [facility] on 07/11/24 DX: AFIB RVR, debility. Called and spoke with ex- Flor, his emergency contact, and she said he is in [facility] for rehab with the hopes for permanent [...] unspecified na*09/30/2022 Left atrial enlargement [I51.7] 09/30/2022 assisted current use of 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 *09/30/2022 Migraine [...] Status:Closed by FELICITA BOLDEN on 08/07/24 Normal [facility] Carbon dioxide measurementOr dered By: Jigna Brantley on 07-16-2024 CO2 [Moles/Vol] 27.0 mmol/L 21.0-32.0 [facility] Chloride measurementOrdered By: Jigna Brantley on 07-16-2024 Chloride [Moles/Vol] 103 mmol/L 98-107 [facility] Eosinophil percentageOrdered By: Jigna Brantley on 07-16-2024 Eosinophils/100 WBC (Bld) 0.1 % 0-5 [facility] Erythrocyte distribution wid th (RBC) [Ratio]Ordered By: Jigna Brantley on 07-16-2024 Erythrocyte distribution width (RBC) [Entitic vol] 44.1 fL High 35.1-43.9 [facility] Erythrocyte distribution wid th ratioOrdered By: Jigna Brantley on 07-16-2024 Erythrocyte distribution width (RBC) [Ratio] 13.2 % 11.6-14.6 [facility] Erythrocyte distribution wid th standard deviationOrdered By: Jigna Brantley on 07-16-2024 Erythrocyte distribution width (RBC) [Ratio] 44.1 fl High 35.1-43.9 [facility] Estimated glomerular filtrat ion rate (GFR) AmericanOrdered By: Jigna Brantley on 07-16-2024 Estimated GFR (MDRD) Amer 80 mL/min >60 [facility] Comment on above: GFR Calc Glomerular filtration rate ( GFR) estimationOrdered By: Jigna Brantley on 07-16-2024 Estimated GFR (MDRD) Non-Af Amer 66 mL/min >60 [facility] Comment on above: Non- GFR Calc GFR/1.73 sq M.predicted among non-blacks MDRD (S/P/Bld) [Vol rate/Area] 66 mL/min/{1.73_m2} >60 [facility] Comment on above: Non- GFR Calc Glucose measurementOrdered B y: Jigna Brantley on 07-16-2024 Glucose [Mass/Vol] 94 mg/dL 74-106 [facility] Hematocrit Auto (Bld) [Volum e fraction]Ordered By: Jigna Brantley on 07-16-2024 Hematocrit (Bld) [Volume fraction] 41.3 % 40-54 [facility] Hemoglobin measurementOrdere d By: Jigna Brantley on 07-16-2024 Hemoglobin (Bld) [Mass/Vol] 13.3 g/dL 13.0-16.5 [facility] Immature granulocytes/100 WB C Auto (Bld)Ordered By: Jigna Brantley on 07-16-2024 Immature granulocytes/100 WBC (Bld) 0.700 % 0.0-0.9 [facility] Comment on above: IG% - Immature Granu locytes (promyelocytes, myelocytes and metamyelocytes) > 1% indicates that a LEFT SHIFT is Present. Lymphocytes Auto (Unsp spec) [#/Vol]Ordered By: Jigna Brantley on 07-16-2024 Lymphocytes (Bld) [#/Vol] 1.83 10*3/uL 0.83-4.51 [facility] Lymphocytes/100 WBC Auto (Un sp spec)Ordered By: Jigna Brantley on 07-16-2024 Lymphocytes/100 WBC (Bld) 17.2 % Low 19-41 [facility] MCV (mean corpuscular volume ) determinationOrdered By: Jigna Brantley on 07-16-2024 MCV (RBC) [Entitic vol] 92.2 fL 80-94 [facility] Magnesiumon 07-16-2024 Magnesium [Mass/Vol] 2.7 mg/dL High 1.6-2.6 [facility] Comment on above: Order Comment: 206 Performed By: #### L 501.080 #### [facility] [address] [place] [address], [address] Magnesium measurementOrdered By: Jigna Brantley on 07-16-2024 Magnesium [Mass/Vol] 2.7 mg/dL High 1.6-2.6 [facility] Mean corpuscular hemoglobin (MCH) determinationOrdered By: Jigna Brantley on 07-16-2024 MCH (RBC) [Entitic mass] 29.7 pg 27.0-32.0 [facility] Mean corpuscular hemoglobin concentration (MCHC) determinationOrdered By: Jigna Brantley on 07-16-2024 MCHC (RBC) [Mass/Vol] 32.2 g/dL 32-36 [facility] Mean platelet volume determi nationOrdered By: Jigna Brantley on 07-16-2024 Platelet mean volume (Bld) [Entitic vol] 10.4 fL 6.2-12.0 [facility] Monocyte percentageOrdered B y: Jigna Brantley on 07-16-2024 Monocytes/100 WBC (Bld) 7.6 % 0-10 [facility] Neutrophil percentageOrdered By: Jigna Brantley on 07-16-2024 Neutrophils/100 WBC (Bld) 74.3 % High 47-70 [facility] Nucleated red blood cell per centageOrdered By: Jigna Brantley on 07-16-2024 Nucleated RBC/100 WBC (Bld) [Ratio] 0 % 0-5 [facility] Platelet countOrdered By: Fabricio Brantley on 07-16-2024 Platelets (Bld) [#/Vol] 462 10*3/uL High 150-450 [facility] Potassium measurementOrdered By: Jigna Brantley on 07-16-2024 Potassium [Moles/Vol] 3.6 mmol/L 3.5-5.1 [facility] RBC Auto (Bld) [#/Vol]Ordere d By: Jigna Brantley on 07-16-2024 RBC (Bld) [#/Vol] 4.48 10*6/uL Low 4.6-6.2 [facility] Serum anion gap measurementO rdered By: Jigna Brantley on 07-16-2024 Anion gap [Moles/Vol] 9 mmol/L 5-15 [facility] Serum or plasma calcium rosalina urement (mass/volume)Ordered By: Jigna Brantley on 07-16-2024 Calcium [Mass/Vol] 9.3 mg/dL 8.5-10.1 [facility] Serum or plasma creatinine m easurement (mass/volume)Ordered By: Jigna Brantley on 07-16-2024 Creatinine [Mass/Vol] 1.17 mg/dL 0.70-1.30 [facility] Comment on above: The validity of the calculated GFR & GFRAA in patients over 70 years has not been determined. Clinical correlation is essential. Serum or plasma urea nitroge n measurement (mass/volume)Ordered By: Jigna Brantley on 07-16-2024 Urea nitrogen [Mass/Vol] 22 mg/dL High 7-18 [facility] Sodium levelOrdered By: Enoch Brantley on 07-16-2024 Sodium [Moles/Vol] 139 mmol/L 136-145 [facility] Valproate levelOrdered By: Keo Brantley on 07-16-2024 Valproic Acid (Depakene) Level 71 ug/mL 50-100 [facility] Valproic Acid (Depakene) Lev cecil 07-16-2024 VALPROIC ACID 71 ug/mL Normal 50-100 [facility] Comment on above: Order Comment: 206 Performed By: #### L 501.080 #### [facility] [address] [place] [address], [address] White blood cell (WBC) count Ordered By: Jigna Brantley on 07-16-2024 WBC (Bld) [#/Vol] 10.6 10*3/uL 4.4-11.0 [facility] [id number] DOrdered By: Keo Brantley on 07-12-2024 Vitamin D 25-Hydroxy 6.3 ng/mL [facility] Comment on above: Vitamin D 25(OH) Sta tus Range Deficiency <20 ng/mL (50nmol/L) Insufficiency 20 - 30 ng/mL (50 - 75 nmol/L) Sufficiency 30 - 100 ng/mL (75 - 250 nmol/L) Toxicity >100 ng/mL (>250 nmol/L) Absolute lymphocyte countOrd ered By: Jigna Brantley on 07-12-2024 Lymphocytes Auto (Unsp spec) [#/Vol] 1.79 10*3/uL 0.83-4.51 [facility] Absolute neutrophil countOrd ered By: Jigna Brantley on 07-12-2024 Neutrophils (Bld) [#/Vol] 7.6 10*3/uL 2.0-7.7 [facility] Automated lymphocyte count a s percentage of total leukocytesOrdered By: Jigna Brantley on 07-12-2024 Lymphocytes/100 WBC Auto (Unsp spec) 17.4 % Low 19-41 [facility] Basic Metabolic Profile (BMP )on 07-12-2024 BUN/CRE 21.0 RATIO High 10-20 [facility] Comment on above: Order Comment: . Performed By: #### L 500.4050, L503.6005, L300.8000, L100.0100, L501.5425 #### [facility] [address] [place], [address] CA,Total 9.6 mg/dL Normal 8.5-10.1 [facility] Comment on above: Order Comment: . Performed By: #### L 500.4050, L503.6005, L300.8000, L100.0100, L501.5425 #### [facility] [address] [place], [address] Chloride [Moles/Vol] 104 mmol/L Normal 98-107 [facility] Comment on above: Order Comment: . Performed By: #### L 500.4050, L503.6005, L300.8000, L100.0100, L501.5425 #### [facility] [address] [place], [address] CO2 [Moles/Vol] 32.0 mmol/L Normal 21.0-32.0 [facility] Comment on above: Order Comment: . Performed By: #### L 500.4050, L503.6005, L300.8000, L100.0100, L501.5425 #### [facility] [address] [place], [address] Creatinine [Mass/Vol] 1.19 mg/dL Normal 0.70-1.30 [facility] Comment on above: Order Comment: . Result Comment: The validity of the calculated GFR GFRAA in patients over 70 years has not been determined. Clinical correlation is essential. Performed By: #### L 500.4050, L503.6005, L300.8000, L100.0100, L501.5425 #### [facility] [address] [place], [address] EST GFR - AA 78 mL/min Normal >60 [facility] Comment on above: Order Comment: . Result Comment: Afri can Mauritian GFR Calc Performed By: #### L 500.4050, L503.6005, L300.8000, L100.0100, L501.5425 #### [facility] [address] [place], [address] GAP 5 Normal 5-15 [facility] Comment on above: Order Comment: . Performed By: #### L 500.4050, L503.6005, L300.8000, L100.0100, L501.5425 #### [facility] [address] [place], [address] GFR/1.73 sq M.predicted among non-blacks MDRD (S/P/Bld) [Vol rate/Area] 65 mL/min/{1.73_m2} Normal >60 [facility] Comment on above: Order Comment: . Result Comment: Non- GFR Calc Performed By: #### L 500.4050, L503.6005, L300.8000, L100.0100, L501.5425 #### [facility] [address] [place], [address] Glucose [Mass/Vol] 104 mg/dL Normal 74-106 [facility] Comment on above: Order Comment: . Result Comment: Fast ing Glucose result from 100 to 125 mg/dL suggests IMPAIRED HOMEOSTASIS per A.D.A. criteria. Performed By: #### L 500.4050, L503.6005, L300.8000, L100.0100, L501.5425 #### [facility] [address] [place], [address] Potassium [Moles/Vol] 3.8 mmol/L Normal 3.5-5.1 [facility] Comment on above: Order Comment: 206.1 Performed By: #### L 500.4050, L503.6005, L300.8000, L100.0100, L501.5425 #### [facility] [address] [place], [address] Sodium [Moles/Vol] 141 mmol/L Normal 136-145 [facility] Comment on above: Order Comment: 206.1 Performed By: #### L 500.4050, L503.6005, L300.8000, L100.0100, L501.5425 #### [facility] [address] [place], [address] Urea nitrogen [Mass/Vol] 25 mg/dL High 7-18 [facility] Comment on above: Order Comment: 206.1 Performed By: #### L 500.4050, L503.6005, L300.8000, L100.0100, L501.5425 #### [facility] [address] [place], [address] Basophil percentageOrdered B y: Jigna Brantley on 07-12-2024 Basophils/100 WBC (Bld) 0.2 % 0-1 [facility] Blood urea nitrogen (BUN)/cr eatinine ratioOrdered By: Jigna Brantley on 07-12-2024 Urea nitrogen/Creatinine [Mass ratio] 21.0 mg/mg High 10-20 [facility] CBC W/Diff, Automatedon 06-30 Absolute Lymph 1.79 X10 3/uL Normal 0.83-4.51 [facility] Comment on above: Order Comment: 206.1 Performed By: #### L 500.4050, L503.6005, L300.8000, L100.0100, L501.5425 #### [facility] [address] [place], [address] Absolute Neut 7.6 X10 3/uL Normal 2.0-7.7 [facility] Comment on above: Order Comment: 206.1 Performed By: #### L 500.4050, L503.6005, L300.8000, L100.0100, L501.5425 #### [facility] [address] [place], [address] Basophils/100 WBC (Bld) 0.2 % Normal 0-1 [facility] Comment on above: Order Comment: .1 Performed By: #### L 500.4050, L503.6005, L300.8000, L100.0100, L501.5425 #### [facility] [address] [place], [address] Eosinophils/100 WBC (Bld) 0.0 % Normal 0-5 [facility] Comment on above: Order Comment: .1 Performed By: #### L 500.4050, L503.6005, L300.8000, L100.0100, L501.5425 #### [facility] [address] [place], [address] Erythrocyte distribution width (RBC) [Ratio] 12.8 % Normal 11.6-14.6 [facility] Comment on above: Order Comment: 206.1 Performed By: #### L 500.4050, L503.6005, L300.8000, L100.0100, L501.5425 #### [facility] [address] [place], [address] Hematocrit (Bld) [Volume fraction] 41.3 % Normal 40-54 [facility] Comment on above: Order Comment: 206.1 Performed By: #### L 500.4050, L503.6005, L300.8000, L100.0100, L501.5425 #### [facility] [address] [place], [address] Hemoglobin (Bld) [Mass/Vol] 13.2 g/dL Normal 13.0-16.5 [facility] Comment on above: Order Comment: 206.1 Performed By: #### L 500.4050, L503.6005, L300.8000, L100.0100, L501.5425 #### [facility] [address] [place], [address] IG% 0.600 Normal 0.0-0.9 [facility] Comment on above: Order Comment: .1 Result Comment: IG% - Immature Granulocytes (promyelocytes, myelocytes and metamyelocytes) > 1% indicates that a LEFT SHIFT is Present. Performed By: #### L 500.4050, L503.6005, L300.8000, L100.0100, L501.5425 #### [facility] [address] [place], [address] Lymphocytes/100 WBC (Bld) 17.4 % Low 19-41 [facility] Comment on above: Order Comment: 206.1 Performed By: #### L 500.4050, L503.6005, L300.8000, L100.0100, L501.5425 #### [facility] [address] [place], [address] MCH (RBC) [Entitic mass] 29.9 pg Normal 27.0-32.0 [facility] Comment on above: Order Comment: 206.1 Performed By: #### L 500.4050, L503.6005, L300.8000, L100.0100, L501.5425 #### [facility] [address] [place], [address] MCHC (RBC) [Mass/Vol] 32.0 g/dL Normal 32-36 [facility] Comment on above: Order Comment: 206.1 Performed By: #### L 500.4050, L503.6005, L300.8000, L100.0100, L501.5425 #### [facility] [address] [place], [address] MCV (RBC) [Entitic vol] 93.4 fL Normal 80-94 [facility] Comment on above: Order Comment: 206.1 Performed By: #### L 500.4050, L503.6005, L300.8000, L100.0100, L501.5425 #### [facility] [address] [place], [address] Monocytes/100 WBC (Bld) 8.1 % Normal 0-10 [facility] Comment on above: Order Comment: .1 Performed By: #### L 500.4050, L503.6005, L300.8000, L100.0100, L501.5425 #### [facility] [address] [place], [address] Neutrophils/100 WBC (Bld) 73.7 % High 47-70 [facility] Comment on above: Order Comment: .1 Performed By: #### L 500.4050, L503.6005, L300.8000, L100.0100, L501.5425 #### [facility] [address] [place], [address] Nucleated RBC (Bld) [#/Vol] 0 10*3/uL Normal 0-5 [facility] Comment on above: Order Comment: 206.1 Performed By: #### L 500.4050, L503.6005, L300.8000, L100.0100, L501.5425 #### [facility] [address] [place], [address] Platelet mean volume (Bld) [Entitic vol] 10.7 fL Normal 6.2-12.0 [facility] Comment on above: Order Comment: 206.1 Performed By: #### L 500.4050, L503.6005, L300.8000, L100.0100, L501.5425 #### [facility] [address] [place], [address] Platelets (Bld) [#/Vol] 502 10*3/uL High 150-450 [facility] Comment on above: Order Comment: 206.1 Performed By: #### L 500.4050, L503.6005, L300.8000, L100.0100, L501.5425 #### [facility] [address] [place], [address] RBC (Bld) [#/Vol] 4.42 10*6/uL Low 4.6-6.2 [facility] Comment on above: Order Comment: 206.1 Performed By: #### L 500.4050, L503.6005, L300.8000, L100.0100, L501.5425 #### [facility] [address] [place], [address] RDW SD 44.1 fl High 35.1-43.9 [facility] [facility] Comment on above: Order Comment: 206.1 Performed By: #### L 500.4050, L503.6005, L300.8000, L100.0100, L501.5425 #### [facility] [address] [place], [address] WBC (Bld) [#/Vol] 10.3 10*3/uL Normal 4.4-11.0 [facility] Comment on above: Order Comment: 206.1 Performed By: #### L 500.4050, L503.6005, L300.8000, L100.0100, L501.5425 #### [facility] [address] [place], [address] Carbon dioxide measurementOr dered By: Jigna Brantley on 07-12-2024 CO2 [Moles/Vol] 32.0 mmol/L 21.0-32.0 [facility] Chloride measurementOrdered By: Jigna Brantley on 07-12-2024 Chloride [Moles/Vol] 104 mmol/L 98-107 [facility] Eosinophil percentageOrdered By: Jigna Brantley on 07-12-2024 Eosinophils/100 WBC (Bld) 0.0 % 0-5 [facility] Erythrocyte distribution wid th (RBC) [Ratio]Ordered By: Jigna Brantley on 07-12-2024 Erythrocyte distribution width (RBC) [Entitic vol] 44.1 fL High 35.1-43.9 [facility] Erythrocyte distribution wid th ratioOrdered By: Jigna Brantley on 07-12-2024 Erythrocyte distribution width (RBC) [Ratio] 12.8 % 11.6-14.6 [facility] Erythrocyte distribution wid th standard deviationOrdered By: Jigna Brantley on 07-12-2024 Erythrocyte distribution width (RBC) [Ratio] 44.1 fl High 35.1-43.9 [facility] Estimated glomerular filtrat ion rate (GFR) AmericanOrdered By: iJgna Brantley on 07-12-2024 Estimated GFR (MDRD) Amer 78 mL/min >60 [facility] Comment on above: GFR Calc Glomerular filtration rate ( GFR) estimationOrdered By: Jigna Brantley on 07-12-2024 Estimated GFR (MDRD) Non-Af Amer 65 mL/min >60 [facility] Comment on above: Non- GFR Calc GFR/1.73 sq M.predicted among non-blacks MDRD (S/P/Bld) [Vol rate/Area] 65 mL/min/{1.73_m2} >60 [facility] Comment on above: Non- GFR Calc Glucose measurementOrdered B y: Jigna Brantley on 07-12-2024 Glucose [Mass/Vol] 104 mg/dL 74-106 [facility] Comment on above: Fasting Glucose resu lt from 100 to 125 mg/dL suggests IMPAIRED HOMEOSTASIS per A.D.A. criteria. Hematocrit Auto (Bld) [Volum e fraction]Ordered By: Jigna Brantley on 07-12-2024 Hematocrit (Bld) [Volume fraction] 41.3 % 40-54 [facility] Hemoglobin A1con 07-12-2024 HbA1c (Bld) [Mass fraction] 6.2 % High 3.8-5.6 [facility] Comment on above: Order Comment: 1 Y Result Comment: Norm al < 5.7 % Prediabetic 5.7 - 6.4 % Diabetic >or= 6.5 % Please note range changes. Performed By: #### L 500.4050, L503.6005, L300.8000, L100.0100, L501.5425 #### [facility] [address] [place], [address] Hemoglobin A1c percentageOrd ered By: Jigna Brantley on 07-12-2024 HbA1c (Bld) [Mass fraction] 6.2 % High 3.8-5.6 [facility] Comment on above: Normal < 5.7 % Predi abetic 5.7 - 6.4 % Diabetic >or= 6.5 % Please note range changes. Hemoglobin measurementOrdere d By: Jigna Brantley on 07-12-2024 Hemoglobin (Bld) [Mass/Vol] 13.2 g/dL 13.0-16.5 [facility] Immature granulocytes/100 WB C Auto (Bld)Ordered By: Jigna Brantley on 07-12-2024 Immature granulocytes/100 WBC (Bld) 0.600 % 0.0-0.9 [facility] Comment on above: IG% - Immature Granu locytes (promyelocytes, myelocytes and metamyelocytes) > 1% indicates that a LEFT SHIFT is Present. Lymphocytes Auto (Unsp spec) [#/Vol]Ordered By: Jigna Brantley on 07-12-2024 Lymphocytes (Bld) [#/Vol] 1.79 10*3/uL 0.83-4.51 [facility] Lymphocytes/100 WBC Auto (Un sp spec)Ordered By: Jigna Brantley on 07-12-2024 Lymphocytes/100 WBC (Bld) 17.4 % Low 19-41 [facility] MCV (mean corpuscular volume ) determinationOrdered By: Jigna Brantley on 07-12-2024 MCV (RBC) [Entitic vol] 93.4 fL 80-94 [facility] Magnesiumon 07-12-2024 Magnesium [Mass/Vol] 2.7 mg/dL High 1.6-2.6 [facility] Comment on above: Order Comment: 1 Y Performed By: #### L 500.4050, L503.6005, L300.8000, L100.0100, L501.5425 #### [facility] [address] [place], [address] Magnesium measurementOrdered By: Jigna Brantley on 07-12-2024 Magnesium [Mass/Vol] 2.7 mg/dL High 1.6-2.6 [facility] Mean corpuscular hemoglobin (MCH) determinationOrdered By: Jigna Brantley on 07-12-2024 MCH (RBC) [Entitic mass] 29.9 pg 27.0-32.0 [facility] Mean corpuscular hemoglobin concentration (MCHC) determinationOrdered By: Jigna Brantley on 07-12-2024 MCHC (RBC) [Mass/Vol] 32.0 g/dL 32-36 [facility] Mean platelet volume determi nationOrdered By: Jigna Brantley on 07-12-2024 Platelet mean volume (Bld) [Entitic vol] 10.7 fL 6.2-12.0 [facility] Monocyte percentageOrdered B y: Jigna Brantley on 07-12-2024 Monocytes/100 WBC (Bld) 8.1 % 0-10 [facility] Neutrophil percentageOrdered By: Jigna Brantley on 07-12-2024 Neutrophils/100 WBC (Bld) 73.7 % High 47-70 [facility] Nucleated red blood cell per centageOrdered By: Jigna Brantley on 07-12-2024 Nucleated RBC/100 WBC (Bld) [Ratio] 0 % 0-5 [facility] Platelet countOrdered By: Fabricio Brantley on 07-12-2024 Platelets (Bld) [#/Vol] 502 10*3/uL High 150-450 [facility] Potassium measurementOrdered By: Jigna Brantley on 07-12-2024 Potassium [Moles/Vol] 3.8 mmol/L 3.5-5.1 [facility] RBC Auto (Bld) [#/Vol]Ordere d By: Jigna Brantley on 07-12-2024 RBC (Bld) [#/Vol] 4.42 10*6/uL Low 4.6-6.2 [facility] Serum anion gap measurementO rdered By: Jigna Brantley on 07-12-2024 Anion gap [Moles/Vol] 5 mmol/L 5-15 [facility] Serum or plasma calcium rosalina urement (mass/volume)Ordered By: Jigna Brantley on 07-12-2024 Calcium [Mass/Vol] 9.6 mg/dL 8.5-10.1 [facility] Serum or plasma creatinine m easurement (mass/volume)Ordered By: Jigna Brantley on 07-12-2024 Creatinine [Mass/Vol] 1.19 mg/dL 0.70-1.30 [facility] Comment on above: The validity of the calculated GFR & GFRAA in patients over 70 years has not been determined. Clinical correlation is essential. Serum or plasma thyroid stim ulating hormone (TSH) measurement (units/volume)Ordered By: Jigna Brantley on 07-12-2024 TSH Qn 2.960 uIU/mL 0.358-3.740 [facility] Serum or plasma urea nitroge n measurement (mass/volume)Ordered By: Jigna Brantley on 07-12-2024 Urea nitrogen [Mass/Vol] 25 mg/dL High 7-18 [facility] Sodium levelOrdered By: Enoch Brantley on 07-12-2024 Sodium [Moles/Vol] 141 mmol/L 136-145 [facility] TSH QnOrdered By: Jigna jefferson on 07-12-2024 Thyroid Stimulating Hormone (TSH) 2.960 uIU/mL 0.358-3.740 [facility] Thyroid Stim Hormone (TSH)on 07-12-2024 TSH 2.960 uIU/mL Normal 0.358-3.740 [facility] Comment on above: Order Comment: 1 Y Performed By: #### L 500.4050, L503.6005, L300.8000, L100.0100, L501.5425 #### [facility] [address] [place], [address] Vitamin B12on 07-12-2024 Cobalamin (Vitamin B12) [Mass/Vol] 273 pg/mL Normal 211-911 [facility] Comment on above: Order Comment: 206.1 Performed By: #### L 500.4050, L503.6005, L300.8000, L100.0100, L501.5425 #### [facility] [address] [place], [address] Vitamin B12 measurementOrder ed By: Jigna Brantley on 07-12-2024 Cobalamin (Vitamin B12) [Mass/Vol] 273 pg/mL 211-911 [facility] Vitamin D,25 Hydroxyon 07-12 Vitamin D 25-OH 6.3 ng/mL Normal [facility] Comment on above: Order Comment: 206.1 Result Comment: Divine min D 25(OH) Status Range Deficiency <20 ng/mL (50nmol/L) Insufficiency 20 - 30 ng/mL (50 - 75 nmol/L) Sufficiency 30 - 100 ng/mL (75 - 250 nmol/L) Toxicity >100 ng/mL (>250 nmol/L) Performed By: #### L 500.4050, L503.6005, L300.8000, L100.0100, L501.5425 #### [facility] [address] [place], [address] White blood cell (WBC) count Ordered By: Jigna Brantley on 07-12-2024 WBC (Bld) [#/Vol] 10.3 10*3/uL 4.4-11.0 [facility] Bedside Glucoseon 07-11-2024 FINGERSTICK GLU 138 mg/dL High 74-106 [facility] Comment on above: Result Comment: KARUNA FELIX OF PATIENT CARE PER NURSING PROTOCOL Performed By: #### L 500.4050, L503.6005, L300.8000, L100.0100, L501.5425 #### [facility] [address] [place], [address] FINGERSTICK GLU 185 mg/dL High 74-106 [facility] Comment on above: Result Comment: KARUNA GEMENT OF PATIENT CARE PER NURSING PROTOCOL Performed By: #### L 500.4050, L503.6005, L300.8000, L100.0100, L501.5425 #### [facility] [address] [place], [address] FINGERSTICK GLU 105 mg/dL Normal -[address] [place] [address] Comment on above: Result Comment: KARUNA GEMENT OF PATIENT CARE PER NURSING PROTOCOL Performed By: #### L 500.4050, L503.6005, L300.8000, L100.0100, L501.5425 #### [facility] [address] [place], [address] [facility] deOrdered By: Yann Ascencio on 07-11-2024 Bedside Glucose (Misc Panel) 138 mg/dL High [address] [place] [address] Comment on above: MANAGEMENT OF PATIEN T CARE PER NURSING PROTOCOL Glucose [Mass/Vol] 138 mg/dL High 74-106 [facility] Comment on above: MANAGEMENT OF PATIEN T CARE PER NURSING PROTOCOL Absolute lymphocyte countOrd ered By: Yann Ascencio on 07-10-2024 Lymphocytes Auto (Unsp spec) [#/Vol] 0.60 10*3/uL Low 0.83-4.51 [facility] Absolute neutrophil countOrd ered By: Yann Ascencio on 07-10-2024 Neutrophils (Bld) [#/Vol] 7.5 10*3/uL 2.0-7.7 [facility] Automated lymphocyte count a s percentage of total leukocytesOrdered By: Yann Ascencio on 07-10-2024 Lymphocytes/100 WBC Auto (Unsp spec) 6.9 % Low 19-41 [facility] Basic Metabolic Profile (BMP )on 07-10-2024 BUN/CRE 17.5 RATIO Normal 10-20 [facility] Comment on above: Performed By: #### L 500.4050, L503.6005, L300.8000, L100.0100, L501.5425 #### [facility] [address] [place], [address] CA,Total 9.9 mg/dL Normal 8.5-10.1 [facility] Comment on above: Performed By: #### L 500.4050, L503.6005, L300.8000, L100.0100, L501.5425 #### [facility] [address] [place], [address] Chloride [Moles/Vol] 105 mmol/L Normal 98-107 [facility] Comment on above: Performed By: #### L 500.4050, L503.6005, L300.8000, L100.0100, L501.5425 #### [facility] [address] [place], [address] CO2 [Moles/Vol] 25.0 mmol/L Normal 21.0-32.0 [facility] Comment on above: Performed By: #### L 500.4050, L503.6005, L300.8000, L100.0100, L501.5425 #### [facility] [address] [place], [address] Creatinine [Mass/Vol] 1.03 mg/dL Normal 0.70-1.30 [facility] Comment on above: Result Comment: The validity of the calculated GFR GFRAA in patients over 70 years has not been determined. Clinical correlation is essential. Performed By: #### L 500.4050, L503.6005, L300.8000, L100.0100, L501.5425 #### [facility] [address] [place], [address] ECRCL 84.26 ml/min Normal [facility] Comment on above: Performed By: #### L 500.4050, L503.6005, L300.8000, L100.0100, L501.5425 #### [facility] [address] [place], [address] EST GFR - AA 93 mL/min Normal >60 [facility] Comment on above: Result Comment: Afri can Maur[place] GFR Calc Performed By: #### L 500.4050, L503.6005, L300.8000, L100.0100, L501.5425 #### [facility] [address] [place], [address] GAP 8 Normal 5-15 [facility] Comment on above: Performed By: #### L 500.4050, L503.6005, L300.8000, L100.0100, L501.5425 #### [facility] [address] [place], [address] GFR/1.73 sq M.predicted among non-blacks MDRD (S/P/Bld) [Vol rate/Area] 76 mL/min/{1.73_m2} Normal >60 [facility] Comment on above: Result Comment: Non- GFR Calc Performed By: #### L 500.4050, L503.6005, L300.8000, L100.0100, L501.5425 #### [facility] [address] [place], [address] Glucose [Mass/Vol] 142 mg/dL High 74-106 [facility] Comment on above: Result Comment: Fast ing Glucose result greater than or equal to 126 mg/dL suggests DIABETES MELLITUS per A.D.A. criteria. Performed By: #### L 500.4050, L503.6005, L300.8000, L100.0100, L501.5425 #### [facility] [address] [place], [address] Potassium [Moles/Vol] 3.5 mmol/L Normal 3.5-5.1 [facility] Comment on above: Performed By: #### L 500.4050, L503.6005, L300.8000, L100.0100, L501.5425 #### [facility] [address] [place], [address] Sodium [Moles/Vol] 138 mmol/L Normal 136-145 [facility] Comment on above: Performed By: #### L 500.4050, L503.6005, L300.8000, L100.0100, L501.5425 #### [facility] [address] [place], [address] Urea nitrogen [Mass/Vol] 18 mg/dL Normal 7-18 [facility] Comment on above: Performed By: #### L 500.4050, L503.6005, L300.8000, L100.0100, L501.5425 #### [facility] [address] [place], [address] Basophil percentageOrdered B y: Yann Ascencio on 07-10-2024 Basophils/100 WBC (Bld) 0.1 % 0-1 [place] Bedside Glucoseon 07-10-2024 FINGERSTICK GLU 148 mg/dL High 74-106 [facility] Comment on above: Result Comment: KARUNA GEMENT OF PATIENT CARE PER NURSING PROTOCOL Performed By: #### L 500.4050, L503.6005, L300.8000, L100.0100, L501.5425 #### [facility] [address] [place], [address] FINGERSTICK GLU 111 mg/dL High 74-106 [facility] Comment on above: Result Comment: KARUNA GEMENT OF PATIENT CARE PER NURSING PROTOCOL Performed By: #### L 501.080 #### [facility] [address] [place], [address] FINGERSTICK GLU 147 mg/dL High 74-106 [facility] Comment on above: Result Comment: KARUNA GEMENT OF PATIENT CARE PER NURSING PROTOCOL Performed By: #### L 500.4050, L503.6005, L300.8000, L100.0100, L501.5425 #### [facility] [address] [place], [address] FINGERSTICK GLU 136 mg/dL High 74-106 [facility] Comment on above: Result Comment: KARUNA GEMENT OF PATIENT CARE PER NURSING PROTOCOL Performed By: #### L 501.080 #### [facility] [address] [place], [address] Blood urea nitrogen (BUN)/cr eatinine ratioOrdered By: Yann Ascencio on 07-10-2024 Urea nitrogen/Creatinine [Mass ratio] 17.5 mg/mg 10-20 [facility] CBC W/Diff, Automatedon 06-30 PATH REV Reviewed Normal [facility] Comment on above: Result Comment: Neut rophilic leukocytosis. Clinical correlation necessary. Sreekanth Zhou M.D. 07/10/24 AMENDED REPORT 07/10/24 1444 PATH REV previously reported as: September Performed By: #### L 500.4050, L503.6005, L300.8000, L100.0100, L501.5425 #### [facility] [address] [place], [address] Absolute Lymph 0.60 X10 3/uL Low 0.83-4.51 [facility] Comment on above: Performed By: #### L 500.4050, L503.6005, L300.8000, L100.0100, L501.5425 #### [facility] [address] [place], [address] Absolute Neut 7.5 X10 3/uL Normal 2.0-7.7 [facility] Comment on above: Performed By: #### L 500.4050, L503.6005, L300.8000, L100.0100, L501.5425 #### [facility] [address] [place], [address] Basophils/100 WBC (Bld) 0.1 % Normal 0-1 [facility] Comment on above: Performed By: #### L 500.4050, L503.6005, L300.8000, L100.0100, L501.5425 #### [facility] [address] [place], [address] Eosinophils/100 WBC (Bld) 0.0 % Normal 0-5 [facility] Comment on above: Performed By: #### L 500.4050, L503.6005, L300.8000, L100.0100, L501.5425 #### [facility] [address] [place], [address] Erythrocyte distribution width (RBC) [Ratio] 12.9 % Normal 11.6-14.6 [facility] Comment on above: Performed By: #### L 500.4050, L503.6005, L300.8000, L100.0100, L501.5425 #### [facility] [address] [place], [address] Hematocrit (Bld) [Volume fraction] 38.3 % Low 40-54 [facility] Comment on above: Performed By: #### L 500.4050, L503.6005, L300.8000, L100.0100, L501.5425 #### [facility] [address] [place], [address] Hemoglobin (Bld) [Mass/Vol] 12.2 g/dL Low 13.0-16.5 [facility] Comment on above: Performed By: #### L 500.4050, L503.6005, L300.8000, L100.0100, L501.5425 #### [facility] [address] [place], [address] IG% 0.500 Normal 0.0-0.9 [facility] Comment on above: Result Comment: IG% - Immature Granulocytes (promyelocytes, myelocytes and metamyelocytes) > 1% indicates that a LEFT SHIFT is Present. Performed By: #### L 500.4050, L503.6005, L300.8000, L100.0100, L501.5425 #### [facility] [address] [place], [address] Lymphocytes/100 WBC (Bld) 6.9 % Low 19-41 [facility] Comment on above: Performed By: #### L 500.4050, L503.6005, L300.8000, L100.0100, L501.5425 #### [facility] [address] [place], [address] MCH (RBC) [Entitic mass] 30.0 pg Normal 27.0-32.0 [facility] Comment on above: Performed By: #### L 500.4050, L503.6005, L300.8000, L100.0100, L501.5425 #### [facility] [address] [place], [address] MCHC (RBC) [Mass/Vol] 31.9 g/dL Low 32-36 [facility] Comment on above: Performed By: #### L 500.4050, L503.6005, L300.8000, L100.0100, L501.5425 #### [facility] [address] [place], [address] MCV (RBC) [Entitic vol] 94.3 fL High 80-94 [facility] Comment on above: Performed By: #### L 500.4050, L503.6005, L300.8000, L100.0100, L501.5425 #### [facility] [address] [place], [address] Monocytes/100 WBC (Bld) 6.6 % Normal 0-10 [facility] Comment on above: Performed By: #### L 500.4050, L503.6005, L300.8000, L100.0100, L501.5425 #### [facility] [address] [place], [address] Neutrophils/100 WBC (Bld) 85.9 % High 47-70 [facility] Comment on above: Performed By: #### L 500.4050, L503.6005, L300.8000, L100.0100, L501.5425 #### [facility] [address] [place], [address] Nucleated RBC (Bld) [#/Vol] 0 10*3/uL Normal 0-5 [facility] Comment on above: Performed By: #### L 500.4050, L503.6005, L300.8000, L100.0100, L501.5425 #### [facility] [address] [place], [address] Platelet mean volume (Bld) [Entitic vol] 10.9 fL Normal 6.2-12.0 [facility] Comment on above: Performed By: #### L 500.4050, L503.6005, L300.8000, L100.0100, L501.5425 #### [facility] [address] [place], [address] Platelets (Bld) [#/Vol] 300 10*3/uL Normal 150-450 [facility] Comment on above: Performed By: #### L 500.4050, L503.6005, L300.8000, L100.0100, L501.5425 #### [facility] [address] [place], [address] RBC (Bld) [#/Vol] 4.06 10*6/uL Low 4.6-6.2 [facility] Comment on above: Performed By: #### L 500.4050, L503.6005, L300.8000, L100.0100, L501.5425 #### [facility] [address] [place], [address] RDW SD 44.8 fl High 35.1-43.9 [facility] Comment on above: Performed By: #### L 500.4050, L503.6005, L300.8000, L100.0100, L501.5425 #### [facility] [address] [place], [address] WBC (Bld) [#/Vol] 8.7 10*3/uL Normal 4.4-11.0 [facility] Comment on above: Performed By: #### L 500.4050, L503.6005, L300.8000, L100.0100, L501.5425 #### [facility] [address] [place], [address] Carbon dioxide measurementOr dered By: Yann Ascencio on 07-10-2024 CO2 [Moles/Vol] 25.0 mmol/L 21.0-32.0 [facility] Chloride measurementOrdered By: Yann Ascencio on 07-10-2024 Chloride [Moles/Vol] 105 mmol/L 98-107 [facility] Eosinophil percentageOrdered By: Yann Ascencio on 07-10-2024 Eosinophils/100 WBC (Bld) 0.0 % 0-5 [facility] Erythrocyte distribution wid th (RBC) [Ratio]Ordered By: Yann Ascencio on 07-10-2024 Erythrocyte distribution width (RBC) [Entitic vol] 44.8 fL High 35.1-43.9 [facility] Erythrocyte distribution wid th ratioOrdered By: Yann Ascencio on 07-10-2024 Erythrocyte distribution width (RBC) [Ratio] 12.9 % 11.6-14.6 [facility] Erythrocyte distribution wid th standard deviationOrdered By: Yann Ascencio on 07-10-2024 Erythrocyte distribution width (RBC) [Ratio] 44.8 fl High 35.1-43.9 [facility] Estimated glomerular filtrat ion rate (GFR) AmericanOrdered By: Yann Ascencio on 07-10-2024 Estimated GFR (MDRD) Amer 93 mL/min >60 [facility] Comment on above: GFR Calc Estimation of creatinine karlee aranceOrdered By: Yann Ascencio on 07-10-2024 Estimated Creatinine Clearance Calc 84.26 ml/min [facility] Glomerular filtration rate ( GFR) estimationOrdered By: Yann Ascencio on 07-10-2024 Estimated GFR (MDRD) Non-Af Amer 76 mL/min >60 [facility] Comment on above: Non- GFR Calc GFR/1.73 sq M.predicted among non-blacks MDRD (S/P/Bld) [Vol rate/Area] 76 mL/min/{1.73_m2} >60 [facility] Comment on above: Non- GFR Calc Glucose measurementOrdered B y: Yann Ascencio on 07-10-2024 Glucose [Mass/Vol] 142 mg/dL High 74-106 [facility] Comment on above: Fasting Glucose resu lt greater than or equal to 126 mg/dL suggests DIABETES MELLITUS per A.D.A. criteria. Hematocrit Auto (Bld) [Volum e fraction]Ordered By: Yann Ascencio on 07-10-2024 Hematocrit (Bld) [Volume fraction] 38.3 % Low 40-54 [facility] Hemoglobin A1con 07-10-2024 HbA1c (Bld) [Mass fraction] 6.0 % High 3.8-5.6 [facility] Comment on above: Result Comment: Norm al < 5.7 % Prediabetic 5.7 - 6.4 % Diabetic >or= 6.5 % Please note range changes. Performed By: #### L 500.7330, L503.6005, L300.8000, L100.0100, L501.5998 #### [facility] [address] [place], [address] Hemoglobin A1c percentageOrd ered By: Yann Ascencio on 07-10-2024 HbA1c (Bld) [Mass fraction] 6.0 % High 3.8-5.6 [facility] Comment on above: Normal < 5.7 % Predi abetic 5.7 - 6.4 % Diabetic >or= 6.5 % Please note range changes. Hemoglobin measurementOrdere d By: Yann Ascencio on 07-10-2024 Hemoglobin (Bld) [Mass/Vol] 12.2 g/dL Low 13.0-16.5 [facility] Immature granulocytes/100 WB C Auto (Bld)Ordered By: Yann Ascencio on 07-10-2024 Immature granulocytes/100 WBC (Bld) 0.500 % 0.0-0.9 [facility] Comment on above: IG% - Immature Granu locytes (promyelocytes, myelocytes and metamyelocytes) > 1% indicates that a LEFT SHIFT is Present. Lymphocytes Auto (Unsp spec) [#/Vol]Ordered By: Yann Ascencio on 07-10-2024 Lymphocytes (Bld) [#/Vol] 0.60 10*3/uL Low 0.83-4.51 [facility] Lymphocytes/100 WBC Auto (Un sp spec)Ordered By: Yann Ascencio on 07-10-2024 Lymphocytes/100 WBC (Bld) 6.9 % Low 19-41 [facility] MCV (mean corpuscular volume ) determinationOrdered By: Yann Ascencio on 07-10-2024 MCV (RBC) [Entitic vol] 94.3 fL High 80-94 [facility] Mean corpuscular hemoglobin (MCH) determinationOrdered By: Yann Ascencio on 07-10-2024 MCH (RBC) [Entitic mass] 30.0 pg 27.0-32.0 [facility] Mean corpuscular hemoglobin concentration (MCHC) determinationOrdered By: Yann Ascencio on 07-10-2024 MCHC (RBC) [Mass/Vol] 31.9 g/dL Low 32-36 [facility] Mean platelet volume determi nationOrdered By: aYnn Ascencio on 07-10-2024 Platelet mean volume (Bld) [Entitic vol] 10.9 fL 6.2-12.0 [facility] Monocyte percentageOrdered B y: Yann Ascencio on 07-10-2024 Monocytes/100 WBC (Bld) 6.6 % 0-10 [facility] Neutrophil percentageOrdered By: Yann Ascencio on 07-10-2024 Neutrophils/100 WBC (Bld) 85.9 % High 47-70 [facility] Nucleated red blood cell per centageOrdered By: Yann Ascencio on 07-10-2024 Nucleated RBC/100 WBC (Bld) [Ratio] 0 % 0-5 [facility] Platelet countOrdered By: Damien Ascencio on 07-10-2024 Platelets (Bld) [#/Vol] 300 10*3/uL 150-450 [facility] Potassium measurementOrdered By: Yann Ascencio on 07-10-2024 Potassium [Moles/Vol] 3.5 mmol/L 3.5-5.1 [facility] RBC Auto (Bld) [#/Vol]Ordere d By: Yann Ascencio on 07-10-2024 RBC (Bld) [#/Vol] 4.06 10*6/uL Low 4.6-6.2 [facility] Serum anion gap measurementO rdered By: Yann Ascencio on 07-10-2024 Anion gap [Moles/Vol] 8 mmol/L 5-15 [facility] Serum or plasma calcium rosalina urement (mass/volume)Ordered By: Yann Ascencio on 07-10-2024 Calcium [Mass/Vol] 9.9 mg/dL 8.5-10.1 [facility] Serum or plasma creatinine m easurement (mass/volume)Ordered By: Yann Ascencio on 07-10-2024 Creatinine [Mass/Vol] 1.03 mg/dL 0.70-1.30 [facility] Comment on above: The validity of the calculated GFR & GFRAA in patients over 70 years has not been determined. Clinical correlation is essential. Serum or plasma urea nitroge n measurement (mass/volume)Ordered By: Yann Ascencio on 07-10-2024 Urea nitrogen [Mass/Vol] 18 mg/dL 7-18 [facility] Sodium levelOrdered By: Yann Ascencio on 07-10-2024 Sodium [Moles/Vol] 138 mmol/L 136-145 [facility] White blood cell (WBC) count Ordered By: Yann Ascencio on 07-10-2024 WBC (Bld) [#/Vol] 8.7 10*3/uL 4.4-11.0 [facility] 12 Lead EKGon 07-09-2024 12 Lead EKG [facility] Cardiovascular Services [address] [place] [address] 12 Lead EKG 07/09/24 0825 MR#: [id number] Acct: [id number] Name: REINA SULLIVAN Rep #: [id number] : 1955 69 From: Олег Andrade MD Attending Dr: Dr. Yann Ascencio DO Status: ADM IN Ordering Dr: Priscilla Reynaga MD Date: 07/09/24 Location: [facility] Sex: M C Admitted: 07/09/24 Test Reason [...] abnormality Abnormal ECG Confirmed by Олег Andrade ([id number]), development editor MARLENE CAMP ([id number]) on 07/10/2024 10:05:21 AM Referred By: MELY Confirmed By: Олег Andrade 07/10/24 1005 Date Олег Andrade MD CC: Dr. Priscilla Reynaga MD; Dr. Yann Ascencio DO; Dr. Aric Zapien MD Signed Normal [facility] Albumin to globulin ratioOrd ered By: Priscilla Reynaga on 07-09-2024 Albumin/Globulin [Mass ratio] 0.7 {ratio} Low 0.9-2.4 [facility] Ankle min 3 Viewson 07-09-19 25 Ankle min 3 Views [facility] Imaging Services [address] [place] [address] Ankle min 3 Views MR#: [id number] Acct: [id number] Name: REINA SULLIVAN Rep #: [id number] : 1955 M 69 From: Roscoe emmanuel MD PCP: Dr. Aric Zapien MD Status: REG ER Study: Ankle min 3 Views Date of Exam: 07/09/24 Exam# [id number] Ordering Dr: Priscilla Reynaga MD EXAM: ANKLE MIN 3 VIEWS CLINICAL HISTORY: Pain following injury. COMPARISON: None. TECHNIQUE: Three views were obtained. FINDINGS: Diffuse soft tissue swelling. No fracture is seen. Small plantar spur. RAD/Ankle min 3 Views IMPRESSION: Diffuse soft tissue swelling. Reading Location: [place] [address] CC: Dr. Priscilla Reynaga MD; Dr. Aric Zapien MD Lye Treater: Signed Normal [facility] Bedside Glucoseon 07-09-2024 FINGERSTICK GLU 132 mg/dL High 74-106 [facility] Comment on above: Result Comment: KARUNA GEMENT OF PATIENT CARE PER NURSING PROTOCOL Performed By: #### L 501.080 #### [facility] [address] [place], [address] FINGERSTICK GLU 152 mg/dL High 74-106 [facility] Comment on above: Result Comment: KARUNA GEMENT OF PATIENT CARE PER NURSING PROTOCOL Performed By: #### L 500.4050, L503.6005, L300.8000, L100.0100, L501.5425 #### [facility] [address] [place], [address] FINGERSTICK GLU 109 mg/dL High 74-106 [facility] Comment on above: Result Comment: KARUNA GEMENT OF PATIENT CARE PER NURSING PROTOCOL Performed By: #### L 500.4050, L503.6005, L300.8000, L100.0100, L501.5425 #### [facility] [address] [place], [address] Bilirubin Test strip Ql (U)O rdered By: Priscilla Reynaga on 07-09-2024 Bilirubin Ql (U) 1 mg/dL High Negative [facility] Comment on above: COLOR OF URINE MAY A FFECT DIPSTICK RESULTS. Bilirubin, totalOrdered By: Priscilla Reynaga on 07-09-2024 Bilirubin [Mass/Vol] 0.80 mg/dL 0.20-1.00 [facility] Comment on above: For patients on eltr ombopag therapy, use of Dimension [place] TBIL is not recommended. Chest 1 View (Portable)on Chest 1 View (Portable) [facility] Imaging Services [address] [place], [place] [id number] Chest 1 View (Portable) MR#: [id number] Acct: [id number] Name: REINA SULLIVAN Rep #: [id number] : 1955 M 69 From: Jeffy Belle PCP: Dr. Aric Zapien MD Status: REG ER Study: Chest 1 View (Portable) Date of Exam: 07/09/24 Exam# [id number] Ordering Dr: Priscilla Reynaga MD PROCEDURE: CHEST [...] acute osseous process is seen. Reading Location: [address] CC: Dr. Priscilla Reynaga MD; Dr. Aric Zapien MD Lye Treater: Signed Normal [facility] Comprehensive Metabolic Prof ilon 07-09-2024 Albumin [Mass/Vol] 2.9 g/dL Low 3.2-5.0 [facility] Comment on above: Performed By: #### L 500.4050, L503.6005, L300.8000, L100.0100, L501.5425 #### [facility] [address] [place], [address] Albumin/Globulin [Mass ratio] 0.7 {ratio} Low 0.9-2.4 [facility] Comment on above: Performed By: #### L 500.4050, L503.6005, L300.8000, L100.0100, L501.5425 #### [facility] [address] [place], [address] ALK P 68 U/L Normal 45-117 [facility] Comment on above: Performed By: #### L 500.4050, L503.6005, L300.8000, L100.0100, L501.5425 #### [facility] [address] [place], [address] ALT [Catalytic activity/Vol] 16 U/L Normal 16-61 [facility] Comment on above: Performed By: #### L 500.4050, L503.6005, L300.8000, L100.0100, L501.5425 #### [facility] [address] [place], [address] AST [Catalytic activity/Vol] 11 U/L Low 15-37 [facility] Comment on above: Performed By: #### L 500.4050, L503.6005, L300.8000, L100.0100, L501.5425 #### [facility] [address] [place], [address] Bilirubin [Mass/Vol] 0.80 mg/dL Normal 0.20-1.00 [facility] Comment on above: Result Comment: For patients on eltrombopag therapy, use of Dimension [place] TBIL is not recommended. Performed By: #### L 500.4050, L503.6005, L300.8000, L100.0100, L501.5425 #### [facility] [address] [place], [address] BUN/CRE 14.5 RATIO Normal 10-20 [facility] Comment on above: Performed By: #### L 500.4050, L503.6005, L300.8000, L100.0100, L501.5425 #### [facility] [address] [place], [address] CA,Total 9.3 mg/dL Normal 8.5-10.1 [facility] Comment on above: Performed By: #### L 500.4050, L503.6005, L300.8000, L100.0100, L501.5425 #### [facility] [address] [place], [address] Chloride [Moles/Vol] 104 mmol/L Normal 98-107 [facility] Comment on above: Performed By: #### L 500.4050, L503.6005, L300.8000, L100.0100, L501.5425 #### [facility] [address] [place], [address] CO2 [Moles/Vol] 27.0 mmol/L Normal 21.0-32.0 [facility] Comment on above: Performed By: #### L 500.4050, L503.6005, L300.8000, L100.0100, L501.5425 #### [facility] [address] [place], [address] Creatinine [Mass/Vol] 1.38 mg/dL High 0.70-1.30 [facility] Comment on above: Result Comment: The validity of the calculated GFR GFRAA in patients over 70 years has not been determined. Clinical correlation is essential. Performed By: #### L 500.4050, L503.6005, L300.8000, L100.0100, L501.5425 #### [facility] [address] [place], [address] ECRCL 66.83 ml/min Normal [facility] Comment on above: Performed By: #### L 500.4050, L503.6005, L300.8000, L100.0100, L501.5425 #### [facility] [address] [place], [address] EST GFR - AA 66 mL/min Normal >60 [facility] Comment on above: Result Comment: Afri can Maur[place] GFR Calc Performed By: #### L 500.4050, L503.6005, L300.8000, L100.0100, L501.5425 #### [facility] [address] [place], [address] GAP 10 Normal 5-15 [facility] Comment on above: Performed By: #### L 500.4050, L503.6005, L300.8000, L100.0100, L501.5425 #### [facility] [address] [place], [address] GFR/1.73 sq M.predicted among non-blacks MDRD (S/P/Bld) [Vol rate/Area] 55 mL/min/{1.73_m2} Low >60 [facility] Comment on above: Result Comment: Non- GFR Calc Performed By: #### L 500.4050, L503.6005, L300.8000, L100.0100, L501.5425 #### [facility] [address] [place], [address] Globulin (S) [Mass/Vol] 4.4 g/dL High 2.2-4.2 [facility] Comment on above: Performed By: #### L 500.4050, L503.6005, L300.8000, L100.0100, L501.5425 #### [facility] [address] [place], [address] Glucose [Mass/Vol] 117 mg/dL High 74-106 [facility] Comment on above: Result Comment: Fast ing Glucose result from 100 to 125 mg/dL suggests IMPAIRED HOMEOSTASIS per A.D.A. criteria. Performed By: #### L 500.4050, L503.6005, L300.8000, L100.0100, L501.5425 #### [facility] [address] [place], [address] Potassium [Moles/Vol] 3.1 mmol/L Low 3.5-5.1 [facility] Comment on above: Performed By: #### L 500.4050, L503.6005, L300.8000, L100.0100, L501.5425 #### [facility] [address] [place], [address] Sodium [Moles/Vol] 141 mmol/L Normal 136-145 [facility] Comment on above: Performed By: #### L 500.4050, L503.6005, L300.8000, L100.0100, L501.5425 #### [facility] [address] [place], [address] T PROT 7.3 g/dL Normal 6.4-8.2 [facility] Comment on above: Performed By: #### L 500.4050, L503.6005, L300.8000, L100.0100, L501.5425 #### [facility] [address] [place], [address] Urea nitrogen [Mass/Vol] 20 mg/dL High 7-18 [facility] Comment on above: Performed By: #### L 500.4050, L503.6005, L300.8000, L100.0100, L501.5425 #### [facility] [address] [place], [address] D-Dimer Quantitative (DVT/PE )on 07-09-2024 D-DIMER QUANT 1.11 FEU/ug/m Invalid Interpretation Code 0.27-0.49 [facility] Comment on above: Result Comment: D-Di phillip ELEVATED (>0.49): Additional studies and clinical assessments are indicated to conclude diagnosis of: Deep Vein Thrombosis (DVT) or Pulmonary Embolism (PE) CRITICAL VALUE CALLED TO Reddy CHRISTIE 07/09/24 0925 Vesta Gutierrez. RESULTS READ BACK BY . Performed By: #### L 500.4050, L503.6005, L300.8000, L100.0100, L501.5425 #### [facility] [address] [place], [place], [address] D-dimer measurement for deep venous thrombosisOrdered By: Priscilla Reynaga on 07-09-2024 D-Dimer Quantitative (PE/DVT) 1.11 FEU/ug/m High 0.27-0.49 [facility] Comment on above: D-Dimer ELEVATED (>0 .49): Additional studies and clinicalassessments are indicated to conclude diagnosis of:Deep Vein Thrombosis (DVT) or Pulmonary Embolism (PE)CRITICAL VALUE CALLED TO Reddy CHRISTIE07/09/24 0925 Vesta Gutierrez.RESULTS READ BACK BY . Echo Completeon 07-09-2024 Echo Complete [facility] Cardiovascular Services [address] [place] [address] Echo Complete 07/10/24 0827 MR#: [id number] Acct: [id number] Name: REINA SULLIVAN Rep #: [id number] : 1955 69 From: Estuardo Irby MD Attending Dr: Dr. Yann Ascencio DO Status: ADM IN Ordering Dr: Yann Ascencio DO Date: 07/09/24 Location: [facility] Sex: M C Admitted: 07/09/24 Reason For [...] Physician: Aric Zapien Performed By: Ann-Marie Cao, RDCS, RVT 07/10/24 1453 Date Estuardo Irby MD CC: Dr. Yann Ascencio DO; Dr. Aric Zapien MD Date Dictated: 07/10/24826 Date Transcribed: 07/10/241452 Lye Treater: Signed Keshav [facility] Emergency Department Summary on 07-09-2024 Emergency Department Summary [facility] Medical Records Department [address] [place] [address] Emergency Department Summary 07/09/24 MR#: [id number] Acct: [id number] Name: REINA SULLIVAN Rep #: [id number] : 1955 69 From: Priscilla Reynaga MD PCP: Dr. Aric Zapien MD Status:[facility] ER Location: ED HPI History of [...] or syncope. Prior similar symptoms: Yes PFSH [facility] Medical History Essential hypertension Hx of thyroiditis Type 2 diabetes mellitus TIA (transient ischemic attack) CA (myocardial infarction) Hyperlipidemia Atrial fibrillation with rapid [...] 11/17/22 Unknown Hi story blood pressure test kit-[facility] #1 ea 06/23/23 Unknown Rx diltiazem [...] Rate: tachycard (more content not included)... Normal [facility] Epithelial cells.renal LM.HP F (Urine sed) [#/Area]Ordered By: Priscilla Reynaga on 07-09-2024 Urine Renal Epithelial Cells 0-5 SEEN /hpf 0-5 [facility] Epithelial cells.squamous LM Ql (Urine sed)Ordered By: rPiscilla Reynaga on 07-09-2024 Epithelial cells.squamous LM.HPF (Urine sed) [#/Area] 0 /[HPF] 0-5 [facility] Fine Granular Casts LM.LPF ( Urine sed) [#/Area]Ordered By: Priscilla Reynaga on 07-09-2024 Urine Fine Granular Casts 0-5 SEEN /lpf 0-5 [facility] Foot min 3 Viewson 5 Foot min 3 Views [facility] Imaging Services [address] [place] [address] Foot min 3 Views MR#: [id number] Acct: [id number] Name: REINA SULLIVAN Rep #: [id number] : 1955 M 69 From: Roscoe emmanuel MD PCP: Dr. Aric Zapien MD Status: REG ER Study: Foot min 3 Views Date of Exam: 07/09/24 Exam# [id number] Ordering Dr: Priscilla Reynaga MD EXAM: FOOT MIN 3 VIEWS CLINICAL HISTORY: Pain following injury. COMPARISON: None TECHNIQUE: Three views were obtained. FINDINGS: Diffuse dorsal soft tissue swelling. RAD/Foot min 3 Views IMPRESSION: Diffuse dorsal soft tissue swelling. Reading Location: [place] [address] CC: Dr. Priscilla Reynaga MD; Dr. Aric Zapien MD Lye Treater: Signed Normal [facility] Glucose Ql (U)Ordered By: Dmitry Reynaga on 07-09-2024 Urine Glucose (UA) Normal mg/dl Normal [facility] H AND P Exam - Hospitaliston 07-09-2024 H&P Exam - Hospitalist [facility] Medical Records Department [address] [place] [address] H P Exam - Hospitalist 07/09/24 1039 MR#: [id number] Acct: [id number] Name: REINA SULLIVAN Rep #: [id number] : 1955 69 From: Yann Ascencio DO PCP: Dr. Aric Zapien MD Status:ADM IN Location: [facility] [id number] HPI - General General Date of Service: [...] morning due to the severe ankle pain. [facility] Medical History Essential hypertension Hx of thyroiditis Type 2 diabetes mellitus TIA (transient ischemic attack) CA (myocardial infarction) Hyperlipidemia Atrial fibrillation with rapid [...] tablet 40 mg PO DAILY 11/17/22 Unknown Mi story blood pressure test kit-[facility] #1 ea 06/23/23 Unknown Rx diltiazem [...] Capillary Re (more content not included)... Normal [facility] Hyaline casts LM.LPF (Urine sed) [#/Area]Ordered By: Priscilla Reynaga on 07-09-2024 Hyaline casts (Urine sed) [#/Area] 5 /[LPF] 0-5 [facility] Hyaline casts LM Ql (Urine sed) 5-10 SEEN /lpf 0-5 [facility] Ketones Test strip Ql (U)Ord ered By: Priscilla Reynaga on 07-09-2024 Ketones Ql (U) 50 mg/dl High Negative [facility] L501.4020on 07-09-2024 TROPONIN-I HS 18 pg/mL Normal 3.0-78.0 [facility] Comment on above: Order Comment: 'TROP ' Serial specimen #1, #2 or #3: 3 Result Comment: Plevereince se Note: New Test Units and Gender Specific Reference Ranges. For more information see Policy Stat Procedure [place] High Sensitivity Troponin (TNIH) and attachments. Performed By: #### L 500.4050, L503.6005, L300.8000, L100.0100, L501.5425 #### [facility] [address] [place], [address] TROPONIN-I HS 18 pg/mL Normal 3.0-78.0 [facility] Comment on above: Result Comment: Cristina harris Note: New Test Units and Gender Specific Reference Ranges. For more information see Policy Stat Procedure [place] High Sensitivity Troponin (TNIH) and attachments. Performed By: #### L 501.080 #### [facility] [address] [place], [address] L501.5425on 07-09-2024 TROPONIN-I HS 15 pg/mL Normal 3.0-78.0 [facility] Comment on above: Order Comment: 1 Y Result Comment: Pleverenice se Note: New Test Units and Gender Specific Reference Ranges. For more information see Policy Stat Procedure [place] High Sensitivity Troponin (TNIH) and attachments. Performed By: #### L 500.4050, L503.6005, L300.8000, L100.0100, L501.5425 #### [facility] [address] [place], [address] Laboratory - Chemistry and C hemistry - challengeOrdered By: Priscilla Reynaga on 07-09-2024 AST [Catalytic activity/Vol] 11 U/L Low 15-37 [facility] Lactic Acidon 07-09-2024 Lactate [Moles/Vol] 1.4 mmol/L Normal 0.4-1.9 [facility] Comment on above: Order Comment: Y Performed By: #### L 500.4050, L503.6005, L300.8000, L100.0100, L501.5435 #### [facility] [place] [address], [address] Lactic acid measurementOrder ed By: Priscilla Reynaga on 07-09-2024 Lactate [Moles/Vol] 1.4 mmol/L 0.4-2.0 [facility] Microscopic analysis of urin e for red blood cells (RBC)Ordered By: Priscilla Reynaga on 07-09-2024 Microscopic analysis of urine for red blood cells (RBC) 0-5 SEEN /hpf 0-5 [facility] Urine RBC 0-5 SEEN /hpf 0-5 [facility] Mucus LM Ql (Urine sed)Order ed By: Priscilla Reynaga on 07-09-2024 Mucus Ql (Urine sed) 1+ /hpf [facility] Nitrite Test strip Ql (U)Ord ered By: Priscilla Reynaga on 07-09-2024 Nitrite Ql (U) Negative Negative [facility] Pathologist review Ramses (Unsp spec) [Interp]Ordered By: Priscilla Reynaga on 07-09-2024 Differential Pathologist's Review Reviewed [facility] Comment on above: Previous reported re sult: May foll Edited by: SODNRA on 07/10/24:1444Neutrophilic leukocytosis.Clinical correlation necessary.Sreekanth Zhou M.D. 07/10/24 AMENDED REPORT 07/10/24 1444 PATH REV previously reported as: September cherelle Protein Test strip Ql (U)Ord ered By: Priscilla Reynaga on 07-09-2024 Protein Ql (U) 100 mg/dl High Negative [facility] Review by pathologistOrdered By: Priscilla Reynaga on 07-09-2024 Pathologist review Ramses (Unsp spec) [Interp] Reviewed [facility] Comment on above: Previous reported re sult: May foll Edited by: SONDRA on 07/10/24:1444Neutrophilic leukocytosis.Clinical correlation necessary.Sreekanth Zhou M.D. 07/10/24 AMENDED REPORT 07/10/24 1444 PATH REV previously reported as: Arlene villarreal Serum globulin measurementOr dered By: Priscilla Reynaga on 07-09-2024 Globulin (S) [Mass/Vol] 4.4 g/dL High 2.2-4.2 [facility] Serum or plasma alanine chatterjee otransferase (ALT) measurementOrdered By: Priscilla Reynaga on 07-09-2024 ALT [Catalytic activity/Vol] 16 U/L 16-61 [facility] Serum or plasma albumin rosalina urement (mass/volume)Ordered By: Priscilla Reynaga on 07-09-2024 Albumin [Mass/Vol] 2.9 g/dL Low 3.2-5.0 [facility] Serum or plasma alkaline elvis sphatase measurementOrdered By: Priscilla Reynaga on 07-09-2024 ALP [Catalytic activity/Vol] 68 U/L 45-117 [facility] Serum or plasma uric acid me asurement (mass/volume)Ordered By: Yann Ascencio on 07-09-2024 Urate [Mass/Vol] 7.5 mg/dL High 3.5-7.2 [facility] Comment on above: The drugs N-Acetylcy steine and Metamizole may falsely depress this assay. Squamous epithelial cells de tection in urine sediment by light microscopyOrdered By: Priscilla Reynaga on 07-09-2024 Epithelial cells.squamous LM Ql (Urine sed) 0 SEEN /hpf 0-5 [facility] Total proteinOrdered By: Taj Reynaga on 07-09-2024 Protein [Mass/Vol] 7.3 g/dL 6.4-8.2 [facility] Troponin IOrdered By: Yann gandara on 07-09-2024 Troponin I 18 pg/mL 3.0-78.0 [facility] Comment on above: Please Note: New Yudith t Units and Gender Specific Reference Ranges. For more information see Policy Stat Procedure [place] High Sensitivity Troponin (TNIH) and attachments. Troponin I High Sensitivity 18 pg/mL 3.0-78.0 [facility] Comment on above: Please Note: New Yudith t Units and Gender Specific Reference Ranges. For more information see Policy Stat Procedure [place] High Sensitivity Troponin (TNIH) and attachments. Uric Acidon 07-09-2024 URIC 7.5 mg/dL High 3.5-7.2 [facility] Comment on above: Result Comment: The drugs N-Acetylcysteine and Metamizole may falsely depress this assay. Performed By: #### L 500.4050, L503.6005, L300.8000, L100.0100, L501.5425 #### [facility] [address] [place], [address] Urinalysis, Completeon 07-09 CAST,WBC 0-5 SEEN Normal None Seen [facility] Comment on above: Order Comment: TORI CTOR TO SPECIFY Performed By: #### L 501.080 #### [facility] [address] [place], [address] CAST,FINE GRAN 0-5 SEEN Normal 0-5 [facility] Comment on above: Order Comment: TORI CTOR TO SPECIFY Performed By: #### L 501.080 #### [facility] [address] [place], [address] CAST,HYALINE 5-10 SEEN Normal 0-5 [facility] Comment on above: Order Comment: TORI CTOR TO SPECIFY Performed By: #### L 501.080 #### [facility] [address] [place], [address] EPI,RENAL 0-5 SEEN Normal 0-5 [facility] Comment on above: Order Comment: TORI CTOR TO SPECIFY Performed By: #### L 501.080 #### [facility] [address] [place], [address] Mucus Ql (Urine sed) 1+ /hpf Normal [facility] Comment on above: Order Comment: TORI CTOR TO SPECIFY Performed By: #### L 501.080 #### [facility] [address] [place], [address] RBC 0-5 SEEN Normal 0-5 [facility] Comment on above: Order Comment: TORI CTOR TO SPECIFY Performed By: #### L 501.080 #### [facility] [address] [place], [address] WBC 0-5 SEEN Normal 0-5 [facility] Comment on above: Order Comment: TORI CTOR TO SPECIFY Performed By: #### L 501.080 #### [facility] [address] [place], [address] BACTERIA 0 SEEN Normal None Seen [facility] Comment on above: Order Comment: TORI CTOR TO SPECIFY Performed By: #### L 501.080 #### [facility] [address] [place], [address] EPI,SQUAMOUS 0 SEEN Normal 0-5 [facility] Comment on above: Order Comment: TORI CTOR TO SPECIFY Performed By: #### L 501.080 #### [facility] [address] [place], [address] Urine blood detectionOrdered By: Priscilla Reynaga on 07-09-2024 Urine Occult Blood 10 /ul High Negative [facility] Urine clarityOrdered By: Taj Reynaga on 07-09-2024 Clarity (U) Clear Clear [facility] Urine color determinationOrd ered By: Priscilla Reynaga on 07-09-2024 Color (U) Yellow Yellow [facility] Urine glucose detectionOrder ed By: Priscilla Reynaga on 07-09-2024 Glucose Ql (U) Normal mg/dl Normal [facility] Urine leukocyte esterase det ection by dipstickOrdered By: Priscilla Reynaga on 07-09-2024 Leukocyte esterase Test strip Ql (U) 25 /ul High Negative [facility] Urine pHOrdered By: Priscilla snider on 07-09-2024 pH (U) 6.0 [pH] 5.0 - 8.0 [facility] Urine sediment bacteria coun t by microscopy (number/high power field)Ordered By: Priscilla Reynaga on 07-09-2024 Bacteria LM.HPF (Urine sed) [#/Area] 0 /[HPF] None Seen [facility] Urine sediment fine granular cast count by microscopy (number/low power field)Ordered By: Priscilla Reynaga on 07-09-2024 Fine Granular Casts LM.LPF (Urine sed) [#/Area] 0-5 SEEN /lpf 0-5 [facility] Urine sediment leukocyte yanira t count by microscopy (number/low power field)Ordered By: Priscilla Reynaga on 07-09-2024 WBC casts LM.LPF (Urine sed) [#/Area] 0-5 SEEN /lpf None Seen [facility] Urine sediment renal epithel ial cell count by microscopy (number/high power field)Ordered By: Priscilla Reynaga on 07-09-2024 Epithelial cells.renal LM.HPF (Urine sed) [#/Area] 0 /[HPF] 0-5 [facility] Urine specific gravity measu rementOrdered By: Priscilla Reynaga on 07-09-2024 Specific gravity (U) [Rel density] 1.020 1.002-1.030 [facility] Urine urobilinogen measureme ntOrdered By: Priscilla Reynaga on 07-09-2024 Urobilinogen Ql (U) 1 mg/dl High Normal [facility] Urobilinogen Ql (U)Ordered B y: Priscilla Reynaga on 07-09-2024 Urobilinogen (U) [Mass/Vol] 1 mg/dL High Normal [facility] Venous Duplex US - Noam Extre mon 07-09-2024 Venous Duplex US - Noam Extrem [facility] Cardiovascular Services [address] [place] [address] Venous Duplex US - Noam Extrem 07/09/24 1014 MR#: [id number] Acct: [id number] Name: REINA SULLIVAN Rep #: [id number] : 1955 69 From: Yann Miller MD Attending Dr: Dr. Yann Ascencio DO Status: ADM IN Ordering Dr: Priscilla Reynaga MD Date: 07/09/24 Location: [facility] Sex: M C Admitted: 07/09/24 Reason For [...] Dictated: 07/09/24 1014 Date Transcribed: 07/10/24 1556 Lye Treater: Signed Normal [facility] WBC casts LM.LPF (Urine sed) [#/Area]Ordered By: Priscilla Reynaga on 07-09-2024 Urine White Blood Cell Casts 0-5 SEEN /lpf None Seen [facility] White blood cell countOrdere d By: Priscilla Reynaga on 07-09-2024 Urine WBC 0-5 SEEN /hpf 0-5 [facility] White blood cell count 0-5 SEEN /hpf 0-5 [facility] CNPNon 06-26-2024 CNPN Telephone (NEAGCLM) REINA SULLIVAN ([id number]) 1955 M Date Time Provider Department 06/26/24 [...] unspecified na*09/30/2022 Left atrial enlargement [I51.7] 09/30/2022 assisted current use of 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 *09/30/2022 Migraine [...] on 06/26/24 [facility] [employer] (FAM[facility] REINA SULLIVAN ([id number]) 1955 M Date Time Provider Department 06/25/24 [facility] During your visit today, we recorded the following information about you: Florinda Stevenson, [employer] 06/25/2024 7:58 AM Signed Please let patient [...] Halima Sullivan. 06/16/24 telephone encounter routed to [facility] for back, neck, and spine pool again for scheduling consultation with orthopaedic ear nose and throat specialist. Felicita Bolden MA 06/25/2024 11:52 AM [...] unspecified na*09/30/2022 Left atrial enlargement [I51.7] 09/30/2022 assisted current use of 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 *09/30/2022 Migraine [...] Status:Closed by FELICITA BOLDEN on 06/25/24 Normal [facility] ALBUMIN/CREATININE RATIO, UR INEon 06-22-2024 Albumin DL <= 20 mg/L (U) [Mass/Vol] 223.9 mg/L Normal [facility] Comment on above: Order Comment: Speci men Type: URINE SPECIMENOrdering Facility: [facility] Address: [address] [place] [address] Performed By: #### U ACR ####[facility] LABCLIA [id number] [place] [address] [place] Albumin/Creatinine (U) [Mass ratio] 262 mg/g High <30 [facility] Comment on above: Order Comment: Speci men Type: URINE SPECIMENOrdering Facility: [facility] Address: [address] [place] [address] Result Comment: Adul t Male and Female Nephrotic Criteria: <30 mg/g is considered normal to mildly increased 30-300 mg/g is considered moderately increased >300 mg/g is considered severely increased KDIGO. (2013). KDIGO 2012 Clinical Practice Guideline for the Evaluation and Management of Chronic Kidney Disease. Official Journal of the International Society of Nephrology, 3(1), 1-150. Performed By: #### U ACR ####[facility] LABIA [id number] [place] [address] [place] Creatinine (U) [Mass/Vol] 85.6 mg/dL Normal 20.0-300.0 [facility] Comment on above: Order Comment: Speci men Type: URINE SPECIMENOrdering Facility: [facility] Address: [address] [place] [address] Performed By: #### U ACR ####[facility] LABIA [id number] [place] [id number] [place] CBC W Auto Differential pane l (Bld)on 06-22-2024 Basophils (Bld) [#/Vol] 0.09 10*3/uL Normal <0.11 [facility] Comment on above: Order Comment: Speci men Type: BLOOD SPECIMENOrdering Facility: [facility] Address: [address] [place] [address] Performed By: #### 5 7021-8 ####[facility] LABCLIA [id number] [place] [address] [place] Basophils/100 WBC (Bld) 0.8 % Normal [facility] Comment on above: Order Comment: Speci men Type: BLOOD SPECIMENOrdering Facility: [facility] Address: [address] [place] [address] Performed By: #### 5 7021-8 ####[facility] LABCLIA [id number] [place] [address] [place] Differential cell count method Nom (Bld) Auto Normal [facility] Comment on above: Order Comment: Speci men Type: BLOOD SPECIMENOrdering Facility: [facility] Address: [address] [place] [address] Performed By: #### 5 7021-8 ####[facility] LABCLIA [id number] [place] [address] [place] Eosinophils (Bld) [#/Vol] 0.07 10*3/uL Normal <0.46 [facility] Comment on above: Order Comment: Speci men Type: BLOOD SPECIMENOrdering Facility: [facility] Address: [address] [place] [address] Performed By: #### 5 7021-8 ####[facility] LABCLIA [id number] [place] [address] [place] Eosinophils/100 WBC (Bld) 0.7 % Normal [facility] Comment on above: Order Comment: Speci men Type: BLOOD SPECIMENOrdering Facility: [facility] Address: [address] [place] [address] Performed By: #### 5 7021-8 ####[facility] LABCLIA [id number] [place] [address] [place] Erythrocyte distribution width (RBC) [Ratio] 13.5 % Normal 11.5-15.0 [facility] Comment on above: Order Comment: Speci men Type: BLOOD SPECIMENOrdering Facility: [facility] Address: [address] [place] [address] Performed By: #### 5 7021-8 ####[facility] LABCLIA [id number] [place] [address] [place] Hematocrit (Bld) [Volume fraction] 45.6 % Normal 39.0-51.0 [facility] Comment on above: Order Comment: Speci men Type: BLOOD SPECIMENOrdering Facility: [facility] Address: [address] [place] [address] Performed By: #### 5 7021-8 ####[facility] LABCLIA [id number] [place] [address] [place] Hemoglobin (Bld) [Mass/Vol] 14.9 g/dL Normal 13.0-17.0 [facility] Comment on above: Order Comment: Speci men Type: BLOOD SPECIMENOrdering Facility: [facility] Address: [address] [place] [address] Performed By: #### 5 7021-8 ####[facility] LABCLIA [id number] [place] [address] [place] Immature granulocytes (Bld) [#/Vol] 0.13 10*3/uL High <0.10 [facility] Comment on above: Order Comment: Speci men Type: BLOOD SPECIMENOrdering Facility: [facility] Address: [address] [place] [address] Performed By: #### 5 7021-8 ####[facility] LABCLIA [id number] [place] [address] [place] Immature granulocytes/100 WBC (Bld) 1.2 % Normal [facility] Comment on above: Order Comment: Speci men Type: BLOOD SPECIMENOrdering Facility: [facility] Address: [address] [place] [address] Performed By: #### 5 7021-8 ####[facility] LABCLIA [id number] [place] [address] [place] Lymphocytes (Bld) [#/Vol] 1.87 10*3/uL Normal 1.00-4.00 [facility] Comment on above: Order Comment: Speci men Type: BLOOD SPECIMENOrdering Facility: [facility] Address: [address] [place] [address] Performed By: #### 5 7021-8 ####[facility] LABCLIA [id number] [place] [address] [place] Lymphocytes/100 WBC (Bld) 17.4 % Normal [facility] Comment on above: Order Comment: Speci men Type: BLOOD SPECIMENOrdering Facility: [facility] Address: [address] [place] [address] Performed By: #### 5 7021-8 ####[facility] LABIA [id number] [place] [address] [place] MCH (RBC) [Entitic mass] 30.8 pg Normal 26.0-34.0 [facility] Comment on above: Order Comment: Speci men Type: BLOOD SPECIMENOrdering Facility: [facility] Address: [address] [place] [address] Performed By: #### 5 7021-8 ####[facility] LABIA [id number] [place] [address] [place] MCHC (RBC) [Mass/Vol] 32.7 g/dL Normal 30.5-36.0 [facility] Comment on above: Order Comment: Speci men Type: BLOOD SPECIMENOrdering Facility: [facility] Address: [address] [place] [address] Performed By: #### 5 7021-8 ####[facility] LABIA [id number] [place] [address] [place] MCV (RBC) [Entitic vol] 94.2 fL Normal 80.0-100.0 C [facility] Comment on above: Order Comment: Speci men Type: BLOOD SPECIMENOrdering Facility: [facility] Address: [address] [place] [address] Performed By: #### 5 7021-8 ####[facility] LABCLIA [id number] [place] [address] [place] Monocytes (Bld) [#/Vol] 0.96 10*3/uL High <0.87 [facility] Comment on above: Order Comment: Speci men Type: BLOOD SPECIMENOrdering Facility: [facility] Address: [address] [place] [address] Performed By: #### 5 7021-8 ####[facility] LABCLIA [id number] [place] [address] [place] Monocytes/100 WBC (Bld) 8.9 % Normal [facility] Comment on above: Order Comment: Speci men Type: BLOOD SPECIMENOrdering Facility: [facility] Address: [address] [place] [address] Performed By: #### 5 7021-8 ####[facility] LABCLIA [id number] [place] [address] [place] Neutrophils (Bld) [#/Vol] 7.61 10*3/uL High 1.45-7.50 [facility] Comment on above: Order Comment: Speci men Type: BLOOD SPECIMENOrdering Facility: [facility] Address: [address] [place] [address] Performed By: #### 5 7021-8 ####[facility] LABCLIA [id number] [place] [address] [place] Neutrophils/100 WBC (Bld) 71.0 % Normal [facility] Comment on above: Order Comment: Speci men Type: BLOOD SPECIMENOrdering Facility: [facility] Address: [address] [place] [address] Performed By: #### 5 7021-8 ####[facility] LABCLIA [id number] [place] [address] [place] Nucleated RBC (Bld) [#/Vol] 10*3/uL Normal <0.01 [facility] Comment on above: Order Comment: Speci men Type: BLOOD SPECIMENOrdering Facility: [facility] Address: [address] [place] [address] Performed By: #### 5 7021-8 ####[facility] LABCLIA [id number] [place] [address] [place] Nucleated RBC/100 WBC (Bld) [Ratio] 0.0 /100 WBC Normal [facility] Comment on above: Order Comment: Speci men Type: BLOOD SPECIMENOrdering Facility: [facility] Address: [address] [place] [address] Performed By: #### 5 7021-8 ####[facility] LABIA [id number] [place] [address] [place] Platelet mean volume (Bld) [Entitic vol] 10.8 fL Normal 9.0-12.7 [facility] Comment on above: Order Comment: Speci men Type: BLOOD SPECIMENOrdering Facility: [facility] Address: [address] [place] [address] Performed By: #### 5 7021-8 ####[facility] LABIA [id number] [place] [address] [place] Platelets (Bld) [#/Vol] 422 10*3/uL High 150-400 [facility] Comment on above: Order Comment: Speci men Type: BLOOD SPECIMENOrdering Facility: [facility] Address: [address] [place] [address] Performed By: #### 5 7021-8 ####[facility] LABCLIA [id number] [place] [address] [place] RBC (Bld) [#/Vol] 4.84 10*6/uL Normal 4.20-6.00 [facility] Comment on above: Order Comment: Speci men Type: BLOOD SPECIMENOrdering Facility: [facility] Address: [address] [place] [address] Performed By: #### 5 7021-8 ####[facility] LABCLIA [id number] [place] [address] [place] WBC (Bld) [#/Vol] 10.73 10*3/uL Normal 3.70-11.00 [facility] Comment on above: Order Comment: Speci men Type: BLOOD SPECIMENOrdering Facility: [facility] Address: [address] [place] [address] Performed By: #### 5 7021-8 ####[facility] LABCLIA [id number] [address] [place] CNOVon 06-22-2024 CNOV Office Visit (FAMPWS ) REINA SULLIVAN ([id number]) 1955 M Date Time Provider Department 06/22/24 1:20 PM FLORINDA STEVENSON FAMPWS During your visit today, we recorded the following information about you: Temperature Pulse Blood pressure 97.8 degrees 88/minute 118/76 Florinda Stevenson, CIRCUS ARTIST.HOME HEALTH CNA 06/22/2024 2:00 PM Signed This is a [...] MEDICAL HISTORY Diagnosis Date Atrial fibrillation ([facility]) Dr. 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 Huston TBI (traumatic brain injury) ([facility]) 2 times PAST SURGICAL HISTORY Procedure Laterality [...] without long-term current use of insulin ([facility]) - ICD9: 250.00, ICD10: E11.9 (primary diagnosis) [...] x da (more content not included)... Normal [facility] Drew 06-22-2024 CNPN Telephone (FAMPWS) REINA SULLIVAN ([id number]) 1955 M Date Time Provider Department 06/22/24 [...] schedule patient appropriately. BROOKLYN Malone Jacqueline A, APRN.HOME HEALTH CNA 06/22/2024 5:04 PM Signed Yes. An orthopedic ear nose and throat specialist. Does not need surgery but they can evaluate for kyphoplasty- setting the compression if needed Allergies As of Date: 06/22/2024 Noted Allergy Reaction DYE 03/02/2016 14 - Other: See Comments Comments: used for heart cath Date Reviewed: 06/22/2024 Reviewed by: Felicita Bolden MA - Fully Assessed Reason for Visit: Patient Question [0618] Prescriptions as of 06/22/2024 - methocarbamol (ROBAXIN) [...] unspecified na*09/30/2022 Left atrial enlargement [I51.7] 09/30/2022 assisted current use of 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 *09/30/2022 Migraine [...] Status:Closed by FELICITA BOLDEN on 06/22/24 Normal [facility] Comprehensive metabolic 2000 panelon 06-22-2024 Albumin [Mass/Vol] 4.2 g/dL Normal 3.9-4.9 [facility] Comment on above: Order Comment: Speci men Type: BLOOD SPECIMENOrdering Facility: [facility] Address: [address] [place] [address] Performed By: #### 2 4323-8, 99034-1, LIPNF, 6-4 ####[facility] LABCLIA [id number] [place] [address] [place] ALP [Catalytic activity/Vol] 124 U/L High 38-113 [facility] Comment on above: Order Comment: Speci men Type: BLOOD SPECIMENOrdering Facility: [facility] Address: [address] [place] [address] Performed By: #### 2 4323-8, 10865-0, LIPNF, 2275-4 ####[facility] LABCLIA [id number] [place] [address] [place] ALT [Catalytic activity/Vol] 19 U/L Normal 10-54 [facility] Comment on above: Order Comment: Speci men Type: BLOOD SPECIMENOrdering Facility: [facility] Address: [address] [place] [address] Performed By: #### 2 4323-8, 04897-2, LIPNF, 6-4 ####[facility] LABCLIA [id number] [place] [address] [place] Anion gap [Moles/Vol] 15 mmol/L Normal 8-15 [facility] Comment on above: Order Comment: Speci men Type: BLOOD SPECIMENOrdering Facility: [facility] Address: [address] [place] [address] Performed By: #### 2 4323-8, 34071-7, LIPNF, 2276-4 ####[facility] LABCLIA [id number] [place] [address] [place] AST [Catalytic activity/Vol] 19 U/L Normal 14-40 [facility] Comment on above: Order Comment: Speci men Type: BLOOD SPECIMENOrdering Facility: [facility] Address: [address] [place] [address] Performed By: #### 2 4323-8, 40591-5, LIPNF, 6-4 ####[facility] LABCLIA [id number] [place] [address] [place] Bilirubin [Mass/Vol] 0.7 mg/dL Normal 0.2-1.3 [facility] Comment on above: Order Comment: Speci men Type: BLOOD SPECIMENOrdering Facility: [facility] Address: [address] [place] [address] Performed By: #### 2 4323-8, 75762-8, LIPNF, 2275-4 ####[facility] LABCLIA [id number] [place] [address] [place] Calcium [Mass/Vol] 9.2 mg/dL Normal 8.5-10.2 [facility] Comment on above: Order Comment: Speci men Type: BLOOD SPECIMENOrdering Facility: [facility] Address: [address] [place] [address] Performed By: #### 2 4323-8, 64693-5, LIPNF, 6-4 ####[facility] LABCLIA [id number] [place] [address] [place] Chloride [Moles/Vol] 102 mmol/L Normal 98-107 [facility] Comment on above: Order Comment: Speci men Type: BLOOD SPECIMENOrdering Facility: [facility] Address: [address] [place] [address] Performed By: #### 2 4323-8, 04949-8, LIPNF, 6-4 ####[facility] LABCLIA [id number] [place] [address] [place] CO2 [Moles/Vol] 23 mmol/L Normal 22-30 [facility] Comment on above: Order Comment: Speci men Type: BLOOD SPECIMENOrdering Facility: [facility] Address: [address] [place] [address] Performed By: #### 2 4323-8, 76866-7, LIPYAMILET, 6-4 ####[facility] LABCLIA [id number] [place] [address] [place] Creatinine [Mass/Vol] 1.42 mg/dL High 0.73-1.22 [facility] Comment on above: Order Comment: Speci men Type: BLOOD SPECIMENOrdering Facility: [facility] Address: [address] [place] [address] Performed By: #### 2 4323-8, 94489-7, ANA, 2275-4 ####[facility] LABIA [id number] [place] [address] [place] Creatinine and Glomerular filtration rate.predicted panel (S/P/Bld) 54 mL/min/1.73m??? Low >=60 [facility] Comment on above: Order Comment: Speci men Type: BLOOD SPECIMENOrdering Facility: [facility] Address: [address] [place] [address] Result Comment: Tatiana mated Glomerular Filtration Rate [...] actual GFR. Performed By: #### 2 4323-8, 60490-2, LIPNF, 6-4 ####[facility] LABCLIA [id number] [place] [id number] [place] Glucose [Mass/Vol] 86 mg/dL Normal 74-99 [facility] Comment on above: Order Comment: Speci men Type: BLOOD SPECIMENOrdering Facility: [facility] Address: [address] [place] [address] Result Comment: The [place] Diabetes Association (ADA) provides guidance for cutoff [...] Standards of Medical Care in Diabetes 2016, [place] Diabetes Association. Diabetes Care. 2016.39(Suppl 1). Performed By: #### 2 4323-8, 08202-0, LIPNF, 2275-4 ####[facility] LABCLIA [id number] [facility] [place] [place] [address] [place] Potassium [Moles/Vol] 4.2 mmol/L Normal 3.7-5.1 [facility] Comment on above: Order Comment: Speci men Type: BLOOD SPECIMENOrdering Facility: [facility] Address: [address] [place] [address] Performed By: #### 2 4323-8, 57754-6, LIPNF, 2275-4 ####[facility] LABCLIA [id number] [facility] [id number] [place] [address] [place] Protein [Mass/Vol] 7.1 g/dL Normal 6.3-8.0 [facility] Comment on above: Order Comment: Speci men Type: BLOOD SPECIMENOrdering Facility: [facility] Address: [address] [place] [address] Performed By: #### 2 4323-8, 31216-8, LIPNF, 6-4 ####[facility] LABCLIA [id number] [place] [address] [place] Sodium [Moles/Vol] 140 mmol/L Normal 136-144 [facility] Comment on above: Order Comment: Speci men Type: BLOOD SPECIMENOrdering Facility: [facility] Address: [address] [place] [address] Performed By: #### 2 4323-8, 50541-7, LIPNF, 6-4 ####[facility] LABCLIA [id number] [place] [address] [place] Urea nitrogen [Mass/Vol] 22 mg/dL Normal - [facility] Comment on above: Order Comment: Speci men Type: BLOOD SPECIMENOrdering Facility: [facility] Address: [address] [place] [address] Performed By: #### 2 4323-8, 09615-6, LIPNF, 6-4 ####[facility] LABIA [id number] [place] [address] [place] Ferritin SerPl-mCncon 2024 Ferritin [Mass/Vol] 142.0 ng/mL Normal 30.3-565.7 [facility] Comment on above: Order Comment: Speci men Type: BLOOD SPECIMENOrdering Facility: [facility] Address: [address] [place] [address] Performed By: #### 2 4323-8, 95503-6, LIPNF, 6-4 ####[facility] LABIA [id number] [place] [address] [place] HbA1c (Bld)on 06-22-2024 Average glucose Estimated from glycated hemoglobin (Bld) [Mass/Vol] 126 mg/dL Normal [facility] Comment on above: Order Comment: Speci men Type: BLOOD SPECIMENOrdering Facility: [facility] Address: [address] [place] [address] Result Comment: eAG: (Estimated average glucose) is a calculated value from HgbA1c and is sales representative groceries of the average blood glucose level in the last 2-3 month period. Performed By: #### 5 5454-3 ####[facility] LABCLIA [id number] [place] [address] [place] HbA1c (Bld) [Mass fraction] 6.0 % High 4.3-5.6 [facility] Comment on above: Order Comment: Speci men Type: BLOOD SPECIMENOrdering Facility: [facility] Address: [address] [place] [address] Result Comment: [place] Diabetes Association guidelines indicate that patients with HgbA1c in the range 5.7-6.4% are at increased risk for development of diabetes, and intervention by lifestyle modification may be beneficial. HgbA1c greater or equal to 6.5% is considered diagnostic of diabetes. Performed By: #### 5 5454-3 ####[facility]CLIA [id number] [place] [address] [place] Iron and Iron binding capaci ty panelon 06-22-2024 Iron [Mass/Vol] 76 ug/dL Normal 41-186 [facility] Comment on above: Order Comment: Speci men Type: BLOOD SPECIMENOrdering Facility: [facility] Address: [address] [place] [address] Performed By: #### 2 4323-8, 49163-7, LIPNF, 6-4 ####[facility] LABCLIA [id number] [place] [address] [place] Iron binding capacity [Mass/Vol] 345 ug/dL Normal 232-386 [facility] Comment on above: Order Comment: Speci men Type: BLOOD SPECIMENOrdering Facility: [facility] Address: [address] [place] [address] Performed By: #### 2 4323-8, 84343-0, LIPNF, 2276-4 ####[facility] LABCLIA [id number] [place] [address] [place] Iron/TIBC [Molar ratio] 22.0 % Normal 15.0-57.0 [facility] Comment on above: Order Comment: Speci men Type: BLOOD SPECIMENOrdering Facility: [facility] Address: [address] [place] [address] Performed By: #### 2 4323-8, 65037-3, LIPNF, 6-4 ####[facility] LABCLIA [id number] [place] [address] [place] LIPID PANEL, NONFASTINGon Cholesterol [Mass/Vol] 149 mg/dL Normal <200 [facility] Comment on above: Order Comment: Speci men Type: BLOOD SPECIMENOrdering Facility: [facility] Address: [address] [place] [address] Result Comment: <200 mg/dL, Desirable 200-239 mg/dL, Borderline high >239 mg/dL, High Performed By: #### 2 4323-8, 94934-8, LIPNF, 6-4 ####[facility] LABCLIA [id number] [place] [address] [place] HDL CHOLESTEROL, NF 41 mg/dL Normal >39 [facility] Comment on above: Order Comment: Speci men Type: BLOOD SPECIMENOrdering Facility: [facility] Address: [address] [place] [address] Result Comment: 40-5 9 mg/dL, Acceptable >59 mg/dL, High: Negative risk factor for coronary heart disease <40 mg/dL, Low: Positive risk factor for coronary heart disease Performed By: #### 2 4323-8, 37162-3, LIPNF, 6-4 ####[facility] LABCLIA [id number] [place] [address] [place] LDL CHOLESTEROL, NF 88 mg/dL Normal <100 [facility] Comment on above: Order Comment: Speci men Type: BLOOD SPECIMENOrdering Facility: [facility] Address: [address] [place] [address] Result Comment: <100 mg/dL, Optimal 100-129 mg/dL, Near optimal/above optimal 130-159 mg/dL, Borderline high 160-189 mg/dL, High >189 mg/dL, Very high Secondary prevention optimal LDL Cholesterol levels are recommended to be < 70 mg/dL Performed By: #### 2 4323-8, 13009-4, LIPNF, 2275-4 ####[facility] LABCLIA [id number] OF [facility] LDL/HDL RATIO, NF 2.15 mg/dL Normal <2.54 [facility] Comment on above: Order Comment: Lynn men Type: BLOOD SPECIMENOrdering Facility: [facility] Address: [address] [place] [address] Result Comment: Refesperanza burgosce: 1. National Cholesterol Education Program ATP III Guideline At-A-Glance Quick Desk Reference: National Heart, Lung, and Blood [place]. National Institutes of Health. 2001: NIH Publication No. 01-3305. 2. An International Atherosclerosis Society position paper: global recommendations for the management of dyslipidemia: executive summary, Atherosclerosis. 2014: 232(2):410-413. Performed By: #### 2 4323-8, 41099-2, LIPYAMILET, 2275- ####[facility] LABCLIA [id number] [place] NON HDL CHOL, NF 108 mg/dL Normal <130 [facility] Comment on above: Order Comment: Lynn de guzman Type: BLOOD SPECIMENOrdering Facility: [facility] Address: [address] [place] [address] Result Comment: <130 mg/dL, Optimal 130-159 mg/dL, Near optimal/above optimal 160-189 mg/dL, Borderline high 190-219 mg/dL, High >219 mg/dL, Very high Secondary prevention optimal non HDL Cholesterol levels are recommended to be <100 mg/dL Performed By: #### 2 4323-8, 98688-0, LIPNF, 2275-4 ####[facility] LABCLIA [id number] [address] [place] [address] [place] T CHOL/HDL RATIO NF 3.63 mg/dL Normal <5.10 [facility] Comment on above: Order Comment: Speci men Type: BLOOD SPECIMENOrdering Facility: [facility] Address: [address] [place] [address] Performed By: #### 2 4323-8, 52433-5, LIPNF, 2276-4 ####[facility] LABCLIA [id number] [place] [address] [place] TRIGLYCERIDES, NF 99 mg/dL Normal <150 [facility] Comment on above: Order Comment: Speci men Type: BLOOD SPECIMENOrdering Facility: [facility] Address: [address] [place] [address] Result Comment: <150 mg/dL, Normal 150-199 mg/dL, Borderline high 200-499 mg/dL, High >499 mg/dL, Very high Performed By: #### 2 4323-8, 43708-9, LIPNF, 6-4 ####[facility] LABCLIA [id number] [place] [address] [place] VLDL CHOLESTEROL, NF 20 mg/dL Normal <30 [facility] Comment on above: Order Comment: Speci men Type: BLOOD SPECIMENOrdering Facility: [facility] Address: [address] [place] [address] Performed By: #### 2 4323-8, 89491-6, LIPNF, 6-4 ####[facility] LABCLIA [id number] [place] [address] [place] Magnesium SerPl-mCncon 06-22 Magnesium [Mass/Vol] 2.2 mg/dL Normal 1.7-2.3 [facility] Comment on above: Order Comment: Speci men Type: BLOOD SPECIMENOrdering Facility: [facility] Address: [address] [place] [address] Performed By: #### 1 9123-9 ####[facility] LABCLIA [id number] [facility] [id number] [address] [place] URINALYSIS, REFLEX MICROSCOP ICon 06-22-2024 Bacteria LM.HPF (Urine sed) [#/Area] Negative Negative /HPF [facility] Bilirubin Ql (U) Negative Negative [facility] Clarity (Unsp spec) Clear Clear [facility] Color (U) Yellow Yellow [facility] Epithelial cells LM.HPF (Urine sed) [#/Area] None Seen /HPF [facility] Glucose Test strip (U) [Mass/Vol] Negative Negative [facility] Hemoglobin Ql (U) Negative Negative [facility] Hyaline casts (Urine sed) [#/Area] 4-10 /LPF Abnormal 0 /LPF [facility] Interpretation and review of laboratory results Abnormal [facility] Ketones Ql (U) Negative Negative [facility] Leukocyte esterase Test strip Ql (U) Negative Negative [facility] Nitrite Ql (U) Negative Negative [facility] pH (U) 6.0 [pH] NINF - 8.5 [facility] Protein (U) [Mass/Vol] 2+ Abnormal Negative [facility] RBC LM.HPF (Urine sed) [#/Area] 0-2 /HPF 0-2 /HPF [facility] Specific gravity (U) [Rel density] 1.012 1.005 - 1.030 [facility] Urobilinogen Ql (U) 0.2 EU/dL 0.2-1.0 EU/dL [facility] WBC LM.HPF (Urine sed) [#/Area] 0-5 /HPF 0-5 /HPF [facility] This test was developed and its performance characteristics determined by [facility]'s Wyatt JMarisa [facility] Pathology and Laboratory Medicine [place] ([facility]-PLMI). It has not been cleared or approved by the FDA. -[facility] is regulated under CLIA as qualified to perform high-complexity testing. This test is used for clinical purposes. It should not be regarded as investigational or for research. [facility] Bacteria LM.HPF (Urine sed) [#/Area] Negative Normal Negative [facility] Comment on above: Order Comment: Speci men Type: URINE SPECIMENOrdering Facility: [facility] Address: [address] [place] [address] Performed By: #### L [id number] ####[facility] LABCLIA [id number] [place] [address] [place] Bilirubin Ql (U) Negative Normal Negative [facility] Comment on above: Order Comment: Speci men Type: URINE SPECIMENOrdering Facility: [facility] Address: [address] [place] [address] Performed By: #### L [id number] ####[facility] LABCLIA [id number] [place] [address] [place] Clarity (Unsp spec) Clear Normal Clear [facility] Comment on above: Order Comment: Speci men Type: URINE SPECIMENOrdering Facility: [facility] Address: [address] [place] [address] Performed By: #### L [id number] ####[facility] LABCLIA [id number] [place] [address] [place] [facility] Color (U) Yellow Normal Yellow [facility] Comment on above: Order Comment: Speci men Type: URINE SPECIMENOrdering Facility: [facility] Address: [address] [place] [address] Performed By: #### L [id number] ####[facility] LABCLIA [id number] [place] [address] [place] Epithelial cells LM.HPF (Urine sed) [#/Area] None Seen Normal [facility] Comment on above: Order Comment: Speci men Type: URINE SPECIMENOrdering Facility: [facility] Address: [address] [place] [address] Performed By: #### L [id number] ####[facility] LABCLIA [id number] [place] [address] [place] Glucose Test strip (U) [Mass/Vol] Negative Normal Negative [facility] Comment on above: Order Comment: Speci men Type: URINE SPECIMENOrdering Facility: [facility] Address: [address] [place] [address] Performed By: #### L [id number] ####[facility] LABCLIA [id number] [place] [address] [place] Hemoglobin Ql (U) Negative Normal Negative [facility] Comment on above: Order Comment: Speci men Type: URINE SPECIMENOrdering Facility: [facility] Address: [address] [place] [address] Performed By: #### L [id number] ####[facility] LABCLIA [id number] [place] [address] [place] Hyaline casts (Urine sed) [#/Area] 4-10 /LPF Abnormal 0 /LPF [facility] Comment on above: Order Comment: Speci men Type: URINE SPECIMENOrdering Facility: [facility] Address: [address] [place] [address] Performed By: #### L [id number] ####[facility] LABCLIA [id number] [place] [address] [place] Ketones Ql (U) Negative Normal Negative [facility] Comment on above: Order Comment: Speci men Type: URINE SPECIMENOrdering Facility: [facility] Address: [address] [place] [address] Performed By: #### L [id number] ####[facility] LABCLIA [id number] [place] [address] [place] Leukocyte esterase Test strip Ql (U) Negative Normal Negative [facility] Comment on above: Order Comment: Speci men Type: URINE SPECIMENOrdering Facility: [facility] Address: [address] [place] [address] Performed By: #### L [id number] ####[facility] LABCLIA [id number] [place] [address] [place] Nitrite Ql (U) Negative Normal Negative [facility] Comment on above: Order Comment: Speci men Type: URINE SPECIMENOrdering Facility: [facility] Address: [address] [place] [address] Performed By: #### L [id number] ####[facility] LABIA [id number] [place] [address] [place] [facility] pH (U) 6.0 [pH] Normal <8.5 [facility] Comment on above: Order Comment: Speci men Type: URINE SPECIMENOrdering Facility: [facility] Address: [address] [place] [address] Performed By: #### L [id number] ####[facility] LABIA [id number] [place] [address] [place] Protein (U) [Mass/Vol] 2+ Abnormal Negative Cl [facility] Comment on above: Order Comment: Speci men Type: URINE SPECIMENOrdering Facility: [facility] Address: [address] [place] [address] Performed By: #### L [id number] ####[facility] LABIA [id number] [place] [address] [place] RBC LM.HPF (Urine sed) [#/Area] 0-2 /HPF Normal 0-2 /HPF [facility] Comment on above: Order Comment: Speci men Type: URINE SPECIMENOrdering Facility: [facility] Address: [address] [place] [address] Performed By: #### L [id number] ####[facility] LABIA [id number] [place] [address] [place] Specific gravity (U) [Rel density] 1.012 Normal 1.005-1.030 [facility] Comment on above: Order Comment: Speci men Type: URINE SPECIMENOrdering Facility: [facility] Address: [address] [place] [address] Performed By: #### L [id number] ####[facility] LABIA [id number] [address] [place] Urobilinogen Ql (U) 0.2 EU/dL Normal 0.2-1.0 EU/dL [facility] Comment on above: Order Comment: Speci men Type: URINE SPECIMENOrdering Facility: [facility] Address: [address] [place] [address] Performed By: #### L [id number] ####[facility] LABIA [id number] [address] [place] WBC LM.HPF (Urine sed) [#/Area] 0-5 /HPF Normal 0-5 /HPF [facility] Comment on above: Order Comment: Speci men Type: URINE SPECIMENOrdering Facility: [facility] Address: [address] [place] [address] Performed By: #### L [id number] ####[facility] LABIA [id number] [address] [place] XR LUMBAR 3V AP/LAT/L5-S1on [...] spine are presented. FINDINGS: There are five cly-woz-pzmnyrt lumbar vertebrae. L1 vertebral body compression deformity/age indeterminate fracture is demonstrated, involving the superior endplate.. Questionable L2-3 mild disc space narrowing. There is moderate osteophyte formation, with facet arthrosis in the lower lumbar spine. Kissing spine seen on lateral view. Others: There are vascular calcifications. IMPRESSION L1 vertebral body compression deformity/age indeterminate fracture. Lumbar spine degenerative changes as described above. Lye Treater: JOSIAH Transcribe Date/Time: Jun 22 2024 2:54P Dictated by : BRIAN WILKINSON MD This examination was interpreted and the report reviewed and electronically signed by: BRIAN WILKINSON MD on Jun 22 2024 2:55PM EST [id number] Normal [facility] XR Lumbar spine 3 Viewson * [...] spine are presented. FINDINGS: There are five cxq-qnu-ctzugem lumbar vertebrae. L1 vertebral body compression deformity/age indeterminate fracture is demonstrated, involving the superior endplate.. Questionable L2-3 mild disc space narrowing. There is moderate osteophyte formation, with facet arthrosis in the lower lumbar spine. Kissing spine seen on lateral view. Others: There are vascular calcifications. IMPRESSION L1 vertebral body compression deformity/age indeterminate fracture. Lumbar spine degenerative changes as described above. Lye Treater: PSCB Transcribe Date/Time: Jun 22 2024 2:54P Dictated by : BRIAN WILKINSON MD This examination was interpreted and the report reviewed and electronically signed by: BRIAN WILKINSON MD on Jun 22 2024 2:55PM EST DIVISION OF RADIOLOGY Provider, [facility] - 06/22/2024 * * *Final Report* [...] spine are presented. FINDINGS: There are five gap-amf-pwheujf lumbar vertebrae. L1 vertebral body compression deformity/age indeterminate fracture is demonstrated, involving the superior endplate.. Questionable L2-3 mild disc space narrowing. There is moderate osteophyte formation, with facet arthrosis in the lower lumbar spine. Kissing spine seen on lateral view. Others: There are vascular calcifications. IMPRESSION L1 vertebral body compression deformity/age indeterminate fracture. Lumbar spine degenerative changes as described above. Lye Treater: JOSIAH Transcribe Date/Time: Jun 22 2024 2:54P Dictated by : BRIAN WILKINSON MD This examination was interpreted and the report reviewed and electronically signed by: BRIAN WILKINSON MD on Jun 22 2024 2:55PM EST [facility] Radiology Study [facility]narrative) [facility] Lumbar spine 3 ViewsOrder ed By: Ccf Provider on 06-22-2024 [facility] CNPNon 06-16-2024 MAKAYLA Telephone (ANN MARIE) REINA SULLIVAN ([id number]) 1955 M Date Time Provider Department 06/16/24 [facility] During your visit today, we recorded the following information about you: Aric Zapien MD 06/16/2024 8:48 AM Signed Schedule to see me at [facility] in person on 06/21/24. Please make sure they are aware appt they scheduled is at that office and not [place] Aric Zapien MD 06/19/2024 10:50 AM Signed Please call before (I suspect was put in wrong place) Felicita Bolden MA 06/19/2024 11:21 AM Signed Please call pt and ask if pt knows he is scheduled at [facility] Florinda Stevenson APRN.HOME HEALTH CNA 06/22/2024 3:37 PM Signed Please let patient know that he has a lumbar 1 compression fracture of the endplate. I am going to send him to a spine surgeon to review. Please facilitate primaryscheduling Felicita Bolden MA 06/22/2024 4:29 PM Signed Patient notified of results and transferred to packing inspector Mecca Summers 06/22/2024 4:43 PM Signed Mel [...] to assist with scheduling consultation with orthopaedic ear nose and throat specialist per 06/22/24 telephone encounter. 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 *09/30/2022 Migraine [...] Encounter Status:Closed by FELICITA BOLDEN on [facility]/24 [facility] C[facility]N Telephone (ENDOSO) REINA SULLIVAN Esperanza ([id number]) 1955 M Date Time Provider Department 03/21/24 LU FISH During your visit today, we recorded the following information about you: Vanna Flores 03/21/2024 3:31 PM Signed [facility] states that their records show patient has [...] unspecified na*09/30/2022 Left atrial enlargement [I51.7] 09/30/2022 assisted current use of 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 *09/30/2022 Migraine [...] Encounter Status:Closed by VANNA FLORES on 03/23/24 [facility] CNCOon 11-24-2023 CNCO Letter Text [facility] CNPNon 11-24-2023 CNPN Telephone (SOPHIEWST) REINA SULLIVAN ([id number]) 1955 M Date Time Provider Department 11/24/23 HARVEY HAZEL During your visit today, we recorded the following information about you: Harvey Hazel, TELEVISION EQUIPMENT OPERATOR 11/24/2023 1:04 PM Signed Nikkie called and spoke with Halima, patient ex in regards to service assistance options in the community. Halima notes that she helps patient " to a certain extent." Halima and Nikkie spoke about [facility] Older Adult Resource Directory. Halima asks that Nikkie mail patient this guide for him to review and see what services are available in the community. Nikkie will also attach [employer] Older Adult support program and [facility] information. 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 James [place]: cardiac cath: no disease 09/08/2015 cardiac catheter[address] [facility] Dr. James: - primary rhythm atrial [...] Lymph 1.00 - 4.00 k/uL 1.57 2.35 Dup[place]% % 9.8 11.3 Abs [place] <0.87 k/uL 0.66 0.98 (H) Eosin% % [...] long-term cur (more content not included)... Normal [facility] Absolute lymphocyte countOrd ered By: Rakel Hodgson on 06-23-2023 Lymphocytes Auto (Unsp spec) [#/Vol] 2.02 10*3/uL 0.83-4.51 [facility] Automated lymphocyte count a s percentage of total leukocytesOrdered By: Rakel Hodgson on 06-23-2023 Lymphocytes/100 WBC Auto (Unsp spec) 28.9 % 19-41 [facility] Basophil percentageOrdered B y: Rakel Hodgson on 06-23-2023 Basophils/100 WBC (Bld) 0.7 % 0-1 [facility] Chloride [Moles/Vol] 104 mmol/L 98-107 [facility] Eosinophils/100 WBC (Bld) 1.0 % 0-5 [facility] Glucose [Mass/Vol] 99 mg/dL 74-106 [facility] Hemoglobin (Bld) [Mass/Vol] 15.8 g/dL 13.0-16.5 [facility] Monocytes/100 WBC (Bld) 11.7 % 0-10 [facility] Neutrophils (Bld) [#/Vol] 4.0 10*3/uL 2.0-7.7 [facility] Neutrophils/100 WBC (Bld) 57.1 % 47-70 [facility] Potassium [Moles/Vol] 4.2 mmol/L 3.5-5.1 [facility] Sodium [Moles/Vol] 139 mmol/L 136-145 [facility] WBC (Bld) [#/Vol] 7.0 10*3/uL 4.4-11.0 [facility] Determination of erythrocyte mean corpuscular volume (MCV)Ordered By: Rakel Hodgson on 06-23-2023 MCV (RBC) [Entitic vol] 93.6 fL 80-94 [facility] Erythrocyte distribution wid th ratioOrdered By: Rakel Hodgson on 06-23-2023 Erythrocyte distribution width (RBC) [Ratio] 13.0 % 11.6-14.6 [facility] Erythrocyte distribution wid th standard deviationOrdered By: Rakel Hodgson on 06-23-2023 Erythrocyte distribution width (RBC) [Entitic vol] 44.3 fL 35.1-43.9 [facility] Hematocrit Auto (Bld) [Volum e fraction]Ordered By: Rakel Hodgson on 06-23-2023 Hematocrit (Bld) [Volume fraction] 48.6 % 40-54 [facility] Immature granulocytes/100 WB C Auto (Bld)Ordered By: Rakel Hodgson on 06-23-2023 Immature granulocytes/100 WBC (Bld) 0.600 % 0.0-0.9 [facility] Comment on above: IG% - Immature Granu locytes (promyelocytes, myelocytes and metamyelocytes) > 1% indicates that a LEFT SHIFT is Present. Laboratory - Chemistry and C hemistry - challengeOrdered By: Rakel Hodgson on 06-23-2023 CO2 [Moles/Vol] 31.0 mmol/L 21.0-32.0 [facility] Urea nitrogen/Creatinine [Mass ratio] 13.2 mg/mg 10-20 [facility] Laboratory - Hematology and Cell countsOrdered By: Rakel Hodgson on 06-23-2023 MCH (RBC) [Entitic mass] 30.4 pg 27.0-32.0 [facility] MCHC (RBC) [Mass/Vol] 32.5 g/dL 32-36 [facility] Nucleated RBC/100 WBC (Bld) [Ratio] 0 % 0-5 [facility] Platelets (Bld) [#/Vol] 219 10*3/uL 150-450 [facility] No Panel InformationOrdered By: Rakel Hodgson on 06-23-2023 Estimated GFR (MDRD) Amer 56 mL/min >60 [facility] Comment on above: GFR Calc Estimated GFR (MDRD) Non-Af Amer 47 mL/min >60 [facility] Comment on above: Non- GFR Calc Platelet mean volume Hank-Ec ker (Bld) [Entitic vol]Ordered By: Rakel Hodgson on 06-23-2023 Platelet mean volume (Bld) [Entitic vol] 11.4 fL 6.2-12.0 [facility] RBC Auto (Bld) [#/Vol]Ordere d By: Rakel Hodgson on 06-23-2023 RBC (Bld) [#/Vol] 5.19 10*6/uL 4.6-6.2 [facility] Serum or plasma calcium rosalina urement (mass/volume)Ordered By: Rakel Hodgson on 06-23-2023 Calcium [Mass/Vol] 9.1 mg/dL 8.5-10.1 [facility] Serum or plasma creatinine m easurement (mass/volume)Ordered By: Rakel Hodgson on 06-23-2023 Creatinine [Mass/Vol] 1.59 mg/dL 0.70-1.30 [facility] Comment on above: The validity of the calculated GFR & GFRAA in patients over 70 years has not been determined. Clinical correlation is essential. Serum or plasma urea nitroge n measurement (mass/volume)Ordered By: Rakel Hodgson on 06-23-2023 Urea nitrogen [Mass/Vol] 21 mg/dL 7-18 [facility] Thin prep Papanicolaou smear with manual screeningOrdered By: Rakel Hodgson on 06-23-2023 Thin prep Papanicolaou smear with manual screening 4 5-15 [facility] STREP A MOLECULAR (POC)on Procedural Control Valid [facility] Strep A (POCT) Negative Negative [facility] CBC W Auto Differential pane l (Bld)on 09-30-2022 Basophils (Bld) [#/Vol] 0.04 10*3/uL <0.11 k/uL [facility] Basophils/100 WBC (Bld) 0.6 % [facility] Differential cell count method Nom (Bld) Auto [facility] Eosinophils (Bld) [#/Vol] 0.07 10*3/uL <0.46 k/uL [facility] Eosinophils/100 WBC (Bld) 1.0 % [facility] Erythrocyte distribution width (RBC) [Ratio] 13.6 % 11.5 - 15.0 % [facility] Hematocrit (Bld) [Volume fraction] 43.7 % 39.0 - 51.0 % [facility] Hemoglobin (Bld) [Mass/Vol] 14.2 g/dL 13.0 - 17.0 g/dL [facility] Immature granulocytes (Bld) [#/Vol] <0.10 k/uL [facility] Immature granulocytes/100 WBC (Bld) 0.3 % [facility] Lymphocytes (Bld) [#/Vol] 1.57 10*3/uL 1.00 - 4.00 k/uL [facility] Lymphocytes/100 WBC (Bld) 23.3 % [facility] MCH (RBC) [Entitic mass] 31.1 pg 26.0 - 34.0 pg [facility] MCHC (RBC) [Mass/Vol] 32.5 g/dL 30.5 - 36.0 g/dL [facility] MCV (RBC) [Entitic vol] 95.8 fL 80.0 - 100.0 fL [facility] Monocytes (Bld) [#/Vol] 0.66 10*3/uL <0.87 k/uL [facility] Monocytes/100 WBC (Bld) 9.8 % [facility] Neutrophils (Bld) [#/Vol] 4.37 10*3/uL 1.45 - 7.50 k/uL [facility] Neutrophils/100 WBC (Bld) 65.0 % [facility] Nucleated RBC (Bld) [#/Vol] <0.01 k/uL [facility] Nucleated RBC/100 WBC (Bld) [Ratio] 0.0 /100 WBC [facility] Platelet mean volume (Bld) [Entitic vol] 11.4 fL 9.0 - 12.7 fL [facility] Platelets (Bld) [#/Vol] 246 10*3/uL 150 - 400 k/uL [facility] RBC (Bld) [#/Vol] 4.56 10*6/uL 4.20 - 6.0 0 m/uL [facility] WBC (Bld) [#/Vol] 6.73 10*3/uL 3.70 - 11. 00 k/uL [facility] HbA1c (Bld)on 09-30-2022 Average glucose Estimated from glycated hemoglobin (Bld) [Mass/Vol] 131 mg/dL [facility] HbA1c (Bld) [Mass fraction] 6.2 % High 4.3 - 5.6 % [facility] VALPROIC A/DEPAKENEon 2022 Valproate [Mass/Vol] 70.5 ug/mL 50.0 - 100.0 ug/mL [facility] No Panel Informationon 04-26 [facility] Absolute lymphocyte counton 03-06-2022 Lymphocytes Auto (Unsp spec) [#/Vol] 2.57 10*3/uL 0.83-4.51 [facility] Work Phone: Basophil percentageon 2021 Basophils/100 WBC (Bld) 0.5 % 0-1 [facility] Work Phone: Chloride [Moles/Vol] 104 mmol/L 98-107 [facility] Work Phone: Eosinophils/100 WBC (Bld) 1.8 % 0-5 [facility] Work Phone: Glucose [Mass/Vol] 112 mg/dL 74-106 [facility] Work Phone: Comment on above: Fasting Glucose resu lt from 100 to 125 mg/dL suggests IMPAIRED HOMEOSTASIS per A.D.A. criteria. Neutrophils (Bld) [#/Vol] 4.0 10*3/uL 2.0-7.7 [facility] Work Phone: Neutrophils/100 WBC (Bld) 52.2 % 47-70 [facility] Work Phone: Potassium [Moles/Vol] 3.4 mmol/L 3.5-5.1 [facility] Work Phone: Sodium [Moles/Vol] 142 mmol/L 136-145 [facility] Work Phone: WBC (Bld) [#/Vol] 7.7 10*3/uL 4.4-11.0 [facility] Work Phone: Blood erythrocytes count (nu mber/volume)on 03-06-2022 RBC (Bld) [#/Vol] 4.57 10*6/uL 4.6-6.2 [facility] Work [facility]: Blood hemoglobin measurement (mass/volume)on 03-06-2022 Hemoglobin (Bld) [Mass/Vol] 14.7 g/dL 13.0-16.5 [facility] Work Phone: Blood lymphocytes/100 leukoc yteson 03-06-2022 Lymphocytes/100 WBC (Bld) 33.2 % 19-41 [facility] Work Phone: Blood monocytes/100 leukocyt eson 03-06-2022 Monocytes/100 WBC (Bld) 11.8 % 0-10 [facility] Work Phone: Blood platelet mean volumeon 03-06-2022 Platelet mean volume (Bld) [Entitic vol] 10.3 fL 6.2-12.0 [facility] Work Phone: Determination of erythrocyte mean corpuscular volume (MCV)on 03-06-2022 MCV (RBC) [Entitic vol] 93.7 fL 80-94 [facility] Work Phone: Hematocrit Auto (Bld) [Volum e fraction]on 03-06-2022 Hematocrit (Bld) [Volume fraction] 42.8 % 40-54 [facility] Work Phone: Laboratory - Chemistry and C hemistry - challengeon 03-06-2022 CO2 [Moles/Vol] 28.0 mmol/L 21.0-32.0 [facility] Work Phone: Urea nitrogen/Creatinine [Mass ratio] 19.0 mg/mg 10-20 [facility] Work Phone: Laboratory - Hematology and Cell countson 03-06-2022 Erythrocyte distribution width (RBC) [Entitic vol] 43.5 fL 35.1-43.9 [facility] Work Phone: Erythrocyte distribution width (RBC) [Ratio] 12.7 % 11.6-14.6 [facility] Work Phone: Immature granulocytes/100 WBC (Bld) 0.500 % 0.0-0.9 [facility] Work Phone: Comment on above: IG% - Immature Granu locytes (promyelocytes, myelocytes and metamyelocytes) > 1% indicates that a LEFT SHIFT is Present. MCH (RBC) [Entitic mass] 32.2 pg 27.0-32.0 [facility] Work Phone: Nucleated RBC/100 WBC (Bld) [Ratio] 0 % 0-5 [facility] Work Phone: MCHC Auto (RBC) [Mass/Vol]on 03-06-2022 MCHC (RBC) [Mass/Vol] 34.3 g/dL 32-36 [facility] Work Phone: No Panel Informationon 03-06 Estimated Creatinine Clearance Calc 70.76 ml/min [facility] Work Phone: Estimated GFR (MDRD) Amer 77 mL/min >60 [facility] Work Phone: Comment on above: GFR Calc Estimated GFR (MDRD) Non-Af Amer 64 mL/min >60 [facility] Work Phone: Comment on above: Non- GFR Calc Platelets bldon 03-06-2022 Platelets (Bld) [#/Vol] 230 10*3/uL 150-450 [facility] Work Phone: Serum or plasma calcium rosalina urement (mass/volume)on 03-06-2022 Calcium [Mass/Vol] 9.7 mg/dL 8.5-10.1 [facility] Work Phone: Serum or plasma creatinine m easurement (mass/volume)on 03-06-2022 Creatinine [Mass/Vol] 1.21 mg/dL 0.70-1.30 [facility] Work Phone: Comment on above: The validity of the calculated GFR & GFRAA in patients over 70 years has not been determined. Clinical correlation is essential. Serum or plasma urea nitroge n measurement (mass/volume)on 10-08-2022 Urea nitrogen [Mass/Vol] 23 mg/dL 7-18 [facility] Work Phone: Thin prep Papanicolaou smear with manual screeningon 03-06-2022 Thin prep Papanicolaou smear with manual screening 10-11 [facility] Work Phone: No Panel InformationOrdered By: Ccf Provider on 03-12-2021 [facility] No Panel Informationon 03-12 Radiology Study observation (narrative) [facility] XR Ankle - right AP and Late [...] Impression: 1. No acute fracture or dislocation. Lye Treater: [facility] Transcribe Date/Time: Mar 12 2021 3:19P Dictated by : COURTNEY MART MD This examination was interpreted and the report reviewed and electronically signed by: COURTNEY MART MD on Mar 12 2021 3:22PM [facility] OF RADIOLOGY Provider, [facility] - 03/12/2021 * * *Final Report* [...] Impression: 1. No acute fracture or dislocation. Lye Treater: [facility] Transcribe Date/Time: Mar 12 2021 3:19P Dictated by : COURTNEY MART MD This examination was interpreted and the report reviewed and electronically signed by: COURTNEY MART MD on Mar 12 2021 3:22PM EST [facility] XR Foot - right AP and Later [...] Impression: 1. No acute fracture or dislocation. Lye Treater: [facility] Transcribe Date/Time: Mar 12 2021 3:19P Dictated by : COURTNEY MART MD This examination was interpreted and the report reviewed and electronically signed by: COURTNEY MART MD on Mar 12 2021 3:22PM [facility] RADIOLOGY Provider, [facility] - 03/12/2021 * * *Final Report* [...] Impression: 1. No acute fracture or dislocation. Lye Treater: JOSIAH Transcribe Date/Time: Mar 12 2021 3:19P Dictated by : COURTNEY MART MD This examination was interpreted and the report reviewed and electronically signed by: COURTNEY MART MD on Mar 12 2021 3:22PM EST [facility] VISUAL FIELD 30-2 OU (BOTH E YES) [facility] Vital Signs Date Time Vital Sign Value Performing Clinician Facility 07-11-2024 17:10-0500 Body temperature 97.7 [degF] Dr. Aric Zapien MD Work Phone: 0(754)530-191925 [place] [address] 07-11-2024 17:10-0500 Diastolic blood pressure 88 mm[Hg] Dr. Aric Zapien MD Work Phone: 8(101)903-139025 [place] [address] 07-11-2024 17:10-0500 Heart rate 100 /min Dr. Aric Zapien MD Work Phone: 8(172)476-032025 [place] [address] 07-11-2024 17:10-0500 Respiratory rate 16 /min Dr. Aric Zapien MD Work Phone: 6(843)708-982025 [place] [address] 07-11-2024 17:10-0500 SaO2% (BldA) [Mass fraction] 97 % Dr. Aric Zapien MD Work Phone: 2(665)996-244825 [place] [address] 07-11-2024 17:10-0500 Systolic blood pressure 127 mm[Hg] Dr. Aric Zapien MD Work Phone: 1(095)689-278925 [place] [address] 07-10-2024 10:00-0500 Inhaled oxygen flow rate 2 L/min Dr. Aric Zapien MD Work Phone: 4(708)632-632425 [place] [address] 07-09-2024 15:34-0500 Body height 182.[address] Aric Zapien MD Work Phone: 6(081)988-504025 [place] [address] 07-09-2024 15:34-0500 Body weight 97.[address] Aric Zapien MD Work Phone: 4(377)439-099125 [place] [address] 07-09-2024 11:44-0500 Body mass index (BMI) [Ratio] 29.2 kg/m2 Dr. Aric Zapien MD Work Phone: 1(431)601-822125 [place] [address] 06-22-2024 13:29-0500 Body temperature 97.81 [degF] Florinda Suppan CIRCUS ARTIST.HOME HEALTH CNA Work Phone: [facility] 06-22-2024 13:29-0500 Diastolic blood pressure 76 mm[Hg] Florinda Suppan CIRCUS ARTIST.HOME HEALTH CNA Work Phone: [facility] 06-22-2024 13:29-0500 Heart rate 88 /min Florinda Suppan CIRCUS ARTIST.HOME HEALTH CNA Work Phone: [facility] 06-22-2024 13:29-0500 SaO2% (BldA) [Mass fraction] 99 % Florinda Suppan CIRCUS ARTIST.HOME HEALTH CNA Work Phone: [facility] 06-22-2024 13:29-0500 Systolic blood pressure 118 mm[Hg] Florinda Suppan CIRCUS ARTIST.HOME HEALTH CNA Work Phone: [facility] 11-22-2023 15:27-0400 Body mass index (BMI) [Ratio] 30.65 kg/m2 NA Max PA-C Work Phone: [facility] 11-22-2023 15:27-0400 Body weight 102.51 kg NA Max PA-C Work Phone: [facility] 11-22-2023 15:27-0400 Diastolic blood pressure 80 mm[Hg] NA Max PA-C Work Phone: [facility] 11-22-2023 15:27-0400 Heart rate 85 /min NA Max PA-C Work Phone: [facility] 11-22-2023 15:27-0400 Respiratory rate 15 /min NA Max PA-C Work Phone: [facility] 11-22-2023 15:27-0400 SaO2% (BldA) [Mass fraction] 96 % NA Amx PA-C Work Phone: [facility] 11-22-2023 15:27-0400 Systolic blood pressure 128 mm[Hg] NA Max PA-C Work Phone: [facility] 06-23-2023 15:04-0500 Body height 187.[address] Aric Zapien Work Phone: 2(588)458-787513 [place] [address] 06-23-2023 15:04-0500 Body mass index (BMI) [Ratio] 28.5 kg/m2 Dr. Aric Zapien Work Phone: 2(219)300-627613 [place] [address] 06-23-2023 15:04-0500 Body weight 100.[address] Aric Zapien Work Phone: 6(024)794-164613 [place] [address] 06-23-2023 15:04-0500 Diastolic blood pressure 60 mm[Hg] Dr. Aric Zapien Work Phone: 4(061)802-073913 [place] [address] 06-23-2023 15:04-0500 Heart rate 67 /min Dr. Aric Zapien Work Phone: 6(144)774-612825 [place] [address] 06-23-2023 15:04-0500 Respiratory rate 18 /min Dr. Aric Zapien Work Phone: 9(962)558-705413 [place] [address] 06-23-2023 15:04-0500 SaO2% (BldA) [Mass fraction] 97 % Dr. Aric Zapien Work Phone: 8(198)581-634613 [place] [address] 06-23-2023 15:04-0500 Systolic blood pressure 80 mm[Hg] Dr. Aric Zapien Work Phone: [facility] 12-07-2022 13:46-0400 Body temperature 98.4 [degF] Krislyn Aberegg PA Work Phone: [facility] 12-07-2022 13:46-0400 Body weight 101.7 kg Krislyn Aberegg PA Work Phone: [facility] 12-07-2022 13:46-0400 Diastolic blood pressure 76 mm[Hg] Krislyn Aberegg PA Work Phone: [facility] 12-07-2022 13:46-0400 Heart rate 60 /min Krislyn Aberegg PA Work Phone: [facility] 12-07-2022 13:46-0400 Respiratory rate 18 /min Krislyn Aberegg PA Work Phone: [facility] 12-07-2022 13:46-0400 SaO2% (BldA) [Mass fraction] 96 % Krislyn Aberegg PA Work Phone: [facility] 12-07-2022 13:46-0400 Systolic blood pressure 112 mm[Hg] Krislyn Aberegg PA Work Phone: [facility] 09-30-2022 13:13-0400 Body height 182.9 cm Aric Zapien MD Work Phone: [facility] 09-30-2022 13:13-0400 Body weight 103.87 kg Aric Zapien MD Work Phone: [facility] 09-30-2022 13:13-0400 Diastolic blood pressure 100 mm[Hg] Aric Zapien MD Work Phone: [facility] 09-30-2022 13:13-0400 Heart rate 88 /min Aric Zapien MD Work Phone: [facility] 09-30-2022 13:13-0400 SaO2% (BldA) [Mass fraction] 97 % Aric Zapien MD Work Phone: [facility] 09-30-2022 13:13-0400 Systolic blood pressure 152 mm[Hg] Aric Zapien MD Work Phone: [facility] 04-01-2022 10:36-0400 Body weight 99.79 kg Aric Zapien MD Work Phone: [facility] 04-01-2022 10:36-0400 Diastolic blood pressure 62 mm[Hg] Aric Zapien MD Work Phone: [facility] 04-01-2022 10:36-0400 Heart rate 97 /min Aric Zapien MD Work Phone: [facility] 04-01-2022 10:36-0400 SaO2% (BldA) [Mass fraction] 100 % Aric Zapien MD Work Phone: [facility] 04-01-2022 10:36-0400 Systolic blood pressure 102 mm[Hg] Aric Zapien MD Work Phone: [facility] 03-09-2022 15:09-0400 Body height 184 cm NA Max PA-C Work Phone: [facility] 03-09-2022 15:09-0400 Body weight 101.15 kg NA Max PA-C Work Phone: [facility] 03-09-2022 15:09-0400 Diastolic blood pressure 74 mm[Hg] NA Max PA-C Work Phone: [facility] 03-09-2022 15:09-0400 Heart rate 82 /min NA Max PA-C Work Phone: [facility] 03-09-2022 15:09-0400 Respiratory rate 12 /min NA Max PA-C Work Phone: [facility] 03-09-2022 15:09-0400 SaO2% (BldA) [Mass fraction] 98 % NA Max PA-C Work Phone: [facility] 03-09-2022 15:09-0400 Systolic blood pressure 104 mm[Hg] NA Max PA-C Work Phone: [facility] 03-08-2022 15:33-0400 Body weight 99.79 kg Aric Huston Jr., MD Work Phone: [facility] 03-08-2022 15:33-0400 Diastolic blood pressure 72 mm[Hg] Aric Huston Jr., MD Work Phone: [facility] 03-08-2022 15:33-0400 Heart rate 93 /min Aric Huston Jr., MD Work Phone: [facility] 03-08-2022 15:33-0400 Respiratory rate 12 /min Aric Huston Jr., MD Work Phone: [facility] 03-08-2022 15:33-0400 SaO2% (BldA) [Mass fraction] 98 % Aric Huston Jr., MD Work Phone: [facility] 03-08-2022 15:33-0400 Systolic blood pressure 100 mm[Hg] Aric Huston Jr., MD Work Phone: [facility] 03-06-2022 12:58-0400 Diastolic blood pressure 90 mm[Hg] [facility] Work Phone: 03-06-2022 12:58-0400 Heart rate 80 /min [facility] Work Phone: 03-06-2022 12:58-0400 Respiratory rate 16 /min [facility] Work Phone: 03-06-2022 12:58-0400 SaO2% (BldA) [Mass fraction] 98 % [facility] Work Phone: 03-06-2022 12:58-0400 Systolic blood pressure 116 mm[Hg] [facility] Work Phone: 03-06-2022 10:03-0400 Body height 187.96 cm [facility] Work Phone: 03-06-2022 10:03-0400 Body mass index (BMI) [Ratio] 28.9 kg/m2 [facility] Work Phone: 03-06-2022 10:03-0400 Body temperature 97.1 [degF] [facility] Work Phone: 03-06-2022 10:03-0400 Body weight 102.1 kg [facility] Work Phone: 09-24-2021 15:24-0400 Body weight 102.51 kg Aric Zapien MD Work Phone: [facility] 09-24-2021 15:24-0400 Diastolic blood pressure 82 mm[Hg] Aric Zapien MD Work Phone: [facility] 09-24-2021 15:24-0400 Heart rate 88 /min Aric Zapien MD Work Phone: [facility] 09-24-2021 15:24-0400 Systolic blood pressure 122 mm[Hg] Aric Zapien MD Work Phone: [facility] Encounters Encounter Date Encounter Type Care Provider Facility Start: 01-21-2025 ambulatory Jigna Gukaryna [facility] Fac[facility] ty:[facility] Start: 01-10-2025 ambulatory Jigna Gukaryna O[facility] Facili ty:[facility] Start: 01-02-2025 ambulatory Jigna Gukaryna OLS Facili ty:[facility] Start: 11-27-2024 ambulatory Jigna Gudla OLS Facili ty:[facility] Start: 10-31-2024 ambulatory [facility] Facility:[place] Start: 10-25-2024 End: 10-25-2024 Telephone encounter Aric Zapien MD Work Phone: [facility] Comment on above: Letter (No show #2) Start: 10-23-2024 ambulatory [facility] Facility:[place] Start: 09-26-2024 End: 09-26-[address] Aric Zapien MD Work Phone: [facility] Work Phone: Start: 09-26-2024 End: 09-26-[address] Jigna Brantley MD -[facility] Start: 09-26-2024 End: 09-26-2024 [facility]ulatory [facility] Facility[facility] Start: 08-27-2024 End: 08-27-[address] Aric Zapien MD Work Phone: [facility] Work Phone: Start: 08-27-2024 End: 08-27-[address] Jigna Brantley MD -[facility] Start: 08-27-2024 End: 08-27-2024 ambulatory Jigna ALMENDAREZ Facility:[facility] Start: 07-23-2024 ambulatory Jigna ALMENDAREZ Facili ty:[facility] Start: 07-23-[address] Jigna Brantley MD -[facility] Start: 07-16-2024 End: 08-07-2024 Telephone encounter Aric Zapien MD Work Phone: [facility] [place] Comment on above: Patient Update Start: 07-16-2024 ambulatory Jigna Garcia ty:[facility] Start: 07-16-[address] Jigna Brantley MD -[facility] Start: 07-12-2024 ambulatory Jigna Garcia ty:[facility] Start: 07-12-[address] Jigna Brantley MD -[facility] Start: 07-11-2024 Non-patient / Non-visit Dr. Yann Katz [facility] Work Phone: Start: 07-10-2024 Non-patient / Non-visit Dr. Yann Katz [facility] Work Phone: Start: 07-10-2024 ambulatory Estuardo Irby Facility:[facility] Start: 07-10-2024 Non-patient / Non-visit Dr. Cynthia Irby MD -[facility] Start: 07-09-2024 End: 07-11-2024 Evaluation and management of inpatient Dr. Yann Ascencio [facility] Work Phone: Start: 07-09-2024 ambulatory Yann Ascencio Facility:[facility] Start: 07-09-2024 Non-patient / Non-visit Dr. Yann Katz [facility] Work Phone: Start: 06-26-2024 End: 06-26-2024 Telephone encounter Damaris Sotelo MD Work Phone: [facility] Start: 06-25-2024 End: 06-25-2024 Telephone encounter Florinda Stevenson APRN.CNP Work Phone: [facility] [place] Comment on above: Results Start: 06-22-2024 End: 06-22-2024 Telephone encounter Aric Zapien MD Work Phone: [facility] [place] Comment on above: Patient Question Start: 06-22-2024 End: 06-22-2024 Office outpatient visit 15 minutes Florinda Stevenson APRN.HOME HEALTH CNA Work Phone: [facility] [place] Comment on above: Type 2 diabetes jorge itus without complication, without long- term current use of insulin (HCC) (Primary Dx); Fall, initial encounter; Screening for lipid disorders; Acute low back pain without sciatica, unspecified back pain laterality Start: 06-22-2024 End: 06-22-2024 ambulatory ARIC ZAPIEN Facility:[facility] Start: 06-16-2024 End: 06-22-2024 Telephone encounter Aric Zapien MD Work Phone: [facility] Comment on above: Patient Update Start: 06-13-2024 End: 06-14-2024 Refill Aric Zapien MD Work Phone: [address] [place] [address] Comment on above: Refill Request Start: 05-28-2024 End: 05-28-2024 ambulatory Mayuri Perez MA [facility] Start: 05-28-2024 End: 05-28-2024 Patient encounter procedure Mayuri Perez MA [facility] Comment on above: Population Health Na vigation Outreach ([facility]CAIP OUTREACH ) Start: 04-18-2024 End: 04-18-[address] [facility] Start: 04-18-2024 End: 04-18-2024 [facility] Start: 03-21-2024 End: 03-23-2024 Telephone encounter Lu Fish APRN.HOME HEALTH CNA Work Phone: Endocrinology Start: 03-07-2024 End: 03-07-2024 ambulatory Jordy Hernandez MA [facility] Start: 03-07-2024 End: 03-07-2024 Patient encounter procedure Jordy Hernandez MA [facility] Comment on above: Population Health Na vigation Outreach (Jodie Leal PCSA) Start: 12-15-2023 ambulatory Moshe Friedman [facility] Start: 12-15-2023 Patient encounter procedure Moshe Friedman MA [facility] Comment on above: Population Health Na vigation Outreach (ANTHEM-AWV) Start: 11-24-2023 Telephone encounter Harvey Cohn Start: 11-22-2023 End: 11-22-2023 ambulatory RENUKA MAX Facility:[facility] Start: 11-22-2023 End: 11-22-2023 Patient encounter procedure Jaison Max PA-C Work Phone: [facility] [place] Comment on above: 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 Comment on above: Refill Request Start: 06-23-2023 End: 06-23-[address] Aric Zapien Work Phone: [facility] Work Phone: Start: 06-23-2023 End: 06-23-[address] Aric Zapien Work Phone: [facility] Work Phone: Start: 12-07-2022 End: 12-07-2022 Patient encounter procedure Sarah MARIE Work Phone: [facility] Comment on above: Sore throat (Primary Dx); URI, acute Start: 09-30-2022 End: 09-30-2022 Patient encounter procedure Aric Zapien MD Work Phone: [facility] [place] Comment on above: Seizures (HCC) (Prim michelle [...] 06-18-2022 Refill Aric Zapien MD Work Phone: [facility] [place] Comment on above: Refill Request Start: 06-11-2022 ambulatory Leanna Benavidez RN [facility] Comment on above: DESI CEE RN ( Medication Adherence review per request of payer) Start: 04-27-2022 Telephone encounter Aric Huston MD Work Phone: Neurology Comment on above: Results Start: 04-26-2022 End: 04-26-2022 Subsequent hospital visit by physician [facility] (I-Stat/1.5t) Work Phone: Radiology Comment [...] Telephone encounter Jaison Max PA-C Work Phone: [facility] [place] Comment on above: Results Start: 04-02-2022 Telephone encounter Aric Huston MD Work Phone: Neurology Comment on above: Orders Start: 04-01-2022 End: 04-01-2022 Patient encounter procedure Aric Zapien MD Work Phone: [facility] [place] Comment on above: Permanent atrial fib rillation (HCC) (Primary Dx); Seizures (HCC); Primary pulmonary HTN (HCC); Primary hypertension; Mixed hyperlipidemia; Type 2 diabetes mellitus without complication, without long-term current use of insulin (HCC); History of thyroiditis; Enlarged thoracic aorta (HCC); Screening for AAA (abdominal aortic aneurysm) Start: 03-15-2022 Telephone encounter Jaison Max PA-C Work Phone: [facility] [place] Comment on above: Orders Start: 03-09-2022 End: 03-09-2022 Patient encounter procedure Jaison Max PA-C Work Phone: [facility] [place] Comment on above: Medicare annual [facility], initial (Primary Dx); Permanent [...] 03-06-2022 End: 03-06-2022 [facility] Start: 03-04-2022 Refill Aric Zapien MD Work Phone: [facility] [place] Comment on above: Refill Request Start: 02-23-2022 ambulatory Joceline Waldron RN [facility] Care [facility] Comment on above: DESI CEE RN ( SPC/SUPD rev. per request [facility]) Start: 09-24-2021 End: 09-24-2021 Patient encounter procedure Aric Zapien MD Work Phone: [facility] [place] Comment on above: Permanent atrial fib rillation [...] Aric Zapien MD Work Phone: Internal Medicine [facility] Start: 03-12-2021 End: 03-12-2021 Subsequent hospital visit by physician Jose A [facility] Work Phone: Radiology Comment on above: [...] Gutierrez.RESULTS READ BACK BY . Start: 11-22-2023 [employer] COVI D-19 VACCINE (2022- SEASON) AGE 12+ YR M Leonidas Max PA-C Work Phone: Start: 11-22-2023 Adult depression scr eening assessment [facility] [place] Work Phone: Start: 12-07-2022 STREP A MOLECULAR (POC) Mikki Rodriguez APRN.HOME HEALTH CNA Work Phone: Start: 04-26-2022 Mra head w/o [...] RSV Vaccine (1 - 1-dose 75+ series) [facility] Start: 09-24-2026 PROSTATE CANCER SCREENING DISCUSSION PROSTATE CANCER SCREENING DISCUSSION [facility] Start: 09-24-2026 Prostate specific antigen measurement Prostate Cancer Screening Discussion [facility] Start: 06-22-2025 Annual PCP Team Chronic Disease Visit Annual PCP Team Chronic Disease Visit [facility] Start: 06-22-2025 BP Controlled (<130/80) BP Controlled (<130/80) [facility] in Start: 06-22-2025 Complete blood count Hemoglobin/Hematocrit [facility] Start: 06-22-2025 Creatinine measurement Serum Creatinine [facility] Start: 06-22-2025 Hepatitis B screening Urine Albumin:Creatinine Ratio [facility] Start: 06-22-2025 Hepatitis B surface antibody level LDL Cholesterol [facility] Start: 01-28-2025 Influenza vaccination Influenza Vaccine (Season Ended) [facility] Start: 12-20-2024 Hemoglobin A1c measurement HbA1C [facility] Start: 11-21-2024 Annual PCP Team Chronic Disease Visit Annual PCP Team Chronic Disease Visit [facility] Start: 11-21-2024 Depression Screening Depression Screening [facility] Start: 11-21-2024 Diabetic foot examination Diabetic Foot Exam [facility] Start: 07-12-2024 End: 07-12-2024 Patient encounter procedure 07/12/2024 1:20 PM EST Office Visit [facility] [address] [place] [address] Florinda Stevenson, CIRCUS ARTIST.HOME HEALTH CNA [address], [place] [address] 2 week follow up [facility] Comment on above: 2 week follow up Start: 07-11-2024 Patient discharge [facility] Start: 07-10-2024 Care planning and problem solving actions [facility] Start: 07-10-2024 [facility] Start: 07-10-2024 End: 07-10-2024 Patient encounter procedure [employer] Comment on above: Lumbar x-ray needs order L1 Fx Start: 07-10-2024 Oxygen therapy [facility] Start: 07-09-2024 Care planning and problem solving actions [facility] Start: 07-09-2024 End: 07-09-2024 Following clinical pathway protocol [facility] Start: 07-09-2024 Assessment of risk of venous thromboembolism [facility] Start: 07-09-2024 Care regimes management [facility] Start: 07-09-2024 Insertion of catheter into peripheral vein [facility] Start: 07-09-2024 Measuring intake and output [facility] Start: 07-09-2024 Notification of physician [facility] Start: 07-09-2024 Providing care according to standard [facility] Start: 07-09-2024 Provision of activity privileges [facility] Start: 07-09-2024 Referral to occupational therapist [facility] Start: 07-09-2024 Referral to service [facility] Start: 07-09-2024 End: 07-09-2024 [facility] Start: 07-09-2024 Admission procedure [facility] Start: 07-09-2024 Patient referral to dietitian [facility] Start: 06-22-2024 End: 09-21-2024 CBC W Auto Differential panel - Blood [facility] Comment on above: Expected: 06/22/2024, Expires: Start: 06-22-2024 End: 09-21-2024 Comprehensive metabolic 2000 panel - Serum or Plasma [facility] Comment on above: Expected: 06/22/2024, Expires: Start: 06-22-2024 End: 09-21-2024 Ferritin [Mass/volume] in Serum or Plasma [facility] Comment on above: Expected: 06/22/2024, Expires: Start: 06-22-2024 End: 09-21-2024 Hemoglobin A1c in Blood [facility] Work Phone: Comment on above: Expected: 06/22/2024, Expires: Start: 06-22-2024 End: 09-21-2024 Iron and Iron binding capacity panel - Serum or Plasma [facility] Comment on above: Expected: 06/22/2024, Expires: Start: 06-22-2024 End: 09-21-2024 LIPID PANEL, NONFASTING [facility] Comment on above: Expected: 06/22/2024, Expires: Start: 06-22-2024 End: 09-21-2024 Magnesium [Mass/volume] in Serum or Plasma [facility] Comment on above: Expected: 06/22/2024, Expires: Start: 06-22-2024 End: 09-21-2024 Microalbumin/Creatinine [Mass Ratio] in Urine [facility] Comment on above: Expected: 06/22/2024, Expires: Start: 06-21-2024 End: 06-21-2024 Patient encounter procedure 06/21/2024 11:00 AM EST Office Visit [facility] [id number] [place] [address] Aric Zapien MD [address] [place] [address] [place] ON [place] [facility] Comment on above: [place] Start: 05-30-2024 Advance Directive Discussion Advance Directive Discussion [facility] Start: 05-25-2024 End: 05-25-2024 Patient encounter procedure [facility] [place] Comment on above: 6 month follow up 6 month follow up - HTN focus Jodie Start: 05-24-2024 Annual PCP Team Chronic Disease Visit Annual PCP Team Chronic Disease Visit [facility] Start: 05-24-2024 BP Controlled (<130/80) BP Controlled (<130/80) [facility] Start: 05-24-2024 Complete blood count Hemoglobin/Hematocrit [facility] Start: 05-24-2024 Creatinine measurement Serum Creatinine [facility] Start: 05-24-2024 Hepatitis B screening Urine Albumin:Creatinine Ratio [facility] Start: 05-24-2024 Hepatitis B surface antibody level LDL Cholesterol [facility] Start: 02-22-2024 End: 05-23-2024 Hemoglobin A1c in Blood HEMOGLOBIN A1C Lab Routine Type 2 diabetes mellitus without complication, without long-term current use of insulin (HCC) Expected: 02/22/2024, Expires: 05/23/2024 [facility] Comment on above: Expected: 02/22/2024, Expires: Start: 01-29-2024 Covid-19 Vaccine () Covid-19 Vaccine () [facility] Start: 01-29-2024 Influenza vaccination Influenza Vaccine (#1) [facility] Start: 12-08-2023 BP CONTROLLED (<130/80) BP CONTROLLED (<130/80) [facility] Start: 11-23-2023 Hemoglobin A1c measurement HbA1C [facility] Start: 11-22-2023 End: 11-22-2023 Patient encounter procedure 11/22/2023 3:40 PM EDT Office Visit [facility] [address], [place] [id number] Jaison Max PA-C [address] [place] [address] 6 mth f/u [facility] Comment on above: 6 mth f/u Start: 11-22-2023 End: 02-21-2024 CBC W Auto Differential panel - Blood COMPLETE BLOOD COUNT AND DIFFERENTIAL Lab Routine Seizures (HCC) Mitral valve insufficiency, unspecified etiology Non-rheumatic tricuspid valve insufficiency Left atrial enlargement 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 (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 Pulmonary hypertension (HCC) Enlarged thoracic aorta (HCC) Primary hypertension Chronic renal failure (CRF), stage 3a (HCC) Type 2 diabetes mellitus without complication, without long-term current use of insulin (HCC) Adjustment disorder with mixed emotional features Anxiety state Expected: 11/22/2023, Expires: 02/21/2024 [facility] Work Phone: Comment on above: Expected: 11/22/2023, Expires: Start: 11-22-2023 End: 02-21-2024 Comprehensive metabolic 2000 panel - Serum or Plasma COMPREHENSIVE METABOLIC PANEL Lab Routine Seizures (HCC) Mitral valve insufficiency, unspecified etiology Non-rheumatic tricuspid valve insufficiency Left atrial enlargement 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 (HCC) assisted current use of 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 Pulmonary hypertension (HCC) Enlarged thoracic aorta (HCC) Primary hypertension Mixed hyperlipidemia Chronic renal failure (CRF), stage 3a (HCC) Type 2 diabetes mellitus without complication, without long-term current use of insulin (HCC) Adjustment disorder with mixed emotional features Anxiety state Expected: 11/22/2023, Expires: 02/21/2024 [facility] Comment on above: Expected: 11/22/2023, Expires: 4 Start: 11-22-2023 End: 02-21-2024 Lipid 1996 panel - Serum or Plasma LIPID PANEL BASIC Lab Routine Mitral valve insufficiency, unspecified etiology Non-rheumatic tricuspid valve insufficiency Left atrial enlargement 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 (HCC) assisted current use of 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 Pulmonary hypertension (HCC) Enlarged thoracic aorta (HCC) Primary hypertension Mixed hyperlipidemia Type 2 diabetes mellitus without complication, without long-term current use of insulin (HCC) Expected: 11/22/2023, Expires: 02/21/2024 [facility] Comment on above: Expected: 11/22/2023, Expires: Start: 10-15-2023 ANNUAL PCP TEAM CHRONIC DISEASE VISIT ANNUAL PCP TEAM CHRONIC DISEASE VISIT [facility] Start: 10-01-2023 3 comp foot exam completed DIABETIC FOOT EXAM [facility] Start: 10-01-2023 ANNUAL PCP TEAM CHRONIC DISEASE VISIT ANNUAL PCP TEAM CHRONIC DISEASE VISIT [facility] Start: 10-01-2023 Diabetic foot examination Diabetic Foot Exam [facility] Start: 10-01-2023 Urine microalbumin profile [facility] Comment on above: Postponed from 01/04/1976 (Declined at t his time) Start: 09-23-2023 Covid-19 Vaccine () Covid-19 Vaccine () [facility] Start: 05-30-2023 Advance Directive Discussion Advance Directive Discussion [facility] Start: 05-30-2023 Behavioral Health Screening Behavioral Health Screening [facility] Start: 04-12-2023 Glaucoma screening Dilated Retinal Exam [facility] Start: 04-12-2023 Hepatitis C antibody, confirmatory test DILATED RETINAL EXAM [facility] Start: 04-02-2023 Hemoglobin A1c/Hemoglobin.total in Blood HBA1C [facility] Start: 04-01-2023 ANNUAL PCP TEAM CHRONIC DISEASE VISIT ANNUAL PCP TEAM CHRONIC DISEASE VISIT [facility] Start: 04-01-2023 BP CONTROLLED (<130/80) BP CONTROLLED (<130/80) [facility] Start: 04-01-2023 Hepatitis B screening URINE ALBUMIN:CREATININE RATIO [facility] Start: 04-01-2023 Hepatitis B surface antibody level LDL CHOLESTEROL [facility] Start: 03-09-2023 ANNUAL PCP TEAM CHRONIC DISEASE VISIT ANNUAL PCP TEAM CHRONIC DISEASE VISIT [facility] Start: 03-09-2023 BP CONTROLLED (<130/80) BP CONTROLLED (<130/80) [facility] Start: 03-08-2023 BP CONTROLLED (<130/80) BP CONTROLLED (<130/80) [facility] Start: 01-28-2023 Covid-19 Vaccine () Covid-19 Vaccine () [facility] Start: 01-28-2023 Influenza vaccination [facility] Start: 12-07-2022 End: 12-21-2022 Influenza virus A and B RNA and SARS-CoV-2 (COVID-19) N gene panel - Respiratory specimen by CRYSTAL with probe detection [facility] Work Phone: Comment on above: Expected: 12/07/2022, Expires: 3 Start: 09-30-2022 End: 11-30-2022 Comprehensive metabolic 2000 panel - Serum or Plasma [facility] Work Phone: Comment on above: Expected: 09/30/2022, Expires: 3 Start: 09-30-2022 End: 11-30-2022 T4/FTI/T4U [facility] Work Phone: Comment on above: Expected: 09/30/2022, Expires: 3 Start: 09-30-2022 End: 11-30-2022 Thyrotropin [Units/volume] in Serum or Plasma [facility] Work Phone: Comment on above: Expected: 09/30/2022, Expires: 3 Start: 09-30-2022 End: 11-30-2022 Triiodothyronine (T3) [Mass/volume] in Serum or Plasma [facility] Work Phone: Comment on above: Expected: 09/30/2022, Expires: Start: 09-29-2022 Hemoglobin A1c/Hemoglobin.total in Blood HBA1C [facility] Start: 09-24-2022 ANNUAL PCP TEAM CHRONIC DISEASE VISIT ANNUAL PCP TEAM CHRONIC DISEASE VISIT [facility] Start: 06-09-2022 End: 08-09-2022 Hemoglobin A1c in Blood HGB A1C Lab Routine Hyperglycemia Expected: 06/09/2022, Expires: 08/09/2022 [facility] Work Phone: Comment on above: Expected: 06/09/2022, Expires: Start: 05-30-2022 ADVANCE DIRECTIVE DISCUSSION ADVANCE DIRECTIVE DISCUSSION [facility] Start: 05-30-2022 DEPRESSION ASSESSMENT DEPRESSION ASSESSMENT [facility] Start: 04-14-2022 3 comp foot exam completed DIABETIC FOOT EXAM [facility] Start: 04-09-2022 End: 06-09-2022 Valproate [Mass/volume] in Serum or Plasma VALPROIC A/DEPAKENE Lab Routine Nonintractable epilepsy without status epilepticus, unspecified epilepsy type (HCC) Expected: 04/09/2022, Expires: 06/09/2022 [facility] Work Phone: Comment on above: Expected: 04/09/2022, Expires: 3 Start: 04-03-2022 End: 06-03-2022 Basic metabolic 2000 panel - Serum or Plasma BASIC METABOLIC PNL Lab Routine Elevated serum creatinine Expected: 04/03/2022, Expires: 06/03/2022 [facility] Work Phone: Comment on above: Expected: 04/03/2022, Expires: 3 Start: 04-01-2022 End: 06-01-2022 LIPID PANEL, NONFASTING [facility] Work Phone: Comment on above: Expected: 04/01/2022, Expires: 3 Start: 04-01-2022 End: 06-01-2022 Thyrotropin [Units/volume] in Serum or Plasma [facility] Work Phone: Comment on above: Expected: 04/01/2022, Expires: 3 Start: 03-25-2022 ANNUAL PCP TEAM CHRONIC DISEASE VISIT ANNUAL PCP TEAM CHRONIC DISEASE VISIT [facility] Start: 03-25-2022 BP CONTROLLED (<130/80) BP CONTROLLED (<130/80) [facility] Start: 03-25-2022 Hepatitis B surface antibody level LDL CHOLESTEROL [facility] Start: 03-09-2022 End: 05-09-2022 ALBUMIN/CREAT RATIO RND UR ALBUMIN/CREAT RATIO RND UR Lab Routine Hyperglycemia Expected: 03/09/2022, Expires: 05/09/2022 [facility] Work Phone: Comment on above: Expected: 03/09/2022, Expires: 2 Start: 03-09-2022 End: 05-09-2022 Hepatitis C virus Ab [Presence] in Serum HEP C AB IA W/CONF SCRN Lab Routine Encounter for hepatitis C screening test for low risk patient Expected: 03/09/2022, Expires: 05/09/2022 [facility] Work Phone: Comment on above: Expected: 03/09/2022, Expires: 2 Start: 03-08-2022 End: 05-08-2022 CBC W Auto Differential panel - Blood CBC + DIFF Lab Routine 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 status epilepticus, unspecified epilepsy type (HCC) Expected: 03/08/2022, Expires: 05/08/2022 [facility] Work Phone: Comment on above: Expected: 03/08/2022, Expires: 2 Start: 03-08-2022 End: 05-08-2022 Comprehensive metabolic 2000 panel - Serum or Plasma COMP METABOLIC PANEL Lab Routine 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 status epilepticus, unspecified epilepsy type (HCC) Expected: 03/08/2022, Expires: 05/08/2022 [facility] Work Phone: Comment on above: Expected: 03/08/2022, Expires: 2 Start: 03-08-2022 End: 05-08-2022 Valproate [Mass/volume] in Serum or Plasma VALPROIC A/DEPAKENE Lab Routine 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 status epilepticus, unspecified epilepsy type (HCC) Expected: 03/08/2022, Expires: 05/08/2022 [facility] Work Phone: Comment on above: Expected: 03/08/2022, Expires: 2 Start: 01-28-2022 Influenza vaccination INFLUENZA (#1) [facility] Start: 2022 ADVANCE DIRECTIVE DISCUSSION ADVANCE DIRECTIVE DISCUSSION [facility] Start: 09-24-2021 End: 11-24-2021 ALBUMIN/CREAT RATIO RND UR ALBUMIN/CREAT RATIO RND UR Lab Routine Type 2 diabetes mellitus without complication, without long-term current use of insulin (HCC) Expected: 09/24/2021, Expires: 11/24/2021 [facility] Work Phone: Comment on above: Expected: 09/24/2021, Expires: 2 Start: 09-24-2021 End: 11-24-2021 CBC W Auto Differential panel - Blood CBC + DIFF Lab Routine Type 2 diabetes mellitus without complication, without long-term current use of insulin (HCC) Expected: 09/24/2021, Expires: 11/24/2021 [facility] Work Phone: Comment on above: Expected: 09/24/2021, Expires: 2 Start: 09-24-2021 End: 11-24-2021 Comprehensive metabolic 2000 panel - Serum or Plasma COMP METABOLIC PANEL Lab Routine Type 2 diabetes mellitus without complication, without long-term current use of insulin (HCC) Expected: 09/24/2021, Expires: 11/24/2021 [facility] Work Phone: Comment on above: Expected: 09/24/2021, Expires: 2 Start: 09-24-2021 End: 11-24-2021 Hemoglobin A1c/Hemoglobin.total in Blood HGB A1C Lab Routine Type 2 diabetes mellitus without complication, without long-term current use of insulin (HCC) Expected: 09/24/2021, Expires: 11/24/2021 [facility] Work Phone: Comment on above: Expected: 09/24/2021, Expires: 2 Start: 09-24-2021 End: 11-24-2021 Hepatitis C virus Ab [Presence] in Serum HEP C AB IA W/CONF SCRN Lab Routine Need for hepatitis C screening test Expected: 09/24/2021, Expires: 11/24/2021 [facility] Work Phone: Comment on above: Expected: 09/24/2021, Expires: 2 Start: 09-24-2021 End: 11-24-2021 HIV 1+2 Ab [Presence] in Serum or Plasma by Immunoassay HIV 1 2 COMBO(AG/AB),WITH REFLEX TO DIFFERENTIATION Lab Routine Screening for HIV (human immunodeficiency virus) Expected: 09/24/2021, Expires: 11/24/2021 [facility] Work Phone: Comment on above: Expected: 09/24/2021, Expires: 2 Start: 09-24-2021 End: 11-24-2021 LIPID PANEL BASIC LIPID PANEL BASIC Lab Routine Type 2 diabetes mellitus without complication, without long-term current use of insulin (HCC) Expected: 09/24/2021, Expires: 11/24/2021 [facility] Work Phone: Comment on above: Expected: 09/24/2021, Expires: 2 Start: 09-24-2021 End: 11-24-2021 VALPROIC A/DEPAKENE VALPROIC A/DEPAKENE Lab Routine Seizures (HCC) Expected: 09/24/2021, Expires: 11/24/2021 [facility] Work Phone: Comment on above: Expected: 09/24/2021, Expires: 2 Start: 09-23-2021 Hemoglobin A1c/Hemoglobin.total in Blood HBA1C [facility] Start: 09-08-2021 End: 11-08-2021 ALBUMIN/CREAT RATIO RND UR ALBUMIN/CREAT RATIO RND UR Lab Routine Type 2 diabetes mellitus without complication, without long-term current use of insulin (HCC) Expected: 09/08/2021, Expires: 11/08/2021 [facility] Work Phone: Comment on above: Expected: 09/08/2021, Expires: 2 Start: 09-08-2021 End: 11-08-2021 Hemoglobin A1c/Hemoglobin.total in Blood HGB A1C Lab Routine Type 2 diabetes mellitus without complication, without long-term current use of insulin ([facility]) Expected: 09/08/2021, Expires: 11/08/2021 [facility] Work Phone: Comment on above: Expected: 09/08/2021, Expires: 2 Start: 09-08-2021 End: 11-08-2021 SCHEDULE LAB TESTING SCHEDULE LAB TESTING Lab Routine Expected: 09/08/2021, Expires: 11/08/2021 [facility] Work Phone: Comment on above: Expected: 09/08/2021, Expires: 2 Start: 07-14-2021 COVID-19 VACCINE (3 - Booster for Moderna series) COVID-19 VACCINE (3 - Booster for Moderna series) [facility] Start: 05-30-2021 DEPRESSION ASSESSMENT DEPRESSION ASSESSMENT [facility] Start: 04-08-2021 COVID-19 VACCINE (3 - Booster for Moderna series) COVID-19 VACCINE (3 - Booster for Moderna series) [facility] Start: 04-08-2021 COVID-19 VACCINE (3 - Moderna series) COVID-19 VACCINE (3 - Moderna series) [facility] Start: 07-23-2020 PROSTATE CANCER SCREENING DISCUSSION PROSTATE CANCER SCREENING DISCUSSION [facility] Start: 03-01-2019 PNEUMOCOCCAL: 65+ (2 - PCV) PNEUMOCOCCAL: 65+ (2 - PCV) [facility] Start: 03-02-2017 Adult depression screening assessment DEPRESSION SCREENING [facility] Start: 2017 Hepatitis B Vaccine (1 of 3 - Risk 3-dose series) Hepatitis B Vaccine (1 of 3 - Risk 3-dose series) [facility] Start: 2017 RSV Vaccine (1 - 1-dose 60+ series) RSV Vaccine (1 - 1-dose 60+ series) [facility] Start: 2002 COLOGUARD (FIT-DNA) COLOGUARD (FIT-DNA) [facility] Start: 2002 Colonoscopy COLONOSCOPY [facility] Start: 2002 COLORECTAL CANCER SCREENING COLORECTAL CANCER SCREENING [facility] Start: [address] COLONOGRAPHY [facility] Start: 2002 FECAL OCCULT BLOOD FECAL OCCULT BLOOD [facility] Start: 2002 Screening for malignant neoplasm of colon [facility] Start: 2002 SIGMOIDOSCOPY SIGMOIDOSCOPY [facility] Start: 01-04-1976 Urine microalbumin profile [facility] Start: 1975 BP CONTROLLED (<130/80) BP CONTROLLED (<130/80) [facility] Start: 1975 HEPATITIS C SCREENING HEPATITIS C SCREENING [facility] Start: 1975 HIV SCREENING HIV SCREENING [facility] Start: 1967 3 comp foot exam completed DIABETIC FOOT EXAM [facility] Start: 1967 Hepatitis B screening URINE ALBUMIN:CREATININE RATIO [facility] Start: 1967 Hepatitis C antibody, confirmatory test DILATED RETINAL EXAM [facility] Start: 1962 COVID-19 VACCINE (1) COVID-19 VACCINE (1) [facility] [facility] Start: 1955 ABDOMINAL AORTIC ANEURYSM SCREENING ABDOMINAL AORTIC ANEURYSM SCREENING [facility] Start: 1955 Abdominal aortic aneurysm screening Abdominal Aortic Aneurysm Screening [facility] COLOGUARD COLOGUARD Lab Ro utine Screening for colon cancer Ordered: 09/24/2021 [facility] Work Phone: Comment on above: Ordered: 09/24/2021 COLOGUARD COLOGUARD Lab Ro utine Screening for colon cancer Ordered: 09/30/2022 [facility] Work Phone: Comment on above: Ordered: 09/30/2022 COLOGUARD COLOGUARD Lab Ro utine Screening for colon cancer Ordered: 11/22/2023 [facility] Comment on above: Ordered: 11/22/2023 End: 03-10-2023 Echocardiography ECHO Cardiology Routine 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 (HCC) Non-rheumatic tricuspid valve insufficiency Mitral valve insufficiency, unspecified etiology Primary pulmonary HTN (HCC) Enlarged thoracic aorta (HCC) 1 Occurrences starting 03/10/2022 until 03/10/2023 [facility] Work Phone: Comment on above: 1 Occurrences starting 03/10/2022 until 03/10/2023 End: 03-08-2023 EPIL EEG ROUTINE EPIL EEG ROUTINE NEUROLOGY Routine 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 status epilepticus, unspecified epilepsy type (HCC) 1 Occurrences starting 03/08/2022 until 03/08/2023 [facility] Work Phone: Comment on above: 1 Occurrences starting 03/08/2022 until 03/08/2023 End: 05-12-2023 Mra head w/o contrst material MRA BRAIN WO IVCON Radiology Routine Other symptoms and signs involving the nervous system 1 Occurrences starting 04/12/2022 until 05/12/2023 [facility] Work Phone: Comment on above: 1 Occurrences starting 04/12/2022 until 05/12/2023 End: 05-12-2023 Mra neck w/o contrst material MRA CAROTID WO IVCON Radiology Routine Other symptoms and signs involving the nervous system 1 Occurrences starting 04/12/2022 until 05/12/2023 [facility] Work Phone: Comment on above: 1 Occurrences starting 04/12/2022 until 05/12/2023 End: 04-07-2023 Mri brain brain stem w/o contrast material MRI BRAIN WO IVCON Radiology Routine 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 status epilepticus, unspecified epilepsy type (HCC) 1 Occurrences starting 03/08/2022 until 04/07/2023 [facility] Work Phone: Comment on above: 1 Occurrences starting 03/08/2022 until 04/07/2023 Patient Education ED, Migraine (Classical ) [facility] Work Phone: Patient referral [facility] Work Phone: [employer] COVI D-19 BIVALENT BOOSTER VACCINE, AGE 12+ YR PFIZER-BIONTECH COVID-19 BIVALENT BOOSTER VACCINE, AGE 12+ YR Immunization/Injection Routine Need for COVID-19 vaccine Ordered: 03/09/2022 [facility] Work Phone: Comment on above: Ordered: 03/09/2022 End: 10-01-2023 PVR LEG NOAM VAS LAB P[facility] Vascular Lab Routine Peripheral vascular disease (HCC) 1 Occurrences starting 09/30/2022 until 10/01/2023 [facility] Work Phone: Comment on above: 1 Occurrences starting 09/30/2022 until 10/01/2023 End: 12-21-2024 US Abdominal Aorta for screening US SCREENING FOR AAA Radiology Routine Screening for abdominal aortic aneurysm 1 Occurrences starting 11/22/2023 until 12/21/2024 [facility] Comment on above: 1 Occurrences starting 11/22/2023 until 12/21/2024 End: 05-01-2023 Us abdominal aorta real time screen study aaa US SCREENING FOR AAA Radiology Routine Screening for AAA (abdominal aortic aneurysm) 1 Occurrences starting 04/01/2022 until 05/01/2023 [facility] Work Phone: Comment on above: 1 Occurrences starting 04/01/2022 until 05/01/2023 End: 10-30-2023 Us abdominal aorta real time screen study aaa US SCREENING FOR AAA Radiology Routine Screening for AAA (abdominal aortic aneurysm) 1 Occurrences starting 09/30/2022 until 10/30/2023 [facility] Work Phone: Comment on above: 1 Occurrences starting 09/30/2022 until 10/30/2023 [facility] Immunizations Immunization Date Immunization Notes Care Provider [facility] 07-10-2024 influenza, high dose seasonal, preservative-free Dr. Aric Zapien MD Work Phone: [facility] 11-28-2023 COVID-19 vaccine, ag e 12+ yr, season ([employer] CYNTHIA Max PA-C Work Phone: [facility] 05-24-2023 COVID-19 vaccine, ag e 12+ yr, season ([employer] Aric Zapien MD Work Phone: [facility] 05-24-2023 influenza (HD-IIV4) vaccine, age 65+ yr, high dose, quadrivalent, PF (FLUZONE HIGH-DOSE) Aric Zapien MD Work Phone: [facility] 05-24-2023 influenza virus vaccine, unspecified formulation NA Mansoor PERRY Work Phone: [facility] 03-12-2022 influenza, high dose seasonal, preservative-free Aric Zapien MD Work Phone: [facility] 03-12-2022 influenza virus vaccine, unspecified formulation Mri (I-Stat/1.5t) Work Phone: [facility] 03-09-2022 pneumococcal Conjuga te, unspecified formulation [employer] Work Phone: [facility] Work Phone: 03-09-2022 pneumococcal (PCV20) vaccine, 20 valent (PREVNAR 20) NA [employer] Work Phone: [facility] Work Phone: 03-25-2021 influenza, injectabl e, quadrivalent, contains preservative Aric Zapien MD Work Phone: [facility] 02-11-2021 COVID-19 original vaccine, full dose, monovalent (MODERNA) Aric Zapien MD Work Phone: [facility] 01-14-2021 COVID-19 original vaccine, full dose, monovalent (MODERNA) Aric Zapien MD Work Phone: [facility] 02-29-2020 influenza, high dose seasonal, preservative-free Aric Zapien MD Work Phone: [facility] 02-29-2020 influenza, injectabl e, quadrivalent, preservative free Aric Zapien MD Work Phone: [facility] 02-29-2020 zoster vaccine recombinant Aric Zapien MD Work Phone: [facility] 10-31-2019 zoster vaccine recombinant Aric Zapien MD Work Phone: [facility] 03-31-2019 Influenza, injectabl e, Madin Brigitte Canine Kidney, preservative free, quadrivalent Aric Zapien MD Work Phone: [facility] 03-31-2019 influenza, seasonal, injectable Aric Zapien MD Work Phone: [facility] 03-01-2018 influenza, injectabl e, quadrivalent, preservative free Aric Zapien MD Work Phone: [facility] 03-01-2018 pneumococcal polysaccharide vaccine, 23 valent Aric Zapien MD Work Phone: [facility] 03-22-2017 influenza, seasonal, injectable Aric Zapien MD Work Phone: [facility] 03-22-2017 influenza, seasonal, injectable, preservative free Aric Zapien MD Work Phone: [facility] 04-29-2015 influenza, injectabl e, quadrivalent, preservative free Dr. Aric Zapien Work Phone: [facility] 04-29-2015 influenza, seasonal, injectable [facility] Work Phone: 04-29-2015 influenza, seasonal, injectable, preservative free Aric Zapien MD Work Phone: [facility] NEGATED: Highlighted row has not occurred!03-09-2022 COVID-19 booster vaccine, age 12+ yr, bivalent (PFIZER-BIONTECH) CYNTHIA Max PA-C Work Phone: [facility] Work Phone: Comment on above: Deferred: Postponed Payers Date Payer Category Payer Medicare [id number] 2024 Self-pay [id number] 2023 Medicare (Managed Care) [employer]IE [employer] ADVANTAGE HMO [id number] 2023 Unknown [facility] MEDICARE ADVANTAGE HMO [id number] 2023-Present [phone] [address] [place] [address] O [id number] 2023 Medicare [id number] 2023 Unknown [id number] [address] [facility] MEDICAID [id number] 2019-Present [phone] [address] [place] [address] Medicaid [id number] 2018 Medicare [facility] MEDICARE [facility] DUAL COMPLETE HMO SNP [id number] 2018-Present [phone] [address] [place] [address] Medicare [id number] 2018 Medicare [id number] 2017 Medicaid [id number] 2017 Medicaid [id number] Unknown [employer] [id number] Unknown [facility] MCRDUAL COMP HMO [id number] Unknown [place] AUTH REQUIR ED SEE NOTE [id number] Unknown [facility] MCRDUAL COMPLETE [id number] Unknown [id number] 462 Unknown [id number]. 462 Unknown [id number]. 462 Unknown [id number]. 462 Unknown [id number] [id number]. 462 Unknown [id number]. 462 Unknown [id number] 2.16.840.1.872207.3.579.2. 462 Unknown [id number] 2.16.840.1.336268.3.579.2. 462 Unknown [id number] 2.16.840.1.384446.3.579.2. 462 Unknown [id number] 2.16.840.1.966410.3.579.2. 462 Unknown [id number] 2.16.840.1.966244.3.579.2. 462 Unknown [id number] 2.16.840.1.733716.3.579.2. 462 Unknown [id number] 2.16.840.1.764262.3.579.2. 462 Unknown [id number] 2.16.840.1.198320.3.579.2. 462 Unknown [id number] 2.16.840.1.878712.3.579.2. 462 Unknown [id number] [id number]. 462 Unknown [id number]. 462 Social History Date Type Detail Facility Start: 07-23-2015 End: 03-08-2022 Tobacco smoking status NHIS Ex-smoker [facility] Start: 07-23-2015 End: 03-08-2022 Tobacco use and exposure Smokeless tobacco non-user [facility] Start: 04-14-2021 End: 06-22-2024 Alcohol intake Not Asked [facility] Start: 07-23-2015 End: 03-08-2022 Tobacco Comment Quit in 2005 [facility] Start: 1955 Sex Assigned At Not on file [facility] Start: 02-10-2021 End: 04-01-2022 Exposure to SARS-CoV-2 (event) Not sure [facility] History of tobacco use Current smoker [facility] Start: 02-15-2022 End: 02-25-2022 Exposure to SARS-CoV-2 (event) Unable to assess [facility] Work Phone: Start: 03-06-2022 End: 06-23-[address] [facility] Unknown if ever smoked [facility] Start: 09-15-2014 None [facility] Start: 09-15-2014 Alone;- [facility] Start: 04-27-2015 Non-smoker [facility] Start: 1955 Sex Assigned At Male [facility] Start: 09-30-2022 End: 12-07-2022 History of Social function [facility] Work Phone: Start: 09-30-2022 End: 12-07-2022 Tobacco use panel [facility] Work Phone: Adult Depression Screening Assessment 0 [facility] Work Phone: Start: 09-11-2024 Sex Male (finding) [facility] Medical Equipment Procedure Code Equipment Code Equipment Origin al Text Equipment Identifier Dates Test blood sugar (s) 1 times daily. Dx: Type 2 DM - Uncontrolled E11.65 Insulin: No [id number], [id number] Start: 04-01-2022 Comment on above: Test blood sugar(s) 1 times daily. Dx: Type 2 DM - Uncontrolled E11.65 Insulin: No Goals Date Patient Goal Desired Activity /State Functional Status Date Assessment Result Facility 07-11-2024 Functional status Chair [facility] Work Phone: 07-10-2024 Functional status Tolerates Activity Well [facility] Work Phone: 03-09-2022 Are you deaf, or do you have serious difficulty hearing No [facility] 03-09-2022 Are you blind, or do you have serious difficulty seeing, even when wearing glasses No [facility] 03-09-2022 Do you have serious difficulty walking or climbing stairs No [facility] 03-09-2022 Do you have difficul ty dressing or bathing No [facility] 03-09-2022 Because of a physica l, mental, or emotional condition, do you have difficulty doing errands alone such as visiting a physician's office or shopping No [facility] Mental Status Date Assessment Result Facility 07-11-2024 Cognitive function Voice/Name [facility] Work Phone: 03-09-2022 Because of a physica l, mental, or emotional condition, do you have serious difficulty concentrating, remembering, or making decisions Yes [facility] 03-06-2022 Cognitive function Level Of Cons ciousness Awake;Alert;Appropriate;Fol lows Commands;Responds to vocal stimuli [facility] Work Phone: Clinical Notes 06-27-2020 to 10-25-2024 Telephone Encounter - Nida Root LPN - 10/25/2024 12:23 PM EDTTelephone Encounter - Nida Root LPN - 10/25/2024 12:23 PM EDTTelephone Encounter - Felicita Bolden MA - 07/16/2024 3:25 PM EST Note Date & Type Note Facility 10-25-2024 Telephone encount er Note No show letter #2 sent to patient. [facility] 10-25-2024 Miscellaneous Notes Formattin g of this note might be different from the original. No show letter #2 sent to patient. documented in this encounter [facility] 07-16-2024 Telephone encount er Note Patient canceled his appointment on 07/12/24 with Isa Stevenson. He was discharged from [facility] on 07/11/24 DX: AFIB RVR, debility. Called and spoke with ex- Flor, his emergency contact, and she said he is in [facility] for rehab with the hopes for permanent placement afterwards. Felicita Bolden MA July 16, 2024 3:30 PM [facility] 07-16-2024 Miscellaneous Notes Formattin g of this note might be different from the original. Patient canceled his appointment on 07/12/24 with Isa Stevenson. He was discharged from [facility] on 07/11/24 DX: AFIB RVR, debility. Called and spoke with ex- Flor, his emergency contact, and she said he is in [facility] for rehab with the hopes for permanent placement afterwards. Felicita Bolden MA July 16, 2024 3:30 PM documented in this encounter [facility] 07-11-2024 Note [facility] Medical Records Department [address] [place] [address] Discharge Summary 07/11/24 0914 MR#: [id number] Acct: [id number] Name: REINA SULLIVAN Rep #: [id number] : 1955 69 From: Yann Ascencio DO PCP: Dr. Aric Zapien MD Status:ADM IN Location: [place] [address] Providers Date of Admission: 07/09/24 Primary Care [...] Physician: Aric Zapien Performed By: Ann-Marie Cao, RDCS, RVT D/C Instructions Discharge Diet: Low [...] mg Simvastatin 80mg (more content not included)... [facility] 07-09-2024 Evaluation note Diagnosis Onset Date Resolution Atrial fibrillation with rapid ventricular response resolved July 09 10:34am Bilateral ankle pain resolved 2024 10:34am Bilateral leg and foot pain resolved July 09 10:34am [facility] Work Phone: [phone]) 481-389801-28-2025 Telephone encounter Note* Telephone Encounter - Rodolfo Werner - 06/26/2024 8:25 AM EST I left a vm for patient to call when available to schedule an appt fro his fracture referral in hischart [facility]01-28-2025 Miscellaneous Notes* Telephone Encounter - Rodolfo Werner - 06/26/2024 8:25 AM EST I left a vm for patient to call when available to schedule an appt fro his fracture referral in hischart [facility] Telephone encounter Note * Telephone Encounter - Felicita Bolden MA - 06/25/2024 11:51 AM EST Spoke with ex , Halima, and she was made aware of results and provider message. She was also given the number to call and schedule his appointment for spine. She verbalizes understanding. Felicita Bolden MA June 25, 2024 11:52 AM [facility]01-27-2025 Miscellaneous Notes* Telephone Encounter - Felicita Bolden [...] Halima Sullivan. 06/16/24 telephone encounter routed to [facility] for back, neck, and spine pool again for schedulingconsultation with orthopaedic ear nose and throat specialist. * Telephone Encounter - Karla Ferguson [...] have a compression fracture. [facility] Telephone encounter Note * Telephone Encounter - Mecca Summers - 06/25/2024 10:58 AM EST Patient returned missed call and received the provider's message. He voiced understanding. Patient requests all medical updates be discussed with his ex-spouse, Halima Sullivan. 06/16/24 telephone encounter routed to [facility] for back, neck, and spine pool again for schedulingconsultation with orthopaedic ear nose and throat specialist. [facility]01-27-2025 Telephone encounter Note* Telephone Encounter - Karla Ferguson MA - 06/25/2024 10:47 AM EST Message left for pt to call back for results. Karla Ferguson MA [facility]01-27-2025 Telephone encounter Note* Telephone Encounter - Florinda [...] surgery. He does have a compression fracture. [facility]01-24-2025 Telephone encounter Note* Telephone Encounter - Florinda Stevenson APRN.CNP - 06/22/2024 5:03 PM EST Yes. An orthopedic ear nose and throat specialist. Does not need surgery but they can evaluate for kyphoplasty- setting the compression if needed [facility]01-24-2025 Miscellaneous Notes* Telephone Encounter - Florinda Stevenson APRN.CNP - 06/22/2024 5:03 PM EST Yes. An orthopedic ear nose and throat specialist. Does not need surgery but they [...] appropriately. Rebecca Dumas RN documented in this encounterOur [facility] Miscellaneous Notes* Telephone Encounter - Mecca Summers - 06/22/2024 4:41 PM EST [facility] unauthorized to schedule for this department. Patient notified that JARRETT routed referralto the appropriate department and their facility will contact patient for scheduling. Patient requests all future medical information and appointment scheduling be disclosed to ex-spouse, Flor Sullivan, only. * Telephone Encounter - Felicita Bolden MA - 06/22/2024 4:29 PM EST Patient notified of results and transferred to packing inspector * Telephone Encounter - Florinda Stevenson APRN.CNP [...] if pt knows he is scheduled at [facility] * Telephone Encounter - Aric Zapien MD - 06/19/2024 10:50 AM EST Please call before (I suspect was put in wrong place) * Telephone Encounter - Aric Zapien MD - 06/16/2024 8:47 AM EST Schedule to see me at [facility] in person on 06/21/24. Please make sure they are aware apptthey scheduled is at that office and not [place] documented in [facility] Telephone encounter Note * Telephone Encounter - Mecca Summers - 06/22/2024 4:41 PM EST [facility] unauthorized to schedule for this department. Patient notified that JARRETT routed referralto the appropriate department and their facility will contact patient for scheduling. Patient requests all future medical information and appointment scheduling be disclosed to ex-spouse, Flor Sullivan, only. [facility]01-24-2025 Telephone encounter Note* Telephone Encounter - Rebecca Dumas RN - 06/22/2024 4:36 PM EST Asking for provider to clarify pt's order for [facility]. Does patient need to see a surgeon? Please advise so that [facility] staff can schedule patient appropriately. Rebecca Dumas RN [facility]01-24-2025 Telephone encounter Note* Telephone Encounter - Felicita Bolden MA - 06/22/2024 4:29 PM EST Patient notified of results and transferred to packing inspector [facility]01-24-2025 Telephone encounter Note* Telephone Encounter - Florinda Stevenson APRN.CNP - 06/22/2024 3:34 PM EST Please let patient know that he has a lumbar 1 compression fracture of the endplate. I am going to send him to a spine surgeon to review. Please facilitate primaryscheduling [facility]01-24-2025 NoteHNO ID: [id number] Author: EKATERINA BELTRE Tech Service: ? Author [...] PATIENT PRESENTS WITH AN IMPLANTABLE OR ATTACHED SUSTAINABLE DESIGN COORDINATOR: No RADIOLOGY DEPARTMENT: General X-ray: Exam(s) Completed: Spine X-Ray(s): Lumbar AP / LAT / L5-S1 PERIPHERAL IV DATA: Not applicable SIGNED BY: Rosa Wakefield June 22, 2024 2:52 [facility]01-24-2025 Instructions* Patient Instructions* Florinda Stevenson APRN.CNP - 06/22/2024 1:59 PM EST 1) Check blood and urine in lab 2) Xray lumbar spine 3) Methocarbamol 500 mg 3 x day as needed for low back pain 4) Follow up in 2 weeks documented in [facility] encounterOur [facility]25 NoteHNO ID: [id number] Author: FLORINDA STEVENSON APRN.CNP Service: ? Author [...] MEDICAL HISTORY Diagnosis Date Atrial fibrillation ([facility]) Dr. 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 Huston TBI (traumatic brain injury) ([facility]) 2 times PAST SURGICAL HISTORY Procedure Laterality [...] M54.50 Concern for compressi (more content not included)...[facility] 06-22-2024 History of Present illness Narrative* Florinda Stevenson APRN.HOME HEALTH CNA - 06/22/2024 1:35 PM EST This is [...] Dr. 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 Huston TBI (traumatic brain injury) ([facility]) 2 times PAST SURGICAL HISTORY Procedure Laterality [...] as needed for worsening/no improvement. Florinda Stevenson APRN.HOME HEALTH CNA documented in [facility] encounterOur [facility] Telephone encounter Note * Telephone Encounter - Felicita Bolden MA - 06/19/2024 11:20 AM EST Please call pt and ask if pt knows he is scheduled at [facility]01-21-2025 Telephone encounter Note* Telephone Encounter - Aric Zapien MD - 06/19/2024 10:50 AM EST Please call before (I suspect was put in wrong place) [facility]01-18-2025 Telephone encounter Note* Telephone Encounter - Aric Zapien MD - 06/16/2024 8:47 AM EST Schedule to see me at [facility] in person on 06/21/24. Please make sure they are aware apptthey scheduled is at that office and not [place] [facility]01-16-2025 Telephone encounter Note* Telephone Encounter - Sherwood Lulu Bryant - 06/14/2024 10:31 AM EST Patient called to request medication. He stated that he will need the medication by tomorrow, 06/15/24. Scheduled patient due to he fell on ice, but he declined any other days/times/providers. He will only see Dr. Zapien. He stated he can wait. He can only come on a . Scheduled at his request on 06/21/24. [facility]01-16-2025 Miscellaneous Notes* Telephone Encounter - Sherwood Lulu Bryant - 06/14/2024 10:31 AM EST [...] 13, 2024 9:08 AM documented in this encounterOur Lady Of [facility]01-15-2025 Telephone encounter Note * Telephone Encounter - [...] Courtney Crane June 13, 2024 9:08 AM [facility]12-30-2024 NoteHNO ID: [id number] Author: MAYURI PEREZ MA Service: ? Author Type: Last Pattern Grader Type: Progress Notes Filed: 05/28/2024 19:08 Note Text: POPULATION HEALTH NAVIGATION OUTREACH Action/FYI MCAIP OUTREACH Reason for Outreach Suspected Conditions Patient Contacted: Unable or unnecessary to reach patient: Left message Navigation Signature: Mayuri Perez MA May 28, 2024 7:07 [facility]12-30-2024 History of Present illness Narrative* Mayuri Perez MA - 05/28/2024 7:07 PM EST POPULATION HEALTH NAVIGATION OUTREACH Action/FYI MCAIP OUTREACH Reason for Outreach Suspected Conditions Patient Contacted: Unable or unnecessary to reach patient: Left message Navigation Signature: Mayuri Perez MA May 28, 2024 7:07 PM documented in this encounterOur Lady Of [facility]24 NotePatient Outreach (NETNAV) REINA SULLIVAN ([id number]) 1955 M Date Time Provider Department 05/28/24 MAYURI PEREZ During your visit today, we recorded the following information about you: Mayuri Perez MA 05/28/2024 7:08 PM Signed POPULATION HEALTH NAVIGATION OUTREACH Action/FYI MCAIP OUTREACH Reason for Outreach Suspected Conditions Patient Contacted: Unable or unnecessary to reach patient: Left message Navigation Signature: Mayuri Perez MA May 28, 2024 7:07 PM Allergies As of Date: 05/28/2024 Noted Allergy Reaction DYE 03/02/2016 14 - Other: See Comments Comments: used for heart cath Date Reviewed: 11/22/2023 Reviewed by: Mark, Florinda, PEDIATRIC CRITICAL CARE NURSE - Fully Assessed Reason for Visit: Population Health Navigation Outreach [3910] Cmt: [facility] OUTREACH Prescriptions as of 05/28/2024 - divalproex [...] unspecified na*09/30/2022 Left atrial enlargement [I51.7] 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 Reina Sullivan is identified through data from [employer] (insurer) as a potential candidate for statin [...] indicates patient has hx of CVA and CA, should be on high-intensity statin for secondary prevention. Patient scheduled to see PCP on 05/25. ALLERGIES Allergen Reactions Dye Other: See Comments used for heart cath PAST MEDICAL HISTORY Diagnosis Date Atrial fibrillation ([facility]) Dr. 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 Huston TBI (traumatic brain injury) ([facility]) 2 times Cholesterol, Total (mg/dL) Date Value [...] provider Edward Pleitez RPh documented in this encounterOur Lady Of [facility]-20-2024 NoteHNO ID: [id number] Author: EDWARD PLEITEZ [facility] Service: ? Author Type: Pharmacist Type: Progress Notes Filed: 04/18/2024 11:12 Note Text: Pt chart reviewed as part of population health initiative focused on statin use in patients with diabetes (DM) or cardiovascular disease (CVD). Reina Sullivan is identified through data from [employer] (insurer) as a potential candidate for statin [...] indicates patient has hx of CVA and CA, should be on high-intensity statin for secondary prevention. Patient scheduled to see PCP on 05/25. ALLERGIES Allergen Reactions Dye Other: See Comments used for heart cath PAST MEDICAL HISTORY Diagnosis Date Atrial fibrillation ([facility]) Dr. 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 Huston TBI (traumatic brain injury) ([facility]) 2 times Cholesterol, Total (mg/dL) Date Value [...] review: Pending outreach to provider [facility] NoteHNO ID: [id number] Author: EDWARD PLEITEZ RPh Service: ? Author Type: Pharmacist Type: Progress Notes Filed: 05/28/2024 15:55 Note Text: Appears patient was a no-show to PCP visit on 05/25. Edward Pleitez PharmD, [facility] Primary Care Clinical PharmacistPrem[facility]11-[facility]-2024 NotePatient Outreach (PHMEWO) REINA SULLIVAN ([id number]) 1955 M Date Time Provider Department 04/18/24 EDWARD PLEITEZ During your visit today, we recorded the following information about you: Edward Pleitez RPh 04/18/2024 11:12 AM Signed Pt chart reviewed as part of population health initiative focused on statin use in patients with diabetes (DM) or cardiovascular disease (CVD). Reina Sullivan is identified through data from [employer] (insurer) as a potential candidate for statin [...] indicates patient has hx of CVA and CA, should be on high-intensity statin for secondary prevention. Patient scheduled to see PCP on 05/25. ALLERGIES Allergen Reactions Dye Other: See Comments used for heart cath PAST MEDICAL HISTORY Diagnosis Date Atrial fibrillation ([facility]) Dr. 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 Huston TBI (traumatic brain injury) ([facility]) 2 times Cholesterol, Total (mg/dL) Date Value [...] review: Pending outreach to provider Edward Pleitez [facility] Edward Pleitez RP 05/28/2024 3:55 PM Signed Appears patient was a no-show to PCP visit on 05/25. Edward Pleitez PharmD, [facility] Primary Care Clinical Pharmacist Allergies As of [...] unspecified na*09/30/2022 Left atrial enlargement [I51.7] 09/30/2022 assisted current use of 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 *09/30/2022 Migraine headac (more content not included)...[facility] 03-22-2024 Telephone encounter Note* Telephone Encounter - Merline Jimenez RN - 03/22/2024 2:44 PM EDT Patient does not see endocrinology. Will route to PCP office to make them aware. Merline Jimenez RN March 22, 2024 2:44 PM [facility]10-24-2024 Miscellaneous Notes* Telephone Encounter - Merline Jimenez RN - 03/22/2024 2:44 PM EDT Patient does not see endocrinology. Will route to PCP office to make them aware. Merline Jimenez RN March 22, 2024 2:44 PM * Telephone Encounter - Vanna Flores - 03/21/2024 3:31 PM EDT [employer] states that their records show patient has diabetes but does not take statins. AMA recommendthat patient take a statin to reduce cardiovascular risk. documented in this encounterOur Lady Of [facility]10-[facility] Telephone encounter Note * Telephone Encounter - Alo HaroonVanna - 03/21/2024 3:31 PM EDT [employer] states that their records show patient has diabetes but does not take statins. AMA recommendthat patient take a statin to reduce cardiovascular risk. [facility]10-17-2024 NoteHNO ID: [id number] Author: YOLANDA STRATTON MA Service: ? Author Type: Last Pattern Grader Type: Progress Notes Filed: 03/15/2024 08:28 Note Text: POPULATION HEALTH NAVIGATION OUTREACH Action/FYI Letter received and sent to be mailed. Navigation Signature: Yolanda Stratton MA March 15, 2024 8:27 [facility]10-09-2024 NoteHNO ID: [id number] Author: JORDY HERNANDEZ MA Service: ? 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 for below [...] 07, 2024 7:34 AM documented in this encounterOur Lady Of [facility]-2024 NotePatient Outreach (NETNAV) REINA SULLIVAN ([id number]) 1955 M Date Time Provider Department 03/07/24 JORDY HERNANDEZ During your visit today, we recorded the following information about you: Jordy Hernandez MA 03/07/2024 10:40 AM Signed POPULATION HEALTH NAVIGATION OUTREACH Action/FYI 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 Halima notes that she helps patient " to a certain extent." Halima and Nikkie spoke about [facility] Older Adult Resource Directory. Halima asks that Sw mail patient this guide for him to review and see what services are available in the community. Nikkie will also attach [facility] [employer] Older Adult support program and [facility] information. [facility]06-27-2024 Miscellaneous Notes* Telephone Encounter - Harvey Hazel MSW - 11/24/2023 12:54 PM EDT Nikkie called and spoke with Halima, patient ex in regards to service assistance options in the community. Halima notes that she helps patient " to a certain extent." Halima and Nikkie spoke about [facility] Older Adult Resource Directory. Halima asks that Sw mail patient this guide for him to review and see what services are available in the community. Sw will also attach Community [facility] Older Adult support program and [facility] information. documented in this encounterOur Lady Of [facility]06-25-2024 Instructions* Patient Instructions* Jaison Max PA-C - 11/22/2023 3:54 PM EDT Nail dremmel for nail trimming might help, would need assistance documented in this encounterOur Lady Of [facility]06-25-2024 History of Present illness Narrative* Jaison Max PA-C - 11/22/2023 3:40 PM EDT 68 year old male with c/o 6-month follow-up Last visit Dr. 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 Aric Huston Current medications: Apixaban 5 mg twice daily Divalproex DR 500 mg 1 tablet twice daily No seizures. 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 James: - primary rhythm atrial [...] none. Lab review: 06/23/2023 external lab work [facility], Chemistry abnormals: BUN 21 Serum creatinine 1.59H, [...] Lymph 1.00 - 4.00 k/uL 1.57 2.35 Dupage% % 9.8 11.3 Abs Dupage <0.87 k/uL 0.66 0.98 (H) Eosin% % [...] Dr. 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 Screening for [...] plan Jaison Max PA-C documented in this encounterOur Lady Of [facility]06-25-2024 NoteHNO ID: [id number] Author: Jaison MAX PA-C Service: ? Author Type: Physician Chinese Herbalist Type: Progress Notes Filed: 11/28/2023 09:49 Note Text: 68 year old male with c/o 6-month follow-up Last visit Dr. 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 Aric Huston Current medications: Apixaban 5 mg twice daily Divalproex DR 500 mg 1 tablet twice daily No seizures. 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 Non-rheumatic tricuspid valve insufficiency Mitral valve insufficiency, unspecified etiology Left atrial enlargement Enlarged thoracic aorta (hcc) Primary pulmonary htn (hcc) Primary hypertension Mixed hyperlipidemia Cardiovascular interval hx: Last cardiology visit 08/04/2023 with Rakel Hodgson, CULTURIST-C: Stable from a cardiac standpoint 10/14/2022 ECG: Atrial fibrillation with rapid ventricular response, nonspecific ST abnormality 11/19/2020 ED visit SOB with negative work up with normal EKG, CXR, troponins, routine lab 10/20/2022 EKG atrial fibrillation with rapid ventricular response, nonspecific ST abnormality 07/14/[address] James: stable AF, no concerns 09/08/2015 Dr. James [place]: cardiac cath: no disease 09/08/2015 cardiac [address] [facility] [address] James: - primary rhythm atrial [...] Lymph 1.00 - 4.00 k/uL 1.57 2.35 Dupage% % 9.8 11.3 Abs Dupage <0.87 k/uL 0.66 0.98 (H) Eosin% % [...] / Complications: hypertension, hyperlipide (more content not included)...[facility]06-11-2024 Telephone encounter Note* Telephone Encounter - Yolanda [...] Yolanda Bryant November 08, 2023 10:11 AM [facility]06-11-2024 Miscellaneous Notes* Telephone Encounter - Yolanda Newman [...] 08, 2023 10:11 AM documented in this encounterOur Lady Of [facility]06-03-2024 Telephone encounter Note * Telephone Encounter - [...] 11/22/2023 Please advise. Thank you. Bree Johnson. [facility]06-03-2024 Miscellaneous Notes* Telephone Encounter - Bree Sosa [...] Thank you. Bree Johnson. documented in this encounterOur Lady Of [facility]07-11-2023 History of Present illness Narrative* Sarah Leone PA - 12/07/2022 2:05 PM EDT This note was created using NoteWriter. Subjective Reina Sullivan is a 67 year [...] MEDICAL HISTORY Diagnosis Date Atrial fibrillation ([facility]) Dr. 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 Huston TBI (traumatic brain injury) ([facility]) 2 times PAST SURGICAL HISTORY Procedure Laterality [...] ER evaluation. CYNTHIA White documented in this encounterOur Lady Of [facility]05-[facility] History of Past illness Narrative* Problem Noted [...] of this encounter (statuses as of 09/30/2022) [facility]05-04-2023 History of Past illness Narrative* Problem Noted Date Diagnosed Date Resolved Date Encounter for issue of repeat prescription 09/30/2022 09/30/2022 Fracture of skull 09/30/2022 09/30/2022 Headache 09/30/2022 09/30/2022 High serum creatinine 09/30/20222022 Syncope and collapse 09/30/2022 05/ 023 Undiagnosed cardiac murmurs 09/30/2022 09/30/2022 Encounter for hepatitis C sc reening test for low risk patient 03/09/2022 09/30/2022 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 status epilepticus 06/27/2020 03/25/2021 Hyperglycemia 03/23/2017 03/26/2021 documented as of this encounter (statuses as of 12/08/2022) [facility]-04-[facility] History of Present illness Narrative* Aric Zapien [...] Dr. 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 Huston TBI (traumatic brain injury) ([facility]) 2 times PAST SURGICAL HISTORY Procedure Laterality [...] - ICD9: 416.0, ICD10: I27.0 - per [place] cardiology 4. Primary hypertension - ICD9: 401.9, [...] YATES in two weeks. documented in this encounterOur Lady Of [facility]01-20-2023 Miscellaneous Notes* Telephone Encounter - Karla Ferguson [...] notify patient. Jesi Bryant documented in this encounterOur Lady Of [facility]01-13-2023 History of Present illness Narrative* Leanna Benavidez RN - 06/11/2022 11:32 AM EST AC COLEMAN RN Afsaneh Mercedes, My name is Leanna Benavidez RN. I am calling from [facility]. Your Healthcare team and Medicare provider would like to assist in your success in taking prescribed medications for cardiovascular health and/or diabetes. Is this a good time to talk with you? NO Called patient, home line no answer just rings, home phone [phone] not working Thank you - Leanna Benaivdez RN Patient identified by name and date of . Patient Attributed To: E Payer: [facility] Reason for review or outreach: Medication Adherence Medication Adherence Review Details: Diabetes Summary / Findings: As per above Action Taken: Data submitted to Payer Other Contact made with patient: No, Unable to leave message Leanna Benavidez RN Signature: Leanna Benavidez RN documented in this encounterOur Lady Of [facility]11-29-2022 Miscellaneous Notes* Telephone Encounter - Vickie Badillo Pss - 04/27/2022 1:45 PM EST The patient declined an appointment with general JARRETT. Soonest appointment at [place] is 08/16/22. Please advise. * Telephone Encounter - Berenice Weston Pss - 04/27/2022 11:49 AM EST Patient returned call and stated there is no way he can drive, or his friend is able to drive all the way to [place] for an appt. Requesting call back from nurse to discuss soonest appt herein [place]. Please advise. * Telephone Encounter - Vickie [...] studies. Arci Huston MD documented in this encounterOur Lady Of [facility]11-28-2022 History of Present illness Narrative* Felicita Ruiz [...] DEPARTMENT: MR; Exam(s) Completed: Head: Routine Brain [place] of [place] MRA Neck: Carotids MRA, bilateral PERIPHERAL IV DATA: Not applicable SIGNED BY: RT Rajendra(Andre) April 26, 2022 1:58 PM documented in this encounterOur Lady Of [facility]11-16-2022 Miscellaneous Notes* Telephone Encounter - Jovana Cleveland - 04/14/2022 10:33 AM EST 234 # just rings and rings and then eventually disconnects. 330 # is a busy signal. Letter mailed. Closing phone call. Jovana Megha * Telephone Encounter - Arturo Garza LPN [...] Provider: Jaison MAX PA-C documented in this encounterOur Lady Of [facility]11-14-2022 Miscellaneous Notes* Telephone Encounter - Aric Huston [...] ER. Aric Huston MD documented in this encounterOur Lady Of [facility]11-14-2022 History of Present illness Narrative* Aric Huston [...] 12, 2022 3:18 PM documented in this encounterOur Lady Of [facility]11-14-2022 Instructions* Patient Instructions* Marni Hare, OD - 04/12/2022 3:12 PM EST Use Refresh or Systane gel nightly in both eyes documented in this encounterOur Lady Of [facility]11-04-2022 Miscellaneous Notes* Telephone Encounter - Pam Venegas LPN - 04/02/2022 12:47 PM EDT Attempted to reach patient, no answer or machine to leave message. Pam Venegas LPN * Telephone Encounter - Pam Venegas LPN - 04/02/2022 12:44 PM EDT Images from the original note were not included. Aric Huston Jr., MD P tr Neur Betzaida Nurse Depakote level is elevated. Please contact pt and confirm how much he is taken as this has not beenthe case in the past and no impairment of hepatic function. Will also repeat VPA level in 1 week todetermine if changes necessary. Aric Huston MD Copied and pasted from Results documented in this encounterOur Lady Of [facility]11-03-2022 History of Present illness Narrative* Aric Zapien [...] ordered. 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 Vania PSS * Telephone Encounter - Felicita [...] Thanks, Janusz Max PA-C documented in this encounterOur Lady Of [facility]10-11-2022 History of Present illness Narrative* Lolis Jimenez [...] don't fit properly- does fine without them. [place] anxious, stressed, angry, irritable, lonely, isolated, or [...] in the medical record. Dr. Huston neurology [place] cardiology Medical/Family history review Reviewed and updated [...] Lymph 1.00 - 4.00 k/uL 1.87 1.93 Dupage% % 9.0 7.2 Abs Dupage <0.87 k/uL 0.78 0.54 Eosin% % 0.9 [...] vaccine - ICD9: V04.89, ICD10: Z23 - [employer] COVID-19 BIVALENT BOOSTER VACCINE, AGE 12+ YR [...] OPHTHALMOLOGY Jaison Max PA-C documented in this encounterOur Lady Of [facility]10-11-2022 History of Past illness Narrative* Problem Noted Date Diagnosed Date Resolved Date Encounter for hepatitis C sc reening test for low risk patient 03/09/2022 09/30/2022 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 status epilepticus 06/27/2020 03/25/2021 Hyperglycemia 03/23/2017 03/26/2021 documented as of this encounter (statuses as of 04/03/2023) [facility]-10-[facility] History of Present illness Narrative* Aric Huston [...] prior head trauma. Prior records requested from [facility] Unclear if currentsymptoms described above of AMS [...] have yet to receive requested records from [facility] and I have asked the patient to contact that practice to aid in retrieval of records. Pt states since last visit he had some strokes, 3 of them, for which he was treated in [place] and up in [place] or something like that. States passed out [...] Dr. 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 Huston TBI (traumatic brain injury) 2 [...] which included preparing to see the patient, [id number] patient care, completing clinical documentation, obtaining and/or reviewing separately obtained history, performing a medically appropriate examination, counseling and educating the pat ient/family/caregiver, ordering medications, tests, or procedures, and communicating results to thepatient/family/caregiver. documented [facility] encounter[facility] Miscellaneous Notes* Telephone Encounter - Kayleen Quintero [...] and advise. Mecca Orozco documented in this encounterOur [facility] History of Present illness Narrative* Joceline Waldron RN - 02/23/2022 2:29 PM EDT ACM COLEMAN RN Action/FYI: Chart review completed for Medication Adherence - Statin Use in Patients with Cardiovascular Disease at the request of [employer] ([facility]). No statin order noted. No statin exclusionary [...] with Cardiovascular Disease is based on 2013 [place] college [employer] Card[employer]/[place] [employer] Association (ACC/AHA) guidelines which recommends moderate tohigh-intensity statin therapy for prevention of ASCVD events. Patient Attributed To: NANCY Payer: [facility] [place] Reason for review or outreach: Medication Adherence Medication Adherence Review Details: Cholesterol, Hypertension, and Diabetes Summary / Findings: See Above Action Taken: Encounter routed to provider Contact made with patient: No, Chart review only. Signature: Joceline Waldron RN documented in this encounterOur [facility]-28-[facility] History of Present illness Narrative* Aric Zapien [...] Dr. 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 Huston TBI (traumatic brain injury) ([facility] [place]) 2 times PAST SURGICAL HISTORY Procedure Laterality [...] prn. Medical Decision Making documented in this encounterOur [facility] History of Present illness Narrative* Machelle Funez [...] IV DATA: Not applicable SIGNED BY: RT Ale(Andre) March 12, 2021 2:38 PM documented in this encounterOur [facility] History of Past illness Narrative* Problem Noted Date Resolved Date 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 status epilepticus 06/27/2020 03/25/2021 Hyperglycemia 03/23/2017 03/26/2021 documented as of this encounter (statuses as of 09/11/2021) [address]29-2021 History of Past illness Narrative* Problem Noted Date Resolved Date 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 status epilepticus 06/27/2020 03/25/2021 Hyperglycemia 03/23/2017 03/26/2021 documented as of this encounter (statuses as of 09/24/2021) [address]2021 History of Past illness Narrative* Problem Noted Date Resolved Date 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 status epilepticus 06/27/2020 03/25/2021 Hyperglycemia 03/23/2017 03/26/2021 documented as of this encounter (statuses as of 03/05/2022) [address]29-2021 History of Past illness Narrative* Problem Noted Date Resolved Date 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 status epilepticus 06/27/2020 03/25/2021 Hyperglycemia 03/23/2017 03/26/2021 documented as of this encounter (statuses as of 03/08/2022) [address]2021 History of Past illness Narrative* Problem Noted Date Resolved Date 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 status epilepticus 06/27/2020 03/25/2021 Hyperglycemia 03/23/2017 03/26/2021 documented as of this encounter (statuses as of 03/10/2022) [address]29-2021 History of Past illness Narrative* Problem Noted Date Resolved Date 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 status epilepticus 06/27/2020 03/25/2021 Hyperglycemia 03/23/2017 03/26/2021 documented as of this encounter (statuses as of 03/16/2022) [address]2021 History of Past illness Narrative* Problem Noted Date Resolved Date 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 status epilepticus 06/27/2020 03/25/2021 Hyperglycemia 03/23/2017 03/26/2021 documented as of this encounter (statuses as of 03/26/2022) [address]2021 History of Past illness Narrative* Problem Noted Date Resolved Date 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 status epilepticus 06/27/2020 03/25/2021 Hyperglycemia 03/23/2017 03/26/2021 documented as of this encounter (statuses as of 04/01/2022) [facility] History of Past illness Narrative* Problem Noted Date Resolved Date 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 status epilepticus 06/27/2020 03/25/2021 Hyperglycemia 03/23/2017 03/26/2021 documented as of this encounter (statuses as of 04/02/2022) [address]29-2021 History of Past illness Narrative* Problem Noted Date Resolved Date 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 status epilepticus 06/27/2020 03/25/2021 Hyperglycemia 03/23/2017 03/26/2021 documented as of this encounter (statuses as of 04/13/2022) [facility] [place] History of Past illness Narrative* Problem Noted Date Resolved Date 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 status epilepticus 06/27/2020 03/25/2021 Hyperglycemia 03/23/2017 03/26/2021 documented as of this encounter (statuses as of 04/13/2022) [address]29-2021 History of Past illness Narrative* Problem Noted Date Resolved Date 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 status epilepticus 06/27/2020 03/25/2021 Hyperglycemia 03/23/2017 03/26/2021 documented as of this encounter (statuses as of 04/14/2022) [address]29-2021 History of Past illness Narrative* Problem Noted Date Resolved Date 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 status epilepticus 06/27/2020 03/25/2021 Hyperglycemia 03/23/2017 03/26/2021 documented as of this encounter (statuses as of 04/27/2022) [address]29-2021 History of Past illness Narrative* Problem Noted Date Resolved Date 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 status epilepticus 06/27/2020 03/25/2021 Hyperglycemia 03/23/2017 03/26/2021 documented as of this encounter (statuses as of 06/11/2022) [address]29-2021 History of Past illness Narrative* Problem Noted Date Resolved Date 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 status epilepticus 06/27/2020 03/25/2021 Hyperglycemia 03/23/2017 03/26/2021 documented as of this encounter (statuses as of 06/18/2022) [facility]* Diagnosis Type 2 diabetes mellitus without complication, without long-term current use of insulin (HCC) documented in this encounter [facility]* Diagnosis 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 (HCC)- [...] specified viral diseases documented in this encounter [facility]* Diagnosis Seizures (HCC) Other convulsions [facility] noteNo assessment information availableWAkron Children's [facility] Work Phone: Evaluation note* Diagnosis 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 status epilepticus, unspecified epilepsy type (HCC)- Primary Seizures (HCC) Other convulsions [facility]* Diagnosis Medicare annual wellness visit, initial- [...] lateral visual alexandra documented in this encounter [facility]* Diagnosis 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 (HCC)- [...] unspecified cardiovascular conditions documented in this encounter [facility]* Diagnosis Nonintractable epilepsy without status epilepticus, unspecified epilepsy type (HCC)- Primary [facility] Diagnosis Left homonymous inferior quadrantanopia- Primary Myopia, bilateral Myopia Presbyopia Regular astigmatism of left eye Regular astigmatism Combined forms of age-related cataract of both eyes Other and combined forms of senile cataract Punctate keratitis, bilateral documented in this encounter [facility]* Diagnosis Other symptoms and signs involving the nervous system- Primary documented in this encounter [facility]* Diagnosis Elevated serum creatinine- Primary Other nonspecific findings on examination of blood documented in this encounter [facility]* Diagnosis Seizures (HCC) Other convulsions documented in this encounter [facility]* Diagnosis Seizures (HCC)- Primary Other convulsions [...] Dermatophytosis of nail documented in this encounter [facility]* Diagnosis Sore throat- Primary Acute pharyngitis URI, acute Acute upper respiratory infections of unspecified site documented in this encounter [facility]* Diagnosis 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 status epilepticus, unspecified epilepsy type (HCC) Other symptoms and signs involving the nervous system documented in this encounter [facility]* Diagnosis Onset Date Resolution Status Atrial fibrillation with rapid ventricular response acute Essential hypertension chron ic Valvular heart disease chron ic [facility] Work Phone: Evaluation note* Diagnosis Pulmonary hypertension (HCC) Other chronic pulmonary heart diseases Edema, unspecified type documented in this encounter [facility]* Diagnosis Type 2 diabetes mellitus without complication, without long-term current use of insulin (HCC) documented in this encounter [facility]* Diagnosis 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, late effect of cerebrovascular disease Seizures (HCC) Other convulsions Mitral valve insufficiency, unspecified etiology Non-rheumatic tricuspid valve insufficiency Tricuspid valve disorders, specified as nonrheumatic Left atrial enlargement Cardiomegaly 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 (HCC) 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 Long-term (current) [...] disease of nail documented in this encounter [facility]* Diagnosis Acute right ankle pain Foot pain, right Pain in limb documented in this encounter [facility] note* Diagnosis Seizures (HCC) Other convulsions documented in this encounter [facility] note* Diagnosis Type 2 diabetes mellitus without complication, without long-term current use of insulin (HCC)- Primary Fall, initial encounter Screening for lipid disorders Acute low back pain without sciatica, unspecified back pain laterality Fall, initial encounter documented in this encounter [facility] note* Diagnosis Compression fracture of L1 vertebra, initial encounter (HCC)- Primary documented in this encounter [facility] note* Diagnosis Type 2 diabetes mellitus without complication, without long-term current use of insulin (HCC)- Primary documented in this encounter [facility] for referral (narrative)* Outpatient Procedure (Routine) - Pending Review Specialty Diagnoses / Procedures Referred By Contalphonse t Referred To [facility] Diagnoses 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 status epilepticus, unspecified epilepsy type ([facility] [place]) Procedures EPIL EEG ROUTINE ELECTROENCEPHALOGRAM REC COMA/SLEEP ONLY Aric Huston Jr., MD [address] [facility] [address] [place] [address] Neurological [place] [address] [place] [address] Referral ID Status Reason Start Date Expiration Date Visits Requested Visits Authorized [id number] Pending Review Auto-Generat ed Referral 2 03/08/2023 1 1 * MRI/CT (Routine) - Authorized Specialty Diagnoses / Procedures Referred By Contac t Referred To Contact MR IMAGING Diagnoses 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 status epilepticus, unspecified epilepsy type (HCC) Procedures MRI BRAIN WO IVCON MRI BRAIN BRAIN STEM W/O CONTRAST MATERIAL Aric Huston Jr., MD [address] [address] Mr Imaging Referral ID Status Reason Start Date Expiration Date Visits Requested Visits Authorized [id number] Authorized Auto-Generat ed Referral 2 04/07/2023 1 1 [facility] for referral (narrative)* Outpatient Procedure (Routine) - Pending Review Specialty Diagnoses / Procedures Referred By Contac t Referred To Contact [facility] Diagnoses 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 (HCC) Non-rheumatic tricuspid valve insufficiency Mitral valve insufficiency, unspecified etiology Primary pulmonary HTN (HCC) Enlarged thoracic aorta (HCC) Procedures ECHO ECHO TTHRC R-T 2D W/WOM-MODE COMPL SPEC&COLR D Jaison Max PA-C [address] [place] [address] [facility] [place] [address] [place] [address] Referral ID Status Reason Start Date Expiration Date Visits Requested Visits Authorized [id number] Pending Review Auto-Generat ed Referral 2 03/10/2023 1 1 * Consult, Test, Treat (Routine) - Pending Review Specialty Diagnoses / Procedures Referred By Contac t Referred To Contact Dermatology Diagnoses Multiple atypical skin moles Procedures CONSULT TO DERMATOLOGY OFFICE/OUTPATIENT NEW HIGH MDM 60-74 MINUTES Jaison Max PA-C [address] [place] [address] Referral ID Status Reason Start Date Expiration Date Visits Requested Visits Authorized [id number] Pending Review PCP Requested Referral 2 03/09/2023 1 1 * Consult, Test, Treat (Routine) - Authorized Specialty Diagnoses / Procedures Referred By Contac t Referred To Contact Ophthalmology Diagnoses Presbyopia of both eyes Loss of lateral visual alexandra Procedures CONSULT TO OPHTHALMOLOGY OFFICE/OUTPATIENT [facility] [place] 60-74 MINUTES Jaison Max PA-C [address] [place] [address] Referral ID Status Reason Start Date Expiration Date Visits Requested Visits Authorized [id number] Authorized PCP Requested Referral 2 03/09/2023 1 1 [facility] for referral (narrative)* Diagnostic Procedure Only (Routine) - Authorized Specialty Diagnoses / Procedures Referred By Contac t Referred To Contact US IMAGING Diagnoses Screening for AAA (abdominal aortic aneurysm) Procedures US SCREENING FOR AAA (2017) US ABDOMINAL AORTA REAL TIME SCREEN STUDY AAA Aric Zapien MD [address] [place] [address] Us Imaging Referral ID Status Reason Start Date Expiration Date Visits Requested Visits Authorized [id number] Authorized Auto-Generat ed Referral 04/01/2022 05/01/2023 1 1 * Consult, Test, Treat (Routine) - Pending Review Specialty Diagnoses / Procedures Referred By Contac t Referred To Contact Cardiology Diagnoses 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 (HCC) Enlarged thoracic aorta (HCC) Procedures CONSULT TO CARDIOLOGY OFFICE/OUTPATIENT [facility] [place] 60-74 MINUTES Aric Zapien MD [address] [place] [address] Referral ID Status Reason Start Date Expiration Date Visits Requested Visits Authorized [id number] Pending Review PCP Requested Referral 04/01/2022 04/01/2023 1 1 [facility] for referral (narrative)* Outpatient Procedure (Routine) - Authorized Specialty Diagnoses / Procedures Referred By Jacqueline t Referred To Contact [facility] Diagnoses Peripheral vascular disease (HCC) Procedures P[facility] NON-INVASIVE PHYSIOLOGIC STUDY EXTREMITY 3 Aric Lopez MD [address] [place] [address] Heart And Vascular [place] [address] [place] [address] Referral ID Status Reason Start Date Expiration Date Visits Requested Visits Authorized [id number] Authorized Auto-Generat ed Referral 09/30/2022 09/30/2023 1 1 * Consult, Test, Treat (Routine) - Authorized Specialty Diagnoses / Procedures Referred By Jacqueline cummings Referred To Contact Podiatry Diagnoses Type 2 diabetes mellitus without complication, without long-term current use of insulin (HCC) Pain due to onychomycosis of nail Procedures CONSULT TO PODIATRY OFFICE/OUTPATIENT NEW HIGH MDM 60-74 MINUTES Aric Zapien MD [address] [place] [address] Referral ID Status Reason Start Date Expiration Date Visits Requested Visits Authorized [id number] Authorized PCP Requested Referral 09/30/2022 09/30/2023 1 1 * Diagnostic Procedure Only (Routine) - Authorized Specialty Diagnoses / Procedures Referred By Jacqueline t Referred To Contact US IMAGING Diagnoses Screening for AAA (abdominal aortic aneurysm) Procedures US SCREENING FOR AAA (2017) US ABDOMINAL AORTA REAL TIME SCREEN STUDY AAA Aric Zapien MD [address] [place] [address] Us Imaging Referral ID Status Reason Start Date Expiration Date Visits Requested Visits Authorized [id number] Authorized Auto-Generat ed Referral 09/30/2022 10/30/2023 1 1 [facility] for referral (narrative)* Diagnostic Procedure Only (Urgent) - Closed Specialty Diagnoses / Procedures Referred By Contac t Referred To Contact XR IMAGING Diagnoses Foot pain, right Procedures XR FOOT GENERAL 3V AP/LAT/OBL RT X-RAY FOOT MINIMUM 3 VIEWS Quang Bowman MD [address] [place] [address] [place] [address] Referral ID Status Reason Start Date Expiration Date V isits Requested Visits Authorized [id number] Closed Auto-Generate d Referral 03/12/2021 04/11/2022 1 1 * Diagnostic Procedure Only (Urgent) - Closed Specialty Diagnoses / Procedures Referred By Contac t Referred To Contact XR IMAGING Diagnoses Acute right ankle pain Procedures XR ANKLE GENERAL 3V AP/LAT/OBL RT X-RAY ANKLE MINIMUM 3 VIEWS Quang Bowman MD [address] [place] [address] [place] [address] Referral ID Status Reason Start Date Expiration Date V isits Requested Visits Authorized [id number] Closed Auto-Generate d Referral 03/12/2021 05/29/2021 1 1 [facility] for referral (narrative)* Diagnostic Procedure Only (Urgent) - Closed Specialty Diagnoses / Procedures Referred By Contac t Referred To Contact XR IMAGING Diagnoses Chronic low back pain without sciatica, unspecified back pain laterality Fall, initial encounter Procedures XR LUMBAR GENERAL 3V AP/LAT/L5-S1 RADEX SPINE LUMBOSACRAL 2/3 VIEWS Florinda Stevenson APRN.[facility] [address] [place] [address] [place] [address] Referral ID Status Reason Start Date Expiration Date V isits Requested Visits Authorized [id number] Closed Auto-Generate d Referral 06/22/2024 07/22/2025 1 1 [facility] ([facility])No reason for referral information availableWAkron Children's Hospital Work Phone: Reason for visit Narrative* Diagnostic Procedure Only (Urgent) - Closed Specialty Diagnoses / Procedures Referred By Peymanac t Referred To Contact XR IMAGING Diagnoses Acute right ankle pain Procedures XR ANKLE GENERAL 3V AP/LAT/OBL RT X-RAY ANKLE MINIMUM 3 VIEWS Quang Bowman MD [address] [place], [place] [id number] Xr Imaging [place] [address] Referral ID Status Reason Start Date Expiration Date V isits Requested Visits Authorized [id number] Closed Auto-Generate d Referral 03/12/2021 05/29/2021 1 1 [facility] Reason for Referral Specialty Diagnoses / Procedures Referred By Jacqueline t Referred To Contact Ophthalmology Diagnoses Type 2 diabetes mellitus without complication, without long-term current use of insulin (HCC) Procedures CONSULT TO OPHTHALMOLOGY OFFICE/OUTPATIENT [facility] [place] 60-74 MINUTES Aric Zapien MD [address] [place] [address] Referral ID Status Reason Start Date Expiration Date Visits Requested Visits Authorized [id number] Authorized PCP Requested Referral 09/24/2021 09/24/2022 1 1 Specialty Diagnoses / Procedures Referred By Contac t Referred To Contact Neurology Diagnoses Seizures (HCC) Procedures CONSULT TO NEUROLOGY OFFICE/OUTPATIENT [facility] [place] 60-74 MINUTES Aric Zapien MD [address] [place], [place] [id number] Referral ID Status Reason Start Date Expiration Date Visits Requested Visits Authorized [id number] Pending Review PCP Requested Referral 09/24/2021 09/24/2022 1 1 Specialty Diagnoses / Procedures Referred By Contac t Referred To Contact Cardiology Diagnoses 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 (HCC) Primary pulmonary HTN (HCC) Enlarged thoracic aorta (HCC) Mitral valve insufficiency, unspecified etiology Non-rheumatic tricuspid valve insufficiency Procedures CONSULT TO CARDIOLOGY Aric Zapien MD [address] [place], [place] [id number] Referral ID Status Reason Start Date Expiration Date Visits Requested Visits Authorized [id number] Ref Not Required PCP Requested Referral 09/24/2021 09/24/2022 1 1 Specialty Diagnoses / Procedures Referred By Contac t Referred To Contact MR IMAGING Diagnoses Other symptoms and signs involving the nervous system Procedures MRA CAROTID WO IVCON MRA, NECK; W/O CONTRAST Aric Huston Jr., MD [address] [facility] [address] [place] [address] Mr Imaging Referral ID Status Reason Start Date Expiration Date Visits Requested Visits Authorized [id number] Pending Review Auto-Generat ed Referral 2 05/12/2023 1 1 Specialty Diagnoses / Procedures Referred By Contac t Referred To Contact MR IMAGING Diagnoses Other symptoms and signs involving the nervous system Procedures MRA BRAIN WO IVCON MRA, HEAD W/O CONTRAST Aric Huston Jr., MD [address] [facility] [address] [place] [address] Mr Imaging Referral ID Status Reason Start Date Expiration Date Visits Requested Visits Authorized [id number] Pending Review Auto-Generat ed Referral 2 05/12/2023 1 1 Specialty Diagnoses / Procedures Referred By Contac t Referred To Contact MR IMAGING Diagnoses Other symptoms and signs involving the nervous system Procedures MRA CAROTID WO IVCON MRA, NECK; W/O CONTRAST Aric Huston Jr., MD [address] [facility] [address] [place] [address] [place] [address] Referral ID Status Reason Start Date Expiration Date V isits Requested Visits Authorized [id number] Closed Auto-Generate d Referral 04/12/2022 05/12/2023 1 1 Specialty Diagnoses / Procedures Referred By Contac t Referred To Contact MR IMAGING Diagnoses Other symptoms and signs involving the nervous system Procedures MRA BRAIN WO IVCON MRA, HEAD W/O CONTRAST Aric Huston Jr., MD [address] [facility] [address] [place] [address] [place] [address] Referral ID Status Reason Start Date Expiration Date V isits Requested Visits Authorized [id number] Closed Auto-Generate d Referral 04/12/2022 05/12/2023 1 1 Specialty Diagnoses / Procedures Referred By Contac t Referred To Contact MR IMAGING Diagnoses 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 status epilepticus, unspecified epilepsy type (HCC) Procedures MRI BRAIN WO IVCON MRI BRAIN BRAIN STEM W/O CONTRAST MATERIAL Aric Huston Jr., MD [address] [facility] [address] [place] [address] [place] [address] Referral ID Status Reason Start Date Expiration Date V isits Requested Visits Authorized [id number] Closed Auto-Generate d Referral 03/08/2022 04/07/2023 1 1 Specialty Diagnoses / Procedures Referred By Contac t Referred To Contact Podiatry Diagnoses Incurvated nail Procedures CONSULT TO PODIATRY OFFICE/OUTPATIENT NEW HIGH MDM 60 MINUTES Jaison Max PA-C [address] [place] [address] Referral ID Status Reason Start Date Expiration Date Visits Requested Visits Authorized [id number] Authorized PCP Requested Referral 11/22/2023 11/21/2024 1 1 Specialty Diagnoses / Procedures Referred By Contac t Referred To Contact US IMAGING Diagnoses Screening for abdominal aortic aneurysm Procedures US SCREENING FOR AAA (2017) US ABDOMINAL AORTA REAL TIME SCREEN STUDY AAA Jaison Max PA-C [address] [place] [address] [place] [address] Referral ID Status Reason Start Date Expiration Date Visits Requested Visits Authorized [id number] Pending Review Auto-Generat ed Referral 11/22/2023 12/21/2024 1 1 Specialty Diagnoses / Procedures Referred By Contac t Referred To Contact Diagnoses Compression fracture of L1 vertebra, initial encounter (HCC) Procedures [facility] Florinda Stevenson APRN.[facility] [address] [place] [address] Referral ID Status Reason Start Date Expiration Date Visits Requested Visits Authorized [id number] New Request PCP Requested Referral 06/22/2024 09/20/2024 [...] 4:00am LAB WORK July 23, 2024 5:00am [facility] LAB WORK August 27, 2024 4 :00am [...] 4:00am LAB WORK July 23, 2024 5:00am [facility] LAB WORK August 27, 2024 4 :00am [id number] September 26, 2024 5:1 6am Family History [...] Will No March 06 11:14am Power of Clinic Nurse No March 06 11:14am Advance Directive Response Recorded Date/ Time Advance Directives No June 2:48pm Living Will No March 06 10:14am Power of Clinic Nurse No March 06 10:14am Advance Directive Response Recorded Date/ Time Living Will No July 09 025 12:44pm Do you have a Healthcare Power of Clinic Nurse? No July 09, 2024 12:44pm Advance Directives [...] or prosecute any alcohol or drug abuse patient.[facility] AndersonIn the event this information is protected by the Federal Confidentiality of Alcohol and Drug Abuse Patient Records regulations: The Federal rules restrict any use of the information to criminally investigate or prosecute any alcohol or drug abuse patient.[facility] AndersonIn the event this information is protected by the Federal Confidentiality of Alcohol and Drug Abuse Patient Records regulations: The Federal rules restrict any use of the information to criminally investigate or prosecute any alcohol or drug abuse patient.[facility] AndersonIn the event this information is protected by the Federal Confidentiality of Alcohol and Drug Abuse Patient Records regulations: The Federal rules restrict any use of the information to criminally investigate or prosecute any alcohol or drug abuse patient.[facility] AndersonIn the event this information is protected by the Federal Confidentiality of Alcohol and Drug Abuse Patient Records regulations: The Federal rules restrict any use of the information to criminally investigate or prosecute any alcohol or drug abuse patient.[facility] AndersonIn the event this information is protected by the Federal Confidentiality of Alcohol and Drug Abuse Patient Records regulations: The Federal rules restrict any use of the information to criminally investigate or prosecute any alcohol or drug abuse patient.[facility] AndersonIn the event this information is protected by the Federal Confidentiality of Alcohol and Drug Abuse Patient Records regulations: The Federal rules restrict any use of the information to criminally investigate or prosecute any alcohol or drug abuse patient.[facility] AndersonIn the event this information is protected by the Federal Confidentiality of Alcohol and Drug Abuse Patient Records regulations: The Federal rules restrict any use of the information to criminally investigate or prosecute any alcohol or drug abuse patient.[facility] AndersonIn the event this information is protected by the Federal Confidentiality of Alcohol and Drug Abuse Patient Records regulations: The Federal rules restrict any use of the information to criminally investigate or prosecute any alcohol or drug abuse patient.[facility] AndersonIn the event this information is protected by the Federal Confidentiality of Alcohol and Drug Abuse Patient Records regulations: The Federal rules restrict any use of the information to criminally investigate or prosecute any alcohol or drug abuse patient.[facility] AndersonIn the event this information is protected by the Federal Confidentiality of Alcohol and Drug Abuse Patient Records regulations: The Federal rules restrict any use of the information to criminally investigate or prosecute any alcohol or drug abuse patient.[facility] AndersonIn the event this information is protected by the Federal Confidentiality of Alcohol and Drug Abuse Patient Records regulations: The Federal rules restrict any use of the information to criminally investigate or prosecute any alcohol or drug abuse patient.[facility] AndersonIn the event this information is protected by the Federal Confidentiality of Alcohol and Drug Abuse Patient Records regulations: The Federal rules restrict any use of the information to criminally investigate or prosecute any alcohol or drug abuse patient.[facility] AndersonIn the event this information is protected by the Federal Confidentiality of Alcohol and Drug Abuse Patient Records regulations: The Federal rules restrict any use of the information to criminally investigate or prosecute any alcohol or drug abuse patient.[facility] AndersonIn the event this information is protected by the Federal Confidentiality of Alcohol and Drug Abuse Patient Records regulations: The Federal rules restrict any use of the information to criminally investigate or prosecute any alcohol or drug abuse patient.[facility] AndersonIn the event this information is protected by the Federal Confidentiality of Alcohol and Drug Abuse Patient Records regulations: The Federal rules restrict any use of the information to criminally investigate or prosecute any alcohol or drug abuse patient.[facility] AndersonIn the event this information is protected by the Federal Confidentiality of Alcohol and Drug Abuse Patient Records regulations: The Federal rules restrict any use of the information to criminally investigate or prosecute any alcohol or drug abuse patient.[facility] AndersonIn the event this information is protected by the Federal Confidentiality of Alcohol and Drug Abuse Patient Records regulations: The Federal rules restrict any use of the information to criminally investigate or prosecute any alcohol or drug abuse patient.[facility] AndersonIn the event this information is protected by the Federal Confidentiality of Alcohol and Drug Abuse Patient Records regulations: The Federal rules restrict any use of the information to criminally investigate or prosecute any alcohol or drug abuse patient.[facility] AndersonIn the event this information is protected by the Federal Confidentiality of Alcohol and Drug Abuse Patient Records regulations: The Federal rules restrict any use of the information to criminally investigate or prosecute any alcohol or drug abuse patient.[facility] AndersonIn the event this information is protected by the Federal Confidentiality of Alcohol and Drug Abuse Patient Records regulations: The Federal rules restrict any use of the information to criminally investigate or prosecute any alcohol or drug abuse patient.[facility] AndersonIn the event this information is protected by the Federal Confidentiality of Alcohol and Drug Abuse Patient Records regulations: The Federal rules restrict any use of the information to criminally investigate or prosecute any alcohol or drug abuse patient.[facility] AndersonIn the event this information is protected by the Federal Confidentiality of Alcohol and Drug Abuse Patient Records regulations: The Federal rules restrict any use of the information to criminally investigate or prosecute any alcohol or drug abuse patient.[facility] AndersonIn the event this information is protected by the Federal Confidentiality of Alcohol and Drug Abuse Patient Records regulations: The Federal rules restrict any use of the information to criminally investigate or prosecute any alcohol or drug abuse patient.[facility] AndersonIn the event this information is protected by the Federal Confidentiality of Alcohol and Drug Abuse Patient Records regulations: The Federal rules restrict any use of the information to criminally investigate or prosecute any alcohol or drug abuse patient.[facility] AndersonIn the event this information is protected by the Federal Confidentiality of Alcohol and Drug Abuse Patient Records regulations: The Federal rules restrict any use of the information to criminally investigate or prosecute any alcohol or drug abuse patient.[facility] AndersonIn the event this information is protected by the Federal Confidentiality of Alcohol and Drug Abuse Patient Records regulations: The Federal rules restrict any use of the information to criminally investigate or prosecute any alcohol or drug abuse patient.[facility] AndersonIn the event this information is protected by the Federal Confidentiality of Alcohol and Drug Abuse Patient Records regulations: The Federal rules restrict any use of the information to criminally investigate or prosecute any alcohol or drug abuse patient.[facility] AndersonIn the event this information is protected by the Federal Confidentiality of Alcohol and Drug Abuse Patient Records regulations: The Federal rules restrict any use of the information to criminally investigate or prosecute any alcohol or drug abuse patient.[facility] AndersonIn the event this information is protected by the Federal Confidentiality of Alcohol and Drug Abuse Patient Records regulations: The Federal rules restrict any use of the information to criminally investigate or prosecute any alcohol or drug abuse patient.[facility] AndersonIn the event this information is protected by the Federal Confidentiality of Alcohol and Drug Abuse Patient Records regulations: The Federal rules restrict any use of the information to criminally investigate or prosecute any alcohol or drug abuse patient.[facility] AndersonIn the event this information is protected by the Federal Confidentiality of Alcohol and Drug Abuse Patient Records regulations: The Federal rules restrict any use of the information to criminally investigate or prosecute any alcohol or drug abuse patient.[facility] AndersonIn the event this information is protected by the Federal Confidentiality of Alcohol and Drug Abuse Patient Records regulations: The Federal rules restrict any use of the information to criminally investigate or prosecute any alcohol or drug abuse patient.[facility] AndersonIn the event this information is protected by the Federal Confidentiality of Alcohol and Drug Abuse Patient Records regulations: The Federal rules restrict any use of the information to criminally investigate or prosecute any alcohol or drug abuse patient.[facility] AndersonIn the event this information is protected by the Federal Confidentiality of Alcohol and Drug Abuse Patient Records regulations: The Federal rules restrict any use of the information to criminally investigate or prosecute any alcohol or drug abuse patient.[facility] AndersonIn the event this information is protected by the Federal Confidentiality of Alcohol and Drug Abuse Patient Records regulations: The Federal rules restrict any use of the information to criminally investigate or prosecute any alcohol or drug abuse patient.[facility] Care Teams (unrecognized sec tion and content) Component Overhaul Operator Relationship Specialty Start Date End Date Aric Zapien MD [address] [facility] [place] [address] PCP - General Family Practice 07/23/15 Component Overhaul Operator Relationship Specialty Start Date End Date Aric Zapien MD [address] [place] [address] PCP - General Family Practice 07/23/15 Component Overhaul Operator Relationship Specialty Start Date End Date Aric Zapien MD [address] [place] [id number] PCP - General Family Medicine 07/23/15 Component Overhaul Operator Relationship Specialty Start Date End Date Aric Zapien MD [facility] [address] PCP - General Family Medicine 07/23/15 Component Overhaul Operator Relationship Specialty Start Date End Date Aric Zapien MD [address] [place] [address], [place] [address] PCP - General Family Medicine 07/23/15 Component Overhaul Operator Relationship Specialty Start Date End Date Aric Zapien MD [address] [place] [address] [place] [address] PCP - General Family Medicine 07/23/15 Component Overhaul Operator Relationship Specialty Start Date End Date Aric Zapien MD [address] [place] [address] [place] [address] PCP - General Family Medicine 07/23/15 Component Overhaul Operator Relationship Specialty Start Date End Date Aric Zapien MD [address] [place] [address] [place] [address] PCP - General Family Medicine 07/23/15 Component Overhaul Operator Relationship Specialty Start Date End Date Aric Zapien MD [address] [place] [address] PCP - General Family Medicine 07/23/15 Component Overhaul Operator Relationship Specialty Start Date End Date Aric Zapien MD [address] [place] [address] PCP - General Family Medicine 07/23/15 Component Overhaul Operator Relationship Specialty Start Date End Date Aric Zapien MD [address] [place] [address] PCP - General Family Medicine 07/23/15 Component Overhaul Operator Relationship Specialty Start Date End Date Aric Zapien MD [address] [place] [address] PCP - General Family Medicine 07/23/15 Component Overhaul Operator Relationship Specialty Start Date End Date Aric Zapien MD [address] [place] [address] PCP - General Family Medicine 07/23/15 Component Overhaul Operator Relationship Specialty Start Date End Date Aric Zapien MD [address] [place] [address] PCP - General Family Medicine 07/23/15 Component Overhaul Operator Relationship Specialty Start Date End Date Aric Zapien MD [address] [place] [address] PCP - General Family Medicine 07/23/15 Component Overhaul Operator Relationship Specialty Start Date End Date Aric Zapien MD [address] [place] [address] PCP - General Family Medicine 07/23/15 Component Overhaul Operator Relationship Specialty Start Date End Date Aric Zapien MD [address] [place] [address] PCP - General Family Medicine 07/23/15 Component Overhaul Operator Relationship Specialty Start Date End Date Aric Zapien MD [address] [place], [place] [address] PCP - General Family Medicine 07/23/15 Team Status: Active Member Role Status Dates Dr. Aric Zapien MD Family Provider Active Dr. Aric Zapien MD Primary Care Provider Active Team Status: Inactive Member Role Status Dates Dr. Aric Zapien MD Primary Care Provider, Referring Provider Active Rakel Hodgson CULTURIST, CULTURIST-C Attending Provider Active Team Status: Inactive Member Role Status Dates Dr. Aric Zapien MD Primary Care Provider Active Rakel Hodgson CULTURIST, CULTURIST-C Attending Provider, Referring P roberto Active Component Overhaul Operator Relationship Specialty Start Date End Date Aric Zapien MD [address] [place], [place] [id number] PCP - General Family Medicine 07/23/15 Component Overhaul Operator Relationship Specialty Start Date End Date Aric Zapien MD [address] [place], [place] [address] PCP - General Family Medicine 07/23/15 Component Overhaul Operator Relationship Specialty Start Date End Date Aric Zapien MD [address] [place], [place] [address] PCP - General Family Medicine 07/23/15 Component Overhaul Operator Relationship Specialty Start Date End Date Aric Zapien MD [address] [place], [place] [address] PCP - General Family Medicine 07/23/15 Component Overhaul Operator Relationship Specialty Start Date End Date Aric Zapien MD [address] [place] [address] PCP - General Family Medicine 07/23/15 Component Overhaul Operator Relationship Specialty Start Date End Date Aric Zapien MD [address] [place] [address] PCP - General Family Medicine 07/23/15 Component Overhaul Operator Relationship Specialty Start Date End Date Aric Zapien MD [address] [place] [address] PCP - General Family Medicine 07/23/15 Component Overhaul Operator Relationship Specialty Start Date End Date Aric Zapien MD [address] [place] [address] PCP - General Family Medicine 07/23/15 Meenakshi Galaviz, CIRCUS ARTIST.[facility] [address] [facility] [place] [address] Reporting Specialist Family Medicine 05/07/24 Component Overhaul Operator Relationship Specialty Start Date End Date Aric Zapien MD [address] [place] [address] PCP - General Family Medicine 07/23/15 Meenakshi Galaviz, CIRCUS ARTIST.[facility] [address] [facility] [place] [address] Reporting Specialist Family Medicine 05/07/24 Florinda Stevenson CIRCUS ARTIST.[facility] [address] [place] [address] Reporting Specialist Family Medicine 05/07/24 Component Overhaul Operator Relationship Specialty Start Date End Date Aric Zapien MD [address] [place] [address] PCP - General Family Medicine 07/23/15 Meenakshi Galaviz CIRCUS ARTIST.[facility] HEALTH [facility] [address] [place] [address] Reporting Specialist Family Medicine 05/07/24 Florinda Stevenson APRN.[facility] [address] [facility] [place] [address] Reporting Specialist Family Medicine 05/07/24 Component Overhaul Operator Relationship Specialty Start Date End Date Aric Zapien MD [address] [facility] [place] [address] PCP - General Family Medicine 07/23/15 Meenakshi Galaviz APRN.[facility] [address] [place] [address] Reporting Specialist Family Medicine 05/07/24 Florinda Stevenson APRN.[facility] [address] [place] [address] [facility] Component Overhaul Operator Relationship Specialty Start Date End Date Aric Zapien MD [address] [facility] [place] [address] PCP - General Family Medicine 07/23/15 Meenakshi Galaviz APRN.[facility] [address] [facility] [address] Reporting Specialist Family Medicine 05/07/24 Florinda Stevenson APRN.[facility] [address] [facility] [place] [address] Reporting Specialist Family Medicine 05/07/24 Component Overhaul Operator Relationship Specialty Start Date End Date Aric Zapien MD [address] [place] [address] PCP - General Family Medicine 07/23/15 Meenakshi Galaviz APRN.[facility] [address] [facility] [place] [address] [facility] 05/07/24 Florinda Stevenson APRN.[facility] [address] [place] [address] [facility] 05/07/24 Component Overhaul Operator Relationship Specialty Start Date End Date Aric Zapien MD [address] [place] [address] PCP - General Family Medicine 07/23/15 Meenakshi Galaviz APRN.[facility] [address] [place] [address] [facility] 05/07/24 Florinda Stevenson APRN.[facility] [address] [place] [address] [facility] 05/07/24 Team Status: Active Member Role Status [...] September 26, 2024 End: September 26, 2024 Component Overhaul Operator Relationship Specialty Start Date End Date Aric Zapien MD [address] [place], [place] [id number] PCP - General Family Medicine 07/23/15 Meenakshi Galaviz, CIRCUS ARTIST.[facility] [address] [place], [place] [id number] Reporting Specialist Family Medicine 05/07/24 Florinda Stevenson, CIRCUS ARTIST.[facility] [address] [place], [place] [id number] Reporting Specialist Family Medicine 05/07/24 Reason for Visit (unrecogniz ed section and content) Reason Comments Diabetes Specialty Diagnoses / Procedures Referred By Contac t Referred To Contact Family Practice / FAMILY MEDICINE Diagnoses 6 month follow up Procedures 4C EST Aric Zapien MD [address] [place] [address] Aric Zapien MD [address] [place] [address] Referral ID Status Reason Start Date Expiration Date V isits Requested Visits Authorized [id number] Closed Financial Clearance Required - OON Payor Patient Cleared INN/SMCP Payor Auth Obtained 09/24/2021 05/29/2022 1 1 Reason Onset Date Comments Refill Request 03/04/2022 Reason Comments Follow Up Specialty Diagnoses / Procedures Referred By Contac t Referred To Contact Neurology / FAMILY MEDICINE Diagnoses Seizures (HCC) Procedures CONSULT TO NEUROLOGY OFFICE/OUTPATIENT [facility] 60-74 MINUTES Aric Zapien MD [address] [place] [address] [facility] [address] [place] [address] Referral ID Status Reason Start Date Expiration Date V isits Requested Visits Authorized [id number] Closed PCP Requested Referral 12/25/2021 05/29/2022 1 1 Reason Comments Medicare Wellness Exam Reason Comments Orders Reason Onset Date Comments ACM COLEMAN RN 02/23/2022 SPC/SUPD rev. per request [facility] Reason Comments Diabetes Reason Comments Difficulty Reading Both Eyes Blurred Vision Both Eyes With and withou t glasses Specialty Diagnoses / Procedures Referred By Contac t Referred To Contact Ophthalmology Diagnoses Presbyopia of both eyes Loss of lateral visual alexandra Procedures CONSULT TO OPHTHALMOLOGY OFFICE/OUTPATIENT [facility] 60-74 MINUTES Jaison Max PA-C [address] [place] [address] Referral ID Status Reason Start Date Expiration Date V isits Requested Visits Authorized [id number] Closed PCP Requested Referral 03/09/2022 03/09/2023 1 [...] W/O CONTRAST MATERIAL Aric Huston Jr., MD [address] [facility] [address] [place] [address] [place] [address] Referral ID Status Reason Start Date Expiration Date V isits Requested Visits Authorized [id number] Closed Auto-Generate d Referral 03/08/2022 04/07/2023 1 1 Reason Onset Date Comments Refill Request 11/08/2023 Reason Comments Follow Up 6 month Reason Onset Date Comments Population Health Navigation Outreach 12/15/2023 [id number] Reason Onset Date Comments Population Health Navigation Outreach 03/07/2024 [facility] [place] [facility] Reason Onset Date Comments Population Health [...] content) DATE CREATED AUTHOR 06/27/2024 [facility] DATE CREATED AUTHOR AUTHOR'S ORGANIZ ATION 10/27/2024 [facility] DATE CREATED AUTHOR AUTHOR'S ORGANIZ ATION 01/25/2025 [facility] FOR RECORDS PERTAINING TO PATIENTS WHO ARE [...] BE BASED ON THE PRIMARY CLINICAL RECORDS. [employer] provides no warranty or guarantee of the accuracy or completeness of information in this document.
[2025-01-31 08:16] LABS: Valproic Acid (Depakene) Level 73 ug/mL (50-100)
== END ==
LOC: OLS.SWAL 05:00
PROVIDERS: PCP Family Medicine; Visit Provider Internal Medicine
DX: Z51.81 Encounter for therapeutic drug level monitoring (principal); Z79.899 Other long term (current) drug therapy
CPT/HCPCS: 36415; 80164

== ENCOUNTER 2025-03-08 11:09 | Emergency (ER) | payer MEDICARE, MEDICAID, SELFPAY ==
[2025-03-08 11:11] VITALS: BP 141/96; PULSE 108; RESP 18; TEMP 36.6; O2SAT 97; BMI 30.9
--- NOTE | 2025-03-08 11:22 | CT_ITS ---
PROCEDURE: SPINE CERVICAL WITHOUT CONTRAS 03/08/2025 REASON FOR EXAM: FALL ON ELIQUIS TECHNIQUE: Procedure Code: CTSPC Modality: CT Procedure: SPINE CERVICAL WITHOUT CONTRAS Coronal and Sagittal reconstruction series were provided. One or more dose reduction techniques were used (e.g., Automated exposure control, adjustment of the mA and/or kV according to patient size, use of iterative reconstruction technique. RADIATION DOSE SUMMARY: CTDlvol: 26 mGy DLP: 547 mGycm FINDINGS: No evidence of acute fracture or dislocation. Moderate degenerative changes of the midcervical spine. Vertebral body heights are maintained. Mild reversal of the normal cervical lordosis which may be positional or due to spasm. CT/Spine Cervical without Contras IMPRESSION: No evidence of acute fracture. Spondylosis. Reading Location: [id number]
--- NOTE | 2025-03-08 11:22 | CT_ITS ---
PROCEDURE: BRAIN/HEAD WITHOUT CONTRAST 03/08/2025 REASON FOR EXAM: FALL, ON ELIQUIS TECHNIQUE: Procedure Code: CTBR Modality: CT Procedure: BRAIN/HEAD WITHOUT CONTRAST Coronal and Sagittal reconstruction series were provided. One or more dose reduction techniques were used (e.g., Automated exposure control, adjustment of the mA and/or kV according to patient size, use of iterative reconstruction technique. RADIATION DOSE SUMMARY: CTDlvol: 45 mGy DLP: 846 mGycm COMPARISON: None FINDINGS: Brain: There is no evidence of hemorrhage, acute ischemia or mass. No extra- axial fluid collection, midline shift or mass effect. Low-density is seen in the periventricular white matter. Patchy foci of encephalomalacia in the deep white matter of the left parietal lobe. CSF Spaces: Mild ventricular dilation is present along with [id number] central and peripheral volume loss. Sinuses/Mastoids: Mucous retention cyst or polyp partially imaged left maxillary sinus. Small septal spur to the left. Pneumatization of the petrous portions of the temporal bones. Cerumen in the left external auditory canal. Bones: No fracture CT/Brain/Head without Contrast IMPRESSION: 1. No evidence of intracranial hemorrhage or acute ischemia. 2. Changes of chronic microvascular ischemia and severe volume loss. Reading Location: [id number]
--- NOTE | 2025-03-08 11:23 | EX.ED.DYSGE1 ---
HPI History of Present Illness Chief Complaint: Head Injury Narrative Narrative: Patient is a 70-year-old male presenting to the emergency department for a fall with head trauma. Patient is on Eliquis for atrial fibrillation. Patient has a past medical history of hypertension, hyperlipidemia, mitral and tricuspid regurgitation, cerebrovascular disease. Patient states that he stood up from a recliner and leaned forward when he was standing up causing him to lose his balance and he fell forward striking the top of his head. States he lives at a nursing facility and he could not get up by himself so he pressed his call light and they helped him up. He endorses pain at the top of his head where he hit it. Denies any neck or back pain. Denies any chest pain, abdominal pain, hip pain or pain in his arms or legs. Uses a cane to ambulate, has not walked since the fall. [facility] Medical History Essential hypertension Hx of thyroiditis Type 2 diabetes mellitus TIA (transient ischemic attack) [place] (myocardial infarction) Hyperlipidemia Atrial fibrillation with rapid ventricular response Former smoker COPD (chronic obstructive pulmonary disease) Asthma Seizures Stroke/cerebrovascular accident Myocardial infarct Chest pain Atrial fibrillation Non compliance with medical treatment History of embolic stroke LAE (left atrial enlargement) Chronic atrial fibrillation Elevated serum creatinine Mitral regurgitation Pulmonary HTN Tricuspid regurgitation Cerebrovascular disease Valvular heart disease Skull fracture Partial epilepsy with impairment of consciousness Migraine headache Syncope and collapse Home Medications ?Medication ?Instructions ?Recorded ?Last Taken ?Type divalproex 500 mg tablet,delayed 500 mg PO BID 11/15/22 Unknown History release (Depakote) metformin 500 mg tablet,extended 500 mg PO DAILY 11/15/22 Unknown History release 24 hr acetaminophen 500 mg tablet 1,000 mg PO Q6H PRN Pain 11/17/22 Unknown History furosemide 40 mg tablet 40 mg PO DAILY 11/17/22 Unknown History blood pressure test kit-medium #1 ea 06/23/23 Unknown Rx diltiazem HCl 240 mg 240 mg PO DAILY #90 caps 12/05/23 Unknown Rx capsule,extended release 24 hr metoprolol succinate 50 mg 50 mg PO DAILY #90 tabs 01/04/24 Unknown Rx tablet,extended release 24 hr (Toprol XL) apixaban 5 mg tablet 5 mg PO BID #180 tabs 12/20/24 Unknown Rx lisinopril 2.5 mg tablet 2.5 mg PO DAILY 07/09/24 Unknown History methocarbamol 500 mg tablet 500 mg PO Q8H 07/09/24 Unknown History colchicine 0.6 mg capsule 0.6 mg PO BID PRN joint pain #20 07/11/24 Unknown Rx caps prednisone 20 mg tablet 40 mg (2 x 20 mg) PO BREAKFAST #6 07/11/24 Unknown Rx tabs Allergy/AdvReac Type Severity Reaction Status Date / Time Iodinated Contrast Media Allergy Severe Anaphylaxis Verified 07/09/24 08:27 (CONTRASTS) Family History Mother Alzheimer disease Breast cancer Atrial fibrillation Father Hypertension Hyperlipidemia Atrial fibrillation [place] Brother Heart disease Sister Breast cancer Son Seizures Autism Surgical History History of left heart catheterization (LHC) (~09/08/15) Social History household members: none Smoking Status: Former smoker how long ago did patient quit smokin alcohol intake: never substance use type: does not use caffeine: No ROS ROS ED ROS Narrative See HPI EXAM Physical Exam Narrative Exam Narrative: Vital signs: Reviewed General: Alert and oriented x 3. No acute distress. Chronically ill-appearing HEENT: Head is normocephalic. Tenderness to palpation at the crown of the head. There is no cephalohematoma, lacerations or abrasions to the head or face. Midface is stable and nontender to palpation. Pupils 2 mm equal round and reactive. Nares are patent. No septal hematoma oropharynx and throat exams normal. No oropharyngeal trauma Neck: Supple without lymphadenopathy nontender. No midline cervical spinal tenderness to palpation. No step-offs or deformities. Cardiovascular: Regular rate and rhythm, no murmurs. No rubs or gallops. Normal S1 and S2 Respiratory: Clear to auscultation bilaterally. No wheezes, rales, rhonchi Chest: Chest wall is atraumatic and nontender to palpation. No crepitus, erythema or ecchymosis to the chest wall. Abdominal: Soft and nontender. Normal bowel sounds. No guarding or rebound. Nonsurgical abdomen Extremities: Hips are stable and nontender to palpation bilaterally. No midline thoracic or lumbar spinal tenderness to palpation. No step-offs or deformities. Extremities are atraumatic and nontender to palpation with normal active range of motion. Normal sensation. Skin: No rash or redness. Neurological: Cranial nerves II through XII are grossly intact. Normal strength and sensation. Normal cerebellar function The rest of the physical exam is unremarkable Const Vital Signs: 03/08/25 11:11 03/08/25 11:11 Temperature 97.9 F Temperature Source Oral Pulse Rate 108 H Respiratory Rate 18 Respiratory Effort Normal Blood Pressure 141/96 H Blood Pressure Mean 111 Pulse Ox 97 Oxygen Delivery Method Room Air MDM MDM MDM Narrative Medical decision making narrative: Patient is a 70-year-old male presenting to the emergency department after a fall with head trauma on Eliquis. Patient was seen and examined. Vitals are stable. Patient resting in bed comfortably in no acute distress. Given Tylenol for his headache. Patient states that he lost his balance causing him to fall forward and strike his head. Given his age and use of Eliquis a CT scan of his brain and cervical spine will be obtained. There were no other traumatic findings seen on physical exam that necessitate additional CT or x-ray imaging. States that he lost his balance. He denies any prodromal symptoms prior to the fall including chest pain, shortness of breath, abdominal pain, lightheadedness, dizziness. He did not lose consciousness. I do not think that he needs any labs or EKG done given it sounds mechanical in nature. CT brain reviewed myself, no evidence of acute intracranial abnormalities. Radiology read in agreement. CT cervical spine with no evidence of acute fracture. Patient ambulated without difficulty to and from the bathroom multiple times. I updated the patient and brother at bedside about the negative imaging findings. Patient discharged from the Emergency Department. I do not feel that the patient's evaluation reveals any acute reason for admission at this time. I instructed them to either follow-up with their primary care physician or promptly return to the Emergency Department for reevaluation should symptoms worsen or new symptoms develop. I explained what symptoms would indicate the need to return to the emergency department. Shared decision making was used. The patient voiced understanding of the treatment plan and is agreeable with it. Clinical impression: fall Head injury History & Record Review Discussion w/independent historian: Patient Radiography Diagnostic Testing: Clinical Impression(s) from Imaging Studies Brain CT 03/08/25 11:22 IMPRESSION: 1. No evidence of intracranial hemorrhage or acute ischemia. 2. Changes of chronic microvascular ischemia and severe volume loss. Reading Location: [facility] Cervical Spine CT 03/08/25 11:22 IMPRESSION: No evidence of acute fracture. Spondylosis. Reading Location: [address] Discharge Plan Triage Chief Complaint: Head Injury ED Provider: Liza Cho Dx/Rx/DC Orders Clinical Impression: Fall, Head injury Instructions: ED Head Injury (Adult), ED Fall Prevention Prescriptions: No Action metformin 500 mg tablet extended release 24 hr 500 mg PO DAILY Patient Comments: take 1 tablet by mouth once daily with breakfast furosemide 40 mg tablet 40 mg PO DAILY (DME) blood pressure test kit-medium Kit See Rx Instructions .Route Qty: 1 0RF Rx Instructions: As directed acetaminophen 500 mg tablet 1,000 mg PO Q6H PRN (Reason: Pain) divalproex [Depakote] 500 mg tablet,delayed release (DR/EC) 500 mg PO BID methocarbamol 500 mg tablet 500 mg PO Q8H lisinopril 2.5 mg tablet 2.5 mg PO DAILY prednisone 20 mg Tablet 40 mg PO BREAKFAST Qty: 6 0RF colchicine 0.6 mg Capsule 0.6 mg PO BID PRN (Reason: joint pain) Qty: 20 0RF diltiazem HCl 240 mg capsule,extended release 24hr 240 mg PO DAILY Qty: 90 3RF Patient Comments: heart metoprolol succinate [Toprol XL] 50 mg tablet extended release 24 hr 50 mg PO DAILY Qty: 90 3RF apixaban 5 mg tablet 5 mg PO BID Qty: 180 3RF Patient Comments: blood thinner Primary Care Provider: Aric Enriquez Referrals: Aric Enriquez MD [Primary Care Provider, Medical] - As soon as possible Activity Restrictions/Additional Instructions: Your evaluation in the Emergency Department did not reveal any acute reason for admission. However, I want to emphasize that you may be early in the course of a disease process or illness even if it is not present. For this reason you should follow-up within 24 hours for reevaluation with either your primary care physician or if necessary back here in the Emergency Department. You should return to the Emergency Department immediately if your symptoms worsen or new symptoms develop. Print Language: Khmer Disposition Disposition: Home, Self Care
[2025-03-08 13:01] VITALS: BP 138/46; PULSE 90; RESP 18; TEMP 36.6; O2SAT 98
== END 2025-03-08 13:02 | disposition home or self-care (01) ==
PROVIDERS: Emergency Provider Student in an Organized Health Care Education/Training Program; PCP Family Medicine; Visit Provider Student in an Organized Health Care Education/Training Program
DX: S09.90XA Unspecified injury of head, initial encounter (principal); J44.9 Chronic obstructive pulmonary disease, unspecified; I48.91 Unspecified atrial fibrillation; E11.9 Type 2 diabetes mellitus without complications; I08.1 Rheumatic disorders of both mitral and tricuspid valves; I10 Essential (primary) hypertension; Z79.01 Long term (current) use of anticoagulants; W07.XXXA Fall from chair, initial encounter; E78.5 Hyperlipidemia, unspecified; Z87.891 Personal history of nicotine dependence; Z86.73 Personal history of transient ischemic attack (TIA), and cerebral infarction without residual deficits; I25.2 Old myocardial infarction
CPT/HCPCS: 70450; 72125; 99283

== ENCOUNTER → 2025-04-15 04:00 | Outpatient (REF) | payer MEDICARE, MEDICAID, SELFPAY ==
--- OUTSIDE RECORDS SUMMARY | 2025-04-15 03:47 | XMS RPT_ITS | CCD ---
Author Organization [facility] Care Team Providers Care Marketing Services Rep Name Role Phone Aric Zapien MD Primary Care Provider Dr. Aric Zapien Primary Care Provider Dr. Aric Zapien Referring Provider Gokul MERCHANDISE EXECUTION LEADER, AYLIN [place] Attending Provider Aric Zapien MD Primary Care Provider Haagen PLASTER PATTERN CASTER.REFRACTORY MIXER, Meenakshi Unavailable Suppan PLASTER PATTERN CASTER.REFRACTORY MIXER, Florinda A Unavailable [phone] Suppan PLASTER PATTERN CASTER.REFRACTORY MIXER, Florinda A Unavailable Dr. Aric Zapien MD Primary Care Provider Dr. Yann Miller MD Attending Provider Dr. Priscilla Reynaga MD Referring Provider Dr. Priscilla Reynaga MD Emergency Provider [phone] Dr. Yann Ascencio DO Admit Provider [phone] Dr. Yann Ascencio DO Attending Provider Surekha NORIEGA, Dr. Marte Attending Provider Dr. Yann Ascencio DO Other Provider Karon NORIEGA, Dr. Benito Attending Provider UnavailDr. Jigna Osman MD Referring Provider ARIC Logan Primary Care Unavailable FLORINDA STEVENSON Referring Unavailable ARIC ZAPIEN Primary Care Unavailable FLORINDA STEVENSON Referring Unavailable ARIC ZAPIEN Primary Care Unavailable FLORINDA STEVENSON Attending Unavailable RENUKA MAX Attending Unavailable RUPALI ARIC Primary Care Unavailable [place] , Dr. Corbett Primary Care Physician Karon NORIEGA, Dr. Benito Attending Physician Unavail able Karon NORIEGA, Dr. Benito Referring Provider Unavailverenice Cho MD, Dr. De Jesus Attending Physician Unavailverenice Cho MD, Dr. De Jesus Emergency Department Physici an Unavailable Joppwily, Yann Admitting Unavailable Silva, Yann Attending Unavailable Silva, Yann Consulting Unavailable Rupali, Aric Primary Care Unavailable Parkppwily, Yann Attending Unavailable [place], Aric Primary Care Unavailable Gudla OLS, Jigna Referring Unavailable [place], Aric Primary Care Unavailable Gudla OLS, Jigna Attending Unavailable Priscilla Reynaga Referring Unavailable Yann Miller Attending Unavailable Rupali, Aric Primary Care Unavailable Estuardo Irby Attending Unavailabl e [place], Aric Primary Care Unavailable Gudla OLS, Jigna Attending Unavailable Rupali, Aric Primary Care Unavailable Gudla OLS, Jigna Referring Unavailable [place], Aric Primary Care Unavailable Gudla OLS, Jigna Attending Unavailable Gudla OLS, Jigna Attending Unavailable [place], Aric Primary Care Unavailable Gudla OLS, Jigna Attending Unavailable Rupali, Aric Primary Care Unavailable Silva, Yann Attending Unavailable Parkppwily, Yann Admitting Unavailable Rupali, Aric Primary Care Unavailable [place], Aric Primary Care Unavailable Gudla OLS, Jigna Attending Unavailable Gudla OLS, Jigna Attending Unavailable Rupali, Aric Primary Care Unavailable Gudla OLS, Jigna Attending Unavailable [place], Aric Primary Care Unavailable Gudla OLS, Jigna Attending Unavailable Rupali, Aric Primary Care Unavailable Gudla OLS, Jigna Attending Unavailable [place], Aric Primary Care Unavailable Gudla OLS, Jigna Attending Unavailable Rupali, Aric Primary Care Unavailable Liza Cho Attending Unavailable [place], Aric Primary Care Unavailable Gudla OLS, Jigna Referring Unavailable Gudla OLS, Jigna Attending Unavailable [place], Aric Primary Care Unavailable Allergies Allergy Classification Reported Allergen(s) Allergy Type Date of Onset Reaction(s) Facility (20 sources) Contrast media; Translations: [DYE] Drug Intolerance 03-02-20 16 Other: See Comments [facility] Work Phone: (7 sources) Triiodobenzoic Acids Allergy to substance 03-06-20 Anaphylaxis [facility] Comment on above: used for heart cath (1 source) Iodinated Contrast Media Drug allergy (disorder) 07-09-19 [facility] Repository Medications Current Medications Medication Drug Class(es) Dates Sig (Normalized) Sig (Original) acetaminophen 500 mg oral tablet (19 sources) Start: 11-17-2022 take 2 tablets by mouth every six hours as needed for pain Start: 11-17-2022 take 1000 mg by mout [...] 15, 2022 1:04pm November 17, 2022 2:04pm Blood Pressure Test Kit-Medi um (1 source) Start: 06-23-2023 Blood Pressure Test Kit-Medium Active 0 .Route 1 June 23, 2023 12:00am As directed Blood Pressure Test Kit-Medi um kit (5 sources) Start: 06-23-2023 Blood Pressure Test Kit-Medium kit Active 0 .Route 1 0 June 23, 2023 1:00am HTN As directed Start: 06-23-2023 Blood Pressure Test Kit-Medium kit Active 0 .Route 1 June 23, 2023 1:00am As directed Blood-Glucose Meter monitoring kit (2 sources) Start: 04-01-2022 End: 04-02-2022 Blood-Glucose Meter monitoring kit Indications: Type 2 diabetes mellitus without complication, without long-term current use of insulin ([facility]) Glucose Meter of Choice - Kit - Dx: Type 2 DM - Uncontrolled E11.65 1 Each 0 04/01/2022 04/02/2022 Active Comment on above: Glucose Meter of Cho ice - Kit - Dx: Type 2 DM - Uncontrolled E11.65 colchicine 0.6 mg oral capsule (5 sources) Start: 07-11-2024 take 1 capsule by mouth twice daily as needed for pain furosemide 40 mg oral tablet (20 sources) Loop Diuretic Start: 04-03-2022 End: 10-30-2024 take 1 tablet by mouth once daily Start: 07-23-2015 End: 06-20-2017 take 1 tablet by mouth once daily Furosemide 40 MG tablet Discontinued 40 mg PO DAILY September 05, 2015 12:00am June 20, 2017 1:48pm Start: 07-23-2015 End: 11-17-2022 take 1 tablet by mouth twice daily Furosemide 40 mg tablet Discontinued 40 mg PO TWICE A DAY 180 3 August 24, 2021 12:59pm November 17, 2022 3:04pm Comment on above: Take 1 tablet by onelia th once daily. Take 40 mg by mouth twice daily. lisinopril 2.5 mg oral tablet (9 sources) Angiotensin Converting Enzyme Inhibitor Start: 06-25-2024 End: 06-25-2025 take 1 tablet by mouth once daily 24 hr metFORMIN hydrochloride 500 mg extended release oral tablet (20 sources) Biguanide Start: 11-15-2022 End: 11-22-2023 take 1 tablet by mouth once daily Start: 03-26-2021 End: 09-15-2022 take 1 tablet [...] with breakfast. methocarbamol 500 mg oral tablet (10 sources) Muscle Relaxant Start: 07-09-2024 take 1 tablet by mouth every eight hours Start: 06-22-2024 End: 09-20-2024 take 1 tablet by mouth three times daily methocarbamol (ROBAXIN) 500 mg tablet Indications: Acute low back pain without sciatica, unspecified back pain laterality Take 1 tablet by mouth three times a day. 90 tablet 2 06/22/2024 09/20/2024 Active perflutren lipid microspheres 1.3 mL in NaCl (PF) 0.9% 10 mL injection (DEFINITY) (13 sources) Start: 03-10-2022 End: 06-09-2023 perflutren lipid microspheres 1.3 mL in NaCl (PF) 0.9% 10 mL injection (DEFINITY) predniSONE 20 mg oral tablet (5 sources) Start: 07-11-2024 take 2 tablets by mouth at breakfast 125 ml sodium chloride 9 mg/ml prefilled syringe (13 sources) Start: 03-10-2022 End: 06-09-2023 sodium chloride 0.9 % (flush) 10 mL (BD POSIFLUSH) divalproex sodium 500 mg delayed release oral tablet (20 sources) Mood Stabilizer, Anti-epilepti c Agent Start: 10-17-2022 End: 12-11-2024 take 1 tablet by mouth twice daily Start: 03-04-2021 End: 07-02-2022 take 1 tablet [...] / oxyCODONE hydrochloride 5 mg oral tablet (7 sources) Opioid Agonist Start: 04-15-2013 End: 06-30-2013 [...] 15, 2013 12:00am June 30, 2013 12:08pm apixaban 5 mg oral tablet (20 sources) Factor Xa Inhibitor Start: 04-29-2015 End: 05-18-2024 take 1 tablet by mouth twice daily Apixaban 5 mg tablet Discontinued 5 mg PO TWICE A DAY 180 3 February 28, 2023 12:48pm May 18, 2024 2:14pm Comment on above: Take 1 tablet by mouth twice daily. ascorbic acid 500 mg oral tablet (18 sources) Vitamin C End: 09-30-2022 take 1 tablet by mouth once daily ascorbic acid, vitamin C, (VITAMIN C) 500 mg tablet Take 500 mg by mouth once daily. 09/30/2022 Discontinued (Other) Comment on above: Take 500 mg by mouth once daily. aspirin 325 mg delayed release oral tablet (14 sources) Platelet Aggregation Inhibitor, Nonsteroidal Anti-inflammatory Drug [...] Discontinued 80 mg PO AT BEDTIME 90 3 June 26, 2018 3:42pm July 03, 2018 9:46am carBAMazepine 200 mg oral tablet (7 sources) Mood Stabilizer Start: 04-26-2015 End: 04-29-2015 [...] 2015 4:29pm cholecalciferol 0.025 mg oral tablet (7 sources) Vitamin D Start: 04-26-2015 End: 11-17-2022 [...] 24hr Discontinued 240 mg PO DAILY 90 3 September 06, 2023 8:48pm December 05, 2023 9:41am Start: 02-10-2015 End: 02-10-2015 take 1 capsule by mouth twice daily Diltiazem Hcl 120 MG capsule Discontinued 120 mg PO TWICE A DAY 60 0 February 10, 2015 12:00am February 10, 2015 [...] Comment on above: [facility] guaifenesin/dextrometh orphan (DEXTROMETHORPHAN-GUAI FENESIN ORAL) [...] nee ded. hydroCHLOROthiazide 25 mg oral tablet (7 sources) Thiazide Diuretic Start: 3 End: 4 Hydrochlorothiazide 25 MG tablet Discontinued April 15, 2013 1:00am June 30, 2013 1:09pm Start: 04-15-2013 End: 06-30-2013 Hydrochlorothiazide Disconti nued April 15, 2013 12:00am June 30, 2013 12:09pm hydroCHLOROthiazide 12.5 mg / lisinopril 10 mg oral tablet (7 sources) Thiazide Diuretic, Angiotensin Converting Enzyme Inhibitor Start: 04-15-2013 End: 09-17-2014 take 1 tablet by mouth once daily Lisinopril-Hydrochlorothiazide (Zestoretic 10/12.5 Tablet) 1 TABLET tablet Discontinued 2 {tbl} PO DAILY April 15, 2013 1:00am September 17, 2014 9:30am 24 hr metoprolol succinate 50 mg extended release oral tablet (20 sources) beta-Adrenerg ic Brett Start: 09-05-2015 End: 11-21-2024 take 1 tablet by mouth once daily Metoprolol Succinate (Toprol Xl) 50 mg tablet extended release 24 hr Discontinued 50 mg PO DAILY 90 3 November 02, 2023 10:00am January 04, 2024 8:00am Start: 07-23-2015 End: 03-09-2022 take 1 tablet by mouth twice daily metoprolol tartrate, short acting, (LOPRESSOR) 50 mg tablet Take 1 tablet by mouth twice daily. 60 tablet 0 07/23/2015 03/09/2022 Discontinued Start: 02-10-2015 End: 04-29-2015 take 1 tablet by mouth twice daily Metoprolol Tartrate 50 MG tablet Discontinued 50 mg PO TWICE A DAY 60 0 February 10, 2015 12:02pm April 29, 2015 [...] Take 1 tablet by onelia twice daily. Take 50 mg by mouth once daily. Take 1 tablet by [facility] once daily. Er-Mwr-Rqxxj-K1-Lycope n-Lutein (Centrum Silver Men) 300-600-300 mcg tablet (6 sources) Start: 11-15-2022 End: 11-17-2022 Cz-Vgt-Fntyl-W8-Cyafbie-Bw tein (Centrum Silver Men) 300-600-300 mcg tablet Discontinued 1 {tbl} PO DAILY November 15, 2022 12:00am November 17, 2022 3:04pm Start: 11-15-2022 End: 11-17-2022 take 300-600 tablets by mouth once daily Lt-Oix-Yjayg-O2-Papmpvf-Ovyxpo (Bobbium Manjinder Paez) 300-600-300 mcg tablet Discontinued 1 TABLET PO DAILY November 14, 2022 11:00pm November 17, 2022 2:04pm ondansetron 4 mg disintegrating oral tablet (7 sources) Serotonin-3 Receptor Antagonist Start: 04-15-2013 End: [...] Comment on above: Take 1 tablet by [facility] once daily. proparacaine hydrochloride 5 mg/ml ophthalmic solution (2 sources) Local Anesthetic Start: 04-12-2022 End: 04-13-2022 proparacaine 0.5 % 1 Drop (ALCAINE) tropicamide 10 mg/ml ophthalmic solution (2 sources) Anticholinergic Start: 04-12-2022 End: 04-13-2022 tropicamide 1 % 1 Drop (MYDRIACYL) warfarin sodium 5 mg oral tablet (7 sources) Vitamin K Antagonist Start: 04-26-2015 End: [...] Translations: [Chronic obstructive pulmonary disease, unspecified] Onset: 03-11-2025 Chronic Diabetes mellitus without complication (20 sources) Type 2 diabetes mellitus without complication; Translations: [Type 2 diabetes mellitus without complications] Onset: 03-26-2021 Chronic Disorders of lipid metabolism (20 sources) Hyperlipidemia; Translations: [Hyperlipidemia, unspecified] Onset: 07-23-2015 07-23-2015 Chronic E Codes: Fall (4 sources) Fall; Translations: [Unspecified fall, initial encounter] Onset: 06-22-2024 06-22-2024 Episodic Epilepsy; convulsions (20 sources) Partial epilepsy with impairment of consciousness; Translations: [Localization-related (focal) (partial) symptomatic epilepsy and epileptic syndromes with complex partial seizures, not intractable, without status epilepticus] Onset: 06-27-2020 Resolved: 03-25-2021 Chronic Essential hypertension (20 sources) Hypertensive disorder; [...] Onychomycosis; Translations: [Tinea unguium] Episodic Other aftercare (20 sources) Long-term current use of anticoagulant; Translations: [retirement (current) use of anticoagulants] Onset: 09-30-2022 09-30-2022 Episodic Other aftercare (2 sources) Other termite treater (current) drug therapy; Translations: [Other penitentiary (current) drug therapy] Onset: 01-10-2025 Episodic Other and ill-defined cerebrovascular disease (7 sources) Cerebrovascular disease; Translations: [Cerebrovascular disease, unspecified] [...] (HCC)] Onset: 07-26-2017 Chronic Other circulatory disease (7 sources) History of embolic cerebrovascular accident; Translations: [...] foot] 03-12-2021 Episodic Other connective tissue disease (7 sources) Pain in lower limb; Translations: [Pain in right leg] 07-19-2024 Episodic Other fractures (1 source) Compression fracture of lumbar spine; Translations: [Wedge compression fracture of first lumbar vertebra, initial encounter for closed fracture] 06-22-2024 Episodic Other injuries and conditions due to external causes (2 sources) Injury of head; Translations: [Unspecified injury of head, initial encounter] 03-16-2025 Episodic Other injuries and conditions due to external causes (1 source) Unspecified injury of head, initial encounter; Translations: [Unspecified injury of head, initial encounter] Onset: 03-18-2025 Episodic Other nervous system disorders (20 sources) Dow's palsy; 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] Onset: 09-30-2022 09-30-2022 Episodic Other nervous system disorders (1 source) Tremor, unspecified; Translations: [Tremor, unspecified] Onset: 01-10-2025 Episodic Other non-traumatic joint disorders (1 source) Acute ankle pain; Translations: [Pain in right ankle and joints of right foot] 03-12-2021 Episodic Other non-traumatic joint disorders (7 sources) Ankle pain; Translations: [Pain in right ankle and joints of right foot] 07-19-2024 Episodic Other nutritional; endocrine; and metabolic disorders (1 source) H/O: thyroid disorder; Translations: [Personal history of other endocrine, nutritional and metabolic disease] Episodic Other screening for suspected conditions (not mental disorders or infectious disease) (20 sources) Patient encounter status; Translations: [Encounter for screening for malignant neoplasm of colon] Onset: 09-30-2022 Resolved: 09-30-2022 Episodic Other skin disorders (1 source) Disorder of nail; Translations: [Other nail disorders] 11-22-2023 Episodic Other upper respiratory infections (2 sources) Sore throat symptom; Translations: [Acute pharyngitis, unspecified] 12-07-2022 Episodic Belkys-; endo-; and myocarditis; cardiomyopathy (except that caused by tuberculosis or sexually transmitted disease) (8 sources) Heart valve disorder; Translations: [Endocarditis, valve unspecified] 11-15-2022 Chronic Comment on above: mitral valve thicken ing with mild MR and mild - moderate TR Peripheral and visceral atherosclerosis (1 source) Peripheral vascular disease; Translations: [Peripheral vascular disease, unspecified] Chronic Pulmonary heart disease (20 sources) Idiopathic pulmonary arterial hypertension ; Translations: [Primary pulmonary hypertension] Onset: 07-26-2017 07-26-2017 Chronic Residual codes; unclassified (20 sources) Noncompliance with treatment; Translations: [Noncompliance with treatment] Onset: 09-30-2022 09-30-2022 Episodic Residual codes; unclassified (2 sources) Edema; Translations: [Edema, unspecified] Episodic Skull and face fractures (20 sources) Fracture of skull; Translations: [Unspecified fracture of skull, initial encounter for closed fracture] Onset: 09-30-2022 Resolved: 09-30-2022 11-15-2022 Episodic Spondylosis; intervertebral disc disorders; other back problems (1 source) Acute low back pain; Translations: [Acute low back pain without sciatica, unspecified back pain laterality] 06-22-2024 Episodic Syncope (20 sources) Syncope and collapse; Translations: [Syncope and collapse] Onset: 09-30-2022 Resolved: 09-30-2022 11-15-2022 Episodic Unclassified (1 source) Acute low back pain without sciatica, unspecified back pain laterality; Translations: [Acute low back pain without sciatica, unspecified back pain laterality] Onset: 06-22-2024 Unclassified (1 source) 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; Translations: [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 (HCC)] Onset: 01-21-2022 Urinary tract infections (1 source) Urinary tract infection, site not specified; Translations: [Urinary tract infection, site not specified] Onset: 03-05-2025 Episodic Past or Other Problems Problem Classification Problem Date Documented Date Episodic/Chronic Administrative/social admission (17 sources) Repeated prescription; Translations: [Encounter for issue of repeat prescription] Onset: 09-30-2022 Resolved: 09-30-2022 09-30-2022 Episodic Allergic reactions (19 sources) Allergic condition; Translations: [Allergy, unspecified, initial encounter] Onset: 09-30-2022 09-30-2022 Episodic Diabetes mellitus without complication (19 sources) Hyperglycemia; Translations: [Hyperglycemia, unspecified] Onset: 03-23-2017 Resolved: 03-26-2021 Episodic Epilepsy; convulsions (20 sources) Seizure; Translations: [Unspecified [...] skin] Onset: 09-30-2022 09-30-2022 Episodic Other aftercare (1 source) 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; Translations: [retirement current use of 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] Onset: 09-30-2022 Episodic Other injuries and conditions due to external causes (20 sources) H/O: head injury; Translations: [Personal history of (healed) traumatic fracture] Onset: 09-30-2022 Episodic Other non-traumatic joint disorders (1 source) Pain in right ankle and joints of right foot; Translations: [Pain in right ankle and joints of right foot] Onset: 07-16-2024 Episodic Other non-traumatic joint disorders (1 source) Pain in left ankle and joints of left foot; Translations: [Pain in left ankle and joints of left foot] Onset: 07-16-2024 Episodic Other upper respiratory disease (19 sources) Polyp of nasal sinus; Translations: [Other polyp of sinus] Onset: 09-30-2022 09-30-2022 Episodic Results Test Name Value Interpretation Reference Range Facility Brain/Head without Contrasto n 03-08-2025 Brain/Head without Contrast [facility] Imaging Services [address] [place], [place] [address] Brain/Head without Contrast MR#: [id number] Acct: [id number] Name: REINA SULLIVAN Rep #: [id number] : 1955 M 70 From: Meek Rodriguez MD PCP: Dr. Aric Zapien MD Status: [facility] Study: Brain/Head without Contrast Date of Exam: 02/27 Exam# [id number] Ordering Dr: Liza Cho MD PROCEDURE: BRAIN/HEAD WITHOUT CONTRAST 03/08/2025 REASON FOR EXAM: FALL, ON ELIQUIS TECHNIQUE: Procedure Code: CTBR Modality: CT Procedure: BRAIN/HEAD WITHOUT CONTRAST Coronal and Sagittal reconstruction series were provided. One or more dose reduction techniques were used (e.g., Automated exposure control, adjustment of the mA and/or kV according to patient size, use of iterative reconstruction technique. RADIATION DOSE SUMMARY: CTDlvol: 45 mGy DLP: 846 mGycm COMPARISON: None FINDINGS: Brain: There is no evidence of hemorrhage, acute ischemia or mass. No extra-axial fluid collection, midline shift or mass effect. Low-density is seen in the periventricular white matter. Patchy foci of encephalomalacia in the deep white matter of the left parietal lobe. CSF Spaces: Mild ventricular dilation is present along with txikpnoi-sg-faulxj central and peripheral volume loss. Sinuses/Mastoids: Mucous retention cyst or polyp partially imaged left maxillary sinus. Small septal spur to the left. Pneumatization of the petrous portions of the temporal bones. Cerumen in the left external auditory canal. Bones: No fracture CT/Brain/Head without Contrast IMPRESSION: 1. No evidence of intracranial hemorrhage or acute ischemia. 2. Changes of chronic microvascular ischemia and severe volume loss. Reading Location: [id number] CC: Dr. Liza Cho MD; Dr. Aric Zapien MD Tariff Clerk: Signed Normal [facility] Emergency Department Summary on 03-08-2025 Emergency Department Summary [facility] Medical Records Department [address] [place] [address] Emergency Department Summary 03/08/25 MR#: [id number] Acct: [id number] Name: REINA SULLIVAN Rep #: [id number] : 1955 70 From: Liza Cho MD PCP: Dr. Aric Zapien MD Status:REG ER Location: ED HPI History of Present Illness Chief Complaint: Head Injury Narrative Narrative: Patient is a 70-year-old male presenting to the emergency department for a fall with head trauma. Patient is on Eliquis for atrial fibrillation. Patient has a past medical history of hypertension, hyperlipidemia, mitral and tricuspid regurgitation, cerebrovascular disease. Patient states that he stood up from a recliner and leaned forward when he was standing up causing him to lose his balance and he fell forward striking the top of his head. States he lives at a nursing facility and he could not get up by himself so he pressed his call light and they helped him up. He endorses pain at the top of his head where he hit it. Denies any neck or back pain. Denies any chest pain, abdominal pain, hip pain or pain in his arms or legs. Uses a cane to ambulate, has not walked since the fall. [facility] Medical History Essential hypertension Hx of thyroiditis Type 2 diabetes mellitus TIA (transient ischemic attack) ID (myocardial infarction) Hyperlipidemia Atrial fibrillation with rapid [...] mg PO Q8H 07/09/24 Unknown His tory colchicine 0.6 mg capsule 0.6 mg PO BID PRN joint pain #20 0 07/11/24 Unknown Rx caps prednisone 20 mg tablet 40 mg (2 x 20 mg) PO BREAKFAST #6 07/11/24 Unknown Rx tabs Allergy/AdvReac Type Severity Reaction Status Date / [...] not use caffeine: No ROS ROS ED ROS Narrative See HPI EXAM Physical Exam Narrative Exam Narrative: Vital signs: Reviewed General: Alert and oriented x 3. No acute distress. Chronically ill-appearing HEENT: Head is normocephalic. Tenderness to palpation at the crown of the head. There is no cephalohematoma, lacerations or abrasions to the head or face. Midface is stable and nontender to palpation. Pupils 2 mm equal round and reactive. Nares are patent. No septal hematoma oropharynx and throat exams normal. No oropharyngeal trauma Neck: Supple without lymphadenopathy nontender. No midline cervical spinal tenderness to palpation. No step-offs or deformities. Cardiovascular: Regular rate and rhythm, no murmurs. No rubs or gallops. Normal S1 and S2 Respiratory: Clear to auscultation bilaterally. No wheezes, rales, rhonchi Chest: Chest wall is atraumatic and nontender to palpation. No cr (more content not included)... Normal [facility] Spine Cervical without Contr ason 03-08-2025 Spine Cervical without Contras [facility] Imaging Services [address] [place] [id number] Spine Cervical without Contras MR#: [id number] Acct: [id number] Name: REINA SULLIVAN Rep #: [id number] : 1955 70 From: Luca Levi MD PCP: Dr. Aric Zapien MD Status: [facility] ER Study: Spine Cervical without Contras Date of Exam: Exam# [id number] Ordering Dr: Liza Cho MD PROCEDURE: SPINE CERVICAL WITHOUT CONTRAS 03/08/2025 REASON FOR EXAM: FALL ON ELIQUIS TECHNIQUE: Procedure Code: CTSPC Modality: CT Procedure: SPINE CERVICAL WITHOUT CONTRAS Coronal and Sagittal reconstruction series were provided. One or more dose reduction techniques were used (e.g., Automated exposure control, adjustment of the mA and/or kV according to patient size, use of iterative reconstruction technique. RADIATION DOSE SUMMARY: CTDlvol: 26 mGy DLP: 547 mGycm FINDINGS: No evidence of acute fracture or dislocation. Moderate degenerative changes of the midcervical spine. Vertebral body heights are maintained. Mild reversal of the normal cervical lordosis which may be positional or due to spasm. CT/Spine Cervical without Contras IMPRESSION: No evidence of acute fracture. Spondylosis. Reading Location: [address] CC: Dr. Liza Cho MD; Dr. Aric Zapien MD Tariff Clerk: Signed Normal [facility] Serum or plasma valproate me asurement (mass/volume)Ordered By: Jigna Brantley on 01-31-2025 Valproate [Mass/Vol] 73 ug/mL 50-100 [facility] Comment on above: Valproic Acid concen trations >100 ug/mL are potentially toxic. Valproic Acid (Depakene) Lev cecil 01-31-2025 VALPROIC ACID 73 ug/mL Normal 50-100 [facility] Comment on above: Order Comment: 133 Result Comment: Valp roic Acid concentrations >100 ug/mL are potentially toxic. Performed By: #### L 501.8100 ####[facility] [address] [facility] [address] Anion gap in Serum or Plasma Ordered By: Jigna Brantley on 01-21-2025 Anion gap [Moles/Vol] 12 mmol/L 5-15 [facility] BUN/creatinine ratioOrdered By: Jigna Brantley on 01-21-2025 Urea nitrogen/Creatinine [Mass ratio] 21.3 mg/mg High 10-20 [facility] Basic Metabolic Profile (BMP )on 01-21-2025 BUN/CRE 21.3 RATIO High [facility]20 [facility] Comment on above: Order Comment: 133 Performed By: #### L 500.2500 ####[facility] [address] [place], [address] Calcium [Mass/Vol] 9.1 mg/dL Normal 7.6-11.0 [facility] Comment on above: Order Comment: 133 Performed By: #### L 500.2500 ####[facility] [address] [place], [address] Chloride [Moles/Vol] 106 mmol/L Normal 98-108 [facility] Comment on above: Order Comment: 133 Performed By: #### L 500.2500 ####[facility] [address] [place], [address] CO2 [Moles/Vol] 24.5 mmol/L Normal 21.0-32.0 [facility] Comment on above: Order Comment: 133 Performed By: #### L 500.2500 ####[facility] [address] [place], [address] Creatinine [Mass/Vol] 1.20 mg/dL Normal 0.70-1.20 [facility] Comment on above: Order Comment: 133 Performed By: #### L 500.2500 ####[facility] [address] [place], [address] GAP 12 Normal 5-15 [facility] Comment on above: Order Comment: 133 Performed By: #### L 500.2500 ####[facility] [address] [place], [address] GFR/1.73 sq M.predicted among non-blacks MDRD (S/P/Bld) [Vol rate/Area] 66 mL/min/{1.73_m2} Normal >60 [facility] Comment on above: Order Comment: 133 Result Comment: mL/m in/1.73m2 CKD-EPI Creatinine Equation (2020) Performed By: #### L 500.2500 ####[facility] [address] [place], [address] Glucose [Mass/Vol] 94 mg/dL Normal 70-99 [facility] Comment on above: Order Comment: 133 Performed By: #### L 500.2500 ####[facility] [address] [place], [address] Potassium [Moles/Vol] 4.0 mmol/L Normal 3.3-5.1 [facility] Comment on above: Order Comment: 133 Performed By: #### L 500.2500 ####[facility] [address] [place], [place], [id number] Sodium [Moles/Vol] 143 mmol/L Normal 133-145 [facility] Comment on above: Order Comment: 133 Performed By: #### L 500.2500 ####[facility] [address] [place], [place], [id number] Urea nitrogen [Mass/Vol] 26 mg/dL High 4-19 [facility] Comment on above: Order Comment: 133 Performed By: #### L 500.2500 ####[facility] [address] [place], [place], [id number] Carbon dioxide, total [Moles /volume] in Central venous bloodOrdered By: Jigna Brantley on 01-21-2025 CO2 [Moles/Vol] 24.5 mmol/L 21.0-32.0 [facility] Chloride assayOrdered By: Fabricio Brantley on 01-21-2025 Chloride [Moles/Vol] 106 mmol/L 98-108 [facility] Glomerular filtration rate ( GFR) estimation/1.73 sq m using serum, plasma, or whole bOrdered By: Jigna Brantley on 01-21-2025 GFR/1.73 sq M.predicted among non-blacks MDRD (S/P/Bld) [Vol rate/Area] 66 mL/min/{1.73_m2} >60 [facility] Comment on above: mL/min/1.73m2 CKD-EP I Creatinine Equation (2020) Potassium measurement (mass/ volume)Ordered By: Jigna Brantley on 01-21-2025 Potassium (Unsp spec) [Mass/Vol] 4.0 mmol/L 3.3-5.1 [facility] Serum creatinine measurement (mass/volume)Ordered By: Jigna Brantley on 01-21-2025 Creatinine [Mass/Vol] 1.20 mg/dL 0.70-1.20 [facility] Serum glucose measurement (m ass/volume)Ordered By: Jigna Brantley on 01-21-2025 Glucose [Mass/Vol] 94 mg/dL 70-99 [facility] Serum or plasma calcium rosalina urement (mass/volume)Ordered By: Jigna Brantley on 01-21-2025 Calcium [Mass/Vol] 9.1 mg/dL 7.6-11.0 [facility] Serum or plasma urea nitroge n measurement (mass/volume)Ordered By: Jigna Brantley on 01-21-2025 Urea nitrogen [Mass/Vol] 26 mg/dL High 4-19 [facility] Sodium levelOrdered By: Enoch Brantley on 01-21-2025 Sodium [Moles/Vol] 143 mmol/L 133-145 [facility] Urine Cultureon 01-13-2025 URC 133 Below infection level. Clinical correlation necessary, Possible skin contamination. Coag Negative Staph [place] Count <1000 Normal [facility] Comment on above: Performed By: #### L 501.4020 #### [facility] [address] [place], [place], [id number] Urinalysis, Completeon 01-11 CA OX CRYSTAL 2+ /hpf Normal [facility] Comment on above: Order Comment: 133CL ARISTIDES CATCH Performed By: #### L 501.4020 #### [facility] [address] [place], [place], [id number] BACTERIA 0 SEEN Normal None Seen [facility] Comment on above: Order Comment: 133CL ARISTIDES CATCH Performed By: #### L [id number] #### [facility] [address] [place], [place], [id number] EPI,SQUAMOUS 0 SEEN Normal 0-5 [facility] Comment on above: Order Comment: 133CL ARISTIDES CATCH Performed By: #### L [id number] #### [facility] [address] [place], [place], [address] Mucus Ql (Urine sed) 0 SEEN Normal [facility] Comment on above: Order Comment: 133CL ARISTIDES CATCH Performed By: #### L [id number] #### [facility] [address] [place], [place], [address] RBC 0 SEEN Normal 0-5 [facility] Comment on above: Order Comment: 133CL ARISTIDES CATCH Performed By: #### L [id number] #### [facility] [address] [place], [place], [address] WBC 0 SEEN Normal 0-5 [facility] Comment on above: Order Comment: 133CL ARISTIDES CATCH Performed By: #### L [id number] #### [facility] [address] [place], [place], [id number] Bilirubin Test strip Ql (U)O rdered By: Jigna Brantley on 01-10-2025 Bilirubin Ql (U) Negative Negative [facility] Calcium oxalate crystals det ection in urine sediment by light microscopyOrdered By: Jigna Brantley on 01-10-2025 Calcium oxalate crystals LM Ql (Urine sed) 2+ /hpf [facility] Ketones Test strip Ql (U)Ord ered By: Jigna Brantley on 01-10-2025 Ketones Ql (U) 5 mg/dl High Negative [facility] Microscopic analysis of urin e for red blood cells (RBC)Ordered By: Jigna Brantley on 01-10-2025 Microscopic analysis of urine for red blood cells (RBC) 0 SEEN /hpf 0-5 [facility] Mucus LM Ql (Urine sed)Order ed By: Jigna Brantley on 01-10-2025 Mucus Ql (Urine sed) 0 SEEN /hpf [facility] Nitrite Test strip Ql (U)Ord ered By: Jigna Brantley on 01-10-2025 Nitrite Ql (U) Negative Negative [facility] Protein Test strip Ql (U)Ord ered By: Jigna Brantley on 01-10-2025 Protein Ql (U) 30 mg/dl High Negative [facility] Squamous epithelial cells de tection in urine sediment by light microscopyOrdered By: Jigna Brantley on 01-10-2025 Epithelial cells.squamous LM Ql (Urine sed) 0 SEEN /hpf 0-5 [facility] Urine clarityOrdered By: Vamshi Brantley on 01-10-2025 Clarity (U) Clear Clear [facility] Urine color determinationOrd ered By: Jigna Brantley on 01-10-2025 Color (U) Yellow Yellow [facility] Urine cultureOrdered By: Vamshi Brantley on 01-10-2025 Bacteria identified Cx Nom (U) Negative Abnormal [facility] Urine glucose detectionOrder ed By: Jigna Brantley on 01-10-2025 Glucose Ql (U) Normal mg/dl Normal [facility] Urine leukocyte esterase det ection by dipstickOrdered By: Jigna Brantley on 01-10-2025 Leukocyte esterase Test strip Ql (U) 25 /ul High Negative [facility] Urine pHOrdered By: Jigna francisco on 01-10-2025 pH (U) 5.0 [pH] 5.0 - 8.0 [facility] Urine sediment bacteria coun t by microscopy (number/high power field)Ordered By: Jigna Brantley on 01-10-2025 Bacteria LM.HPF (Urine sed) [#/Area] 0 /[HPF] None Seen [facility] Urine specific gravity measu rementOrdered By: Jigna Brantley on 01-10-2025 Specific gravity (U) [Rel density] 1.025 1.002-1.030 [facility] Urine urobilinogen measureme ntOrdered By: Jigna Brantley on 01-10-2025 Urobilinogen Ql (U) Normal mg/dl Normal [facility] White blood cell countOrdere d By: Jigna Brantley on 01-10-2025 White blood cell count 0 SEEN /hpf 0-5 [facility] Anion gap in Serum or Plasma Ordered By: Jigna Brantley on 01-02-2025 Anion gap [Moles/Vol] 11 mmol/L 5-15 [facility] BUN/creatinine ratioOrdered By: Jigna Brantley on 01-02-2025 Urea nitrogen/Creatinine [Mass ratio] 21.2 mg/mg High 10-20 [facility] Bilirubin, totalOrdered By: Jigna Brantley on 01-02-2025 Bilirubin [Mass/Vol] 0.23 mg/dL 0.00-1.30 [facility] CBC-Complete Blood Cnt No Di ffon 01-02-2025 Erythrocyte distribution width (RBC) [Ratio] 13.2 % Normal 11.6-14.6 [facility] Comment on above: Order Comment: 133 Performed By: #### L 100.0500, L501.8100, L500.4050 ####[facility] [address] [place], [address] Hematocrit (Bld) [Volume fraction] 42.3 % Normal 40-54 [facility] Comment on above: Order Comment: 133 Performed By: #### L 100.0500, L501.8100, L500.4050 ####[facility] [address] [place], [address] Hemoglobin (Bld) [Mass/Vol] 13.9 g/dL Normal 13.0-16.5 [facility] Comment on above: Order Comment: 133 Performed By: #### L 100.0500, L501.8100, L500.4050 ####[facility] [address] [place], [address] MCH (RBC) [Entitic mass] 31.1 pg Normal 27.0-32.0 [facility] Comment on above: Order Comment: 133 Performed By: #### L 100.0500, L501.8100, L500.4050 ####[facility] [address] [place], [address] MCHC (RBC) [Mass/Vol] 32.9 g/dL Normal 32-36 [facility] Comment on above: Order Comment: 133 Performed By: #### L 100.0500, L501.8100, L500.4050 ####[facility] [address] [place], [address] MCV (RBC) [Entitic vol] 94.6 fL High 80-94 [facility] Comment on above: Order Comment: 133 Performed By: #### L 100.0500, L501.8100, L500.4050 ####[facility] [address] [place], [address] Platelet mean volume (Bld) [Entitic vol] 11.5 fL Normal 6.2-12.0 [facility] Comment on above: Order Comment: 133 Performed By: #### L 100.0500, L501.8100, L500.4050 ####[facility] [address] [place], [address] Platelets (Bld) [#/Vol] 215 10*3/uL Normal 150-450 [facility] Comment on above: Order Comment: 133 Performed By: #### L 100.0500, L501.8100, L500.4050 ####[facility] [address] [place], [address] RBC (Bld) [#/Vol] 4.47 10*6/uL Low 4.6-6.2 [facility] Comment on above: Order Comment: 133 Performed By: #### L 100.0500, L501.8100, L500.4050 ####[facility] [address] [place], [address] RDW SD 45.1 fl High 35.1-43.9 [facility] Comment on above: Order Comment: 133 Performed By: #### L 100.0500, L501.8100, L500.4050 ####[facility] [address] [place], [address] WBC (Bld) [#/Vol] 7.4 10*3/uL Normal 4.4-11.0 [facility] Comment on above: Order Comment: 133 Performed By: #### L 100.0500, L501.8100, L500.4050 ####[facility] [address] [place], [address] Carbon dioxide, total [Moles /volume] in Central venous bloodOrdered By: Jigna Brantley on 01-02-2025 CO2 [Moles/Vol] 25.3 mmol/L 21.0-32.0 [facility] Chloride assayOrdered By: Fabricio Brantley on 01-02-2025 Chloride [Moles/Vol] 106 mmol/L 98-108 [facility] Comprehensive Metabolic Prof ilon 01-02-2025 Albumin [Mass/Vol] 4.0 g/dL Normal 3.4-4.8 [facility] Comment on above: Order Comment: 133 Performed By: #### L 501.080 #### [facility] [address] [place], [address] Albumin/Globulin [Mass ratio] 1.8 {ratio} Normal 0.9-2.4 [facility] Comment on above: Order Comment: 133 Performed By: #### L 501.080 #### [facility] [address] [place], [address] ALK PHOS 59 U/L Normal 40-129 [facility] Comment on above: Order Comment: 133 Performed By: #### L 501.080 #### [facility] [address] [place], [address] ALT [Catalytic activity/Vol] 8 U/L Normal <=46 [facility] Comment on above: Order Comment: 133 Performed By: #### L 501.080 #### [facility] [address] [place], [address] AST [Catalytic activity/Vol] 17 U/L Normal <=37 [facility] Comment on above: Order Comment: 133 Performed By: #### L 501.080 #### [facility] [address] [place], [address] Bilirubin [Mass/Vol] 0.23 mg/dL Normal 0.00-1.30 [facility] Comment on above: Order Comment: 133 Performed By: #### L 501.080 #### [facility] [address] [place], [address] BUN/CRE 21.2 RATIO High 10-20 [facility] Comment on above: Order Comment: 133 Performed By: #### L 501.080 #### [facility] [address] [place], [address] Calcium [Mass/Vol] 9.1 mg/dL Normal 7.6-11.0 [facility] Comment on above: Order Comment: 133 Performed By: #### L 501.080 #### [facility] [address] [place], [address] Chloride [Moles/Vol] 106 mmol/L Normal 98-108 [facility] Comment on above: Order Comment: 133 Performed By: #### L 501.080 #### [facility] [address] [place], [address] CO2 [Moles/Vol] 25.3 mmol/L Normal 21.0-32.0 [facility] Comment on above: Order Comment: 133 Performed By: #### L 501.080 #### [facility] [address] [place], [address] Creatinine [Mass/Vol] 1.35 mg/dL High 0.70-1.20 [facility] Comment on above: Order Comment: 133 Performed By: #### L 501.080 #### [facility] [address] [place], [address] GAP 11 Normal 5-15 [facility] Comment on above: Order Comment: 133 Performed By: #### L 501.080 #### [facility] [address] [place], [address] GFR/1.73 sq M.predicted among non-blacks MDRD (S/P/Bld) [Vol rate/Area] 58 mL/min/{1.73_m2} Low >60 [facility] Comment on above: Order Comment: 133 Result Comment: mL/m in/1.73m2 CKD-EPI Creatinine Equation (2020) Performed By: #### L 501.080 #### [facility] [address] [place], [address] Globulin (S) [Mass/Vol] 2.2 g/dL Normal 2.2-4.2 [facility] Comment on above: Order Comment: 133 Performed By: #### L 501.080 #### [facility] [address] [place], [address] Glucose [Mass/Vol] 95 mg/dL Normal 70-99 [facility] Comment on above: Order Comment: 133 Performed By: #### L 501.080 #### [facility] [address] [place], [address] Potassium [Moles/Vol] 4.7 mmol/L Normal 3.3-5.1 [facility] Comment on above: Order Comment: 133 Performed By: #### L 501.080 #### [facility] [address] [place], [address] Sodium [Moles/Vol] 143 mmol/L Normal 133-145 [facility] Comment on above: Order Comment: 133 Performed By: #### L 501.080 #### [facility] [address] [place], [address] T PROT 6.2 g/dL Normal 5.9-8.4 [facility] Comment on above: Order Comment: 133 Performed By: #### L 501.080 #### [facility] [address] [place], [address] Urea nitrogen [Mass/Vol] 29 mg/dL High 4-19 [facility] Comment on above: Order Comment: 133 Performed By: #### L 501.080 #### [facility] [address] [place], [address] Erythrocyte distribution wid th ratioOrdered By: Jigna Brantley on 01-02-2025 Erythrocyte distribution width (RBC) [Ratio] 13.2 % 11.6-14.6 [facility] Erythrocyte distribution wid th standard deviationOrdered By: Jigna Brantley on 01-02-2025 Erythrocyte distribution width (RBC) [Ratio] 45.1 fl High 35.1-43.9 [facility] Glomerular filtration rate ( GFR) estimation/1.73 sq m using serum, plasma, or whole bOrdered By: Jigna Brantley on 01-02-2025 GFR/1.73 sq M.predicted among non-blacks MDRD (S/P/Bld) [Vol rate/Area] 58 mL/min/{1.73_m2} Low >60 [facility] Comment on above: mL/min/1.73m2 CKD-EP I Creatinine Equation (2020) Hematocrit Auto (Bld) [Volum e fraction]Ordered By: Jigna Brantley on 01-02-2025 Hematocrit (Bld) [Volume fraction] 42.3 % 40-54 [facility] Hemoglobin measurementOrdere d By: Jigna Brantley on 01-02-2025 Hemoglobin (Bld) [Mass/Vol] 13.9 g/dL 13.0-16.5 [facility] - Chemistry and C hemistry - challengeOrdered By: Jigna Brantley on 01-02-2025 AST [Catalytic activity/Vol] 17 U/L <38 [facility] MCV (mean corpuscular volume ) determinationOrdered By: Jigna Brantley on 01-02-2025 MCV (RBC) [Entitic vol] 94.6 fL High 80-94 [facility] Mean corpuscular hemoglobin (MCH) determinationOrdered By: Jigna Brantley on 01-02-2025 MCH (RBC) [Entitic mass] 31.1 pg 27.0-32.0 [facility] Mean corpuscular hemoglobin concentration (MCHC) determinationOrdered By: Jigna Brantley on 01-02-2025 MCHC (RBC) [Mass/Vol] 32.9 g/dL 32-36 [facility] Mean platelet volume determi nationOrdered By: Jigna Brantley on 01-02-2025 Platelet mean volume (Bld) [Entitic vol] 11.5 fL 6.2-12.0 [facility] Platelet countOrdered By: Fabricio Brantley on 01-02-2025 Platelets (Bld) [#/Vol] 215 10*3/uL 150-450 [facility] Potassium measurement (mass/ volume)Ordered By: Jigna Brantley on 01-02-2025 Potassium (Unsp spec) [Mass/Vol] 4.7 mmol/L 3.3-5.1 [facility] RBC Auto (Bld) [#/Vol]Ordere d By: Jigna Brantley on 01-02-2025 RBC (Bld) [#/Vol] 4.47 10*6/uL Low 4.6-6.2 [facility] Serum creatinine measurement (mass/volume)Ordered By: Jigna Brantley on 01-02-2025 Creatinine [Mass/Vol] 1.35 mg/dL High 0.70-1.20 [facility] Serum globulin measurementOr dered By: Jigna Brantley on 01-02-2025 Globulin (S) [Mass/Vol] 2.2 g/dL 2.2-4.2 [facility] Serum glucose measurement (m ass/volume)Ordered By: Jigna Brantley on 01-02-2025 Glucose [Mass/Vol] 95 mg/dL 70-99 [facility] Serum or plasma alanine chatterjee otransferase (ALT) measurementOrdered By: Jigna Brantley on 01-02-2025 ALT [Catalytic activity/Vol] 8 U/L <47 [facility] Serum or plasma albumin rosalina urement (mass/volume)Ordered By: Jigna Brantley on 01-02-2025 Albumin [Mass/Vol] 4.0 g/dL 3.4-4.8 [facility] Serum or plasma albumin/glob ulin mass ratioOrdered By: Jigna Brantley on 01-02-2025 Albumin/Globulin [Mass ratio] 1.8 {ratio} 0.9-2.4 [facility] Serum or plasma alkaline elvis sphatase measurementOrdered By: Jigna Brantley on 01-02-2025 ALP [Catalytic activity/Vol] 59 U/L 40-129 [facility] Serum or plasma calcium rosalina urement (mass/volume)Ordered By: Jigna Brantley on 01-02-2025 Calcium [Mass/Vol] 9.1 mg/dL 7.6-11.0 [facility] Serum or plasma urea nitroge n measurement (mass/volume)Ordered By: Jigna Brantley on 01-02-2025 Urea nitrogen [Mass/Vol] 29 mg/dL High 4-19 [facility] Serum or plasma valproate me asurement (mass/volume)Ordered By: Jigna Brantley on 01-02-2025 Valproate [Mass/Vol] 73 ug/mL 50-100 [facility] Comment on above: Valproic Acid concen trations >100 ug/mL are potentially toxic. Sodium levelOrdered By: Enoch Brantley on 01-02-2025 Sodium [Moles/Vol] 143 mmol/L 133-145 [facility] Total proteinOrdered By: Vamshi Brantley on 01-02-2025 Protein [Mass/Vol] 6.2 g/dL 5.9-8.4 [facility] Valproic Acid (Depakene) Lev cecil 01-02-2025 VALPROIC ACID 73 ug/mL Normal 50-100 [facility] Comment on above: Order Comment: 133 Result Comment: Valp roic Acid concentrations >100 ug/mL are potentially toxic. Performed By: #### L 100.0500, L501.8100, L500.4050 ####[facility] [address] [place], [address] White blood cell (WBC) count Ordered By: Jigna Brantley on 01-02-2025 WBC (Bld) [#/Vol] 7.4 10*3/uL 4.4-11.0 [facility] Serum or plasma phenytoin me asurement (mass/volume)Ordered By: Jigna Brantley on 11-27-2024 Phenytoin [Mass/Vol] 1.0 ug/mL Low 10.0-20.0 [facility] Comment on above: Toxic signs are seld om seen below 15 ug/mL, while nystagmus often appears when serum levels rise above 20 ug/mL. Ataxia is observed most often when serum levels reach 25 to 30 ug/mL and somnolence and dysarthria above 40 ug/mL. At high doses, phenytoin can even cause an increase in the frequency of seizures. Order Comment: COLLE CTOR TO SPECIFY Result Comment: Toxi c signs are seldom seen below 15 ug/mL, while nystagmus often appears when serum levels rise above 20 ug/mL. Ataxia is observed most often when serum levels reach 25 to 30 ug/mL and somnolence and dysarthria above 40 ug/mL. At high doses, phenytoin can even cause an increase in the frequency of seizures. Performed By: #### L 400.0001 #### [facility] [address] [facility] [place], [place], [address] [id number] 11-08-2024 [facility]. COMMENT Normal . [facility] Comment on above: Order Comment: [id number] Result Comment: Test Ordered: [id number] Diltiazem(Cardizem,Dilacor) S Diltiazem <20 [L ] ng/ml MX Reference Range: 50 - 200 Note: Analysis performed on a micro-specimen. This test was developed and its performance characteristics determined by [employer]. It has not been cleared or approved by the Food and Drug Administration. Performed at: [facility] [address] [id number] Warp Coiler: Carly Azar [facility], Phone: [phone] Performed at: - [address] [id number] Warp Coiler: Enrico Berg PhD, Phone: [phone] Performed By: #### L [id number] #### [facility] [address] [facility]. [place], [place], [address] [id number] 10-30-2024 [facility] Mis. COMMENT Normal . [facility] Comment on above: Order Comment: [id number], Serum or Plasma Result Comment: Test Ordered: [id number] Diltiazem(Cardizem,Dilacor) S Diltiazem ng/ml MX Reference Range: . Test not performed Initial assay failure. Insufficient specimen volume to repeat analysis. Performed at: [facility] [employer] [address] [place] [id number] Warp Coiler: Carly Azar [facility], Phone: [phone] Performed at: [place] [address] [id number] Warp Coiler: Enrico Berg PhD, Phone: [phone] Performed By: #### L 501.080 #### [facility] [address] [place] [address], [id number] [facility] 10-25-2024 [facility] Telephone ([facility]) REINA SULLIVAN ([id number]) 1955 M Date Time Provider Department 10/25/24 ARIC ZAPIEN [facility] During your visit today, [...] unspecified na*09/30/2022 Left atrial enlargement [I51.7] 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 CBC W/Diff, Automatedon 05- Absolute Lymph 2.10 X10 3/uL Normal 0.83-4.51 [facility] Comment on above: Order Comment: 133 Performed By: #### L 501.080 #### [facility] [address] [place], [address] Absolute Neut 3.2 X10 3/uL Normal 2.0-7.7 [facility] Comment on above: Order Comment: 133 Performed By: #### L 501.080 #### [facility] [address] [place], [address] Basophils/100 WBC (Bld) 0.6 % Normal 0-1 [facility] Comment on above: Order Comment: 133 Performed By: #### L 501.080 #### [facility] [address] [place], [address] Eosinophils/100 WBC (Bld) 5.3 % High 0-5 [facility] Comment on above: Order Comment: 133 Performed By: #### L 501.080 #### [facility] [address] [place], [address] Erythrocyte distribution width (RBC) [Ratio] 15.0 % High 11.6-14.6 [facility] Comment on above: Order Comment: 133 Performed By: #### L 501.080 #### [facility] [address] [place], [address] Hematocrit (Bld) [Volume fraction] 42.2 % Normal 40-54 [facility] Comment on above: Order Comment: 133 Performed By: #### L 501.080 #### [facility] [address] [place], [address] Hemoglobin (Bld) [Mass/Vol] 13.7 g/dL Normal 13.0-16.5 [facility] Comment on above: Order Comment: 133 Performed By: #### L 501.080 #### [facility] [address] [place], [address] IG% 0.500 Normal 0.0-0.9 [facility] Comment on above: Order Comment: 133 Result Comment: IG% - Immature Granulocytes (promyelocytes, myelocytes and metamyelocytes) > 1% indicates that a LEFT SHIFT is Present. Performed By: #### L 501.080 #### [facility] [address] [place], [address] Lymphocytes/100 WBC (Bld) 33.4 % Normal 19-41 [facility] Comment on above: Order Comment: 133 Performed By: #### L 501.080 #### [facility] [address] [place], [address] MCH (RBC) [Entitic mass] 30.7 pg Normal 27.0-32.0 [facility] Comment on above: Order Comment: 133 Performed By: #### L 501.080 #### [facility] [address] [place], [address] MCHC (RBC) [Mass/Vol] 32.5 g/dL Normal 32-36 [facility] Comment on above: Order Comment: 133 Performed By: #### L 501.080 #### [facility] [address] [place], [address] MCV (RBC) [Entitic vol] 94.6 fL High 80-94 [facility] Comment on above: Order Comment: 133 Performed By: #### L 501.080 #### [facility] [address] [place], [address] Monocytes/100 WBC (Bld) 9.4 % Normal 0-10 [facility] Comment on above: Order Comment: 133 Performed By: #### L [id number] #### [facility] [address] [place], [address] Neutrophils/100 WBC (Bld) 50.8 % Normal 47-70 [facility] Comment on above: Order Comment: 133 Performed By: #### L [id number] #### [facility] [address] [place], [address] Nucleated RBC (Bld) [#/Vol] 0 10*3/uL Normal 0-5 [facility] Comment on above: Order Comment: 133 Performed By: #### L 501.080 #### [facility] [address] [place], [address] Platelet mean volume (Bld) [Entitic vol] 10.9 fL Normal 6.2-12.0 [facility] Comment on above: Order Comment: 133 Performed By: #### L 501.080 #### [facility] [address] [place], [address] Platelets (Bld) [#/Vol] 236 10*3/uL Normal 150-450 [facility] Comment on above: Order Comment: 133 Performed By: #### L [id number] #### [facility] [address] [place], [address] RBC (Bld) [#/Vol] 4.46 10*6/uL Low 4.6-6.2 [facility] Comment on above: Order Comment: 133 Performed By: #### L 501.080 #### [facility] [address] [place], [address] RDW SD 52.3 fl High 35.1-43.9 [facility] Comment on above: Order Comment: 133 Performed By: #### L [id number] #### [facility] [address] [place], [address] WBC (Bld) [#/Vol] 6.3 10*3/uL Normal 4.4-11.0 [facility] Comment on above: Order Comment: 133 Performed By: #### L [id number] #### [facility] [address] [place], [address] Comprehensive Metabolic Prof [facility] 10-23-2024 Albumin [Mass/Vol] 4.2 g/dL Normal 3.4-4.8 [facility] Comment on above: Order Comment: 133 Performed By: #### L 501.080 #### [facility] [address] [place], [address] Albumin/Globulin [Mass ratio] 1.7 {ratio} Normal 0.9-2.4 [facility] Comment on above: Order Comment: 133 Performed By: #### L 501.080 #### [facility] [address] [place], [address] ALK PHOS 63 U/L Normal 40-129 [facility] Comment on above: Order Comment: 133 Performed By: #### L [id number] #### [facility] [address] [place], [address] ALT [Catalytic activity/Vol] 13 U/L Normal <=46 [facility] Comment on above: Order Comment: 133 Performed By: #### L [id number] #### [facility] [address] [place], [address] AST [Catalytic activity/Vol] 16 U/L Normal <=37 [facility] Comment on above: Order Comment: 133 Performed By: #### L [id number] #### [facility] [address] [place], [address] Bilirubin [Mass/Vol] 0.30 mg/dL Normal 0.00-1.30 [facility] Comment on above: Order Comment: 133 Performed By: #### L [id number] #### [facility] [address] [place], [address] BUN/CRE 18.7 RATIO Normal 10-20 [facility] Comment on above: Order Comment: 133 Performed By: #### L [id number] #### [facility] [address] [place], [address] Calcium [Mass/Vol] 9.4 mg/dL Normal 7.6-11.0 [facility] Comment on above: Order Comment: 133 Performed By: #### L [id number] #### [facility] [address] [place], [address] Chloride [Moles/Vol] 106 mmol/L Normal 98-108 [facility] Comment on above: Order Comment: 133 Performed By: #### L [id number] #### [facility] [address] [place], [address] CO2 [Moles/Vol] 24.9 mmol/L Normal 21.0-32.0 [facility] Comment on above: Order Comment: 133 Performed By: #### L 501.080 #### [facility] [address] [place], [address] Creatinine [Mass/Vol] 1.27 mg/dL High 0.70-1.20 [facility] Comment on above: Order Comment: 133 Performed By: #### L [id number] #### [facility] [address] [place], [address] GAP 12 Normal 5-15 [facility] Comment on above: Order Comment: 133 Performed By: #### L [id number] #### [facility] [address] [place], [address] GFR/1.73 sq M.predicted among non-blacks MDRD (S/P/Bld) [Vol rate/Area] 62 mL/min/{1.73_m2} Normal >60 [facility] Comment on above: Order Comment: 133 Result Comment: mL/m in/1.73m2 CKD-EPI Creatinine Equation (2020) Performed By: #### L [id number] #### [facility] [address] [place], [address] Globulin (S) [Mass/Vol] 2.4 g/dL Normal 2.2-4.2 [facility] Comment on above: Order Comment: 133 Performed By: #### L [id number] #### [facility] [address] [place], [address] Glucose [Mass/Vol] 97 mg/dL Normal 70-99 [facility] Comment on above: Order Comment: 133 Performed By: #### L [id number] #### [facility] [address] [place], [address] Potassium [Moles/Vol] 4.4 mmol/L Normal 3.3-5.1 [facility] Comment on above: Order Comment: 133 Performed By: #### L 501.080 #### [facility] [address] [place], [address] Sodium [Moles/Vol] 143 mmol/L Normal 133-145 [facility] Comment on above: Order Comment: 133 Performed By: #### L [id number] #### [facility] [address] [place], [address] T PROT 6.7 g/dL Normal 5.9-8.4 [facility] Comment on above: Order Comment: 133 Performed By: #### L 501.080 #### [facility] [address] [place], [address] Urea nitrogen [Mass/Vol] 24 mg/dL High 4-19 [facility] Comment on above: Order Comment: 133 Performed By: #### L 501.080 #### [facility] [address] [place], [address] Hemoglobin A1con 10-23-2024 HbA1c (Bld) [Mass fraction] 6.2 % High <=5.6 [facility] Comment on above: Order Comment: 133 Result Comment: Norm al < 5.7 % Prediabetic 5.7 - 6.4 % Diabetic >or= 6.5 % Please note range changes. Performed By: #### L 501.080 #### [facility] [address] [place], [address] Magnesiumon 10-23-2024 Magnesium [Mass/Vol] 2.4 mg/dL High 1.5-2.2 [facility] Comment on above: Order Comment: 133 Performed By: #### L 501.080 #### [facility] [address] [place], [address] Valproic Acid (Depakene) Lev cecil 10-23-2024 VALPROIC ACID 75 ug/mL Normal 50-100 [facility] Comment on above: Order Comment: 133 Result Comment: Valp roic Acid concentrations >100 ug/mL are potentially toxic. Performed By: #### L 501.080 #### [facility] [address] [place], [address] Anion gap in Serum or Plasma Ordered By: Jigna Brantley on 09-26-2024 Anion gap [Moles/Vol] 12 mmol/L 5-15 [facility] BUN/creatinine ratioOrdered By: Jigna Brantley on 09-26-2024 Urea nitrogen/Creatinine [Mass ratio] 24.2 mg/mg High - [facility] Basic Metabolic Profile (BMP )on 09-26-2024 BUN/CRE 24.2 RATIO High 03-18 [facility] Comment on above: Order Comment: 206 Performed By: #### L [id number], L500.2500, L100.0100, L501.5200 #### [facility] [address] [place], [address] Calcium [Mass/Vol] 9.8 mg/dL Normal 7.6-11.0 [facility] Comment on above: Order Comment: 206 Performed By: #### L [id number], L500.2500, L100.0100, L501.5200 #### [facility] [address] [place], [address] Chloride [Moles/Vol] 103 mmol/L Normal 98-108 [facility] Comment on above: Order Comment: 206 Performed By: #### L [id number], L500.2500, L100.0100, L501.5200 #### [facility] [address] [place], [address] CO2 [Moles/Vol] 26.1 mmol/L Normal 21.0-32.0 [facility] Comment on above: Order Comment: 206 Performed By: #### L [id number], L500.2500, L100.0100, L501.5200 #### [facility] [address] [place], [address] Creatinine [Mass/Vol] 1.46 mg/dL High 0.70-1.20 [facility] Comment on above: Order Comment: 206 Performed By: #### L [id number], L500.2500, L100.0100, L501.5200 #### [facility] [address] [place], [address] GAP 12 Normal 5-15 [facility] Comment on above: Order Comment: 206 Performed By: #### L [id number], L500.2500, L100.0100, L501.5200 #### [facility] [address] [place], [address] GFR/1.73 sq M.predicted among non-blacks MDRD (S/P/Bld) [Vol rate/Area] 52 mL/min/{1.73_m2} Low >60 [facility] Comment on above: Order Comment: 206 Result Comment: mL/m in/1.73m2 CKD-EPI Creatinine Equation (2020) Performed By: #### L [id number], L500.2500, L100.0100, L501.5200 #### [facility] [address] [place], [address] Glucose [Mass/Vol] 98 mg/dL Normal 70-99 [facility] Comment on above: Order Comment: 206 Performed By: #### L [id number], L500.2500, L100.0100, L501.5200 #### [facility] [address] [place], [address] Potassium [Moles/Vol] 4.5 mmol/L Normal 3.3-5.1 [facility] Comment on above: Order Comment: 206 Performed By: #### L 501.8100, L500.2500, L100.0100, L501.5200 #### [facility] [address] [place], [address] Sodium [Moles/Vol] 141 mmol/L Normal 133-145 [facility] Comment on above: Order Comment: 206 Performed By: #### L [id number], L500.2500, L100.0100, L501.5200 #### [facility] [address] [place], [address] Urea nitrogen [Mass/Vol] 35 mg/dL High 4-19 [facility] Comment on above: Order Comment: 206 Performed By: #### L [id number], L500.2500, L100.0100, L501.5200 #### [facility] [address] [place], [place], [id number] Carbon dioxide, total [Moles /volume] in Central venous bloodOrdered By: Jigna Brantley on 09-26-2024 CO2 [Moles/Vol] 26.1 mmol/L 21.0-32.0 [facility] Chloride assayOrdered By: Fabricio Brantley on 09-26-2024 Chloride [Moles/Vol] 103 mmol/L 98-108 [facility] Glomerular filtration rate ( GFR) estimation/1.73 sq m using serum, plasma, or whole bOrdered By: Jigna Brantley on 09-26-2024 GFR/1.73 sq M.predicted among non-blacks MDRD (S/P/Bld) [Vol rate/Area] 52 mL/min/{1.73_m2} Low >60 [facility] Comment on above: mL/min/1.73m2 CKD-EP I Creatinine Equation (2020) Magnesiumon 09-26-2024 Magnesium [Mass/Vol] 2.4 mg/dL High 1.5-2.2 [facility] Comment on above: Order Comment: 206 Performed By: #### L 501.8100, L500.2500, L100.0100, L501.5200 #### [facility] [address] [place], [place], [address] Magnesium measurement (mass/ volume)Ordered By: Jigna Brantley on 09-26-2024 Magnesium (Unsp spec) [Mass/Vol] 2.4 mg/dL High 1.5-2.2 [facility] Potassium measurement (mass/ volume)Ordered By: Jigna Brantley on 09-26-2024 Potassium (Unsp spec) [Mass/Vol] 4.5 mmol/L 3.3-5.1 [facility] Serum creatinine measurement (mass/volume)Ordered By: Jigna Brantley on 09-26-2024 Creatinine [Mass/Vol] 1.46 mg/dL High 0.70-1.20 [facility] Serum glucose measurement (m ass/volume)Ordered By: Jigna Brantley on 09-26-2024 Glucose [Mass/Vol] 98 mg/dL 70-99 [facility] Serum or plasma calcium rosalina urement (mass/volume)Ordered By: Jigna Brantley on 09-26-2024 Calcium [Mass/Vol] 9.8 mg/dL 7.6-11.0 [facility] Serum or plasma urea nitroge n measurement (mass/volume)Ordered By: Jigna Brantley on 09-26-2024 Urea nitrogen [Mass/Vol] 35 mg/dL High 4-19 [facility] Sodium levelOrdered By: Enoch Brantley on 09-26-2024 Sodium [Moles/Vol] 141 mmol/L 133-145 [facility] CRPon 08-27-2024 C-REACTIVE PROT 37.80 mg/L High 0.0-3.0 [facility] Comment on above: Order Comment: COLLE CTOR TO SPECIFY Performed By: #### L 400.0001 #### [facility] [address] [place], [place] [address], [address] CRP [Mass/Vol]Ordered By: Fabricio Brantley on 08-27-2024 C-Reactive Protein Extended Range 37.80 mg/L High 0.0-3.0 [facility] Serum or plasma C reactive p rotein measurement (mass/volume)Ordered By: Jigna Brantley on 08-27-2024 CRP [Mass/Vol] 37.80 mg/L High 0.0-3.0 [facility] Serum or plasma uric acid me asurement (mass/volume)Ordered By: Jigna Brantley on 08-27-2024 Urate [Mass/Vol] 7.6 mg/dL High 3.5-7.2 [facility] Comment on above: The drugs N-Acetylcy steine and Metamizole may falsely depress this assay. Uric Acidon 08-27-2024 URIC 7.6 mg/dL High 3.5-7.2 [facility] Comment on above: Order Comment: COLLE CTOR TO SPECIFY Result Comment: The drugs N-Acetylcysteine and Metamizole may falsely depress this assay. Performed By: #### L 400.0001 #### [facility] [address] [place], [address] Absolute lymphocyte countOrd ered By: Jigna Brantley on 07-23-2024 Lymphocytes Auto (Unsp spec) [#/Vol] 3.24 10*3/uL 0.83-4.51 [facility] Absolute neutrophil countOrd ered By: Jignabailey Brantley on 07-23-2024 Neutrophils (Bld) [#/Vol] 5.5 10*3/uL 2.0-7.7 [facility] Automated lymphocyte count a s percentage of total leukocytesOrdered By: Jigna Brantley on 07-23-2024 Lymphocytes/100 WBC Auto (Unsp spec) 33.6 % 19-41 [facility] Basic Metabolic Profile (BMP )on 07-23-2024 BUN/CRE 16.1 RATIO Normal 10-20 [facility] Comment on above: Order Comment: 206.1 Performed By: #### L [id number] #### [facility] [address] [place], [address] CA,Total 8.6 mg/dL Normal 8.5-10.1 [facility] Comment on above: Order Comment: 206.1 Performed By: #### L [id number] #### [facility] [address] [place], [address] Chloride [Moles/Vol] 102 mmol/L Normal 98-107 [facility] Comment on above: Order Comment: 206.1 Performed By: #### L [id number] #### [facility] [address] [place], [address] CO2 [Moles/Vol] 31.0 mmol/L Normal 21.0-32.0 [facility] Comment on above: Order Comment: 206.1 Performed By: #### L [id number] #### [facility] [address] [place], [address] Creatinine [Mass/Vol] 1.37 mg/dL High 0.70-1.30 [facility] Comment on above: Order Comment: 206.1 Result Comment: The validity of the calculated GFR GFRAA in patients over 70 years has not been determined. Clinical correlation is essential. Performed By: #### L [id number] #### [facility] [address] [place], [address] EST GFR - AA 67 mL/min Normal >60 [facility] Comment on above: Order Comment: 206.1 Result Comment: Afri can [place] Citizen GFR Calc Performed By: #### L [id number] #### [facility] [address] [place], [address] GAP 5 Normal 5-15 [facility] Comment on above: Order Comment: 206.1 Performed By: #### L [id number] #### [facility] [address] [place], [address] GFR/1.73 sq M.predicted among non-blacks MDRD (S/P/Bld) [Vol rate/Area] 55 mL/min/{1.73_m2} Low >60 [facility] Comment on above: Order Comment: 206.1 Result Comment: Non- GFR Calc Performed By: #### L [id number] #### [facility] [address] [place], [address] Glucose [Mass/Vol] 92 mg/dL Normal 74-106 [facility] Comment on above: Order Comment: 206.1 Performed By: #### L [id number] #### [facility] [address] [place], [address] Potassium [Moles/Vol] 4.1 mmol/L Normal 3.5-5.1 [facility] Comment on above: Order Comment: 206.1 Performed By: #### L [id number] #### [facility] [address] [place], [address] Sodium [Moles/Vol] 138 mmol/L Normal 136-145 [facility] Comment on above: Order Comment: 206.1 Performed By: #### L [id number] #### [facility] [address] [place], [address] Urea nitrogen [Mass/Vol] 22 mg/dL High 7-18 [facility] Comment on above: Order Comment: 206.1 Performed By: #### L [id number] #### [facility] [address] [place], [address] Basophil percentageOrdered B y: Jigna Brantley on 07-23-2024 Basophils/100 WBC (Bld) 0.5 % 0-1 [facility] Blood urea nitrogen (BUN)/cr eatinine ratioOrdered By: Jigna Brantley on 07-23-2024 Urea nitrogen/Creatinine [Mass ratio] 16.1 mg/mg 10-20 [facility] CBC W/Diff, Automatedon 07-01 Absolute Lymph 3.24 X10 3/uL Normal 0.83-4.51 [facility] Comment on above: Order Comment: .1 Performed By: #### L [id number] #### [facility] [address] [place], [address] Absolute Neut 5.5 X10 3/uL Normal 2.0-7.7 [facility] Comment on above: Order Comment: 206.1 Performed By: #### L [id number] #### [facility] [address] [place], [address] Basophils/100 WBC (Bld) 0.5 % Normal 0-1 [facility] Comment on above: Order Comment: 206.1 Performed By: #### L [id number] #### [facility] [address], [address] Eosinophils/100 WBC (Bld) 0.6 % Normal 0-5 [facility] Comment on above: Order Comment: 206.1 Performed By: #### L [id number] #### [facility] [address] [place], [address] Erythrocyte distribution width (RBC) [Ratio] 14.1 % Normal 11.6-14.6 [facility] Comment on above: Order Comment: .1 Performed By: #### L [id number] #### [facility] [address] [place], [address] Hematocrit (Bld) [Volume fraction] 43.3 % Normal 40-54 [facility] Comment on above: Order Comment: . Performed By: #### L [id number] #### [facility] [address] [place], [address] Hemoglobin (Bld) [Mass/Vol] 13.9 g/dL Normal 13.0-16.5 [facility] Comment on above: Order Comment: .1 Performed By: #### L [id number] #### [facility] [address] [place], [address] IG% 0.600 Normal 0.0-0.9 [facility] Comment on above: Order Comment: .1 Result Comment: IG% - Immature Granulocytes (promyelocytes, myelocytes and metamyelocytes) > 1% indicates that a LEFT SHIFT is Present. Performed By: #### L [id number] #### [facility] [address] [place], [address] Lymphocytes/100 WBC (Bld) 33.6 % Normal 19-41 [facility] Comment on above: Order Comment: .1 Performed By: #### L [id number] #### [facility] [address] [place], [address] MCH (RBC) [Entitic mass] 30.3 pg Normal 27.0-32.0 [facility] Comment on above: Order Comment: 206.1 Performed By: #### L [id number] #### [facility] [address] [place], [address] MCHC (RBC) [Mass/Vol] 32.1 g/dL Normal 32-36 [facility] Comment on above: Order Comment: 206.1 Performed By: #### L [id number] #### [facility] [address] [place], [address] MCV (RBC) [Entitic vol] 94.3 fL High 80-94 [facility] Comment on above: Order Comment: 206.1 Performed By: #### L [id number] #### [facility] [address] [place], [address] Monocytes/100 WBC (Bld) 7.2 % Normal 0-10 [facility] Comment on above: Order Comment: 206.1 Performed By: #### L [id number] #### [facility] [address] [place], [address] Neutrophils/100 WBC (Bld) 57.5 % Normal 47-70 [facility] Comment on above: Order Comment: 206.1 Performed By: #### L [id number] #### [facility] [address] [place], [address] Nucleated RBC (Bld) [#/Vol] 0 10*3/uL Normal 0-5 [facility] Comment on above: Order Comment: 206.1 Performed By: #### L [id number] #### [facility] [address] [place], [address] Platelet mean volume (Bld) [Entitic vol] 11.2 fL Normal 6.2-12.0 [facility] Comment on above: Order Comment: 206.1 Performed By: #### L [id number] #### [facility] [address] [place], [address] Platelets (Bld) [#/Vol] 320 10*3/uL Normal 150-450 [facility] Comment on above: Order Comment: 206. Performed By: #### L [id number] #### [facility] [address] [place], [address] RBC (Bld) [#/Vol] 4.59 10*6/uL Low 4.6-6.2 [facility] Comment on above: Order Comment: 206.1 Performed By: #### L [id number] #### [facility] [address] [place], [address] RDW SD 48.2 fl High 35.1-43.9 [facility] Comment on above: Order Comment: . Performed By: #### L [id number] #### [facility] [address] [place], [address] WBC (Bld) [#/Vol] 9.6 10*3/uL Normal 4.4-11.0 [facility] Comment on above: Order Comment: 206. Performed By: #### L [id number] #### [facility] [address] [place], [address] Carbon dioxide measurementOr dered By: Jigna Brantley on 07-23-2024 CO2 [Moles/Vol] 31.0 mmol/L 21.0-32.0 [facility] Chloride measurementOrdered By: Jigna Brantley on 07-23-2024 Chloride [Moles/Vol] 102 mmol/L 98-107 [facility] Eosinophil percentageOrdered By: Jigna Brantley on 07-23-2024 Eosinophils/100 WBC (Bld) 0.6 % 0-5 [facility] Erythrocyte distribution wid th (RBC) [Ratio]Ordered By: Jigna Brantley on 07-23-2024 Erythrocyte distribution width (RBC) [Entitic vol] 48.2 fL High 35.1-43.9 [facility] Erythrocyte distribution wid th ratioOrdered By: Jigna Brantley on 07-23-2024 Erythrocyte distribution width (RBC) [Ratio] 14.1 % 11.6-14.6 [facility] Erythrocyte distribution wid th standard deviationOrdered By: Jigna Brantley on 07-23-2024 Erythrocyte distribution width (RBC) [Ratio] 48.2 fl High 35.1-43.9 [facility] Estimated glomerular filtrat ion rate (GFR) AmericanOrdered By: Jigna Brantley on 07-23-2024 Estimated GFR (MDRD) Amer 67 mL/min >60 [facility] Comment on above: GFR Calc Glomerular filtration rate ( GFR) estimationOrdered By: Jigna Brantley on 07-23-2024 Estimated GFR (MDRD) Non-Af Amer 55 mL/min Low >60 [facility] Comment on above: Non- GFR Calc GFR/1.73 sq M.predicted among non-blacks MDRD (S/P/Bld) [Vol rate/Area] 55 mL/min/{1.73_m2} Low >60 [facility] Comment on above: Non- GFR Calc Glucose measurementOrdered B y: Jigna Brantley on 07-23-2024 Glucose [Mass/Vol] 92 mg/dL 74-106 [facility] Hematocrit Auto (Bld) [Volum e fraction]Ordered By: Jigna Brantley on 07-23-2024 Hematocrit (Bld) [Volume fraction] 43.3 % 40-54 [facility] Hemoglobin measurementOrdere d By: Jigna Brantley on 07-23-2024 Hemoglobin (Bld) [Mass/Vol] 13.9 g/dL 13.0-16.5 [facility] Immature granulocytes/100 WB C Auto (Bld)Ordered By: Jigna Brantley on 07-23-2024 Immature granulocytes/100 WBC (Bld) 0.600 % 0.0-0.9 [facility] Comment on above: IG% - Immature Granu locytes (promyelocytes, myelocytes and metamyelocytes) > 1% indicates that a LEFT SHIFT is Present. Lymphocytes Auto (Unsp spec) [#/Vol]Ordered By: Jigna Brantley on 07-23-2024 Lymphocytes (Bld) [#/Vol] 3.24 10*3/uL 0.83-4.51 [facility] Lymphocytes/100 WBC Auto (Un sp spec)Ordered By: Jigna Brantley on 07-23-2024 Lymphocytes/100 WBC (Bld) 33.6 % 19-41 [facility] MCV (mean corpuscular volume ) determinationOrdered By: Jigna Brantley on 07-23-2024 MCV (RBC) [Entitic vol] 94.3 fL High 80-94 [facility] Magnesiumon 07-23-2024 Magnesium [Mass/Vol] 2.5 mg/dL Normal 1.6-2.6 [facility] Comment on above: Order Comment: 206.1 Performed By: #### L [id number] #### [facility] [address] [place], [place] [address], [address] Magnesium measurementOrdered By: Jigna Brantley on 07-23-2024 Magnesium [Mass/Vol] 2.5 mg/dL 1.6-2.6 [facility] Mean corpuscular hemoglobin (MCH) determinationOrdered By: Jigna Brantley on 07-23-2024 MCH (RBC) [Entitic mass] 30.3 pg 27.0-32.0 [facility] Mean corpuscular hemoglobin concentration (MCHC) determinationOrdered By: Jigna Branltey on 07-23-2024 MCHC (RBC) [Mass/Vol] 32.1 g/dL 32-36 [facility] Mean platelet volume determi nationOrdered By: Jigna Brantley on 07-23-2024 Platelet mean volume (Bld) [Entitic vol] 11.2 fL 6.2-12.0 [facility] Monocyte percentageOrdered B y: Jigna Brantley on 07-23-2024 Monocytes/100 WBC (Bld) 7.2 % 0-10 [facility] Neutrophil percentageOrdered By: Jigna Brantley on 07-23-2024 Neutrophils/100 WBC (Bld) 57.5 % 47-70 [facility] Nucleated red blood cell per centageOrdered By: Jigna Brantley on 07-23-2024 Nucleated RBC/100 WBC (Bld) [Ratio] 0 % 0-5 [facility] Platelet countOrdered By: Fabricio Brantley on 07-23-2024 Platelets (Bld) [#/Vol] 320 10*3/uL 150-450 [facility] Potassium measurementOrdered By: Jigna Brantley on 07-23-2024 Potassium [Moles/Vol] 4.1 mmol/L 3.5-5.1 [facility] RBC Auto (Bld) [#/Vol]Ordere d By: Jigna Brantley on 07-23-2024 RBC (Bld) [#/Vol] 4.59 10*6/uL Low 4.6-6.2 [facility] Serum anion gap measurementO rdered By: Jigna Brantley on 07-23-2024 Anion gap [Moles/Vol] 5 mmol/L 5-15 [facility] Serum or plasma calcium rosalina urement (mass/volume)Ordered By: Jigna Brantley on 07-23-2024 Calcium [Mass/Vol] 8.6 mg/dL 8.5-10.1 [facility] Serum or plasma creatinine m easurement (mass/volume)Ordered By: Jigna Brantley on 07-23-2024 Creatinine [Mass/Vol] 1.37 mg/dL High 0.70-1.30 [facility] Comment on above: The validity of the calculated GFR & GFRAA in patients over 70 years has not been determined. Clinical correlation is essential. Serum or plasma urea nitroge n measurement (mass/volume)Ordered By: Jigna Brantley on 07-23-2024 Urea nitrogen [Mass/Vol] 22 mg/dL High 7-18 [facility] Sodium levelOrdered By: Enoch Brantley on 07-23-2024 Sodium [Moles/Vol] 138 mmol/L 136-145 [facility] White blood cell (WBC) count Ordered By: Jigna Brantley on 02-24-2025 WBC (Bld) [#/Vol] 9.6 10*3/uL 4.4-11.0 [facility] Absolute lymphocyte countOrd ered By: Jigna Brantley on 07-16-2024 Lymphocytes Auto (Unsp spec) [#/Vol] 1.83 10*3/uL 0.83-4.51 [facility] Absolute neutrophil countOrd ered By: Jigna Brantley on 07-16-2024 Neutrophils (Bld) [#/Vol] 7.9 10*3/uL High 2.0-7.7 [facility] Automated lymphocyte count a s percentage of total leukocytesOrdered By: Jigna Brantley on 07-16-2024 Lymphocytes/100 WBC Auto (Unsp spec) 17.2 % Low 19-41 [facility] Basic Metabolic Profile (BMP )on 07-16-2024 BUN/CRE 18.8 RATIO Normal 10-20 [facility] Comment on above: Order Comment: 206 Performed By: #### L [id number], L500.2500, L100.0100, L501.5200 #### [facility] [address] [place], [address] CA,Total 9.3 mg/dL Normal 8.5-10.1 [facility] Comment on above: Order Comment: 206 Performed By: #### L [id number], L500.2500, L100.0100, L501.5200 #### [facility] [address] [place], [address] Chloride [Moles/Vol] 103 mmol/L Normal 98-107 [facility] Comment on above: Order Comment: 206 Performed By: #### L [id number], L500.2500, L100.0100, L501.5200 #### [facility] [address] [place], [address] CO2 [Moles/Vol] 27.0 mmol/L Normal 21.0-32.0 [facility] Comment on above: Order Comment: 206 Performed By: #### L [id number], L500.2500, L100.0100, L501.5200 #### [facility] [address] [place], [address] Creatinine [Mass/Vol] 1.17 mg/dL Normal 0.70-1.30 [facility] Comment on above: Order Comment: 206 Result Comment: The validity of the calculated GFR GFRAA in patients over 70 years has not been determined. Clinical correlation is essential. Performed By: #### L [id number], L500.2500, L100.0100, L501.5200 #### [facility] [address] [place], [address] EST GFR - AA 80 mL/min Normal >60 [facility] Comment on above: Order Comment: 206 Result Comment: Afri can [place] Citizen GFR Calc Performed By: #### L [id number], L500.2500, L100.0100, L501.5200 #### [facility] [address] [place], [address] GAP 9 Normal 5-15 [facility] Comment on above: Order Comment: 206 Performed By: #### L [id number], L500.2500, L100.0100, L501.5200 #### [facility] [address] [place], [address] GFR/1.73 sq M.predicted among non-blacks MDRD (S/P/Bld) [Vol rate/Area] 66 mL/min/{1.73_m2} Normal >60 [facility] Comment on above: Order Comment: 206 Result Comment: Non- GFR Calc Performed By: #### L [id number], L500.2500, L100.0100, L501.5200 #### [facility] [address] [place], [address] Glucose [Mass/Vol] 94 mg/dL Normal 74-106 [facility] Comment on above: Order Comment: 206 Performed By: #### L [id number], L500.2500, L100.0100, L501.5200 #### [facility] [address] [place], [address] Potassium [Moles/Vol] 3.6 mmol/L Normal 3.5-5.1 [facility] Comment on above: Order Comment: 206 Performed By: #### L [id number], L500.2500, L100.0100, L501.5200 #### [facility] [address] [place], [address] Sodium [Moles/Vol] 139 mmol/L Normal 136-145 [facility] Comment on above: Order Comment: 206 Performed By: #### L [id number], L500.2500, L100.0100, L501.5200 #### [facility] [address] [place], [address] Urea nitrogen [Mass/Vol] 22 mg/dL High - [facility] Comment on above: Order Comment: 206 Performed By: #### L [id number], L500.2500, L100.0100, L501.5200 #### [facility] [address] [place], [address] Basophil percentageOrdered B y: Jigna Brantley on 07-16-2024 Basophils/100 WBC (Bld) 0.1 % 0-1 [facility] Blood urea nitrogen (BUN)/cr eatinine ratioOrdered By: Jigna Brantley on 07-16-2024 Urea nitrogen/Creatinine [Mass ratio] 18.8 mg/mg 10-20 [facility] CBC W/Diff, Automatedon 06-30 Absolute Lymph 1.83 X10 3/uL Normal 0.83-4.51 [facility] Comment on above: Order Comment: 206 Performed By: #### L [id number], L500.2500, L100.0100, L501.5200 #### [facility] [address] [place], [address] Absolute Neut 7.9 X10 3/uL High 2.0-7.7 [facility] Comment on above: Order Comment: 206 Performed By: #### L [id number], L500.2500, L100.0100, L501.5200 #### [facility] [address] [place], [address] Basophils/100 WBC (Bld) 0.1 % Normal 0-1 [facility] Comment on above: Order Comment: 206 Performed By: #### L [id number], L500.2500, L100.0100, L501.5200 #### [facility] [address] [place], [address] Eosinophils/100 WBC (Bld) 0.1 % Normal 0-5 [facility] Comment on above: Order Comment: 206 Performed By: #### L [id number], L500.2500, L100.0100, L501.5200 #### [facility] [address] [place], [address] Erythrocyte distribution width (RBC) [Ratio] 13.2 % Normal 11.6-14.6 [facility] Comment on above: Order Comment: 206 Performed By: #### L [id number], L500.2500, L100.0100, L501.5200 #### [facility] [address] [place], [address] Hematocrit (Bld) [Volume fraction] 41.3 % Normal 40-54 [facility] Comment on above: Order Comment: 206 Performed By: #### L [id number], L500.2500, L100.0100, L501.5200 #### [facility] [address] [place], [address] Hemoglobin (Bld) [Mass/Vol] 13.3 g/dL Normal 13.0-16.5 [facility] Comment on above: Order Comment: 206 Performed By: #### L [id number], L500.2500, L100.0100, L501.5200 #### [facility] [address] [place], [address] IG% 0.700 Normal 0.0-0.9 [facility] Comment on above: Order Comment: 206 Result Comment: IG% - Immature Granulocytes (promyelocytes, myelocytes and metamyelocytes) > 1% indicates that a LEFT SHIFT is Present. Performed By: #### L [id number], L500.2500, L100.0100, L501.5200 #### [facility] [address] [place], [address] Lymphocytes/100 WBC (Bld) 17.2 % Low 19-41 [facility] Comment on above: Order Comment: 206 Performed By: #### L [id number], L500.2500, L100.0100, L501.5200 #### [facility] [address] [place], [address] MCH (RBC) [Entitic mass] 29.7 pg Normal 27.0-32.0 [facility] Comment on above: Order Comment: 206 Performed By: #### L [id number], L500.2500, L100.0100, L501.5200 #### [facility] [address] [place], [address] MCHC (RBC) [Mass/Vol] 32.2 g/dL Normal 32-36 [facility] Comment on above: Order Comment: 206 Performed By: #### L [id number], L500.2500, L100.0100, L501.5200 #### [facility] [address] [place], [address] MCV (RBC) [Entitic vol] 92.2 fL Normal 80-94 [facility] Comment on above: Order Comment: 206 Performed By: #### L [id number], L500.2500, L100.0100, L501.5200 #### [facility] [address] [place], [address] Monocytes/100 WBC (Bld) 7.6 % Normal 0-10 [facility] Comment on above: Order Comment: 206 Performed By: #### L [id number], L500.2500, L100.0100, L501.5200 #### [facility] [address] [place], [address] Neutrophils/100 WBC (Bld) 74.3 % High 47-70 [facility] Comment on above: Order Comment: 206 Performed By: #### L [id number], L500.2500, L100.0100, L501.5200 #### [facility] [address] [place], [address] Nucleated RBC (Bld) [#/Vol] 0 10*3/uL Normal 0-5 [facility] Comment on above: Order Comment: 206 Performed By: #### L 501.8100, L500.2500, L100.0100, L501.5200 #### [facility] [address] [place], [address] Platelet mean volume (Bld) [Entitic vol] 10.4 fL Normal 6.2-12.0 [facility] Comment on above: Order Comment: 206 Performed By: #### L [id number], L500.2500, L100.0100, L501.5200 #### [facility] [address] [place], [address] Platelets (Bld) [#/Vol] 462 10*3/uL High 150-450 [facility] Comment on above: Order Comment: 206 Performed By: #### L [id number], L500.2500, L100.0100, L501.5200 #### [facility] [address] [place], [address] RBC (Bld) [#/Vol] 4.48 10*6/uL Low 4.6-6.2 [facility] Comment on above: Order Comment: 206 Performed By: #### L [id number], L500.2500, L100.0100, L501.5200 #### [facility] [address] [place], [address] RDW SD 44.1 fl High 35.1-43.9 [facility] Comment on above: Order Comment: 206 Performed By: #### L 501.8100, L500.2500, L100.0100, L501.5200 #### [facility] [address] [place], [address] WBC (Bld) [#/Vol] 10.6 10*3/uL Normal 4.4-11.0 [facility] Comment on above: Order Comment: 206 Performed By: #### L [id number], L500.2500, L100.0100, L501.5200 #### [facility] [address] [place], [address] CNPNon 07-16-2024 [facility] REINA SULLIVAN ([id number]) 1955 M Date Time Provider Department 07/16/24 [facility] During your visit today, we recorded the following information about you: Felicita Bolden MA 07/16/2024 3:30 PM Signed Patient canceled his appointment on 07/12/24 with Isa Stevenson. He was discharged from [facility] on 07/11/24 DX: AFIB RVR, debility. Called and spoke with ex- Flor, his emergency contact, and she said he is in [facility] for rehab with the hopes for [...] unspecified na*09/30/2022 Left atrial enlargement [I51.7] 09/30/2022 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 *09/30/2022 Migraine [...] FELICITA BOLDEN on 08/07/[address] [facility] Carbon dioxide measurementOr dered By: Jigna Brantley on 07-16-2024 CO2 [Moles/Vol] 27.0 mmol/L 21.0-32.0 [facility] Chloride measurementOrdered By: Jigna Brantley on 07-16-2024 Chloride [Moles/Vol] 103 mmol/L 98-107 [facility] Eosinophil percentageOrdered By: Jigna Brantley on 07-16-2024 Eosinophils/100 WBC (Bld) 0.1 % 0-5 [facility] Erythrocyte distribution wid th (RBC) [Ratio]Ordered By: Jigna Brantley on 07-16-2024 Erythrocyte distribution width (RBC) [Entitic vol] 44.1 fL High 35.1-43.9 [facility] Erythrocyte distribution wid th ratioOrdered By: Jigna Brantley on 07-16-2024 Erythrocyte distribution width (RBC) [Ratio] 13.2 % 11.6-14.6 [facility] Erythrocyte distribution wid th standard deviationOrdered By: Jigna Brantley on 07-16-2024 Erythrocyte distribution width (RBC) [Ratio] 44.1 fl High 35.1-43.9 [facility] Estimated glomerular filtrat ion rate (GFR) AmericanOrdered By: Jigna Brantley on 07-16-2024 Estimated GFR (MDRD) Amer 80 mL/min >60 [facility] Comment on above: GFR Calc Glomerular filtration rate ( GFR) estimationOrdered By: Jigna Brantley on 07-16-2024 Estimated GFR (MDRD) Non-Af Amer 66 mL/min >60 [facility] Comment on above: Non- GFR Calc GFR/1.73 sq M.predicted among non-blacks MDRD (S/P/Bld) [Vol rate/Area] 66 mL/min/{1.73_m2} >60 [facility] Comment on above: Non- GFR Calc Glucose measurementOrdered B y: Jigna Brantley on 07-16-2024 Glucose [Mass/Vol] 94 mg/dL 74-106 [facility] Hematocrit Auto (Bld) [Volum e fraction]Ordered By: Jigna Brantley on 07-16-2024 Hematocrit (Bld) [Volume fraction] 41.3 % 40-54 [facility] Hemoglobin measurementOrdere d By: Jigna Brantley on 07-16-2024 Hemoglobin (Bld) [Mass/Vol] 13.3 g/dL 13.0-16.5 [facility] Immature granulocytes/100 WB C Auto (Bld)Ordered By: Jigna Brantley on 07-16-2024 Immature granulocytes/100 WBC (Bld) 0.700 % 0.0-0.9 [facility] Comment on above: IG% - Immature Granu locytes (promyelocytes, myelocytes and metamyelocytes) > 1% indicates that a LEFT SHIFT is Present. Lymphocytes Auto (Unsp spec) [#/Vol]Ordered By: Jigna Brantley on 07-16-2024 Lymphocytes (Bld) [#/Vol] 1.83 10*3/uL 0.83-4.51 [facility] Lymphocytes/100 WBC Auto (Un sp spec)Ordered By: Jigna Brantley on 07-16-2024 Lymphocytes/100 WBC (Bld) 17.2 % Low 19-41 [facility] MCV (mean corpuscular volume ) determinationOrdered By: Jigna Brantley on 07-16-2024 MCV (RBC) [Entitic vol] 92.2 fL 80-94 [facility] Magnesiumon 07-16-2024 Magnesium [Mass/Vol] 2.7 mg/dL High 1.6-2.6 [facility] Comment on above: Order Comment: 206 Performed By: #### L [id number], L500.2500, L100.0100, L501.5200 #### [facility] [address] [place] [address]. [place], [place], [id number] Magnesium measurementOrdered By: Jigna Brantley on 07-16-2024 Magnesium [Mass/Vol] 2.7 mg/dL High 1.6-2.6 [facility] Mean corpuscular hemoglobin (MCH) determinationOrdered By: Jigna Brantley on 07-16-2024 MCH (RBC) [Entitic mass] 29.7 pg 27.0-32.0 [facility] Mean corpuscular hemoglobin concentration (MCHC) determinationOrdered By: Jigna Brantley on 07-16-2024 MCHC (RBC) [Mass/Vol] 32.2 g/dL 32-36 [facility] Mean platelet volume determi nationOrdered By: Jigna Brantley on 07-16-2024 Platelet mean volume (Bld) [Entitic vol] 10.4 fL 6.2-12.0 [facility] Monocyte percentageOrdered B y: Jigna Brantley on 07-16-2024 Monocytes/100 WBC (Bld) 7.6 % 0-10 [facility] Neutrophil percentageOrdered By: Jigna Brantley on 07-16-2024 Neutrophils/100 WBC (Bld) 74.3 % High 47-70 [facility] Nucleated red blood cell per centageOrdered By: Jigna Brantley on 07-16-2024 Nucleated RBC/100 WBC (Bld) [Ratio] 0 % 0-5 [facility] Platelet countOrdered By: Fabricio Brantley on 07-16-2024 Platelets (Bld) [#/Vol] 462 10*3/uL High 150-450 [facility] Potassium measurementOrdered By: Jigna Brantley on 07-16-2024 Potassium [Moles/Vol] 3.6 mmol/L 3.5-5.1 [facility] RBC Auto (Bld) [#/Vol]Ordere d By: Jigna Brantley on 07-16-2024 RBC (Bld) [#/Vol] 4.48 10*6/uL Low 4.6-6.2 [facility] Serum anion gap measurementO rdered By: Jigna Brantley on 07-16-2024 Anion gap [Moles/Vol] 9 mmol/L 5-15 [facility] Serum or plasma calcium rosalina urement (mass/volume)Ordered By: Jigna Brantley on 07-16-2024 Calcium [Mass/Vol] 9.3 mg/dL 8.5-10.1 [facility] Serum or plasma creatinine m easurement (mass/volume)Ordered By: Jigna Brantley on 07-16-2024 Creatinine [Mass/Vol] 1.17 mg/dL 0.70-1.30 [facility] Comment on above: The validity of the calculated GFR & GFRAA in patients over 70 years has not been determined. Clinical correlation is essential. Serum or plasma urea nitroge n measurement (mass/volume)Ordered By: Jigna Brantley on 07-16-2024 Urea nitrogen [Mass/Vol] 22 mg/dL High 7-18 [facility] Sodium levelOrdered By: Enoch Brantley on 07-16-2024 Sodium [Moles/Vol] 139 mmol/L 136-145 [facility] Valproate levelOrdered By: Keo Brantley on 07-16-2024 Valproic Acid (Depakene) Level 71 ug/mL 50-100 [facility] Valproic Acid (Depakene) Lev cecil 07-16-2024 VALPROIC ACID 71 ug/mL Normal 50-100 [facility] Comment on above: Order Comment: 206 Performed By: #### L 501.8100, L500.2500, L100.0100, L501.5200 #### [facility] [address] [place], [address] White blood cell (WBC) count Ordered By: Jigna Brantley on 07-16-2024 WBC (Bld) [#/Vol] 10.6 10*3/uL 4.4-11.0 [facility] 32-UG-Prvpayj DOrdered By: Koe Brantley on 07-12-2024 Vitamin D 25-Hydroxy 6.3 ng/mL [facility] Comment on above: Vitamin D 25(OH) Sta tus Range Deficiency <20 ng/mL (50nmol/L) Insufficiency 20 - 30 ng/mL (50 - 75 nmol/L) Sufficiency 30 - 100 ng/mL (75 - 250 nmol/L) Toxicity >100 ng/mL (>250 nmol/L) Absolute lymphocyte countOrd ered By: Jigna Brantley on 07-12-2024 Lymphocytes Auto (Unsp spec) [#/Vol] 1.79 10*3/uL 0.83-4.51 [facility] Absolute neutrophil countOrd ered By: Jigna Brantley on 07-12-2024 Neutrophils (Bld) [#/Vol] 7.6 10*3/uL 2.0-7.7 [facility] Automated lymphocyte count a s percentage of total leukocytesOrdered By: Jigna Brantley on 07-12-2024 Lymphocytes/100 WBC Auto (Unsp spec) 17.4 % Low 19-41 [facility] Basic Metabolic Profile (BMP )on 07-12-2024 BUN/CRE 21.0 RATIO High 10-20 [facility] Comment on above: Order Comment: TORI CTOR TO SPECIFY Performed By: #### L [id number] #### [facility] [address] [place], [address] CA,Total 9.6 mg/dL Normal 8.5-10.1 [facility] Comment on above: Order Comment: TORI CTOR TO SPECIFY Performed By: #### L [id number] #### [facility] [address] [place], [address] Chloride [Moles/Vol] 104 mmol/L Normal 98-107 [facility] Comment on above: Order Comment: TORI CTOR TO SPECIFY Performed By: #### L [id number] #### [facility] [address] [place], [address] CO2 [Moles/Vol] 32.0 mmol/L Normal 21.0-32.0 [facility] Comment on above: Order Comment: TORI CTOR TO SPECIFY Performed By: #### L [id number] #### [facility] [address] [place], [address] Creatinine [Mass/Vol] 1.19 mg/dL Normal 0.70-1.30 [facility] Comment on above: Order Comment: TORI CTOR TO SPECIFY Result Comment: The validity of the calculated GFR GFRAA in patients over 70 years has not been determined. Clinical correlation is essential. Performed By: #### L [id number] #### [facility] [address] [place], [address] EST GFR - AA 78 mL/min Normal >60 [facility] Comment on above: Order Comment: TORI CTOR TO SPECIFY Result Comment: Afri can [place] Citizen GFR Calc Performed By: #### L [id number] #### [facility] [address] [place], [address] GAP 5 Normal 5-15 [facility] Comment on above: Order Comment: TORI CTOR TO SPECIFY Performed By: #### L [id number] #### [facility] [address] [place], [address] GFR/1.73 sq M.predicted among non-blacks MDRD (S/P/Bld) [Vol rate/Area] 65 mL/min/{1.73_m2} Normal >60 [facility] Comment on above: Order Comment: COLLE CTOR TO SPECIFY Result Comment: Non- GFR Calc Performed By: #### L [id number] #### [facility] [address] [place], [address] Glucose [Mass/Vol] 104 mg/dL Normal 74-106 [facility] Comment on above: Order Comment: COLLE CTOR TO SPECIFY Result Comment: Fast ing Glucose result from 100 to 125 mg/dL suggests IMPAIRED HOMEOSTASIS per A.D.A. criteria. Performed By: #### L [id number] #### [facility] [address] [place], [address] Potassium [Moles/Vol] 3.8 mmol/L Normal 3.5-5.1 [facility] Comment on above: Order Comment: TORI CTOR TO SPECIFY Performed By: #### L [id number] #### [facility] [address] [place], [address] Sodium [Moles/Vol] 141 mmol/L Normal 136-145 [facility] Comment on above: Order Comment: TORI CTOR TO SPECIFY Performed By: #### L [id number] #### [facility] [address] [place], [address] Urea nitrogen [Mass/Vol] 25 mg/dL High 7-18 [facility] Comment on above: Order Comment: TORI CTOR TO SPECIFY Performed By: #### L [id number] #### [facility] [address] [place], [address] Basophil percentageOrdered B y: Jigna Brantley on 07-12-2024 Basophils/100 WBC (Bld) 0.2 % 0-1 [facility] Blood urea nitrogen (BUN)/cr eatinine ratioOrdered By: Jigna Brantley on 07-12-2024 Urea nitrogen/Creatinine [Mass ratio] 21.0 mg/mg High 10-20 [facility] CBC W/Diff, Automatedon 06-30 Absolute Lymph 1.79 X10 3/uL Normal 0.83-4.51 [facility] Comment on above: Order Comment: TORI CTOR TO SPECIFY Performed By: #### L [id number] #### [facility] [address] [place], [address] Absolute Neut 7.6 X10 3/uL Normal 2.0-7.7 [facility] Comment on above: Order Comment: TORI CTOR TO SPECIFY Performed By: #### L [id number] #### [facility] [address] [place], [address] Basophils/100 WBC (Bld) 0.2 % Normal 0-1 [facility] Comment on above: Order Comment: TORI CTOR TO SPECIFY Performed By: #### L [id number] #### [facility] [address] [place], [address] Eosinophils/100 WBC (Bld) 0.0 % Normal 0-5 [facility] Comment on above: Order Comment: TORI CTOR TO SPECIFY Performed By: #### L [id number] #### [facility] [address] [place], [address] Erythrocyte distribution width (RBC) [Ratio] 12.8 % Normal 11.6-14.6 [facility] Comment on above: Order Comment: TORI CTOR TO SPECIFY Performed By: #### L [id number] #### [facility] [address] [place], [address] Hematocrit (Bld) [Volume fraction] 41.3 % Normal 40-54 [facility] Comment on above: Order Comment: COLLE CTOR TO SPECIFY Performed By: #### L [id number] #### [facility] [address] [place], [address] Hemoglobin (Bld) [Mass/Vol] 13.2 g/dL Normal 13.0-16.5 [facility] Comment on above: Order Comment: TORI CTOR TO SPECIFY Performed By: #### L [id number] #### [facility] [address] [place], [address] IG% 0.600 Normal 0.0-0.9 [facility] Comment on above: Order Comment: TORI CTOR TO SPECIFY Result Comment: IG% - Immature Granulocytes (promyelocytes, myelocytes and metamyelocytes) > 1% indicates that a LEFT SHIFT is Present. Performed By: #### L [id number] #### [facility] [address] [place], [address] Lymphocytes/100 WBC (Bld) 17.4 % Low 19-41 [facility] Comment on above: Order Comment: TORI CTOR TO SPECIFY Performed By: #### L [id number] #### [facility] [address] [place], [address] MCH (RBC) [Entitic mass] 29.9 pg Normal 27.0-32.0 [facility] Comment on above: Order Comment: TORI CTOR TO SPECIFY Performed By: #### L [id number] #### [facility] [address] [place], [address] MCHC (RBC) [Mass/Vol] 32.0 g/dL Normal 32-36 [facility] Comment on above: Order Comment: TORI CTOR TO SPECIFY Performed By: #### L [id number] #### [facility] [address] [facility] [address] [place], [address] MCV (RBC) [Entitic vol] 93.4 fL Normal 80-94 [facility] Comment on above: Order Comment: TORI CTOR TO SPECIFY Performed By: #### L [id number] #### [facility] [address] [place], [address] Monocytes/100 WBC (Bld) 8.1 % Normal 0-10 [facility] Comment on above: Order Comment: COLLE CTOR TO SPECIFY Performed By: #### L [id number] #### [facility] [address] [place], [address] Neutrophils/100 WBC (Bld) 73.7 % High 47-70 [facility] Comment on above: Order Comment: COLLE CTOR TO SPECIFY Performed By: #### L [id number] #### [facility] [address] [place], [address] Nucleated RBC (Bld) [#/Vol] 0 10*3/uL Normal 0-5 [facility] Comment on above: Order Comment: TORI CTOR TO SPECIFY Performed By: #### L [id number] #### [facility] [address] [place], [address] Platelet mean volume (Bld) [Entitic vol] 10.7 fL Normal 6.2-12.0 [facility] Comment on above: Order Comment: TORI CTOR TO SPECIFY Performed By: #### L [id number] #### [facility] [address] [place], [address] Platelets (Bld) [#/Vol] 502 10*3/uL High 150-450 [facility] Comment on above: Order Comment: COLLE CTOR TO SPECIFY Performed By: #### L [id number] #### [facility] [address] [place], [address] RBC (Bld) [#/Vol] 4.42 10*6/uL Low 4.6-6.2 [facility] Comment on above: Order Comment: COLLE CTOR TO SPECIFY Performed By: #### L [id number] #### [facility] [address] [place], [address] RDW SD 44.1 fl High 35.1-43.9 [facility] Comment on above: Order Comment: TORI CTOR TO SPECIFY Performed By: #### L [id number] #### [facility] [address] [place], [place], [address] WBC (Bld) [#/Vol] 10.3 10*3/uL Normal 4.4-11.0 [facility] Comment on above: Order Comment: TORI CTOR TO SPECIFY Performed By: #### L [id number] #### [facility] [address] [place], [place], [address] Carbon dioxide measurementOr dered By: Jigna Brantley on 07-12-2024 CO2 [Moles/Vol] 32.0 mmol/L 21.0-32.0 [facility] Chloride measurementOrdered By: Jigna Brantley on 07-12-2024 Chloride [Moles/Vol] 104 mmol/L 98-107 [facility] Eosinophil percentageOrdered By: Jigna Brantley on 07-12-2024 Eosinophils/100 WBC (Bld) 0.0 % 0-5 [facility] Erythrocyte distribution wid th (RBC) [Ratio]Ordered By: Jigna Brantley on 07-12-2024 Erythrocyte distribution width (RBC) [Entitic vol] 44.1 fL High 35.1-43.9 [facility] Erythrocyte distribution wid th ratioOrdered By: Jigna Brantley on 07-12-2024 Erythrocyte distribution width (RBC) [Ratio] 12.8 % 11.6-14.6 [facility] Erythrocyte distribution wid th standard deviationOrdered By: Jigna Brantley on 07-12-2024 Erythrocyte distribution width (RBC) [Ratio] 44.1 fl High 35.1-43.9 [facility] Estimated glomerular filtrat ion rate (GFR) AmericanOrdered By: Jigna Brantley on 07-12-2024 Estimated GFR (MDRD) Amer 78 mL/min >60 [facility] Comment on above: GFR Calc Glomerular filtration rate ( GFR) estimationOrdered By: Jigna Brantley on 07-12-2024 Estimated GFR (MDRD) Non-Af Amer 65 mL/min >60 [facility] Comment on above: Non- GFR Calc GFR/1.73 sq M.predicted among non-blacks MDRD (S/P/Bld) [Vol rate/Area] 65 mL/min/{1.73_m2} >60 [facility] Comment on above: Non- GFR Calc Glucose measurementOrdered B y: Jigna Brantley on 07-12-2024 Glucose [Mass/Vol] 104 mg/dL 74-106 [facility] Comment on above: Fasting Glucose resu lt from 100 to 125 mg/dL suggests IMPAIRED HOMEOSTASIS per A.D.A. criteria. Hematocrit Auto (Bld) [Volum e fraction]Ordered By: Jigna Brantley on 07-12-2024 Hematocrit (Bld) [Volume fraction] 41.3 % 40-54 [facility] Hemoglobin A1con 07-12-2024 HbA1c (Bld) [Mass fraction] 6.2 % High 3.8-5.6 [facility] Comment on above: Order Comment: 206.1 Result Comment: Norm al < 5.7 % Prediabetic 5.7 - 6.4 % Diabetic >or= 6.5 % Please note range changes. Performed By: #### L 501.4020 #### [facility] [address] [place], [place] [address]all [facility] [place], [address] Hemoglobin A1c percentageOrd ered By: Jigna Brantley on 07-12-2024 HbA1c (Bld) [Mass fraction] 6.2 % High 3.8-5.6 [facility] Comment on above: Normal < 5.7 % Predi abetic 5.7 - 6.4 % Diabetic >or= 6.5 % Please note range changes. Hemoglobin measurementOrdere d By: Jigna Brantley on 07-12-2024 Hemoglobin (Bld) [Mass/Vol] 13.2 g/dL 13.0-16.5 [facility] Immature granulocytes/100 WB C Auto (Bld)Ordered By: Jigna Brantley on 07-12-2024 Immature granulocytes/100 WBC (Bld) 0.600 % 0.0-0.9 [facility] Comment on above: IG% - Immature Granu locytes (promyelocytes, myelocytes and metamyelocytes) > 1% indicates that a LEFT SHIFT is Present. Lymphocytes Auto (Unsp spec) [#/Vol]Ordered By: Jigna Brantley on 07-12-2024 Lymphocytes (Bld) [#/Vol] 1.79 10*3/uL 0.83-4.51 [facility] Lymphocytes/100 WBC Auto (Un sp spec)Ordered By: Jigna Brantley on 07-12-2024 Lymphocytes/100 WBC (Bld) 17.4 % Low 19-41 [facility] MCV (mean corpuscular volume ) determinationOrdered By: Jigna Brantley on 07-12-2024 MCV (RBC) [Entitic vol] 93.4 fL 80-94 [facility] Magnesiumon 07-12-2024 Magnesium [Mass/Vol] 2.7 mg/dL High 1.6-2.6 [facility] Comment on above: Order Comment: COLLE CTOR TO SPECIFY Performed By: #### L [id number] #### [facility] [address] [place], [address] Magnesium measurementOrdered By: Jigna Brantley on 07-12-2024 Magnesium [Mass/Vol] 2.7 mg/dL High 1.6-2.6 [facility] Mean corpuscular hemoglobin (MCH) determinationOrdered By: Jigna Brantley on 07-12-2024 MCH (RBC) [Entitic mass] 29.9 pg 27.0-32.0 [facility] Mean corpuscular hemoglobin concentration (MCHC) determinationOrdered By: Jigna Brantley on 07-12-2024 MCHC (RBC) [Mass/Vol] 32.0 g/dL 32-36 [facility] Mean platelet volume determi nationOrdered By: Jigna Brantley on 07-12-2024 Platelet mean volume (Bld) [Entitic vol] 10.7 fL 6.2-12.0 [facility] Monocyte percentageOrdered B y: iJgna Brantley on 07-12-2024 Monocytes/100 WBC (Bld) 8.1 % 0-10 [facility] Neutrophil percentageOrdered By: Jigna Brantley on 07-12-2024 Neutrophils/100 WBC (Bld) 73.7 % High 47-70 [facility] Nucleated red blood cell per centageOrdered By: Jigna Brantley on 07-12-2024 Nucleated RBC/100 WBC (Bld) [Ratio] 0 % 0-5 [facility] Platelet countOrdered By: Fabricio Brantley on 07-12-2024 Platelets (Bld) [#/Vol] 502 10*3/uL High 150-450 [facility] Potassium measurementOrdered By: Jigna Brantley on 07-12-2024 Potassium [Moles/Vol] 3.8 mmol/L 3.5-5.1 [facility] RBC Auto (Bld) [#/Vol]Ordere d By: Jigna Brantley on 07-12-2024 RBC (Bld) [#/Vol] 4.42 10*6/uL Low 4.6-6.2 [facility] Serum anion gap measurementO rdered By: Jigna Brantley on 07-12-2024 Anion gap [Moles/Vol] 5 mmol/L 5-15 [facility] Serum or plasma calcium rosalina urement (mass/volume)Ordered By: Jigna Brantley on 07-12-2024 Calcium [Mass/Vol] 9.6 mg/dL 8.5-10.1 [facility] Serum or plasma creatinine m easurement (mass/volume)Ordered By: Jigna Brantley on 07-12-2024 Creatinine [Mass/Vol] 1.19 mg/dL 0.70-1.30 [facility] Comment on above: The validity of the calculated GFR & GFRAA in patients over 70 years has not been determined. Clinical correlation is essential. Serum or plasma thyroid stim ulating hormone (TSH) measurement (units/volume)Ordered By: Jigna Brantley on 07-12-2024 TSH Qn 2.960 uIU/mL 0.358-3.740 [facility] Serum or plasma urea nitroge n measurement (mass/volume)Ordered By: Jigna Brantley on 07-12-2024 Urea nitrogen [Mass/Vol] 25 mg/dL High 7-18 [facility] Sodium levelOrdered By: Enoch Brantley on 07-12-2024 Sodium [Moles/Vol] 141 mmol/L 136-145 [facility] TSH QnOrdered By: Jigna jefferson on 07-12-2024 Thyroid Stimulating Hormone (TSH) 2.960 uIU/mL 0.358-3.740 [facility] Thyroid Stim Hormone (TSH)on 07-12-2024 TSH 2.960 uIU/mL Normal 0.358-3.740 [facility] Comment on above: Order Comment: 206.1 Performed By: #### L [id number] #### [facility] [address] [facility] [address] [place], [place], [address] Vitamin B12on 07-12-2024 Cobalamin (Vitamin B12) [Mass/Vol] 273 pg/mL Normal 211-911 [facility] Comment on above: Order Comment: COLLE CTOR TO SPECIFY Performed By: #### L [id number] #### [facility] [address] [facility] [place], [place], [id number] Vitamin B12 measurementOrder ed By: Jigna Brantley on 07-12-2024 Cobalamin (Vitamin B12) [Mass/Vol] 273 pg/mL 211-911 [facility] Vitamin D,25 Hydroxyon 07-12 Vitamin D 25-OH 6.3 ng/mL Normal [facility] Comment on above: Order Comment: COLLE CTOR TO SPECIFY Result Comment: Divine min D 25(OH) Status Range Deficiency <20 ng/mL (50nmol/L) Insufficiency 20 - 30 ng/mL (50 - 75 nmol/L) Sufficiency 30 - 100 ng/mL (75 - 250 nmol/L) Toxicity >100 ng/mL (>250 nmol/L) Performed By: #### L [id number] #### [facility] [address] [facility] [address] [place], [place], [address] White blood cell (WBC) count Ordered By: Jigna Brantley on 07-12-2024 WBC (Bld) [#/Vol] 10.3 10*3/uL 4.4-11.0 [facility] Bedside Glucoseon 07-11-2024 FINGERSTICK GLU 138 mg/dL High [address] [place] [address] Comment on above: Result Comment: KARUNA GEMENT OF PATIENT CARE PER NURSING PROTOCOL Performed By: #### L 501.080 #### [facility] [address] [facility] [address] FINGERSTICK GLU 185 mg/dL High [facility]106 [facility] Comment on above: Result Comment: KARUNA GEMENT OF PATIENT CARE PER NURSING PROTOCOL Performed By: #### L 501.080 #### [facility] [address] [place], [address] FINGERSTICK GLU 105 mg/dL Normal -[address] [place] [address] Comment on above: Result Comment: KARUNA GEMENT OF PATIENT CARE PER NURSING PROTOCOL Performed By: #### L 501.080 ####[facility] [address] [place], [address] Gl[facility] measurement at [facility] deOrdered By: Yann Ascencio on 07-11-2024 Bedside Glucose (Misc Panel) 138 mg/dL High [address] [place] [address] Comment on above: MANAGEMENT OF PATIEN T CARE PER NURSING PROTOCOL Glucose [Mass/Vol] 138 mg/dL High [facility] Comment on above: MANAGEMENT OF PATIEN T CARE PER NURSING PROTOCOL Absolute lymphocyte countOrd ered By: Yann Ascencio on 07-10-2024 Lymphocytes Auto (Unsp spec) [#/Vol] 0.60 10*3/uL Low 0.83-4.51 [facility] Absolute neutrophil countOrd ered By: Yann Ascencio on 07-10-2024 Neutrophils (Bld) [#/Vol] 7.5 10*3/uL 2.0-7.7 [facility] Automated lymphocyte count a s percentage of total leukocytesOrdered By: Yann Ascencio on 07-10-2024 Lymphocytes/100 WBC Auto (Unsp spec) 6.9 % Low 19-41 [facility] Basic Metabolic Profile (BMP )on 07-10-2024 BUN/CRE 17.5 RATIO Normal 10-20 [facility] Comment on above: Performed By: #### L 501.9985, L100.0100, L500.2500 ####[facility] [address] [place], [address] CA,Total 9.9 mg/dL Normal 8.5-10.1 [facility] Comment on above: Performed By: #### L [id number], L100.0100, L500.2500 ####[facility] [address] [place], [address] Chloride [Moles/Vol] 105 mmol/L Normal 98-107 [facility] Comment on above: Performed By: #### L [id number], L100.0100, L500.2500 ####[facility] [address] [place], [address] CO2 [Moles/Vol] 25.0 mmol/L Normal 21.0-32.0 [facility] Comment on above: Performed By: #### L [id number], L100.0100, L500.2500 ####[facility] [address] [place], [address] Creatinine [Mass/Vol] 1.03 mg/dL Normal 0.70-1.30 [facility] Comment on above: Result Comment: The validity of the calculated GFR GFRAA in patients over 70 years has not been determined. Clinical correlation is essential. Performed By: #### L [id number], L100.0100, L500.2500 ####[facility] [address] [place], [address] ECRCL 84.26 ml/min Normal [facility] Comment on above: Performed By: #### L [id number], L100.0100, L500.2500 ####[facility] [address] [place], [address] EST GFR - AA 93 mL/min Normal >60 [facility] Comment on above: Result Comment: Afri can [place] Citizen GFR Calc Performed By: #### L [id number], L100.0100, L500.2500 ####[facility] [address] [place], [address] GAP 8 Normal 5-15 [facility] Comment on above: Performed By: #### L [id number], L100.0100, L500.2500 ####[facility] [address] [place], [address] GFR/1.73 sq M.predicted among non-blacks MDRD (S/P/Bld) [Vol rate/Area] 76 mL/min/{1.73_m2} Normal >60 [facility] Comment on above: Result Comment: Non- GFR Calc Performed By: #### L [id number], L100.0100, L500.2500 ####[facility] [address] [place], [address] Glucose [Mass/Vol] 142 mg/dL High 74-106 [facility] Comment on above: Result Comment: Fast ing Glucose result greater than or equal to 126 mg/dL suggests DIABETES MELLITUS per A.D.A. criteria. Performed By: #### L 501.9985, L100.0100, L500.2500 ####[facility] [address] [place], [address] Potassium [Moles/Vol] 3.5 mmol/L Normal 3.5-5.1 [facility] Comment on above: Performed By: #### L [id number], L100.0100, L500.2500 ####[facility] [address] [place], [address] Sodium [Moles/Vol] 138 mmol/L Normal 136-145 [facility] Comment on above: Performed By: #### L [id number], L100.0100, L500.2500 ####[facility] [address] [place], [address] Urea nitrogen [Mass/Vol] 18 mg/dL Normal 7-18 [facility] Comment on above: Performed By: #### L [id number], L100.0100, L500.2500 ####[facility] [address] [place], [address] Basophil percentageOrdered B y: Yann Ascencio on 07-10-2024 Basophils/100 WBC (Bld) 0.1 % 0-1 [facility] Bedside Glucoseon 07-10-2024 FINGERSTICK GLU 148 mg/dL High 74-106 [facility] [facility] Comment on above: Result Comment: KARUNA GEMENT OF PATIENT CARE PER NURSING PROTOCOL Performed By: #### L 501.080 ####[facility] [address] [place], [address] FINGERSTICK GLU 111 mg/dL High 74-106 [facility] Comment on above: Result Comment: KARUNA GEMENT OF PATIENT CARE PER NURSING PROTOCOL Performed By: #### L 501.4020 #### [facility] Laboratory [address] [place], [address] FINGERSTICK GLU 147 mg/dL High 74-106 [facility] Comment on above: Result Comment: KARUNA GEMENT OF PATIENT CARE PER NURSING PROTOCOL Performed By: #### L 501.080 ####[facility] [address] [place], [address] FINGERSTICK GLU 136 mg/dL High 74-106 [facility] Comment on above: Result Comment: KARUNA GEMENT OF PATIENT CARE PER NURSING PROTOCOL Performed By: #### L 501.080 #### [facility] [address] [place], [address] Blood urea nitrogen (BUN)/cr eatinine ratioOrdered By: Yann Ascencio on 07-10-2024 Urea nitrogen/Creatinine [Mass ratio] 17.5 mg/mg 10-20 [facility] CBC W/Diff, Automatedon 06-30 PATH REV Reviewed Normal [facility] Comment on above: Result Comment: Neut rophilic leukocytosis. Clinical correlation necessary. Sreekanth Zhou M.D. 07/10/24 AMENDED REPORT 07/10/24 1444 PATH REV previously reported as: September Performed By: #### L 501.8100, L500.2500, L100.0100, L501.5200 #### [facility] [address] [place], [address] Absolute Lymph 0.60 X10 3/uL Low 0.83-4.51 [facility] Comment on above: Performed By: #### L 501.9985, L100.0100, L500.2500 ####[facility] [address] [place], [address] Absolute Neut 7.5 X10 3/uL Normal 2.0-7.7 [facility] Comment on above: Performed By: #### L 501.9985, L100.0100, L500.2500 ####[facility] [address] [place], [address] Basophils/100 WBC (Bld) 0.1 % Normal 0-1 [facility] Comment on above: Performed By: #### L 501.9985, L100.0100, L500.2500 ####[facility] [address] [place], [address] Eosinophils/100 WBC (Bld) 0.0 % Normal 0-5 [facility] Comment on above: Performed By: #### L 501.9985, L100.0100, L500.2500 ####[facility] [address] [place], [address] Erythrocyte distribution width (RBC) [Ratio] 12.9 % Normal 11.6-14.6 [facility] Comment on above: Performed By: #### L 501.9985, L100.0100, L500.2500 ####[facility] [address] [place], [address] Hematocrit (Bld) [Volume fraction] 38.3 % Low 40-54 [facility] Comment on above: Performed By: #### L 501.9985, L100.0100, L500.2500 ####[facility] [address] [place], [address] Hemoglobin (Bld) [Mass/Vol] 12.2 g/dL Low 13.0-16.5 [facility] Comment on above: Performed By: #### L 501.9985, L100.0100, L500.2500 ####[facility] [address] [place], [address] IG% 0.500 Normal 0.0-0.9 [facility] Comment on above: Result Comment: IG% - Immature Granulocytes (promyelocytes, myelocytes and metamyelocytes) > 1% indicates that a LEFT SHIFT is Present. Performed By: #### L 501.9985, L100.0100, L500.2500 ####[facility] [address] [place], [address] Lymphocytes/100 WBC (Bld) 6.9 % Low 19-41 [facility] Comment on above: Performed By: #### L 501.9985, L100.0100, L500.2500 ####[facility] [address] [place], [address] MCH (RBC) [Entitic mass] 30.0 pg Normal 27.0-32.0 [facility] Comment on above: Performed By: #### L 501.9985, L100.0100, L500.2500 ####[facility] [address] [place], [address] MCHC (RBC) [Mass/Vol] 31.9 g/dL Low 32-36 [facility] Comment on above: Performed By: #### L 501.9985, L100.0100, L500.2500 ####[facility] [address] [place], [address] MCV (RBC) [Entitic vol] 94.3 fL High 80-94 [facility] Comment on above: Performed By: #### L 501.9985, L100.0100, L500.2500 ####[facility] [address] [place], [address] Monocytes/100 WBC (Bld) 6.6 % Normal 0-10 [facility] Comment on above: Performed By: #### L 501.9985, L100.0100, L500.2500 ####[facility] [address] [place], [address] Neutrophils/100 WBC (Bld) 85.9 % High 47-70 [facility] Comment on above: Performed By: #### L 501.9985, L100.0100, L500.2500 ####[facility] [address] [place], [address] Nucleated RBC (Bld) [#/Vol] 0 10*3/uL Normal 0-5 [facility] Comment on above: Performed By: #### L 501.9985, L100.0100, L500.2500 ####[facility] [address] [place], [address] Platelet mean volume (Bld) [Entitic vol] 10.9 fL Normal 6.2-12.0 [facility] Comment on above: Performed By: #### L 501.9985, L100.0100, L500.2500 ####[facility] [address] [place], [address] Platelets (Bld) [#/Vol] 300 10*3/uL Normal 150-450 [facility] Comment on above: Performed By: #### L 501.9985, L100.0100, L500.2500 ####[facility] [address] [place], [address] RBC (Bld) [#/Vol] 4.06 10*6/uL Low 4.6-6.2 [facility] Comment on above: Performed By: #### L 501.9985, L100.0100, L500.2500 ####[facility] [address] [place], [address] RDW SD 44.8 fl High 35.1-43.9 [facility] Comment on above: Performed By: #### L 501.9985, L100.0100, L500.2500 ####[facility] [address] [place], [address] WBC (Bld) [#/Vol] 8.7 10*3/uL Normal 4.4-11.0 [facility] Comment on above: Performed By: #### L 501.9985, L100.0100, L500.2500 ####[facility] [address] [place], [address] Carbon dioxide measurementOr dered By: Yann Ascencio on 07-10-2024 CO2 [Moles/Vol] 25.0 mmol/L 21.0-32.0 [facility] Chloride measurementOrdered By: Yann Ascencio on 07-10-2024 Chloride [Moles/Vol] 105 mmol/L 98-107 [facility] Eosinophil percentageOrdered By: Yann Ascencio on 07-10-2024 Eosinophils/100 WBC (Bld) 0.0 % 0-5 [facility] Erythrocyte distribution wid th (RBC) [Ratio]Ordered By: Yann Ascencio on 07-10-2024 Erythrocyte distribution width (RBC) [Entitic vol] 44.8 fL High 35.1-43.9 [facility] Erythrocyte distribution wid th ratioOrdered By: Yann Ascencio on 07-10-2024 Erythrocyte distribution width (RBC) [Ratio] 12.9 % 11.6-14.6 [facility] Erythrocyte distribution wid th standard deviationOrdered By: Yann Ascencio on 07-10-2024 Erythrocyte distribution width (RBC) [Ratio] 44.8 fl High 35.1-43.9 [facility] Estimated glomerular filtrat ion rate (GFR) AmericanOrdered By: Yann Ascencio on 07-10-2024 Estimated GFR (MDRD) Amer 93 mL/min >60 [facility] Comment on above: GFR Calc Estimation of creatinine karlee aranceOrdered By: Yann Ascencio on 07-10-2024 Estimated Creatinine Clearance Calc 84.26 ml/min [facility] Glomerular filtration rate ( GFR) estimationOrdered By: Yann Ascencio on 07-10-2024 Estimated GFR (MDRD) Non-Af Amer 76 mL/min >60 [facility] Comment on above: Non- GFR Calc GFR/1.73 sq M.predicted among non-blacks MDRD (S/P/Bld) [Vol rate/Area] 76 mL/min/{1.73_m2} >60 [facility] Comment on above: Non- GFR Calc Glucose measurementOrdered B y: Yann Ascencio on 07-10-2024 Glucose [Mass/Vol] 142 mg/dL High 74-106 [facility] Comment on above: Fasting Glucose resu lt greater than or equal to 126 mg/dL suggests DIABETES MELLITUS per A.D.A. criteria. Hematocrit Auto (Bld) [Volum e fraction]Ordered By: Yann Ascencio on 07-10-2024 Hematocrit (Bld) [Volume fraction] 38.3 % Low 40-54 [facility] Hemoglobin A1con 07-10-2024 HbA1c (Bld) [Mass fraction] 6.0 % High 3.8-5.6 [facility] Comment on above: Result Comment: Norm al < 5.7 % Prediabetic 5.7 - 6.4 % Diabetic >or= 6.5 % Please note range changes. Performed By: #### L 501.5911, L100.0100, L500.2500 ####[facility] [address] [place], [address] Hemoglobin A1c percentageOrd ered By: Yann Ascencio on 07-10-2024 HbA1c (Bld) [Mass fraction] 6.0 % High 3.8-5.6 [facility] Comment on above: Normal < 5.7 % Predi abetic 5.7 - 6.4 % Diabetic >or= 6.5 % Please note range changes. Hemoglobin measurementOrdere d By: Yann Ascencio on 07-10-2024 Hemoglobin (Bld) [Mass/Vol] 12.2 g/dL Low 13.0-16.5 [facility] Immature granulocytes/100 WB C Auto (Bld)Ordered By: Yann Ascencio on 07-10-2024 Immature granulocytes/100 WBC (Bld) 0.500 % 0.0-0.9 [facility] Comment on above: IG% - Immature Granu locytes (promyelocytes, myelocytes and metamyelocytes) > 1% indicates that a LEFT SHIFT is Present. Lymphocytes Auto (Unsp spec) [#/Vol]Ordered By: Yann Ascencio on 07-10-2024 Lymphocytes (Bld) [#/Vol] 0.60 10*3/uL Low 0.83-4.51 [facility] Lymphocytes/100 WBC Auto (Un sp spec)Ordered By: Yann Ascencio on 07-10-2024 Lymphocytes/100 WBC (Bld) 6.9 % Low 19-41 [facility] MCV (mean corpuscular volume ) determinationOrdered By: Yann Ascencio on 07-10-2024 MCV (RBC) [Entitic vol] 94.3 fL High 80-94 [facility] Mean corpuscular hemoglobin (MCH) determinationOrdered By: Yann Ascencio on 07-10-2024 MCH (RBC) [Entitic mass] 30.0 pg 27.0-32.0 [facility] Mean corpuscular hemoglobin concentration (MCHC) determinationOrdered By: Yann Ascencio on 07-10-2024 MCHC (RBC) [Mass/Vol] 31.9 g/dL Low 32-36 [facility] Mean platelet volume determi nationOrdered By: Yann Ascencio on 07-10-2024 Platelet mean volume (Bld) [Entitic vol] 10.9 fL 6.2-12.0 [facility] Monocyte percentageOrdered B y: Yann Ascencio on 07-10-2024 Monocytes/100 WBC (Bld) 6.6 % 0-10 [facility] Neutrophil percentageOrdered By: Yann Ascencio on 07-10-2024 Neutrophils/100 WBC (Bld) 85.9 % High 47-70 [facility] Nucleated red blood cell per centageOrdered By: Yann Ascencio on 07-10-2024 Nucleated RBC/100 WBC (Bld) [Ratio] 0 % 0-5 [facility] Platelet countOrdered By: Damien Ascencio on 07-10-2024 Platelets (Bld) [#/Vol] 300 10*3/uL 150-450 [facility] Potassium measurementOrdered By: Yann Ascencio on 07-10-2024 Potassium [Moles/Vol] 3.5 mmol/L 3.5-5.1 [facility] RBC Auto (Bld) [#/Vol]Ordere d By: Yann Ascencio on 07-10-2024 RBC (Bld) [#/Vol] 4.06 10*6/uL Low 4.6-6.2 [facility] Serum anion gap measurementO rdered By: Yann Ascencio on 07-10-2024 Anion gap [Moles/Vol] 8 mmol/L 5-15 [facility] Serum or plasma calcium rosalina urement (mass/volume)Ordered By: Yann Ascencio on 07-10-2024 Calcium [Mass/Vol] 9.9 mg/dL 8.5-10.1 [facility] Serum or plasma creatinine m easurement (mass/volume)Ordered By: Yann Ascencio on 07-10-2024 Creatinine [Mass/Vol] 1.03 mg/dL 0.70-1.30 [facility] Comment on above: The validity of the calculated GFR & GFRAA in patients over 70 years has not been determined. Clinical correlation is essential. Serum or plasma urea nitroge n measurement (mass/volume)Ordered By: Yann Ascencio on 02-11-2025 Urea nitrogen [Mass/Vol] 18 mg/dL 7-18 [facility] Sodium levelOrdered By: Yann Ascencio on 07-10-2024 Sodium [Moles/Vol] 138 mmol/L 136-145 [facility] White blood cell (WBC) count Ordered By: Yann Ascencio on 07-10-2024 WBC (Bld) [#/Vol] 8.7 10*3/uL 4.4-11.0 [facility] 12 Lead EKGon 07-09-2024 12 Lead EKG [facility] Cardiovascular Services [address] [place] [address] 12 Lead EKG 07/09/24 0825 MR#: [id number] Acct: [id number] Name: REINA SULLIVAN Rep #: [id number] : 1955 69 From: Олег Andrade MD Attending Dr: Dr. Yann Ascencio DO Status: ADM IN Ordering Dr: Priscilla Reynaga MD Date: 07/09/24 Location: [facility] Sex: M C Admitted: 07/09/24 Test Reason [...] abnormality Abnormal ECG Confirmed by Олег Andrade ([id number]), loan expeditor MARLENE CAMP ([id number]) on 07/10/2024 10:05:21 AM Referred By: MELY Confirmed By: Олег Andrade 07/10/24 1005 Date Олег Andrade MD CC: Dr. Priscilla Reynaga MD; Dr. Yann Ascencio DO; Dr. Aric Zapien MD Signed Normal [facility] Albumin to globulin ratioOrd ered By: Priscilla Reynaga on 07-09-2024 Albumin/Globulin [Mass ratio] 0.7 {ratio} Low 0.9-2.4 [facility] Ankle min 3 Viewson 07-09-19 25 Ankle min 3 Views [facility] Imaging Services [address] [place] [address] Ankle min 3 Views MR#: [id number] Acct: [id number] Name: REINA SULLIVAN Rep #: [id number] : 1955 M 69 From: Roscoe emmanuel MD PCP: Dr. Aric Zapien MD Status: REG ER Study: Ankle min 3 Views Date of Exam: 07/09/24 Exam# [id number] Ordering Dr: Priscilla Reynaga MD EXAM: ANKLE MIN 3 VIEWS CLINICAL HISTORY: Pain following injury. COMPARISON: None. TECHNIQUE: Three views were obtained. FINDINGS: Diffuse soft tissue swelling. No fracture is seen. Small plantar spur. RAD/Ankle min 3 Views IMPRESSION: Diffuse soft tissue swelling. Reading Location: [facility] CC: Dr. Priscilla Reynaga MD; Dr. Aric Zapien MD Tariff Clerk: Signed Normal [facility] Bedside Glucoseon 07-09-2024 FINGERSTICK GLU 132 mg/dL High 74-106 [facility] Comment on above: Result Comment: KARUNA GEMENT OF PATIENT CARE PER NURSING PROTOCOL Performed By: #### L 501.4020 #### [facility] [address] [facility] [address] FINGERSTICK GLU 152 mg/dL High 74-106 [facility] Comment on above: Result Comment: KARUNA GEMENT OF PATIENT CARE PER NURSING PROTOCOL Performed By: #### L 501.080 #### [facility] [address] [facility] [address] FINGERSTICK GLU 109 mg/dL High 74-106 [facility] Comment on above: Result Comment: KARUNA GEMENT OF PATIENT CARE PER NURSING PROTOCOL Performed By: #### L 501.080 ####[facility] [address] [facility] [address] Bilirubin Test strip Ql (U)O rdered By: Priscilla Reynaga on 07-09-2024 Bilirubin Ql (U) 1 mg/dL High Negative [facility] Comment on above: COLOR OF URINE MAY A FFECT DIPSTICK RESULTS. Bilirubin, totalOrdered By: Priscilla Reynaga on 07-09-2024 Bilirubin [Mass/Vol] 0.80 mg/dL 0.20-1.00 [facility] Comment on above: For patients on eltr ombopag therapy, use of Dimension Aurora TBIL is not recommended. Chest 1 View (Portable)on Chest 1 View (Portable) [facility] Imaging Services [address] [place] [address] Chest 1 View (Portable) MR#: [id number] Acct: [id number] Name: REINA SULLIVAN Rep #: [id number] : 1955 M 69 From: Jeffy Belle PCP: Dr. Aric Zapien MD Status: REG ER Study: Chest 1 View (Portable) Date of Exam: 07/09/24 Exam# [id number] Ordering Dr: Priscilla Reynaga MD PROCEDURE: CHEST [...] acute osseous process is seen. Reading Location: [address] CC: Dr. Priscilla Reynaga MD; Dr. Aric Zapien MD Tariff Clerk: Signed Normal [facility] Comprehensive Metabolic Prof ilon 07-09-2024 Albumin [Mass/Vol] 2.9 g/dL Low 3.2-5.0 [facility] Comment on above: Performed By: #### L 501.8100, L500.2500, L100.0100, L501.5200 #### [facility] [address] [place], [address] Albumin/Globulin [Mass ratio] 0.7 {ratio} Low 0.9-2.4 [facility] Comment on above: Performed By: #### L 501.8100, L500.2500, L100.0100, L501.5200 #### [facility] [address] [place], [address] ALK P 68 U/L Normal 45-117 [facility] Comment on above: Performed By: #### L 501.8100, L500.2500, L100.0100, L501.5200 #### [facility] [address] [place], [address] ALT [Catalytic activity/Vol] 16 U/L Normal 16-61 [facility] Comment on above: Performed By: #### L 501.8100, L500.2500, L100.0100, L501.5200 #### [facility] [address] [place], [address] AST [Catalytic activity/Vol] 11 U/L Low 15-37 [facility] Comment on above: Performed By: #### L 501.8100, L500.2500, L100.0100, L501.5200 #### [facility] [address] [place], [address] Bilirubin [Mass/Vol] 0.80 mg/dL Normal 0.20-1.00 [facility] Comment on above: Result Comment: For patients on eltrombopag therapy, use of Dimension Aurora TBIL is not recommended. Performed By: #### L 501.8100, L500.2500, L100.0100, L501.5200 #### [facility] [address] [place], [address] BUN/CRE 14.5 RATIO Normal 10-20 [facility] Comment on above: Performed By: #### L 501.8100, L500.2500, L100.0100, L501.5200 #### [facility] [address] [place], [address] CA,Total 9.3 mg/dL Normal 8.5-10.1 [facility] Comment on above: Performed By: #### L 501.8100, L500.2500, L100.0100, L501.5200 #### [facility] [address] [place], [address] Chloride [Moles/Vol] 104 mmol/L Normal 98-107 [facility] Comment on above: Performed By: #### L 501.8100, L500.2500, L100.0100, L501.5200 #### [facility] [address] [place], [address] CO2 [Moles/Vol] 27.0 mmol/L Normal 21.0-32.0 [facility] Comment on above: Performed By: #### L 501.8100, L500.2500, L100.0100, L501.5200 #### [facility] [address] [place], [address] Creatinine [Mass/Vol] 1.38 mg/dL High 0.70-1.30 [facility] Comment on above: Result Comment: The validity of the calculated GFR GFRAA in patients over 70 years has not been determined. Clinical correlation is essential. Performed By: #### L 501.8100, L500.2500, L100.0100, L501.5200 #### [facility] [address] [place], [address] ECRCL 66.83 ml/min Normal [facility] Comment on above: Performed By: #### L 501.8100, L500.2500, L100.0100, L501.5200 #### [facility] [address] [place], [address] EST GFR - AA 66 mL/min Normal >60 [facility] Comment on above: Result Comment: Afri can [place] Citizen GFR Calc Performed By: #### L 501.8100, L500.2500, L100.0100, L501.5200 #### [facility] [address] [place], [address] GAP 10 Normal 5-15 [facility] Comment on above: Performed By: #### L 501.8100, L500.2500, L100.0100, L501.5200 #### [facility] [address] [place], [address] GFR/1.73 sq M.predicted among non-blacks MDRD (S/P/Bld) [Vol rate/Area] 55 mL/min/{1.73_m2} Low >60 [facility] Comment on above: Result Comment: Non- GFR Calc Performed By: #### L 501.8100, L500.2500, L100.0100, L501.5200 #### [facility] [address] [place], [address] Globulin (S) [Mass/Vol] 4.4 g/dL High 2.2-4.2 [facility] Comment on above: Performed By: #### L 501.8100, L500.2500, L100.0100, L501.5200 #### [facility] [address] [place], [address] Glucose [Mass/Vol] 117 mg/dL High 74-106 [facility] Comment on above: Result Comment: Fast ing Glucose result from 100 to 125 mg/dL suggests IMPAIRED HOMEOSTASIS per A.D.A. criteria. Performed By: #### L 501.8100, L500.2500, L100.0100, L501.5200 #### [facility] [address] [place], [address] Potassium [Moles/Vol] 3.1 mmol/L Low 3.5-5.1 [facility] Comment on above: Performed By: #### L 501.8100, L500.2500, L100.0100, L501.5200 #### [facility] [address] [place], [address] Sodium [Moles/Vol] 141 mmol/L Normal 136-145 [facility] Comment on above: Performed By: #### L 501.8100, L500.2500, L100.0100, L501.5200 #### [facility] [address] [place], [address] T PROT 7.3 g/dL Normal 6.4-8.2 [facility] Comment on above: Performed By: #### L 501.8100, L500.2500, L100.0100, L501.5200 #### [facility] [address] [place], [address] Urea nitrogen [Mass/Vol] 20 mg/dL High 7-18 [facility] Comment on above: Performed By: #### L 501.8100, L500.2500, L100.0100, L501.5200 #### [facility] [address] [place], [address] D-Dimer Quantitative (DVT/PE )on 07-09-2024 D-DIMER QUANT 1.11 FEU/ug/m Invalid Interpretation Code 0.27-0.49 [facility] Comment on above: Result Comment: D-Di phillip ELEVATED (>0.49): Additional studies and clinical assessments are indicated to conclude diagnosis of: Deep Vein Thrombosis (DVT) or Pulmonary Embolism (PE) CRITICAL VALUE CALLED TO Reddy CHRISTIE 07/09/24 0925 Vesta Gutierrez. RESULTS READ BACK BY . Performed By: #### L 501.8100, L500.2500, L100.0100, L501.5200 #### [facility] [address] [place], [address] D-dimer measurement for deep venous thrombosisOrdered By: Priscilla Reynaga on 07-09-2024 D-Dimer Quantitative (PE/DVT) 1.11 FEU/ug/m High 0.27-0.49 [facility] Comment on above: D-Dimer ELEVATED (>0 .49): Additional studies and clinicalassessments are indicated to conclude diagnosis of:Deep Vein Thrombosis (DVT) or Pulmonary Embolism (PE)CRITICAL VALUE CALLED TO Reddy CHRISTIE07/09/24 0925 Vesta Gutierrez.RESULTS READ BACK BY . Echo Completeon 07-09-2024 Echo Complete [facility] Cardiovascular Services [address] [place] [address] Echo Complete 07/10/24 0827 MR#: [id number] Acct: [id number] Name: REINA SULLIVAN Rep #: [id number] : 1955 69 From: Estuardo Irby MD Attending Dr: Dr. Yann Ascencio, Status: ADM IN Ordering Dr: Yann Asecncio DO Date: 07/09/24 Location: U Sex: M [...] MD Date Dictated: 07/10/24826 Date Transcribed: 07/10/241452 Tariff Clerk: Signed Normal [facility] Emergency Department Summary on 07-09-2024 Emergency Department Summary [facility] Medical Records [facility] [address] [place] [address] Emergency Department Summary 07/09/24 MR#: [id number] Acct: [id number] Name: REINA SULLIVAN Rep #: [id number] : 1955 69 From: Priscilla Reynaga MD [...] 2 diabetes mellitus TIA (transient ischemic attack) ID (myocardial infarction) Hyperlipidemia Atrial fibrillation with rapid [...] Rate: tachycard (more content not included)... Normal [facility] Epithelial cells.renal LM.HP F (Urine sed) [#/Area]Ordered By: Priscilla Reynaga on 07-09-2024 Urine Renal Epithelial Cells 0-5 SEEN /hpf 0-5 [facility] Epithelial cells.squamous LM Ql (Urine sed)Ordered By: Priscilla Reynaga on 07-09-2024 Epithelial cells.squamous LM.HPF (Urine sed) [#/Area] 0 /[HPF] 0-5 [facility] Fine Granular Casts LM.LPF ( Urine sed) [#/Area]Ordered By: Priscilla Reynaga on 07-09-2024 Urine Fine Granular Casts 0-5 SEEN /lpf 0-5 [facility] Foot min 3 Viewson 5 Foot min 3 Views [facility] Imaging Services [address], [place] [id number] Foot min 3 Views MR#: [id number] Acct: [id number] Name: REINA SULLIVAN Rep #: [id number] : 1955 M 69 From: Roscoe emmanuel MD PCP: Dr. Aric Zapien MD Status: REG ER Study: Foot min 3 Views Date of Exam: 07/09/24 Exam# [id number] Ordering Dr: Priscilla Reynaga MD EXAM: FOOT MIN 3 VIEWS CLINICAL HISTORY: Pain following injury. COMPARISON: None TECHNIQUE: Three views were obtained. FINDINGS: Diffuse dorsal soft tissue swelling. RAD/Foot min 3 Views IMPRESSION: Diffuse dorsal soft tissue swelling. Reading Location: [place] [address] CC: Dr. Priscilla Reynaga MD; Dr. Aric Zapien MD Tariff Clerk: Signed Normal [facility] Glucose Ql (U)Ordered By: Dmitry Reynaga on 07-09-2024 Urine Glucose (UA) Normal mg/dl Normal [facility] H AND P Exam - [facility] 07-09-2024 H&P Exam - Hospitalist [facility] Medical Records Department [address] [place] [address] H P Exam - Hospitalist 07/09/24 1039 MR#: [id number] Acct: [id number] Name: REINA SULLIVAN Rep #: [id number] : 1955 69 From: Yann Ascencio DO PCP: Dr. Aric Zapien MD Status:ADM IN Location: [facility] [id number] HPI - General General Date of Service: [...] morning due to the severe ankle pain. [facility] Medical History Essential hypertension Hx of thyroiditis Type 2 diabetes mellitus TIA (transient ischemic attack) ID (myocardial infarction) Hyperlipidemia Atrial fibrillation with rapid [...] tablet 40 mg PO DAILY 11/17/22 Unknown [facility] blood pressure test kit-medium #1 ea 06/23/23 [...] Capillary Re (more content not included)... Normal [facility] Hyaline casts LM.LPF (Urine sed) [#/Area]Ordered By: Priscilla Reynaga on 07-09-2024 Hyaline casts (Urine sed) [#/Area] 5 /[LPF] 0-5 [facility] Hyaline casts LM Ql (Urine sed) 5-10 SEEN /lpf 0-5 [facility] Ketones Test strip Ql (U)Ord ered By: Priscilla Reynaga on 07-09-2024 Ketones Ql (U) 50 mg/dl High Negative [facility] L501.4020on 07-09-2024 TROPONIN-I HS 18 pg/mL Normal 3.0-78.0 [facility] Comment on above: Order Comment: COLLE CTOR TO SPECIFY Result Comment: Cristina harris Note: New Test Units and Gender Specific Reference Ranges. For more information see Policy Stat Procedure [facility] High Sensitivity Troponin (TNIH) and attachments. Performed By: #### L 400.0001 #### [facility] Laboratory [address] [place], [address] TROPONIN-I HS 18 pg/mL Normal 3.0-78.0 [facility] Comment on above: Result Comment: Plea se Note: New Test Units and Gender Specific Reference Ranges. For more information see Policy Stat Procedure [facility] High Sensitivity Troponin (TNIH) and attachments. Performed By: #### L 501.4020 #### [facility] [address] [place], [address] L501.5425on 07-09-2024 TROPONIN-I HS 15 pg/mL Normal 3.0-78.0 [facility] Comment on above: Order Comment: 206 Result Comment: Plea se Note: New Test Units and Gender Specific Reference Ranges. For more information see Policy Stat Procedure [facility] High Sensitivity Troponin (TNIH) and attachments. Performed By: #### L 501.8100, L500.2500, L100.0100, L501.5200 #### [facility] [address] [place], [address] Laboratory - Chemistry and C hemistry - challengeOrdered By: Priscilla Reynaga on 07-09-2024 AST [Catalytic activity/Vol] 11 U/L Low 15-37 [facility] Lactic Acidon 07-09-2024 Lactate [Moles/Vol] 1.4 mmol/L Normal 0.4-1.9 [facility] Comment on above: Order Comment: 206 Performed By: #### L 501.8100, L500.2500, L100.0100, L501.5200 #### [facility] [address] [place], [address] Lactic acid measurementOrder ed By: Priscilla Reynaga on 07-09-2024 Lactate [Moles/Vol] 1.4 mmol/L 0.4-2.0 [facility] Microscopic analysis of urin e for red blood cells (RBC)Ordered By: Priscilla Reynaga on 07-09-2024 Microscopic analysis of urine for red blood cells (RBC) 0-5 SEEN /hpf 0-5 [facility] Urine RBC 0-5 SEEN /hpf 0-5 [facility] Mucus LM Ql (Urine sed)Order ed By: Priscilla Reynaga on 07-09-2024 Mucus Ql (Urine sed) 1+ /hpf [facility] Nitrite Test strip Ql (U)Ord ered By: Priscilla Reynaga on 07-09-2024 Nitrite Ql (U) Negative Negative [facility] Pathologist review Ramses (Unsp spec) [Interp]Ordered By: Priscilla Reynaga on 07-09-2024 Differential Pathologist's Review Reviewed [facility] Comment on above: Previous reported re sult: May cherelle Edited by: SONDRA on 07/10/24:1444Neutrophilic leukocytosis.Clinical correlation necessary.Sreekanth Zhou M.D. 07/10/24 AMENDED REPORT 07/10/24 1444 PATH REV previously reported as: Arlene villarreal Protein Test strip Ql (U)Ord ered By: Priscilla Reynaga on 07-09-2024 Protein Ql (U) 100 mg/dl High Negative [facility] Review by pathologistOrdered By: Priscilla Reynaga on 07-09-2024 Pathologist review Ramess (Unsp spec) [Interp] Reviewed [facility] Comment on above: Previous reported re sult: Arlene villarreal Edited by: SONDRA on 07/10/24:1444Neutrophilic leukocytosis.Clinical correlation necessary.Sreekanth Zhou M.D. 07/10/24 AMENDED REPORT 07/10/24 1444 PATH REV previously reported as: Arlene villarreal Serum globulin measurementOr dered By: Priscilla Reynaga on 07-09-2024 Globulin (S) [Mass/Vol] 4.4 g/dL High 2.2-4.2 [facility] Serum or plasma alanine chatterjee otransferase (ALT) measurementOrdered By: Priscilla Reynaga on 07-09-2024 ALT [Catalytic activity/Vol] 16 U/L 16-61 [facility] Serum or plasma albumin rosalina urement (mass/volume)Ordered By: Priscilla Reynaga on 07-09-2024 Albumin [Mass/Vol] 2.9 g/dL Low 3.2-5.0 [facility] Serum or plasma alkaline elvis sphatase measurementOrdered By: Priscillarobert Reynaga on 07-09-2024 ALP [Catalytic activity/Vol] 68 U/L 45-117 [facility] Serum or plasma uric acid me asurement (mass/volume)Ordered By: Yann Ascencio on 07-09-2024 Urate [Mass/Vol] 7.5 mg/dL High 3.5-7.2 [facility] Comment on above: The drugs N-Acetylcy steine and Metamizole may falsely depress this assay. Squamous epithelial cells de tection in urine sediment by light microscopyOrdered By: Priscilla Reynaga on 07-09-2024 Epithelial cells.squamous LM Ql (Urine sed) 0 SEEN /hpf 0-5 [facility] Total proteinOrdered By: Taj robert Reynaga on 07-09-2024 Protein [Mass/Vol] 7.3 g/dL 6.4-8.2 [facility] Troponin IOrdered By: Yann gandara on 07-09-2024 Troponin I 18 pg/mL 3.0-78.0 [facility] Comment on above: Please Note: New Yudith t Units and Gender Specific Reference Ranges. For more information see Policy Stat Procedure [facility] High Sensitivity Troponin (TNIH) and attachments. Troponin I High Sensitivity 18 pg/mL 3.0-78.0 [facility] Comment on above: Please Note: New Yudith t Units and Gender Specific Reference Ranges. For more information see Policy Stat Procedure [facility] High Sensitivity Troponin (TNIH) and attachments. Uric Acidon 07-09-2024 URIC 7.5 mg/dL High 3.5-7.2 [facility] Comment on above: Result Comment: The drugs N-Acetylcysteine and Metamizole may falsely depress this assay. Performed By: #### L 400.0001 #### [facility] [address] [place], [place], [address] Urinalysis, Completeon 07-09 CAST,WBC 0-5 SEEN Normal None Seen [facility] Comment on above: Order Comment: COLLE CTOR TO SPECIFY Performed By: #### L 400.0001 #### [facility] [address] [place], [address] CAST,FINE GRAN 0-5 SEEN Normal 0-5 [facility] Comment on above: Order Comment: TORI CTOR TO SPECIFY Performed By: #### L 400.0001 #### [facility] [address] [place], [address] CAST,HYALINE 5-10 SEEN Normal 0-5 [facility] Comment on above: Order Comment: TORI CTOR TO SPECIFY Performed By: #### L 400.0001 #### [facility] [address] [place], [address] EPI,RENAL 0-5 SEEN Normal 0-5 [facility] Comment on above: Order Comment: TORI CTOR TO SPECIFY Performed By: #### L 400.0001 #### [facility] [address] [place], [address] Mucus Ql (Urine sed) 1+ /hpf Normal [facility] Comment on above: Order Comment: TORI CTOR TO SPECIFY Performed By: #### L 400.0001 #### [facility] [address] [place], [address] RBC 0-5 SEEN Normal 0-5 [facility] Comment on above: Order Comment: TORI CTOR TO SPECIFY Performed By: #### L 400.0001 #### [facility] [address] [place], [address] WBC 0-5 SEEN Normal 0-5 [facility] Comment on above: Order Comment: TORI CTOR TO SPECIFY Performed By: #### L 400.0001 #### [facility] [address] [place], [address] BACTERIA 0 SEEN Normal None Seen [facility] Comment on above: Order Comment: TORI CTOR TO SPECIFY Performed By: #### L 400.0001 #### [facility] [address] [place], [address] EPI,SQUAMOUS 0 SEEN Normal 0-5 [facility] Comment on above: Order Comment: TORI CTOR TO SPECIFY Performed By: #### L 400.0001 #### [facility] [address] [place], [address] Urine blood detectionOrdered By: Priscilla Reynaga on 07-09-2024 Urine Occult Blood 10 /ul High Negative [facility] Urine clarityOrdered By: Taj Reynaga on 07-09-2024 Clarity (U) Clear Clear [facility] Urine color determinationOrd ered By: Priscilla Reynaga on 07-09-2024 Color (U) Yellow Yellow [facility] Urine glucose detectionOrder ed By: Priscilla Reynaga on 07-09-2024 Glucose Ql (U) Normal mg/dl Normal [facility] Urine leukocyte esterase det ection by dipstickOrdered By: Priscilla Reynaga on 07-09-2024 Leukocyte esterase Test strip Ql (U) 25 /ul High Negative [facility] Urine pHOrdered By: Priscilla Wynn outhern on 07-09-2024 pH (U) 6.0 [pH] 5.0 - 8.0 [facility] Urine sediment bacteria coun t by microscopy (number/high power field)Ordered By: Priscilla Reynaga on 07-09-2024 Bacteria LM.HPF (Urine sed) [#/Area] 0 /[HPF] None Seen [facility] Urine sediment fine granular cast count by microscopy (number/low power field)Ordered By: Priscilla Reynaga on 07-09-2024 Fine Granular Casts LM.LPF (Urine sed) [#/Area] 0-5 SEEN /lpf 0-5 [facility] Urine sediment leukocyte yanira t count by microscopy (number/low power field)Ordered By: Priscilla Reynaga on 07-09-2024 WBC casts LM.LPF (Urine sed) [#/Area] 0-5 SEEN /lpf None Seen [facility] Urine sediment renal epithel ial cell count by microscopy (number/high power field)Ordered By: Priscilla Reynaga on 07-09-2024 Epithelial cells.renal LM.HPF (Urine sed) [#/Area] 0 /[HPF] 0-5 [facility] Urine specific gravity measu rementOrdered By: Priscilla Reynaga on 07-09-2024 Specific gravity (U) [Rel density] 1.020 1.002-1.030 [facility] Urine urobilinogen measureme ntOrdered By: Priscilla Reynaga on 07-09-2024 Urobilinogen Ql (U) 1 mg/dl High Normal [facility] Urobilinogen Ql (U)Ordered B y: Priscilla Reynaga on 07-09-2024 Urobilinogen (U) [Mass/Vol] 1 mg/dL High Normal [facility] Venous Duplex US - Noam Extre mon 07-09-2024 Venous Duplex US - Noam Extrem [facility] [address] [place] [address] Venous Duplex US - Noam Extrem 07/09/24 1014 MR#: [id number] Acct: [id number] Name: REINA SULLIVAN Rep #: [id number] : 1955 69 From: Yann Miller MD [...] Date Dictated: 07/09/24 1014 Date Transcribed: 07/10/241555 Tariff Clerk: Signed Normal [facility] WBC casts LM.LPF (Urine sed) [#/Area]Ordered By: Priscilla Reynaga on 07-09-2024 Urine White Blood Cell Casts 0-5 SEEN /lpf None Seen [facility] White blood cell countOrdere d By: Priscilla Reynaga on 07-09-2024 Urine WBC 0-5 SEEN /hpf 0-5 [facility] White blood cell count 0-5 SEEN /hpf 0-5 [facility] CNPNon 06-26-2024 CNPN Telephone (NEAGCL[facility]) REINA SULLIVAN ([id number]) 1955 M Date Time Provider Department 06/26/24 [...] unspecified na*09/30/2022 Left atrial enlargement [I51.7] 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 06/16/24 telephone encounter routed to [facility] for back, neck, and spine pool again for scheduling consultation with orthopaedic renewals specialist. 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 ALBUMIN/CREATININE RATIO, UR INEon 06-22-2024 Albumin DL <= 20 mg/L (U) [Mass/Vol] 223.9 mg/L Normal [facility] Comment on above: Order Comment: Speci men Type: URINE SPECIMENOrdering Facility: [facility] Address: [address] [place] [address] Performed By: #### U ACR ####[facility] LABCLIA [id number] [place] [address] [place] Albumin/Creatinine (U) [Mass ratio] 262 mg/g High <[address] [facility] Comment on above: Order Comment: Speci men Type: URINE SPECIMENOrdering Facility: [facility] Address: [address] [place] [address] Result Comment: Adul t Male and Female Nephrotic Criteria: <30 mg/g is considered normal to mildly increased 30-300 mg/g is considered moderately increased >300 mg/g is considered severely increased KDIGO. (2013). KDIGO 2012 Clinical Practice Guideline for the Evaluation and Management of Chronic Kidney Disease. Official Journal of the International Society of Nephrology, 3(1), 1-150. Performed By: #### U ACR ####[facility] LABCLIA [id number] [place] [address] [place] Creatinine (U) [Mass/Vol] 85.6 mg/dL Normal 20.0-300.[address] [facility] Comment on above: Order Comment: Speci men Type: URINE SPECIMENOrdering Facility: [facility] Address: [address] [place] [address] Performed By: #### U ACR ####[facility] LABCLIA [id number] [place] [address] [place] CBC W Auto Differential pane l (Bld)on 06-22-2024 Basophils (Bld) [#/Vol] 0.09 10*3/uL Normal <0.[address] [facility] Comment on above: Order Comment: Speci men Type: BLOOD SPECIMENOrdering Facility: [facility] Address: [address] [place] [address] Performed By: #### 5 7021-8 ####[facility] LABCLIA [id number] [place] [address] [place] Basophils/100 WBC (Bld) 0.8 % Normal [facility] Comment on above: Order Comment: Speci men Type: BLOOD SPECIMENOrdering Facility: [facility] Address: [address] [place] [address] Performed By: #### 5 7021-8 ####[facility] LABCLIA [id number] [address] [place] Differential cell count method Nom (Bld) Auto Normal [facility] Comment on above: Order Comment: Speci men Type: BLOOD SPECIMENOrdering Facility: [facility] Address: [address] [place] [address] Performed By: #### 5 7021-8 ####[facility] LABCLIA [id number] [place] [address] [place] Eosinophils (Bld) [#/Vol] 0.07 10*3/uL Normal <0.[address] [facility] Comment on above: Order Comment: Speci men Type: BLOOD SPECIMENOrdering Facility: [facility] Address: [address] [place] [address] Performed By: #### 5 7021-8 ####[facility] LABCLIA [id number] [place] [address] [place] Eosinophils/100 WBC (Bld) 0.7 % Normal [facility] Comment on above: Order Comment: Speci men Type: BLOOD SPECIMENOrdering Facility: [facility] Address: [address] [place] [address] Performed By: #### 5 7021-8 ####[facility] LABIA [id number] [place] [address] [place] Erythrocyte distribution width (RBC) [Ratio] 13.5 % Normal 11.5-15.[address] [facility] Comment on above: Order Comment: Speci men Type: BLOOD SPECIMENOrdering Facility: [facility] Address: [address] [place] [address] Performed By: #### 5 7021-8 ####[facility] LABIA [id number] [place] [address] [place] Hematocrit (Bld) [Volume fraction] 45.6 % Normal 39.0-51.[address] [facility] Comment on above: Order Comment: Speci men Type: BLOOD SPECIMENOrdering Facility: [facility] Address: [address] [place] [address] Performed By: #### 5 7021-8 ####[facility] LABCLIA [id number] [place] [address] [place] Hemoglobin (Bld) [Mass/Vol] 14.9 g/dL Normal 13.0-17.[address] [facility] Comment on above: Order Comment: Speci men Type: BLOOD SPECIMENOrdering Facility: [facility] Address: [address] [place] [address] Performed By: #### 5 7021-8 ####[facility] LABCLIA [id number] [place] [address] [place] Immature granulocytes (Bld) [#/Vol] 0.13 10*3/uL High <0.[address] [facility] Comment on above: Order Comment: Speci men Type: BLOOD SPECIMENOrdering Facility: [facility] Address: [address] [place] [address] Performed By: #### 5 7021-8 ####[facility] LABCLIA [id number] [place] [address] [place] Immature granulocytes/100 WBC (Bld) 1.2 % Normal [facility] Comment on above: Order Comment: Speci men Type: BLOOD SPECIMENOrdering Facility: [facility] Address: [address] [place] [address] Performed By: #### 5 7021-8 ####[facility] LABCLIA [id number] [place] [address] [place] Lymphocytes (Bld) [#/Vol] 1.87 10*3/uL Normal 1.00-4.[address] [facility] Comment on above: Order Comment: Speci men Type: BLOOD SPECIMENOrdering Facility: [facility] Address: [address] [place] [address] Performed By: #### 5 7021-8 ####[facility] LABCLIA [id number] [place] [address] [place] Lymphocytes/100 WBC (Bld) 17.4 % Normal [facility] Comment on above: Order Comment: Speci men Type: BLOOD SPECIMENOrdering Facility: [facility] Address: [address] [place] [address] Performed By: #### 5 7021-8 ####[facility] LABIA [id number] [place] [address] [place] MCH (RBC) [Entitic mass] 30.8 pg Normal 26.0-34.[address] [facility] Comment on above: Order Comment: Speci men Type: BLOOD SPECIMENOrdering Facility: [facility] Address: [address] [place] [address] Performed By: #### 5 7021-8 ####[facility] LABIA [id number] [place] [address] [place] MCHC (RBC) [Mass/Vol] 32.7 g/dL Normal 30.5-36.0 [facility] Comment on above: Order Comment: Speci men Type: BLOOD SPECIMENOrdering Facility: [facility] Address: [address] [place] [address] Performed By: #### 5 7021-8 ####[facility] [id number] [place] [address] [place] MCV (RBC) [Entitic vol] 94.2 fL Normal 80.0-100.0 [facility] Comment on above: Order Comment: Speci men Type: BLOOD SPECIMENOrdering Facility: [facility] Address: [address] [place] [address] Performed By: #### 5 7021-8 ####[facility]UN[facility] [id number] [place] [address] [place] Monocytes (Bld) [#/Vol] 0.96 10*3/uL High <0.[address] [facility] Comment on above: Order Comment: Speci men Type: BLOOD SPECIMENOrdering Facility: [facility] Address: [address] [place] [address] Performed By: #### 5 7021-8 ####[facility]UN[facility] [id number] [place] [address] [place] Monocytes/100 WBC (Bld) 8.9 % Normal [facility] Comment on above: Order Comment: Speci men Type: BLOOD SPECIMENOrdering Facility: [facility] Address: [address] [place] [address] Performed By: #### 5 7021-8 ####[facility] LABCLIA [id number] [place] [address] [place] Neutrophils (Bld) [#/Vol] 7.61 10*3/uL High 1.45-7.[address] [facility] Comment on above: Order Comment: Speci men Type: BLOOD SPECIMENOrdering Facility: [facility] Address: [address] [place] [address] Performed By: #### 5 7021-8 ####[facility] LABCLIA [id number] [place] [address] [place] Neutrophils/100 WBC (Bld) 71.0 % Normal [facility] Comment on above: Order Comment: Speci men Type: BLOOD SPECIMENOrdering Facility: [facility] Address: [address] [place] [address] Performed By: #### 5 7021-8 ####[facility] LABCLIA [id number] [place] [address] [place] Nucleated RBC (Bld) [#/Vol] 10*3/uL Normal <0.[address] [facility] Comment on above: Order Comment: Speci men Type: BLOOD SPECIMENOrdering Facility: [facility] Address: [address] [place] [address] Performed By: #### 5 7021-8 ####[facility] LABCLIA [id number] [place] [address] [place] Nucleated RBC/100 WBC (Bld) [Ratio] 0.0 /100 WBC [address] [facility] Comment on above: Order Comment: Speci men Type: BLOOD SPECIMENOrdering Facility: [facility] Address: [address] [place] [address] Performed By: #### 5 7021-8 ####[facility] LABCLIA [id number] [facility] [place] [address] [place] Platelet mean volume (Bld) [Entitic vol] 10.8 fL Normal 9.0-12.[address] [facility] Comment on above: Order Comment: Speci men Type: BLOOD SPECIMENOrdering Facility: [facility] Address: [address] [place] [address] Performed By: #### 5 7021-8 ####[facility] LABCLIA [id number] [place] [address] [place] Platelets (Bld) [#/Vol] 422 10*3/uL High 150-[address] [facility] Comment on above: Order Comment: Speci men Type: BLOOD SPECIMENOrdering Facility: [facility] Address: [address] [place] [address] Performed By: #### 5 7021-8 ####[facility] LABIA [id number] [place] [address] [place] RBC (Bld) [#/Vol] 4.84 10*6/uL Normal 4.20-6.00 [facility] Comment on above: Order Comment: Speci men Type: BLOOD SPECIMENOrdering Facility: [facility] Address: [address] [place] [address] Performed By: #### 5 7021-8 ####[facility] LABCLIA [id number] [place] [address] [place] WBC (Bld) [#/Vol] 10.73 10*3/uL Normal 3.70-11.00 [facility] Comment on above: Order Comment: Speci men Type: BLOOD SPECIMENOrdering Facility: [facility] Address: [address] [place] [address] Performed By: #### 5 7021-8 ####[facility] LABCLIA [id number] [place] [id number] [facility] CNOVon 06-22-2024 CNOV Office Visit ([facility] ) REINA SULLIVAN ([id number]) 1955 M Date Time Provider Department 06/22/24 1:20 PM [facility] During your visit today, we recorded the following information about you: Temperature Pulse Blood pressure 97.8 degrees 88/minute 118/76 Florinda Stevenson, PLASTER PATTERN CASTER.REFRACTORY MIXER 06/22/2024 2:00 PM Signed This is a [...] PAST MEDICAL HISTORY Diagnosis Date Atrial fibrillation ([facility]) Dr. 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 Huston TBI (traumatic brain injury) ([facility]) 2 times PAST SURGICAL HISTORY Procedure Laterality [...] complication, without long-term current use of insulin ([facility]) - ICD9: 250.00, ICD10: E11.9 (primary diagnosis) [...] x da (more content not included)... Normal [facility] 06-22-2024 [facility] ([id number]) 1955 M Date Time Provider Department 06/22/24 [facility] During your visit today, we recorded the following information about you: Rebecca Dumas RN 06/22/2024 4:39 PM Signed Asking for provider to clarify pt's order for [facility]. Does patient need to see a surgeon? Please advise so that [facility] staff can schedule patient appropriately. BROOKLYN Malone Jacqueline A, APRN.[facility] 06/22/2024 5:04 PM Signed Yes. An orthopedic renewals specialist. 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 Comprehensive metabolic 2000 panelon 06-22-2024 Albumin [Mass/Vol] 4.2 g/dL Normal 3.9-4.9 [facility] Comment on above: Order Comment: Lynn paez Type: BLOOD SPECIMENOrdering Facility: [facility] Address: [address] [place] [address] Performed By: #### 2 4323-8, 91777-2, LIPNF, 2276-4 ####[facility] LABCLIA [id number] [place] [address] [place] ALP [Catalytic activity/Vol] 124 U/L High 38-[address] [facility] Comment on above: Order Comment: Lynn paez Type: BLOOD SPECIMENOrdering Facility: [facility] Address: [address] [place] [address] Performed By: #### 2 4323-8, 43423-1, LIPNF, 6-4 ####[facility] LABCLIA [id number] [place] [address] [place] ALT [Catalytic activity/Vol] 19 U/L Normal 10-[address] [facility] Comment on above: Order Comment: Speci men Type: BLOOD SPECIMENOrdering Facility: [facility] Address: [address] [place] [address] Performed By: #### 2 4323-8, 50253-6, LIPNF, 6-4 ####[facility] LABIA [id number] [place] [address] [place] Anion gap [Moles/Vol] 15 mmol/L Normal 8-15 [facility] Comment on above: Order Comment: Speci men Type: BLOOD SPECIMENOrdering Facility: [facility] Address: [address] [place] [address] Performed By: #### 2 4323-8, 71614-9, LIPNF, 6-4 ####[facility] LABIA [id number] [place] [address] [place] AST [Catalytic activity/Vol] 19 U/L Normal 14-[address] [facility] Comment on above: Order Comment: Speci men Type: BLOOD SPECIMENOrdering Facility: [facility] Address: [address] [place] [address] Performed By: #### 2 4323-8, 43390-5, LIPNF, 2276-4 ####[facility] LABIA [id number] [place] [address] [place] Bilirubin [Mass/Vol] 0.7 mg/dL Normal 0.2-1.3 [facility] Comment on above: Order Comment: Speci men Type: BLOOD SPECIMENOrdering Facility: [facility] Address: [address] [place] [address] Performed By: #### 2 4323-8, 92842-3, LIPNF, 2276-4 ####[facility] LABCLIA [id number] [address] [address] [place] Calcium [Mass/Vol] 9.2 mg/dL Normal 8.5-10.2 [facility] Comment on above: Order Comment: Speci men Type: BLOOD SPECIMENOrdering Facility: [facility] Address: [address] [place] [address] Performed By: #### 2 4323-8, 87595-7, LIPNF, 2276-4 ####[facility] LABIA [id number] [place] [address] [place] Chloride [Moles/Vol] 102 mmol/L Normal 98-107 [facility] Comment on above: Order Comment: Speci men Type: BLOOD SPECIMENOrdering Facility: [facility] Address: [address] [place] [address] Performed By: #### 2 4323-8, 68366-1, LIPNF, 2276-4 ####[facility] LABIA [id number] [place] [address] [place] CO2 [Moles/Vol] 23 mmol/L Normal 22-[address] [facility] Comment on above: Order Comment: Speci men Type: BLOOD SPECIMENOrdering Facility: [facility] Address: [address] [place] [address] Performed By: #### 2 4323-8, 02006-9, LIPNF, 2276-4 ####[facility] LABIA [id number] [place] [id number] [place] Creatinine [Mass/Vol] 1.42 mg/dL High 0.73-1.22 [facility] Comment on above: Order Comment: Speci men Type: BLOOD SPECIMENOrdering Facility: [facility] Address: [address] [place] [address] Performed By: #### 2 4323-8, 27999-0, LIPYAMILET, 2276-4 ####[facility] LABIA [id number] [place] [address] [place] Creatinine and Glomerular filtration rate.predicted panel (S/P/Bld) 54 mL/min/1.73m??? Low >=[address] [facility] Comment on above: Order Comment: Lynn paez Type: BLOOD SPECIMENOrdering Facility: [facility] Address: [address] [place] [address] Result Comment: Tatiana mated Glomerular Filtration Rate [...] actual GFR. Performed By: #### 2 4323-8, 63234-9, ANA, 2276-4 ####[facility] LABIA [id number] [place] [address] [place] Glucose [Mass/Vol] 86 mg/dL Normal 74-99 [facility] Comment on above: Order Comment: Lynn paez Type: BLOOD SPECIMENOrdering Facility: [facility] Address: [address] [place] [address] Result Comment: The [place] Diabetes Association (ADA) provides guidance for cutoff [...] Standards of Medical Care in Diabetes 2016, [place] [employer]. Diabetes Care. 2016.39(Suppl 1). Performed By: #### 2 4323-8, 46574-2, LIPNF, 2276-4 ####[facility] LABCLIA [id number] [address] [address] [place] Potassium [Moles/Vol] 4.2 mmol/L Normal 3.7-5.1 [facility] Comment on above: Order Comment: Speci men Type: BLOOD SPECIMENOrdering Facility: [facility] Address: [address] [place] [address] Performed By: #### 2 4323-8, 61065-4, LIPNF, 6-4 ####[facility] LABCLIA [id number] [place] [address] [place] Protein [Mass/Vol] 7.1 g/dL Normal 6.3-8.0 [facility] Comment on above: Order Comment: Speci men Type: BLOOD SPECIMENOrdering Facility: [facility] Address: [address] [place] [address] Performed By: #### 2 4323-8, 04497-3, LIPNF, 6-4 ####[facility] LABCLIA [id number] [place] [address] [place] Sodium [Moles/Vol] 140 mmol/L Normal 136-144 [facility] Comment on above: Order Comment: Speci men Type: BLOOD SPECIMENOrdering Facility: [facility] Address: [address] [place], [place] [address] Performed By: #### 2 4323-8, 74204-1, LIPNF, 2276-4 ####[facility] LABCLIA [id number] [place] [id number] [place] Urea nitrogen [Mass/Vol] 22 mg/dL Normal 9-[address] [facility] Comment on above: Order Comment: Speci men Type: BLOOD SPECIMENOrdering Facility: [facility] Address: [address] [place] [address] Performed By: #### 2 4323-8, 87085-1, LIPNF, 2276-4 ####[facility] LABCLIA [id number] [place] [address] [place] Ferritin SerPl-mCncon 2024 Ferritin [Mass/Vol] 142.0 ng/mL Normal 30.3-565.7 [facility] Comment on above: Order Comment: Jacquesi gege Type: BLOOD SPECIMENOrdering Facility: [facility] Address: [address] [place] [address] Performed By: #### 2 4323-8, 89580-2, LIPNF, 2276-4 ####[facility] LABCLIA [id number] [place] [address] [place] HbA1c (Bld)on 06-22-2024 Average glucose Estimated from glycated hemoglobin (Bld) [Mass/Vol] 126 mg/dL Normal [facility] Comment on above: Order Comment: Lynn [facility] Type: BLOOD SPECIMENOrdering Facility: [facility] Address: [address] [place] [address] Result Comment: eAG: (Estimated average glucose) is a calculated value from HgbA1c and is door to door sales representative of the average blood glucose level in the last 2-3 month period. Performed By: #### 5 5454-3 ####[facility] LABCLIA [id number] [place] [address] [place] HbA1c (Bld) [Mass fraction] 6.0 % High 4.3-5.[address] [facility] Comment on above: Order Comment: Lynn [facility] Type: BLOOD SPECIMENOrdering Facility: [facility] Address: [address] [place] [address] Result Comment: Amer ican Diabetes Association guidelines indicate that patients with HgbA1c in the range 5.7-6.4% are at increased risk for development of diabetes, and intervention by lifestyle modification may be beneficial. HgbA1c greater or equal to 6.5% is considered diagnostic of diabetes. Performed By: #### 5 5454-3 ####[facility] LABCLIA [id number] [address] [address] [place] Iron and Iron binding capaci ty panelon 06-22-2024 Iron [Mass/Vol] 76 ug/dL Normal 41-[address] [facility] Comment on above: Order Comment: Speci men Type: BLOOD SPECIMENOrdering Facility: [facility] Address: [address] [place] [address] Performed By: #### 2 4323-8, 90947-7, LIPNF, 6-4 ####[facility] LABIA [id number] [place] [address] [place] Iron binding capacity [Mass/Vol] 345 ug/dL Normal 232-[address] [facility] Comment on above: Order Comment: Speci men Type: BLOOD SPECIMENOrdering Facility: [facility] Address: [address] [place] [address] Performed By: #### 2 4323-8, 50762-6, LIPNF, 6-4 ####[facility] LABIA [id number] [place] [address] [place] Iron/TIBC [Molar ratio] 22.0 % Normal 15.0-57.0 [facility] Comment on above: Order Comment: Speci men Type: BLOOD SPECIMENOrdering Facility: [facility] Address: [address] [place] [address] Performed By: #### 2 4323-8, 75080-1, LIPNF, 6-4 ####[facility] LABIA [id number] [place] [id number] [place] LIPID PANEL, NONFASTINGon Cholesterol [Mass/Vol] 149 mg/dL Normal <200 [facility] Comment on above: Order Comment: Speci men Type: BLOOD SPECIMENOrdering Facility: [facility] Address: [address] [place] [address] Result Comment: <200 mg/dL, Desirable 200-239 mg/dL, Borderline high >239 mg/dL, High Performed By: #### 2 4323-8, 08397-2, LIPNF, 6-4 ####[facility] LABCLIA [id number] [place] [address] [place] HDL CHOLESTEROL, NF 41 mg/dL Normal >39 [facility] Comment on above: Order Comment: Speci men Type: BLOOD SPECIMENOrdering Facility: [facility] Address: [address] [place] [address] Result Comment: 40-5 9 mg/dL, Acceptable >59 mg/dL, High: Negative risk factor for coronary heart disease <40 mg/dL, Low: Positive risk factor for coronary heart disease Performed By: #### 2 4323-8, 55746-7, LIPNF, 2275-4 ####[facility] LABCLIA [id number] [address] [place] LDL CHOLESTEROL, NF 88 mg/dL Normal <100 [facility] Comment on above: Order Comment: Speci men Type: BLOOD SPECIMENOrdering Facility: [facility] Address: [address] [place] [address] Result Comment: <100 mg/dL, Optimal 100-129 mg/dL, Near optimal/above optimal 130-159 mg/dL, Borderline high 160-189 mg/dL, High >189 mg/dL, Very high Secondary prevention optimal LDL Cholesterol levels are recommended to be < 70 mg/dL Performed By: #### 2 4323-8, 10476-7, LIPNF, 2275-4 ####[facility] LABCLIA [id number] [address] [place] LDL/HDL RATIO, NF 2.15 mg/dL Normal <2.54 [facility] Comment on above: Order Comment: Speci men Type: BLOOD SPECIMENOrdering Facility: [facility] Address: [address] [place] [address] Result Comment: Refe rence: 1. National Cholesterol Education Program ATP III Guideline At-A-Glance Quick Desk Reference: National Heart, Lung, and Blood [place]. National Institutes of Health. 2001: NIH Publication No. 01-3305. 2. An International Atherosclerosis Society position paper: global recommendations for the management of dyslipidemia: executive summary, Atherosclerosis. 2014: 232(2):410-413. Performed By: #### 2 4323-8, 75684-3, LIPNF, 6-4 ####[facility] LABCLIA [id number] [place] [address] [place] NON HDL CHOL, NF 108 mg/dL Normal <130 [facility] Comment on above: Order Comment: Speci men Type: BLOOD SPECIMENOrdering Facility: [facility] Address: [address] [place] [address] Result Comment: <130 mg/dL, Optimal 130-159 mg/dL, Near optimal/above optimal 160-189 mg/dL, Borderline high 190-219 mg/dL, High >219 mg/dL, Very high Secondary prevention optimal non HDL Cholesterol levels are recommended to be <100 mg/dL Performed By: #### 2 4323-8, 41696-8, LIPNF, 2275-4 ####[facility] LABIA [id number] [place] [address] [place] T CHOL/HDL RATIO NF 3.63 mg/dL Normal <5.10 [facility] Comment on above: Order Comment: Lynn paez Type: BLOOD SPECIMENOrdering Facility: [facility] Address: [address] [place] [address] Performed By: #### 2 4323-8, 75817-6, LIPNF, 2275-4 ####[facility] LABCLIA [id number] [place] [address] [place] TRIGLYCERIDES, NF 99 mg/dL Normal <150 [facility] Comment on above: Order Comment: Lynn men Type: BLOOD SPECIMENOrdering Facility: [facility] Address: [address] [place] [address] Result Comment: <150 mg/dL, Normal 150-199 mg/dL, Borderline high 200-499 mg/dL, High >499 mg/dL, Very high Performed By: #### 2 4323-8, 03676-7, LIPNF, 2276-4 ####[facility] LABCLIA [id number] [place] [address] [place] VLDL CHOLESTEROL, NF 20 mg/dL Normal <30 [facility] Comment on above: Order Comment: Speci men Type: BLOOD SPECIMENOrdering Facility: [facility] Address: [address] [place] [address] Performed By: #### 2 4323-8, 85466-9, LIPNF, 6-4 ####[facility] LABCLIA [id number] [place] [address] [place] Magnesium SerPl-mCncon 06-22 Magnesium [Mass/Vol] 2.2 mg/dL Normal 1.7-2.3 [facility] Comment on above: Order Comment: Speci men Type: BLOOD SPECIMENOrdering Facility: [facility] Address: [address] [place] [address] Performed By: #### 1 9123-9 ####[facility] LABIA [id number] [place] [address] [place] URINALYSIS, REFLEX MICROSCOP ICon 06-22-2024 Bacteria LM.HPF (Urine sed) [#/Area] Negative Negative /HPF [facility] Bilirubin Ql (U) Negative Negative [facility] Clarity (Unsp spec) Clear Clear [facility] Color (U) Yellow Yellow [facility] Epithelial cells LM.HPF (Urine sed) [#/Area] None Seen /HPF [facility] Glucose Test strip (U) [Mass/Vol] Negative Negative [facility] Hemoglobin Ql (U) Negative Negative [facility] Hyaline casts (Urine sed) [#/Area] 4-10 /LPF Abnormal 0 /LPF [facility] Interpretation and review of laboratory results Abnormal [facility] Ketones Ql (U) Negative Negative [facility] Leukocyte esterase Test strip Ql (U) Negative Negative [facility] Nitrite Ql (U) Negative Negative [facility] pH (U) 6.0 [pH] NINF - 8.5 [facility] Protein (U) [Mass/Vol] 2+ Abnormal Negative [facility] RBC LM.HPF (Urine sed) [#/Area] 0-2 /HPF 0-2 /HPF [facility] Specific gravity (U) [Rel density] 1.012 1.005 - 1.030 [facility] Urobilinogen Ql (U) 0.2 EU/dL 0.2-1.0 EU/dL [facility] WBC LM.HPF (Urine sed) [#/Area] 0-5 /HPF 0-5 /HPF [facility] This test was developed and its performance characteristics determined by [facility]'s [facility] Pathology and Laboratory Medicine [place] ([facility]). It has not been cleared or approved by the FDA. [facility] is regulated under CLIA as qualified to perform high-complexity testing. This test is used for clinical purposes. It should not be regarded as investigational or for research. [facility] Bacteria LM.HPF (Urine sed) [#/Area] Negative Normal Negative [facility] Comment on above: Order Comment: Speci men Type: URINE SPECIMENOrdering Facility: [facility] Address: [address] [place] [address] Performed By: #### L [id number] ####[facility] LABCLIA [id number] [place] [address] [place] Bilirubin Ql (U) Negative Normal Negative [facility] Comment on above: Order Comment: Speci men Type: URINE SPECIMENOrdering Facility: [facility] Address: [address] [place] [address] Performed By: #### L [id number] ####[facility] LABCLIA [id number] [place] [address] [place] Clarity (Unsp spec) Clear Normal Clear [facility] Comment on above: Order Comment: Speci men Type: URINE SPECIMENOrdering Facility: [facility] Address: [address] [place] [address] Performed By: #### L [id number] ####[facility] LABCLIA [id number] [place] [address] [place] Color (U) Yellow Normal Yellow [facility] Comment on above: Order Comment: Speci men Type: URINE SPECIMENOrdering Facility: [facility] Address: [address] [place] [address] Performed By: #### L [id number] ####[facility] LABCLIA [id number] [place] [address] [place] Epithelial cells LM.HPF (Urine sed) [#/Area] None Seen Normal [facility] Comment on above: Order Comment: Speci men Type: URINE SPECIMENOrdering Facility: [facility] Address: [address] [place] [address] Performed By: #### L [id number] ####[facility] LABCLIA [id number] [place] [address] [place] Glucose Test strip (U) [Mass/Vol] Negative Normal Negative [facility] Comment on above: Order Comment: Speci men Type: URINE SPECIMENOrdering Facility: [facility] Address: [address] [place] [address] Performed By: #### L [id number] ####[facility] LABCLIA [id number] [place] [address] [place] Hemoglobin Ql (U) Negative Normal Negative [facility] Comment on above: Order Comment: Speci men Type: URINE SPECIMENOrdering Facility: [facility] Address: [address] [place] [address] Performed By: #### L [id number] ####[facility] LABCLIA [id number] [place] [address] [place] Hyaline casts (Urine sed) [#/Area] 4-10 /LPF Abnormal 0 /LPF [facility] Comment on above: Order Comment: Speci men Type: URINE SPECIMENOrdering Facility: [facility] Address: [address] [place] [address] Performed By: #### L [id number] ####[facility] LABCLIA [id number] [place] [address] [place] Ketones Ql (U) Negative Normal Negative [facility] Comment on above: Order Comment: Speci men Type: URINE SPECIMENOrdering Facility: [facility] Address: [address] [place] [address] Performed By: #### L [id number] ####[facility] LABCLIA [id number] [place] [address] [place] Leukocyte esterase Test strip Ql (U) Negative Normal Negative [facility] Comment on above: Order Comment: Speci men Type: URINE SPECIMENOrdering Facility: [facility] Address: [address] [place] [address] Performed By: #### L [id number] ####[facility] LABCLIA [id number] [place] [address] [place] Nitrite Ql (U) Negative Normal Negative [facility] Comment on above: Order Comment: Speci men Type: URINE SPECIMENOrdering Facility: [facility] Address: [address] [place] [address] Performed By: #### L [id number] ####[facility] LABCLIA [id number] [place] [address] [place] pH (U) 6.0 [pH] Normal <8.[address] [facility] Comment on above: Order Comment: Speci men Type: URINE SPECIMENOrdering Facility: [facility] Address: [address] [place], [place] [id number] Performed By: #### L [id number] ####[facility] LABCLIA [id number] [place] [address] [place] Protein (U) [Mass/Vol] 2+ Abnormal Negative [facility] Comment on above: Order Comment: Speci men Type: URINE SPECIMENOrdering Facility: [facility] Address: [address] [place] [address] Performed By: #### L [id number] ####[facility] LABIA [id number] [place] [address] [place] RBC LM.HPF (Urine sed) [#/Area] 0-2 /HPF Normal 0-2 /HPF [facility] Comment on above: Order Comment: Speci men Type: URINE SPECIMENOrdering Facility: [facility] Address: [address] [place] [address] Performed By: #### L [id number] ####[facility] [id number] [place] [address] [place] Specific gravity (U) [Rel density] 1.012 Normal 1.005-1.[address] [facility] Comment on above: Order Comment: Speci men Type: URINE SPECIMENOrdering Facility: [facility] Address: [address] [place] [address] Performed By: #### L [id number] ####[facility] LABIA [id number] [place] [address] [place] Urobilinogen Ql (U) 0.2 EU/dL Normal 0.2-1.0 EU/dL [facility] Comment on above: Order Comment: Speci men Type: URINE SPECIMENOrdering Facility: [facility] Address: [address] [place] [address] Performed By: #### L [id number] ####[facility] LABIA [id number] [place] [address] [place] WBC LM.HPF (Urine sed) [#/Area] 0-5 /HPF Normal 0-5 /HPF [facility] Comment on above: Order Comment: Speci men Type: URINE SPECIMENOrdering Facility: [facility] Address: [address] [place] [address] Performed By: #### L [id number] ####[facility] LABIA [id number] [address] [address] [place] XR LUMBAR [...] spine are presented. FINDINGS: There are five bqm-but-jcblxnf lumbar vertebrae. L1 vertebral body compression deformity/age indeterminate fracture is demonstrated, involving the superior endplate.. Questionable L2-3 mild disc space narrowing. There is moderate osteophyte formation, with facet arthrosis in the lower lumbar spine. Kissing spine seen on lateral view. Others: There are vascular calcifications. IMPRESSION L1 vertebral body compression deformity/age indeterminate fracture. Lumbar spine degenerative changes as described above. Tariff Clerk: PSCB Transcribe Date/Time: Jun 22 2024 2:54P Dictated by : BRIAN WILKINSON MD This examination was interpreted and the report reviewed and electronically signed by: BRIAN WILKINSON MD on Jun 22 2024 2:55PM EST [id number] Normal [facility] XR Lumbar spine 3 Viewson [...] spine are presented. FINDINGS: There are five boi-xry-swfxlra lumbar vertebrae. L1 vertebral body compression deformity/age indeterminate fracture is demonstrated, involving the superior endplate.. Questionable L2-3 mild disc space narrowing. There is moderate osteophyte formation, with facet arthrosis in the lower lumbar spine. Kissing spine seen on lateral view. Others: There are vascular calcifications. IMPRESSION L1 vertebral body compression deformity/age indeterminate fracture. Lumbar spine degenerative changes as described above. Tariff Clerk: JOSIAH Transcribe Date/Time: Jun 22 2024 2:54P Dictated by : BRIAN WILKINSON MD This examination was interpreted and the report reviewed and electronically signed by: BRIAN WILKINSON MD on Jun 22 2024 2:55PM EST DIVISION OF RADIOLOGY Provider, [facility] - 06/22/2024 * * *Final Report* * [...] spine are presented. FINDINGS: There are five aoi-egb-ktyqsjl lumbar vertebrae. L1 vertebral body compression deformity/age indeterminate fracture is demonstrated, involving the superior endplate.. Questionable L2-3 mild disc space narrowing. There is moderate osteophyte formation, with facet arthrosis in the lower lumbar spine. Kissing spine seen on lateral view. Others: There are vascular calcifications. IMPRESSION L1 vertebral body compression deformity/age indeterminate fracture. Lumbar spine degenerative changes as described above. Tariff Clerk: [facility]Tim Transcribe Date/Time: Jun 22 2024 2:54P Dictated by : BRIAN WILKINSON MD This examination was interpreted and the report reviewed and electronically signed by: BRIAN WILKINSON MD on Jun 22 2024 2:55PM EST [facility] Radiology Study observation (narrative) Kaitlin Perla XR Lumbar spine 3 ViewsOrder ed By: Cc Provider on 06-22-2024 [facility] Drew 06-16-2024 CNPN Telephone (FAMPWS) REINA SULLIVAN ([id number]) 1955 M Date Time Provider Department 06/16/24 ARIC ZAPIEN During your visit today, we recorded the following information about you: Aric Zapien MD 06/16/2024 8:48 AM Signed Schedule to see me at [facility] in person on 06/21/24. Please make sure they are aware appt they scheduled is at that office and not Mel Aric Zapien MD 06/19/2024 10:50 AM Signed Please call before (I suspect was put in wrong place) Felicita Bolden MA 06/19/2024 11:21 AM Signed Please call pt and ask if pt knows he is scheduled at [facility] Florinda Stevenson APRN.REFRACTORY MIXER 06/22/2024 3:37 PM Signed Please let patient know that he has a lumbar 1 compression fracture of the endplate. I am going to send him to a spine surgeon to review. Please facilitate primaryscheduling Felicita Bolden MA 06/22/2024 4:29 PM Signed Patient notified of results and transferred to district service manager Mecca Summers 06/22/2024 4:43 PM Signed Mel [...] assist with scheduling consultation with [facility] orthopaedic renewals specialist per 06/22/24 telephone encounter. 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 *09/30/2022 Migraine [...] Status:Closed by FELIC[facility]OLDEN [facility] KVNGN [facility] (ENDOSO) REINA SULLIVAN ([id number]) 1955 M Date Time Provider Department 03/21/24 LU FISH During your visit today, we recorded the following information about you: Vanna Flores 03/21/2024 3:31 PM Signed [facility] states that their records show patient has [...] unspecified na*09/30/2022 Left atrial enlargement [I51.7] 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 CNCOon 11-24-2023 CNCO Letter Text [facility] CNPNon 11-24-2023 CNPN Telephone (NAVWST) REINA SULLIVAN ([id number]) 1955 M Date Time Provider Department 11/24/23 HARVEY HAZEL During your visit today, we recorded the following information about you: Harvey Hazel, AIRLINE CAPTAIN 11/24/2023 1:04 PM Signed Nikkie called and spoke with Halima, patient ex in regards to service assistance options in the community. Halima notes that she helps patient " to a certain extent." Halima and Nikkie spoke about [facility] Older Adult Resource Directory. Halima asks that Sw mail patient this guide for him to review and see what services are available in the community. Sw will also attach [facility] Older Adult support program and [facility] information. 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 CNOVon 11-22-2023 CNOV Office Visit (FAMPWS ) REINA SULLIVAN ([id number]) 1955 M Date Time Provider Department 11/22/23 [...] daily No seizures. 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 James [place]: cardiac cath: no disease 09/08/2015 cardiac catheterization [facility] Dr. James: - primary rhythm atrial [...] Lymph 1.00 - 4.00 k/uL 1.57 2.35 [place]% % 9.8 11.3 Abs [place] <0.87 k/uL 0.66 0.98 (H) Eosin% % [...] (more content not included)... Normal [facility] Absolute lymphocyte countOrd ered By: Rakel Hodgson on 06-23-2023 Lymphocytes Auto (Unsp spec) [#/Vol] 2.02 10*3/uL 0.83-4.51 [facility] Automated lymphocyte count a s percentage of total leukocytesOrdered By: Rakel Hodgson on 06-23-2023 Lymphocytes/100 WBC Auto (Unsp spec) 28.9 % 19-41 [facility] Basophil percentageOrdered B y: Rakel Hodgson on 06-23-2023 Basophils/100 WBC (Bld) 0.7 % 0-1 [facility] Chloride [Moles/Vol] 104 mmol/L 98-107 [facility] Eosinophils/100 WBC (Bld) 1.0 % 0-5 [facility] Glucose [Mass/Vol] 99 mg/dL 74-106 [facility] Hemoglobin (Bld) [Mass/Vol] 15.8 g/dL 13.0-16.5 [facility] Monocytes/100 WBC (Bld) 11.7 % 0-10 [facility] Neutrophils (Bld) [#/Vol] 4.0 10*3/uL 2.0-7.7 [facility] Neutrophils/100 WBC (Bld) 57.1 % 47-70 [facility] Potassium [Moles/Vol] 4.2 mmol/L 3.5-5.1 [facility] Sodium [Moles/Vol] 139 mmol/L 136-145 [facility] WBC (Bld) [#/Vol] 7.0 10*3/uL 4.4-11.0 [facility] Determination of erythrocyte mean corpuscular volume (MCV)Ordered By: Rakel Hodgson on 06-23-2023 MCV (RBC) [Entitic vol] 93.6 fL 80-94 [facility] Erythrocyte distribution wid th ratioOrdered By: Rakel Hodgson on 06-23-2023 Erythrocyte distribution width (RBC) [Ratio] 13.0 % 11.6-14.6 [facility] Erythrocyte distribution wid th standard deviationOrdered By: Rakel Hodgson on 06-23-2023 Erythrocyte distribution width (RBC) [Entitic vol] 44.3 fL 35.1-43.9 [facility] Hematocrit Auto (Bld) [Volum e fraction]Ordered By: Rakel Hodgson on 06-23-2023 Hematocrit (Bld) [Volume fraction] 48.6 % 40-54 [facility] Immature granulocytes/100 WB C Auto (Bld)Ordered By: Rakel Hodgson on 06-23-2023 Immature granulocytes/100 WBC (Bld) 0.600 % 0.0-0.9 [facility] Comment on above: IG% - Immature Granu locytes (promyelocytes, myelocytes and metamyelocytes) > 1% indicates that a LEFT SHIFT is Present. Laboratory - Chemistry and C hemistry - challengeOrdered By: Rakel Hodgson on 06-23-2023 CO2 [Moles/Vol] 31.0 mmol/L 21.0-32.0 [facility] Urea nitrogen/Creatinine [Mass ratio] 13.2 mg/mg 10-20 [facility] Laboratory - Hematology and Cell countsOrdered By: Rakel Hodgson on 06-23-2023 MCH (RBC) [Entitic mass] 30.4 pg 27.0-32.0 [facility] MCHC (RBC) [Mass/Vol] 32.5 g/dL 32-36 [facility] Nucleated RBC/100 WBC (Bld) [Ratio] 0 % 0-5 [facility] Platelets (Bld) [#/Vol] 219 10*3/uL 150-450 [facility] No Panel InformationOrdered By: Rakel Hodgson on 06-23-2023 Estimated GFR (MDRD) Amer 56 mL/min >60 [facility] Comment on above: GFR Calc Estimated GFR (MDRD) Non-Af Amer 47 mL/min >60 [facility] Comment on above: Non- GFR Calc Platelet mean volume Hank-Ec ker (Bld) [Entitic vol]Ordered By: Rakel Hodgson on 06-23-2023 Platelet mean volume (Bld) [Entitic vol] 11.4 fL 6.2-12.0 [facility] RBC Auto (Bld) [#/Vol]Ordere d By: Rakel Hodgson on 06-23-2023 RBC (Bld) [#/Vol] 5.19 10*6/uL 4.6-6.2 [facility] Serum or plasma calcium rosalina urement (mass/volume)Ordered By: Rakel Hodgson on 06-23-2023 Calcium [Mass/Vol] 9.1 mg/dL 8.5-10.1 [facility] Serum or plasma creatinine m easurement (mass/volume)Ordered By: Rakel Hodgson on 06-23-2023 Creatinine [Mass/Vol] 1.59 mg/dL 0.70-1.30 [facility] Comment on above: The validity of the calculated GFR & GFRAA in patients over 70 years has not been determined. Clinical correlation is essential. Serum or plasma urea nitroge n measurement (mass/volume)Ordered By: Rakel Hodgson on 06-23-2023 Urea nitrogen [Mass/Vol] 21 mg/dL 7-18 [facility] Thin prep Papanicolaou smear with manual screeningOrdered By: Rakel Hodgson on 06-23-2023 Thin prep Papanicolaou smear with manual screening 4 5-15 [facility] STREP A MOLECULAR (POC)on Procedural Control Valid [facility] Strep A (POCT) Negative Negative [facility] CBC W Auto Differential pane l (Bld)on 09-30-2022 Basophils (Bld) [#/Vol] 0.04 10*3/uL <0.11 k/uL [facility] Basophils/100 WBC (Bld) 0.6 % [facility] Differential cell count method Nom (Bld) Auto [facility] Eosinophils (Bld) [#/Vol] 0.07 10*3/uL <0.46 k/uL [facility] Eosinophils/100 WBC (Bld) 1.0 % [facility] Erythrocyte distribution width (RBC) [Ratio] 13.6 % 11.5 - 15.0 % [facility] Hematocrit (Bld) [Volume fraction] 43.7 % 39.0 - 51.0 % [facility] Hemoglobin (Bld) [Mass/Vol] 14.2 g/dL 13.0 - 17.0 g/dL [facility] Immature granulocytes (Bld) [#/Vol] <0.10 k/uL [facility] Immature granulocytes/100 WBC (Bld) 0.3 % [facility] Lymphocytes (Bld) [#/Vol] 1.57 10*3/uL 1.00 - 4.00 k/uL [facility] Lymphocytes/100 WBC (Bld) 23.3 % [facility] MCH (RBC) [Entitic mass] 31.1 pg 26.0 - 34.0 pg [facility] MCHC (RBC) [Mass/Vol] 32.5 g/dL 30.5 - 36.0 g/dL [facility] MCV (RBC) [Entitic vol] 95.8 fL 80.0 - 100.0 fL [facility] Monocytes (Bld) [#/Vol] 0.66 10*3/uL <0.87 k/uL [facility] Monocytes/100 WBC (Bld) 9.8 % [facility] Neutrophils (Bld) [#/Vol] 4.37 10*3/uL 1.45 - 7.50 k/uL [facility] Neutrophils/100 WBC (Bld) 65.0 % [facility] Nucleated RBC (Bld) [#/Vol] <0.01 k/uL [facility] Nucleated RBC/100 WBC (Bld) [Ratio] 0.0 /100 WBC [facility] Platelet mean volume (Bld) [Entitic vol] 11.4 fL 9.0 - 12.7 fL [facility] Platelets (Bld) [#/Vol] 246 10*3/uL 150 - 400 k/uL [facility] RBC (Bld) [#/Vol] 4.56 10*6/uL 4.20 - 6.0 0 m/uL [facility] WBC (Bld) [#/Vol] 6.73 10*3/uL 3.70 - 11. 00 k/uL [facility] HbA1c (Bld)on 09-30-2022 Average glucose Estimated from glycated hemoglobin (Bld) [Mass/Vol] 131 mg/dL [facility] HbA1c (Bld) [Mass fraction] 6.2 % High 4.3 - 5.6 % [facility] VALPROIC A/DEPAKENEon 2022 Valproate [Mass/Vol] 70.5 ug/mL 50.0 - 100.0 ug/mL [facility] No Panel Informationon 04-26 [facility] Absolute lymphocyte counton 03-06-2022 Lymphocytes Auto (Unsp spec) [#/Vol] 2.57 10*3/uL 0.83-4.51 [facility] Work Phone: Basophil percentageon 2021 Basophils/100 WBC (Bld) 0.5 % 0-1 [facility] Work Phone: Chloride [Moles/Vol] 104 mmol/L 98-107 [facility] Work Phone: Eosinophils/100 WBC (Bld) 1.8 % 0-5 [facility] Work Phone: Glucose [Mass/Vol] 112 mg/dL 74-106 [facility] Work Phone: Comment on above: Fasting Glucose resu lt from 100 to 125 mg/dL suggests IMPAIRED HOMEOSTASIS per A.D.A. criteria. Neutrophils (Bld) [#/Vol] 4.0 10*3/uL 2.0-7.7 [facility] Work Phone: Neutrophils/100 WBC (Bld) 52.2 % 47-70 [facility] Work Phone: Potassium [Moles/Vol] 3.4 mmol/L 3.5-5.1 [facility] Work Phone: Sodium [Moles/Vol] 142 mmol/L 136-145 [facility] Work Phone: WBC (Bld) [#/Vol] 7.7 10*3/uL 4.4-11.0 [facility] Work Phone: [phone] Blood erythrocytes count (nu mber/volume)on 03-06-2022 RBC (Bld) [#/Vol] 4.57 10*6/uL 4.6-6.2 [facility] Work Phone: Blood hemoglobin measurement (mass/volume)on 03-06-2022 Hemoglobin (Bld) [Mass/Vol] 14.7 g/dL 13.0-16.5 [facility] Work Phone: Blood lymphocytes/100 leukoc yteson 03-06-2022 Lymphocytes/100 WBC (Bld) 33.2 % 19-41 [facility] Work Phone: Blood monocytes/100 leukocyt eson 03-06-2022 Monocytes/100 WBC (Bld) 11.8 % 0-10 [facility] Work Phone: Blood platelet mean volumeon 03-06-2022 Platelet mean volume (Bld) [Entitic vol] 10.3 fL 6.2-12.0 [facility] Work Phone: Determination of erythrocyte mean corpuscular volume (MCV)on 03-06-2022 MCV (RBC) [Entitic vol] 93.7 fL 80-94 [facility] Work Phone: Hematocrit Auto (Bld) [Volum e fraction]on 03-06-2022 Hematocrit (Bld) [Volume fraction] 42.8 % 40-54 [facility] Work Phone: Laboratory - Chemistry and C hemistry - challengeon 03-06-2022 CO2 [Moles/Vol] 28.0 mmol/L 21.0-32.0 [facility] Work Phone: Urea nitrogen/Creatinine [Mass ratio] 19.0 mg/mg 10-20 [facility] Work Phone: Laboratory - Hematology and Cell countson 03-06-2022 Erythrocyte distribution width (RBC) [Entitic vol] 43.5 fL 35.1-43.9 [facility] Work Phone: Erythrocyte distribution width (RBC) [Ratio] 12.7 % 11.6-14.6 [facility] Work Phone: Immature granulocytes/100 WBC (Bld) 0.500 % 0.0-0.9 [facility] Work Phone: Comment on above: IG% - Immature Granu locytes (promyelocytes, myelocytes and metamyelocytes) > 1% indicates that a LEFT SHIFT is Present. MCH (RBC) [Entitic mass] 32.2 pg 27.0-32.0 [facility] Work Phone: Nucleated RBC/100 WBC (Bld) [Ratio] 0 % 0-5 [facility] Work Phone: MCHC Auto (RBC) [Mass/Vol]on 03-06-2022 MCHC (RBC) [Mass/Vol] 34.3 g/dL 32-36 [facility] Work [facility]: No Panel Informationon 03-06 Estimated Creatinine Clearance Calc 70.76 ml/min [facility] Work Phone: Estimated GFR (MDRD) Amer 77 mL/min >60 [facility] Work Phone: Comment on above: GFR Calc Estimated GFR (MDRD) Non-Af Amer 64 mL/min >60 [facility] Work Phone: Comment on above: Non- GFR Calc Platelets bldon 03-06-2022 Platelets (Bld) [#/Vol] 230 10*3/uL 150-450 [facility] Work Phone: Serum or plasma calcium rosalina urement (mass/volume)on 03-06-2022 Calcium [Mass/Vol] 9.7 mg/dL 8.5-10.1 [facility] Work Phone: Serum or plasma creatinine m easurement (mass/volume)on 03-06-2022 Creatinine [Mass/Vol] 1.21 mg/dL 0.70-1.30 [facility] Work Phone: Comment on above: The validity of the calculated GFR & GFRAA in patients over 70 years has not been determined. Clinical correlation is essential. Serum or plasma urea nitroge n measurement (mass/volume)on 03-06-2022 Urea nitrogen [Mass/Vol] 23 mg/dL 7-18 [facility] Work Phone: Thin prep Papanicolaou smear with manual screeningon 03-06-2022 Thin prep Papanicolaou smear with manual screening 10 5-15 [facility] Work Phone: No Panel InformationOrdered By: Ccf Provider on 03-12-2021 [facility] No Panel Informationon 03-12 Radiology Study observation (narrative) [facility] XR Ankle - right AP and [...] Impression: 1. No acute fracture or dislocation. Tariff Clerk: JOSIAH Transcribe Date/Time: Mar 12 2021 3:19P Dictated by : COURTNEY MART MD This examination was interpreted and the report reviewed and electronically signed by: COURTNEY MART MD on Mar 12 2021 3:22PM [facility] DIVISION OF RADIOLOGY Provider, [facility] - 03/12/2021 * * *Final Report* [...] Impression: 1. No acute fracture or dislocation. Tariff Clerk: JOSIAH Transcribe Date/Time: Mar 12 2021 3:19P Dictated by : COURTNEY MART MD This examination was interpreted and the report reviewed and electronically signed by: COURTNEY MART MD on Mar 12 2021 3:22PM EST [facility] XR Foot - right AP and Later [...] Impression: 1. No acute fracture or dislocation. Tariff Clerk[facility] Transcribe Date/Time: Mar 12 2021 3:19P Dictated by : COURTNEY MART MD This examination was interpreted and the report reviewed and electronically signed by: COURTNEY MART MD on Mar 12 2021 3:22PM [facility] DIVISION OF RADIOLOGY Provider, [facility] 03/12/2021 * * *Final Report* * * [...] Impression: 1. No acute fracture or dislocation. Tariff Clerk: [facility] Transcribe Date/Time: Mar 12 2021 3:19P Dictated by : COURTNEY MART MD This examination was interpreted and the report reviewed and electronically signed by: COURTNEY MART MD on Mar 12 2021 3:22PM EST [facility] VISUAL FIELD 30-2 OU (BOTH E YES) [facility] Vital Signs Date Time Vital Sign Value Performing Clinician Facility 03-08-2025 13:01-0400 Body temperature 98 [degF] Dr. Aric Zapien MD Work Phone: [facility] 03-08-2025 13:01-0400 Diastolic blood pressure 46 mm[Hg] Dr. Aric Zapien MD Work Phone: [facility] 03-08-2025 13:01-0400 Heart rate 90 /min Dr. Aric Zapien MD Work Phone: [facility] 03-08-2025 13:01-0400 Respiratory rate 18 /min Dr. Aric Zapien MD Work Phone: 0(607)197-562530 [place] [address] 03-08-2025 13:01-0400 SaO2% (BldA) [Mass fraction] 98 % Dr. Aric Zapien MD Work Phone: 2(187)969-772730 [place] [address] 03-08-2025 13:01-0400 Systolic blood pressure 138 mm[Hg] Dr. Aric Zapien MD Work Phone: 0(911)201-063330 [place] [address] 03-08-2025 11:11-0400 Body height 182.[address] Aric Zapien MD Work Phone: 9(707)707-732730 [place] [address] 03-08-2025 11:11-0400 Body mass index (BMI) [Ratio] 30.9 kg/m2 Dr. Aric Zapien MD Work Phone: 7(490)332-058030 [place] [address] 03-08-2025 11:11-0400 Body weight 103.[address] Aric Zapien MD Work Phone: 1(316)538-153730 [place] [address] 07-11-2024 17:10-0500 Body temperature 97.7 [degF] Dr. Aric Zapien MD Work Phone: 8(054)083-990730 [place] [address] 07-11-2024 17:10-0500 Diastolic blood pressure 88 mm[Hg] Dr. Aric Zapien MD Work Phone: 5(007)247-511430 [place] [address] 07-11-2024 17:10-0500 Heart rate 100 /min Dr. Aric Zapien MD Work Phone: 1(368)590-187730 [place] [address] 07-11-2024 17:10-0500 Respiratory rate 16 /min Dr. Aric Zapien MD Work Phone: 5(994)234-297430 [place] [address] 07-11-2024 17:10-0500 SaO2% (BldA) [Mass fraction] 97 % Dr. Aric Zapien MD Work Phone: 5(863)259-133630 [place] [address] 07-11-2024 17:10-0500 Systolic blood pressure 127 mm[Hg] Dr. Aric Zapien MD Work Phone: 6(085)639-975130 [place] [address] 07-10-2024 10:00-0500 Inhaled oxygen flow rate 2 L/min Dr. Aric Zapien MD Work Phone: [facility] 07-09-2024 15:34-0500 Body height 182.[address] Aric Zapien MD Work Phone: [facility] 07-09-2024 15:34-0500 Body weight 97.[address] Aric Zapien MD Work Phone: [facility] 07-09-2024 11:44-0500 Body mass index (BMI) [Ratio] 29.2 kg/m2 Dr. Aric Zapien MD Work Phone: [facility] 06-22-2024 13:29-0500 Body temperature 97.81 [degF] Florinda Suppan PLASTER PATTERN CASTER.REFRACTORY MIXER Work Phone: [facility] 06-22-2024 13:29-0500 Diastolic blood pressure 76 mm[Hg] Florinda Suppan PLASTER PATTERN CASTER.REFRACTORY MIXER Work Phone: [facility] 06-22-2024 13:29-0500 Heart rate 88 /min Florinda Suppan PLASTER PATTERN CASTER.REFRACTORY MIXER Work Phone: [facility] 06-22-2024 13:29-0500 SaO2% (BldA) [Mass fraction] 99 % Florinda Suppan PLASTER PATTERN CASTER.REFRACTORY MIXER Work Phone: [facility] 06-22-2024 13:29-0500 Systolic blood pressure 118 mm[Hg] Florinda Suppan PLASTER PATTERN CASTER.REFRACTORY MIXER Work Phone: [facility] 11-22-2023 15:27-0400 Body mass index (BMI) [Ratio] 30.65 kg/m2 NA Max PA-C Work Phone: [facility] 11-22-2023 15:27-0400 Body weight 102.51 kg NA Max PA-C Work Phone: [facility] 11-22-2023 15:27-0400 Diastolic blood pressure 80 mm[Hg] NA Max PA-C Work Phone: [facility] 11-22-2023 15:27-0400 Heart rate 85 /min NA Max PA-C Work Phone: [facility] 11-22-2023 15:27-0400 Respiratory rate 15 /min NA Max PA-C Work Phone: [facility] 11-22-2023 15:27-0400 SaO2% (BldA) [Mass fraction] 96 % NA Max PA-C Work Phone: [facility] 11-22-2023 15:27-0400 Systolic blood pressure 128 mm[Hg] NA Max PA-C Work Phone: [facility] 06-23-2023 15:04-0500 Body height 187.[address] Aric Zapien Work Phone: [facility] 06-23-2023 15:04-0500 Body mass index (BMI) [Ratio] 28.5 kg/m2 Dr. Aric Zapien Work Phone: [facility] 06-23-2023 15:04-0500 Body weight 100.[address] Aric Zapien Work Phone: [facility] 06-23-2023 15:04-0500 Diastolic blood pressure 60 mm[Hg] Dr. Aric Zapien Work Phone: [facility] 06-23-2023 15:04-0500 Heart rate 67 /min Dr. Aric Zapien Work Phone: [facility] 06-23-2023 15:04-0500 Respiratory rate 18 /min Dr. Aric Zapien Work Phone: [facility] 06-23-2023 15:04-0500 SaO2% (BldA) [Mass fraction] 97 % Dr. Aric Zapien Work Phone: [facility] 06-23-2023 15:04-0500 Systolic blood pressure 80 mm[Hg] Dr. Aric Zapien Work Phone: [facility] 12-07-2022 13:46-0400 Body temperature 98.4 [degF] Sarah MARIE Work Phone: [facility] 12-07-2022 13:46-0400 Body weight 101.7 kg Krislyn Aberegg PA Work Phone: [facility] 12-07-2022 13:46-0400 Diastolic blood pressure 76 mm[Hg] Krislyn Aberegg PA Work Phone: [facility] 12-07-2022 13:46-0400 Heart rate 60 /min Krislyn Aberegg PA Work Phone: [facility] 12-07-2022 13:46-0400 Respiratory rate 18 /min Krislyn Aberegg PA Work Phone: [facility] 12-07-2022 13:46-0400 SaO2% (BldA) [Mass fraction] 96 % Krislyn Aberegg PA Work Phone: [facility] 12-07-2022 13:46-0400 Systolic blood pressure 112 mm[Hg] Krislyn Aberegg PA Work Phone: [facility] 09-30-2022 13:13-0400 Body height 182.9 cm Aric Zapien MD Work Phone: [facility] 09-30-2022 13:13-0400 Body weight 103.87 kg Aric Zapien MD Work Phone: [facility] 09-30-2022 13:13-0400 Diastolic blood pressure 100 mm[Hg] Aric Zapien MD Work Phone: [facility] 09-30-2022 13:13-0400 Heart rate 88 /min Aric Zapien MD Work Phone: [facility] 09-30-2022 13:13-0400 SaO2% (BldA) [Mass fraction] 97 % Aric Zapien MD Work Phone: [facility] 09-30-2022 13:13-0400 Systolic blood pressure 152 mm[Hg] Aric Zapien MD Work Phone: [facility] 04-01-2022 10:36-0400 Body weight 99.79 kg Aric Zapien MD Work Phone: [facility] 04-01-2022 10:36-0400 Diastolic blood pressure 62 mm[Hg] Aric Zapien MD Work Phone: [facility] 04-01-2022 10:36-0400 Heart rate 97 /min Aric Zapien MD Work Phone: [facility] 04-01-2022 10:36-0400 SaO2% (BldA) [Mass fraction] 100 % Aric Zapien MD Work Phone: [facility] 04-01-2022 10:36-0400 Systolic blood pressure 102 mm[Hg] Aric Zapien MD Work Phone: [facility] 03-09-2022 15:09-0400 Body height 184 cm NA Max PA-C Work Phone: [facility] 03-09-2022 15:09-0400 Body weight 101.15 kg NA Max PA-C Work Phone: [facility] 03-09-2022 15:09-0400 Diastolic blood pressure 74 mm[Hg] NA Max PA-C Work Phone: [facility] 03-09-2022 15:09-0400 Heart rate 82 /min NA Max PA-C Work Phone: [facility] 03-09-2022 15:09-0400 Respiratory rate 12 /min NA Max PA-C Work Phone: [facility] 03-09-2022 15:09-0400 SaO2% (BldA) [Mass fraction] 98 % NA Max PA-C Work Phone: [facility] 03-09-2022 15:09-0400 Systolic blood pressure 104 mm[Hg] NA Max PA-C Work Phone: [facility] 03-08-2022 15:33-0400 Body weight 99.79 kg Aric Huston Jr., MD Work Phone: [facility] 03-08-2022 15:33-0400 Diastolic blood pressure 72 mm[Hg] Aric Huston Jr., MD Work Phone: [facility] 03-08-2022 15:33-0400 Heart rate 93 /min Aric Huston Jr., MD Work Phone: [facility] 03-08-2022 15:33-0400 Respiratory rate 12 /min Aric Huston Jr., MD Work Phone: [facility] 03-08-2022 15:33-0400 SaO2% (BldA) [Mass fraction] 98 % Aric Huston Jr., MD Work Phone: [facility] 03-08-2022 15:33-0400 Systolic blood pressure 100 mm[Hg] Aric Huston Jr., MD Work Phone: [facility] 03-06-2022 12:58-0400 Diastolic blood pressure 90 mm[Hg] [facility] Work Phone: 03-06-2022 12:58-0400 Heart rate 80 /min [facility] Work Phone: 03-06-2022 12:58-0400 Respiratory rate 16 /min [facility] Work Phone: 03-06-2022 12:58-0400 SaO2% (BldA) [Mass fraction] 98 % [facility] Work Phone: 03-06-2022 12:58-0400 Systolic blood pressure 116 mm[Hg] [facility] Work Phone: 03-06-2022 10:03-0400 Body height 187.96 cm [facility] Work Phone: 03-06-2022 10:03-0400 Body mass index (BMI) [Ratio] 28.9 kg/m2 [facility] Work Phone: 03-06-2022 10:03-0400 Body temperature 97.1 [degF] [facility] Work Phone: 03-06-2022 10:03-0400 Body weight 102.1 kg [facility] Work Phone: 09-24-2021 15:24-0400 Body weight 102.51 kg Aric Zapien MD Work Phone: [facility] 09-24-2021 15:24-0400 Diastolic blood pressure 82 mm[Hg] Aric Zapien MD Work Phone: [facility] 09-24-2021 15:24-0400 Heart rate 88 /min Aric Zapien MD Work Phone: [facility] 09-24-2021 15:24-0400 Systolic blood pressure 122 mm[Hg] Aric Zapien MD Work Phone: [facility] Encounters Encounter Date Encounter Type Care Provider Facility Start: 03-08-2025 End: 03-08-2025 Emergency department patient visit Dr. Liza Cho MD -Emergency Department Work Phone: Start: 01-31-2025 ambulatory Jigna ALMENDAREZ Facili ty:[facility] Start: 01-31-[address] Jigna Brantley MD -[facility] Work Phone: Start: 01-21-2025 End: 01-21-[address] Aric Zapien MD Work Phone: -[facility] Start: 01-21-2025 End: 01-21-[address] Jigna Brantley MD -[facility] Work Phone: Start: 01-21-[address] Jigna Brantley MD -[facility] Work Phone: Start: 01-21-2025 End: 01-21-2025 ambulatory Jigna ALMENDAREZ Facility:[facility] Start: 01-10-2025 ambulatory Jigna ALMENDAREZ Facili ty:[facility] Start: 01-10-[address] Jigna Brantley MD -[facility] Work Phone: Start: 01-02-2025 ambulatory Jignajoe Bernardoa TANESHA Facili ty:[facility] Start: 01-02-[address] Jigna Brantley MD -[facility] Work Phone: Start: 11-27-2024 End: 11-27-[address] Aric Zapien MD Work Phone: -[facility] Start: 11-27-2024 End: 11-27-[address] Jigna Brantley MD -[facility] Work Phone: Start: 11-27-2024 End: 11-27-2024 ambulatory Jignabailey Bernardoa OLS Facility:[facility] Start: 10-31-2024 ambulatory Jigna Tovaa OLS Facili ty:[facility] Start: 10-25-2024 End: 10-25-2024 Telephone encounter Aric Zapien MD Work Phone: [facility] Comment on above: Letter (No show #2) Start: 10-23-2024 ambulatory Jignabailey Bernardoa OLS Facili ty:[facility] Start: 09-26-2024 End: 09-26-[address] Aric Zapien MD Work Phone: [facility] Work Phone: Start: 09-26-2024 End: 09-26-[address] Jigna Brantley MD -[facility] Start: 09-26-2024 End: 09-26-2024 ambulatory Jignajoe Bernardoa TANESHA Facility:[facility] Start: 08-27-2024 End: 08-27-[address] Aric Zapien MD Work Phone: [facility] Work Phone: Start: 08-27-2024 End: 08-27-[address] Jigna Brantley MD -[facility] Start: 08-27-2024 End: 08-27-2024 ambulatory Jigna ALMENDAREZ Facility:[facility] Start: 07-23-2024 ambulatory Aric Zapien Facility:[facility] Start: 07-23-[address] Jigna Brantley MD -[facility] Start: 07-16-2024 End: 08-07-2024 Telephone encounter Aric Zapien MD Work Phone: [facility] Comment on above: Patient Update Start: 07-16-2024 ambulatory Jigna ALMENDAREZ Facili ty:[facility] Start: 07-16-[address] Jigna Brantley MD -[facility] Start: 07-12-2024 ambulatory Jigna ALMENDAREZ Facili ty:[facility] Start: 07-12-[address] Jigna Brantley MD -[facility] Start: 07-11-2024 Non-patient / Non-visit Dr. Yann Katz [facility] Work Phone: Start: 07-10-2024 Non-patient / Non-visit Dr. Yann Katz [facility] Work Phone: Start: 07-10-2024 ambulatory Estuardo Irby Facility:[facility] Start: 07-10-2024 Non-patient / Non-visit Dr. Cynthia Irby MD -[facility] Start: 07-09-2024 End: 07-11-2024 Evaluation and management of inpatient Dr. Yann Ascencio DO -[facility] Work Phone: Start: 07-09-2024 ambulatory Yann Ascencio Facility:[facility] Start: 07-09-2024 Non-patient / Non-visit Dr. Yann Katz [facility] Work Phone: Start: 06-26-2024 End: 06-26-2024 Telephone encounter Damaris Sotelo MD Work Phone: [facility] Start: 06-25-2024 End: 06-25-2024 Telephone encounter Florinda Stevenson APRN.REFRACTORY MIXER Work Phone: [facility] [place] Comment on above: Results Start: 06-22-2024 End: 06-22-2024 Telephone encounter Aric Zapien MD Work Phone: [facility] Comment on above: Patient Question Start: 06-22-2024 End: 06-22-2024 Office outpatient visit 15 minutes Florinda Stevenson APRN.REFRACTORY MIXER Work Phone: [facility] Comment on above: Type 2 diabetes jorge itus without complication, without long- term current use of insulin (HCC) (Primary Dx); Fall, initial encounter; Screening for lipid disorders; Acute low back pain without sciatica, unspecified back pain laterality Start: 06-22-2024 End: 06-22-2024 ambulatory ARIC ZAPIEN Facility:[facility] Start: 06-16-2024 End: 06-22-2024 Telephone encounter Aric Zapien MD Work Phone: [facility] [place] Comment on above: Patient Update Start: 06-13-2024 End: 06-14-2024 Refill Aric Zapien MD Work Phone: [address] [place] [address] Comment on above: Refill Request Start: 05-28-2024 End: 05-28-2024 ambulatory Mayuri Perez MA [facility] Start: 05-28-2024 End: 05-28-2024 Patient encounter procedure Mayuri Perez MA [facility] Comment on above: Population Health Na vigation Outreach ([facility]CAIP OUTREACH ) Start: 04-18-2024 End: 04-18-2024 ambulatory Edward Pleitez [facility] Work Phone: [facility] Start: 04-18-2024 End: 04-18-2024 [facility] Start: 03-21-2024 End: 03-23-2024 Telephone encounter Lu Fish APRN.REFRACTORY MIXER Work Phone: Endocrinology Start: 03-07-2024 End: 03-07-2024 ambulatory Jordy Hernandez MA [facility] Start: 03-07-2024 End: 03-07-2024 Patient encounter procedure Jordy Hernandez MA [facility] Comment on above: Population Health Na vigation Out[facility] Start: 12-15-2023 ambulatory Moshe Jaison Aristides HAWKINS [facility] Start: 12-15-2023 Patient encounter procedure Moshe Friedman MA [facility] Comment on above: Population Health Na vigation Outreach ([place]-AWV) Start: 11-24-2023 Telephone encounter Harvey HASSAN [facility] Start: 11-22-2023 End: 11-22-2023 ambulatory RENUKA MAX Facility:[facility] Start: 11-22-2023 End: 11-22-2023 Patient encounter procedure Jaison Max PA-C Work Phone: [facility] Comment on above: 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 Aric Zapien Work Phone: [facility] Work Phone: Start: 06-23-2023 End: 06-23-[address] Aric Zapien Work Phone: [facility] Work Phone: Start: 12-07-2022 End: 12-07-2022 Patient encounter procedure Sarah MARIE Work Phone: [facility] Comment on above: Sore throat (Primary Dx); URI, acute Start: 09-30-2022 End: 09-30-2022 Patient encounter procedure Aric Zapien MD Work Phone: [facility] Comment on above: Seizures (HCC) [...] 06-18-2022 Refill Aric Zapien MD Work Phone: [facility] Comment on above: Refill Request Start: 06-11-2022 ambulatory Leanna Benavidez RN [facility] Comment on above: DESI CEE RN ( Medication Adherence review per request of payer) Start: 04-27-2022 Telephone encounter Aric Huston MD Work Phone: Neurology Comment on above: Results Start: 04-26-2022 End: 04-26-2022 Subsequent hospital visit by physician [facility] (I-Stat/1.5t) Work Phone: Radiology Comment on [...] keratitis, bilateral Start: 04-03-2022 Telephone encounter Jaison Lauren Mansoor PERRY Work Phone: [facility] Comment on above: Results Start: 04-02-2022 Telephone encounter Aric Huston MD Work Phone: Neurology Comment on above: Orders Start: 04-01-2022 End: 04-01-2022 Patient encounter procedure Aric Zapien MD Work Phone: [facility] Comment on above: Permanent atrial fib rillation (HCC) (Primary Dx); Seizures (HCC); Primary pulmonary HTN (HCC); Primary hypertension; Mixed hyperlipidemia; Type 2 diabetes mellitus without complication, without long-term current use of insulin (HCC); History of thyroiditis; Enlarged thoracic aorta (HCC); Screening for AAA (abdominal aortic aneurysm) Start: 03-15-2022 Telephone encounter Jaison Leonidas Max PA-C Work Phone: [facility] Comment on above: Orders Start: 03-09-2022 End: 03-09-2022 Patient encounter procedure Jaison Leonidas Max PA-C Work Phone: [facility] Comment on above: [facility] (Primary Dx); 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 [...] 03-06-2022 End: 03-06-2022 Emergency department [facility] Start: 03-04-2022 Refill Aric Zapien MD Work Phone: [facility] Comment on above: Refill Request Start: 02-23-2022 ambulatory Joceline Waldron RN [facility] Comment on above: ACM COLEMAN RN ( SPC/SUPD rev. per request [facility]) Start: 09-24-2021 End: 09-24-2021 Patient encounter procedure Aric Zapien MD Work Phone: [facility] Comment on above: Permanent atrial [...] Zapien MD Work Phone: Internal [facility] [place] Start: 03-12-2021 End: 03-12-2021 Subsequent hospital visit by physician [facility] Work Phone: Radiology Comment on above: Acute right ankle pa in [M25.571] Procedures Date Procedure Procedure Detail Performing Clinician Start: 03-08-2025 CT cervical spine wi thout contrast Dr. Aric Zapien MD Work Phone: Start: 03-08-2025 CT of head without contrast Dr. Aric Zapien MD Work Phone: Start: 01-10-2025 Urnls dip stick/tabl et reagent auto microscopy Dr. Aric Zapien MD Work Phone: Start: 01-10-[address] Rico Zapien MD Work Phone: Start: 07-23-2024 Measurement of renal function Dr. [...] Gutierrez.RESULTS READ BACK BY . Start: 11-22-2023 PFIZER-BIONTECH COVI D-19 VACCINE ( SEASON) AGE 12+ YR M Leonidas Max PA-C Work Phone: Start: 11-22-2023 Adult depression scr eening assessment [facility] [place] Work Phone: Start: 12-07-2022 STREP A MOLECULAR (POC) Mikki Rodriguez APRN.REFRACTORY MIXER Work Phone: Start: 04-26-2022 Mra head w/o [...] RSV Vaccine (1 - 1-dose 75+ series) [facility] Start: 09-24-2026 PROSTATE CANCER SCREENING DISCUSSION PROSTATE CANCER SCREENING DISCUSSION [facility] Start: 09-24-2026 Prostate specific antigen measurement Prostate Cancer Screening Discussion [facility] Start: 06-22-2025 Annual PCP Team Chronic Disease Visit Annual PCP Team Chronic Disease Visit [facility] Start: 06-22-2025 BP Controlled (<130/80) BP Controlled (<130/80) [facility] in Start: 06-22-2025 Complete blood count Hemoglobin/Hematocrit [facility] Start: 06-22-2025 Creatinine measurement Serum Creatinine [facility] Start: 06-22-2025 Hepatitis B screening Urine Albumin:Creatinine Ratio [facility] Start: 06-22-2025 Hepatitis B surface antibody level LDL Cholesterol [facility] Start: 03-08-2025 [facility] Start: 01-28-2025 Influenza vaccination Influenza Vaccine (Season Ended) [facility] Start: 12-20-2024 Hemoglobin A1c measurement HbA1C [facility] Start: 11-21-2024 Annual PCP Team Chronic Disease Visit Annual PCP Team Chronic Disease Visit [facility] Start: 11-21-2024 Depression Screening Depression Screening [facility] Start: 11-21-2024 Diabetic foot examination Diabetic Foot Exam [facility] Start: 07-12-2024 End: 07-12-2024 Patient encounter procedure 07/12/2024 1:20 PM EST Office Visit [facility] [place] [address] [place] [address] Florinda Stevenson APRN.REFRACTORY MIXER [address] [place] [id number] 2 week follow up Family [facility] Comment on above: 2 week follow up Start: 07-11-2024 Patient discharge [facility] Start: 07-10-2024 Care planning and problem solving actions [facility] Start: 07-10-2024 [facility] Start: 07-10-2024 End: 07-10-2024 Patient encounter procedure [facility] [employer] [employer] Comment on above: Lumbar x-ray needs order L1 Fx Start: 07-10-2024 Oxygen therapy [facility] Start: 07-09-2024 Care planning and problem solving actions [facility] Start: 07-09-2024 End: 07-09-2024 Following clinical pathway protocol [facility] Start: 07-09-2024 Assessment of risk of venous thromboembolism [facility] Start: 07-09-2024 Care regimes management [facility] Start: 07-09-2024 Insertion of catheter into peripheral vein [facility] Start: 07-09-2024 Measuring intake and output [facility] Start: 07-09-2024 Notification of physician [facility] Start: 07-09-2024 Providing care according to standard [facility] Start: 07-09-2024 Provision of activity privileges [facility] Start: 07-09-2024 Referral to occupational therapist [facility] Start: 07-09-2024 Referral to service [facility] Start: 07-09-2024 End: 07-09-2024 [facility] Start: 07-09-2024 Admission procedure [facility] Start: 07-09-2024 Patient referral to dietitian [facility] Start: 06-22-2024 End: 09-21-2024 CBC W Auto Differential panel - Blood [facility] Comment on above: Expected: 06/22/2024, Expires: Start: 06-22-2024 End: 09-21-2024 Comprehensive metabolic 2000 panel - Serum or Plasma [facility] Comment on above: Expected: 06/22/2024, Expires: Start: 06-22-2024 End: 09-21-2024 Ferritin [Mass/volume] in Serum or Plasma [facility] Comment on above: Expected: 06/22/2024, Expires: Start: 06-22-2024 End: 09-21-2024 Hemoglobin A1c in Blood [facility] Work Phone: Comment on above: Expected: 06/22/2024, Expires: Start: 06-22-2024 End: 09-21-2024 Iron and Iron binding capacity panel - Serum or Plasma [facility] Comment on above: Expected: 06/22/2024, Expires: Start: 06-22-2024 End: 09-21-2024 LIPID PANEL, NONFASTING [facility] Comment on above: Expected: 06/22/2024, Expires: Start: 06-22-2024 End: 09-21-2024 Magnesium [Mass/volume] in Serum or Plasma [facility] Comment on above: Expected: 06/22/2024, Expires: Start: 06-22-2024 End: 09-21-2024 Microalbumin/Creatinine [Mass Ratio] in Urine [facility] Comment on above: Expected: 06/22/2024, Expires: Start: 06-21-2024 End: 06-21-2024 Patient encounter procedure 06/21/2024 11:00 AM EST Office Visit [facility] [id number] [place] [address] Aric Zapien MD [address] [place] [address] FALL ON ICE Family [facility] Comment on above: fall Start: 05-30-2024 Advance Directive Discussion Advance Directive Discussion [facility] Start: 05-25-2024 End: 05-25-2024 Patient encounter procedure [facility] Comment on above: 6 month follow up 6 month follow up - HTN focus Jodie Start: 05-24-2024 Annual PCP Team Chronic Disease Visit Annual PCP Team Chronic Disease Visit [facility] Start: 05-24-2024 BP Controlled (<130/80) BP Controlled (<130/80) [facility] Start: 05-24-2024 Complete blood count Hemoglobin/Hematocrit [facility] Start: 05-24-2024 Creatinine measurement Serum Creatinine [facility] Start: 05-24-2024 Hepatitis B screening Urine Albumin:Creatinine Ratio [facility] Start: 05-24-2024 Hepatitis B surface antibody level LDL Cholesterol [facility] Start: 02-22-2024 End: 05-23-2024 Hemoglobin A1c in Blood HEMOGLOBIN A1C Lab Routine Type 2 diabetes mellitus without complication, without long-term current use of insulin (HCC) Expected: 02/22/2024, Expires: 05/23/2024 [facility] Comment on above: Expected: 02/22/2024, Expires: Start: 01-29-2024 Covid-19 Vaccine ( season) Covid-19 Vaccine () [facility] Start: 01-29-2024 Influenza vaccination Influenza Vaccine (#1) [facility] Start: 12-08-2023 BP CONTROLLED (<130/80) BP CONTROLLED (<130/80) [facility] Start: 11-23-2023 Hemoglobin A1c measurement HbA1C [facility] Start: 11-22-2023 End: 11-22-2023 Patient encounter procedure 11/22/2023 3:40 PM EDT Office Visit [facility] [place] [address] [place] [id number] Jaison Max PA-C [address] [place] [address] 6 mth f/u [facility] Comment on above: 6 mth f/u Start: 11-22-2023 End: 02-21-2024 CBC W Auto Differential panel - Blood COMPLETE BLOOD COUNT AND DIFFERENTIAL Lab Routine Seizures (HCC) Mitral valve insufficiency, unspecified etiology Non-rheumatic tricuspid valve insufficiency Left atrial enlargement 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 (HCC) retirement current use of 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 Pulmonary hypertension (HCC) Enlarged thoracic aorta (HCC) Primary hypertension Chronic renal failure (CRF), stage 3a (HCC) Type 2 diabetes mellitus without complication, without long-term current use of insulin (HCC) Adjustment disorder with mixed emotional features Anxiety state Expected: 11/22/2023, Expires: 02/21/2024 [facility] Work Phone: Comment on above: Expected: 11/22/2023, Expires: Start: 11-22-2023 End: 02-21-2024 Comprehensive metabolic 2000 panel - Serum or Plasma COMPREHENSIVE METABOLIC PANEL Lab Routine Seizures (HCC) Mitral valve insufficiency, unspecified etiology Non-rheumatic tricuspid valve insufficiency Left atrial enlargement 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 Pulmonary hypertension (HCC) Enlarged thoracic aorta (HCC) Primary hypertension Mixed hyperlipidemia Chronic renal failure (CRF), stage 3a (HCC) Type 2 diabetes mellitus without complication, without long-term current use of insulin (HCC) Adjustment disorder with mixed emotional features Anxiety state Expected: 11/22/2023, Expires: 02/21/2024 [facility] Comment on above: Expected: 11/22/2023, Expires: Start: 11-22-2023 End: 02-21-2024 Lipid 1996 panel - Serum or Plasma LIPID PANEL BASIC Lab Routine Mitral valve insufficiency, unspecified etiology Non-rheumatic tricuspid valve insufficiency Left atrial enlargement 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 Pulmonary hypertension (HCC) Enlarged thoracic aorta (HCC) Primary hypertension Mixed hyperlipidemia Type 2 diabetes mellitus without complication, without long-term current use of insulin (HCC) Expected: 11/22/2023, Expires: 02/21/2024 [facility] Comment on above: Expected: 11/22/2023, Expires: Start: 10-15-2023 ANNUAL PCP TEAM CHRONIC DISEASE VISIT ANNUAL PCP TEAM CHRONIC DISEASE VISIT [facility] Start: 10-01-2023 3 comp foot exam completed DIABETIC FOOT EXAM [facility] Start: 10-01-2023 ANNUAL PCP TEAM CHRONIC DISEASE VISIT ANNUAL PCP TEAM CHRONIC DISEASE VISIT [facility] Start: 10-01-2023 Diabetic foot examination Diabetic Foot Exam [facility] Start: 10-01-2023 Urine microalbumin profile [facility] Comment on above: Postponed from 01/04/1976 (Declined at t his time) Start: 09-23-2023 Covid-19 Vaccine () Covid-19 Vaccine () [facility] Start: 05-30-2023 Advance Directive Discussion Advance Directive Discussion [facility] Start: 05-30-2023 Behavioral Health Screening Behavioral Health Screening [facility] Start: 04-12-2023 Glaucoma screening Dilated Retinal Exam [facility] Start: 04-12-2023 Hepatitis C antibody, confirmatory test DILATED RETINAL EXAM [facility] Start: 04-02-2023 Hemoglobin A1c/Hemoglobin.total in Blood HBA1C [facility] Start: 04-01-2023 ANNUAL PCP TEAM CHRONIC DISEASE VISIT ANNUAL PCP TEAM CHRONIC DISEASE VISIT [facility] Start: 04-01-2023 BP CONTROLLED (<130/80) BP CONTROLLED (<130/80) [facility] Start: 04-01-2023 Hepatitis B screening URINE ALBUMIN:CREATININE RATIO [facility] Start: 04-01-2023 Hepatitis B surface antibody level LDL CHOLESTEROL [facility] Start: 03-09-2023 ANNUAL PCP TEAM CHRONIC DISEASE VISIT ANNUAL PCP TEAM CHRONIC DISEASE VISIT [facility] Start: 03-09-2023 BP CONTROLLED (<130/80) BP CONTROLLED (<130/80) [facility] Start: 03-08-2023 BP CONTROLLED (<130/80) BP CONTROLLED (<130/80) [facility] Start: 01-28-2023 Covid-19 Vaccine () Covid-19 Vaccine () [facility] Start: 01-28-2023 Influenza vaccination [facility] Start: 12-07-2022 End: 12-21-2022 Influenza virus A and B RNA and SARS-CoV-2 (COVID-19) N gene panel - Respiratory specimen by CRYSTAL with probe detection [facility] Work Phone: Comment on above: Expected: 12/07/2022, Expires: Start: 09-30-2022 End: 11-30-2022 Comprehensive metabolic 2000 panel - Serum or Plasma [facility] Work Phone: Comment on above: Expected: 09/30/2022, Expires: Start: 09-30-2022 End: 11-30-2022 T4/FTI/T4U [facility] Work Phone: Comment on above: Expected: 09/30/2022, Expires: Start: 09-30-2022 End: 11-30-2022 Thyrotropin [Units/volume] in Serum or Plasma [facility] Work Phone: Comment on above: Expected: 09/30/2022, Expires: Start: 09-30-2022 End: 11-30-2022 Triiodothyronine (T3) [Mass/volume] in Serum or Plasma [facility] Work Phone: Comment on above: Expected: 09/30/2022, Expires: Start: 09-29-2022 Hemoglobin A1c/Hemoglobin.total in Blood HBA1C [facility] Start: 09-24-2022 ANNUAL PCP TEAM CHRONIC DISEASE VISIT ANNUAL PCP TEAM CHRONIC DISEASE VISIT [facility] Start: 06-09-2022 End: 08-09-2022 Hemoglobin A1c in Blood HGB A1C Lab Routine Hyperglycemia Expected: 06/09/2022, Expires: 08/09/2022 [facility] Work Phone: Comment on above: Expected: 06/09/2022, Expires: 3 Start: 05-30-2022 ADVANCE DIRECTIVE DISCUSSION ADVANCE DIRECTIVE DISCUSSION [facility] Start: 05-30-2022 DEPRESSION ASSESSMENT DEPRESSION ASSESSMENT [facility] Start: 04-14-2022 3 comp foot exam completed DIABETIC FOOT EXAM [facility] Start: 04-09-2022 End: 06-09-2022 Valproate [Mass/volume] in Serum or Plasma VALPROIC A/DEPAKENE Lab Routine Nonintractable epilepsy without status epilepticus, unspecified epilepsy type (HCC) Expected: 04/09/2022, Expires: 06/09/2022 [facility] Work Phone: Comment on above: Expected: 04/09/2022, Expires: 3 Start: 04-03-2022 End: 06-03-2022 Basic metabolic 2000 panel - Serum or Plasma BASIC METABOLIC PNL Lab Routine Elevated serum creatinine Expected: 04/03/2022, Expires: 06/03/2022 [facility] Work Phone: Comment on above: Expected: 04/03/2022, Expires: 3 Start: 04-01-2022 End: 06-01-2022 LIPID PANEL, NONFASTING [facility] Work Phone: Comment on above: Expected: 04/01/2022, Expires: 3 Start: 04-01-2022 End: 06-01-2022 Thyrotropin [Units/volume] in Serum or Plasma [facility] Work Phone: Comment on above: Expected: 04/01/2022, Expires: 3 Start: 03-25-2022 ANNUAL PCP TEAM CHRONIC DISEASE VISIT ANNUAL PCP TEAM CHRONIC DISEASE VISIT [facility] Start: 03-25-2022 BP CONTROLLED (<130/80) BP CONTROLLED (<130/80) [facility] Start: 03-25-2022 Hepatitis B surface antibody level LDL CHOLESTEROL [facility] Start: 03-09-2022 End: 05-09-2022 ALBUMIN/CREAT RATIO RND UR ALBUMIN/CREAT RATIO RND UR Lab Routine Hyperglycemia Expected: 03/09/2022, Expires: 05/09/2022 [facility] Work Phone: Comment on above: Expected: 03/09/2022, Expires: 2 Start: 03-09-2022 End: 05-09-2022 Hepatitis C virus Ab [Presence] in Serum HEP C AB IA W/CONF SCRN Lab Routine Encounter for hepatitis C screening test for low risk patient Expected: 03/09/2022, Expires: 05/09/2022 [facility] Work Phone: Comment on above: Expected: 03/09/2022, Expires: 2 Start: 03-08-2022 End: 05-08-2022 CBC W Auto Differential panel - Blood CBC + DIFF Lab Routine 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 status epilepticus, unspecified epilepsy type (HCC) Expected: 03/08/2022, Expires: 05/08/2022 [facility] Work Phone: Comment on above: Expected: 03/08/2022, Expires: 2 Start: 03-08-2022 End: 05-08-2022 Comprehensive metabolic 2000 panel - Serum or Plasma COMP METABOLIC PANEL Lab Routine 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 status epilepticus, unspecified epilepsy type (HCC) Expected: 03/08/2022, Expires: 05/08/2022 [facility] Work Phone: Comment on above: Expected: 03/08/2022, Expires: 2 Start: 03-08-2022 End: 05-08-2022 Valproate [Mass/volume] in Serum or Plasma VALPROIC A/DEPAKENE Lab Routine 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 status epilepticus, unspecified epilepsy type (HCC) Expected: 03/08/2022, Expires: 05/08/2022 [facility] Work Phone: Comment on above: Expected: 03/08/2022, Expires: 2 Start: 01-28-2022 Influenza vaccination INFLUENZA (#1) [facility] Start: 2022 ADVANCE DIRECTIVE DISCUSSION ADVANCE DIRECTIVE DISCUSSION [facility] Start: 09-24-2021 End: 11-24-2021 ALBUMIN/CREAT RATIO RND UR ALBUMIN/CREAT RATIO RND UR Lab Routine Type 2 diabetes mellitus without complication, without long-term current use of insulin (HCC) Expected: 09/24/2021, Expires: 11/24/2021 [facility] Work Phone: Comment on above: Expected: 09/24/2021, Expires: 2 Start: 09-24-2021 End: 11-24-2021 CBC W Auto Differential panel - Blood CBC + DIFF Lab Routine Type 2 diabetes mellitus without complication, without long-term current use of insulin (HCC) Expected: 09/24/2021, Expires: 11/24/2021 [facility] Work Phone: Comment on above: Expected: 09/24/2021, Expires: 2 Start: 09-24-2021 End: 11-24-2021 Comprehensive metabolic 2000 panel - Serum or Plasma COMP METABOLIC PANEL Lab Routine Type 2 diabetes mellitus without complication, without long-term current use of insulin (HCC) Expected: 09/24/2021, Expires: 11/24/2021 [facility] Work Phone: Comment on above: Expected: 09/24/2021, Expires: 2 Start: 09-24-2021 End: 11-24-2021 Hemoglobin A1c/Hemoglobin.total in Blood HGB A1C Lab Routine Type 2 diabetes mellitus without complication, without long-term current use of insulin (HCC) Expected: 09/24/2021, Expires: 11/24/2021 [facility] Work Phone: Comment on above: Expected: 09/24/2021, Expires: 2 Start: 09-24-2021 End: 11-24-2021 Hepatitis C virus Ab [Presence] in Serum HEP C AB IA W/CONF SCRN Lab Routine Need for hepatitis C screening test Expected: 09/24/2021, Expires: 11/24/2021 [facility] Work Phone: Comment on above: Expected: 09/24/2021, Expires: 2 Start: 09-24-2021 End: 11-24-2021 HIV 1+2 Ab [Presence] in Serum or Plasma by Immunoassay HIV 1 2 COMBO(AG/AB),WITH REFLEX TO DIFFERENTIATION Lab Routine Screening for HIV (human immunodeficiency virus) Expected: 09/24/2021, Expires: 11/24/2021 [facility] Work Phone: Comment on above: Expected: 09/24/2021, Expires: 2 Start: 09-24-2021 End: 11-24-2021 LIPID PANEL BASIC LIPID PANEL BASIC Lab Routine Type 2 diabetes mellitus without complication, without long-term current use of insulin (HCC) Expected: 09/24/2021, Expires: 11/24/2021 [facility] Work Phone: Comment on above: Expected: 09/24/2021, Expires: 2 Start: 09-24-2021 End: 11-24-2021 VALPROIC A/DEPAKENE VALPROIC A/DEPAKENE Lab Routine Seizures (HCC) Expected: 09/24/2021, Expires: 11/24/2021 [facility] Work Phone: Comment on above: Expected: 09/24/2021, Expires: 2 Start: 09-23-2021 Hemoglobin A1c/Hemoglobin.total in Blood HBA1C [facility] Start: 09-08-2021 End: 11-08-2021 ALBUMIN/CREAT RATIO RND UR ALBUMIN/CREAT RATIO RND UR Lab Routine Type 2 diabetes mellitus without complication, without long-term current use of insulin (HCC) Expected: 09/08/2021, Expires: 11/08/2021 [facility] Work Phone: Comment on above: Expected: 09/08/2021, Expires: 2 Start: 09-08-2021 End: 11-08-2021 Hemoglobin A1c/Hemoglobin.total in Blood HGB A1C Lab Routine Type 2 diabetes mellitus without complication, without long-term current use of insulin (HCC) Expected: 09/08/2021, Expires: 11/08/2021 [facility] Work Phone: Comment on above: Expected: 09/08/2021, Expires: 2 Start: 09-08-2021 End: 11-08-2021 SCHEDULE LAB TESTING SCHEDULE LAB TESTING Lab Routine Expected: 09/08/2021, Expires: 11/08/2021 [facility] Work Phone: Comment on above: Expected: 09/08/2021, Expires: 2 Start: 07-14-2021 COVID-19 VACCINE (3 - Booster for Moderna series) COVID-19 VACCINE (3 - Booster for Moderna series) [facility] Start: 05-30-2021 DEPRESSION ASSESSMENT DEPRESSION ASSESSMENT [facility] Start: 04-08-2021 COVID-19 VACCINE (3 - Booster for Moderna series) COVID-19 VACCINE (3 - Booster for Moderna series) [facility] Start: 04-08-2021 COVID-19 VACCINE (3 - Moderna series) COVID-19 VACCINE (3 - Moderna series) [facility] Start: 07-23-2020 PROSTATE CANCER SCREENING DISCUSSION PROSTATE CANCER SCREENING DISCUSSION [facility] Start: 03-01-2019 PNEUMOCOCCAL: 65+ (2 - PCV) PNEUMOCOCCAL: 65+ (2 - PCV) [facility] Start: 03-02-2017 Adult depression screening assessment DEPRESSION SCREENING [facility] Start: 2017 Hepatitis B Vaccine (1 of 3 - Risk 3-dose series) Hepatitis B Vaccine (1 of 3 - Risk 3-dose series) [facility] Start: 2017 RSV Vaccine (1 - 1-dose 60+ series) RSV Vaccine (1 - 1-dose 60+ series) [facility] Start: 2002 COLOGUARD (FIT-DNA) COLOGUARD (FIT-DNA) [facility] Start: 2002 Colonoscopy COLONOSCOPY [facility] Start: 2002 COLORECTAL CANCER SCREENING COLORECTAL CANCER SCREENING [facility] Start: [address] COLONOGRAPHY [facility] Start: 2002 FECAL OCCULT BLOOD FECAL OCCULT BLOOD [facility] Start: 2002 Screening for malignant neoplasm of colon [facility] Start: 2002 SIGMOIDOSCOPY SIGMOIDOSCOPY [facility] Start: 01-04-1976 Urine microalbumin profile [facility] Start: 1975 BP CONTROLLED (<130/80) BP CONTROLLED (<130/80) [facility] Start: 1975 HEPATITIS C SCREENING HEPATITIS C SCREENING [facility] Start: 1975 HIV SCREENING HIV SCREENING [facility] Start: 1967 3 comp foot exam completed DIABETIC FOOT EXAM [facility] Start: 1967 Hepatitis B screening URINE ALBUMIN:CREATININE RATIO [facility] Start: 1967 Hepatitis C antibody, confirmatory test DILATED RETINAL EXAM [facility] Start: 1962 COVID-19 VACCINE (1) COVID-19 VACCINE (1) [facility] Start: 1957 ABDOMINAL AORTIC ANEURYSM SCREENING ABDOMINAL AORTIC ANEURYSM SCREENING [facility] Start: 1957 Abdominal aortic aneurysm screening Abdominal Aortic Aneurysm Screening [facility] COLOGUARD COLOGUARD Lab Ro utine Screening for colon cancer Ordered: 09/24/2021 [facility] Work Phone: Comment on above: Ordered: 09/24/2021 COLOGUARD COLOGUARD Lab Ro utine Screening for colon cancer Ordered: 09/30/2022 [facility] Work Phone: Comment on above: Ordered: 09/30/2022 COLOGUARD COLOGUARD Lab Ro utine Screening for colon cancer Ordered: 11/22/2023 [facility] Comment on above: Ordered: 11/22/2023 End: 03-10-2023 Echocardiography ECHO Cardiology Routine 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 (HCC) Non-rheumatic tricuspid valve insufficiency Mitral valve insufficiency, unspecified etiology Primary pulmonary HTN (HCC) Enlarged thoracic aorta (HCC) 1 Occurrences starting 03/10/2022 until [facility]10[facility]2023 [facility] [facility] Work Phone: Comment on above: 1 Occurrences starting 03/10/2022 until 03/10/2023 End: 03-08-2023 EPIL EEG ROUTINE EPIL EEG ROUTINE NEUROLOGY Routine 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 status epilepticus, unspecified epilepsy type (HCC) 1 Occurrences starting 03/08/2022 until 03/08/2023 [facility] Work Phone: Comment on above: 1 Occurrences starting 03/08/2022 until 03/08/2023 End: 05-12-2023 Mra head w/o contrst material MRA BRAIN WO IVCON Radiology Routine Other symptoms and signs involving the nervous system 1 Occurrences starting 04/12/2022 until 05/12/2023 [facility] Work Phone: Comment on above: 1 Occurrences starting 04/12/2022 until 05/12/2023 End: 05-12-2023 Mra neck w/o contrst material MRA CAROTID WO IVCON Radiology Routine Other symptoms and signs involving the nervous system 1 Occurrences starting 04/12/2022 until 05/12/2023 [facility] Work Phone: Comment on above: 1 Occurrences starting 04/12/2022 until 05/12/2023 End: 04-07-2023 Mri brain brain stem w/o contrast material MRI BRAIN WO IVCON Radiology Routine 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 status epilepticus, unspecified epilepsy type (HCC) 1 Occurrences starting 03/08/2022 until 04/07/2023 [facility] Work Phone: Comment on above: 1 Occurrences starting 03/08/2022 until 04/07/2023 Patient Education [facility] Work Phone: Patient referral [facility] Work Phone: PFIZER-BIONTECH COVI D-19 BIVALENT BOOSTER VACCINE, AGE 12+ YR PFIZER-BIONTECH COVID-19 BIVALENT BOOSTER VACCINE, AGE 12+ YR Immunization/Injection Routine Need for COVID-19 vaccine Ordered: 03/09/2022 [facility] Work Phone: Comment on above: Ordered: 03/09/2022 End: 10-01-2023 PVR LEG [facility] Vascular Lab Routine Peripheral vascular disease (HCC) 1 Occurrences starting 09/30/2022 until 10/01/2023 [facility] Work Phone: Comment on above: 1 Occurrences starting 09/30/2022 until 10/01/2023 End: 12-21-2024 US Abdominal Aorta for screening US SCREENING FOR AAA Radiology Routine Screening for abdominal aortic aneurysm 1 Occurrences starting 11/22/2023 until 12/21/2024 [facility] Comment on above: 1 Occurrences starting 11/22/2023 until 12/21/2024 End: 05-01-2023 Us abdominal aorta real time screen study aaa US SCREENING FOR AAA Radiology Routine Screening for AAA (abdominal aortic aneurysm) 1 Occurrences starting 04/01/2022 until 05/01/2023 [facility] Work Phone: Comment on above: 1 Occurrences starting 04/01/2022 until 05/01/2023 End: 10-30-2023 Us abdominal aorta real time screen study aaa US SCREENING FOR AAA Radiology Routine Screening for AAA (abdominal aortic aneurysm) 1 Occurrences starting 09/30/2022 until 10/30/2023 [facility] Work Phone: Comment on above: 1 Occurrences starting 09/30/2022 until 10/30/2023 [facility] Immunizations Immunization Date Immunization Notes Care Provider Cecil alvarez 07-10-2024 influenza, high dose seasonal, preservative-free Dr. Aric Zapien MD Work Phone: [facility] 11-28-2023 COVID-19 vaccine, ag e 12+ yr, season (PFIZER-BIONTECH) CYNTHIA Max PA-C Work Phone: [facility] 05-24-2023 COVID-19 vaccine, ag e 12+ yr, season (PFIZER-BIONTECH) Aric Zapien MD Work Phone: [facility] 05-24-2023 influenza (HD-IIV4) vaccine, age 65+ yr, high dose, quadrivalent, PF (FLUZONE HIGH-DOSE) Aric Zapien MD Work Phone: [facility] 05-24-2023 influenza virus vaccine, unspecified formulation CYNTHIA Max PA-C Work Phone: [facility] 03-12-2022 influenza, high dose seasonal, preservative-free Aric Zapien MD Work Phone: [facility] 03-12-2022 influenza virus vaccine, unspecified formulation Mri (I-Stat/1.5t) Work Phone: [facility] 03-09-2022 pneumococcal Conjuga te, unspecified formulation CYNTHIA Max PA-C Work Phone: [facility] Work Phone: 03-09-2022 pneumococcal (PCV20) vaccine, 20 valent (PREVNAR 20) CYNTHIA Max PA-C Work Phone: [facility] Work Phone: 03-25-2021 influenza, injectabl e, quadrivalent, contains preservative Aric Zapien MD Work Phone: [facility] 02-11-2021 COVID-19 original vaccine, full dose, monovalent (MODERNA) Aric Zapien MD Work Phone: [facility] 01-14-2021 COVID-19 original vaccine, full dose, monovalent (MODERNA) Aric Zapien MD Work Phone: [facility] 02-29-2020 influenza, high dose seasonal, preservative-free Aric Zapien MD Work Phone: [facility] 02-29-2020 influenza, injectabl e, quadrivalent, preservative free Aric Zapien MD Work Phone: [facility] 02-29-2020 zoster vaccine recombinant Aric Zapien MD Work Phone: [facility] 10-31-2019 zoster vaccine recombinant Aric Zapien MD Work Phone: [facility] 03-31-2019 Influenza, injectabl e, Madin Brigitte Canine Kidney, preservative free, quadrivalent Aric Zapien MD Work Phone: [facility] 03-31-2019 influenza, seasonal, injectable Aric Zapien MD Work Phone: [facility] 03-01-2018 influenza, injectabl e, quadrivalent, preservative free Aric Zapien MD Work Phone: [facility] 03-01-2018 pneumococcal polysaccharide vaccine, 23 valent Aric Zapien MD Work Phone: [facility] 03-22-2017 influenza, seasonal, injectable Aric Zapien MD Work Phone: [facility] 03-22-2017 influenza, seasonal, injectable, preservative free Aric Zapien MD Work Phone: [facility] 04-29-2015 influenza, injectabl e, quadrivalent, preservative free Dr. Aric Zapien Work Phone: [facility] 04-29-2015 influenza, seasonal, injectable [facility] Work Phone: 04-29-2015 influenza, seasonal, injectable, preservative free Aric Zapien MD Work Phone: [facility] NEGATED: Highlighted row has not occurred!03-09-2022 COVID-19 booster vaccine, age 12+ yr, bivalent (PFIZER-BIONTXipin) NA Mansoor PERRY Work Phone: [facility] Work Phone: Comment on above: Deferred: Postponed Payers Date Payer Category Payer Medicare [id number] 2024 Unknown [id number] 2024 Self-pay [id number] 2023 Medicare (Managed Care) [facility] [id number] 2023 Unknown JODIE MAN [facility] MEDICARE ADVANTAGE O [id number] 2023-Present [phone] [address] [place] [address] [facility] [id number] 2023 Medicare [id number] 2023 Unknown [id number] 2019 Medicaid MEDICAID [facility] MEDICAID [id number] 2019-Present [phone] [address] [place] [address] Medicaid [id number] 2018 Medicare [facility] MEDICARE [facility] DUAL COMPLETE HMO SNP [id number] 2018-Present [phone] [address] [place] [address] Medicare [id number] 2018 Medicare [id number] 2017 Medicaid [id number] 2017 Medicaid [id number] Unknown [employer] [id number] Unknown [facility] MCRDUAL COMP O [id number] Unknown VA AUTH REQUIR ED SEE NOTE [id number] Unknown [facility] MCRDUAL COMPLETE [id number] Unknown [id number] Unknown [id number]. 462 Unknown [id number] 2.16840.1.213138.3.579.2. 462 Unknown [id number] 2.16840.1.002205.3.579.2. 462 Unknown [id number] 2.16840.1.532076.3.579.2. 462 Unknown [id number] 2.16.840.1.791428.3.579.2. 462 Unknown [id number] 2.16.840.1.895105.3.579.2. 462 Unknown [id number] 2.16.840.1.461775.3.579.2. 462 Unknown [id number] 2.16.840.1.520123.3.579.2. 462 Unknown [id number] 2.16.840.1.171180.3.579.2. 462 Unknown [id number] 2.16.840.1.850985.3.579.2. 462 Unknown [id number] 2.16.840.1.085240.3.579.2. 462 Unknown [id number] 2.16.840.1.814912.3.579.2. 462 Unknown [id number] 2.16.840.1.635518.3.579.2. 462 Unknown [id number] 2.16.840.1.315766.3.579.2. 462 Unknown [id number] 2.16.840.1.860932.3.579.2. 462 Unknown [id number] 2.16.840.1.574729.3.579.2. 462 Unknown [id number] 2.16.840.1.899687.3.579.2. 462 Unknown [id number] 2.16.840.1.628036.3.579.2. 462 Unknown [id number] 2.16.840.1.605720.3.579.2. 462 Social History Date Type Detail Facility Start: 07-23-2015 End: 03-08-2025 Tobacco smoking status NHIS Ex-smoker [facility] Start: 07-23-2015 End: 03-08-2022 Tobacco use and exposure Smokeless tobacco non-user [facility] Start: 04-14-2021 End: 06-22-2024 Alcohol intake Not Asked [facility] Start: 07-23-2015 End: 03-08-2022 Tobacco Comment Quit in 2005 [facility] Start: 1955 Sex Assigned At Not on file [facility] Start: 02-10-2021 End: 04-01-2022 Exposure to SARS-CoV-2 (event) Not sure [facility] History of tobacco use Current smoker [facility] Start: 02-15-2022 End: 02-25-2022 Exposure to SARS-CoV-2 (event) Unable to assess [facility] Work Phone: Start: 03-06-2022 End: 06-23-2023 Tobacco smoking status NHIS Unknown if ever smoked [facility] Start: 09-15-2014 None [facility] Start: 09-15-2014 Alone;- [facility] Start: 04-27-2015 Non-smoker [facility] Start: 1955 Sex Assigned At Male [facility] Start: 09-30-2022 End: 12-07-2022 History of Social function [facility] Work Phone: Start: 09-30-2022 End: 12-07-2022 Tobacco use panel [facility] Work Phone: Adult Depression Screening Assessment 0 [facility] Work Phone: Start: 09-11-2024 Sex Male (finding) [facility] Medical Equipment Procedure Code Equipment Code Equipment Origin al Text Equipment Identifier Dates Test blood sugar (s) 1 times daily. Dx: Type 2 DM - Uncontrolled E11.65 Insulin: No [id number], [id number] Start: 04-01-2022 Comment on above: Test blood sugar(s) 1 times daily. Dx: Type 2 DM - Uncontrolled E11.65 Insulin: No Goals Date Patient Goal Desired Activity /State Functional Status Date Assessment Result Facility 07-11-2024 Functional status Chair [facility] Work Phone: 07-10-2024 Functional status Tolerates Activity Well [facility] Work Phone: 03-09-2022 Are you deaf, or do you have serious difficulty hearing No [facility] 03-09-2022 Are you blind, or do you have serious difficulty seeing, even when wearing glasses No [facility] 03-09-2022 Do you have serious difficulty walking or climbing stairs No [facility] 03-09-2022 Do you have difficul ty dressing or bathing No [facility] 03-09-2022 Because of a physica l, mental, or emotional condition, do you have difficulty doing errands alone such as visiting a physician's office or shopping No [facility] Mental Status Date Assessment Result Facility 07-11-2024 Cognitive function Voice/Name [facility] Work Phone: 03-09-2022 Because of a physica l, mental, or emotional condition, do you have serious difficulty concentrating, remembering, or making decisions Yes [facility] 03-06-2022 Cognitive function Level Of Cons ciousness Awake;Alert;Appropriate;Fol lows Commands;Responds to vocal stimuli [facility] Work Phone: Clinical Notes 06-27-2020 to 03-08-2025 Telephone Encounter - Nida Root LPN - 10/25/2024 12:23 PM EDTTelephone Encounter - Nida Root LPN - 10/25/2024 12:23 PM EDTTelephone Encounter - Felicita Bolden MA - 07/16/2024 3:25 PM EST Note Date & Type Note Facility 03-08-2025 Discharge summary [facility] 03-08-2025 Radiology Diagnostic study note [facility] Imaging Services [address] [place], [place] [address] Spine Cervical without Contras MR#: [id number] Acct: [id number] Name: REINA SULLIVAN Rep #: [id number] : 1955 M 70 From: Maulik Levi MD PCP: Dr. Aric Zapien MD Status: REG E R Study:Spine Cervical without Contras Date of Exam: 03/08/25 Exam# [id number] Ordering Dr: Damien Cho MD PROCEDURE: SPINE CERVICAL WITHOUT CONTRAS 03/08/2025 REASON FOR EXAM: FALL ON ELIQUIS TECHNIQUE: Procedure Code: CTSPC Modality: CT Procedure: SPINE CERVICAL WITHOUT CONTRAS Coronal and Sagittal reconstruction series were provided. One or more dose reduction techniques were used (e.g., Automated exposure control, adjustment of the mA and/or kV according to patient size, use of iterative reconstruction technique. RADIATION DOSE SUMMARY: CTDlvol: 26 mGy DLP: 547 mGycm FINDINGS: No evidence of acute fracture or dislocation. Moderate degenerative changes of the midcervical spine. Vertebral body heights are maintained. Mild reversal of the normal cervical lordosis which may be positional or due to spasm. CT/Spine Cervical without Contras IMPRESSION: No evidence of acute fracture. Spondylosis. Reading Location: [address] CC: Dr. Liza Cho MD; Dr. Aric Zapien MD ~ Tariff Clerk: Signed [facility] 03-08-2025 Radiology Diagnostic study note [facility] Imaging Services [address] [place], [place] [address] Brain/Head without Contrast MR#: [id number] Acct: [id number] Name: REINA SULLIVAN Rep #: [id number] : 1955 M 70 From: Aleks Rodriguez MD PCP: Dr. Aric Zapien MD Status: REG E R Study:Brain/Head without Contrast Date of Exa m: 03/08/25 Exam# [id number] Ordering Dr: Damien Cho MD PROCEDURE: BRAIN/HEAD WITHOUT CONTRAST 03/08/2025 REASON FOR EXAM: FALL, ON ELIQUIS TECHNIQUE: Procedure Code: CTBR Modality: CT Procedure: BRAIN/HEAD WITHOUT CONTRAST Coronal and Sagittal reconstruction series were provided. One or more dose reduction techniques were used (e.g., Automated exposure control, adjustment of the mA and/or kV according to patient size, use of iterative reconstruction technique. RADIATION DOSE SUMMARY: CTDlvol: 45 mGy DLP: 846 mGycm COMPARISON: None FINDINGS: Brain: There is no evidence of hemorrhage, acute ischemia or mass. No extra-axial fluid collection, midline shift or mass effect. Low-density is seen in the periventricular white matter. Patchy foci of encephalomalacia in the deep white matter of the left parietal lobe. CSF Spaces: Mild ventricular dilation is present along with [id number]-eg-[id number] central and peripheral volume loss. Sinuses/Mastoids: Mucous retention cyst or polyp partially imaged left maxillarysinus. Small septal spur to the left. Pneumatization of the petrous portions of the temporal bones. Cerumen in the left external auditory canal. Bones: No fracture CT/Brain/Head without Contrast IMPRESSION: 1. No evidence of intracranial hemorrhage or acute ischemia. 2. Changes of chronic microvascular ischemia and severe volume loss. Reading Location: [id number] CC: Dr. Liza Cho MD; Dr. Aric Zapien MD ~ Tariff Clerk: Signed [facility] 10-25-2024 Telephone encounter Note No show letter #2 sent to patient. [facility] 10-25-2024 Miscellaneous Notes No show letter #2 sent to patient. documented in this encounter [facility] 07-16-2024 Telephone encounter Note Patient canceled his appointment on 07/12/24 with Isa Stevenson. He was discharged from [facility] on 07/11/24 DX: AFIB RVR, debility. Called and spoke with ex- Flor, his emergency contact, and she said he is in [facility] for rehab with the hopes for permanent placement afterwards. Felicita Bolden MA July 16, 2024 3:30 PM [facility] 07-16-2024 Miscellaneous Notes Patient canceled his appointment on 07/12/24 with Isa Stevenson. He was discharged from [facility] on 07/11/24 DX: AFIB RVR, debility. Called and spoke with ex- Flor, his emergency contact, and she said he is in [facility] for rehab with the hopes for permanent placement afterwards. Felicita Bolden MA July 16, 2024 3:30 PM documented in this encounter [facility] 07-11-2024 Note [facility] Medical Records Department [address] [place] [address] Discharge Summary 07/11/24 0914 MR#: [id number] Acct: [id number] Name: REINA SULLIVAN Rep #: [id number] : 1955 69 From: Yann Ascencio DO PCP: Dr. Aric Zapien MD Status:ADM IN Location: [place] [address] Providers Date of Admission: 07/09/24 Primary Care [...] Zapien Performed By: Ann-Marie Cao, MARY, RVT D/C Instructions Discharge Diet: Low fat [...] mg Simvastatin 80mg (more content not included)... [facility] 07-09-2024 Evaluation note Diagnosis Onset Date Resolution Atrial fibrillation with rapid ventricular response resolved July 09 10:34am Bilateral ankle pain resolved 2024 10:34am Bilateral leg and foot pain resolved July 09 10:34am [facility] Work Phone: 1(860) 589-677401-28-2025 Telephone encounter Note* Telephone Encounter - Rodolfo Werner - 06/26/2024 8:25 AM EST I left a vm for patient to call when available to schedule an appt fro his fracture referral in hischart [facility]01-28-2025 Miscellaneous Notes* Telephone Encounter - Rodolfo Werner - 06/26/2024 8:25 AM EST I left a vm for patient to call when available to schedule an appt fro his fracture referral in hischart [facility] Telephone encounter Note * Telephone Encounter - Felicita Bolden MA - 06/25/2024 11:51 AM EST Spoke with ex , Halima, and she was made aware of results and provider message. She was also given the number to call and schedule his appointment for spine. She verbalizes understanding. Felicita Bolden MA June 25, 2024 11:52 AM [facility]01-27-2025 Miscellaneous Notes* Telephone Encounter - Felicita Bolden [...] Halima Sullivan. 06/16/24 telephone encounter routed to [facility] for back, neck, and spine pool again for schedulingconsultation with orthopaedic renewals specialist. * Telephone Encounter - Karla Ferguson [...] have a compression fracture. [facility] Telephone encounter Note * Telephone Encounter - Mecca Summers - 06/25/2024 10:58 AM EST Patient returned missed call and received the provider's message. He voiced understanding. Patient requests all medical updates be discussed with his ex-spouse, Halima Sullivan. 06/16/24 telephone encounter routed to center for back, neck, and spine pool again for schedulingconsultation with orthopaedic renewals specialist. [facility]01-27-2025 Telephone encounter Note* Telephone Encounter - Karla Ferguson MA - 06/25/2024 10:47 AM EST Message left for pt to call back for results. Karla Ferguson MA [facility]01-27-2025 Telephone encounter Note* Telephone Encounter - Florinda [...] surgery. He does have a compression fracture. [facility]01-24-2025 Telephone encounter Note* Telephone Encounter - Florinda Stevenson APRN.CNP - 06/22/2024 5:03 PM EST Yes. An orthopedic renewals specialist. Does not need surgery but they can evaluate for kyphoplasty- setting the compression if needed [facility]01-24-2025 Miscellaneous Notes* Telephone Encounter - Florinda Stevenson APRN.CNP - 06/22/2024 5:03 PM EST Yes. An orthopedic renewals specialist. Does not need surgery but they [...] appropriately. Rebecca Dumas RN [facility] Miscellaneous Notes* Telephone Encounter - Mecca Summers [...] Patient notified of results and transferred to district service manager * Telephone Encounter - Florinda Stevenson APRN.KVNG [...] if pt knows he is scheduled at [facility] * Telephone Encounter - Aric Zapien MD - 06/19/2024 10:50 AM EST Please call before (I suspect was put in wrong place) * Telephone Encounter - Aric Zapien MD - 06/16/2024 8:47 AM EST Schedule to see me at [facility] in person on 06/21/24. Please make sure they are aware apptthey scheduled is at that office and not Mel [facility] Telephone encounter Note * Telephone Encounter - Mecca Summers - 06/22/2024 4:41 PM EST [facility] unauthorized to schedule for this department. Patient notified that JARRETT routed referralto the appropriate department and their facility will contact patient for scheduling. Patient requests all future medical information and appointment scheduling be disclosed to ex-spouse, Flor Sullivan, only. [facility]01-24-2025 Telephone encounter Note* Telephone Encounter - Rebecca Dumas RN - 06/22/2024 4:36 PM EST Asking for provider to clarify pt's order for [facility]. Does patient need to see a surgeon? Please advise so that [facility] staff can schedule patient appropriately. Rebecca Dumas RN [facility]01-24-2025 Telephone encounter Note* Telephone Encounter - Felicita Bolden MA - 06/22/2024 4:29 PM EST Patient notified of results and transferred to district service manager [facility]01-24-2025 Telephone encounter Note* Telephone Encounter - Florinda Stevenson APRN.CNP - 06/22/2024 3:34 PM EST Please let patient know that he has a lumbar 1 compression fracture of the endplate. I am going to send him to a spine surgeon to review. Please facilitate primaryscheduling [facility]01-24-2025 NoteHNO ID: [id number] Author: EKATERINA BELTRE Tech Service: ? Author [...] PATIENT PRESENTS WITH AN IMPLANTABLE OR ATTACHED TWILL CUTTER: No RADIOLOGY DEPARTMENT: General X-ray: Exam(s) Completed: Spine X-Ray(s): Lumbar AP / LAT / L5-S1 PERIPHERAL IV DATA: Not applicable SIGNED BY: Rosa Wakefield June 22, 2024 2:52 [facility]01-24-2025 Instructions* Patient Instructions* Florinda Stevenson APRN.CNP - 06/22/2024 1:59 PM EST 1) Check blood and urine in lab 2) Xray lumbar spine 3) Methocarbamol 500 mg 3 x day as needed for low back pain 4) Follow up in 2 weeks documented in this encounterSelect [facility]-2025 NoteHNO ID: [id number] Author: FLORINDA STEVENSON APRN.CNP Service: ? Author [...] (HCC) Dr. 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 Huston TBI (traumatic brain injury) ([facility]) 2 times PAST SURGICAL HISTORY Procedure Laterality [...] for compressi (more content not included)...[facility] 06-22-2024 History of Present illness Narrative* Florinda Stevenson APRN.REFRACTORY MIXER - 06/22/2024 1:35 PM EST This is [...] doesn't hurt. Hurts to walk a little. 9.10/06- sharp pain PAST MEDICAL HISTORY: PAST MEDICAL HISTORY Diagnosis Date Atrial fibrillation ([facility]) Dr. 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 Huston TBI (traumatic brain injury) ([facility]) 2 times PAST SURGICAL HISTORY Procedure Laterality [...] tobacco: Never Tobacco comments: Quit in 2006 REVIEW OF SYSTEMS GENERAL: Uncertain weight loss, [...] improvement. Florinda Stevenson APRN.KVNG documented in this encounterSelect [facility]01-21-2025 Telephone encounter Note * Telephone Encounter - Felicita Bolden MA - 06/19/2024 11:20 AM EST Please call pt and ask if pt knows he is scheduled at [facility]01-21-2025 Telephone encounter Note* Telephone Encounter - Aric Zapien MD - 06/19/2024 10:50 AM EST Please call before (I suspect was put in wrong place) [facility]01-18-2025 Telephone encounter Note* Telephone Encounter - Aric Zapien MD - 06/16/2024 8:47 AM EST Schedule to see me at [facility] in person on 06/21/24. Please make sure they are aware apptthey scheduled is at that office and not [place] [facility]01-16-2025 Telephone encounter Note* Telephone Encounter - Wilder Lulu Bryant - 06/14/2024 10:31 AM EST Patient called to request medication. He stated that he will need the medication by tomorrow, 06/15/24. Scheduled patient due to he fell on ice, but he declined any other days/times/providers. He will only see Dr. Zapien. He stated he can wait. He can only come on a . Scheduled at his request on 06/21/24. [facility]01-16-2025 Miscellaneous Notes* Telephone Encounter - Lulu Fitch - 06/14/2024 10:31 AM EST Patient called [...] 13, 2024 9:08 AM documented in this encounterSelect Medical [facility]01-15-2025 Telephone encounter Note * Telephone Encounter - [...] Courtney Crane June 13, 2024 9:08 AM [facility]12-30-2024 NoteHNO ID: [id number] Author: MAYURI PEREZ MA Service: ? Author Type: Green Plumber Type: Progress Notes Filed: 05/28/2024 19:08 Note Text: POPULATION HEALTH NAVIGATION OUTREACH Action/FYI [facility] OUTREACH Reason for Outreach Suspected Conditions Patient Contacted: Unable or unnecessary to reach patient: Left message Navigation Signature: Mayuri Perez MA May 28, 2024 7:07 [facility]12-30-2024 History of Present illness Narrative* Mayuri Perez MA - 05/28/2024 7:07 PM EST POPULATION HEALTH NAVIGATION OUTREACH Action/FYI MCA OUTREACH Reason for Outreach Suspected Conditions Patient Contacted: Unable or unnecessary to reach patient: Left message Navigation Signature: Mayuri Perez MA May 28, 2024 7:07 PM documented in this encounterSelect Medical Specialty [facility]12-30-2024 NotePatient Outreach (NETNAV) REINA SULLIVAN ([id number]) 1955 M Date Time Provider Department 05/28/24 MAYURI PEREZ During your visit today, we recorded the following information about you: Mayuri Perez MA 05/28/2024 7:08 PM Signed POPULATION HEALTH NAVIGATION OUTREACH Action/I [facility] OUTREACH Reason for Outreach Suspected Conditions Patient Contacted: Unable or unnecessary to reach patient: Left message Navigation Signature: Mayuri ParrROSS razo May 28, 2024 7:07 PM Allergies As of Date: 05/28/2024 Noted Allergy Reaction DYE 03/02/2016 14 - Other: See Comments Comments: used for heart cath Date Reviewed: 11/22/2023 Reviewed by: Florinda Flores LPN - Fully Assessed Reason for Visit: Population Health Navigation Outreach [3910] Cmt: [facility] OUTREACH Prescriptions as of 05/28/2024 - [...] unspecified na*09/30/2022 Left atrial enlargement [I51.7] 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11-20-2024 History of Present illness Narrative* Edward Pleitez [facility] - 04/18/2024 11:07 AM EST Pt chart reviewed as part of population health initiative focused on statin use in patients with diabetes (DM) or cardiovascular disease (CVD). Reina Sullivan is identified through data from [employer] (insurer) as a potential candidate for statin [...] indicates patient has hx of CVA and ID, should be on high-intensity statin for secondary prevention. Patient scheduled to see PCP on 05/25. ALLERGIES Allergen Reactions Dye Other: See Comments used for heart cath PAST MEDICAL HISTORY Diagnosis Date Atrial fibrillation ([facility]) Dr. 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 Huston TBI (traumatic brain injury) ([facility]) 2 times Cholesterol, Total (mg/dL) Date Value [...] provider Edward Pleitez RPh documented in this encounterSelect Medical Specialty [facility]11-20-2024 NoteHNO ID: [id number] Author: EDWARD PLEITEZ RPh Service: ? Author Type: Pharmacist Type: Progress Notes Filed: 04/18/2024 11:12 Note Text: Pt chart reviewed as part of population health initiative focused on statin use in patients with diabetes (DM) or cardiovascular disease (CVD). Reina Sullivan is identified through data from [employer] (insurer) as a potential candidate for statin [...] indicates patient has hx of CVA and ID, should be on high-intensity statin for secondary prevention. Patient scheduled to see PCP on 05/25. ALLERGIES Allergen Reactions Dye Other: See Comments used for heart cath PAST MEDICAL HISTORY Diagnosis Date Atrial fibrillation ([facility]) Dr. 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 Huston TBI (traumatic brain injury) ([facility]) 2 times Cholesterol, Total (mg/dL) Date Value [...] review: Pending outreach to [facility] NoteHNO ID: [id number] Author: EDWARD PLEITEZ [facility] Service: ? Author Type: Pharmacist Type: Progress Notes Filed: 05/28/2024 15:55 Note Text: Appears patient was a no-show to PCP visit on 05/25. Edward Pleitez PharmD, [facility] Primary Care Clinical PharmacistMer[facility] Health St[facility]11-20-2024 NotePatient Outreach (PHMEWO) REINA SULLIVAN ([id number]) 1955 M Date Time Provider Department 04/18/24 EDWARD PLEITEZ INES During your visit today, we recorded the following information about you: Edward Pleitez, [facility] 04/18/2024 11:12 AM Signed Pt chart reviewed as part of population health initiative focused on statin use in patients with diabetes (DM) or cardiovascular disease (CVD). Reina Sullivan is identified through data from [employer] (insurer) as a potential candidate for statin [...] indicates patient has hx of CVA and ID, should be on high-intensity statin for secondary prevention. Patient scheduled to see PCP on 05/25. ALLERGIES Allergen Reactions Dye Other: See Comments used for heart cath PAST MEDICAL HISTORY Diagnosis Date Atrial fibrillation ([facility]) Dr. 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 Huston TBI (traumatic brain injury) ([facility]) 2 times Cholesterol, Total (mg/dL) Date Value [...] review: Pending outreach to provider Edward Pleitez [facility] Edward Pleitez RPh 05/28/2024 3:55 PM Signed Appears patient was a no-show to PCP visit on 05/25. 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 03-22-2024 Telephone encounter Note* Telephone Encounter - Merline Jimenez RN - 03/22/2024 2:44 PM EDT Patient does not see endocrinology. Will route to PCP office to make them aware. Merline Jimenez RN March 22, 2024 2:44 PM [facility]10-24-2024 Miscellaneous Notes* Telephone Encounter - Merline Jimenez RN - 03/22/2024 2:44 PM EDT Patient does not see endocrinology. Will route to PCP office to make them aware. Merline Jimenez RN March 22, 2024 2:44 PM * Telephone Encounter - Vanna Flores - 03/21/2024 3:31 PM EDT [facility] states that their records show patient has diabetes but does not take statins. AMA recommendthat patient take a statin to reduce cardiovascular risk. documented in this encounterSelect [facility]10-23-2024 Telephone encounter Note * Telephone Encounter - Vanna Flores - 03/21/2024 3:31 PM EDT [facility] states that their records show patient has diabetes but does not take statins. AMA recommendthat patient take a statin to reduce cardiovascular risk. [facility]-17-2024 NoteHNO ID: [id number] Author: YOLANDA STRATTON MA Service: ? Author Type: Green Plumber Type: Progress Notes Filed: 03/15/2024 08:28 Note Text: POPULATION HEALTH NAVIGATION OUTREACH Action/FYI Letter received and sent to be mailed. Navigation Signature: Yolanda Stratton MA March 15, 2024 8:27 [facility]10-09-2024 NoteHNO ID: [id number] Author: JORDY HERNANDEZ MA Service: ? Author Type: Green Plumber Type: Progress Notes Filed: 03/07/2024 10:40 Note Text: POPULATION HEALTH NAVIGATION OUTREACH Action/FYI Patient is on [facility] [place] CURRENT ROSTER Workbench list for below and [...] 07, 2024 7:34 [facility]10-09-2024 History of Present illness Narrative* Jordy Hernandez MA - 03/07/2024 7:34 AM EDT POPULATION HEALTH NAVIGATION OUTREACH Action/FYI Patient is on [facility] CURRENT ROSTER Workbench list for below [...] 07, 2024 7:34 AM documented in this encounterSelect [facility]10-09-2024 NotePatient Outreach (NETNAV) REINA SULLIVAN ([id number]) 1955 M Date Time Provider Department 03/07/24 JORDY HERNANDEZ During your visit today, we recorded the following information about you: Jordy Hernandez MA 03/07/2024 10:40 AM Signed POPULATION HEALTH NAVIGATION OUTREACH Action/FYI Patient is on [facility] CURRENT ROSTER Workbench list for below [...] unspecified na*09/30/2022 Left atrial enlargement [I51.7] 09/30/2022 retirement current use of 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 *09/30/2022 Migraine [...] Status:Closed by JORDY HERNANDEZ on 03/07/24[facility]07-18-2024 NoteHNO ID: [id number] Author: MOSHE FRIEDMAN MA Service: ? Author Type: Green Plumber Type: Progress Notes Filed: 12/15/2023 13:03 Note Text: POPULATION HEALTH NAVIGATION OUTREACH Action/FYI December 15, [...] Moshe Friedman MA December 15, 2023 1:01 [facility]07-18-2024 History of Present illness Narrative* Moshe [...] 15, 2023 1:01 PM documented in this encounterSelect [facility]07-18-2024 NotePatient Outreach (NETNAV) REINA SULLIVAN ([id number]) 1955 Jaison Date Time Provider Department 12/15/23 [...] unspecified na*09/30/2022 Left atrial enlargement [I51.7] 09/30/2022 retirement current use of 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 *09/30/2022 Migraine [...] Status:Closed by MOSHE FRIEDMAN on 12/15/23[facility] 11-24-2023 Telephone encounter Note* Telephone Encounter - Harvey Hazel MSW - 11/24/2023 12:54 PM EDT [place]kie called and spoke with Halima, patient ex in regards to service assistance options in the community. Halima notes that she helps patient " to a certain extent." Halima and Nikkie spoke about [facility] Older Adult Resource Directory. Halima asks that Sw mail patient this guide for him to review and see what services are available in the community. Nikkie will also attach Community [facility] Older Adult support program and [facility] information. [facility]06-27-2024 Miscellaneous Notes* Telephone Encounter - Harvey Hazel MSW - 11/24/2023 12:54 PM EDT [place]kie called and spoke with Halima, patient ex in regards to service assistance options in the community. Halima notes that she helps patient " to a certain extent." Halima and Nikkie spoke about [facility] Older Adult Resource Directory. Halima asks that Sw mail patient this guide for him to review and see what services are available in the community. Sw will also attach [facility] Older Adult support program and [facility] information. documented in this encounterSelect [facility]06-25-2024 Instructions* Patient Instructions* Jaison Max PA-C - 11/22/2023 3:54 PM EDT Nail dremmel for nail trimming might help, would need assistance documented in this encounterSelect Medical [facility]06-25-2024 History of Present illness Narrative* Jaison Max PA-C - 11/22/2023 3:40 PM EDT 68 year old male with c/o 6-month follow-up Last visit Dr. 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 Aric Huston Current medications: Apixaban 5 mg twice daily Divalproex DR 500 mg 1 tablet twice daily No seizures. 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) retirement current use of 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 Non-rheumatic tricuspid valve insufficiency Mitral valve insufficiency, unspecified etiology Left atrial enlargement Enlarged thoracic aorta (hcc) Primary pulmonary htn (hcc) Primary hypertension Mixed hyperlipidemia Cardiovascular interval hx: Last cardiology visit 08/04/2023 with Rakel Hodgson NP-C: Stable from a cardiac standpoint 10/14/2022 ECG: Atrial fibrillation with rapid ventricular response, nonspecific ST abnormality 11/19/2020 ED visit SOB with negative work up with normal EKG, CXR, troponins, routine lab 10/20/2022 EKG atrial fibrillation with rapid ventricular response, nonspecific ST abnormality 07/14/[address] James: stable AF, no concerns 09/08/2015 Dr. James [place]: cardiac cath: no disease 09/08/2015 cardiac catheterization [facility] Dr. 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 Author Type: Physician Outreach Consultant Type: Progress Notes Filed: 11/28/2023 09:49 Note Text: 68 year old male with c/o 6-month follow-up Last visit Dr. 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 Aric Huston Current medications: Apixaban 5 mg twice daily Divalproex DR 500 mg 1 tablet twice daily No seizures. 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 James [place]: cardiac cath: no disease 09/08/2015 cardiac catheterization [facility] Dr. James: - primary rhythm atrial [...] none. Lab review: 06/23/2023 external lab work [facility], Chemistry abnormals: BUN 21 Serum creatinine 1.59H, [...] Lymph 1.00 - 4.00 k/uL 1.57 2.35 [place]% % 9.8 11.3 Abs [place] <0.87 k/uL 0.66 0.98 (H) Eosin% % [...] hypertension, hyperlipide (more content not included)...[facility]06-11-2024 Telephone encounter Note* Telephone Encounter [...] Yolanda Bryant November 08, 2023 10:11 AM [facility]06-11-2024 Miscellaneous Notes* Telephone Encounter - Yolanda Newman [...] 08, 2023 10:11 AM documented in this encounterSelect [facility]06-03-2024 Telephone encounter Note * Telephone Encounter - [...] 11/22/2023 Please advise. Thank you. Bree Johnson. [facility]06-03-2024 Miscellaneous Notes* Telephone Encounter - Bree Sosa [...] Thank you. Bree Johnson. documented in this encounterSelect Medical [facility]ty [facility]07-11-2023 History of Present illness Narrative* Sarah Leone PA - 12/07/2022 2:05 PM EDT This note was created using [employer] Intelligent Oilfield Solutionsriter. Subjective Reina Sullivan is a 67 year [...] PAST MEDICAL HISTORY Diagnosis Date Atrial fibrillation ([facility]) Dr. 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 Huston TBI (traumatic brain injury) ([facility]) 2 times PAST SURGICAL HISTORY Procedure Laterality [...] ER evaluation. CYNTHIA White documented in this encounterSelect Medical [facility]05-04-2023 History of Past illness Narrative* Problem Noted [...] of this encounter (statuses as of 09/30/2022) [facility]-04-2023 History of Past illness Narrative* Problem Noted [...] of this encounter (statuses as of 12/08/2022) [facility]04-[facility]23 History of Present illness Narrative* Aric Zapien [...] PAST MEDICAL HISTORY Diagnosis Date Atrial fibrillation ([facility]) Dr. 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 Huston TBI (traumatic brain injury) ([facility]) 2 times PAST SURGICAL HISTORY Procedure Laterality [...] - ICD9: 416.0, ICD10: I27.0 - per [place] cardiology 4. Primary hypertension - ICD9: 401.9, [...] M79.609 - CONSULT TO PODIATRY Aric Zapien RTO in two weeks. documented in this encounterSelect Medical [facility]01-20-2023 Miscellaneous Notes* Telephone Encounter - Karla Ferguson [...] pharmacy. No need to notify patient. Jesi Quintero Pss documented in this encounterSelect Medical Specialty [facility]01-13-2023 History of Present illness Narrative* Leanna Benavidez RN - 06/11/2022 11:32 AM EST ACM COLEMAN RN Afsaneh Mercedes, My name is Leanna Benavidez RN. I am calling from [facility]. Your Healthcare team and Medicare provider would like to assist in your success in taking prescribed medications for cardiovascular health and/or diabetes. Is this a good time to talk with you? NO Called patient, home line no answer just rings, home phone [phone] not working Thank you - Leanna Benavidez RN Patient identified by name and date of . Patient Attributed To: QAE Payer: [facility] Reason for review or outreach: Medication Adherence Medication Adherence Review Details: Diabetes Summary / Findings: As per above Action Taken: Data submitted to Payer Other Contact made with patient: No, Unable to leave message Leanna Benavidez RN Signature: Leanna Benavidez RN documented in this encounterSelect Medical Specialty [facility]11-29-2022 Miscellaneous Notes* Telephone Encounter - Vickie Badillo Pss - 04/27/2022 1:45 PM EST The patient declined an appointment with general JARRETT. Soonest appointment at [place] is 08/16/22. Please advise. * Telephone Encounter - Berenice Weston Pss - 04/27/2022 11:49 AM EST Patient returned call and stated there is no way he can drive, or his friend is able to drive all the way to [place] for an appt. Requesting call back from nurse to discuss soonest appt herein [place]. Please advise. * Telephone Encounter - Vickie [...] studies. Aric Huston MD documented in this encounterSelect Medical Special[facility]11-28-2022 History of Present illness Narrative* Felicita Ruiz, [...] DEPARTMENT: MR; Exam(s) Completed: Head: Routine Brain [place] MRA Neck: Carotids MRA, bilateral PERIPHERAL IV DATA: Not applicable SIGNED BY: RT Rajendra(R) April 26, 2022 1:58 PM documented in this encounterSelect Medical [facility]11-16-2022 Miscellaneous Notes* Telephone Encounter - Jovana [place] [...] Provider: Jaison MAX PA-C documented in this encounterSelect Medical Specialty [facility]11-14-2022 Miscellaneous Notes* Telephone Encounter - Aric Huston [...] ER. Aric Huston MD documented in this encounterSelect Medical Specialty [facility]11-14-2022 History of Present illness Narrative* Aric Huston [...] 12, 2022 3:18 PM documented in this encounterSelect Medical Special[facility]11-14-2022 Instructions* Patient Instructions* Marni Hare, OD - 04/12/2022 3:12 PM EST Use Refresh or Systane gel nightly in both eyes documented in this encounterSelect Medical Specialty [facility]11-04-2022 Miscellaneous Notes* Telephone Encounter - Pam Venegas [...] and pasted from Results documented in this encounterSelect Medical Specialty [facility]11-03-2022 History of Present illness Narrative* Aric Zapien [...] ordered. 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 MEDICATIONS: Current Outpatient Medications Medication Sig divalproex [...] (HCC) Dr. 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 Huston TBI (traumatic brain injury) 2 [...] AAA Aric Zapien MD [facility] Miscellaneous Notes* Telephone Encounter - Vania Heard [...] Thanks, Janusz Max PA-C documented in this [facility] History of Present illness Narrative* Lolis Jimenez [...] don't fit properly- does fine without them. [place] anxious, stressed, angry, irritable, lonely, isolated, or [...] in the medical record. Dr. Huston neurology [place] [facility] Medical/Family history review Reviewed and updated [...] Lymph 1.00 - 4.00 k/uL 1.87 1.93 [place]% % 9.0 7.2 Abs [place] <0.87 k/uL 0.78 0.54 E[place]% % 0.9 [...] OPHTHALMOLOGY Jaison Max PA-C documented in this [facility] History of Past illness Narrative* Problem Noted Date Diagnosed Date Resolved Date Encounter for hepatitis C sc reening test for low risk patient 03/09/2022 09/30/2022 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 status epilepticus 06/27/2020 03/25/2021 Hyperglycemia 03/23/2017 03/26/2021 documented as of this encounter (statuses as of 04/03/2023) [facility] History of Present illness Narrative* Aric Huston [...] prior head trauma. Prior records requested from [facility] Unclear if currentsymptoms described above of [...] have yet to receive requested records from [facility] and I have asked the patient to contact that practice to aid in retrieval of records. Pt states since last visit he had some strokes, 3 of them, for which he was treated in [place] and up in [place] or something like that. 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 documented in this encounterSelect [facility]-07-2022 Miscellaneous Notes* Telephone Encounter - Kayleen Quintero [...] and advise. Mecca Orozco documented in this encounterSelect [facility]09-27-2022 History of Present illness Narrative* Joceline Waldron RN - 02/23/2022 2:29 PM EDT ACM COLEMAN RN Action/FYI: Chart review completed for Medication Adherence - Statin Use in Patients with Cardiovascular Disease at the request of [employer] ([facility]). No statin order noted. No statin [...] with Cardiovascular Disease is based on 2013 [place] [employer]/[place] [employer] (ACC/AHA) guidelines which recommends moderate tohigh-intensity statin therapy for prevention of ASCVD events. Patient Attributed To: [facility] Payer: [facility] Reason for review or outreach: Medication Adherence Medication Adherence Review Details: Cholesterol, Hypertension, and Diabetes Summary / Findings: See Above Action Taken: Encounter routed to provider Contact made with patient: No, Chart review only. Signature: Joceline Waldron RN documented in this encounterSelect [facility]04-28-[facility]22 History of Present illness Narrative* Aric Zapien [...] (HCC) Dr. 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 Huston TBI (traumatic brain injury) ([facility]) 2 times PAST SURGICAL HISTORY Procedure Laterality [...] prn. Medical Decision Making documented in this encounterSelect [facility]21 History of Present illness Narrative* Machelle Funez, [...] 12, 2021 2:38 PM documented in this encounterSelect [facility]29-[facility]21 History of Past illness Narrative* Problem Noted Date Resolved Date 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 status epilepticus 06/27/2020 03/25/2021 Hyperglycemia 03/23/2017 03/26/2021 documented as of this encounter (statuses as of 09/11/2021) [address]29-2021 History of Past illness Narrative* Problem Noted Date Resolved Date 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 status epilepticus 06/27/2020 03/25/2021 Hyperglycemia 03/23/2017 03/26/2021 documented as of this encounter (statuses as of 09/24/2021) [address]29-2021 History of Past illness Narrative* Problem Noted Date Resolved Date 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 status epilepticus 06/27/2020 03/25/2021 Hyperglycemia 03/23/2017 03/26/2021 documented as of this encounter (statuses as of 03/05/2022) [address]29-2021 History of Past illness Narrative* Problem Noted Date Resolved Date 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 status epilepticus 06/27/2020 03/25/2021 Hyperglycemia 03/23/2017 03/26/2021 documented as of this encounter (statuses as of 03/08/2022) [address]29-2021 History of Past illness Narrative* Problem Noted Date Resolved Date 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 status epilepticus 06/27/2020 03/25/2021 Hyperglycemia 03/23/2017 03/26/2021 documented as of this encounter (statuses as of 03/10/2022) [address]29-2021 History of Past illness Narrative* Problem Noted Date Resolved Date 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 status epilepticus 06/27/2020 03/25/2021 Hyperglycemia 03/23/2017 03/26/2021 documented as of this encounter (statuses as of 03/16/2022) [facility] History of Past illness Narrative* Problem Noted Date Resolved Date 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 status epilepticus 06/27/2020 03/25/2021 Hyperglycemia 03/23/2017 03/26/2021 documented as of this encounter (statuses as of 03/26/2022) [facility] History of Past illness Narrative* Problem Noted Date Resolved Date 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 status epilepticus 06/27/2020 03/25/2021 Hyperglycemia 03/23/2017 03/26/2021 documented as of this encounter (statuses as of 04/01/2022) [facility] History of Past illness Narrative* Problem Noted Date Resolved Date 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 status epilepticus 06/27/2020 03/25/2021 Hyperglycemia 03/23/2017 03/26/2021 documented as of this encounter (statuses as of 04/02/2022) [facility] History of Past illness Narrative* Problem Noted Date Resolved Date 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 status epilepticus 06/27/2020 03/25/2021 Hyperglycemia 03/23/2017 03/26/2021 documented as of this encounter (statuses as of 04/13/2022) [address]29-2021 History of Past illness Narrative* Problem Noted Date Resolved Date 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 status epilepticus 06/27/2020 03/25/2021 Hyperglycemia 03/23/2017 03/26/2021 documented as of this encounter (statuses as of 04/13/2022) [address]29-2021 History of Past illness Narrative* Problem Noted Date Resolved Date 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 status epilepticus 06/27/2020 03/25/2021 Hyperglycemia 03/23/2017 03/26/2021 documented as of this encounter (statuses as of 04/14/2022) [address]29-2021 History of Past illness Narrative* Problem Noted Date Resolved Date 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 status epilepticus 06/27/2020 03/25/2021 Hyperglycemia 03/23/2017 03/26/2021 documented as of this encounter (statuses as of 04/27/2022) [facility] History of Past illness Narrative* Problem Noted Date Resolved Date 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 status epilepticus 06/27/2020 03/25/2021 Hyperglycemia 03/23/2017 03/26/2021 documented as of this encounter (statuses as of 06/11/2022) [facility] History of Past illness Narrative* Problem Noted Date Resolved Date 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 status epilepticus 06/27/2020 03/25/2021 Hyperglycemia 03/23/2017 03/26/2021 documented as of this encounter (statuses as of 06/18/2022) [facility] Author Liza Cho [facility] Note Date/Time March 08, 2025 1 2:39pm [facility] Medical Records Department [address] [place] [address] Emergency Department Summary 03/08/25 MR#: [id number] Acct: [id number] Name: REINA SULLIVAN Rep #:[id number] : 1955 70 From: Liza Cho MD PCP: Dr. Aric Zapien MD Status:REG E R Location: ED HPI History of Present Illness Chief Complaint: Head Injury Narrative Narrative: Patient is a 70-year-old male presenting to the emergency department for a fall with head trauma. Patient is on Eliquis for atrial fibrillation. Patient has apast medical history of hypertension, hyperlipidemia, mitral and tricuspid regurgitation, cerebrovascular disease. Patient states that he stood up from a recliner and leaned forward when he was standing up causing him to lose his balance and he fell forward striking the top of his head. States he lives at a nursing facility and he could not get up by himself so he pressed his call lightand they helped him up. He endorses pain at the top of his head where he hit it. Denies any neck or back pain. Denies any chest pain, abdominal pain, hip pain or pain in his arms or legs. Uses a cane to ambulate, has not walked since the fall. [facility] Medical History Essential hypertension Hx of thyroiditis Type 2 diabetes mellitus TIA (transient ischemic attack) ID (myocardial infarction) Hyperlipidemia Atrial fibrillation with rapid [...] Migraine headache Syncope and collapse Home Medications ?Medication ?Instructions ?Recorded ?Last Taken ?Type divalproex 500 mg tablet,delayed 500 mg PO BID 3 Unknown History release (Depakote) metformin 500 mg tablet,extended 500 mg PO DAILY 11/15 Unknown History release 24 hr acetaminophen 500 mg tablet 1,000 mg PO Q6H PRN Pain 0 11/17/22 Unknown History furosemide 40 mg tablet 40 mg PO DAILY 11/17/22 Unkn own History blood pressure test kit-medium #1 ea 06/23/23 Unknown Rx diltiazem HCl 240 mg 240 mg PO DAILY #90 caps 01/20 Unknown Rx capsule,extended release 24 hr metoprolol succinate 50 mg 50 mg PO DAILY #90 tabs 12/20 Unknown Rx tablet,extended release 24 hr (Toprol XL) apixaban 5 mg tablet 5 mg PO BID #180 tabs Unknown Rx lisinopril 2.5 mg tablet 2.5 mg PO DAILY 07/09/24 Unk nown History methocarbamol 500 mg tablet 500 mg PO Q8H 07/09/24 Unk nown History colchicine 0.6 mg capsule 0.6 mg PO BID PRN joint pain #20 07/11/24 Unknown Rx caps prednisone 20 mg tablet 40 mg (2 x 20 mg) PO BREAKFA ST #6 07/11/24 Unknown Rx tabs Allergy/AdvReac Type Severity Reaction Status Date / Time Iodinated Contrast Media Allergy Severe Anaphylaxis Verified 07/09/24 08:27 (CONTRASTS) Family History Mother Alzheimer disease Breast cancer Atrial fibrillation Father Hypertension Hyperlipidemia Atrial fibrillation [place] Brother Heart disease Sister Breast cancer Son Seizures Autism Surgical History History of left heart catheterization (LHC) (~09/08/15) Social History household members: none Smoking Status: Former smoker how long ago did patient quit smokin alcohol intake: never substance use type: does not use caffeine: No ROS ROS ED ROS Narrative See HPI EXAM Physical Exam Narrative Exam Narrative: Vital signs: Reviewed General: Alert and oriented x 3. No acute distress. Chronically ill-appearing HEENT: Head is normocephalic. Tenderness to palpation at the crown of the head. There is no cephalohematoma, lacerations or abrasions to the head or face. Midface is stable and nontender to palpation. Pupils 2 mm equal round and reactive. Nares are patent. No septal hematoma oropharynx and throat exams normal. No oropharyngeal trauma Neck: Supple without lymphadenopathy nontender. No midline cervical spinal tenderness to palpation. No step-offs or deformities. Cardiovascular: Regular rate and rhythm, no murmurs. No rubs or gallops. Normal S1 and S2 Respiratory: Clear to auscultation bilaterally. No wheezes, rales, rhonchi Chest: Chest wall is atraumatic and nontender to palpation. No crepitus, erythema or ecchymosis to the chest wall. Abdominal: Soft and nontender. Normal bowel sounds. No guarding or rebound. Nonsurgical abdomen Extremities: Hips are stable and nontender to palpation bilaterally. No midlinethoracic or lumbar spinal tenderness to palpation. No step-offs or deformities. Extremities are atraumatic and nontender to palpation with normal active range of motion. Normal sensation. Skin: No rash or redness. Neurological: Cranial nerves II through XII are grossly intact. Normal strengthand sensation. Normal cerebellar function The rest of the physical exam is unremarkable Const Vital Signs: 03/08/25 11:11 03/08/25 11:11 Temperature 97.9 F Temperature Source Oral Pulse Rate 108 H Respiratory Rate 18 Respiratory Effort Normal Blood Pressure 141/96 H Blood Pressure Mean 111 Pulse Ox 97 Oxygen Delivery Method Room Air MDM MDM MDM Narrative Medical decision making narrative: Patient is a 70-year-old male presenting to the emergency department after a fall with head trauma on Eliquis. Patient was seen and examined. Vitals are stable. Patient resting in bed comfortably in no acute distress. Given Tylenolfor his headache. Patient states that he lost his balance causing him to fall forward and strike his head. Given his age and use of Eliquis a CT scan of his brain and cervical spine will be obtained. There were no other traumatic findings seen on physicalexam that necessitate additional CT or x-ray imaging. States that he lost his balance. He denies any prodromal symptoms prior to the fall including chest pain, shortness of breath, abdominal pain, lightheadedness, dizziness. He did not lose consciousness. I do not think that he needs any labs or EKG done givenit sounds mechanical in nature. CT brain reviewed myself, no evidence of acute intracranial abnormalities. Radiology read in agreement. CT cervical spine with no evidence of acute fracture. Patient ambulated without difficulty to andfrom the bathroom multiple times. I updated the patient and brother at bedside about the negative imaging findings. Patient discharged from the Emergency Department. I do not feel that the patient's evaluation reveals any acute reasonfor admission at this time. I instructed them to either follow-up with their primary care physician or promptly return to the Emergency Department for reevaluation should symptoms worsen or new symptoms develop. I explained what symptoms would indicate the need to return to the emergency department. Shared decision making was used. The patient voiced understanding of the treatment planand is agreeable with it. Clinical impression: fall Head injury History & Record Review Discussion w/independent historian: Patient Radiography Diagnostic Testing: Clinical Impression(s) from Imaging Studies Brain CT 03/08/25 11:22 IMPRESSION: 1. No evidence of intracranial hemorrhage or acute ischemia. 2. Changes of chronic microvascular ischemia and severe volume loss. Reading Location: [facility] Cervical Spine CT 03/08/25 11:22 IMPRESSION: No evidence of acute fracture. Spondylosis. Reading Location: [address] Discharge Plan Triage Chief Complaint: Head Injury ED Provider: Liza Cho Dx/Rx/DC Orders Clinical Impression: Fall, Head injury Instructions: ED Head Injury (Adult), ED Fall Prevention Prescriptions: No Action metformin 500 mg tablet extended release 24 hr 500 mg PO DAILY Patient Comments: take 1 tablet by mouth once daily with breakfast furosemide 40 mg tablet 40 mg PO DAILY (DME) blood pressure test kit-medium Kit See Rx Instructions .Route Qty: 1 0RF Rx Instructions: As directed acetaminophen 500 mg tablet 1,000 mg PO Q6H PRN (Reason: Pain) divalproex [Depakote] 500 mg tablet,delayed release (DR/EC) 500 mg PO BID methocarbamol 500 mg tablet 500 mg PO Q8H lisinopril 2.5 mg tablet 2.5 mg PO DAILY prednisone 20 mg Tablet 40 mg PO BREAKFAST Qty: 6 0RF colchicine 0.6 mg Capsule 0.6 mg PO BID PRN (Reason: joint pain) Qty: 20 0RF diltiazem HCl 240 mg capsule,extended release 24hr 240 mg PO DAILY Qty: 90 3RF Patient Comments: heart metoprolol succinate [Toprol XL] 50 mg tablet extended release 24 hr 50 mg PO DAILY Qty: 90 3RF apixaban 5 mg tablet 5 mg PO BID Qty: 180 3RF Patient Comments: blood thinner Primary Care Provider: Aric Zapien Referrals: Aric Zapien MD [Primary Care Provider, Medical] - As soon as possible Activity Restrictions/Additional Instructions: Your evaluation in the Emergency Department did not reveal any acute reason for admission. However, I want to emphasize that you may be early in the course of adisease process or illness even if it is not present. For this reason you shouldfollow-up within 24 hours for reevaluation with either your primary care physician or if necessary back here in the Emergency Department. You should return to the Emergency Department immediately if your symptoms worsen or new symptoms develop. Print Language: Swedish Disposition Disposition: Home, Self Care What to do if you have Problems For any increased pain, shortness of breath, bleeding, nausea or vomiting, chestpain, or any unexpected problems, contact your Primary Care Provider. Call [facility] ([phone]) or report to the closest Emergency Room. Call 911 if necessary. 03/08/25 1239 <Electronically signed by Liza Cho MD> Cosigner Signature (if applicable): CC: Dr. Aric Zapien MD ~ Signed [facility] Work Phone: Evaluation note* Diagnosis Type 2 diabetes mellitus without complication, without long-term current use of insulin (HCC) documented [facility] this encounter [facility]* Diagnosis 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 (HCC)- Primary [...] specified viral diseases documented in this encounter [facility]* Diagnosis Seizures (HCC) Other convulsions documented in this encounter [facility] noteNo assessment information availableWMemorial Health [facility] Work Phone: Evaluation note* Diagnosis 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 status epilepticus, unspecified epilepsy type (HCC)- Primary Seizures (HCC) Other convulsions documented in this encounter [facility]* Diagnosis Medicare annual wellness [...] lateral visual alexandra documented in this encounter [facility]* Diagnosis 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 [...] unspecified cardiovascular conditions documented in this encounter [facility]* Diagnosis Nonintractable epilepsy without status epilepticus, unspecified epilepsy type (HCC)- Primary documented in this encounter [facility]* Diagnosis Left homonymous inferior quadrantanopia- Primary Myopia, bilateral Myopia Presbyopia Regular astigmatism of left eye Regular astigmatism Combined forms of age-related cataract of both eyes Other and combined forms of senile cataract Punctate keratitis, bilateral documented in this encounter [facility]* Diagnosis Other symptoms and signs involving the nervous system- Primary documented in this encounter [facility]* Diagnosis Elevated serum creatinine- Primary Other nonspecific findings on examination of blood [facility]* Diagnosis Seizures (HCC) Other convulsions documented in this encounter [facility]* Diagnosis Seizures (HCC)- Primary [...] Dermatophytosis of nail documented in this encounter [facility]* Diagnosis Sore throat- Primary Acute pharyngitis URI, acute Acute upper respiratory infections of unspecified site documented [facility] this encounter [facility]* Diagnosis 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 status epilepticus, unspecified epilepsy type (HCC) Other symptoms and signs involving the nervous system documented in this encounter [facility]* Diagnosis Onset Date Resolution Status Atrial fibrillation with rapid ventricular response acute Essential hypertension chron ic Valvular heart disease [facility] ic [facility] Work Phone: Evaluation note* Diagnosis Pulmonary hypertension (HCC) Other chronic pulmonary heart diseases Edema, unspecified type documented in this encounter [facility]* Diagnosis Type 2 diabetes mellitus without complication, without long-term current use of insulin (HCC) documented in this encounter [facility]* Diagnosis 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, late effect of cerebrovascular disease Seizures (HCC) Other convulsions Mitral valve insufficiency, unspecified etiology Non-rheumatic tricuspid valve insufficiency Tricuspid valve disorders, specified as nonrheumatic Left atrial enlargement Cardiomegaly 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 (HCC) 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 Long-term (current) [...] disease of nail documented in this encounter [facility]* Diagnosis Acute right ankle pain Foot pain, right Pain in limb documented in this encounter [facility] note* Diagnosis Seizures (HCC) Other convulsions documented in this encounter [facility] note* Diagnosis Type 2 diabetes mellitus without complication, without long-term current use of insulin (HCC)- Primary Fall, initial encounter Screening for lipid disorders Acute low back pain without sciatica, unspecified back pain laterality Fall, initial encounter documented in this encounter [facility]* Diagnosis Compression fracture of L1 vertebra, initial encounter (HCC)- Primary documented in this encounter [facility] note* Diagnosis Type 2 diabetes mellitus without complication, without long-term current use of insulin (HCC)- Primary [facility] Discharge instructionsAdditional Instructions Your evaluation in the Emergency Department did not reveal any acute reason for admission. However, I want to emphasize that you may be early in the course of a disease process or illness even if it is not present. For this reason you should follow-up within 24 hours for reevaluation with either your primary care physician or if necessary back here in the Emergency Department. You should return to the Emergency Department immediately if your symptoms worsen or new symptoms develop.[facility] Work Phone: Reason for referral (narrative)* Outpatient Procedure (Routine) - Pending Review Specialty Diagnoses / Procedures Referred By Jacqueline t Referred To Contact [facility] Diagnoses 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 status epilepticus, unspecified epilepsy type (HCC) Procedures EPIL EEG ROUTINE ELECTROENCEPHALOGRAM REC COMA/SLEEP ONLY Aric Huston Jr., MD [address] [facility] [address] [place] [address] [facility] [address] [place] [address] Referral ID Status Reason Start Date Expiration Date Visits Requested Visits Authorized [id number] Pending Review Auto-Generat ed Referral 2 03/08/2023 1 1 * MRI/CT (Routine) - Authorized Specialty Diagnoses / Procedures Referred By Contac t Referred To Contact MR IMAGING Diagnoses 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 status epilepticus, unspecified epilepsy type (HCC) Procedures MRI BRAIN WO IVCON MRI BRAIN BRAIN STEM W/O CONTRAST MATERIAL Aric Huston Jr., MD [address] [facility] [address] [place] [address] Mr Imaging Referral ID Status Reason Start Date Expiration Date Visits Requested Visits Authorized [id number] Authorized Auto-Generat ed Referral 2 04/07/2023 1 1 [facility] for referral (narrative)* Outpatient Procedure (Routine) - Pending Review Specialty Diagnoses / Procedures [facility] Diagnoses 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 (HCC) Non-rheumatic tricuspid valve insufficiency Mitral valve insufficiency, unspecified etiology Primary pulmonary HTN (HCC) Enlarged thoracic aorta (HCC) Procedures ECHO ECHO TTHRC R-T 2D W/WOM-MODE COMPL SPEC&COLR Jaison Tyler PA-C [address] [place] [address] [facility] [address] [place] [address] Referral ID Status Reason Start Date Expiration Date Visits Requested Visits Authorized [id number] Pending Review Auto-Generat ed Referral 2 03/10/2023 1 1 * Consult, Test, Treat (Routine) - Pending Review Specialty Diagnoses / Procedures Referred By Contac t Referred To Contact Dermatology Diagnoses Multiple atypical skin moles Procedures CONSULT TO DERMATOLOGY OFFICE/OUTPATIENT [facility] 60-74 MINUTES Jaison Max PA-C [address] [place] [address] Referral ID Status Reason Start Date Expiration Date Visits Requested Visits Authorized [id number] Pending Review PCP Requested Referral 2 03/09/2023 1 1 * Consult, Test, Treat (Routine) - Authorized Specialty Diagnoses / Procedures Referred By Contac t Referred To Contact Ophthalmology Diagnoses Presbyopia of both eyes Loss of lateral visual alexandra Procedures CONSULT TO OPHTHALMOLOGY OFFICE/OUTPATIENT [facility] 60-74 MINUTES Jaison Max PA-C [address] [place] [address] Referral ID Status Reason Start Date Expiration Date Visits Requested Visits Authorized [id number] Authorized PCP Requested Referral 2 03/09/2023 1 1 [facility] for referral (narrative)* Diagnostic Procedure Only (Routine) - Authorized Specialty Diagnoses / Procedures Referred By Contac t Referred To Contact US IMAGING Diagnoses Screening for AAA (abdominal aortic aneurysm) Procedures US SCREENING FOR AAA (2017) US ABDOMINAL AORTA REAL TIME SCREEN STUDY AAA Aric Zapien MD [address] [place] [address] Us Imaging Referral ID Status Reason Start Date Expiration Date Visits Requested Visits Authorized [id number] Authorized Auto-Generat ed Referral 04/01/2022 05/01/2023 1 1 * Consult, Test, Treat (Routine) - Pending Review Specialty Diagnoses / Procedures Referred By Contac t Referred To Contact Cardiology Diagnoses 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 (HCC) Enlarged thoracic aorta (HCC) Procedures CONSULT TO CARDIOLOGY OFFICE/OUTPATIENT [facility] 60-74 MINUTES Aric Zapien MD [address] [place] [address] Referral ID Status Reason Start Date Expiration Date Visits Requested Visits Authorized [id number] Pending Review PCP Requested Referral 04/01/2022 04/01/2023 1 1 [facility] for referral (narrative)* Outpatient Procedure (Routine) - Authorized Specialty Diagnoses / Procedures Referred By Peymanac t Referred To Contact [facility] Diagnoses Peripheral vascular disease (HCC) Procedures PVR LEG [facility] NON-INVASIVE PHYSIOLOGIC STUDY EXTREMITY 3 DANYLS Aric Zapien MD [address] [place] [address] [facility] [address] [place] [address] Referral ID Status Reason Start Date Expiration Date Visits Requested Visits Authorized [id number] Authorized Auto-Generat ed Referral 09/30/2022 09/30/2023 1 1 * Consult, Test, Treat (Routine) - Authorized Specialty Diagnoses / Procedures Referred By Jacqueline t Referred To Contact Podiatry Diagnoses Type 2 diabetes mellitus without complication, without long-term current use of insulin (HCC) Pain due to onychomycosis of nail Procedures CONSULT TO PODIATRY OFFICE/OUTPATIENT NEW HIGH MDM 60-74 MINUTES Aric Zapien MD [address] [place] [address] Referral ID Status Reason Start Date Expiration Date Visits Requested Visits Authorized [id number] Authorized PCP Requested Referral 09/30/2022 09/30/2023 1 1 * Diagnostic Procedure Only (Routine) - Authorized Specialty Diagnoses / Procedures Referred By Jacqueline t Referred To Contact US IMAGING Diagnoses Screening for AAA (abdominal aortic aneurysm) Procedures US SCREENING FOR AAA (2017) US ABDOMINAL AORTA REAL TIME SCREEN STUDY AAA Aric Zapien MD [address] [place] [address] Us Imaging Referral ID Status Reason Start Date Expiration Date Visits Requested Visits Authorized [id number] Authorized Auto-Generat ed Referral 09/30/2022 10/30/2023 1 1 [facility] for referral (narrative)* Diagnostic Procedure Only (Urgent) - Closed Specialty Diagnoses / Procedures Referred By Contac t Referred To Contact XR IMAGING Diagnoses Foot pain, right Procedures XR FOOT GENERAL 3V AP/LAT/OBL RT X-RAY FOOT MINIMUM 3 VIEWS Quang Bowman MD [address] [place] [address] [place] [address] Referral ID Status Reason Start Date Expiration Date V isits Requested Visits Authorized [id number] Closed Auto-Generate d Referral 03/12/2021 04/11/2022 1 1 * Diagnostic Procedure Only (Urgent) - Closed Specialty Diagnoses / Procedures Referred By Contac t Referred To Contact XR IMAGING Diagnoses Acute right ankle pain Procedures XR ANKLE GENERAL 3V AP/LAT/OBL RT X-RAY ANKLE MINIMUM 3 VIEWS Quang Bowman MD [address] [place] [address] [place] [address] Referral ID Status Reason Start Date Expiration Date V isits Requested Visits Authorized [id number] Closed Auto-Generate d Referral 03/12/2021 05/29/2021 1 1 [facility] for referral (narrative)* Diagnostic Procedure Only (Urgent) - Closed Specialty Diagnoses / Procedures Referred By Contac t Referred To Contact XR IMAGING Diagnoses Chronic low back pain without sciatica, unspecified back pain laterality Fall, initial encounter Procedures XR LUMBAR GENERAL 3V AP/LAT/L5-S1 RADEX SPINE LUMBOSACRAL 2/3 VIEWS Florinda Stevenson APRN.CNP [address] [place] [address] [place] [address] Referral ID Status Reason Start Date Expiration Date V isits Requested Visits Authorized [id number] Closed Auto-Generate d Referral 06/22/2024 07/22/2025 1 1 [facility])No reason for referral information availableWMem[facility] Phone: Reason for visit Narrative* Diagnostic Procedure Only (Urgent) - Closed Specialty Diagnoses / Procedures Referred By Contac t Referred To Contact XR IMAGING Diagnoses Acute right ankle pain Procedures XR ANKLE GENERAL 3V AP/LAT/OBL RT X-RAY ANKLE MINIMUM 3 VIEWS Quang Bowman MD [address] [place] [address] [place] [address] Referral ID Status Reason Start Date Expiration Date V isits Requested Visits Authorized [id number] Closed Auto-Generate d Referral 03/12/2021 05/29/2021 1 1 [facility] Reason for Referral Specialty Diagnoses / Procedures Referred By Contac t Referred To Contact Ophthalmology Diagnoses Type 2 diabetes mellitus without complication, without long-term current use of insulin (HCC) Procedures CONSULT TO OPHTHALMOLOGY OFFICE/OUTPATIENT [facility] 60-74 MINUTES Aric Zapien MD [address] [place] [address] Referral ID Status Reason Start Date Expiration Date Visits Requested Visits Authorized [id number] Authorized PCP Requested Referral 09/24/2021 09/24/2022 1 1 Specialty Diagnoses / Procedures Referred By Contac t Referred To Contact Neurology Diagnoses Seizures (HCC) Procedures CONSULT TO NEUROLOGY OFFICE/OUTPATIENT [facility] 60-74 MINUTES Aric Zapien MD [address] [place] [address] Referral ID Status Reason Start Date Expiration Date Visits Requested Visits Authorized [id number] Pending Review PCP Requested Referral 09/24/2021 09/24/2022 1 1 Specialty Diagnoses / Procedures Referred By Contac t Referred To Contact Cardiology Diagnoses 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 (HCC) Primary pulmonary HTN (HCC) Enlarged thoracic aorta (HCC) Mitral valve insufficiency, unspecified etiology Non-rheumatic tricuspid valve insufficiency Procedures CONSULT TO CARDIOLOGY Aric Zapien MD [address] [place] [address] Referral ID Status Reason Start Date Expiration Date Visits Requested Visits Authorized [id number] Ref Not Required PCP Requested Referral 09/24/2021 09/24/2022 1 1 Specialty Diagnoses / Procedures Referred By Contac t Referred To Contact MR IMAGING Diagnoses Other symptoms and signs involving the nervous system Procedures MRA CAROTID WO IVCON MRA, NECK; W/O CONTRAST Aric Huston Jr., MD [address] [facility] [address] [place] [address] Mr Imaging Referral ID Status Reason Start Date Expiration Date Visits Requested Visits Authorized [id number] Pending Review Auto-Generat ed Referral 05/12/2023 1 1 Specialty Diagnoses / Procedures Referred By Contac t Referred To Contact MR IMAGING Diagnoses Other symptoms and signs involving the nervous system Procedures MRA BRAIN WO IVCON MRA, HEAD W/O CONTRAST Aric Huston Jr., MD [address] [facility] [address] [place] [address] Mr Imaging Referral ID Status Reason Start Date Expiration Date Visits Requested Visits Authorized [id number] Pending Review Auto-Generat ed Referral 05/12/2023 1 1 Specialty Diagnoses / Procedures [facility] Referred To Contact MR IMAGING Diagnoses Other symptoms and signs involving the nervous system Procedures MRA CAROTID WO IVCON MRA, NECK; W/O CONTRAST Aric Huston Jr., MD [address] [facility] [address] [place] [address] [place] [id number] Referral ID Status Reason Start Date Expiration Date V isits Requested Visits Authorized [id number] Closed Auto-Generate d Referral 04/12/2022 05/12/2023 1 1 Specialty Diagnoses / Procedures [facility] Referred To Contact MR IMAGING Diagnoses Other symptoms and signs involving the nervous system Procedures MRA BRAIN WO IVCON MRA, HEAD W/O CONTRAST Aric Huston Jr., MD [address] [place] [address] [place] [address] Referral ID Status Reason Start Date Expiration Date V isits Requested Visits Authorized [id number] Closed Auto-Generate d Referral 04/12/2022 05/12/2023 1 1 Specialty Diagnoses / Procedures Referred By Contac t Referred To Contact MR IMAGING Diagnoses 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 status epilepticus, unspecified epilepsy type ([facility]) Procedures MRI BRAIN WO IVCON MRI BRAIN BRAIN STEM W/O CONTRAST MATERIAL Aric Huston Jr., MD [address] [facility] [address] [place] [address] [place] [address] Referral ID Status Reason Start Date Expiration Date V isits Requested Visits Authorized [id number] Closed Auto-Generate d Referral 03/08/2022 04/07/2023 1 1 Specialty Diagnoses / Procedures Referred By Contac t Referred To Contact Podiatry Diagnoses Incurvated nail Procedures CONSULT TO PODIATRY OFFICE/OUTPATIENT [facility] MDM 60 MINUTES Jaison Max PA-C [address] [place] [address] Referral ID Status Reason Start Date Expiration Date Visits Requested Visits Authorized [id number] Authorized PCP Requested Referral 11/22/2023 11/21/2024 1 1 Specialty Diagnoses / Procedures Referred By Contac t Referred To Contact US IMAGING Diagnoses Screening for abdominal aortic aneurysm Procedures US SCREENING FOR AAA (2017) US ABDOMINAL AORTA REAL TIME SCREEN STUDY AAA Jaison Max PA-C [address] [place] [address] [place] [address] Referral ID Status Reason Start Date Expiration Date Visits Requested Visits Authorized [id number] Pending Review Auto-Generat ed Referral 11/22/2023 12/21/2024 1 1 Specialty Diagnoses / Procedures Referred By Contac t Referred To Contact Diagnoses Compression fracture of L1 vertebra, initial encounter ([facility]) Procedures [facility] Florinda Stevenson APRN.REFRACTORY MIXER [address] [place] [address] Referral ID Status Reason Start Date Expiration Date Visits Requested Visits Authorized [id number] New Request PCP Requested Referral 06/22/2024 09/20/2024 [...] 4:00am LAB WORK July 23, 2024 5:00am SKILLED NURSING LAB WORK August 27, 2024 4 :00am [...] 4:00am LAB WORK July 23, 2024 5:00am SKILLED NURSING LAB WORK August 27, 2024 4 :00am [email or web address] September 26, 2024 5:1 6am Chief Complaint Admit Date SKILLED NURSING LAB WORK November 27, 2024 5:0 0am LABWORK January 02, 2025 5:0 0am LABWORK January 10, 2025 9: 50pm SKILLED NURSING LAB WORK January 21, 2025 4:00am SKILLED NURSING LAB WORK January 31 5:00am Chief Complaint Admit Date SKILLED NURSING LAB WORK November 27, 2024 5:0 0am LABWORK January 02, 2025 5:0 0am LABWORK January 10, 2025 9: 50pm SKILLED NURSING LAB WORK January 21, 2025 4:00am SKILLED NURSING LAB WORK January 31 5:00am head injury March 08, 2025 1 1:09am Family History No Family History Records Found [...] No March 06 2 11:14am Power of Environmental Assistant No March 06 022 11:14am Advance Directive Response Recorded Date/ Time Advance Directives No June 2:48pm Living Will No March 06 2 10:14am Power of Environmental Assistant No March 06 022 10:14am Advance Directive Response Recorded Date/ Time Living Will No July 09 12:44pm Do you have a Healthcare Power of Environmental Assistant? No July 09, 2024 12:44pm Advance Directives No June 3:48pm Advance Directive Response Recorded Date/ Time Advance Directives No June 3:48pm Advance Directive Response Recorded Date/ Time Do you have a Healthcare Power of Environmental Assistant? No March 08, 2025 11:11am Advance Directives No June 3:48pm Medications Administered [...] or prosecute any alcohol or drug abuse patient.[facility] the event this information is protected by the Federal Confidentiality of Alcohol and Drug Abuse Patient Records regulations: The Federal rules restrict any use of the information to criminally investigate or prosecute any alcohol or drug abuse patient.[facility] the event this information is protected by the Federal Confidentiality of Alcohol and Drug Abuse Patient Records regulations: The Federal rules restrict any use of the information to criminally investigate or prosecute any alcohol or drug abuse patient.[facility] the event this information is protected by the Federal Confidentiality of Alcohol and Drug Abuse Patient Records regulations: The Federal rules restrict any use of the information to criminally investigate or prosecute any alcohol or drug abuse patient.[facility] the event this information is protected by the Federal Confidentiality of Alcohol and Drug Abuse Patient Records regulations: The Federal rules restrict any use of the information to criminally investigate or prosecute any alcohol or drug abuse patient.[facility] the event this information is protected by the Federal Confidentiality of Alcohol and Drug Abuse Patient Records regulations: The Federal rules restrict any use of the information to criminally investigate or prosecute any alcohol or drug abuse patient.[facility] the event this information is protected by the Federal Confidentiality of Alcohol and Drug Abuse Patient Records regulations: The Federal rules restrict any use of the information to criminally investigate or prosecute any alcohol or drug abuse patient.[facility] the event this information is protected by the Federal Confidentiality of Alcohol and Drug Abuse Patient Records regulations: The Federal rules restrict any use of the information to criminally investigate or prosecute any alcohol or drug abuse patient.[facility] the event this information is protected by the Federal Confidentiality of Alcohol and Drug Abuse Patient Records regulations: The Federal rules restrict any use of the information to criminally investigate or prosecute any alcohol or drug abuse patient.[facility] the event this information is protected by the Federal Confidentiality of Alcohol and Drug Abuse Patient Records regulations: The Federal rules restrict any use of the information to criminally investigate or prosecute any alcohol or drug abuse patient.[facility] the event this information is protected by the Federal Confidentiality of Alcohol and Drug Abuse Patient Records regulations: The Federal rules restrict any use of the information to criminally investigate or prosecute any alcohol or drug abuse patient.[facility] the event this information is protected by the Federal Confidentiality of Alcohol and Drug Abuse Patient Records regulations: The Federal rules restrict any use of the information to criminally investigate or prosecute any alcohol or drug abuse patient.[facility]In the event this information is protected by the Federal Confidentiality of Alcohol and Drug Abuse Patient Records regulations: The Federal rules restrict any use of the information to criminally investigate or prosecute any alcohol or drug abuse patient.[facility]In the event this information is protected by the Federal Confidentiality of Alcohol and Drug Abuse Patient Records regulations: The Federal rules restrict any use of the information to criminally investigate or prosecute any alcohol or drug abuse patient.[facility]In the event this information is protected by the Federal Confidentiality of Alcohol and Drug Abuse Patient Records regulations: The Federal rules restrict any use of the information to criminally investigate or prosecute any alcohol or drug abuse patient.[facility] the event this information is protected by the Federal Confidentiality of Alcohol and Drug Abuse Patient Records regulations: The Federal rules restrict any use of the information to criminally investigate or prosecute any alcohol or drug abuse patient.[facility] the event this information is protected by the Federal Confidentiality of Alcohol and Drug Abuse Patient Records regulations: The Federal rules restrict any use of the information to criminally investigate or prosecute any alcohol or drug abuse patient.[facility]In the event this information is protected by the Federal Confidentiality of Alcohol and Drug Abuse Patient Records regulations: The Federal rules restrict any use of the information to criminally investigate or prosecute any alcohol or drug abuse patient.[facility] the event this information is protected by the Federal Confidentiality of Alcohol and Drug Abuse Patient Records regulations: The Federal rules restrict any use of the information to criminally investigate or prosecute any alcohol or drug abuse patient.[facility] the event this information is protected by the Federal Confidentiality of Alcohol and Drug Abuse Patient Records regulations: The Federal rules restrict any use of the information to criminally investigate or prosecute any alcohol or drug abuse patient.[facility] the event this information is protected by the Federal Confidentiality of Alcohol and Drug Abuse Patient Records regulations: The Federal rules restrict any use of the information to criminally investigate or prosecute any alcohol or drug abuse patient.[facility] the event this information is protected by the Federal Confidentiality of Alcohol and Drug Abuse Patient Records regulations: The Federal rules restrict any use of the information to criminally investigate or prosecute any alcohol or drug abuse patient.[facility]In the event this information is protected by the Federal Confidentiality of Alcohol and Drug Abuse Patient Records regulations: The Federal rules restrict any use of the information to criminally investigate or prosecute any alcohol or drug abuse patient.[facility]In the event this information is protected by the Federal Confidentiality of Alcohol and Drug Abuse Patient Records regulations: The Federal rules restrict any use of the information to criminally investigate or prosecute any alcohol or drug abuse patient.[facility]In the event this information is protected by the Federal Confidentiality of Alcohol and Drug Abuse Patient Records regulations: The Federal rules restrict any use of the information to criminally investigate or prosecute any alcohol or drug abuse patient.[facility]In the event this information is protected by the Federal Confidentiality of Alcohol and Drug Abuse Patient Records regulations: The Federal rules restrict any use of the information to criminally investigate or prosecute any alcohol or drug abuse patient.[facility]In the event this information is protected by the Federal Confidentiality of Alcohol and Drug Abuse Patient Records regulations: The Federal rules restrict any use of the information to criminally investigate or prosecute any alcohol or drug abuse patient.[facility]In the event this information is protected by the Federal Confidentiality of Alcohol and Drug Abuse Patient Records regulations: The Federal rules restrict any use of the information to criminally investigate or prosecute any alcohol or drug abuse patient.[facility] the event this information is protected by the Federal Confidentiality of Alcohol and Drug Abuse Patient Records regulations: The Federal rules restrict any use of the information to criminally investigate or prosecute any alcohol or drug abuse patient.[facility] the event this information is protected by the Federal Confidentiality of Alcohol and Drug Abuse Patient Records regulations: The Federal rules restrict any use of the information to criminally investigate or prosecute any alcohol or drug abuse patient.[facility]In the event this information is protected by the Federal Confidentiality of Alcohol and Drug Abuse Patient Records regulations: The Federal rules restrict any use of the information to criminally investigate or prosecute any alcohol or drug abuse patient.[facility]In the event this information is protected by the Federal Confidentiality of Alcohol and Drug Abuse Patient Records regulations: The Federal rules restrict any use of the information to criminally investigate or prosecute any alcohol or drug abuse patient.[facility] the event this information is protected by the Federal Confidentiality of Alcohol and Drug Abuse Patient Records regulations: The Federal rules restrict any use of the information to criminally investigate or prosecute any alcohol or drug abuse patient.[facility]hill[facility] the event this information is protected by the Federal Confidentiality of Alcohol and Drug Abuse Patient Records regulations: The Federal rules restrict any use of the information to criminally investigate or prosecute any alcohol or drug abuse patient.[facility]hill[facility] the event this information is protected by the [facility] Confidentiality of Alcohol and Drug Abuse Patient Records regulations: The Federal rules restrict any use of the information to criminally investigate or prosecute any alcohol or drug abuse patient.[facility]hill[facility] the event this information is protected by the Federal Confidentiality of Alcohol and Drug Abuse Patient Records regulations: The Federal rules restrict any use of the information to criminally investigate or prosecute any alcohol or drug abuse patient.[facility] Care Teams (unrecognized sec tion and content) Marketing Services Rep Relationship Specialty Start Date End Date Aric Zapien MD [address] [place], [place] [id number] PCP - General Family Practice 07/23/15 Marketing Services Rep Relationship Specialty Start Date End Date Aric Zapien MD [address] [place], [place] [id number] PCP - General Family Practice 07/23/15 Marketing Services Rep Relationship Specialty Start Date End Date Aric Zapien MD [address] [place], [place] [id number] PCP - General Family Medicine 07/23/15 Marketing Services Rep Relationship Specialty Start Date End Date Aric Zapien MD [address] [facility] [place] [address] PCP - General Family Medicine 07/23/15 Marketing Services Rep Relationship Specialty Start Date End Date Aric Zapien MD [address] [facility] [place] [address] PCP - General Family Medicine 07/23/15 Marketing Services Rep Relationship Specialty Start Date End Date Aric Zapien MD [address] [facility] [place] [address] PCP - General Family Medicine 07/23/15 Marketing Services Rep Relationship Specialty Start Date End Date Aric Zapien MD [address] [facility] [place] [address] PCP - General Family Medicine 07/23/15 Marketing Services Rep Relationship Specialty Start Date End Date Aric Zapien MD [address] [facility] [place] [address] PCP - General Family Medicine 07/23/15 Marketing Services Rep Relationship Specialty Start Date End Date Aric Zapien MD [address] [facility] [place] [address] PCP - General Family Medicine 07/23/15 Marketing Services Rep Relationship Specialty Start Date End Date Aric Zapien MD [address] [facility] [place] [address] PCP - General Family Medicine 07/23/15 Marketing Services Rep Relationship Specialty Start Date End Date Aric Zapien MD [address] [facility] [place] [address] PCP - General Family Medicine 07/23/15 Marketing Services Rep Relationship Specialty Start Date End Date Aric Zapien MD [address] [facility] [place] [address] PCP - General Family Medicine 07/23/15 Marketing Services Rep Relationship Specialty Start Date End Date Aric Zapien MD [address] [facility] [place] [address] PCP - General Family Medicine 07/23/15 Marketing Services Rep Relationship Specialty Start Date End Date Aric Zapine MD [address] [facility] [place] [address] PCP - General Family Medicine 07/23/15 Marketing Services Rep Relationship Specialty Start Date End Date Aric Zapien MD [address] [facility] [place] [address] PCP - General Family Medicine 07/23/15 Marketing Services Rep Relationship Specialty Start Date End Date Aric Zapien MD [address] [facility] [place] [address] PCP - General Family Medicine 07/23/15 Marketing Services Rep Relationship Specialty Start Date End Date Aric Zapien MD [address] [facility] [place] [address] PCP - General Family Medicine 07/23/15 Marketing Services Rep Relationship Specialty Start Date End Date Aric Zapien MD [address] [facility] [place] [address] PCP - General Family Medicine 07/23/15 Team Status: Active Member Role Status Dates Dr. Aric Zapien MD Family Provider Active Dr. Aric Zapien MD Primary Care Provider Active Team Status: Inactive Member Role Status Dates Dr. Aric Zapien MD Primary Care Provider, Referring Provider Active Rakel Hodgson MERCHANDISE EXECUTION LEADER, MERCHANDISE EXECUTION LEADER-C Attending Provider Active Team Status: Inactive Member Role Status Dates Dr. Aric Zapien MD Primary Care Provider Active Rakel Hodgson MERCHANDISE EXECUTION LEADER, MERCHANDISE EXECUTION LEADER-C Attending Provider, Referring P roberto Active Marketing Services Rep Relationship Specialty Start Date End Date Aric Zapien MD [address] [facility] [place] [address] PCP - General Family Medicine 07/23/15 Marketing Services Rep Relationship Specialty Start Date End Date Aric Zapien MD [address] [place], [place] [address] PCP - General Family Medicine 07/23/15 Marketing Services Rep Relationship Specialty Start Date End Date Aric Zapien MD [address] [place], [place] [address] PCP - General Family Medicine 07/23/15 Marketing Services Rep Relationship Specialty Start Date End Date Aric Zapien MD [address] [place] [address] PCP - General Family Medicine 07/23/15 Marketing Services Rep Relationship Specialty Start Date End Date Aric Zapien MD [address] [place] [address] PCP - General Family Medicine 07/23/15 Marketing Services Rep Relationship Specialty Start Date End Date Aric Zapien MD [address] [place] [address] PCP - General Family Medicine 07/23/15 Marketing Services Rep Relationship Specialty Start Date End Date Aric Zapien MD [address] [place] [address] PCP - General Family Medicine 07/23/15 Marketing Services Rep Relationship Specialty Start Date End Date Aric Zapien MD [address] [place], [place] [address] PCP - General Family Medicine 07/23/15 Meenakshi Galaviz APRN.KVNG [address] [place] [address] [facility] 05/07/24 Marketing Services Rep Relationship Specialty Start Date End Date Aric Zapien MD [address] [place] [address] PCP - General Family Medicine 07/23/15 Meenakshi Galaviz, PLASTER PATTERN CASTER.REFRACTORY MIXER [address] [facility] [place] [address] [facility]24 Florinda Stevenson PLASTER PATTERN CASTER.REFRACTORY MIXER [address] [place] [address] [facility] 05/07/24 Marketing Services Rep Relationship Specialty Start Date End Date Aric Zapien MD [address] [facility] [place] [address] PCP - General Family Medicine 07/23/15 Meenakshi Galaviz, PLASTER PATTERN CASTER.REFRACTORY MIXER [address] [facility] [place] [address] [facility] 05/07/24 Florinda Stevenson PLASTER PATTERN CASTER.REFRACTORY MIXER [address] [facility] [place] [address] [facility] 05/07/24 Marketing Services Rep Relationship Specialty Start Date End Date Aric Zapien MD [address] [facility] [place] [address] PCP - General Family Medicine 07/23/15 Meenakshi Galaviz, PLASTER PATTERN CASTER.REFRACTORY MIXER [address] [facility] [place] [place] [address] [facility] 05/07/24 Florinda Stevenson APRN.REFRACTORY MIXER [address] [facility] [place] [address] [facility] 05/07/24 Marketing Services Rep Relationship Specialty Start Date End Date Aric Zapien MD [address] [facility] [place] [address] PCP - General Family Medicine 07/23/15 Meenakshi Galaviz PLASTER PATTERN CASTER.REFRACTORY MIXER [address] [facility] [place] [address] [facility] 05/07/24 Florinda Stevenson PLASTER PATTERN CASTER.REFRACTORY MIXER [address] [facility] [place] [address] [facility] 05/07/24 Marketing Services Rep Relationship Specialty Start Date End Date Aric Zapien MD [address] [facility] [place] [address] PCP - General Family Medicine 07/23/15 Meenakshi Galaviz PLASTER PATTERN CASTER.REFRACTORY MIXER [address] [facility] [place] [place] [address] [facility] 05/07/24 Florinda Stevenson PLASTER PATTERN CASTER.REFRACTORY MIXER [address] [facility] [place] [address] [facility] 05/07/24 Marketing Services Rep Relationship Specialty Start Date End Date Aric Zapien MD [address] [place] [address] PCP - General Family Medicine 07/23/15 Meenakshi Galaviz PLASTER PATTERN CASTER.REFRACTORY MIXER [address] [facility] [place] [address] [facility] 05/07/24 Florinda Stevenson APRN.CNP [address] [place] [address] [facility] 05/07/24 Team Status: Active Member Role [...] Provider Active Start: July 11, 2024 Dr. Ynan Ascencio DO Admit Provider Active Star t: [...] September 26, 2024 End: September 26, 2024 Marketing Services Rep Relationship Specialty Start Date End Date Aric aZpien MD [address] [place] [address] PCP - General Family Medicine 2/24/16 Meenakshi Galaviz, PLASTER PATTERN CASTER.REFRACTORY MIXER [address] [place] [address] [facility] 05/07/24 Florinda Stevenson PLASTER PATTERN CASTER.REFRACTORY MIXER [address] [place] [address] [facility] 05/07/24 Team Status: Active Member Role/Relationship Status Dates Dr. Aric Zapien MD Primary care physician Active Team Status: Inactive Member Role/Relationship Status Dates Dr. Aric Zapien MD Primary care physician Active Start: November 27, 2024 End: November 27, 2024 Dr. Jigna ALMENDAREZ MD Attending physician Active Start: November 27, 2024 End: November 27, 2024 Team Status: Active Member Role/Relationship Status Dates Dr. Aric Zapien MD Primary care physician Active Start: January 02, 2025 Dr. Jigna ALMENDAREZ MD Attending physician Active Start: January 02, 2025 Team Status: Active Member Role/Relationship Status Dates Dr. Aric Zapien MD Primary care physician Active Start: January 10, 2025 Dr. Jigna ALMENDAREZ MD Attending physician Active Start: January 10, 2025 Team Status: Active Member Role/Relationship Status Dates Dr. Aric Zapien MD Primary care physician Active Start: January 21, 2025 Dr. Jigna ALMENDAREZ MD Attending physician Active Start: January 21, 2025 Dr. Jigna ALMENDAREZ MD Referring Provider Active Start: January 21, 2025 Team Status: Active Member Role/Relationship Status Dates Dr. Aric Zapien MD Primary care physician Active Start: January 31, 2025 Dr. Jigna ALMENDAREZ MD Attending physician Active Start: January 31, 2025 Team Status: Inactive Member Role/Relationship Status Dates Dr. Aric Zapien MD Primary care physician Active Start: January 21, 2025 End: January 21, 2025 Dr. Jigna ALMENDAREZ MD Attending physician Active Start: January 21, 2025 End: January 21, 2025 Dr. Jigna ALMENDAREZ MD Referring Provider Active Start: January 21, 2025 End: January 21, 2025 Team Status: Inactive Member Role/Relationship Status Dates Dr. Aric Zapien MD Primary care physician Active Start: March 08, 2025 End: March 08, 2025 Dr. Liza Cho MD Attending physician Active Start: March 08, 2025 End: March 08, 2025 Dr. Liza Cho MD Emergency Department Physician Ac tive Start: March 08, 2025 End: March 08, 2025 Reason for Visit (unrecogniz ed section and content) Reason Comments Diabetes Specialty Diagnoses / Procedures Referred By Contac t Referred To Contact Family Practice / FAMILY MEDICINE Diagnoses 6 month follow up Procedures 4C EST Aric Zapien MD [address] [place] [address] Aric Zapien MD [address] [place] [address] Referral ID Status Reason Start Date Expiration Date V isits Requested Visits Authorized [id number] Closed Financial Clearance Required - OON Payor [facility] Obtained 09/24/2021 05/29/2022 1 1 Reason Onset Date Comments Refill Request 03/04/2022 Reason Comments Follow Up Specialty Diagnoses / Procedures Referred By Contac t Referred To Contact Neurology / FAMILY MEDICINE Diagnoses Seizures (HCC) Procedures CONSULT TO NEUROLOGY OFFICE/OUTPATIENT [facility] 60-74 MINUTES Aric Zapien MD [address] [place] [address] [facility] [address] [place] [address] Referral ID Status Reason Start Date Expiration Date V isits Requested Visits Authorized [id number] Closed PCP Requested Referral 12/25/2021 05/29/2022 1 1 Reason Comments Medicare Wellness Exam Reason Comments Orders Reason Onset Date Comments ACM COLEMAN RN 02/23/2022 SPC/SUPD rev. 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 HIGH MDM 60-74 MINUTES Jaison Max PA-C [address] [place] [address] Referral ID Status Reason Start Date Expiration Date V isits Requested Visits Authorized [id number] Closed PCP Requested Referral 03/09/2022 03/09/2023 1 [...] W/O CONTRAST MATERIAL Aric Huston Jr., MD [address] [facility] [address] [place] [address] [place] [address] Referral ID Status Reason Start Date Expiration Date V isits Requested Visits Authorized [id number] Closed Auto-Generate d Referral 03/08/2022 04/07/2023 1 1 Reason Onset Date Comments Refill Request 11/08/2023 Reason Comments Follow Up 6 month Reason Onset Date Comments Population Health Navigation Outreach 12/15/2023 [facility] Reason Onset Date Comments Population Health Navigation Outreach 03/07/2024 [place] [facility] Reason Onset Date Comments Population Health [...] sectionGoals may be documented in an alternate sectionGoals may be documented in an alternate sectionGoals may be documented in an alternate sectionGoals may be documented in an alternate section (unrecognized sect ion and content) No Status Records FoundNo Status Records FoundNo Status Records Found INFORMATION SOURCE (unrecogn ized section and content) DATE CREATED AUTHOR 06/27/2024 [facility] DATE CREATED AUTHOR AUTHOR'S ORGANIZ ATION 10/27/[address] [facility] DATE CREATED AUTHOR AUTHOR'S ORGANIZ ATION 04/10/2025 [facility] FOR RECORDS PERTAINING TO PATIENTS [...] BE BASED ON THE PRIMARY CLINICAL RECORDS. [employer] [facility]. provides no warranty or guarantee of the accuracy or completeness of information in this document.
[2025-04-15 08:54] LABS: Hematocrit 47.8 % (40-54); Hemoglobin 16.1 g/dL (13.0-16.5); Mean Corp Hgb Conc 33.7 g/dL (32-36); Mean Corpuscular Volume 95.6 fL (80-94); Mean Platelet Vol. 11.6 fl (6.2-12.0); Platelet Count 261 K/mm3 (150-450); RBC Distribution Width CV 12.8 % (11.6-14.6); RBC Distribution Width SD 45.1 fl (35.1-43.9); Red Blood Count 5.00 M/mm3 (4.6-6.2); White Blood Count 8.9 K/mm3 (4.4-11.0)
[2025-04-15 09:26] LABS: Anion Gap 16 (5-15); BUN 23 mg/dL (4-19); BUN/Creat Ratio 19.1 RATIO (10-20); Calcium,Total 9.8 mg/dL (7.6-11.0); Carbon Dioxide 25.0 mmol/L (21.0-32.0); Chloride 100 mmol/L (98-108); Glucose 106 mg/dL (70-99); Potassium 3.7 mmol/L (3.3-5.1)
[2025-04-15 09:30] LABS: Valproic Acid (Depakene) Level 98 ug/mL (50-100)
== END ==
LOC: OLS.SWAL 04:00
PROVIDERS: PCP Family Medicine; Referring Provider Internal Medicine; Visit Provider Internal Medicine
DX: I48.91 Unspecified atrial fibrillation (principal); J44.9 Chronic obstructive pulmonary disease, unspecified; E11.9 Type 2 diabetes mellitus without complications; I10 Essential (primary) hypertension; E78.5 Hyperlipidemia, unspecified
CPT/HCPCS: 36415; 80048; 80164; 83036; 85027

== ENCOUNTER → 2025-05-28 05:00 | Outpatient (REF) | payer MEDICAID, SELFPAY ==
--- OUTSIDE RECORDS SUMMARY | 2025-05-28 03:48 | XMS RPT_ITS | CCD ---
Author Organization [facility] Care Team Providers Care Loom Winder Tender Name Role Phone Aric Zapien MD Primary Care Provider Dr. Aric Zapien Primary Care Provider Dr. Aric Zapien Referring Provider Gokul CLIENT SERVICES MANAGER, AYLIN Ellington Attending Provider Aric Zapien MD Primary Care Provider Haagen LEAD GENERATION SPECIALIST.FEDERAL LAW CLERK, Meenakshi Unavailable Suppan LEAD GENERATION SPECIALIST.FEDERAL LAW CLERK, Florinda A Unavailable Suppan LEAD GENERATION SPECIALIST.FEDERAL LAW CLERK, Florinda A Unavailable Dr. Aric Zapien MD Primary Care Provider Dr. Yann Miller MD Attending Provider Dr. Priscilla Reynaga MD Referring Provider [phone] Dr. Priscilla Reynaga MD Emergency Provider Dr. Yann Ascencio DO Admit Provider Dr. Yann Ascencio DO Attending Provider Surekha [...] Attending Unavailable RUPALI ARIC Primary Care Unavailable Godley , Dr. Corbett Primary Care Physician Karon NORIEGA, Dr. Benito Attending Physician Unavail able Karon NORIEGA, Dr. Benito Referring Provider Unavailverenice Cho MD, Dr. De Jesus Attending Physician Unavailverenice Cho MD, Dr. De Jesus Emergency Department Physici an Unavailable Joppwily, Yann Admitting Unavailable Silva, Yann Attending Unavailable Silva, Yann Consulting Unavailable Rupali, Aric Primary Care Unavailable Parkppwily, Yann Attending Unavailable Godley, Aric Primary Care Unavailable Gudla OLS, Jigna Referring Unavailable Godley, Aric Primary Care Unavailable Gudla OLS, Jigna Attending Unavailable Priscilla Reynaga Referring Unavailable Yann Miller Attending Unavailable Rupali, Aric Primary Care Unavailable Estuardo Irby Attending Unavailabl e Godley, Aric Primary Care Unavailable Gudla OLS, Jigna Attending Unavailable Rupali, Aric Primary Care Unavailable Gudla OLS, Jigna Referring Unavailable Godley, Aric Primary Care Unavailable Gudla OLS, Jigna Attending Unavailable Gudla OLS, Jigna Attending Unavailable Godley, Aric Primary Care Unavailable Gudla OLS, Jigna Attending Unavailable Rupali, Aric Primary Care Unavailable Silva, Yann Attending Unavailable Parkppwily, Yann Admitting Unavailable Rupali, Aric Primary Care Unavailable Godley, Aric Primary Care Unavailable Gudla OLS, Jigna Attending Unavailable Gudla OLS, Jigna Attending Unavailable Rupali, Aric Primary Care Unavailable Gudla OLS, Jigna Attending Unavailable Godley, Aric Primary Care Unavailable Gudla OLS, Jigna Attending Unavailable Rupali, Aric Primary Care Unavailable Gudla OLS, Jigna Attending Unavailable Godley, Aric Primary Care Unavailable Gudla OLS, Jigna Attending Unavailable Rupali, Aric Primary Care Unavailable Liza Cho Attending Unavailable Godley, Aric Primary Care Unavailable Gudla OLS, Jigna Referring Unavailable Gudla OLS, Jigna Attending Unavailable Godley, Aric Primary Care Unavailable Allergies Allergy Classification Reported Allergen(s) Allergy Type Date of Onset Reaction(s) Facility (20 sources) Contrast media; Translations: [DYE] Drug Intolerance 03-02-20 16 Other: See Comments [facility] Work Phone: (7 sources) Triiodobenzoic Acids Allergy to substance 03-06-20 Anaphylaxis [facility] Comment on above: used for heart cath (1 source) Iodinated Contrast Media Drug allergy (disorder) 07-09-19 [facility] Repository Medications Current Medications Medication Drug Class(es) [...] long-term current use of insulin ([facility]) Glucose Meter of Choice - Kit - [...] above: Take 1 capsule by mo [facility] once daily. folic acid/multivit-min/ lutein (CENTRUM SILVER [...] Comment on above: [facility] guaifenesin/dextrometh orphan (DEXTROMETHORPHAN-GUAI FENESIN ORAL) [...] mouth once daily. Take 1 tablet by [facility] once daily. Kl-Jgm-Mduqr-K1-Lycope n-Lutein (Centrum Silver Men) 300-600-300 mcg tablet (6 sources) Start: 11-15-2022 End: 11-17-2022 Dg-Sqg-Akewn-P5-Ajxkprj-Uz tein (Centrum Silver Men) 300-600-300 mcg tablet Discontinued 1 {tbl} PO DAILY November 15, 2022 12:00am November 17, 2022 3:04pm Start: 11-15-2022 End: 11-17-2022 take 300-600 tablets by mouth once daily Za-Fat-Qphjj-N3-Mjchhca-Fvtlei (Bobbium Manjinder Paez) 300-600-300 mcg tablet Discontinued [...] Comment on above: Take 1 tablet by [facility] once daily. 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 Imaging Services [address] [place], [place] [address] Brain/Head without Contrast MR#: [id number] Acct: [id number] Name: REINA SULLIVAN Rep #: [id number] : 1955 M 70 From: Meek Rodriguez MD PCP: Dr. Aric Zapien MD Status: [facility] Study: Brain/Head without Contrast Date of Exam: 02/27 Exam# [id number] Ordering Dr: Liza Cho MD PROCEDURE: BRAIN/HEAD [...] Mild ventricular dilation is present along with wozudmbp-yq-kgfnys central and peripheral volume loss. Sinuses/Mastoids: Mucous [...] ischemia and severe volume loss. Reading Location: [id number] CC: Dr. Liza Cho MD; Dr. Aric Zapien MD Investigation Specialist: Signed Normal [facility] Emergency Department Summary on 03-08-2025 Emergency Department Summary [facility] Medical Records Department [address] [place] [address] Emergency Department Summary 03/08/25 MR#: [id number] Acct: [id number] Name: REINA SULLIVAN Rep #: [id number] : 1955 70 From: Liza Cho MD [...] ambulate, has not walked since the fall. [facility] Medical History Essential hypertension Hx of thyroiditis Type 2 diabetes mellitus TIA (transient ischemic attack) [place] (myocardial infarction) Hyperlipidemia Atrial fibrillation with rapid [...] No cr (more content not included)... Normal [facility] Spine Cervical without Contr ason 03-08-2025 Spine Cervical without Contras [facility] Imaging Services [address] [place] [address] Spine Cervical without Contras MR#: [id number] Acct: [id number] Name: REINA SULLIVAN Rep #: [id number] : 1955 70 From: Luca Levi MD PCP: Dr. Aric Zapien MD Status: [facility] Study: Spine Cervical without Contras Date of Exam: Exam# [id number] Ordering Dr: Liza Cho MD PROCEDURE: SPINE [...] evidence of acute fracture. Spondylosis. Reading Location: [address] CC: Dr. Liza Cho MD; Dr. Aric Zapien MD Investigation Specialist: Signed Normal [facility] Serum or plasma valproate me asurement (mass/volume)Ordered By: Jigna Brantley on 01-31-2025 Valproate [Mass/Vol] 73 ug/mL 50-100 [facility] Comment on above: Valproic Acid concen trations >100 ug/mL are potentially toxic. Valproic Acid (Depakene) Lev cecil 01-31-2025 VALPROIC ACID 73 ug/mL Normal 50-100 [facility] Comment on above: Order Comment: 133 Result Comment: Valp roic Acid concentrations >100 ug/mL are potentially toxic. Performed By: #### L 501.8100 ####[facility] [address] [facility] [address] Anion gap in Serum or Plasma Ordered By: Jigna Brantley on 01-21-2025 Anion gap [Moles/Vol] 12 mmol/L 5-15 [facility] BUN/creatinine ratioOrdered By: Jigna Brantley on 01-21-2025 Urea nitrogen/Creatinine [Mass ratio] 21.3 mg/mg High 10-20 [facility] Basic Metabolic Profile (BMP )on 01-21-2025 BUN/CRE 21.3 RATIO High [facility]20 [facility] Comment on above: Order Comment: 133 Performed By: #### L 500.2500 ####[facility] [address] [place], [address] Calcium [Mass/Vol] 9.1 mg/dL Normal 7.6-11.0 [facility] Comment on above: Order Comment: 133 Performed By: #### L 500.2500 ####[facility] [address] [place], [address] Chloride [Moles/Vol] 106 mmol/L Normal 98-108 [facility] Comment on above: Order Comment: 133 Performed By: #### L 500.2500 ####[facility] [address] [place], [address] CO2 [Moles/Vol] 24.5 mmol/L Normal 21.0-32.0 [facility] Comment on above: Order Comment: 133 Performed By: #### L 500.2500 ####[facility] [address] [place], [address] Creatinine [Mass/Vol] 1.20 mg/dL Normal 0.70-1.20 [facility] Comment on above: Order Comment: 133 Performed By: #### L 500.2500 ####[facility] [address] [place], [address] GAP 12 Normal 5-15 [facility] Comment on above: Order Comment: 133 Performed By: #### L 500.2500 ####[facility] [address] [place], [address] GFR/1.73 sq M.predicted among non-blacks MDRD (S/P/Bld) [Vol rate/Area] 66 mL/min/{1.73_m2} Normal >60 [facility] Comment on above: Order Comment: 133 Result Comment: mL/m in/1.73m2 CKD-EPI Creatinine Equation (2020) Performed By: #### L 500.2500 ####[facility] [address] [place], [address] Glucose [Mass/Vol] 94 mg/dL Normal 70-99 [facility] Comment on above: Order Comment: 133 Performed By: #### L 500.2500 ####[facility] [address] [place], [address] Potassium [Moles/Vol] 4.0 mmol/L Normal 3.3-5.1 [facility] Comment on above: Order Comment: 133 Performed By: #### L 500.2500 ####[facility] [address] [place], [place], [address] Sodium [Moles/Vol] 143 mmol/L Normal 133-145 [facility] Comment on above: Order Comment: 133 Performed By: #### L 500.2500 ####[facility] [address] [place], [place], [address] Urea nitrogen [Mass/Vol] 26 mg/dL High 4-19 [facility] Comment on above: Order Comment: 133 Performed By: #### L 500.2500 ####[facility] [address] [place], [place], [address] Carbon dioxide, total [Moles /volume] in Central venous bloodOrdered By: Jigna Brantley on 01-21-2025 CO2 [Moles/Vol] 24.5 mmol/L 21.0-32.0 [facility] Chloride assayOrdered By: Fabricio Brantley on 01-21-2025 Chloride [Moles/Vol] 106 mmol/L 98-108 [facility] Glomerular filtration rate ( GFR) estimation/1.73 sq m using serum, plasma, or whole bOrdered By: Jigna Brantley on 01-21-2025 GFR/1.73 sq M.predicted among non-blacks MDRD (S/P/Bld) [Vol rate/Area] 66 mL/min/{1.73_m2} >60 [facility] Comment on above: mL/min/1.73m2 CKD-EP I Creatinine Equation (2020) Potassium measurement (mass/ volume)Ordered By: Jigna Brantley on 01-21-2025 Potassium (Unsp spec) [Mass/Vol] 4.0 mmol/L 3.3-5.1 [facility] Serum creatinine measurement (mass/volume)Ordered By: Jigna Brantley on 01-21-2025 Creatinine [Mass/Vol] 1.20 mg/dL 0.70-1.20 [facility] Serum glucose measurement (m ass/volume)Ordered By: Jigna Brantley on 01-21-2025 Glucose [Mass/Vol] 94 mg/dL 70-99 [facility] Serum or plasma calcium rosalina urement (mass/volume)Ordered By: Jigna Brantley on 01-21-2025 Calcium [Mass/Vol] 9.1 mg/dL 7.6-11.0 [facility] Serum or plasma urea nitroge n measurement (mass/volume)Ordered By: Jigna Brantley on 01-21-2025 Urea nitrogen [Mass/Vol] 26 mg/dL High 4-19 [facility] Sodium levelOrdered By: Enoch Brantley on 01-21-2025 Sodium [Moles/Vol] 143 mmol/L 133-145 [facility] Urine Cultureon 01-13-2025 URC 133 Below infection level. Clinical correlation necessary, Possible skin contamination. Coag Negative Staph Ludlow Count <1000 Normal [facility] Comment on above: Performed By: #### L 501.4020 #### [facility] [address] [place], [place], [address] Urinalysis, Completeon 01-11 CA OX CRYSTAL 2+ /hpf Normal [facility] Comment on above: Order Comment: 133CL ARISTIDES CATCH Performed By: #### L 501.4020 #### [facility] [address] [place], [place], [address] BACTERIA 0 SEEN Normal None Seen [facility] Comment on above: Order Comment: 133CL ARISTIDES CATCH Performed By: #### L 501.4020 #### [facility] [address] [place], [place], [address] EPI,SQUAMOUS 0 SEEN Normal 0-5 [facility] Comment on above: Order Comment: 133CL ARISTIDES CATCH Performed By: #### L 501.4020 #### [facility] [address] [place], [place], [address] Mucus Ql (Urine sed) 0 SEEN Normal [facility] Comment on above: Order Comment: 133CL ARISTIDES CATCH Performed By: #### L 501.4020 #### [facility] [address] [place], [place], [address] RBC 0 SEEN Normal 0-5 [facility] Comment on above: Order Comment: 133CL ARISTIDES CATCH Performed By: #### L 501.4020 #### [facility] [address] [place], [place], [address] WBC 0 SEEN Normal 0-5 [facility] Comment on above: Order Comment: 133CL ARISTIDES CATCH Performed By: #### L 501.4020 #### [facility] [address] [place], [place], [address] Bilirubin Test strip Ql (U)O rdered By: Jigna Brantley on 01-10-2025 Bilirubin Ql (U) Negative Negative [facility] Calcium oxalate crystals det ection in urine sediment by light microscopyOrdered By: Jigna Brantley on 01-10-2025 Calcium oxalate crystals LM Ql (Urine sed) 2+ /hpf [facility] Ketones Test strip Ql (U)Ord ered By: Jigna Brantley on 01-10-2025 Ketones Ql (U) 5 mg/dl High Negative [facility] Microscopic analysis of urin e for red blood cells (RBC)Ordered By: Jigna Brantley on 01-10-2025 Microscopic analysis of urine for red blood cells (RBC) 0 SEEN /hpf 0-5 [facility] Mucus LM Ql (Urine sed)Order ed By: Jigna Brantley on 01-10-2025 Mucus Ql (Urine sed) 0 SEEN /hpf [facility] Nitrite Test strip Ql (U)Ord ered By: Jigna Brantley on 01-10-2025 Nitrite Ql (U) Negative Negative [facility] Protein Test strip Ql (U)Ord ered By: Jigna Brantley on 01-10-2025 Protein Ql (U) 30 mg/dl High Negative [facility] Squamous epithelial cells de tection in urine sediment by light microscopyOrdered By: Jigna Brantley on 01-10-2025 Epithelial cells.squamous LM Ql (Urine sed) 0 SEEN /hpf 0-5 [facility] Urine clarityOrdered By: Vamshi Brantley on 01-10-2025 Clarity (U) Clear Clear [facility] Urine color determinationOrd ered By: Jigna Brantley on 01-10-2025 Color (U) Yellow Yellow [facility] Urine cultureOrdered By: Vamshi Brantley on 01-10-2025 Bacteria identified Cx Nom (U) Negative Abnormal [facility] Urine glucose detectionOrder ed By: Jigna Brantley on 01-10-2025 Glucose Ql (U) Normal mg/dl Normal [facility] Urine leukocyte esterase det ection by dipstickOrdered By: Jigna Brantley on 01-10-2025 Leukocyte esterase Test strip Ql (U) 25 /ul High Negative [facility] Urine pHOrdered By: Jigna francisco on 01-10-2025 pH (U) 5.0 [pH] 5.0 - 8.0 [facility] Urine sediment bacteria coun t by microscopy (number/high power field)Ordered By: Jigna Brantley on 01-10-2025 Bacteria LM.HPF (Urine sed) [#/Area] 0 /[HPF] None Seen [facility] Urine specific gravity measu rementOrdered By: Jigna Brantley on 01-10-2025 Specific gravity (U) [Rel density] 1.025 1.002-1.030 [facility] Urine urobilinogen measureme ntOrdered By: Jigna Brantley on 01-10-2025 Urobilinogen Ql (U) Normal mg/dl Normal [facility] White blood cell countOrdere d By: Jigna Brantley on 01-10-2025 White blood cell count 0 SEEN /hpf 0-5 [facility] Anion gap in Serum or Plasma Ordered By: Jigna Brantley on 01-02-2025 Anion gap [Moles/Vol] 11 mmol/L 5-15 [facility] BUN/creatinine ratioOrdered By: Jigna Brantley on 01-02-2025 Urea nitrogen/Creatinine [Mass ratio] 21.2 mg/mg High 10-20 [facility] Bilirubin, totalOrdered By: Jigna Brantley on 01-02-2025 Bilirubin [Mass/Vol] 0.23 mg/dL 0.00-1.30 [facility] CBC-Complete Blood Cnt No Di ffon 01-02-2025 Erythrocyte distribution width (RBC) [Ratio] 13.2 % Normal 11.6-14.6 [facility] Comment on above: Order Comment: 133 Performed By: #### L 100.0500, L501.8100, L500.4050 ####[facility] [address] [place], [address] Hematocrit (Bld) [Volume fraction] 42.3 % Normal 40-54 [facility] Comment on above: Order Comment: 133 Performed By: #### L 100.0500, L501.8100, L500.4050 ####[facility] [address] [place], [address] Hemoglobin (Bld) [Mass/Vol] 13.9 g/dL Normal 13.0-16.5 [facility] Comment on above: Order Comment: 133 Performed By: #### L 100.0500, L501.8100, L500.4050 ####[facility] [address] [place], [address] MCH (RBC) [Entitic mass] 31.1 pg Normal 27.0-32.0 [facility] Comment on above: Order Comment: 133 Performed By: #### L 100.0500, L501.8100, L500.4050 ####[facility] [address] [place], [address] MCHC (RBC) [Mass/Vol] 32.9 g/dL Normal 32-36 [facility] Comment on above: Order Comment: 133 Performed By: #### L 100.0500, L501.8100, L500.4050 ####[facility] [address] [place], [address] MCV (RBC) [Entitic vol] 94.6 fL High 80-94 [facility] Comment on above: Order Comment: 133 Performed By: #### L 100.0500, L501.8100, L500.4050 ####[facility] [address] [place], [address] Platelet mean volume (Bld) [Entitic vol] 11.5 fL Normal 6.2-12.0 [facility] Comment on above: Order Comment: 133 Performed By: #### L 100.0500, L501.8100, L500.4050 ####[facility] [address] [place], [address] Platelets (Bld) [#/Vol] 215 10*3/uL Normal 150-450 [facility] Comment on above: Order Comment: 133 Performed By: #### L 100.0500, L501.8100, L500.4050 ####[facility] [address] [place], [address] RBC (Bld) [#/Vol] 4.47 10*6/uL Low 4.6-6.2 [facility] Comment on above: Order Comment: 133 Performed By: #### L 100.0500, L501.8100, L500.4050 ####[facility] [address] [place], [address] RDW SD 45.1 fl High 35.1-43.9 [facility] Comment on above: Order Comment: 133 Performed By: #### L 100.0500, L501.8100, L500.4050 ####[facility] [address] [place], [address] WBC (Bld) [#/Vol] 7.4 10*3/uL Normal 4.4-11.0 [facility] Comment on above: Order Comment: 133 Performed By: #### L 100.0500, L501.8100, L500.4050 ####[facility] [address] [place], [address] Carbon dioxide, total [Moles /volume] in Central venous bloodOrdered By: Jigna Brantley on 01-02-2025 CO2 [Moles/Vol] 25.3 mmol/L 21.0-32.0 [facility] Chloride assayOrdered By: Fabricio Brantley on 01-02-2025 Chloride [Moles/Vol] 106 mmol/L 98-108 [facility] Comprehensive Metabolic Prof ilon 01-02-2025 Albumin [Mass/Vol] 4.0 g/dL Normal 3.4-4.8 [facility] Comment on above: Order Comment: 133 Performed By: #### L 501.080 #### [facility] [address] [place], [address] Albumin/Globulin [Mass ratio] 1.8 {ratio} Normal 0.9-2.4 [facility] Comment on above: Order Comment: 133 Performed By: #### L 501.080 #### [facility] [address] [place], [address] ALK PHOS 59 U/L Normal 40-129 [facility] Comment on above: Order Comment: 133 Performed By: #### L 501.080 #### [facility] [address] [place], [address] ALT [Catalytic activity/Vol] 8 U/L Normal <=46 [facility] Comment on above: Order Comment: 133 Performed By: #### L 501.080 #### [facility] [address] [place], [address] AST [Catalytic activity/Vol] 17 U/L Normal <=37 [facility] Comment on above: Order Comment: 133 Performed By: #### L 501.080 #### [facility] [address] [place], [address] Bilirubin [Mass/Vol] 0.23 mg/dL Normal 0.00-1.30 [facility] Comment on above: Order Comment: 133 Performed By: #### L 501.080 #### [facility] [address] [place], [address] BUN/CRE 21.2 RATIO High 10-20 [facility] Comment on above: Order Comment: 133 Performed By: #### L 501.080 #### [facility] [address] [place], [address] Calcium [Mass/Vol] 9.1 mg/dL Normal 7.6-11.0 [facility] Comment on above: Order Comment: 133 Performed By: #### L 501.080 #### [facility] [address] [place], [address] Chloride [Moles/Vol] 106 mmol/L Normal 98-108 [facility] Comment on above: Order Comment: 133 Performed By: #### L 501.080 #### [facility] [address] [place], [address] CO2 [Moles/Vol] 25.3 mmol/L Normal 21.0-32.0 [facility] Comment on above: Order Comment: 133 Performed By: #### L 501.080 #### [facility] [address] [place], [address] Creatinine [Mass/Vol] 1.35 mg/dL High 0.70-1.20 [facility] Comment on above: Order Comment: 133 Performed By: #### L 501.080 #### [facility] [address] [place], [address] GAP 11 Normal 5-15 [facility] Comment on above: Order Comment: 133 Performed By: #### L 501.080 #### [facility] [address] [place], [address] GFR/1.73 sq M.predicted among non-blacks MDRD (S/P/Bld) [Vol rate/Area] 58 mL/min/{1.73_m2} Low >60 [facility] Comment on above: Order Comment: 133 Result Comment: mL/m in/1.73m2 CKD-EPI Creatinine Equation (2020) Performed By: #### L 501.080 #### [facility] [address] [place], [address] Globulin (S) [Mass/Vol] 2.2 g/dL Normal 2.2-4.2 [facility] Comment on above: Order Comment: 133 Performed By: #### L 501.080 #### [facility] [address] [place], [address] Glucose [Mass/Vol] 95 mg/dL Normal 70-99 [facility] Comment on above: Order Comment: 133 Performed By: #### L 501.080 #### [facility] [address] [place], [address] Potassium [Moles/Vol] 4.7 mmol/L Normal 3.3-5.1 [facility] Comment on above: Order Comment: 133 Performed By: #### L 501.080 #### [facility] [address] [place], [address] Sodium [Moles/Vol] 143 mmol/L Normal 133-145 [facility] Comment on above: Order Comment: 133 Performed By: #### L 501.080 #### [facility] [address] [place], [address] T PROT 6.2 g/dL Normal 5.9-8.4 [facility] Comment on above: Order Comment: 133 Performed By: #### L 501.080 #### [facility] [address] [place], [address] Urea nitrogen [Mass/Vol] 29 mg/dL High 4-19 [facility] Comment on above: Order Comment: 133 Performed By: #### L 501.080 #### [facility] [address] [place], [address] Erythrocyte distribution wid th ratioOrdered By: Jigna Brantley on 01-02-2025 Erythrocyte distribution width (RBC) [Ratio] 13.2 % 11.6-14.6 [facility] Erythrocyte distribution wid th standard deviationOrdered By: Jigna Brantley on 01-02-2025 Erythrocyte distribution width (RBC) [Ratio] 45.1 fl High 35.1-43.9 [facility] Glomerular filtration rate ( GFR) estimation/1.73 sq m using serum, plasma, or whole bOrdered By: Jigna Brantley on 01-02-2025 GFR/1.73 sq M.predicted among non-blacks MDRD (S/P/Bld) [Vol rate/Area] 58 mL/min/{1.73_m2} Low >60 [facility] Comment on above: mL/min/1.73m2 CKD-EP I Creatinine Equation (2020) Hematocrit Auto (Bld) [Volum e fraction]Ordered By: Jigna Brantley on 01-02-2025 Hematocrit (Bld) [Volume fraction] 42.3 % 40-54 [facility] Hemoglobin measurementOrdere d By: Jigna Brantley on 01-02-2025 Hemoglobin (Bld) [Mass/Vol] 13.9 g/dL 13.0-16.5 [facility] - Chemistry and C hemistry - challengeOrdered By: Jigna Brantley on 01-02-2025 AST [Catalytic activity/Vol] 17 U/L <38 [facility] MCV (mean corpuscular volume ) determinationOrdered By: Jigna Brantley on 01-02-2025 MCV (RBC) [Entitic vol] 94.6 fL High 80-94 [facility] Mean corpuscular hemoglobin (MCH) determinationOrdered By: Jigna Brantley on 01-02-2025 MCH (RBC) [Entitic mass] 31.1 pg 27.0-32.0 [facility] Mean corpuscular hemoglobin concentration (MCHC) determinationOrdered By: Jigna Brantley on 01-02-2025 MCHC (RBC) [Mass/Vol] 32.9 g/dL 32-36 [facility] Mean platelet volume determi nationOrdered By: Jigna Brantley on 01-02-2025 Platelet mean volume (Bld) [Entitic vol] 11.5 fL 6.2-12.0 [facility] Platelet countOrdered By: Fabricio Brantley on 01-02-2025 Platelets (Bld) [#/Vol] 215 10*3/uL 150-450 [facility] Potassium measurement (mass/ volume)Ordered By: Jigna Brantley on 01-02-2025 Potassium (Unsp spec) [Mass/Vol] 4.7 mmol/L 3.3-5.1 [facility] RBC Auto (Bld) [#/Vol]Ordere d By: Jigna Brantley on 01-02-2025 RBC (Bld) [#/Vol] 4.47 10*6/uL Low 4.6-6.2 [facility] Serum creatinine measurement (mass/volume)Ordered By: Jigna Brantley on 01-02-2025 Creatinine [Mass/Vol] 1.35 mg/dL High 0.70-1.20 [facility] Serum globulin measurementOr dered By: Jigna Brantley on 01-02-2025 Globulin (S) [Mass/Vol] 2.2 g/dL 2.2-4.2 [facility] Serum glucose measurement (m ass/volume)Ordered By: Jigna Brantley on 01-02-2025 Glucose [Mass/Vol] 95 mg/dL 70-99 [facility] Serum or plasma alanine chatterjee otransferase (ALT) measurementOrdered By: Jigna Brantley on 01-02-2025 ALT [Catalytic activity/Vol] 8 U/L <47 [facility] Serum or plasma albumin rosalina urement (mass/volume)Ordered By: Jigna Brantley on 01-02-2025 Albumin [Mass/Vol] 4.0 g/dL 3.4-4.8 [facility] Serum or plasma albumin/glob ulin mass ratioOrdered By: Jigna Brantley on 01-02-2025 Albumin/Globulin [Mass ratio] 1.8 {ratio} 0.9-2.4 [facility] Serum or plasma alkaline elvis sphatase measurementOrdered By: Jigna Brantley on 01-02-2025 ALP [Catalytic activity/Vol] 59 U/L 40-129 [facility] Serum or plasma calcium rosalina urement (mass/volume)Ordered By: Jigna Brantley on 01-02-2025 Calcium [Mass/Vol] 9.1 mg/dL 7.6-11.0 [facility] Serum or plasma urea nitroge n measurement (mass/volume)Ordered By: Jigna Brantley on 01-02-2025 Urea nitrogen [Mass/Vol] 29 mg/dL High 4-19 [facility] Serum or plasma valproate me asurement (mass/volume)Ordered By: Jigna Brantley on 01-02-2025 Valproate [Mass/Vol] 73 ug/mL 50-100 [facility] Comment on above: Valproic Acid concen trations >100 ug/mL are potentially toxic. Sodium levelOrdered By: Enoch Brantley on 01-02-2025 Sodium [Moles/Vol] 143 mmol/L 133-145 [facility] Total proteinOrdered By: Vamshi Brantley on 01-02-2025 Protein [Mass/Vol] 6.2 g/dL 5.9-8.4 [facility] Valproic Acid (Depakene) Lev cecil 01-02-2025 VALPROIC ACID 73 ug/mL Normal 50-100 [facility] Comment on above: Order Comment: 133 Result Comment: Valp roic Acid concentrations >100 ug/mL are potentially toxic. Performed By: #### L 100.0500, L501.8100, L500.4050 ####[facility] [id number] [place], [address] White blood cell (WBC) count Ordered By: Jigna Brantley on 01-02-2025 WBC (Bld) [#/Vol] 7.4 10*3/uL 4.4-11.0 [facility] Serum or plasma phenytoin me asurement (mass/volume)Ordered By: Jigna Brantley on 11-27-2024 Phenytoin [Mass/Vol] 1.0 ug/mL Low 10.0-20.0 [facility] Comment on above: Toxic signs are seld [...] seizures. Performed By: #### L 400.0001 #### [facility] [address] [facility] [address] [place], [place], [address] [id number] 11-08-2024 [facility] Normal . [facility] Comment on above: Order Comment: [id number] Result Comment: Test Ordered: [id number] Diltiazem(Cardizem,Dilacor) S Diltiazem <20 [L ] ng/ml MX Reference Range: 50 - 200 Note: Analysis performed on a micro-specimen. This test was developed and its performance characteristics determined by [employer]. It has not been cleared or approved by the Food and Drug Administration. Performed at: [facility] [address] [id number] Security Threat Analyst: Carly Azar [facility], Phone: [phone] Performed at: - [address] [id number] Security Threat Analyst: Enrico Berg PhD, Phone: [phone] Performed By: #### L 501.4020 #### [facility] [address] [facility]. [place], [place], [address] L3410.9992on 10-30-2024 [facility] Mis. COMMENT Normal . [facility] Comment on above: Order Comment: [id number], Serum or Plasma Result Comment: Test Ordered: [id number] Diltiazem(Cardizem,Dilacor) S Diltiazem ng/ml MX Reference Range: . Test not performed Initial assay failure. Insufficient specimen volume to repeat analysis. Performed at: [email or web address] [facility] [employer] [address] [place] [id number] Security Threat Analyst: Carly Azar [facility], Phone: [phone] Performed at: [facility] [address] [id number] Security Threat Analyst: Enrico Berg PhD, Phone: [phone] Performed By: #### L 501.080 #### [facility] [address] [place] [address], [id number] [facility] 10-25-2024 [facility] Telephone ([facility]) REINA SULLIVAN ([id number]) 1955 M Date Time Provider Department 10/25/24 ARIC ZAPIEN [facility] During your visit today, we recorded [...] unspecified na*09/30/2022 Left atrial enlargement [I51.7] 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, [address] Absolute Neut 3.2 X10 3/uL Normal 2.0-7.7 [facility] Comment on above: Order Comment: 133 Performed By: #### L 501.080 #### [facility] [address] [place], [address] Basophils/100 WBC (Bld) 0.6 % Normal 0-1 [facility] Comment on above: Order Comment: 133 Performed By: #### L 501.080 #### [facility] [address] [place], [address] Eosinophils/100 WBC (Bld) 5.3 % High 0-5 [facility] Comment on above: Order Comment: 133 Performed By: #### L 501.080 #### [facility] [address] [place], [address] Erythrocyte distribution width (RBC) [Ratio] 15.0 % High 11.6-14.6 [facility] Comment on above: Order Comment: 133 Performed By: #### L 501.080 #### [facility] [address] [place], [address] Hematocrit (Bld) [Volume fraction] 42.2 % Normal 40-54 [facility] Comment on above: Order Comment: 133 Performed By: #### L 501.080 #### [facility] [address] [place], [address] Hemoglobin (Bld) [Mass/Vol] 13.7 g/dL Normal 13.0-16.5 [facility] Comment on above: Order Comment: 133 Performed By: #### L 501.080 #### [facility] [address] [place], [address] IG% 0.500 Normal 0.0-0.9 [facility] Comment on above: Order Comment: 133 Result Comment: IG% - Immature Granulocytes (promyelocytes, myelocytes and metamyelocytes) > 1% indicates that a LEFT SHIFT is Present. Performed By: #### L 501.080 #### [facility] [address] [place], [address] Lymphocytes/100 WBC (Bld) 33.4 % Normal 19-41 [facility] Comment on above: Order Comment: 133 Performed By: #### L 501.080 #### [facility] [address] [place], [address] MCH (RBC) [Entitic mass] 30.7 pg Normal 27.0-32.0 [facility] Comment on above: Order Comment: 133 Performed By: #### L 501.080 #### [facility] [address] [place], [address] MCHC (RBC) [Mass/Vol] 32.5 g/dL Normal 32-36 [facility] Comment on above: Order Comment: 133 Performed By: #### L 501.080 #### [facility] [address] [place], [address] MCV (RBC) [Entitic vol] 94.6 fL High 80-94 [facility] Comment on above: Order Comment: 133 Performed By: #### L 501.080 #### [facility] [address] [place], [address] Monocytes/100 WBC (Bld) 9.4 % Normal 0-10 [facility] Comment on above: Order Comment: 133 Performed By: #### L 501.080 #### [facility] [address] [place], [address] Neutrophils/100 WBC (Bld) 50.8 % Normal 47-70 [facility] Comment on above: Order Comment: 133 Performed By: #### L 501.080 #### [facility] [address] [place], [address] Nucleated RBC (Bld) [#/Vol] 0 10*3/uL Normal 0-5 [facility] Comment on above: Order Comment: 133 Performed By: #### L 501.080 #### [facility] [address] [place], [address] Platelet mean volume (Bld) [Entitic vol] 10.9 fL Normal 6.2-12.0 [facility] Comment on above: Order Comment: 133 Performed By: #### L 501.080 #### [facility] [address] [place], [address] Platelets (Bld) [#/Vol] 236 10*3/uL Normal 150-450 [facility] Comment on above: Order Comment: 133 Performed By: #### L 501.080 #### [facility] [address] [place], [address] RBC (Bld) [#/Vol] 4.46 10*6/uL Low 4.6-6.2 [facility] Comment on above: Order Comment: 133 Performed By: #### L 501.080 #### [facility] [address] [place], [address] RDW SD 52.3 fl High 35.1-43.9 [facility] Comment on above: Order Comment: 133 Performed By: #### L 501.080 #### [facility] [address] [place], [address] WBC (Bld) [#/Vol] 6.3 10*3/uL Normal 4.4-11.0 [facility] Comment on above: Order Comment: 133 Performed By: #### L 501.080 #### [facility] [address] [place], [address] Comprehensive Metabolic Prof [facility] 10-23-2024 Albumin [Mass/Vol] 4.2 g/dL Normal 3.4-4.8 [facility] Comment on above: Order Comment: 133 Performed By: #### L 501.080 #### [facility] [address] [place], [address] Albumin/Globulin [Mass ratio] 1.7 {ratio} Normal 0.9-2.4 [facility] Comment on above: Order Comment: 133 Performed By: #### L 501.080 #### [facility] [address] [place], [address] ALK PHOS 63 U/L Normal 40-129 [facility] Comment on above: Order Comment: 133 Performed By: #### L 501.080 #### [facility] [address] [place], [address] ALT [Catalytic activity/Vol] 13 U/L Normal <=46 [facility] Comment on above: Order Comment: 133 Performed By: #### L 501.080 #### [facility] [address] [place], [address] AST [Catalytic activity/Vol] 16 U/L Normal <=37 [facility] Comment on above: Order Comment: 133 Performed By: #### L 501.080 #### [facility] [address] [place], [address] Bilirubin [Mass/Vol] 0.30 mg/dL Normal 0.00-1.30 [facility] Comment on above: Order Comment: 133 Performed By: #### L 501.080 #### [facility] [address] [place], [address] BUN/CRE 18.7 RATIO Normal 10-20 [facility] Comment on above: Order Comment: 133 Performed By: #### L 501.080 #### [facility] [address] [place], [address] Calcium [Mass/Vol] 9.4 mg/dL Normal 7.6-11.0 [facility] Comment on above: Order Comment: 133 Performed By: #### L 501.080 #### [facility] [address] [place], [address] Chloride [Moles/Vol] 106 mmol/L Normal 98-108 [facility] Comment on above: Order Comment: 133 Performed By: #### L 501.080 #### [facility] [address] [place], [address] CO2 [Moles/Vol] 24.9 mmol/L Normal 21.0-32.0 [facility] Comment on above: Order Comment: 133 Performed By: #### L 501.080 #### [facility] [address] [place], [address] Creatinine [Mass/Vol] 1.27 mg/dL High 0.70-1.20 [facility] Comment on above: Order Comment: 133 Performed By: #### L 501.080 #### [facility] [address] [place], [address] GAP 12 Normal 5-15 [facility] Comment on above: Order Comment: 133 Performed By: #### L 501.080 #### [facility] [address] [place], [address] GFR/1.73 sq M.predicted among non-blacks MDRD (S/P/Bld) [Vol rate/Area] 62 mL/min/{1.73_m2} Normal >60 [facility] Comment on above: Order Comment: 133 Result Comment: mL/m in/1.73m2 CKD-EPI Creatinine Equation (2020) Performed By: #### L 501.080 #### [facility] [address] [place], [address] Globulin (S) [Mass/Vol] 2.4 g/dL Normal 2.2-4.2 [facility] Comment on above: Order Comment: 133 Performed By: #### L 501.080 #### [facility] [address] [place], [address] Glucose [Mass/Vol] 97 mg/dL Normal 70-99 [facility] Comment on above: Order Comment: 133 Performed By: #### L 501.080 #### [facility] [address] [place], [address] Potassium [Moles/Vol] 4.4 mmol/L Normal 3.3-5.1 [facility] Comment on above: Order Comment: 133 Performed By: #### L 501.080 #### [facility] [address] [place], [address] Sodium [Moles/Vol] 143 mmol/L Normal 133-145 [facility] Comment on above: Order Comment: 133 Performed By: #### L 501.080 #### [facility] [address] [place], [address] T PROT 6.7 g/dL Normal 5.9-8.4 [facility] Comment on above: Order Comment: 133 Performed By: #### L 501.080 #### [facility] [address] [place], [address] Urea nitrogen [Mass/Vol] 24 mg/dL High 4-19 [facility] Comment on above: Order Comment: 133 Performed By: #### L 501.080 #### [facility] [address] [place], [address] Hemoglobin A1con 10-23-2024 HbA1c (Bld) [Mass fraction] 6.2 % High <=5.6 [facility] Comment on above: Order Comment: 133 Result Comment: Norm al < 5.7 % Prediabetic 5.7 - 6.4 % Diabetic >or= 6.5 % Please note range changes. Performed By: #### L 501.080 #### [facility] [address] [place], [address] Magnesiumon 10-23-2024 Magnesium [Mass/Vol] 2.4 mg/dL High 1.5-2.2 [facility] Comment on above: Order Comment: 133 Performed By: #### L 501.080 #### [facility] [address] [place], [address] Valproic Acid (Depakene) Lev cecil 10-23-2024 VALPROIC ACID 75 ug/mL Normal 50-100 [facility] Comment on above: Order Comment: 133 Result Comment: Valp roic Acid concentrations >100 ug/mL are potentially toxic. Performed By: #### L 501.080 #### [facility] [address] [place], [address] Anion gap in Serum or Plasma Ordered By: Jigna Brantley on 09-26-2024 Anion gap [Moles/Vol] 12 mmol/L 5-15 [facility] BUN/creatinine ratioOrdered By: Jigna Brantley on 09-26-2024 Urea nitrogen/Creatinine [Mass ratio] 24.2 mg/mg High - [facility] Basic Metabolic Profile (BMP )on 09-26-2024 BUN/CRE 24.2 RATIO High 03-18 [facility] Comment on above: Order Comment: 206 Performed By: #### L 501.8100, L500.2500, L100.0100, L501.5200 #### [facility] [address] [place], [address] Calcium [Mass/Vol] 9.8 mg/dL Normal 7.6-11.0 [facility] Comment on above: Order Comment: 206 Performed By: #### L 501.8100, L500.2500, L100.0100, L501.5200 #### [facility] [address] [place], [address] Chloride [Moles/Vol] 103 mmol/L Normal 98-108 [facility] Comment on above: Order Comment: 206 Performed By: #### L 501.8100, L500.2500, L100.0100, L501.5200 #### [facility] [address] [place], [address] CO2 [Moles/Vol] 26.1 mmol/L Normal 21.0-32.0 [facility] Comment on above: Order Comment: 206 Performed By: #### L 501.8100, L500.2500, L100.0100, L501.5200 #### [facility] [address] [place], [address] Creatinine [Mass/Vol] 1.46 mg/dL High 0.70-1.20 [facility] Comment on above: Order Comment: 206 Performed By: #### L 501.8100, L500.2500, L100.0100, L501.5200 #### [facility] [address] [place], [address] GAP 12 Normal 5-15 [facility] Comment on above: Order Comment: 206 Performed By: #### L 501.8100, L500.2500, L100.0100, L501.5200 #### [facility] [address] [place], [address] GFR/1.73 sq M.predicted among non-blacks MDRD (S/P/Bld) [Vol rate/Area] 52 mL/min/{1.73_m2} Low >60 [facility] Comment on above: Order Comment: 206 Result Comment: mL/m in/1.73m2 CKD-EPI Creatinine Equation (2020) Performed By: #### L 501.8100, L500.2500, L100.0100, L501.5200 #### [facility] [address] [place], [address] Glucose [Mass/Vol] 98 mg/dL Normal 70-99 [facility] Comment on above: Order Comment: 206 Performed By: #### L 501.8100, L500.2500, L100.0100, L501.5200 #### [facility] [address] [place], [address] Potassium [Moles/Vol] 4.5 mmol/L Normal 3.3-5.1 [facility] Comment on above: Order Comment: 206 Performed By: #### L 501.8100, L500.2500, L100.0100, L501.5200 #### [facility] [address] [place], [address] Sodium [Moles/Vol] 141 mmol/L Normal 133-145 [facility] Comment on above: Order Comment: 206 Performed By: #### L 501.8100, L500.2500, L100.0100, L501.5200 #### [facility] [address] [place], [address] Urea nitrogen [Mass/Vol] 35 mg/dL High 4-19 [facility] Comment on above: Order Comment: 206 Performed By: #### L 501.8100, L500.2500, L100.0100, L501.5200 #### [facility] [address] [place], [place], [address] Carbon dioxide, total [Moles /volume] in Central venous bloodOrdered By: Jigna Brantley on 09-26-2024 CO2 [Moles/Vol] 26.1 mmol/L 21.0-32.0 [facility] Chloride assayOrdered By: Fabricio Brantley on 09-26-2024 Chloride [Moles/Vol] 103 mmol/L 98-108 [facility] Glomerular filtration rate ( GFR) estimation/1.73 sq m using serum, plasma, or whole bOrdered By: Jigna Brantley on 09-26-2024 GFR/1.73 sq M.predicted among non-blacks MDRD (S/P/Bld) [Vol rate/Area] 52 mL/min/{1.73_m2} Low >60 [facility] Comment on above: mL/min/1.73m2 CKD-EP I Creatinine Equation (2020) Magnesiumon 09-26-2024 Magnesium [Mass/Vol] 2.4 mg/dL High 1.5-2.2 [facility] Comment on above: Order Comment: 206 Performed By: #### L 501.8100, L500.2500, L100.0100, L501.5200 #### [facility] [address] [place], [place], [address] Magnesium measurement (mass/ volume)Ordered By: Jigna Brantley on 09-26-2024 Magnesium (Unsp spec) [Mass/Vol] 2.4 mg/dL High 1.5-2.2 [facility] Potassium measurement (mass/ volume)Ordered By: iJgna Brantley on 09-26-2024 Potassium (Unsp spec) [Mass/Vol] 4.5 mmol/L 3.3-5.1 [facility] Serum creatinine measurement (mass/volume)Ordered By: Jigna Brantley on 09-26-2024 Creatinine [Mass/Vol] 1.46 mg/dL High 0.70-1.20 [facility] Serum glucose measurement (m ass/volume)Ordered By: Jigna Brantley on 09-26-2024 Glucose [Mass/Vol] 98 mg/dL 70-99 [facility] Serum or plasma calcium rosalina urement (mass/volume)Ordered By: Jigna Brantley on 09-26-2024 Calcium [Mass/Vol] 9.8 mg/dL 7.6-11.0 [facility] Serum or plasma urea nitroge n measurement (mass/volume)Ordered By: Jigna Brantley on 09-26-2024 Urea nitrogen [Mass/Vol] 35 mg/dL High 4-19 [facility] Sodium levelOrdered By: Enoch Brantley on 09-26-2024 Sodium [Moles/Vol] 141 mmol/L 133-145 [facility] CRPon 08-27-2024 C-REACTIVE PROT 37.80 mg/L High 0.0-3.0 [facility] Comment on above: Order Comment: COLLE CTOR TO SPECIFY Performed By: #### L 400.0001 #### [facility] [address] [place], [place] [address] [place], [address] CRP [Mass/Vol]Ordered By: Fabricio Brantley on 08-27-2024 C-Reactive Protein Extended Range 37.80 mg/L High 0.0-3.0 [facility] Serum or plasma C reactive p rotein measurement (mass/volume)Ordered By: Jigna Brantley on 08-27-2024 CRP [Mass/Vol] 37.80 mg/L High 0.0-3.0 [facility] Serum or plasma uric acid me asurement (mass/volume)Ordered By: Jigna Brantley on 08-27-2024 Urate [Mass/Vol] 7.6 mg/dL High 3.5-7.2 [facility] Comment on above: The drugs N-Acetylcy steine and Metamizole may falsely depress this assay. Uric Acidon 08-27-2024 URIC 7.6 mg/dL High 3.5-7.2 [facility] Comment on above: Order Comment: COLLE CTOR TO SPECIFY Result Comment: The drugs N-Acetylcysteine and Metamizole may falsely depress this assay. Performed By: #### L 400.0001 #### [facility] [address] [place], [address] Absolute lymphocyte countOrd ered By: Jigna Brantley on 07-23-2024 Lymphocytes Auto (Unsp spec) [#/Vol] 3.24 10*3/uL 0.83-4.51 [facility] Absolute neutrophil countOrd ered By: Jignabailey Brantley on 07-23-2024 Neutrophils (Bld) [#/Vol] 5.5 10*3/uL 2.0-7.7 [facility] Automated lymphocyte count a s percentage of total leukocytesOrdered By: Jigna Brantley on 07-23-2024 Lymphocytes/100 WBC Auto (Unsp spec) 33.6 % 19-41 [facility] Basic Metabolic Profile (BMP )on 07-23-2024 BUN/CRE 16.1 RATIO Normal 10-20 [facility] Comment on above: Order Comment: 206.1 Performed By: #### L 501.4020 #### [facility] [address] [place], [address] CA,Total 8.6 mg/dL Normal 8.5-10.1 [facility] Comment on above: Order Comment: 206.1 Performed By: #### L 501.4020 #### [facility] [address] [place], [address] Chloride [Moles/Vol] 102 mmol/L Normal 98-107 [facility] Comment on above: Order Comment: 206.1 Performed By: #### L 501.4020 #### [facility] [address] [place], [address] CO2 [Moles/Vol] 31.0 mmol/L Normal 21.0-32.0 [facility] Comment on above: Order Comment: 206.1 Performed By: #### L 501.4020 #### [facility] [address] [place], [address] Creatinine [Mass/Vol] 1.37 mg/dL High 0.70-1.30 [facility] Comment on above: Order Comment: 206.1 Result Comment: The validity of the calculated GFR GFRAA in patients over 70 years has not been determined. Clinical correlation is essential. Performed By: #### L 501.4020 #### [facility] [address] [place], [address] EST GFR - AA 67 mL/min Normal >60 [facility] Comment on above: Order Comment: 206.1 Result Comment: Afri can Singaporean GFR Calc Performed By: #### L 501.4020 #### [facility] [address] [place], [address] GAP 5 Normal 5-15 [facility] Comment on above: Order Comment: 206.1 Performed By: #### L 501.4020 #### [facility] [address] [place], [address] GFR/1.73 sq M.predicted among non-blacks MDRD (S/P/Bld) [Vol rate/Area] 55 mL/min/{1.73_m2} Low >60 [facility] Comment on above: Order Comment: 206.1 Result Comment: Non- GFR Calc Performed By: #### L 501.4020 #### [facility] [address] [place], [address] Glucose [Mass/Vol] 92 mg/dL Normal 74-106 [facility] Comment on above: Order Comment: 206.1 Performed By: #### L 501.4020 #### [facility] [address] [place], [address] Potassium [Moles/Vol] 4.1 mmol/L Normal 3.5-5.1 [facility] Comment on above: Order Comment: 206.1 Performed By: #### L 501.4020 #### [facility] [address] [place], [address] Sodium [Moles/Vol] 138 mmol/L Normal 136-145 [facility] Comment on above: Order Comment: 206.1 Performed By: #### L 501.4020 #### [facility] [address] [place], [address] Urea nitrogen [Mass/Vol] 22 mg/dL High 7-18 [facility] Comment on above: Order Comment: 206.1 Performed By: #### L 501.4020 #### [facility] [address] [place], [address] Basophil percentageOrdered B y: Jigna Brantley on 07-23-2024 Basophils/100 WBC (Bld) 0.5 % 0-1 [facility] Blood urea nitrogen (BUN)/cr eatinine ratioOrdered By: Jigna Brantley on 07-23-2024 Urea nitrogen/Creatinine [Mass ratio] 16.1 mg/mg 10-20 [facility] CBC W/Diff, Automatedon 07-01 Absolute Lymph 3.24 X10 3/uL Normal 0.83-4.51 [facility] Comment on above: Order Comment: .1 Performed By: #### L 501.4020 #### [facility] [address] [place], [address] Absolute Neut 5.5 X10 3/uL Normal 2.0-7.7 [facility] Comment on above: Order Comment: 206.1 Performed By: #### L 501.4020 #### [facility] [address] [place], [address] Basophils/100 WBC (Bld) 0.5 % Normal 0-1 [facility] Comment on above: Order Comment: 206.1 Performed By: #### L [id number] #### [facility] [address] [place], [address] Eosinophils/100 WBC (Bld) 0.6 % Normal 0-5 [facility] Comment on above: Order Comment: 206.1 Performed By: #### L [id number] #### [facility] [address] [place], [address] Erythrocyte distribution width (RBC) [Ratio] 14.1 % Normal 11.6-14.6 [facility] Comment on above: Order Comment: .1 Performed By: #### L [id number] #### [facility] [address] [place], [address] Hematocrit (Bld) [Volume fraction] 43.3 % Normal 40-54 [facility] Comment on above: Order Comment: . Performed By: #### L [id number] #### [facility] [address] [place], [address] Hemoglobin (Bld) [Mass/Vol] 13.9 g/dL Normal 13.0-16.5 [facility] Comment on above: Order Comment: .1 Performed By: #### L 501.4020 #### [facility] [address] [place], [address] IG% 0.600 Normal 0.0-0.9 [facility] Comment on above: Order Comment: .1 Result Comment: IG% - Immature Granulocytes (promyelocytes, myelocytes and metamyelocytes) > 1% indicates that a LEFT SHIFT is Present. Performed By: #### L 501.4020 #### [facility] [address] [place], [address] Lymphocytes/100 WBC (Bld) 33.6 % Normal 19-41 [facility] Comment on above: Order Comment: .1 Performed By: #### L [id number] #### [facility] [address] [place], [address] MCH (RBC) [Entitic mass] 30.3 pg Normal 27.0-32.0 [facility] Comment on above: Order Comment: 206.1 Performed By: #### L 501.4020 #### [facility] [address] [place], [address] MCHC (RBC) [Mass/Vol] 32.1 g/dL Normal 32-36 [facility] Comment on above: Order Comment: 206.1 Performed By: #### L 501.4020 #### [facility] [address] [place], [address] MCV (RBC) [Entitic vol] 94.3 fL High 80-94 [facility] Comment on above: Order Comment: 206.1 Performed By: #### L [id number] #### [facility] [address] [place], [address] Monocytes/100 WBC (Bld) 7.2 % Normal 0-10 [facility] Comment on above: Order Comment: 206.1 Performed By: #### L [id number] #### [facility] [address] [place], [address] Neutrophils/100 WBC (Bld) 57.5 % Normal 47-70 [facility] Comment on above: Order Comment: 206.1 Performed By: #### L [id number] #### [facility] [address] [place], [address] Nucleated RBC (Bld) [#/Vol] 0 10*3/uL Normal 0-5 [facility] Comment on above: Order Comment: 206.1 Performed By: #### L [id number] #### [facility] [address] [place], [address] Platelet mean volume (Bld) [Entitic vol] 11.2 fL Normal 6.2-12.0 [facility] Comment on above: Order Comment: 206.1 Performed By: #### L [id number] #### [facility] [address] [place], [address] Platelets (Bld) [#/Vol] 320 10*3/uL Normal 150-450 [facility] Comment on above: Order Comment: 206. Performed By: #### L [id number] #### [facility] [address] [place], [address] RBC (Bld) [#/Vol] 4.59 10*6/uL Low 4.6-6.2 [facility] Comment on above: Order Comment: 206.1 Performed By: #### L [id number] #### [facility] [address] [place], [address] RDW SD 48.2 fl High 35.1-43.9 [facility] Comment on above: Order Comment: . Performed By: #### L [id number] #### [facility] [address] [place], [address] WBC (Bld) [#/Vol] 9.6 10*3/uL Normal 4.4-11.0 [facility] Comment on above: Order Comment: 206. Performed By: #### L [id number] #### [facility] [address] [place], [address] Carbon dioxide measurementOr dered By: Jigna Brantley on 07-23-2024 CO2 [Moles/Vol] 31.0 mmol/L 21.0-32.0 [facility] Chloride measurementOrdered By: Jigna Brantley on 07-23-2024 Chloride [Moles/Vol] 102 mmol/L 98-107 [facility] Eosinophil percentageOrdered By: Jigna Brantley on 07-23-2024 Eosinophils/100 WBC (Bld) 0.6 % 0-5 [facility] Erythrocyte distribution wid th (RBC) [Ratio]Ordered By: Jigna Brantley on 07-23-2024 Erythrocyte distribution width (RBC) [Entitic vol] 48.2 fL High 35.1-43.9 [facility] Erythrocyte distribution wid th ratioOrdered By: Jigna Brantley on 07-23-2024 Erythrocyte distribution width (RBC) [Ratio] 14.1 % 11.6-14.6 [facility] Erythrocyte distribution wid th standard deviationOrdered By: Jigna Brantley on 07-23-2024 Erythrocyte distribution width (RBC) [Ratio] 48.2 fl High 35.1-43.9 [facility] Estimated glomerular filtrat ion rate (GFR) AmericanOrdered By: Jigna Brantley on 07-23-2024 Estimated GFR (MDRD) Amer 67 mL/min >60 [facility] Comment on above: GFR Calc Glomerular filtration rate ( GFR) estimationOrdered By: Jigna Brantley on 07-23-2024 Estimated GFR (MDRD) Non-Af Amer 55 mL/min Low >60 [facility] Comment on above: Non- GFR Calc GFR/1.73 sq M.predicted among non-blacks MDRD (S/P/Bld) [Vol rate/Area] 55 mL/min/{1.73_m2} Low >60 [facility] Comment on above: Non- GFR Calc Glucose measurementOrdered B y: Jigna Brantley on 07-23-2024 Glucose [Mass/Vol] 92 mg/dL 74-106 [facility] Hematocrit Auto (Bld) [Volum e fraction]Ordered By: Jigna Brantley on 07-23-2024 Hematocrit (Bld) [Volume fraction] 43.3 % 40-54 [facility] Hemoglobin measurementOrdere d By: Jigna Brantley on 07-23-2024 Hemoglobin (Bld) [Mass/Vol] 13.9 g/dL 13.0-16.5 [facility] Immature granulocytes/100 WB C Auto (Bld)Ordered By: Jigna Brantley on 07-23-2024 Immature granulocytes/100 WBC (Bld) 0.600 % 0.0-0.9 [facility] Comment on above: IG% - Immature Granu locytes (promyelocytes, myelocytes and metamyelocytes) > 1% indicates that a LEFT SHIFT is Present. Lymphocytes Auto (Unsp spec) [#/Vol]Ordered By: Jigna Brantley on 07-23-2024 Lymphocytes (Bld) [#/Vol] 3.24 10*3/uL 0.83-4.51 [facility] Lymphocytes/100 WBC Auto (Un sp spec)Ordered By: Jigna Brantley on 07-23-2024 Lymphocytes/100 WBC (Bld) 33.6 % 19-41 [facility] MCV (mean corpuscular volume ) determinationOrdered By: Jigna Brantley on 07-23-2024 MCV (RBC) [Entitic vol] 94.3 fL High 80-94 [facility] Magnesiumon 07-23-2024 Magnesium [Mass/Vol] 2.5 mg/dL Normal 1.6-2.6 [facility] Comment on above: Order Comment: 206.1 Performed By: #### L [id number] #### [facility] [address] [place], [place] [address], [address] Magnesium measurementOrdered By: Jigna Brantley on 07-23-2024 Magnesium [Mass/Vol] 2.5 mg/dL 1.6-2.6 [facility] Mean corpuscular hemoglobin (MCH) determinationOrdered By: Jigna Brantley on 07-23-2024 MCH (RBC) [Entitic mass] 30.3 pg 27.0-32.0 [facility] Mean corpuscular hemoglobin concentration (MCHC) determinationOrdered By: Jigna Brantley on 07-23-2024 MCHC (RBC) [Mass/Vol] 32.1 g/dL 32-36 [facility] Mean platelet volume determi nationOrdered By: Jigna Brantley on 07-23-2024 Platelet mean volume (Bld) [Entitic vol] 11.2 fL 6.2-12.0 [facility] Monocyte percentageOrdered B y: Jigna Brantley on 07-23-2024 Monocytes/100 WBC (Bld) 7.2 % 0-10 [facility] Neutrophil percentageOrdered By: Jigna Brantley on 07-23-2024 Neutrophils/100 WBC (Bld) 57.5 % 47-70 [facility] Nucleated red blood cell per centageOrdered By: Jigna Brantley on 07-23-2024 Nucleated RBC/100 WBC (Bld) [Ratio] 0 % 0-5 [facility] Platelet countOrdered By: Fabricio Brantley on 07-23-2024 Platelets (Bld) [#/Vol] 320 10*3/uL 150-450 [facility] Potassium measurementOrdered By: Jigna Brantley on 07-23-2024 Potassium [Moles/Vol] 4.1 mmol/L 3.5-5.1 [facility] RBC Auto (Bld) [#/Vol]Ordere d By: Jigna Brantley on 07-23-2024 RBC (Bld) [#/Vol] 4.59 10*6/uL Low 4.6-6.2 [facility] Serum anion gap measurementO rdered By: Jigna Brantley on 07-23-2024 Anion gap [Moles/Vol] 5 mmol/L 5-15 [facility] Serum or plasma calcium rosalina urement (mass/volume)Ordered By: Jigna Brantley on 07-23-2024 Calcium [Mass/Vol] 8.6 mg/dL 8.5-10.1 [facility] Serum or plasma creatinine m easurement (mass/volume)Ordered By: Jigna Brantley on 07-23-2024 Creatinine [Mass/Vol] 1.37 mg/dL High 0.70-1.30 [facility] Comment on above: The validity of the calculated GFR & GFRAA in patients over 70 years has not been determined. Clinical correlation is essential. Serum or plasma urea nitroge n measurement (mass/volume)Ordered By: Jigna Brantley on 07-23-2024 Urea nitrogen [Mass/Vol] 22 mg/dL High 7-18 [facility] Sodium levelOrdered By: Enoch Brantley on 07-23-2024 Sodium [Moles/Vol] 138 mmol/L 136-145 [facility] White blood cell (WBC) count Ordered By: Jigna Brantley on 02-24-2025 WBC (Bld) [#/Vol] 9.6 10*3/uL 4.4-11.0 [facility] Absolute lymphocyte countOrd ered By: Jigna Brantley on 07-16-2024 Lymphocytes Auto (Unsp spec) [#/Vol] 1.83 10*3/uL 0.83-4.51 [facility] Absolute neutrophil countOrd ered By: Jigna Brantley on 07-16-2024 Neutrophils (Bld) [#/Vol] 7.9 10*3/uL High 2.0-7.7 [facility] Automated lymphocyte count a s percentage of total leukocytesOrdered By: Jigna Brantley on 07-16-2024 Lymphocytes/100 WBC Auto (Unsp spec) 17.2 % Low 19-41 [facility] Basic Metabolic Profile (BMP )on 07-16-2024 BUN/CRE 18.8 RATIO Normal 10-20 [facility] Comment on above: Order Comment: 206 Performed By: #### L 501.8100, L500.2500, L100.0100, L501.5200 #### [facility] [address] [place], [address] CA,Total 9.3 mg/dL Normal 8.5-10.1 [facility] Comment on above: Order Comment: 206 Performed By: #### L 501.8100, L500.2500, L100.0100, L501.5200 #### [facility] [address] [place], [address] Chloride [Moles/Vol] 103 mmol/L Normal 98-107 [facility] Comment on above: Order Comment: 206 Performed By: #### L [id number], L500.2500, L100.0100, L501.5200 #### [facility] [address] [place], [address] CO2 [Moles/Vol] 27.0 mmol/L Normal 21.0-32.0 [facility] Comment on above: Order Comment: 206 Performed By: #### L 501.8100, L500.2500, L100.0100, L501.5200 #### [facility] [address] [place], [address] Creatinine [Mass/Vol] 1.17 mg/dL Normal 0.70-1.30 [facility] Comment on above: Order Comment: 206 Result Comment: The validity of the calculated GFR GFRAA in patients over 70 years has not been determined. Clinical correlation is essential. Performed By: #### L 501.8100, L500.2500, L100.0100, L501.5200 #### [facility] [address] [place], [address] EST GFR - AA 80 mL/min Normal >60 [facility] Comment on above: Order Comment: 206 Result Comment: Afri can Singaporean GFR Calc Performed By: #### L 501.8100, L500.2500, L100.0100, L501.5200 #### [facility] [address] [place], [address] GAP 9 Normal 5-15 [facility] Comment on above: Order Comment: 206 Performed By: #### L 501.8100, L500.2500, L100.0100, L501.5200 #### [facility] [address] [place], [address] GFR/1.73 sq M.predicted among non-blacks MDRD (S/P/Bld) [Vol rate/Area] 66 mL/min/{1.73_m2} Normal >60 [facility] Comment on above: Order Comment: 206 Result Comment: Non- GFR Calc Performed By: #### L 501.8100, L500.2500, L100.0100, L501.5200 #### [facility] [address] [place], [address] Glucose [Mass/Vol] 94 mg/dL Normal 74-106 [facility] Comment on above: Order Comment: 206 Performed By: #### L 501.8100, L500.2500, L100.0100, L501.5200 #### [facility] [address] [place], [address] Potassium [Moles/Vol] 3.6 mmol/L Normal 3.5-5.1 [facility] Comment on above: Order Comment: 206 Performed By: #### L 501.8100, L500.2500, L100.0100, L501.5200 #### [facility] [address] [place], [address] Sodium [Moles/Vol] 139 mmol/L Normal 136-145 [facility] Comment on above: Order Comment: 206 Performed By: #### L 501.8100, L500.2500, L100.0100, L501.5200 #### [facility] [address] [place], [address] Urea nitrogen [Mass/Vol] 22 mg/dL High - [facility] Comment on above: Order Comment: 206 Performed By: #### L 501.8100, L500.2500, L100.0100, L501.5200 #### [facility] [address] [place], [address] Basophil percentageOrdered B y: Jigna Brantley on 07-16-2024 Basophils/100 WBC (Bld) 0.1 % 0-1 [facility] Blood urea nitrogen (BUN)/cr eatinine ratioOrdered By: Jigna Brantley on 07-16-2024 Urea nitrogen/Creatinine [Mass ratio] 18.8 mg/mg 10-20 [facility] CBC W/Diff, Automatedon 06-30 Absolute Lymph 1.83 X10 3/uL Normal 0.83-4.51 [facility] Comment on above: Order Comment: 206 Performed By: #### L 501.8100, L500.2500, L100.0100, L501.5200 #### [facility] [address] [place], [address] Absolute Neut 7.9 X10 3/uL High 2.0-7.7 [facility] Comment on above: Order Comment: 206 Performed By: #### L 501.8100, L500.2500, L100.0100, L501.5200 #### [facility] [address] [place], [address] Basophils/100 WBC (Bld) 0.1 % Normal 0-1 [facility] Comment on above: Order Comment: 206 Performed By: #### L 501.8100, L500.2500, L100.0100, L501.5200 #### [facility] [address] [place], [address] Eosinophils/100 WBC (Bld) 0.1 % Normal 0-5 [facility] Comment on above: Order Comment: 206 Performed By: #### L 501.8100, L500.2500, L100.0100, L501.5200 #### [facility] [address] [place], [address] Erythrocyte distribution width (RBC) [Ratio] 13.2 % Normal 11.6-14.6 [facility] Comment on above: Order Comment: 206 Performed By: #### L 501.8100, L500.2500, L100.0100, L501.5200 #### [facility] [address] [place], [address] Hematocrit (Bld) [Volume fraction] 41.3 % Normal 40-54 [facility] Comment on above: Order Comment: 206 Performed By: #### L 501.8100, L500.2500, L100.0100, L501.5200 #### [facility] [address] [place], [address] Hemoglobin (Bld) [Mass/Vol] 13.3 g/dL Normal 13.0-16.5 [facility] Comment on above: Order Comment: 206 Performed By: #### L 501.8100, L500.2500, L100.0100, L501.5200 #### [facility] [address] [place], [address] IG% 0.700 Normal 0.0-0.9 [facility] Comment on above: Order Comment: 206 Result Comment: IG% - Immature Granulocytes (promyelocytes, myelocytes and metamyelocytes) > 1% indicates that a LEFT SHIFT is Present. Performed By: #### L 501.8100, L500.2500, L100.0100, L501.5200 #### [facility] [address] [place], [address] Lymphocytes/100 WBC (Bld) 17.2 % Low 19-41 [facility] Comment on above: Order Comment: 206 Performed By: #### L 501.8100, L500.2500, L100.0100, L501.5200 #### [facility] [address] [place], [address] MCH (RBC) [Entitic mass] 29.7 pg Normal 27.0-32.0 [facility] Comment on above: Order Comment: 206 Performed By: #### L 501.8100, L500.2500, L100.0100, L501.5200 #### [facility] [address] [place], [address] MCHC (RBC) [Mass/Vol] 32.2 g/dL Normal 32-36 [facility] Comment on above: Order Comment: 206 Performed By: #### L 501.8100, L500.2500, L100.0100, L501.5200 #### [facility] [address] [place], [address] MCV (RBC) [Entitic vol] 92.2 fL Normal 80-94 [facility] Comment on above: Order Comment: 206 Performed By: #### L 501.8100, L500.2500, L100.0100, L501.5200 #### [facility] [address] [place], [address] Monocytes/100 WBC (Bld) 7.6 % Normal 0-10 [facility] Comment on above: Order Comment: 206 Performed By: #### L 501.8100, L500.2500, L100.0100, L501.5200 #### [facility] [address] [place], [address] Neutrophils/100 WBC (Bld) 74.3 % High 47-70 [facility] Comment on above: Order Comment: 206 Performed By: #### L 501.8100, L500.2500, L100.0100, L501.5200 #### [facility] [address] [place], [address] Nucleated RBC (Bld) [#/Vol] 0 10*3/uL Normal 0-5 [facility] Comment on above: Order Comment: 206 Performed By: #### L 501.8100, L500.2500, L100.0100, L501.5200 #### [facility] [address] [place], [address] Platelet mean volume (Bld) [Entitic vol] 10.4 fL Normal 6.2-12.0 [facility] Comment on above: Order Comment: 206 Performed By: #### L 501.8100, L500.2500, L100.0100, L501.5200 #### [facility] [address] [place], [address] Platelets (Bld) [#/Vol] 462 10*3/uL High 150-450 [facility] Comment on above: Order Comment: 206 Performed By: #### L 501.8100, L500.2500, L100.0100, L501.5200 #### [facility] [address] [place], [address] RBC (Bld) [#/Vol] 4.48 10*6/uL Low 4.6-6.2 [facility] Comment on above: Order Comment: 206 Performed By: #### L 501.8100, L500.2500, L100.0100, L501.5200 #### [facility] [address] [place], [address] RDW SD 44.1 fl High 35.1-43.9 [facility] Comment on above: Order Comment: 206 Performed By: #### L 501.8100, L500.2500, L100.0100, L501.5200 #### [facility] [address] [place], [address] WBC (Bld) [#/Vol] 10.6 10*3/uL Normal 4.4-11.0 [facility] Comment on above: Order Comment: 206 Performed By: #### L 501.8100, L500.2500, L100.0100, L501.5200 #### [facility] [address] [place], [address] CNPNon 07-16-2024 [facility] REINA SULLIVAN ([id number]) 1955 M Date Time Provider Department 07/16/24 ARIC ZAPIEN [facility] During your visit today, we recorded the following information about you: Felicita Bolden MA 07/16/2024 3:30 PM Signed Patient canceled his appointment on 07/12/24 with Isa Stevenson. He was discharged from [facility] on 07/11/24 DX: AFIB RVR, debility. 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 *09/30/2022 Migraine [...] Status:Closed by FELICITA BOLDEN on 08/07/24 Normal [facility] Carbon dioxide measurementOr dered By: Jigna Brantley on 07-16-2024 CO2 [Moles/Vol] 27.0 mmol/L 21.0-32.0 [facility] Chloride measurementOrdered By: Jigna Brantley on 07-16-2024 Chloride [Moles/Vol] 103 mmol/L 98-107 [facility] Eosinophil percentageOrdered By: Jigna Brantley on 07-16-2024 Eosinophils/100 WBC (Bld) 0.1 % 0-5 [facility] Erythrocyte distribution wid th (RBC) [Ratio]Ordered By: Jigna Brantley on 07-16-2024 Erythrocyte distribution width (RBC) [Entitic vol] 44.1 fL High 35.1-43.9 [facility] Erythrocyte distribution wid th ratioOrdered By: Jigna Brantley on 07-16-2024 Erythrocyte distribution width (RBC) [Ratio] 13.2 % 11.6-14.6 [facility] Erythrocyte distribution wid th standard deviationOrdered By: Jigna Brantley on 07-16-2024 Erythrocyte distribution width (RBC) [Ratio] 44.1 fl High 35.1-43.9 [facility] Estimated glomerular filtrat ion rate (GFR) AmericanOrdered By: Jigna Brantley on 07-16-2024 Estimated GFR (MDRD) Amer 80 mL/min >60 [facility] Comment on above: GFR Calc Glomerular filtration rate ( GFR) estimationOrdered By: Jigna Brantley on 07-16-2024 Estimated GFR (MDRD) Non-Af Amer 66 mL/min >60 [facility] Comment on above: Non- GFR Calc GFR/1.73 sq M.predicted among non-blacks MDRD (S/P/Bld) [Vol rate/Area] 66 mL/min/{1.73_m2} >60 [facility] Comment on above: Non- GFR Calc Glucose measurementOrdered B y: Jigna Brantley on 07-16-2024 Glucose [Mass/Vol] 94 mg/dL 74-106 [facility] Hematocrit Auto (Bld) [Volum e fraction]Ordered By: Jigna Brantley on 07-16-2024 Hematocrit (Bld) [Volume fraction] 41.3 % 40-54 [facility] Hemoglobin measurementOrdere d By: Jigna Brantley on 07-16-2024 Hemoglobin (Bld) [Mass/Vol] 13.3 g/dL 13.0-16.5 [facility] Immature granulocytes/100 WB C Auto (Bld)Ordered By: Jigna Brantley on 07-16-2024 Immature granulocytes/100 WBC (Bld) 0.700 % 0.0-0.9 [facility] Comment on above: IG% - Immature Granu locytes (promyelocytes, myelocytes and metamyelocytes) > 1% indicates that a LEFT SHIFT is Present. Lymphocytes Auto (Unsp spec) [#/Vol]Ordered By: Jigna Brantley on 07-16-2024 Lymphocytes (Bld) [#/Vol] 1.83 10*3/uL 0.83-4.51 [facility] Lymphocytes/100 WBC Auto (Un sp spec)Ordered By: Jigna Brantley on 07-16-2024 Lymphocytes/100 WBC (Bld) 17.2 % Low 19-41 [facility] MCV (mean corpuscular volume ) determinationOrdered By: Jigna Brantley on 07-16-2024 MCV (RBC) [Entitic vol] 92.2 fL 80-94 [facility] Magnesiumon 07-16-2024 Magnesium [Mass/Vol] 2.7 mg/dL High 1.6-2.6 [facility] Comment on above: Order Comment: 206 Performed By: #### L 501.8100, L500.2500, L100.0100, L501.5200 #### [facility] [address] [place] [address]. [place], [place], [id number] Magnesium measurementOrdered By: Jigna Brantley on 07-16-2024 Magnesium [Mass/Vol] 2.7 mg/dL High 1.6-2.6 [facility] Mean corpuscular hemoglobin (MCH) determinationOrdered By: Jigna Brantley on 07-16-2024 MCH (RBC) [Entitic mass] 29.7 pg 27.0-32.0 [facility] Mean corpuscular hemoglobin concentration (MCHC) determinationOrdered By: Jigna Brantley on 07-16-2024 MCHC (RBC) [Mass/Vol] 32.2 g/dL 32-36 [facility] Mean platelet volume determi nationOrdered By: Jigna Brantley on 07-16-2024 Platelet mean volume (Bld) [Entitic vol] 10.4 fL 6.2-12.0 [facility] Monocyte percentageOrdered B y: Jigna Brantley on 07-16-2024 Monocytes/100 WBC (Bld) 7.6 % 0-10 [facility] Neutrophil percentageOrdered By: Jigna Brantley on 07-16-2024 Neutrophils/100 WBC (Bld) 74.3 % High 47-70 [facility] Nucleated red blood cell per centageOrdered By: Jigna Brantley on 07-16-2024 Nucleated RBC/100 WBC (Bld) [Ratio] 0 % 0-5 [facility] Platelet countOrdered By: Fabricio Brantley on 07-16-2024 Platelets (Bld) [#/Vol] 462 10*3/uL High 150-450 [facility] Potassium measurementOrdered By: Jigna Brantley on 07-16-2024 Potassium [Moles/Vol] 3.6 mmol/L 3.5-5.1 [facility] RBC Auto (Bld) [#/Vol]Ordere d By: Jigna Brantley on 07-16-2024 RBC (Bld) [#/Vol] 4.48 10*6/uL Low 4.6-6.2 [facility] Serum anion gap measurementO rdered By: Jigna Brantley on 07-16-2024 Anion gap [Moles/Vol] 9 mmol/L 5-15 [facility] Serum or plasma calcium rosalina urement (mass/volume)Ordered By: Jigna Brantley on 07-16-2024 Calcium [Mass/Vol] 9.3 mg/dL 8.5-10.1 [facility] Serum or plasma creatinine m easurement (mass/volume)Ordered By: Jigna Brantley on 07-16-2024 Creatinine [Mass/Vol] 1.17 mg/dL 0.70-1.30 [facility] Comment on above: The validity of the calculated GFR & GFRAA in patients over 70 years has not been determined. Clinical correlation is essential. Serum or plasma urea nitroge n measurement (mass/volume)Ordered By: Jigna Brantley on 07-16-2024 Urea nitrogen [Mass/Vol] 22 mg/dL High 7-18 [facility] Sodium levelOrdered By: Enoch Brantley on 07-16-2024 Sodium [Moles/Vol] 139 mmol/L 136-145 [facility] Valproate levelOrdered By: Keo Brantley on 07-16-2024 Valproic Acid (Depakene) Level 71 ug/mL 50-100 [facility] Valproic Acid (Depakene) Lev cecil 07-16-2024 VALPROIC ACID 71 ug/mL Normal 50-100 [facility] Comment on above: Order Comment: 206 Performed By: #### L 501.8100, L500.2500, L100.0100, L501.5200 #### [facility] [address] [place], [address] White blood cell (WBC) count Ordered By: Jigna Brantley on 07-16-2024 WBC (Bld) [#/Vol] 10.6 10*3/uL 4.4-11.0 [facility] 15-NG-Ymfdniy DOrdered By: Keo Brantley on 07-12-2024 Vitamin D 25-Hydroxy 6.3 ng/mL [facility] Comment on above: Vitamin D 25(OH) Sta tus Range Deficiency <20 ng/mL (50nmol/L) Insufficiency 20 - 30 ng/mL (50 - 75 nmol/L) Sufficiency 30 - 100 ng/mL (75 - 250 nmol/L) Toxicity >100 ng/mL (>250 nmol/L) Absolute lymphocyte countOrd ered By: Jigna Brantley on 07-12-2024 Lymphocytes Auto (Unsp spec) [#/Vol] 1.79 10*3/uL 0.83-4.51 [facility] Absolute neutrophil countOrd ered By: Jigna Brantley on 07-12-2024 Neutrophils (Bld) [#/Vol] 7.6 10*3/uL 2.0-7.7 [facility] Automated lymphocyte count a s percentage of total leukocytesOrdered By: Jigna Brantley on 07-12-2024 Lymphocytes/100 WBC Auto (Unsp spec) 17.4 % Low 19-41 [facility] Basic Metabolic Profile (BMP )on 07-12-2024 BUN/CRE 21.0 RATIO High 10-20 [facility] Comment on above: Order Comment: TORI CTOR TO SPECIFY Performed By: #### L 400.0001 #### [facility] [address] [place], [address] CA,Total 9.6 mg/dL Normal 8.5-10.1 [facility] Comment on above: Order Comment: TORI CTOR TO SPECIFY Performed By: #### L 400.0001 #### [facility] [address] [place], [address] Chloride [Moles/Vol] 104 mmol/L Normal 98-107 [facility] Comment on above: Order Comment: TORI CTOR TO SPECIFY Performed By: #### L 400.0001 #### [facility] [address] [place], [address] CO2 [Moles/Vol] 32.0 mmol/L Normal 21.0-32.0 [facility] Comment on above: Order Comment: TORI CTOR TO SPECIFY Performed By: #### L 400.0001 #### [facility] [address] [place], [address] Creatinine [Mass/Vol] 1.19 mg/dL Normal 0.70-1.30 [facility] Comment on above: Order Comment: TORI CTOR TO SPECIFY Result Comment: The validity of the calculated GFR GFRAA in patients over 70 years has not been determined. Clinical correlation is essential. Performed By: #### L 400.0001 #### [facility] [address] [place], [address] EST GFR - AA 78 mL/min Normal >60 [facility] Comment on above: Order Comment: TORI CTOR TO SPECIFY Result Comment: Afri can Singaporean GFR Calc Performed By: #### L 400.0001 #### [facility] [address] [place], [address] GAP 5 Normal 5-15 [facility] Comment on above: Order Comment: TORI CTOR TO SPECIFY Performed By: #### L 400.0001 #### [facility] [address] [place], [address] GFR/1.73 sq M.predicted among non-blacks MDRD (S/P/Bld) [Vol rate/Area] 65 mL/min/{1.73_m2} Normal >60 [facility] Comment on above: Order Comment: COLLE CTOR TO SPECIFY Result Comment: Non- GFR Calc Performed By: #### L 400.0001 #### [facility] [address] [place], [address] Glucose [Mass/Vol] 104 mg/dL Normal 74-106 [facility] Comment on above: Order Comment: COLLE CTOR TO SPECIFY Result Comment: Fast ing Glucose result from 100 to 125 mg/dL suggests IMPAIRED HOMEOSTASIS per A.D.A. criteria. Performed By: #### L 400.0001 #### [facility] [address] [place], [address] Potassium [Moles/Vol] 3.8 mmol/L Normal 3.5-5.1 [facility] Comment on above: Order Comment: TORI CTOR TO SPECIFY Performed By: #### L 400.0001 #### [facility] [address] [place], [address] Sodium [Moles/Vol] 141 mmol/L Normal 136-145 [facility] Comment on above: Order Comment: TORI CTOR TO SPECIFY Performed By: #### L 400.0001 #### [facility] [address] [place], [address] Urea nitrogen [Mass/Vol] 25 mg/dL High 7-18 [facility] Comment on above: Order Comment: TORI CTOR TO SPECIFY Performed By: #### L 400.0001 #### [facility] [address] [place], [address] Basophil percentageOrdered B y: Jigna Brantley on 07-12-2024 Basophils/100 WBC (Bld) 0.2 % 0-1 [facility] Blood urea nitrogen (BUN)/cr eatinine ratioOrdered By: Jigna Brantley on 07-12-2024 Urea nitrogen/Creatinine [Mass ratio] 21.0 mg/mg High 10-20 [facility] CBC W/Diff, Automatedon 06-30 Absolute Lymph 1.79 X10 3/uL Normal 0.83-4.51 [facility] Comment on above: Order Comment: TORI CTOR TO SPECIFY Performed By: #### L 400.0001 #### [facility] [address] [place], [address] Absolute Neut 7.6 X10 3/uL Normal 2.0-7.7 [facility] Comment on above: Order Comment: TORI CTOR TO SPECIFY Performed By: #### L 400.0001 #### [facility] [address] [place], [address] Basophils/100 WBC (Bld) 0.2 % Normal 0-1 [facility] Comment on above: Order Comment: TORI CTOR TO SPECIFY Performed By: #### L 400.0001 #### [facility] [address] [place], [address] Eosinophils/100 WBC (Bld) 0.0 % Normal 0-5 [facility] Comment on above: Order Comment: TORI CTOR TO SPECIFY Performed By: #### L 400.0001 #### [facility] [address] [place], [address] Erythrocyte distribution width (RBC) [Ratio] 12.8 % Normal 11.6-14.6 [facility] Comment on above: Order Comment: TORI CTOR TO SPECIFY Performed By: #### L 400.0001 #### [facility] [address] [place], [address] Hematocrit (Bld) [Volume fraction] 41.3 % Normal 40-54 [facility] Comment on above: Order Comment: COLLE CTOR TO SPECIFY Performed By: #### L 400.0001 #### [facility] [address] [place], [address] Hemoglobin (Bld) [Mass/Vol] 13.2 g/dL Normal 13.0-16.5 [facility] Comment on above: Order Comment: TORI CTOR TO SPECIFY Performed By: #### L 400.0001 #### [facility] [address] [place], [address] IG% 0.600 Normal 0.0-0.9 [facility] Comment on above: Order Comment: TORI CTOR TO SPECIFY Result Comment: IG% - Immature Granulocytes (promyelocytes, myelocytes and metamyelocytes) > 1% indicates that a LEFT SHIFT is Present. Performed By: #### L 400.0001 #### [facility] [address] [place], [address] Lymphocytes/100 WBC (Bld) 17.4 % Low 19-41 [facility] Comment on above: Order Comment: TOIR CTOR TO SPECIFY Performed By: #### L 400.0001 #### [facility] [address] [place], [address] MCH (RBC) [Entitic mass] 29.9 pg Normal 27.0-32.0 [facility] Comment on above: Order Comment: TORI CTOR TO SPECIFY Performed By: #### L 400.0001 #### [facility] [address] [place], [address] MCHC (RBC) [Mass/Vol] 32.0 g/dL Normal 32-36 [facility] Comment on above: Order Comment: TORI CTOR TO SPECIFY Performed By: #### L 400.0001 #### [facility] [address] [place], [address] MCV (RBC) [Entitic vol] 93.4 fL Normal 80-94 [facility] Comment on above: Order Comment: TORI CTOR TO SPECIFY Performed By: #### L 400.0001 #### [facility] [address] [place], [address] Monocytes/100 WBC (Bld) 8.1 % Normal 0-10 [facility] Comment on above: Order Comment: COLLE CTOR TO SPECIFY Performed By: #### L 400.0001 #### [facility] [address] [place], [address] Neutrophils/100 WBC (Bld) 73.7 % High 47-70 [facility] Comment on above: Order Comment: COLLE CTOR TO SPECIFY Performed By: #### L 400.0001 #### [facility] [address] [place], [address] Nucleated RBC (Bld) [#/Vol] 0 10*3/uL Normal 0-5 [facility] Comment on above: Order Comment: TORI CTOR TO SPECIFY Performed By: #### L 400.0001 #### [facility] [address] [place], [address] Platelet mean volume (Bld) [Entitic vol] 10.7 fL Normal 6.2-12.0 [facility] Comment on above: Order Comment: TORI CTOR TO SPECIFY Performed By: #### L 400.0001 #### [facility] [address] [place], [address] Platelets (Bld) [#/Vol] 502 10*3/uL High 150-450 [facility] Comment on above: Order Comment: COLLE CTOR TO SPECIFY Performed By: #### L 400.0001 #### [facility] [address] [place], [address] RBC (Bld) [#/Vol] 4.42 10*6/uL Low 4.6-6.2 [facility] Comment on above: Order Comment: COLLE CTOR TO SPECIFY Performed By: #### L 400.0001 #### [facility] [address] [place], [address] RDW SD 44.1 fl High 35.1-43.9 [facility] Comment on above: Order Comment: TORI CTOR TO SPECIFY Performed By: #### L 400.0001 #### [facility] [address] [place], [place], [address] WBC (Bld) [#/Vol] 10.3 10*3/uL Normal 4.4-11.0 [facility] Comment on above: Order Comment: TORI CTOR TO SPECIFY Performed By: #### L 400.0001 #### [facility] [address] [place], [place], [address] Carbon dioxide measurementOr dered By: Jigna Brantley on 07-12-2024 CO2 [Moles/Vol] 32.0 mmol/L 21.0-32.0 [facility] Chloride measurementOrdered By: Jigna Brantley on 07-12-2024 Chloride [Moles/Vol] 104 mmol/L 98-107 [facility] Eosinophil percentageOrdered By: Jigna Brantley on 07-12-2024 Eosinophils/100 WBC (Bld) 0.0 % 0-5 [facility] Erythrocyte distribution wid th (RBC) [Ratio]Ordered By: Jigna Brantley on 07-12-2024 Erythrocyte distribution width (RBC) [Entitic vol] 44.1 fL High 35.1-43.9 [facility] Erythrocyte distribution wid th ratioOrdered By: Jigna Brantley on 07-12-2024 Erythrocyte distribution width (RBC) [Ratio] 12.8 % 11.6-14.6 [facility] Erythrocyte distribution wid th standard deviationOrdered By: Jigna Brantley on 07-12-2024 Erythrocyte distribution width (RBC) [Ratio] 44.1 fl High 35.1-43.9 [facility] Estimated glomerular filtrat ion rate (GFR) AmericanOrdered By: Jigna Brantley on 07-12-2024 Estimated GFR (MDRD) Amer 78 mL/min >60 [facility] Comment on above: GFR Calc Glomerular filtration rate ( GFR) estimationOrdered By: Jigna Brantley on 07-12-2024 Estimated GFR (MDRD) Non-Af Amer 65 mL/min >60 [facility] Comment on above: Non- GFR Calc GFR/1.73 sq M.predicted among non-blacks MDRD (S/P/Bld) [Vol rate/Area] 65 mL/min/{1.73_m2} >60 [facility] Comment on above: Non- GFR Calc Glucose measurementOrdered B y: Jigna Brantley on 07-12-2024 Glucose [Mass/Vol] 104 mg/dL 74-106 [facility] Comment on above: Fasting Glucose resu lt from 100 to 125 mg/dL suggests IMPAIRED HOMEOSTASIS per A.D.A. criteria. Hematocrit Auto (Bld) [Volum e fraction]Ordered By: Jigna Brantley on 07-12-2024 Hematocrit (Bld) [Volume fraction] 41.3 % 40-54 [facility] Hemoglobin A1con 07-12-2024 HbA1c (Bld) [Mass fraction] 6.2 % High 3.8-5.6 [facility] Comment on above: Order Comment: 206.1 Result Comment: Norm al < 5.7 % Prediabetic 5.7 - 6.4 % Diabetic >or= 6.5 % Please note range changes. Performed By: #### L 501.4020 #### [facility] [address] [place], [place] [address]all [facility] [place], [address] Hemoglobin A1c percentageOrd ered By: Jigna Brantley on 07-12-2024 HbA1c (Bld) [Mass fraction] 6.2 % High 3.8-5.6 [facility] Comment on above: Normal < 5.7 % Predi abetic 5.7 - 6.4 % Diabetic >or= 6.5 % Please note range changes. Hemoglobin measurementOrdere d By: Jigna Brantley on 07-12-2024 Hemoglobin (Bld) [Mass/Vol] 13.2 g/dL 13.0-16.5 [facility] Immature granulocytes/100 WB C Auto (Bld)Ordered By: Jigna Brantley on 07-12-2024 Immature granulocytes/100 WBC (Bld) 0.600 % 0.0-0.9 [facility] Comment on above: IG% - Immature Granu locytes (promyelocytes, myelocytes and metamyelocytes) > 1% indicates that a LEFT SHIFT is Present. Lymphocytes Auto (Unsp spec) [#/Vol]Ordered By: Jigna Brantley on 07-12-2024 Lymphocytes (Bld) [#/Vol] 1.79 10*3/uL 0.83-4.51 [facility] Lymphocytes/100 WBC Auto (Un sp spec)Ordered By: Jigna Brantley on 07-12-2024 Lymphocytes/100 WBC (Bld) 17.4 % Low 19-41 [facility] MCV (mean corpuscular volume ) determinationOrdered By: Jigna Brantley on 07-12-2024 MCV (RBC) [Entitic vol] 93.4 fL 80-94 [facility] Magnesiumon 07-12-2024 Magnesium [Mass/Vol] 2.7 mg/dL High 1.6-2.6 [facility] Comment on above: Order Comment: COLLE CTOR TO SPECIFY Performed By: #### L 400.0001 #### [facility] [address] [place], [address] Magnesium measurementOrdered By: Jigna Brantley on 07-12-2024 Magnesium [Mass/Vol] 2.7 mg/dL High 1.6-2.6 [facility] Mean corpuscular hemoglobin (MCH) determinationOrdered By: Jigna Brantley on 07-12-2024 MCH (RBC) [Entitic mass] 29.9 pg 27.0-32.0 [facility] Mean corpuscular hemoglobin concentration (MCHC) determinationOrdered By: Jigna Brantley on 07-12-2024 MCHC (RBC) [Mass/Vol] 32.0 g/dL 32-36 [facility] Mean platelet volume determi nationOrdered By: Jigna Brantley on 07-12-2024 Platelet mean volume (Bld) [Entitic vol] 10.7 fL 6.2-12.0 [facility] Monocyte percentageOrdered B y: Jigna Brantley on 07-12-2024 Monocytes/100 WBC (Bld) 8.1 % 0-10 [facility] Neutrophil percentageOrdered By: Jigna Brantley on 07-12-2024 Neutrophils/100 WBC (Bld) 73.7 % High 47-70 [facility] Nucleated red blood cell per centageOrdered By: Jigna Brantley on 07-12-2024 Nucleated RBC/100 WBC (Bld) [Ratio] 0 % 0-5 [facility] Platelet countOrdered By: Fabricio Brantley on 07-12-2024 Platelets (Bld) [#/Vol] 502 10*3/uL High 150-450 [facility] Potassium measurementOrdered By: Jigna Brantley on 07-12-2024 Potassium [Moles/Vol] 3.8 mmol/L 3.5-5.1 [facility] RBC Auto (Bld) [#/Vol]Ordere d By: Jigna Brantley on 07-12-2024 RBC (Bld) [#/Vol] 4.42 10*6/uL Low 4.6-6.2 [facility] Serum anion gap measurementO rdered By: Jigna Brantley on 07-12-2024 Anion gap [Moles/Vol] 5 mmol/L 5-15 [facility] Serum or plasma calcium rosalina urement (mass/volume)Ordered By: Jigna Brantley on 07-12-2024 Calcium [Mass/Vol] 9.6 mg/dL 8.5-10.1 [facility] Serum or plasma creatinine m easurement (mass/volume)Ordered By: Jigna Brantley on 07-12-2024 Creatinine [Mass/Vol] 1.19 mg/dL 0.70-1.30 [facility] Comment on above: The validity of the calculated GFR & GFRAA in patients over 70 years has not been determined. Clinical correlation is essential. Serum or plasma thyroid stim ulating hormone (TSH) measurement (units/volume)Ordered By: Jigna Brantley on 07-12-2024 TSH Qn 2.960 uIU/mL 0.358-3.740 [facility] Serum or plasma urea nitroge n measurement (mass/volume)Ordered By: Jigna Brantley on 07-12-2024 Urea nitrogen [Mass/Vol] 25 mg/dL High 7-18 [facility] Sodium levelOrdered By: Enoch Brantley on 07-12-2024 Sodium [Moles/Vol] 141 mmol/L 136-145 [facility] TSH QnOrdered By: Jigna jefferson on 07-12-2024 Thyroid Stimulating Hormone (TSH) 2.960 uIU/mL 0.358-3.740 [facility] Thyroid Stim Hormone (TSH)on 07-12-2024 TSH 2.960 uIU/mL Normal 0.358-3.740 [facility] Comment on above: Order Comment: 206.1 Performed By: #### L 501.4020 #### [facility] [address] [facility] [address] [place], [place], [address] Vitamin B12on 07-12-2024 Cobalamin (Vitamin B12) [Mass/Vol] 273 pg/mL Normal 211-911 [facility] Comment on above: Order Comment: COLLE CTOR TO SPECIFY Performed By: #### L 400.0001 #### [facility] [address] [facility] [place], [place], [id number] Vitamin B12 measurementOrder ed By: Jigna Brantley on 07-12-2024 Cobalamin (Vitamin B12) [Mass/Vol] 273 pg/mL 211-911 [facility] Vitamin D,25 Hydroxyon 07-12 Vitamin D 25-OH 6.3 ng/mL Normal [facility] Comment on above: Order Comment: COLLE CTOR TO SPECIFY Result Comment: Divine min D 25(OH) Status Range Deficiency <20 ng/mL (50nmol/L) Insufficiency 20 - 30 ng/mL (50 - 75 nmol/L) Sufficiency 30 - 100 ng/mL (75 - 250 nmol/L) Toxicity >100 ng/mL (>250 nmol/L) Performed By: #### L 400.0001 #### [facility] [address] [facility] [address] [place], [place], [address] White blood cell (WBC) count Ordered By: Jigna Brantley on 07-12-2024 WBC (Bld) [#/Vol] 10.3 10*3/uL 4.4-11.0 [facility] Bedside Glucoseon 07-11-2024 FINGERSTICK GLU 138 mg/dL High [address] [place] [address] Comment on above: Result Comment: KARUNA GEMENT OF PATIENT CARE PER NURSING PROTOCOL Performed By: #### L 501.080 #### [facility] [address] [facility] [address] FINGERSTICK GLU 185 mg/dL High [facility]106 [facility] Comment on above: Result Comment: KARUNA GEMENT OF PATIENT CARE PER NURSING PROTOCOL Performed By: #### L 501.080 #### [facility] [address] [place], [address] FINGERSTICK GLU 105 mg/dL Normal -[address] [place] [address] Comment on above: Result Comment: KARUNA GEMENT OF PATIENT CARE PER NURSING PROTOCOL Performed By: #### L 501.080 ####[facility] [address] [place], [address] [facility] deOrdered By: Yann Ascencio on 07-11-2024 Bedside Glucose (Misc Panel) 138 mg/dL High [address] [place] [address] Comment on above: MANAGEMENT OF PATIEN T CARE PER NURSING PROTOCOL Glucose [Mass/Vol] 138 mg/dL High [facility]106 [facility] Comment on above: MANAGEMENT OF PATIEN T CARE PER NURSING PROTOCOL Absolute lymphocyte countOrd ered By: Yann Ascencio on 07-10-2024 Lymphocytes Auto (Unsp spec) [#/Vol] 0.60 10*3/uL Low 0.83-4.51 [facility] Absolute neutrophil countOrd ered By: Yann Ascencio on 07-10-2024 Neutrophils (Bld) [#/Vol] 7.5 10*3/uL 2.0-7.7 [facility] Automated lymphocyte count a s percentage of total leukocytesOrdered By: Yann Ascencio on 07-10-2024 Lymphocytes/100 WBC Auto (Unsp spec) 6.9 % Low 19-41 [facility] Basic Metabolic Profile (BMP )on 07-10-2024 BUN/CRE 17.5 RATIO Normal 10-20 [facility] Comment on above: Performed By: #### L 501.9985, L100.0100, L500.2500 ####[facility] [address] [place], [address] CA,Total 9.9 mg/dL Normal 8.5-10.1 [facility] Comment on above: Performed By: #### L 501.9985, L100.0100, L500.2500 ####[facility] [address] [place], [address] Chloride [Moles/Vol] 105 mmol/L Normal 98-107 [facility] Comment on above: Performed By: #### L 501.9985, L100.0100, L500.2500 ####[facility] [address] [place], [address] CO2 [Moles/Vol] 25.0 mmol/L Normal 21.0-32.0 [facility] Comment on above: Performed By: #### L 501.9985, L100.0100, L500.2500 ####[facility] [address] [place], [address] Creatinine [Mass/Vol] 1.03 mg/dL Normal 0.70-1.30 [facility] Comment on above: Result Comment: The validity of the calculated GFR GFRAA in patients over 70 years has not been determined. Clinical correlation is essential. Performed By: #### L 501.9985, L100.0100, L500.2500 ####[facility] [address] [place], [address] ECRCL 84.26 ml/min Normal [facility] Comment on above: Performed By: #### L 501.9985, L100.0100, L500.2500 ####[facility] [address] [place], [address] EST GFR - AA 93 mL/min Normal >60 [facility] Comment on above: Result Comment: Afri can Singaporean GFR Calc Performed By: #### L 501.9985, L100.0100, L500.2500 ####[facility] [address] [place], [address] GAP 8 Normal 5-15 [facility] Comment on above: Performed By: #### L 501.9985, L100.0100, L500.2500 ####[facility] [address] [place], [address] GFR/1.73 sq M.predicted among non-blacks MDRD (S/P/Bld) [Vol rate/Area] 76 mL/min/{1.73_m2} Normal >60 [facility] Comment on above: Result Comment: Non- GFR Calc Performed By: #### L 501.9985, L100.0100, L500.2500 ####[facility] [address] [place], [address] Glucose [Mass/Vol] 142 mg/dL High 74-106 [facility] Comment on above: Result Comment: Fast ing Glucose result greater than or equal to 126 mg/dL suggests DIABETES MELLITUS per A.D.A. criteria. Performed By: #### L 501.9985, L100.0100, L500.2500 ####[facility] [address] [place], [address] Potassium [Moles/Vol] 3.5 mmol/L Normal 3.5-5.1 [facility] Comment on above: Performed By: #### L 501.9985, L100.0100, L500.2500 ####[facility] [address] [place], [address] Sodium [Moles/Vol] 138 mmol/L Normal 136-145 [facility] Comment on above: Performed By: #### L 501.9985, L100.0100, L500.2500 ####[facility] [address] [place], [address] Urea nitrogen [Mass/Vol] 18 mg/dL Normal 7-18 [facility] Comment on above: Performed By: #### L 501.9985, L100.0100, L500.2500 ####[facility] [address] [place], [address] Basophil percentageOrdered B y: Yann Ascencio on 07-10-2024 Basophils/100 WBC (Bld) 0.1 % 0-1 [facility] Bedside Glucoseon 07-10-2024 FINGERSTICK GLU 148 mg/dL High 74-106 [facility] Comment on above: Result Comment: KARUNA GEMENT OF PATIENT CARE PER NURSING PROTOCOL Performed By: #### L 501.080 ####[facility] [address] [place], [address] FINGERSTICK GLU 111 mg/dL High 74-106 [facility] Comment on above: Result Comment: KARUNA GEMENT OF PATIENT CARE PER NURSING PROTOCOL Performed By: #### L 501.4020 #### [facility] [address] [place], [address] FINGERSTICK GLU 147 mg/dL High 74-106 [facility] Comment on above: Result Comment: KARUNA GEMENT OF PATIENT CARE PER NURSING PROTOCOL Performed By: #### L 501.080 ####[facility] [address] [place], [address] FINGERSTICK GLU 136 mg/dL High 74-106 [facility] Comment on above: Result Comment: KARUNA GEMENT OF PATIENT CARE PER NURSING PROTOCOL Performed By: #### L 501.080 #### [facility] [address] [place], [address] Blood urea nitrogen (BUN)/cr eatinine ratioOrdered By: Yann Ascencio on 07-10-2024 Urea nitrogen/Creatinine [Mass ratio] 17.5 mg/mg 10-20 [facility] CBC W/Diff, Automatedon 06-30 PATH REV Reviewed Normal [facility] Comment on above: Result Comment: Neut rophilic leukocytosis. Clinical correlation necessary. Sreekanth Zhou M.D. 07/10/24 AMENDED REPORT 07/10/24 1444 PATH REV previously reported as: September Performed By: #### L 501.8100, L500.2500, L100.0100, L501.5200 #### [facility] [address] [place], [address] Absolute Lymph 0.60 X10 3/uL Low 0.83-4.51 [facility] Comment on above: Performed By: #### L 501.9985, L100.0100, L500.2500 ####[facility] [address] [place], [address] Absolute Neut 7.5 X10 3/uL Normal 2.0-7.7 [facility] Comment on above: Performed By: #### L 501.9985, L100.0100, L500.2500 ####[facility] [address] [place], [address] Basophils/100 WBC (Bld) 0.1 % Normal 0-1 [facility] Comment on above: Performed By: #### L 501.9985, L100.0100, L500.2500 ####[facility] [address] [place], [address] Eosinophils/100 WBC (Bld) 0.0 % Normal 0-5 [facility] Comment on above: Performed By: #### L 501.9985, L100.0100, L500.2500 ####[facility] [address] [place], [address] Erythrocyte distribution width (RBC) [Ratio] 12.9 % Normal 11.6-14.6 [facility] Comment on above: Performed By: #### L 501.9985, L100.0100, L500.2500 ####[facility] [address] [place], [address] Hematocrit (Bld) [Volume fraction] 38.3 % Low 40-54 [facility] Comment on above: Performed By: #### L 501.9985, L100.0100, L500.2500 ####[facility] [address] [place], [address] Hemoglobin (Bld) [Mass/Vol] 12.2 g/dL Low 13.0-16.5 [facility] Comment on above: Performed By: #### L 501.9985, L100.0100, L500.2500 ####[facility] [address] [place], [address] IG% 0.500 Normal 0.0-0.9 [facility] Comment on above: Result Comment: IG% - Immature Granulocytes (promyelocytes, myelocytes and metamyelocytes) > 1% indicates that a LEFT SHIFT is Present. Performed By: #### L 501.9985, L100.0100, L500.2500 ####[facility] [address] [place], [address] Lymphocytes/100 WBC (Bld) 6.9 % Low 19-41 [facility] Comment on above: Performed By: #### L 501.9985, L100.0100, L500.2500 ####[facility] [address] [place], [address] MCH (RBC) [Entitic mass] 30.0 pg Normal 27.0-32.0 [facility] Comment on above: Performed By: #### L 501.9985, L100.0100, L500.2500 ####[facility] [address] [place], [address] MCHC (RBC) [Mass/Vol] 31.9 g/dL Low 32-36 [facility] Comment on above: Performed By: #### L 501.9985, L100.0100, L500.2500 ####[facility] [address] [place], [address] MCV (RBC) [Entitic vol] 94.3 fL High 80-94 [facility] Comment on above: Performed By: #### L 501.9985, L100.0100, L500.2500 ####[facility] [address] [place], [address] Monocytes/100 WBC (Bld) 6.6 % Normal 0-10 [facility] Comment on above: Performed By: #### L 501.9985, L100.0100, L500.2500 ####[facility] [address] [place], [address] Neutrophils/100 WBC (Bld) 85.9 % High 47-70 [facility] Comment on above: Performed By: #### L 501.9985, L100.0100, L500.2500 ####[facility] [address] [place], [address] Nucleated RBC (Bld) [#/Vol] 0 10*3/uL Normal 0-5 [facility] Comment on above: Performed By: #### L 501.9985, L100.0100, L500.2500 ####[facility] [address] [place], [address] Platelet mean volume (Bld) [Entitic vol] 10.9 fL Normal 6.2-12.0 [facility] Comment on above: Performed By: #### L 501.9985, L100.0100, L500.2500 ####[facility] [address] [place], [address] Platelets (Bld) [#/Vol] 300 10*3/uL Normal 150-450 [facility] Comment on above: Performed By: #### L 501.9985, L100.0100, L500.2500 ####[facility] [address] [place], [address] RBC (Bld) [#/Vol] 4.06 10*6/uL Low 4.6-6.2 [facility] Comment on above: Performed By: #### L 501.9985, L100.0100, L500.2500 ####[facility] [address] [place], [address] RDW SD 44.8 fl High 35.1-43.9 [facility] Comment on above: Performed By: #### L 501.9985, L100.0100, L500.2500 ####[facility] [address] [place], [address] WBC (Bld) [#/Vol] 8.7 10*3/uL Normal 4.4-11.0 [facility] Comment on above: Performed By: #### L 501.9985, L100.0100, L500.2500 ####[facility] [address] [place], [address] Carbon dioxide measurementOr dered By: Yann Ascencio on 07-10-2024 CO2 [Moles/Vol] 25.0 mmol/L 21.0-32.0 [facility] Chloride measurementOrdered By: Yann Ascencio on 07-10-2024 Chloride [Moles/Vol] 105 mmol/L 98-107 [facility] Eosinophil percentageOrdered By: Yann Ascencio on 07-10-2024 Eosinophils/100 WBC (Bld) 0.0 % 0-5 [facility] Erythrocyte distribution wid th (RBC) [Ratio]Ordered By: Yann Ascencio on 07-10-2024 Erythrocyte distribution width (RBC) [Entitic vol] 44.8 fL High 35.1-43.9 [facility] Erythrocyte distribution wid th ratioOrdered By: Yann Ascencio on 07-10-2024 Erythrocyte distribution width (RBC) [Ratio] 12.9 % 11.6-14.6 [facility] Erythrocyte distribution wid th standard deviationOrdered By: Yann Ascencio on 07-10-2024 Erythrocyte distribution width (RBC) [Ratio] 44.8 fl High 35.1-43.9 [facility] Estimated glomerular filtrat ion rate (GFR) AmericanOrdered By: Yann Ascencio on 07-10-2024 Estimated GFR (MDRD) Amer 93 mL/min >60 [facility] Comment on above: GFR Calc Estimation of creatinine karlee aranceOrdered By: Yann Ascencio on 07-10-2024 Estimated Creatinine Clearance Calc 84.26 ml/min [facility] Glomerular filtration rate ( GFR) estimationOrdered By: Yann Ascencio on 07-10-2024 Estimated GFR (MDRD) Non-Af Amer 76 mL/min >60 [facility] Comment on above: Non- GFR Calc GFR/1.73 sq M.predicted among non-blacks MDRD (S/P/Bld) [Vol rate/Area] 76 mL/min/{1.73_m2} >60 [facility] Comment on above: Non- GFR Calc Glucose measurementOrdered B y: Yann Ascencio on 07-10-2024 Glucose [Mass/Vol] 142 mg/dL High 74-106 [facility] Comment on above: Fasting Glucose resu lt greater than or equal to 126 mg/dL suggests DIABETES MELLITUS per A.D.A. criteria. Hematocrit Auto (Bld) [Volum e fraction]Ordered By: Yann Ascencio on 07-10-2024 Hematocrit (Bld) [Volume fraction] 38.3 % Low 40-54 [facility] Hemoglobin A1con 07-10-2024 HbA1c (Bld) [Mass fraction] 6.0 % High 3.8-5.6 [facility] Comment on above: Result Comment: Norm al < 5.7 % Prediabetic 5.7 - 6.4 % Diabetic >or= 6.5 % Please note range changes. Performed By: #### L 501.4170, L100.0100, L500.2500 ####[facility] [address] [place], [address] Hemoglobin A1c percentageOrd ered By: Yann Ascencio on 07-10-2024 HbA1c (Bld) [Mass fraction] 6.0 % High 3.8-5.6 [facility] Comment on above: Normal < 5.7 % Predi abetic 5.7 - 6.4 % Diabetic >or= 6.5 % Please note range changes. Hemoglobin measurementOrdere d By: Yann Ascencio on 07-10-2024 Hemoglobin (Bld) [Mass/Vol] 12.2 g/dL Low 13.0-16.5 [facility] Immature granulocytes/100 WB C Auto (Bld)Ordered By: Yann Ascencio on 07-10-2024 Immature granulocytes/100 WBC (Bld) 0.500 % 0.0-0.9 [facility] Comment on above: IG% - Immature Granu locytes (promyelocytes, myelocytes and metamyelocytes) > 1% indicates that a LEFT SHIFT is Present. Lymphocytes Auto (Unsp spec) [#/Vol]Ordered By: Yann Ascencio on 07-10-2024 Lymphocytes (Bld) [#/Vol] 0.60 10*3/uL Low 0.83-4.51 [facility] Lymphocytes/100 WBC Auto (Un sp spec)Ordered By: Yann Ascencio on 07-10-2024 Lymphocytes/100 WBC (Bld) 6.9 % Low 19-41 [facility] MCV (mean corpuscular volume ) determinationOrdered By: Yann Ascencio on 07-10-2024 MCV (RBC) [Entitic vol] 94.3 fL High 80-94 [facility] Mean corpuscular hemoglobin (MCH) determinationOrdered By: Yann Ascencio on 07-10-2024 MCH (RBC) [Entitic mass] 30.0 pg 27.0-32.0 [facility] Mean corpuscular hemoglobin concentration (MCHC) determinationOrdered By: Yann Ascencio on 07-10-2024 MCHC (RBC) [Mass/Vol] 31.9 g/dL Low 32-36 [facility] Mean platelet volume determi nationOrdered By: Yann Ascencio on 07-10-2024 Platelet mean volume (Bld) [Entitic vol] 10.9 fL 6.2-12.0 [facility] Monocyte percentageOrdered B y: Yann Ascencio on 07-10-2024 Monocytes/100 WBC (Bld) 6.6 % 0-10 [facility] Neutrophil percentageOrdered By: Yann Ascencio on 07-10-2024 Neutrophils/100 WBC (Bld) 85.9 % High 47-70 [facility] Nucleated red blood cell per centageOrdered By: Yann Ascencio on 07-10-2024 Nucleated RBC/100 WBC (Bld) [Ratio] 0 % 0-5 [facility] Platelet countOrdered By: Damien Ascencio on 07-10-2024 Platelets (Bld) [#/Vol] 300 10*3/uL 150-450 [facility] Potassium measurementOrdered By: Yann Ascencio on 07-10-2024 Potassium [Moles/Vol] 3.5 mmol/L 3.5-5.1 [facility] RBC Auto (Bld) [#/Vol]Ordere d By: Yann Ascencio on 07-10-2024 RBC (Bld) [#/Vol] 4.06 10*6/uL Low 4.6-6.2 [facility] Serum anion gap measurementO rdered By: Yann Ascencio on 07-10-2024 Anion gap [Moles/Vol] 8 mmol/L 5-15 [facility] Serum or plasma calcium rosalina urement (mass/volume)Ordered By: Yann Ascencio on 07-10-2024 Calcium [Mass/Vol] 9.9 mg/dL 8.5-10.1 [facility] Serum or plasma creatinine m easurement (mass/volume)Ordered By: Yann Ascencio on 07-10-2024 Creatinine [Mass/Vol] 1.03 mg/dL 0.70-1.30 [facility] Comment on above: The validity of the calculated GFR & GFRAA in patients over 70 years has not been determined. Clinical correlation is essential. Serum or plasma urea nitroge n measurement (mass/volume)Ordered By: Yann Ascencio on 02-11-2025 Urea nitrogen [Mass/Vol] 18 mg/dL 7-18 [facility] Sodium levelOrdered By: Yann Ascencio on 07-10-2024 Sodium [Moles/Vol] 138 mmol/L 136-145 [facility] White blood cell (WBC) count Ordered By: Yann Ascencio on 07-10-2024 WBC (Bld) [#/Vol] 8.7 10*3/uL 4.4-11.0 [facility] 12 Lead EKGon 07-09-2024 12 Lead EKG [facility] Cardiovascular Services [address] [place] [address] 12 Lead EKG 07/09/24 0825 MR#: [id number] Acct: [id number] Name: REINA SULLIVAN Rep #: [id number] : 1955 69 From: Олег Andrade MD Attending Dr: Dr. Yann Ascencio DO Status: ADM IN Ordering Dr: Priscilla Reynaga MD Date: 07/09/24 Location: [facility] Sex: M C Admitted: 07/09/24 Test [...] abnormality Abnormal ECG Confirmed by Олег Andrade ([id number]), news copy editor MARLENE CAMP ([id number]) on 07/10/2024 10:05:21 AM Referred By: MELY Confirmed By: Олег Andrade 07/10/24 1005 Date Олег Andrade MD CC: Dr. Priscilla Reynaga MD; Dr. Yann Ascencio DO; Dr. Aric Zapien MD Signed Normal [facility] Albumin to globulin ratioOrd ered By: Priscilla Reynaga on 07-09-2024 Albumin/Globulin [Mass ratio] 0.7 {ratio} Low 0.9-2.4 [facility] Ankle min 3 Viewson 07-09-19 25 Ankle min 3 Views [facility] Imaging Services [address] [address] Ankle min 3 Views MR#: [id number] Acct: [id number] Name: REINA SULLIVAN Rep #: [id number] : 1955 M 69 From: Roscoe emmanuel MD PCP: Dr. Aric Zapien MD Status: REG ER Study: Ankle min 3 Views Date of Exam: 07/09/24 Exam# [id number] Ordering Dr: Priscilla Reynaga MD EXAM: ANKLE MIN 3 VIEWS CLINICAL HISTORY: Pain following injury. COMPARISON: None. TECHNIQUE: Three views were obtained. FINDINGS: Diffuse soft tissue swelling. No fracture is seen. Small plantar spur. RAD/Ankle min 3 Views IMPRESSION: Diffuse soft tissue swelling. Reading Location: [facility] CC: Dr. Priscilla Reynaga MD; Dr. Aric Zapien MD Investigation Specialist: Signed Normal [facility] Bedside Glucoseon 07-09-2024 FINGERSTICK GLU 132 mg/dL High 74-106 [facility] Comment on above: Result Comment: KARUNA GEMENT OF PATIENT CARE PER NURSING PROTOCOL Performed By: #### L 501.4020 #### [facility] [address] [facility] [address] FINGERSTICK GLU 152 mg/dL High 74-106 [facility] Comment on above: Result Comment: KARUNA GEMENT OF PATIENT CARE PER NURSING PROTOCOL Performed By: #### L 501.080 #### [facility] [address] [facility] [address] FINGERSTICK GLU 109 mg/dL High 74-106 [facility] Comment on above: Result Comment: KARUNA GEMENT OF PATIENT CARE PER NURSING PROTOCOL Performed By: #### L 501.080 ####[facility] [address] [facility] [address] Bilirubin Test strip Ql (U)O rdered By: Priscilla Reynaga on 07-09-2024 Bilirubin Ql (U) 1 mg/dL High Negative [facility] Comment on above: COLOR OF URINE MAY A FFECT DIPSTICK RESULTS. Bilirubin, totalOrdered By: Priscilla Reynaga on 07-09-2024 Bilirubin [Mass/Vol] 0.80 mg/dL 0.20-1.00 [facility] Comment on above: For patients on eltr ombopag therapy, use of Dimension [place] TBIL is not recommended. Chest 1 View (Portable)on Chest 1 View (Portable) [facility] Imaging Services [address] [place] [address] Chest 1 View (Portable) MR#: [id number] Acct: [id number] Name: REINA SULLIVAN Rep #: [id number] : 1955 M 69 From: Jeffy Belle PCP: Dr. Aric Zapien MD Status: REG ER Study: Chest 1 View (Portable) Date of Exam: 07/09/24 Exam# [id number] Ordering Dr: Priscilla Reynaga MD PROCEDURE: CHEST [...] acute osseous process is seen. Reading Location: [address] CC: Dr. Priscilla Reynaga MD; Dr. Aric Zapien MD Investigation Specialist: Signed Normal [facility] Comprehensive Metabolic Prof ilon 07-09-2024 Albumin [Mass/Vol] 2.9 g/dL Low 3.2-5.0 [facility] Comment on above: Performed By: #### L 501.8100, L500.2500, L100.0100, L501.5200 #### [facility] [address] [place], [address] Albumin/Globulin [Mass ratio] 0.7 {ratio} Low 0.9-2.4 [facility] Comment on above: Performed By: #### L 501.8100, L500.2500, L100.0100, L501.5200 #### [facility] [address] [place], [address] ALK P 68 U/L Normal 45-117 [facility] Comment on above: Performed By: #### L 501.8100, L500.2500, L100.0100, L501.5200 #### [facility] [address] [place], [address] ALT [Catalytic activity/Vol] 16 U/L Normal 16-61 [facility] Comment on above: Performed By: #### L 501.8100, L500.2500, L100.0100, L501.5200 #### [facility] [address] [place], [address] AST [Catalytic activity/Vol] 11 U/L Low 15-37 [facility] Comment on above: Performed By: #### L 501.8100, L500.2500, L100.0100, L501.5200 #### [facility] [address] [place], [address] Bilirubin [Mass/Vol] 0.80 mg/dL Normal 0.20-1.00 [facility] Comment on above: Result Comment: For patients on eltrombopag therapy, use of Dimension [place] TBIL is not recommended. Performed By: #### L 501.8100, L500.2500, L100.0100, L501.5200 #### [facility] [address] [place], [address] BUN/CRE 14.5 RATIO Normal 10-20 [facility] Comment on above: Performed By: #### L 501.8100, L500.2500, L100.0100, L501.5200 #### [facility] [address] [place], [address] CA,Total 9.3 mg/dL Normal 8.5-10.1 [facility] Comment on above: Performed By: #### L 501.8100, L500.2500, L100.0100, L501.5200 #### [facility] [address] [place], [address] Chloride [Moles/Vol] 104 mmol/L Normal 98-107 [facility] Comment on above: Performed By: #### L 501.8100, L500.2500, L100.0100, L501.5200 #### [facility] [address] [place], [address] CO2 [Moles/Vol] 27.0 mmol/L Normal 21.0-32.0 [facility] Comment on above: Performed By: #### L 501.8100, L500.2500, L100.0100, L501.5200 #### [facility] [address] [place], [address] Creatinine [Mass/Vol] 1.38 mg/dL High 0.70-1.30 [facility] Comment on above: Result Comment: The validity of the calculated GFR GFRAA in patients over 70 years has not been determined. Clinical correlation is essential. Performed By: #### L 501.8100, L500.2500, L100.0100, L501.5200 #### [facility] [address] [place], [address] ECRCL 66.83 ml/min Normal [facility] Comment on above: Performed By: #### L 501.8100, L500.2500, L100.0100, L501.5200 #### [facility] [address] [place], [address] EST GFR - AA 66 mL/min Normal >60 [facility] Comment on above: Result Comment: Afri can Singaporean GFR Calc Performed By: #### L 501.8100, L500.2500, L100.0100, L501.5200 #### [facility] [address] [place], [address] GAP 10 Normal 5-15 [facility] Comment on above: Performed By: #### L 501.8100, L500.2500, L100.0100, L501.5200 #### [facility] [address] [place], [address] GFR/1.73 sq M.predicted among non-blacks MDRD (S/P/Bld) [Vol rate/Area] 55 mL/min/{1.73_m2} Low >60 [facility] Comment on above: Result Comment: Non- GFR Calc Performed By: #### L 501.8100, L500.2500, L100.0100, L501.5200 #### [facility] [address] [place], [address] Globulin (S) [Mass/Vol] 4.4 g/dL High 2.2-4.2 [facility] Comment on above: Performed By: #### L 501.8100, L500.2500, L100.0100, L501.5200 #### [facility] [address] [place], [address] Glucose [Mass/Vol] 117 mg/dL High 74-106 [facility] Comment on above: Result Comment: Fast ing Glucose result from 100 to 125 mg/dL suggests IMPAIRED HOMEOSTASIS per A.D.A. criteria. Performed By: #### L 501.8100, L500.2500, L100.0100, L501.5200 #### [facility] [address] [place], [address] Potassium [Moles/Vol] 3.1 mmol/L Low 3.5-5.1 [facility] Comment on above: Performed By: #### L 501.8100, L500.2500, L100.0100, L501.5200 #### [facility] [address] [place], [address] Sodium [Moles/Vol] 141 mmol/L Normal 136-145 [facility] Comment on above: Performed By: #### L 501.8100, L500.2500, L100.0100, L501.5200 #### [facility] [address] [place], [address] T PROT 7.3 g/dL Normal 6.4-8.2 [facility] Comment on above: Performed By: #### L 501.8100, L500.2500, L100.0100, L501.5200 #### [facility] [address] [place], [address] Urea nitrogen [Mass/Vol] 20 mg/dL High 7-18 [facility] Comment on above: Performed By: #### L 501.8100, L500.2500, L100.0100, L501.5200 #### [facility] [address] [place], [address] D-Dimer Quantitative (DVT/PE )on 07-09-2024 D-DIMER QUANT 1.11 FEU/ug/m Invalid Interpretation Code 0.27-0.49 [facility] Comment on above: Result Comment: D-Di phillip ELEVATED (>0.49): Additional studies and clinical assessments are indicated to conclude diagnosis of: Deep Vein Thrombosis (DVT) or Pulmonary Embolism (PE) CRITICAL VALUE CALLED TO Reddy CHRISTIE 07/09/24 0925 Vesta Gutierrez. RESULTS READ BACK BY . Performed By: #### L 501.8100, L500.2500, L100.0100, L501.5200 #### [facility] [address] [place], [address] D-dimer measurement for deep venous thrombosisOrdered By: Priscilla Reynaga on 07-09-2024 D-Dimer Quantitative (PE/DVT) 1.11 FEU/ug/m High 0.27-0.49 [facility] Comment on above: D-Dimer ELEVATED (>0 .49): Additional studies and clinicalassessments are indicated to conclude diagnosis of:Deep Vein Thrombosis (DVT) or Pulmonary Embolism (PE)CRITICAL VALUE CALLED TO Reddy CHRISTIE07/09/24 0925 Vesta Gutierrez.RESULTS READ BACK BY . Echo Completeon 07-09-2024 Echo Complete [facility] Cardiovascular Services [address] [place] [address] Echo Complete 07/10/24 0827 MR#: [id number] Acct: [id number] Name: REINA SULLIVAN Rep #: [id number] : 1955 69 From: Estuardo Irby MD [...] MD Date Dictated: 07/10/24826 Date Transcribed: 07/10/241452 Investigation Specialist: Signed Normal [facility] Emergency Department Summary on 07-09-2024 Emergency Department Summary [facility] Medical Records Department [address] [place] [address] Emergency Department Summary 07/09/24 MR#: [id number] Acct: [id number] Name: REINA SULLIVAN Rep #: [id number] : 1955 69 From: Priscilla Reynaga MD [...] 2 diabetes mellitus TIA (transient ischemic attack) [place] (myocardial infarction) Hyperlipidemia Atrial fibrillation with rapid [...] tachycard (more content not included)... Normal [facility] Epithelial cells.renal LM.HP F (Urine sed) [#/Area]Ordered By: Priscilla Reynaga on 07-09-2024 Urine Renal Epithelial Cells 0-5 SEEN /hpf 0-5 [facility] Epithelial cells.squamous LM Ql (Urine sed)Ordered By: Priscilal Reynaga on 07-09-2024 Epithelial cells.squamous LM.HPF (Urine sed) [#/Area] 0 /[HPF] 0-5 [facility] Fine Granular Casts LM.LPF ( Urine sed) [#/Area]Ordered By: Priscilla Reynaga on 07-09-2024 Urine Fine Granular Casts 0-5 SEEN /lpf 0-5 [facility] Foot min 3 Viewson 5 Foot min 3 Views [facility] Imaging Services [address] [place] [place] [address] Foot min 3 Views MR#: [id number] Acct: [id number] Name: REINA SULLIVAN Rep #: [id number] : 1955 M 69 From: Roscoe emmanuel MD PCP: Dr. Aric Zapien MD Status: REG ER Study: Foot min 3 Views Date of Exam: 07/09/24 Exam# [id number] Ordering Dr: Priscilla Reynaga MD EXAM: FOOT MIN 3 VIEWS CLINICAL HISTORY: Pain following injury. COMPARISON: None TECHNIQUE: Three views were obtained. FINDINGS: Diffuse dorsal soft tissue swelling. RAD/Foot min 3 Views IMPRESSION: Diffuse dorsal soft tissue swelling. Reading Location: [place] [address] CC: Dr. Priscilla Reynaga MD; Dr. Aric Zapien MD Investigation Specialist: Signed Normal [facility] Glucose Ql (U)Ordered By: Dmitry Reynaga on 07-09-2024 Urine Glucose (UA) Normal mg/dl Normal [facility] H AND P Exam - Hospitaliston 07-09-2024 H&P Exam - Hospitalist [facility] Medical Records Department [address] [place] [address] H P Exam - Hospitalist 07/09/24 1039 MR#: [id number] Acct: [id number] Name: REINA SULLIVAN Rep #: [id number] : 1955 69 From: Yann Ascencio DO PCP: Dr. Aric Zapien MD Status:ADM IN Location: [facility] [id number] HPI - General General Date of Service: [...] 2 diabetes mellitus TIA (transient ischemic attack) [place] (myocardial infarction) Hyperlipidemia Atrial fibrillation with rapid [...] tablet 40 mg PO DAILY 11/17/22 Unknown [facility] blood pressure test kit-medium #1 ea [...] Re (more content not included)... Normal [facility] Hyaline casts LM.LPF (Urine sed) [#/Area]Ordered By: Priscilla Reynaga on 07-09-2024 Hyaline casts (Urine sed) [#/Area] 5 /[LPF] 0-5 [facility] Hyaline casts LM Ql (Urine sed) 5-10 SEEN /lpf 0-5 [facility] Ketones Test strip Ql (U)Ord ered By: Priscilla Reynaga on 07-09-2024 Ketones Ql (U) 50 mg/dl High Negative [facility] L501.4020on 07-09-2024 TROPONIN-I HS 18 pg/mL Normal 3.0-78.0 [facility] Comment on above: Order Comment: COLLE CTOR TO SPECIFY Result Comment: Cristina harris Note: New Test Units and Gender Specific Reference Ranges. For more information see Policy Stat Procedure [place] High Sensitivity Troponin (TNIH) and attachments. Performed By: #### L 400.0001 #### [facility] [address] [place], [address] TROPONIN-I HS 18 pg/mL Normal 3.0-78.0 [facility] Comment on above: Result Comment: Plea se Note: New Test Units and Gender Specific Reference Ranges. For more information see Policy Stat Procedure [place] High Sensitivity Troponin (TNIH) and attachments. Performed By: #### L 501.4020 #### [facility] [address] [place], [address] L501.5425on 07-09-2024 TROPONIN-I HS 15 pg/mL Normal 3.0-78.0 [facility] Comment on above: Order Comment: 206 Result Comment: Plea se Note: New Test Units and Gender Specific Reference Ranges. For more information see Policy Stat Procedure [place] High Sensitivity Troponin (TNIH) and attachments. Performed By: #### L 501.8100, L500.2500, L100.0100, L501.5200 #### [facility] [address] [place], [address] Laboratory - Chemistry and C hemistry - challengeOrdered By: Priscilla Reynaga on 07-09-2024 AST [Catalytic activity/Vol] 11 U/L Low 15-37 [facility] Lactic Acidon 07-09-2024 Lactate [Moles/Vol] 1.4 mmol/L Normal 0.4-1.9 [facility] Comment on above: Order Comment: 206 Performed By: #### L 501.8100, L500.2500, L100.0100, L501.5200 #### [facility] [address] [place], [address] Lactic acid measurementOrder ed By: Priscilla Reynaga on 07-09-2024 Lactate [Moles/Vol] 1.4 mmol/L 0.4-2.0 [facility] Microscopic analysis of urin e for red blood cells (RBC)Ordered By: Priscilla Reynaga on 07-09-2024 Microscopic analysis of urine for red blood cells (RBC) 0-5 SEEN /hpf 0-5 [facility] Urine RBC 0-5 SEEN /hpf 0-5 [facility] Mucus LM Ql (Urine sed)Order ed By: Priscilla Reynaga on 07-09-2024 Mucus Ql (Urine sed) 1+ /hpf [facility] Nitrite Test strip Ql (U)Ord ered By: Priscilla Reynaga on 07-09-2024 Nitrite Ql (U) Negative Negative [facility] Pathologist review Ramses (Unsp spec) [Interp]Ordered By: Priscilla Reynaga on 07-09-2024 Differential Pathologist's Review Reviewed [facility] Comment on above: Previous reported re sult: May cherelle Edited by: SONDRA on 07/10/24:1444Neutrophilic leukocytosis.Clinical correlation necessary.Sreekanth Zhou M.D. 07/10/24 AMENDED REPORT 07/10/24 1444 PATH REV previously reported as: Arlene villarreal Protein Test strip Ql (U)Ord ered By: Priscilla Reynaga on 07-09-2024 Protein Ql (U) 100 mg/dl High Negative [facility] Review by pathologistOrdered By: Priscilla Reynaga on 07-09-2024 Pathologist review Ramses (Unsp spec) [Interp] Reviewed [facility] Comment on above: Previous reported re sult: Arlene villarreal Edited by: SONDRA on 07/10/24:1444Neutrophilic leukocytosis.Clinical correlation necessary.Sreekanth Zhou M.D. 07/10/24 AMENDED REPORT 07/10/24 1444 PATH REV previously reported as: Arlene villarreal Serum globulin measurementOr dered By: Priscilla Reynaga on 07-09-2024 Globulin (S) [Mass/Vol] 4.4 g/dL High 2.2-4.2 [facility] Serum or plasma alanine chatterjee otransferase (ALT) measurementOrdered By: Priscilla Reynaga on 07-09-2024 ALT [Catalytic activity/Vol] 16 U/L 16-61 [facility] Serum or plasma albumin rosalina urement (mass/volume)Ordered By: Priscilla Reynaga on 07-09-2024 Albumin [Mass/Vol] 2.9 g/dL Low 3.2-5.0 [facility] Serum or plasma alkaline elvis sphatase measurementOrdered By: Priscillarobert Reynaga on 07-09-2024 ALP [Catalytic activity/Vol] 68 U/L 45-117 [facility] Serum or plasma uric acid me asurement (mass/volume)Ordered By: Yann Ascencio on 07-09-2024 Urate [Mass/Vol] 7.5 mg/dL High 3.5-7.2 [facility] Comment on above: The drugs N-Acetylcy steine and Metamizole may falsely depress this assay. Squamous epithelial cells de tection in urine sediment by light microscopyOrdered By: Priscilla Reynaga on 07-09-2024 Epithelial cells.squamous LM Ql (Urine sed) 0 SEEN /hpf 0-5 [facility] Total proteinOrdered By: Taj robert Reynaga on 07-09-2024 Protein [Mass/Vol] 7.3 g/dL 6.4-8.2 [facility] Troponin IOrdered By: Yann gandara on 07-09-2024 Troponin I 18 pg/mL 3.0-78.0 [facility] Comment on above: Please Note: New Yudith t Units and Gender Specific Reference Ranges. For more information see Policy Stat Procedure [place] High Sensitivity Troponin (TNIH) and attachments. Troponin I High Sensitivity 18 pg/mL 3.0-78.0 [facility] Comment on above: Please Note: New Yudith t Units and Gender Specific Reference Ranges. For more information see Policy Stat Procedure [place] High Sensitivity Troponin (TNIH) and attachments. Uric Acidon 07-09-2024 URIC 7.5 mg/dL High 3.5-7.2 [facility] Comment on above: Result Comment: The drugs N-Acetylcysteine and Metamizole may falsely depress this assay. Performed By: #### L 400.0001 #### [facility] [address] [place], [place], [id number] Urinalysis, Completeon 07-09 CAST,WBC 0-5 SEEN Normal None Seen [facility] Comment on above: Order Comment: COLLE CTOR TO SPECIFY Performed By: #### L 400.0001 #### [facility] [address] [place], [address] CAST,FINE GRAN 0-5 SEEN Normal 0-5 [facility] Comment on above: Order Comment: TORI CTOR TO SPECIFY Performed By: #### L 400.0001 #### [facility] [address] [place] [place], [address] CAST,HYALINE 5-10 SEEN Normal 0-5 [facility] Comment on above: Order Comment: TORI CTOR TO SPECIFY Performed By: #### L 400.0001 #### [facility] [address] [place], [address] EPI,RENAL 0-5 SEEN Normal 0-5 [facility] Comment on above: Order Comment: TORI CTOR TO SPECIFY Performed By: #### L 400.0001 #### [facility] [address] [place], [address] Mucus Ql (Urine sed) 1+ /hpf Normal [facility] Comment on above: Order Comment: TORI CTOR TO SPECIFY Performed By: #### L 400.0001 #### [facility] [address] [place], [address] RBC 0-5 SEEN Normal 0-5 [facility] Comment on above: Order Comment: TORI CTOR TO SPECIFY Performed By: #### L 400.0001 #### [facility] [address] [place], [address] WBC 0-5 SEEN Normal 0-5 [facility] Comment on above: Order Comment: TORI CTOR TO SPECIFY Performed By: #### L 400.0001 #### [facility] [address] [place], [address] BACTERIA 0 SEEN Normal None Seen [facility] Comment on above: Order Comment: TORI CTOR TO SPECIFY Performed By: #### L 400.0001 #### [facility] [address] [place], [address] EPI,SQUAMOUS 0 SEEN Normal 0-5 [facility] Comment on above: Order Comment: TORI CTOR TO SPECIFY Performed By: #### L 400.0001 #### [facility] [address] [place], [address] Urine blood detectionOrdered By: Priscilla Reynaga on 07-09-2024 Urine Occult Blood 10 /ul High Negative [facility] Urine clarityOrdered By: Taj Reynaga on 07-09-2024 Clarity (U) Clear Clear [facility] Urine color determinationOrd ered By: Priscilla Reynaga on 07-09-2024 Color (U) Yellow Yellow [facility] Urine glucose detectionOrder ed By: Priscilla Reynaga on 07-09-2024 Glucose Ql (U) Normal mg/dl Normal [facility] Urine leukocyte esterase det ection by dipstickOrdered By: Priscilla Reynaga on 07-09-2024 Leukocyte esterase Test strip Ql (U) 25 /ul High Negative [facility] Urine pHOrdered By: Priscilla Wynn outhern on 07-09-2024 pH (U) 6.0 [pH] 5.0 - 8.0 [facility] Urine sediment bacteria coun t by microscopy (number/high power field)Ordered By: Priscilla Reynaga on 07-09-2024 Bacteria LM.HPF (Urine sed) [#/Area] 0 /[HPF] None Seen [facility] Urine sediment fine granular cast count by microscopy (number/low power field)Ordered By: Priscilla Reynaga on 07-09-2024 Fine Granular Casts LM.LPF (Urine sed) [#/Area] 0-5 SEEN /lpf 0-5 [facility] Urine sediment leukocyte yanira t count by microscopy (number/low power field)Ordered By: Priscilla Reynaga on 07-09-2024 WBC casts LM.LPF (Urine sed) [#/Area] 0-5 SEEN /lpf None Seen [facility] Urine sediment renal epithel ial cell count by microscopy (number/high power field)Ordered By: Priscilla Reynaga on 07-09-2024 Epithelial cells.renal LM.HPF (Urine sed) [#/Area] 0 /[HPF] 0-5 [facility] Urine specific gravity measu rementOrdered By: Priscilla Reynaga on 07-09-2024 Specific gravity (U) [Rel density] 1.020 1.002-1.030 [facility] Urine urobilinogen measureme ntOrdered By: Priscilla Reynaga on 07-09-2024 Urobilinogen Ql (U) 1 mg/dl High Normal [facility] Urobilinogen Ql (U)Ordered B y: Priscilla Reynaga on 07-09-2024 Urobilinogen (U) [Mass/Vol] 1 mg/dL High Normal [facility] Venous Duplex US - Noam Extre mon 07-09-2024 Venous Duplex US - Noam Extrem [facility] [address] [place] [address] Venous Duplex US - Noam Extrem 07/09/24 1014 MR#: [id number] Acct: [id number] Name: REINA SULLIVAN Rep #: [id number] : 1955 69 From: Yann Miller MD [...] Date Dictated: 07/09/24 1014 Date Transcribed: 07/10/241555 Investigation Specialist: Signed Normal [facility] WBC casts LM.LPF (Urine sed) [#/Area]Ordered By: Priscilla Reynaga on 07-09-2024 Urine White Blood Cell Casts 0-5 SEEN /lpf None Seen [facility] White blood cell countOrdere d By: Priscilla Reynaga on 07-09-2024 Urine WBC 0-5 SEEN /hpf 0-5 [facility] White blood cell count 0-5 SEEN /hpf 0-5 [facility] CNPNon 06-26-2024 CNPN Telephone ([facility]) REINA SULLIVAN ([id number]) 1955 M Date Time Provider Department 06/26/24 [...] unspecified na*09/30/2022 Left atrial enlargement [I51.7] 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 06/16/24 telephone encounter routed to [facility] for back, neck, and spine pool again for scheduling consultation with orthopaedic lactation specialist. Felicita Bolden MA 06/25/2024 11:52 AM [...] unspecified na*09/30/2022 Left atrial enlargement [I51.7] 09/30/2022 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 of 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 *09/30/2022 Migraine [...] Status:Closed by FELICITA BOLDEN on 06/25/24 Normal [facility] ALBUMIN/CREATININE RATIO, UR INEon 06-22-2024 Albumin DL <= 20 mg/L (U) [Mass/Vol] 223.9 mg/L Normal [facility] Comment on above: Order Comment: Speci men Type: URINE SPECIMENOrdering Facility: [facility] Address: [address] [place] [address] Performed By: #### U ACR ####[facility] LABCLIA [id number] [place] [address] [place] Albumin/Creatinine (U) [Mass ratio] 262 mg/g High <30 [facility] Comment on above: Order Comment: Speci men Type: URINE SPECIMENOrdering Facility: [facility] Address: [address] [place] [address] Result Comment: Adul t Male and Female Nephrotic Criteria: <30 mg/g is considered normal to mildly increased 30-300 mg/g is considered moderately increased >300 mg/g is considered severely increased KDIGO. (2013). KDIGO 2012 Clinical Practice Guideline for the Evaluation and Management of Chronic Kidney Disease. Official Journal of the International Society of Nephrology, 3(1), 1-150. Performed By: #### U ACR ####[facility] LABCL[facility] [id number] [place] [address] [place] Creatinine (U) [Mass/Vol] 85.6 mg/dL Normal 20.0-300.0 [facility] Comment on above: Order Comment: Speci men Type: URINE SPECIMENOrdering Facility: [facility] Address: [address] [place] [address] Performed By: #### U ACR ####[facility]CL[facility] [id number] [place] [address] [place] CBC W Auto Differential pane l (Bld)on 06-22-2024 Basophils (Bld) [#/Vol] 0.09 10*3/uL Normal <0.11 [facility] Comment on above: Order Comment: Speci men Type: BLOOD SPECIMENOrdering Facility: [facility] Address: [address] [place] [address] Performed By: #### 5 7021-8 ####[facility] LABCLIA [id number] [place] [address] [place] Basophils/100 WBC (Bld) 0.8 % Normal [facility] Comment on above: Order Comment: Speci men Type: BLOOD SPECIMENOrdering Facility: [facility] Address: [address] [place] [address] Performed By: #### 5 7021-8 ####[facility]CL[facility] [id number] [address] [place] Differential cell count method Nom (Bld) Auto Normal [facility] Comment on above: Order Comment: Speci men Type: BLOOD SPECIMENOrdering Facility: [facility] Address: [address] [place] [address] Performed By: #### 5 7021-8 ####[facility]CLIA [id number] [place] [address] [place] Eosinophils (Bld) [#/Vol] 0.07 10*3/uL Normal <0.46 [facility] Comment on above: Order Comment: Speci men Type: BLOOD SPECIMENOrdering Facility: [facility] Address: [address] [place] [address] Performed By: #### 5 7021-8 ####[facility] LABCLIA [id number] [place] [address] [place] Eosinophils/100 WBC (Bld) 0.7 % Normal [facility] Comment on above: Order Comment: Speci men Type: BLOOD SPECIMENOrdering Facility: [facility] Address: [address] [place] [address] Performed By: #### 5 7021-8 ####[facility] LABIA [id number] [place] [address] [place] Erythrocyte distribution width (RBC) [Ratio] 13.5 % Normal 11.5-15.0 [facility] Comment on above: Order Comment: Speci men Type: BLOOD SPECIMENOrdering Facility: [facility] Address: [address] [place] [address] Performed By: #### 5 7021-8 ####[facility] LABIA [id number] [place] [address] [place] Hematocrit (Bld) [Volume fraction] 45.6 % Normal 39.0-51.0 [facility] Comment on above: Order Comment: Speci men Type: BLOOD SPECIMENOrdering Facility: [facility] Address: [address] [place] [address] Performed By: #### 5 7021-8 ####[facility] LABCLIA [id number] [place] [address] [place] Hemoglobin (Bld) [Mass/Vol] 14.9 g/dL Normal 13.0-17.0 [facility] Comment on above: Order Comment: Speci men Type: BLOOD SPECIMENOrdering Facility: [facility] Address: [address] [place] [address] Performed By: #### 5 7021-8 ####[facility] LABCLIA [id number] [place] [address] [place] Immature granulocytes (Bld) [#/Vol] 0.13 10*3/uL High <0.10 [facility] Comment on above: Order Comment: Speci men Type: BLOOD SPECIMENOrdering Facility: [facility] Address: [address] [place] [address] Performed By: #### 5 7021-8 ####[facility] LABCLIA [id number] [place] [address] [place] Immature granulocytes/100 WBC (Bld) 1.2 % Normal [facility] Comment on above: Order Comment: Speci men Type: BLOOD SPECIMENOrdering Facility: [facility] Address: [address] [place] [address] Performed By: #### 5 7021-8 ####[facility] LABCLIA [id number] [place] [address] [place] Lymphocytes (Bld) [#/Vol] 1.87 10*3/uL Normal 1.00-4.00 [facility] Comment on above: Order Comment: Speci men Type: BLOOD SPECIMENOrdering Facility: [facility] Address: [address] [place] [address] Performed By: #### 5 7021-8 ####[facility] LABCLIA [id number] [place] [address] [place] Lymphocytes/100 WBC (Bld) 17.4 % Normal [facility] Comment on above: Order Comment: Speci men Type: BLOOD SPECIMENOrdering Facility: [facility] Address: [address] [place] [address] Performed By: #### 5 7021-8 ####[facility] LABIA [id number] [place] [address] [place] MCH (RBC) [Entitic mass] 30.8 pg Normal 26.0-34.0 [facility] Comment on above: Order Comment: Speci men Type: BLOOD SPECIMENOrdering Facility: [facility] Address: [address] [place] [address] Performed By: #### 5 7021-8 ####[facility] LABIA [id number] [place] [address] [place] MCHC (RBC) [Mass/Vol] 32.7 g/dL Normal 30.5-36.0 [facility] Comment on above: Order Comment: Speci men Type: BLOOD SPECIMENOrdering Facility: [facility] Address: [address] [place] [address] Performed By: #### 5 7021-8 ####[facility] [id number] [place] [address] [place] MCV (RBC) [Entitic vol] 94.2 fL Normal 80.0-100.0 [facility] Comment on above: Order Comment: Speci men Type: BLOOD SPECIMENOrdering Facility: [facility] Address: [address] [place] [address] Performed By: #### 5 7021-8 ####[facility] [id number] [place] [address] [place] Monocytes (Bld) [#/Vol] 0.96 10*3/uL High <0.87 [facility] Comment on above: Order Comment: Speci men Type: BLOOD SPECIMENOrdering Facility: [facility] Address: [address] [place] [address] Performed By: #### 5 7021-8 ####[facility] [id number] [place] [address] [place] Monocytes/100 WBC (Bld) 8.9 % Normal [facility] Comment on above: Order Comment: Speci men Type: BLOOD SPECIMENOrdering Facility: [facility] Address: [address] [place] [address] Performed By: #### 5 7021-8 ####[facility] LABCLIA [id number] [place] [address] [place] Neutrophils (Bld) [#/Vol] 7.61 10*3/uL High 1.45-7.50 [facility] Comment on above: Order Comment: Speci men Type: BLOOD SPECIMENOrdering Facility: [facility] Address: [address] [place] [address] Performed By: #### 5 7021-8 ####[facility] LABCLIA [id number] [place] [address] [place] Neutrophils/100 WBC (Bld) 71.0 % Normal [facility] Comment on above: Order Comment: Speci men Type: BLOOD SPECIMENOrdering Facility: [facility] Address: [address] [place] [address] Performed By: #### 5 7021-8 ####[facility] LABCLIA [id number] [place] [address] [place] Nucleated RBC (Bld) [#/Vol] 10*3/uL Normal <0.01 [facility] Comment on above: Order Comment: Speci men Type: BLOOD SPECIMENOrdering Facility: [facility] Address: [address] [place] [address] Performed By: #### 5 7021-8 ####[facility] LABCLIA [id number] [place] [address] [place] Nucleated RBC/100 WBC (Bld) [Ratio] 0.0 /100 WBC Normal [facility] Comment on above: Order Comment: Speci men Type: BLOOD SPECIMENOrdering Facility: [facility] Address: [address] [place] [address] Performed By: #### 5 7021-8 ####[facility] LABCLIA [id number] [place] [address] [place] Platelet mean volume (Bld) [Entitic vol] 10.8 fL Normal 9.0-12.7 [facility] Comment on above: Order Comment: Speci men Type: BLOOD SPECIMENOrdering Facility: [facility] Address: [address] [place] [address] Performed By: #### 5 7021-8 ####[facility] LABCLIA [id number] [place] [address] [place] Platelets (Bld) [#/Vol] 422 10*3/uL High 150-400 [facility] Comment on above: Order Comment: Speci men Type: BLOOD SPECIMENOrdering Facility: [facility] Address: [address] [place] [address] Performed By: #### 5 7021-8 ####[facility] LABIA [id number] [place] [address] [place] RBC (Bld) [#/Vol] 4.84 10*6/uL Normal 4.20-6.[address] [facility] Comment on above: Order Comment: Speci men Type: BLOOD SPECIMENOrdering Facility: [facility] Address: [address] [place] [address] Performed By: #### 5 7021-8 ####[facility]CLIA [id number] [place] [address] [place] WBC (Bld) [#/Vol] 10.73 10*3/uL Normal 3.70-11.00 [facility] Comment on above: Order Comment: Speci men Type: BLOOD SPECIMENOrdering Facility: [facility] Address: [address] [place] [address] Performed By: #### 5 7021-8 ####[facility] LABCLIA [id number] [place] [id number] [facility] CNOVon 06-22-2024 CNOV Office Visit (FAMPWS ) REINA SULLIVAN ([id number]) 1955 M Date Time Provider Department 06/22/24 1:20 PM [facility] During your visit today, we recorded the following information about you: Temperature Pulse Blood pressure 97.8 degrees 88/minute 118/76 Florinda Stevenson, LEAD GENERATION SPECIALIST.FEDERAL LAW CLERK 06/22/2024 2:00 PM Signed This is a [...] HISTORY Diagnosis Date Atrial fibrillation ([facility]) Dr. 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 Huston TBI (traumatic brain injury) ([facility]) 2 times PAST SURGICAL HISTORY Procedure Laterality [...] long-term current use of insulin ([facility]) - ICD9: 250.00, ICD10: E11.9 (primary diagnosis) [...] x da (more content not included)... Normal [facility] 06-22-2024 [facility] ([id number]) 1955 M Date Time Provider Department 06/22/24 ARIC ZAPIEN [facility] During your visit today, we recorded the following information about you: Rebecca Dumas RN 06/22/2024 4:39 PM Signed Asking for provider to clarify pt's order for [facility]. Does patient need to see a surgeon? Please advise so that [facility] staff can schedule patient appropriately. BROOKLYN Malone Jacqueline A, APRN.[facility] 06/22/2024 5:04 PM Signed Yes. An orthopedic lactation specialist. 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 *09/30/2022 Migraine [...] Status:Closed by FELICITA BOLDEN on 06/22/24 Normal [facility] Comprehensive metabolic 2000 panelon 06-22-2024 Albumin [Mass/Vol] 4.2 g/dL Normal 3.9-4.9 [facility] Comment on above: Order Comment: Lynn paez Type: BLOOD SPECIMENOrdering Facility: [facility] Address: [address] [place] [address] Performed By: #### 2 4323-8, 61340-7, LIPNF, 2276-4 ####[facility] LABCLIA [id number] [place] [address] [place] ALP [Catalytic activity/Vol] 124 U/L High 38-113 [facility] Comment on above: Order Comment: Lynn paez Type: BLOOD SPECIMENOrdering Facility: [facility] Address: [address] [place] [address] Performed By: #### 2 4323-8, 03700-7, LIPNF, 6-4 ####[facility] LABCLIA [id number] [place] [address] [place] ALT [Catalytic activity/Vol] 19 U/L Normal 10-54 [facility] Comment on above: Order Comment: Speci men Type: BLOOD SPECIMENOrdering Facility: [facility] Address: [address] [place] [address] Performed By: #### 2 4323-8, 52979-7, LIPNF, 6-4 ####[facility] LABIA [id number] [place] [address] [place] Anion gap [Moles/Vol] 15 mmol/L Normal 8-15 [facility] Comment on above: Order Comment: Speci men Type: BLOOD SPECIMENOrdering Facility: [facility] Address: [address] [place] [address] Performed By: #### 2 4323-8, 28713-8, LIPNF, 6-4 ####[facility] LABIA [id number] [place] [address] [place] AST [Catalytic activity/Vol] 19 U/L Normal 14-40 [facility] Comment on above: Order Comment: Speci men Type: BLOOD SPECIMENOrdering Facility: [facility] Address: [address] [place] [address] Performed By: #### 2 4323-8, 98551-0, LIPNF, 2276-4 ####[facility] LABIA [id number] [place] [address] [place] Bilirubin [Mass/Vol] 0.7 mg/dL Normal 0.2-1.3 [facility] Comment on above: Order Comment: Speci men Type: BLOOD SPECIMENOrdering Facility: [facility] Address: [address] [place] [address] Performed By: #### 2 4323-8, 89597-6, LIPNF, 2276-4 ####[facility] LABCLIA [id number] [address] [address] [place] Calcium [Mass/Vol] 9.2 mg/dL Normal 8.5-10.2 [facility] Comment on above: Order Comment: Speci men Type: BLOOD SPECIMENOrdering Facility: [facility] Address: [address] [place] [address] Performed By: #### 2 4323-8, 89384-2, LIPNF, 2276-4 ####[facility] LABIA [id number] [place] [address] [place] Chloride [Moles/Vol] 102 mmol/L Normal 98-107 [facility] [place] Comment on above: Order Comment: Speci men Type: BLOOD SPECIMENOrdering Facility: [facility] Address: [address] [place] [address] Performed By: #### 2 4323-8, 05948-2, LIPNF, 2276-4 ####[facility] LABIA [id number] [place] [address] [place] CO2 [Moles/Vol] 23 mmol/L Normal 22-30 [facility] Comment on above: Order Comment: Speci men Type: BLOOD SPECIMENOrdering Facility: [facility] Address: [address] [place] [address] Performed By: #### 2 4323-8, 58292-7, LIPNF, 2276-4 ####[facility] LABIA [id number] [place] [id number] [place] Creatinine [Mass/Vol] 1.42 mg/dL High 0.73-1.22 [facility] Comment on above: Order Comment: Speci men Type: BLOOD SPECIMENOrdering Facility: [facility] Address: [address] [place] [address] Performed By: #### 2 4323-8, 89915-8, LIPYAMILET, 2276-4 ####[facility] LABIA [id number] [place] [address] [place] Creatinine and Glomerular filtration rate.predicted panel (S/P/Bld) 54 mL/min/1.73m??? Low >=60 [facility] Comment on above: Order Comment: Lynn paez Type: BLOOD SPECIMENOrdering Facility: [facility] Address: [address] [place] [address] Result Comment: Tatiana mated Glomerular Filtration Rate [...] actual GFR. Performed By: #### 2 4323-8, 58125-3, ANA, 2276-4 ####[facility] LABIA [id number] [place] [address] [place] Glucose [Mass/Vol] 86 mg/dL Normal 74-99 [facility] Comment on above: Order Comment: Lynn paez Type: BLOOD SPECIMENOrdering Facility: [facility] Address: [address] [place] [address] Result Comment: The [place] Diabetes Association (ADA) provides guidance for cutoff [...] Standards of Medical Care in Diabetes 2016, [place] Diabetes Association. Diabetes Care. 2016.39(Suppl 1). Performed By: #### 2 4323-8, 12235-0, LIPNF, 2276-4 ####[facility] LABCLIA [id number] [address] [address] [place] Potassium [Moles/Vol] 4.2 mmol/L Normal 3.7-5.1 [facility] Comment on above: Order Comment: Speci men Type: BLOOD SPECIMENOrdering Facility: [facility] Address: [address] [place] [address] Performed By: #### 2 4323-8, 04035-6, LIPNF, 6-4 ####[facility] LABCLIA [id number] [place] [address] [place] Protein [Mass/Vol] 7.1 g/dL Normal 6.3-8.0 [facility] Comment on above: Order Comment: Speci men Type: BLOOD SPECIMENOrdering Facility: [facility] Address: [address] [place] [address] Performed By: #### 2 4323-8, 82106-2, LIPNF, 6-4 ####[facility] LABCLIA [id number] [place] [address] [place] Sodium [Moles/Vol] 140 mmol/L Normal 136-144 [facility] Comment on above: Order Comment: Speci men Type: BLOOD SPECIMENOrdering Facility: [facility] Address: [address] [place], [place] [address] Performed By: #### 2 4323-8, 88594-5, LIPNF, 2276-4 ####[facility] LABCLIA [id number] [place] [id number] [place] Urea nitrogen [Mass/Vol] 22 mg/dL Normal 9-24 [facility] Comment on above: Order Comment: Speci men Type: BLOOD SPECIMENOrdering Facility: [facility] Address: [address] [place] [address] Performed By: #### 2 4323-8, 01514-3, LIPNF, 2276-4 ####[facility] LABCLIA [id number] [place] [address] [place] Ferritin SerPl-mCncon 2024 Ferritin [Mass/Vol] 142.0 ng/mL Normal 30.3-565.7 [facility] Comment on above: Order Comment: Jacquesi gege Type: BLOOD SPECIMENOrdering Facility: [facility] Address: [address] [place] [address] Performed By: #### 2 4323-8, 24056-6, LIPNF, 2276-4 ####[facility] LABCLIA [id number] [place] [address] [place] HbA1c (Bld)on 06-22-2024 Average glucose Estimated from glycated hemoglobin (Bld) [Mass/Vol] 126 mg/dL Normal [facility] Comment on above: Order Comment: Lynn [facility] Type: BLOOD SPECIMENOrdering Facility: [facility] Address: [address] [place] [address] Result Comment: eAG: (Estimated average glucose) is a calculated value from HgbA1c and is sales representative of the average blood glucose level in the last 2-3 month period. Performed By: #### 5 5454-3 ####[facility] LABCLIA [id number] [place] [address] [place] HbA1c (Bld) [Mass fraction] 6.0 % High 4.3-5.6 [facility] Comment on above: Order Comment: Lynn [facility] Type: BLOOD SPECIMENOrdering Facility: [facility] Address: [address] [place] [address] Result Comment: Amer ican Diabetes Association guidelines indicate that patients with HgbA1c in the range 5.7-6.4% are at increased risk for development of diabetes, and intervention by lifestyle modification may be beneficial. HgbA1c greater or equal to 6.5% is considered diagnostic of diabetes. Performed By: #### 5 5454-3 ####[facility] LABCLIA [id number] [address] [address] [place] Iron and Iron binding capaci ty panelon 06-22-2024 Iron [Mass/Vol] 76 ug/dL Normal 41-186 [facility] Comment on above: Order Comment: Speci men Type: BLOOD SPECIMENOrdering Facility: [facility] Address: [address] [place] [address] Performed By: #### 2 4323-8, 96589-9, LIPNF, 6-4 ####[facility]IA [id number] [place] [address] [place] Iron binding capacity [Mass/Vol] 345 ug/dL Normal 232-386 [facility] Comment on above: Order Comment: Speci men Type: BLOOD SPECIMENOrdering Facility: [facility] Address: [address] [place] [address] Performed By: #### 2 4323-8, 09933-6, LIPNF, 6-4 ####[facility]IA [id number] [place] [address] [place] Iron/TIBC [Molar ratio] 22.0 % Normal 15.0-57.0 [facility] Comment on above: Order Comment: Speci men Type: BLOOD SPECIMENOrdering Facility: [facility] Address: [address] [place] [address] Performed By: #### 2 4323-8, 80358-0, LIPNF, 6-4 ####[facility] LABIA [id number] [place] [id number] [place] LIPID PANEL, NONFASTINGon Cholesterol [Mass/Vol] 149 mg/dL Normal <200 [facility] Comment on above: Order Comment: Speci men Type: BLOOD SPECIMENOrdering Facility: [facility] Address: [address] [place] [address] Result Comment: <200 mg/dL, Desirable 200-239 mg/dL, Borderline high >239 mg/dL, High Performed By: #### 2 4323-8, 36309-7, LIPNF, 6-4 ####[facility] LABCLIA [id number] [place] [address] [place] HDL CHOLESTEROL, NF 41 mg/dL Normal >[address] [facility] Comment on above: Order Comment: Speci men Type: BLOOD SPECIMENOrdering Facility: [facility] Address: [address] [place] [address] Result Comment: 40-5 9 mg/dL, Acceptable >59 mg/dL, High: Negative risk factor for coronary heart disease <40 mg/dL, Low: Positive risk factor for coronary heart disease Performed By: #### 2 4323-8, 69762-6, LIPNF, 2275-4 ####[facility] LABCLIA [id number] [address] [place] LDL CHOLESTEROL, NF 88 mg/dL Normal <[address] [facility] Comment on above: Order Comment: Speci men Type: BLOOD SPECIMENOrdering Facility: [facility] Address: [address] [place] [address] Result Comment: <100 mg/dL, Optimal 100-129 mg/dL, Near optimal/above optimal 130-159 mg/dL, Borderline high 160-189 mg/dL, High >189 mg/dL, Very high Secondary prevention optimal LDL Cholesterol levels are recommended to be < 70 mg/dL Performed By: #### 2 4323-8, 92940-5, LIPNF, 2275-4 ####[facility] LABCLIA [id number] [address] [place] LDL/HDL RATIO, NF 2.15 mg/dL Normal <2.54 [facility] Comment on above: Order Comment: Speci men Type: BLOOD SPECIMENOrdering Facility: [facility] Address: [address] [place] [address] Result Comment: Refe rence: 1. National Cholesterol Education Program ATP III Guideline At-A-Glance Quick Desk Reference: National Heart, Lung, and Blood [place]. National Institutes of Health. 2001: NIH Publication No. 01-3305. 2. An International Atherosclerosis Society position paper: global recommendations for the management of dyslipidemia: executive summary, Atherosclerosis. 2014: 232(2):410-413. Performed By: #### 2 4323-8, 76694-2, LIPNF, 6-4 ####[facility] LABCLIA [id number] [place] [address] [place] NON HDL CHOL, NF 108 mg/dL Normal <130 [facility] Comment on above: Order Comment: Speci men Type: BLOOD SPECIMENOrdering Facility: [facility] Address: [address] [place] [address] Result Comment: <130 mg/dL, Optimal 130-159 mg/dL, Near optimal/above optimal 160-189 mg/dL, Borderline high 190-219 mg/dL, High >219 mg/dL, Very high Secondary prevention optimal non HDL Cholesterol levels are recommended to be <100 mg/dL Performed By: #### 2 4323-8, 19460-2, LIPNF, 2275-4 ####[facility]IA [id number] [place] [address] [place] T CHOL/HDL RATIO NF 3.63 mg/dL Normal <5.[address] [facility] Comment on above: Order Comment: Lynn paez Type: BLOOD SPECIMENOrdering Facility: [facility] Address: [address] [place] [address] Performed By: #### 2 4323-8, 79240-8, LIPNF, 2275-4 ####[facility] LABCLIA [id number] [place] [address] [place] TRIGLYCERIDES, NF 99 mg/dL Normal <150 [facility] Comment on above: Order Comment: Lynn men Type: BLOOD SPECIMENOrdering Facility: [facility] Address: [address] [place] [address] Result Comment: <150 mg/dL, Normal 150-199 mg/dL, Borderline high 200-499 mg/dL, High >499 mg/dL, Very high Performed By: #### 2 4323-8, 41171-7, LIPNF, 2276-4 ####[facility] LABCLIA [id number] [place] [address] [place] VLDL CHOLESTEROL, NF 20 mg/dL Normal <30 [facility] Comment on above: Order Comment: Speci men Type: BLOOD SPECIMENOrdering Facility: [facility] Address: [address] [place] [address] Performed By: #### 2 4323-8, 05531-1, LIPNF, 6-4 ####[facility] LABCLIA [id number] [place] [address] [place] Magnesium SerPl-mCncon 06-22 Magnesium [Mass/Vol] 2.2 mg/dL Normal 1.7-2.3 [facility] Comment on above: Order Comment: Speci men Type: BLOOD SPECIMENOrdering Facility: [facility] Address: [address] [place] [address] Performed By: #### 1 9123-9 ####[facility] LABIA [id number] [place] [address] [place] URINALYSIS, REFLEX MICROSCOP ICon 06-22-2024 Bacteria LM.HPF (Urine sed) [#/Area] Negative Negative /HPF [facility] Bilirubin Ql (U) Negative Negative [facility] Clarity (Unsp spec) Clear Clear [facility] Color (U) Yellow Yellow [facility] Epithelial cells LM.HPF (Urine sed) [#/Area] None Seen /HPF [facility] Glucose Test strip (U) [Mass/Vol] Negative Negative [facility] Hemoglobin Ql (U) Negative Negative [facility] Hyaline casts (Urine sed) [#/Area] 4-10 /LPF Abnormal 0 /LPF [facility] Interpretation and review of laboratory results Abnormal [facility] Ketones Ql (U) Negative Negative [facility] Leukocyte esterase Test strip Ql (U) Negative Negative [facility] Nitrite Ql (U) Negative Negative [facility] pH (U) 6.0 [pH] NINF - 8.5 [facility] Protein (U) [Mass/Vol] 2+ Abnormal Negative [facility] RBC LM.HPF (Urine sed) [#/Area] 0-2 /HPF 0-2 /HPF [facility] Specific gravity (U) [Rel density] 1.012 1.005 - 1.030 [facility] Urobilinogen Ql (U) 0.2 EU/dL 0.2-1.0 EU/dL [facility] WBC LM.HPF (Urine sed) [#/Area] 0-5 /HPF 0-5 /HPF [facility] This test was developed and its performance characteristics determined by [facility]'s [facility]ology [facility] Laboratory [facility] [place] ([facility]). It has not been cleared or approved by the FDA. [facility] is regulated under CLIA as qualified to perform high-complexity testing. This test is used for clinical purposes. It should not be regarded as investigational or for research. [facility] Bacteria LM.HPF (Urine sed) [#/Area] Negative Normal Negative [facility] Comment on above: Order Comment: Speci men Type: URINE SPECIMENOrdering Facility: [facility] Address: [address] [place] [address] Performed By: #### L [id number] ####[facility] LABCLIA [id number] [place] [address] [place] Bilirubin Ql (U) Negative Normal Negative [facility] Comment on above: Order Comment: Speci men Type: URINE SPECIMENOrdering Facility: [facility] Address: [address] [place] [address] Performed By: #### L [id number] ####[facility] LABCLIA [id number] [place] [address] [place] Clarity (Unsp spec) Clear Normal Clear [facility] Comment on above: Order Comment: Speci men Type: URINE SPECIMENOrdering Facility: [facility] Address: [address] [place] [address] Performed By: #### L [id number] ####[facility] LABCLIA [id number] [place] [address] [place] Color (U) Yellow Normal Yellow [facility] Comment on above: Order Comment: Speci men Type: URINE SPECIMENOrdering Facility: [facility] Address: [address] [place] [address] Performed By: #### L [id number] ####[facility] LABCLIA [id number] [place] [address] [place] Epithelial cells LM.HPF (Urine sed) [#/Area] None Seen Normal [facility] Comment on above: Order Comment: Speci men Type: URINE SPECIMENOrdering Facility: [facility] Address: [address] [place] [address] Performed By: #### L [id number] ####[facility] LABCLIA [id number] [place] [address] [place] Glucose Test strip (U) [Mass/Vol] Negative Normal Negative [facility] Comment on above: Order Comment: Speci men Type: URINE SPECIMENOrdering Facility: [facility] Address: [address] [place] [address] Performed By: #### L [id number] ####[facility] LABCLIA [id number] [place] [address] [place] Hemoglobin Ql (U) Negative Normal Negative [facility] Comment on above: Order Comment: Speci men Type: URINE SPECIMENOrdering Facility: [facility] Address: [address] [place] [address] Performed By: #### L [id number] ####[facility]CLIA [id number] [place] [address] [place] Hyaline casts (Urine sed) [#/Area] 4-10 /LPF Abnormal 0 /LPF [facility] Comment on above: Order Comment: Speci men Type: URINE SPECIMENOrdering Facility: [facility] Address: [address] [place] [address] Performed By: #### L [id number] ####[facility] LABCLIA [id number] [place] [address] [place] Ketones Ql (U) Negative Normal Negative [facility] Comment on above: Order Comment: Speci men Type: URINE SPECIMENOrdering Facility: [facility] Address: [address] [place] [address] Performed By: #### L [id number] ####[facility] LABCLIA [id number] [place] [address] [place] Leukocyte esterase Test strip Ql (U) Negative Normal Negative [facility] Comment on above: Order Comment: Speci men Type: URINE SPECIMENOrdering Facility: [facility] Address: [address] [place] [address] Performed By: #### L [id number] ####[facility] LABCLIA [id number] [place] [address] [place] Nitrite Ql (U) Negative Normal Negative [facility] Comment on above: Order Comment: Speci men Type: URINE SPECIMENOrdering Facility: [facility] Address: [address] [place] [address] Performed By: #### L [id number] ####[facility] LABCLIA [id number] [place] [address] [place] pH (U) 6.0 [pH] Normal <8.5 [facility] Comment on above: Order Comment: Speci men Type: URINE SPECIMENOrdering Facility: [facility] Address: [address] [place], [place] [address] Performed By: #### L [id number] ####[facility] LABCLIA [id number] [place] [address] [place] Protein (U) [Mass/Vol] 2+ Abnormal Negative [facility] Comment on above: Order Comment: Speci men Type: URINE SPECIMENOrdering Facility: [facility] Address: [address] [place] [address] Performed By: #### L [id number] ####[facility] [id number] [place] [address] [place] RBC LM.HPF (Urine sed) [#/Area] 0-2 /HPF Normal 0-2 /HPF [facility] Comment on above: Order Comment: Speci men Type: URINE SPECIMENOrdering Facility: [facility] Address: [address] [place] [address] Performed By: #### L [id number] ####[facility] [id number] [place] [address] [place] Specific gravity (U) [Rel density] 1.012 Normal 1.005-1.030 [facility] Comment on above: Order Comment: Speci men Type: URINE SPECIMENOrdering Facility: [facility] Address: [address] [place] [address] Performed By: #### L [id number] ####[facility]IA [id number] [place] [address] [place] Urobilinogen Ql (U) 0.2 EU/dL Normal 0.2-1.0 EU/dL [facility] Comment on above: Order Comment: Speci men Type: URINE SPECIMENOrdering Facility: [facility] Address: [address] [place] [address] Performed By: #### L [id number] ####[facility]IA [id number] [place] [address] [place] WBC LM.HPF (Urine sed) [#/Area] 0-5 /HPF Normal 0-5 /HPF [facility] Comment on above: Order Comment: Speci men Type: URINE SPECIMENOrdering Facility: [facility] Address: [address] [place] [address] Performed By: #### L [id number] ####[facility] [id number] [address] [address] [place] XR LUMBAR [...] spine are presented. FINDINGS: There are five fnh-wjr-gfkjofc lumbar vertebrae. L1 vertebral body compression deformity/age indeterminate fracture is demonstrated, involving the superior endplate.. Questionable L2-3 mild disc space narrowing. There is moderate osteophyte formation, with facet arthrosis in the lower lumbar spine. Kissing spine seen on lateral view. Others: There are vascular calcifications. IMPRESSION L1 vertebral body compression deformity/age indeterminate fracture. Lumbar spine degenerative changes as described above. Investigation Specialist: PSCB Transcribe Date/Time: Jun 22 2024 2:54P Dictated by : BRIAN WILKINSON MD This examination was interpreted and the report reviewed and electronically signed by: BRIAN WILKINSON MD on Jun 22 2024 2:55PM EST [id number] Normal [facility] XR Lumbar spine 3 Viewson * [...] spine are presented. FINDINGS: There are five scf-zlc-ijprfjk lumbar vertebrae. L1 vertebral body compression deformity/age indeterminate fracture is demonstrated, involving the superior endplate.. Questionable L2-3 mild disc space narrowing. There is moderate osteophyte formation, with facet arthrosis in the lower lumbar spine. Kissing spine seen on lateral view. Others: There are vascular calcifications. IMPRESSION L1 vertebral body compression deformity/age indeterminate fracture. Lumbar spine degenerative changes as described above. Investigation Specialist: JOSIAH Transcribe Date/Time: Jun 22 2024 2:54P Dictated by : BRIAN WILKINSON MD This examination was interpreted and the report reviewed and electronically signed by: BRIAN WILKINSON MD on Jun 22 2024 2:55PM EST DIVISION OF RADIOLOGY Provider, [facility] [...] spine are presented. FINDINGS: There are five nmh-hsy-qecqlwk lumbar vertebrae. L1 vertebral body compression deformity/age indeterminate fracture is demonstrated, involving the superior endplate.. Questionable L2-3 mild disc space narrowing. There is moderate osteophyte formation, with facet arthrosis in the lower lumbar spine. Kissing spine seen on lateral view. Others: There are vascular calcifications. IMPRESSION L1 vertebral body compression deformity/age indeterminate fracture. Lumbar spine degenerative changes as described above. Investigation Specialist: [facility]PITALTim Transcribe Date/Time: Jun 22 2024 2:54P Dictated by : BRIAN WILKINSON MD This examination was interpreted and the report reviewed and electronically signed by: BRIAN WILKINSON MD on Jun 22 2024 2:55PM EST [facility] Radiology Study observation (narrative) Kaitlin Perla XR Lumbar spine 3 ViewsOrder ed By: Cc Provider on 06-22-2024 [facility] 06-16-2024 CNPN Telephone (FAMPWS) REINA SULLIVAN ([id number]) 1955 M Date Time Provider Department 06/16/24 ARIC ZAPIEN During your visit today, we recorded the following information about you: Aric Zapien MD 06/16/2024 8:48 AM Signed Schedule to see me at [facility] in person on 06/21/24. Please make sure they are aware appt they scheduled is at that office and not Mel Aric Zapien MD 06/19/2024 10:50 AM Signed Please call before (I suspect was put in wrong place) Felicita Bolden MA 06/19/2024 11:21 AM Signed Please call pt and ask if pt knows he is scheduled at [facility] Florinda Stevenson APRN.FEDERAL LAW CLERK 06/22/2024 3:37 PM Signed Please let patient know that he has a lumbar 1 compression fracture of the endplate. I am going to send him to a spine surgeon to review. Please facilitate primaryscheduling Felicita Bolden MA 06/22/2024 4:29 PM Signed Patient notified of results and transferred to senior power scheduler Mecca Summers 06/22/2024 4:43 PM Signed [...] assist with scheduling consultation with [facility] orthopaedic lactation specialist per 06/22/24 telephone encounter. 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 *09/30/2022 Migraine [...] Encounter Status:Closed by FELICITA BOLDEN on 06/22/24 [facility] 03-21-2024 KVNGN Telephone (ENDOSO) REINA SULLIVAN ([id number]) 1955 M Date Time Provider Department 03/21/24 LU FISH During your visit today, we recorded the following information about you: Vanna Flores 03/21/2024 3:31 PM Signed [place] states that their records show patient has [...] unspecified na*09/30/2022 Left atrial enlargement [I51.7] 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 Halima notes that she helps patient to a certain extent. Halima and Nikkie spoke about [facility] Older Adult Resource Directory. Halima asks that Sw mail patient this guide for him to review and see what services are available in the community. Sw will also attach [facility] Older Adult support program and [facility] information. Allergies As of Date: [...] unspecified na*09/30/2022 Left atrial enlargement [I51.7] 09/30/2022 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 of 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 *09/30/2022 Migraine [...] Status:Closed by HARVEY HAZEL on 11/24/23 Normal [facility] CNOVon 11-22-2023 CNOV Office Visit (FAMPWS ) REINA SULLIVAN ([id number]) 1955 M Date Time Provider Department 11/22/23 [...] daily No seizures. 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 James [place]: cardiac cath: no disease 09/08/[address] [facility] [address] James: - primary rhythm atrial fibrillation [...] Lymph 1.00 - 4.00 k/uL 1.57 2.35 [place]% % 9.8 11.3 Abs [place] <0.87 k/uL 0.66 0.98 (H) Eosin% % [...] long-term cur (more content not included)... Normal [facility] Absolute lymphocyte countOrd ered By: Rakel Hodgson on 06-23-2023 Lymphocytes Auto (Unsp spec) [#/Vol] 2.02 10*3/uL 0.83-4.51 [facility] Automated lymphocyte count a s percentage of total leukocytesOrdered By: Rakel Hodgson on 06-23-2023 Lymphocytes/100 WBC Auto (Unsp spec) 28.9 % 19-41 [facility] Basophil percentageOrdered B y: Rakel Hodgson on 06-23-2023 Basophils/100 WBC (Bld) 0.7 % 0-1 [facility] Chloride [Moles/Vol] 104 mmol/L 98-107 [facility] Eosinophils/100 WBC (Bld) 1.0 % 0-5 [facility] Glucose [Mass/Vol] 99 mg/dL 74-106 [facility] Hemoglobin (Bld) [Mass/Vol] 15.8 g/dL 13.0-16.5 [facility] Monocytes/100 WBC (Bld) 11.7 % 0-10 [facility] Neutrophils (Bld) [#/Vol] 4.0 10*3/uL 2.0-7.7 [facility] Neutrophils/100 WBC (Bld) 57.1 % 47-70 [facility] Potassium [Moles/Vol] 4.2 mmol/L 3.5-5.1 [facility] Sodium [Moles/Vol] 139 mmol/L 136-145 [facility] WBC (Bld) [#/Vol] 7.0 10*3/uL 4.4-11.0 [facility] Determination of erythrocyte mean corpuscular volume (MCV)Ordered By: Rakel Hodgson on 06-23-2023 MCV (RBC) [Entitic vol] 93.6 fL 80-94 [facility] Erythrocyte distribution wid th ratioOrdered By: Rakel Hodgson on 06-23-2023 Erythrocyte distribution width (RBC) [Ratio] 13.0 % 11.6-14.6 [facility] Erythrocyte distribution wid th standard deviationOrdered By: Rakel Hodgson on 06-23-2023 Erythrocyte distribution width (RBC) [Entitic vol] 44.3 fL 35.1-43.9 [facility] Hematocrit Auto (Bld) [Volum e fraction]Ordered By: Rakel Hodgson on 06-23-2023 Hematocrit (Bld) [Volume fraction] 48.6 % 40-54 [facility] Immature granulocytes/100 WB C Auto (Bld)Ordered By: Rakel Hodgson on 06-23-2023 Immature granulocytes/100 WBC (Bld) 0.600 % 0.0-0.9 [facility] Comment on above: IG% - Immature Granu locytes (promyelocytes, myelocytes and metamyelocytes) > 1% indicates that a LEFT SHIFT is Present. Laboratory - Chemistry and C hemistry - challengeOrdered By: Rakel Hodgson on 06-23-2023 CO2 [Moles/Vol] 31.0 mmol/L 21.0-32.0 [facility] Urea nitrogen/Creatinine [Mass ratio] 13.2 mg/mg 10-20 [facility] Laboratory - Hematology and Cell countsOrdered By: Rakel Hodgson on 06-23-2023 MCH (RBC) [Entitic mass] 30.4 pg 27.0-32.0 [facility] MCHC (RBC) [Mass/Vol] 32.5 g/dL 32- [facility] Nucleated RBC/100 WBC (Bld) [Ratio] 0 % 0-5 [facility] Platelets (Bld) [#/Vol] 219 10*3/uL 150-450 [facility] No Panel InformationOrdered By: Rakel Hodgson on 06-23-2023 Estimated GFR (MDRD) Amer 56 mL/min >60 [facility] Comment on above: GFR Calc Estimated GFR (MDRD) Non-Af Amer 47 mL/min >60 [facility] Comment on above: Non- GFR Calc Platelet mean volume Hank-Ec ker (Bld) [Entitic vol]Ordered By: Rakel Hodgson on 06-23-2023 Platelet mean volume (Bld) [Entitic vol] 11.4 fL 6.2-12.0 [facility] RBC Auto (Bld) [#/Vol]Ordere d By: Rakel Hodgson on 06-23-2023 RBC (Bld) [#/Vol] 5.19 10*6/uL 4.6-6.2 [facility] Serum or plasma calcium rosalina urement (mass/volume)Ordered By: Rakel Hodgson on 06-23-2023 Calcium [Mass/Vol] 9.1 mg/dL 8.5-10.1 [facility] Serum or plasma creatinine m easurement (mass/volume)Ordered By: Rakel Hodgson on 06-23-2023 Creatinine [Mass/Vol] 1.59 mg/dL 0.70-1.30 [facility] Comment on above: The validity of the calculated GFR & GFRAA in patients over 70 years has not been determined. Clinical correlation is essential. Serum or plasma urea nitroge n measurement (mass/volume)Ordered By: Rakel Hodgson on 06-23-2023 Urea nitrogen [Mass/Vol] 21 mg/dL 7-18 [facility] Thin prep Papanicolaou smear with manual screeningOrdered By: Rakel Hodgson on 06-23-2023 Thin prep Papanicolaou smear with manual screening 4 5-15 [facility] STREP A MOLECULAR (POC)on Procedural Control Valid [facility] Strep A (POCT) Negative Negative [facility] CBC W Auto Differential pane l (Bld)on 09-30-2022 Basophils (Bld) [#/Vol] 0.04 10*3/uL <0.11 k/uL [facility] Basophils/100 WBC (Bld) 0.6 % [facility] Differential cell count method Nom (Bld) Auto [facility] Eosinophils (Bld) [#/Vol] 0.07 10*3/uL <0.46 k/uL [facility] Eosinophils/100 WBC (Bld) 1.0 % [facility] Erythrocyte distribution width (RBC) [Ratio] 13.6 % 11.5 - 15.0 % [facility] Hematocrit (Bld) [Volume fraction] 43.7 % 39.0 - 51.0 % [facility] Hemoglobin (Bld) [Mass/Vol] 14.2 g/dL 13.0 - 17.0 g/dL [facility] Immature granulocytes (Bld) [#/Vol] <0.10 k/uL [facility] Immature granulocytes/100 WBC (Bld) 0.3 % [facility] Lymphocytes (Bld) [#/Vol] 1.57 10*3/uL 1.00 - 4.00 k/uL [facility] Lymphocytes/100 WBC (Bld) 23.3 % [facility] MCH (RBC) [Entitic mass] 31.1 pg 26.0 - 34.0 pg [facility] MCHC (RBC) [Mass/Vol] 32.5 g/dL 30.5 - 36.0 g/dL [facility] MCV (RBC) [Entitic vol] 95.8 fL 80.0 - 100.0 fL [facility] Monocytes (Bld) [#/Vol] 0.66 10*3/uL <0.87 k/uL [facility] Monocytes/100 WBC (Bld) 9.8 % [facility] Neutrophils (Bld) [#/Vol] 4.37 10*3/uL 1.45 - 7.50 k/uL [facility] Neutrophils/100 WBC (Bld) 65.0 % [facility] Nucleated RBC (Bld) [#/Vol] <0.01 k/uL [facility] Nucleated RBC/100 WBC (Bld) [Ratio] 0.0 /100 WBC [facility] Platelet mean volume (Bld) [Entitic vol] 11.4 fL 9.0 - 12.7 fL [facility] Platelets (Bld) [#/Vol] 246 10*3/uL 150 - 400 k/uL [facility] RBC (Bld) [#/Vol] 4.56 10*6/uL 4.20 - 6.0 0 m/uL [facility] WBC (Bld) [#/Vol] 6.73 10*3/uL 3.70 - 11. 00 k/uL [facility] HbA1c (Bld)on 09-30-2022 Average glucose Estimated from glycated hemoglobin (Bld) [Mass/Vol] 131 mg/dL [facility] HbA1c (Bld) [Mass fraction] 6.2 % High 4.3 - 5.6 % [facility] VALPROIC A/DEPAKENEon 2022 Valproate [Mass/Vol] 70.5 ug/mL 50.0 - 100.0 ug/mL [facility] No Panel Informationon 04-26 [facility] Absolute lymphocyte counton 03-06-2022 Lymphocytes Auto (Unsp spec) [#/Vol] 2.57 10*3/uL 0.83-4.51 [facility] Work Phone: Basophil percentageon 2021 Basophils/100 WBC (Bld) 0.5 % 0-1 [facility] Work Phone: [phone] Chloride [Moles/Vol] 104 mmol/L 98-107 [facility] Work Phone: Eosinophils/100 WBC (Bld) 1.8 % 0-5 [facility] Work Phone: [phone] Glucose [Mass/Vol] 112 mg/dL 74-106 [facility] Work Phone: Comment on above: Fasting Glucose resu lt from 100 to 125 mg/dL suggests IMPAIRED HOMEOSTASIS per A.D.A. criteria. Neutrophils (Bld) [#/Vol] 4.0 10*3/uL 2.0-7.7 [facility] Work Phone: Neutrophils/100 WBC (Bld) 52.2 % 47-70 [facility] Work Phone: [phone] Potassium [Moles/Vol] 3.4 mmol/L 3.5-5.1 [facility] Work Phone: [phone] Sodium [Moles/Vol] 142 mmol/L 136-145 [facility] Work Phone: WBC (Bld) [#/Vol] 7.7 10*3/uL 4.4-11.0 [facility] Work Phone: Blood erythrocytes count (nu mber/volume)on 03-06-2022 RBC (Bld) [#/Vol] 4.57 10*6/uL 4.6-6.2 [facility] Work Phone: Blood hemoglobin measurement (mass/volume)on 03-06-2022 Hemoglobin (Bld) [Mass/Vol] 14.7 g/dL 13.0-16.5 [facility] Work Phone: Blood lymphocytes/100 leukoc yteson 03-06-2022 Lymphocytes/100 WBC (Bld) 33.2 % 19-41 [facility] Work Phone: Blood monocytes/100 leukocyt eson 03-06-2022 Monocytes/100 WBC (Bld) 11.8 % 0-10 [facility] Work Phone: Blood platelet mean volumeon 03-06-2022 Platelet mean volume (Bld) [Entitic vol] 10.3 fL 6.2-12.0 [facility] Work Phone: Determination of erythrocyte mean corpuscular volume (MCV)on 03-06-2022 MCV (RBC) [Entitic vol] 93.7 fL 80-94 [facility] Work Phone: Hematocrit Auto (Bld) [Volum e fraction]on 03-06-2022 Hematocrit (Bld) [Volume fraction] 42.8 % 40-54 [facility] Work Phone: Laboratory - Chemistry and C hemistry - challengeon 03-06-2022 CO2 [Moles/Vol] 28.0 mmol/L 21.0-32.0 [facility] Work Phone: Urea nitrogen/Creatinine [Mass ratio] 19.0 mg/mg 10-20 [facility] Work Phone: Laboratory - Hematology and Cell countson 03-06-2022 Erythrocyte distribution width (RBC) [Entitic vol] 43.5 fL 35.1-43.9 [facility] Work Phone: Erythrocyte distribution width (RBC) [Ratio] 12.7 % 11.6-14.6 [facility] Work Phone: Immature granulocytes/100 WBC (Bld) 0.500 % 0.0-0.9 [facility] Work Phone: Comment on above: IG% - Immature Granu locytes (promyelocytes, myelocytes and metamyelocytes) > 1% indicates that a LEFT SHIFT is Present. MCH (RBC) [Entitic mass] 32.2 pg 27.0-32.0 [facility] Work Phone: Nucleated RBC/100 WBC (Bld) [Ratio] 0 % 0-5 [facility] Work Phone: MCHC Auto (RBC) [Mass/Vol]on 03-06-2022 MCHC (RBC) [Mass/Vol] 34.3 g/dL 32-36 [facility] Work Phone: No Panel Informationon 03-06 Estimated Creatinine Clearance Calc 70.76 ml/min [facility] Work Phone: Estimated GFR (MDRD) Amer 77 mL/min >60 [facility] Work Phone: Comment on above: GFR Calc Estimated GFR (MDRD) Non-Af Amer 64 mL/min >60 [facility] Work Phone: Comment on above: Non- GFR Calc Platelets bldon 03-06-2022 Platelets (Bld) [#/Vol] 230 10*3/uL 150-450 [facility] Work Phone: Serum or plasma calcium rosalina urement (mass/volume)on 03-06-2022 Calcium [Mass/Vol] 9.7 mg/dL 8.5-10.1 [facility] Work Phone: Serum or plasma creatinine m easurement (mass/volume)on 03-06-2022 Creatinine [Mass/Vol] 1.21 mg/dL 0.70-1.30 [facility] Work Phone: Comment on above: The validity of the calculated GFR & GFRAA in patients over 70 years has not been determined. Clinical correlation is essential. Serum or plasma urea nitroge n measurement (mass/volume)on 03-06-2022 Urea nitrogen [Mass/Vol] 23 mg/dL 7-18 [facility] Work Phone: Thin prep Papanicolaou smear with manual screeningon 03-06-2022 Thin prep Papanicolaou smear with manual screening 10 5-15 [facility] Work Phone: No Panel InformationOrdered By: [facility] Provider on 03-12-2021 [facility] No Panel Informationon 03-12 Radiology Study observation (narrative) [facility] XR Ankle - right AP [...] Impression: 1. No acute fracture or dislocation. Investigation Specialist: JOSIAH Transcribe Date/Time: Mar 12 2021 3:19P Dictated by : COURTNEY MART MD This examination was interpreted and the report reviewed and electronically signed by: COURTNEY MART MD on Mar 12 2021 3:22PM [facility] Provider, [facility] [...] Impression: 1. No acute fracture or dislocation. Investigation Specialist: JOSIAH Transcribe Date/Time: Mar 12 2021 3:19P Dictated by : COURTNEY MART MD This examination was interpreted and the report reviewed and electronically signed by: COURTNEY MART MD on Mar 12 2021 3:22PM EST [facility] XR Foot - right AP and [...] Impression: 1. No acute fracture or dislocation. Investigation Specialist: [facility] Transcribe Date/Time: Mar 12 2021 3:19P Dictated by : COURTNEY MART MD This examination was interpreted and the report reviewed and electronically signed by: COURTNEY MART MD on Mar 12 2021 3:22PM [facility] Provider, [facility] 03/12/2021 * * *Final Report* * * [...] Impression: 1. No acute fracture or dislocation. Investigation Specialist: [facility] Transcribe Date/Time: Mar 12 2021 3:19P Dictated by : COURTNEY MART MD This examination was interpreted and the report reviewed and electronically signed by: COURTNEY MART MD on Mar 12 2021 3:22PM EST [facility] VISUAL FIELD 30-2 OU (BOTH E YES) [facility] Vital Signs Date Time Vital Sign Value Performing Clinician Facility 03-08-2025 13:01-0400 Body temperature 98 [degF] Dr. Aric Zapien MD Work Phone: [facility] 03-08-2025 13:01-0400 Diastolic blood pressure 46 mm[Hg] Dr. Aric Zapien MD Work Phone: [facility] 03-08-2025 13:01-0400 Heart rate 90 /min Dr. Aric Zapien MD Work Phone: [facility] 03-08-2025 13:01-0400 Respiratory rate 18 /min Dr. Aric Zapien MD Work Phone: [phone] [place] [address] 03-08-2025 13:01-0400 SaO2% (BldA) [Mass fraction] 98 % Dr. Aric Zapien MD Work Phone: 8(395)[phone] [place] [address] 03-08-2025 13:01-0400 Systolic blood pressure 138 mm[Hg] Dr. Aric Zapien MD Work Phone: 6(057)116-786995 [place] [address] 03-08-2025 11:11-0400 Body height 182.[address] Aric Zapien MD Work Phone: 1(698)093-500295 [place] [address] 03-08-2025 11:11-0400 Body mass index (BMI) [Ratio] 30.9 kg/m2 Dr. Aric Zapien MD Work Phone: 3(895)954-030495 [place] [address] 03-08-2025 11:11-0400 Body weight 103.[address] Aric Zapien MD Work Phone: 5(287)246-300095 [place] [address] 07-11-2024 17:10-0500 Body temperature 97.7 [degF] Dr. Aric Zapien MD Work Phone: 3(220)500-734295 [place] [address] 07-11-2024 17:10-0500 Diastolic blood pressure 88 mm[Hg] Dr. Aric Zapien MD Work Phone: 2(062)795-799595 [place] [address] 07-11-2024 17:10-0500 Heart rate 100 /min Dr. Aric Zapien MD Work Phone: 7(326)530-261795 [place] [address] 07-11-2024 17:10-0500 Respiratory rate 16 /min Dr. Aric Zapien MD Work Phone: 5(456)488-058795 [place] [address] 07-11-2024 17:10-0500 SaO2% (BldA) [Mass fraction] 97 % Dr. Aric Zapien MD Work Phone: 4(714)294-639495 [place] [address] 07-11-2024 17:10-0500 Systolic blood pressure 127 mm[Hg] Dr. Aric Zapien MD Work Phone: 1(611)359-487995 [place] [address] 07-10-2024 10:00-0500 Inhaled oxygen flow rate 2 L/min Dr. Aric Zapien MD Work Phone: [facility] 07-09-2024 15:34-0500 Body height 182.[address] Aric Zapien MD Work Phone: [facility] 07-09-2024 15:34-0500 Body weight 97.[address] Aric Zapien MD Work Phone: [facility] 07-09-2024 11:44-0500 Body mass index (BMI) [Ratio] 29.2 kg/m2 Dr. Aric Zapien MD Work Phone: [facility] 06-22-2024 13:29-0500 Body temperature 97.81 [degF] Florinda Suppan LEAD GENERATION SPECIALIST.FEDERAL LAW CLERK Work Phone: [facility] 06-22-2024 13:29-0500 Diastolic blood pressure 76 mm[Hg] Florinda Suppan LEAD GENERATION SPECIALIST.FEDERAL LAW CLERK Work Phone: [facility] 06-22-2024 13:29-0500 Heart rate 88 /min Florinda Suppan LEAD GENERATION SPECIALIST.FEDERAL LAW CLERK Work Phone: [facility] 06-22-2024 13:29-0500 SaO2% (BldA) [Mass fraction] 99 % Florinda Suppan LEAD GENERATION SPECIALIST.FEDERAL LAW CLERK Work Phone: [facility] 06-22-2024 13:29-0500 Systolic blood pressure 118 mm[Hg] Florinda Suppan LEAD GENERATION SPECIALIST.FEDERAL LAW CLERK Work Phone: [facility] 11-22-2023 15:27-0400 Body mass index (BMI) [Ratio] 30.65 kg/m2 NA Max PA-C Work Phone: [facility] 11-22-2023 15:27-0400 Body weight 102.51 kg NA Max PA-C Work Phone: [facility] 11-22-2023 15:27-0400 Diastolic blood pressure 80 mm[Hg] NA Max PA-C Work Phone: [facility] 11-22-2023 15:27-0400 Heart rate 85 /min NA Max PA-C Work Phone: [facility] 11-22-2023 15:27-0400 Respiratory rate 15 /min NA Max PA-C Work Phone: [facility] 11-22-2023 15:27-0400 SaO2% (BldA) [Mass fraction] 96 % NA Max PA-C Work Phone: [facility] 11-22-2023 15:27-0400 Systolic blood pressure 128 mm[Hg] NA Max PA-C Work Phone: [facility] 06-23-2023 15:04-0500 Body height 187.[address] Aric Zapien Work Phone: [facility] 06-23-2023 15:04-0500 Body mass index (BMI) [Ratio] 28.5 kg/m2 Dr. Aric Zapien Work Phone: 2(190)[phone] [place] [address] 06-23-2023 15:04-0500 Body weight 100.[address] Aric Zapien Work Phone: 3(376)[phone] [place] [address] 06-23-2023 15:04-0500 Diastolic blood pressure 60 mm[Hg] Dr. Aric Zapien Work Phone: [facility] 06-23-2023 15:04-0500 Heart rate 67 /min Dr. Aric Zapien Work Phone: [facility] 06-23-2023 15:04-0500 Respiratory rate 18 /min Dr. Aric Zapien Work Phone: [facility] 06-23-2023 15:04-0500 SaO2% (BldA) [Mass fraction] 97 % Dr. Aric Zapien Work Phone: [facility] 06-23-2023 15:04-0500 Systolic blood pressure 80 mm[Hg] Dr. Aric Zapien Work Phone: [facility] 12-07-2022 13:46-0400 Body temperature 98.4 [degF] Krislyn Aberegg PA Work Phone: [facility] 12-07-2022 13:46-0400 Body weight 101.7 kg Krislyn Aberegg PA Work Phone: [facility] 12-07-2022 13:46-0400 Diastolic blood pressure 76 mm[Hg] Krislyn Aberegg PA Work Phone: [facility] 12-07-2022 13:46-0400 Heart rate 60 /min Krislyn Aberegg PA Work Phone: [facility] 12-07-2022 13:46-0400 Respiratory rate 18 /min Krislyn Aberegg PA Work Phone: [facility] 12-07-2022 13:46-0400 SaO2% (BldA) [Mass fraction] 96 % Krislyn Aberegg PA Work Phone: [facility] 12-07-2022 13:46-0400 Systolic blood pressure 112 mm[Hg] Krislyn Aberegg PA Work Phone: [facility] 09-30-2022 13:13-0400 Body height 182.9 cm Aric Zapien MD Work Phone: [facility] 09-30-2022 13:13-0400 Body weight 103.87 kg Aric Zapien MD Work Phone: [facility] 09-30-2022 13:13-0400 Diastolic blood pressure 100 mm[Hg] Aric Zapien MD Work Phone: [facility] 09-30-2022 13:13-0400 Heart rate 88 /min Aric Zapien MD Work Phone: [facility] 09-30-2022 13:13-0400 SaO2% (BldA) [Mass fraction] 97 % Aric Zapien MD Work Phone: [facility] 09-30-2022 13:13-0400 Systolic blood pressure 152 mm[Hg] Aric Zapien MD Work Phone: [facility] 04-01-2022 10:36-0400 Body weight 99.79 kg Aric Zapien MD Work Phone: [facility] 04-01-2022 10:36-0400 Diastolic blood pressure 62 mm[Hg] Aric Zapien MD Work Phone: [facility] 04-01-2022 10:36-0400 Heart rate 97 /min Aric Zapien MD Work Phone: [facility] 04-01-2022 10:36-0400 SaO2% (BldA) [Mass fraction] 100 % Aric Zapien MD Work Phone: [facility] 04-01-2022 10:36-0400 Systolic blood pressure 102 mm[Hg] Aric Zapien MD Work Phone: [facility] 03-09-2022 15:09-0400 Body height 184 cm NA Max PA-C Work Phone: [facility] 03-09-2022 15:09-0400 Body weight 101.15 kg NA Max PA-C Work Phone: [facility] 03-09-2022 15:09-0400 Diastolic blood pressure 74 mm[Hg] NA Max PA-C Work Phone: [facility] 03-09-2022 15:09-0400 Heart rate 82 /min NA Max PA-C Work Phone: [facility] 03-09-2022 15:09-0400 Respiratory rate 12 /min NA Max PA-C Work Phone: [facility] 03-09-2022 15:09-0400 SaO2% (BldA) [Mass fraction] 98 % NA Max PA-C Work Phone: [facility] 03-09-2022 15:09-0400 Systolic blood pressure 104 mm[Hg] NA Max PA-C Work Phone: [facility] 03-08-2022 15:33-0400 Body weight 99.79 kg Aric Huston Jr., MD Work Phone: [facility] 03-08-2022 15:33-0400 Diastolic blood pressure 72 mm[Hg] Aric Huston Jr., MD Work Phone: [facility] 03-08-2022 15:33-0400 Heart rate 93 /min Aric Huston Jr., MD Work Phone: [facility] 03-08-2022 15:33-0400 Respiratory rate 12 /min Aric Huston Jr., MD Work Phone: [facility] 03-08-2022 15:33-0400 SaO2% (BldA) [Mass fraction] 98 % Aric Huston Jr., MD Work Phone: [facility] 03-08-2022 15:33-0400 Systolic blood pressure 100 mm[Hg] Aric Huston Jr., MD Work Phone: [facility] 03-06-2022 12:58-0400 Diastolic blood pressure 90 mm[Hg] [facility] Work Phone: 03-06-2022 12:58-0400 Heart rate 80 /min [facility] Work Phone: 03-06-2022 12:58-0400 Respiratory rate 16 /min [facility] Work Phone: 03-06-2022 12:58-0400 SaO2% (BldA) [Mass fraction] 98 % [facility] Work Phone: 03-06-2022 12:58-0400 Systolic blood pressure 116 mm[Hg] [facility] Work Phone: 03-06-2022 10:03-0400 Body height 187.96 cm [facility] Work Phone: 03-06-2022 10:03-0400 Body mass index (BMI) [Ratio] 28.9 kg/m2 [facility] Work Phone: 03-06-2022 10:03-0400 Body temperature 97.1 [degF] [facility] Work Phone: 03-06-2022 [phone] Body weight 102.1 kg [facility] Work Phone: 09-24-2021 15:24-0400 Body weight 102.51 kg Aric Zapien MD Work Phone: [facility] 09-24-2021 15:24-0400 Diastolic blood pressure 82 mm[Hg] Aric Zapien MD Work Phone: [facility] 09-24-2021 15:24-0400 Heart rate 88 /min Aric Zapien MD Work Phone: [facility] 09-24-2021 15:24-0400 Systolic blood pressure 122 mm[Hg] Aric Zapien MD Work Phone: [facility] Encounters Encounter Date Encounter Type Care Provider Facility Start: 03-08-2025 End: 03-08-2025 Emergency department patient visit Dr. Liza Cho MD -Emergency Department Work Phone: Start: 01-31-2025 ambulatory Jigna ALMENDAREZ Facili ty:[facility] Start: 01-31-[address] Jigna Brantley MD -[facility] Work Phone: Start: 01-21-2025 End: 01-21-[address] Aric Zapien MD Work Phone: -[facility] Start: 01-21-2025 End: 01-21-[address] Jigna Brantley MD -[facility] Work Phone: Start: 01-21-[address] Jigna Brantley MD -[facility] Work Phone: Start: 01-21-2025 End: 01-21-2025 ambulatory Jigna ALMENDAREZ Facility:[facility] Start: 01-10-2025 ambulatory Jigna ALMENDAREZ Facili ty:[facility] Start: 01-10-[address] Jigna Brantley MD -[facility] Work Phone: Start: 01-02-2025 ambulatory Jignajoe Bernardoa TANESHA Facili ty:[facility] Start: 01-02-[address] Jigna Brantley MD -[facility] Work Phone: Start: 11-27-2024 End: 11-27-[address] Aric Zapien MD Work Phone: -[facility] Start: 11-27-2024 End: 11-27-[address] Jigna Brantley MD -[facility] Work Phone: Start: 11-27-2024 End: 11-27-2024 ambulatory Jignabailey Bernardoa OLS Facility:[facility] Start: 10-31-2024 ambulatory Jignabailey Bernardoa OLS Facili ty:[facility] Start: 10-25-2024 End: 10-25-2024 Telephone encounter Aric Zapien MD Work Phone: [facility] Comment on above: Letter (No show #2) Start: 10-23-2024 ambulatory Jignajoe Bernardoa TANESHA Facili ty:[facility] Start: 09-26-2024 End: 09-26-[address] Aric Zapien MD Work Phone: [facility] Work Phone: Start: 09-26-2024 End: 09-26-[address] Jigna Brantley MD -[facility] Start: 09-26-2024 End: 09-26-2024 ambulatory Jigna Bernardoa TANESHA Facility:[facility] Start: 08-27-2024 End: 08-27-[address] Aric Zapien MD Work Phone: [facility] Work Phone: Start: 08-27-2024 End: 08-27-[address] Jigna Brantley MD -[facility] Start: 08-27-2024 End: 08-27-2024 ambulatory Jigna ALMENDAREZ Facility:[facility] Start: 07-23-2024 ambulatory Aric Zapien Facility:[facility] Start: 07-23-[address] Jigna Brantley MD -[facility] Start: 07-16-2024 End: 08-07-2024 Telephone encounter Aric Zapien MD Work Phone: [facility] Comment on above: Patient Update Start: 07-16-2024 ambulatory Jigna ALMENDAREZ Facili ty:[facility] Start: 07-16-[address] Jigna Brantley MD -[facility] Start: 07-12-2024 ambulatory Jigna ALMENDAREZ Facili ty:[facility] Start: 07-12-[address] Jigna Brantley MD -[facility] Start: 07-11-2024 Non-patient / Non-visit Dr. Yann Katz [facility] Work Phone: Start: 07-10-2024 Non-patient / Non-visit Dr. Yann stevens [facility] Work Phone: Start: 07-10-2024 ambulatory Estuardo Irby Facility:[facility] Start: 07-10-2024 Non-patient / Non-visit Dr. Cynthia Irby MD -[facility] Start: 07-09-2024 End: 07-11-2024 Evaluation and management of inpatient Dr. Yann Ascencio DO -[facility] Work Phone: Start: 07-09-2024 ambulatory Yann Ascencio Facility:[facility] Start: 07-09-2024 Non-patient / Non-visit Dr. Yann Katz [facility] Work Phone: Start: 06-26-2024 End: 06-26-2024 Telephone encounter Damaris Sotelo MD Work Phone: [facility] Start: 06-25-2024 End: 06-25-2024 Telephone encounter Florinda Stevenson APRN.FEDERAL LAW CLERK Work Phone: [facility] [place] Comment on above: Results Start: 06-22-2024 End: 06-22-2024 Telephone encounter Aric Zapien MD Work Phone: [facility] [place] Comment on above: Patient Question Start: 06-22-2024 End: 06-22-2024 Office outpatient visit 15 minutes Florinda Stevenson APRN.FEDERAL LAW CLERK Work Phone: [facility] [place] Comment on above: Type 2 diabetes jorge itus without complication, without long- term current use of insulin (HCC) (Primary Dx); Fall, initial encounter; Screening for lipid disorders; Acute low back pain without sciatica, unspecified back pain laterality Start: 06-22-2024 End: 06-22-2024 ambulatory ARIC ZAPIEN Facility:[facility] Start: 06-16-2024 End: 06-22-2024 Telephone encounter Aric Zapien MD Work Phone: [facility] [place] Comment on above: Patient Update Start: 06-13-2024 End: 06-14-2024 Refill Aric Zapien MD Work Phone: [address] [place] [address] Comment on above: Refill Request Start: 05-28-2024 End: 05-28-2024 ambulatory Mayuri Perez MA [facility] Start: 05-28-2024 End: 05-28-2024 Patient encounter procedure Mayuri Perez MA [facility] Comment on above: Population Health Na vigation Outreach (MCAIP OUTREACH ) Start: 04-18-2024 End: 04-18-2024 ambulatory Edward Pleitez [facility] Work Phone: [facility] Start: 04-18-2024 End: 04-18-2024 Patient encounter procedure Edward Pleitez [facility] Work Phone: [facility] Start: 03-21-2024 End: 03-23-2024 Telephone encounter Lu Fish APRN.FEDERAL LAW CLERK Work Phone: Endocrinology Start: 03-07-2024 End: 03-07-2024 ambulatory Jordy Hernandez MA [facility] Start: 03-07-2024 End: 03-07-2024 Patient encounter procedure Jordy Hernandez MA [facility] Comment on above: Population Health Na vigation Outreach (Jodie Vyas [place] PCSA) Start: 12-15-2023 ambulatory Moshe Freidman MA 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 Aric Zapien Work Phone: [facility] Work Phone: Start: 06-23-2023 End: 06-23-[address] Aric Zapien Work Phone: [facility] Work Phone: Start: 12-07-2022 End: 12-07-2022 Patient encounter procedure Sarah MARIE Work Phone: [facility] Comment on above: Sore throat (Primary Dx); URI, acute Start: 09-30-2022 End: 09-30-2022 Patient encounter procedure Aric Zapien MD Work Phone: [facility] Comment on above: Seizures (HCC) [...] 06-18-2022 Refill Aric Zapien MD Work Phone: [facility] Comment on above: Refill Request Start: 06-11-2022 ambulatory Leanna Benavidez RN [facility] Comment on above: DESI CEE RN ( Medication Adherence review per request of payer) Start: 04-27-2022 Telephone encounter Aric Huston MD Work Phone: Neurology Comment on above: Results Start: 04-26-2022 End: 04-26-2022 Subsequent hospital visit by physician [facility] (I-Stat/1.5t) Work Phone: Radiology Comment on [...] encounter Jaison Lauren Mansoor PERRY Work Phone: [facility] Comment on above: Results Start: 04-02-2022 Telephone encounter Aric Huston MD Work Phone: Neurology Comment on above: Orders Start: 04-01-2022 End: 04-01-2022 Patient encounter procedure Aric Zapien MD Work Phone: [facility] Comment on above: Permanent atrial fib rillation (HCC) (Primary Dx); Seizures (HCC); Primary pulmonary HTN (HCC); Primary hypertension; Mixed hyperlipidemia; Type 2 diabetes mellitus without complication, without long-term current use of insulin (HCC); History of thyroiditis; Enlarged thoracic aorta (HCC); Screening for AAA (abdominal aortic aneurysm) Start: 03-15-2022 Telephone encounter Jaison Lauren Mansoor PERRY Work Phone: [facility] Comment on above: Orders Start: 03-09-2022 End: 03-09-2022 Patient encounter procedure Jaison [place] Mansoor PERRY Work Phone: [facility] Comment on above: Medicare annual [facility] visit, initial (Primary Dx); 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 [...] 03-06-2022 End: 03-06-2022 Emergency department patient visit [facility] Start: 03-04-2022 Refill Aric Zapien MD Work Phone: [facility] [place] Comment on above: Refill Request Start: 02-23-2022 ambulatory Joceline Waldron RN [facility] Care Management Comment on above: DESI CEE RN ( SPC/SUPD rev. per request [facility]) Start: 09-24-2021 End: 09-24-2021 Patient encounter procedure Aric Zapien MD Work Phone: [facility] [place] Comment on above: Permanent [...] Zapien MD Work Phone: Internal Medicine Main Secretary Start: 03-12-2021 End: 03-12-2021 Subsequent hospital visit by physician [facility] [place] Work Phone: Radiology Comment on above: [...] Gutierrez.RESULTS READ BACK BY . Start: 11-22-2023 [employer] COVI D-19 VACCINE ( SEASON) AGE 12+ YR M [place] Max PA-C Work Phone: Start: 11-22-2023 Adult depression scr eening assessment [facility] [place] Work Phone: Start: 12-07-2022 STREP A MOLECULAR (POC) Mikki Rodriguez APRN.FEDERAL LAW CLERK Work Phone: Start: 04-26-2022 Mra head w/o [...] RSV Vaccine (1 - 1-dose 75+ series) [facility] Start: 09-24-2026 PROSTATE CANCER SCREENING DISCUSSION PROSTATE CANCER SCREENING DISCUSSION [facility] Start: 09-24-2026 Prostate specific antigen measurement Prostate Cancer Screening Discussion [facility] Start: 06-22-2025 Annual PCP Team Chronic Disease Visit Annual PCP Team Chronic Disease Visit [facility] Start: 06-22-2025 BP Controlled (<130/80) BP Controlled (<130/80) [facility] in Start: 06-22-2025 Complete blood count Hemoglobin/Hematocrit [facility] Start: 06-22-2025 Creatinine measurement Serum Creatinine [facility] Start: 06-22-2025 Hepatitis B screening Urine Albumin:Creatinine Ratio [facility] Start: 06-22-2025 Hepatitis B surface antibody level LDL Cholesterol [facility] Start: 03-08-2025 [facility] Start: 01-28-2025 Influenza vaccination Influenza Vaccine (Season Ended) [facility] Start: 12-20-2024 Hemoglobin A1c measurement HbA1C [facility] Start: 11-21-2024 Annual PCP Team Chronic Disease Visit Annual PCP Team Chronic Disease Visit [facility] Start: 11-21-2024 Depression Screening Depression Screening [facility] Start: 11-21-2024 Diabetic foot examination Diabetic Foot Exam [facility] Start: 07-12-2024 End: 07-12-2024 Patient encounter procedure 07/12/2024 1:20 PM EST Office Visit [facility] Medicine [place] [address] [facility] [place] [address] Florinda Setvenson APRN.FEDERAL LAW CLERK [address] [place] [address] 2 week follow up Family [facility] Comment on above: 2 week follow up Start: 07-11-2024 Patient discharge [facility] Start: 07-10-2024 Care planning and problem solving actions [facility] Start: 07-10-2024 [facility] Start: 07-10-2024 End: 07-10-2024 Patient encounter procedure [facility] [employer]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: Lumbar x-ray needs order L1 Fx Start: 07-10-2024 Oxygen therapy [facility] Start: 07-09-2024 Care planning and problem solving actions [facility] Start: 07-09-2024 End: 07-09-2024 Following clinical pathway protocol [facility] Start: 07-09-2024 Assessment of risk of venous thromboembolism [facility] Start: 07-09-2024 Care regimes management [facility] Start: 07-09-2024 Insertion of catheter into peripheral vein [facility] Start: 07-09-2024 Measuring intake and output [facility] Start: 07-09-2024 Notification of physician [facility] Start: 07-09-2024 Providing care according to standard [facility] Start: 07-09-2024 Provision of activity privileges [facility] Start: 07-09-2024 Referral to occupational therapist [facility] Start: 07-09-2024 Referral to service [facility] Start: 07-09-2024 End: 07-09-2024 [facility] Start: 07-09-2024 Admission procedure [facility] Start: 07-09-2024 Patient referral to dietitian [facility] Start: 06-22-2024 End: 09-21-2024 CBC W Auto Differential panel - Blood [facility] Comment on above: Expected: 06/22/2024, Expires: Start: 06-22-2024 End: 09-21-2024 Comprehensive metabolic 2000 panel - Serum or Plasma [facility] Comment on above: Expected: 06/22/2024, Expires: Start: 06-22-2024 End: 09-21-2024 Ferritin [Mass/volume] in Serum or Plasma [facility] Comment on above: Expected: 06/22/2024, Expires: Start: 06-22-2024 End: 09-21-2024 Hemoglobin A1c in Blood [facility] Work Phone: Comment on above: Expected: 06/22/2024, Expires: Start: 06-22-2024 End: 09-21-2024 Iron and Iron binding capacity panel - Serum or Plasma [facility] Comment on above: Expected: 06/22/2024, Expires: Start: 06-22-2024 End: 09-21-2024 LIPID PANEL, NONFASTING [facility] Comment on above: Expected: 06/22/2024, Expires: Start: 06-22-2024 End: 09-21-2024 Magnesium [Mass/volume] in Serum or Plasma [facility] Comment on above: Expected: 06/22/2024, Expires: Start: 06-22-2024 End: 09-21-2024 Microalbumin/Creatinine [Mass Ratio] in Urine [facility] Comment on above: Expected: 06/22/2024, Expires: Start: 06-21-2024 End: 06-21-2024 Patient encounter procedure 06/21/2024 11:00 AM EST Office Visit [facility] [address] [place] [address] Aric Zapien MD [address] [place] [address] FALL ON ICE [facility] Comment on above: fall Start: 05-30-2024 Advance Directive Discussion Advance Directive Discussion [facility] Start: 05-25-2024 End: 05-25-2024 Patient encounter procedure Family [facility] [place] Comment on above: 6 month follow up 6 month follow up - HTN focus [place] Start: 05-24-2024 Annual PCP Team Chronic Disease Visit Annual PCP Team Chronic Disease Visit [facility] Start: 05-24-2024 BP Controlled (<130/80) BP Controlled (<130/80) [facility] Start: 05-24-2024 Complete blood count Hemoglobin/Hematocrit [facility] Start: 05-24-2024 Creatinine measurement Serum Creatinine [facility] Start: 05-24-2024 Hepatitis B screening Urine Albumin:Creatinine Ratio [facility] Start: 05-24-2024 Hepatitis B surface antibody level LDL Cholesterol [facility] Start: 02-22-2024 End: 05-23-2024 Hemoglobin A1c in Blood HEMOGLOBIN A1C Lab Routine Type 2 diabetes mellitus without complication, without long-term current use of insulin (HCC) Expected: 02/22/2024, Expires: 05/23/2024 [facility] Comment on above: Expected: 02/22/2024, Expires: Start: 01-29-2024 Covid-19 Vaccine ( season) Covid-19 Vaccine () [facility] Start: 01-29-2024 Influenza vaccination [facility] Start: 12-08-2023 BP CONTROLLED (<130/80) BP CONTROLLED (<130/80) [facility] Start: 11-23-2023 Hemoglobin A1c measurement HbA1C [facility] Start: 11-22-2023 End: 11-22-2023 Patient encounter procedure 11/22/2023 3:40 PM EDT Office Visit Family [facility] [place] [address] [place] [address] Jaison Max PA-C [address] [place] [address] 6 mth f/u Family [facility] [place] Comment on above: 6 mth f/u Start: 11-22-2023 End: 02-21-2024 CBC W Auto Differential panel - Blood COMPLETE BLOOD COUNT AND DIFFERENTIAL Lab Routine Seizures (HCC) Mitral valve insufficiency, unspecified etiology Non-rheumatic tricuspid valve insufficiency Left atrial enlargement 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 (HCC) 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 Pulmonary hypertension (HCC) Enlarged thoracic aorta (HCC) Primary hypertension Chronic renal failure (CRF), stage 3a (HCC) Type 2 diabetes mellitus without complication, without long-term current use of insulin (HCC) Adjustment disorder with mixed emotional features Anxiety state Expected: 11/22/2023, Expires: 02/21/2024 [facility] Work Phone: Comment on above: Expected: 11/22/2023, Expires: 4 Start: 11-22-2023 End: 02-21-2024 Comprehensive metabolic 2000 panel - Serum or Plasma COMPREHENSIVE METABOLIC PANEL Lab Routine Seizures (HCC) Mitral valve insufficiency, unspecified etiology Non-rheumatic tricuspid valve insufficiency Left atrial enlargement 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 (HCC) 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 of 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 Pulmonary hypertension (HCC) Enlarged thoracic aorta (HCC) Primary hypertension Mixed hyperlipidemia Chronic renal failure (CRF), stage 3a (HCC) Type 2 diabetes mellitus without complication, without long-term current use of insulin (HCC) Adjustment disorder with mixed emotional features Anxiety state Expected: 11/22/2023, Expires: 02/21/2024 [facility] Comment on above: Expected: 11/22/2023, Expires: Start: 11-22-2023 End: 02-21-2024 Lipid 1996 panel - Serum or Plasma LIPID PANEL BASIC Lab Routine Mitral valve insufficiency, unspecified etiology Non-rheumatic tricuspid valve insufficiency Left atrial enlargement 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 (HCC) 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 of 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 Pulmonary hypertension (HCC) Enlarged thoracic aorta (HCC) Primary hypertension Mixed hyperlipidemia Type 2 diabetes mellitus without complication, without long-term current use of insulin (HCC) Expected: 11/22/2023, Expires: 02/21/2024 [facility] Comment on above: Expected: 11/22/2023, Expires: Start: 10-15-2023 ANNUAL PCP TEAM CHRONIC DISEASE VISIT ANNUAL PCP TEAM CHRONIC DISEASE VISIT [facility] Start: 10-01-2023 3 comp foot exam completed DIABETIC FOOT EXAM [facility] Start: 10-01-2023 ANNUAL PCP TEAM CHRONIC DISEASE VISIT ANNUAL PCP TEAM CHRONIC DISEASE VISIT [facility] Start: 10-01-2023 Diabetic foot examination Diabetic Foot Exam [facility] Start: 10-01-2023 Urine microalbumin profile [facility] Comment on above: Postponed from 01/04/1976 (Declined at t his time) Start: 09-23-2023 Covid-19 Vaccine () Covid-19 Vaccine () [facility] Start: 05-30-2023 Advance Directive Discussion Advance Directive Discussion [facility] Start: 05-30-2023 Behavioral Health Screening Behavioral Health Screening [facility] Start: 04-12-2023 Glaucoma screening Dilated Retinal Exam [facility] Start: 04-12-2023 Hepatitis C antibody, confirmatory test DILATED RETINAL EXAM [facility] Start: 04-02-2023 Hemoglobin A1c/Hemoglobin.total in Blood HBA1C [facility] Start: 04-01-2023 ANNUAL PCP TEAM CHRONIC DISEASE VISIT ANNUAL PCP TEAM CHRONIC DISEASE VISIT [facility] Start: 04-01-2023 BP CONTROLLED (<130/80) BP CONTROLLED (<130/80) [facility] Start: 04-01-2023 Hepatitis B screening URINE ALBUMIN:CREATININE RATIO [facility] Start: 04-01-2023 Hepatitis B surface antibody level LDL CHOLESTEROL [facility] Start: 03-09-2023 ANNUAL PCP TEAM CHRONIC DISEASE VISIT ANNUAL PCP TEAM CHRONIC DISEASE VISIT [facility] Start: 03-09-2023 BP CONTROLLED (<130/80) BP CONTROLLED (<130/80) [facility] Start: 03-08-2023 BP CONTROLLED (<130/80) BP CONTROLLED (<130/80) [facility] Start: 01-28-2023 Covid-19 Vaccine ( season) Covid-19 Vaccine () [facility] Start: 01-28-2023 Influenza vaccination [facility] Start: 12-07-2022 End: 12-21-2022 Influenza virus A and B RNA and SARS-CoV-2 (COVID-19) N gene panel - Respiratory specimen by CRYSTAL with probe detection [facility] Work Phone: Comment on above: Expected: 12/07/2022, Expires: 3 Start: 09-30-2022 End: 11-30-2022 Comprehensive metabolic 2000 panel - Serum or Plasma [facility] Work Phone: Comment on above: Expected: 09/30/2022, Expires: Start: 09-30-2022 End: 11-30-2022 T4/FTI/T4U [facility] Work Phone: Comment on above: Expected: 09/30/2022, Expires: 3 Start: 09-30-2022 End: 11-30-2022 Thyrotropin [Units/volume] in Serum or Plasma [facility] Work Phone: Comment on above: Expected: 09/30/2022, Expires: Start: 09-30-2022 End: 11-30-2022 Triiodothyronine (T3) [Mass/volume] in Serum or Plasma [facility] Work Phone: Comment on above: Expected: 09/30/2022, Expires: Start: 09-29-2022 Hemoglobin A1c/Hemoglobin.total in Blood HBA1C [facility] Start: 09-24-2022 ANNUAL PCP TEAM CHRONIC DISEASE VISIT ANNUAL PCP TEAM CHRONIC DISEASE VISIT [facility] Start: 06-09-2022 End: 08-09-2022 Hemoglobin A1c in Blood HGB A1C Lab Routine Hyperglycemia Expected: 06/09/2022, Expires: 08/09/2022 [facility] Work Phone: Comment on above: Expected: 06/09/2022, Expires: 3 Start: 05-30-2022 ADVANCE DIRECTIVE DISCUSSION ADVANCE DIRECTIVE DISCUSSION [facility] Start: 05-30-2022 DEPRESSION ASSESSMENT DEPRESSION ASSESSMENT [facility] Start: 04-14-2022 3 comp foot exam completed DIABETIC FOOT EXAM [facility] Start: 04-09-2022 End: 06-09-2022 Valproate [Mass/volume] in Serum or Plasma VALPROIC A/DEPAKENE Lab Routine Nonintractable epilepsy without status epilepticus, unspecified epilepsy type (HCC) Expected: 04/09/2022, Expires: 06/09/2022 [facility] Work Phone: Comment on above: Expected: 04/09/2022, Expires: 3 Start: 04-03-2022 End: 06-03-2022 Basic metabolic 2000 panel - Serum or Plasma BASIC METABOLIC PNL Lab Routine Elevated serum creatinine Expected: 04/03/2022, Expires: 06/03/2022 [facility] Work Phone: Comment on above: Expected: 04/03/2022, Expires: 3 Start: 04-01-2022 End: 06-01-2022 LIPID PANEL, NONFASTING [facility] Work Phone: Comment on above: Expected: 04/01/2022, Expires: 3 Start: 04-01-2022 End: 06-01-2022 Thyrotropin [Units/volume] in Serum or Plasma [facility] Work Phone: Comment on above: Expected: 04/01/2022, Expires: 3 Start: 03-25-2022 ANNUAL PCP TEAM CHRONIC DISEASE VISIT ANNUAL PCP TEAM CHRONIC DISEASE VISIT [facility] Start: 03-25-2022 BP CONTROLLED (<130/80) BP CONTROLLED (<130/80) [facility] Start: 03-25-2022 Hepatitis B surface antibody level LDL CHOLESTEROL [facility] Start: 03-09-2022 End: 05-09-2022 ALBUMIN/CREAT RATIO RND UR ALBUMIN/CREAT RATIO RND UR Lab Routine Hyperglycemia Expected: 03/09/2022, Expires: 05/09/2022 [facility] Work Phone: Comment on above: Expected: 03/09/2022, Expires: 2 Start: 03-09-2022 End: 05-09-2022 Hepatitis C virus Ab [Presence] in Serum HEP C AB IA W/CONF SCRN Lab Routine Encounter for hepatitis C screening test for low risk patient Expected: 03/09/2022, Expires: 05/09/2022 [facility] Work Phone: Comment on above: Expected: 03/09/2022, Expires: 2 Start: 03-08-2022 End: 05-08-2022 CBC W Auto Differential panel - Blood CBC + DIFF Lab Routine 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 status epilepticus, unspecified epilepsy type (HCC) Expected: 03/08/2022, Expires: 05/08/2022 [facility] Work Phone: Comment on above: Expected: 03/08/2022, Expires: 2 Start: 03-08-2022 End: 05-08-2022 Comprehensive metabolic 2000 panel - Serum or Plasma COMP METABOLIC PANEL Lab Routine 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 status epilepticus, unspecified epilepsy type (HCC) Expected: 03/08/2022, Expires: 05/08/2022 [facility] Work Phone: Comment on above: Expected: 03/08/2022, Expires: 2 Start: 03-08-2022 End: 05-08-2022 Valproate [Mass/volume] in Serum or Plasma VALPROIC A/DEPAKENE Lab Routine 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 status epilepticus, unspecified epilepsy type (HCC) Expected: 03/08/2022, Expires: 05/08/2022 [facility] Work Phone: Comment on above: Expected: 03/08/2022, Expires: 2 Start: 01-28-2022 Influenza vaccination INFLUENZA (#1) [facility] Start: 2022 ADVANCE DIRECTIVE DISCUSSION ADVANCE DIRECTIVE DISCUSSION [facility] Start: 09-24-2021 End: 11-24-2021 ALBUMIN/CREAT RATIO RND UR ALBUMIN/CREAT RATIO RND UR Lab Routine Type 2 diabetes mellitus without complication, without long-term current use of insulin (HCC) Expected: 09/24/2021, Expires: 11/24/2021 [facility] Work Phone: Comment on above: Expected: 09/24/2021, Expires: 2 Start: 09-24-2021 End: 11-24-2021 CBC W Auto Differential panel - Blood CBC + DIFF Lab Routine Type 2 diabetes mellitus without complication, without long-term current use of insulin (HCC) Expected: 09/24/2021, Expires: 11/24/2021 [facility] Work Phone: Comment on above: Expected: 09/24/2021, Expires: 2 Start: 09-24-2021 End: 11-24-2021 Comprehensive metabolic 2000 panel - Serum or Plasma COMP METABOLIC PANEL Lab Routine Type 2 diabetes mellitus without complication, without long-term current use of insulin (HCC) Expected: 09/24/2021, Expires: 11/24/2021 [facility] Work Phone: Comment on above: Expected: 09/24/2021, Expires: 2 Start: 09-24-2021 End: 11-24-2021 Hemoglobin A1c/Hemoglobin.total in Blood HGB A1C Lab Routine Type 2 diabetes mellitus without complication, without long-term current use of insulin (HCC) Expected: 09/24/2021, Expires: 11/24/2021 [facility] Work Phone: Comment on above: Expected: 09/24/2021, Expires: 2 Start: 09-24-2021 End: 11-24-2021 Hepatitis C virus Ab [Presence] in Serum HEP C AB IA W/CONF SCRN Lab Routine Need for hepatitis C screening test Expected: 09/24/2021, Expires: 11/24/2021 [facility] Work Phone: Comment on above: Expected: 09/24/2021, Expires: 2 Start: 09-24-2021 End: 11-24-2021 HIV 1+2 Ab [Presence] in Serum or Plasma by Immunoassay HIV 1 2 COMBO(AG/AB),WITH REFLEX TO DIFFERENTIATION Lab Routine Screening for HIV (human immunodeficiency virus) Expected: 09/24/2021, Expires: 11/24/2021 [facility] Work Phone: Comment on above: Expected: 09/24/2021, Expires: 2 Start: 09-24-2021 End: 11-24-2021 LIPID PANEL BASIC LIPID PANEL BASIC Lab Routine Type 2 diabetes mellitus without complication, without long-term current use of insulin (HCC) Expected: 09/24/2021, Expires: 11/24/2021 [facility] Work Phone: Comment on above: Expected: 09/24/2021, Expires: 2 Start: 09-24-2021 End: 11-24-2021 VALPROIC A/DEPAKENE VALPROIC A/DEPAKENE Lab Routine Seizures (HCC) Expected: 09/24/2021, Expires: 11/24/2021 [facility] Work Phone: Comment on above: Expected: 09/24/2021, Expires: 2 Start: 09-23-2021 Hemoglobin A1c/Hemoglobin.total in Blood HBA1C [facility] Start: 09-08-2021 End: 11-08-2021 ALBUMIN/CREAT RATIO RND UR ALBUMIN/CREAT RATIO RND UR Lab Routine Type 2 diabetes mellitus without complication, without long-term current use of insulin (HCC) Expected: 09/08/2021, Expires: 11/08/2021 [facility] Work Phone: Comment on above: Expected: 09/08/2021, Expires: 2 Start: 09-08-2021 End: 11-08-2021 Hemoglobin A1c/Hemoglobin.total in Blood HGB A1C Lab Routine Type 2 diabetes mellitus without complication, without long-term current use of insulin (HCC) Expected: 09/08/2021, Expires: 11/08/2021 [facility] Work Phone: Comment on above: Expected: 09/08/2021, Expires: 2 Start: 09-08-2021 End: 11-08-2021 SCHEDULE LAB TESTING SCHEDULE LAB TESTING Lab Routine Expected: 09/08/2021, Expires: 11/08/2021 [facility] Work Phone: Comment on above: Expected: 09/08/2021, Expires: 2 Start: 07-14-2021 COVID-19 VACCINE (3 - Booster for Moderna series) COVID-19 VACCINE (3 - Booster for Moderna series) [facility] Start: 05-30-2021 DEPRESSION ASSESSMENT DEPRESSION ASSESSMENT [facility] Start: 04-08-2021 COVID-19 VACCINE (3 - Booster for Moderna series) COVID-19 VACCINE (3 - Booster for Moderna series) [facility] Start: 04-08-2021 COVID-19 VACCINE (3 - Moderna series) COVID-19 VACCINE (3 - Moderna series) [facility] Start: 07-23-2020 PROSTATE CANCER SCREENING DISCUSSION PROSTATE CANCER SCREENING DISCUSSION [facility] Start: 03-01-2019 PNEUMOCOCCAL: 65+ (2 - PCV) PNEUMOCOCCAL: 65+ (2 - PCV) [facility] Start: 03-02-2017 Adult depression screening assessment DEPRESSION SCREENING [facility] Start: 2017 Hepatitis B Vaccine (1 of 3 - Risk 3-dose series) Hepatitis B Vaccine (1 of 3 - Risk 3-dose series) [facility] Start: 2017 RSV Vaccine (1 - 1-dose 60+ series) RSV Vaccine (1 - 1-dose 60+ series) [facility] Start: 2002 COLOGUARD (FIT-DNA) COLOGUARD (FIT-DNA) [facility] Start: 2002 Colonoscopy COLONOSCOPY [facility] Start: 2002 COLORECTAL CANCER SCREENING COLORECTAL CANCER SCREENING [facility] Start: [address] COLONOGRAPHY [facility] Start: 2002 FECAL OCCULT BLOOD FECAL OCCULT BLOOD [facility] Start: 2002 Screening for malignant neoplasm of colon [facility] Start: 2002 SIGMOIDOSCOPY SIGMOIDOSCOPY [facility] Start: 01-04-1976 Urine microalbumin profile [facility] Start: 1975 BP CONTROLLED (<130/80) BP CONTROLLED (<130/80) [facility] Start: 1975 HEPATITIS C SCREENING HEPATITIS C SCREENING [facility] Start: 1975 HIV SCREENING HIV SCREENING [facility] Start: 1967 3 comp foot exam completed DIABETIC FOOT EXAM [facility] Start: 1967 Hepatitis B screening URINE ALBUMIN:CREATININE RATIO [facility] Start: 1967 Hepatitis C antibody, confirmatory test DILATED RETINAL EXAM [facility] Start: 1962 COVID-19 VACCINE (1) COVID-19 VACCINE (1) [facility] Start: 1957 ABDOMINAL AORTIC ANEURYSM SCREENING ABDOMINAL AORTIC ANEURYSM SCREENING [facility] Start: 1955 Abdominal aortic aneurysm screening Abdominal Aortic Aneurysm Screening [facility] COLOGUARD COLOGUARD Lab Ro utine Screening for colon cancer Ordered: 09/24/2021 [facility] Work Phone: Comment on above: Ordered: 09/24/2021 COLOGUARD COLOGUARD Lab Ro utine Screening for colon cancer Ordered: 09/30/2022 [facility] Work Phone: Comment on above: Ordered: 09/30/2022 COLOGUARD COLOGUARD Lab Ro utine Screening for colon cancer Ordered: 11/22/2023 [facility] Comment on above: Ordered: 11/22/2023 End: 03-10-2023 Echocardiography ECHO Cardiology Routine 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 (HCC) Non-rheumatic tricuspid valve insufficiency Mitral valve insufficiency, unspecified etiology Primary pulmonary HTN (HCC) Enlarged thoracic aorta (HCC) 1 Occurrences starting 03/10/2022 until 03/10/2023 [facility] Work Phone: Comment on above: 1 Occurrences starting 03/10/2022 until 03/10/2023 End: 03-08-2023 EPIL EEG ROUTINE EPIL EEG ROUTINE NEUROLOGY Routine 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 status epilepticus, unspecified epilepsy type (HCC) 1 Occurrences starting 03/08/2022 until 03/08/2023 [facility] Work Phone: Comment on above: 1 Occurrences starting 03/08/2022 until 03/08/2023 End: 05-12-2023 Mra head w/o contrst material MRA BRAIN WO IVCON Radiology Routine Other symptoms and signs involving the nervous system 1 Occurrences starting 04/12/2022 until 05/12/2023 [facility] Work Phone: Comment on above: 1 Occurrences starting 04/12/2022 until 05/12/2023 End: 05-12-2023 Mra neck w/o contrst material MRA CAROTID WO IVCON Radiology Routine Other symptoms and signs involving the nervous system 1 Occurrences starting 04/12/2022 until 05/12/2023 [facility] Work Phone: Comment on above: 1 Occurrences starting 04/12/2022 until 05/12/2023 End: 04-07-2023 Mri brain brain stem w/o contrast material MRI BRAIN WO IVCON Radiology Routine 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 status epilepticus, unspecified epilepsy type (HCC) 1 Occurrences starting 03/08/2022 until 04/07/2023 [facility] Work Phone: Comment on above: 1 Occurrences starting 03/08/2022 until 04/07/2023 Patient Education [facility] Work Phone: Patient referral [facility] Work Phone: PFIZER-BIONTE[employer] COVI D-19 BIVALENT BOOSTER VACCINE, AGE 12+ YR [employer] COVID-19 BIVALENT BOOSTER VACCINE, AGE 12+ YR Immunization/Injection Routine Need for COVID-19 vaccine Ordered: 03/09/2022 [facility] Work Phone: Comment on above: Ordered: 03/09/2022 End: 10-01-2023 PVR LEG NOAM VAS LAB [facility] Vascular Lab Routine Peripheral vascular disease (HCC) 1 Occurrences starting 09/30/2022 until 10/01/2023 [facility] Work Phone: Comment on above: 1 Occurrences starting 09/30/2022 until 10/01/2023 End: 12-21-2024 US Abdominal Aorta for screening US SCREENING FOR AAA Radiology Routine Screening for abdominal aortic aneurysm 1 Occurrences starting 11/22/2023 until 12/21/2024 [facility] Comment on above: 1 Occurrences starting 11/22/2023 until 12/21/2024 End: 05-01-2023 Us abdominal aorta real time screen study aaa US SCREENING FOR AAA Radiology Routine Screening for AAA (abdominal aortic aneurysm) 1 Occurrences starting 04/01/2022 until 05/01/2023 [facility] Work Phone: Comment on above: 1 Occurrences starting 04/01/2022 until 05/01/2023 End: 10-30-2023 Us abdominal aorta real time screen study aaa US SCREENING FOR AAA Radiology Routine Screening for AAA (abdominal aortic aneurysm) 1 Occurrences starting 09/30/2022 until 10/30/2023 [facility] Work Phone: Comment on above: 1 Occurrences starting 09/30/2022 until 10/30/2023 [facility] Immunizations Immunization Date Immunization Notes Care Provider Cecil alvarez 07-10-2024 influenza, high dose seasonal, preservative-free Dr. Aric Zapien MD Work Phone: [facility] 11-28-2023 COVID-19 vaccine, ag e 12+ yr, season (PFIZER-BIONTECH) CYNTHIA Max PA-C Work Phone: [facility] 05-24-2023 COVID-19 vaccine, ag e 12+ yr, season (PFIZER-BIONTECH) Aric Zapien MD Work Phone: [facility] 05-24-2023 influenza (HD-IIV4) vaccine, age 65+ yr, high dose, quadrivalent, PF (FLUZONE HIGH-DOSE) Aric Zapien MD Work Phone: [facility] 05-24-2023 influenza virus vaccine, unspecified formulation CYNTHIA Max PA-C Work Phone: [facility] 03-12-2022 influenza, high dose seasonal, preservative-free Aric Zapien MD Work Phone: [facility] 03-12-2022 influenza virus vaccine, unspecified formulation Mri (I-Stat/1.5t) Work Phone: [facility] 03-09-2022 pneumococcal Conjuga te, unspecified formulation CYNTHIA Max PA-C Work Phone: [facility] Work Phone: 03-09-2022 pneumococcal (PCV20) vaccine, 20 valent (PREVNAR 20) CYNTHIA Max PA-C Work Phone: [facility] Work Phone: 03-25-2021 influenza, injectabl e, quadrivalent, contains preservative Aric Zapien MD Work Phone: [facility] 02-11-2021 COVID-19 original vaccine, full dose, monovalent (MODERNA) Aric Zapien MD Work Phone: [facility] 01-14-2021 COVID-19 original vaccine, full dose, monovalent (MODERNA) Aric Zapien MD Work Phone: [facility] 02-29-2020 influenza, high dose seasonal, preservative-free Aric Zapien MD Work Phone: [facility] 02-29-2020 influenza, injectabl e, quadrivalent, preservative free Aric Zapien MD Work Phone: [facility] 02-29-2020 zoster vaccine recombinant Aric Zapien MD Work Phone: [facility] 10-31-2019 zoster vaccine recombinant Aric Zapien MD Work Phone: [facility] 03-31-2019 Influenza, injectabl e, Madin Brigitte Canine Kidney, preservative free, quadrivalent Aric Zapien MD Work Phone: [facility] 03-31-2019 influenza, seasonal, injectable Aric Zapien MD Work Phone: [facility] 03-01-2018 influenza, injectabl e, quadrivalent, preservative free Aric Zapien MD Work Phone: [facility] 03-01-2018 pneumococcal polysaccharide vaccine, 23 valent Aric Zapien MD Work Phone: [facility] 03-22-2017 influenza, seasonal, injectable Aric Zapien MD Work Phone: [facility] 03-22-2017 influenza, seasonal, injectable, preservative free Aric Zapien MD Work Phone: [facility] 04-29-2015 influenza, injectabl e, quadrivalent, preservative free Dr. Aric Zapien Work Phone: [facility] 04-29-2015 influenza, seasonal, injectable [facility] Work Phone: 04-29-2015 influenza, seasonal, injectable, preservative free Aric Zapien MD Work Phone: [facility] NEGATED: Highlighted row has not occurred!03-09-2022 COVID-19 booster vaccine, age 12+ yr, bivalent ([employer]) NA Mansoor PERRY Work Phone: [facility] Work Phone: Comment on above: Deferred: Postponed Payers Date Payer Category Payer Medicare [id number] 2024 Unknown [id number] 2024 Self-pay [id number] 2023 Medicare (Managed Care) JODIE Blackwood DIANA [facility] [id number] 2023 Unknown [facility] MEDIC[facility] ADVANTAGE O [id number] 2023-Present [phone] [address] [place] [address] [facility] [id number] 2023 Medicare [id number] 2023 Unknown [id number] 2019 Medicaid MEDICAID [facility] MEDICAID [id number] 2019-Present [phone] [address] [place] [address] Medicaid [id number] 2018 Medicare [facility] MEDICARE [facility] DUAL COMPLETE HMO SNP [id number] 2018-Present [phone] [address] [place] [address] Medicare [id number] 2018 Medicare [id number] 2017 Medicaid [id number]. [id number] 2017 Medicaid [id number] Unknown [employer] [id number] Unknown [facility] MCRDUAL COMP O [id number] Unknown VA AUTH REQUIR ED SEE NOTE [id number] Unknown [facility] MCRDUAL COMPLETE [id number] Unknown [id number] 32 Unknown [id number]. 462 Unknown [id number] 2.840.1.382968.3.579.2. 462 Unknown [id number] 2.16840.1.466873.3.579.2. 462 Unknown [id number] 2.840.1.904432.3.579.2. 462 Unknown [id number] 2.16.840.1.612627.3.579.2. 462 Unknown [id number] 2.16.840.1.592993.3.579.2. 462 Unknown [id number] 2.16.840.1.255961.3.579.2. 462 Unknown [id number] 2.16.840.1.030490.3.579.2. 462 Unknown [id number] 2.16.840.1.220158.3.579.2. 462 Unknown [id number] 2.16.840.1.448748.3.579.2. 462 Unknown [id number] 2.16.840.1.601864.3.579.2. 462 Unknown [id number] 2.16.840.1.026881.3.579.2. 462 Unknown [id number] 2.16.840.1.959301.3.579.2. 462 Unknown [id number] 2.16.840.1.722073.3.579.2. 462 Unknown [id number] 2.16.840.1.817653.3.579.2. 462 Unknown [id number] 2.16.840.1.418482.3.579.2. 462 Unknown [id number] 2.16.840.1.202146.3.579.2. 462 Unknown [id number] 2.16.840.1.083815.3.579.2. 462 Unknown [id number] 2.16.840.1.216893.3.579.2. 462 Social History Date Type Detail Facility Start: 07-23-2015 End: 03-08-2025 Tobacco smoking status NHIS Ex-smoker [facility] Start: 07-23-2015 End: 03-08-2022 Tobacco use and exposure Smokeless tobacco non-user [facility] Start: 04-14-2021 End: 06-22-2024 Alcohol intake Not Asked [facility] Start: 07-23-2015 End: 03-08-2022 Tobacco Comment Quit in 2005 [facility] Start: 1955 Sex Assigned At Not on file [facility] Start: 02-10-2021 End: 04-01-2022 Exposure to SARS-CoV-2 (event) Not sure [facility] History of tobacco use Current smoker [facility] Start: 02-15-2022 End: 02-25-2022 Exposure to SARS-CoV-2 (event) Unable to assess [facility] Work Phone: Start: 03-06-2022 End: 06-23-2023 Tobacco smoking status NHIS Unknown if ever smoked [facility] Start: 09-15-2014 None [facility] Start: 09-15-2014 Alone;- [facility] Start: 04-27-2015 Non-smoker [facility] Start: 1955 Sex Assigned At Male [facility] Start: 09-30-2022 End: 12-07-2022 History of Social function [facility] Work Phone: Start: 09-30-2022 End: 12-07-2022 Tobacco use panel [facility] Work Phone: Adult Depression Screening Assessment 0 [facility] Work Phone: Start: 09-11-2024 Sex Male (finding) [facility] Procedure Code Equipment Code Equipment Origin al Text Equipment Identifier Dates Test blood sugar (s) 1 times daily. Dx: Type 2 DM - Uncontrolled E11.65 Insulin: No [id number], [id number] Start: 04-01-2022 Comment on above: Test blood sugar(s) 1 times daily. Dx: Type 2 DM - Uncontrolled E11.65 Insulin: No Goals Date Patient Goal Desired Activity /State Functional Status Date Assessment Result Facility 07-11-2024 Functional status Chair [facility] Work Phone: 07-10-2024 Functional status Tolerates Activity Well [facility] Work Phone: 03-09-2022 Are you deaf, or do you have serious difficulty hearing No [facility] 03-09-2022 Are you blind, or do you have serious difficulty seeing, even when wearing glasses No [facility] 03-09-2022 Do you have serious difficulty walking or climbing stairs No [facility] 03-09-2022 Do you have difficul ty dressing or bathing No [facility] 03-09-2022 Because of a physica l, mental, or emotional condition, do you have difficulty doing errands alone such as visiting a physician's office or shopping No [facility] Mental Status Date Assessment Result Facility 07-11-2024 Cognitive function Voice/Name [facility] Work Phone: 03-09-2022 Because of a physica l, mental, or emotional condition, do you have serious difficulty concentrating, remembering, or making decisions Yes [facility] 03-06-2022 Cognitive function Level Of Cons ciousness Awake;Alert;Appropriate;Fol lows Commands;Responds to vocal stimuli [facility] Work Phone: Clinical Notes 06-27-2020 to 03-08-2025 Telephone Encounter - Nida Root LPN - 10/25/2024 12:23 PM EDTTelephone Encounter - Nida Root LPN - 10/25/2024 12:23 PM EDTTelephone Encounter - Felicita Bolden MA - 07/16/2024 3:25 PM EST Note Date & Type Note Facility 03-08-2025 Discharge summary [facility] 03-08-2025 Radiology Diagnostic study note [facility] Imaging Services [address] [place], [place] [address] Spine Cervical without Contras MR#: [id number] Acct: [id number] Name: REINA SULLIVAN Rep #: [id number] : 1955 M 70 From: Maulik Levi MD PCP: Dr. Aric Zapien MD Status: REG E R Study:Spine Cervical without Contras Date of Exam: 03/08/25 Exam# [id number] Ordering Dr: Damien Cho MD PROCEDURE: SPINE [...] evidence of acute fracture. Spondylosis. Reading Location: [address] CC: Dr. Liza Cho MD; Dr. Aric Zapien MD ~ Investigation Specialist: Signed [facility] 03-08-2025 Radiology Diagnostic study note [facility] Imaging Services [address] [place], [place] [address] Brain/Head without Contrast MR#: [id number] Acct: [id number] Name: REINA SULLIVAN Rep #: [id number] : 1955 M 70 From: Aleks Rodriguez MD PCP: Dr. Aric Zapien MD Status: REG E R Study:Brain/Head without Contrast Date of Exa m: 03/08/25 Exam# [id number] Ordering Dr: Damien Cho MD PROCEDURE: BRAIN/HEAD [...] Mild ventricular dilation is present along with [id number] central and peripheral volume loss. Sinuses/Mastoids: Mucous [...] ischemia and severe volume loss. Reading Location: [id number] CC: Dr. Liza Cho MD; Dr. Aric Zapien MD ~ Investigation Specialist: Signed [facility] 10-25-2024 Telephone encounter Note No show letter #2 sent to patient. [facility] 10-25-2024 Miscellaneous Notes No show letter #2 sent to patient. documented in this encounter [facility] 07-16-2024 Telephone encounter Note Patient canceled his appointment on 07/12/24 with Isa Stevenson. He was discharged from [facility] on 07/11/24 DX: AFIB RVR, debility. Called and spoke with ex- Flor, his emergency contact, and she said he is in [facility] for rehab with the hopes for permanent placement afterwards. Felicita Bolden MA July 16, 2024 3:30 PM [facility] 07-16-2024 Miscellaneous Notes Patient canceled his appointment on 07/12/24 with Isa Stevneson. He was discharged from [facility] on 07/11/24 DX: AFIB RVR, debility. Called and spoke with ex- Flor, his emergency contact, and she said he is in [facility] for rehab with the hopes for permanent placement afterwards. Felicita Bolden MA July 16, 2024 3:30 PM documented in this encounter [facility] 07-11-2024 Note [facility] Medical Records Department [address] [place] [address] Discharge Summary 07/11/24 0914 MR#: [id number] Acct: [id number] Name: REINA SULLIVAN Rep #: [id number] : 1955 69 From: Yann Ascencio DO PCP: Dr. Aric Zapien MD Status:ADM IN Location: [place] [address] Providers Date of Admission: 07/09/24 Primary Care [...] Simvastatin 80mg (more content not included)... [facility] 07-09-2024 Evaluation note Diagnosis Onset Date Resolution Atrial fibrillation with rapid ventricular response resolved July 09 10:34am Bilateral ankle pain resolved 2024 10:34am Bilateral leg and foot pain resolved July 09 10:34am [facility] Work Phone: [phone] 209-721601-28-2025 Telephone encounter Note* Telephone Encounter - Rodolfo Werner - 06/26/2024 8:25 AM EST I left a vm for patient to call when available to schedule an appt fro his fracture referral in hischart [facility]01-28-2025 Miscellaneous Notes* Telephone Encounter - Rodolfo Werner - 06/26/2024 8:25 AM EST I left a vm for patient to call when available to schedule an appt fro his fracture referral in hischart [facility] Telephone encounter Note * Telephone Encounter - Felicita Bolden MA - 06/25/2024 11:51 AM EST Spoke with ex , Halima, and she was made aware of results and provider message. She was also given the number to call and schedule his appointment for spine. She verbalizes understanding. Felicita Bolden MA June 25, 2024 11:52 AM [facility]01-27-2025 Miscellaneous Notes* Telephone Encounter - Felicita [...] Halima Sullivan. 06/16/24 telephone encounter routed to [facility] for back, neck, and spine pool again for schedulingconsultation with orthopaedic lactation specialist. * Telephone Encounter - Karla Ferguson [...] have a compression fracture. [facility] Telephone encounter Note * Telephone Encounter - Mecca Summers - 06/25/2024 10:58 AM EST Patient returned missed call and received the provider's message. He voiced understanding. Patient requests all medical updates be discussed with his ex-spouse, Halima Sullivan. 06/16/24 telephone encounter routed to center for back, neck, and spine pool again for schedulingconsultation with orthopaedic lactation specialist. [facility]01-27-2025 Telephone encounter Note* Telephone Encounter - Karla Ferguson MA - 06/25/2024 10:47 AM EST Message left for pt to call back for results. Karla Ferguson MA [facility]01-27-2025 Telephone encounter Note* Telephone Encounter - [...] surgery. He does have a compression fracture. [facility]01-24-2025 Telephone encounter Note* Telephone Encounter - Florinda Stevenson APRN.CNP - 06/22/2024 5:03 PM EST Yes. An orthopedic lactation specialist. Does not need surgery but they can evaluate for kyphoplasty- setting the compression if needed [facility]01-24-2025 Miscellaneous Notes* Telephone Encounter - Florinda Stevenson APRN.CNP - 06/22/2024 5:03 PM EST Yes. An orthopedic lactation specialist. Does not need surgery but they [...] appropriately. Rebecca Dumas RN [facility] Miscellaneous Notes* Telephone Encounter - Mecca Summers - 06/22/2024 4:41 PM EST [facility] unauthorized to schedule for this department. Patient notified that JARRETT routed referralto the appropriate department and their facility will contact patient for scheduling. Patient requests all future medical information and appointment scheduling be disclosed to ex-spouse, Flor Sullivan, only. * Telephone Encounter - Felicita Bolden MA - 06/22/2024 4:29 PM EST Patient notified of results and transferred to senior power scheduler * Telephone Encounter - Florinda Stevenson [...] if pt knows he is scheduled at [facility] * Telephone Encounter - Aric Zapien MD - 06/19/2024 10:50 AM EST Please call before (I suspect was put in wrong place) * Telephone Encounter - Aric Zapien MD - 06/16/2024 8:47 AM EST Schedule to see me at [facility] in person on 06/21/24. Please make sure they are aware apptthey scheduled is at that office and not Mel documented [facility] Telephone encounter Note * Telephone Encounter - Mecca Summers - 06/22/2024 4:41 PM EST [facility] unauthorized to schedule for this department. Patient notified that JARRETT routed referralto the appropriate department and their facility will contact patient for scheduling. Patient requests all future medical information and appointment scheduling be disclosed to ex-spouse, Flor Sullivan, only. [facility]01-24-2025 Telephone encounter Note* Telephone Encounter - Rebecca Dumas RN - 06/22/2024 4:36 PM EST Asking for provider to clarify pt's order for [facility]. Does patient need to see a surgeon? Please advise so that [facility] staff can schedule patient appropriately. Rebecca Dumas RN [facility]01-24-2025 Telephone encounter Note* Telephone Encounter - Felicita Bolden MA - 06/22/2024 4:29 PM EST Patient notified of results and transferred to senior power scheduler [facility]01-24-2025 Telephone encounter Note* Telephone Encounter - Florinda Stevenson APRN.CNP - 06/22/2024 3:34 PM EST Please let patient know that he has a lumbar 1 compression fracture of the endplate. I am going to send him to a spine surgeon to review. Please facilitate primaryscheduling [facility]01-24-2025 NoteHNO ID: [id number] Author: EKATERINA BELTRE Tech Service: ? Author [...] PATIENT PRESENTS WITH AN IMPLANTABLE OR ATTACHED PARK WORKER: No RADIOLOGY DEPARTMENT: General X-ray: Exam(s) Completed: Spine X-Ray(s): Lumbar AP / LAT / L5-S1 PERIPHERAL IV DATA: Not applicable SIGNED BY: Rosa Wakefield June 22, 2024 2:52 [facility]01-24-2025 Instructions* Patient Instructions* Florinda Stevenson APRN.CNP - 06/22/2024 1:59 PM EST 1) Check blood and urine in lab 2) Xray lumbar spine 3) Methocarbamol 500 mg 3 x day as needed for low back pain 4) Follow up in 2 weeks documented in this encounterProvidence Hospital01-24-2025 NoteHNO ID: [id number] Author: FLORINDA STEVENSON APRN.CNP Service: ? 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 Huston TBI (traumatic brain injury) ([facility]) 2 times PAST SURGICAL HISTORY Procedure Laterality [...] M54.50 Concern for compressi (more content not included)...[facility] 06-22-2024 History of Present illness Narrative* Florinda Stevenson APRN.FEDERAL LAW CLERK - 06/22/2024 1:35 PM EST This is [...] HISTORY Diagnosis Date Atrial fibrillation ([facility]) Dr. 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 Huston TBI (traumatic brain injury) ([facility]) 2 times PAST SURGICAL HISTORY Procedure Laterality [...] improvement. Florinda Stevenson APRN.KVNG documented in this encounterProvidence Hospital01-21-2025 Telephone encounter Note * Telephone Encounter - Felicita Bolden MA - 06/19/2024 11:20 AM EST Please call pt and ask if pt knows he is scheduled at [facility]01[facility] Telephone encounter Note* Telephone Encounter - Aric Zapien MD - 06/19/2024 10:50 AM EST Please call before (I suspect was put in wrong place) [facility]01-18-[facility] Telephone encounter Note* Telephone Encounter - Aric Zapien MD - 06/16/2024 8:47 AM EST Schedule to see me at [facility] in person on 06/21/24. Please make sure they are aware apptthey scheduled is at that office and not [facility]01-16-[facility]25 Telephone encounter Note* Telephone Encounter - Lulu Fitch - 06/14/2024 [...] . Scheduled at his request on 06/21/24. [facility]01-16-[facility]25 Miscellaneous Notes* Telephone Encounter - [place] Lulu Bryant - 06/14/2024 10:31 AM EST [...] 13, 2024 9:08 AM documented in this encounterProvidence Hospital01-15-2025 Telephone encounter Note * Telephone Encounter [...] Courtney Crane June 13, 2024 9:08 AM [facility]12-30-2024 NoteHNO ID: [id number] Author: MAYURI PEREZ MA Service: ? Author Type: Instructional Services Librarian Type: Progress Notes Filed: 05/28/2024 19:08 Note Text: POPULATION HEALTH NAVIGATION OUTREACH Action/FYI MCAIP OUTREACH Reason for Outreach Suspected Conditions Patient Contacted: Unable or unnecessary to reach patient: Left message Navigation Signature: Mayuri Perez MA May 28, 2024 7:07 [facility]12-30-2024 History of Present illness Narrative* Mayuri Perez MA - 05/28/2024 7:07 PM EST POPULATION HEALTH NAVIGATION OUTREACH Action/FYI MCAIP OUTREACH Reason for Outreach Suspected Conditions Patient Contacted: Unable or unnecessary to reach patient: Left message Navigation Signature: Mayuri Perez MA May 28, 2024 7:07 PM documented in this encounterProvidence Hospital12-30-2024 NotePatient Outreach (NETNAV) REINA SULLIVAN ([id number]) 1955 M Date Time Provider Department 05/28/24 MAYURI PEREZ During your visit today, we recorded the following information about you: Mayuri Perez MA 05/28/2024 7:08 PM Signed POPULATION HEALTH NAVIGATION OUTREACH Action/FYI [facility] OUTREACH Reason for Outreach Suspected Conditions Patient Contacted: Unable or unnecessary to reach patient: Left message Navigation Signature: Mayuri ROSS Perez May 28, 2024 7:07 PM Allergies As of Date: 05/28/2024 Noted Allergy Reaction DYE 03/02/2016 14 - Other: See Comments Comments: used for heart cath Date Reviewed: 11/22/2023 Reviewed by: Florinda Flores LPN - Fully Assessed Reason for Visit: Population Health Navigation Outreach [3910] Cmt: [facility] OUTREACH Prescriptions as of 05/28/2024 - divalproex [...] unspecified na*09/30/2022 Left atrial enlargement [I51.7] 09/30/2022 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 of 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 *09/30/2022 Migraine headache [G43.909] 09/30/2022 Need for Streptococcus pneumoniae vaccination [*09/30/2022 Neoplasm of uncertain behavior of skin [D48.5] 09/30/2022 Noncompliance with treatment [Z91.199] 09/30/2022 Other polyp of sinus [J33.8] 09/30/2022 Pulmonary hypertension (HCC) [I27.20] 09/30/2022 Syncope and collapse [R55] 09/30/2022 09/30/2022 Undiagnosed cardiac murmurs [R01.1] 09/30/2022 09/30/2022 History of skull fracture [Z87.81] 09/30/2022 Encounter Status:Closed by MAUYRI PEREZ on 05/28/24[facility]11-[facility] History of Present illness Narrative* Edward Pleitez [facility] - 04/18/2024 11:07 AM EST Pt chart reviewed as part of population health initiative focused on statin use in patients with diabetes (DM) or cardiovascular disease (CVD). Reina Sullivan is identified through data from [employer] (insurer) as a potential candidate for statin [...] indicates patient has hx of CVA and IL, should be on high-intensity statin for secondary prevention. Patient scheduled to see PCP on 05/25. ALLERGIES Allergen Reactions Dye Other: See Comments used for heart cath PAST MEDICAL HISTORY Diagnosis Date Atrial fibrillation ([facility]) Dr. 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 Huston TBI (traumatic brain injury) ([facility]) 2 times Cholesterol, Total (mg/dL) Date Value [...] provider Edward Pleitez RPh documented in this encounterProvidence Hospital11-20-2024 NoteHNO ID: [id number] Author: EDWARD PLEITEZ RPh Service: ? Author Type: Pharmacist Type: Progress Notes Filed: 04/18/2024 11:12 Note Text: Pt chart reviewed as part of population health initiative focused on statin use in patients with diabetes (DM) or cardiovascular disease (CVD). Reina Sullivan is identified through data from [employer] (insurer) as a potential candidate for statin [...] indicates patient has hx of CVA and IL, should be on high-intensity statin for secondary prevention. Patient scheduled to see PCP on 05/25. ALLERGIES Allergen Reactions Dye Other: See Comments used for heart cath PAST MEDICAL HISTORY Diagnosis Date Atrial fibrillation ([facility]) Dr. 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 Huston TBI (traumatic brain injury) ([facility]) 2 times Cholesterol, Total (mg/dL) Date Value [...] review: Pending outreach to provider [facility] NoteHNO ID: [id number] Author: EDWARD PLEITEZ [facility] Service: ? Author Type: Pharmacist Type: Progress Notes Filed: 05/28/2024 15:55 Note Text: Appears patient was a no-show to PCP visit on 05/25. Edward Pleitez PharmD, [facility] Clinical PharmacistBerger Hospital11-20-2024 NotePatient Outreach (PHMEWO) REINA SULLIVAN ([id number]) 1955 M Date Time Provider Department 04/18/24 EDWARD PLEITEZ During your visit today, we recorded the following information about you: Edward Pleitez, [facility] 04/18/2024 11:12 AM Signed Pt chart reviewed as part of population health initiative focused on statin use in patients with diabetes (DM) or cardiovascular disease (CVD). Reina Sullivan is identified through data from [employer] (insurer) as a potential candidate for statin [...] indicates patient has hx of CVA and IL, should be on high-intensity statin for secondary prevention. Patient scheduled to see PCP on 05/25. ALLERGIES Allergen Reactions Dye Other: See Comments used for heart cath PAST MEDICAL HISTORY Diagnosis Date Atrial fibrillation ([facility]) Dr. 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 Huston TBI (traumatic brain injury) ([facility]) 2 times Cholesterol, Total (mg/dL) Date Value [...] to PCP visit on 05/25. Albert StephensD, [facility] Clinical Pharmacist Allergies As of [...] unspecified na*09/30/2022 Left atrial enlargement [I51.7] 09/30/2022 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 of 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 *09/30/2022 Migraine headac (more content not included)...[facility] 03-22-2024 Telephone encounter Note* Telephone Encounter - Merline Jimenez RN - 03/22/2024 2:44 PM EDT Patient does not see endocrinology. Will route to PCP office to make them aware. Merline Jimenez RN March 22, 2024 2:44 PM [facility]10-24-[facility] Miscellaneous Notes* Telephone Encounter - Merline [...] to reduce cardiovascular risk. documented in this encounterProvidence Hospital10-23-2024 Telephone encounter Note * Telephone Encounter - Vanna Flores - 03/21/2024 3:31 PM EDT Jodie states that their records show patient has diabetes but does not take statins. AMA recommendthat patient take a statin to reduce cardiovascular risk. [facility]10-17-2024 NoteHNO ID: [id number] Author: YOLANDA STRATTON MA Service: ? Author Type: Instructional Services Librarian Type: Progress Notes Filed: 03/15/2024 08:28 Note Text: POPULATION HEALTH NAVIGATION OUTREACH Action/FYI Letter received and sent to be mailed. Navigation Signature: Yolanda Stratton MA March 15, 2024 8:27 [facility]10-09-2024 NoteHNO ID: [id number] Author: JORDY HERNANDEZ MA Service: ? Author Type: Instructional Services Librarian Type: Progress Notes Filed: 03/07/2024 10:40 Note Text: POPULATION HEALTH NAVIGATION OUTREACH Action/FYI Patient is on [place] [facility] CURRENT [facility]OSTER Workbench list for [...] Jordy Hernandez MA March 07, 2024 7:34 [facility]10-09-2024 History of Present illness Narrative* Jordy Hernandez MA - 03/07/2024 7:34 AM EDT POPULATION HEALTH NAVIGATION OUTREACH Action/FYI Patient is on [facility] for below and needs appointment [...] 07, 2024 7:34 AM documented in this encounterProvidence Hospital10-09-2024 NotePatient Outreach (NETNAV) REINA SULLIVAN ([id number]) 1955 M Date Time Provider Department 03/07/24 JORDY HERNANDEZ [employer] During your visit today, we recorded the following information about you: Jordy Hernandez MA 03/07/2024 10:40 AM Signed POPULATION HEALTH NAVIGATION OUTREACH Action/FYI Patient is on [facility] CURRENT [facility]OSTER Workbench list for below and [...] unspecified na*09/30/2022 Left atrial enlargement [I51.7] 09/30/2022 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 Author Type: Instructional Services Librarian Type: Progress Notes Filed: 12/15/2023 13:03 Note [...] Moshe Friedman MA December 15, 2023 1:01 [facility]07-18-2024 History of Present illness Narrative* Moshe [...] 15, 2023 1:01 PM documented in this encounterProvidence Hospital07-18-2024 NotePatient Outreach (NETNAV) REINA SULLIVAN ([id number]) 1955 [place] Date Time Provider Department 12/15/23 [...] unspecified na*09/30/2022 Left atrial enlargement [I51.7] 09/30/2022 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 of 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 *09/30/2022 Migraine [...] 09/30/2022 Encounter Status:Closed by MOSHE FRIEDMAN on 12/15/23[facility] 11-24-2023 Telephone encounter Note* Telephone Encounter - Harvey Hazel MSW - 11/24/2023 12:54 PM EDT Nikkie called and spoke with Halima, patient ex in regards to service assistance options in the community. Halima notes that she helps patient to a certain extent. Halima and Nikkie spoke about [facility] Older Adult Resource Directory. Halima asks that Sw mail patient this guide for him to review and see what services are available in the community. Nikkie will also attach Community Action Older Adult support program and [facility] information. [facility]06-27-[facility] Miscellaneous Notes* Telephone Encounter - Harvey Hazel MSW - 11/24/2023 12:54 PM EDT Nikkie called and spoke with Halima, patient ex in regards to service assistance options in the community. Halima notes that she helps patient to a certain extent. Halima and Nikkie spoke about [facility] Older Adult Resource Directory. Halima asks that Sw mail patient this guide for him to review and see what services are available in the community. Nikkie will also attach [facility] Older Adult support program and [facility] information. documented in this encounterProvidence Hospital06-25-2024 Instructions* Patient Instructions* Jaison Max PA-C - 11/22/2023 3:54 PM EDT Nail dremmel for nail trimming might help, would need assistance documented in this encounterProvidence Hospital06-25-2024 History of Present illness Narrative* Jaison Max PA-C - 11/22/2023 3:40 PM EDT 68 year old male with c/o 6-month follow-up Last visit Dr. 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 Aric Huston Current medications: Apixaban 5 mg twice daily Divalproex DR 500 mg 1 tablet twice daily No seizures. 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) 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 of 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 Non-rheumatic tricuspid valve insufficiency Mitral valve insufficiency, unspecified etiology Left atrial enlargement Enlarged thoracic aorta (hcc) Primary pulmonary htn (hcc) Primary hypertension Mixed hyperlipidemia Cardiovascular interval hx: Last cardiology visit 08/04/2023 with aRkel Hodgson NP-C: Stable from a cardiac standpoint 10/14/2022 ECG: Atrial fibrillation with rapid ventricular response, nonspecific ST abnormality 11/19/2020 ED visit SOB with negative work up with normal EKG, CXR, troponins, routine lab 10/20/2022 EKG atrial fibrillation with rapid ventricular response, nonspecific ST abnormality 07/14/[address] James: stable AF, no concerns 09/08/2015 Dr. James [place]: cardiac cath: no disease 09/08/[address] [facility] [address] 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 Huston TBI (traumatic brain injury) ([facility]) 2 times PAST SURGICAL HISTORY Procedure Laterality [...] Other and Unspecified Nature Left Atrial Enlargement Residential Current Use of Anticoagulant Therapy Migraine Headache [...] METABOLIC PANEL - LIPID PANEL BASIC 7. 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 Author Type: Physician Credit Operations Specialist Type: Progress Notes Filed: 11/28/2023 09:49 Note Text: 68 year old male with c/o 6-month follow-up Last visit Dr. 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 Aric Huston Current medications: Apixaban 5 mg twice daily Divalproex DR 500 mg 1 tablet twice daily No seizures. 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 no disease 09/08/[address] [facility] [address] James: - primary rhythm atrial fibrillation [...] Lymph 1.00 - 4.00 k/uL 1.57 2.35 [place]% % 9.8 11.3 Abs [place] <0.87 k/uL 0.66 0.98 (H) Eosin% % [...] / Complications: hypertension, hyperlipide (more content not included)...[facility] Tele[facility] encounter Note* Telephone Encounter - [...] Yolanda Bryant November 08, 2023 10:11 AM [facility]06-11-[facility] Miscellaneous Notes* Telephone Encounter - Yolanda [...] 08, 2023 10:11 AM documented in this encounterProvidence Hospital06-03-2024 Telephone encounter Note * Telephone Encounter [...] 11/22/2023 Please advise. Thank you. Bree Johnson. [facility]06-03-2024 Miscellaneous Notes* Telephone Encounter - Bree [...] Thank you. Bree Johnson. documented in this encounterProvidence Hospital07-11-2023 History of Present illness Narrative* Sarah Leoen PA - 12/07/2022 2:05 PM EDT This note was created using [employer]igo Identitywareriter. Subjective Reina Sullivan is a 67 year [...] HISTORY Diagnosis Date Atrial fibrillation ([facility]) Dr. 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 Huston TBI (traumatic brain injury) ([facility]) 2 times PAST SURGICAL HISTORY Procedure Laterality [...] ER evaluation. 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 Huston TBI (traumatic brain injury) ([facility]) 2 times PAST SURGICAL HISTORY Procedure Laterality [...] - ICD9: 416.0, ICD10: I27.0 - per [place] cardiology 4. Primary hypertension - ICD9: 401.9, [...] YATES in two weeks. documented in this encounterProvidence Hospital01-20-2023 Miscellaneous Notes* Telephone Encounter - Karla [...] patient. Jesi Quintero Pss documented in this encounterProvidence Hospital01-13-2023 History of Present illness Narrative* Leanna Benavidez RN - 06/11/2022 11:32 AM EST ACM COLEMAN RN Afsaneh Mercedes, My name is Leanna Benavidez RN. I am calling from [facility]. Your Healthcare team and Medicare provider would like to assist in your success in taking prescribed medications for cardiovascular health and/or diabetes. Is this a good time to talk with you? NO Called patient, home line no answer just rings, home phone [phone] not working Thank you - Leanna Benavidez RN Patient identified by name and date of . Patient Attributed To: QAE Payer: [facility] Reason for review or outreach: Medication Adherence Medication Adherence Review Details: Diabetes Summary / Findings: As per above Action Taken: Data submitted to Payer Other Contact made with patient: No, Unable to leave message Leanna Benavidez RN Signature: Leanna Benavidez RN documented in this encounterProvidence Hospital11-29-2022 Miscellaneous Notes* Telephone Encounter - Vickie Badillo Pss - 04/27/2022 1:45 PM EST The patient declined an appointment with general JARRETT. Soonest appointment at [place] is 08/16/22. Please advise. * Telephone Encounter - Berenice Weston Pss - 04/27/2022 11:49 AM EST Patient returned call and stated there is no way he can drive, or his friend is able to drive all the way to [place] for an appt. Requesting call back from nurse to discuss soonest appt herein [place]. Please advise. * Telephone Encounter - Vickie [...] studies. Aric Huston MD documented in this encounterProvidence Hospital11-28-2022 History of Present illness Narrative* Felicita [...] DEPARTMENT: MR; Exam(s) Completed: Head: Routine Brain [place] MRA Neck: Carotids MRA, bilateral PERIPHERAL IV DATA: Not applicable SIGNED BY: RT Rajendra(R) April 26, 2022 1:58 PM documented in this encounterProvidence Hospital11-16-2022 Miscellaneous Notes* Telephone Encounter - Jovana [...] Provider: Jaison MAX PA-C documented in this encounterProvidence Hospital11-14-2022 Miscellaneous Notes* Telephone Encounter - Aric [...] ER. Aric Huston MD documented in this encounterProvidence Hospital11-14-2022 History of Present illness Narrative* Aric [...] 12, 2022 3:18 PM documented in this encounterProvidence Hospital11-14-2022 Instructions* Patient Instructions* Marni Hare, OD - 04/12/2022 3:12 PM EST Use Refresh or Systane gel nightly in both eyes documented in this encounterProvidence Hospital11-04-2022 Miscellaneous Notes* Telephone Encounter - Pam [...] and pasted from Results documented in this encounterProvidence Hospital11-03-2022 History of Present illness Narrative* Aric [...] ordered. Has not been following with his writing center director. 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 Huston TBI (traumatic brain injury) 2 [...] AAA Aric Zapien MD documented in this encounterProvidence Hospital10-18-2022 Miscellaneous Notes* Telephone Encounter - Vania [...] Thanks, Janusz Max PA-C documented in this encounterProvidence Hospital10-11-2022 History of Present illness Narrative* Lolis [...] don't fit properly- does fine without them. [place] anxious, stressed, angry, irritable, lonely, isolated, or [...] in the medical record. Dr. Huston neurology [place] cardiology Medical/Family history review Reviewed and updated [...] Lymph 1.00 - 4.00 k/uL 1.87 1.93 [place]% % 9.0 7.2 Abs [place] <0.87 k/uL 0.78 0.54 Eosin% % 0.9 [...] OPHTHALMOLOGY Jaison Max PA-C documented in this encounterProvidence Hospital10-11-2022 History of Past illness Narrative* Problem Noted Date Diagnosed Date Resolved Date Encounter for hepatitis C sc reening test for low risk patient 03/09/2022 09/30/2022 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 status epilepticus 06/27/2020 03/25/2021 Hyperglycemia 03/23/2017 03/26/2021 documented as of this encounter (statuses as of 04/03/2023) [facility] History of Present illness Narrative* Aric [...] prior head trauma. Prior records requested from [facility] Unclear if currentsymptoms described above of [...] have yet to receive requested records from [facility] and I have asked the patient to contact that practice to aid in retrieval of records. Pt states since last visit he had some strokes, 3 of them, for which he was treated in [place] and up in [place] or something like that. 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 Aric uHston MD I spent a total of 32 minutes on the date of the service which included preparing to see the patient, [id number] patient care, completing clinical documentation, obtaining and/or reviewing separately obtained history, performing a medically appropriate examination, counseling and educating the pat ient/family/caregiver, ordering medications, tests, or procedures, and communicating results to thepatient/family/caregiver. documented in this encounterProvidence Hospital10-07-2022 Miscellaneous Notes* Telephone Encounter - Kayleen [...] and advise. Mecca Orozco documented in this encounterProvidence Hospital09-27-2022 History of Present illness Narrative* Joceline Waldron RN - 02/23/2022 2:29 PM EDT ACM COLEMAN RN Action/FYI: Chart review completed for Medication Adherence - Statin Use in Patients with Cardiovascular Disease at the request of [employer] ([facility]). No statin order noted. No statin exclusionary [...] with Cardiovascular Disease is based on 2013 [place] [employer]/[place] [employer] (ACC/AHA) guidelines which recommends moderate tohigh-intensity statin therapy for prevention of ASCVD events. Patient Attributed To: QAE Payer: [facility] Reason for review or outreach: Medication Adherence Medication Adherence Review Details: Cholesterol, Hypertension, and Diabetes Summary / Findings: See Above Action Taken: Encounter routed to provider Contact made with patient: No, Chart review only. 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 Huston TBI (traumatic brain injury) ([facility]) 2 times PAST SURGICAL HISTORY Procedure Laterality [...] 1 2 COMBO(AG/AB),WITH REFLEX TO DIFFERENTIATION Aric YATES in six months and prn. Medical Decision Making documented [facility] History of Present illness Narrative* Machelle [...] 12, 2021 2:38 PM documented in this encounterProv[facility] History of Past illness Narrative* Problem Noted Date Resolved Date 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 status epilepticus 06/27/2020 03/25/2021 Hyperglycemia 03/23/2017 03/26/2021 documented as of this encounter (statuses as of 09/11/2021) [facility] of Past illness Narrative* Problem Noted Date Resolved Date 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 status epilepticus 06/27/2020 03/25/2021 Hyperglycemia 03/23/2017 03/26/2021 documented as of this encounter (statuses as of 09/24/2021) [facility] of Past illness Narrative* Problem Noted Date Resolved Date 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 status epilepticus 06/27/2020 03/25/2021 Hyperglycemia 03/23/2017 03/26/2021 documented as of this encounter (statuses as of 03/05/2022) [address]29-2021 History of Past illness Narrative* Problem Noted Date Resolved Date 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 status epilepticus 06/27/2020 03/25/2021 Hyperglycemia 03/23/2017 03/26/2021 documented as of this encounter (statuses as of 03/08/2022) [address]29-2021 History of Past illness Narrative* Problem Noted Date Resolved Date 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 status epilepticus 06/27/2020 03/25/2021 Hyperglycemia 03/23/2017 03/26/2021 documented as of this encounter (statuses as of 03/10/2022) [address]29-2021 History of Past illness Narrative* Problem Noted Date Resolved Date 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 status epilepticus 06/27/2020 03/25/2021 Hyperglycemia 03/23/2017 03/26/2021 documented as of this encounter (statuses as of 03/16/2022) [address]29-2021 History of Past illness Narrative* Problem Noted Date Resolved Date 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 status epilepticus 06/27/2020 03/25/2021 Hyperglycemia 03/23/2017 03/26/2021 documented as of this encounter (statuses as of 03/26/2022) [address]29-2021 History of Past illness Narrative* Problem Noted Date Resolved Date 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 status epilepticus 06/27/2020 03/25/2021 Hyperglycemia 03/23/2017 03/26/2021 documented as of this encounter (statuses as of 04/01/2022) [address]29-2021 History of Past illness Narrative* Problem Noted Date Resolved Date 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 status epilepticus 06/27/2020 03/25/2021 Hyperglycemia 03/23/2017 03/26/2021 documented as of this encounter (statuses as of 04/02/2022) [address]29-2021 History of Past illness Narrative* Problem Noted Date Resolved Date 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 status epilepticus 06/27/2020 03/25/2021 Hyperglycemia 03/23/2017 03/26/2021 documented as of this encounter (statuses as of 04/13/2022) [address]29-2021 History of Past illness Narrative* Problem Noted Date Resolved Date 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 status epilepticus 06/27/2020 03/25/2021 Hyperglycemia 03/23/2017 03/26/2021 documented as of this encounter (statuses as of 04/13/2022) [address]29-2021 History of Past illness Narrative* Problem Noted Date Resolved Date 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 status epilepticus 06/27/2020 03/25/2021 Hyperglycemia 03/23/2017 03/26/2021 documented as of this encounter (statuses as of 04/14/2022) [address]29-2021 History of Past illness Narrative* Problem Noted Date Resolved Date 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 status epilepticus 06/27/2020 03/25/2021 Hyperglycemia 03/23/2017 03/26/2021 documented as of this encounter (statuses as of 04/27/2022) [address]-2021 History of Past illness Narrative* Problem Noted Date Resolved Date 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 status epilepticus 06/27/2020 03/25/2021 Hyperglycemia 03/23/2017 03/26/2021 documented as of this encounter (statuses as of 06/11/2022) [facility] of [facility] illness Narrative* Problem Noted Date Resolved Date Intractable epilepsy without status epilepticus 06/27/2020 03/25/2021 Hyperglycemia 03/23/2017 03/26/2021 documented as of this encounter (statuses as of 06/18/2022) [facility] Hospital[facility] summary Author Liza Cho [facility] Note Date/Time March 08, 2025 1 2:39pm [facility] Medical Records Department [address] [place] [address] Emergency Department Summary 03/08/25 MR#: [id number] Acct: [id number] Name: REINA SULLIVAN Rep #:[id number] : [...] ambulate, has not walked since the fall. [facility] Medical History Essential hypertension Hx of thyroiditis Type 2 diabetes mellitus TIA (transient ischemic attack) [place] (myocardial infarction) Hyperlipidemia Atrial fibrillation with rapid [...] ischemia and severe volume loss. Reading Location: [facility] Cervical Spine CT 03/08/25 11:22 IMPRESSION: No evidence of acute fracture. Spondylosis. Reading Location: [address] Discharge Plan Triage Chief Complaint: Head [...] worsen or new symptoms develop. Print Language: Bengali Disposition Disposition: Home, Self Care What to do if you have Problems For any increased pain, shortness of breath, bleeding, nausea or vomiting, chestpain, or any unexpected problems, contact your Primary Care Provider. Call [facility] ([phone]) or report to the closest Emergency Room. Call 911 if necessary. 03/08/25 1239 <Electronically signed by Liza Cho MD> Cosigner Signature (if applicable): CC: Dr. Aric Zapien MD ~ Signed [facility] Work Phone: Evaluation note* Diagnosis Type 2 diabetes mellitus without complication, without long-term current use of insulin (HCC) [facility] in this encounter [facility]* Diagnosis 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 (HCC)- Primary [...] specified viral diseases [facility] this encounter [facility]* Diagnosis Seizures (HCC) Other convulsions documented in this encounter [facility] HospitalEvaluation noteNo assessment information availableWLouis Stokes [facility] Work Phone: Evaluation note* Diagnosis Intractable epilepsy without status epilepticus, unspecified epilepsy type (HCC)- Primary Seizures (HCC) Other convulsions [facility] this encounter [facility]* Diagnosis Medicare annual wellness [...] lateral visual alexandra documented in this encounter [facility]* Diagnosis 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 (HCC)- Primary [...] unspecified cardiovascular conditions [facility]* Diagnosis Nonintractable epilepsy without status epilepticus, unspecified epilepsy type (HCC)- Primary documented in this encounter [facility]* Diagnosis Left homonymous inferior quadrantanopia- Primary Myopia, bilateral Myopia Presbyopia Regular astigmatism of left eye Regular astigmatism Combined forms of age-related cataract of both eyes Other and combined forms of senile cataract Punctate keratitis, bilateral [facility] this encounter [facility]* Diagnosis Other symptoms and signs involving the nervous system- Primary documented in this encounter [facility]* Diagnosis Elevated serum creatinine- Primary Other nonspecific findings on examination of blood documented in this encounter [facility] note* Diagnosis Seizures (HCC) Other convulsions documented in this encounter [facility]* Diagnosis Seizures (HCC)- Primary Other [...] Dermatophytosis of nail documented in this encounter [facility]* Diagnosis Sore throat- Primary Acute pharyngitis URI, acute Acute upper respiratory infections of unspecified site [facility]* Diagnosis Intractable epilepsy without status epilepticus, unspecified epilepsy type (HCC) Other symptoms and signs involving the nervous system [facility]* Diagnosis Onset Date Resolution Status Atrial fibrillation with rapid ventricular response acute Essential hypertension chron ic Valvular heart disease chron ic [facility] Work Phone: Evaluation note* Diagnosis Pulmonary hypertension (HCC) Other chronic pulmonary heart diseases Edema, unspecified type documented in this encounter [facility]* Diagnosis Type 2 diabetes mellitus without complication, without long-term current use of insulin (HCC) documented [facility] this 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, late effect of cerebrovascular disease Seizures (HCC) Other convulsions Mitral valve insufficiency, unspecified etiology Non-rheumatic tricuspid valve insufficiency Tricuspid valve disorders, specified as nonrheumatic Left atrial enlargement Cardiomegaly 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 (HCC) Atrial fibrillation 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 of 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 Long-term (current) [...] disease of nail documented in this encounter [facility]* Diagnosis Acute right ankle pain Foot pain, right Pain in limb documented [facility] this [facility]* Diagnosis Seizures (HCC) Other convulsions documented in this encounter [facility] note* Diagnosis Type 2 diabetes mellitus without complication, without long-term current use of insulin (HCC)- Primary Fall, initial encounter Screening for lipid disorders Acute low back pain without sciatica, unspecified back pain laterality Fall, initial encounter documented [facility] this encounter [facility]* Diagnosis Compression fracture of L1 vertebra, initial encounter (HCC)- Primary documented in this encounter [facility] note* Diagnosis Type 2 diabetes mellitus without complication, without long-term current use of insulin (HCC)- Primary [facility] Dis[facility] instructionsAdditional Instructions Your evaluation in [...] if your symptoms worsen or new symptoms develop.[facility] Work Phone: Reason for referral (narrative)* Outpatient Procedure (Routine) - Pending Review Specialty Diagnoses / Procedures Referred By Jacqueline cummings Referred To Contact [facility] Diagnoses 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 status epilepticus, unspecified epilepsy type (HCC) Procedures EPIL EEG ROUTINE ELECTROENCEPHALOGRAM REC COMA/SLEEP ONLY Aric Huston Jr., MD [address] [facility] [address] [place] [address] [facility] [place] [address] [place] [address] Referral ID Status Reason Start Date Expiration Date Visits Requested Visits Authorized [id number] Pending Review Auto-Generat ed Referral 2 03/08/2023 1 1 * MRI/CT (Routine) - Authorized Specialty Diagnoses / Procedures Referred By Contac t Referred To Contact MR IMAGING Diagnoses Intractable epilepsy without status epilepticus, unspecified epilepsy type (HCC) Procedures MRI BRAIN WO IVCON MRI BRAIN BRAIN STEM W/O CONTRAST MATERIAL Aric Huston Jr., MD [address] [address] Mr Imaging Referral ID Status Reason Start Date Expiration Date Visits Requested Visits Authorized [id number] Authorized Auto-Generat ed Referral 2 04/07/2023 1 1 [facility] for referral (narrative)* Outpatient Procedure (Routine) - Pending Review Specialty Diagnoses / Procedures Referred By Contac t Referred To Contact [facility] Diagnoses 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 (HCC) Non-rheumatic tricuspid valve insufficiency Mitral valve insufficiency, unspecified etiology Primary pulmonary HTN (HCC) Enlarged thoracic aorta (HCC) Procedures ECHO ECHO TTHRC R-T 2D W/WOM-MODE COMPL SPEC&COLR D Jaison Max PA-C [address] [place] [address] [facility] [address] [address] Referral ID Status Reason Start Date Expiration Date Visits Requested Visits Authorized [id number] Pending Review Auto-Generat ed Referral 2 03/10/2023 1 1 * Consult, Test, Treat (Routine) - Pending Review Specialty Diagnoses / Procedures Referred By Contac t Referred To Contact Dermatology Diagnoses Multiple atypical skin moles Procedures CONSULT TO DERMATOLOGY OFFICE/OUTPATIENT [facility] 60-74 MINUTES Jaison Max PA-C [address] [place] [address] Referral ID Status Reason Start Date Expiration Date Visits Requested Visits Authorized [id number] Pending Review PCP Requested Referral 2 03/09/2023 1 1 * Consult, Test, Treat (Routine) - Authorized Specialty Diagnoses / Procedures Referred By Contac t Referred To Contact Ophthalmology Diagnoses Presbyopia of both eyes Loss of lateral visual alexandra Procedures CONSULT TO OPHTHALMOLOGY OFFICE/OUTPATIENT [facility] 60-74 MINUTES Jaison Max PA-C [address] [place] [address] Referral ID Status Reason Start Date Expiration Date Visits Requested Visits Authorized [id number] Authorized PCP Requested Referral 2 03/09/2023 1 1 [facility] for referral (narrative)* Diagnostic Procedure Only (Routine) - Authorized Specialty Diagnoses / Procedures Referred By Jacqueline t Referred To Contact US IMAGING Diagnoses Screening for AAA (abdominal aortic aneurysm) Procedures US SCREENING FOR AAA (2017) US ABDOMINAL AORTA REAL TIME SCREEN STUDY AAA Aric Zapien MD [address] [place] [address] Us Imaging Referral ID Status Reason Start Date Expiration Date Visits Requested Visits Authorized [id number] Authorized Auto-Generat ed Referral 04/01/2022 05/01/2023 1 1 * Consult, Test, Treat (Routine) - Pending Review Specialty Diagnoses / Procedures Referred By Contac t Referred To Contact Cardiology Diagnoses 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 (HCC) Enlarged thoracic aorta (HCC) Procedures CONSULT TO CARDIOLOGY OFFICE/OUTPATIENT [facility] 60-74 MINUTES Aric Zapien MD [address] [place] [address] Referral ID Status Reason Start Date Expiration Date Visits Requested Visits Authorized [id number] Pending Review PCP Requested Referral 04/01/2022 04/01/2023 1 1 [facility] for referral (narrative)* Outpatient Procedure (Routine) - Authorized Specialty Diagnoses / Procedures Referred By Contac t Referred To Contact [facility]ART [facility] Diagnoses Peripheral vascular disease (HCC) Procedures PVR LEG ONAM VAS LAB NON-INVASIVE PHYSIOLOGIC STUDY EXTREMITY 3 Aric Lopez MD [address] [place] [address] [facility] [address] [place] [address] Referral ID Status Reason Start Date Expiration Date Visits Requested Visits Authorized [id number] Authorized Auto-Generat ed Referral 09/30/2022 09/30/2023 1 1 * Consult, Test, Treat (Routine) - Authorized Specialty Diagnoses / Procedures [facility] Referred To Contact Podiatry Diagnoses Type 2 diabetes mellitus without complication, without long-term current use of insulin (HCC) Pain due to onychomycosis of nail Procedures CONSULT TO PODIATRY OFFICE/OUTPATIENT NEW HIGH MDM 60-74 MINUTES Aric Zapien MD [address] [place] [address] Referral ID Status Reason Start Date Expiration Date Visits Requested Visits Authorized [id number] Authorized PCP Requested Referral 09/30/2022 09/30/2023 1 1 * Diagnostic Procedure Only (Routine) - Authorized Specialty Diagnoses / Procedures Referred By Contac t Referred To Contact US IMAGING Diagnoses Screening for AAA (abdominal aortic aneurysm) Procedures US SCREENING FOR AAA (2017) US ABDOMINAL AORTA REAL TIME SCREEN STUDY AAA Aric Zapien MD [address] [place] [address] Us Imaging Referral ID Status Reason Start Date Expiration Date Visits Requested Visits Authorized [id number] Authorized Auto-Generat ed Referral 09/30/2022 10/30/2023 1 1 [facility] for referral (narrative)* Diagnostic Procedure Only (Urgent) - Closed Specialty Diagnoses / Procedures Referred By Contac t Referred To Contact XR IMAGING Diagnoses Foot pain, right Procedures XR FOOT GENERAL 3V AP/LAT/OBL RT X-RAY FOOT MINIMUM 3 VIEWS Quang Bowman MD [address] [place] [address] [place] [address] Referral ID Status Reason Start Date Expiration Date V isits Requested Visits Authorized [id number] Closed Auto-Generate d Referral 03/12/2021 04/11/2022 1 1 * Diagnostic Procedure Only (Urgent) - Closed Specialty Diagnoses / Procedures Referred By Contac t Referred To Contact XR IMAGING Diagnoses Acute right ankle pain Procedures XR ANKLE GENERAL 3V AP/LAT/OBL RT X-RAY ANKLE MINIMUM 3 VIEWS Quang Bowman MD [address] [place] [address] [place] [address] Referral ID Status Reason Start Date Expiration Date V isits Requested Visits Authorized [id number] Closed Auto-Generate d Referral 03/12/2021 05/29/2021 1 1 [facility] for referral (narrative)* Diagnostic Procedure Only (Urgent) - Closed Specialty Diagnoses / Procedures Referred By Contac t Referred To Contact XR IMAGING Diagnoses Chronic low back pain without sciatica, unspecified back pain laterality Fall, initial encounter Procedures XR LUMBAR GENERAL 3V AP/LAT/L5-S1 RADEX SPINE LUMBOSACRAL 2/3 VIEWS Florinda Stevenson, LEAD GENERATION SPECIALIST.FEDERAL LAW CLERK [address] [place] [address] [place] [address] Referral ID Status Reason Start Date Expiration Date V isits Requested Visits Authorized [id number] Closed Auto-Generate d Referral 06/22/2024 07/22/2025 1 1 [facility] ([facility]ative)No reason for referral information availableWLouis Stokes [facility] Work Phone: Reason for visit Narrative* Diagnostic Procedure Only (Urgent) - Closed Specialty Diagnoses / Procedures Referred By Contac t Referred To Contact XR IMAGING Diagnoses Acute right ankle pain Procedures XR ANKLE GENERAL 3V AP/LAT/OBL RT X-RAY ANKLE MINIMUM 3 VIEWS Quang Bowman MD [address] [place] [address] [place] [address] Referral ID Status Reason Start Date Expiration Date V isits Requested Visits Authorized [id number] Closed Auto-Generate d Referral 03/12/2021 05/29/2021 1 1 [facility] Reason for Referral Specialty Diagnoses / Procedures Referred By Contac t Referred To Contact Ophthalmology Diagnoses Type 2 diabetes mellitus without complication, without long-term current use of insulin (HCC) Procedures CONSULT TO OPHTHALMOLOGY OFFICE/OUTPATIENT [facility] 60-74 MINUTES Aric Zapien MD [address] [place] [address] Referral ID Status Reason Start Date Expiration Date Visits Requested Visits Authorized [id number] Authorized PCP Requested Referral 09/24/2021 09/24/2022 1 1 Specialty Diagnoses / Procedures Referred By Contac t Referred To Contact Neurology Diagnoses Seizures (HCC) Procedures CONSULT TO NEUROLOGY OFFICE/OUTPATIENT [facility] 60-74 MINUTES Aric Zapien MD [address] [place] [address] Referral ID Status Reason Start Date Expiration Date Visits Requested Visits Authorized [id number] Pending Review PCP Requested Referral 09/24/2021 09/24/2022 1 1 Specialty Diagnoses / Procedures Referred By Contac t Referred To Contact Cardiology Diagnoses 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 (HCC) Primary pulmonary HTN (HCC) Enlarged thoracic aorta (HCC) Mitral valve insufficiency, unspecified etiology Non-rheumatic tricuspid valve insufficiency Procedures CONSULT TO CARDIOLOGY Aric Zapien MD [address] [place], [place] [id number] Referral ID Status Reason Start Date Expiration Date Visits Requested Visits Authorized [id number] Ref Not Required PCP Requested Referral 09/24/2021 09/24/2022 1 1 Specialty Diagnoses / Procedures Referred By Contac t Referred To Contact MR IMAGING Diagnoses Other symptoms and signs involving the nervous system Procedures MRA CAROTID WO IVCON MRA, NECK; W/O CONTRAST Aric Huston Jr., MD [address] [facility] [address] [place] [address] Mr Imaging Referral ID Status Reason Start Date Expiration Date Visits Requested Visits Authorized [id number] Pending Review Auto-Generat ed Referral 05/12/2023 1 1 Specialty Diagnoses / Procedures Referred By Contac t Referred To Contact MR IMAGING Diagnoses Other symptoms and signs involving the nervous system Procedures MRA BRAIN WO IVCON MRA, HEAD W/O CONTRAST Aric Huston Jr., MD [facility] [address] [place] [address] Mr Imaging Referral ID Status Reason Start Date Expiration Date Visits Requested Visits Authorized [id number] Pending Review Auto-Generat ed Referral 05/12/2023 1 1 Specialty Diagnoses / Procedures Referred By Contac t Referred To Contact MR IMAGING Diagnoses Other symptoms and signs involving the nervous system Procedures MRA CAROTID WO IVCON MRA, NECK; W/O CONTRAST Aric Huston Jr., MD [facility] [address] [place] [address] Mr Imaging [facility] Referral ID Status Reason Start Date Expiration Date V isits Requested Visits Authorized [id number] Closed Auto-Generate d Referral 04/12/2022 05/12/2023 1 1 Specialty Diagnoses / Procedures [facility] Referred To Contact MR IMAGING Diagnoses Other symptoms and signs involving the nervous system Procedures MRA BRAIN WO IVCON MRA, HEAD W/O CONTRAST Aric Huston Jr., MD [address] [facility] [address] [place] [address] [place] [address] Referral ID Status Reason Start Date Expiration Date V isits Requested Visits Authorized [id number] Closed Auto-Generate d Referral 04/12/2022 05/12/2023 1 1 Specialty Diagnoses / Procedures Referred By Contac t Referred To Contact MR IMAGING Diagnoses Intractable epilepsy without status epilepticus, unspecified epilepsy type (HCC) Procedures MRI BRAIN WO IVCON MRI BRAIN BRAIN STEM W/O CONTRAST MATERIAL Aric Huston Jr., MD [address] [address] [place] [address] Referral ID Status Reason Start Date Expiration Date V isits Requested Visits Authorized [id number] Closed Auto-Generate d Referral 03/08/2022 04/07/2023 1 1 Specialty Diagnoses / Procedures Referred By Contac t Referred To Contact Podiatry Diagnoses Incurvated nail Procedures CONSULT TO PODIATRY OFFICE/OUTPATIENT [facility] 60 MINUTES Jaison Max PA-C [address] [place] [address] Referral ID Status Reason Start Date Expiration Date Visits Requested Visits Authorized [id number] Authorized PCP Requested Referral 11/22/2023 11/21/2024 1 1 Specialty Diagnoses / Procedures Referred By Contac t Referred To Contact US IMAGING Diagnoses Screening for abdominal aortic aneurysm Procedures US SCREENING FOR AAA (2017) US ABDOMINAL AORTA REAL TIME SCREEN STUDY AAA Jaison Max PA-C [address] [place] [address] [place] [address] Referral ID Status Reason Start Date Expiration Date Visits Requested Visits Authorized [id number] Pending Review Auto-Generat ed Referral 11/22/2023 12/21/2024 1 1 Specialty Diagnoses / Procedures Referred By Contac t Referred To Contact Diagnoses Compression fracture of L1 vertebra, initial encounter ([facility]) Procedures [facility] Florinda Stevenson, LEAD GENERATION SPECIALIST.FEDERAL LAW CLERK [address] [place] [address] Referral ID Status Reason Start Date Expiration Date Visits Requested Visits Authorized [id number] New Request PCP Requested Referral 06/22/2024 09/20/2024 [...] 4:00am LAB WORK July 23, 2024 5:00am [facility] WORK August 27, 2024 4 :00am [...] 4:00am LAB WORK July 23, 2024 5:00am [facility] LAB WORK August 27, 2024 4 :00am [email or web address] September 26, 2024 5:1 6am Chief Complaint Admit Date [facility] LAB WORK November 27, 2024 5:0 0am LABWORK January 02, 2025 5:0 0am LABWORK January 10, 2025 9: 50pm [facility] LAB WORK January 21, 2025 4:00am [facility] LAB WORK January 31 5:00am Chief Complaint Admit Date [facility] LAB WORK November 27, 2024 5:0 0am LABWORK January 02, 2025 5:0 0am LABWORK January 10, 2025 9: 50pm [facility] LAB WORK January 21, 2025 4:00am [facility] LAB WORK January 31 5:00am head injury [...] No March 06 2 11:14am Power of Spring Winder No March 06 022 11:14am Advance Directive Response Recorded Date/ Time Advance Directives No June 2:48pm Living Will No March 06 2 10:14am Power of Spring Winder No March 06 022 10:14am Advance Directive Response Recorded Date/ Time Living Will No July 09 12:44pm Do you have a Healthcare Power of Spring Winder? No July 09, 2024 12:44pm Advance Directives No June 3:48pm Advance Directive Response Recorded Date/ Time Advance Directives No June 3:48pm Advance Directive Response Recorded Date/ Time Do you have a Healthcare Power of Spring Winder? No March 08, 2025 11:11am Advance Directives [...] or prosecute any alcohol or drug abuse patient.[facility] HospitalIn the event this information is protected by the Federal Confidentiality of Alcohol and Drug Abuse Patient Records regulations: The Federal rules restrict any use of the information to criminally investigate or prosecute any alcohol or drug abuse patient.[facility] HospitalIn the event this information is protected by the Federal Confidentiality of Alcohol and Drug Abuse Patient Records regulations: The Federal rules restrict any use of the information to criminally investigate or prosecute any alcohol or drug abuse patient.[facility] HospitalIn the event this information is protected by the Federal Confidentiality of Alcohol and Drug Abuse Patient Records regulations: The Federal rules restrict any use of the information to criminally investigate or prosecute any alcohol or drug abuse patient.[facility] HospitalIn the event this information is protected by the Federal Confidentiality of Alcohol and Drug Abuse Patient Records regulations: The Federal rules restrict any use of the information to criminally investigate or prosecute any alcohol or drug abuse patient.[facility] HospitalIn the event this information is protected by the Federal Confidentiality of Alcohol and Drug Abuse Patient Records regulations: The Federal rules restrict any use of the information to criminally investigate or prosecute any alcohol or drug abuse patient.[facility] HospitalIn the event this information is protected by the Federal Confidentiality of Alcohol and Drug Abuse Patient Records regulations: The Federal rules restrict any use of the information to criminally investigate or prosecute any alcohol or drug abuse patient.[facility] HospitalIn the event this information is protected by the Federal Confidentiality of Alcohol and Drug Abuse Patient Records regulations: The Federal rules restrict any use of the information to criminally investigate or prosecute any alcohol or drug abuse patient.[facility] HospitalIn the event this information is protected by the Federal Confidentiality of Alcohol and Drug Abuse Patient Records regulations: The Federal rules restrict any use of the information to criminally investigate or prosecute any alcohol or drug abuse patient.[facility] HospitalIn the event this information is protected by the Federal Confidentiality of Alcohol and Drug Abuse Patient Records regulations: The Federal rules restrict any use of the information to criminally investigate or prosecute any alcohol or drug abuse patient.[facility] HospitalIn the event this information is protected by the Federal Confidentiality of Alcohol and Drug Abuse Patient Records regulations: The Federal rules restrict any use of the information to criminally investigate or prosecute any alcohol or drug abuse patient.[facility] HospitalIn the event this information is protected by the Federal Confidentiality of Alcohol and Drug Abuse Patient Records regulations: The Federal rules restrict any use of the information to criminally investigate or prosecute any alcohol or drug abuse patient.[facility] HospitalIn the event this information is protected by the Federal Confidentiality of Alcohol and Drug Abuse Patient Records regulations: The Federal rules restrict any use of the information to criminally investigate or prosecute any alcohol or drug abuse patient.[facility] HospitalIn the event this information is protected by the Federal Confidentiality of Alcohol and Drug Abuse Patient Records regulations: The Federal rules restrict any use of the information to criminally investigate or prosecute any alcohol or drug abuse patient.[facility] HospitalIn the event this information is protected by the Federal Confidentiality of Alcohol and Drug Abuse Patient Records regulations: The Federal rules restrict any use of the information to criminally investigate or prosecute any alcohol or drug abuse patient.[facility] HospitalIn the event this information is protected by the Federal Confidentiality of Alcohol and Drug Abuse Patient Records regulations: The Federal rules restrict any use of the information to criminally investigate or prosecute any alcohol or drug abuse patient.[facility] HospitalIn the event this information is protected by the Federal Confidentiality of Alcohol and Drug Abuse Patient Records regulations: The Federal rules restrict any use of the information to criminally investigate or prosecute any alcohol or drug abuse patient.[facility] HospitalIn the event this information is protected by the Federal Confidentiality of Alcohol and Drug Abuse Patient Records regulations: The Federal rules restrict any use of the information to criminally investigate or prosecute any alcohol or drug abuse patient.[facility] HospitalIn the event this information is protected by the Federal Confidentiality of Alcohol and Drug Abuse Patient Records regulations: The Federal rules restrict any use of the information to criminally investigate or prosecute any alcohol or drug abuse patient.[facility] HospitalIn the event this information is protected by the Federal Confidentiality of Alcohol and Drug Abuse Patient Records regulations: The Federal rules restrict any use of the information to criminally investigate or prosecute any alcohol or drug abuse patient.[facility] HospitalIn the event this information is protected by the Federal Confidentiality of Alcohol and Drug Abuse Patient Records regulations: The Federal rules restrict any use of the information to criminally investigate or prosecute any alcohol or drug abuse patient.[facility] HospitalIn the event this information is protected by the Federal Confidentiality of Alcohol and Drug Abuse Patient Records regulations: The Federal rules restrict any use of the information to criminally investigate or prosecute any alcohol or drug abuse patient.[facility] HospitalIn the event this information is protected by the Federal Confidentiality of Alcohol and Drug Abuse Patient Records regulations: The Federal rules restrict any use of the information to criminally investigate or prosecute any alcohol or drug abuse patient.[facility] HospitalIn the event this information is protected by the Federal Confidentiality of Alcohol and Drug Abuse Patient Records regulations: The Federal rules restrict any use of the information to criminally investigate or prosecute any alcohol or drug abuse patient.[facility] HospitalIn the event this information is protected by the Federal Confidentiality of Alcohol and Drug Abuse Patient Records regulations: The Federal rules restrict any use of the information to criminally investigate or prosecute any alcohol or drug abuse patient.[facility] HospitalIn the event this information is protected by the Federal Confidentiality of Alcohol and Drug Abuse Patient Records regulations: The Federal rules restrict any use of the information to criminally investigate or prosecute any alcohol or drug abuse patient.[facility] HospitalIn the event this information is protected by the Federal Confidentiality of Alcohol and Drug Abuse Patient Records regulations: The Federal rules restrict any use of the information to criminally investigate or prosecute any alcohol or drug abuse patient.[facility] HospitalIn the event this information is protected by the Federal Confidentiality of Alcohol and Drug Abuse Patient Records regulations: The Federal rules restrict any use of the information to criminally investigate or prosecute any alcohol or drug abuse patient.[facility] HospitalIn the event this information is protected by the Federal Confidentiality of Alcohol and Drug Abuse Patient Records regulations: The Federal rules restrict any use of the information to criminally investigate or prosecute any alcohol or drug abuse patient.[facility] HospitalIn the event this information is protected by the Federal Confidentiality of Alcohol and Drug Abuse Patient Records regulations: The Federal rules restrict any use of the information to criminally investigate or prosecute any alcohol or drug abuse patient.[facility] HospitalIn the event this information is protected by the Federal Confidentiality of Alcohol and Drug Abuse Patient Records regulations: The Federal rules restrict any use of the information to criminally investigate or prosecute any alcohol or drug abuse patient.[facility] HospitalIn the event this information is protected by the Federal Confidentiality of Alcohol and Drug Abuse Patient Records regulations: The Federal rules restrict any use of the information to criminally investigate or prosecute any alcohol or drug abuse patient.[facility] HospitalIn the event this information is protected by the Federal Confidentiality of Alcohol and Drug Abuse Patient Records regulations: The Federal rules restrict any use of the information to criminally investigate or prosecute any alcohol or drug abuse patient.[facility] HospitalIn the event this information is protected by the Federal Confidentiality of Alcohol and Drug Abuse Patient Records regulations: The Federal rules restrict any use of the information to criminally investigate or prosecute any alcohol or drug abuse patient.[facility] HospitalIn the event this information is protected by the Federal Confidentiality of Alcohol and Drug Abuse Patient Records regulations: The Federal rules restrict any use of the information to criminally investigate or prosecute any alcohol or drug abuse patient.[facility] HospitalIn the event this information is protected by the Federal Confidentiality of Alcohol and Drug Abuse Patient Records regulations: The Federal rules restrict any use of the information to criminally investigate or prosecute any alcohol or drug abuse patient.[facility] Care Teams (unrecognized sec tion and content) Loom Winder Tender Relationship Specialty Start Date End Date Aric Zapien MD [address] [place], [place] [id number] PCP - General Family Practice 07/23/15 Loom Winder Tender Relationship Specialty Start Date End Date Aric Zapien MD [address] [place] [address] PCP - General Family Practice 07/23/15 Loom Winder Tender Relationship Specialty Start Date End Date Aric Zapien MD [address] [place] [address] PCP - General Family Medicine 07/23/15 Loom Winder Tender Relationship Specialty Start Date End Date Aric Zapien MD [address] [place] [address] PCP - General Family Medicine 07/23/15 Loom Winder Tender Relationship Specialty Start Date End Date Aric Zapien MD [address] [place] [place] [address] PCP - General Family Medicine 07/23/15 Loom Winder Tender Relationship Specialty Start Date End Date Aric Zapien MD [address] [place] [address] PCP - General Family Medicine 07/23/15 Loom Winder Tender Relationship Specialty Start Date End Date Aric Zapien MD [address] [place] [address] PCP - General Family Medicine 07/23/15 Loom Winder Tender Relationship Specialty Start Date End Date Aric Zapien MD [address] [place] [address] PCP - General Family Medicine 07/23/15 Loom Winder Tender Relationship Specialty Start Date End Date Aric Zapien MD [address] [place] [address] PCP - General Family Medicine 07/23/15 Loom Winder Tender Relationship Specialty Start Date End Date Aric Zapien MD [address] [place] [address] PCP - General Family Medicine 07/23/15 Loom Winder Tender Relationship Specialty Start Date End Date Aric Zapien MD [address] [place] [address] PCP - General Family Medicine 07/23/15 Loom Winder Tender Relationship Specialty Start Date End Date Aric Zapien MD [address] [place] [address] PCP - General Family Medicine 07/23/15 Loom Winder Tender Relationship Specialty Start Date End Date Aric Zapien MD [address] [place] [address] PCP - General Family Medicine 07/23/15 Loom Winder Tender Relationship Specialty Start Date End Date Aric Zapien MD [address] [place] [address] PCP - General Family Medicine 07/23/15 Loom Winder Tender Relationship Specialty Start Date End Date Aric Zapien MD [address] [place] [address] PCP - General Family Medicine 07/23/15 Loom Winder Tender Relationship Specialty Start Date End Date Aric Zapien MD [address] [place] [address] PCP - General Family Medicine 07/23/15 Loom Winder Tender Relationship Specialty Start Date End Date Aric Zapien MD [address] [place] [address] PCP - General Family Medicine 07/23/15 Loom Winder Tender Relationship Specialty Start Date End Date Aric Zapien MD [address] [place] [address] PCP - General Family Medicine 07/23/15 Team Status: Active Member Role Status Dates Dr. Aric Zapien MD Family Provider Active Dr. Aric Zapien MD Primary Care Provider Active Team Status: Inactive Member Role Status Dates Dr. Aric Zapien MD Primary Care Provider, Referring Provider Active Rakel Hodgson CLIENT SERVICES MANAGER, CLIENT SERVICES MANAGER-C Attending Provider Active Team Status: Inactive Member Role Status Dates Dr. Aric Zapien MD Primary Care Provider Active Rakel Hodgson CLIENT SERVICES MANAGER, CLIENT SERVICES MANAGER-C Attending Provider, Referring P roberto Active Loom Winder Tender Relationship Specialty Start Date End Date Aric Zapien MD [address] [place] [address] PCP - General Family Medicine 07/23/15 Loom Winder Tender Relationship Specialty Start Date End Date Aric Zapien MD [address] [place], [place] [address] PCP - General Family Medicine 07/23/15 Loom Winder Tender Relationship Specialty Start Date End Date Aric Zapien MD [address] [place], [place] [address] PCP - General Family Medicine 07/23/15 Loom Winder Tender Relationship Specialty Start Date End Date Aric Zapien MD [address] [place], [place] [address] PCP - General Family Medicine 07/23/15 Loom Winder Tender Relationship Specialty Start Date End Date Aric Zapien MD [address] [place] [address] PCP - General Family Medicine 07/23/15 Loom Winder Tender Relationship Specialty Start Date End Date Aric Zapien MD [address] [place] [address] PCP - General Family Medicine 07/23/15 Loom Winder Tender Relationship Specialty Start Date End Date Aric Zapien MD [address] [place] [address] PCP - General Family Medicine 07/23/15 Loom Winder Tender Relationship Specialty Start Date End Date Aric Zapien MD [address] [place], [place] [address] PCP - General Family Medicine 07/23/15 Meenakshi Galaviz, [email or web address] [address] [place] [address] Digital Pre Press Operator Family Medicine 05/07/24 Loom Winder Tender Relationship Specialty Start Date End Date Aric Zapien MD [address] [place] [address] PCP - General Family Medicine 07/23/15 Meenakshi Galaviz APRN.FEDERAL LAW CLERK [address] [facility] [place] [address] Digital Pre Press Operator Family Medicine 05/07/24 Florinda Stevenson LEAD GENERATION SPECIALIST.FEDERAL LAW CLERK [address] [place] [address] Digital Pre Press Operator Family Medicine 05/07/24 Loom Winder Tender Relationship Specialty Start Date End Date Aric Zapien MD [address] [place] [address] PCP - General Family Medicine 07/23/15 Meenakshi Galaviz LEAD GENERATION SPECIALIST.FEDERAL LAW CLERK [address] [facility] [place] [address] Digital Pre Press Operator Family Medicine 05/07/24 Florinda Stevenson LEAD GENERATION SPECIALIST.FEDERAL LAW CLERK [address] [place] [address] Digital Pre Press Operator Family Medicine 05/07/24 Loom Winder Tender Relationship Specialty Start Date End Date Aric Zapien MD [address] [place] [address] PCP - General Family Medicine 07/23/15 Meenakshi Galaviz LEAD GENERATION SPECIALIST.FEDERAL LAW CLERK [address] [facility] [place] [address] Digital Pre Press Operator Family Medicine 05/07/24 Florinda Stevenson LEAD GENERATION SPECIALIST.FEDERAL LAW CLERK [address] [place] [address] Digital Pre Press Operator Family Medicine 05/07/24 Loom Winder Tender Relationship Specialty Start Date End Date Aric Zapien MD [address] [place] [address] PCP - General Family Medicine 07/23/15 Meenakshi Galaviz APRN.FEDERAL LAW CLERK [address] [place] [address] Digital Pre Press Operator Family Medicine 05/07/24 Florinda Stevenson APRN.FEDERAL LAW CLERK [address] [place] [address] [facility] 05/07/24 Loom Winder Tender Relationship Specialty Start Date End Date Aric Zapien MD [address] [place] [address] PCP - General Family Medicine 07/23/15 Meenakshi Galaviz APRN.FEDERAL LAW CLERK [address] [place] [address] Digital Pre Press Operator Family Medicine 05/07/24 Florinda Stevenson LEAD GENERATION SPECIALIST.FEDERAL LAW CLERK [address] [place] [address] Digital Pre Press Operator Family Medicine 05/07/24 Loom Winder Tender Relationship Specialty Start Date End Date Aric Zapien MD [address] [place] [address] PCP - General Family Medicine 07/23/15 Meenakshi Galaviz APRN.FEDERAL LAW CLERK [address] [place] [address] [facility] 05/07/24 Florinda Stevenson APRN.FEDERAL LAW CLERK [address] [place] [address] [facility] 05/07/24 Team Status: Active Member Role Status [...] September 26, 2024 End: September 26, 2024 Loom Winder Tender Relationship Specialty Start Date End Date Aric Zapien MD [address] [place] [address] PCP - General Family Medicine 07/23/15 Meenakshi Galaviz, LEAD GENERATION SPECIALIST.FEDERAL LAW CLERK [address] [facility] [place] [address] [facility] 05/07/24 Florinda Stevenson, LEAD GENERATION SPECIALIST.FEDERAL LAW CLERK [address] [place] [address] [facility] 05/07/24 Team Status: Active Member Role/Relationship Status [...] Procedures 4C EST Aric Zapien MD [address] [place] [address] Aric Zapien MD [address] [place] [address] Referral ID Status Reason Start Date Expiration Date V isits Requested Visits Authorized [id number] Closed Financial Clearance Required - OON Payor [facility] Obtained 09/24/2021 05/29/2022 1 1 Reason Onset Date Comments Refill Request 03/04/2022 Reason Comments Follow Up Specialty Diagnoses / Procedures Referred By Contalphonse t Referred To Contact Neurology / FAMILY MEDICINE Diagnoses Seizures (HCC) Procedures CONSULT TO NEUROLOGY OFFICE/OUTPATIENT [facility] 60-74 MINUTES Aric Zapien MD [address] [place] [address] [facility] [address] [place] [address] Referral ID Status Reason Start Date Expiration Date V isits Requested Visits Authorized [id number] Closed PCP Requested Referral 12/25/2021 05/29/2022 1 1 Reason Comments Medicare Wellness Exam Reason Comments Orders Reason Onset Date Comments ACM COLEMAN RN 02/23/2022 SPC/SUPD rev. 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 Procedures CONSULT TO OPHTHALMOLOGY OFFICE/OUTPATIENT NEW HIGH MDM 60-74 MINUTES Jaison Max PA-C [address] [place] [address] Referral ID Status Reason Start Date Expiration Date V isits Requested Visits Authorized [id number] Closed PCP Requested Referral 03/09/2022 03/09/2023 1 [...] W/O CONTRAST MATERIAL Aric Huston Jr., MD 1987 [facility] [address] [place] [address] [place] [address] Referral ID Status Reason Start Date Expiration Date V isits Requested Visits Authorized [id number] Closed Auto-Generate d Referral 03/08/2022 04/07/2023 1 1 Reason Onset Date Comments Refill Request 11/08/2023 Reason Comments Follow Up 6 month Reason Onset Date Comments Population Health Navigation Outreach 12/15/2023 ANTHEM-AWV Reason Onset Date Comments Population Health Navigation Outreach 03/07/2024 [place] [facility] Reason Onset Date [...] section and content) DATE CREATED AUTHOR 06/27/2024 [facility] DATE CREATED AUTHOR AUTHOR'S ORGANIZ ATION 10/27/2024 [facility] DATE CREATED AUTHOR AUTHOR'S CHERIE WEI 04/10/2025 [facility] FOR RECORDS [...] BE BASED ON THE PRIMARY CLINICAL RECORDS. [facility] [employer] [facility]. provides no warranty or guarantee of the accuracy or completeness of information in this document.
[2025-05-28 09:00] LABS: Ammonia 33.0 umol/L (16-60)
[2025-05-28 09:22] LABS: Cholesterol 186 mg/dL (<=200); Low Density Lipoprotein Calc. 116 mg/dL; Triglycerides 143 mg/dL; Very Low Density Lipoprotein 29 mg/dL (5-40); cholesterol:hdl ratio screen 4.21
[2025-05-28 09:54] LABS: AST(SGOT) 23 U/L (<=37); Alanine Aminotransfer ALT/SGPT 12 U/L (<=46); Albumin, Serum 4.4 g/dL (3.4-4.8); Alkaline Phosphatase 65 U/L (40-129); Anion Gap 12 (7-18); BUN 26 mg/dL (4-19); BUN/Creat Ratio 20.8 RATIO (10-20); Calcium,Total 9.5 mg/dL (7.6-11.0); Carbon Dioxide 23.2 mmol/L (20.0-29.0); Chloride 106 mmol/L (96-106); Globulin 2.8 g/dL (2.2-4.2); Glucose 118 mg/dL (70-99); Potassium 4.5 mmol/L (3.5-5.1); Vitamin D,25 Hydroxy 20.4 ng/mL (30-100)
[2025-05-28 09:55] LABS: Vitamin B12 426 pg/mL (180-914)
[2025-06-03 17:07] LABS: KEPPRA (LEVETIRACETAM) 12.4 ug/mL (10.0-40.0); VITAMIN B6 5.3 ug/L (3.4-65.2); Vitamin B1, Thiamine 182.4 nmol/L (66.5-200.0)
== END ==
LOC: OLS.SWAL 05:00
PROVIDERS: PCP Family Medicine; Visit Provider Psychiatry & Neurology Neurology
DX: E11.9 Type 2 diabetes mellitus without complications (principal); G40.909 Epilepsy, unspecified, not intractable, without status epilepticus
CPT/HCPCS: 36415; 80053; 80061; 80177; 82140; 82306; 82607; 84207; 84425; 84443